=== PATIENT | female | born 1980 | race Caucasian/White ===

== ENCOUNTER → 2018-06-14 10:57 | Outpatient (CLI) | payer OTHER, SELFPAY ==
--- NOTE | 2018-06-14 11:03 | DI.RAD.S_ITS ---
PROCEDURE: XR CHEST 2V INDICATIONS: COUGH, WHEEZING, HOARSENESS TECHNIQUE: 2 views of the chest were acquired. COMPARISON: [facility], CHEST 2 VIEW, 04/17/2016, 14:10. [facility], CHEST 2 VIEW, 10/16/2014, 18:47. FINDINGS: Surgical changes and devices: None. Lungs and pleura: Lungs are difficult to accurately assess due to large body habitus but with reference to the older comparison films from several years ago no definite change has developed.. No pleural effusions or pneumothorax. Mediastinum: Mediastinal contours are normal. Heart size is normal. Bones and chest wall: No suspicious bony abnormalities. Soft tissues appear unremarkable. IMPRESSION: Large body habitus, and with reference to prior comparison studies from 2014 and 2016 there has been no definite change. The source of new cough and wheezing is not identified. Dictated by: Jarod Acosta M.D. on 06/14/2018 at 11:52 Approved by: Jardo Acosta M.D. on 06/14/2018 at 12:08
[2018-06-14 11:52] LABS: Add Manual Diff / Slide Review NO; Basophils Absolute Auto 100 /uL (0-100); Basophils Percent Auto 0.6 % (0-2); Eosinophils Absolute Auto 100 /uL (0-450); Eosinophils Percent Auto 1.8 % (2-4); Hematocrit 41.5 % (36-46); Hemoglobin 14.1 g/dL (12.0-16.0); Lymphocytes Absolute Auto 2300 /uL (1100-4500); Lymphocytes Percent Auto 29.7 % (25-40); Mean Corpuscular HGB Conc 33.9 % (30-36); Mean Corpuscular Hemoglobin 28.9 PG (26-34); Mean Corpuscular Volume 85.3 fL (80-100); Monocytes Absolute Auto 600 /uL (0-900); Neutrophils Absolute Auto 4800 /uL (1500-7000); Neutrophils Percent Auto 60.9 % (50-75); Platelet Count 428 X10^3/uL (150-400); Red Blood Cell Count 4.86 X10^6/uL (4.0-5.2); Red Cell Distribution Width 14.1 % (11.6-14.8); White Blood Cell Count 7.9 X10^3/uL (4.5-11.0)
[2018-06-14 12:23] LABS: Erythrocyte Sedimentation Rate 40 MM/HR (0-20)
[2018-06-16 17:54] LABS: Immunoglobulin E 20 kU/L (< 115)
== END ==
PROVIDERS: Family Provider Physician Assistant; PCP Physician Assistant; Visit Provider Physician Assistant Medical
DX: R05 Cough (principal); R06.02 Shortness of breath; R49.0 Dysphonia
CPT/HCPCS: 36415; 71046; 82785; 85025; 85651

== ENCOUNTER → 2018-06-24 08:37 | Outpatient (CLI) | payer OTHER, SELFPAY ==
[2018-06-24 09:51] LABS: Add Manual Diff / Slide Review NO; Basophils Absolute Auto 100 /uL (0-100); Basophils Percent Auto 0.9 % (0-2); Eosinophils Absolute Auto 100 /uL (0-450); Eosinophils Percent Auto 1.8 % (2-4); Hemoglobin 13.9 g/dL (12.0-16.0); Lymphocytes Absolute Auto 2500 /uL (1100-4500); Lymphocytes Percent Auto 34.7 % (25-40); Mean Corpuscular HGB Conc 33.8 % (30-36); Mean Corpuscular Hemoglobin 28.9 PG (26-34); Mean Corpuscular Volume 85.4 fL (80-100); Monocytes Absolute Auto 600 /uL (0-900); Monocytes Percent Auto 7.8 % (3-14); Neutrophils Absolute Auto 4000 /uL (1500-7000); Neutrophils Percent Auto 54.8 % (50-75); Platelet Count 407 X10^3/uL (150-400); Red Cell Distribution Width 13.9 % (11.6-14.8); White Blood Cell Count 7.3 X10^3/uL (4.5-11.0)
[2018-06-24 10:11] LABS: D Dimer < 200 ng/mL (<230)
[2018-06-24 10:12] LABS: Alanine Aminotransferase 25 IU/L (9-52); Albumin 3.9 g/dL (3.5-5.0); Albumin Globulin Ratio 1.1 (1.0-2.8); Alkaline Phosphatase 73 U/L (38-126); Aspartate Aminotransferase 19 IU/L (14-36); BUN Creatinine Ratio 18.3 (6-22); Bilirubin Total 0.7 mg/dL (0.2-1.3); Blood Urea Nitrogen 11 mg/dL (7-17); C-Reactive Protein Quant 1.8 mg/dL (<1.0); Calcium 8.8 mg/dL (8.4-10.2); Carbon Dioxide 27 mmol/L (22-32); Chloride 103 mmol/L (98-107); Estimated Glomerular Filt Rate > 60.0 mL/min (>60); Globulin 3.4 g/dL (1.7-4.1); Glucose 106 mg/dL (70-100); HEMOLYSIS < 15 (0-50); Potassium 3.7 mmol/L (3.4-5.1); Sodium 139 mmol/L (137-145); Total Protein 7.3 g/dL (6.3-8.2)
[2018-06-24 10:13] LABS: Rheumatoid Factor < 8.6 IU/mL (<12.0)
[2018-06-24 10:24] LABS: Erythrocyte Sedimentation Rate 48 MM/HR (0-20)
[2018-06-27 16:12] LABS: ANCA Screen Negative (Negative)
[2018-07-01 20:55] LABS: ANA Pattern Speckled; ANA Screen, IFA Positive (Negative)
== END ==
PROVIDERS: PCP Physician Assistant; Visit Provider Physician Assistant Medical
DX: R06.2 Wheezing (principal); R04.2 Hemoptysis
CPT/HCPCS: 36415; 80053; 85025; 85379; 85651; 86021; 86038; 86140; 86430

== ENCOUNTER → 2018-07-04 07:42 | Outpatient (CLI) | payer OTHER, SELFPAY ==
--- NOTE | 2018-07-04 | DI.CT.S_ITS ---
PROCEDURE: CT CHEST HIGH RESOLUTION INDICATIONS: HEMOPTYSIS TECHNIQUE: Noncontrast 1.0 and 5.0 mm thick contiguous axial sections from the pulmonary apex to the posterior costophrenic angles, with 7 mm thick coronal and sagittal MIP reformats. 1 mm thick dynamic expiratory images acquired through the upper, mid, and lower lungs. 1.0 mm thick axial sections acquired from the miguel to the posterior costophrenic angles in the prone end-inspiration position. For radiation dose reduction, the following was used: automated exposure control, adjustment of mA and/or kV according to patient size. COMPARISON: None. FINDINGS: Image quality: Excellent. Lungs: No groundglass opacities, cysts, nodules, bronchiectasis, or fibrosis. No parenchymal consolidations. Pleura: No pleural effusions or pneumothorax. Mediastinum: Heart size is normal. No pericardial effusion. Thoracic aorta and central pulmonary arteries are normal in size. Esophagus is normal in caliber. Bones and chest wall: No suspicious bony lesions. No vertebral body compression fractures. 1.2 cm circumferentially calcified left thyroid nodule. Abdomen: Visualized upper abdominal solid organs and bowel loops appear normal. IMPRESSION: 1. No evidence of interstitial lung disease. 2. 1.2 cm left thyroid nodule. Dictated by: Digna Alvarenga M.D. on 07/04/2018 at 8:25 Approved by: Digna Alvarenga M.D. on 07/04/2018 at 8:47
== END ==
PROVIDERS: PCP Physician Assistant; Visit Provider Physician Assistant Medical
DX: R04.2 Hemoptysis (principal); E04.1 Nontoxic single thyroid nodule
CPT/HCPCS: 71250

== ENCOUNTER → 2018-11-23 09:21 | Outpatient (CLI) | payer OTHER, SELFPAY ==
[2018-11-23 10:36] LABS: Add Manual Diff / Slide Review NO; Basophils Absolute Auto 0 /uL (0-100); Eosinophils Absolute Auto 100 /uL (0-450); Eosinophils Percent Auto 1.5 % (2-4); Hematocrit 40.5 % (36-46); Hemoglobin 14.1 g/dL (12.0-16.0); Lymphocytes Absolute Auto 1900 /uL (1100-4500); Lymphocytes Percent Auto 29.6 % (25-40); Mean Corpuscular HGB Conc 34.7 % (30-36); Mean Corpuscular Hemoglobin 29.8 PG (26-34); Mean Corpuscular Volume 85.7 fL (80-100); Monocytes Absolute Auto 1100 /uL (0-900); Monocytes Percent Auto 17.1 % (3-14); Neutrophils Absolute Auto 3300 /uL (1500-7000); Neutrophils Percent Auto 51.8 % (50-75); Platelet Count 419 X10^3/uL (150-400); Red Blood Cell Count 4.73 X10^6/uL (4.0-5.2); White Blood Cell Count 6.3 X10^3/uL (4.5-11.0)
[2018-11-23 10:57] LABS: Alanine Aminotransferase 18 IU/L (9-52); Albumin Globulin Ratio 1.1 (1.0-2.8); Alkaline Phosphatase 70 U/L (38-126); Aspartate Aminotransferase 21 IU/L (14-36); Blood Urea Nitrogen 12 mg/dL (7-17); Calcium 8.6 mg/dL (8.4-10.2); Carbon Dioxide 30 mmol/L (22-32); Chloride 101 mmol/L (98-107); Cholesterol 221 mg/dL (140-199); Estimated Glomerular Filt Rate > 60.0 mL/min (>60); Globulin 3.6 g/dL (1.7-4.1); Glucose 102 mg/dL (70-100); HDL Cholesterol 32 mg/dL (40-60); HEMOLYSIS 35 (0-50); LDL Cholesterol Calculated 167 mg/dL (<100); Potassium 4.2 mmol/L (3.4-5.1); Sodium 139 mmol/L (137-145); Total Protein 7.6 g/dL (6.3-8.2); Triglycerides 112 mg/dL (35-150)
[2018-11-23 11:25] LABS: Thyroid Stimulating Hormone 2.83 uIU/mL (0.47-4.68)
[2018-11-23 11:44] LABS: Vitamin B12 306 pg/mL (239-931)
== END ==
PROVIDERS: PCP Physician Assistant; Visit Provider Physician Assistant
DX: R20.2 Paresthesia of skin (principal); R26.9 Unspecified abnormalities of gait and mobility; R29.898 Other symptoms and signs involving the musculoskeletal system; R41.3 Other amnesia
CPT/HCPCS: 36415; 80053; 80061; 82607; 84443; 85025

== ENCOUNTER → 2018-12-26 06:06 | Outpatient (CLI) | payer OTHER, SELFPAY ==
--- NOTE | 2018-12-26 06:07 | DI.MRI.S_ITS ---
PROCEDURE: MR HEAD/BRAIN WO/W CON INDICATIONS: Weakness lower extrem R > L; parasthesias feet; diff w/gait TECHNIQUE: Noncontrast axial T1 spin echo, axial T2 fast spin echo, sagittal and axial FLAIR, coronal T2 fast spin echo, axial gradient echo, axial diffusion and ADC through the brain. After the administration of contrast, axial and coronal 3D VIBE or T1 spin echo with fat saturation through the brain. COMPARISON: None. FINDINGS: Image quality: Excellent. CSF Spaces: Basal cisterns are patent. No extra-axial fluid collections. Ventricles are normal in size and shape. Brain: No midline shift. No intracranial bleeds or masses. No abnormal intracranial enhancement. The brainstem appears normal. Diffusion-weighted images demonstrate no acute ischemic insults. No chronic ischemic insults. Normal intravascular flow voids are present. Skull and face: Calvarial marrow is normal in signal. Orbits appear normal. Bilateral maxillary sinus disease, right greater than left. IMPRESSION: No evidence of acute ischemia. No acute intracranial signal abnormality or enhancement. Bilateral maxillary sinus disease, right greater left. Dictated by: Tee Pichardo M.D. on 12/26/2018 at 8:23 Approved by: Tee Pichardo M.D. on 12/26/2018 at 8:27
== END ==
PROVIDERS: PCP Physician Assistant; Visit Provider Physician Assistant
DX: R20.2 Paresthesia of skin (principal); R26.9 Unspecified abnormalities of gait and mobility; R29.898 Other symptoms and signs involving the musculoskeletal system; R41.3 Other amnesia; J32.0 Chronic maxillary sinusitis
CPT/HCPCS: 70553

== ENCOUNTER → 2019-01-06 08:11 | Outpatient (CLI) | payer OTHER, SELFPAY ==
[2019-01-06 09:36] LABS: Cholesterol 119 mg/dL (140-199); HDL Cholesterol 31 mg/dL (40-60); LDL Cholesterol Calculated 72 mg/dL (<100); Triglycerides 82 mg/dL (35-150)
== END ==
PROVIDERS: PCP Physician Assistant; Visit Provider Physician Assistant
DX: E78.2 Mixed hyperlipidemia (principal)
CPT/HCPCS: 36415; 80061

== ENCOUNTER → 2019-02-22 11:44 | Outpatient (CLI) | payer OTHER, MEDICAID, SELFPAY ==
--- NOTE | 2019-02-22 11:47 | DI.RAD.S_ITS ---
PROCEDURE: XR LUMBAR SPINE 2-3V INDICATIONS: fall, SI joint pain, r/o bony abnormality TECHNIQUE: 3 views of the lumbar spine were acquired. COMPARISON: [facility], , L-SPINE WITHOUT CONTRAST, 02/01/2009, 9:08. FINDINGS: Bones: 5 [id number] vertebrae are present. There is trace retrolithesis of L2 on L3, L3 on L4. Moderate disc space narrowing is present at L4-5, L5-S1. Minimal L5-S1 foraminal narrowing. No vertebral body compression fractures. No suspicious bony lesions. Lucency is noted within the posterior aspect of the spinous process at L2 and L3. Soft tissues: Overlying bowel gas pattern is normal. No suspicious soft tissue calcifications. IMPRESSION: 1. Nondisplaced lucency at the posterior aspect of the spinous process of L2 and L3. This is suspected to be projectional. However, recommend correlation with point tenderness in this region as fracture cannot be definitively excluded given history of trauma. Dictated by: Micheline Stanford M.D. on 02/22/2019 at 11:05 Approved by: Micheline Stanford M.D. on 02/22/2019 at 11:10
== END ==
PROVIDERS: PCP Physician Assistant; Visit Provider Physician Assistant
DX: M54.5 Low back pain (principal); M48.061 Spinal stenosis, lumbar region without neurogenic claudication; M48.07 Spinal stenosis, lumbosacral region
CPT/HCPCS: 72100

== ENCOUNTER → 2019-05-22 10:18 | Outpatient (CLI) | payer OTHER, MEDICAID, SELFPAY | PROVIDERS: PCP Physician Assistant; Referring Provider Internal Medicine; Visit Provider Internal Medicine | DX: G35 Multiple sclerosis (principal) | CPT/HCPCS: 93005; 93010 ==

== ENCOUNTER → 2019-08-18 13:58 | Outpatient (CLI) | payer OTHER, MEDICAID, SELFPAY ==
[2019-08-19 10:08] LABS: Candida species Negative (Negative); Gardnerella vaginalis Negative (Negative); Trichomoas vaginalis Negative (Negative)
== END ==
PROVIDERS: PCP Student in an Organized Health Care Education/Training Program; Visit Provider Obstetrics & Gynecology
DX: N89.8 Other specified noninflammatory disorders of vagina (principal)
CPT/HCPCS: 87480; 87510; 87660

== ENCOUNTER → 2019-09-26 12:21 | Outpatient (CLI) | payer OTHER, MEDICAID, SELFPAY ==
--- NOTE | 2019-09-26 12:29 | DIET.PN ---
Dietary Progress Note Assessment: 38y F referred to nutrition for help managing weight c new onset MS and MS fatigue, pt is wheelchair using. Would like to lose weight to help c self-transferring. Usual Day: Wakes 9-930am waits 1hr to eat- 8oz, british muffin c cream cheese, berries c creamer (coconut milk), slimfast, [place] crunchy granola bar, cranberry juice keeps water nearby all the time (technology time-tv, computer), does food prep walks daily c walker and 45 minutes of exercises Lunch- crackers c cheese, sandwich- lettuce tomato, toasted bread, tuna fish, salmon c miracle whip, cheese and tomato sandwich, occ pb&j, water coffee in afternoon (coffee frappuccino c almond milk) sometimes c oatcakes D: stir scruggs, cabrera c brown rice, hash, dinner salad once per week watch TV snacks: thin dark chocolate cookies 9:30-midnight reads in bed sleeps c CPAP and sleeps well, 8-9 hours per night Has CSA in summer. Pt is adventurous eater, not much emotional eating. Pt keeps [employer] florecita record of food intake. Pt diet is generally healthy c reasonable portions. Diet reliant on carbohydrates c moderate intake F/V and lean protein. Pt exceeding daily limit of 20g added sugar consistently. B/c pt is unsteady on feet and reliant on wheelchair, less opportunity to move body or participate in cardiovascular activity which is complicated by MS fatigue. Pt currently in PT once per week. HT: 5/6 WT: 287# UBW: 280# Weight Goal: 250# BMI: 46.3 Interventions: 1. To support healthy weight and promote weight loss, educated pt on balanced plate using handout. Pt to model proportions with all meals and snacks for natural calorie control. 2. To support healthy weight, promote weight loss, and increase LBM, pt will increase cardiovascular activity daily as tolerated such as wheeling around block, seated workout videos. 3. To support healthy weight and promote weight loss, pt will start monitoring added sugar, trying to limit to no more than 20g per day. 4. To support neurological function for MS, pt will increase intake of healthy fats such as olive and avocado oil, avocados, ying seeds, and ground flaxseed. Monitoring/Evaluations: pt will call for f/u
== END ==
PROVIDERS: PCP Student in an Organized Health Care Education/Training Program; Referring Provider Student in an Organized Health Care Education/Training Program; Visit Provider Student in an Organized Health Care Education/Training Program
DX: G35 Multiple sclerosis (principal); E66.9 Obesity, unspecified; Z68.42 Body mass index [BMI] 45.0-49.9, adult; Z71.3 Dietary counseling and surveillance
CPT/HCPCS: 97802

== ENCOUNTER 2019-10-20 14:15 | Outpatient (RCR) | payer OTHER, MEDICAID, SELFPAY ==
--- NOTE | 2019-04-19 15:33 | PT.OIE ---
Current Diagnoses Multiple sclerosis (04/19/19) Visit Care Team Role Provider Type Alycia Farrar PA-C Primary Care Provider Advanced Cattle Care Worker Specialty: Medical Address: [address] [place] [address], [facility] [address], [place], [address] Email: [email or web address] Rufino Umaña MD Attending Provider Non-Staff Specialty: Psychiatry Address: [address] [place] [address], [facility] [address], [place], [address] Email: Physical Therapy Initial Evaluation PT-OP-A Visit Information Start: 04/19/19 15:25 Freq: Status: Active Protocol: Document 04/19/19 15:30 EG (Rec: 04/19/19 16:03 EG [email or web address]) Out-Patient Physical Therapy Visit Information Visit Information Visit Type Initial Evaluation Visit Note Mother accompanied patient Visit Start Time 10:30 Visit Stop Time 11:15 Total Visit Minutes 45 Visit Number 1 Number of BACK HOE MACHINE OPERATOR Visits 0 Evaluation Information Evaluation Date 04/19/19 Precautions Precautions Fall Risk Sensation Loss in bilateral LE PT-OP-B Current Condition Start: 04/19/19 15:25 Freq: Status: Active Protocol: Document 04/19/19 15:30 EG (Rec: 04/19/19 16:03 EG [email or web address]) Current Condition History of Current Condition Onset Date October 2018 Current Complaints Weakness/Instability with standing/transfers/walking History of Current Condition Patient is a 38 year old female who reports to physical therapy after being diagnosed with Multiple Sclerosis in February 2019. She has c/c of sensation and strength loss in both of her legs. Patient started feeling like she was walking like she was drunk in September of 2018. She started feeling like her legs felt heavy and stairs were starting to scare her at this time. Since then, she has had 2 falls - one in which she hurt her L knee and thought she has fractured her sacrum. Patient has since received an X-ray of this area and is following up with her PCP. She has pain at night from her hips down and at times has spasm in lower extremities. Patient reports that currently she is getting assistance from her aunt and parents but has been moving through the household and community primarily with a wheelchair. She is currently living in a day time basement with no stairs to enter. Patient is concerned about grab bars in the house and is looking at installation. She reports that she is currently showering at parent's house on shower chair. 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 She would like to gain more stability and confidence with her movements. 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 Current Functional Impairments (Reported) Functional Limitations- ADL's Shower chair needed for bathing Sleeping is painful in bilateral LE Functional Limitations- Mobility/Gait Assistance needed for bed mobility Grab bars needed to move in and out of bed Personal Factors Other Personal Factors That May Effect Past Laminectomy Therapy/Recovery BMI >30 Lives alone PT-OP-C Subjective Start: 04/19/19 15:25 Freq: Status: Active Protocol: Document 04/19/19 15:30 EG (Rec: 04/20/19 10:55 EG [email or web address]) Patient Questionnaires ABC- Activity Specific Balance Confidence Scale ABC Score 4.1 ABC Functional Impairment 80 to <100% Impaired (Score 1- 20) OP-PT Pain Assessment Pain Assessment Grid Paper Pain Assessment Grid Completed Yes: L low back pain - 2; L knee and foot - 2 Home Pain Medication Use Pain Medications Used Yes PT-OP-G Mobility & Gait Start: 04/19/19 15:25 Freq: Status: Active Protocol: Document 04/19/19 15:30 EG (Rec: 04/19/19 16:03 EG [email or web address]) OP Mobility Evaluation Bed Mobility Rolling I Supine to and from Sit min A Transfers Sit to Stand CGA Bed to Chair Transfers CGA Wheelchair Management Type of Wheelchair Manual PT-OP-H Neuro Start: 04/19/19 15:25 Freq: Status: Active Protocol: Document 04/19/19 15:30 EG (Rec: 04/19/19 16:03 EG [email or web address]) Sensation Evaluation Gross Sensation Sensation Description Numbness,Coldness,Heaviness Dermatome Impairments L2,L3,L4,L5,S1,S2 Comments Summary Comments Patient was able to feel moderate sensation throughout examination and she was able to correctly describe location of touch but does subjectively describe numbness and decreased sensation. Coordination Evaluation Lower Extremity Tests Right Heel on Castro Test Normal Performance Foot Tapping Test Normal Performance Left Heel on Castro Test Normal Performance Foot Tapping Test Normal Performance Comments Coordination Comments restricted mostly from weakness PT-OP-L Special Tests Start: 04/19/19 15:25 Freq: Status: Active Protocol: Document 04/19/19 15:30 EG (Rec: 04/20/19 07:26 EG [email or web address]) Special Tests Neural Special Tests- Lower Body Clonus Test Results + Comments non-fatiguing clonus on R PT-OP-M Strength Start: 04/19/19 15:25 Freq: Status: Active Protocol: Document 04/19/19 15:30 EG (Rec: 04/20/19 07:26 EG [email or web address]) Hip Strength Hip Manual Muscle Testing Left Flexion (L2) 3 Fair Abduction 4- Good- Adduction 4- Good- Right Flexion (L2) 3- Fair- Abduction 3+ Fair+ Adduction 4- Good- Knee Strength Knee Manual Muscle Testing Left Flexion (S2) 3+ Fair+ Extension (L3) 3 Fair Right Flexion (S2) 3+ Fair+ Extension (L3) 3 Fair Ankle/Foot Strength Ankle and Foot Manual Muscle Testing Right Dorsiflexion (L4) 3+ Fair+ Plantarflexion (S1) 3+ Fair+ Left Dorsiflexion (L4) 3+ Fair+ Plantarflexion (S1) 3+ Fair+ PT-OP-Q Treatments Start: 04/19/19 15:25 Freq: Status: Active Protocol: Document 04/19/19 15:30 EG (Rec: 04/20/19 10:59 EG [email or web address]) Therapeutic Exercises Supine Exercises Lumbar Rotations Supine Exercise Name Supine lumbar rotation Side bilateral Reps/Minutes 15x ea Comments HEP Long arc quad Supine Exercise Name Long arc quad with SLR Side bilateral Equipment Used bolster under knees Reps/Minutes 15x ea Comments HEP Sitting Exercises Seated marches Sitting Exercise Name Seated marches Side bilateral Reps/Minutes 15x each side Comments HEP Plantar/Dorsiflexion Sitting Exercise Name Plantar and Dorsiflexion in seated Side bilateral Reps/Minutes 20x Comments HEP Therapeutic Activity Therapeutic Activity Stand Pivot Transfer Name Stand Pivot Transfer Reps/Minutes 2 Comments Done with CGA PT-OP-T Assessment and Plan Start: 04/19/19 15:25 Freq: Status: Active Protocol: Document 04/19/19 15:30 EG (Rec: 04/20/19 12:26 EG [email or web address]) Physical Therapy Assessment Rehab Potential Rehabilitation Potential Good Evaluation Complexity Number of Personal Factors/Comorbidities 3 or More Number of Body Systems Impaired 4 or More Clinical Presentation at Evaluation Unstable Impairments Impairments Activity Tolerance,Balance, Coordination,Edema,Functional Activities,Functional Mobility ,Gait,Pain,Posture,ROM, Sensation,Strength,Transfers Other Concerns Fall Risk Yes - decreased sensation Barriers to Rehabilitation Medication side effects Goals Four Impairment Gait Short Term Goal (STG) Patient will walk 20 feet in / / bars in 2-4 weeks. STG Duration 2-4 weeks Scrap Hooker Goal (LTG) Patient will walk 100 feet with FWW in 6-8 weeks. LTG Duration 6-8 weeks Three Impairment Balance Short Term Goal (STG) Patient will tax investigator // bars for 3 minutes without loss of balance in 2 weeks. STG Duration 2 weeks Scrap Hooker Goal (LTG) Patient will stand with FWW for 5 minutes without loss of balance in 4-6 weeks. LTG Duration 4-6 weeks Two Impairment Functional Activity Short Term Goal (STG) Patient will move from seated to supine independently with ability to move both legs on to bed with assistance from strap in 3 weeks. STG Duration 3 weeks Scrap Hooker Goal (LTG) Patient will move from seated to supine independently without assistance from external device with ability to swing both legs on to bed with a controlled movement to supine in 5 weeks. LTG Duration 5 weeks. One Impairment Transfers Short Term Goal (STG) Patient will perform stand- pivot transfers independently with 90% confidence from wheelchair to bed in 4 weeks. STG Duration 4 weeks [facility] Goal (LTG) Patient will perform stand- pivot transfer independently with 100% confidence from wheelchair to bed in 6-8 weeks . Assessment Summary Assessment Patient is a 38 year old female with recent diagnosis of MS who presents to physical therapy with decreased LE strength bilaterally, decreased sensation in bilateral LE, and decreased stability with transfers. She is currently using the wheelchair as primary mode of transportation in the community and at home and is just beginning MS medication. Currently, symptom duration and continuity is unknown and will depend on medical intervention. Patient will benefit from strength training , balance training, transfer training, and gait training to help patient move throughout the house safely and with stability. Patient will also benefit from education on arrangements of the home setting to compensate from some loss of function due to the progressive disease. Patient may also need to be educated on orthotic fitting. Physical Therapy Plan Frequency and Duration Frequency of Treatment 2x/Week Duration of Treatment 8-10 weeks Plan of Care Start Date 04/19/19 Plan of Care End Date 06/28/19 Therapeutic Interventions Therapeutic Interventions Aquatic Therapy,Balance Training,Coordination Training ,Gait Training,Home Exercise Program,Neuromuscular Re- education,Orthotic/Prosthetic Management,Patient/Caregiver Education,Self-Care/Home Management,Therapeutic Activities,Therapeutic Exercises,Wheelchair Management Next Visit Focus/Plan Next Note Type Treatment Note Next Visit Plan Next treatment, assess standing and walking in // bars. Increase strength training exercises. Perform transfers from wheelchair to various surfaces. Lubna Gaines DPT, supervised all treatment performed by, and agreed with the plan of care, as performed by Kasia Mills, [facility].
--- NOTE | 2019-04-20 15:36 | PT.OPPOC ---
Physical, Occupational & Speech Therapy At [facility] Current Diagnoses Multiple sclerosis (04/19/19) Muscle weakness (generalized) (04/19/19) History of falling (04/19/19) Visit Care Team Role Provider Type Alycia Farrar PA-C Primary Care Provider Advanced Program Services Planner Specialty: Medical Address: [address] [place] [address], [facility] [address], [place], [address] Email: [email or web address] Rufino Umaña MD Attending Provider Non-Staff Specialty: Psychiatry Address: [address] [place] [address], [facility] [address], [place], [address] Email: Plan Of Care PT-OP-T Assessment and Plan Start: 04/19/19 15:25 Freq: Status: Active Protocol: Document 04/19/19 15:30 EG (Rec: 04/20/19 12:26 EG [email or web address]) Physical Therapy Assessment Rehab Potential Rehabilitation Potential Good Evaluation Complexity Number of Personal Factors/Comorbidities 3 or More Number of Body Systems Impaired 4 or More Clinical Presentation at Evaluation Unstable Impairments Impairments Activity Tolerance,Balance, Coordination,Edema,Functional Activities,Functional Mobility ,Gait,Pain,Posture,ROM, Sensation,Strength,Transfers Other Concerns Fall Risk Yes - decreased sensation Barriers to Rehabilitation Medication side effects Goals Four Impairment Gait Short Term Goal (STG) Patient will walk 20 feet in / / bars in 2-4 weeks. STG Duration 2-4 weeks Residential Nurse Goal (LTG) Patient will walk 100 feet with FWW in 6-8 weeks. LTG Duration 6-8 weeks Three Impairment Balance Short Term Goal (STG) Patient will casting assistant // bars for 3 minutes without loss of balance in 2 weeks. STG Duration 2 weeks Residential Nurse Goal (LTG) Patient will stand with FWW for 5 minutes without loss of balance in 4-6 weeks. LTG Duration 4-6 weeks Two Impairment Functional Activity Short Term Goal (STG) Patient will move from seated to supine independently with ability to move both legs on to bed with assistance from strap in 3 weeks. STG Duration 3 weeks Retirement Goal (LTG) Patient will move from seated to supine independently without assistance from external device with ability to swing both legs on to bed with a controlled movement to supine in 5 weeks. LTG Duration 5 weeks. One Impairment Transfers Short Term Goal (STG) Patient will perform stand- pivot transfers independently with 90% confidence from wheelchair to bed in 4 weeks. STG Duration 4 weeks Retirement Goal (LTG) Patient will perform stand- pivot transfer independently with 100% confidence from wheelchair to bed in 6-8 weeks . Assessment Summary Assessment Patient is a 38 year old female with recent diagnosis of MS who presents to physical therapy with decreased LE strength bilaterally, decreased sensation in bilateral LE, and decreased stability with transfers. She is currently using the wheelchair as primary mode of transportation in the community and at home and is just beginning MS medication. Currently, symptom duration and continuity is unknown and will depend on medical intervention. Patient will benefit from strength training , balance training, transfer training, and gait training to help patient move throughout the house safely and with stability. Patient will also benefit from education on arrangements of the home setting to compensate from some loss of function due to the progressive disease. Patient may also need to be educated on orthotic fitting. Physical Therapy Plan Frequency and Duration Frequency of Treatment 2x/Week Duration of Treatment 8-10 weeks Plan of Care Start Date 04/19/19 Plan of Care End Date 06/28/19 Therapeutic Interventions Therapeutic Interventions Aquatic Therapy,Balance Training,Coordination Training ,Gait Training,Home Exercise Program,Neuromuscular Re- education,Orthotic/Prosthetic Management,Patient/Caregiver Education,Self-Care/Home Management,Therapeutic Activities,Therapeutic Exercises,Wheelchair Management Next Visit Focus/Plan Next Note Type Treatment Note Next Visit Plan Next treatment, assess standing and walking in // bars. Increase strength training exercises. Perform transfers from wheelchair to various surfaces. Plan of Care Dates Plan of Care Start Date 04/19/19 Plan of Care End Date 06/28/19 ILubna DPT, supervised all treatment performed by, and agreed with the plan of care, as performed by [facility] Metzger. Electronically Signed by: Lubna Bazan, PT 04/20/19 [id number] Please Sign and Return: I have reviewed this Plan of Care and certify that the skilled therapy services above are required to meet the patient?s needs. Physician Signature Date Printed Name and Credentials Clinical Instructor Signature Printed Name and Credentials
--- NOTE | 2019-04-21 17:11 | PT.OTN ---
Current Diagnoses Multiple sclerosis (04/21/19) Muscle weakness (generalized) (04/21/19) History of falling (04/21/19) Physical Therapy Treatment Note PT-OP-A Visit Information Start: 04/19/19 15:25 Freq: Status: Active Protocol: Document 04/21/19 16:16 EG (Rec: 04/21/19 16:38 EG [email or web address]) Out-Patient Physical Therapy Visit Information Visit Information Visit Type Treatment Note Visit Start Time 13:00 Visit Stop Time 13:45 Total Visit Minutes 45 Visit Number 2 Number of METER/RELAY CRAFTSMAN Visits 0 PT-OP-B Current Condition Start: 04/19/19 15:25 Freq: Status: Active Protocol: Document 04/19/19 15:30 EG (Rec: 04/19/19 16:03 EG [email or web address]) Current Condition History of Current Condition Onset Date October 2018 Current Complaints Weakness/Instability with standing/transfers/walking History of Current Condition Patient is a 38 year old female who reports to physical therapy after being diagnosed with Multiple Sclerosis in February 2019. She has c/c of sensation and strength loss in both of her legs. Patient started feeling like she was walking like she was drunk in September of 2018. She started feeling like her legs felt heavy and stairs were starting to scare her at this time. Since then, she has had 2 falls - one in which she hurt her L knee and thought she has fractured her sacrum. Patient has since recieved an X-ray of this area and is following up with her PCP. She has pain at night from her hips down and at times has spasm in lower extremities. Patient reports that currently she is getting assistance from her aunt and parents but has been moving through the household and community primarily with a wheelchair. She is currently living in a day time basement with no stairs to enter. Patient is concerned about grab bars in the house and is looking at installation. She reports that she is currently showering at parent's house on shower chair. 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 She would like to gain more stability and confidence with her movements. 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 Current Functional Impairments (Reported) Functional Limitations- ADL's Shower chair needed for bathing Sleeping is painful in bilateral LE Functional Limitations- Mobility/Gait Assistance needed for bed mobility Grab bars needed to move in and out of bed Personal Factors Other Personal Factors That May Effect Past Laminectomy Therapy/Recovery BMI >30 Lives alone PT-OP-C Subjective Start: 04/19/19 15:25 Freq: Status: Active Protocol: Document 04/21/19 16:16 EG (Rec: 04/21/19 16:38 EG [email or web address]) OP-PT Subjective Patient Comments Patient Comments Patient reported that yesterday she was moving from the bathroom to her bed in her FWW with her aunt and she fell to the ground because her legs gave out and her arms could not support her anymore. She was able to crawl to the bed and pull herself up but did not do anymore of her exercises. The patient also reported that she was going to a play [employer] but was staying at her parents house because she will be able to use the wheelchair in to the bathroom which will be nice because she thinks that she will be tired after PT today. Patient Reported Progress Same PT-OP-G Mobility & Gait Start: 04/19/19 15:25 Freq: Status: Active Protocol: Document 04/19/19 15:30 EG (Rec: 04/19/19 16:03 EG [email or web address]) OP Mobility Evaluation Bed Mobility Rolling I Supine to and from Sit min A Transfers Sit to Stand CGA Bed to Chair Transfers CGA Wheelchair Management Type of Wheelchair Manual PT-OP-H Neuro Start: 04/19/19 15:25 Freq: Status: Active Protocol: Document 04/21/19 16:16 EG (Rec: 04/21/19 16:43 EG [email or web address]) Sensation Evaluation Gross Sensation Gross Sensation Left LE Impaired,Right LE Impaired Dermatome Impairments L4,L5,S1 Comments Summary Comments patient could not feel monofilament on bilateral feet throughout L4-S1. Patient did not have proprioceptive awareness of bilateral Great toe when passively flexed or extended. PT-OP-L Special Tests Start: 04/19/19 15:25 Freq: Status: Active Protocol: Document 04/19/19 15:30 EG (Rec: 04/20/19 07:26 EG [email or web address]) Special Tests Neural Special Tests- Lower Body Clonus Test Results + Comments non-fatiguing clonus on R PT-OP-M Strength Start: 04/19/19 15:25 Freq: Status: Active Protocol: Document 04/19/19 15:30 EG (Rec: 04/20/19 07:26 EG [email or web address]) Hip Strength Hip Manual Muscle Testing Left Flexion (L2) 3 Fair Abduction 4- Good- Adduction 4- Good- Right Flexion (L2) 3- Fair- Abduction 3+ Fair+ Adduction 4- Good- Knee Strength Knee Manual Muscle Testing Left Flexion (S2) 3+ Fair+ Extension (L3) 3 Fair Right Flexion (S2) 3+ Fair+ Extension (L3) 3 Fair Ankle/Foot Strength Ankle and Foot Manual Muscle Testing Right Dorsiflexion (L4) 3+ Fair+ Plantarflexion (S1) 3+ Fair+ Left Dorsiflexion (L4) 3+ Fair+ Plantarflexion (S1) 3+ Fair+ PT-OP-Q Treatments Start: 04/19/19 15:25 Freq: Status: Active Protocol: Document 04/21/19 16:16 EG (Rec: 04/21/19 16:38 EG [email or web address]) Therapeutic Exercises Sitting Exercises Scapular Retractions Sitting Exercise Name Scapular Retraction Reps/Minutes 10x knee extension Sitting Exercise Name Seated knee extension Side bilateral Resistance manual Reps/Minutes 5x each side Comments L weaker than R Plantar/Dorsiflexion Sitting Exercise Name Plantar and Dorsiflexion in seated Side bilateral Reps/Minutes 20x Comments HEP Therapeutic Activity Therapeutic Activity Standing Balance Name Standing Balance in // bars Reps/Minutes 20 sec 5x Comments Held on to // bars with standing. Gait belt used with WC behind patient. multiple bouts of knees giving out while standing. Sit to solid center winder // Bars Name Sit to solid center winder // Bars Reps/Minutes 5x Comments Pushed off wheelchair arms and held on to // bars when standing. Gait Training Gait Activity Walking in // Bars Description 5 steps in // bars Device Used // bars Level of Assistance CGA Distance/Duration 3 feet Treatment Focus Assessment of balance of gait in // bars Comments WC behind - gait belt on. Arm fatigue with bilateral knees buckling PT-OP-T Assessment and Plan Start: 04/19/19 15:25 Freq: Status: Active Protocol: Document 04/21/19 16:16 EG (Rec: 04/21/19 16:38 EG [email or web address]) Physical Therapy Assessment Assessment Summary Assessment Patient's symptoms are similar to assessment and strength in legs have not progressed. Proprioception was assessed and was poor with patient not having ability to recognize great toe location in space. Monofilament testing was also done and patient did have decreased sensation in bilateral feet. Patient does have significant stength difference in R leg compared to L leg. Continual seated strengthening should be done to help with stability when standing. patient puts significant weight through arms when standing in // bars and should work on stability and balance before progressing to walking with FWW. patient should continue to work on transfers and education on modifications at home until symptoms are taken care of medically. Patient did bring in FWW and this was too short for her. Patient was educated on correct height of FWW. Physical Therapy Plan Next Visit Focus/Plan Next Note Type Treatment Note Next Visit Plan LE strengthening. Standing balance in // bars. Transfer training. Education on home modifications. Lubna Gaines DPT, supervised all treatment performed by, and agreed with the plan of care, as performed by [facility].
--- NOTE | 2019-04-26 16:32 | PT.OTN ---
Current Diagnoses Multiple sclerosis (04/26/19) Muscle weakness (generalized) (04/26/19) History of falling (04/26/19) Physical Therapy Treatment Note PT-OP-A Visit Information Start: 04/19/19 15:25 Freq: Status: Active Protocol: Document 04/26/19 14:54 EG (Rec: 04/26/19 15:07 EG [email or web address]) Out-Patient Physical Therapy Visit Information Visit Information Visit Type Treatment Note Visit Start Time 10:30 Visit Stop Time 11:15 Total Visit Minutes 45 Visit Number 3 Number of SCREENER AND BLENDER Visits 0 PT-OP-B Current Condition Start: 04/19/19 15:25 Freq: Status: Active Protocol: Document 04/19/19 15:30 EG (Rec: 04/19/19 16:03 EG [email or web address]) Current Condition History of Current Condition Onset Date October 2018 Current Complaints Weakness/Instability with standing/transfers/walking History of Current Condition Patient is a 38 year old female who reports to physical therapy after being diagnosed with Multiple Sclerosis in February 2019. She has c/c of sensation and strength loss in both of her legs. Patient started feeling like she was walking like she was drunk in September of 2018. She started feeling like her legs felt heavy and stairs were starting to scare her at this time. Since then, she has had 2 falls - one in which she hurt her L knee and thought she has fractured her sacrum. Patient has since recieved an X-ray of this area and is following up with her PCP. She has pain at night from her hips down and at times has spasm in lower extremities. Patient reports that currently she is getting assistance from her aunt and parents but has been moving through the household and community primarily with a wheelchair. She is currently living in a day time basement with no stairs to enter. Patient is concerned about grab bars in the house and is looking at installation. She reports that she is currently showering at parent's house on shower chair. 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 She would like to gain more stability and confidence with her movements. 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 Current Functional Impairments (Reported) Functional Limitations- ADL's Shower chair needed for bathing Sleeping is painful in bilateral LE Functional Limitations- Mobility/Gait Assistance needed for bed mobility Grab bars needed to move in and out of bed Personal Factors Other Personal Factors That May Effect Past Laminectomy Therapy/Recovery BMI >30 Lives alone PT-OP-C Subjective Start: 04/19/19 15:25 Freq: Status: Active Protocol: Document 04/26/19 14:54 EG (Rec: 04/26/19 15:07 EG [email or web address]) OP-PT Subjective Patient Comments Patient Comments Patient reported that she has not started her medication yet because she has to make an appointment with the Neuro Opthamologist to get her vision checked and has to go to get an EKG with another MD to take the medication there before starting on the medication to monitor the reaction of her heart rate after taking the medication. Patient felt tired after last PT session and was feeling slightly tired today. Patient was given new FWW which she felt was much more supportive after practicing standing with it. PT-OP-G Mobility & Gait Start: 04/19/19 15:25 Freq: Status: Active Protocol: Document 04/19/19 15:30 EG (Rec: 04/19/19 16:03 EG [email or web address]) OP Mobility Evaluation Bed Mobility Rolling I Supine to and from Sit min A Transfers Sit to Stand CGA Bed to Chair Transfers CGA Wheelchair Management Type of Wheelchair Manual PT-OP-H Neuro Start: 04/19/19 15:25 Freq: Status: Active Protocol: Document 04/21/19 16:16 EG (Rec: 04/21/19 16:43 EG [email or web address]) Sensation Evaluation Gross Sensation Gross Sensation Left LE Impaired,Right LE Impaired Dermatome Impairments L4,L5,S1 Comments Summary Comments patient could not feel monofilament on bilateral feet throughout L4-S1. Patient did not have proprioceptive awareness of bilateral Great toe when passively flexed or extended. PT-OP-L Special Tests Start: 04/19/19 15:25 Freq: Status: Active Protocol: Document 04/19/19 15:30 EG (Rec: 04/20/19 07:26 EG [email or web address]) Special Tests Neural Special Tests- Lower Body Clonus Test Results + Comments non-fatiguing clonus on R PT-OP-M Strength Start: 04/19/19 15:25 Freq: Status: Active Protocol: Document 04/19/19 15:30 EG (Rec: 04/20/19 07:26 EG [email or web address]) Hip Strength Hip Manual Muscle Testing Left Flexion (L2) 3 Fair Abduction 4- Good- Adduction 4- Good- Right Flexion (L2) 3- Fair- Abduction 3+ Fair+ Adduction 4- Good- Knee Strength Knee Manual Muscle Testing Left Flexion (S2) 3+ Fair+ Extension (L3) 3 Fair Right Flexion (S2) 3+ Fair+ Extension (L3) 3 Fair Ankle/Foot Strength Ankle and Foot Manual Muscle Testing Right Dorsiflexion (L4) 3+ Fair+ Plantarflexion (S1) 3+ Fair+ Left Dorsiflexion (L4) 3+ Fair+ Plantarflexion (S1) 3+ Fair+ PT-OP-Q Treatments Start: 04/19/19 15:25 Freq: Status: Active Protocol: Document 04/26/19 14:54 EG (Rec: 04/26/19 15:07 EG [email or web address]) Therapeutic Exercises Sitting Exercises Hamstring Curl Sitting Exercise Name Hamstring Curl Side bilateral Equipment Used Level 3 Reps/Minutes 10x knee extension Sitting Exercise Name Seated knee extension Side bilateral Reps/Minutes 10x each side Comments R slightly sronger and more controlled today Plantar/Dorsiflexion Sitting Exercise Name Plantar and Dorsiflexion in seated Side bilateral Reps/Minutes 10x Comments HEP Other Exercises Theracane Introduction Other Exercise Name Self massage with theracane Reps/Minutes 2 min Comments Intro to theracane for shoulders Therapeutic Activity Therapeutic Activity Sit to Stand with FWW Name STS with FWW Reps/Minutes 5x Comments Gait belt on with W/C behind. Deep breaths in standing. Gait Training Gait Activity Weight shift in // bars Description Weight shift in // bars Device Used // bars Level of Assistance min A Surface carpet Treatment Focus proprioception Comments step fwd and step back 5x each leg. Work on lifting toe and placing foot accurately. Walking with FWW Description Walking with FWW Device Used FWW Level of Assistance min A Surface carpet Distance/Duration 4x10 feet Treatment Focus stability and safety with new FWW Comments pt bathroom about 10 feet away from bed. Worked on walking this distance multiple times to increase strength. pt felt like legs were going to give out at the end of each walk. PT-OP-T Assessment and Plan Start: 04/19/19 15:25 Freq: Status: Active Protocol: Document 04/26/19 14:54 EG (Rec: 04/26/19 15:07 EG [email or web address]) Physical Therapy Assessment Assessment Summary Assessment Patient continues to have weakness in bilateral LE and inability to know where LE is in space. Patient's new FWW does fit her musch better and patient feels safer walking in this to her bathroom. Continual LE strengthening should be done to increase distance patient can walk without losing stability in the legs. Proprioception training should also be continued to increase patient' s awareness of LE when walking and taking steps. Physical Therapy Plan Next Visit Focus/Plan Next Note Type Treatment Note Next Visit Plan Standing balance in // bars with weight shift and continual practice of bringing one leg forward and back. Possibly step over hurdles and back to make sure leg is going high enough. Continue practice walking with FWW. ILubna DPT, supervised all treatment performed by, and agreed with the plan of care, as performed by Kasia Mills, [facility].
--- NOTE | 2019-04-28 16:37 | PT.OTN ---
Current Diagnoses Multiple sclerosis (04/28/19) Muscle weakness (generalized) (04/28/19) History of falling (04/28/19) Physical Therapy Treatment Note PT-OP-A Visit Information Start: 04/19/19 15:25 Freq: Status: Active Protocol: Document 04/28/19 15:47 EG (Rec: 04/28/19 16:00 EG [email or web address]) Out-Patient Physical Therapy Visit Information Visit Information Visit Type Treatment Note Visit Start Time 14:30 Visit Stop Time 15:15 Total Visit Minutes 45 Visit Number 4 Number of IT PROGRAMMER ANALYST Visits 0 PT-OP-B Current Condition Start: 04/19/19 15:25 Freq: Status: Active Protocol: Document 04/19/19 15:30 EG (Rec: 04/19/19 16:03 EG [email or web address]) Current Condition History of Current Condition Onset Date October 2018 Current Complaints Weakness/Instability with standing/transfers/walking History of Current Condition Patient is a 38 year old female who reports to physical therapy after being diagnosed with Multiple Sclerosis in February 2019. She has c/c of sensation and strength loss in both of her legs. Patient started feeling like she was walking like she was drunk in September of 2018. She started feeling like her legs felt heavy and stairs were starting to scare her at this time. Since then, she has had 2 falls - one in which she hurt her L knee and thought she has fractured her sacrum. Patient has since recieved an X-ray of this area and is following up with her PCP. She has pain at night from her hips down and at times has spasm in lower extremities. Patient reports that currently she is getting assistance from her aunt and parents but has been moving through the household and community primarily with a wheelchair. She is currently living in a day time basement with no stairs to enter. Patient is concerned about grab bars in the house and is looking at installation. She reports that she is currently showering at parent's house on shower chair. 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 She would like to gain more stability and confidence with her movements. 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 Current Functional Impairments (Reported) Functional Limitations- ADL's Shower chair needed for bathing Sleeping is painful in bilateral LE Functional Limitations- Mobility/Gait Assistance needed for bed mobility Grab bars needed to move in and out of bed Personal Factors Other Personal Factors That May Effect Past Laminectomy Therapy/Recovery BMI >30 Lives alone PT-OP-C Subjective Start: 04/19/19 15:25 Freq: Status: Active Protocol: Document 04/28/19 15:47 EG (Rec: 04/28/19 16:00 EG [email or web address]) OP-PT Subjective Patient Comments Patient Comments Patient reported that she was very tired and drained after last PT appointment. This lasted until ricco next day. Patient also reported that she is worried she has sprained her R ankle and that she thinks it is constantly rolling when she places weight through it during transfers at home. Patient said she was not able to make appointment with the Neuro Opthamologist until the end of May but she is on the wait list. She is wondering if putting PT to 1x/ week would be best until she can progress medically. PT-OP-G Mobility & Gait Start: 04/19/19 15:25 Freq: Status: Active Protocol: Document 04/19/19 15:30 EG (Rec: 04/19/19 16:03 EG [email or web address]) OP Mobility Evaluation Bed Mobility Rolling I Supine to and from Sit min A Transfers Sit to Stand CGA Bed to Chair Transfers CGA Wheelchair Management Type of Wheelchair Manual PT-OP-H Neuro Start: 04/19/19 15:25 Freq: Status: Active Protocol: Document 04/21/19 16:16 EG (Rec: 04/21/19 16:43 EG [email or web address]) Sensation Evaluation Gross Sensation Gross Sensation Left LE Impaired,Right LE Impaired Dermatome Impairments L4,L5,S1 Comments Summary Comments patient could not feel monofilament on bilateral feet throughout L4-S1. Patient did not have proprioceptive awareness of bilateral Great toe when passively flexed or extended. PT-OP-L Special Tests Start: 04/19/19 15:25 Freq: Status: Active Protocol: Document 04/19/19 15:30 EG (Rec: 04/20/19 07:26 EG [email or web address]) Special Tests Neural Special Tests- Lower Body Clonus Test Results + Comments non-fatiguing clonus on R PT-OP-M Strength Start: 04/19/19 15:25 Freq: Status: Active Protocol: Document 04/19/19 15:30 EG (Rec: 04/20/19 07:26 EG [email or web address]) Hip Strength Hip Manual Muscle Testing Left Flexion (L2) 3 Fair Abduction 4- Good- Adduction 4- Good- Right Flexion (L2) 3- Fair- Abduction 3+ Fair+ Adduction 4- Good- Knee Strength Knee Manual Muscle Testing Left Flexion (S2) 3+ Fair+ Extension (L3) 3 Fair Right Flexion (S2) 3+ Fair+ Extension (L3) 3 Fair Ankle/Foot Strength Ankle and Foot Manual Muscle Testing Right Dorsiflexion (L4) 3+ Fair+ Plantarflexion (S1) 3+ Fair+ Left Dorsiflexion (L4) 3+ Fair+ Plantarflexion (S1) 3+ Fair+ PT-OP-Q Treatments Start: 04/19/19 15:25 Freq: Status: Active Protocol: Document 04/28/19 15:47 EG (Rec: 04/28/19 16:00 EG [email or web address]) Therapeutic Exercises Supine Exercises Hooklying Abduction/Adduction Supine Exercise Name Unilateral hooklying abduction /adduction Side bilateral Reps/Minutes 5x each way each leg Comments taps to activate muscle Sitting Exercises Wrist flexion and extension stretch Sitting Exercise Name wrist flexion and extension stretch Reps/Minutes hold for 30 seconds Shoulder and Wrist Rolls Reps/Minutes 5x Lumbar ROM Sitting Exercise Name flexion, extension, lateral flexion, rotation (lumbar and cervical) Reps/Minutes move with breath; 5x each way Comments sustained hold with lateral flexion and rotation Manual Therapy Treatment Manual Techniques Soft tissue lengthening PROM Type PROM hamstring/hip flexion/ lumbar rotation Reps/Duration hold for 60-90 seconds PT-OP-T Assessment and Plan Start: 04/19/19 15:25 Freq: Status: Active Protocol: Document 04/28/19 15:47 EG (Rec: 04/28/19 16:00 EG [email or web address]) Physical Therapy Assessment Assessment Summary Assessment Patient continues to have lower extremity weakness that seems to be progressing on the R side. Patient fatigues very quickly and therapeutic exercise and gait training should be scaled back. Patient will progress to 1x/week to maintain energy conservation throughout the week until medically stable. Important to continue to assess ankle stability and progression of symptoms to consider an AFO for the patient. Physical Therapy Plan Next Visit Focus/Plan Next Note Type Treatment Note Next Visit Plan Standing balance in // bars with weight shift and continual practice of bringing one leg forward and back. Possibly step over hurdles and back to make sure leg is going high enough. Continue practice walking with FWW as energy tolerates
--- NOTE | 2019-05-05 13:00 | PT.OTN ---
Current Diagnoses Multiple sclerosis (05/05/19) Muscle weakness (generalized) (05/05/19) History of falling (05/05/19) Physical Therapy Treatment Note PT-OP-A Visit Information Start: 04/19/19 15:25 Freq: Status: Active Protocol: Document 05/05/19 12:14 SP (Rec: 05/05/19 13:44 SP [id number]) Out-Patient Physical Therapy Visit Information Visit Information Visit Type Treatment Note Visit Start Time 12:15 Visit Stop Time 13:00 Total Visit Minutes 45 Visit Number 5 Number of IN FLIGHT REFUELING OPERATOR Visits 1 PT-OP-B Current Condition Start: 04/19/19 15:25 Freq: Status: Active Protocol: Document 04/19/19 15:30 EG (Rec: 04/19/19 16:03 EG [email or web address]) Current Condition History of Current Condition Onset Date October 2018 Current Complaints Weakness/Instability with standing/transfers/walking History of Current Condition Patient is a 38 year old female who reports to physical therapy after being diagnosed with Multiple Sclerosis in February 2019. She has c/c of sensation and strength loss in both of her legs. Patient started feeling like she was walking like she was drunk in September of 2018. She started feeling like her legs felt heavy and stairs were starting to scare her at this time. Since then, she has had 2 falls - one in which she hurt her L knee and thought she has fractured her sacrum. Patient has since recieved an X-ray of this area and is following up with her PCP. She has pain at night from her hips down and at times has spasm in lower extremities. Patient reports that currently she is getting assistance from her aunt and parents but has been moving through the household and community primarily with a wheelchair. She is currently living in a day time basement with no stairs to enter. Patient is concerned about grab bars in the house and is looking at installation. She reports that she is currently showering at parent's house on shower chair. 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 She would like to gain more stability and confidence with her movements. 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 Current Functional Impairments (Reported) Functional Limitations- ADL's Shower chair needed for bathing Sleeping is painful in bilateral LE Functional Limitations- Mobility/Gait Assistance needed for bed mobility Grab bars needed to move in and out of bed Personal Factors Other Personal Factors That May Effect Past Laminectomy Therapy/Recovery BMI >30 Lives alone PT-OP-C Subjective Start: 04/19/19 15:25 Freq: Status: Active Protocol: Document 05/05/19 12:14 SP (Rec: 05/05/19 13:44 SP [id number]) OP-PT Subjective Patient Comments Patient Comments Pt stated compliant with HEP supine and sitting exercises and sit to stands at corner of kitchen counter front and w/c parked behind for safety like does in PT(loaned from [employer]). Pt stated she was walking out of bathroom early last week (mon or ) with FWW and realized parked w /c to close to doorway and had a hardtimes getting around and LEs gave way but was able to safely sliding down wall to the floor needed to call forensic accountant to help her get back in the chair. PT-OP-G Mobility & Gait Start: 04/19/19 15:25 Freq: Status: Active Protocol: Document 04/19/19 15:30 EG (Rec: 04/19/19 16:03 EG [email or web address]) OP Mobility Evaluation Bed Mobility Rolling I Supine to and from Sit min A Transfers Sit to Stand CGA Bed to Chair Transfers CGA Wheelchair Management Type of Wheelchair Manual PT-OP-H Neuro Start: 04/19/19 15:25 Freq: Status: Active Protocol: Document 04/21/19 16:16 EG (Rec: 04/21/19 16:43 EG [email or web address]) Sensation Evaluation Gross Sensation Gross Sensation Left LE Impaired,Right LE Impaired Dermatome Impairments L4,L5,S1 Comments Summary Comments patient could not feel monofilament on bilateral feet throughout L4-S1. Patient did not have proprioceptive awareness of bilateral Great toe when passively flexed or extended. PT-OP-L Special Tests Start: 04/19/19 15:25 Freq: Status: Active Protocol: Document 04/19/19 15:30 EG (Rec: 04/20/19 07:26 EG [email or web address]) Special Tests Neural Special Tests- Lower Body Clonus Test Results + Comments non-fatiguing clonus on R PT-OP-M Strength Start: 04/19/19 15:25 Freq: Status: Active Protocol: Document 04/19/19 15:30 EG (Rec: 04/20/19 07:26 EG [email or web address]) Hip Strength Hip Manual Muscle Testing Left Flexion (L2) 3 Fair Abduction 4- Good- Adduction 4- Good- Right Flexion (L2) 3- Fair- Abduction 3+ Fair+ Adduction 4- Good- Knee Strength Knee Manual Muscle Testing Left Flexion (S2) 3+ Fair+ Extension (L3) 3 Fair Right Flexion (S2) 3+ Fair+ Extension (L3) 3 Fair Ankle/Foot Strength Ankle and Foot Manual Muscle Testing Right Dorsiflexion (L4) 3+ Fair+ Plantarflexion (S1) 3+ Fair+ Left Dorsiflexion (L4) 3+ Fair+ Plantarflexion (S1) 3+ Fair+ PT-OP-Q Treatments Start: 04/19/19 15:25 Freq: Status: Active Protocol: Document 05/05/19 12:14 SP (Rec: 05/05/19 13:44 SP [id number]) Therapeutic Exercises Supine Exercises HS stretch Side bilateral Resistance manual Reps/Minutes 20 sec x2 Hooklying Abduction/Adduction Supine Exercise Name Unilateral hooklying abduction /adduction Side bilateral Reps/Minutes 5x each way each leg Comments taps to activate muscle, assisted Keep stationary leg support for other mov Lumbar Rotations Supine Exercise Name Supine lumbar rotation Side bilateral Reps/Minutes 15x ea Comments HEP Long arc quad Supine Exercise Name Long arc quad with SLR Side bilateral Equipment Used bolster under knees Reps/Minutes 15x ea Comments HEP Sitting Exercises hip abd TB Resistance L 1 TB Reps/Minutes 2x10 Comments slow pacing control concentric/eccentric hip add Resistance small ball Reps/Minutes 5 sec hold x10 knee extension Sitting Exercise Name Seated knee extension Side bilateral Reps/Minutes 10x each side Comments R slightly stronger and more controlled today Seated marches Sitting Exercise Name Seated marches Side bilateral Reps/Minutes 15x each side Comments HEP Plantar/Dorsiflexion Sitting Exercise Name Plantar and Dorsiflexion in seated (HRTR) Side bilateral Reps/Minutes 10x Comments HEP Therapeutic Activity Therapeutic Activity Standing Balance Name Standing Balance in // bars Reps/Minutes x3 Comments Brief hands hover // bars WBOS and contact with standing. Gait belt used with WC behind patient. multiple bouts of unsteadiness but knees not buckling while standing today. Sit to casket inspector // Bars Name Sit to casket inspector // Bars Reps/Minutes 5x Comments Pushed off wheelchair arms and held on to // bars when standing. Stand Pivot Transfer Name Stand Pivot Transfer Reps/Minutes 2 Comments Done with SBA Gait Training Gait Activity Weight shift in // bars Description Weight shift in // bars Device Used // bars, gait belt Level of Assistance CG- min A Surface carpet Treatment Focus proprioception Comments step fwd and step back 5x each leg. Work on lifting toe and placing foot accurately. Walking in // Bars Description foward/backward full length // bars Device Used // bars w/ w/c follow Level of Assistance CGA Distance/Duration 10 ft x2 sets (seated rest between) Treatment Focus Assessment of balance of gait in // bars Comments WC behind- BLE unsteady, L knee buckled end of 2nd set PT-OP-T Assessment and Plan Start: 04/19/19 15:25 Freq: Status: Active Protocol: Document 05/05/19 12:14 SP (Rec: 05/05/19 13:44 SP [id number]) Physical Therapy Assessment Goals Four Impairment Gait Short Term Goal (STG) Patient will walk 20 feet in / / bars in 2-4 weeks. STG Duration 2-4 weeks Penitentiary Goal (LTG) Patient will walk 100 feet with FWW in 6-8 weeks. LTG Duration 6-8 weeks Three Impairment Balance Short Term Goal (STG) Patient will shoemaking finisher // bars for 3 minutes without loss of balance in 2 weeks. STG Duration 2 weeks Networking Technology Instructor Goal (LTG) Patient will stand with FWW for 5 minutes without loss of balance in 4-6 weeks. LTG Duration 4-6 weeks Two Impairment Functional Activity Short Term Goal (STG) Patient will move from seated to supine independently with ability to move both legs on to bed with assistance from strap in 3 weeks. STG Duration 3 weeks Networking Technology Instructor Goal (LTG) Patient will move from seated to supine independently without assistance from external device with ability to swing both legs on to bed with a controlled movement to supine in 5 weeks. LTG Duration 5 weeks. One Impairment Transfers Short Term Goal (STG) Patient will perform stand- pivot transfers independently with 90% confidence from wheelchair to bed in 4 weeks. STG Duration 4 weeks Networking Technology Instructor Goal (LTG) Patient will perform stand- pivot transfer independently with 100% confidence from wheelchair to bed in 6-8 weeks . Assessment Summary Assessment Pt improved in standing tolerance today, was able to stand with briefly with no contact //bars WBOS then contact little longer (did not time), and walk full length of //bars foward/backward (w/c followed by family member). Added hip add with ball and hip abd with TB for assist in strengthening to HEP. Pt had good tolerance to tx and was pleased able to do more today and added exercises in sitting . Physical Therapy Plan Frequency and Duration Frequency of Treatment 2x/Week Duration of Treatment 8-10 weeks Plan of Care Start Date 04/19/19 Plan of Care End Date 06/28/19 Therapeutic Interventions Therapeutic Interventions Aquatic Therapy,Balance Training,Coordination Training ,Gait Training,Home Exercise Program,Neuromuscular Re- education,Orthotic/Prosthetic Management,Patient/Caregiver Education,Self-Care/Home Management,Therapeutic Activities,Therapeutic Exercises,Wheelchair Management Next Visit Focus/Plan Next Note Type Treatment Note Next Visit Plan Assess added HEP hip add, abd resistance, continue gait in //bars and use of FWW. Continue per PT POC: Standing balance in // bars with weight shift and continual practice of bringing one leg forward and back. Possibly step over hurdles and back to make sure leg is going high enough. Continue practice walking with FWW as energy tolerates
--- NOTE | 2019-05-17 16:32 | PT.OTN ---
Current Diagnoses Multiple sclerosis (05/17/19) Muscle weakness (generalized) (05/17/19) History of falling (05/17/19) Physical Therapy Treatment Note PT-OP-A Visit Information Start: 04/19/19 15:25 Freq: Status: Active Protocol: Document 05/17/19 10:30 EG (Rec: 05/17/19 16:21 EG [id number]) Out-Patient Physical Therapy Visit Information Visit Information Visit Type Treatment Note Visit Start Time 10:30 Visit Stop Time 11:15 Total Visit Minutes 45 Visit Number 6 Number of HIGHER EDUCATION ADMINISTRATOR Visits 0 PT-OP-B Current Condition Start: 04/19/19 15:25 Freq: Status: Active Protocol: Document 04/19/19 15:30 EG (Rec: 04/19/19 16:03 EG [email or web address]) Current Condition History of Current Condition Onset Date October 2018 Current Complaints Weakness/Instability with standing/transfers/walking History of Current Condition Patient is a 38 year old female who reports to physical therapy after being diagnosed with Multiple Sclerosis in February 2019. She has c/c of sensation and strength loss in both of her legs. Patient started feeling like she was walking like she was drunk in September of 2018. She started feeling like her legs felt heavy and stairs were starting to scare her at this time. Since then, she has had 2 falls - one in which she hurt her L knee and thought she has fractured her sacrum. Patient has since recieved an X-ray of this area and is following up with her PCP. She has pain at night from her hips down and at times has spasm in lower extremities. Patient reports that currently she is getting assistance from her aunt and parents but has been moving through the household and community primarily with a wheelchair. She is currently living in a day time basement with no stairs to enter. Patient is concerned about grab bars in the house and is looking at installation. She reports that she is currently showering at parent's house on shower chair. 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 She would like to gain more stability and confidence with her movements. 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 Current Functional Impairments (Reported) Functional Limitations- ADL's Shower chair needed for bathing Sleeping is painful in bilateral LE Functional Limitations- Mobility/Gait Assistance needed for bed mobility Grab bars needed to move in and out of bed Personal Factors Other Personal Factors That May Effect Past Laminectomy Therapy/Recovery BMI >30 Lives alone PT-OP-C Subjective Start: 04/19/19 15:25 Freq: Status: Active Protocol: Document 05/17/19 10:30 EG (Rec: 05/17/19 16:21 EG [id number]) OP-PT Subjective Patient Comments Patient Comments Patient stated that she feels like her plantar/dorsiflexion is getting weaker. She has also felt like her R LE is beginning to shake a little more without control. She did have her Neuro-Opthamoloist appointment and is currently waiting for her medications to come in - should be this week . Patient was not able to do the band exercise with hip abduction due to not having the strap. PT-OP-G Mobility & Gait Start: 04/19/19 15:25 Freq: Status: Active Protocol: Document 04/19/19 15:30 EG (Rec: 04/19/19 16:03 EG [email or web address]) OP Mobility Evaluation Bed Mobility Rolling I Supine to and from Sit min A Transfers Sit to Stand CGA Bed to Chair Transfers CGA Wheelchair Management Type of Wheelchair Manual PT-OP-H Neuro Start: 04/19/19 15:25 Freq: Status: Active Protocol: Document 04/21/19 16:16 EG (Rec: 04/21/19 16:43 EG [email or web address]) Sensation Evaluation Gross Sensation Gross Sensation Left LE Impaired,Right LE Impaired Dermatome Impairments L4,L5,S1 Comments Summary Comments patient could not feel monofilament on bilateral feet throughout L4-S1. Patient did not have proprioceptive awareness of bilateral Great toe when passively flexed or extended. PT-OP-L Special Tests Start: 04/19/19 15:25 Freq: Status: Active Protocol: Document 04/19/19 15:30 EG (Rec: 04/20/19 07:26 EG [email or web address]) Special Tests Neural Special Tests- Lower Body Clonus Test Results + Comments non-fatiguing clonus on R PT-OP-M Strength Start: 04/19/19 15:25 Freq: Status: Active Protocol: Document 04/19/19 15:30 EG (Rec: 04/20/19 07:26 EG [email or web address]) Hip Strength Hip Manual Muscle Testing Left Flexion (L2) 3 Fair Abduction 4- Good- Adduction 4- Good- Right Flexion (L2) 3- Fair- Abduction 3+ Fair+ Adduction 4- Good- Knee Strength Knee Manual Muscle Testing Left Flexion (S2) 3+ Fair+ Extension (L3) 3 Fair Right Flexion (S2) 3+ Fair+ Extension (L3) 3 Fair Ankle/Foot Strength Ankle and Foot Manual Muscle Testing Right Dorsiflexion (L4) 3+ Fair+ Plantarflexion (S1) 3+ Fair+ Left Dorsiflexion (L4) 3+ Fair+ Plantarflexion (S1) 3+ Fair+ PT-OP-Q Treatments Start: 04/19/19 15:25 Freq: Status: Active Protocol: Document 05/17/19 10:30 EG (Rec: 05/17/19 16:21 EG [id number]) Therapeutic Activity Therapeutic Activity Standing Balance Name Standing Balance in // bars Reps/Minutes x3 Comments Brief 1 hand hover // bars WBOS and contact with standing . Gait belt used with WC behind patient. Sit to financial economist // Bars Name Sit to financial economist // Bars Reps/Minutes 5x Comments Pushed off wheelchair arms and held on to // bars when standing. Gait Training Gait Activity Corrdination of foot placement with step Description 1 legged step forward/backward Device Used // bars Level of Assistance CGA Surface carpet Distance/Duration 2x5 each side Treatment Focus coordination of step placement Comments Patient stepped one foot forward/backward with emphasis on step length. Done with one leg only then done alternating feet Walking in // Bars Description foward full length //bars Device Used // bars w/ w/c follow Level of Assistance CGA Distance/Duration 10 ft x3 sets (seated rest between) Treatment Focus Assessment of balance of gait in // bars Comments WC behind- BLE unsteady, much support needed of //bars. Fatigue by end of 3rd set Self-Care/Home Management Treatment Education Patient Education Joint Protection Other Education Patient R foot had increased debris and a flap of loose skin between her 4th and 5th digit in the web space. patient was educated on soaking and cleaning the foot as well as making sure foot was completely dry when placing shoes or slippers on. Patient was also educated on importance of pressure off loading when in the wheelchair and frequent shifts in position to maintain skin integrity and prevent pressure ulcers. PT-OP-T Assessment and Plan Start: 04/19/19 15:25 Freq: Status: Active Protocol: Document 05/17/19 10:30 EG (Rec: 05/17/19 16:21 EG [id number]) Physical Therapy Assessment Assessment Summary Assessment Patient tolerated treatment fair this morning but did fatigue quickly with gait training. Patient's coordination with step length is poor and when stepping to transfer weight, it is difficult for patient to smoothly place foot flat moving during loading response . Patient's feet were assessed today and the R foot in the space between 4th and 5th digit did have increased debris as well as a flap of loose skin. Patient was educated on importance of washing the feet and making sure they are dried completely to prevent formation of wounds. Patient was also educated on importance of weight shifting in wheelchair to avoid formation of pressure ulcers. Physical Therapy Plan Frequency and Duration Frequency of Treatment 2x/Week Duration of Treatment 8-10 weeks Plan of Care Start Date 04/19/19 Plan of Care End Date 06/28/19 Next Visit Focus/Plan Next Note Type Treatment Note Next Visit Plan Assess added HEP hip add, abd resistance, continue gait in //bars and use of FWW. Ask how medications are going Continue per PT POC: Standing balance in // bars with weight shift and continual practice of bringing one leg forward and back. Possibly step over hurdles and back to make sure leg is going high enough. Continue practice walking with FWW as energy tolerates Lubna Gaines DPT, supervised all treatment performed by, and agreed with the plan of care, as performed by Kasia Mills, [facility].
--- NOTE | 2019-06-07 15:11 | PT.OTN ---
Current Diagnoses Multiple sclerosis (06/07/19) Muscle weakness (generalized) (06/07/19) History of falling (06/07/19) Physical Therapy Treatment Note PT-OP-A Visit Information Start: 04/19/19 15:25 Freq: Status: Active Protocol: Document 06/07/19 10:35 EG (Rec: 06/07/19 12:58 EG [email or web address]) Out-Patient Physical Therapy Visit Information Visit Information Visit Type Treatment Note Visit Start Time 10:35 Visit Stop Time 11:15 Total Visit Minutes 40 Visit Number 7 Number of INGOT CASTER Visits 0 PT-OP-B Current Condition Start: 04/19/19 15:25 Freq: Status: Active Protocol: Document 04/19/19 15:30 EG (Rec: 04/19/19 16:03 EG [email or web address]) Current Condition History of Current Condition Onset Date October 2018 Current Complaints Weakness/Instability with standing/transfers/walking History of Current Condition Patient is a 38 year old female who reports to physical therapy after being diagnosed with Multiple Sclerosis in February 2019. She has c/c of sensation and strength loss in both of her legs. Patient started feeling like she was walking like she was drunk in September of 2018. She started feeling like her legs felt heavy and stairs were starting to scare her at this time. Since then, she has had 2 falls - one in which she hurt her L knee and thought she has fractured her sacrum. Patient has since recieved an X-ray of this area and is following up with her PCP. She has pain at night from her hips down and at times has spasm in lower extremities. Patient reports that currently she is getting assistance from her aunt and parents but has been moving through the household and community primarily with a wheelchair. She is currently living in a day time basement with no stairs to enter. Patient is concerned about grab bars in the house and is looking at installation. She reports that she is currently showering at parent's house on shower chair. 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 She would like to gain more stability and confidence with her movements. 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 Current Functional Impairments (Reported) Functional Limitations- ADL's Shower chair needed for bathing Sleeping is painful in bilateral LE Functional Limitations- Mobility/Gait Assistance needed for bed mobility Grab bars needed to move in and out of bed Personal Factors Other Personal Factors That May Effect Past Laminectomy Therapy/Recovery BMI >30 Lives alone PT-OP-C Subjective Start: 04/19/19 15:25 Freq: Status: Active Protocol: Document 06/07/19 10:35 EG (Rec: 06/07/19 12:58 EG [email or web address]) OP-PT Subjective Patient Comments Patient Comments Patient reports that she has been taking her medication and hasn't noticed an effect either way. She hasn't gotten better nor gotten worse. She is still trying to do her exercises at home but sometimes her leg just doesn't want to move. She is aware of when her knees are going to buckle and has not had a fall the past couple weeks. Her mom has had to take over most of her care because her aunt is staying in her apartment during coronavirus. She is worried about her mom's back. PT-OP-G Mobility & Gait Start: 04/19/19 15:25 Freq: Status: Active Protocol: Document 04/19/19 15:30 EG (Rec: 04/19/19 16:03 EG [email or web address]) OP Mobility Evaluation Bed Mobility Rolling I Supine to and from Sit min A Transfers Sit to Stand CGA Bed to Chair Transfers CGA Wheelchair Management Type of Wheelchair Manual PT-OP-H Neuro Start: 04/19/19 15:25 Freq: Status: Active Protocol: Document 04/21/19 16:16 EG (Rec: 04/21/19 16:43 EG [email or web address]) Sensation Evaluation Gross Sensation Gross Sensation Left LE Impaired,Right LE Impaired Dermatome Impairments L4,L5,S1 Comments Summary Comments patient could not feel monofilament on bilateral feet throughout L4-S1. Patient did not have proprioceptive awareness of bilateral Great toe when passively flexed or extended. PT-OP-L Special Tests Start: 04/19/19 15:25 Freq: Status: Active Protocol: Document 04/19/19 15:30 EG (Rec: 04/20/19 07:26 EG [email or web address]) Special Tests Neural Special Tests- Lower Body Clonus Test Results + Comments non-fatiguing clonus on R PT-OP-M Strength Start: 04/19/19 15:25 Freq: Status: Active Protocol: Document 04/19/19 15:30 EG (Rec: 04/20/19 07:26 EG [email or web address]) Hip Strength Hip Manual Muscle Testing Left Flexion (L2) 3 Fair Abduction 4- Good- Adduction 4- Good- Right Flexion (L2) 3- Fair- Abduction 3+ Fair+ Adduction 4- Good- Knee Strength Knee Manual Muscle Testing Left Flexion (S2) 3+ Fair+ Extension (L3) 3 Fair Right Flexion (S2) 3+ Fair+ Extension (L3) 3 Fair Ankle/Foot Strength Ankle and Foot Manual Muscle Testing Right Dorsiflexion (L4) 3+ Fair+ Plantarflexion (S1) 3+ Fair+ Left Dorsiflexion (L4) 3+ Fair+ Plantarflexion (S1) 3+ Fair+ PT-OP-Q Treatments Start: 04/19/19 15:25 Freq: Status: Active Protocol: Document 06/07/19 10:35 EG (Rec: 06/07/19 12:58 EG [email or web address]) Therapeutic Exercises Sitting Exercises hip abd TB Resistance L 1 TB Reps/Minutes 2x10 Comments slow pacing control concentric/eccentric hip add Resistance small ball Reps/Minutes 5 sec hold x10 Hamstring Curl Sitting Exercise Name Hamstring Curl Side bilateral Equipment Used Level 1 Reps/Minutes 10x Comments given as HEP knee extension Sitting Exercise Name Seated knee extension Side bilateral Reps/Minutes 10x each side Comments R slightly stronger and more controlled today Neuro Re-Education Treatment Coordination Activities Foot placement Taking alternating steps Details Coordinate foot placement with single steps Equipment // bars Reps/Duration 5x each side Standing Cone Taps Details Standing Cone Taps Equipment Cone Reps/Duration 2x5 taps each side Comments Done standing in // bars. Given to do at home seated PT-OP-T Assessment and Plan Start: 04/19/19 15:25 Freq: Status: Active Protocol: Document 06/07/19 10:35 EG (Rec: 06/07/19 14:05 EG [email or web address]) Physical Therapy Assessment Assessment Summary Assessment patient tolerated treatment well this morning. She should continue to work on coordination training to help with proprioception of leg placement when beginning gait training. She should continue to do leg strengthening and ROM exercises at home to increase neuromuscular connection to lower extremity movements and strength as the medication continues to help with medical condition of MS. Patient was advised to continue working on exercises at home as well to be aware of fatigue. Physical Therapy Plan Next Visit Focus/Plan Next Note Type Treatment Note Next Visit Plan Continue to work on coordination training. Gait training in // bars or FWW. [place]ubna DPT, supervised all treatment performed by, and agreed with the plan of care, as performed by [facility] Metzger.
--- NOTE | 2019-06-13 13:25 | PT.OTN ---
Current Diagnoses Multiple sclerosis (06/13/19) Muscle weakness (generalized) (06/13/19) History of falling (06/13/19) Physical Therapy Treatment Note PT-OP-A Visit Information Start: 04/19/19 15:25 Freq: Status: Active Protocol: Document 06/13/19 11:15 AMB (Rec: 06/13/19 12:54 AMB [email or web address]) Out-Patient Physical Therapy Visit Information Visit Information Visit Type Treatment Note Visit Start Time 11:15 Visit Stop Time 12:00 Total Visit Minutes 40 Visit Number 8 Number of FACILITIES PAINTER Visits 0 PT-OP-B Current Condition Start: 04/19/19 15:25 Freq: Status: Active Protocol: Document 04/19/19 15:30 EG (Rec: 04/19/19 16:03 EG [email or web address]) Current Condition History of Current Condition Onset Date October 2018 Current Complaints Weakness/Instability with standing/transfers/walking History of Current Condition Patient is a 38 year old female who reports to physical therapy after being diagnosed with Multiple Sclerosis in February 2019. She has c/c of sensation and strength loss in both of her legs. Patient started feeling like she was walking like she was drunk in September of 2018. She started feeling like her legs felt heavy and stairs were starting to scare her at this time. Since then, she has had 2 falls - one in which she hurt her L knee and thought she has fractured her sacrum. Patient has since recieved an X-ray of this area and is following up with her PCP. She has pain at night from her hips down and at times has spasm in lower extremities. Patient reports that currently she is getting assistance from her aunt and parents but has been moving through the household and community primarily with a wheelchair. She is currently living in a day time basement with no stairs to enter. Patient is concerned about grab bars in the house and is looking at installation. She reports that she is currently showering at parent's house on shower chair. 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 She would like to gain more stability and confidence with her movements. 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 Current Functional Impairments (Reported) Functional Limitations- ADL's Shower chair needed for bathing Sleeping is painful in bilateral LE Functional Limitations- Mobility/Gait Assistance needed for bed mobility Grab bars needed to move in and out of bed Personal Factors Other Personal Factors That May Effect Past Laminectomy Therapy/Recovery BMI >30 Lives alone PT-OP-C Subjective Start: 04/19/19 15:25 Freq: Status: Active Protocol: Document 06/13/19 11:15 AMB (Rec: 06/13/19 12:54 AMB [email or web address]) OP-PT Subjective Patient Comments Patient Comments Patient comes in with her mom, for instructing her with body mechanics with her exercises. Pt states she is getting a bit more aware of her muscles, but proprioception of where her legs are in space is still really challenging. She is concerned about her right ankle- thinks it is more swollen and she does have a tendency to roll it out. PT-OP-G Mobility & Gait Start: 04/19/19 15:25 Freq: Status: Active Protocol: Document 04/19/19 15:30 EG (Rec: 04/19/19 16:03 EG [email or web address]) OP Mobility Evaluation Bed Mobility Rolling I Supine to and from Sit min A Transfers Sit to Stand CGA Bed to Chair Transfers CGA Wheelchair Management Type of Wheelchair Manual PT-OP-H Neuro Start: 04/19/19 15:25 Freq: Status: Active Protocol: Document 04/21/19 16:16 EG (Rec: 04/21/19 16:43 EG [email or web address]) Sensation Evaluation Gross Sensation Gross Sensation Left LE Impaired,Right LE Impaired Dermatome Impairments L4,L5,S1 Comments Summary Comments patient could not feel monofilament on bilateral feet throughout L4-S1. Patient did not have proprioceptive awareness of bilateral Great toe when passively flexed or extended. PT-OP-L Special Tests Start: 04/19/19 15:25 Freq: Status: Active Protocol: Document 04/19/19 15:30 EG (Rec: 04/20/19 07:26 EG [email or web address]) Special Tests Neural Special Tests- Lower Body Clonus Test Results + Comments non-fatiguing clonus on R PT-OP-M Strength Start: 04/19/19 15:25 Freq: Status: Active Protocol: Document 04/19/19 15:30 EG (Rec: 04/20/19 07:26 EG [email or web address]) Hip Strength Hip Manual Muscle Testing Left Flexion (L2) 3 Fair Abduction 4- Good- Adduction 4- Good- Right Flexion (L2) 3- Fair- Abduction 3+ Fair+ Adduction 4- Good- Knee Strength Knee Manual Muscle Testing Left Flexion (S2) 3+ Fair+ Extension (L3) 3 Fair Right Flexion (S2) 3+ Fair+ Extension (L3) 3 Fair Ankle/Foot Strength Ankle and Foot Manual Muscle Testing Right Dorsiflexion (L4) 3+ Fair+ Plantarflexion (S1) 3+ Fair+ Left Dorsiflexion (L4) 3+ Fair+ Plantarflexion (S1) 3+ Fair+ PT-OP-Q Treatments Start: 04/19/19 15:25 Freq: Status: Active Protocol: Document 06/13/19 11:15 AMB (Rec: 06/13/19 13:25 AMB [email or web address]) Therapeutic Exercises Supine Exercises 1 Supine Exercise Name hip flexor stretch Reps/Minutes 30x3 Comments leg of side of table, gravity only OP 2 Supine Exercise Name calf stretch Reps/Minutes 5 min to instruct family in multiple variations with consideration body mec HS stretch Supine Exercise Name 5 min with instruction to family on body mechanics Sitting Exercises hip abd TB Resistance L 3 TB Reps/Minutes 2x10 Comments slow pacing control concentric/eccentric Hamstring Curl Sitting Exercise Name Hamstring Curl Side bilateral Equipment Used Level 1 Reps/Minutes 10x Comments given as HEP knee extension Sitting Exercise Name Seated knee extension Side bilateral Reps/Minutes 10x each side Plantar/Dorsiflexion Sitting Exercise Name Plantar and Dorsiflexion in seated (HRTR) Side bilateral Reps/Minutes 10x Comments HEP Gait Training Gait Activity Walking with FWW Description Walking with FWW Device Used FWW Level of Assistance min A Surface carpet Distance/Duration 1x10 feet Comments pt bathroom about 10 feet away from bed. with w/c follow. vc to avoid extensive overuse of upper traps Walking in // Bars Description foward full length //bars Device Used // bars w/ w/c follow Level of Assistance CGA Distance/Duration 10 ft x4 sets (seated rest between) Treatment Focus Assessment of balance of gait in // bars Comments WC behind- PT-OP-T Assessment and Plan Start: 04/19/19 15:25 Freq: Status: Active Protocol: Document 06/13/19 11:15 AMB (Rec: 06/13/19 12:54 AMB [email or web address]) Physical Therapy Assessment Assessment Summary Assessment Missael did well with gait training and her exercises today, she continues to fatigue quickly. If she continues to have ankle instability, we could consider AFO given her persistent weakness, although I have been hesitant to do so due to her swelling and hoping that her symptoms improve with medication. Pt given written HEP today and is aware of continued exercises to progress while we are on hold due to the coronavirus pandemic. If her ankle stability does not improve over that time, AFO should be considered. Physical Therapy Plan Next Visit Focus/Plan Next Note Type Treatment Note Next Visit Plan Continue to work on coordination training. Gait training in // bars or FWW.
--- NOTE | 2019-08-03 16:04 | PT.OTN ---
Current Diagnoses Multiple sclerosis (08/03/19) Muscle weakness (generalized) (08/03/19) History of falling (08/03/19) Physical Therapy Treatment Note PT-OP-A Visit Information Start: 04/19/19 15:25 Freq: Status: Active Protocol: Document 08/03/19 10:30 LRN (Rec: 08/03/19 16:02 LRN [id number]) Out-Patient Physical Therapy Visit Information Visit Information Visit Type Progress Note Visit Start Time 10:30 Visit Stop Time 11:20 Total Visit Minutes 50 Visit Number 8 Precautions Precautions Fall Risk Sensation Loss in bilateral LE PT-OP-B Current Condition Start: 04/19/19 15:25 Freq: Status: Active Protocol: Document 08/03/19 10:30 LRN (Rec: 08/03/19 16:02 LRN [id number]) Current Condition History of Current Condition Onset Date October 2018 Current Complaints Weakness/Instability with standing/transfers/walking History of Current Condition Patient is a 38 year old female who reports to physical therapy after being diagnosed with Multiple Sclerosis in February 2019. She has c/c of sensation and strength loss in both of her legs. Patient started feeling like she was walking like she was drunk in September of 2018. She started feeling like her legs felt heavy and stairs were starting to scare her at this time. Since then, she has had 2 falls - one in which she hurt her L knee and thought she has fractured her sacrum. Patient has since recieved an X-ray of this area and is following up with her PCP. She has pain at night from her hips down and at times has spasm in lower extremities. Patient reports that currently she is getting assistance from her aunt and parents but has been moving through the household and community primarily with a wheelchair. She is currently living in a day time basement with no stairs to enter. Patient is concerned about grab bars in the house and is looking at installation. She reports that she is currently showering at parent's house on shower chair. 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 She would like to gain more stability and confidence with her movements. 08/03/19: Pt returns following Covid 19 community isolation. Pt notes some improvement in strength. Walking 20-46' with walker and parent assist for chair behind her daily. Prior Treatments and Tests X-Rays Brain MRI - came back normal Spinal Taps Future Testing and Treatments Planned Medical Intervention for MS Treatment Goals Patient/Caregiver Goals 1. Would like to get more stable and confident with her movements. 2. Pt would like to be able to mobilize by walking independently with walker and not with wheelchair. 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 Walking with use of FWW. General mobility with wheelchair. Personal Factors Other Personal Factors That May Effect Past Laminectomy Therapy/Recovery BMI >30 Lives alone PT-OP-C Subjective Start: 04/19/19 15:25 Freq: Status: Active Protocol: Document 08/03/19 10:30 LRN (Rec: 08/03/19 16:02 LRN [id number]) OP-PT Subjective Patient Comments Patient Comments Pt reports walking 23' with FWW and sometimes is able to walk 46' prior to fatigue. She reports being able to static stand only for short periods but can stand longer if she moves her legs. She feels 80% confident in ability to transfer W/C to bed, and can transfer independently in AM, but not PM due to R leg weak, causing it to slide out of strap support used to transfer. Patient Questionnaires ABC- Activity Specific Balance Confidence Scale ABC Score 5.6 ABC Functional Impairment 80 to <100% Impaired (Score 1- 20) PT-OP-E Functional Tests Start: 04/19/19 15:25 Freq: Status: Active Protocol: Document 08/03/19 10:30 LRN (Rec: 08/03/19 16:02 LRN [id number]) Functional Tests Other 2 min Step Test Name of Test 2 Minute Step Test Score 8 times Comment Norm for 60-64 years olds is 75-107 times. RPE: Somewhat Hard PT-OP-G Mobility & Gait Start: 04/19/19 15:25 Freq: Status: Active Protocol: Document 08/03/19 10:30 LRN (Rec: 08/03/19 16:02 LRN [id number]) OP Mobility Evaluation Bed Mobility Rolling Independent Supine to and from Sit SBA Transfers Sit to Stand Independently with use of hands or railing/walker for stability on standing. Bed to Chair Transfers Independent Wheelchair <-> Plinth. OP Gait Assessment Comments Gait Comments Pt walked in parallel bars a very short distance independently with wheel chair behind her. PT-OP-H Neuro Start: 04/19/19 15:25 Freq: Status: Active Protocol: Document 08/03/19 10:30 LRN (Rec: 08/03/19 16:02 LRN [id number]) Sensation Evaluation Gross Sensation Gross Sensation Left LE Impaired,Right LE Impaired Sensation Description Numbness,Coldness,Heaviness Dermatome Impairments L4,L5,S1 Comments Summary Comments patient could not feel monofilament on bilateral feet throughout L4-S1. Patient did not have proprioceptive awareness of bilateral Great toe when passively flexed or extended. Vital Signs Comments Vital Signs Comments Before Activity: HR 89, SpO2 98% After Step Test: HR 88, SpO2 97% PT-OP-K Range of Motion Start: 04/19/19 15:25 Freq: Status: Active Protocol: Document 08/03/19 10:30 LRN (Rec: 08/03/19 16:02 LRN [id number]) Knee Goniometric Range of Motion Knee Right Knee ROM WFL Yes Patient Position Sitting Left Knee ROM WFL Yes Patient Position Sitting Ankle and Foot Goniometric Range of Motion Ankle and Foot ROM Limitations ROM Limitations Soft Tissue Tightness,Muscle Weakness Comments Ankle DF AROM: Right lacks 19 deg's; Left lacks 5 deg's. PT-OP-L Special Tests Start: 04/19/19 15:25 Freq: Status: Active Protocol: Document 08/03/19 10:30 LRN (Rec: 08/03/19 16:02 LRN [id number]) Special Tests Neural Special Tests- Lower Body Clonus Test Results + Comments non-fatiguing clonus on R PT-OP-M Strength Start: 04/19/19 15:25 Freq: Status: Active Protocol: Document 08/03/19 10:30 LRN (Rec: 08/03/19 16:02 LRN [id number]) Hip Strength Hip Manual Muscle Testing Left Flexion (L2) 3 Fair Abduction 2 Poor Adduction 3 Fair Right Flexion (L2) 2 Poor Abduction 2 Poor Adduction 2- Poor- Knee Strength Knee Manual Muscle Testing Left Flexion (S2) 3+ Fair+ Extension (L3) 5 Normal Right Flexion (S2) 3+ Fair+ Extension (L3) 5 Normal Ankle/Foot Strength Ankle and Foot Manual Muscle Testing Right Dorsiflexion (L4) 3+ Fair+ Plantarflexion (S1) 1 Trace Left Dorsiflexion (L4) 3+ Fair+ Plantarflexion (S1) 2 Poor PT-OP-Q Treatments Start: 04/19/19 15:25 Freq: Status: Active Protocol: Document 08/03/19 10:30 LRN (Rec: 08/03/19 16:02 LRN [id number]) Therapeutic Exercises Supine Exercises Hip Flex Supine Exercise Name SLR Side bilateral Resistance [place] Reps/Minutes 1 Comments 1 RPM right, 2 RPM left. Sidelying Exercises Hip AD Sidelying Exercise Name Hip AD Side bilateral Reps/Minutes 2x Comments Held upper leg in AB for pt to perform Hip AB Sidelying Exercise Name Hip AB Side bilateral Resistance manual Reps/Minutes 2x Sitting Exercises Gastrocnemius stretch Sitting Exercise Name Gastroc stretch Side right Equipment Used Strap Comments Adjusted pull on strap as needed to keep foot in neutral Hamstring stretch Sitting Exercise Name Hamstring stretch Side bilateral Equipment Used Manual & with strap Comments Adjusted pull on strap as needed to keep foot in neutral Hamstring Curl Sitting Exercise Name Hamstring Curl Side bilateral Resistance Manual knee extension Sitting Exercise Name Seated Knee ext Side bilateral Resistance Manual Plantar/Dorsiflexion Sitting Exercise Name Plantar and Dorsiflexion in seated stretch Side right Equipment Used Strap using both hands for safety of ankle positioning Reps/Minutes 2 Comments 30-60 sec hold f/b active DF Standing Exercises Marching Standing Exercise Name Marching with knees reaching 10 above knee hgt Reps/Minutes 3x, 3x, 2x Comments Working at RPE of somewhat hard, with rests as needed. Therapeutic Activity Therapeutic Activity Sit to Supine Name Sit to Supine Reps/Minutes x 1 Sit to Stand with FWW Name Sit to Stand Reps/Minutes 5x Comments Pushing with arms and one time pulling self up at // bars Standing Balance Name Static standing Reps/Minutes 30 secs Comments Pt used // Bars for balance support. Sit to machine washer // Bars Name Static standing in // Bars. Comments Monitored pt response to standing. Pt not able to tolerate standing > 30 secs due to feeling of weakness in LE's and needed chair brought behind. Self-Care/Home Management Treatment Activities Self-Care/Home Management Activities Reviewed HEP of stretch to Ankle DF with teaching to do active DF immediately following stretch. I/S pt in how to monitor and adjust strap to keep ankle from twisting. PT-OP-T Assessment and Plan Start: 04/19/19 15:25 Freq: Status: Active Protocol: Document 08/03/19 10:30 LRN (Rec: 08/03/19 16:02 LRN [id number]) Physical Therapy Assessment Rehab Potential Rehabilitation Potential Good Evaluation Complexity Number of Personal Factors/Comorbidities 3 or More Number of Body Systems Impaired 4 or More Clinical Presentation at Evaluation Unstable Impairments Impairments Activity Tolerance,Balance, Coordination,Edema,Functional Activities,Functional Mobility ,Gait,Pain,Posture,ROM, Sensation,Strength,Transfers Goals Four Impairment Gait Short Term Goal (STG) Patient will walk 20 feet in / / bars in 2-4 weeks. 08/13/19: GOAL MET. Pt is walking at home 23' with FWW and sometimes 46'. STG Duration 2-4 weeks (08/03/19 GOAL MET) Environmental Studies Faculty Member Goal (LTG) Patient will walk 100 feet with FWW in 6-8 weeks. LTG Duration 10/06/19 (08/03/19 Pt walks 23-46' with FWW at home). Three Impairment Balance Short Term Goal (STG) Patient will insurance investigator // bars for 3 minutes without loss of balance in 2 weeks. 08/03/19: NOT MET, pt stands 30 sec's. STG Duration 08/31/19 (08/03/19: Pt able to stand 30 sec's) Environmental Studies Faculty Member Goal (LTG) Patient will stand with FWW for 5 minutes without loss of balance in 4-6 weeks. LTG Duration 10/06/19 08/03/19 Two Impairment Functional Activity Short Term Goal (STG) Patient will move from seated to supine independently with ability to move both legs on to bed with assistance from strap in 3 weeks. (08/03/19: GOAL MET in AM, in PM legs slide out of strap support) STG Duration 08/31/19 (08/03/19: Pt able to do independently in AM) Environmental Studies Faculty Member Goal (LTG) Patient will move from seated to supine independently without assistance from external device with ability to swing both legs on to bed with a controlled movement to supine in 5 weeks. LTG Duration 10/06/19 (08/03/19 One Impairment Transfers Short Term Goal (STG) Patient will perform stand- pivot transfers independently with 90% confidence from wheelchair to bed in 4 weeks. (08/03/19: Progressing towards goal) STG Duration 08/31/19 (08/03/19: Pt has 80 % confidence) Group Home Goal (LTG) Patient will perform stand- pivot transfer independently with 100% confidence from wheelchair to bed in 6-8 weeks . LTG Duration 10/06/19 (08/03/19: GOAL NOT MET) Assessment Summary Assessment Pt presents today with improved gait tolerance with ability to ambulate > 20' with use of FWW. The greatest distance she is able to achieve is 46 ft occasionally. Her static standing balance ability has not improved, probably due to LE weakness causing instability, with pt being fearful of falling. Due to interruption in her therapy program from Covid 19 social distancing, she has not been progressed in her strengthening program. The pt has potential to improve in strength. Her transfer ability is improved and she is able to transfer into bed independently in the AM, but by PM she is more fatigued and is not able to perform the activity independently. Further training and strengthening is needed. she has shown improved function per ABC score of 4.1 to 5.6 % confidence. With transfers she reports no significant change in her confidence in independent stand-pivot transfers, but this is also due to weakness of LE's; therefore with further skilled physical therapy focusing on strengthening and balance training it is expected that his may improve. I would recommend continuation of therapy starting 2x/week, but due to the pt's limited PT visits, once she is educated in a HEP of strengthening she will be decreased to 1x/week to advance her program as appropriate. Physical Therapy Plan Frequency and Duration Frequency of Treatment 2x/Week Duration of Treatment 8 weeks Plan of Care Start Date 08/03/19 Plan of Care End Date 10/02/19 Therapeutic Interventions Therapeutic Interventions Aquatic Therapy,Balance Training,Coordination Training ,Gait Training,Home Exercise Program,Neuromuscular Re- education,Orthotic/Prosthetic Management,Patient/Caregiver Education,Self-Care/Home Management,Therapeutic Activities,Therapeutic Exercises,Wheelchair Management Next Visit Focus/Plan Next Note Type Treatment Note Next Visit Plan Strengthening LE's ankles, hip AB's for functional standing and walking. Assess Core strength. Gait training, endurance ex for walking and improving function of 2' step test, transfer training, stand pivot/neuro re-ed training to improve confidence level.
--- NOTE | 2019-08-03 16:05 | PT.OPPOC ---
Physical, Occupational & Speech Therapy At [facility] Current Diagnoses Multiple sclerosis (08/03/19) Muscle weakness (generalized) (08/03/19) History of falling (08/03/19) Visit Care Team Role Provider Type Alycia Farrar PA-C Primary Care Provider Advanced Docent Coordinator Specialty: Medical Address: [address] [place] [address], [facility] [address], [place], [address] Email: [email or web address] Umaña MD Attending Provider Non-Staff Specialty: Psychiatry Address: [address] [place] [address], [place] [address], [place], [address] Email: Plan Of Care PT-OP-T Assessment and Plan Start: 04/19/19 15:25 Freq: Status: Active Protocol: Document 08/03/19 10:30 LRN (Rec: 08/03/19 16:02 LRN [id number]) Physical Therapy Assessment Rehab Potential Rehabilitation Potential Good Evaluation Complexity Number of Personal Factors/Comorbidities 3 or More Number of Body Systems Impaired 4 or More Clinical Presentation at Evaluation Unstable Impairments Impairments Activity Tolerance,Balance, Coordination,Edema,Functional Activities,Functional Mobility ,Gait,Pain,Posture,ROM, Sensation,Strength,Transfers Goals Four Impairment Gait Short Term Goal (STG) Patient will walk 20 feet in / / bars in 2-4 weeks. 08/13/19: GOAL MET. Pt is walking at home 23' with FWW and sometimes 46'. STG Duration 2-4 weeks (08/03/19 GOAL MET) Care Home Goal (LTG) Patient will walk 100 feet with FWW in 6-8 weeks. LTG Duration 10/06/19 (08/03/19 Pt walks 23-46' with FWW at home). Three Impairment Balance Short Term Goal (STG) Patient will it project coordinator // bars for 3 minutes without loss of balance in 2 weeks. 08/03/19: NOT MET, pt stands 30 sec's. STG Duration 08/31/19 (08/03/19: Pt able to stand 30 sec's) Midlevel Provider Goal (LTG) Patient will stand with FWW for 5 minutes without loss of balance in 4-6 weeks. LTG Duration 10/06/19 08/03/19 Two Impairment Functional Activity Short Term Goal (STG) Patient will move from seated to supine independently with ability to move both legs on to bed with assistance from strap in 3 weeks. (08/03/19: GOAL MET in AM, in PM legs slide out of strap support) STG Duration 08/31/19 (08/03/19: Pt able to do independently in AM) Midlevel Provider Goal (LTG) Patient will move from seated to supine independently without assistance from external device with ability to swing both legs on to bed with a controlled movement to supine in 5 weeks. LTG Duration 10/06/19 (08/03/19 One Impairment Transfers Short Term Goal (STG) Patient will perform stand- pivot transfers independently with 90% confidence from wheelchair to bed in 4 weeks. (08/03/19: Progressing towards goal) STG Duration 08/31/19 (08/03/19: Pt has 80 % confidence) Care Home Goal (LTG) Patient will perform stand- pivot transfer independently with 100% confidence from wheelchair to bed in 6-8 weeks . LTG Duration 10/06/19 (08/03/19: GOAL NOT MET) Assessment Summary Assessment Pt presents today with improved gait tolerance with ability to ambulate > 20' with use of FWW. The greatest distance she is able to achieve is 46 ft occasionally. Her static standing balance ability has not improved, probably due to LE weakness causing instability, with pt being fearful of falling. Due to interruption in her therapy program from Covid 19 social distancing, she has not been progressed in her strengthening program. The pt has potential to improve in strength. Her transfer ability is improved and she is able to transfer into bed independently in the AM, but by PM she is more fatigued and is not able to perform the activity independently. Further training and strengthening is needed. she has shown improved function per ABC score of 4.1 to 5.6 % confidence. With transfers she reports no significant change in her confidence in independent stand-pivot trnasfers, but this is also due to weakness of LE's; therefore with further skilled physical therapy focusing on strengthening and balance training it is expected that his may improve. I would recommend continuation of therapy starting 2x/week, but due to the pt's limited PT visits, once she is educated in a HEP of strengthening she will be decreased to 1x/week to advance her program as appropriate. Physical Therapy Plan Frequency and Duration Frequency of Treatment 2x/Week Duration of Treatment 8 weeks Plan of Care Start Date 08/03/19 Plan of Care End Date 10/02/19 Therapeutic Interventions Therapeutic Interventions Aquatic Therapy,Balance Training,Coordination Training ,Gait Training,Home Exercise Program,Neuromuscular Re- education,Orthotic/Prosthetic Management,Patient/Caregiver Education,Self-Care/Home Management,Therapeutic Activities,Therapeutic Exercises,Wheelchair Management Next Visit Focus/Plan Next Note Type Treatment Note Next Visit Plan Strengthening LE's ankles, hip AB's for functional standing and walking. Assess Core strength. Gait training, endurance ex for walking and improving function of 2' step test, transfer training, stand pivot/neuro re-ed training to improve confidence level. Plan of Care Dates Plan of Care Start Date 08/03/19 Plan of Care End Date 10/02/19 Electronically Signed by: Dora Escalona, PT 08/03/19 1375 Please Sign and Return: I have reviewed this Plan of Care and certify that the skilled therapy services above are required to meet the patient?s needs. Physician Signature Date Printed Name and Credentials Clinical Instructor Signature Printed Name and Credentials
--- NOTE | 2019-08-08 18:52 | PT.OTN ---
Current Diagnoses Multiple sclerosis (08/08/19) Muscle weakness (generalized) (08/08/19) History of falling (08/08/19) Physical Therapy Treatment Note PT-OP-A Visit Information Start: 04/19/19 15:25 Freq: Status: Active Protocol: Document 08/08/19 15:20 LRN (Rec: 08/08/19 16:04 LRN [id number]) Out-Patient Physical Therapy Visit Information Visit Information Visit Type Treatment Note Visit Note 03/31 since last PN Visit Start Time 15:21 Visit Stop Time 16:00 Total Visit Minutes 39 Visit Number 10 Precautions Precautions Fall Risk Sensation Loss in bilateral LE PT-OP-B Current Condition Start: 04/19/19 15:25 Freq: Status: Active Protocol: Document 08/03/19 10:30 LRN (Rec: 08/03/19 16:02 LRN [id number]) Current Condition History of Current Condition Onset Date October 2018 Current Complaints Weakness/Instability with standing/transfers/walking History of Current Condition Patient is a 38 year old female who reports to physical therapy after being diagnosed with Multiple Sclerosis in February 2019. She has c/c of sensation and strength loss in both of her legs. Patient started feeling like she was walking like she was drunk in September of 2018. She started feeling like her legs felt heavy and stairs were starting to scare her at this time. Since then, she has had 2 falls - one in which she hurt her L knee and thought she has fractured her sacrum. Patient has since recieved an X-ray of this area and is following up with her PCP. She has pain at night from her hips down and at times has spasm in lower extremities. Patient reports that currently she is getting assistance from her aunt and parents but has been moving through the household and community primarily with a wheelchair. She is currently living in a day time basement with no stairs to enter. Patient is concerned about grab bars in the house and is looking at installation. She reports that she is currently showering at parent's house on shower chair. 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 She would like to gain more stability and confidence with her movements. 08/03/19: Pt returns following Covid 19 community isolation. Pt notes some improvement in strength. Walking 20-46' with walker and parent assist for chair behind her daily. Prior Treatments and Tests X-Rays Brain MRI - came back normal Spinal Taps Future Testing and Treatments Planned Medical Intervention for MS Treatment Goals Patient/Caregiver Goals 1. Would like to get more stable and confident with her movements. 2. Pt would like to be able to mobilize by walking independently with walker and not with wheelchair. 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 Walking with use of FWW. General mobility with wheelchair. Personal Factors Other Personal Factors That May Effect Past Laminectomy Therapy/Recovery BMI >30 Lives alone PT-OP-C Subjective Start: 04/19/19 15:25 Freq: Status: Active Protocol: Document 08/08/19 15:20 LRN (Rec: 08/08/19 16:04 LRN [id number]) OP-PT Subjective Patient Comments Patient Comments Walked on 23' last couple days due to knees giving out. Did 46' 3 days ago. Was not too fatigued after last session and was able to get in/out of car and into home. Sometimes needs to sit 10' in passenger seat when getting home when overly fatigued by PT. PT-OP-E Functional Tests Start: 04/19/19 15:25 Freq: Status: Active Protocol: Document 08/03/19 10:30 LRN (Rec: 08/03/19 16:02 LRN [id number]) Functional Tests Other 2 min Step Test Name of Test 2 Minute Step Test Score 8 times Comment Norm for 60-64 years olds is 75-107 times. RPE: Somewhat Hard PT-OP-G Mobility & Gait Start: 04/19/19 15:25 Freq: Status: Active Protocol: Document 08/03/19 10:30 LRN (Rec: 08/03/19 16:02 LRN [id number]) OP Mobility Evaluation Bed Mobility Rolling Independent Supine to and from Sit SBA Transfers Sit to Stand Independently with use of hands or railing/walker for stability on standing. Bed to Chair Transfers Independent Wheelchair <-> Plinth. OP Gait Assessment Comments Gait Comments Pt walked in parallel bars a very short distance independently with wheel chair behind her. PT-OP-H Neuro Start: 04/19/19 15:25 Freq: Status: Active Protocol: Document 08/03/19 10:30 LRN (Rec: 08/03/19 16:02 LRN [id number]) Sensation Evaluation Gross Sensation Gross Sensation Left LE Impaired,Right LE Impaired Sensation Description Numbness,Coldness,Heaviness Dermatome Impairments L4,L5,S1 Comments Summary Comments patient could not feel monofilament on bilateral feet throughout L4-S1. Patient did not have proprioceptive awareness of bilateral Great toe when passively flexed or extended. Vital Signs Comments Vital Signs Comments Before Activity: HR 89, SpO2 98% After Step Test: HR 88, SpO2 97% PT-OP-K Range of Motion Start: 04/19/19 15:25 Freq: Status: Active Protocol: Document 08/03/19 10:30 LRN (Rec: 08/03/19 16:02 LRN [id number]) Knee Goniometric Range of Motion Knee Right Knee ROM WFL Yes Patient Position Sitting Left Knee ROM WFL Yes Patient Position Sitting Ankle and Foot Goniometric Range of Motion Ankle and Foot ROM Limitations ROM Limitations Soft Tissue Tightness,Muscle Weakness Comments Ankle DF AROM: Right lacks 19 deg's; Left lacks 5 deg's. PT-OP-L Special Tests Start: 04/19/19 15:25 Freq: Status: Active Protocol: Document 08/03/19 10:30 LRN (Rec: 08/03/19 16:02 LRN [id number]) Special Tests Neural Special Tests- Lower Body Clonus Test Results + Comments non-fatiguing clonus on R PT-OP-M Strength Start: 04/19/19 15:25 Freq: Status: Active Protocol: Document 08/03/19 10:30 LRN (Rec: 08/03/19 16:02 LRN [id number]) Hip Strength Hip Manual Muscle Testing Left Flexion (L2) 3 Fair Abduction 2 Poor Adduction 3 Fair Right Flexion (L2) 2 Poor Abduction 2 Poor Adduction 2- Poor- Knee Strength Knee Manual Muscle Testing Left Flexion (S2) 3+ Fair+ Extension (L3) 5 Normal Right Flexion (S2) 3+ Fair+ Extension (L3) 5 Normal Ankle/Foot Strength Ankle and Foot Manual Muscle Testing Right Dorsiflexion (L4) 3+ Fair+ Plantarflexion (S1) 1 Trace Left Dorsiflexion (L4) 3+ Fair+ Plantarflexion (S1) 2 Poor PT-OP-Q Treatments Start: 04/19/19 15:25 Freq: Status: Active Protocol: Document 08/08/19 15:20 LRN (Rec: 08/08/19 16:04 LRN [id number]) Therapeutic Exercises Sitting Exercises Ankle EV Sitting Exercise Name Ankle EV strengthening Side bilateral Equipment Used Lev 1 T-Band Comments 8x2 with loosed T-Band on R, 10x 2 on left Gastrocnemius stretch Sitting Exercise Name Gastroc stretch - manual Side right Comments Stretch with manual JMT to ankle to promote DF Hamstring Curl Sitting Exercise Name Hamstring Curl Side bilateral Resistance Lev 2 T-Band @ tension 8 rep max Reps/Minutes 8x Comments Modified T-Band for resistance for 8 rep max each side Standing Exercises Marching Standing Exercise Name Marching with knees reaching 10 above knee hgt Reps/Minutes 4x, 4x, 4x Comments Working at RPE of somewhat hard, with rests as needed. Gait Training Gait Activity Walking in // Bars Description foward full length/bkwd 3/4 length //bars Device Used // bars with w/c behind Level of Assistance SBA Distance/Duration 10 ft x4 sets (seated rest between lengths) Treatment Focus Assessment of balance of gait in // bars Comments WC behind. 1st set: fwd-rest/bkwd 3/4 length - rest. 2nd set: fwd/1/2 bkwd-rest. Self-Care/Home Management Treatment Activities Self-Care/Home Management Activities Pt to use 8 rep max resistance at home for HS curl and try walking AM & PM as tolerated. Pt to FOCUS on DF stretch on R. PT-OP-T Assessment and Plan Start: 04/19/19 15:25 Freq: Status: Active Protocol: Document 08/08/19 15:20 LRN (Rec: 08/08/19 16:04 LRN [id number]) Physical Therapy Assessment Goals Four Impairment Gait Short Term Goal (STG) Patient will walk 20 feet in / / bars in 2-4 weeks. 08/13/19: GOAL MET. Pt is walking at home 23' with FWW and sometimes 46'. STG Duration 2-4 weeks (08/03/19 GOAL MET) Reinstatement Clerk Goal (LTG) Patient will walk 100 feet with FWW in 6-8 weeks. LTG Duration 10/06/19 (08/03/19 Pt walks 23-46' with FWW at home). Three Impairment Balance Short Term Goal (STG) Patient will healthcare financial analyst // bars for 3 minutes without loss of balance in 2 weeks. 08/03/19: NOT MET, pt stands 30 sec's. STG Duration 08/31/19 (08/03/19: Pt able to stand 30 sec's) Reinstatement Clerk Goal (LTG) Patient will stand with FWW for 5 minutes without loss of balance in 4-6 weeks. LTG Duration 10/06/19 08/03/19 Two Impairment Functional Activity Short Term Goal (STG) Patient will move from seated to supine independently with ability to move both legs on to bed with assistance from strap in 3 weeks. (08/03/19: GOAL MET in AM, in PM legs slide out of strap support) STG Duration 08/31/19 (08/03/19: Pt able to do independently in AM) [facility]cf Goal (LTG) Patient will move from seated to supine independently without assistance from external device with ability to swing both legs on to bed with a controlled movement to supine in 5 weeks. LTG Duration 10/06/19 (08/03/19 One Impairment Transfers Short Term Goal (STG) Patient will perform stand- pivot transfers independently with 90% confidence from wheelchair to bed in 4 weeks. (08/03/19: Progressing towards goal) STG Duration 08/31/19 (08/03/19: Pt has 80 % confidence) [facility] Goal (LTG) Patient will perform stand- pivot transfer independently with 100% confidence from wheelchair to bed in 6-8 weeks . LTG Duration 10/06/19 (08/03/19: GOAL NOT MET) Progress Towards Goals Progress Comments Improved endurance with able to perform 4x may at somewhat hard RPE. Assessment Summary Assessment Pt able to march 4x today ( last treatment 3x) prior to fatigue, with RPE held at somewhat hard (13). Pt was able to walk forward and backward without R ankle twisting. I was able to train pt in 8 rep max resistance for strengthening at home. Walking endurance needs to improve for home walking with walker. Physical Therapy Plan Frequency and Duration Frequency of Treatment 2x/Week Duration of Treatment 8 weeks Plan of Care Start Date 08/03/19 Plan of Care End Date 10/02/19 Next Visit Focus/Plan Next Note Type Treatment Note Next Visit Plan Strengthening LE's ankles, hip AB's for functional standing and walking, try side stepping at bar or //bars. Assess Core strength. Gait training, Endurance ex for walking and improving function of 2' step test, transfer training, stand pivot/neuro re-ed training to improve confidence level.
--- NOTE | 2019-08-15 20:37 | PT.OTN ---
Current Diagnoses Multiple sclerosis (08/15/19) Muscle weakness (generalized) (08/15/19) History of falling (08/15/19) Physical Therapy Treatment Note PT-OP-A Visit Information Start: 04/19/19 15:25 Freq: Status: Active Protocol: Document 08/15/19 14:36 LRN (Rec: 08/15/19 15:14 LRN [id number]) Out-Patient Physical Therapy Visit Information Visit Information Visit Type Treatment Note Visit Note 05/01 since last PN Visit Start Time 14:36 Visit Stop Time 15:09 Total Visit Minutes 33 Visit Number 11 Precautions Precautions Fall Risk Sensation Loss in bilateral LE PT-OP-B Current Condition Start: 04/19/19 15:25 Freq: Status: Active Protocol: Document 08/03/19 10:30 LRN (Rec: 08/03/19 16:02 LRN [id number]) Current Condition History of Current Condition Onset Date October 2018 Current Complaints Weakness/Instability with standing/transfers/walking History of Current Condition Patient is a 38 year old female who reports to physical therapy after being diagnosed with Multiple Sclerosis in February 2019. She has c/c of sensation and strength loss in both of her legs. Patient started feeling like she was walking like she was drunk in September of 2018. She started feeling like her legs felt heavy and stairs were starting to scare her at this time. Since then, she has had 2 falls - one in which she hurt her L knee and thought she has fractured her sacrum. Patient has since recieved an X-ray of this area and is following up with her PCP. She has pain at night from her hips down and at times has spasm in lower extremities. Patient reports that currently she is getting assistance from her aunt and parents but has been moving through the household and community primarily with a wheelchair. She is currently living in a day time basement with no stairs to enter. Patient is concerned about grab bars in the house and is looking at installation. She reports that she is currently showering at parent's house on shower chair. 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 She would like to gain more stability and confidence with her movements. 08/03/19: Pt returns following Covid 19 community isolation. Pt notes some improvement in strength. Walking 20-46' with walker and parent assist for chair behind her daily. Prior Treatments and Tests X-Rays Brain MRI - came back normal Spinal Taps Future Testing and Treatments Planned Medical Intervention for MS Treatment Goals Patient/Caregiver Goals 1. Would like to get more stable and confident with her movements. 2. Pt would like to be able to mobilize by walking independently with walker and not with wheelchair. 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 Walking with use of FWW. General mobility with wheelchair. Personal Factors Other Personal Factors That May Effect Past Laminectomy Therapy/Recovery BMI >30 Lives alone PT-OP-C Subjective Start: 04/19/19 15:25 Freq: Status: Active Protocol: Document 08/15/19 14:36 LRN (Rec: 08/15/19 15:14 LRN [id number]) OP-PT Subjective Patient Comments Patient Comments Walked this morning, 46' ft. Trying to walk daily in AM, does stretches in PM. PT-OP-E Functional Tests Start: 04/19/19 15:25 Freq: Status: Active Protocol: Document 08/03/19 10:30 LRN (Rec: 08/03/19 16:02 LRN [id number]) Functional Tests Other 2 min Step Test Name of Test 2 Minute Step Test Score 8 times Comment Norm for 60-64 years olds is 75-107 times. RPE: Somewhat Hard PT-OP-G Mobility & Gait Start: 04/19/19 15:25 Freq: Status: Active Protocol: Document 08/03/19 10:30 LRN (Rec: 08/03/19 16:02 LRN [id number]) OP Mobility Evaluation Bed Mobility Rolling Independent Supine to and from Sit SBA Transfers Sit to Stand Independently with use of hands or railing/walker for stability on standing. Bed to Chair Transfers Independent Wheelchair <-> Plinth. OP Gait Assessment Comments Gait Comments Pt walked in parallel bars a very short distance independently with wheel chair behind her. PT-OP-H Neuro Start: 04/19/19 15:25 Freq: Status: Active Protocol: Document 08/03/19 10:30 LRN (Rec: 08/03/19 16:02 LRN [id number]) Sensation Evaluation Gross Sensation Gross Sensation Left LE Impaired,Right LE Impaired Sensation Description Numbness,Coldness,Heaviness Dermatome Impairments L4,L5,S1 Comments Summary Comments patient could not feel monofilament on bilateral feet throughout L4-S1. Patient did not have proprioceptive awareness of bilateral Great toe when passively flexed or extended. Vital Signs Comments Vital Signs Comments Before Activity: HR 89, SpO2 98% After Step Test: HR 88, SpO2 97% PT-OP-K Range of Motion Start: 04/19/19 15:25 Freq: Status: Active Protocol: Document 08/03/19 10:30 LRN (Rec: 08/03/19 16:02 LR [id number]) Knee Goniometric Range of Motion Knee Right Knee ROM WFL Yes Patient Position Sitting Left Knee ROM WFL Yes Patient Position Sitting Ankle and Foot Goniometric Range of Motion Ankle and Foot ROM Limitations ROM Limitations Soft Tissue Tightness,Muscle Weakness Comments Ankle DF AROM: Right lacks 19 deg's; Left lacks 5 deg's. PT-OP-L Special Tests Start: 04/19/19 15:25 Freq: Status: Active Protocol: Document 08/03/19 10:30 LRN (Rec: 08/03/19 16:02 LR [id number]) Special Tests Neural Special Tests- Lower Body Clonus Test Results + Comments non-fatiguing clonus on R PT-OP-M Strength Start: 04/19/19 15:25 Freq: Status: Active Protocol: Document 08/03/19 10:30 LRN (Rec: 08/03/19 16:02 LR [id number]) Hip Strength Hip Manual Muscle Testing Left Flexion (L2) 3 Fair Abduction 2 Poor Adduction 3 Fair Right Flexion (L2) 2 Poor Abduction 2 Poor Adduction 2- Poor- Knee Strength Knee Manual Muscle Testing Left Flexion (S2) 3+ Fair+ Extension (L3) 5 Normal Right Flexion (S2) 3+ Fair+ Extension (L3) 5 Normal Ankle/Foot Strength Ankle and Foot Manual Muscle Testing Right Dorsiflexion (L4) 3+ Fair+ Plantarflexion (S1) 1 Trace Left Dorsiflexion (L4) 3+ Fair+ Plantarflexion (S1) 2 Poor PT-OP-Q Treatments Start: 04/19/19 15:25 Freq: Status: Active Protocol: Document 08/15/19 14:36 LRN (Rec: 08/15/19 15:14 LRN [id number]) Gym Equipment Shuttle Recovery Bilateral Squats Details Squats with manual support to ankles and knees Resistance 50# Shuttle Recovery Platform Stable Reps/Time 10x slow and controlled. Therapeutic Exercises Sitting Exercises Ankle strengthening Sitting Exercise Name Active DF Side bilateral Resistance None & Lev 1 T-Band Reps/Minutes 3x10, T-Band: 8x right, 10 x left Comments Pt was not able to perform full motion with T-Band after 2(R) to 5(L) reps. Gastrocnemius stretch Sitting Exercise Name Gastroc stretch - manual Side bilateral Comments Stretch with manual JMT to ankle to promote DF Plantar/Dorsiflexion Sitting Exercise Name Dorsiflexion in seated stretch Side bilateral Reps/Minutes 30 holds 3x each Comments RLE reqd lowering after a couple stretches due to onset of anter aparicio pn Standing Exercises Marching Standing Exercise Name Marching to start Equipment Used // Bars. Comments Attempted 3 x with rest between bouts. Knees buckled PT-OP-T Assessment and Plan Start: 04/19/19 15:25 Freq: Status: Active Protocol: Document 08/15/19 14:36 LRN (Rec: 08/15/19 15:14 LRN [id number]) Physical Therapy Assessment Goals Four Impairment Gait Short Term Goal (STG) Patient will walk 20 feet in / / bars in 2-4 weeks. 08/13/19: GOAL MET. Pt is walking at home 23' with FWW and sometimes 46'. STG Duration 2-4 weeks (08/03/19 GOAL MET) Rfid Specialist Goal (LTG) Patient will walk 100 feet with FWW in 6-8 weeks. LTG Duration 10/06/19 (08/03/19 Pt walks 23-46' with FWW at home). Three Impairment Balance Short Term Goal (STG) Patient will campus chaplain // bars for 3 minutes without loss of balance in 2 weeks. 08/03/19: NOT MET, pt stands 30 sec's. STG Duration 08/31/19 (08/03/19: Pt able to stand 30 sec's) Rfid Specialist Goal (LTG) Patient will stand with FWW for 5 minutes without loss of balance in 4-6 weeks. LTG Duration 10/06/19 08/03/19 Two Impairment Functional Activity Short Term Goal (STG) Patient will move from seated to supine independently with ability to move both legs on to bed with assistance from strap in 3 weeks. (08/03/19: GOAL MET in AM, in PM legs slide out of strap support) STG Duration 08/31/19 (08/03/19: Pt able to do independently in AM) Rfid Specialist Goal (LTG) Patient will move from seated to supine independently without assistance from external device with ability to swing both legs on to bed with a controlled movement to supine in 5 weeks. LTG Duration 10/06/19 (08/03/19 One Impairment Transfers Short Term Goal (STG) Patient will perform stand- pivot transfers independently with 90% confidence from wheelchair to bed in 4 weeks. (08/03/19: Progressing towards goal) STG Duration 08/31/19 (08/03/19: Pt has 80 % confidence) Assisted Goal (LTG) Patient will perform stand- pivot transfer independently with 100% confidence from wheelchair to bed in 6-8 weeks . LTG Duration 10/06/19 (08/03/19: GOAL NOT MET) Progress Towards Goals Progress Towards Goals Slow Progress due to Activity Tolerance Assessment Summary Assessment Pt not able to tolerate standing activities, with legs buckling from the start of therapy. Pt able to perform ankle DF in sitting with Lev 1 T-Band resistance on L (5) > R (2) prior to fatigue and loss of movement. Shuttle, pt needed assist to keep ankles from rolling inward and knees from hyper-extending. Pt much weaker today to start with legs giving out after May . Physical Therapy Plan Frequency and Duration Frequency of Treatment 2x/Week Duration of Treatment 8 weeks Plan of Care Start Date 08/03/19 Plan of Care End Date 10/02/19 Next Visit Focus/Plan Next Note Type Treatment Note Next Visit Plan Assess Core strength. Strengthening LE's ankles, hip AB's for functional standing and walking, try side stepping at bar or //bars if tolerated . Gait training, Endurance ex for walking and improving function of 2' step test, transfer training, stand pivot/neuro re-ed training to improve confidence level.
--- NOTE | 2019-08-15 20:49 | PT.OTN ---
Current Diagnoses Multiple sclerosis (08/15/19) Muscle weakness (generalized) (08/15/19) History of falling (08/15/19) Physical Therapy Treatment Note PT-OP-A Visit Information Start: 04/19/19 15:25 Freq: Status: Active Protocol: Document 08/15/19 14:36 LRN (Rec: 08/15/19 15:14 LRN [id number]) Out-Patient Physical Therapy Visit Information Visit Information Visit Type Treatment Note Visit Note 05/01 since last PN Visit Start Time 14:36 Visit Stop Time 15:09 Total Visit Minutes 33 Visit Number 11 Precautions Precautions Fall Risk Sensation Loss in bilateral LE PT-OP-B Current Condition Start: 04/19/19 15:25 Freq: Status: Active Protocol: Document 08/03/19 10:30 LRN (Rec: 08/03/19 16:02 LRN [id number]) Current Condition History of Current Condition Onset Date October 2018 Current Complaints Weakness/Instability with standing/transfers/walking History of Current Condition Patient is a 38 year old female who reports to physical therapy after being diagnosed with Multiple Sclerosis in February 2019. She has c/c of sensation and strength loss in both of her legs. Patient started feeling like she was walking like she was drunk in September of 2018. She started feeling like her legs felt heavy and stairs were starting to scare her at this time. Since then, she has had 2 falls - one in which she hurt her L knee and thought she has fractured her sacrum. Patient has since recieved an X-ray of this area and is following up with her PCP. She has pain at night from her hips down and at times has spasm in lower extremities. Patient reports that currently she is getting assistance from her aunt and parents but has been moving through the household and community primarily with a wheelchair. She is currently living in a day time basement with no stairs to enter. Patient is concerned about grab bars in the house and is looking at installation. She reports that she is currently showering at parent's house on shower chair. 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 She would like to gain more stability and confidence with her movements. 08/03/19: Pt returns following Covid 19 community isolation. Pt notes some improvement in strength. Walking 20-46' with walker and parent assist for chair behind her daily. Prior Treatments and Tests X-Rays Brain MRI - came back normal Spinal Taps Future Testing and Treatments Planned Medical Intervention for MS Treatment Goals Patient/Caregiver Goals 1. Would like to get more stable and confident with her movements. 2. Pt would like to be able to mobilize by walking independently with walker and not with wheelchair. 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 Walking with use of FWW. General mobility with wheelchair. Personal Factors Other Personal Factors That May Effect Past Laminectomy Therapy/Recovery BMI >30 Lives alone PT-OP-C Subjective Start: 04/19/19 15:25 Freq: Status: Active Protocol: Document 08/15/19 14:36 LRN (Rec: 08/15/19 15:14 LRN [id number]) OP-PT Subjective Patient Comments Patient Comments Walked this morning, 46' ft. Trying to walk daily in AM, does stretches in PM. PT-OP-E Functional Tests Start: 04/19/19 15:25 Freq: Status: Active Protocol: Document 08/03/19 10:30 LRN (Rec: 08/03/19 16:02 LRN [id number]) Functional Tests Other 2 min Step Test Name of Test 2 Minute Step Test Score 8 times Comment Norm for 60-64 years olds is 75-107 times. RPE: Somewhat Hard PT-OP-G Mobility & Gait Start: 04/19/19 15:25 Freq: Status: Active Protocol: Document 08/03/19 10:30 LRN (Rec: 08/03/19 16:02 LRN [id number]) OP Mobility Evaluation Bed Mobility Rolling Independent Supine to and from Sit SBA Transfers Sit to Stand Independently with use of hands or railing/walker for stability on standing. Bed to Chair Transfers Independent Wheelchair <-> Plinth. OP Gait Assessment Comments Gait Comments Pt walked in parallel bars a very short distance independently with wheel chair behind her. PT-OP-H Neuro Start: 04/19/19 15:25 Freq: Status: Active Protocol: Document 08/03/19 10:30 LRN (Rec: 08/03/19 16:02 LRN [id number]) Sensation Evaluation Gross Sensation Gross Sensation Left LE Impaired,Right LE Impaired Sensation Description Numbness,Coldness,Heaviness Dermatome Impairments L4,L5,S1 Comments Summary Comments patient could not feel monofilament on bilateral feet throughout L4-S1. Patient did not have proprioceptive awareness of bilateral Great toe when passively flexed or extended. Vital Signs Comments Vital Signs Comments Before Activity: HR 89, SpO2 98% After Step Test: HR 88, SpO2 97% PT-OP-K Range of Motion Start: 04/19/19 15:25 Freq: Status: Active Protocol: Document 08/03/19 10:30 LRN (Rec: 08/03/19 16:02 LR [id number]) Knee Goniometric Range of Motion Knee Right Knee ROM WFL Yes Patient Position Sitting Left Knee ROM WFL Yes Patient Position Sitting Ankle and Foot Goniometric Range of Motion Ankle and Foot ROM Limitations ROM Limitations Soft Tissue Tightness,Muscle Weakness Comments Ankle DF AROM: Right lacks 19 deg's; Left lacks 5 deg's. PT-OP-L Special Tests Start: 04/19/19 15:25 Freq: Status: Active Protocol: Document 08/03/19 10:30 LRN (Rec: 08/03/19 16:02 LR [id number]) Special Tests Neural Special Tests- Lower Body Clonus Test Results + Comments non-fatiguing clonus on R PT-OP-M Strength Start: 04/19/19 15:25 Freq: Status: Active Protocol: Document 08/03/19 10:30 LRN (Rec: 08/03/19 16:02 LR [id number]) Hip Strength Hip Manual Muscle Testing Left Flexion (L2) 3 Fair Abduction 2 Poor Adduction 3 Fair Right Flexion (L2) 2 Poor Abduction 2 Poor Adduction 2- Poor- Knee Strength Knee Manual Muscle Testing Left Flexion (S2) 3+ Fair+ Extension (L3) 5 Normal Right Flexion (S2) 3+ Fair+ Extension (L3) 5 Normal Ankle/Foot Strength Ankle and Foot Manual Muscle Testing Right Dorsiflexion (L4) 3+ Fair+ Plantarflexion (S1) 1 Trace Left Dorsiflexion (L4) 3+ Fair+ Plantarflexion (S1) 2 Poor PT-OP-Q Treatments Start: 04/19/19 15:25 Freq: Status: Active Protocol: Document 08/15/19 14:36 LRN (Rec: 08/15/19 15:14 LRN [id number]) Gym Equipment Shuttle Recovery Bilateral Squats Details Squats with manual support to ankles and knees Resistance 50# Shuttle Recovery Platform Stable Reps/Time 10x slow and controlled. Therapeutic Exercises Sitting Exercises Trunk flex Sitting Exercise Name Trunk Flex Resistance Lev 1 T-Band Reps/Minutes 10x Comments T-Band wrapped around W/C and anterior chest Ankle strengthening Sitting Exercise Name Active DF Side bilateral Resistance None & Lev 1 T-Band Reps/Minutes 3x10, T-Band: 8x right, 10 x left Comments Pt was not able to perform full motion with T-Band after 2(R) to 5(L) reps. Gastrocnemius stretch Sitting Exercise Name Gastroc stretch - manual Side bilateral Comments Stretch with manual JMT to ankle to promote DF Plantar/Dorsiflexion Sitting Exercise Name Dorsiflexion in seated stretch Side bilateral Reps/Minutes 30 holds 3x each Comments RLE reqd lowering after a couple stretches due to onset of anter aparicio pn Standing Exercises Marching Standing Exercise Name Marching to start Equipment Used // Bars. Comments Attempted 3 x with rest between bouts. Knees buckled PT-OP-T Assessment and Plan Start: 04/19/19 15:25 Freq: Status: Active Protocol: Document 08/15/19 14:36 LRN (Rec: 08/15/19 15:14 LRN [id number]) Physical Therapy Assessment Goals Four Impairment Gait Short Term Goal (STG) Patient will walk 20 feet in / / bars in 2-4 weeks. 08/13/19: GOAL MET. Pt is walking at home 23' with FWW and sometimes 46'. STG Duration 2-4 weeks (08/03/19 GOAL MET) [facility] Goal (LTG) Patient will walk 100 feet with FWW in 6-8 weeks. LTG Duration 10/06/19 (08/03/19 Pt walks 23-46' with FWW at home). 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 08/03/19: NOT MET, pt stands 30 sec's. STG Duration 08/31/19 (08/03/19: Pt able to stand 30 sec's) [facility] Goal (LTG) Patient will stand with FWW for 5 minutes without loss of balance in 4-6 weeks. LTG Duration 10/06/19 08/03/19 Two Impairment Functional Activity Short Term Goal (STG) Patient will move from seated to supine independently with ability to move both legs on to bed with assistance from strap in 3 weeks. (08/03/19: GOAL MET in AM, in PM legs slide out of strap support) STG Duration 08/31/19 (08/03/19: Pt able to do independently in AM) [facility] Goal (LTG) Patient will move from seated to supine independently without assistance from external device with ability to swing both legs on to bed with a controlled movement to supine in 5 weeks. LTG Duration 10/06/19 (08/03/19 One Impairment Transfers Short Term Goal (STG) Patient will perform stand- pivot transfers independently with 90% confidence from wheelchair to bed in 4 weeks. (08/03/19: Progressing towards goal) STG Duration 08/31/19 (08/03/19: Pt has 80 % confidence) [employer] Goal (LTG) Patient will perform stand- pivot transfer independently with 100% confidence from wheelchair to bed in 6-8 weeks . LTG Duration 10/06/19 (08/03/19: GOAL NOT MET) Progress Towards Goals Progress Towards Goals Slow Progress due to Activity Tolerance Assessment Summary Assessment Pt not able to tolerate standing activities, with legs buckling from the start of therapy. Pt able to perform ankle DF in sitting with Lev 1 T-Band resistance on L (5) > R (2) prior to fatigue and loss of movement. Shuttle, pt needed assist to keep ankles from rolling inward and knees from hyper-extending. Pt much weaker today to start with legs giving out after May . Physical Therapy Plan Frequency and Duration Frequency of Treatment 2x/Week Duration of Treatment 8 weeks Plan of Care Start Date 08/03/19 Plan of Care End Date 10/02/19 Next Visit Focus/Plan Next Note Type Treatment Note Next Visit Plan Assess Core strength. Strengthening LE's ankles, hip AB's for functional standing and walking, try side stepping at bar or //bars if tolerated . Gait training, Endurance ex for walking and improving function of 2' step test, transfer training, stand pivot/neuro re-ed training to improve confidence level.
--- NOTE | 2019-08-22 18:13 | PT.OTN ---
Current Diagnoses Multiple sclerosis (08/22/19) Muscle weakness (generalized) (08/22/19) History of falling (08/22/19) Physical Therapy Treatment Note PT-OP-A Visit Information Start: 04/19/19 15:25 Freq: Status: Active Protocol: Document 08/22/19 14:43 LRN (Rec: 08/22/19 15:11 LRN [id number]) Out-Patient Physical Therapy Visit Information Visit Information Visit Type Treatment Note Visit Note 05/29 since last PN Visit Start Time 14:43 Visit Stop Time 15:11 Total Visit Minutes 28 Visit Number 12 Evaluation Information Evaluation Date 04/19/19 Precautions Precautions Fall Risk Sensation Loss in bilateral LE PT-OP-B Current Condition Start: 04/19/19 15:25 Freq: Status: Active Protocol: Document 08/03/19 10:30 LRN (Rec: 08/03/19 16:02 LRN [id number]) Current Condition History of Current Condition Onset Date October 2018 Current Complaints Weakness/Instability with standing/transfers/walking History of Current Condition Patient is a 38 year old female who reports to physical therapy after being diagnosed with Multiple Sclerosis in February 2019. She has c/c of sensation and strength loss in both of her legs. Patient started feeling like she was walking like she was drunk in September of 2018. She started feeling like her legs felt heavy and stairs were starting to scare her at this time. Since then, she has had 2 falls - one in which she hurt her L knee and thought she has fractured her sacrum. Patient has since recieved an X-ray of this area and is following up with her PCP. She has pain at night from her hips down and at times has spasm in lower extremities. Patient reports that currently she is getting assistance from her aunt and parents but has been moving through the household and community primarily with a wheelchair. She is currently living in a day time basement with no stairs to enter. Patient is concerned about grab bars in the house and is looking at installation. She reports that she is currently showering at parent's house on shower chair. 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 She would like to gain more stability and confidence with her movements. 08/03/19: Pt returns following Covid 19 community isolation. Pt notes some improvement in strength. Walking 20-46' with walker and parent assist for chair behind her daily. Prior Treatments and Tests X-Rays Brain MRI - came back normal Spinal Taps Future Testing and Treatments Planned Medical Intervention for MS Treatment Goals Patient/Caregiver Goals 1. Would like to get more stable and confident with her movements. 2. Pt would like to be able to mobilize by walking independently with walker and not with wheelchair. 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 Walking with use of FWW. General mobility with wheelchair. Personal Factors Other Personal Factors That May Effect Past Laminectomy Therapy/Recovery BMI >30 Lives alone PT-OP-C Subjective Start: 04/19/19 15:25 Freq: Status: Active Protocol: Document 08/22/19 14:43 LRN (Rec: 08/22/19 15:11 LRN [id number]) OP-PT Subjective Patient Comments Patient Comments Pt states she did not do walking this morning yet; therefore may be stronger. States she is now trying to track her exercise but forgot her log at home. PT-OP-E Functional Tests Start: 04/19/19 15:25 Freq: Status: Active Protocol: Document 08/03/19 10:30 LRN (Rec: 08/03/19 16:02 LRN [id number]) Functional Tests Other 2 min Step Test Name of Test 2 Minute Step Test Score 8 times Comment Norm for 60-64 years olds is 75-107 times. RPE: Somewhat Hard PT-OP-G Mobility & Gait Start: 04/19/19 15:25 Freq: Status: Active Protocol: Document 08/03/19 10:30 LRN (Rec: 08/03/19 16:02 LRN [id number]) OP Mobility Evaluation Bed Mobility Rolling Independent Supine to and from Sit SBA Transfers Sit to Stand Independently with use of hands or railing/walker for stability on standing. Bed to Chair Transfers Independent Wheelchair <-> Plinth. OP Gait Assessment Comments Gait Comments Pt walked in parallel bars a very short distance independently with wheel chair behind her. PT-OP-H Neuro Start: 04/19/19 15:25 Freq: Status: Active Protocol: Document 08/03/19 10:30 LRN (Rec: 08/03/19 16:02 LRN [id number]) Sensation Evaluation Gross Sensation Gross Sensation Left LE Impaired,Right LE Impaired Sensation Description Numbness,Coldness,Heaviness Dermatome Impairments L4,L5,S1 Comments Summary Comments patient could not feel monofilament on bilateral feet throughout L4-S1. Patient did not have proprioceptive awareness of bilateral Great toe when passively flexed or extended. Vital Signs Comments Vital Signs Comments Before Activity: HR 89, SpO2 98% After Step Test: HR 88, SpO2 97% PT-OP-K Range of Motion Start: 04/19/19 15:25 Freq: Status: Active Protocol: Document 08/03/19 10:30 LRN (Rec: 08/03/19 16:02 LRN [id number]) Knee Goniometric Range of Motion Knee Right Knee ROM WFL Yes Patient Position Sitting Left Knee ROM WFL Yes Patient Position Sitting Ankle and Foot Goniometric Range of Motion Ankle and Foot ROM Limitations ROM Limitations Soft Tissue Tightness,Muscle Weakness Comments Ankle DF AROM: Right lacks 19 deg's; Left lacks 5 deg's. PT-OP-L Special Tests Start: 04/19/19 15:25 Freq: Status: Active Protocol: Document 08/03/19 10:30 LRN (Rec: 08/03/19 16:02 LRN [id number]) Special Tests Neural Special Tests- Lower Body Clonus Test Results + Comments non-fatiguing clonus on R PT-OP-M Strength Start: 04/19/19 15:25 Freq: Status: Active Protocol: Document 08/03/19 10:30 LRN (Rec: 08/03/19 16:02 LRN [id number]) Hip Strength Hip Manual Muscle Testing Left Flexion (L2) 3 Fair Abduction 2 Poor Adduction 3 Fair Right Flexion (L2) 2 Poor Abduction 2 Poor Adduction 2- Poor- Knee Strength Knee Manual Muscle Testing Left Flexion (S2) 3+ Fair+ Extension (L3) 5 Normal Right Flexion (S2) 3+ Fair+ Extension (L3) 5 Normal Ankle/Foot Strength Ankle and Foot Manual Muscle Testing Right Dorsiflexion (L4) 3+ Fair+ Plantarflexion (S1) 1 Trace Left Dorsiflexion (L4) 3+ Fair+ Plantarflexion (S1) 2 Poor PT-OP-Q Treatments Start: 04/19/19 15:25 Freq: Status: Active Protocol: Document 08/22/19 14:43 LRN (Rec: 08/22/19 15:11 LRN [id number]) Therapeutic Exercises Sitting Exercises Trunk rot Sitting Exercise Name Trunk rot Side bilateral Equipment Used Lev 2 Reps/Minutes 10 x 2 Comments Training for positioning of exercise with hand change positioning each side Ankle DF Sitting Exercise Name Ankle DF Side bilateral Resistance Lev 1 T-Band Comments See below Trunk flex Sitting Exercise Name Trunk Flex Resistance Lev 1 T-Band Reps/Minutes 10x 2 Comments T-Band wrapped around W/C and anterior chest Ankle strengthening Sitting Exercise Name Active DF Side bilateral Resistance Lev 1 T-Band Reps/Minutes 8x, 10x on right; 10x left Comments Pt was not able to perform full motion with T-Band after 2(R) to 5(L) reps. Ankle EV Sitting Exercise Name Ankle EV Equipment Used Lev 1 T-Band Reps/Minutes 18x R, 30x L. Plantar/Dorsiflexion Sitting Exercise Name Dorsiflexion in seated stretch Side bilateral Reps/Minutes 30 holds 3x each Comments RLE reqd lowering after a couple stretches due to onset of anter aparicio pn Standing Exercises Marching Standing Exercise Name Marching to start Equipment Used // Bars. Reps/Minutes 4x, 3x, 4x, 3x Comments Attempted 3 x with rest between bouts. Knees buckled Gait Training Gait Activity Walking in // Bars Description Forward & backward. Device Used // bars with W/C behind her Level of Assistance Indep Surface Level Distance/Duration 1 length of bars (~30') Treatment Focus Proper positioning of the feet . Comments Pt has poor proprioception at her feet; therefore was having difficulty of foot placement with backward walking. Neuro Re-Education Treatment Balance Activities Standing in // bars Details Standing Surface level Equipment // bars Reps/Duration 21 sec Comments Pt used UE's for balance support. PT-OP-T Assessment and Plan Start: 04/19/19 15:25 Freq: Status: Active Protocol: Document 08/22/19 14:43 LRN (Rec: 08/22/19 15:11 LRN [id number]) Physical Therapy Assessment Goals Four Impairment Gait Short Term Goal (STG) Patient will walk 20 feet in / / bars in 2-4 weeks. 08/13/19: GOAL MET. Pt is walking at home 23' with FWW and sometimes 46'. STG Duration 2-4 weeks (08/03/19 GOAL MET) Compensation Supervisor Goal (LTG) Patient will walk 100 feet with FWW in 6-8 weeks. LTG Duration 10/06/19 (08/03/19 Pt walks 23-46' with FWW at home). 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 08/03/19: NOT MET, pt stands 30 sec's. STG Duration 08/31/19 (08/03/19: Pt able to stand 30 sec's) Compensation Supervisor Goal (LTG) Patient will stand with FWW for 5 minutes without loss of balance in 4-6 weeks. LTG Duration 10/06/19 08/03/19 Two Impairment Functional Activity Short Term Goal (STG) Patient will move from seated to supine independently with ability to move both legs on to bed with assistance from strap in 3 weeks. (08/03/19: GOAL MET in AM, in PM legs slide out of strap support) STG Duration 08/31/19 (08/03/19: Pt able to do independently in AM) Compensation Supervisor Goal (LTG) Patient will move from seated to supine independently without assistance from external device with ability to swing both legs on to bed with a controlled movement to supine in 5 weeks. LTG Duration 10/06/19 (08/03/19 One Impairment Transfers Short Term Goal (STG) Patient will perform stand- pivot transfers independently with 90% confidence from wheelchair to bed in 4 weeks. (08/03/19: Progressing towards goal) STG Duration 08/31/19 (08/03/19: Pt has 80 % confidence) Compensation Supervisor Goal (LTG) Patient will perform stand- pivot transfer independently with 100% confidence from wheelchair to bed in 6-8 weeks . LTG Duration 10/06/19 (08/03/19: GOAL NOT MET) Progress Towards Goals Progress Comments Pt static standing was after marching and walking; therefore fatigued and standing balance was worse today. Assessment Summary Assessment Pt has poor proprioception at her feet; therefore has difficulty with backward walking due to fear of ankles inverting. Pt endurance is better when she has not walked at home to start. Today she tolerated 4 sessions of marching, 3-4x each time, and increased reps with her exercises prior to fatigue. Physical Therapy Plan Frequency and Duration Frequency of Treatment 2x/Week Duration of Treatment 8 weeks Plan of Care Start Date 08/03/19 Plan of Care End Date 10/02/19 Next Visit Focus/Plan Next Note Type Treatment Note Next Visit Plan Assess Core strength. Strengthening LE's ankles, hip AB's for functional standing and walking, try side stepping at bar or //bars if tolerated . Gait training, Endurance ex for walking and improving function of 2' step test, transfer training, stand pivot/neuro re-ed training to improve confidence level.
--- NOTE | 2019-08-29 17:11 | PT.OTN ---
Current Diagnoses Multiple sclerosis (08/29/19) Muscle weakness (generalized) (08/29/19) History of falling (08/29/19) Physical Therapy Treatment Note PT-OP-A Visit Information Start: 04/19/19 15:25 Freq: Status: Active Protocol: Document 08/29/19 13:36 LRN (Rec: 08/29/19 14:21 LRN [id number]) Out-Patient Physical Therapy Visit Information Visit Information Visit Type Treatment Note Visit Start Time 13:36 Visit Stop Time 14:19 Total Visit Minutes 43 Visit Number 13 Evaluation Information Evaluation Date 04/19/19 Precautions Precautions Fall Risk Sensation Loss in bilateral LE PT-OP-B Current Condition Start: 04/19/19 15:25 Freq: Status: Active Protocol: Document 08/03/19 10:30 LRN (Rec: 08/03/19 16:02 LRN [id number]) Current Condition History of Current Condition Onset Date October 2018 Current Complaints Weakness/Instability with standing/transfers/walking History of Current Condition Patient is a 38 year old female who reports to physical therapy after being diagnosed with Multiple Sclerosis in February 2019. She has c/c of sensation and strength loss in both of her legs. Patient started feeling like she was walking like she was drunk in September of 2018. She started feeling like her legs felt heavy and stairs were starting to scare her at this time. Since then, she has had 2 falls - one in which she hurt her L knee and thought she has fractured her sacrum. Patient has since recieved an X-ray of this area and is following up with her PCP. She has pain at night from her hips down and at times has spasm in lower extremities. Patient reports that currently she is getting assistance from her aunt and parents but has been moving through the household and community primarily with a wheelchair. She is currently living in a day time basement with no stairs to enter. Patient is concerned about grab bars in the house and is looking at installation. She reports that she is currently showering at parent's house on shower chair. 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 She would like to gain more stability and confidence with her movements. 08/03/19: Pt returns following Covid 19 community isolation. Pt notes some improvement in strength. Walking 20-46' with walker and parent assist for chair behind her daily. Prior Treatments and Tests X-Rays Brain MRI - came back normal Spinal Taps Future Testing and Treatments Planned Medical Intervention for MS Treatment Goals Patient/Caregiver Goals 1. Would like to get more stable and confident with her movements. 2. Pt would like to be able to mobilize by walking independently with walker and not with wheelchair. 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 Walking with use of FWW. General mobility with wheelchair. Personal Factors Other Personal Factors That May Effect Past Laminectomy Therapy/Recovery BMI >30 Lives alone PT-OP-C Subjective Start: 04/19/19 15:25 Freq: Status: Active Protocol: Document 08/29/19 13:36 LRN (Rec: 08/29/19 14:21 LRN [id number]) OP-PT Subjective Patient Comments Patient Comments Didn't sleep well last night. During the day took a shower and was shopping. PT-OP-E Functional Tests Start: 04/19/19 15:25 Freq: Status: Active Protocol: Document 08/03/19 10:30 LRN (Rec: 08/03/19 16:02 LRN [id number]) Functional Tests Other 2 min Step Test Name of Test 2 Minute Step Test Score 8 times Comment Norm for 60-64 years olds is 75-107 times. RPE: Somewhat Hard PT-OP-G Mobility & Gait Start: 04/19/19 15:25 Freq: Status: Active Protocol: Document 08/03/19 10:30 LRN (Rec: 08/03/19 16:02 LRN [id number]) OP Mobility Evaluation Bed Mobility Rolling Independent Supine to and from Sit SBA Transfers Sit to Stand Independently with use of hands or railing/walker for stability on standing. Bed to Chair Transfers Independent Wheelchair <-> Plinth. OP Gait Assessment Comments Gait Comments Pt walked in parallel bars a very short distance independently with wheel chair behind her. PT-OP-H Neuro Start: 04/19/19 15:25 Freq: Status: Active Protocol: Document 08/03/19 10:30 LRN (Rec: 08/03/19 16:02 LRN [id number]) Sensation Evaluation Gross Sensation Gross Sensation Left LE Impaired,Right LE Impaired Sensation Description Numbness,Coldness,Heaviness Dermatome Impairments L4,L5,S1 Comments Summary Comments patient could not feel monofilament on bilateral feet throughout L4-S1. Patient did not have proprioceptive awareness of bilateral Great toe when passively flexed or extended. Vital Signs Comments Vital Signs Comments Before Activity: HR 89, SpO2 98% After Step Test: HR 88, SpO2 97% PT-OP-K Range of Motion Start: 04/19/19 15:25 Freq: Status: Active Protocol: Document 08/03/19 10:30 LRN (Rec: 08/03/19 16:02 LR [id number]) Knee Goniometric Range of Motion Knee Right Knee ROM WFL Yes Patient Position Sitting Left Knee ROM WFL Yes Patient Position Sitting Ankle and Foot Goniometric Range of Motion Ankle and Foot ROM Limitations ROM Limitations Soft Tissue Tightness,Muscle Weakness Comments Ankle DF AROM: Right lacks 19 deg's; Left lacks 5 deg's. PT-OP-L Special Tests Start: 04/19/19 15:25 Freq: Status: Active Protocol: Document 08/03/19 10:30 LRN (Rec: 08/03/19 16:02 LR [id number]) Special Tests Neural Special Tests- Lower Body Clonus Test Results + Comments non-fatiguing clonus on R PT-OP-M Strength Start: 04/19/19 15:25 Freq: Status: Active Protocol: Document 08/03/19 10:30 LRN (Rec: 08/03/19 16:02 LR [id number]) Hip Strength Hip Manual Muscle Testing Left Flexion (L2) 3 Fair Abduction 2 Poor Adduction 3 Fair Right Flexion (L2) 2 Poor Abduction 2 Poor Adduction 2- Poor- Knee Strength Knee Manual Muscle Testing Left Flexion (S2) 3+ Fair+ Extension (L3) 5 Normal Right Flexion (S2) 3+ Fair+ Extension (L3) 5 Normal Ankle/Foot Strength Ankle and Foot Manual Muscle Testing Right Dorsiflexion (L4) 3+ Fair+ Plantarflexion (S1) 1 Trace Left Dorsiflexion (L4) 3+ Fair+ Plantarflexion (S1) 2 Poor PT-OP-Q Treatments Start: 04/19/19 15:25 Freq: Status: Active Protocol: Document 08/29/19 13:36 LRN (Rec: 08/29/19 14:21 LRN [id number]) Therapeutic Exercises Sitting Exercises Trunk rot Sitting Exercise Name Trunk rot Side bilateral Equipment Used Lev 2 Reps/Minutes 10 x 3 Comments Training for ex for endurance and strengthening. Ankle DF Sitting Exercise Name Ankle DF Side bilateral Resistance Lev 1 T-Band Comments See below Trunk flex Sitting Exercise Name Trunk Flex Resistance Lev 2 T-Band Reps/Minutes 10x 3 Comments T-Band wrapped around W/C and anterior chest Ankle strengthening Sitting Exercise Name Active DF Side bilateral Resistance Lev 1 T-Band Reps/Minutes 10x 2 on right; 10x 3 left Comments Pt was not able to perform full motion with T-Band after 2(R) to 5(L) reps. Ankle EV Sitting Exercise Name Ankle EV Equipment Used Lev 1 T-Band Reps/Minutes 3x 5, 4x 5 R, 10x 3 L. Standing Exercises Marching Standing Exercise Name Marching forward to start: See gait section. Therapeutic Activity Therapeutic Activity Sit to Stand with FWW Name Sit to Stand Reps/Minutes 2' Comments Focus on proper foot positioning. Stand Pivot Transfer Name Stand Pivot Transfer Reps/Minutes 2 Comments Independently. Pt tried to step and had uncontrolled descent. Gait Training Gait Activity Walking in // Bars Description Marching Forward Device Used // bars (36 hgt) with W/C behind her Level of Assistance Indep Surface Level Distance/Duration 1 length of bars x 2.5 (~30'): 1) 7 steps, 2) 10 steps, 3) 5 steps Treatment Focus Improving endurance and LE strength and proper positioning of feet. Comments Pt has poor proprioception at her feet and she was having dorsal L foot pain with gait. Inspection of L foot indicates swelling on the top of the foot. Traced around the foot and recommended pt monitor for increase in swelling and bruising. Self-Care/Home Management Treatment Education Patient Education Home Exercise Program Activities Self-Care/Home Management Activities Issued Lev 3 T-Band for greater resistance with HEP ( pt has Lev 2 Band) PT-OP-T Assessment and Plan Start: 04/19/19 15:25 Freq: Status: Active Protocol: Document 08/29/19 13:36 LRN (Rec: 08/29/19 14:21 LRN [id number]) Physical Therapy Assessment Goals Four Impairment Gait Short Term Goal (STG) Patient will walk 20 feet in / / bars in 2-4 weeks. 08/13/19: GOAL MET. Pt is walking at home 23' with FWW and sometimes 46'. STG Duration 2-4 weeks (08/03/19 GOAL MET) Detention Goal (LTG) Patient will walk 100 feet with FWW in 6-8 weeks. (: Pt walked 75' in // bars with 2 rests) LTG Duration 10/06/19 (08/29/19 Pt walks 40-55' with FWW at home). Two Impairment Functional Activity Short Term Goal (STG) Patient will move from seated to supine independently with ability to move both legs on to bed with assistance from strap in 3 weeks. (08/03/19: GOAL MET in AM, in PM legs slide out of strap support) STG Duration 08/31/19 (08/03/19: Pt able to do independently in AM) Detention Goal (LTG) Patient will move from seated to supine independently without assistance from external device with ability to swing both legs on to bed with a controlled movement to supine in 5 weeks. LTG Duration 10/06/19 One Impairment Transfers Short Term Goal (STG) Patient will perform stand- pivot transfers independently with 90% confidence from wheelchair to bed in 4 weeks. (08/29/19: 90% confidence when rested, 80% when tired) STG Duration 08/31/19 (08/03/19: Pt has 80 % confidence) Sexual Assault Counselor Goal (LTG) Patient will perform stand- pivot transfer independently with 100% confidence from wheelchair to bed in 6-8 weeks . LTG Duration 10/06/19 Progress Towards Goals Progress Comments Gait 40-55' with FWW at home. In clinic (PM) to start, gait 30' x 2.5 with 2 sitting rests. Assessment Summary Assessment Endurance appears improved, see above. Good understanding of trunk control. Ankles weak. Pt has swelling on top of L foot causing discomfort with gait. Pt appears very consistent with HEP. Physical Therapy Plan Frequency and Duration Frequency of Treatment 2x/Week Duration of Treatment 8 weeks Plan of Care Start Date 08/03/19 Plan of Care End Date 10/02/19 Next Visit Focus/Plan Next Note Type Treatment Note Next Visit Plan MMT Core strength in sitting. Progress strengthening LE's ankles, hip AB's for functional standing and walking, try side stepping at bar or //bars if tolerated. Gait training, Endurance ex for walking and improving function of 2' step test, transfer training, stand pivot/neuro re-ed training to improve confidence level.
--- NOTE | 2019-09-05 17:24 | PT.OTN ---
Current Diagnoses Multiple sclerosis (09/05/19) Muscle weakness (generalized) (09/05/19) History of falling (09/05/19) Physical Therapy Treatment Note PT-OP-A Visit Information Start: 04/19/19 15:25 Freq: Status: Active Protocol: Document 09/05/19 09:54 LRN (Rec: 09/05/19 10:36 LRN [id number]) Out-Patient Physical Therapy Visit Information Visit Information Visit Type Treatment Note Visit Start Time 09:54 Visit Stop Time 10:34 Total Visit Minutes 40 Visit Number 14 Evaluation Information Evaluation Date 04/19/19 Precautions Precautions Fall Risk Sensation Loss in bilateral LE PT-OP-B Current Condition Start: 04/19/19 15:25 Freq: Status: Active Protocol: Document 08/03/19 10:30 LRN (Rec: 08/03/19 16:02 LRN [id number]) Current Condition History of Current Condition Onset Date October 2018 Current Complaints Weakness/Instability with standing/transfers/walking History of Current Condition Patient is a 38 year old female who reports to physical therapy after being diagnosed with Multiple Sclerosis in February 2019. She has c/c of sensation and strength loss in both of her legs. Patient started feeling like she was walking like she was drunk in September of 2018. She started feeling like her legs felt heavy and stairs were starting to scare her at this time. Since then, she has had 2 falls - one in which she hurt her L knee and thought she has fractured her sacrum. Patient has since recieved an X-ray of this area and is following up with her PCP. She has pain at night from her hips down and at times has spasm in lower extremities. Patient reports that currently she is getting assistance from her aunt and parents but has been moving through the household and community primarily with a wheelchair. She is currently living in a day time basement with no stairs to enter. Patient is concerned about grab bars in the house and is looking at installation. She reports that she is currently showering at parent's house on shower chair. 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 She would like to gain more stability and confidence with her movements. 08/03/19: Pt returns following Covid 19 community isolation. Pt notes some improvement in strength. Walking 20-46' with walker and parent assist for chair behind her daily. Prior Treatments and Tests X-Rays Brain MRI - came back normal Spinal Taps Future Testing and Treatments Planned Medical Intervention for MS Treatment Goals Patient/Caregiver Goals 1. Would like to get more stable and confident with her movements. 2. Pt would like to be able to mobilize by walking independently with walker and not with wheelchair. 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 Walking with use of FWW. General mobility with wheelchair. Personal Factors Other Personal Factors That May Effect Past Laminectomy Therapy/Recovery BMI >30 Lives alone PT-OP-C Subjective Start: 04/19/19 15:25 Freq: Status: Active Protocol: Document 09/05/19 09:54 LRN (Rec: 09/05/19 10:36 LRN [id number]) OP-PT Subjective Patient Comments Patient Comments No changes good or bad. No changes with walking distances . 3 days ago torqued the L ankle again, so iced the ankle and went to bed. Next morning it didn't hurt. PT-OP-E Functional Tests Start: 04/19/19 15:25 Freq: Status: Active Protocol: Document 08/03/19 10:30 LRN (Rec: 08/03/19 16:02 LRN [id number]) Functional Tests Other 2 min Step Test Name of Test 2 Minute Step Test Score 8 times Comment Norm for 60-64 years olds is 75-107 times. RPE: Somewhat Hard PT-OP-G Mobility & Gait Start: 04/19/19 15:25 Freq: Status: Active Protocol: Document 08/03/19 10:30 LRN (Rec: 08/03/19 16:02 LRN [id number]) OP Mobility Evaluation Bed Mobility Rolling Independent Supine to and from Sit SBA Transfers Sit to Stand Independently with use of hands or railing/walker for stability on standing. Bed to Chair Transfers Independent Wheelchair <-> Plinth. OP Gait Assessment Comments Gait Comments Pt walked in parallel bars a very short distance independently with wheel chair behind her. PT-OP-H Neuro Start: 04/19/19 15:25 Freq: Status: Active Protocol: Document 08/03/19 10:30 LRN (Rec: 08/03/19 16:02 LRN [id number]) Sensation Evaluation Gross Sensation Gross Sensation Left LE Impaired,Right LE Impaired Sensation Description Numbness,Coldness,Heaviness Dermatome Impairments L4,L5,S1 Comments Summary Comments patient could not feel monofilament on bilateral feet throughout L4-S1. Patient did not have proprioceptive awareness of bilateral Great toe when passively flexed or extended. Vital Signs Comments Vital Signs Comments Before Activity: HR 89, SpO2 98% After Step Test: HR 88, SpO2 97% PT-OP-K Range of Motion Start: 04/19/19 15:25 Freq: Status: Active Protocol: Document 08/03/19 10:30 LRN (Rec: 08/03/19 16:02 LRN [id number]) Knee Goniometric Range of Motion Knee Right Knee ROM WFL Yes Patient Position Sitting Left Knee ROM WFL Yes Patient Position Sitting Ankle and Foot Goniometric Range of Motion Ankle and Foot ROM Limitations ROM Limitations Soft Tissue Tightness,Muscle Weakness Comments Ankle DF AROM: Right lacks 19 deg's; Left lacks 5 deg's. PT-OP-L Special Tests Start: 04/19/19 15:25 Freq: Status: Active Protocol: Document 08/03/19 10:30 LRN (Rec: 08/03/19 16:02 LRN [id number]) Special Tests Neural Special Tests- Lower Body Clonus Test Results + Comments non-fatiguing clonus on R PT-OP-M Strength Start: 04/19/19 15:25 Freq: Status: Active Protocol: Document 08/03/19 10:30 LRN (Rec: 08/03/19 16:02 LRN [id number]) Hip Strength Hip Manual Muscle Testing Left Flexion (L2) 3 Fair Abduction 2 Poor Adduction 3 Fair Right Flexion (L2) 2 Poor Abduction 2 Poor Adduction 2- Poor- Knee Strength Knee Manual Muscle Testing Left Flexion (S2) 3+ Fair+ Extension (L3) 5 Normal Right Flexion (S2) 3+ Fair+ Extension (L3) 5 Normal Ankle/Foot Strength Ankle and Foot Manual Muscle Testing Right Dorsiflexion (L4) 3+ Fair+ Plantarflexion (S1) 1 Trace Left Dorsiflexion (L4) 3+ Fair+ Plantarflexion (S1) 2 Poor PT-OP-Q Treatments Start: 04/19/19 15:25 Freq: Status: Active Protocol: Document 09/05/19 09:54 LRN (Rec: 09/05/19 10:36 LRN [id number]) Therapeutic Exercises Sitting Exercises Trunk Ext Sitting Exercise Name Trunk Ext Equipment Used Lev 2 TB Reps/Minutes 10x Trunk rot Sitting Exercise Name Trunk rot Side bilateral Equipment Used Lev 2 Reps/Minutes 10 x Ankle DF Sitting Exercise Name Ankle DF Strengthening Side bilateral Resistance Lev 1 T-Band Reps/Minutes 10 x 3 Comments L ft full tension. R foot tension needed determined for maximal lift Trunk flex Sitting Exercise Name Trunk Flex Resistance Lev 2 T-Band Reps/Minutes 10x Ankle EV Sitting Exercise Name Ankle EV strengthening Equipment Used Lev 1 T-Band Reps/Minutes 10 x 3 with short pauses R, 10x 3 L. Standing Exercises Trunk rotation Standing Exercise Name Standing trunk rot with pelvic mvmt and without. Side bilateral Equipment Used // bars Reps/Minutes 10x each and in each direction Comments Primarily weight through UE's Gait Training Gait Activity Weight shift in // bars Description Weight shifting in // bars Treatment Focus 3' Walking in // Bars Description Marching Forward Device Used // bars (36 hgt) with W/C behind her Level of Assistance Indep Surface Level Distance/Duration 1 length of bars x 2.5 (~30'): 1) 10 steps, 2) 4 steps, 3& 4) 6 steps Treatment Focus Improving endurance and LE strength and proper positioning of feet. Comments Pt has poor proprioception Inspection of L foot indicates no swelling and no palpable pain. Pt marches higher with L leg. PT-OP-T Assessment and Plan Start: 04/19/19 15:25 Freq: Status: Active Protocol: Document 09/05/19 09:54 LRN (Rec: 09/05/19 17:24 LRN [id number]) Physical Therapy Assessment Goals Four Impairment Gait Short Term Goal (STG) Patient will walk 20 feet in / / bars in 2-4 weeks. 08/13/19: GOAL MET. Pt is walking at home 23' with FWW and sometimes 46'. STG Duration 2-4 weeks (08/03/19 GOAL MET) Intermediate Goal (LTG) Patient will walk 100 feet with FWW in 6-8 weeks. (: Pt walked 75' in // bars with 2 rests) LTG Duration 10/06/19 (08/29/19 Pt walks 40-55' with FWW at home). Three Impairment Balance Short Term Goal (STG) Patient will engine setter // bars for 3 minutes without loss of balance in 2 weeks. 08/03/19: NOT MET, pt stands 30 sec's. STG Duration 08/31/19 (08/03/19: Pt able to stand 30 sec's) Senior Research Manager Goal (LTG) Patient will stand with FWW for 5 minutes without loss of balance in 4-6 weeks. LTG Duration 10/06/19 08/03/19 Two Impairment Functional Activity Short Term Goal (STG) Patient will move from seated to supine independently with ability to move both legs on to bed with assistance from strap in 3 weeks. (08/03/19: GOAL MET in AM, in PM legs slide out of strap support) STG Duration 08/31/19 (08/03/19: Pt able to do independently in AM) Intermediate Goal (LTG) Patient will move from seated to supine independently without assistance from external device with ability to swing both legs on to bed with a controlled movement to supine in 5 weeks. LTG Duration 10/06/19 One Impairment Transfers Short Term Goal (STG) Patient will perform stand- pivot transfers independently with 90% confidence from wheelchair to bed in 4 weeks. (08/29/19: 90% confidence when rested, 80% when tired) STG Duration 08/31/19 (08/03/19: Pt has 80 % confidence) Intermediate Goal (LTG) Patient will perform stand- pivot transfer independently with 100% confidence from wheelchair to bed in 6-8 weeks . LTG Duration 10/06/19 Assessment Summary Assessment Pt progression of endurance is very slow with pt not able to exercise with pool therapy. She is able to tolerate standing longer if she can shift weight from one LE to another. Might try Biodex at end of treatment for strengthening/endarance. Physical Therapy Plan Frequency and Duration Frequency of Treatment 2x/Week Duration of Treatment 8 weeks Plan of Care Start Date 08/03/19 Plan of Care End Date 10/02/19 Next Visit Focus/Plan Next Note Type Treatment Note Next Visit Plan Assess transfer progress. MMT Core strength in sitting. Progress strengthening LE's ankles, hip AB's for functional standing and walking, try side stepping at bar or //bars if tolerated. Gait training, Endurance ex for walking and improving function of 2' step test, transfer training, stand pivot/neuro re-ed training to improve confidence level.
--- NOTE | 2019-09-12 17:54 | PT.OTN ---
Current Diagnoses Multiple sclerosis (09/12/19) Muscle weakness (generalized) (09/12/19) History of falling (09/12/19) Physical Therapy Treatment Note PT-OP-A Visit Information Start: 04/19/19 15:25 Freq: Status: Active Protocol: Document 09/12/19 11:23 LRN (Rec: 09/12/19 12:12 LRN [id number]) Out-Patient Physical Therapy Visit Information Visit Information Visit Type Treatment Note Visit Start Time 11:23 Visit Stop Time 12:08 Total Visit Minutes 45 Visit Number 15 Evaluation Information Evaluation Date 04/19/19 Precautions Precautions Fall Risk Sensation Loss in bilateral LE PT-OP-B Current Condition Start: 04/19/19 15:25 Freq: Status: Active Protocol: Document 08/03/19 10:30 LRN (Rec: 08/03/19 16:02 LRN [id number]) Current Condition History of Current Condition Onset Date October 2018 Current Complaints Weakness/Instability with standing/transfers/walking History of Current Condition Patient is a 38 year old female who reports to physical therapy after being diagnosed with Multiple Sclerosis in February 2019. She has c/c of sensation and strength loss in both of her legs. Patient started feeling like she was walking like she was drunk in September of 2018. She started feeling like her legs felt heavy and stairs were starting to scare her at this time. Since then, she has had 2 falls - one in which she hurt her L knee and thought she has fractured her sacrum. Patient has since recieved an X-ray of this area and is following up with her PCP. She has pain at night from her hips down and at times has spasm in lower extremities. Patient reports that currently she is getting assistance from her aunt and parents but has been moving through the household and community primarily with a wheelchair. She is currently living in a day time basement with no stairs to enter. Patient is concerned about grab bars in the house and is looking at installation. She reports that she is currently showering at parent's house on shower chair. 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 She would like to gain more stability and confidence with her movements. 08/03/19: Pt returns following Covid 19 community isolation. Pt notes some improvement in strength. Walking 20-46' with walker and parent assist for chair behind her daily. Prior Treatments and Tests X-Rays Brain MRI - came back normal Spinal Taps Future Testing and Treatments Planned Medical Intervention for MS Treatment Goals Patient/Caregiver Goals 1. Would like to get more stable and confident with her movements. 2. Pt would like to be able to mobilize by walking independently with walker and not with wheelchair. 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 Walking with use of FWW. General mobility with wheelchair. Personal Factors Other Personal Factors That May Effect Past Laminectomy Therapy/Recovery BMI >30 Lives alone PT-OP-C Subjective Start: 04/19/19 15:25 Freq: Status: Active Protocol: Document 09/12/19 11:23 LRN (Rec: 09/12/19 12:12 LRN [id number]) OP-PT Subjective Patient Comments Patient Comments Walking was harder this week. Walking on avg 30' and a couple days its been really hard, haven't been able to go 2 times. Hips keep popping, no pain, when lying down and moving. Transfer confidence is 90%. Has been trasferring more lately and transfer has been smooth and not bad. PT-OP-E Functional Tests Start: 04/19/19 15:25 Freq: Status: Active Protocol: Document 08/03/19 10:30 LRN (Rec: 08/03/19 16:02 LRN [id number]) Functional Tests Other 2 min Step Test Name of Test 2 Minute Step Test Score 8 times Comment Norm for 60-64 years olds is 75-107 times. RPE: Somewhat Hard PT-OP-G Mobility & Gait Start: 04/19/19 15:25 Freq: Status: Active Protocol: Document 08/03/19 10:30 LRN (Rec: 08/03/19 16:02 LRN [id number]) OP Mobility Evaluation Bed Mobility Rolling Independent Supine to and from Sit SBA Transfers Sit to Stand Independently with use of hands or railing/walker for stability on standing. Bed to Chair Transfers Independent Wheelchair <-> Plinth. OP Gait Assessment Comments Gait Comments Pt walked in parallel bars a very short distance independently with wheel chair behind her. PT-OP-H Neuro Start: 04/19/19 15:25 Freq: Status: Active Protocol: Document 08/03/19 10:30 LRN (Rec: 08/03/19 16:02 LRN [id number]) Sensation Evaluation Gross Sensation Gross Sensation Left LE Impaired,Right LE Impaired Sensation Description Numbness,Coldness,Heaviness Dermatome Impairments L4,L5,S1 Comments Summary Comments patient could not feel monofilament on bilateral feet throughout L4-S1. Patient did not have proprioceptive awareness of bilateral Great toe when passively flexed or extended. Vital Signs Comments Vital Signs Comments Before Activity: HR 89, SpO2 98% After Step Test: HR 88, SpO2 97% PT-OP-K Range of Motion Start: 04/19/19 15:25 Freq: Status: Active Protocol: Document 08/03/19 10:30 LRN (Rec: 08/03/19 16:02 LRN [id number]) Knee Goniometric Range of Motion Knee Right Knee ROM WFL Yes Patient Position Sitting Left Knee ROM WFL Yes Patient Position Sitting Ankle and Foot Goniometric Range of Motion Ankle and Foot ROM Limitations ROM Limitations Soft Tissue Tightness,Muscle Weakness Comments Ankle DF AROM: Right lacks 19 deg's; Left lacks 5 deg's. PT-OP-L Special Tests Start: 04/19/19 15:25 Freq: Status: Active Protocol: Document 08/03/19 10:30 LRN (Rec: 08/03/19 16:02 LRN [id number]) Special Tests Neural Special Tests- Lower Body Clonus Test Results + Comments non-fatiguing clonus on R PT-OP-M Strength Start: 04/19/19 15:25 Freq: Status: Active Protocol: Document 08/03/19 10:30 LRN (Rec: 08/03/19 16:02 LRN [id number]) Hip Strength Hip Manual Muscle Testing Left Flexion (L2) 3 Fair Abduction 2 Poor Adduction 3 Fair Right Flexion (L2) 2 Poor Abduction 2 Poor Adduction 2- Poor- Knee Strength Knee Manual Muscle Testing Left Flexion (S2) 3+ Fair+ Extension (L3) 5 Normal Right Flexion (S2) 3+ Fair+ Extension (L3) 5 Normal Ankle/Foot Strength Ankle and Foot Manual Muscle Testing Right Dorsiflexion (L4) 3+ Fair+ Plantarflexion (S1) 1 Trace Left Dorsiflexion (L4) 3+ Fair+ Plantarflexion (S1) 2 Poor PT-OP-Q Treatments Start: 04/19/19 15:25 Freq: Status: Active Protocol: Document 09/12/19 11:23 LRN (Rec: 09/12/19 12:12 LRN [id number]) Therapeutic Exercises Sitting Exercises Trunk SB Sitting Exercise Name Trunk SB Side right Reps/Minutes 10x 3 Ankle IV Sitting Exercise Name Active Ankle IV Reps/Minutes 10 x 3 L, 8 x 3 w/asst R. Trunk rot Sitting Exercise Name Trunk rot Side left Equipment Used Lev 2 Reps/Minutes 10 x 3 Ankle DF Sitting Exercise Name Ankle DF Strengthening Side bilateral Resistance Lev 1 T-Band Reps/Minutes 10 x 3 Comments L ft full tension. R foot tension modified for maximal lift Ankle EV Sitting Exercise Name Ankle EV strengthening Equipment Used Lev 1 T-Band Reps/Minutes 10 x 3 with pauses R, 10x 3 L. Hamstring Curl Sitting Exercise Name Hamstring curl Side bilateral Resistance Lev2 Reps/Minutes 10x Standing Exercises Sit to stand Standing Exercise Name Sit to stand Reps/Minutes 3x Comments Pt fatigued at end of 3rd rep. Gait Training Gait Activity Walking in // Bars Description Marching Forward Device Used // bars (36 hgt) with W/C behind her Level of Assistance Indep Surface Level Distance/Duration 1 length of bars x 3.75 (~45') : 1) 9 steps, 2) 7 steps, 3)& 4) 6 steps Treatment Focus Improving endurance and LE strength and proper positioning of feet. Comments Pt has poor proprioception Pt marches higher with L leg. Self-Care/Home Management Treatment Education Other Education Discussed & reviewed goals. PT-OP-T Assessment and Plan Start: 04/19/19 15:25 Freq: Status: Active Protocol: Document 09/12/19 11:23 LRN (Rec: 09/12/19 12:12 LRN [id number]) Physical Therapy Assessment Goals Four Impairment Gait Short Term Goal (STG) Patient will walk 20 feet in / / bars in 2-4 weeks. 08/13/19: GOAL MET. Pt is walking at home 23' with FWW and sometimes 46'. STG Duration 2-4 weeks (08/03/19 GOAL MET) Sustainable Agriculture Faculty Goal (LTG) Patient will walk 100 feet with FWW in 6-8 weeks. (: Pt walked 75' in // bars with 2 rests) LTG Duration 10/06/19 (08/29/19 Pt walks 40-55' with FWW at home). Three Impairment Balance Short Term Goal (STG) Patient will toll lineman // bars for 3 minutes without loss of balance in 2 weeks. 08/03/19: NOT MET, pt stands 30 sec's. STG Duration 08/31/19 (08/03/19: Pt able to stand 30 sec's) Senior Living Goal (LTG) Patient will stand with FWW for 5 minutes without loss of balance in 4-6 weeks. LTG Duration 10/06/19 08/03/19 Two Impairment Functional Activity Short Term Goal (STG) Patient will move from seated to supine independently with ability to move both legs on to bed with assistance from strap in 3 weeks. (08/03/19: GOAL MET in AM, in PM legs slide out of strap support) STG Duration 08/31/19 (09/12/19: GOAL MET) Senior Living Goal (LTG) Patient will move from seated to supine independently without assistance from external device with ability to swing both legs on to bed with a controlled movement to supine in 5 weeks. LTG Duration 10/06/19 (09/12/19: GOAL MET) One Impairment Transfers Short Term Goal (STG) Patient will perform stand- pivot transfers independently with 90% confidence from wheelchair to bed in 4 weeks. (08/29/19: 90% confidence when rested, 80% when tired) STG Duration 08/31/19 (08/03/19: Pt has 80 % confidence) [employer]ustainable [employer] Faculty Goal (LTG) Patient will perform stand- pivot transfer independently with 100% confidence from wheelchair to bed in 6-8 weeks . LTG Duration 10/06/19 Progress Towards Goals Progress Comments GOAL 2 MET (STG & LTG): Pt is now able to transfer onto plinth table sit to supine independently AM & PM. Pt is confident she can do it independenly if a stap is needed to assist her LE's. GOAL 4 (STG) MET. Assessment Summary Assessment Pt improved with walking in parallel bars with 3.75 passes tolerated. She is improved in her transfer ability. Her 100% confidence level goal is probably not realistic; therefore the pt will consider if any other functional goals are appropriate. Pt core strength is good except mild weakness with trunk L rot and R SB. Physical Therapy Plan Frequency and Duration Frequency of Treatment 2x/Week Duration of Treatment 8 weeks Plan of Care Start Date 08/03/19 Plan of Care End Date 10/02/19 Next Visit Focus/Plan Next Note Type Treatment Note Next Visit Plan 9 visits remaining, discuss goals. Progress strengthening LE's ankles, hip AB's for functional standing and walking, try side stepping (on outside of bar) at //bars if tolerated. Gait training, Endurance ex for walking and improving function of 2' step test, transfer training, stand pivot/neuro re-ed training to improve confidence level.
--- NOTE | 2019-09-19 12:26 | PT.OTN ---
Current Diagnoses Multiple sclerosis (09/19/19) Muscle weakness (generalized) (09/19/19) History of falling (09/19/19) Physical Therapy Treatment Note PT-OP-A Visit Information Start: 04/19/19 15:25 Freq: Status: Active Protocol: Document 09/19/19 11:20 LRN (Rec: 09/19/19 12:26 LRN [id number]) Out-Patient Physical Therapy Visit Information Visit Information Visit Type Treatment Note Visit Start Time 11:20 Visit Stop Time 12:00 Total Visit Minutes 40 Visit Number 16 Evaluation Information Evaluation Date 04/19/19 Precautions Precautions Fall Risk Sensation Loss in bilateral LE PT-OP-B Current Condition Start: 04/19/19 15:25 Freq: Status: Active Protocol: Document 08/03/19 10:30 LRN (Rec: 08/03/19 16:02 LRN [id number]) Current Condition History of Current Condition Onset Date October 2018 Current Complaints Weakness/Instability with standing/transfers/walking History of Current Condition Patient is a 38 year old female who reports to physical therapy after being diagnosed with Multiple Sclerosis in February 2019. She has c/c of sensation and strength loss in both of her legs. Patient started feeling like she was walking like she was drunk in September of 2018. She started feeling like her legs felt heavy and stairs were starting to scare her at this time. Since then, she has had 2 falls - one in which she hurt her L knee and thought she has fractured her sacrum. Patient has since recieved an X-ray of this area and is following up with her PCP. She has pain at night from her hips down and at times has spasm in lower extremities. Patient reports that currently she is getting assistance from her aunt and parents but has been moving through the household and community primarily with a wheelchair. She is currently living in a day time basement with no stairs to enter. Patient is concerned about grab bars in the house and is looking at installation. She reports that she is currently showering at parent's house on shower chair. 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 She would like to gain more stability and confidence with her movements. 08/03/19: Pt returns following Covid 19 community isolation. Pt notes some improvement in strength. Walking 20-46' with walker and parent assist for chair behind her daily. Prior Treatments and Tests X-Rays Brain MRI - came back normal Spinal Taps Future Testing and Treatments Planned Medical Intervention for MS Treatment Goals Patient/Caregiver Goals 1. Would like to get more stable and confident with her movements. 2. Pt would like to be able to mobilize by walking independently with walker and not with wheelchair. 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 Walking with use of FWW. General mobility with wheelchair. Personal Factors Other Personal Factors That May Effect Past Laminectomy Therapy/Recovery BMI >30 Lives alone PT-OP-C Subjective Start: 04/19/19 15:25 Freq: Status: Active Protocol: Document 09/19/19 11:20 LRN (Rec: 09/19/19 12:26 LRN [id number]) OP-PT Subjective Patient Comments Patient Comments Walking 35-40 daily. Missed ex due to going to [place], doing shopping. PT-OP-E Functional Tests Start: 04/19/19 15:25 Freq: Status: Active Protocol: Document 08/03/19 10:30 LRN (Rec: 08/03/19 16:02 LRN [id number]) Functional Tests Other 2 min Step Test Name of Test 2 Minute Step Test Score 8 times Comment Norm for 60-64 years olds is 75-107 times. RPE: Somewhat Hard PT-OP-G Mobility & Gait Start: 04/19/19 15:25 Freq: Status: Active Protocol: Document 08/03/19 10:30 LRN (Rec: 08/03/19 16:02 LRN [id number]) OP Mobility Evaluation Bed Mobility Rolling Independent Supine to and from Sit SBA Transfers Sit to Stand Independently with use of hands or railing/walker for stability on standing. Bed to Chair Transfers Independent Wheelchair <-> Plinth. OP Gait Assessment Comments Gait Comments Pt walked in parallel bars a very short distance independently with wheel chair behind her. PT-OP-H Neuro Start: 04/19/19 15:25 Freq: Status: Active Protocol: Document 08/03/19 10:30 LRN (Rec: 08/03/19 16:02 LRN [id number]) Sensation Evaluation Gross Sensation Gross Sensation Left LE Impaired,Right LE Impaired Sensation Description Numbness,Coldness,Heaviness Dermatome Impairments L4,L5,S1 Comments Summary Comments patient could not feel monofilament on bilateral feet throughout L4-S1. Patient did not have proprioceptive awareness of bilateral Great toe when passively flexed or extended. Vital Signs Comments Vital Signs Comments Before Activity: HR 89, SpO2 98% After Step Test: HR 88, SpO2 97% PT-OP-K Range of Motion Start: 04/19/19 15:25 Freq: Status: Active Protocol: Document 08/03/19 10:30 LRN (Rec: 08/03/19 16:02 LRN [id number]) Knee Goniometric Range of Motion Knee Right Knee ROM WFL Yes Patient Position Sitting Left Knee ROM WFL Yes Patient Position Sitting Ankle and Foot Goniometric Range of Motion Ankle and Foot ROM Limitations ROM Limitations Soft Tissue Tightness,Muscle Weakness Comments Ankle DF AROM: Right lacks 19 deg's; Left lacks 5 deg's. PT-OP-L Special Tests Start: 04/19/19 15:25 Freq: Status: Active Protocol: Document 08/03/19 10:30 LRN (Rec: 08/03/19 16:02 LRN [id number]) Special Tests Neural Special Tests- Lower Body Clonus Test Results + Comments non-fatiguing clonus on R PT-OP-M Strength Start: 04/19/19 15:25 Freq: Status: Active Protocol: Document 09/19/19 11:20 LRN (Rec: 09/19/19 12:26 LRN [id number]) Trunk Strength Trunk Manual Muscle Testing Testing Position Sitting Flexion 5 Normal Extension 5 Normal Rotation Left 5 Normal Rotation Right 5 Normal Lateral Flexion Left 5 Normal Lateral Flexion Right 4 Good Core Stabilization Able to stabilize pelvic position with MMT of hip flexion; therefore core stability present. PT-OP-Q Treatments Start: 04/19/19 15:25 Freq: Status: Active Protocol: Document 09/19/19 11:20 LRN (Rec: 09/19/19 12:26 LRN [id number]) Therapeutic Exercises Prone Exercises Hip Ext Prone Exercise Name Active hip Ext w/cuing to avoid pelvic rotation Side bilateral Resistance 0# Reps/Minutes R 1 rep, L 2 reps. Comments Extra time to determine 1 rep max wgt. Hamsting curl Prone Exercise Name Hamstring curl Resistance 10# R, 17#L Comments Extra time to determine 1 rep max wgt. Sitting Exercises Trunk SB Sitting Exercise Name R Trunk SB Side bilateral Resistance Lev 3 Reps/Minutes 10x 3 Trunk rot Sitting Exercise Name L Trunk rot Side bilateral Equipment Used Lev 3 Reps/Minutes 10 x 3 Hamstring Curl Sitting Exercise Name 1 or 8 rep max strengthening Comments Extra time to determine 1 rep max wgt. knee extension Sitting Exercise Name 1 or 8 rep max strengthening Side bilateral Resistance 20# Reps/Minutes L side 8 rep max, R side 1 rep max Comments Extra time to determine 8 and 1 rep max wgt. Gait Training Gait Activity Weight shift in // bars Description Wgt shifting in // bars (after walking) Device Used // bars Level of Assistance Held W/C behind pt Surface Level Distance/Duration 1x 3 Treatment Focus WBing tolerance. Comments Poor tolerance since fatigued from walking. Walking in // Bars Description Marching Forward Device Used // bars (36 hgt) with W/C behind her Level of Assistance Indep Surface Level Distance/Duration 1 length of bars x 3.75 (~45') :17 stps-1.25 lgth, 8 stps-1 lgth. 6 stps-.25 Treatment Focus Improving endurance and LE strength and proper positioning of feet. Comments ~112' in // bars Pt marches higher with L leg. NOTE: Poor proprioception of feet/ankles. PT-OP-T Assessment and Plan Start: 04/19/19 15:25 Freq: Status: Active Protocol: Document 09/19/19 11:20 LRN (Rec: 09/19/19 12:26 LRN [id number]) Physical Therapy Assessment Goals Four Impairment Gait Short Term Goal (STG) Patient will walk 20 feet in / / bars in 2-4 weeks. 08/13/19: GOAL MET. Pt is walking at home 23' with FWW and sometimes 46'. STG Duration 2-4 weeks (08/03/19 GOAL MET) Sheet Metal Worker Apprentice Goal (LTG) Patient will walk 100 feet with FWW in 6-8 weeks. (: Pt walked 75' in // bars with 2 rests) LTG Duration 10/06/19 (08/29/19 Pt walks 40-55' with FWW at home). 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 08/03/19: NOT MET, pt stands 30 sec's. STG Duration 08/31/19 (08/03/19: Pt able to stand 30 sec's) Sheet Metal Worker Apprentice Goal (LTG) Patient will stand with FWW for 5 minutes without loss of balance in 4-6 weeks. LTG Duration 10/06/19 08/03/19 Two Impairment Functional Activity Short Term Goal (STG) Patient will move from seated to supine independently with ability to move both legs on to bed with assistance from strap in 3 weeks. (08/03/19: GOAL MET in AM, in PM legs slide out of strap support) STG Duration 08/31/19 (09/12/19: GOAL MET) Group Home Goal (LTG) Patient will move from seated to supine independently without assistance from external device with ability to swing both legs on to bed with a controlled movement to supine in 5 weeks. LTG Duration 10/06/19 (09/12/19: GOAL MET) One Impairment Transfers Short Term Goal (STG) Patient will perform stand- pivot transfers independently with 90% confidence from wheelchair to bed in 4 weeks. (08/29/19: 90% confidence when rested, 80% when tired) STG Duration 08/31/19 (08/03/19: Pt has 80 % confidence) Group Home Goal (LTG) Patient will perform stand- pivot transfer independently with 100% confidence from wheelchair to bed in 6-8 weeks . LTG Duration 10/06/19 Progress Towards Goals Progress Comments Improved core strength. Rotation is 5/5 bilaterally. Weakness primarily with R SB. Assessment Summary Assessment Pt tolerated 2.5 passes total today. Static standing tolerance is poor as noted after walking. Pt core strength improved. She transfers independently onto plinth showing 100% confidence although pt reports 90% confidence. Pt needs strengthening focus on knees/ hips (especially AB/ext) to improve static standing; ankle strength slow to improve. Sidestepping on outside of // bars would be unsafe due to pts sudden collapse of knees when fatigued; therefore not appropriate. Physical Therapy Plan Frequency and Duration Frequency of Treatment 2x/Week Duration of Treatment 8 weeks Plan of Care Start Date 08/03/19 Plan of Care End Date 10/02/19 Next Visit Focus/Plan Next Note Type Treatment Note Next Visit Plan 8 visits remaining, discuss goals. Endurance ex for walking and improving function of 2' step test, Progress strengthening LE's ankles, hip Ext/AB's for functional standing and walking. Gait training in // bars, transfer training, stand pivot/neuro re-ed training to improve confidence level.
--- NOTE | 2019-09-26 18:01 | PT.OTN ---
Current Diagnoses Multiple sclerosis (09/26/19) Muscle weakness (generalized) (09/26/19) History of falling (09/26/19) Physical Therapy Treatment Note PT-OP-A Visit Information Start: 04/19/19 15:25 Freq: Status: Active Protocol: Document 09/26/19 11:20 LRN (Rec: 09/26/19 12:27 LRN [id number]) Out-Patient Physical Therapy Visit Information Visit Information Visit Type Treatment Note Visit Start Time 11:20 Visit Stop Time 12:04 Total Visit Minutes 44 Visit Number 17 Evaluation Information Evaluation Date 04/19/19 Precautions Precautions Fall Risk Sensation Loss in bilateral LE PT-OP-B Current Condition Start: 04/19/19 15:25 Freq: Status: Active Protocol: Document 08/03/19 10:30 LRN (Rec: 08/03/19 16:02 LRN [id number]) Current Condition History of Current Condition Onset Date October 2018 Current Complaints Weakness/Instability with standing/transfers/walking History of Current Condition Patient is a 38 year old female who reports to physical therapy after being diagnosed with Multiple Sclerosis in February 2019. She has c/c of sensation and strength loss in both of her legs. Patient started feeling like she was walking like she was drunk in September of 2018. She started feeling like her legs felt heavy and stairs were starting to scare her at this time. Since then, she has had 2 falls - one in which she hurt her L knee and thought she has fractured her sacrum. Patient has since recieved an X-ray of this area and is following up with her PCP. She has pain at night from her hips down and at times has spasm in lower extremities. Patient reports that currently she is getting assistance from her aunt and parents but has been moving through the household and community primarily with a wheelchair. She is currently living in a day time basement with no stairs to enter. Patient is concerned about grab bars in the house and is looking at installation. She reports that she is currently showering at parent's house on shower chair. 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 She would like to gain more stability and confidence with her movements. 08/03/19: Pt returns following Covid 19 community isolation. Pt notes some improvement in strength. Walking 20-46' with walker and parent assist for chair behind her daily. Prior Treatments and Tests X-Rays Brain MRI - came back normal Spinal Taps Future Testing and Treatments Planned Medical Intervention for MS Treatment Goals Patient/Caregiver Goals 1. Would like to get more stable and confident with her movements. 2. Pt would like to be able to mobilize by walking independently with walker and not with wheelchair. 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 Walking with use of FWW. General mobility with wheelchair. Personal Factors Other Personal Factors That May Effect Past Laminectomy Therapy/Recovery BMI >30 Lives alone PT-OP-C Subjective Start: 04/19/19 15:25 Freq: Status: Active Protocol: Document 09/26/19 11:20 LRN (Rec: 09/26/19 12:27 LRN [id number]) OP-PT Subjective Patient Comments Patient Comments 90% confidence with transfers. She notes she is walking a little farther at home. PT-OP-E Functional Tests Start: 04/19/19 15:25 Freq: Status: Active Protocol: Document 08/03/19 10:30 LRN (Rec: 08/03/19 16:02 LRN [id number]) Functional Tests Other 2 min Step Test Name of Test 2 Minute Step Test Score 8 times Comment Norm for 60-64 years olds is 75-107 times. RPE: Somewhat Hard PT-OP-G Mobility & Gait Start: 04/19/19 15:25 Freq: Status: Active Protocol: Document 08/03/19 10:30 LRN (Rec: 08/03/19 16:02 LRN [id number]) OP Mobility Evaluation Bed Mobility Rolling Independent Supine to and from Sit SBA Transfers Sit to Stand Independently with use of hands or railing/walker for stability on standing. Bed to Chair Transfers Independent Wheelchair <-> Plinth. OP Gait Assessment Comments Gait Comments Pt walked in parallel bars a very short distance independently with wheel chair behind her. PT-OP-H Neuro Start: 04/19/19 15:25 Freq: Status: Active Protocol: Document 08/03/19 10:30 LRN (Rec: 08/03/19 16:02 LRN [id number]) Sensation Evaluation Gross Sensation Gross Sensation Left LE Impaired,Right LE Impaired Sensation Description Numbness,Coldness,Heaviness Dermatome Impairments L4,L5,S1 Comments Summary Comments patient could not feel monofilament on bilateral feet throughout L4-S1. Patient did not have proprioceptive awareness of bilateral Great toe when passively flexed or extended. Vital Signs Comments Vital Signs Comments Before Activity: HR 89, SpO2 98% After Step Test: HR 88, SpO2 97% PT-OP-K Range of Motion Start: 04/19/19 15:25 Freq: Status: Active Protocol: Document 08/03/19 10:30 LRN (Rec: 08/03/19 16:02 LRN [id number]) Knee Goniometric Range of Motion Knee Right Knee ROM WFL Yes Patient Position Sitting Left Knee ROM WFL Yes Patient Position Sitting Ankle and Foot Goniometric Range of Motion Ankle and Foot ROM Limitations ROM Limitations Soft Tissue Tightness,Muscle Weakness Comments Ankle DF AROM: Right lacks 19 deg's; Left lacks 5 deg's. PT-OP-L Special Tests Start: 04/19/19 15:25 Freq: Status: Active Protocol: Document 08/03/19 10:30 LRN (Rec: 08/03/19 16:02 LRN [id number]) Special Tests Neural Special Tests- Lower Body Clonus Test Results + Comments non-fatiguing clonus on R PT-OP-M Strength Start: 04/19/19 15:25 Freq: Status: Active Protocol: Document 09/19/19 11:20 LRN (Rec: 09/19/19 12:26 LRN [id number]) Trunk Strength Trunk Manual Muscle Testing Testing Position Sitting Flexion 5 Normal Extension 5 Normal Rotation Left 5 Normal Rotation Right 5 Normal Lateral Flexion Left 5 Normal Lateral Flexion Right 4 Good Core Stabilization Able to stabilize pelvic position with MMT of hip flexion; therefore core stability present. PT-OP-Q Treatments Start: 04/19/19 15:25 Freq: Status: Active Protocol: Document 09/26/19 11:20 LRN (Rec: 09/26/19 12:27 LRN [id number]) Therapeutic Exercises Prone Exercises Hip Ext w/knee flexed Prone Exercise Name Assisted hip ext w/knee flexed Side bilateral Reps/Minutes 5x 2 Hip Ext Prone Exercise Name Active hip Ext w/cuing to avoid pelvic rotation Side bilateral Resistance 0# Equipment Used Lgt green small round bolster Reps/Minutes R 10x 2 rep, L 10x 3 reps. Comments Pt able to perform 5-7 reps well on R, Hamsting curl Prone Exercise Name Hamstring curl Resistance 10#, 10#, 0# R, 17#, 10#, 0# L , Comments 1 rep max x 2, 10x assisted, 10 x guided on L for proper movement. Sitting Exercises Ankle IV Sitting Exercise Name BAPS helping to keep in proper position Comments Weak on R ankle Ankle DF Sitting Exercise Name BAPS helping to keep in proper position Side bilateral Equipment Used BAPS with pole at toes and 1 wgt Ankle EV Sitting Exercise Name BAPS helping to keep in proper position Reps/Minutes 10x Comments Weak on L ankle Gait Training Gait Activity Weight shift in // bars Description Wgt shifting in // bars (after walking) Device Used // bars Level of Assistance Held W/C behind pt Surface Level Distance/Duration During standing Treatment Focus WBing tolerance. Comments Poor tolerance since fatigued from walking. Walking in // Bars Description Walking Forward (1 length of bars = 12') Device Used // bars (36 hgt) with W/C behind her Level of Assistance Indep Surface Level Distance/Duration 1 length of bars x 4 = 48': 1) 1.75 length, 2) 3/4 Length, 3 ,4&5) 1/2 Treatment Focus Improving endurance and LE strength and proper positioning of feet. Comments ~48' in // bars. 4 length ins 2.15' with sit rest periods. NOTE: Poor proprioception of feet/ankles. Neuro Re-Education Treatment Balance Activities Standing in // bars Details Standing with wgt shifting as needed Surface Level Equipment // bars Comments Stood: 38, 32, 21, 18, 14 sec' s with short sit rests between standing L side gives out first, R side on 4th & 5th attempts. PT-OP-T Assessment and Plan Start: 04/19/19 15:25 Freq: Status: Active Protocol: Document 09/26/19 11:20 LRN (Rec: 09/26/19 12:27 LRN [id number]) Physical Therapy Assessment Goals Four Impairment Gait Short Term Goal (STG) Patient will walk 20 feet in / / bars in 2-4 weeks. 08/13/19: GOAL MET. Pt is walking at home 23' with FWW and sometimes 46'. STG Duration 2-4 weeks (08/03/19 GOAL MET) Cyber Incident Responder Goal (LTG) Patient will walk 100 feet with FWW in 6-8 weeks. (: Pt walked 75' in // bars with 2 rests) LTG Duration 10/06/19 (08/29/19 Pt walks 40-55' with FWW at home). Three Impairment Balance Short Term Goal (STG) Patient will development trainer // bars for 3 minutes without loss of balance in 2 weeks. 08/03/19: NOT MET, pt stands 30 sec's. STG Duration 08/31/19 (09/26/19: Pt able to stand 38 sec's) Longterm Goal (LTG) Patient will stand with FWW for 5 minutes without loss of balance in 4-6 weeks. LTG Duration 10/06/19 Two Impairment Functional Activity Short Term Goal (STG) Patient will move from seated to supine independently with ability to move both legs on to bed with assistance from strap in 3 weeks. (08/03/19: GOAL MET in AM, in PM legs slide out of strap support) STG Duration 08/31/19 (09/12/19: GOAL MET) Longterm Goal (LTG) Patient will move from seated to supine independently without assistance from external device with ability to swing both legs on to bed with a controlled movement to supine in 5 weeks. LTG Duration 10/06/19 (09/12/19: GOAL MET) One Impairment Transfers Short Term Goal (STG) Patient will perform stand- pivot transfers independently with 90% confidence from wheelchair to bed in 4 weeks. (09/26/19: 90% confidence when rested, less when tired) STG Duration 08/31/19 (09/26/19: GOAL MET. 90% confidence with transfers) Longterm Goal (LTG) Patient will perform stand- pivot transfer independently with 100% confidence from wheelchair to bed in 6-8 weeks . LTG Duration 10/06/19 (09/26/19: Improved, 90% confidence) Progress Towards Goals Progress Comments Goal #1 STG: MET. Pt confidence level for transfers improved from 80 to 90% in past 6 weeks. At start of therapy pt was able to development trainer // bars 38 secs (previously 30 secs on ). Assessment Summary Assessment Extra time was taken to get pt prone for ex's and off plinth into W/C due to fatigue in legs. Pt able to perform 3.25 passes with rests to start. Decreased control of L hamstring curl with pt moving leg into ER. Physical Therapy Plan Frequency and Duration Frequency of Treatment 2x/Week Duration of Treatment 8 weeks Plan of Care Start Date 08/03/19 Plan of Care End Date 10/02/19 Next Visit Focus/Plan Next Note Type Treatment Note Next Visit Plan 7 visits remaining, discuss goals. Endurance ex for walking and improving function of 2' step test, Progress strengthening LE's ankles, hip Ext/AB's for functional standing and walking. Gait training in // bars, transfer training, stand pivot/neuro re-ed training to improve confidence level.
--- NOTE | 2019-10-03 17:30 | PT.OTN ---
Current Diagnoses Multiple sclerosis (10/03/19) Muscle weakness (generalized) (10/03/19) History of falling (10/03/19) Physical Therapy Treatment Note PT-OP-A Visit Information Start: 04/19/19 15:25 Freq: Status: Active Protocol: Document 10/03/19 08:15 LRN (Rec: 10/03/19 08:59 LRN [id number]) Out-Patient Physical Therapy Visit Information Visit Information Visit Type Treatment Note Visit Start Time 08:16 Visit Stop Time 08:59 Total Visit Minutes 43 Visit Number 18 Evaluation Information Evaluation Date 04/19/19 Precautions Precautions Fall Risk Sensation Loss in bilateral LE PT-OP-B Current Condition Start: 04/19/19 15:25 Freq: Status: Active Protocol: Document 08/03/19 10:30 LRN (Rec: 08/03/19 16:02 LRN [id number]) Current Condition History of Current Condition Onset Date October 2018 Current Complaints Weakness/Instability with standing/transfers/walking History of Current Condition Patient is a 38 year old female who reports to physical therapy after being diagnosed with Multiple Sclerosis in February 2019. She has c/c of sensation and strength loss in both of her legs. Patient started feeling like she was walking like she was drunk in September of 2018. She started feeling like her legs felt heavy and stairs were starting to scare her at this time. Since then, she has had 2 falls - one in which she hurt her L knee and thought she has fractured her sacrum. Patient has since recieved an X-ray of this area and is following up with her PCP. She has pain at night from her hips down and at times has spasm in lower extremities. Patient reports that currently she is getting assistance from her aunt and parents but has been moving through the household and community primarily with a wheelchair. She is currently living in a day time basement with no stairs to enter. Patient is concerned about grab bars in the house and is looking at installation. She reports that she is currently showering at parent's house on shower chair. 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 She would like to gain more stability and confidence with her movements. 08/03/19: Pt returns following Covid 19 community isolation. Pt notes some improvement in strength. Walking 20-46' with walker and parent assist for chair behind her daily. Prior Treatments and Tests X-Rays Brain MRI - came back normal Spinal Taps Future Testing and Treatments Planned Medical Intervention for MS Treatment Goals Patient/Caregiver Goals 1. Would like to get more stable and confident with her movements. 2. Pt would like to be able to mobilize by walking independently with walker and not with wheelchair. 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 Walking with use of FWW. General mobility with wheelchair. Personal Factors Other Personal Factors That May Effect Past Laminectomy Therapy/Recovery BMI >30 Lives alone PT-OP-C Subjective Start: 04/19/19 15:25 Freq: Status: Active Protocol: Document 10/03/19 08:15 LRN (Rec: 10/03/19 08:59 LRN [id number]) OP-PT Subjective Patient Comments Patient Comments 2 days since last in that she couldn't go far at all. She has been doing 3 lengths ~60'. PT-OP-E Functional Tests Start: 04/19/19 15:25 Freq: Status: Active Protocol: Document 08/03/19 10:30 LRN (Rec: 08/03/19 16:02 LRN [id number]) Functional Tests Other 2 min Step Test Name of Test 2 Minute Step Test Score 8 times Comment Norm for 60-64 years olds is 75-107 times. RPE: Somewhat Hard PT-OP-G Mobility & Gait Start: 04/19/19 15:25 Freq: Status: Active Protocol: Document 08/03/19 10:30 LRN (Rec: 08/03/19 16:02 LRN [id number]) OP Mobility Evaluation Bed Mobility Rolling Independent Supine to and from Sit SBA Transfers Sit to Stand Independently with use of hands or railing/walker for stability on standing. Bed to Chair Transfers Independent Wheelchair <-> Plinth. OP Gait Assessment Comments Gait Comments Pt walked in parallel bars a very short distance independently with wheel chair behind her. PT-OP-H Neuro Start: 04/19/19 15:25 Freq: Status: Active Protocol: Document 08/03/19 10:30 LRN (Rec: 08/03/19 16:02 LRN [id number]) Sensation Evaluation Gross Sensation Gross Sensation Left LE Impaired,Right LE Impaired Sensation Description Numbness,Coldness,Heaviness Dermatome Impairments L4,L5,S1 Comments Summary Comments patient could not feel monofilament on bilateral feet throughout L4-S1. Patient did not have proprioceptive awareness of bilateral Great toe when passively flexed or extended. Vital Signs Comments Vital Signs Comments Before Activity: HR 89, SpO2 98% After Step Test: HR 88, SpO2 97% PT-OP-K Range of Motion Start: 04/19/19 15:25 Freq: Status: Active Protocol: Document 08/03/19 10:30 LRN (Rec: 08/03/19 16:02 LRN [id number]) Knee Goniometric Range of Motion Knee Right Knee ROM WFL Yes Patient Position Sitting Left Knee ROM WFL Yes Patient Position Sitting Ankle and Foot Goniometric Range of Motion Ankle and Foot ROM Limitations ROM Limitations Soft Tissue Tightness,Muscle Weakness Comments Ankle DF AROM: Right lacks 19 deg's; Left lacks 5 deg's. PT-OP-L Special Tests Start: 04/19/19 15:25 Freq: Status: Active Protocol: Document 08/03/19 10:30 LRN (Rec: 08/03/19 16:02 LRN [id number]) Special Tests Neural Special Tests- Lower Body Clonus Test Results + Comments non-fatiguing clonus on R PT-OP-M Strength Start: 04/19/19 15:25 Freq: Status: Active Protocol: Document 09/19/19 11:20 LRN (Rec: 09/19/19 12:26 LRN [id number]) Trunk Strength Trunk Manual Muscle Testing Testing Position Sitting Flexion 5 Normal Extension 5 Normal Rotation Left 5 Normal Rotation Right 5 Normal Lateral Flexion Left 5 Normal Lateral Flexion Right 4 Good Core Stabilization Able to stabilize pelvic position with MMT of hip flexion; therefore core stability present. PT-OP-Q Treatments Start: 04/19/19 15:25 Freq: Status: Active Protocol: Document 10/03/19 08:15 LRN (Rec: 10/03/19 08:59 LRN [id number]) Therapeutic Exercises Sitting Exercises [facility] Sitting Exercise Name [place] Side bilateral Resistance Lev 2 Reps/Minutes 10x 3 Comments Trainng for max movement and resitance for 8 rep max. Alternate Arm lifts Sitting Exercise Name Alternate Arm lifts Side bilateral Resistance 3# Reps/Minutes 15x Trunk rot Sitting Exercise Name L Trunk rot Side bilateral Resistance 20#, 10# Equipment Used Dual Rupal Reps/Minutes 8x, 10x, respectively Ankle DF Sitting Exercise Name Ankle DF Side bilateral Comments 10 x 3 Ankle EV Sitting Exercise Name Ankle EV Side bilateral Reps/Minutes 10x Comments Weak on L ankle Scapular Retractions Sitting Exercise Name Row Side bilateral Equipment Used Lev 3 Reps/Minutes 10x Gait Training Gait Activity Walking within LIKO walker lift Description LIKO lift used as walker w/2 person assist Device Used LIKO lift Level of Assistance 1 person behind with w/c and one in front monitoring LIKO lift progression Surface Level Distance/Duration 25' Treatment Focus Gait endurance Comments Gait at end of therapy. Walking in // Bars Description Walking Forward (1 length of bars = 12') Device Used // bars (36 hgt) with W/C behind her Level of Assistance Indep Surface Level Distance/Duration 1 length of bars x 3 = 36':1)3 /4length, 2) 3/4 Length, 3) 1/ 2 length 4) 1/2 Treatment Focus Improving endurance and LE strength and proper positioning of feet. Comments ~36' in // bars, & later 25' in LIKO lift. NOTE: Poor proprioception of feet/ankles. PT-OP-T Assessment and Plan Start: 04/19/19 15:25 Freq: Status: Active Protocol: Document 10/03/19 08:15 LRN (Rec: 10/03/19 09:01 LRN [id number]) Physical Therapy Assessment Goals Four Impairment Gait Short Term Goal (STG) Patient will walk 20 feet in / / bars in 2-4 weeks. 08/13/19: GOAL MET. Pt is walking at home 23' with FWW and sometimes 46'. STG Duration 2-4 weeks (08/03/19 GOAL MET) [facility] Goal (LTG) Patient will walk 100 feet with FWW in 6-8 weeks. (: Pt walked 75' in // bars with 2 rests) LTG Duration 10/06/19 (08/29/19 Pt walks 40-55' with FWW at home). Three Impairment Balance Short Term Goal (STG) Patient will gre instructor // bars for 3 minutes without loss of balance in 2 weeks. 08/03/19: NOT MET, pt stands 30 sec's. STG Duration 08/31/19 (09/26/19: Pt able to stand 38 sec's) Protection Agent Goal (LTG) Patient will stand with FWW for 5 minutes without loss of balance in 4-6 weeks. LTG Duration 10/06/19 Two Impairment Functional Activity Short Term Goal (STG) Patient will move from seated to supine independently with ability to move both legs on to bed with assistance from strap in 3 weeks. (08/03/19: GOAL MET in AM, in PM legs slide out of strap support) STG Duration 08/31/19 (09/12/19: GOAL MET) Protection Agent Goal (LTG) Patient will move from seated to supine independently without assistance from external device with ability to swing both legs on to bed with a controlled movement to supine in 5 weeks. LTG Duration 10/06/19 (09/12/19: GOAL MET) One Impairment Transfers Short Term Goal (STG) Patient will perform stand- pivot transfers independently with 90% confidence from wheelchair to bed in 4 weeks. (09/26/19: 90% confidence when rested, less when tired) STG Duration 08/31/19 (09/26/19: GOAL MET. 90% confidence with transfers) Protection Agent Goal (LTG) Patient will perform stand- pivot transfer independently with 100% confidence from wheelchair to bed in 6-8 weeks . LTG Duration 10/06/19 (09/26/19: Improved, 90% confidence) Progress Towards Goals Progress Comments Goal #1 STG: MET. Pt confidence level for transfers improved from 80 to 90% in past 6 weeks. Deferred standing, pt was able to gre instructor // bars previously 38 secs & 08/03/19: 30 secs). Assessment Summary Assessment Determined 8 rep max for some UE/Upper back strengthening on dual rupal. Pt felt tired from getting up so early; therefore lower tolerance to gait. Pt upper back sore from pushing w/c although she tries not to lean forward. Physical Therapy Plan Frequency and Duration Frequency of Treatment 1x/Week Duration of Treatment 8 weeks Plan of Care Start Date 08/03/19 Plan of Care End Date 10/02/19 Next Visit Focus/Plan Next Note Type Treatment Note Next Visit Plan 6 visits remaining, pt would like to save 2 remaining visits for later in the year. Assess progress towards and discuss goals. Endurance ex for walking and improving function of 2' step test, Progress strengthening LE's ankles, hip Ext/AB's for functional standing and walking & upper back to reduce strain from pushing wheelchair. Gait training in // bars, transfer training, stand pivot/neuro re-ed training to improve confidence level.
--- NOTE | 2019-10-13 15:37 | PT.OTN ---
Current Diagnoses Multiple sclerosis (10/13/19) Muscle weakness (generalized) (10/13/19) History of falling (10/13/19) Physical Therapy Treatment Note PT-OP-A Visit Information Start: 04/19/19 15:25 Freq: Status: Active Protocol: Document 10/13/19 14:18 LRN (Rec: 10/13/19 15:02 LRN [id number]) Out-Patient Physical Therapy Visit Information Visit Information Visit Type Progress Note Visit Start Time 14:18 Visit Stop Time 15:00 Total Visit Minutes 42 Visit Number 19 Evaluation Information Evaluation Date 04/19/19 Precautions Precautions Fall Risk Sensation Loss in bilateral LE PT-OP-B Current Condition Start: 04/19/19 15:25 Freq: Status: Active Protocol: Document 08/03/19 10:30 LRN (Rec: 08/03/19 16:02 LRN [id number]) Current Condition History of Current Condition Onset Date October 2018 Current Complaints Weakness/Instability with standing/transfers/walking History of Current Condition Patient is a 38 year old female who reports to physical therapy after being diagnosed with Multiple Sclerosis in February 2019. She has c/c of sensation and strength loss in both of her legs. Patient started feeling like she was walking like she was drunk in September of 2018. She started feeling like her legs felt heavy and stairs were starting to scare her at this time. Since then, she has had 2 falls - one in which she hurt her L knee and thought she has fractured her sacrum. Patient has since recieved an X-ray of this area and is following up with her PCP. She has pain at night from her hips down and at times has spasm in lower extremities. Patient reports that currently she is getting assistance from her aunt and parents but has been moving through the household and community primarily with a wheelchair. She is currently living in a day time basement with no stairs to enter. Patient is concerned about grab bars in the house and is looking at installation. She reports that she is currently showering at parent's house on shower chair. 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 She would like to gain more stability and confidence with her movements. 08/03/19: Pt returns following Covid 19 community isolation. Pt notes some improvement in strength. Walking 20-46' with walker and parent assist for chair behind her daily. Prior Treatments and Tests X-Rays Brain MRI - came back normal Spinal Taps Future Testing and Treatments Planned Medical Intervention for MS Treatment Goals Patient/Caregiver Goals 1. Would like to get more stable and confident with her movements. 2. Pt would like to be able to mobilize by walking independently with walker and not with wheelchair. 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 Walking with use of FWW. General mobility with wheelchair. Personal Factors Other Personal Factors That May Effect Past Laminectomy Therapy/Recovery BMI >30 Lives alone PT-OP-C Subjective Start: 04/19/19 15:25 Freq: Status: Active Protocol: Document 10/13/19 14:18 LRN (Rec: 10/13/19 15:02 LRN [id number]) OP-PT Subjective Patient Comments Patient Comments Doesn't feel there has been any change. Still doing home exercises. PT-OP-E Functional Tests Start: 04/19/19 15:25 Freq: Status: Active Protocol: Document 10/13/19 14:18 LRN (Rec: 10/13/19 15:02 LRN [id number]) Functional Tests Other 2 min Step Test Name of Test 2' step test Score 13 steps Comment 2 sit rests (initially was 8 steps) PT-OP-G Mobility & Gait Start: 04/19/19 15:25 Freq: Status: Active Protocol: Document 08/03/19 10:30 LRN (Rec: 08/03/19 16:02 LRN [id number]) OP Mobility Evaluation Bed Mobility Rolling Independent Supine to and from Sit SBA Transfers Sit to Stand Independently with use of hands or railing/walker for stability on standing. Bed to Chair Transfers Independent Wheelchair <-> Plinth. OP Gait Assessment Comments Gait Comments Pt walked in parallel bars a very short distance independently with wheel chair behind her. PT-OP-H Neuro Start: 04/19/19 15:25 Freq: Status: Active Protocol: Document 08/03/19 10:30 LRN (Rec: 08/03/19 16:02 LRN [id number]) Sensation Evaluation Gross Sensation Gross Sensation Left LE Impaired,Right LE Impaired Sensation Description Numbness,Coldness,Heaviness Dermatome Impairments L4,L5,S1 Comments Summary Comments patient could not feel monofilament on bilateral feet throughout L4-S1. Patient did not have proprioceptive awareness of bilateral Great toe when passively flexed or extended. Vital Signs Comments Vital Signs Comments Before Activity: HR 89, SpO2 98% After Step Test: HR 88, SpO2 97% PT-OP-K Range of Motion Start: 04/19/19 15:25 Freq: Status: Active Protocol: Document 08/03/19 10:30 LRN (Rec: 08/03/19 16:02 LRN [id number]) Knee Goniometric Range of Motion Knee Right Knee ROM WFL Yes Patient Position Sitting Left Knee ROM WFL Yes Patient Position Sitting Ankle and Foot Goniometric Range of Motion Ankle and Foot ROM Limitations ROM Limitations Soft Tissue Tightness,Muscle Weakness Comments Ankle DF AROM: Right lacks 19 deg's; Left lacks 5 deg's. PT-OP-L Special Tests Start: 04/19/19 15:25 Freq: Status: Active Protocol: Document 08/03/19 10:30 LRN (Rec: 08/03/19 16:02 LRN [id number]) Special Tests Neural Special Tests- Lower Body Clonus Test Results + Comments non-fatiguing clonus on R PT-OP-M Strength Start: 04/19/19 15:25 Freq: Status: Active Protocol: Document 09/19/19 11:20 LRN (Rec: 09/19/19 12:26 LRN [id number]) Trunk Strength Trunk Manual Muscle Testing Testing Position Sitting Flexion 5 Normal Extension 5 Normal Rotation Left 5 Normal Rotation Right 5 Normal Lateral Flexion Left 5 Normal Lateral Flexion Right 4 Good Core Stabilization Able to stabilize pelvic position with MMT of hip flexion; therefore core stability present. PT-OP-Q Treatments Start: 04/19/19 15:25 Freq: Status: Active Protocol: Document 10/13/19 14:18 LRN (Rec: 10/13/19 15:02 LRN [id number]) Therapeutic Exercises Prone Exercises Hip Ext w/knee flexed Prone Exercise Name Assisted hip ext w/knee flexed Side bilateral Reps/Minutes 5x 2 Comments R hip sometimes engages all ms to resist ext asst Hip Ext Prone Exercise Name Active hip Ext w/cuing to avoid pelvic rotation Side bilateral Resistance 0# Equipment Used Lgt green small round bolster Reps/Minutes R 10x 2 rep, L 10x 3 reps. Comments Pt able to perform 5-7 reps well on R, Hamsting curl Prone Exercise Name Hamstring curl Resistance 10#, 17#, 5# R, 15#, 10#, 5# L , Reps/Minutes 3 reps each Sitting Exercises Clamshell Sitting Exercise Name Clamshell Side bilateral Resistance Lev 2 Reps/Minutes 30 Comments Trainng for max movement and resitance for 8 rep max. Alternate Arm lifts Sitting Exercise Name Alternate Arm lifts Side bilateral Resistance 4# Reps/Minutes 15x Hamstring Curl Sitting Exercise Name Hamstring Curl separetly Reps/Minutes 15 x 2 Left, 10 x 3 Right Comments Extra time to determine 1 rep max wgt. Scapular Retractions Sitting Exercise Name Row Side bilateral Equipment Used Lev 3 Reps/Minutes 10x 3 Standing Exercises Marching Standing Exercise Name Marching in // Bars Reps/Minutes 2' Comments Extra time for identifying lift hgt. 2 sitting rest periods needed. Self-Care/Home Management Treatment Education Patient Education Home Exercise Program Activities Self-Care/Home Management Activities Pt I/S during ex's to increase resistance at home with ex, try 8 rep max in PM and endurance ex (10r x 3) in AM. Encouraged pt to cont walking and to increase resistance with UE strengthening. PT-OP-T Assessment and Plan Start: 04/19/19 15:25 Freq: Status: Active Protocol: Document 10/13/19 14:18 LRN (Rec: 10/13/19 15:02 LRN [id number]) Physical Therapy Assessment Goals Four Impairment Gait Short Term Goal (STG) Patient will walk 20 feet in / / bars in 2-4 weeks. 08/13/19: GOAL MET. Pt is walking at home 23' with FWW and sometimes 46'. STG Duration 2-4 weeks (08/03/19 GOAL MET) Machine Design Engineer Goal (LTG) Patient will walk 100 feet with FWW in 6-8 weeks. (: Pt walked 75' in // bars with 2 rests) LTG Duration 12/12/19 (08/29/19 Pt walks 40-55' with FWW at home). Three Impairment Balance Short Term Goal (STG) Patient will visual inspector // bars for 3 minutes without loss of balance in 2 weeks. (08/03/19: NOT MET, pt stands 30 sec's.) STG Duration 11/19/19 (09/26/19: Pt able to stand 38 sec's) Machine Design Engineer Goal (LTG) Patient will stand with FWW for 5 minutes without loss of balance in 4-6 weeks. LTG Duration 12/12/19 Two Impairment Functional Activity Short Term Goal (STG) Patient will move from seated to supine independently with ability to move both legs on to bed with assistance from strap in 3 weeks. (08/03/19: GOAL MET in AM, in PM legs slide out of strap support) STG Duration 08/31/19 (09/12/19: GOAL MET) Machine Design Engineer Goal (LTG) Patient will move from seated to supine independently without assistance from external device with ability to swing both legs on to bed with a controlled movement to supine in 5 weeks. LTG Duration 10/06/19 (09/12/19: GOAL MET) One Impairment Transfers Short Term Goal (STG) Patient will perform stand- pivot transfers independently with 90% confidence from wheelchair to bed in 4 weeks. (09/26/19: 90% confidence when rested, less when tired) STG Duration 08/31/19 (09/26/19: GOAL MET. 90% confidence with transfers) Detention Goal (LTG) Patient will perform stand- pivot transfer independently with 100% confidence from wheelchair to bed in 6-8 weeks . LTG Duration 12/12/19 (09/26/19: Improved, 90% confidence) Progress Towards Goals Progress Comments Pt shows improved endurance with 2 minute March Test. Today she marched 13 steps with 2 sit rests, initially she marched 8 steps with sit rests. Assessment Summary Assessment Pt appears to be improving in endurance in LE's as indicated above. Her strength also appears to be improving as shown with increased resistance during exercise. Pt appears to be consistent with her HEP. Pt shows confidence in transfers w/c to plinth with no hesitation and no waiting for SBA in transferring. Pt walking and standing tolerance were not tested, but overall has improved. Pt would like to keep original goals, but these will probably be greater rn long term care goals beyond her therapy rehab. Physical Therapy Plan Frequency and Duration Duration of Treatment 8 weeks Plan of Care Start Date 08/03/19 Plan of Care End Date 12/12/19 Next Visit Focus/Plan Next Note Type Treatment Note Next Visit Plan 5 visits remaining, pt would like to save 2 remaining visits for later in the year. Discuss goals for timeline of rehab 60-90 days. Endurance ex for walking to cont improving function of 2' step test, Progress strengthening LE's ankles, hip Ext/AB's for functional standing and walking & upper back to reduce strain from pushing wheelchair. Gait training in // bars, transfer training, Cont stand pivot transfers/ neuro re-ed training to improve confidence level.
--- NOTE | 2019-10-13 15:37 | PT.OPPOC ---
Physical, Occupational & Speech Therapy At [facility] Current Diagnoses Multiple sclerosis (10/13/19) Muscle weakness (generalized) (10/13/19) History of falling (10/13/19) Visit Care Team Role Provider Type Alycia Farrar PA-C Primary Care Provider [employer] Consultant Specialty: Medical Address: [address] [place] [address], [id number] Email: Rufino Umaña MD Attending Provider Non-Staff Specialty: Psychiatry Address: [address] [place] [address], [address], [place], [address] Email: Plan Of Care PT-OP-T Assessment and Plan Start: 04/19/19 15:25 Freq: Status: Active Protocol: Document 10/13/19 14:18 LRN (Rec: 10/13/19 15:02 LRN [id number]) Physical Therapy Assessment Goals Four Impairment Gait Short Term Goal (STG) Patient will walk 20 feet in / / bars in 2-4 weeks. 08/13/19: GOAL MET. Pt is walking at home 23' with FWW and sometimes 46'. STG Duration 2-4 weeks (08/03/19 GOAL MET) Half-Way Goal (LTG) Patient will walk 100 feet with FWW in 6-8 weeks. (: Pt walked 75' in // bars with 2 rests) LTG Duration 12/12/19 (08/29/19 Pt walks 40-55' with FWW at home). Three Impairment Balance Short Term Goal (STG) Patient will bellstand attendant // bars for 3 minutes without loss of balance in 2 weeks. (08/03/19: NOT MET, pt stands 30 sec's.) STG Duration 11/19/19 (09/26/19: Pt able to stand 38 sec's) Half-Way Goal (LTG) Patient will stand with FWW for 5 minutes without loss of balance in 4-6 weeks. LTG Duration 12/12/19 Two Impairment Functional Activity Short Term Goal (STG) Patient will move from seated to supine independently with ability to move both legs on to bed with assistance from strap in 3 weeks. (08/03/19: GOAL MET in AM, in PM legs slide out of strap support) STG Duration 08/31/19 (09/12/19: GOAL MET) Half-Way Goal (LTG) Patient will move from seated to supine independently without assistance from external device with ability to swing both legs on to bed with a controlled movement to supine in 5 weeks. LTG Duration 10/06/19 (09/12/19: GOAL MET) One Impairment Transfers Short Term Goal (STG) Patient will perform stand- pivot transfers independently with 90% confidence from wheelchair to bed in 4 weeks. (09/26/19: 90% confidence when rested, less when tired) STG Duration 08/31/19 (09/26/19: GOAL MET. 90% confidence with transfers) Half-Way Goal (LTG) Patient will perform stand- pivot transfer independently with 100% confidence from wheelchair to bed in 6-8 weeks . LTG Duration 12/12/19 (09/26/19: Improved, 90% confidence) Progress Towards Goals Progress Comments Pt shows improved endurance with 2 minute March Test. Today she marched 13 steps with 2 sit rests, initially she marched 8 steps with sit rests. Assessment Summary Assessment Pt appears to be improving in endurance in LE's as indicated above. Her strength also appears to be improving as shown with increased resistance during exercise. Pt appears to be consistent with her HEP. Pt shows confidence in transfers w/c to plinth with no hesitation and no waiting for SBA in transferring. Pt walking and standing tolerance were not tested, but overall has improved. Pt would like to keep original goals, but these will probably be greater nursing home goals beyond her therapy rehab. Physical Therapy Plan Frequency and Duration Duration of Treatment 8 weeks Plan of Care Start Date 08/03/19 Plan of Care End Date 12/12/19 Next Visit Focus/Plan Next Note Type Treatment Note Next Visit Plan 5 visits remaining, pt would like to save 2 remaining visits for later in the year. Discuss goals for timeline of rehab 60-90 days. Endurance ex for walking to cont improving function of 2' step test, Progress strengthening LE's ankles, hip Ext/AB's for functional standing and walking & upper back to reduce strain from pushing wheelchair. Gait training in // bars, transfer training, Cont stand pivot transfers/ neuro re-ed training to improve confidence level. Plan of Care Dates Plan of Care Start Date 08/03/19 Plan of Care End Date 12/12/19 Electronically Signed by: Dora Escalona, PT 10/13/19 [id number] Please Sign and Return: I have reviewed this Plan of Care and certify that the skilled therapy services above are required to meet the patient?s needs. Physician Signature Date Printed Name and Credentials Clinical Instructor Signature Printed Name and Credentials
--- NOTE | 2019-10-20 16:27 | PT.OTN ---
Current Diagnoses Multiple sclerosis (10/20/19) Muscle weakness (generalized) (10/20/19) History of falling (10/20/19) Physical Therapy Treatment Note PT-OP-A Visit Information Start: 04/19/19 15:25 Freq: Status: Active Protocol: Document 10/20/19 14:15 LRN (Rec: 10/20/19 15:06 LRN [id number]) Out-Patient Physical Therapy Visit Information Visit Information Visit Type Discharge Summary Visit Note 1 after PN Visit Start Time 14:15 Visit Stop Time 15:04 Total Visit Minutes 49 Visit Number 20 Evaluation Information Evaluation Date 04/19/19 Precautions Precautions Fall Risk Sensation Loss in bilateral LE PT-OP-B Current Condition Start: 04/19/19 15:25 Freq: Status: Active Protocol: Document 08/03/19 10:30 LRN (Rec: 08/03/19 16:02 LRN [id number]) Current Condition History of Current Condition Onset Date October 2018 Current Complaints Weakness/Instability with standing/transfers/walking History of Current Condition Patient is a 38 year old female who reports to physical therapy after being diagnosed with Multiple Sclerosis in February 2019. She has c/c of sensation and strength loss in both of her legs. Patient started feeling like she was walking like she was drunk in September of 2018. She started feeling like her legs felt heavy and stairs were starting to scare her at this time. Since then, she has had 2 falls - one in which she hurt her L knee and thought she has fractured her sacrum. Patient has since recieved an X-ray of this area and is following up with her PCP. She has pain at night from her hips down and at times has spasm in lower extremities. Patient reports that currently she is getting assistance from her aunt and parents but has been moving through the household and community primarily with a wheelchair. She is currently living in a day time basement with no stairs to enter. Patient is concerned about grab bars in the house and is looking at installation. She reports that she is currently showering at parent's house on shower chair. 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 She would like to gain more stability and confidence with her movements. 08/03/19: Pt returns following Covid 19 community isolation. Pt notes some improvement in strength. Walking 20-46' with walker and parent assist for chair behind her daily. Prior Treatments and Tests X-Rays Brain MRI - came back normal Spinal Taps Future Testing and Treatments Planned Medical Intervention for MS Treatment Goals Patient/Caregiver Goals 1. Would like to get more stable and confident with her movements. 2. Pt would like to be able to mobilize by walking independently with walker and not with wheelchair. 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 Walking with use of FWW. General mobility with wheelchair. Personal Factors Other Personal Factors That May Effect Past Laminectomy Therapy/Recovery BMI >30 Lives alone PT-OP-C Subjective Start: 04/19/19 15:25 Freq: Status: Active Protocol: Document 10/20/19 14:15 LRN (Rec: 10/20/19 15:06 LRN [id number]) OP-PT Subjective Patient Comments Patient Comments States R leg is not being cooperative today. PT-OP-E Functional Tests Start: 04/19/19 15:25 Freq: Status: Active Protocol: Document 10/13/19 14:18 LRN (Rec: 10/13/19 15:02 LRN [id number]) Functional Tests Other 2 min Step Test Name of Test 2' step test Score 13 steps Comment 2 sit rests (initially was 8 steps) PT-OP-G Mobility & Gait Start: 04/19/19 15:25 Freq: Status: Active Protocol: Document 08/03/19 10:30 LRN (Rec: 08/03/19 16:02 LRN [id number]) OP Mobility Evaluation Bed Mobility Rolling Independent Supine to and from Sit SBA Transfers Sit to Stand Independently with use of hands or railing/walker for stability on standing. Bed to Chair Transfers Independent Wheelchair <-> Plinth. OP Gait Assessment Comments Gait Comments Pt walked in parallel bars a very short distance independently with wheel chair behind her. PT-OP-H Neuro Start: 04/19/19 15:25 Freq: Status: Active Protocol: Document 08/03/19 10:30 LRN (Rec: 08/03/19 16:02 LRN [id number]) Sensation Evaluation Gross Sensation Gross Sensation Left LE Impaired,Right LE Impaired Sensation Description Numbness,Coldness,Heaviness Dermatome Impairments L4,L5,S1 Comments Summary Comments patient could not feel monofilament on bilateral feet throughout L4-S1. Patient did not have proprioceptive awareness of bilateral Great toe when passively flexed or extended. Vital Signs Comments Vital Signs Comments Before Activity: HR 89, SpO2 98% After Step Test: HR 88, SpO2 97% PT-OP-K Range of Motion Start: 04/19/19 15:25 Freq: Status: Active Protocol: Document 08/03/19 10:30 LRN (Rec: 08/03/19 16:02 LRN [id number]) Knee Goniometric Range of Motion Knee Right Knee ROM WFL Yes Patient Position Sitting Left Knee ROM WFL Yes Patient Position Sitting Ankle and Foot Goniometric Range of Motion Ankle and Foot ROM Limitations ROM Limitations Soft Tissue Tightness,Muscle Weakness Comments Ankle DF AROM: Right lacks 19 deg's; Left lacks 5 deg's. PT-OP-L Special Tests Start: 04/19/19 15:25 Freq: Status: Active Protocol: Document 08/03/19 10:30 LRN (Rec: 08/03/19 16:02 LRN [id number]) Special Tests Neural Special Tests- Lower Body Clonus Test Results + Comments non-fatiguing clonus on R PT-OP-M Strength Start: 04/19/19 15:25 Freq: Status: Active Protocol: Document 09/19/19 11:20 LRN (Rec: 09/19/19 12:26 LRN [id number]) Trunk Strength Trunk Manual Muscle Testing Testing Position Sitting Flexion 5 Normal Extension 5 Normal Rotation Left 5 Normal Rotation Right 5 Normal Lateral Flexion Left 5 Normal Lateral Flexion Right 4 Good Core Stabilization Able to stabilize pelvic position with MMT of hip flexion; therefore core stability present. PT-OP-Q Treatments Start: 04/19/19 15:25 Freq: Status: Active Protocol: Document 10/20/19 14:15 LRN (Rec: 10/20/19 15:06 LRN [id number]) Gym Equipment Cable Column (Body Solid) Row Details Row Resistance 20# Reps/Time 10x 2 Triceps Press Down Details Pressing down with arms (Scap depression) Resistance 20# Reps/Time 10x 3 Trunk rotation Details Trunk rot, cable just below breast hgt Resistance 20# Reps/Time 10x 3 L, !0 x2 R, 10x @ 10# R. Therapeutic Exercises Prone Exercises Hip Ext w/knee flexed Prone Exercise Name Assisted hip ext w/knee flexed Side bilateral Reps/Minutes 10x Comments R hip sometimes engages all ms to resist ext asst Hip Ext Prone Exercise Name Active hip Ext w/cuing to avoid pelvic rotation Side bilateral Resistance 0# Equipment Used Lgt green small round bolster Reps/Minutes 10x 3 Comments Assist to get to max hip ext. Hamsting curl Prone Exercise Name Hamstring curl Resistance 10#, 6# , 4# R, 10#, 8#, 6# L , Reps/Minutes 10 reps each except with last set of 6# R pt only did 5 reps . Comments Assisted with stabilizing of foot for proper movement. Gait Training Gait Activity Weight shift in // bars Description Wgt shifting in // bars (after walking) Device Used // bars Level of Assistance Held W/C behind pt Surface Level Distance/Duration 31 & 40 with rest periods Treatment Focus WBing tolerance. Comments Pt R LE was giving out. Walking in // Bars Description Walking Forward (1 length of bars = 12') Device Used // bars (36 hgt) with W/C behind her Level of Assistance Indep Surface Level Distance/Duration 1.5 lengths Treatment Focus Improve walking distance tolerance Comments Pt R leg was giving out. Max distance walked was 18' with one sit rest. PT-OP-T Assessment and Plan Start: 04/19/19 15:25 Freq: Status: Active Protocol: Document 10/20/19 14:15 LRN (Rec: 10/20/19 15:06 LRN [id number]) Physical Therapy Assessment Goals Four Impairment Gait Short Term Goal (STG) Patient will walk 20 feet in / / bars in 2-4 weeks. 08/13/19: GOAL MET. Pt is walking at home 23' with FWW and sometimes 46'. STG Duration 2-4 weeks (08/03/19 GOAL MET) Solid Plasterer Goal (LTG) Patient will walk 100 feet with FWW in 6-8 weeks. (: Pt walked 75' in // bars with 2 rests) LTG Duration 12/12/19 (10/20/19 NOT MET GOAL. Pt walks 60' with FWW at home). 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 (08/03/19: NOT MET, pt stands 30 sec's.) STG Duration 11/19/19 (10/20/19: NOT MET GOAL. Pt able to stand 31 & 40 sec's) Long-Term Goal (LTG) Patient will stand with FWW for 5 minutes without loss of balance in 4-6 weeks. LTG Duration 12/12/19 (10/20/19: NOT MET GOAL. Pt able to stand 31 & 40 sec's) Two Impairment Functional Activity Short Term Goal (STG) Patient will move from seated to supine independently with ability to move both legs on to bed with assistance from strap in 3 weeks. (08/03/19: GOAL MET in AM, in PM legs slide out of strap support) STG Duration 08/31/19 (09/12/19: GOAL MET) Long-Term Goal (LTG) Patient will move from seated to supine independently without assistance from external device with ability to swing both legs on to bed with a controlled movement to supine in 5 weeks. LTG Duration 10/06/19 (09/12/19: GOAL MET) One Impairment Transfers Short Term Goal (STG) Patient will perform stand- pivot transfers independently with 90% confidence from wheelchair to bed in 4 weeks. (10/20/19: 90% confidence when rested, less when tired) STG Duration 08/31/19 (10/20/19: GOAL MET. 90% confidence with transfers ) Solid Plasterer Goal (LTG) Patient will perform stand- pivot transfer independently with 100% confidence from wheelchair to bed in 6-8 weeks . LTG Duration 12/12/19 (10/20/19: NOT MET GOAL. Improved to 90% confidence) Assessment Summary Assessment The pt has overall improved in her transfer ability and her confidence in transfers. She has improved her gait ability, but notes variability in tolerance depending on how strong her legs feel. She finds static standing much more difficulty than walking; therefore she was not able to improve in this area. She has learned to modify her hygiene routine to accomidate for her shortened stance time. As expected she has weakness in her legs and trunk, but has a good HEP to maintain the strength she has. I discussed use of the pool for her therapy possibly in the future if further therapy is needed. Weak with R trunk rotation. Physical Therapy Plan Frequency and Duration Duration of Treatment 8 weeks Plan of Care Start Date 08/03/19 Plan of Care End Date 12/12/19 Discharge Physical Therapy Discharge Reasons Plateau in Progress Discharge Comments Discussed goals with pt and we agreed that she can continue with ex's at home to progress her LE endurance and strength. She has gained much confidence in her transfer ability and is walking daily at home with the help of her mother providing her wheelchair behind her as she walks. The pt is well aware of her home ex's and will be able to return towards the end of the year if other therapy is needed. Thank you for your referral.
== END 2020-03-07 08:51 ==
LOC: PHYS 14:15
PROVIDERS: PCP Physician Assistant; Visit Provider Internal Medicine
DX: G35 Multiple sclerosis (principal); M62.81 Muscle weakness (generalized); Z91.81 History of falling
CPT/HCPCS: 97110; 97112; 97116; 97140; 97163; 97530

== ENCOUNTER → 2019-12-04 10:14 | Outpatient (CLI) | payer OTHER, MEDICAID, SELFPAY ==
--- NOTE | 2019-12-04 10:29 | DI.MG.S_ITS ---
Patient Name: MICHAEL LAND date: 1980 Sex: F Attending Physician: Deann Indications: Date: 12/04/2019 10:17 At the request of: DARIAN RHODES Procedure: MM screening mammo BI BILATERAL DIGITAL SCREENING MAMMOGRAM 3D/2D WITH CAD: 12/04/2019 CLINICAL: Baseline exam. Routine screening. No prior exams were available for comparison. The tissue of both breasts is predominantly fatty. Current study was also evaluated with a Computer Aided Detection (CAD) system. No significant masses, calcifications, or other findings are seen in either breast. IMPRESSION: NEGATIVE There is no mammographic evidence of malignancy. A 1 year screening mammogram is recommended. This exam was interpreted at Station ID: [id number]. NOTE: For mammograms, a report in lay terms will be sent to the patient. Approximately 15% of breast malignancies will not be visualized mammographically. In the management of a palpable breast mass, a negative mammogram must not discourage biopsy of a clinically suspicious lesion. Electronically Signed By: Dora singh/jennifer:12/04/2019 15:10:29 letter sent: Normal Exam ACR BI-RADS Category 1: Negative [id number]
== END ==
PROVIDERS: PCP Student in an Organized Health Care Education/Training Program; Referring Provider Student in an Organized Health Care Education/Training Program; Visit Provider Student in an Organized Health Care Education/Training Program
DX: Z12.31 Encounter for screening mammogram for malignant neoplasm of breast (principal)
CPT/HCPCS: 77063; 77067

== ENCOUNTER → 2020-03-06 14:06 | Outpatient (CLI) | payer OTHER, MEDICAID, SELFPAY ==
[2020-03-06 15:58] LABS: COVID19 -Nasal RAPID Negative (Negative)
== END ==
PROVIDERS: PCP Student in an Organized Health Care Education/Training Program; Referring Provider Internal Medicine; Visit Provider Internal Medicine
DX: Z20.828 Contact with and (suspected) exposure to other viral communicable diseases (principal)
CPT/HCPCS: 87635; C9803

== ENCOUNTER → 2020-03-07 12:49 | Outpatient (CLI) | payer OTHER, MEDICAID, SELFPAY ==
--- NOTE | 2020-03-12 08:53 | PM.PFT.1 ---
Pulmonary Function Test Referral & Results Date Patient Seen: 03/07/20 Requesting provider: Rehan Zacarias Indication: Wheezing, shortness of breath Results: The spirometry demonstrates an FVC of 3.0 L which is 76% of predicted. The FEV1 was measured at 2.43 L which is 76% of predicted. The FEV1/FVC ratio was 81 which is 90% of predicted. Following the administration of bronchodilator there was no appreciable change. Lung volumes show an SVC of 3.03 L which is 83% of predicted. The diffusing capacity was measured at 23.45 which is 87% of predicted. The maximum voluntary ventilation was reduced Interpretation: This study demonstrates perhaps very mild obstructive lung disease based on reduction FEV1 although FEV1/FVC ratio is normal, there is no benefit following bronchodilator and shape a flow volume loop does not suggest obstructive lung disease. The shape of the flow volume loop suggests fixed (possible upper airway) obstruction. Given the reduction in MVV which is greater than that of the reduction in FEV1, consideration should be made for possible neuromuscular disease
== END ==
PROVIDERS: PCP Student in an Organized Health Care Education/Training Program; Referring Provider Student in an Organized Health Care Education/Training Program; Visit Provider Student in an Organized Health Care Education/Training Program
DX: R06.02 Shortness of breath (principal); R06.2 Wheezing; J98.8 Other specified respiratory disorders
CPT/HCPCS: 94060; 94726; 94729

== ENCOUNTER → 2020-04-09 13:50 | Outpatient (CLI) | payer OTHER, MEDICAID, SELFPAY ==
--- NOTE | 2020-04-09 13:52 | DI.RAD.S_ITS ---
PROCEDURE: XR CHEST 2V INDICATIONS: abnormal PFT TECHNIQUE: 2 views of the chest were acquired. COMPARISON: [facility], [place], XR CHEST 2V, 06/14/2018, 11:20. [facility], [place], CHEST 2 VIEW, 04/17/2016, 14:10. FINDINGS: Surgical changes and devices: None. Lungs and pleura: Lungs are clear considering large body habitus and relatively light film technique. No pleural effusions or pneumothorax. Mediastinum: Mediastinal contours are normal. Heart size is normal. Bones and chest wall: No suspicious bony abnormalities. Soft tissues appear unremarkable. IMPRESSION: No acute disease. Relatively large body habitus and light film technique. Dictated by: Jarod Acosta M.D. on 04/09/2020 at 14:37 Approved by: aJrod Acosta M.D. on 04/09/2020 at 14:37
== END ==
PROVIDERS: PCP Student in an Organized Health Care Education/Training Program; Referring Provider Student in an Organized Health Care Education/Training Program; Visit Provider Student in an Organized Health Care Education/Training Program
DX: R94.2 Abnormal results of pulmonary function studies (principal); R06.1 Stridor
CPT/HCPCS: 71046

== ENCOUNTER → 2020-04-11 11:50 | Outpatient (CLI) | payer OTHER, MEDICAID, SELFPAY ==
--- NOTE | 2020-04-11 11:51 | DI.CT.S_ITS ---
PROCEDURE: CT SOFT TISSUE NECK WO CON INDICATIONS: Stridor, abnormal PFT TECHNIQUE: Non-contrast 3.0 mm axial sections acquired from the sella to the aortic arch. Additional oblique axial 3.0 mm sections acquired through the pharynx. 3 mm thick coronal and sagittal reformats were generated. For radiation dose reduction, the following was used: automated exposure control. COMPARISON: None. FINDINGS: Image quality: Excellent. Lymph nodes: No enlarged lymph nodes seen throughout the neck. Vessels: Non-opacified vessels appear normal in caliber. Neck spaces: The oropharynx, nasopharynx, and pharynx demonstrate no mucosal lesions. Slight prominence of the posterior-left subglottic mucosa medially inferior to the true vocal cords. The vocal cords, false vocal cords, pyriform sinuses, epiglottis, vallecula, and tongue base all appear normal. Extramucosal spaces appear unremarkable. Glands: The parotid and submandibular glands appear normal, without stones. Thyroid gland contains a 1.1 centimeter partially calcified nodule in the left lobe.. Miscellaneous: Visualized brain and orbits appear normal. Spine degenerative disc disease and facet arthropathy.Lung apices appear clear. Superficial soft tissues appear normal. IMPRESSION: 1. Slight prominence of the subglottic mucosa immediately inferior to the true vocal cords. Recommend ENT consultation for correlation with direct visualization to exclude early neoplastic process. 2. No lymphadenopathy based on size criteria. 3. No soft tissue swelling or abscess. 4. 1.1 centimeter partially calcified left thyroid nodule. Dictated by: Tamara Brady MD, PhD on 04/11/2020 at 11:17 Approved by: Tamara Brady MD, PhD on 04/11/2020 at 11:23
== END ==
PROVIDERS: PCP Student in an Organized Health Care Education/Training Program; Referring Provider Student in an Organized Health Care Education/Training Program; Visit Provider Student in an Organized Health Care Education/Training Program
DX: R06.2 Wheezing (principal); R94.2 Abnormal results of pulmonary function studies; E04.1 Nontoxic single thyroid nodule
CPT/HCPCS: 70490

== ENCOUNTER → 2020-06-11 15:05 | Outpatient (CLI) | payer OTHER, MEDICAID, SELFPAY ==
[2020-06-11] MEDS: COVID-19 VACC #1, MRNA(MOD) 100 MCG/0.5 ML VIAL IM (15:12)
== END ==
PROVIDERS: PCP Student in an Organized Health Care Education/Training Program; Visit Provider Internal Medicine
DX: Z23 Encounter for immunization (principal)
CPT/HCPCS: 0011A; 91301

== ENCOUNTER → 2020-07-10 15:07 | Outpatient (CLI) | payer OTHER, MEDICAID, SELFPAY ==
[2020-07-10] MEDS: COVID-19 VACC #2, MRNA(MOD) 100 MCG/0.5 ML VIAL IM (15:14)
== END ==
PROVIDERS: PCP Student in an Organized Health Care Education/Training Program; Visit Provider Internal Medicine
DX: Z23 Encounter for immunization (principal)
CPT/HCPCS: 0012A; 91301

== ENCOUNTER → 2021-02-06 13:42 | Outpatient (CLI) | payer OTHER, MEDICAID, SELFPAY ==
--- NOTE | 2021-02-06 | DI.MG.S_ITS ---
BILATERAL DIGITAL SCREENING MAMMOGRAM 3D/2D WITH CAD: 02/06/2021 CLINICAL: Routine screening. Comparison is made to exam dated: 12/04/2019 [facility]. The tissue of both breasts is predominantly fatty. Current study was also evaluated with a Computer Aided Detection (CAD) system. No significant masses, calcifications, or other findings are seen in either breast. There has been no significant interval change. IMPRESSION: NEGATIVE There is no mammographic evidence of malignancy. A 1 year screening mammogram is recommended. This exam was interpreted at Station ID: [id number]. NOTE: For mammograms, a report in lay terms will be sent to the patient. Approximately 15% of breast malignancies will not be visualized mammographically. In the management of a palpable breast mass, a negative mammogram must not discourage biopsy of a clinically suspicious lesion. Electronically Signed By: Jerry figueroa/jennifer:02/06/2021 14:24:04 letter sent: Normal Exam ACR BI-RADS Category 1: Negative [id number]
== END ==
PROVIDERS: PCP Student in an Organized Health Care Education/Training Program; Referring Provider Student in an Organized Health Care Education/Training Program; Visit Provider Student in an Organized Health Care Education/Training Program
DX: Z12.31 Encounter for screening mammogram for malignant neoplasm of breast (principal)
CPT/HCPCS: 77063; 77067

== ENCOUNTER 2021-03-06 13:30 | Outpatient (RCR) | payer OTHER, MEDICAID, SELFPAY ==
--- NOTE | 2020-06-03 16:47 | PT.OIE ---
Current Diagnoses Multiple sclerosis (06/03/20) Paraplegia, incomplete (06/03/20) Muscle weakness (generalized) (06/03/20) Visit Care Team Role Provider Type Rehan Zacarias MD Primary Care Provider Physician Specialty: Internal Medicine Address: [address] [place] [address], [address], [address] Email: [email or web address] Rufino Umaña MD Attending Provider Non-Staff Referring Provider Specialty: Psychiatry Address: [address] [place] [address], [address], [place], [address] Email: Physical Therapy Initial Evaluation PT-OP-A Visit Information Start: 05/28/20 18:12 Freq: Status: Active Protocol: Document 06/03/20 12:35 LRN (Rec: 06/03/20 14:23 LRN [id number]) Out-Patient Physical Therapy Visit Information Visit Information Visit Type Initial Evaluation Visit Start Time 13:37 Visit Stop Time 14:22 Total Visit Minutes 45 Visit Number 1 Evaluation Information Evaluation Date 06/03/20 Precautions Precautions Multiple Sclerosis, Paresthesia of both feet, HBP without diagnosis. PT-OP-B Current Condition Start: 05/28/20 18:12 Freq: Status: Active Protocol: Document 06/03/20 12:35 LRN (Rec: 06/03/20 14:23 LRN [id number]) Current Condition History of Current Condition Onset Date Mar 2020 Current Complaints Balance is not good, harder to walk History of Current Condition Getting harder to walk and exercise due to weakness of LE 's, possibly due to multiple sclerosis progression. Can only walk 55' with walker with wheelchair pushed behind her. She reports R foot drop, cold feet and legs, but can feel difference between hot/ cold. Prior Treatments and Tests Physical therapy ending 09/2019 . Treatment Goals Patient/Caregiver Goals Pt goal is to be able to walk farther without legs going out from under her. Be able to get out of bed and walk to bathroom and back independently without wheelchair behind and using a walker, and to be able to walk with a walker without someone behind with wheelchair. Prior Functional Status Baseline Function- ADL's Needs Assist Baseline Function- Mobility Needs Assist Baseline Function- Gait Ambs with FWW with caregiver behind her with a wheelchair. Current Functional Impairments (Reported) Functional Limitations- ADL's Dependent on Wheelchair for mobility. Functional Limitations- Mobility/Gait Able to take 3 steps before the legs give out. Tries to do daily walking 25' x 2 per gait practice with walker and wheelchair behind her in case legs give out. Functional Limitations- Recreation/ LE ex's every other day. Hobbies Opposite days she showers. Personal Factors Other Personal Factors That May Effect MS, paresthesia of both feet, Therapy/Recovery mostly wheelchair bound, father had recent stroke, so mother who was her caregiver is now caregiving to her father. Pt now is depending on her aunt to assist her with mobility and home exercises. PT-OP-C Subjective Start: 05/28/20 18:12 Freq: Status: Active Protocol: Document 06/03/20 12:35 LRN (Rec: 06/03/20 14:23 LRN [id number]) OP-PT Subjective Patient Comments Patient Comments Pt confidence level of walking without walker or someone behind is 0%. Pt confidence level of walking with a walker is 80%, but without a w/c behind her her confidence would be 30%. Patient Questionnaires ABC- Activity Specific Balance Confidence Scale ABC Score 4 ABC Functional Impairment 80 to <100% Impaired (Score 1- 20) OP-PT Pain Assessment Pain Assessment Grid Paper Pain Assessment Grid Completed Yes Location R intrascapular region Pain Location Details Medial border of R scapula Intensity 1 Scale Used Numeric (0 - 10) Left Buttock Pain Location Details L Buttock Intensity 1 Scale Used Numeric (0 - 10) Low back Pain Location Details Across Low Back Intensity 1 Scale Used Numeric (0 - 10) PT-OP-G Mobility & Gait Start: 06/03/20 12:34 Freq: Status: Active Protocol: Document 06/03/20 12:35 LRN (Rec: 06/03/20 17:34 LRN [id number]) OP Gait Assessment Gait Gait Assistance Required: 1 Person Assist Distance (Feet) 10 Assistive Devices Assistive Device Front Wheeled Walker Orthotic/Prosthetic Devices or Brace: No Gait Deviations General Gait Pattern Decreased Stride Length Factors Limiting Gait Function Factors Limiting Gait Function Decreased Activity Tolerance, Decreased Strength Comments Gait Comments Pt required use of UE support and close CGA with wheelchair behind patient in case of collapse of legs. Stair Climbing Evaluation Comments Stair Climbing Comments Not safe or applicable to patient. PT-OP-K Range of Motion Start: 05/28/20 18:12 Freq: Status: Active Protocol: Document 06/03/20 12:35 LRN (Rec: 06/03/20 17:34 LRN [id number]) Hip Goniometric Range of Motion Hip Right Active Testing Position Prone Extension 5 Left Active Testing Position Prone Extension 7 Right Passive Testing Position Sup & Prone Straight Leg Raise 75 Internal Rotation 45 External Rotation 30 Comments Hip ER/IR measurements in prone Left Passive Testing Position Sup & Prone Straight Leg Raise 75 Internal Rotation 55 External Rotation 30 Comments Hip ER/IR measurements in prone Ankle and Foot Goniometric Range of Motion Ankle and Foot Right Active Testing Position Sitting Dorsiflexion with Knee Flexed 5 Left Active Testing Position Sitting Dorsiflexion with Knee Flexed 4 PT-OP-M Strength Start: 05/28/20 18:12 Freq: Status: Active Protocol: Document 06/03/20 12:35 LRN (Rec: 06/03/20 17:34 LRN [id number]) Hip Strength Hip Manual Muscle Testing Right Flexion (L2) 3 Fair Extension (S1) 2+ Poor+ Abduction 2+ Poor+ Adduction 2+ Poor+ Left Flexion (L2) 3 Fair Extension (S1) 3- Fair- Abduction 3 Fair Adduction 3+ Fair+ Knee Strength Knee Manual Muscle Testing Right Comments Generally 5/5 with MMT break testing in 45 deg's knee flex Left Comments Generally 5/5 with MMT break testing in 45 deg's knee flex Ankle/Foot Strength Ankle and Foot Manual Muscle Testing Right Dorsiflexion (L4) 5 Normal Plantarflexion (S1) 5 Normal Inversion 2+ Poor+ Eversion (S1) 5 Normal Left Dorsiflexion (L4) 5 Normal Plantarflexion (S1) 5 Normal Inversion 5 Normal Eversion (S1) 3+ Fair+ PT-OP-Q Treatments Start: 05/28/20 18:12 Freq: Status: Active Protocol: Document 06/03/20 12:35 LRN (Rec: 06/03/20 14:23 LRN [id number]) Self-Care/Home Management Treatment Education Other Education Discussed results of evaluation, goals & plan of care. PT-OP-T Assessment and Plan Start: 05/28/20 18:12 Freq: Status: Active Protocol: Document 06/03/20 12:35 LRN (Rec: 06/03/20 14:23 LRN [id number]) Physical Therapy Assessment Rehab Potential Rehabilitation Potential Good Evaluation Complexity Number of Personal Factors/Comorbidities 3 or More Number of Body Systems Impaired 4 or More Clinical Presentation at Evaluation Evolving Impairments Impairments Activity Tolerance,Balance, Gait,Strength Other Impairments Diagnosed with Multiple Sclerosis. Goals Four Impairment Limited Gait mobility Short Term Goal (STG) Patient will walk 60 feet in / / bars without legs giving out with 1 rest. STG Duration 06/28/20 Naval [employer] Warfare Medic Goal (LTG) Patient will walk 75-100 feet with FWW with 2 rests. LTG Duration 10/01/20 Three Impairment Decreased Standing Balance Short Term Goal (STG) Patient will improve balance to be able to balance independently and walk 6 steps without need of wheelchair behind her for safety. STG Duration 06/28/20 [employer] Medic Goal (LTG) Patient will improve balance to stand independently and walk to bathroom with FWW without need of wheelchair behind her for safety. LTG Duration 10/01/20 Two Impairment Decreased Endurance Short Term Goal (STG) Improve 5XSTS [employer] Medic Goal (LTG) Pt will be able to walk a block 150' with multiple rests with FWW and w/c behind her for safety. LTG Duration 10/01/20 One Impairment Lacks complete HEP [employer] Medic Goal (LTG) Pt will have a HEP for progression of strengthening for her to do with caregiver ( Aunt). LTG Duration 10/01/20 Assessment Summary Assessment Pt is a 39 year old female with history of Multiple Sclerosis and chronic LE weakness and mobility dysfunctions. The pt is very familiar to me from a past rehabilitation program for similar complaints. The pt appears to have declined in her functional ability in some areas and has continued to perform her previously issued HEP. Due to family circumstances her activity routines have changed; therefore the pt is hoping to have further return of function with this course of physical therapy. The pt will benefit from skilled physical therapy for LE/core strengthening, endurance training, gait and balance training. Physical Therapy Plan Frequency and Duration Frequency of Treatment 1x/Week Plan of Care Start Date 06/03/20 Plan of Care End Date 10/01/20 Therapeutic Interventions Therapeutic Interventions Aquatic Therapy,Gait Training, Home Exercise Program, Neuromuscular Re-education, Patient/Caregiver Education, Self-Care/Home Management, Therapeutic Activities, Therapeutic Exercises Next Visit Focus/Plan Next Note Type Treatment Note Next Visit Plan Assess UE strength, 5xSTS, 18 June test. Start Trunk strengthening, hip strengthening (hip Ext, AB, Clamshell), gait endurance training, end with stretch to ankle DF, Quads & Hamstrings.
--- NOTE | 2020-06-03 16:47 | PT.OPPOC ---
Physical, Occupational & Speech Therapy At [facility] Current Diagnoses Multiple sclerosis (06/03/20) Paraplegia, incomplete (06/03/20) Muscle weakness (generalized) (06/03/20) Visit Care Team Role Provider Type Rehan Zacarias MD Primary Care Provider Physician Specialty: Internal Medicine Address: [address] [place] [address] [address], [place], [address] Email: [email or web address] Rufino Umaña MD Attending Provider Non-Staff Referring Provider Specialty: Psychiatry Address: [address] [place] [address], [place] [address], [place], [address] Email: Plan Of Care PT-OP-T Assessment and Plan Start: 05/28/20 18:12 Freq: Status: Active Protocol: Document 06/03/20 12:35 LRN (Rec: 06/03/20 14:23 LRN [id number]) Physical Therapy Assessment Rehab Potential Rehabilitation Potential Good Evaluation Complexity Number of Personal Factors/Comorbidities 3 or More Number of Body Systems Impaired 4 or More Clinical Presentation at Evaluation Evolving Impairments Impairments Activity Tolerance,Balance, Gait,Strength Other Impairments Diagnosed with Multiple Sclerosis. Goals Four Impairment Limited Gait mobility Short Term Goal (STG) Patient will walk 60 feet in / / bars without legs giving out with 1 rest. STG Duration 06/28/20 Alf Goal (LTG) Patient will walk 75-100 feet with FWW with 2 rests. LTG Duration 10/01/20 Three Impairment Decreased Standing Balance Short Term Goal (STG) Patient will improve balance to be able to balance independently and walk 6 steps without need of wheelchair behind her for safety. STG Duration 06/28/20 Therapeutic Sales Specialist Goal (LTG) Patient will improve balance to stand independently and walk to bathroom with FWW without need of wheelchair behind her for safety. LTG Duration 10/01/20 Two Impairment Decreased Endurance Short Term Goal (STG) Improve 5XSTS Alf Goal (LTG) Pt will be able to walk a block 150' with multiple rests with FWW and w/c behind her for safety. LTG Duration 10/01/20 One Impairment Lacks complete HEP Therapeutic Sales Specialist Goal (LTG) Pt will have a HEP for progression of strengthening for her to do with caregiver ( Aunt). LTG Duration 10/01/20 Assessment Summary Assessment Pt is a 39 year old female with history of Multiple Sclerosis and chronic LE weakness and mobility dysfunctions. The pt is very familiar to me from a past rehabilitation program for similar complaints. The pt appears to have declined in her functional ability in some areas and has continued to perform her previously issued HEP. Due to family circumstances her activity routines have changed; therefore the pt is hoping to have further return of function with this course of physical therapy. The pt will benefit from skilled physical therapy for LE/core strengthening, endurance training, gait and balance training. Physical Therapy Plan Frequency and Duration Frequency of Treatment 1x/Week Plan of Care Start Date 06/03/20 Plan of Care End Date 10/01/20 Therapeutic Interventions Therapeutic Interventions Aquatic Therapy,Gait Training, Home Exercise Program, Neuromuscular Re-education, Patient/Caregiver Education, Self-Care/Home Management, Therapeutic Activities, Therapeutic Exercises Next Visit Focus/Plan Next Note Type Treatment Note Next Visit Plan Assess UE strength, 5xSTS, 18 June test. Start Trunk strengthening, hip strengthening (hip Ext, AB, Clamshell), gait endurance training, end with stretch to ankle DF, Quads & Hamstrings. Plan of Care Dates Plan of Care Start Date 06/03/20 Plan of Care End Date 10/01/20 Electronically Signed by: Dora Escalona, PT 06/04/20 [id number] Please Sign and Return: I have reviewed this Plan of Care and certify that the skilled therapy services above are required to meet the patient?s needs. Physician Signature Date Printed Name and Credentials Clinical Instructor Signature Printed Name and Credentials
--- NOTE | 2020-06-11 15:39 | PT.OTN ---
Current Diagnoses Multiple sclerosis (06/11/20) Paraplegia, incomplete (06/11/20) Muscle weakness (generalized) (06/11/20) Physical Therapy Treatment Note PT-OP-A Visit Information Start: 05/28/20 18:12 Freq: Status: Active Protocol: Document 06/11/20 13:38 LRN (Rec: 06/11/20 14:19 LRN [id number]) Out-Patient Physical Therapy Visit Information Visit Information Visit Type Treatment Note Visit Start Time 13:39 Visit Stop Time 14:17 Total Visit Minutes 38 Visit Number 2 Evaluation Information Evaluation Date 06/03/20 Precautions Precautions Multiple Sclerosis, Paresthesia of both feet, HBP without diagnosis. PT-OP-B Current Condition Start: 05/28/20 18:12 Freq: Status: Active Protocol: Document 06/03/20 12:35 LRN (Rec: 06/03/20 14:23 LRN [id number]) Current Condition History of Current Condition Onset Date Mar 2020 Current Complaints Balance is not good, harder to walk History of Current Condition Getting harder to walk and exercise due to weakness of LE 's, possibly due to multiple sclerosis progression. Can only walk 55' with walker with wheelchair pushed behind her. She reports R foot drop, cold feet and legs, but can feel difference between hot/ cold. Prior Treatments and Tests Physical therapy ending 09/2019 . Treatment Goals Patient/Caregiver Goals Pt goal is to be able to walk farther without legs going out from under her. Be able to get out of bed and walk to bathroom and back independently without wheelchair behind and using a walker, and to be able to walk with a walker without someone behind with wheelchair. Prior Functional Status Baseline Function- ADL's Needs Assist Baseline Function- Mobility Needs Assist Baseline Function- Gait Ambs with FWW with caregiver behind her with a wheelchair. Current Functional Impairments (Reported) Functional Limitations- ADL's Dependent on Wheelchair for mobility. Functional Limitations- Mobility/Gait Able to take 3 steps before the legs give out. Tries to do daily walking 25' x 2 per gait practice with walker and wheelchair behind her in case legs give out. Functional Limitations- Recreation/ LE ex's every other day. Hobbies Opposite days she showers. Personal Factors Other Personal Factors That May Effect MS, paresthesia of both feet, Therapy/Recovery mostly wheelchair bound, father had recent stroke, so mother who was her caregiver is now caregiving to her father. Pt now is depending on her aunt to assist her with mobility and home exercises. PT-OP-C Subjective Start: 05/28/20 18:12 Freq: Status: Active Protocol: Document 06/11/20 13:38 LRN (Rec: 06/11/20 14:19 LRN [id number]) OP-PT Subjective Patient Comments Patient Comments No changes. PT-OP-E Functional Tests Start: 06/03/20 12:34 Freq: Status: Active Protocol: Document 06/11/20 13:38 LRN (Rec: 06/11/20 14:19 LRN [id number]) Functional Tests Five Times Sit to Stand Test Score 22 secs Comments Used hands to stand within // bars. NORM: 60-69 yo 11.4 sec Other 18 June Test Name of Test 18 June Test Score 7x Comment Pt fatigued at end of test PT-OP-G Mobility & Gait Start: 06/03/20 12:34 Freq: Status: Active Protocol: Document 06/03/20 12:35 LRN (Rec: 06/03/20 17:34 LRN [id number]) OP Gait Assessment Gait Gait Assistance Required: 1 Person Assist Distance (Feet) 10 Assistive Devices Assistive Device Front Wheeled Walker Orthotic/Prosthetic Devices or Brace: No Gait Deviations General Gait Pattern Decreased Stride Length Factors Limiting Gait Function Factors Limiting Gait Function Decreased Activity Tolerance, Decreased Strength Comments Gait Comments Pt required use of UE support and close CGA with wheelchair behind patient in case of collapse of legs. Stair Climbing Evaluation Comments Stair Climbing Comments Not safe or applicable to patient. PT-OP-K Range of Motion Start: 05/28/20 18:12 Freq: Status: Active Protocol: Document 06/03/20 12:35 LRN (Rec: 06/03/20 17:34 LRN [id number]) Hip Goniometric Range of Motion Hip Right Active Testing Position Prone Extension 5 Left Active Testing Position Prone Extension 7 Right Passive Testing Position Sup & Prone Straight Leg Raise 75 Internal Rotation 45 External Rotation 30 Comments Hip ER/IR measurements in prone Left Passive Testing Position Sup & Prone Straight Leg Raise 75 Internal Rotation 55 External Rotation 30 Comments Hip ER/IR measurements in prone Ankle and Foot Goniometric Range of Motion Ankle and Foot Right Active Testing Position Sitting Dorsiflexion with Knee Flexed 5 Left Active Testing Position Sitting Dorsiflexion with Knee Flexed 4 PT-OP-M Strength Start: 05/28/20 18:12 Freq: Status: Active Protocol: Document 06/03/20 12:35 LRN (Rec: 06/03/20 17:34 LRN [id number]) Hip Strength Hip Manual Muscle Testing Right Flexion (L2) 3 Fair Extension (S1) 2+ Poor+ Abduction 2+ Poor+ Adduction 2+ Poor+ Left Flexion (L2) 3 Fair Extension (S1) 3- Fair- Abduction 3 Fair Adduction 3+ Fair+ Knee Strength Knee Manual Muscle Testing Right Comments Generally 5/5 with MMT break testing in 45 deg's knee flex Left Comments Generally 5/5 with MMT break testing in 45 deg's knee flex Ankle/Foot Strength Ankle and Foot Manual Muscle Testing Right Dorsiflexion (L4) 5 Normal Plantarflexion (S1) 5 Normal Inversion 2+ Poor+ Eversion (S1) 5 Normal Left Dorsiflexion (L4) 5 Normal Plantarflexion (S1) 5 Normal Inversion 5 Normal Eversion (S1) 3+ Fair+ PT-OP-Q Treatments Start: 05/28/20 18:12 Freq: Status: Active Protocol: Document 06/11/20 13:38 LRN (Rec: 06/11/20 14:19 LRN [id number]) Therapeutic Exercises Sitting Exercises Trunk SB Sitting Exercise Name R Trunk SB Side bilateral Resistance Lev 3 Reps/Minutes 10x 3 Trunk rot Sitting Exercise Name Trunk rot Side bilateral Resistance Lev 3 Reps/Minutes 30x each Scapular Retractions Sitting Exercise Name Scapular retractions Equipment Used Lev 3 Reps/Minutes 30x Standing Exercises Sit to stand Standing Exercise Name Sit to Stands Reps/Minutes 1' Comments Rest needed after ex. Gait Training Gait Activity Walking within LIKO walker lift Description LIKO lift used as walker w/2 person assist Device Used PowelectricsO lift Level of Assistance 1 person behind with w/c and one in front monitoring LIKO lift progression Surface Level Distance/Duration 12' Treatment Focus Gait endurance Comments Multiple attempts needed before pt able to stand with lift Walking in // Bars Description Walking Forward (1 length of bars = 12') Device Used // bars (36 hgt) with W/C behind her Level of Assistance Indep Surface Level Distance/Duration 3 lengths Treatment Focus Improve walking distance tolerance Comments Sit rest between lengths in order to turn pt around to walk PT-OP-T Assessment and Plan Start: 05/28/20 18:12 Freq: Status: Active Protocol: Document 06/11/20 13:38 LRN (Rec: 06/11/20 14:19 LRN [id number]) Physical Therapy Assessment Goals Four Impairment Limited Gait mobility Short Term Goal (STG) Patient will walk 60 feet in / / bars without legs giving out with 1 rest. (06/11/20: Pt gait 36' with fatigue at end) STG Duration 06/28/20 (06/11/20: Progressing ) Volcanology Professor Goal (LTG) Patient will walk 75-100 feet with FWW with 2 rests. LTG Duration 10/01/20 Three Impairment Decreased Standing Balance Short Term Goal (STG) Patient will improve balance to be able to balance independently and walk 6 steps without need of wheelchair behind her for safety. STG Duration 06/28/20 Volcanology Professor Goal (LTG) Patient will improve balance to stand independently and walk to bathroom with FWW without need of wheelchair behind her for safety. LTG Duration 10/01/20 Two Impairment Decreased Endurance Short Term Goal (STG) Improve 5XSTS Detention Goal (LTG) Pt will be able to walk a block 150' with multiple rests with FWW and w/c behind her for safety. LTG Duration 10/01/20 One Impairment Lacks complete HEP Detention Goal (LTG) Pt will have a HEP for progression of strengthening for her to do with caregiver ( Aunt). LTG Duration 10/01/20 Assessment Summary Assessment Pt showed good tolerance to ex with fatigue after 3 lengths in // bars. Pt was too tired after // bars walking to tolerate LIKO walking. Pt arm biceps/triceps strength is good. 5XSTS is 22 secs and 18 June Test is 7x. Physical Therapy Plan Frequency and Duration Frequency of Treatment 1x/Week Plan of Care Start Date 06/03/20 Plan of Care End Date 10/01/20 Next Visit Focus/Plan Next Note Type Treatment Note Next Visit Plan Start walking in [place], PRE Trunk strengthening, hip strengthening (hip Ext, AB, Clamshell), gait endurance training, end with stretch to ankle DF, Quads & Hamstrings.
--- NOTE | 2020-06-18 16:25 | PT.OTN ---
Current Diagnoses Multiple sclerosis (06/18/20) Paraplegia, incomplete (06/18/20) Muscle weakness (generalized) (06/18/20) Physical Therapy Treatment Note PT-OP-A Visit Information Start: 05/28/20 18:12 Freq: Status: Active Protocol: Document 06/18/20 12:32 LRN (Rec: 06/18/20 14:16 LRN [id number]) Out-Patient Physical Therapy Visit Information Visit Information Visit Type Treatment Note Visit Start Time 13:30 Visit Stop Time 14:10 Total Visit Minutes 40 Visit Number 3 Evaluation Information Evaluation Date 06/03/20 Precautions Precautions Multiple Sclerosis, Paresthesia of both feet, HBP without diagnosis. PT-OP-B Current Condition Start: 05/28/20 18:12 Freq: Status: Active Protocol: Document 06/03/20 12:35 LRN (Rec: 06/03/20 14:23 LRN [id number]) Current Condition History of Current Condition Onset Date Mar 2020 Current Complaints Balance is not good, harder to walk History of Current Condition Getting harder to walk and exercise due to weakness of LE 's, possibly due to multiple sclerosis progression. Can only walk 55' with walker with wheelchair pushed behind her. She reports R foot drop, cold feet and legs, but can feel difference between hot/ cold. Prior Treatments and Tests Physical therapy ending 09/2019 . Treatment Goals Patient/Caregiver Goals Pt goal is to be able to walk farther without legs going out from under her. Be able to get out of bed and walk to bathroom and back independently without wheelchair behind and using a walker, and to be able to walk with a walker without someone behind with wheelchair. Prior Functional Status Baseline Function- ADL's Needs Assist Baseline Function- Mobility Needs Assist Baseline Function- Gait Ambs with FWW with caregiver behind her with a wheelchair. Current Functional Impairments (Reported) Functional Limitations- ADL's Dependent on Wheelchair for mobility. Functional Limitations- Mobility/Gait Able to take 3 steps before the legs give out. Tries to do daily walking 25' x 2 per gait practice with walker and wheelchair behind her in case legs give out. Functional Limitations- Recreation/ LE ex's every other day. Hobbies Opposite days she showers. Personal Factors Other Personal Factors That May Effect MS, paresthesia of both feet, Therapy/Recovery mostly wheelchair bound, father had recent stroke, so mother who was her caregiver is now caregiving to her father. Pt now is depending on her aunt to assist her with mobility and home exercises. PT-OP-C Subjective Start: 05/28/20 18:12 Freq: Status: Active Protocol: Document 06/18/20 12:32 LRN (Rec: 06/18/20 14:16 LRN [id number]) OP-PT Subjective Patient Comments Patient Comments No complaints PT-OP-E Functional Tests Start: 06/03/20 12:34 Freq: Status: Active Protocol: Document 06/11/20 13:38 LRN (Rec: 06/11/20 14:19 LRN [id number]) Functional Tests Five Times Sit to Stand Test Score 22 secs Comments Used hands to stand within // bars. NORM: 60-69 yo 11.4 sec Other 18 June Test Name of Test 18 June Test Score 7x Comment Pt fatigued at end of test PT-OP-G Mobility & Gait Start: 06/03/20 12:34 Freq: Status: Active Protocol: Document 06/03/20 12:35 LRN (Rec: 06/03/20 17:34 LRN [id number]) OP Gait Assessment Gait Gait Assistance Required: 1 Person Assist Distance (Feet) 10 Assistive Devices Assistive Device Front Wheeled Walker Orthotic/Prosthetic Devices or Brace: No Gait Deviations General Gait Pattern Decreased Stride Length Factors Limiting Gait Function Factors Limiting Gait Function Decreased Activity Tolerance, Decreased Strength Comments Gait Comments Pt required use of UE support and close CGA with wheelchair behind patient in case of collapse of legs. Stair Climbing Evaluation Comments Stair Climbing Comments Not safe or applicable to patient. PT-OP-K Range of Motion Start: 05/28/20 18:12 Freq: Status: Active Protocol: Document 06/03/20 12:35 LRN (Rec: 06/03/20 17:34 LRN [id number]) Hip Goniometric Range of Motion Hip Right Active Testing Position Prone Extension 5 Left Active Testing Position Prone Extension 7 Right Passive Testing Position Sup & Prone Straight Leg Raise 75 Internal Rotation 45 External Rotation 30 Comments Hip ER/IR measurements in prone Left Passive Testing Position Sup & Prone Straight Leg Raise 75 Internal Rotation 55 External Rotation 30 Comments Hip ER/IR measurements in prone Ankle and Foot Goniometric Range of Motion Ankle and Foot Right Active Testing Position Sitting Dorsiflexion with Knee Flexed 5 Left Active Testing Position Sitting Dorsiflexion with Knee Flexed 4 PT-OP-M Strength Start: 05/28/20 18:12 Freq: Status: Active Protocol: Document 06/03/20 12:35 LRN (Rec: 06/03/20 17:34 LRN [id number]) Hip Strength Hip Manual Muscle Testing Right Flexion (L2) 3 Fair Extension (S1) 2+ Poor+ Abduction 2+ Poor+ Adduction 2+ Poor+ Left Flexion (L2) 3 Fair Extension (S1) 3- Fair- Abduction 3 Fair Adduction 3+ Fair+ Knee Strength Knee Manual Muscle Testing Right Comments Generally 5/5 with MMT break testing in 45 deg's knee flex Left Comments Generally 5/5 with MMT break testing in 45 deg's knee flex Ankle/Foot Strength Ankle and Foot Manual Muscle Testing Right Dorsiflexion (L4) 5 Normal Plantarflexion (S1) 5 Normal Inversion 2+ Poor+ Eversion (S1) 5 Normal Left Dorsiflexion (L4) 5 Normal Plantarflexion (S1) 5 Normal Inversion 5 Normal Eversion (S1) 3+ Fair+ PT-OP-Q Treatments Start: 05/28/20 18:12 Freq: Status: Active Protocol: Document 06/18/20 12:32 LRN (Rec: 06/18/20 14:16 LRN [id number]) Therapeutic Exercises Prone Exercises Hamsting curl Prone Exercise Name Hamstring Curl Side bilateral Reps/Minutes 4# 8x R; 5# 8x L Sitting Exercises Trunk SB Sitting Exercise Name R Trunk SB Side bilateral Resistance Lev 3 Reps/Minutes 10x 3 Trunk Ext Sitting Exercise Name Trunk Ext Equipment Used Blue strap Sport Cord Reps/Minutes 15x 2 Trunk rot Sitting Exercise Name Trunk rot Side bilateral Resistance Lev 3 Reps/Minutes 30x each Trunk flex Sitting Exercise Name Trunk Flex Resistance Lev 3 TB Reps/Minutes 15x 2 Scapular Retractions Sitting Exercise Name Scapular retractions Equipment Used Lev 3 Reps/Minutes 30x knee extension Sitting Exercise Name Knee Ext Side bilateral Equipment Used 5# Reps/Minutes 8x Gait Training Gait Activity Walking within Try[employer] walker lift Description LIKO lift used as walker w/2 person assist Device Used Tunii lift Level of Assistance 1 person behind with w/c and one in front monitoring LIKO lift progression Surface Level Distance/Duration 34 ft, rest, 64 ft Treatment Focus Gait endurance Comments Pt 50% WBing in standing, with 1/2 wieght in UE's. PT-OP-T Assessment and Plan Start: 05/28/20 18:12 Freq: Status: Active Protocol: Document 06/18/20 12:32 LRN (Rec: 06/18/20 14:16 LRN [id number]) Physical Therapy Assessment Goals Four Impairment Limited Gait mobility Short Term Goal (STG) Patient will walk 60 feet in / / bars without legs giving out with 1 rest. (06/11/20: Pt gait 36' with fatigue at end) STG Duration 06/28/20 (06/11/20: Progressing ) Residential Goal (LTG) Patient will walk 75-100 feet with FWW with 2 rests. LTG Duration 10/01/20 Three Impairment Decreased Standing Balance Short Term Goal (STG) Patient will improve balance to be able to balance independently and walk 6 steps without need of wheelchair behind her for safety. STG Duration 06/28/20 Residential Goal (LTG) Patient will improve balance to stand independently and walk to bathroom with FWW without need of wheelchair behind her for safety. LTG Duration 10/01/20 Two Impairment Decreased Endurance Short Term Goal (STG) Improve 5XSTS Residential Goal (LTG) Pt will be able to walk a block 150' with multiple rests with FWW and w/c behind her for safety. LTG Duration 10/01/20 One Impairment Lacks complete HEP Residential Goal (LTG) Pt will have a HEP for progression of strengthening for her to do with caregiver ( Aunt). LTG Duration 10/01/20 Progress Towards Goals Progress Towards Goals Slow Progress due to Activity Tolerance,Slow Progress - Other Progress Comments Slow progress due to limitations with Multiple Sclerosis. Assessment Summary Assessment Pt able to tolerate more walking if done first. Pt in 50% WBing in standing is able to walk 60+ ft. Further progressive LE strengthening & weight bearing is needed. Extra time needed for set up for walking and with all exercises due to manipulation of wheelchair. Physical Therapy Plan Frequency and Duration Frequency of Treatment 1x/Week Plan of Care Start Date 06/03/20 Plan of Care End Date 10/01/20 Next Visit Focus/Plan Next Note Type Treatment Note Next Visit Plan Progressive WBing Walking in [place], Trunk strengthening, hip strengthening (hip Ext, AB, Clamshell), gait endurance training, end with stretch to ankle DF, Quads & Hamstrings.
--- NOTE | 2020-06-25 14:18 | PT.OTN ---
Current Diagnoses Multiple sclerosis (06/25/20) Paraplegia, incomplete (06/25/20) Muscle weakness (generalized) (06/25/20) Physical Therapy Treatment Note PT-OP-A Visit Information Start: 05/28/20 18:12 Freq: Status: Active Protocol: Document 06/25/20 13:30 LRN (Rec: 06/25/20 14:17 LRN [id number]) Out-Patient Physical Therapy Visit Information Visit Information Visit Type Treatment Note Visit Start Time 13:31 Visit Stop Time 14:15 Total Visit Minutes 44 Visit Number 4 Evaluation Information Evaluation Date 06/03/20 Precautions Precautions Multiple Sclerosis, Paresthesia of both feet, HBP without diagnosis. PT-OP-B Current Condition Start: 05/28/20 18:12 Freq: Status: Active Protocol: Document 06/03/20 12:35 LRN (Rec: 06/03/20 14:23 LRN [id number]) Current Condition History of Current Condition Onset Date Mar 2020 Current Complaints Balance is not good, harder to walk History of Current Condition Getting harder to walk and exercise due to weakness of LE 's, possibly due to multiple sclerosis progression. Can only walk 55' with walker with wheelchair pushed behind her. She reports R foot drop, cold feet and legs, but can feel difference between hot/ cold. Prior Treatments and Tests Physical therapy ending 09/2019 . Treatment Goals Patient/Caregiver Goals Pt goal is to be able to walk farther without legs going out from under her. Be able to get out of bed and walk to bathroom and back independently without wheelchair behind and using a walker, and to be able to walk with a walker without someone behind with wheelchair. Prior Functional Status Baseline Function- ADL's Needs Assist Baseline Function- Mobility Needs Assist Baseline Function- Gait Ambs with FWW with caregiver behind her with a wheelchair. Current Functional Impairments (Reported) Functional Limitations- ADL's Dependent on Wheelchair for mobility. Functional Limitations- Mobility/Gait Able to take 3 steps before the legs give out. Tries to do daily walking 25' x 2 per gait practice with walker and wheelchair behind her in case legs give out. Functional Limitations- Recreation/ LE ex's every other day. Hobbies Opposite days she showers. Personal Factors Other Personal Factors That May Effect MS, paresthesia of both feet, Therapy/Recovery mostly wheelchair bound, father had recent stroke, so mother who was her caregiver is now caregiving to her father. Pt now is depending on her aunt to assist her with mobility and home exercises. PT-OP-C Subjective Start: 05/28/20 18:12 Freq: Status: Active Protocol: Document 06/25/20 13:30 LRN (Rec: 06/25/20 14:17 LRN [id number]) OP-PT Subjective Patient Comments Patient Comments Very tired after last session. Doesn't normally do ex's on days of therapy because too fatiguing. PT-OP-E Functional Tests Start: 06/03/20 12:34 Freq: Status: Active Protocol: Document 06/11/20 13:38 LRN (Rec: 06/11/20 14:19 LRN [id number]) Functional Tests Five Times Sit to Stand Test Score 22 secs Comments Used hands to stand within // bars. NORM: 60-69 yo 11.4 sec Other 18 June Test Name of Test 18 June Test Score 7x Comment Pt fatigued at end of test PT-OP-G Mobility & Gait Start: 06/03/20 12:34 Freq: Status: Active Protocol: Document 06/03/20 12:35 LRN (Rec: 06/03/20 17:34 LRN [id number]) OP Gait Assessment Gait Gait Assistance Required: 1 Person Assist Distance (Feet) 10 Assistive Devices Assistive Device Front Wheeled Walker Orthotic/Prosthetic Devices or Brace: No Gait Deviations General Gait Pattern Decreased Stride Length Factors Limiting Gait Function Factors Limiting Gait Function Decreased Activity Tolerance, Decreased Strength Comments Gait Comments Pt required use of UE support and close CGA with wheelchair behind patient in case of collapse of legs. Stair Climbing Evaluation Comments Stair Climbing Comments Not safe or applicable to patient. PT-OP-K Range of Motion Start: 05/28/20 18:12 Freq: Status: Active Protocol: Document 06/03/20 12:35 LRN (Rec: 06/03/20 17:34 LRN [id number]) Hip Goniometric Range of Motion Hip Right Active Testing Position Prone Extension 5 Left Active Testing Position Prone Extension 7 Right Passive Testing Position Sup & Prone Straight Leg Raise 75 Internal Rotation 45 External Rotation 30 Comments Hip ER/IR measurements in prone Left Passive Testing Position Sup & Prone Straight Leg Raise 75 Internal Rotation 55 External Rotation 30 Comments Hip ER/IR measurements in prone Ankle and Foot Goniometric Range of Motion Ankle and Foot Right Active Testing Position Sitting Dorsiflexion with Knee Flexed 5 Left Active Testing Position Sitting Dorsiflexion with Knee Flexed 4 PT-OP-M Strength Start: 05/28/20 18:12 Freq: Status: Active Protocol: Document 06/03/20 12:35 LRN (Rec: 06/03/20 17:34 LRN [id number]) Hip Strength Hip Manual Muscle Testing Right Flexion (L2) 3 Fair Extension (S1) 2+ Poor+ Abduction 2+ Poor+ Adduction 2+ Poor+ Left Flexion (L2) 3 Fair Extension (S1) 3- Fair- Abduction 3 Fair Adduction 3+ Fair+ Knee Strength Knee Manual Muscle Testing Right Comments Generally 5/5 with MMT break testing in 45 deg's knee flex Left Comments Generally 5/5 with MMT break testing in 45 deg's knee flex Ankle/Foot Strength Ankle and Foot Manual Muscle Testing Right Dorsiflexion (L4) 5 Normal Plantarflexion (S1) 5 Normal Inversion 2+ Poor+ Eversion (S1) 5 Normal Left Dorsiflexion (L4) 5 Normal Plantarflexion (S1) 5 Normal Inversion 5 Normal Eversion (S1) 3+ Fair+ PT-OP-Q Treatments Start: 05/28/20 18:12 Freq: Status: Active Protocol: Document 06/25/20 13:30 LRN (Rec: 06/25/20 14:17 LRN [id number]) Therapeutic Exercises Sitting Exercises Trunk SB Sitting Exercise Name R Trunk SB Side bilateral Resistance Blue strap Sport Cord Reps/Minutes 10x 3 Trunk Ext Sitting Exercise Name Trunk Ext Equipment Used Blue strap Sport Cord Reps/Minutes 15x 2 Trunk rot Sitting Exercise Name Trunk rot Side bilateral Resistance Blue strap Sport Cord Reps/Minutes 30x each Trunk flex Sitting Exercise Name Trunk Flex Resistance Blue strap Sport Cord Reps/Minutes 30x Scapular Retractions Sitting Exercise Name Scapular retractions Equipment Used Lev 3 Reps/Minutes 30x knee extension Sitting Exercise Name Knee Ext Side bilateral Equipment Used 5# Reps/Minutes 10x, rest, 8x Gait Training Gait Activity Walking within LIKO walker lift Description LIKO lift used as walker w/2 person assist Device Used [email or web address] lift Level of Assistance 1 person behind with w/c and one in front monitoring LIKO lift progression Surface Level Distance/Duration 20 ft, rest, 43 ft Treatment Focus Gait endurance Comments Pt 80% WBing in standing, with remainder weightbearing in UE's. PT-OP-T Assessment and Plan Start: 05/28/20 18:12 Freq: Status: Active Protocol: Document 06/25/20 13:30 LRN (Rec: 06/25/20 14:17 LRN [id number]) Physical Therapy Assessment Goals Four Impairment Limited Gait mobility Short Term Goal (STG) Patient will walk 60 feet in / / bars without legs giving out with 1 rest. (06/11/20: Pt gait 36' with fatigue at end) STG Duration 06/28/20 (06/11/20: Progressing ) Intermediate Goal (LTG) Patient will walk 75-100 feet with FWW with 2 rests. LTG Duration 10/01/20 Three Impairment Decreased Standing Balance Short Term Goal (STG) Patient will improve balance to be able to balance independently and walk 6 steps without need of wheelchair behind her for safety. STG Duration 06/28/20 Intermediate Goal (LTG) Patient will improve balance to stand independently and walk to bathroom with FWW without need of wheelchair behind her for safety. LTG Duration 10/01/20 Two Impairment Decreased Endurance Short Term Goal (STG) Improve 5XSTS Intermediate Goal (LTG) Pt will be able to walk a block 150' with multiple rests with FWW and w/c behind her for safety. LTG Duration 10/01/20 One Impairment Lacks complete HEP Intermediate Goal (LTG) Pt will have a HEP for progression of strengthening for her to do with caregiver ( Aunt). LTG Duration 10/01/20 Progress Towards Goals Progress Comments LE Endurance improving with pt able to do more LE ex after walking. Pt able to wgt bear more through legs today. Assessment Summary Assessment Pt able to walk with more weight through the legs using LIKO lift. Increased tolerance to LE strengthening after walking with pt able to do more LAQ reps. Physical Therapy Plan Frequency and Duration Frequency of Treatment 1x/Week Plan of Care Start Date 06/03/20 Plan of Care End Date 10/01/20 Next Visit Focus/Plan Next Note Type Treatment Note Next Visit Plan Progressive WBing Walking in [place], Trunk strengthening, hip strengthening (hip Ext, AB, Clamshell), gait endurance training, end with stretch to ankle DF, Quads & Hamstrings.
--- NOTE | 2020-07-02 13:45 | PT.OTN ---
Current Diagnoses Multiple sclerosis (07/02/20) Paraplegia, incomplete (07/02/20) Muscle weakness (generalized) (07/02/20) Physical Therapy Treatment Note PT-OP-A Visit Information Start: 05/28/20 18:12 Freq: Status: Active Protocol: Document 07/02/20 13:05 SP (Rec: 07/02/20 16:14 SP [id number]) Out-Patient Physical Therapy Visit Information Visit Information Visit Type Treatment Note Visit Start Time 13:05 Visit Stop Time 13:45 Total Visit Minutes 40 Visit Number 5 Number of ENVIRONMENTAL LAW PROFESSOR Visits 1 Evaluation Information Evaluation Date 06/03/20 Precautions Precautions Multiple Sclerosis, Paresthesia of both feet, HBP without diagnosis. PT-OP-B Current Condition Start: 05/28/20 18:12 Freq: Status: Active Protocol: Document 06/03/20 12:35 LRN (Rec: 06/03/20 14:23 LRN [id number]) Current Condition History of Current Condition Onset Date Mar 2020 Current Complaints Balance is not good, harder to walk History of Current Condition Getting harder to walk and exercise due to weakness of LE 's, possibly due to multiple sclerosis progression. Can only walk 55' with walker with wheelchair pushed behind her. She reports R foot drop, cold feet and legs, but can feel difference between hot/ cold. Prior Treatments and Tests Physical therapy ending 09/2019 . Treatment Goals Patient/Caregiver Goals Pt goal is to be able to walk farther without legs going out from under her. Be able to get out of bed and walk to bathroom and back independently without wheelchair behind and using a walker, and to be able to walk with a walker without someone behind with wheelchair. Prior Functional Status Baseline Function- ADL's Needs Assist Baseline Function- Mobility Needs Assist Baseline Function- Gait Ambs with FWW with caregiver behind her with a wheelchair. Current Functional Impairments (Reported) Functional Limitations- ADL's Dependent on Wheelchair for mobility. Functional Limitations- Mobility/Gait Able to take 3 steps before the legs give out. Tries to do daily walking 25' x 2 per gait practice with walker and wheelchair behind her in case legs give out. Functional Limitations- Recreation/ LE ex's every other day. Hobbies Opposite days she showers. Personal Factors Other Personal Factors That May Effect MS, paresthesia of both feet, Therapy/Recovery mostly wheelchair bound, father had recent stroke, so mother who was her caregiver is now caregiving to her father. Pt now is depending on her aunt to assist her with mobility and home exercises. PT-OP-C Subjective Start: 05/28/20 18:12 Freq: Status: Active Protocol: Document 07/02/20 13:05 SP (Rec: 07/02/20 16:14 SP [id number]) OP-PT Subjective Patient Comments Patient Comments Pt stated felt more tired post last tx. PT-OP-E Functional Tests Start: 06/03/20 12:34 Freq: Status: Active Protocol: Document 06/11/20 13:38 LRN (Rec: 06/11/20 14:19 LRN [id number]) Functional Tests Five Times Sit to Stand Test Score 22 secs Comments Used hands to stand within // bars. NORM: 60-69 yo 11.4 sec Other 18 June Test Name of Test 18 June Test Score 7x Comment Pt fatigued at end of test PT-OP-G Mobility & Gait Start: 06/03/20 12:34 Freq: Status: Active Protocol: Document 06/03/20 12:35 LRN (Rec: 06/03/20 17:34 LRN [id number]) OP Gait Assessment Gait Gait Assistance Required: 1 Person Assist Distance (Feet) 10 Assistive Devices Assistive Device Front Wheeled Walker Orthotic/Prosthetic Devices or Brace: No Gait Deviations General Gait Pattern Decreased Stride Length Factors Limiting Gait Function Factors Limiting Gait Function Decreased Activity Tolerance, Decreased Strength Comments Gait Comments Pt required use of UE support and close CGA with wheelchair behind patient in case of collapse of legs. Stair Climbing Evaluation Comments Stair Climbing Comments Not safe or applicable to patient. PT-OP-K Range of Motion Start: 05/28/20 18:12 Freq: Status: Active Protocol: Document 06/03/20 12:35 LRN (Rec: 06/03/20 17:34 LRN [id number]) Hip Goniometric Range of Motion Hip Right Active Testing Position Prone Extension 5 Left Active Testing Position Prone Extension 7 Right Passive Testing Position Sup & Prone Straight Leg Raise 75 Internal Rotation 45 External Rotation 30 Comments Hip ER/IR measurements in prone Left Passive Testing Position Sup & Prone Straight Leg Raise 75 Internal Rotation 55 External Rotation 30 Comments Hip ER/IR measurements in prone Ankle and Foot Goniometric Range of Motion Ankle and Foot Right Active Testing Position Sitting Dorsiflexion with Knee Flexed 5 Left Active Testing Position Sitting Dorsiflexion with Knee Flexed 4 PT-OP-M Strength Start: 05/28/20 18:12 Freq: Status: Active Protocol: Document 06/03/20 12:35 LRN (Rec: 06/03/20 17:34 LRN [id number]) Hip Strength Hip Manual Muscle Testing Right Flexion (L2) 3 Fair Extension (S1) 2+ Poor+ Abduction 2+ Poor+ Adduction 2+ Poor+ Left Flexion (L2) 3 Fair Extension (S1) 3- Fair- Abduction 3 Fair Adduction 3+ Fair+ Knee Strength Knee Manual Muscle Testing Right Comments Generally 5/5 with MMT break testing in 45 deg's knee flex Left Comments Generally 5/5 with MMT break testing in 45 deg's knee flex Ankle/Foot Strength Ankle and Foot Manual Muscle Testing Right Dorsiflexion (L4) 5 Normal Plantarflexion (S1) 5 Normal Inversion 2+ Poor+ Eversion (S1) 5 Normal Left Dorsiflexion (L4) 5 Normal Plantarflexion (S1) 5 Normal Inversion 5 Normal Eversion (S1) 3+ Fair+ PT-OP-Q Treatments Start: 05/28/20 18:12 Freq: Status: Active Protocol: Document 07/02/20 13:05 SP (Rec: 07/02/20 16:14 SP [id number]) Therapeutic Exercises Sitting Exercises Trunk Ext Sitting Exercise Name Trunk Ext Equipment Used Blue strap Sport Cord Reps/Minutes 15x 2 Trunk rot Sitting Exercise Name Trunk rot Side bilateral Resistance Blue strap Sport Cord Reps/Minutes 30x each Trunk flex Sitting Exercise Name Trunk Flex Resistance Blue strap Sport Cord Reps/Minutes 30x Scapular Retractions Sitting Exercise Name Scapular retractions Equipment Used Lev 3 Reps/Minutes 30x knee extension Sitting Exercise Name Knee Ext Side bilateral Equipment Used 5# Reps/Minutes 10x, rest, 8x Standing Exercises Sit to stand Standing Exercise Name during mobility in/out gait senior animal trainer (don/ doff belts) Resistance BUE assist Gait Training Gait Activity Walking within LIKO walker lift Description LIKO lift used as walker w/2 person assist Device Used LIKO lift Level of Assistance 1 person behind with w/c and one in front monitoring LIKO lift progression Surface Level Distance/Duration 61 ft x3, 25 ft Treatment Focus Gait endurance Comments Pt 80% WBing in standing, with remainder weightbearing in UE's. Manual Therapy Treatment Joint Mobilizations talocrual post glides Joint B Direction AP Grade II Body Position Sitting Reps/Duration 30 each Comments assist ROM into DF, compliment with DF stretching. Instructed self STMs grasp calf MWM w/ ankle pumps (LE over opposite knee) Manual Techniques PROM Type B ankle ROM, calf and HS stretch Body Position Sitting Reps/Duration 30 ' x3 Comments manual Self-Care/Home Management Treatment Education Patient Education Home Exercise Program Other Education Initiated self STMs: MWM calves during tx to assist ROM and decrease calf tightness- good performance/ time to tolerance. PT-OP-T Assessment and Plan Start: 05/28/20 18:12 Freq: Status: Active Protocol: Document 07/02/20 13:05 SP (Rec: 07/02/20 16:14 SP [id number]) Physical Therapy Assessment Goals Four Impairment Limited Gait mobility Short Term Goal (STG) Patient will walk 60 feet in / / bars without legs giving out with 1 rest. (06/11/20: Pt gait 36' with fatigue at end 07/02/20 61 ft w/ pivot before fatigue need sit) STG Duration 06/28/20 (06/11/20: Progressing ) Residential Goal (LTG) Patient will walk 75-100 feet with FWW with 2 rests. LTG Duration 10/01/20 Three Impairment Decreased Standing Balance Short Term Goal (STG) Patient will improve balance to be able to balance independently and walk 6 steps without need of wheelchair behind her for safety. STG Duration 06/28/20 Residential Goal (LTG) Patient will improve balance to stand independently and walk to bathroom with FWW without need of wheelchair behind her for safety. LTG Duration 10/01/20 Two Impairment Decreased Endurance Short Term Goal (STG) Improve 5XSTS Residential Goal (LTG) Pt will be able to walk a block 150' with multiple rests with FWW and w/c behind her for safety. LTG Duration 10/01/20 One Impairment Lacks complete HEP Track Car Operator Goal (LTG) Pt will have a HEP for progression of strengthening for her to do with caregiver ( Aunt). 07/02/20 HEP: resisted rows, shld ext, trunk rotation, back ext, LAQ. LTG Duration 10/01/20 Progress Towards Goals Progress Comments Pt was able to WB more through BLE today. Assessment Summary Assessment Pt improved in assisted walking endurance distance today using LIKO lift. Reviewed HEP seated today, initiated self calf STMs MWM. Physical Therapy Plan Frequency and Duration Frequency of Treatment 1x/Week Plan of Care Start Date 06/03/20 Plan of Care End Date 10/01/20 Therapeutic Interventions Therapeutic Interventions Aquatic Therapy,Gait Training, Home Exercise Program, Neuromuscular Re-education, Patient/Caregiver Education, Self-Care/Home Management, Therapeutic Activities, Therapeutic Exercises Next Visit Focus/Plan Next Note Type Treatment Note Next Visit Plan Progressive WBing Walking in [place]iko gait senior animal trainer, Trunk strengthening, hip strengthening (hip Ext, AB, Clamshell), gait endurance training, end with stretch to ankle DF, Quads & Hamstrings.
--- NOTE | 2020-07-09 13:42 | PT.OTN ---
Current Diagnoses Multiple sclerosis (07/09/20) Paraplegia, incomplete (07/09/20) Muscle weakness (generalized) (07/09/20) Physical Therapy Treatment Note PT-OP-A Visit Information Start: 05/28/20 18:12 Freq: Status: Active Protocol: Document 07/09/20 12:48 LRN (Rec: 07/09/20 13:41 LRN [id number]) Out-Patient Physical Therapy Visit Information Visit Information Visit Type Treatment Note Visit Start Time 12:48 Visit Stop Time 13:30 Total Visit Minutes 42 Visit Number 6 Evaluation Information Evaluation Date 06/03/20 Precautions Precautions Multiple Sclerosis, Paresthesia of both feet, HBP without diagnosis. PT-OP-B Current Condition Start: 05/28/20 18:12 Freq: Status: Active Protocol: Document 06/03/20 12:35 LRN (Rec: 06/03/20 14:23 LRN [id number]) Current Condition History of Current Condition Onset Date Mar 2020 Current Complaints Balance is not good, harder to walk History of Current Condition Getting harder to walk and exercise due to weakness of LE 's, possibly due to multiple sclerosis progression. Can only walk 55' with walker with wheelchair pushed behind her. She reports R foot drop, cold feet and legs, but can feel difference between hot/ cold. Prior Treatments and Tests Physical therapy ending 09/2019 . Treatment Goals Patient/Caregiver Goals Pt goal is to be able to walk farther without legs going out from under her. Be able to get out of bed and walk to bathroom and back independently without wheelchair behind and using a walker, and to be able to walk with a walker without someone behind with wheelchair. Prior Functional Status Baseline Function- ADL's Needs Assist Baseline Function- Mobility Needs Assist Baseline Function- Gait Ambs with FWW with caregiver behind her with a wheelchair. Current Functional Impairments (Reported) Functional Limitations- ADL's Dependent on Wheelchair for mobility. Functional Limitations- Mobility/Gait Able to take 3 steps before the legs give out. Tries to do daily walking 25' x 2 per gait practice with walker and wheelchair behind her in case legs give out. Functional Limitations- Recreation/ LE ex's every other day. Hobbies Opposite days she showers. Personal Factors Other Personal Factors That May Effect MS, paresthesia of both feet, Therapy/Recovery mostly wheelchair bound, father had recent stroke, so mother who was her caregiver is now caregiving to her father. Pt now is depending on her aunt to assist her with mobility and home exercises. PT-OP-C Subjective Start: 05/28/20 18:12 Freq: Status: Active Protocol: Document 07/09/20 12:48 LRN (Rec: 07/09/20 13:41 LRN [id number]) OP-PT Subjective Patient Comments Patient Comments ............. PT-OP-E Functional Tests Start: 06/03/20 12:34 Freq: Status: Active Protocol: Document 06/11/20 13:38 LRN (Rec: 06/11/20 14:19 LRN [id number]) Functional Tests Five Times Sit to Stand Test Score 22 secs Comments Used hands to stand within // bars. NORM: 60-69 yo 11.4 sec Other 18 June Test Name of Test 18 June Test Score 7x Comment Pt fatigued at end of test PT-OP-G Mobility & Gait Start: 06/03/20 12:34 Freq: Status: Active Protocol: Document 06/03/20 12:35 LRN (Rec: 06/03/20 17:34 LRN [id number]) OP Gait Assessment Gait Gait Assistance Required: 1 Person Assist Distance (Feet) 10 Assistive Devices Assistive Device Front Wheeled Walker Orthotic/Prosthetic Devices or Brace: No Gait Deviations General Gait Pattern Decreased Stride Length Factors Limiting Gait Function Factors Limiting Gait Function Decreased Activity Tolerance, Decreased Strength Comments Gait Comments Pt required use of UE support and close CGA with wheelchair behind patient in case of collapse of legs. Stair Climbing Evaluation Comments Stair Climbing Comments Not safe or applicable to patient. PT-OP-K Range of Motion Start: 05/28/20 18:12 Freq: Status: Active Protocol: Document 06/03/20 12:35 LRN (Rec: 06/03/20 17:34 LRN [id number]) Hip Goniometric Range of Motion Hip Right Active Testing Position Prone Extension 5 Left Active Testing Position Prone Extension 7 Right Passive Testing Position Sup & Prone Straight Leg Raise 75 Internal Rotation 45 External Rotation 30 Comments Hip ER/IR measurements in prone Left Passive Testing Position Sup & Prone Straight Leg Raise 75 Internal Rotation 55 External Rotation 30 Comments Hip ER/IR measurements in prone Ankle and Foot Goniometric Range of Motion Ankle and Foot Right Active Testing Position Sitting Dorsiflexion with Knee Flexed 5 Left Active Testing Position Sitting Dorsiflexion with Knee Flexed 4 PT-OP-M Strength Start: 05/28/20 18:12 Freq: Status: Active Protocol: Document 06/03/20 12:35 LRN (Rec: 06/03/20 17:34 LRN [id number]) Hip Strength Hip Manual Muscle Testing Right Flexion (L2) 3 Fair Extension (S1) 2+ Poor+ Abduction 2+ Poor+ Adduction 2+ Poor+ Left Flexion (L2) 3 Fair Extension (S1) 3- Fair- Abduction 3 Fair Adduction 3+ Fair+ Knee Strength Knee Manual Muscle Testing Right Comments Generally 5/5 with MMT break testing in 45 deg's knee flex Left Comments Generally 5/5 with MMT break testing in 45 deg's knee flex Ankle/Foot Strength Ankle and Foot Manual Muscle Testing Right Dorsiflexion (L4) 5 Normal Plantarflexion (S1) 5 Normal Inversion 2+ Poor+ Eversion (S1) 5 Normal Left Dorsiflexion (L4) 5 Normal Plantarflexion (S1) 5 Normal Inversion 5 Normal Eversion (S1) 3+ Fair+ PT-OP-Q Treatments Start: 05/28/20 18:12 Freq: Status: Active Protocol: Document 07/09/20 12:48 LRN (Rec: 07/09/20 13:41 LRN [id number]) Therapeutic Exercises Sitting Exercises Trunk SB Sitting Exercise Name R Trunk SB Side bilateral Resistance Blue strap Sport Cord Reps/Minutes 10x 3 Trunk Ext Sitting Exercise Name Trunk Ext Equipment Used Blue strap Sport Cord Reps/Minutes 15x 2 Trunk rot Sitting Exercise Name Trunk rot Side bilateral Resistance Blue strap Sport Cord Reps/Minutes 30x each Trunk flex Sitting Exercise Name Trunk Flex Resistance Blue strap Sport Cord Reps/Minutes 30x Gait Training Gait Activity Walking within LIKO walker lift Description LIKO lift used as walker w/2 person assist Device Used LIKO lift with greater WBing in LE's Level of Assistance 1 person behind with w/c and one in front monitoring LIKO lift progression Surface Level Distance/Duration 57 ft & 15 ft Treatment Focus Gait endurance Comments Pt 80% and 100% WBing in standing, with remainder weightbearing in UE's. Manual Therapy Treatment Joint Mobilizations talocrual post glides Joint Bartolo Talocrural jt Direction AP Grade II Body Position Sitting Reps/Duration 30 each Comments assist ROM into DF, compliment with DF stretching. PT-OP-T Assessment and Plan Start: 05/28/20 18:12 Freq: Status: Active Protocol: Document 07/09/20 12:48 LRN (Rec: 07/09/20 13:41 LRN [id number]) Physical Therapy Assessment Goals Four Impairment Limited Gait mobility Short Term Goal (STG) Patient will walk 60 feet in / / bars without legs giving out with 1 rest. (06/11/20: Pt gait 36' with fatigue at end 07/02/20 61 ft w/pivot before fatigue need sit) STG Duration 06/28/20 (06/11/20: Progressing ) Assisted Goal (LTG) Patient will walk 75-100 feet with FWW with 2 rests. LTG Duration 10/01/20 Three Impairment Decreased Standing Balance Short Term Goal (STG) Patient will improve balance to be able to balance independently and walk 6 steps without need of wheelchair behind her for safety. STG Duration 06/28/20 Case Mgr Goal (LTG) Patient will improve balance to stand independently and walk to bathroom with FWW without need of wheelchair behind her for safety. LTG Duration 10/01/20 Two Impairment Decreased Endurance Short Term Goal (STG) Improve 5XSTS Assisted Goal (LTG) Pt will be able to walk a block 150' with multiple rests with FWW and w/c behind her for safety. LTG Duration 10/01/20 One Impairment Lacks complete HEP Case Mgr Goal (LTG) Pt will have a HEP for progression of strengthening for her to do with caregiver ( Aunt). 07/02/20 HEP: resisted rows, shld ext, trunk rotation, back ext, LAQ. LTG Duration 10/01/20 Progress Towards Goals Progress Comments Pt able to WB more on legs for very short distance. Assessment Summary Assessment Pt endurance is less today due to overheating yesterday in the sun. She was able to tolerate almost 100% through LE's for 15' of gait in [employer] gait diabetes trainer. Physical Therapy Plan Frequency and Duration Frequency of Treatment 1x/Week Plan of Care Start Date 06/03/20 Plan of Care End Date 10/01/20 Next Visit Focus/Plan Next Note Type Treatment Note Next Visit Plan Check goal #4, distance pt able to walk in parallel bars. Increase WBing in LIKO, w/ walking for 1st length near 100% LE WBing, then 80% LE WBing for rest of walking f/b trial of standing hip strengthening, Trunk strengthening, gait endurance. If time permits end with stretch to ankle DF, Quads & Hamstrings and hip strengthening (hip Ext, AB, Clamshell).
--- NOTE | 2020-07-16 13:46 | PT.OTN ---
Current Diagnoses Multiple sclerosis (07/16/20) Paraplegia, incomplete (07/16/20) Muscle weakness (generalized) (07/16/20) Physical Therapy Treatment Note PT-OP-A Visit Information Start: 05/28/20 18:12 Freq: Status: Active Protocol: Document 07/16/20 13:02 SP (Rec: 07/16/20 15:50 SP [id number]) Out-Patient Physical Therapy Visit Information Visit Information Visit Type Treatment Note Visit Start Time 13:02 Visit Stop Time 13:46 Total Visit Minutes 44 Visit Number 7 Number of ASSET ACCOUNTANT Visits 1 Evaluation Information Evaluation Date 06/03/20 Precautions Precautions Multiple Sclerosis, Paresthesia of both feet, HBP without diagnosis. PT-OP-B Current Condition Start: 05/28/20 18:12 Freq: Status: Active Protocol: Document 06/03/20 12:35 LRN (Rec: 06/03/20 14:23 LRN [id number]) Current Condition History of Current Condition Onset Date Mar 2020 Current Complaints Balance is not good, harder to walk History of Current Condition Getting harder to walk and exercise due to weakness of LE 's, possibly due to multiple sclerosis progression. Can only walk 55' with walker with wheelchair pushed behind her. She reports R foot drop, cold feet and legs, but can feel difference between hot/ cold. Prior Treatments and Tests Physical therapy ending 09/2019 . Treatment Goals Patient/Caregiver Goals Pt goal is to be able to walk farther without legs going out from under her. Be able to get out of bed and walk to bathroom and back independently without wheelchair behind and using a walker, and to be able to walk with a walker without someone behind with wheelchair. Prior Functional Status Baseline Function- ADL's Needs Assist Baseline Function- Mobility Needs Assist Baseline Function- Gait Ambs with FWW with caregiver behind her with a wheelchair. Current Functional Impairments (Reported) Functional Limitations- ADL's Dependent on Wheelchair for mobility. Functional Limitations- Mobility/Gait Able to take 3 steps before the legs give out. Tries to do daily walking 25' x 2 per gait practice with walker and wheelchair behind her in case legs give out. Functional Limitations- Recreation/ LE ex's every other day. Hobbies Opposite days she showers. Personal Factors Other Personal Factors That May Effect MS, paresthesia of both feet, Therapy/Recovery mostly wheelchair bound, father had recent stroke, so mother who was her caregiver is now caregiving to her father. Pt now is depending on her aunt to assist her with mobility and home exercises. PT-OP-C Subjective Start: 05/28/20 18:12 Freq: Status: Active Protocol: Document 07/16/20 13:02 SP (Rec: 07/16/20 15:50 SP [id number]) OP-PT Subjective Patient Comments Patient Comments Pt stated feet little cold today and am little tired. PT-OP-E Functional Tests Start: 06/03/20 12:34 Freq: Status: Active Protocol: Document 06/11/20 13:38 LRN (Rec: 06/11/20 14:19 LRN [id number]) Functional Tests Five Times Sit to Stand Test Score 22 secs Comments Used hands to stand within // bars. NORM: 60-69 yo 11.4 sec Other 18 June Test Name of Test 18 June Test Score 7x Comment Pt fatigued at end of test PT-OP-G Mobility & Gait Start: 06/03/20 12:34 Freq: Status: Active Protocol: Document 06/03/20 12:35 LRN (Rec: 06/03/20 17:34 LRN [id number]) OP Gait Assessment Gait Gait Assistance Required: 1 Person Assist Distance (Feet) 10 Assistive Devices Assistive Device Front Wheeled Walker Orthotic/Prosthetic Devices or Brace: No Gait Deviations General Gait Pattern Decreased Stride Length Factors Limiting Gait Function Factors Limiting Gait Function Decreased Activity Tolerance, Decreased Strength Comments Gait Comments Pt required use of UE support and close CGA with wheelchair behind patient in case of collapse of legs. Stair Climbing Evaluation Comments Stair Climbing Comments Not safe or applicable to patient. PT-OP-K Range of Motion Start: 05/28/20 18:12 Freq: Status: Active Protocol: Document 06/03/20 12:35 LRN (Rec: 06/03/20 17:34 LRN [id number]) Hip Goniometric Range of Motion Hip Right Active Testing Position Prone Extension 5 Left Active Testing Position Prone Extension 7 Right Passive Testing Position Sup & Prone Straight Leg Raise 75 Internal Rotation 45 External Rotation 30 Comments Hip ER/IR measurements in prone Left Passive Testing Position Sup & Prone Straight Leg Raise 75 Internal Rotation 55 External Rotation 30 Comments Hip ER/IR measurements in prone Ankle and Foot Goniometric Range of Motion Ankle and Foot Right Active Testing Position Sitting Dorsiflexion with Knee Flexed 5 Left Active Testing Position Sitting Dorsiflexion with Knee Flexed 4 PT-OP-M Strength Start: 05/28/20 18:12 Freq: Status: Active Protocol: Document 06/03/20 12:35 LRN (Rec: 06/03/20 17:34 LRN [id number]) Hip Strength Hip Manual Muscle Testing Right Flexion (L2) 3 Fair Extension (S1) 2+ Poor+ Abduction 2+ Poor+ Adduction 2+ Poor+ Left Flexion (L2) 3 Fair Extension (S1) 3- Fair- Abduction 3 Fair Adduction 3+ Fair+ Knee Strength Knee Manual Muscle Testing Right Comments Generally 5/5 with MMT break testing in 45 deg's knee flex Left Comments Generally 5/5 with MMT break testing in 45 deg's knee flex Ankle/Foot Strength Ankle and Foot Manual Muscle Testing Right Dorsiflexion (L4) 5 Normal Plantarflexion (S1) 5 Normal Inversion 2+ Poor+ Eversion (S1) 5 Normal Left Dorsiflexion (L4) 5 Normal Plantarflexion (S1) 5 Normal Inversion 5 Normal Eversion (S1) 3+ Fair+ PT-OP-Q Treatments Start: 05/28/20 18:12 Freq: Status: Active Protocol: Document 07/16/20 13:02 SP (Rec: 07/16/20 15:50 SP [id number]) Therapeutic Exercises Supine Exercises HS stretch Supine Exercise Name manual Side bilateral Reps/Minutes 30 x2 Prone Exercises quad stretch Prone Exercise Name manual knee flexion with small lift into hip ext stretch Side bilateral Reps/Minutes 30 x2 Sitting Exercises Trunk SB Sitting Exercise Name R Trunk SB Side bilateral Resistance Blue strap Sport Cord Reps/Minutes x30 Trunk Ext Sitting Exercise Name Trunk Ext Equipment Used Blue strap Sport Cord Reps/Minutes x30 Trunk rot Sitting Exercise Name Trunk rot Side bilateral Resistance green TB Reps/Minutes 30x each Trunk flex Sitting Exercise Name Trunk Flex Resistance Blue strap Sport Cord Reps/Minutes 30x Gait Training Gait Activity Walking within LIKO walker lift Description LIKO lift used as walker w/2 person assist Device Used LIKO lift with greater WBing in LE's Level of Assistance 1 person behind with w/c and one in front monitoring LIKO lift progression Surface Level Distance/Duration 18ft, 37 ft, 23 ft, 27 ft Treatment Focus Gait endurance Comments Pt 95% WBing in standing, with remainder weightbearing in UE's. Manual Therapy Treatment Joint Mobilizations talocrual post glides Joint Bartolo Talocrural jt Direction AP Grade II Body Position Sitting Reps/Duration 30 each Comments assist ROM into DF, compliment with DF stretching. PT-OP-T Assessment and Plan Start: 05/28/20 18:12 Freq: Status: Active Protocol: Document 07/16/20 13:02 SP (Rec: 07/16/20 15:50 SP [id number]) Physical Therapy Assessment Goals Four Impairment Limited Gait mobility Short Term Goal (STG) Patient will walk 60 feet in / / bars without legs giving out with 1 rest. (06/11/20: Pt gait 36' with fatigue at end 07/02/20 61 ft w/pivot before fatigue need sit using gait technology trainer 80% WB) STG Duration 06/28/20 (06/11/20: Progressing ) Custodial Goal (LTG) Patient will walk 75-100 feet with FWW with 2 rests. LTG Duration 10/01/20 Three Impairment Decreased Standing Balance Short Term Goal (STG) Patient will improve balance to be able to balance independently and walk 6 steps without need of wheelchair behind her for safety. STG Duration 06/28/20 Custodial Goal (LTG) Patient will improve balance to stand independently and walk to bathroom with FWW without need of wheelchair behind her for safety. LTG Duration 10/01/20 Two Impairment Decreased Endurance Short Term Goal (STG) Improve 5XSTS Custodial Goal (LTG) Pt will be able to walk a block 150' with multiple rests with FWW and w/c behind her for safety. LTG Duration 10/01/20 One Impairment Lacks complete HEP Custodial Goal (LTG) Pt will have a HEP for progression of strengthening for her to do with caregiver ( Aunt). 07/02/20 HEP: resisted rows, shld ext, trunk rotation, back ext, LAQ. LTG Duration 10/01/20 Progress Towards Goals Progress Comments Pt able to WB 95% through BLE for short distances, see details in gait. Assessment Summary Assessment Pt endurance is less today today w/ increase BLE WB 95% using [employer] gait technology trainer. up to 37 ft. Physical Therapy Plan Frequency and Duration Frequency of Treatment 1x/Week Plan of Care Start Date 06/03/20 Plan of Care End Date 10/01/20 Therapeutic Interventions Therapeutic Interventions Aquatic Therapy,Gait Training, Home Exercise Program, Neuromuscular Re-education, Patient/Caregiver Education, Self-Care/Home Management, Therapeutic Activities, Therapeutic Exercises Next Visit Focus/Plan Next Note Type Treatment Note Next Visit Plan Next tx: Check goal #4, assess distance pt able to walk in parallel bars first. Increase WBing in LIKO, w/walking for 1st length near 100% LE WBing, then 80% LE WBing for rest of walking f/b trial of standing hip strengthening, Trunk strengthening, gait endurance. If time permits end with stretch to ankle DF, Quads & Hamstrings and hip strengthening (hip Ext, AB, Clamshell).
--- NOTE | 2020-07-22 09:46 | PT.OTN ---
Current Diagnoses Multiple sclerosis (07/22/20) Paraplegia, incomplete (07/22/20) Muscle weakness (generalized) (07/22/20) Physical Therapy Treatment Note PT-OP-A Visit Information Start: 05/28/20 18:12 Freq: Status: Active Protocol: Document 07/22/20 08:55 SP (Rec: 07/22/20 16:43 SP [id number]) Out-Patient Physical Therapy Visit Information Visit Information Visit Type Treatment Note Visit Start Time 08:55 Visit Stop Time 09:46 Total Visit Minutes 51 Visit Number 8 Number of CILNICAL SCIENTIST Visits 2 Evaluation Information Evaluation Date 06/03/20 Precautions Precautions Multiple Sclerosis, Paresthesia of both feet, HBP without diagnosis. PT-OP-B Current Condition Start: 05/28/20 18:12 Freq: Status: Active Protocol: Document 06/03/20 12:35 LRN (Rec: 06/03/20 14:23 LRN [id number]) Current Condition History of Current Condition Onset Date Mar 2020 Current Complaints Balance is not good, harder to walk History of Current Condition Getting harder to walk and exercise due to weakness of LE 's, possibly due to multiple sclerosis progression. Can only walk 55' with walker with wheelchair pushed behind her. She reports R foot drop, cold feet and legs, but can feel difference between hot/ cold. Prior Treatments and Tests Physical therapy ending 09/2019 . Treatment Goals Patient/Caregiver Goals Pt goal is to be able to walk farther without legs going out from under her. Be able to get out of bed and walk to bathroom and back independently without wheelchair behind and using a walker, and to be able to walk with a walker without someone behind with wheelchair. Prior Functional Status Baseline Function- ADL's Needs Assist Baseline Function- Mobility Needs Assist Baseline Function- Gait Ambs with FWW with caregiver behind her with a wheelchair. Current Functional Impairments (Reported) Functional Limitations- ADL's Dependent on Wheelchair for mobility. Functional Limitations- Mobility/Gait Able to take 3 steps before the legs give out. Tries to do daily walking 25' x 2 per gait practice with walker and wheelchair behind her in case legs give out. Functional Limitations- Recreation/ LE ex's every other day. Hobbies Opposite days she showers. Personal Factors Other Personal Factors That May Effect MS, paresthesia of both feet, Therapy/Recovery mostly wheelchair bound, father had recent stroke, so mother who was her caregiver is now caregiving to her father. Pt now is depending on her aunt to assist her with mobility and home exercises. PT-OP-C Subjective Start: 05/28/20 18:12 Freq: Status: Active Protocol: Document 07/22/20 08:55 SP (Rec: 07/22/20 16:43 SP [id number]) OP-PT Subjective Patient Comments Patient Comments I feel pretty good today, earlier than used to coming. PT-OP-E Functional Tests Start: 06/03/20 12:34 Freq: Status: Active Protocol: Document 06/11/20 13:38 LRN (Rec: 06/11/20 14:19 LRN [id number]) Functional Tests Five Times Sit to Stand Test Score 22 secs Comments Used hands to stand within // bars. NORM: 60-69 yo 11.4 sec Other 18 June Test Name of Test 18 June Test Score 7x Comment Pt fatigued at end of test PT-OP-G Mobility & Gait Start: 06/03/20 12:34 Freq: Status: Active Protocol: Document 06/03/20 12:35 LRN (Rec: 06/03/20 17:34 LRN [id number]) OP Gait Assessment Gait Gait Assistance Required: 1 Person Assist Distance (Feet) 10 Assistive Devices Assistive Device Front Wheeled Walker Orthotic/Prosthetic Devices or Brace: No Gait Deviations General Gait Pattern Decreased Stride Length Factors Limiting Gait Function Factors Limiting Gait Function Decreased Activity Tolerance, Decreased Strength Comments Gait Comments Pt required use of UE support and close CGA with wheelchair behind patient in case of collapse of legs. Stair Climbing Evaluation Comments Stair Climbing Comments Not safe or applicable to patient. PT-OP-K Range of Motion Start: 05/28/20 18:12 Freq: Status: Active Protocol: Document 06/03/20 12:35 LRN (Rec: 06/03/20 17:34 LRN [id number]) Hip Goniometric Range of Motion Hip Right Active Testing Position Prone Extension 5 Left Active Testing Position Prone Extension 7 Right Passive Testing Position Sup & Prone Straight Leg Raise 75 Internal Rotation 45 External Rotation 30 Comments Hip ER/IR measurements in prone Left Passive Testing Position Sup & Prone Straight Leg Raise 75 Internal Rotation 55 External Rotation 30 Comments Hip ER/IR measurements in prone Ankle and Foot Goniometric Range of Motion Ankle and Foot Right Active Testing Position Sitting Dorsiflexion with Knee Flexed 5 Left Active Testing Position Sitting Dorsiflexion with Knee Flexed 4 PT-OP-M Strength Start: 05/28/20 18:12 Freq: Status: Active Protocol: Document 06/03/20 12:35 LRN (Rec: 06/03/20 17:34 LRN [id number]) Hip Strength Hip Manual Muscle Testing Right Flexion (L2) 3 Fair Extension (S1) 2+ Poor+ Abduction 2+ Poor+ Adduction 2+ Poor+ Left Flexion (L2) 3 Fair Extension (S1) 3- Fair- Abduction 3 Fair Adduction 3+ Fair+ Knee Strength Knee Manual Muscle Testing Right Comments Generally 5/5 with MMT break testing in 45 deg's knee flex Left Comments Generally 5/5 with MMT break testing in 45 deg's knee flex Ankle/Foot Strength Ankle and Foot Manual Muscle Testing Right Dorsiflexion (L4) 5 Normal Plantarflexion (S1) 5 Normal Inversion 2+ Poor+ Eversion (S1) 5 Normal Left Dorsiflexion (L4) 5 Normal Plantarflexion (S1) 5 Normal Inversion 5 Normal Eversion (S1) 3+ Fair+ PT-OP-Q Treatments Start: 05/28/20 18:12 Freq: Status: Active Protocol: Document 07/22/20 08:55 SP (Rec: 07/22/20 16:43 SP [id number]) Therapeutic Exercises Sitting Exercises resisted row & extension Sitting Exercise Name review row, added shld ext FOR Side bilateral Resistance TB #3 Reps/Minutes x30 each Comments cued chest lift, tall posture w/ CS neutral Trunk SB Sitting Exercise Name R Trunk SB Side bilateral Resistance Blue strap Sport Cord Reps/Minutes x30 Trunk Ext Sitting Exercise Name Trunk Ext Equipment Used Blue strap Sport Cord Reps/Minutes x30 Trunk rot Sitting Exercise Name Trunk rot Side bilateral Resistance green TB Reps/Minutes 30x each Ankle DF Sitting Exercise Name Ankle DF Side bilateral Resistance Tb #2 Reps/Minutes x30 Comments 10 x 3 Trunk flex Sitting Exercise Name Trunk Flex Resistance Blue strap Sport Cord Reps/Minutes 30x Ankle EV Sitting Exercise Name Ankle EV Side bilateral Resistance TB #2 Reps/Minutes x30 Comments Weak on L ankle Hamstring Curl Sitting Exercise Name Hamstring Curl separetly Side bilateral Reps/Minutes X15 each Standing Exercises Sit to stand Resistance BUE assist on w/c arm rests Reps/Minutes 8 reps in 30 sec Comments CGA Gait Training Gait Activity Walking in // Bars Description Walking Forward (1 length of bars = 12') Device Used // bars (36 hgt) with W/C behind her Level of Assistance Indep Surface Level Distance/Duration 3.5, 2 laps forward/backward walking Treatment Focus Improve walking distance tolerance Comments seated rest at end 1. 3.5 lap, 10%, 2. 20% BUE WB on //bar ( trail w/ w/c). Manual Therapy Treatment Manual Techniques PROM Type B ankle ROM, calf and HS stretch Body Position Sitting Reps/Duration 30 ' x3 Comments manual PT-OP-T Assessment and Plan Start: 05/28/20 18:12 Freq: Status: Active Protocol: Document 07/22/20 08:55 SP (Rec: 07/22/20 16:43 SP [id number]) Physical Therapy Assessment Goals Four Impairment Limited Gait mobility Short Term Goal (STG) Patient will walk 60 feet in / / bars without legs giving out with 1 rest. (06/11/20: Pt gait 36' with fatigue at end 07/02/20 61 ft w/pivot before fatigue need sit using gait link trainer 80% WB; 07/22/20: //bar 10 ft distance forward/back stepping using approx 10% UE WB on //bar assist x3.5 laps 100% WB w/ mirror self spacial awarenessc CGA) STG Duration 06/28/20 (06/11/20: Progressing ) Secretary Office Clerk Goal (LTG) Patient will walk 75-100 feet with FWW with 2 rests. LTG Duration 10/01/20 Three Impairment Decreased Standing Balance Short Term Goal (STG) Patient will improve balance to be able to balance independently and walk 6 steps without need of wheelchair behind her for safety. STG Duration 06/28/20 Fdc Goal (LTG) Patient will improve balance to stand independently and walk to bathroom with FWW without need of wheelchair behind her for safety. LTG Duration 10/01/20 Two Impairment Decreased Endurance Short Term Goal (STG) Improve 5XSTS 07/22/20: progressing 8 sit<> stands using BUE on w/c arm rests w/contact in standing for safety, provided CGA. Fdc Goal (LTG) Pt will be able to walk a block 150' with multiple rests with FWW and w/c behind her for safety. LTG Duration 10/01/20 One Impairment Lacks complete HEP Secretary Office Clerk Goal (LTG) Pt will have a HEP for progression of strengthening for her to do with caregiver ( Aunt). 07/22/20 HEP: resisted rows, shld ext, TB trunk rotation and flexion, back ext, LAQ, HS curl TB, sit<> stands with UE support 8 reps 30 sec today. LTG Duration 10/01/20 Assessment Summary Assessment Pt improved in walking endurance forward/backward stepping in //bars w/ 10>20 % UE WB assist on //bars w/ w/c follow 3.5 laps then 2 laps without seated rest. Seated HEP review, able add #2 TB w/ ankle DF, EV today. Initiated sit<> stands to HEP at home. Physical Therapy Plan Frequency and Duration Frequency of Treatment 1x/Week Plan of Care Start Date 06/03/20 Plan of Care End Date 10/01/20 Therapeutic Interventions Therapeutic Interventions Aquatic Therapy,Gait Training, Home Exercise Program, Neuromuscular Re-education, Patient/Caregiver Education, Self-Care/Home Management, Therapeutic Activities, Therapeutic Exercises Next Visit Focus/Plan Next Note Type Treatment Note Next Visit Plan Next tx: Increase WBing in LIKO, w/walking for 1st length near 100% LE WBing, then 90% LE WBing for rest of walking f /b trial of standing hip strengthening, Trunk strengthening, gait endurance. Continue if time permits end with stretch to ankle DF, Quads & Hamstrings and hip strengthening (hip Ext, AB, Clamshell).
--- NOTE | 2020-07-29 13:45 | PT.OTN ---
Current Diagnoses Multiple sclerosis (07/29/20) Paraplegia, incomplete (07/29/20) Muscle weakness (generalized) (07/29/20) Physical Therapy Treatment Note PT-OP-A Visit Information Start: 05/28/20 18:12 Freq: Status: Active Protocol: Document 07/29/20 12:47 LRN (Rec: 07/29/20 13:44 LRN [id number]) Out-Patient Physical Therapy Visit Information Visit Information Visit Type Treatment Note Visit Start Time 12:48 Visit Stop Time 13:32 Total Visit Minutes 44 Visit Number 9 Evaluation Information Evaluation Date 06/03/20 Precautions Precautions Multiple Sclerosis, Paresthesia of both feet, HBP without diagnosis. PT-OP-B Current Condition Start: 05/28/20 18:12 Freq: Status: Active Protocol: Document 06/03/20 12:35 LRN (Rec: 06/03/20 14:23 LRN [id number]) Current Condition History of Current Condition Onset Date Mar 2020 Current Complaints Balance is not good, harder to walk History of Current Condition Getting harder to walk and exercise due to weakness of LE 's, possibly due to multiple sclerosis progression. Can only walk 55' with walker with wheelchair pushed behind her. She reports R foot drop, cold feet and legs, but can feel difference between hot/ cold. Prior Treatments and Tests Physical therapy ending 09/2019 . Treatment Goals Patient/Caregiver Goals Pt goal is to be able to walk farther without legs going out from under her. Be able to get out of bed and walk to bathroom and back independently without wheelchair behind and using a walker, and to be able to walk with a walker without someone behind with wheelchair. Prior Functional Status Baseline Function- ADL's Needs Assist Baseline Function- Mobility Needs Assist Baseline Function- Gait Ambs with FWW with caregiver behind her with a wheelchair. Current Functional Impairments (Reported) Functional Limitations- ADL's Dependent on Wheelchair for mobility. Functional Limitations- Mobility/Gait Able to take 3 steps before the legs give out. Tries to do daily walking 25' x 2 per gait practice with walker and wheelchair behind her in case legs give out. Functional Limitations- Recreation/ LE ex's every other day. Hobbies Opposite days she showers. Personal Factors Other Personal Factors That May Effect MS, paresthesia of both feet, Therapy/Recovery mostly wheelchair bound, father had recent stroke, so mother who was her caregiver is now caregiving to her father. Pt now is depending on her aunt to assist her with mobility and home exercises. PT-OP-C Subjective Start: 05/28/20 18:12 Freq: Status: Active Protocol: Document 07/29/20 12:47 LRN (Rec: 07/29/20 13:44 LRN [id number]) OP-PT Subjective Patient Comments Patient Comments States she had her throat surgery on 07/26/20 and she is still swollen. States her surgeon cleared her for her home walking and exercises. PT-OP-E Functional Tests Start: 06/03/20 12:34 Freq: Status: Active Protocol: Document 06/11/20 13:38 LRN (Rec: 06/11/20 14:19 LRN [id number]) Functional Tests Five Times Sit to Stand Test Score 22 secs Comments Used hands to stand within // bars. NORM: 60-69 yo 11.4 sec Other 18 June Test Name of Test 18 June Test Score 7x Comment Pt fatigued at end of test PT-OP-G Mobility & Gait Start: 06/03/20 12:34 Freq: Status: Active Protocol: Document 06/03/20 12:35 LRN (Rec: 06/03/20 17:34 LRN [id number]) OP Gait Assessment Gait Gait Assistance Required: 1 Person Assist Distance (Feet) 10 Assistive Devices Assistive Device Front Wheeled Walker Orthotic/Prosthetic Devices or Brace: No Gait Deviations General Gait Pattern Decreased Stride Length Factors Limiting Gait Function Factors Limiting Gait Function Decreased Activity Tolerance, Decreased Strength Comments Gait Comments Pt required use of UE support and close CGA with wheelchair behind patient in case of collapse of legs. Stair Climbing Evaluation Comments Stair Climbing Comments Not safe or applicable to patient. PT-OP-K Range of Motion Start: 05/28/20 18:12 Freq: Status: Active Protocol: Document 06/03/20 12:35 LRN (Rec: 06/03/20 17:34 LRN [id number]) Hip Goniometric Range of Motion Hip Right Active Testing Position Prone Extension 5 Left Active Testing Position Prone Extension 7 Right Passive Testing Position Sup & Prone Straight Leg Raise 75 Internal Rotation 45 External Rotation 30 Comments Hip ER/IR measurements in prone Left Passive Testing Position Sup & Prone Straight Leg Raise 75 Internal Rotation 55 External Rotation 30 Comments Hip ER/IR measurements in prone Ankle and Foot Goniometric Range of Motion Ankle and Foot Right Active Testing Position Sitting Dorsiflexion with Knee Flexed 5 Left Active Testing Position Sitting Dorsiflexion with Knee Flexed 4 PT-OP-M Strength Start: 05/28/20 18:12 Freq: Status: Active Protocol: Document 06/03/20 12:35 LRN (Rec: 06/03/20 17:34 LRN [id number]) Hip Strength Hip Manual Muscle Testing Right Flexion (L2) 3 Fair Extension (S1) 2+ Poor+ Abduction 2+ Poor+ Adduction 2+ Poor+ Left Flexion (L2) 3 Fair Extension (S1) 3- Fair- Abduction 3 Fair Adduction 3+ Fair+ Knee Strength Knee Manual Muscle Testing Right Comments Generally 5/5 with MMT break testing in 45 deg's knee flex Left Comments Generally 5/5 with MMT break testing in 45 deg's knee flex Ankle/Foot Strength Ankle and Foot Manual Muscle Testing Right Dorsiflexion (L4) 5 Normal Plantarflexion (S1) 5 Normal Inversion 2+ Poor+ Eversion (S1) 5 Normal Left Dorsiflexion (L4) 5 Normal Plantarflexion (S1) 5 Normal Inversion 5 Normal Eversion (S1) 3+ Fair+ PT-OP-Q Treatments Start: 05/28/20 18:12 Freq: Status: Active Protocol: Document 07/29/20 12:47 LRN (Rec: 07/29/20 13:44 LRN [id number]) Therapeutic Exercises Sitting Exercises Sit to Stand Sitting Exercise Name Sit to Stand from W/C Reps/Minutes 8X Comments Pt LE's shaky at 7 reps and very shaky at 8 reps. Trunk SB Sitting Exercise Name R Trunk SB Side bilateral Resistance Green thick strap Sport Cord Reps/Minutes x30 Comments Thicker Sport Cord used Trunk Ext Sitting Exercise Name Trunk Ext Equipment Used Green thick strap Sport Cord Reps/Minutes x30 Comments Thicker Sport Cord used Trunk rot Sitting Exercise Name Trunk rot Side bilateral Resistance green thick strap Reps/Minutes 30x each Comments Thicker Sport Cord used Trunk flex Sitting Exercise Name Trunk Flex Resistance Green thick strap Sport Cord Reps/Minutes 30x Comments Thicker Sport Cord used Hamstring Curl Sitting Exercise Name Hamstring Curl separetly Side bilateral Reps/Minutes 30x each Gait Training Gait Activity Walking within LIKO walker lift Description LIKO lift used as walker w/2 person assist Device Used LIKO lift with greater WBing in LE's Level of Assistance 1 person behind with w/c and one in front monitoring LIKO lift progression Surface Level Distance/Duration 59', 25' Treatment Focus Gait endurance Comments Pt 70% WBing (per bathroom scale) in standing, with remainder weightbearing in UE 's. Standing wgt = 270#, One legg standing w/Liko -= 190#. PT-OP-T Assessment and Plan Start: 05/28/20 18:12 Freq: Status: Active Protocol: Document 07/29/20 12:47 LRN (Rec: 07/29/20 13:44 LRN [id number]) Physical Therapy Assessment Goals Four Impairment Limited Gait mobility Short Term Goal (STG) Patient will walk 60 feet in / / bars without legs giving out with 1 rest. (06/11/20: Pt gait 36' with fatigue at end 07/02/20 61 ft w/pivot before fatigue need sit using gait fitness trainer 80% WB; 07/22/20: //bar 10 ft distance forward/back stepping using approx 10% UE WB on //bar assist x3.5 laps 100% WB w/ mirror self spacial awarenessc CGA) STG Duration 06/28/20 (06/11/20: Progressing ) Manager Stylist Goal (LTG) Patient will walk 75-100 feet with FWW with 2 rests. LTG Duration 10/01/20 Three Impairment Decreased Standing Balance Short Term Goal (STG) Patient will improve balance to be able to balance independently and walk 6 steps without need of wheelchair behind her for safety. STG Duration 06/28/20 Senior Living Goal (LTG) Patient will improve balance to stand independently and walk to bathroom with FWW without need of wheelchair behind her for safety. LTG Duration 10/01/20 Two Impairment Decreased Endurance Short Term Goal (STG) Improve 5XSTS (06/11/20: 22 secs). 07/22/20: progressing 8 sit<> stands using BUE on w/c arm rests w/contact in standing for safety, provided CGA. Manager Stylist Goal (LTG) Pt will be able to walk a block 150' with multiple rests with FWW and w/c behind her for safety. LTG Duration 10/01/20 One Impairment Lacks complete HEP Senior Living Goal (LTG) Pt will have a HEP for progression of strengthening for her to do with caregiver ( Aunt). 07/22/20 HEP: resisted rows, shld ext, TB trunk rotation and flexion, back ext, LAQ, HS curl TB, sit<> stands with UE support 8 reps 30 sec today. LTG Duration 10/01/20 Progress Towards Goals Progress Comments Pt able to walk 59' w/LIKO (70 % LE WBING) prior to needing sit rest; therefore endurance improved. Assessment Summary Assessment Increased walking distance shows improved endurance at 70 % WBing ( in LIKO) as measured with bathroom scale. Pt able to do 8 max sit to stands with exteme shaking of legs w/ last rep. Physical Therapy Plan Frequency and Duration Frequency of Treatment 1x/Week Plan of Care Start Date 06/03/20 Plan of Care End Date 10/01/20 Next Visit Focus/Plan Next Note Type Progress Note Next Visit Plan Assess for PN. Add trunk Flex HEP w/feet against wall in sitting. Check 5XSTS time. Increase WBing in LIKO ( measure with bathroom scale), w/walking for 1st length near 90% LE WBing, then 80% LE WBing for rest of walking f/b trial of standing hip strengthening, Trunk strengthening, gait endurance. Continue if time permits end with stretch to ankle DF, Quads & Hamstrings and hip strengthening (hip Ext, AB, Clamshell).
--- NOTE | 2020-08-07 14:53 | PT.OTN ---
Current Diagnoses Multiple sclerosis (08/07/20) Paraplegia, incomplete (08/07/20) Muscle weakness (generalized) (08/07/20) Physical Therapy Treatment Note PT-OP-A Visit Information Start: 05/28/20 18:12 Freq: Status: Active Protocol: Document 08/07/20 10:39 LRN (Rec: 08/07/20 11:23 LRN [id number]) Out-Patient Physical Therapy Visit Information Visit Information Visit Type Progress Note Visit Start Time 10:39 Visit Stop Time 11:22 Total Visit Minutes 43 Visit Number 10 Evaluation Information Evaluation Date 06/03/20 PT-OP-B Current Condition Start: 05/28/20 18:12 Freq: Status: Active Protocol: Document 06/03/20 12:35 LRN (Rec: 06/03/20 14:23 LRN [id number]) Current Condition History of Current Condition Onset Date Mar 2020 Current Complaints Balance is not good, harder to walk History of Current Condition Getting harder to walk and exercise due to weakness of LE 's, possibly due to multiple sclerosis progression. Can only walk 55' with walker with wheelchair pushed behind her. She reports R foot drop, cold feet and legs, but can feel difference between hot/ cold. Prior Treatments and Tests Physical therapy ending 09/2019 . Treatment Goals Patient/Caregiver Goals Pt goal is to be able to walk farther without legs going out from under her. Be able to get out of bed and walk to bathroom and back independently without wheelchair behind and using a walker, and to be able to walk with a walker without someone behind with wheelchair. Prior Functional Status Baseline Function- ADL's Needs Assist Baseline Function- Mobility Needs Assist Baseline Function- Gait Ambs with FWW with caregiver behind her with a wheelchair. Current Functional Impairments (Reported) Functional Limitations- ADL's Dependent on Wheelchair for mobility. Functional Limitations- Mobility/Gait Able to take 3 steps before the legs give out. Tries to do daily walking 25' x 2 per gait practice with walker and wheelchair behind her in case legs give out. Functional Limitations- Recreation/ LE ex's every other day. Hobbies Opposite days she showers. Personal Factors Other Personal Factors That May Effect MS, paresthesia of both feet, Therapy/Recovery mostly wheelchair bound, father had recent stroke, so mother who was her caregiver is now caregiving to her father. Pt now is depending on her aunt to assist her with mobility and home exercises. PT-OP-C Subjective Start: 05/28/20 18:12 Freq: Status: Active Protocol: Document 08/07/20 10:39 LRN (Rec: 08/07/20 11:23 LRN [id number]) OP-PT Subjective Patient Comments Patient Comments Surgery on 07/26/20, pt feeling well. Breathing is better. PT-OP-E Functional Tests Start: 06/03/20 12:34 Freq: Status: Active Protocol: Document 06/11/20 13:38 LRN (Rec: 06/11/20 14:19 LRN [id number]) Functional Tests Five Times Sit to Stand Test Score 22 secs Comments Used hands to stand within // bars. NORM: 60-69 yo 11.4 sec Other 18 June Test Name of Test 18 June Test Score 7x Comment Pt fatigued at end of test PT-OP-G Mobility & Gait Start: 06/03/20 12:34 Freq: Status: Active Protocol: Document 08/07/20 10:39 LRN (Rec: 08/07/20 11:23 LRN [id number]) OP Gait Assessment Gait Gait Assistance Required: Contact Guard Assist Distance (Feet) 71 Able to Maintain Weight Bearing Status Yes During Gait Assistive Devices Assistive Device Front Wheeled Walker Comments Gait Comments R foot inverted 56 steps. PT-OP-K Range of Motion Start: 05/28/20 18:12 Freq: Status: Active Protocol: Document 06/03/20 12:35 LRN (Rec: 06/03/20 17:34 LRN [id number]) Hip Goniometric Range of Motion Hip Right Active Testing Position Prone Extension 5 Left Active Testing Position Prone Extension 7 Right Passive Testing Position Sup & Prone Straight Leg Raise 75 Internal Rotation 45 External Rotation 30 Comments Hip ER/IR measurements in prone Left Passive Testing Position Sup & Prone Straight Leg Raise 75 Internal Rotation 55 External Rotation 30 Comments Hip ER/IR measurements in prone Ankle and Foot Goniometric Range of Motion Ankle and Foot Right Active Testing Position Sitting Dorsiflexion with Knee Flexed 5 Left Active Testing Position Sitting Dorsiflexion with Knee Flexed 4 PT-OP-M Strength Start: 05/28/20 18:12 Freq: Status: Active Protocol: Document 06/03/20 12:35 LRN (Rec: 06/03/20 17:34 LRN [id number]) Hip Strength Hip Manual Muscle Testing Right Flexion (L2) 3 Fair Extension (S1) 2+ Poor+ Abduction 2+ Poor+ Adduction 2+ Poor+ Left Flexion (L2) 3 Fair Extension (S1) 3- Fair- Abduction 3 Fair Adduction 3+ Fair+ Knee Strength Knee Manual Muscle Testing Right Comments Generally 5/5 with MMT break testing in 45 deg's knee flex Left Comments Generally 5/5 with MMT break testing in 45 deg's knee flex Ankle/Foot Strength Ankle and Foot Manual Muscle Testing Right Dorsiflexion (L4) 5 Normal Plantarflexion (S1) 5 Normal Inversion 2+ Poor+ Eversion (S1) 5 Normal Left Dorsiflexion (L4) 5 Normal Plantarflexion (S1) 5 Normal Inversion 5 Normal Eversion (S1) 3+ Fair+ PT-OP-Q Treatments Start: 05/28/20 18:12 Freq: Status: Active Protocol: Document 08/07/20 10:39 LRN (Rec: 08/07/20 11:23 LRN [id number]) Therapeutic Exercises Sitting Exercises Sit to Stand Sitting Exercise Name Sit to Stand from W/C ( performed after walking) Reps/Minutes 6X Ankle IV Sitting Exercise Name Ankle IV Side bilateral Equipment Used Lev2 Reps/Minutes 30x Comments Weak on R ankle Trunk Ext Sitting Exercise Name Trunk Ext Equipment Used Blue thin Sport Cord Reps/Minutes x30 Trunk rot Sitting Exercise Name Trunk rot Side bilateral Resistance Blue thin Sport Cord Reps/Minutes 30x each Ankle DF Sitting Exercise Name Ankle DF Side bilateral Resistance Tb #2 Reps/Minutes x30 Comments 10 x 3 Trunk flex Sitting Exercise Name Trunk Flex Resistance Blue thin Sport Cord Reps/Minutes 30x Ankle EV Sitting Exercise Name Ankle EV Side bilateral Resistance TB #2 Reps/Minutes x30 Comments Weak on R ankle PT-OP-T Assessment and Plan Start: 05/28/20 18:12 Freq: Status: Active Protocol: Document 08/07/20 10:39 LRN (Rec: 08/07/20 11:23 LRN [id number]) Physical Therapy Assessment Goals Four Impairment Limited Gait mobility Short Term Goal (STG) Patient will walk 60 feet in / / bars without legs giving out with 1 rest. (08/07/20: Pt gait 71' with FWW without rest). 07/02/20: 61 ft w/pivot before fatigue need sit using gait technical trainer 80% WB; 07/22/20: //bar 10 ft distance forward/back stepping using approx 10% UE WB on //bar assist x3.5 laps 100% WB w/ mirror self spacial awarenessc CGA) STG Duration 06/28/20 (08/07/20: GOAL MET) Fdc Goal (LTG) Patient will walk 75-100 feet with FWW with 2 rests. LTG Duration 10/01/20 Three Impairment Decreased Standing Balance Short Term Goal (STG) Patient will improve balance to be able to balance independently and walk 6 steps without need of wheelchair behind her for safety. (08/07/20: Pt gait 71' with FWW). STG Duration 06/28/20 (08/07/20: Progressed) Fdc Goal (LTG) Patient will improve balance to stand independently and walk to bathroom with FWW without need of wheelchair behind her for safety. (08/07/20: Pt able to come to stand and stay standing independently with surface/ chair behind). LTG Duration 10/01/20 (08/07/20: Sit<> Stand indep) Two Impairment Decreased Endurance Short Term Goal (STG) Improve 5XSTS (06/11/20: 22 secs). 08/07/20: progressing 20 secs, sit<>stands using BUE on w/c arm rests w/contact in standing for safety, provided CGA. STG Duration (08/07/20: GOAL MET) Fdc Goal (LTG) Pt will be able to walk a block 150' with multiple rests with FWW and w/c behind her for safety. LTG Duration 10/01/20 One Impairment Lacks complete HEP Fdc Goal (LTG) Pt will have a HEP for progression of strengthening for her to do with caregiver ( Aunt). 07/22/20 HEP: resisted rows, shld ext, TB trunk rotation and flexion, back ext, LAQ, HS curl TB, sit<> stands with UE support 8 reps 30 sec today. LTG Duration 10/01/20 Progress Towards Goals Progress Comments STG #4 MET. Pt able to walk 71' with FWW and W/C behind. STG #2 MET. Pt able to perform 5TSTS in less time, was 22 secs, now 20 secs. Assessment Summary Assessment Pt has made good progress in her walking ability and endurance as indicated above. Pt will benefit from continued physical therapy to improve her safety and confidence with gait, endurance of 150' with rests as needed, Physical Therapy Plan Frequency and Duration Frequency of Treatment 1x/Week Plan of Care Start Date 06/03/20 Plan of Care End Date 10/01/20 Next Visit Focus/Plan Next Note Type Treatment Note Next Visit Plan Add trunk Flex HEP w/feet against wall in sitting. Increase WBing in LIKO ( measure with bathroom scale), w/walking for 1st length near 90% LE WBing, then 80% LE WBing for rest of walking f/b trial of standing hip strengthening, Trunk strengthening, gait endurance. Continue if time permits end with stretch to ankle DF, Quads & Hamstrings and hip strengthening (hip Ext, AB, Clamshell).
--- NOTE | 2020-08-13 16:40 | PT.OTN ---
Current Diagnoses Multiple sclerosis (08/13/20) Paraplegia, incomplete (08/13/20) Muscle weakness (generalized) (08/13/20) Physical Therapy Treatment Note PT-OP-A Visit Information Start: 05/28/20 18:12 Freq: Status: Active Protocol: Document 08/13/20 13:33 LRN (Rec: 08/13/20 14:16 LRN [id number]) Out-Patient Physical Therapy Visit Information Visit Information Visit Type Treatment Note Visit Start Time 13:33 Visit Stop Time 14:13 Total Visit Minutes 40 Visit Number 11 Evaluation Information Evaluation Date 06/03/20 Precautions Precautions Multiple Sclerosis, Paresthesia of both feet, HBP without diagnosis. PT-OP-B Current Condition Start: 05/28/20 18:12 Freq: Status: Active Protocol: Document 06/03/20 12:35 LRN (Rec: 06/03/20 14:23 LRN [id number]) Current Condition History of Current Condition Onset Date Mar 2020 Current Complaints Balance is not good, harder to walk History of Current Condition Getting harder to walk and exercise due to weakness of LE 's, possibly due to multiple sclerosis progression. Can only walk 55' with walker with wheelchair pushed behind her. She reports R foot drop, cold feet and legs, but can feel difference between hot/ cold. Prior Treatments and Tests Physical therapy ending 09/2019 . Treatment Goals Patient/Caregiver Goals Pt goal is to be able to walk farther without legs going out from under her. Be able to get out of bed and walk to bathroom and back independently without wheelchair behind and using a walker, and to be able to walk with a walker without someone behind with wheelchair. Prior Functional Status Baseline Function- ADL's Needs Assist Baseline Function- Mobility Needs Assist Baseline Function- Gait Ambs with FWW with caregiver behind her with a wheelchair. Current Functional Impairments (Reported) Functional Limitations- ADL's Dependent on Wheelchair for mobility. Functional Limitations- Mobility/Gait Able to take 3 steps before the legs give out. Tries to do daily walking 25' x 2 per gait practice with walker and wheelchair behind her in case legs give out. Functional Limitations- Recreation/ LE ex's every other day. Hobbies Opposite days she showers. Personal Factors Other Personal Factors That May Effect MS, paresthesia of both feet, Therapy/Recovery mostly wheelchair bound, father had recent stroke, so mother who was her caregiver is now caregiving to her father. Pt now is depending on her aunt to assist her with mobility and home exercises. PT-OP-C Subjective Start: 05/28/20 18:12 Freq: Status: Active Protocol: Document 08/07/20 10:39 LRN (Rec: 08/07/20 11:23 LRN [id number]) OP-PT Subjective Patient Comments Patient Comments Surgery on 07/26/20, pt feeling well. Breathing is better. PT-OP-E Functional Tests Start: 06/03/20 12:34 Freq: Status: Active Protocol: Document 06/11/20 13:38 LRN (Rec: 06/11/20 14:19 LRN [id number]) Functional Tests Five Times Sit to Stand Test Score 22 secs Comments Used hands to stand within // bars. NORM: 60-69 yo 11.4 sec Other 18 June Test Name of Test 18 June Test Score 7x Comment Pt fatigued at end of test PT-OP-G Mobility & Gait Start: 06/03/20 12:34 Freq: Status: Active Protocol: Document 08/07/20 10:39 LRN (Rec: 08/07/20 11:23 LRN [id number]) OP Gait Assessment Gait Gait Assistance Required: Contact Guard Assist Distance (Feet) 71 Able to Maintain Weight Bearing Status Yes During Gait Assistive Devices Assistive Device Front Wheeled Walker Comments Gait Comments R foot inverted 56 steps. PT-OP-K Range of Motion Start: 05/28/20 18:12 Freq: Status: Active Protocol: Document 06/03/20 12:35 LRN (Rec: 06/03/20 17:34 LRN [id number]) Hip Goniometric Range of Motion Hip Right Active Testing Position Prone Extension 5 Left Active Testing Position Prone Extension 7 Right Passive Testing Position Sup & Prone Straight Leg Raise 75 Internal Rotation 45 External Rotation 30 Comments Hip ER/IR measurements in prone Left Passive Testing Position Sup & Prone Straight Leg Raise 75 Internal Rotation 55 External Rotation 30 Comments Hip ER/IR measurements in prone Ankle and Foot Goniometric Range of Motion Ankle and Foot Right Active Testing Position Sitting Dorsiflexion with Knee Flexed 5 Left Active Testing Position Sitting Dorsiflexion with Knee Flexed 4 PT-OP-M Strength Start: 05/28/20 18:12 Freq: Status: Active Protocol: Document 06/03/20 12:35 LRN (Rec: 06/03/20 17:34 LRN [id number]) Hip Strength Hip Manual Muscle Testing Right Flexion (L2) 3 Fair Extension (S1) 2+ Poor+ Abduction 2+ Poor+ Adduction 2+ Poor+ Left Flexion (L2) 3 Fair Extension (S1) 3- Fair- Abduction 3 Fair Adduction 3+ Fair+ Knee Strength Knee Manual Muscle Testing Right Comments Generally 5/5 with MMT break testing in 45 deg's knee flex Left Comments Generally 5/5 with MMT break testing in 45 deg's knee flex Ankle/Foot Strength Ankle and Foot Manual Muscle Testing Right Dorsiflexion (L4) 5 Normal Plantarflexion (S1) 5 Normal Inversion 2+ Poor+ Eversion (S1) 5 Normal Left Dorsiflexion (L4) 5 Normal Plantarflexion (S1) 5 Normal Inversion 5 Normal Eversion (S1) 3+ Fair+ PT-OP-Q Treatments Start: 05/28/20 18:12 Freq: Status: Active Protocol: Document 08/13/20 13:33 LRN (Rec: 08/13/20 14:16 LRN [id number]) Therapeutic Exercises Sitting Exercises Abdominal strengthening Sitting Exercise Name Sit Backs w/toes on wall Trunk Ext Sitting Exercise Name Trunk Ext - 11 ft from wall Equipment Used Blue thin Sport Cord Reps/Minutes x30 Trunk rot Sitting Exercise Name Trunk rot - 11 ft from wall Side bilateral Resistance Blue thin Sport Cord Reps/Minutes 30x each Gait Training Gait Activity Walking within LIKO walker lift Description LIKO lift used as walker w/2 person assist Device Used LIKO lift with greater WBing in LE's Level of Assistance 1 person behind with w/c and one in front monitoring LIKO lift progression Surface Level Distance/Duration 30.7', 52.9', 28.4' Treatment Focus Gait endurance Comments Pt thinks 70-80% WBing in standing, with remainder weightbearing in UE's. (Standing wgt = 270#, One leg standing w/Liko = 190#). Neuro Re-Education Treatment Balance Activities Sitting Balance on Blue cushion Details Trunk Rot sitting on Blue Cushion Surface Level Equipment Lg plinth table & lg blue cushion Reps/Duration 6' PT-OP-T Assessment and Plan Start: 05/28/20 18:12 Freq: Status: Active Protocol: Document 08/13/20 13:33 LRN (Rec: 08/13/20 14:16 LRN [id number]) Physical Therapy Assessment Goals Four Impairment Limited Gait mobility Short Term Goal (STG) Patient will walk 60 feet in / / bars without legs giving out with 1 rest. (08/07/20: Pt gait 71' with FWW without rest). 07/02/20: 61 ft w/pivot before fatigue need sit using gait lead trainer 80% WB; 07/22/20: //bar 10 ft distance forward/back stepping using approx 10% UE WB on //bar assist x3.5 laps 100% WB w/ mirror self spacial awarenessc CGA) STG Duration 06/28/20 (08/07/20: GOAL MET) Benzene Washer Operator Goal (LTG) Patient will walk 75-100 feet with FWW with 2 rests. LTG Duration 10/01/20 Three Impairment Decreased Standing Balance Short Term Goal (STG) Patient will improve balance to be able to balance independently and walk 6 steps without need of wheelchair behind her for safety. (08/07/20: Pt gait 71' with FWW). STG Duration 06/28/20 (08/07/20: Progressed) Benzene Washer Operator Goal (LTG) Patient will improve balance to stand independently and walk to bathroom with FWW without need of wheelchair behind her for safety. (08/07/20: Pt able to come to stand and stay standing independently with surface/ chair behind). LTG Duration 10/01/20 (08/07/20: Sit<> Stand indep) Two Impairment Decreased Endurance Short Term Goal (STG) Improve 5XSTS (06/11/20: 22 secs). 08/07/20: progressing 20 secs, sit<>stands using BUE on w/c arm rests w/contact in standing for safety, provided CGA. STG Duration (08/07/20: GOAL MET) Senior Living Goal (LTG) Pt will be able to walk a block 150' with multiple rests with FWW and w/c behind her for safety. (08/13/20: Pt walks in LIKO lift 113' with 2 sit rests) LTG Duration 10/01/20 (08/13/20: Progressing) One Impairment Lacks complete HEP Benzene Washer Operator Goal (LTG) Pt will have a HEP for progression of strengthening for her to do with caregiver ( Aunt). 07/22/20 HEP: resisted rows, shld ext, TB trunk rotation and flexion, back ext, LAQ, HS curl TB, sit<> stands with UE support 8 reps 30 sec today. (08/13/20: Added abdominal strengthening: Lean backs in chair with toes on wall) LTG Duration 10/01/20 (08/13/20: Progressed) Assessment Summary Assessment Good tolerance to abdominal strengthening with lean backs & toes on wall. Pt is tolerating greater walking distance with sit rests. Physical Therapy Plan Frequency and Duration Frequency of Treatment 1x/Week Plan of Care Start Date 06/03/20 Plan of Care End Date 10/01/20 Next Visit Focus/Plan Next Note Type Treatment Note Next Visit Plan Start with gait with W/C behind, then do LIKO; or gait for increased WBing in LIKO ( measure with bathroom scale) with 1st length near 90% LE WBing, then 80% LE WBing for the rest of walking; f/b trial of standing hip strengthening . Trunk strengthening, gait endurance. Continue if time permits end with stretch to ankle DF, Quads & Hamstrings and hip strengthening (hip Ext , AB, Clamshell).
--- NOTE | 2020-08-22 13:48 | PT.OTN ---
Current Diagnoses Multiple sclerosis (08/22/20) Paraplegia, incomplete (08/22/20) Muscle weakness (generalized) (08/22/20) Physical Therapy Treatment Note PT-OP-A Visit Information Start: 05/28/20 18:12 Freq: Status: Active Protocol: Document 08/22/20 13:00 SP (Rec: 08/22/20 15:59 SP [id number]) Out-Patient Physical Therapy Visit Information Visit Information Visit Type Treatment Note Visit Note PT Aide trails w/ w/c for safety during gait Visit Start Time 13:00 Visit Stop Time 13:48 Total Visit Minutes 48 Visit Number 12 Number of NURSE RECRUITER Visits 1 Evaluation Information Evaluation Date 06/03/20 Precautions Precautions Multiple Sclerosis, Paresthesia of both feet, HBP without diagnosis. PT-OP-B Current Condition Start: 05/28/20 18:12 Freq: Status: Active Protocol: Document 06/03/20 12:35 LRN (Rec: 06/03/20 14:23 LRN [id number]) Current Condition History of Current Condition Onset Date Mar 2020 Current Complaints Balance is not good, harder to walk History of Current Condition Getting harder to walk and exercise due to weakness of LE 's, possibly due to multiple sclerosis progression. Can only walk 55' with walker with wheelchair pushed behind her. She reports R foot drop, cold feet and legs, but can feel difference between hot/ cold. Prior Treatments and Tests Physical therapy ending 09/2019 . Treatment Goals Patient/Caregiver Goals Pt goal is to be able to walk farther without legs going out from under her. Be able to get out of bed and walk to bathroom and back independently without wheelchair behind and using a walker, and to be able to walk with a walker without someone behind with wheelchair. Prior Functional Status Baseline Function- ADL's Needs Assist Baseline Function- Mobility Needs Assist Baseline Function- Gait Ambs with FWW with caregiver behind her with a wheelchair. Current Functional Impairments (Reported) Functional Limitations- ADL's Dependent on Wheelchair for mobility. Functional Limitations- Mobility/Gait Able to take 3 steps before the legs give out. Tries to do daily walking 25' x 2 per gait practice with walker and wheelchair behind her in case legs give out. Functional Limitations- Recreation/ LE ex's every other day. Hobbies Opposite days she showers. Personal Factors Other Personal Factors That May Effect MS, paresthesia of both feet, Therapy/Recovery mostly wheelchair bound, father had recent stroke, so mother who was her caregiver is now caregiving to her father. Pt now is depending on her aunt to assist her with mobility and home exercises. PT-OP-C Subjective Start: 05/28/20 18:12 Freq: Status: Active Protocol: Document 08/22/20 13:00 SP (Rec: 08/22/20 15:59 SP [id number]) OP-PT Subjective Patient Comments Patient Comments Pt stated only had sore throat and less coughing, breathing better now. PT-OP-E Functional Tests Start: 06/03/20 12:34 Freq: Status: Active Protocol: Document 06/11/20 13:38 LRN (Rec: 06/11/20 14:19 LRN [id number]) Functional Tests Five Times Sit to Stand Test Score 22 secs Comments Used hands to stand within // bars. NORM: 60-69 yo 11.4 sec Other 18 June Test Name of Test 18 June Test Score 7x Comment Pt fatigued at end of test PT-OP-G Mobility & Gait Start: 06/03/20 12:34 Freq: Status: Active Protocol: Document 08/07/20 10:39 LRN (Rec: 08/07/20 11:23 LRN [id number]) OP Gait Assessment Gait Gait Assistance Required: Contact Guard Assist Distance (Feet) 71 Able to Maintain Weight Bearing Status Yes During Gait Assistive Devices Assistive Device Front Wheeled Walker Comments Gait Comments R foot inverted 56 steps. PT-OP-K Range of Motion Start: 05/28/20 18:12 Freq: Status: Active Protocol: Document 06/03/20 12:35 LRN (Rec: 06/03/20 17:34 LRN [id number]) Hip Goniometric Range of Motion Hip Right Active Testing Position Prone Extension 5 Left Active Testing Position Prone Extension 7 Right Passive Testing Position Sup & Prone Straight Leg Raise 75 Internal Rotation 45 External Rotation 30 Comments Hip ER/IR measurements in prone Left Passive Testing Position Sup & Prone Straight Leg Raise 75 Internal Rotation 55 External Rotation 30 Comments Hip ER/IR measurements in prone Ankle and Foot Goniometric Range of Motion Ankle and Foot Right Active Testing Position Sitting Dorsiflexion with Knee Flexed 5 Left Active Testing Position Sitting Dorsiflexion with Knee Flexed 4 PT-OP-M Strength Start: 05/28/20 18:12 Freq: Status: Active Protocol: Document 06/03/20 12:35 LRN (Rec: 06/03/20 17:34 LRN [id number]) Hip Strength Hip Manual Muscle Testing Right Flexion (L2) 3 Fair Extension (S1) 2+ Poor+ Abduction 2+ Poor+ Adduction 2+ Poor+ Left Flexion (L2) 3 Fair Extension (S1) 3- Fair- Abduction 3 Fair Adduction 3+ Fair+ Knee Strength Knee Manual Muscle Testing Right Comments Generally 5/5 with MMT break testing in 45 deg's knee flex Left Comments Generally 5/5 with MMT break testing in 45 deg's knee flex Ankle/Foot Strength Ankle and Foot Manual Muscle Testing Right Dorsiflexion (L4) 5 Normal Plantarflexion (S1) 5 Normal Inversion 2+ Poor+ Eversion (S1) 5 Normal Left Dorsiflexion (L4) 5 Normal Plantarflexion (S1) 5 Normal Inversion 5 Normal Eversion (S1) 3+ Fair+ PT-OP-Q Treatments Start: 05/28/20 18:12 Freq: Status: Active Protocol: Document 08/22/20 13:00 SP (Rec: 08/22/20 15:59 SP [id number]) Therapeutic Exercises Prone Exercises quad stretch Prone Exercise Name manual knee flexion with small lift into hip ext stretch Side bilateral Reps/Minutes 30 x2 Hamsting curl Prone Exercise Name Hamstring stretch Side bilateral Reps/Minutes 30 x2 Sidelying Exercises CLAMSHELL Sidelying Exercise Name Review HEP Side bilateral Reps/Minutes x5 Hip AB Sidelying Exercise Name Hip AB- review HEP Side bilateral Resistance AROM Reps/Minutes x5 Comments cued bottom leg bent Sitting Exercises Trunk Ext Sitting Exercise Name Trunk Ext - 11 ft from wall Equipment Used Blue thin Sport Cord Reps/Minutes x30 Trunk rot Sitting Exercise Name Trunk rot - 11 ft from wall Side bilateral Resistance Blue thin Sport Cord Reps/Minutes 30x each Trunk flex Sitting Exercise Name Trunk Flex Resistance Blue thin Sport Cord Reps/Minutes 30x Gait Training Gait Activity Walking with FWW Description Walking with FWW Device Used FWW Level of Assistance CGA Surface carpet Distance/Duration 100 ft Treatment Focus increase LE WB strength during gait Comments pt bathroom about 10 feet away from bed. with w/c follow. vc's to avoid extensive overuse of upper traps PT-OP-T Assessment and Plan Start: 05/28/20 18:12 Freq: Status: Active Protocol: Document 08/22/20 13:00 SP (Rec: 08/22/20 15:59 SP [id number]) Physical Therapy Assessment Goals Four Impairment Limited Gait mobility Short Term Goal (STG) Patient will walk 60 feet in / / bars without legs giving out with 1 rest. 08/22/20: Pt gait 100' w/ FWW w / 2 stop stand rests 97% WB BLE and 3% UE WB on FWW 57' w / pivot turn then 80% WB using UE support 20% on FWW, w/c follow. 07/02/20: 61 ft w/pivot before fatigue need sit using gait security trainer 80% WB; 07/22/20: //bar 10 ft distance forward/back stepping using approx 10% UE WB on //bar assist x3.5 laps 100% WB w/ mirror self spacial awarenessc CGA) STG Duration 06/28/20 (08/07/20: GOAL MET) Skilled Nursing Goal (LTG) Patient will walk 75-100 feet with FWW with 2 rests. LTG Duration 10/01/20 Three Impairment Decreased Standing Balance Short Term Goal (STG) Patient will improve balance to be able to balance independently and walk 6 steps without need of wheelchair behind her for safety. (08/07/20: Pt gait 71' with FWW, 08/22/20: 100ft, 70 ft w/ FWW 97> 80% WB through LEs w/ w/c trail for safety). STG Duration 06/28/20 (08/22/20: Progressed) Municipal Engineer Goal (LTG) Patient will improve balance to stand independently and walk to bathroom with FWW without need of wheelchair behind her for safety. (08/07/20: Pt able to come to stand and stay standing independently with surface/ chair behind). LTG Duration 10/01/20 (08/07/20: Sit<> Stand indep) Two Impairment Decreased Endurance Short Term Goal (STG) Improve 5XSTS (06/11/20: 22 secs). 08/07/20: progressing 20 secs, sit<>stands using BUE on w/c arm rests w/contact in standing for safety, provided CGA. STG Duration (08/07/20: GOAL MET) Municipal Engineer Goal (LTG) Pt will be able to walk a block 150' with multiple rests with FWW and w/c behind her for safety. (08/13/20: Pt walks in LIKO lift 113' with 2 sit rests) LTG Duration 10/01/20 (08/13/20: Progressing) One Impairment Lacks complete HEP Skilled Nursing Goal (LTG) Pt will have a HEP for progression of strengthening for her to do with caregiver ( Aunt). 08/22/20 HEP: resisted rows, shld ext, TB trunk rotation and flexion, back ext, LAQ, HS curl TB, sit<> stands with UE support 8 reps 30 sec today. (08/22/20: Added abdominal strengthening: Lean backs in chair with toes on wall, sidelying hip abd/ clamshell) LTG Duration 10/01/20 (08/13/20: Progressed) Assessment Summary Assessment Pt improved in LE WB 97% 57 ft then pivot and another 43 ft 80% WB w/ use of FWW CGA w/ 2 brief stop stand rests and w/c trailing for safety. 2nd gait train 70 ft 90>85% WB through BLE using FWW and w/c trail. Reviewed HEP trunk seated and sidelying strengthenging and manual stretching end of tx. Pt had good recall and effort througout exercises/ gait today, cued bottom LE bent during hip abd/ clamshell to assist trunk stability. Physical Therapy Plan Frequency and Duration Frequency of Treatment 1x/Week Plan of Care Start Date 06/03/20 Plan of Care End Date 10/01/20 Therapeutic Interventions Therapeutic Interventions Aquatic Therapy,Gait Training, Home Exercise Program, Neuromuscular Re-education, Patient/Caregiver Education, Self-Care/Home Management, Therapeutic Activities, Therapeutic Exercises Next Visit Focus/Plan Next Note Type Treatment Note Next Visit Plan Assess response gait w/ FWW with W/C trail x2 performances begin/ end tx. Continue gait for increased WBing, if need LIKO (measure with bathroom scale pre forawareness of WB performance) continue with 1st length near 90% LE WBing, then 80% + LE WBing for the rest of walking; Next tx: f/b trial of standing hip strengthening. Trunk strengthening, gait endurance. Continue if time permits end with stretch to ankle DF, Quads & Hamstrings and hip strengthening (hip Ext, AB, Clamshell).
--- NOTE | 2020-08-27 16:43 | PT.OTN ---
Current Diagnoses Multiple sclerosis (08/27/20) Paraplegia, incomplete (08/27/20) Muscle weakness (generalized) (08/27/20) Physical Therapy Treatment Note PT-OP-A Visit Information Start: 05/28/20 18:12 Freq: Status: Active Protocol: Document 08/27/20 13:32 LRN (Rec: 08/27/20 14:21 LRN [id number]) Out-Patient Physical Therapy Visit Information Visit Information Visit Type Treatment Note Visit Start Time 13:33 Visit Stop Time 14:17 Total Visit Minutes 44 Visit Number 13 Evaluation Information Evaluation Date 06/03/20 Precautions Precautions Multiple Sclerosis, Paresthesia of both feet, HBP without diagnosis. PT-OP-B Current Condition Start: 05/28/20 18:12 Freq: Status: Active Protocol: Document 06/03/20 12:35 LRN (Rec: 06/03/20 14:23 LRN [id number]) Current Condition History of Current Condition Onset Date Mar 2020 Current Complaints Balance is not good, harder to walk History of Current Condition Getting harder to walk and exercise due to weakness of LE 's, possibly due to multiple sclerosis progression. Can only walk 55' with walker with wheelchair pushed behind her. She reports R foot drop, cold feet and legs, but can feel difference between hot/ cold. Prior Treatments and Tests Physical therapy ending 09/2019 . Treatment Goals Patient/Caregiver Goals Pt goal is to be able to walk farther without legs going out from under her. Be able to get out of bed and walk to bathroom and back independently without wheelchair behind and using a walker, and to be able to walk with a walker without someone behind with wheelchair. Prior Functional Status Baseline Function- ADL's Needs Assist Baseline Function- Mobility Needs Assist Baseline Function- Gait Ambs with FWW with caregiver behind her with a wheelchair. Current Functional Impairments (Reported) Functional Limitations- ADL's Dependent on Wheelchair for mobility. Functional Limitations- Mobility/Gait Able to take 3 steps before the legs give out. Tries to do daily walking 25' x 2 per gait practice with walker and wheelchair behind her in case legs give out. Functional Limitations- Recreation/ LE ex's every other day. Hobbies Opposite days she showers. Personal Factors Other Personal Factors That May Effect MS, paresthesia of both feet, Therapy/Recovery mostly wheelchair bound, father had recent stroke, so mother who was her caregiver is now caregiving to her father. Pt now is depending on her aunt to assist her with mobility and home exercises. PT-OP-C Subjective Start: 05/28/20 18:12 Freq: Status: Active Protocol: Document 08/27/20 13:32 LRN (Rec: 08/27/20 14:21 LRN [id number]) OP-PT Subjective Patient Comments Patient Comments Has been doing intermittent fasting and has lost weight. PT-OP-E Functional Tests Start: 06/03/20 12:34 Freq: Status: Active Protocol: Document 08/27/20 13:32 LRN (Rec: 08/27/20 14:21 LRN [id number]) Functional Tests Five Times Sit to Stand Test Score 14 secs Comments Previous was 22 secs. PT-OP-G Mobility & Gait Start: 06/03/20 12:34 Freq: Status: Active Protocol: Document 08/07/20 10:39 LRN (Rec: 08/07/20 11:23 LRN [id number]) OP Gait Assessment Gait Gait Assistance Required: Contact Guard Assist Distance (Feet) 71 Able to Maintain Weight Bearing Status Yes During Gait Assistive Devices Assistive Device Front Wheeled Walker Comments Gait Comments R foot inverted 56 steps. PT-OP-K Range of Motion Start: 05/28/20 18:12 Freq: Status: Active Protocol: Document 06/03/20 12:35 LRN (Rec: 06/03/20 17:34 LRN [id number]) Hip Goniometric Range of Motion Hip Right Active Testing Position Prone Extension 5 Left Active Testing Position Prone Extension 7 Right Passive Testing Position Sup & Prone Straight Leg Raise 75 Internal Rotation 45 External Rotation 30 Comments Hip ER/IR measurements in prone Left Passive Testing Position Sup & Prone Straight Leg Raise 75 Internal Rotation 55 External Rotation 30 Comments Hip ER/IR measurements in prone Ankle and Foot Goniometric Range of Motion Ankle and Foot Right Active Testing Position Sitting Dorsiflexion with Knee Flexed 5 Left Active Testing Position Sitting Dorsiflexion with Knee Flexed 4 PT-OP-M Strength Start: 05/28/20 18:12 Freq: Status: Active Protocol: Document 06/03/20 12:35 LRN (Rec: 06/03/20 17:34 LRN [id number]) Hip Strength Hip Manual Muscle Testing Right Flexion (L2) 3 Fair Extension (S1) 2+ Poor+ Abduction 2+ Poor+ Adduction 2+ Poor+ Left Flexion (L2) 3 Fair Extension (S1) 3- Fair- Abduction 3 Fair Adduction 3+ Fair+ Knee Strength Knee Manual Muscle Testing Right Comments Generally 5/5 with MMT break testing in 45 deg's knee flex Left Comments Generally 5/5 with MMT break testing in 45 deg's knee flex Ankle/Foot Strength Ankle and Foot Manual Muscle Testing Right Dorsiflexion (L4) 5 Normal Plantarflexion (S1) 5 Normal Inversion 2+ Poor+ Eversion (S1) 5 Normal Left Dorsiflexion (L4) 5 Normal Plantarflexion (S1) 5 Normal Inversion 5 Normal Eversion (S1) 3+ Fair+ PT-OP-Q Treatments Start: 05/28/20 18:12 Freq: Status: Active Protocol: Document 08/27/20 13:32 LRN (Rec: 08/27/20 14:21 LRN [id number]) Therapeutic Exercises Sitting Exercises Sit Backs Sitting Exercise Name Sit Back with toes on wall Reps/Minutes 3' Trunk SB Sitting Exercise Name R Trunk SB Side bilateral Resistance Blue thick strap Sport Cord Reps/Minutes x30 Comments Thicker Sport Cord used Trunk Ext Sitting Exercise Name Trunk Ext - 11 ft from wall Equipment Used Blue thick Cord Reps/Minutes x30 Trunk rot Sitting Exercise Name Trunk rot - 11 ft from wall Side bilateral Resistance Blue thick Sport Cord Reps/Minutes 30x each Trunk flex Sitting Exercise Name Trunk Flex Resistance Blue thick Sport Cord Reps/Minutes 30x Standing Exercises Standing balance Standing Exercise Name Standing Balance from W/C Reps/Minutes 45 x 2 with sit rest inbetween Sit to stand Standing Exercise Name 5x Sit to + 1 Comments Pt needed rest after exercise Gait Training Gait Activity Walking with walker Description Walking with FWW Device Used FWW Level of Assistance CGA Surface Level Distance/Duration 89 ft + 38 ft Comments 5% - 8% WBing through arms, from start to finish. 8% - 15% WBing through arms - 2nd walk. Pt required resting between bouts and after activity. PT-OP-T Assessment and Plan Start: 05/28/20 18:12 Freq: Status: Active Protocol: Document 08/27/20 13:32 LRN (Rec: 08/27/20 14:21 LRN [id number]) Physical Therapy Assessment Goals Four Impairment Limited Gait mobility Short Term Goal (STG) Patient will walk 60 feet in / / bars without legs giving out with 1 rest. 08/22/20: Pt gait 100' w/ FWW w / 2 stop stand rests 97% WB BLE and 3% UE WB on FWW 57' w / pivot turn then 80% WB using UE support 20% on FWW, w/c follow. 07/02/20: 61 ft w/pivot before fatigue need sit using gait event promotions coordinator 80% WB; 07/22/20: //bar 10 ft distance forward/back stepping using approx 10% UE WB on //bar assist x3.5 laps 100% WB w/ mirror self spacial awarenessc CGA) STG Duration 06/28/20 (08/07/20: GOAL MET) Webbing Weaver Goal (LTG) Patient will walk 75-100 feet with FWW with 2 rests. (08/27/20: Pt walked 127' with one rest stop) LTG Duration 10/01/20 (08/27/20: MET GOAL) Three Impairment Decreased Standing Balance Short Term Goal (STG) Patient will improve balance to be able to balance independently and walk 6 steps without need of wheelchair behind her for safety. (08/07/20: Pt gait 71' with FWW, 08/22/20: 100ft, 70 ft w/ FWW 97> 80% WB through LEs w/ w/c trail for safety). STG Duration 06/28/20 (08/22/20: Progressed) Webbing Weaver Goal (LTG) Patient will improve balance to stand independently and walk to bathroom with FWW without need of wheelchair behind her for safety. (08/07/20: Pt able to come to stand and stay standing independently with surface/ chair behind). LTG Duration 10/01/20 (08/07/20: Sit<> Stand indep) Two Impairment Decreased Endurance Short Term Goal (STG) Improve 5XSTS (06/11/20: 22 secs). 08/07/20: progressing 20 secs, sit<>stands using BUE on w/c arm rests w/contact in standing for safety, provided CGA. (08/27/20: 14 secs) STG Duration (08/07/20: GOAL MET) Webbing Weaver Goal (LTG) Pt will be able to walk a block 150' with multiple rests with FWW and w/c behind her for safety. (08/13/20: Pt walks in LIKO lift 113' with 2 sit rests) LTG Duration 10/01/20 (08/13/20: Progressing) One Impairment Lacks complete HEP Shelter Goal (LTG) Pt will have a HEP for progression of strengthening for her to do with caregiver ( Aunt). 08/22/20 HEP: resisted rows, shld ext, TB trunk rotation and flexion, back ext, LAQ, HS curl TB, sit<> stands with UE support 8 reps 30 sec today. (08/22/20: Added abdominal strengthening: Lean backs in chair with toes on wall - ( reviewed on 08/27/20), sidelying hip abd/ clamshell) LTG Duration 10/01/20 (08/27/20: Progressed ) Progress Towards Goals Progress Comments LTG #4 MET. Pt was able to walk 89' with FWW (w/c behind her) and a total of 127' with one sitting rest. Assessment Summary Assessment Walking endurance improved, pt able to walk with FWW (W/C behind her) 89' with 8% WBing in arms. Pt believes she is probably safe to walk 5' to bathroom with FWW at home when not tired, but hasn't tried it yet. Pt weight loss may be a factor in her improved endurance and ambulatory ability. Pt is benefiting from continued PT; therefore in order to extend therapy pt requests decreasing therapy to every other week. I feel this would be appropriate with the pt working towards improving her confidence in walking at home. Physical Therapy Plan Frequency and Duration Frequency of Treatment Every Other Week Plan of Care Start Date 06/03/20 Plan of Care End Date 10/01/20 Next Visit Focus/Plan Next Note Type Treatment Note Next Visit Plan Decrease therapy to 1x/2weeks. Continue gait, add static standing for increased WBing through legs (might consider standing hip strengthening), if need LIKO (measure with bathroom scale pre for awareness of WB performance). Attempt with LIKO 90% LE WBing; trial of. Cont trunk strengthening, gait endurance. If time permits end with stretch to ankle DF, Quads & Hamstrings and hip strengthening (hip Ext, AB, Clamshell).
--- NOTE | 2020-09-09 15:55 | PT.OTN ---
Current Diagnoses Multiple sclerosis (09/09/20) Paraplegia, incomplete (09/09/20) Muscle weakness (generalized) (09/09/20) Physical Therapy Treatment Note PT-OP-A Visit Information Start: 05/28/20 18:12 Freq: Status: Active Protocol: Document 09/09/20 12:45 LRN (Rec: 09/09/20 13:33 LRN [id number]) Out-Patient Physical Therapy Visit Information Visit Information Visit Type Treatment Note Visit Start Time 12:45 Visit Stop Time 13:30 Total Visit Minutes 45 Visit Number 14 Evaluation Information Evaluation Date 06/03/20 Precautions Precautions Multiple Sclerosis, Paresthesia of both feet, HBP without diagnosis. PT-OP-B Current Condition Start: 05/28/20 18:12 Freq: Status: Active Protocol: Document 06/03/20 12:35 LRN (Rec: 06/03/20 14:23 LRN [id number]) Current Condition History of Current Condition Onset Date Mar 2020 Current Complaints Balance is not good, harder to walk History of Current Condition Getting harder to walk and exercise due to weakness of LE 's, possibly due to multiple sclerosis progression. Can only walk 55' with walker with wheelchair pushed behind her. She reports R foot drop, cold feet and legs, but can feel difference between hot/ cold. Prior Treatments and Tests Physical therapy ending 09/2019 . Treatment Goals Patient/Caregiver Goals Pt goal is to be able to walk farther without legs going out from under her. Be able to get out of bed and walk to bathroom and back independently without wheelchair behind and using a walker, and to be able to walk with a walker without someone behind with wheelchair. Prior Functional Status Baseline Function- ADL's Needs Assist Baseline Function- Mobility Needs Assist Baseline Function- Gait Ambs with FWW with caregiver behind her with a wheelchair. Current Functional Impairments (Reported) Functional Limitations- ADL's Dependent on Wheelchair for mobility. Functional Limitations- Mobility/Gait Able to take 3 steps before the legs give out. Tries to do daily walking 25' x 2 per gait practice with walker and wheelchair behind her in case legs give out. Functional Limitations- Recreation/ LE ex's every other day. Hobbies Opposite days she showers. Personal Factors Other Personal Factors That May Effect MS, paresthesia of both feet, Therapy/Recovery mostly wheelchair bound, father had recent stroke, so mother who was her caregiver is now caregiving to her father. Pt now is depending on her aunt to assist her with mobility and home exercises. PT-OP-C Subjective Start: 05/28/20 18:12 Freq: Status: Active Protocol: Document 09/09/20 12:45 LRN (Rec: 09/09/20 13:33 LRN [id number]) OP-PT Subjective Patient Comments Patient Comments States she hasn't tried walking into bathroom. States she is trying to stay indoors due to high heat weather outside. PT-OP-D Balance Start: 06/03/20 12:34 Freq: Status: Active Protocol: Document 09/09/20 12:45 LRN (Rec: 09/09/20 13:33 LRN [id number]) Balance Tests Other Other Balance Tests Performed Standing in // bars without UE assist: 37 secs. PT-OP-E Functional Tests Start: 06/03/20 12:34 Freq: Status: Active Protocol: Document 08/27/20 13:32 LRN (Rec: 08/27/20 14:21 LRN [id number]) Functional Tests Five Times Sit to Stand Test Score 14 secs Comments Previous was 22 secs. PT-OP-G Mobility & Gait Start: 06/03/20 12:34 Freq: Status: Active Protocol: Document 08/07/20 10:39 LRN (Rec: 08/07/20 11:23 LRN [id number]) OP Gait Assessment Gait Gait Assistance Required: Contact Guard Assist Distance (Feet) 71 Able to Maintain Weight Bearing Status Yes During Gait Assistive Devices Assistive Device Front Wheeled Walker Comments Gait Comments R foot inverted 56 steps. PT-OP-K Range of Motion Start: 05/28/20 18:12 Freq: Status: Active Protocol: Document 06/03/20 12:35 LRN (Rec: 06/03/20 17:34 LRN [id number]) Hip Goniometric Range of Motion Hip Right Active Testing Position Prone Extension 5 Left Active Testing Position Prone Extension 7 Right Passive Testing Position Sup & Prone Straight Leg Raise 75 Internal Rotation 45 External Rotation 30 Comments Hip ER/IR measurements in prone Left Passive Testing Position Sup & Prone Straight Leg Raise 75 Internal Rotation 55 External Rotation 30 Comments Hip ER/IR measurements in prone Ankle and Foot Goniometric Range of Motion Ankle and Foot Right Active Testing Position Sitting Dorsiflexion with Knee Flexed 5 Left Active Testing Position Sitting Dorsiflexion with Knee Flexed 4 PT-OP-M Strength Start: 05/28/20 18:12 Freq: Status: Active Protocol: Document 06/03/20 12:35 LRN (Rec: 06/03/20 17:34 LRN [id number]) Hip Strength Hip Manual Muscle Testing Right Flexion (L2) 3 Fair Extension (S1) 2+ Poor+ Abduction 2+ Poor+ Adduction 2+ Poor+ Left Flexion (L2) 3 Fair Extension (S1) 3- Fair- Abduction 3 Fair Adduction 3+ Fair+ Knee Strength Knee Manual Muscle Testing Right Comments Generally 5/5 with MMT break testing in 45 deg's knee flex Left Comments Generally 5/5 with MMT break testing in 45 deg's knee flex Ankle/Foot Strength Ankle and Foot Manual Muscle Testing Right Dorsiflexion (L4) 5 Normal Plantarflexion (S1) 5 Normal Inversion 2+ Poor+ Eversion (S1) 5 Normal Left Dorsiflexion (L4) 5 Normal Plantarflexion (S1) 5 Normal Inversion 5 Normal Eversion (S1) 3+ Fair+ PT-OP-Q Treatments Start: 05/28/20 18:12 Freq: Status: Active Protocol: Document 09/09/20 12:45 LRN (Rec: 09/09/20 13:33 LRN [id number]) Therapeutic Exercises Sitting Exercises Trunk SB Sitting Exercise Name R Trunk SB Side bilateral Resistance Blue thick strap Sport Cord Reps/Minutes x30 Comments Thicker Sport Cord used Trunk Ext Sitting Exercise Name Trunk Ext - 11 ft from wall Equipment Used Blue thick Cord Reps/Minutes x30 Trunk rot Sitting Exercise Name Trunk rot - 11 ft from wall Side bilateral Resistance Blue thick Sport Cord Reps/Minutes 30x each Trunk flex Sitting Exercise Name Trunk Flex Resistance Blue thick Sport Cord Reps/Minutes 30x Standing Exercises Standing balance Standing Exercise Name Standing Balance from W/C Reps/Minutes 37 x 2 with sit rest inbetween Gait Training Gait Activity Walking with walker Description Walking with FWW Device Used FWW Level of Assistance CGA Surface Level Distance/Duration 88 ft + 37 ft Comments 3% - 10% WBing through arms, from start to finish. 3% - 10% WBing through arms - 2nd walk. Pt required resting between bouts and after activity. Walking within LIKO walker lift Description Walking: for standing single leg for gait Device Used Liko lift/hand support Level of Assistance W/C behind Surface Level Distance/Duration 15' Treatment Focus Standing 1 leg Comments Pt stepped on own foot once. Weight shift in // bars Description Standing in // bars Device Used // bars Level of Assistance SBA/GB Treatment Focus Standing tolerance Comments 37 secs PT-OP-T Assessment and Plan Start: 05/28/20 18:12 Freq: Status: Active Protocol: Document 09/09/20 12:45 LRN (Rec: 09/09/20 13:33 LRN [id number]) Physical Therapy Assessment Rehab Potential Rehabilitation Potential Good Evaluation Complexity Number of Personal Factors/Comorbidities 3 or More Number of Body Systems Impaired 4 or More Clinical Presentation at Evaluation Evolving Impairments Impairments Activity Tolerance,Balance, Gait,Strength Other Impairments Diagnosed with Multiple Sclerosis. Goals Four Impairment Limited Gait mobility Short Term Goal (STG) Patient will walk 60 feet in / / bars without legs giving out with 1 rest. 08/22/20: Pt gait 100' w/ FWW w / 2 stop stand rests 97% WB BLE and 3% UE WB on FWW 57' w / pivot turn then 80% WB using UE support 20% on FWW, w/c follow. 07/02/20: 61 ft w/pivot before fatigue need sit using gait business trainer 80% WB; 07/22/20: //bar 10 ft distance forward/back stepping using approx 10% UE WB on //bar assist x3.5 laps 100% WB w/ mirror self spacial awarenessc CGA) STG Duration 06/28/20 (08/07/20: GOAL MET) Retirement Goal (LTG) Patient will walk 75-100 feet with FWW with 2 rests. (08/27/20: Pt walked 127' with one rest stop) LTG Duration 10/01/20 (08/27/20: MET GOAL) Three Impairment Decreased Standing Balance Short Term Goal (STG) Patient will improve balance to be able to balance independently and walk 6 steps without need of wheelchair behind her for safety. (08/07/20: Pt gait 71' with FWW, 08/22/20: 100ft, 70 ft w/ FWW 97> 80% WB through LEs w/ w/c trail for safety). (09/09/20: Standing balance in // bars for 37 secs prior to fatigue) STG Duration 06/28/20 (08/22/20: Progressed) Adjunct Faculty Mathematics Department Goal (LTG) Patient will improve balance to stand independently and walk to bathroom with FWW without need of wheelchair behind her for safety. (08/07/20: Pt able to come to stand and stay standing independently with wheelchair behind). LTG Duration 10/01/20 (08/07/20: Sit<> Stand indep) Two Impairment Decreased Endurance Short Term Goal (STG) Improve 5XSTS (06/11/20: 22 secs). 08/07/20: progressing 20 secs, sit<>stands using BUE on w/c arm rests w/contact in standing for safety, provided CGA. (08/27/20: 14 secs) STG Duration (08/07/20: GOAL MET) Retirement Goal (LTG) Pt will be able to walk a block 150' with multiple rests with FWW and w/c behind her for safety. (09/09/20: Pt walks in LIKO lift 125' with 1 sit rests) LTG Duration 10/01/20 (09/09/20: Progressing) One Impairment Lacks complete HEP Retirement Goal (LTG) Pt will have a HEP for progression of strengthening for her to do with caregiver ( Aunt). 08/22/20 HEP: resisted rows, shld ext, TB trunk rotation and flexion, back ext, LAQ, HS curl TB, sit<> stands with UE support 8 reps 30 sec today. (08/22/20: Added abdominal strengthening: Lean backs in chair with toes on wall - ( reviewed on 08/27/20), sidelying hip abd/ clamshell) LTG Duration 10/01/20 (08/27/20: Progressed ) Progress Towards Goals Progress Comments Pt walked 125' with one rest with less %WBing though arms as identified by pt. Assessment Summary Assessment Overall walking endurance improved, pt able to walk with FWW (W/C behind her) 87' with 3-10% WBing in arms. Pt believes she is probably safe to walk 5' to bathroom with FWW at home when not tired, but hasn't tried it yet. Pt weight loss may be a factor in her improved endurance and ambulatory ability. Pt will benefit from continued PT; therefore we will plan on decreasing therapy to every other week in order to extend therapy time within the limits of her insurance. I feel this would be appropriate with the pt working towards improving her confidence in walking at home. Physical Therapy Plan Frequency and Duration Frequency of Treatment Every Other Week Plan of Care Start Date 09/09/20 Plan of Care End Date 03/21/21 Therapeutic Interventions Therapeutic Interventions Balance Training,Gait Training ,Home Exercise Program, Neuromuscular Re-education, Patient/Caregiver Education, Self-Care/Home Management, Therapeutic Exercises Next Visit Focus/Plan Next Note Type Treatment Note Next Visit Plan Therapy to 1x/2weeks. With LIKO measure with bathroom scale pre for awareness of WB performance. Attempt with LIKO 90% LE WBing. Continue gait for greater SLS weight bearing; add static standing for increased WBing through legs and try standing hip strengthening. Cont trunk strengthening, gait endurance. If time permits end with stretch to ankle DF, Quads & Hamstrings and hip strengthening (hip Ext, AB, Clamshell).
--- NOTE | 2020-09-24 12:30 | PT.OTN ---
Current Diagnoses Multiple sclerosis (09/24/20) Paraplegia, incomplete (09/24/20) Muscle weakness (generalized) (09/24/20) Physical Therapy Treatment Note PT-OP-A Visit Information Start: 05/28/20 18:12 Freq: Status: Active Protocol: Document 09/24/20 11:24 LRN (Rec: 09/24/20 12:29 LRN [id number]) Out-Patient Physical Therapy Visit Information Visit Information Visit Type Treatment Note Visit Start Time 11:24 Visit Stop Time 12:07 Total Visit Minutes 43 Visit Number 15 Evaluation Information Evaluation Date 06/03/20 Precautions Precautions Multiple Sclerosis, Paresthesia of both feet, HBP without diagnosis. PT-OP-B Current Condition Start: 05/28/20 18:12 Freq: Status: Active Protocol: Document 06/03/20 12:35 LRN (Rec: 06/03/20 14:23 LRN [id number]) Current Condition History of Current Condition Onset Date Mar 2020 Current Complaints Balance is not good, harder to walk History of Current Condition Getting harder to walk and exercise due to weakness of LE 's, possibly due to multiple sclerosis progression. Can only walk 55' with walker with wheelchair pushed behind her. She reports R foot drop, cold feet and legs, but can feel difference between hot/ cold. Prior Treatments and Tests Physical therapy ending 09/2019 . Treatment Goals Patient/Caregiver Goals Pt goal is to be able to walk farther without legs going out from under her. Be able to get out of bed and walk to bathroom and back independently without wheelchair behind and using a walker, and to be able to walk with a walker without someone behind with wheelchair. Prior Functional Status Baseline Function- ADL's Needs Assist Baseline Function- Mobility Needs Assist Baseline Function- Gait Ambs with FWW with caregiver behind her with a wheelchair. Current Functional Impairments (Reported) Functional Limitations- ADL's Dependent on Wheelchair for mobility. Functional Limitations- Mobility/Gait Able to take 3 steps before the legs give out. Tries to do daily walking 25' x 2 per gait practice with walker and wheelchair behind her in case legs give out. Functional Limitations- Recreation/ LE ex's every other day. Hobbies Opposite days she showers. Personal Factors Other Personal Factors That May Effect MS, paresthesia of both feet, Therapy/Recovery mostly wheelchair bound, father had recent stroke, so mother who was her caregiver is now caregiving to her father. Pt now is depending on her aunt to assist her with mobility and home exercises. PT-OP-C Subjective Start: 05/28/20 18:12 Freq: Status: Active Protocol: Document 09/24/20 11:24 LRN (Rec: 09/24/20 12:29 LRN [id number]) OP-PT Subjective Patient Comments Patient Comments States she has not been able to exercise as much due to heat, house being painted and . PT-OP-D Balance Start: 06/03/20 12:34 Freq: Status: Active Protocol: Document 09/09/20 12:45 LRN (Rec: 09/09/20 13:33 LRN [id number]) Balance Tests Other Other Balance Tests Performed Standing in // bars without UE assist: 37 secs. PT-OP-E Functional Tests Start: 06/03/20 12:34 Freq: Status: Active Protocol: Document 08/27/20 13:32 LRN (Rec: 08/27/20 14:21 LRN [id number]) Functional Tests Five Times Sit to Stand Test Score 14 secs Comments Previous was 22 secs. PT-OP-G Mobility & Gait Start: 06/03/20 12:34 Freq: Status: Active Protocol: Document 08/07/20 10:39 LRN (Rec: 08/07/20 11:23 LRN [id number]) OP Gait Assessment Gait Gait Assistance Required: Contact Guard Assist Distance (Feet) 71 Able to Maintain Weight Bearing Status Yes During Gait Assistive Devices Assistive Device Front Wheeled Walker Comments Gait Comments R foot inverted 56 steps. PT-OP-K Range of Motion Start: 05/28/20 18:12 Freq: Status: Active Protocol: Document 06/03/20 12:35 LRN (Rec: 06/03/20 17:34 LRN [id number]) Hip Goniometric Range of Motion Hip Right Active Testing Position Prone Extension 5 Left Active Testing Position Prone Extension 7 Right Passive Testing Position Sup & Prone Straight Leg Raise 75 Internal Rotation 45 External Rotation 30 Comments Hip ER/IR measurements in prone Left Passive Testing Position Sup & Prone Straight Leg Raise 75 Internal Rotation 55 External Rotation 30 Comments Hip ER/IR measurements in prone Ankle and Foot Goniometric Range of Motion Ankle and Foot Right Active Testing Position Sitting Dorsiflexion with Knee Flexed 5 Left Active Testing Position Sitting Dorsiflexion with Knee Flexed 4 PT-OP-M Strength Start: 05/28/20 18:12 Freq: Status: Active Protocol: Document 06/03/20 12:35 LRN (Rec: 06/03/20 17:34 LRN [id number]) Hip Strength Hip Manual Muscle Testing Right Flexion (L2) 3 Fair Extension (S1) 2+ Poor+ Abduction 2+ Poor+ Adduction 2+ Poor+ Left Flexion (L2) 3 Fair Extension (S1) 3- Fair- Abduction 3 Fair Adduction 3+ Fair+ Knee Strength Knee Manual Muscle Testing Right Comments Generally 5/5 with MMT break testing in 45 deg's knee flex Left Comments Generally 5/5 with MMT break testing in 45 deg's knee flex Ankle/Foot Strength Ankle and Foot Manual Muscle Testing Right Dorsiflexion (L4) 5 Normal Plantarflexion (S1) 5 Normal Inversion 2+ Poor+ Eversion (S1) 5 Normal Left Dorsiflexion (L4) 5 Normal Plantarflexion (S1) 5 Normal Inversion 5 Normal Eversion (S1) 3+ Fair+ PT-OP-Q Treatments Start: 05/28/20 18:12 Freq: Status: Active Protocol: Document 09/24/20 11:24 LRN (Rec: 09/24/20 12:29 LRN [id number]) Therapeutic Exercises Sitting Exercises Trunk SB Sitting Exercise Name R Trunk SB - 12.4 ft from wall Side bilateral Resistance Blue strap Sport Cord Reps/Minutes x30 Trunk Ext Sitting Exercise Name Trunk Ext - 12.4 ft from wall Equipment Used Blue strap Sport Cord Reps/Minutes x30 Trunk rot Sitting Exercise Name Trunk rot - 11 ft from wall Side bilateral Resistance Blue Sport Cord Reps/Minutes 30x each Trunk flex Sitting Exercise Name Trunk Flex - 12.4 ft from wall Resistance Blue Sport Cord Reps/Minutes 30x Comments 12.4' away from anchor wall Standing Exercises Standing balance Standing Exercise Name Standing Balance from W/C using walker Reps/Minutes 8' Comments WBing(#): Stand: 190 L, 150R; SLS max: 230 L, 210 R. Gait Training Gait Activity Walking with walker Description Walking with FWW Device Used FWW Level of Assistance CGA Surface Level Distance/Duration 99' Comments 3% - 25% WBing through arms, from start to finish. Walking within LIKO walker lift Description Walking: for standing single leg for gait Device Used Liko lift Level of Assistance W/C behind Surface Level Distance/Duration 20 ft UE WBing 90%-25% Treatment Focus Standing 1 leg and walking w/o UE support PT-OP-T Assessment and Plan Start: 05/28/20 18:12 Freq: Status: Active Protocol: Document 09/24/20 11:24 LRN (Rec: 09/24/20 12:29 LRN [id number]) Physical Therapy Assessment Goals Four Impairment Limited Gait mobility Short Term Goal (STG) Patient will walk 60 feet in / / bars without legs giving out with 1 rest. 08/22/20: Pt gait 100' w/ FWW w / 2 stop stand rests 97% WB BLE and 3% UE WB on FWW 57' w / pivot turn then 80% WB using UE support 20% on FWW, w/c follow. 07/02/20: 61 ft w/pivot before fatigue need sit using gait assistive technology trainer 80% WB; 07/22/20: //bar 10 ft distance forward/back stepping using approx 10% UE WB on //bar assist x3.5 laps 100% WB w/ mirror self spacial awarenessc CGA) STG Duration 06/28/20 (08/07/20: GOAL MET) Burr Machine Operator Goal (LTG) Patient will walk 75-100 feet with FWW with 2 rests. (08/27/20: Pt walked 127' with one rest stop) LTG Duration 10/01/20 (08/27/20: MET GOAL) Three Impairment Decreased Standing Balance Short Term Goal (STG) Patient will improve balance to be able to balance independently and walk 6 steps without need of wheelchair behind her for safety. (08/07/20: Pt gait 71' with FWW, 08/22/20: 100ft, 70 ft w/ FWW 97> 80% WB through LEs w/ w/c trail for safety). (09/09/20: Standing balance in // bars for 37 secs prior to fatigue) STG Duration 06/28/20 (08/22/20: Progressed) Residential Goal (LTG) Patient will improve balance to stand independently and walk to bathroom with FWW without need of wheelchair behind her for safety. (08/07/20: Pt able to come to stand and stay standing independently with wheelchair behind). LTG Duration 10/01/20 (08/07/20: Sit<> Stand indep) Two Impairment Decreased Endurance Short Term Goal (STG) Improve 5XSTS (06/11/20: 22 secs). 08/07/20: progressing 20 secs, sit<>stands using BUE on w/c arm rests w/contact in standing for safety, provided CGA. (08/27/20: 14 secs) STG Duration (08/07/20: GOAL MET) Burr Machine Operator Goal (LTG) Pt will be able to walk a block 150' with multiple rests with FWW and w/c behind her for safety. (09/09/20: Pt walks in LIKO lift 125' with 1 sit rests) (09/24/20: Pt walks w/FWW 99') LTG Duration 10/01/20 (09/24/20: Progressing) One Impairment Lacks complete HEP Burr Machine Operator Goal (LTG) Pt will have a HEP for progression of strengthening for her to do with caregiver ( Aunt). 08/22/20 HEP: resisted rows, shld ext, TB trunk rotation and flexion, back ext, LAQ, HS curl TB, sit<> stands with UE support 8 reps 30 sec today. (08/22/20: Added abdominal strengthening: Lean backs in chair with toes on wall - ( reviewed on 08/27/20), sidelying hip abd/ clamshell) LTG Duration 10/01/20 (08/27/20: Progressed ) Assessment Summary Assessment Pt endurance is improving and is able to walk in walker (w/o LIKO) 99' w/o resting although she was WBing more in the UE's. She was able to walk (in LIKO) w/o UE's but was very nervous, even though LIKO was helping to support her. Pt needs confidence built on her ability to WB in LE's. Physical Therapy Plan Frequency and Duration Frequency of Treatment Every Other Week Plan of Care Start Date 09/09/20 Plan of Care End Date 03/21/21 Next Visit Focus/Plan Next Note Type Treatment Note Next Visit Plan With LIKO measure with bathroom scale pt's wgt, for awareness of WB performance, see if she can identify proper % of LE WBing. Attempt with LIKO 90% LE WBing. Gait for greater SLS weight bearing; Add static standing for increased WBing through legs and try standing hip strengthening. Add standing trunk strengthening, gait endurance. Pt to do at home: stretch to ankle DF, Quads & Hamstrings and hip strengthening (hip Ext , AB, Clamshell).
--- NOTE | 2020-10-10 12:16 | PT.OTN ---
Current Diagnoses Multiple sclerosis (10/10/20) Paraplegia, incomplete (10/10/20) Muscle weakness (generalized) (10/10/20) Physical Therapy Treatment Note PT-OP-A Visit Information Start: 05/28/20 18:12 Freq: Status: Active Protocol: Document 10/10/20 11:24 LRN (Rec: 10/10/20 12:15 LRN [id number]) Out-Patient Physical Therapy Visit Information Visit Information Visit Type Treatment Note Visit Start Time 11:24 Visit Stop Time 12:01 Total Visit Minutes 37 Visit Number 16 PT-OP-B Current Condition Start: 05/28/20 18:12 Freq: Status: Active Protocol: Document 06/03/20 12:35 LRN (Rec: 06/03/20 14:23 LRN [id number]) Current Condition History of Current Condition Onset Date Mar 2020 Current Complaints Balance is not good, harder to walk History of Current Condition Getting harder to walk and exercise due to weakness of LE 's, possibly due to multiple sclerosis progression. Can only walk 55' with walker with wheelchair pushed behind her. She reports R foot drop, cold feet and legs, but can feel difference between hot/ cold. Prior Treatments and Tests Physical therapy ending 09/2019 . Treatment Goals Patient/Caregiver Goals Pt goal is to be able to walk farther without legs going out from under her. Be able to get out of bed and walk to bathroom and back independently without wheelchair behind and using a walker, and to be able to walk with a walker without someone behind with wheelchair. Prior Functional Status Baseline Function- ADL's Needs Assist Baseline Function- Mobility Needs Assist Baseline Function- Gait Ambs with FWW with caregiver behind her with a wheelchair. Current Functional Impairments (Reported) Functional Limitations- ADL's Dependent on Wheelchair for mobility. Functional Limitations- Mobility/Gait Able to take 3 steps before the legs give out. Tries to do daily walking 25' x 2 per gait practice with walker and wheelchair behind her in case legs give out. Functional Limitations- Recreation/ LE ex's every other day. Hobbies Opposite days she showers. Personal Factors Other Personal Factors That May Effect MS, paresthesia of both feet, Therapy/Recovery mostly wheelchair bound, father had recent stroke, so mother who was her caregiver is now caregiving to her father. Pt now is depending on her aunt to assist her with mobility and home exercises. PT-OP-C Subjective Start: 05/28/20 18:12 Freq: Status: Active Protocol: Document 09/24/20 11:24 LRN (Rec: 09/24/20 12:29 LRN [id number]) OP-PT Subjective Patient Comments Patient Comments States she has not been able to exercise as much due to heat, house being painted and . PT-OP-D Balance Start: 06/03/20 12:34 Freq: Status: Active Protocol: Document 09/09/20 12:45 LRN (Rec: 09/09/20 13:33 LRN [id number]) Balance Tests Other Other Balance Tests Performed Standing in // bars without UE assist: 37 secs. PT-OP-E Functional Tests Start: 06/03/20 12:34 Freq: Status: Active Protocol: Document 08/27/20 13:32 LRN (Rec: 08/27/20 14:21 LRN [id number]) Functional Tests Five Times Sit to Stand Test Score 14 secs Comments Previous was 22 secs. PT-OP-G Mobility & Gait Start: 06/03/20 12:34 Freq: Status: Active Protocol: Document 08/07/20 10:39 LRN (Rec: 08/07/20 11:23 LRN [id number]) OP Gait Assessment Gait Gait Assistance Required: Contact Guard Assist Distance (Feet) 71 Able to Maintain Weight Bearing Status Yes During Gait Assistive Devices Assistive Device Front Wheeled Walker Comments Gait Comments R foot inverted 56 steps. PT-OP-K Range of Motion Start: 05/28/20 18:12 Freq: Status: Active Protocol: Document 06/03/20 12:35 LRN (Rec: 06/03/20 17:34 LRN [id number]) Hip Goniometric Range of Motion Hip Right Active Testing Position Prone Extension 5 Left Active Testing Position Prone Extension 7 Right Passive Testing Position Sup & Prone Straight Leg Raise 75 Internal Rotation 45 External Rotation 30 Comments Hip ER/IR measurements in prone Left Passive Testing Position Sup & Prone Straight Leg Raise 75 Internal Rotation 55 External Rotation 30 Comments Hip ER/IR measurements in prone Ankle and Foot Goniometric Range of Motion Ankle and Foot Right Active Testing Position Sitting Dorsiflexion with Knee Flexed 5 Left Active Testing Position Sitting Dorsiflexion with Knee Flexed 4 PT-OP-M Strength Start: 05/28/20 18:12 Freq: Status: Active Protocol: Document 06/03/20 12:35 LRN (Rec: 06/03/20 17:34 LRN [id number]) Hip Strength Hip Manual Muscle Testing Right Flexion (L2) 3 Fair Extension (S1) 2+ Poor+ Abduction 2+ Poor+ Adduction 2+ Poor+ Left Flexion (L2) 3 Fair Extension (S1) 3- Fair- Abduction 3 Fair Adduction 3+ Fair+ Knee Strength Knee Manual Muscle Testing Right Comments Generally 5/5 with MMT break testing in 45 deg's knee flex Left Comments Generally 5/5 with MMT break testing in 45 deg's knee flex Ankle/Foot Strength Ankle and Foot Manual Muscle Testing Right Dorsiflexion (L4) 5 Normal Plantarflexion (S1) 5 Normal Inversion 2+ Poor+ Eversion (S1) 5 Normal Left Dorsiflexion (L4) 5 Normal Plantarflexion (S1) 5 Normal Inversion 5 Normal Eversion (S1) 3+ Fair+ PT-OP-Q Treatments Start: 05/28/20 18:12 Freq: Status: Active Protocol: Document 10/10/20 11:24 LRN (Rec: 10/10/20 12:15 LRN [id number]) Therapeutic Exercises Sitting Exercises Trunk SB Sitting Exercise Name R Trunk SB - 12.5 ft from wall Side bilateral Resistance Blue strap Sport Cord Reps/Minutes x30 Trunk Ext Sitting Exercise Name Trunk Ext - 12.5 ft from wall Equipment Used Blue strap Sport Cord Reps/Minutes x30 Trunk rot Sitting Exercise Name Trunk rot Side bilateral Resistance 10# Dual Pully Reps/Minutes 30x Trunk flex Sitting Exercise Name Trunk Flex - 13 ft from wall Resistance Blue Sport Cord Reps/Minutes 30x Gait Training Gait Activity Walking with walker Description Walking with FWW Device Used FWW Level of Assistance SBA Surface Level Distance/Duration 84' + 21' = 105' total Comments 7% - 15% WBing through arms, from start to finish. Walking within LIKO walker lift Description Walking: for standing single leg for gait Device Used Liko lift Level of Assistance W/C behind Surface Level Distance/Duration 20 ft UE WBing 90%-100% Treatment Focus Walking w/o UE support Comments Held standing 1 leg due to pt fatigue. PT-OP-T Assessment and Plan Start: 05/28/20 18:12 Freq: Status: Active Protocol: Document 10/10/20 11:24 LRN (Rec: 10/10/20 12:15 LRN [id number]) Physical Therapy Assessment Goals Four Impairment Limited Gait mobility Short Term Goal (STG) Patient will walk 60 feet in / / bars without legs giving out with 1 rest. 08/22/20: Pt gait 100' w/ FWW w / 2 stop stand rests 97% WB BLE and 3% UE WB on FWW 57' w / pivot turn then 80% WB using UE support 20% on FWW, w/c follow. 07/02/20: 61 ft w/pivot before fatigue need sit using gait application trainer 80% WB; 07/22/20: //bar 10 ft distance forward/back stepping using approx 10% UE WB on //bar assist x3.5 laps 100% WB w/ mirror self spacial awarenessc CGA) STG Duration 06/28/20 (08/07/20: GOAL MET) Professional Services Consultant Goal (LTG) Patient will walk 75-100 feet with FWW with 2 rests. (08/27/20: Pt walked 127' with one rest stop) LTG Duration 10/01/20 (08/27/20: MET GOAL) Three Impairment Decreased Standing Balance Short Term Goal (STG) Patient will improve balance to be able to balance independently and walk 6 steps without need of wheelchair behind her for safety. (08/07/20: Pt gait 71' with FWW, 08/22/20: 100ft, 70 ft w/ FWW 97> 80% WB through LEs w/ w/c trail for safety). (09/09/20: Standing balance in // bars for 37 secs prior to fatigue) STG Duration 06/28/20 (08/22/20: Progressed) Fpc Goal (LTG) Patient will improve balance to stand independently and walk to bathroom with FWW without need of wheelchair behind her for safety. (08/07/20: Pt able to come to stand and stay standing independently with wheelchair behind). LTG Duration 10/01/20 (08/07/20: Sit<> Stand indep) Two Impairment Decreased Endurance Short Term Goal (STG) Improve 5XSTS (06/11/20: 22 secs). 08/07/20: progressing 20 secs, sit<>stands using BUE on w/c arm rests w/contact in standing for safety, provided CGA. (08/27/20: 14 secs) STG Duration (08/07/20: GOAL MET) Professional Services Consultant Goal (LTG) Pt will be able to walk a block 150' with multiple rests with FWW and w/c behind her for safety. (09/09/20: Pt walks in LIKO lift 125' with 1 sit rests) (09/24/20: Pt walks w/FWW 99') LTG Duration 10/01/20 (10/10/20: Progressing, pt walked 105') One Impairment Lacks complete HEP Professional Services Consultant Goal (LTG) Pt will have a HEP for progression of strengthening for her to do with caregiver ( Aunt). 08/22/20 HEP: resisted rows, shld ext, TB trunk rotation and flexion, back ext, LAQ, HS curl TB, sit<> stands with UE support 8 reps 30 sec today. (08/22/20: Added abdominal strengthening: Lean backs in chair with toes on wall - ( reviewed on 08/27/20), sidelying hip abd/ clamshell) LTG Duration 10/01/20 (08/27/20: Progressed ) Assessment Summary Assessment Pt able to walk in Liko with 100% LE WBing ~ 10' total (of 20' trial) in a very unsteady manner with very poor balance . Pt R ankle noted as feeling funny after gait, but no abnormalities noted during gait in Liko, even during full WBing gait. Pt improving in trunk strength. Physical Therapy Plan Frequency and Duration Frequency of Treatment Every Other Week Plan of Care Start Date 09/09/20 Plan of Care End Date 03/21/21 Next Visit Focus/Plan Next Note Type Treatment Note Next Visit Plan Progress balance (100% LE WBing for walking), STS/ endurance and blalance (LIKO measure with bathroom scale pt 's wgt, for awareness of WB performance, see if she can identify proper % of LE WBing) . Gait for greater SLS weight bearing; Add static standing for increased WBing through legs and try standing hip strengthening. Add standing trunk strengthening, gait endurance. Pt to do at home: stretch to ankle DF, Quads & Hamstrings and hip strengthening (hip Ext , AB, Clamshell).
--- NOTE | 2020-10-10 16:52 | PT.OTN ---
Current Diagnoses Multiple sclerosis (10/10/20) Paraplegia, incomplete (10/10/20) Muscle weakness (generalized) (10/10/20) Physical Therapy Treatment Note PT-OP-A Visit Information Start: 05/28/20 18:12 Freq: Status: Active Protocol: Document 10/10/20 11:24 LRN (Rec: 10/10/20 12:15 LRN [id number]) Out-Patient Physical Therapy Visit Information Visit Information Visit Type Treatment Note Visit Start Time 11:24 Visit Stop Time 12:01 Total Visit Minutes 37 Visit Number 16 PT-OP-B Current Condition Start: 05/28/20 18:12 Freq: Status: Active Protocol: Document 06/03/20 12:35 LRN (Rec: 06/03/20 14:23 LRN [id number]) Current Condition History of Current Condition Onset Date Mar 2020 Current Complaints Balance is not good, harder to walk History of Current Condition Getting harder to walk and exercise due to weakness of LE 's, possibly due to multiple sclerosis progression. Can only walk 55' with walker with wheelchair pushed behind her. She reports R foot drop, cold feet and legs, but can feel difference between hot/ cold. Prior Treatments and Tests Physical therapy ending 09/2019 . Treatment Goals Patient/Caregiver Goals Pt goal is to be able to walk farther without legs going out from under her. Be able to get out of bed and walk to bathroom and back independently without wheelchair behind and using a walker, and to be able to walk with a walker without someone behind with wheelchair. Prior Functional Status Baseline Function- ADL's Needs Assist Baseline Function- Mobility Needs Assist Baseline Function- Gait Ambs with FWW with caregiver behind her with a wheelchair. Current Functional Impairments (Reported) Functional Limitations- ADL's Dependent on Wheelchair for mobility. Functional Limitations- Mobility/Gait Able to take 3 steps before the legs give out. Tries to do daily walking 25' x 2 per gait practice with walker and wheelchair behind her in case legs give out. Functional Limitations- Recreation/ LE ex's every other day. Hobbies Opposite days she showers. Personal Factors Other Personal Factors That May Effect MS, paresthesia of both feet, Therapy/Recovery mostly wheelchair bound, father had recent stroke, so mother who was her caregiver is now caregiving to her father. Pt now is depending on her aunt to assist her with mobility and home exercises. PT-OP-C Subjective Start: 05/28/20 18:12 Freq: Status: Active Protocol: Document 09/24/20 11:24 LRN (Rec: 09/24/20 12:29 LRN [id number]) OP-PT Subjective Patient Comments Patient Comments States she has not been able to exercise as much due to heat, house being painted and . PT-OP-D Balance Start: 06/03/20 12:34 Freq: Status: Active Protocol: Document 09/09/20 12:45 LRN (Rec: 09/09/20 13:33 LRN [id number]) Balance Tests Other Other Balance Tests Performed Standing in // bars without UE assist: 37 secs. PT-OP-E Functional Tests Start: 06/03/20 12:34 Freq: Status: Active Protocol: Document 08/27/20 13:32 LRN (Rec: 08/27/20 14:21 LRN [id number]) Functional Tests Five Times Sit to Stand Test Score 14 secs Comments Previous was 22 secs. PT-OP-G Mobility & Gait Start: 06/03/20 12:34 Freq: Status: Active Protocol: Document 08/07/20 10:39 LRN (Rec: 08/07/20 11:23 LRN [id number]) OP Gait Assessment Gait Gait Assistance Required: Contact Guard Assist Distance (Feet) 71 Able to Maintain Weight Bearing Status Yes During Gait Assistive Devices Assistive Device Front Wheeled Walker Comments Gait Comments R foot inverted 56 steps. PT-OP-K Range of Motion Start: 05/28/20 18:12 Freq: Status: Active Protocol: Document 06/03/20 12:35 LRN (Rec: 06/03/20 17:34 LRN [id number]) Hip Goniometric Range of Motion Hip Right Active Testing Position Prone Extension 5 Left Active Testing Position Prone Extension 7 Right Passive Testing Position Sup & Prone Straight Leg Raise 75 Internal Rotation 45 External Rotation 30 Comments Hip ER/IR measurements in prone Left Passive Testing Position Sup & Prone Straight Leg Raise 75 Internal Rotation 55 External Rotation 30 Comments Hip ER/IR measurements in prone Ankle and Foot Goniometric Range of Motion Ankle and Foot Right Active Testing Position Sitting Dorsiflexion with Knee Flexed 5 Left Active Testing Position Sitting Dorsiflexion with Knee Flexed 4 PT-OP-M Strength Start: 05/28/20 18:12 Freq: Status: Active Protocol: Document 06/03/20 12:35 LRN (Rec: 06/03/20 17:34 LRN [id number]) Hip Strength Hip Manual Muscle Testing Right Flexion (L2) 3 Fair Extension (S1) 2+ Poor+ Abduction 2+ Poor+ Adduction 2+ Poor+ Left Flexion (L2) 3 Fair Extension (S1) 3- Fair- Abduction 3 Fair Adduction 3+ Fair+ Knee Strength Knee Manual Muscle Testing Right Comments Generally 5/5 with MMT break testing in 45 deg's knee flex Left Comments Generally 5/5 with MMT break testing in 45 deg's knee flex Ankle/Foot Strength Ankle and Foot Manual Muscle Testing Right Dorsiflexion (L4) 5 Normal Plantarflexion (S1) 5 Normal Inversion 2+ Poor+ Eversion (S1) 5 Normal Left Dorsiflexion (L4) 5 Normal Plantarflexion (S1) 5 Normal Inversion 5 Normal Eversion (S1) 3+ Fair+ PT-OP-Q Treatments Start: 05/28/20 18:12 Freq: Status: Active Protocol: Document 10/10/20 11:24 LRN (Rec: 10/10/20 12:15 LRN [id number]) Therapeutic Exercises Sitting Exercises Trunk SB Sitting Exercise Name R Trunk SB - 12.5 ft from wall Side bilateral Resistance Blue strap Sport Cord Reps/Minutes x30 Trunk Ext Sitting Exercise Name Trunk Ext - 12.5 ft from wall Equipment Used Blue strap Sport Cord Reps/Minutes x30 Trunk rot Sitting Exercise Name Trunk rot Side bilateral Resistance 10# Dual Pully Reps/Minutes 30x Trunk flex Sitting Exercise Name Trunk Flex - 13 ft from wall Resistance Blue Sport Cord Reps/Minutes 30x Gait Training Gait Activity Walking with walker Description Walking with FWW Device Used FWW Level of Assistance SBA Surface Level Distance/Duration 84' + 21' = 105' total Comments 7% - 15% WBing through arms, from start to finish. Walking within LIKO walker lift Description Walking: for standing single leg for gait Device Used Liko lift Level of Assistance W/C behind Surface Level Distance/Duration 20 ft UE WBing 90%-100% Treatment Focus Walking w/o UE support Comments Held standing 1 leg due to pt fatigue. PT-OP-T Assessment and Plan Start: 05/28/20 18:12 Freq: Status: Active Protocol: Document 10/10/20 11:24 LRN (Rec: 10/10/20 12:15 LRN [id number]) Physical Therapy Assessment Goals Four Impairment Limited Gait mobility Short Term Goal (STG) Patient will walk 60 feet in / / bars without legs giving out with 1 rest. 08/22/20: Pt gait 100' w/ FWW w / 2 stop stand rests 97% WB BLE and 3% UE WB on FWW 57' w / pivot turn then 80% WB using UE support 20% on FWW, w/c follow. 07/02/20: 61 ft w/pivot before fatigue need sit using gait green jobs trainer 80% WB; 07/22/20: //bar 10 ft distance forward/back stepping using approx 10% UE WB on //bar assist x3.5 laps 100% WB w/ mirror self spacial awarenessc CGA) STG Duration 06/28/20 (08/07/20: GOAL MET) [employer] Goal (LTG) Patient will walk 75-100 feet with FWW with 2 rests. (08/27/20: Pt walked 127' with one rest stop) LTG Duration 10/01/20 (08/27/20: MET GOAL) Three Impairment Decreased Standing Balance Short Term Goal (STG) Patient will improve balance to be able to balance independently and walk 6 steps without need of wheelchair behind her for safety. (08/07/20: Pt gait 71' with FWW, 08/22/20: 100ft, 70 ft w/ FWW 97> 80% WB through LEs w/ w/c trail for safety). (09/09/20: Standing balance in // bars for 37 secs prior to fatigue) STG Duration 06/28/20 (08/22/20: Progressed) Retirement Goal (LTG) Patient will improve balance to stand independently and walk to bathroom with FWW without need of wheelchair behind her for safety. (08/07/20: Pt able to come to stand and stay standing independently with wheelchair behind). LTG Duration 10/01/20 (08/07/20: Sit<> Stand indep) Two Impairment Decreased Endurance Short Term Goal (STG) Improve 5XSTS (06/11/20: 22 secs). 08/07/20: progressing 20 secs, sit<>stands using BUE on w/c arm rests w/contact in standing for safety, provided CGA. (08/27/20: 14 secs) STG Duration (08/07/20: GOAL MET) [employer] Operator Goal (LTG) Pt will be able to walk a block 150' with multiple rests with FWW and w/c behind her for safety. (09/09/20: Pt walks in LIKO lift 125' with 1 sit rests) (09/24/20: Pt walks w/FWW 99') LTG Duration 10/01/20 (10/10/20: Progressing, pt walked 105') One Impairment Lacks complete HEP [employer] Cle[employer] Operator Goal (LTG) Pt will have a HEP for progression of strengthening for her to do with caregiver ( Aunt). 08/22/20 HEP: resisted rows, shld ext, TB trunk rotation and flexion, back ext, LAQ, HS curl TB, sit<> stands with UE support 8 reps 30 sec today. (08/22/20: Added abdominal strengthening: Lean backs in chair with toes on wall - ( reviewed on 08/27/20), sidelying hip abd/ clamshell) LTG Duration 10/01/20 (08/27/20: Progressed ) Assessment Summary Assessment Pt able to walk in Liko with 100% LE WBing ~ 10' total (of 20' trial) in a very unsteady manner with very poor balance . Pt R ankle noted as feeling funny after gait, but no abnormalities noted during gait in Liko, even during full WBing gait. Improved trunk strength may be helping her balance ability. Physical Therapy Plan Frequency and Duration Frequency of Treatment Every Other Week Plan of Care Start Date 09/09/20 Plan of Care End Date 03/21/21 Next Visit Focus/Plan Next Note Type Treatment Note Next Visit Plan Progress balance (100% LE WBing for walking), STS/ endurance and blalance (LIKO measure with bathroom scale pt 's wgt, for awareness of WB performance, see if she can identify proper % of LE WBing) . Gait for greater SLS weight bearing; Add static standing for increased WBing through legs and try standing hip strengthening. Add standing trunk strengthening, gait endurance. Pt to do at home: stretch to ankle DF, Quads & Hamstrings and hip strengthening (hip Ext , AB, Clamshell).
--- NOTE | 2020-10-22 16:35 | PT.OTN ---
Current Diagnoses Multiple sclerosis (10/22/20) Paraplegia, incomplete (10/22/20) Muscle weakness (generalized) (10/22/20) Physical Therapy Treatment Note PT-OP-A Visit Information Start: 05/28/20 18:12 Freq: Status: Active Protocol: Document 10/22/20 13:33 LRN (Rec: 10/22/20 14:20 LRN [id number]) Out-Patient Physical Therapy Visit Information Visit Information Visit Type Treatment Note Visit Start Time 13:33 Visit Stop Time 14:15 Total Visit Minutes 42 Visit Number 17 Evaluation Information Evaluation Date 06/03/20 Precautions Precautions Multiple Sclerosis, Paresthesia of both feet, HBP without diagnosis. PT-OP-B Current Condition Start: 05/28/20 18:12 Freq: Status: Active Protocol: Document 06/03/20 12:35 LRN (Rec: 06/03/20 14:23 LRN [id number]) Current Condition History of Current Condition Onset Date Mar 2020 Current Complaints Balance is not good, harder to walk History of Current Condition Getting harder to walk and exercise due to weakness of LE 's, possibly due to multiple sclerosis progression. Can only walk 55' with walker with wheelchair pushed behind her. She reports R foot drop, cold feet and legs, but can feel difference between hot/ cold. Prior Treatments and Tests Physical therapy ending 09/2019 . Treatment Goals Patient/Caregiver Goals Pt goal is to be able to walk farther without legs going out from under her. Be able to get out of bed and walk to bathroom and back independently without wheelchair behind and using a walker, and to be able to walk with a walker without someone behind with wheelchair. Prior Functional Status Baseline Function- ADL's Needs Assist Baseline Function- Mobility Needs Assist Baseline Function- Gait Ambs with FWW with caregiver behind her with a wheelchair. Current Functional Impairments (Reported) Functional Limitations- ADL's Dependent on Wheelchair for mobility. Functional Limitations- Mobility/Gait Able to take 3 steps before the legs give out. Tries to do daily walking 25' x 2 per gait practice with walker and wheelchair behind her in case legs give out. Functional Limitations- Recreation/ LE ex's every other day. Hobbies Opposite days she showers. Personal Factors Other Personal Factors That May Effect MS, paresthesia of both feet, Therapy/Recovery mostly wheelchair bound, father had recent stroke, so mother who was her caregiver is now caregiving to her father. Pt now is depending on her aunt to assist her with mobility and home exercises. PT-OP-C Subjective Start: 05/28/20 18:12 Freq: Status: Active Protocol: Document 10/22/20 13:33 LRN (Rec: 10/22/20 14:20 LRN [id number]) OP-PT Subjective Patient Comments Patient Comments States after last session the R groin region was painful and lasted 11 days and had really bad muscle spasms in R Quads and hip flexor. No nighttime ms spasms for the past 3 days and now has discomfort primarily with R knee ext and hip flex. PT-OP-D Balance Start: 06/03/20 12:34 Freq: Status: Active Protocol: Document 09/09/20 12:45 LRN (Rec: 09/09/20 13:33 LRN [id number]) Balance Tests Other Other Balance Tests Performed Standing in // bars without UE assist: 37 secs. PT-OP-E Functional Tests Start: 06/03/20 12:34 Freq: Status: Active Protocol: Document 08/27/20 13:32 LRN (Rec: 08/27/20 14:21 LRN [id number]) Functional Tests Five Times Sit to Stand Test Score 14 secs Comments Previous was 22 secs. PT-OP-G Mobility & Gait Start: 06/03/20 12:34 Freq: Status: Active Protocol: Document 08/07/20 10:39 LRN (Rec: 08/07/20 11:23 LRN [id number]) OP Gait Assessment Gait Gait Assistance Required: Contact Guard Assist Distance (Feet) 71 Able to Maintain Weight Bearing Status Yes During Gait Assistive Devices Assistive Device Front Wheeled Walker Comments Gait Comments R foot inverted 56 steps. PT-OP-K Range of Motion Start: 05/28/20 18:12 Freq: Status: Active Protocol: Document 06/03/20 12:35 LRN (Rec: 06/03/20 17:34 LRN [id number]) Hip Goniometric Range of Motion Hip Right Active Testing Position Prone Extension 5 Left Active Testing Position Prone Extension 7 Right Passive Testing Position Sup & Prone Straight Leg Raise 75 Internal Rotation 45 External Rotation 30 Comments Hip ER/IR measurements in prone Left Passive Testing Position Sup & Prone Straight Leg Raise 75 Internal Rotation 55 External Rotation 30 Comments Hip ER/IR measurements in prone Ankle and Foot Goniometric Range of Motion Ankle and Foot Right Active Testing Position Sitting Dorsiflexion with Knee Flexed 5 Left Active Testing Position Sitting Dorsiflexion with Knee Flexed 4 PT-OP-M Strength Start: 05/28/20 18:12 Freq: Status: Active Protocol: Document 06/03/20 12:35 LRN (Rec: 06/03/20 17:34 LRN [id number]) Hip Strength Hip Manual Muscle Testing Right Flexion (L2) 3 Fair Extension (S1) 2+ Poor+ Abduction 2+ Poor+ Adduction 2+ Poor+ Left Flexion (L2) 3 Fair Extension (S1) 3- Fair- Abduction 3 Fair Adduction 3+ Fair+ Knee Strength Knee Manual Muscle Testing Right Comments Generally 5/5 with MMT break testing in 45 deg's knee flex Left Comments Generally 5/5 with MMT break testing in 45 deg's knee flex Ankle/Foot Strength Ankle and Foot Manual Muscle Testing Right Dorsiflexion (L4) 5 Normal Plantarflexion (S1) 5 Normal Inversion 2+ Poor+ Eversion (S1) 5 Normal Left Dorsiflexion (L4) 5 Normal Plantarflexion (S1) 5 Normal Inversion 5 Normal Eversion (S1) 3+ Fair+ PT-OP-Q Treatments Start: 05/28/20 18:12 Freq: Status: Active Protocol: Document 10/22/20 13:33 LRN (Rec: 10/22/20 14:20 LRN [id number]) Therapeutic Exercises Supine Exercises Iliopsoas stretch Side right LE roll in/out Supine Exercise Name LE Roll in/out Side right Reps/Minutes 5x 2 Comments V > phys assist Hip AB Supine Exercise Name Hip AB Side right Reps/Minutes 2x 2 Comments Phys assist needed R Single leg Bridge Supine Exercise Name R single leg bridge Side right Reps/Minutes 5x Comments Extra time for positioning Hip Flex Supine Exercise Name Heel slides Side right Reps/Minutes 2x 2 Sitting Exercises Active hip AB/AD Side right Reps/Minutes 5x 2 Trunk SB Sitting Exercise Name R Trunk SB - 13' from wall Side bilateral Resistance Blue strap Sport Cord Reps/Minutes x30 Trunk Ext Sitting Exercise Name Trunk Ext - 13' from wall Equipment Used Blue strap Sport Cord Reps/Minutes x30 Trunk rot Sitting Exercise Name Trunk rot - 13' from wall Side bilateral Resistance 10# Dual Pully Reps/Minutes 30x Trunk flex Sitting Exercise Name Trunk Flex - Closest W/C wheel is 8' from wall Resistance Blue Sport Cord Reps/Minutes 30x knee extension Side right Reps/Minutes 3x 2 Manual Therapy Treatment Soft Tissue Mobilization R Ililpsoas Body Location R Iliopsoas Mobilization Type Trigger Point Release Intensity/Depth Moderate Body Position Supine Comments Not able to elicit a pain locatioin due to pt's poor sensation, but found tightness at ASIS and Groin for TrP treatment R Quad Body Location R Quad Mobilization Type Cross-Friction,Strumming Intensity/Depth Moderate Body Position Supine PT-OP-T Assessment and Plan Start: 05/28/20 18:12 Freq: Status: Active Protocol: Document 10/22/20 13:33 LRN (Rec: 10/22/20 14:20 LRN [id number]) Physical Therapy Assessment Goals Four Impairment Limited Gait mobility Short Term Goal (STG) Patient will walk 60 feet in / / bars without legs giving out with 1 rest. 08/22/20: Pt gait 100' w/ FWW w / 2 stop stand rests 97% WB BLE and 3% UE WB on FWW 57' w / pivot turn then 80% WB using UE support 20% on FWW, w/c follow. 07/02/20: 61 ft w/pivot before fatigue need sit using gait computer trainer 80% WB; 07/22/20: //bar 10 ft distance forward/back stepping using approx 10% UE WB on //bar assist x3.5 laps 100% WB w/ mirror self spacial awarenessc CGA) STG Duration 06/28/20 (08/07/20: GOAL MET) [employer] Goal (LTG) Patient will walk 75-100 feet with FWW with 2 rests. (08/27/20: Pt walked 127' with one rest stop) LTG Duration 10/01/20 (08/27/20: MET GOAL) Three Impairment Decreased Standing Balance Short Term Goal (STG) Patient will improve balance to be able to balance independently and walk 6 steps without need of wheelchair behind her for safety. (08/07/20: Pt gait 71' with FWW, 08/22/20: 100ft, 70 ft w/ FWW 97> 80% WB through LEs w/ w/c trail for safety). (09/09/20: Standing balance in // bars for 37 secs prior to fatigue) STG Duration 06/28/20 (08/22/20: Progressed) [employer] Goal (LTG) Patient will improve balance to stand independently and walk to bathroom with FWW without need of wheelchair behind her for safety. (08/07/20: Pt able to come to stand and stay standing independently with wheelchair behind). LTG Duration 10/01/20 (08/07/20: Sit<> Stand indep) Two Impairment Decreased Endurance Short Term Goal (STG) Improve 5XSTS (06/11/20: 22 secs). 08/07/20: progressing 20 secs, sit<>stands using BUE on w/c arm rests w/contact in standing for safety, provided CGA. (08/27/20: 14 secs) STG Duration (08/07/20: GOAL MET) [facility] Goal (LTG) Pt will be able to walk a block 150' with multiple rests with FWW and w/c behind her for safety. (09/09/20: Pt walks in LIKO lift 125' with 1 sit rests) (09/24/20: Pt walks w/FWW 99') LTG Duration 10/01/20 (10/10/20: Progressing, pt walked 105') One Impairment Lacks complete HEP [facility] Goal (LTG) Pt will have a HEP for progression of strengthening for her to do with caregiver ( Aunt). 08/22/20 HEP: resisted rows, shld ext, TB trunk rotation and flexion, back ext, LAQ, HS curl TB, sit<> stands with UE support 8 reps 30 sec today. (08/22/20: Added abdominal strengthening: Lean backs in chair with toes on wall - ( reviewed on 08/27/20), sidelying hip abd/ clamshell) LTG Duration 10/01/20 (08/27/20: Progressed ) Progress Towards Goals Progress Towards Goals Slow Progress - Other Progress Comments Slow progress due to new onset of possible R hip flexor strain. Assessment Summary Assessment ............Held progression today due to pt recovering from R anterior hip pain. Pt presents with strain of R hip flexors (Quad & Iliopsoas) with pain on active knee ext and hip flex movement. She was having ms spasms and night and during day for a few days after last session, but hasn' t had present for the past 3 days. Pt may have overworked her hip muscles last session; therefore needs to recover from strain. Pt has poor sensation in the the lower 1/2 of body; therefore stretch to Ilipsoas manually and physically was with reservation. No muscle spasms with only 2 reps of exercise. Physical Therapy Plan Frequency and Duration Frequency of Treatment Every Other Week Plan of Care Start Date 09/09/20 Plan of Care End Date 03/21/21 Next Visit Focus/Plan Next Note Type Treatment Note Next Visit Plan When R hip flexor strain is improved, progress balance ( 100% LE WBing for walking), STS/endurance and blalance ( LIKO measure with bathroom scale pt's wgt, for awareness of WB performance, see if she can identify proper % of LE WBing). Gait for greater SLS weight bearing; Add static standing for increased WBing through legs and try standing hip strengthening. Add standing trunk strengthening, gait endurance. Pt to do at home: stretch to ankle DF, Quads & Hamstrings and hip strengthening (hip Ext , AB, Clamshell).
--- NOTE | 2020-11-19 17:23 | PT.OTN ---
Current Diagnoses Multiple sclerosis (11/19/20) Paraplegia, incomplete (11/19/20) Muscle weakness (generalized) (11/19/20) Physical Therapy Treatment Note PT-OP-A Visit Information Start: 05/28/20 18:12 Freq: Status: Active Protocol: Document 11/19/20 12:48 LRN (Rec: 11/19/20 13:33 LRN [id number]) Out-Patient Physical Therapy Visit Information Visit Information Visit Type Treatment Note Visit Start Time 12:48 Visit Stop Time 13:30 Total Visit Minutes 42 Visit Number 18 Evaluation Information Evaluation Date 06/03/20 Precautions Precautions Multiple Sclerosis, Paresthesia of both feet, HBP without diagnosis. PT-OP-B Current Condition Start: 05/28/20 18:12 Freq: Status: Active Protocol: Document 06/03/20 12:35 LRN (Rec: 06/03/20 14:23 LRN [id number]) Current Condition History of Current Condition Onset Date Mar 2020 Current Complaints Balance is not good, harder to walk History of Current Condition Getting harder to walk and exercise due to weakness of LE 's, possibly due to multiple sclerosis progression. Can only walk 55' with walker with wheelchair pushed behind her. She reports R foot drop, cold feet and legs, but can feel difference between hot/ cold. Prior Treatments and Tests Physical therapy ending 09/2019 . Treatment Goals Patient/Caregiver Goals Pt goal is to be able to walk farther without legs going out from under her. Be able to get out of bed and walk to bathroom and back independently without wheelchair behind and using a walker, and to be able to walk with a walker without someone behind with wheelchair. Prior Functional Status Baseline Function- ADL's Needs Assist Baseline Function- Mobility Needs Assist Baseline Function- Gait Ambs with FWW with caregiver behind her with a wheelchair. Current Functional Impairments (Reported) Functional Limitations- ADL's Dependent on Wheelchair for mobility. Functional Limitations- Mobility/Gait Able to take 3 steps before the legs give out. Tries to do daily walking 25' x 2 per gait practice with walker and wheelchair behind her in case legs give out. Functional Limitations- Recreation/ LE ex's every other day. Hobbies Opposite days she showers. Personal Factors Other Personal Factors That May Effect MS, paresthesia of both feet, Therapy/Recovery mostly wheelchair bound, father had recent stroke, so mother who was her caregiver is now caregiving to her father. Pt now is depending on her aunt to assist her with mobility and home exercises. PT-OP-C Subjective Start: 05/28/20 18:12 Freq: Status: Active Protocol: Document 11/19/20 12:48 LRN (Rec: 11/19/20 13:33 LRN [id number]) OP-PT Subjective Patient Comments Patient Comments States she will not be back for a month due to mom and aunt on vacation. States she has had R hip sharp ache and the entire leg was aching. Reports she was having spasms in the R LE. Most night has a little pain. Has been walking alright. PT-OP-D Balance Start: 06/03/20 12:34 Freq: Status: Active Protocol: Document 09/09/20 12:45 LRN (Rec: 09/09/20 13:33 LRN [id number]) Balance Tests Other Other Balance Tests Performed Standing in // bars without UE assist: 37 secs. PT-OP-E Functional Tests Start: 06/03/20 12:34 Freq: Status: Active Protocol: Document 08/27/20 13:32 LRN (Rec: 08/27/20 14:21 LRN [id number]) Functional Tests Five Times Sit to Stand Test Score 14 secs Comments Previous was 22 secs. PT-OP-G Mobility & Gait Start: 06/03/20 12:34 Freq: Status: Active Protocol: Document 08/07/20 10:39 LRN (Rec: 08/07/20 11:23 LRN [id number]) OP Gait Assessment Gait Gait Assistance Required: Contact Guard Assist Distance (Feet) 71 Able to Maintain Weight Bearing Status Yes During Gait Assistive Devices Assistive Device Front Wheeled Walker Comments Gait Comments R foot inverted 56 steps. PT-OP-K Range of Motion Start: 05/28/20 18:12 Freq: Status: Active Protocol: Document 06/03/20 12:35 LRN (Rec: 06/03/20 17:34 LRN [id number]) Hip Goniometric Range of Motion Hip Right Active Testing Position Prone Extension 5 Left Active Testing Position Prone Extension 7 Right Passive Testing Position Sup & Prone Straight Leg Raise 75 Internal Rotation 45 External Rotation 30 Comments Hip ER/IR measurements in prone Left Passive Testing Position Sup & Prone Straight Leg Raise 75 Internal Rotation 55 External Rotation 30 Comments Hip ER/IR measurements in prone Ankle and Foot Goniometric Range of Motion Ankle and Foot Right Active Testing Position Sitting Dorsiflexion with Knee Flexed 5 Left Active Testing Position Sitting Dorsiflexion with Knee Flexed 4 PT-OP-M Strength Start: 05/28/20 18:12 Freq: Status: Active Protocol: Document 06/03/20 12:35 LRN (Rec: 06/03/20 17:34 LRN [id number]) Hip Strength Hip Manual Muscle Testing Right Flexion (L2) 3 Fair Extension (S1) 2+ Poor+ Abduction 2+ Poor+ Adduction 2+ Poor+ Left Flexion (L2) 3 Fair Extension (S1) 3- Fair- Abduction 3 Fair Adduction 3+ Fair+ Knee Strength Knee Manual Muscle Testing Right Comments Generally 5/5 with MMT break testing in 45 deg's knee flex Left Comments Generally 5/5 with MMT break testing in 45 deg's knee flex Ankle/Foot Strength Ankle and Foot Manual Muscle Testing Right Dorsiflexion (L4) 5 Normal Plantarflexion (S1) 5 Normal Inversion 2+ Poor+ Eversion (S1) 5 Normal Left Dorsiflexion (L4) 5 Normal Plantarflexion (S1) 5 Normal Inversion 5 Normal Eversion (S1) 3+ Fair+ PT-OP-Q Treatments Start: 05/28/20 18:12 Freq: Status: Active Protocol: Document 11/19/20 12:48 LRN (Rec: 11/19/20 13:33 LRN [id number]) Therapeutic Exercises Supine Exercises Quad stretch Supine Exercise Name Supine lying Quad stretch Side bilateral Reps/Minutes 3' Iliopsoas stretch Supine Exercise Name Starting sittin at Edge of Plinth Side bilateral Reps/Minutes 3' Sitting Exercises Sit to Stand Sitting Exercise Name Sit<>Stand Reps/Minutes 9x Trunk SB Sitting Exercise Name R Trunk SB - 13' from wall Side bilateral Resistance Blue strap Sport Cord Reps/Minutes x30 Trunk Ext Sitting Exercise Name Trunk Ext - 13' from wall Equipment Used Blue strap Sport Cord Reps/Minutes x30 Trunk rot Sitting Exercise Name Trunk rot - 3' from Dual Kumar Side bilateral Resistance 10# Dual Pully Reps/Minutes 30x Trunk flex Sitting Exercise Name Trunk Flex - Closest W/C wheel is 12.5' from wall Resistance Blue Sport Cord Reps/Minutes 30x Gait Training Gait Activity Walking with walker Description Walking with FWW Device Used FWW Level of Assistance Walker closely behind Surface Level Distance/Duration 63' Comments 70% WBing through arms, from start to finish. PT-OP-T Assessment and Plan Start: 05/28/20 18:12 Freq: Status: Active Protocol: Document 11/19/20 12:48 LRN (Rec: 11/19/20 13:33 LRN [id number]) Physical Therapy Assessment Goals Three Impairment Decreased Standing Balance Short Term Goal (STG) Patient will improve balance to be able to balance independently and walk 6 steps without need of wheelchair behind her for safety. (08/07/20: Pt gait 71' with FWW, 08/22/20: 100ft, 70 ft w/ FWW 97> 80% WB through LEs w/ w/c trail for safety). (09/09/20: Standing balance in // bars for 37 secs prior to fatigue) STG Duration 06/28/20 (08/22/20: Progressed) Cashier Self Service [employer]oline Goal (LTG) Patient will improve balance to stand independently and walk to bathroom with FWW without need of wheelchair behind her for safety. (08/07/20: Pt able to come to stand and stay standing independently with wheelchair behind). LTG Duration 10/01/20 (08/07/20: Sit<> Stand indep) Two Impairment Decreased Endurance Short Term Goal (STG) Improve 5XSTS (06/11/20: 22 secs). 08/07/20: progressing 20 secs, sit<>stands using BUE on w/c arm rests w/contact in standing for safety, provided CGA. (08/27/20: 14 secs) STG Duration (08/07/20: GOAL MET) Detention Goal (LTG) Pt will be able to walk a block 150' with multiple rests with FWW and w/c behind her for safety. (09/09/20: Pt walks in LIKO lift 125' with 1 sit rests) (09/24/20: Pt walks w/FWW 99') LTG Duration 10/01/20 (10/10/20: Progressing, pt walked 105') One Impairment Lacks complete HEP Cashier Self Service [employer] Goal (LTG) Pt will have a HEP for progression of strengthening for her to do with caregiver ( Aunt). 08/22/20 HEP: resisted rows, shld ext, TB trunk rotation and flexion, back ext, LAQ, HS curl TB, sit<> stands with UE support 8 reps 30 sec today. (08/22/20: Added abdominal strengthening: Lean backs in chair with toes on wall - ( reviewed on 08/27/20), sidelying hip abd/ clamshell) LTG Duration 10/01/20 (08/27/20: Progressed ) Assessment Summary Assessment Pt R hip pain is lessening, and her R groin pain has returned to baseline of 0/10. Not able to walk with LIKO due to equipment not available . Pt caregivers are gone for 1 month; therefore progress may be slow or worsened if she is not able to exercise. Physical Therapy Plan Frequency and Duration Frequency of Treatment Every Other Week Plan of Care Start Date 09/09/20 Plan of Care End Date 03/21/21 Next Visit Focus/Plan Next Note Type Treatment Note Next Visit Plan R hip pain has lessened; therefore gently progress balance (100% LE WBing for walking), monitor 5TSTS/ endurance and balance (LIKO measure with bathroom scale pt 's wgt, for awareness of WB performance, see if she can identify proper % of LE WBing) . Gait for greater SLS weight bearing; Add static standing for increased WBing through legs and try standing hip strengthening. Add standing trunk strengthening, gait endurance. Pt to do at home: stretch to ankle DF, Quads & Hamstrings and hip strengthening (hip Ext , AB, Clamshell).
--- NOTE | 2020-12-24 13:48 | PT.OTN ---
Current Diagnoses Multiple sclerosis (12/24/20) Paraplegia, incomplete (12/24/20) Muscle weakness (generalized) (12/24/20) Physical Therapy Treatment Note PT-OP-A Visit Information Start: 05/28/20 18:12 Freq: Status: Active Protocol: Document 12/24/20 13:03 SP (Rec: 12/24/20 13:51 SP [id number]) Out-Patient Physical Therapy Visit Information Visit Information Visit Type Treatment Note Visit Start Time 13:03 Visit Stop Time 13:48 Total Visit Minutes 45 Visit Number 19 Number of PINSETTER MECHANIC HELPER Visits 1 Evaluation Information Evaluation Date 06/03/20 Precautions Precautions Multiple Sclerosis, Paresthesia of both feet, HBP without diagnosis. PT-OP-B Current Condition Start: 05/28/20 18:12 Freq: Status: Active Protocol: Document 06/03/20 12:35 LRN (Rec: 06/03/20 14:23 LRN [id number]) Current Condition History of Current Condition Onset Date Mar 2020 Current Complaints Balance is not good, harder to walk History of Current Condition Getting harder to walk and exercise due to weakness of LE 's, possibly due to multiple sclerosis progression. Can only walk 55' with walker with wheelchair pushed behind her. She reports R foot drop, cold feet and legs, but can feel difference between hot/ cold. Prior Treatments and Tests Physical therapy ending 09/2019 . Treatment Goals Patient/Caregiver Goals Pt goal is to be able to walk farther without legs going out from under her. Be able to get out of bed and walk to bathroom and back independently without wheelchair behind and using a walker, and to be able to walk with a walker without someone behind with wheelchair. Prior Functional Status Baseline Function- ADL's Needs Assist Baseline Function- Mobility Needs Assist Baseline Function- Gait Ambs with FWW with caregiver behind her with a wheelchair. Current Functional Impairments (Reported) Functional Limitations- ADL's Dependent on Wheelchair for mobility. Functional Limitations- Mobility/Gait Able to take 3 steps before the legs give out. Tries to do daily walking 25' x 2 per gait practice with walker and wheelchair behind her in case legs give out. Functional Limitations- Recreation/ LE ex's every other day. Hobbies Opposite days she showers. Personal Factors Other Personal Factors That May Effect MS, paresthesia of both feet, Therapy/Recovery mostly wheelchair bound, father had recent stroke, so mother who was her caregiver is now caregiving to her father. Pt now is depending on her aunt to assist her with mobility and home exercises. PT-OP-C Subjective Start: 05/28/20 18:12 Freq: Status: Active Protocol: Document 12/24/20 13:03 SP (Rec: 12/24/20 13:51 SP [id number]) OP-PT Subjective Patient Comments Patient Comments Pt states hasn't been here in a month due to friend out of town and not having ride. Compliant with exercises and friend helped with stretching. Pt reported having discomfort in R shld PT-OP-D Balance Start: 06/03/20 12:34 Freq: Status: Active Protocol: Document 09/09/20 12:45 LRN (Rec: 09/09/20 13:33 LRN [id number]) Balance Tests Other Other Balance Tests Performed Standing in // bars without UE assist: 37 secs. PT-OP-E Functional Tests Start: 06/03/20 12:34 Freq: Status: Active Protocol: Document 08/27/20 13:32 LRN (Rec: 08/27/20 14:21 LRN [id number]) Functional Tests Five Times Sit to Stand Test Score 14 secs Comments Previous was 22 secs. PT-OP-G Mobility & Gait Start: 06/03/20 12:34 Freq: Status: Active Protocol: Document 08/07/20 10:39 LRN (Rec: 08/07/20 11:23 LRN [id number]) OP Gait Assessment Gait Gait Assistance Required: Contact Guard Assist Distance (Feet) 71 Able to Maintain Weight Bearing Status Yes During Gait Assistive Devices Assistive Device Front Wheeled Walker Comments Gait Comments R foot inverted 56 steps. PT-OP-K Range of Motion Start: 05/28/20 18:12 Freq: Status: Active Protocol: Document 06/03/20 12:35 LRN (Rec: 06/03/20 17:34 LRN [id number]) Hip Goniometric Range of Motion Hip Right Active Testing Position Prone Extension 5 Left Active Testing Position Prone Extension 7 Right Passive Testing Position Sup & Prone Straight Leg Raise 75 Internal Rotation 45 External Rotation 30 Comments Hip ER/IR measurements in prone Left Passive Testing Position Sup & Prone Straight Leg Raise 75 Internal Rotation 55 External Rotation 30 Comments Hip ER/IR measurements in prone Ankle and Foot Goniometric Range of Motion Ankle and Foot Right Active Testing Position Sitting Dorsiflexion with Knee Flexed 5 Left Active Testing Position Sitting Dorsiflexion with Knee Flexed 4 PT-OP-M Strength Start: 05/28/20 18:12 Freq: Status: Active Protocol: Document 06/03/20 12:35 LRN (Rec: 06/03/20 17:34 LRN [id number]) Hip Strength Hip Manual Muscle Testing Right Flexion (L2) 3 Fair Extension (S1) 2+ Poor+ Abduction 2+ Poor+ Adduction 2+ Poor+ Left Flexion (L2) 3 Fair Extension (S1) 3- Fair- Abduction 3 Fair Adduction 3+ Fair+ Knee Strength Knee Manual Muscle Testing Right Comments Generally 5/5 with MMT break testing in 45 deg's knee flex Left Comments Generally 5/5 with MMT break testing in 45 deg's knee flex Ankle/Foot Strength Ankle and Foot Manual Muscle Testing Right Dorsiflexion (L4) 5 Normal Plantarflexion (S1) 5 Normal Inversion 2+ Poor+ Eversion (S1) 5 Normal Left Dorsiflexion (L4) 5 Normal Plantarflexion (S1) 5 Normal Inversion 5 Normal Eversion (S1) 3+ Fair+ PT-OP-Q Treatments Start: 05/28/20 18:12 Freq: Status: Active Protocol: Document 12/24/20 13:03 SP (Rec: 12/24/20 13:51 SP [id number]) Therapeutic Exercises Sitting Exercises Trunk SB Sitting Exercise Name R Trunk SB - 13' from wall Side bilateral Resistance Blue strap Sport Cord Reps/Minutes x30 Trunk Ext Sitting Exercise Name Trunk Ext - 13' from wall Equipment Used Blue strap Sport Cord Reps/Minutes x30 Trunk flex Sitting Exercise Name Trunk Flex - Closest W/C wheel is 12.5' from wall Resistance Blue Sport Cord Reps/Minutes 30x Gait Training Gait Activity Walking with walker Description Walking with FWW Level of Assistance CGA at , therapist follow with w/c Surface Level Distance/Duration 106', 89' Treatment Focus increase LE WB gait Comments 10%> 30 % WBing through arms, from start to finish each distance. Manual Therapy Treatment Manual Techniques PROM Type HS, quad, hip ER stretch Reps/Duration 30 ' x3 Comments manual supine/ prone PT-OP-T Assessment and Plan Start: 05/28/20 18:12 Freq: Status: Active Protocol: Document 12/24/20 13:03 SP (Rec: 12/24/20 13:51 SP [id number]) Physical Therapy Assessment Goals Three Impairment Decreased Standing Balance Short Term Goal (STG) Patient will improve balance to be able to balance independently and walk 6 steps without need of wheelchair behind her for safety. (08/07/20: Pt gait 71' with FWW, 08/22/20: 100ft, 70 ft w/ FWW 97> 80% WB through LEs w/ w/c trail for safety). (09/09/20: Standing balance in // bars for 37 secs prior to fatigue) 12/24/20: gait 106', 89' using FWW 10%> 30% UE WB reported. STG Duration 06/28/20 (12/24/20: Progressed) Retirement Goal (LTG) Patient will improve balance to stand independently and walk to bathroom with FWW without need of wheelchair behind her for safety. (08/07/20: Pt able to come to stand and stay standing independently with wheelchair behind). LTG Duration 10/01/20 (08/07/20: Sit<> Stand indep) Two Impairment Decreased Endurance Short Term Goal (STG) Improve 5XSTS (06/11/20: 22 secs). 08/07/20: progressing 20 secs, sit<>stands using BUE on w/c arm rests w/contact in standing for safety, provided CGA. (08/27/20: 14 secs) STG Duration (08/07/20: GOAL MET) Retirement Goal (LTG) Pt will be able to walk a block 150' with multiple rests with FWW and w/c behind her for safety. (09/09/20: Pt walks in LIKO lift 125' with 1 sit rests) (09/24/20: Pt walks w/FWW 99') LTG Duration 10/01/20 (10/10/20: Progressing, pt walked 105') One Impairment Lacks complete HEP Continuous Improvement Consultant Goal (LTG) Pt will have a HEP for progression of strengthening for her to do with caregiver ( Aunt). 08/22/20 HEP: resisted rows, shld ext, TB trunk rotation and flexion, back ext, LAQ, HS curl TB, sit<> stands with UE support 8 reps 30 sec today. (08/22/20: Added abdominal strengthening: Lean backs in chair with toes on wall - ( reviewed on 08/27/20), sidelying hip abd/ clamshell) LTG Duration 10/01/20 (08/27/20: Progressed ) Assessment Summary Assessment Pt able to increase distance gait with decreased BUE WB on FWW, did need use LIKO gait link trainer operator today. Pt reported no much groin and hip pain. Physical Therapy Plan Frequency and Duration Frequency of Treatment Every Other Week Plan of Care Start Date 09/09/20 Plan of Care End Date 03/21/21 Therapeutic Interventions Therapeutic Interventions Balance Training,Gait Training ,Home Exercise Program, Neuromuscular Re-education, Patient/Caregiver Education, Self-Care/Home Management, Therapeutic Exercises Discharge Physical Therapy Discharge Reasons Plateau in Progress Discharge Comments Discussed goals with pt and we agreed that she can continue with ex's at home to progress her LE endurance and strength. She has gained much confidence in her transfer ability and is walking daily at home with the help of her mother providing her wheelchair behind her as she walks. The pt is well aware of her home ex's and will be able to return towards the end of the year if other therapy is needed. Thank you for your referral. Next Visit Focus/Plan Next Note Type Treatment Note Next Visit Plan recheck STS next tx. Continue distance and less UE WB required using FWW gait. POC: R hip pain has lessened; therefore gently progress balance (100% LE WBing for walking), monitor 5TSTS/ endurance and balance (LIKO measure with bathroom scale pt 's wgt, for awareness of WB performance, see if she can identify proper % of LE WBing) . Gait for greater SLS weight bearing; Add static standing for increased WBing through legs and try standing hip strengthening. Add standing trunk strengthening, gait endurance. Pt to do at home: stretch to ankle DF, Quads & Hamstrings and hip strengthening (hip Ext , AB, Clamshell).
--- NOTE | 2021-01-07 14:10 | PT.OTN ---
Current Diagnoses Multiple sclerosis (01/07/21) Paraplegia, incomplete (01/07/21) Muscle weakness (generalized) (01/07/21) Physical Therapy Treatment Note PT-OP-A Visit Information Start: 05/28/20 18:12 Freq: Status: Active Protocol: Document 01/07/21 12:49 LRN (Rec: 01/07/21 14:02 LRN [id number]) Out-Patient Physical Therapy Visit Information Visit Information Visit Type Progress Note Visit Note 6 after last PN Visit Start Time 12:49 Visit Stop Time 13:31 Total Visit Minutes 42 Visit Number 20 Evaluation Information Evaluation Date 06/03/20 Precautions Precautions Multiple Sclerosis, Paresthesia of both feet, HBP without diagnosis. PT-OP-B Current Condition Start: 05/28/20 18:12 Freq: Status: Active Protocol: Document 06/03/20 12:35 LRN (Rec: 06/03/20 14:23 LRN [id number]) Current Condition History of Current Condition Onset Date Mar 2020 Current Complaints Balance is not good, harder to walk History of Current Condition Getting harder to walk and exercise due to weakness of LE 's, possibly due to multiple sclerosis progression. Can only walk 55' with walker with wheelchair pushed behind her. She reports R foot drop, cold feet and legs, but can feel difference between hot/ cold. Prior Treatments and Tests Physical therapy ending 09/2019 . Treatment Goals Patient/Caregiver Goals Pt goal is to be able to walk farther without legs going out from under her. Be able to get out of bed and walk to bathroom and back independently without wheelchair behind and using a walker, and to be able to walk with a walker without someone behind with wheelchair. Prior Functional Status Baseline Function- ADL's Needs Assist Baseline Function- Mobility Needs Assist Baseline Function- Gait Ambs with FWW with caregiver behind her with a wheelchair. Current Functional Impairments (Reported) Functional Limitations- ADL's Dependent on Wheelchair for mobility. Functional Limitations- Mobility/Gait Able to take 3 steps before the legs give out. Tries to do daily walking 25' x 2 per gait practice with walker and wheelchair behind her in case legs give out. Functional Limitations- Recreation/ LE ex's every other day. Hobbies Opposite days she showers. Personal Factors Other Personal Factors That May Effect MS, paresthesia of both feet, Therapy/Recovery mostly wheelchair bound, father had recent stroke, so mother who was her caregiver is now caregiving to her father. Pt now is depending on her aunt to assist her with mobility and home exercises. PT-OP-C Subjective Start: 05/28/20 18:12 Freq: Status: Active Protocol: Document 01/07/21 12:49 LRN (Rec: 01/07/21 14:02 LRN [id number]) OP-PT Subjective Patient Comments Patient Comments R hip doesn't hurt, but when she lays down the hip pops and she feels like it is a little out of joint. Doing more transfers to couch. PT-OP-D Balance Start: 06/03/20 12:34 Freq: Status: Active Protocol: Document 09/09/20 12:45 LRN (Rec: 09/09/20 13:33 LRN [id number]) Balance Tests Other Other Balance Tests Performed Standing in // bars without UE assist: 37 secs. PT-OP-E Functional Tests Start: 06/03/20 12:34 Freq: Status: Active Protocol: Document 01/07/21 12:49 LRN (Rec: 01/07/21 14:02 LRN [id number]) Functional Tests Five Times Sit to Stand Test Score 12 secs Comments Previous was 14 secs. STS from W/C used arm rests. PT-OP-G Mobility & Gait Start: 06/03/20 12:34 Freq: Status: Active Protocol: Document 08/07/20 10:39 LRN (Rec: 08/07/20 11:23 LRN [id number]) OP Gait Assessment Gait Gait Assistance Required: Contact Guard Assist Distance (Feet) 71 Able to Maintain Weight Bearing Status Yes During Gait Assistive Devices Assistive Device Front Wheeled Walker Comments Gait Comments R foot inverted 56 steps. PT-OP-K Range of Motion Start: 05/28/20 18:12 Freq: Status: Active Protocol: Document 06/03/20 12:35 LRN (Rec: 06/03/20 17:34 LRN [id number]) Hip Goniometric Range of Motion Hip Right Active Testing Position Prone Extension 5 Left Active Testing Position Prone Extension 7 Right Passive Testing Position Sup & Prone Straight Leg Raise 75 Internal Rotation 45 External Rotation 30 Comments Hip ER/IR measurements in prone Left Passive Testing Position Sup & Prone Straight Leg Raise 75 Internal Rotation 55 External Rotation 30 Comments Hip ER/IR measurements in prone Ankle and Foot Goniometric Range of Motion Ankle and Foot Right Active Testing Position Sitting Dorsiflexion with Knee Flexed 5 Left Active Testing Position Sitting Dorsiflexion with Knee Flexed 4 PT-OP-M Strength Start: 05/28/20 18:12 Freq: Status: Active Protocol: Document 06/03/20 12:35 LRN (Rec: 06/03/20 17:34 LRN [id number]) Hip Strength Hip Manual Muscle Testing Right Flexion (L2) 3 Fair Extension (S1) 2+ Poor+ Abduction 2+ Poor+ Adduction 2+ Poor+ Left Flexion (L2) 3 Fair Extension (S1) 3- Fair- Abduction 3 Fair Adduction 3+ Fair+ Knee Strength Knee Manual Muscle Testing Right Comments Generally 5/5 with MMT break testing in 45 deg's knee flex Left Comments Generally 5/5 with MMT break testing in 45 deg's knee flex Ankle/Foot Strength Ankle and Foot Manual Muscle Testing Right Dorsiflexion (L4) 5 Normal Plantarflexion (S1) 5 Normal Inversion 2+ Poor+ Eversion (S1) 5 Normal Left Dorsiflexion (L4) 5 Normal Plantarflexion (S1) 5 Normal Inversion 5 Normal Eversion (S1) 3+ Fair+ PT-OP-Q Treatments Start: 05/28/20 18:12 Freq: Status: Active Protocol: Document 01/07/21 12:49 LRN (Rec: 01/07/21 14:02 LRN [id number]) Therapeutic Exercises Sitting Exercises Sit to Stand Sitting Exercise Name Sit<>Stand Equipment Used Wheelchair arm supports/GB Reps/Minutes 10x Trunk SB Sitting Exercise Name R Trunk SB - 13.4' from wall Side bilateral Resistance Blue strap Sport Cord Reps/Minutes x30 Trunk Ext Sitting Exercise Name Trunk Ext - 13.5' from wall Equipment Used Blue strap Sport Cord Reps/Minutes x30 Trunk rot Sitting Exercise Name Trunk rot - 3' from Dual Kumar Side bilateral Resistance 10# Dual Pully Reps/Minutes 30x Trunk flex Sitting Exercise Name Trunk Flex - Closest wheel is 12.7' from wall (COG 14' from wall) Resistance Blue Sport Cord Reps/Minutes 30x Gait Training Gait Activity Walking within LIKO walker lift Description Walking & for monitoring of WBing status during gait Device Used Liko lift Level of Assistance W/C behind Surface Level Distance/Duration 97.2 ft UE WBing measure at 70% Treatment Focus Walking with reduced UE support PT-OP-T Assessment and Plan Start: 05/28/20 18:12 Freq: Status: Active Protocol: Document 01/07/21 12:49 LRN (Rec: 01/07/21 14:02 LRN [id number]) Physical Therapy Assessment Rehab Potential Rehabilitation Potential Good Evaluation Complexity Number of Personal Factors/Comorbidities 3 or More Number of Body Systems Impaired 4 or More Clinical Presentation at Evaluation Evolving Impairments Impairments Activity Tolerance,Balance, Gait,Strength Other Impairments Diagnosed with Multiple Sclerosis. Goals Four Impairment Limited Gait mobility Short Term Goal (STG) Patient will walk 60 feet in / / bars without legs giving out with 1 rest. 08/22/20: Pt gait 100' w/ FWW w / 2 stop stand rests 97% WB BLE and 3% UE WB on FWW 57' w / pivot turn then 80% WB using UE support 20% on FWW, w/c follow. 07/02/20: 61 ft w/pivot before fatigue need sit using gait athletic trainer 80% WB; 07/22/20: //bar 10 ft distance forward/back stepping using approx 10% UE WB on //bar assist x3.5 laps 100% WB w/ mirror self spacial awarenessc CGA) STG Duration 06/28/20 (08/07/20: GOAL MET) Beverage Steward Goal (LTG) Patient will walk 75-100 feet with FWW with 2 rests. (08/27/20: Pt walked 127' with one rest stop) LTG Duration 10/01/20 (08/27/20: MET GOAL) Three Impairment Decreased Standing Balance Short Term Goal (STG) Patient will improve balance to be able to balance independently and walk 6 steps without need of wheelchair behind her for safety. (08/07/20: Pt gait 71' with FWW, 08/22/20: 100ft, 70 ft w/ FWW 97> 80% WB through LEs w/ w/c trail for safety). (09/09/20: Standing balance in // bars for 37 secs prior to fatigue) 12/24/20: gait 106', 89' using FWW 10%> 30% UE WB reported. STG Duration 01/20/21 (12/24/20: Progressed ) Custodial Goal (LTG) Patient will improve balance to stand independently and walk to bathroom with FWW without need of wheelchair behind her for safety. (08/07/20: Pt able to come to stand and stay standing independently with wheelchair behind). (01/07/21: Pt reports transferring, stand pivot, independently.) LTG Duration 03/21/21 (08/07/20: Parially met goal: Sit<>Stand indep) Two Impairment Decreased Endurance Short Term Goal (STG) Improve 5XSTS (06/11/20: 22 secs). 08/07/20: progressing 20 secs, sit<>stands using BUE on w/c arm rests w/contact in standing for safety, provided CGA. (08/27/20: 14 secs) 01/07/21: 12 secs) STG Duration (08/07/20: GOAL MET) Custodial Goal (LTG) Pt will be able to walk a block 150' with multiple rests with FWW and w/c behind her for safety. (09/09/20: Pt walks in LIKO lift 125' with 1 sit rests) (09/24/20: Pt walks w/FWW 99') LTG Duration 03/21/21 (10/10/20: Progressing, pt walked 105') One Impairment Lacks complete HEP Custodial Goal (LTG) Pt will have a HEP for progression of strengthening for her to do with caregiver ( Aunt). 08/22/20 HEP: resisted rows, shld ext, TB trunk rotation and flexion, back ext, LAQ, HS curl TB, sit<> stands with UE support 8 reps 30 sec today. (08/22/20: Added abdominal strengthening: Lean backs in chair with toes on wall - ( reviewed on 08/27/20), sidelying hip abd/ clamshell) LTG Duration 03/21/21 (08/27/20: Progressed) Progress Towards Goals Progress Comments Pt able to tolerate a little more resistance with trunk strengthening. 5XSTS was in 12 secs ( previously was in 14 secs). Assessment Summary Assessment 5XSTS is 12 secs indicating improved endurance (10XSTS is 28.17 secs with lessening of upright standing as exercise progressed). Pt legs fatigued at end of STS's. Pt tolerated less gait activity due to legs fatigued. WBing with LIKO lift is ~190# with each leg on stance phase. Pt weight as measured with bathroom scale is 265#. Pt legs appeared to demonstrate improved mechanics with gait, although pt reported she felt her ankles roll out, but was able to correct for it. Pt R hip popping out most noted when lying down after sitting all day. She needs further R hip stabilizing ex's, expecially with extension. Pt will benefit from continued skilled physical therapy to further imporove endurance, balance and safety with gait in order to achieve the above stated goals. Physical Therapy Plan Frequency and Duration Frequency of Treatment Every Other Week Plan of Care Start Date 09/09/20 Plan of Care End Date 03/21/21 Therapeutic Interventions Therapeutic Interventions Balance Training,Gait Training ,Home Exercise Program, Neuromuscular Re-education, Patient/Caregiver Education, Self-Care/Home Management, Therapeutic Exercises Next Visit Focus/Plan Next Note Type Treatment Note Next Visit Plan Pt to check how many steps ( and distance) she is taking with walker at home (without W /C behind her). Add R > L hip gluteal/hip ext strengthening to minimize R hip popping. Continue increasing distance/ endurance with gait and with less UE WB using FWW. POC: R hip pain has lessened; therefore gently progress balance (100% LE WBing for walking), monitor balance ( LIKO measure with bathroom scale pt's wgt, for awareness of WB performance, see if she can identify proper % of LE WBing). Add static standing for increased WBing through legs and try standing hip and trunk strengthening. Pt to do at home: stretch to ankle DF, Quads & Hamstrings and hip strengthening (hip Ext , AB, Clamshell).
--- NOTE | 2021-01-21 14:52 | PT.OTN ---
Current Diagnoses Multiple sclerosis (01/21/21) Paraplegia, incomplete (01/21/21) Muscle weakness (generalized) (01/21/21) Physical Therapy Treatment Note PT-OP-A Visit Information Start: 05/28/20 18:12 Freq: Status: Active Protocol: Document 01/21/21 12:50 LRN (Rec: 01/21/21 14:51 LRN [id number]) Out-Patient Physical Therapy Visit Information Visit Information Visit Type Treatment Note Visit Start Time 12:50 Visit Stop Time 13:30 Total Visit Minutes 40 Visit Number 21 Evaluation Information Evaluation Date 06/03/20 Precautions Precautions Multiple Sclerosis, Paresthesia of both feet, HBP without diagnosis. PT-OP-B Current Condition Start: 05/28/20 18:12 Freq: Status: Active Protocol: Document 06/03/20 12:35 LRN (Rec: 06/03/20 14:23 LRN [id number]) Current Condition History of Current Condition Onset Date Mar 2020 Current Complaints Balance is not good, harder to walk History of Current Condition Getting harder to walk and exercise due to weakness of LE 's, possibly due to multiple sclerosis progression. Can only walk 55' with walker with wheelchair pushed behind her. She reports R foot drop, cold feet and legs, but can feel difference between hot/ cold. Prior Treatments and Tests Physical therapy ending 09/2019 . Treatment Goals Patient/Caregiver Goals Pt goal is to be able to walk farther without legs going out from under her. Be able to get out of bed and walk to bathroom and back independently without wheelchair behind and using a walker, and to be able to walk with a walker without someone behind with wheelchair. Prior Functional Status Baseline Function- ADL's Needs Assist Baseline Function- Mobility Needs Assist Baseline Function- Gait Ambs with FWW with caregiver behind her with a wheelchair. Current Functional Impairments (Reported) Functional Limitations- ADL's Dependent on Wheelchair for mobility. Functional Limitations- Mobility/Gait Able to take 3 steps before the legs give out. Tries to do daily walking 25' x 2 per gait practice with walker and wheelchair behind her in case legs give out. Functional Limitations- Recreation/ LE ex's every other day. Hobbies Opposite days she showers. Personal Factors Other Personal Factors That May Effect MS, paresthesia of both feet, Therapy/Recovery mostly wheelchair bound, father had recent stroke, so mother who was her caregiver is now caregiving to her father. Pt now is depending on her aunt to assist her with mobility and home exercises. PT-OP-C Subjective Start: 05/28/20 18:12 Freq: Status: Active Protocol: Document 01/21/21 12:50 LRN (Rec: 01/21/21 14:51 LRN [id number]) OP-PT Subjective Patient Comments Patient Comments Legs aren't as cooperative today. WAlking ~50-70' at home with walker. PT-OP-D Balance Start: 06/03/20 12:34 Freq: Status: Active Protocol: Document 09/09/20 12:45 LRN (Rec: 09/09/20 13:33 LRN [id number]) Balance Tests Other Other Balance Tests Performed Standing in // bars without UE assist: 37 secs. PT-OP-E Functional Tests Start: 06/03/20 12:34 Freq: Status: Active Protocol: Document 01/07/21 12:49 LRN (Rec: 01/07/21 14:02 LRN [id number]) Functional Tests Five Times Sit to Stand Test Score 12 secs Comments Previous was 14 secs. STS from W/C used arm rests. PT-OP-G Mobility & Gait Start: 06/03/20 12:34 Freq: Status: Active Protocol: Document 08/07/20 10:39 LRN (Rec: 08/07/20 11:23 LRN [id number]) OP Gait Assessment Gait Gait Assistance Required: Contact Guard Assist Distance (Feet) 71 Able to Maintain Weight Bearing Status Yes During Gait Assistive Devices Assistive Device Front Wheeled Walker Comments Gait Comments R foot inverted 56 steps. PT-OP-K Range of Motion Start: 05/28/20 18:12 Freq: Status: Active Protocol: Document 06/03/20 12:35 LRN (Rec: 06/03/20 17:34 LRN [id number]) Hip Goniometric Range of Motion Hip Right Active Testing Position Prone Extension 5 Left Active Testing Position Prone Extension 7 Right Passive Testing Position Sup & Prone Straight Leg Raise 75 Internal Rotation 45 External Rotation 30 Comments Hip ER/IR measurements in prone Left Passive Testing Position Sup & Prone Straight Leg Raise 75 Internal Rotation 55 External Rotation 30 Comments Hip ER/IR measurements in prone Ankle and Foot Goniometric Range of Motion Ankle and Foot Right Active Testing Position Sitting Dorsiflexion with Knee Flexed 5 Left Active Testing Position Sitting Dorsiflexion with Knee Flexed 4 PT-OP-M Strength Start: 05/28/20 18:12 Freq: Status: Active Protocol: Document 06/03/20 12:35 LRN (Rec: 06/03/20 17:34 LRN [id number]) Hip Strength Hip Manual Muscle Testing Right Flexion (L2) 3 Fair Extension (S1) 2+ Poor+ Abduction 2+ Poor+ Adduction 2+ Poor+ Left Flexion (L2) 3 Fair Extension (S1) 3- Fair- Abduction 3 Fair Adduction 3+ Fair+ Knee Strength Knee Manual Muscle Testing Right Comments Generally 5/5 with MMT break testing in 45 deg's knee flex Left Comments Generally 5/5 with MMT break testing in 45 deg's knee flex Ankle/Foot Strength Ankle and Foot Manual Muscle Testing Right Dorsiflexion (L4) 5 Normal Plantarflexion (S1) 5 Normal Inversion 2+ Poor+ Eversion (S1) 5 Normal Left Dorsiflexion (L4) 5 Normal Plantarflexion (S1) 5 Normal Inversion 5 Normal Eversion (S1) 3+ Fair+ PT-OP-Q Treatments Start: 05/28/20 18:12 Freq: Status: Active Protocol: Document 01/21/21 12:50 LRN (Rec: 01/21/21 14:51 LRN [id number]) Therapeutic Exercises Sitting Exercises Trunk SB Sitting Exercise Name R Trunk SB - 3' from Dual Kumar Side bilateral Resistance 10# Reps/Minutes 30x Trunk Ext Sitting Exercise Name Trunk Ext - 13.6' from wall Equipment Used Blue strap Sport Cord Reps/Minutes x30 Trunk rot Sitting Exercise Name Trunk rot - 3' from Dual Kumar Side bilateral Resistance 15# Dual Pully Reps/Minutes 30x Trunk flex Sitting Exercise Name Trunk Flex - (COG 13' from wall) Resistance Blue Sport Cord Reps/Minutes 30x Gait Training Gait Activity Walking within LIKO walker lift Description Walking & for monitoring of WBing status during gait Device Used Liko lift Level of Assistance W/C behind Surface Level Distance/Duration 88.5 ft UE WBing measure at 70% Treatment Focus Walking with reduced UE support Weight shift in // bars Description Standing in // bars Device Used // bars Level of Assistance SBA/GB Treatment Focus Standing tolerance Comments 37 secs PT-OP-T Assessment and Plan Start: 05/28/20 18:12 Freq: Status: Active Protocol: Document 01/21/21 12:50 LRN (Rec: 01/21/21 14:51 LRN [id number]) Physical Therapy Assessment Goals Four Impairment Limited Gait mobility Short Term Goal (STG) Patient will walk 60 feet in / / bars without legs giving out with 1 rest. 08/22/20: Pt gait 100' w/ FWW w / 2 stop stand rests 97% WB BLE and 3% UE WB on FWW 57' w / pivot turn then 80% WB using UE support 20% on FWW, w/c follow. 07/02/20: 61 ft w/pivot before fatigue need sit using gait customer trainer 80% WB; 07/22/20: //bar 10 ft distance forward/back stepping using approx 10% UE WB on //bar assist x3.5 laps 100% WB w/ mirror self spacial awarenessc CGA) STG Duration 06/28/20 (08/07/20: GOAL MET) Care Home Goal (LTG) Patient will walk 75-100 feet with FWW with 2 rests. (08/27/20: Pt walked 127' with one rest stop) LTG Duration 10/01/20 (08/27/20: MET GOAL) Three Impairment Decreased Standing Balance Short Term Goal (STG) Patient will improve balance to be able to balance independently and walk 6 steps without need of wheelchair behind her for safety. (08/07/20: Pt gait 71' with FWW, 08/22/20: 100ft, 70 ft w/ FWW 97> 80% WB through LEs w/ w/c trail for safety). (09/09/20: Standing balance in // bars for 37 secs prior to fatigue) 12/24/20: gait 106', 89' using FWW 10%> 30% UE WB reported. STG Duration 01/20/21 (12/24/20: Progressed ) Care Home Goal (LTG) Patient will improve balance to stand independently and walk to bathroom with FWW without need of wheelchair behind her for safety. (08/07/20: Pt able to come to stand and stay standing independently with wheelchair behind). (01/07/21: Pt reports transferring, stand pivot, independently.) LTG Duration 03/21/21 (08/07/20: Parially met goal: Sit<>Stand indep) Two Impairment Decreased Endurance Short Term Goal (STG) Improve 5XSTS (06/11/20: 22 secs). 08/07/20: progressing 20 secs, sit<>stands using BUE on w/c arm rests w/contact in standing for safety, provided CGA. (08/27/20: 14 secs) 01/07/21: 12 secs) STG Duration (08/07/20: GOAL MET) Launch Steward Goal (LTG) Pt will be able to walk a block 150' with multiple rests with FWW and w/c behind her for safety. (09/09/20: Pt walks in LIKO lift 125' with 1 sit rests) (09/24/20: Pt walks w/FWW 99') LTG Duration 03/21/21 (10/10/20: Progressing, pt walked 105') One Impairment Lacks complete HEP Care Home Goal (LTG) Pt will have a HEP for progression of strengthening for her to do with caregiver ( Aunt). 08/22/20 HEP: resisted rows, shld ext, TB trunk rotation and flexion, back ext, LAQ, HS curl TB, sit<> stands with UE support 8 reps 30 sec today. (08/22/20: Added abdominal strengthening: Lean backs in chair with toes on wall - ( reviewed on 08/27/20), sidelying hip abd/ clamshell) LTG Duration 03/21/21 (08/27/20: Progressed) Assessment Summary Assessment Pt is tolerating progression of trunk strengthening without complaints of discomfort. Pt is having occasioinal popping of R hip at time. Physical Therapy Plan Frequency and Duration Frequency of Treatment Every Other Week Plan of Care Start Date 09/09/20 Plan of Care End Date 03/21/21 Next Visit Focus/Plan Next Note Type Treatment Note Next Visit Plan Try walking around clinic with LIKO lift 150' with sit rests as needed, progressing to walking with walker/wheelchair . Pt to check how many steps (and distance) she is taking with walker at home without W /C behind her (01/21/21 is 50- 70 ft). PRE for R > L hip gluteal/hip ext strengthening to minimize R hip popping. Add static standing for increased WBing through legs and try standing hip and trunk strengthening. Continue increasing distance/ endurance with gait and with less UE WB using FWW. Monitor pt's awareness of WB performance using bathroom scale, see if she can identify proper % of LE WBing. Pt's current HEP: stretch to ankle DF, Quads & Hamstrings and hip strengthening (hip Ext , AB, Clamshell).
--- NOTE | 2021-02-04 14:48 | PT.OTN ---
Current Diagnoses Multiple sclerosis (02/04/21) Paraplegia, incomplete (02/04/21) Muscle weakness (generalized) (02/04/21) Physical Therapy Treatment Note PT-OP-A Visit Information Start: 05/28/20 18:12 Freq: Status: Active Protocol: Document 02/04/21 12:48 LRN (Rec: 02/04/21 13:33 LRN [id number]) Out-Patient Physical Therapy Visit Information Visit Information Visit Type Treatment Note Visit Start Time 12:48 Visit Stop Time 13:28 Total Visit Minutes 40 Visit Number 22 Evaluation Information Evaluation Date 06/03/20 Precautions Precautions Multiple Sclerosis, Paresthesia of both feet, HBP without diagnosis. PT-OP-B Current Condition Start: 05/28/20 18:12 Freq: Status: Active Protocol: Document 06/03/20 12:35 LRN (Rec: 06/03/20 14:23 LRN [id number]) Current Condition History of Current Condition Onset Date Mar 2020 Current Complaints Balance is not good, harder to walk History of Current Condition Getting harder to walk and exercise due to weakness of LE 's, possibly due to multiple sclerosis progression. Can only walk 55' with walker with wheelchair pushed behind her. She reports R foot drop, cold feet and legs, but can feel difference between hot/ cold. Prior Treatments and Tests Physical therapy ending 09/2019 . Treatment Goals Patient/Caregiver Goals Pt goal is to be able to walk farther without legs going out from under her. Be able to get out of bed and walk to bathroom and back independently without wheelchair behind and using a walker, and to be able to walk with a walker without someone behind with wheelchair. Prior Functional Status Baseline Function- ADL's Needs Assist Baseline Function- Mobility Needs Assist Baseline Function- Gait Ambs with FWW with caregiver behind her with a wheelchair. Current Functional Impairments (Reported) Functional Limitations- ADL's Dependent on Wheelchair for mobility. Functional Limitations- Mobility/Gait Able to take 3 steps before the legs give out. Tries to do daily walking 25' x 2 per gait practice with walker and wheelchair behind her in case legs give out. Functional Limitations- Recreation/ LE ex's every other day. Hobbies Opposite days she showers. Personal Factors Other Personal Factors That May Effect MS, paresthesia of both feet, Therapy/Recovery mostly wheelchair bound, father had recent stroke, so mother who was her caregiver is now caregiving to her father. Pt now is depending on her aunt to assist her with mobility and home exercises. PT-OP-C Subjective Start: 05/28/20 18:12 Freq: Status: Active Protocol: Document 02/04/21 12:48 LRN (Rec: 02/04/21 13:33 LRN [id number]) OP-PT Subjective Patient Comments Patient Comments Reports no R hip pain. Didn' t exercise as much as normal. PT-OP-D Balance Start: 06/03/20 12:34 Freq: Status: Active Protocol: Document 09/09/20 12:45 LRN (Rec: 09/09/20 13:33 LRN [id number]) Balance Tests Other Other Balance Tests Performed Standing in // bars without UE assist: 37 secs. PT-OP-E Functional Tests Start: 06/03/20 12:34 Freq: Status: Active Protocol: Document 01/07/21 12:49 LRN (Rec: 01/07/21 14:02 LRN [id number]) Functional Tests Five Times Sit to Stand Test Score 12 secs Comments Previous was 14 secs. STS from W/C used arm rests. PT-OP-G Mobility & Gait Start: 06/03/20 12:34 Freq: Status: Active Protocol: Document 08/07/20 10:39 LRN (Rec: 08/07/20 11:23 LRN [id number]) OP Gait Assessment Gait Gait Assistance Required: Contact Guard Assist Distance (Feet) 71 Able to Maintain Weight Bearing Status Yes During Gait Assistive Devices Assistive Device Front Wheeled Walker Comments Gait Comments R foot inverted 56 steps. PT-OP-K Range of Motion Start: 05/28/20 18:12 Freq: Status: Active Protocol: Document 06/03/20 12:35 LRN (Rec: 06/03/20 17:34 LRN [id number]) Hip Goniometric Range of Motion Hip Right Active Testing Position Prone Extension 5 Left Active Testing Position Prone Extension 7 Right Passive Testing Position Sup & Prone Straight Leg Raise 75 Internal Rotation 45 External Rotation 30 Comments Hip ER/IR measurements in prone Left Passive Testing Position Sup & Prone Straight Leg Raise 75 Internal Rotation 55 External Rotation 30 Comments Hip ER/IR measurements in prone Ankle and Foot Goniometric Range of Motion Ankle and Foot Right Active Testing Position Sitting Dorsiflexion with Knee Flexed 5 Left Active Testing Position Sitting Dorsiflexion with Knee Flexed 4 PT-OP-M Strength Start: 05/28/20 18:12 Freq: Status: Active Protocol: Document 06/03/20 12:35 LRN (Rec: 06/03/20 17:34 LRN [id number]) Hip Strength Hip Manual Muscle Testing Right Flexion (L2) 3 Fair Extension (S1) 2+ Poor+ Abduction 2+ Poor+ Adduction 2+ Poor+ Left Flexion (L2) 3 Fair Extension (S1) 3- Fair- Abduction 3 Fair Adduction 3+ Fair+ Knee Strength Knee Manual Muscle Testing Right Comments Generally 5/5 with MMT break testing in 45 deg's knee flex Left Comments Generally 5/5 with MMT break testing in 45 deg's knee flex Ankle/Foot Strength Ankle and Foot Manual Muscle Testing Right Dorsiflexion (L4) 5 Normal Plantarflexion (S1) 5 Normal Inversion 2+ Poor+ Eversion (S1) 5 Normal Left Dorsiflexion (L4) 5 Normal Plantarflexion (S1) 5 Normal Inversion 5 Normal Eversion (S1) 3+ Fair+ PT-OP-Q Treatments Start: 05/28/20 18:12 Freq: Status: Active Protocol: Document 02/04/21 12:48 LRN (Rec: 02/04/21 13:33 LRN [id number]) Therapeutic Exercises Sitting Exercises Trunk SB Sitting Exercise Name R Trunk SB - 14' from wall Side bilateral Equipment Used Blue strap Sport Cord Reps/Minutes 30x Trunk Ext Sitting Exercise Name Trunk Ext - 14.5' from wall Equipment Used Blue strap Sport Cord Reps/Minutes x30 Trunk rot Sitting Exercise Name Trunk rot - 3' from Dual Kumar Side bilateral Resistance 15# Dual Pully Reps/Minutes 30x Trunk flex Sitting Exercise Name Trunk Flex - (COG 14' from wall) Resistance Blue Sport Cord Reps/Minutes 30x Standing Exercises Liko standing hip strengthening Standing Exercise Name Shallow squat, hip ext & march Side bilateral Reps/Minutes 9-10x each side with each ex Standing balance Standing Exercise Name Standing with LIKO lift Reps/Minutes 1' with minimal support Gait Training Gait Activity Walking within LIKO walker lift Description Walking & for monitoring of WBing status during gait Device Used [employer] lift Level of Assistance W/C behind Surface Level Distance/Duration 117' (felt weakening at 72'), + 42 ft. Treatment Focus Walking with reduced UE support Comments Stood for short period of static standing with reduction of Liko support to none. Weight shift in // bars Description Standing with LIKO walker with minimal to no assist Device Used Liko Lift Level of Assistance Pt reported no help from lift Treatment Focus Standing tolerance PT-OP-T Assessment and Plan Start: 05/28/20 18:12 Freq: Status: Active Protocol: Document 02/04/21 12:48 LRN (Rec: 02/04/21 13:33 LRN [id number]) Physical Therapy Assessment Goals Four Impairment Limited Gait mobility Short Term Goal (STG) Patient will walk 60 feet in / / bars without legs giving out with 1 rest. 08/22/20: Pt gait 100' w/ FWW w / 2 stop stand rests 97% WB BLE and 3% UE WB on FWW 57' w / pivot turn then 80% WB using UE support 20% on FWW, w/c follow. 07/02/20: 61 ft w/pivot before fatigue need sit using gait link trainer operator 80% WB; 07/22/20: //bar 10 ft distance forward/back stepping using approx 10% UE WB on //bar assist x3.5 laps 100% WB w/ mirror self spacial awarenessc CGA) STG Duration 06/28/20 (08/07/20: GOAL MET) Senior Living Goal (LTG) Patient will walk 75-100 feet with FWW with 2 rests. (08/27/20: Pt walked 127' with one rest stop) LTG Duration 10/01/20 (08/27/20: MET GOAL) Three Impairment Decreased Standing Balance Short Term Goal (STG) Patient will improve balance to be able to balance independently and walk 6 steps without need of wheelchair behind her for safety. (08/07/20: Pt gait 71' with FWW, 08/22/20: 100ft, 70 ft w/ FWW 97> 80% WB through LEs w/ w/c trail for safety). (09/09/20: Standing balance in // bars for 37 secs prior to fatigue) 12/24/20: gait 106', 89' using FWW 10%> 30% UE WB reported. STG Duration 01/20/21 (12/24/20: Progressed ) Song Plugger Goal (LTG) Patient will improve balance to stand independently and walk to bathroom with FWW without need of wheelchair behind her for safety. (08/07/20: Pt able to come to stand and stay standing independently with wheelchair behind). (01/07/21: Pt reports transferring, stand pivot, independently.) LTG Duration 03/21/21 (08/07/20: Parially met goal: Sit<>Stand indep) Two Impairment Decreased Endurance Short Term Goal (STG) Improve 5XSTS (06/11/20: 22 secs). 08/07/20: progressing 20 secs, sit<>stands using BUE on w/c arm rests w/contact in standing for safety, provided CGA. (08/27/20: 14 secs) 01/07/21: 12 secs) STG Duration (08/07/20: GOAL MET) Song Plugger Goal (LTG) Pt will be able to walk a block 150' with multiple rests with FWW and w/c behind her for safety. (09/09/20: Pt walks in LIKO lift 125' with 1 sit rests) (09/24/20: Pt walks w/FWW 99') (02/04/21: Pt walked in LIKO lift a total of 159' with one sit rest) LTG Duration 03/21/21 (10/10/20: met with LIKO lift') One Impairment Lacks complete HEP Song Plugger Goal (LTG) Pt will have a HEP for progression of strengthening for her to do with caregiver ( Aunt). 08/22/20 HEP: resisted rows, shld ext, TB trunk rotation and flexion, back ext, LAQ, HS curl TB, sit<> stands with UE support 8 reps 30 sec today. (08/22/20: Added abdominal strengthening: Lean backs in chair with toes on wall - ( reviewed on 08/27/20), sidelying hip abd/ clamshell) LTG Duration 03/21/21 (08/27/20: Progressed) Progress Towards Goals Progress Comments Pt was able to walk 159' with LIKO lift with one sit rest. Assessment Summary Assessment Improved endurance walking with LIKO. Pt able to stand for short period, but was very fatiguing to legs. Ankles and lower legs most weak. Pt tolerated a little more resistance with trunk strengtening. No complaints of R hip pain. Physical Therapy Plan Frequency and Duration Frequency of Treatment Every Other Week Plan of Care Start Date 09/09/20 Plan of Care End Date 03/21/21 Next Visit Focus/Plan Next Note Type Treatment Note Next Visit Plan Try walking around clinic with FWW/wheelchair behind, 150' with sit rests as needed. Pt to check how many steps (and distance) she is taking with walker at home without W/C behind her (01/21/21 is 50-70 ft). PRE for R > L hip gluteal /hip ext strengthening to minimize R hip popping. Add static standing for increased WBing through legs and try standing hip and trunk strengthening. Continue increasing distance/ endurance with gait and with less UE WB using FWW. Monitor pt's awareness of WB performance using bathroom scale, see if she can identify proper % of LE WBing. Pt's current HEP: stretch to ankle DF, Quads & Hamstrings and hip strengthening (hip Ext , AB, Clamshell).
--- NOTE | 2021-02-25 16:39 | PT.OTN ---
Current Diagnoses Multiple sclerosis (02/25/21) Paraplegia, incomplete (02/25/21) Muscle weakness (generalized) (02/25/21) Physical Therapy Treatment Note PT-OP-A Visit Information Start: 05/28/20 18:12 Freq: Status: Active Protocol: Document 02/25/21 12:50 LRN (Rec: 02/25/21 13:30 LRN [id number]) Out-Patient Physical Therapy Visit Information Visit Information Visit Type Treatment Note Visit Start Time 12:50 Visit Stop Time 13:30 Total Visit Minutes 40 Visit Number 23 Evaluation Information Evaluation Date 06/03/20 Precautions Precautions Multiple Sclerosis, Paresthesia of both feet, HBP without diagnosis. PT-OP-B Current Condition Start: 05/28/20 18:12 Freq: Status: Active Protocol: Document 06/03/20 12:35 LRN (Rec: 06/03/20 14:23 LRN [id number]) Current Condition History of Current Condition Onset Date Mar 2020 Current Complaints Balance is not good, harder to walk History of Current Condition Getting harder to walk and exercise due to weakness of LE 's, possibly due to multiple sclerosis progression. Can only walk 55' with walker with wheelchair pushed behind her. She reports R foot drop, cold feet and legs, but can feel difference between hot/ cold. Prior Treatments and Tests Physical therapy ending 09/2019 . Treatment Goals Patient/Caregiver Goals Pt goal is to be able to walk farther without legs going out from under her. Be able to get out of bed and walk to bathroom and back independently without wheelchair behind and using a walker, and to be able to walk with a walker without someone behind with wheelchair. Prior Functional Status Baseline Function- ADL's Needs Assist Baseline Function- Mobility Needs Assist Baseline Function- Gait Ambs with FWW with caregiver behind her with a wheelchair. Current Functional Impairments (Reported) Functional Limitations- ADL's Dependent on Wheelchair for mobility. Functional Limitations- Mobility/Gait Able to take 3 steps before the legs give out. Tries to do daily walking 25' x 2 per gait practice with walker and wheelchair behind her in case legs give out. Functional Limitations- Recreation/ LE ex's every other day. Hobbies Opposite days she showers. Personal Factors Other Personal Factors That May Effect MS, paresthesia of both feet, Therapy/Recovery mostly wheelchair bound, father had recent stroke, so mother who was her caregiver is now caregiving to her father. Pt now is depending on her aunt to assist her with mobility and home exercises. PT-OP-C Subjective Start: 05/28/20 18:12 Freq: Status: Active Protocol: Document 02/25/21 12:50 LRN (Rec: 02/25/21 13:30 LRN [id number]) OP-PT Subjective Patient Comments Patient Comments About the same, did more sitting due to holiday prep. PT-OP-D Balance Start: 06/03/20 12:34 Freq: Status: Active Protocol: Document 09/09/20 12:45 LRN (Rec: 09/09/20 13:33 LRN [id number]) Balance Tests Other Other Balance Tests Performed Standing in // bars without UE assist: 37 secs. PT-OP-E Functional Tests Start: 06/03/20 12:34 Freq: Status: Active Protocol: Document 01/07/21 12:49 LRN (Rec: 01/07/21 14:02 LRN [id number]) Functional Tests Five Times Sit to Stand Test Score 12 secs Comments Previous was 14 secs. STS from W/C used arm rests. PT-OP-G Mobility & Gait Start: 06/03/20 12:34 Freq: Status: Active Protocol: Document 08/07/20 10:39 LRN (Rec: 08/07/20 11:23 LRN [id number]) OP Gait Assessment Gait Gait Assistance Required: Contact Guard Assist Distance (Feet) 71 Able to Maintain Weight Bearing Status Yes During Gait Assistive Devices Assistive Device Front Wheeled Walker Comments Gait Comments R foot inverted 56 steps. PT-OP-K Range of Motion Start: 05/28/20 18:12 Freq: Status: Active Protocol: Document 06/03/20 12:35 LRN (Rec: 06/03/20 17:34 LRN [id number]) Hip Goniometric Range of Motion Hip Right Active Testing Position Prone Extension 5 Left Active Testing Position Prone Extension 7 Right Passive Testing Position Sup & Prone Straight Leg Raise 75 Internal Rotation 45 External Rotation 30 Comments Hip ER/IR measurements in prone Left Passive Testing Position Sup & Prone Straight Leg Raise 75 Internal Rotation 55 External Rotation 30 Comments Hip ER/IR measurements in prone Ankle and Foot Goniometric Range of Motion Ankle and Foot Right Active Testing Position Sitting Dorsiflexion with Knee Flexed 5 Left Active Testing Position Sitting Dorsiflexion with Knee Flexed 4 PT-OP-M Strength Start: 05/28/20 18:12 Freq: Status: Active Protocol: Document 06/03/20 12:35 LRN (Rec: 06/03/20 17:34 LRN [id number]) Hip Strength Hip Manual Muscle Testing Right Flexion (L2) 3 Fair Extension (S1) 2+ Poor+ Abduction 2+ Poor+ Adduction 2+ Poor+ Left Flexion (L2) 3 Fair Extension (S1) 3- Fair- Abduction 3 Fair Adduction 3+ Fair+ Knee Strength Knee Manual Muscle Testing Right Comments Generally 5/5 with MMT break testing in 45 deg's knee flex Left Comments Generally 5/5 with MMT break testing in 45 deg's knee flex Ankle/Foot Strength Ankle and Foot Manual Muscle Testing Right Dorsiflexion (L4) 5 Normal Plantarflexion (S1) 5 Normal Inversion 2+ Poor+ Eversion (S1) 5 Normal Left Dorsiflexion (L4) 5 Normal Plantarflexion (S1) 5 Normal Inversion 5 Normal Eversion (S1) 3+ Fair+ PT-OP-Q Treatments Start: 05/28/20 18:12 Freq: Status: Active Protocol: Document 02/25/21 12:50 LRN (Rec: 02/25/21 13:30 LRN [id number]) Therapeutic Exercises Sitting Exercises Trunk SB Sitting Exercise Name R Trunk SB - 14' from wall Side bilateral Equipment Used Blue strap Sport Cord Reps/Minutes 30x Trunk Ext Sitting Exercise Name Trunk Ext - 14.5' from wall Equipment Used Blue strap Sport Cord Reps/Minutes x30 Trunk rot Sitting Exercise Name Trunk rot - 3' from Dual Kumar Side bilateral Resistance 15# Dual Pully Reps/Minutes 30x Trunk flex Sitting Exercise Name Trunk Flex - (COG 14.6' from wall) Resistance Blue Sport Cord Reps/Minutes 30x Standing Exercises Standing balance Standing Exercise Name Standing in // bars Equipment Used // bars Reps/Minutes 1' 39 & 2' with minimal support Comments Pt required sit rest between bouts. Marching Standing Exercise Name Marching Side bilateral Equipment Used // bars Reps/Minutes 2' Gait Training Gait Activity Walking with walker Description Walking with FWW Device Used FWW Level of Assistance CGA at GB, w/c behind. Surface Level Distance/Duration 115' + 70' = 185' Treatment Focus LE WB gait PT-OP-T Assessment and Plan Start: 05/28/20 18:12 Freq: Status: Active Protocol: Document 02/25/21 12:50 LRN (Rec: 02/25/21 13:30 LRN [id number]) Physical Therapy Assessment Goals Three Impairment Decreased Standing Balance Short Term Goal (STG) Patient will improve balance to be able to balance independently and walk 6 steps without need of wheelchair behind her for safety. (08/07/20: Pt gait 71' with FWW, 08/22/20: 100ft, 70 ft w/ FWW 97> 80% WB through LEs w/ w/c trail for safety). (09/09/20: Standing balance in // bars for 37 secs prior to fatigue) 12/24/20: gait 106', 89' using FWW 10%> 30% UE WB reported. STG Duration 01/20/21 (12/24/20: Progressed ) Clinical Psychiatrist Goal (LTG) Patient will improve balance to stand independently and walk to bathroom with FWW without need of wheelchair behind her for safety. (08/07/20: Pt able to come to stand and stay standing independently with wheelchair behind). (01/07/21: Pt reports transferring, stand pivot, independently.) LTG Duration 03/21/21 (08/07/20: Partially met goal: Sit<>Stand indep) Two Impairment Decreased Endurance Short Term Goal (STG) Improve 5XSTS (06/11/20: 22 secs). 08/07/20: progressing 20 secs, sit<>stands using BUE on w/c arm rests w/contact in standing for safety, provided CGA. (08/27/20: 14 secs) 01/07/21: 12 secs) STG Duration (08/07/20: GOAL MET) Clinical Psychiatrist Goal (LTG) Pt will be able to walk a block 150' with multiple rests with FWW and w/c behind her for safety. (09/09/20: Pt walks in LIKO lift 125' with 1 sit rests) (09/24/20: Pt walks w/FWW 99') (02/04/21: Pt walked in LIKO lift a total of 159' with one sit rest) LTG Duration 03/21/21 (02/25/21: MET GOAL) One Impairment Lacks complete HEP Residential Goal (LTG) Pt will have a HEP for progression of strengthening for her to do with caregiver ( Aunt). 08/22/20 HEP: resisted rows, shld ext, TB trunk rotation and flexion, back ext, LAQ, HS curl TB, sit<> stands with UE support 8 reps 30 sec today. (08/22/20: Added abdominal strengthening: Lean backs in chair with toes on wall - ( reviewed on 08/27/20), sidelying hip abd/ clamshell) LTG Duration 03/21/21 (08/27/20: Progressed) Progress Towards Goals Progress Comments Pt walking total of 185' with one sit rest. LTG #2 MET. Assessment Summary Assessment Improved endurance with walking, LTG #2 MET. Physical Therapy Plan Frequency and Duration Frequency of Treatment Every Other Week Plan of Care Start Date 09/09/20 Plan of Care End Date 03/21/21 Next Visit Focus/Plan Next Note Type Treatment Note Next Visit Plan Pt to be discharged to self care HEP (assess goals). Pt to check how many steps ( and distance) she is taking with walker at home without W/ C behind her (01/21/21 is 50-70 ft). Add to Final HEP: static standing for increased WBing through legs and try standing hip (AB, ext) and trunk (rot) strengthening (Progressive resistive exercise for R > L hip gluteal/hip ext strengthening to minimize R hip ). Pt's current HEP: stretch to ankle DF, Quads & Hamstrings and hip strengthening (hip Ext , AB, Clamshell).
--- NOTE | 2021-02-25 16:40 | PT.OTN ---
Current Diagnoses Multiple sclerosis (02/25/21) Paraplegia, incomplete (02/25/21) Muscle weakness (generalized) (02/25/21) Physical Therapy Treatment Note PT-OP-A Visit Information Start: 05/28/20 18:12 Freq: Status: Active Protocol: Document 02/25/21 12:50 LRN (Rec: 02/25/21 13:30 LRN [id number]) Out-Patient Physical Therapy Visit Information Visit Information Visit Type Treatment Note Visit Start Time 12:50 Visit Stop Time 13:30 Total Visit Minutes 40 Visit Number 23 Evaluation Information Evaluation Date 06/03/20 Precautions Precautions Multiple Sclerosis, Paresthesia of both feet, HBP without diagnosis. PT-OP-B Current Condition Start: 05/28/20 18:12 Freq: Status: Active Protocol: Document 06/03/20 12:35 LRN (Rec: 06/03/20 14:23 LRN [id number]) Current Condition History of Current Condition Onset Date Mar 2020 Current Complaints Balance is not good, harder to walk History of Current Condition Getting harder to walk and exercise due to weakness of LE 's, possibly due to multiple sclerosis progression. Can only walk 55' with walker with wheelchair pushed behind her. She reports R foot drop, cold feet and legs, but can feel difference between hot/ cold. Prior Treatments and Tests Physical therapy ending 09/2019 . Treatment Goals Patient/Caregiver Goals Pt goal is to be able to walk farther without legs going out from under her. Be able to get out of bed and walk to bathroom and back independently without wheelchair behind and using a walker, and to be able to walk with a walker without someone behind with wheelchair. Prior Functional Status Baseline Function- ADL's Needs Assist Baseline Function- Mobility Needs Assist Baseline Function- Gait Ambs with FWW with caregiver behind her with a wheelchair. Current Functional Impairments (Reported) Functional Limitations- ADL's Dependent on Wheelchair for mobility. Functional Limitations- Mobility/Gait Able to take 3 steps before the legs give out. Tries to do daily walking 25' x 2 per gait practice with walker and wheelchair behind her in case legs give out. Functional Limitations- Recreation/ LE ex's every other day. Hobbies Opposite days she showers. Personal Factors Other Personal Factors That May Effect MS, paresthesia of both feet, Therapy/Recovery mostly wheelchair bound, father had recent stroke, so mother who was her caregiver is now caregiving to her father. Pt now is depending on her aunt to assist her with mobility and home exercises. PT-OP-C Subjective Start: 05/28/20 18:12 Freq: Status: Active Protocol: Document 02/25/21 12:50 LRN (Rec: 02/25/21 13:30 LRN [id number]) OP-PT Subjective Patient Comments Patient Comments About the same, did more sitting due to holiday prep. PT-OP-D Balance Start: 06/03/20 12:34 Freq: Status: Active Protocol: Document 09/09/20 12:45 LRN (Rec: 09/09/20 13:33 LRN [id number]) Balance Tests Other Other Balance Tests Performed Standing in // bars without UE assist: 37 secs. PT-OP-E Functional Tests Start: 06/03/20 12:34 Freq: Status: Active Protocol: Document 01/07/21 12:49 LRN (Rec: 01/07/21 14:02 LRN [id number]) Functional Tests Five Times Sit to Stand Test Score 12 secs Comments Previous was 14 secs. STS from W/C used arm rests. PT-OP-G Mobility & Gait Start: 06/03/20 12:34 Freq: Status: Active Protocol: Document 08/07/20 10:39 LRN (Rec: 08/07/20 11:23 LRN [id number]) OP Gait Assessment Gait Gait Assistance Required: Contact Guard Assist Distance (Feet) 71 Able to Maintain Weight Bearing Status Yes During Gait Assistive Devices Assistive Device Front Wheeled Walker Comments Gait Comments R foot inverted 56 steps. PT-OP-K Range of Motion Start: 05/28/20 18:12 Freq: Status: Active Protocol: Document 06/03/20 12:35 LRN (Rec: 06/03/20 17:34 LRN [id number]) Hip Goniometric Range of Motion Hip Right Active Testing Position Prone Extension 5 Left Active Testing Position Prone Extension 7 Right Passive Testing Position Sup & Prone Straight Leg Raise 75 Internal Rotation 45 External Rotation 30 Comments Hip ER/IR measurements in prone Left Passive Testing Position Sup & Prone Straight Leg Raise 75 Internal Rotation 55 External Rotation 30 Comments Hip ER/IR measurements in prone Ankle and Foot Goniometric Range of Motion Ankle and Foot Right Active Testing Position Sitting Dorsiflexion with Knee Flexed 5 Left Active Testing Position Sitting Dorsiflexion with Knee Flexed 4 PT-OP-M Strength Start: 05/28/20 18:12 Freq: Status: Active Protocol: Document 06/03/20 12:35 LRN (Rec: 06/03/20 17:34 LRN [id number]) Hip Strength Hip Manual Muscle Testing Right Flexion (L2) 3 Fair Extension (S1) 2+ Poor+ Abduction 2+ Poor+ Adduction 2+ Poor+ Left Flexion (L2) 3 Fair Extension (S1) 3- Fair- Abduction 3 Fair Adduction 3+ Fair+ Knee Strength Knee Manual Muscle Testing Right Comments Generally 5/5 with MMT break testing in 45 deg's knee flex Left Comments Generally 5/5 with MMT break testing in 45 deg's knee flex Ankle/Foot Strength Ankle and Foot Manual Muscle Testing Right Dorsiflexion (L4) 5 Normal Plantarflexion (S1) 5 Normal Inversion 2+ Poor+ Eversion (S1) 5 Normal Left Dorsiflexion (L4) 5 Normal Plantarflexion (S1) 5 Normal Inversion 5 Normal Eversion (S1) 3+ Fair+ PT-OP-Q Treatments Start: 05/28/20 18:12 Freq: Status: Active Protocol: Document 02/25/21 12:50 LRN (Rec: 02/25/21 13:30 LRN [id number]) Therapeutic Exercises Sitting Exercises Trunk SB Sitting Exercise Name R Trunk SB - 14' from wall Side bilateral Equipment Used Blue strap Sport Cord Reps/Minutes 30x Trunk Ext Sitting Exercise Name Trunk Ext - 14.5' from wall Equipment Used Blue strap Sport Cord Reps/Minutes x30 Trunk rot Sitting Exercise Name Trunk rot - 3' from Dual Kumar Side bilateral Resistance 15# Dual Pully Reps/Minutes 30x Trunk flex Sitting Exercise Name Trunk Flex - (COG 14.6' from wall) Resistance Blue Sport Cord Reps/Minutes 30x Standing Exercises Standing balance Standing Exercise Name Standing in // bars Equipment Used // bars Reps/Minutes 1' 39 & 2' with minimal support Comments Pt required sit rest between bouts. Marching Standing Exercise Name Marching Side bilateral Equipment Used // bars Reps/Minutes 2' Gait Training Gait Activity Walking with walker Description Walking with FWW Device Used FWW Level of Assistance CGA at GB, w/c behind. Surface Level Distance/Duration 115' + 70' = 185' Treatment Focus LE WB gait PT-OP-T Assessment and Plan Start: 05/28/20 18:12 Freq: Status: Active Protocol: Document 02/25/21 12:50 LRN (Rec: 02/25/21 13:30 LRN [id number]) Physical Therapy Assessment Goals Three Impairment Decreased Standing Balance Short Term Goal (STG) Patient will improve balance to be able to balance independently and walk 6 steps without need of wheelchair behind her for safety. (08/07/20: Pt gait 71' with FWW, 08/22/20: 100ft, 70 ft w/ FWW 97> 80% WB through LEs w/ w/c trail for safety). (09/09/20: Standing balance in // bars for 37 secs prior to fatigue) 12/24/20: gait 106', 89' using FWW 10%> 30% UE WB reported. STG Duration 01/20/21 (12/24/20: Progressed ) Wellness Health Coach Goal (LTG) Patient will improve balance to stand independently and walk to bathroom with FWW without need of wheelchair behind her for safety. (08/07/20: Pt able to come to stand and stay standing independently with wheelchair behind). (01/07/21: Pt reports transferring, stand pivot, independently.) LTG Duration 03/21/21 (08/07/20: Partially met goal: Sit<>Stand indep) Two Impairment Decreased Endurance Short Term Goal (STG) Improve 5XSTS (06/11/20: 22 secs). 08/07/20: progressing 20 secs, sit<>stands using BUE on w/c arm rests w/contact in standing for safety, provided CGA. (08/27/20: 14 secs) 01/07/21: 12 secs) STG Duration (08/07/20: GOAL MET) Wellness Health Coach Goal (LTG) Pt will be able to walk a block 150' with multiple rests with FWW and w/c behind her for safety. (09/09/20: Pt walks in LIKO lift 125' with 1 sit rests) (09/24/20: Pt walks w/FWW 99') (02/04/21: Pt walked in LIKO lift a total of 159' with one sit rest) LTG Duration 03/21/21 (02/25/21: MET GOAL) One Impairment Lacks complete HEP Intermediate Goal (LTG) Pt will have a HEP for progression of strengthening for her to do with caregiver ( Aunt). 08/22/20 HEP: resisted rows, shld ext, TB trunk rotation and flexion, back ext, LAQ, HS curl TB, sit<> stands with UE support 8 reps 30 sec today. (08/22/20: Added abdominal strengthening: Lean backs in chair with toes on wall - ( reviewed on 08/27/20), sidelying hip abd/ clamshell) LTG Duration 03/21/21 (08/27/20: Progressed) Progress Towards Goals Progress Comments Pt walking total of 185' with one sit rest. LTG #2 MET. Assessment Summary Assessment Improved endurance with walking, LTG #2 MET. Physical Therapy Plan Frequency and Duration Frequency of Treatment Every Other Week Plan of Care Start Date 09/09/20 Plan of Care End Date 03/21/21 Next Visit Focus/Plan Next Note Type Treatment Note Next Visit Plan Pt to be discharged to self care HEP (assess goals). Pt to check how many steps ( and distance) she is taking with walker at home without W/ C behind her (01/21/21 is 50-70 ft). Add to Final HEP: static standing for increased WBing through legs and try standing hip (AB, ext) and trunk (rot) strengthening (Progressive resistive exercise for R > L hip gluteal/hip ext strengthening to minimize R hip ). Pt's current HEP: stretch to ankle DF, Quads & Hamstrings and hip strengthening (hip Ext , AB, Clamshell).
--- NOTE | 2021-03-06 14:32 | PT.OTN ---
Current Diagnoses Multiple sclerosis (03/06/21) Paraplegia, incomplete (03/06/21) Muscle weakness (generalized) (03/06/21) Physical Therapy Treatment Note PT-OP-A Visit Information Start: 05/28/20 18:12 Freq: Status: Active Protocol: Document 03/06/21 13:40 LRN (Rec: 03/06/21 14:30 LRN [id number]) Out-Patient Physical Therapy Visit Information Visit Information Visit Type Treatment Note Visit Start Time 13:40 Visit Stop Time 14:18 Total Visit Minutes 38 Visit Number 24 Evaluation Information Evaluation Date 06/03/20 Precautions Precautions Multiple Sclerosis, Paresthesia of both feet, HBP without diagnosis. PT-OP-B Current Condition Start: 05/28/20 18:12 Freq: Status: Active Protocol: Document 06/03/20 12:35 LRN (Rec: 06/03/20 14:23 LRN [id number]) Current Condition History of Current Condition Onset Date Mar 2020 Current Complaints Balance is not good, harder to walk History of Current Condition Getting harder to walk and exercise due to weakness of LE 's, possibly due to multiple sclerosis progression. Can only walk 55' with walker with wheelchair pushed behind her. She reports R foot drop, cold feet and legs, but can feel difference between hot/ cold. Prior Treatments and Tests Physical therapy ending 09/2019 . Treatment Goals Patient/Caregiver Goals Pt goal is to be able to walk farther without legs going out from under her. Be able to get out of bed and walk to bathroom and back independently without wheelchair behind and using a walker, and to be able to walk with a walker without someone behind with wheelchair. Prior Functional Status Baseline Function- ADL's Needs Assist Baseline Function- Mobility Needs Assist Baseline Function- Gait Ambs with FWW with caregiver behind her with a wheelchair. Current Functional Impairments (Reported) Functional Limitations- ADL's Dependent on Wheelchair for mobility. Functional Limitations- Mobility/Gait Able to take 3 steps before the legs give out. Tries to do daily walking 25' x 2 per gait practice with walker and wheelchair behind her in case legs give out. Functional Limitations- Recreation/ LE ex's every other day. Hobbies Opposite days she showers. Personal Factors Other Personal Factors That May Effect MS, paresthesia of both feet, Therapy/Recovery mostly wheelchair bound, father had recent stroke, so mother who was her caregiver is now caregiving to her father. Pt now is depending on her aunt to assist her with mobility and home exercises. PT-OP-C Subjective Start: 05/28/20 18:12 Freq: Status: Active Protocol: Document 03/06/21 13:40 LRN (Rec: 03/06/21 14:30 LRN [id number]) OP-PT Subjective Patient Comments Patient Comments States she did not do the walk into her bathroom, so isn't sure how much she can walk, but is sure she can walk to bathroom with just a walker. PT-OP-D Balance Start: 06/03/20 12:34 Freq: Status: Active Protocol: Document 09/09/20 12:45 LRN (Rec: 09/09/20 13:33 LRN [id number]) Balance Tests Other Other Balance Tests Performed Standing in // bars without UE assist: 37 secs. PT-OP-E Functional Tests Start: 06/03/20 12:34 Freq: Status: Active Protocol: Document 01/07/21 12:49 LRN (Rec: 01/07/21 14:02 LRN [id number]) Functional Tests Five Times Sit to Stand Test Score 12 secs Comments Previous was 14 secs. STS from W/C used arm rests. PT-OP-G Mobility & Gait Start: 06/03/20 12:34 Freq: Status: Active Protocol: Document 08/07/20 10:39 LRN (Rec: 08/07/20 11:23 LRN [id number]) OP Gait Assessment Gait Gait Assistance Required: Contact Guard Assist Distance (Feet) 71 Able to Maintain Weight Bearing Status Yes During Gait Assistive Devices Assistive Device Front Wheeled Walker Comments Gait Comments R foot inverted 56 steps. PT-OP-K Range of Motion Start: 05/28/20 18:12 Freq: Status: Active Protocol: Document 06/03/20 12:35 LRN (Rec: 06/03/20 17:34 LRN [id number]) Hip Goniometric Range of Motion Hip Right Active Testing Position Prone Extension 5 Left Active Testing Position Prone Extension 7 Right Passive Testing Position Sup & Prone Straight Leg Raise 75 Internal Rotation 45 External Rotation 30 Comments Hip ER/IR measurements in prone Left Passive Testing Position Sup & Prone Straight Leg Raise 75 Internal Rotation 55 External Rotation 30 Comments Hip ER/IR measurements in prone Ankle and Foot Goniometric Range of Motion Ankle and Foot Right Active Testing Position Sitting Dorsiflexion with Knee Flexed 5 Left Active Testing Position Sitting Dorsiflexion with Knee Flexed 4 PT-OP-M Strength Start: 05/28/20 18:12 Freq: Status: Active Protocol: Document 06/03/20 12:35 LRN (Rec: 06/03/20 17:34 LRN [id number]) Hip Strength Hip Manual Muscle Testing Right Flexion (L2) 3 Fair Extension (S1) 2+ Poor+ Abduction 2+ Poor+ Adduction 2+ Poor+ Left Flexion (L2) 3 Fair Extension (S1) 3- Fair- Abduction 3 Fair Adduction 3+ Fair+ Knee Strength Knee Manual Muscle Testing Right Comments Generally 5/5 with MMT break testing in 45 deg's knee flex Left Comments Generally 5/5 with MMT break testing in 45 deg's knee flex Ankle/Foot Strength Ankle and Foot Manual Muscle Testing Right Dorsiflexion (L4) 5 Normal Plantarflexion (S1) 5 Normal Inversion 2+ Poor+ Eversion (S1) 5 Normal Left Dorsiflexion (L4) 5 Normal Plantarflexion (S1) 5 Normal Inversion 5 Normal Eversion (S1) 3+ Fair+ PT-OP-Q Treatments Start: 05/28/20 18:12 Freq: Status: Active Protocol: Document 03/06/21 13:40 LRN (Rec: 03/06/21 14:30 LRN [id number]) Gym Equipment Cable Column (Body Solid) Trunk rotation Details Trunk rot, cable just below breast hgt Resistance 12# Reps/Time 10x 3 L, 10 x3 R Therapeutic Exercises Sitting Exercises Trunk SB Sitting Exercise Name R Trunk SB - 14' from wall Side bilateral Equipment Used Blue strap Sport Cord Reps/Minutes 30x Trunk Ext Sitting Exercise Name Trunk Ext - 14.5' from wall Equipment Used Blue strap Sport Cord Reps/Minutes x30 Trunk rot Sitting Exercise Name Trunk rot - 3' from Dual Kumar Side bilateral Resistance 15# Dual Pully Reps/Minutes 30x Trunk flex Sitting Exercise Name Trunk Flex - (COG 14.6' from wall) Resistance Blue Sport Cord Reps/Minutes 30x Gait Training Gait Activity Walking with walker Description Walking with FWW Device Used FWW Level of Assistance CGA at GB, w/c behind. Surface Level Distance/Duration 98' + 116' = 214' Treatment Focus LE WB gait Self-Care/Home Management Treatment Education Patient Education Home Exercise Program Other Education Pt's HEP issued: stretch to ankle DF, Quads & Hamstrings and hip strengthening (hip Ext , AB, Clamshell). Activities Self-Care/Home Management Activities Verbally reviewed pt's self care HEP. Discussed adding to home program working towards improving standing time. PT-OP-T Assessment and Plan Start: 05/28/20 18:12 Freq: Status: Active Protocol: Document 03/06/21 13:40 LRN (Rec: 03/06/21 14:30 LRN [id number]) Physical Therapy Assessment Goals Three Impairment Decreased Standing Balance Short Term Goal (STG) Patient will improve balance to be able to balance independently and walk 6 steps without need of wheelchair behind her for safety. (08/07/20: Pt gait 71' with FWW, 08/22/20: 100ft, 70 ft w/ FWW 97> 80% WB through LEs w/ w/c trail for safety). (09/09/20: Standing balance in // bars for 37 secs prior to fatigue) 12/24/20: gait 106', 89' using FWW 10%> 30% UE WB reported. STG Duration 01/20/21 (03/06/21: MET GOAL) Projection Technician Goal (LTG) Patient will improve balance to stand independently and walk to bathroom with FWW without need of wheelchair behind her for safety. (08/07/20: Pt able to come to stand and stay standing independently with wheelchair behind). (01/07/21: Pt reports transferring, stand pivot, independently.) (03/06/21: Pt feels she has achieved goal, but has not physically attempted. LTG Duration 03/21/21 (03/06/21: Pt feels she has achieved goal) Two Impairment Decreased Endurance Short Term Goal (STG) Improve 5XSTS (06/11/20: 22 secs). 08/07/20: progressing 20 secs, sit<>stands using BUE on w/c arm rests w/contact in standing for safety, provided CGA. (08/27/20: 14 secs) 01/07/21: 12 secs) STG Duration (08/07/20: GOAL MET) Projection Technician Goal (LTG) Pt will be able to walk a block 150' with multiple rests with FWW and w/c behind her for safety. (09/09/20: Pt walks in LIKO lift 125' with 1 sit rests) (09/24/20: Pt walks w/FWW 99') (02/04/21: Pt walked in LIKO lift a total of 159' with one sit rest) LTG Duration 03/21/21 (02/25/21: MET GOAL) One Impairment Lacks complete HEP Longterm Goal (LTG) Pt will have a HEP for progression of strengthening for her to do with caregiver ( Aunt). 08/22/20 HEP: resisted rows, shld ext, TB trunk rotation and flexion, back ext, LAQ, HS curl TB, sit<> stands with UE support 8 reps 30 sec today. (08/22/20: Added abdominal strengthening: Lean backs in chair with toes on wall - ( reviewed on 08/27/20), sidelying hip abd/ clamshell) LTG Duration 03/21/21 (03/06/21: MET GOAL) Assessment Summary Assessment Pt has made very good progress overall with therapy. She can now walk with her FWW for 200+ feet with one sitting rest and less fatigue. She has met all her goals except LTG#3, but pt she feels she can meegt the goal, she just needs gto do it with her mom. Physical Therapy Plan Discharge Physical Therapy Discharge Reasons Goals Met Discharge Comments Pt did not physically meet LTG #3, but pt feels she is able to meet the goal if she were to try doing it at home today. The pt hopes do aquatic therapy in the future to improve her independence with gait.
== END 2021-04-22 08:53 ==
LOC: PHYS 13:30
PROVIDERS: PCP Student in an Organized Health Care Education/Training Program; Referring Provider Internal Medicine; Visit Provider Internal Medicine
DX: G35 Multiple sclerosis (principal); G82.22 Paraplegia, incomplete; M62.81 Muscle weakness (generalized)
CPT/HCPCS: 97110; 97112; 97116; 97140; 97162; 97535

== ENCOUNTER → 2021-06-30 11:50 | Outpatient (CLI) | payer MEDICARE, MEDICAID, SELFPAY ==
[2021-06-30 12:42] LABS: BUN Creatinine Ratio 17.9 (6-22); Blood Urea Nitrogen 10 mg/dL (7-17); Calcium 8.9 mg/dL (8.4-10.2); Carbon Dioxide 26 mmol/L (22-32); Chloride 105 mmol/L (98-107); Cholesterol 255 mg/dL (140-199); Estimated Glomerular Filt Rate > 60.0 mL/min (>60); Glucose 102 mg/dL (70-100); HDL Cholesterol 41 mg/dL (40-60); HEMOLYSIS 16 (0-50); LDL Cholesterol Calculated 190 mg/dL (<100); Potassium 3.7 mmol/L (3.4-5.1); Sodium 138 mmol/L (137-145); Triglycerides 119 mg/dL (35-150)
== END ==
PROVIDERS: Family Provider Student in an Organized Health Care Education/Training Program; PCP Student in an Organized Health Care Education/Training Program; Referring Provider Student in an Organized Health Care Education/Training Program; Visit Provider Student in an Organized Health Care Education/Training Program
DX: E78.5 Hyperlipidemia, unspecified (principal); I10 Essential (primary) hypertension
CPT/HCPCS: 36415; 80048; 80061; 84443

== ENCOUNTER → 2021-07-01 13:41 | Outpatient (CLI) | payer MEDICARE, MEDICAID, SELFPAY ==
[2021-07-01 13:51] LABS: Appearance Urine UA CLOUDY; Bilirubin Urine UA NEGATIVE (NEGATIVE); Color Urine UA YELLOW; Glucose Urine UA TRACE g/dL (Negative); Ketones Urine UA NEGATIVE (NEGATIVE); Leukocyte Esterase Urine UA 3+ (NEGATIVE); Nitrite Urine UA POSITIVE (Negative); Occult Blood Urine UA TRACE-LYSED (Negative); Protein Urine UA NEGATIVE (Negative); Specific Gravity Urine UA 1.015 (1.000-1.035); Urobilinogen Urine UA 0.2 E.U./dL (0.2)
[2021-07-01 14:04] LABS: Bacteria Urine Many (>30); Culture Indicated Urine Specimen Cultured; RBC Urine None Seen (0-5/HPF); Squamous Epithelial Cell Urine 1-5 /HPF (0-5/HPF); WBC Urine 30-100/HPF (0-5/HPF)
[2021-07-01 15:30] LABS: Creatinine Urine Random 112.3 mg/dL
[2021-07-01 15:35] LABS: Microalbumi Creatinin Ratio Ur 15.1 ug/mg CR (<30); Microalbumin Urine Random 1.7 mg/dL (0-1.6)
== END ==
PROVIDERS: Family Provider Student in an Organized Health Care Education/Training Program; PCP Student in an Organized Health Care Education/Training Program; Referring Provider Student in an Organized Health Care Education/Training Program; Visit Provider Student in an Organized Health Care Education/Training Program
DX: E78.5 Hyperlipidemia, unspecified (principal); I10 Essential (primary) hypertension; Z79.899 Other long term (current) drug therapy
CPT/HCPCS: 81001; 82043; 82570; 87077; 87086; 87186

== ENCOUNTER → 2022-02-26 13:13 | Outpatient (CLI) | payer MEDICARE, MEDICAID, SELFPAY ==
--- NOTE | 2022-02-26 13:16 | DI.MG.S_ITS ---
BILATERAL DIGITAL SCREENING MAMMOGRAM 3D/2D WITH CAD: 02/26/2022 CLINICAL: Routine screening. Comparison is made to exams dated: 02/06/2021 mammogram and 12/04/2019 mammogram - [facility]. Both breasts are almost entirely fatty (category a/<25% glandular tissue). Current study was also evaluated with a Computer Aided Detection (CAD) system. No significant masses, calcifications, or other findings are seen in either breast. There has been no significant interval change. IMPRESSION: NEGATIVE There is no mammographic evidence of malignancy. A 1 year screening mammogram is recommended. Based on the Tyrer Cuzick model (a risk assessment model) the patient's lifetime risk is 6.3% and her 10 year risk is 1.0%. According to the ACR, ACS, and NCCN guidelines, an annual breast MRI exam along with mammogram is recommended if the patient's lifetime risk is 20% or greater. This exam was interpreted at Station ID: [id number]. NOTE: For mammograms, a report in lay terms will be sent to the patient. Approximately 15% of breast malignancies will not be visualized mammographically. In the management of a palpable breast mass, a negative mammogram must not discourage biopsy of a clinically suspicious lesion. Electronically Signed By: Raúl morales/jennifer:02/26/2022 14:57:02 letter sent: Normal Exam ACR BI-RADS Category 1: Negative [id number]
== END ==
PROVIDERS: Family Provider Student in an Organized Health Care Education/Training Program; PCP Student in an Organized Health Care Education/Training Program; Referring Provider Student in an Organized Health Care Education/Training Program; Visit Provider Student in an Organized Health Care Education/Training Program
DX: Z12.31 Encounter for screening mammogram for malignant neoplasm of breast (principal)
CPT/HCPCS: 77063; 77067

== ENCOUNTER 2022-07-01 09:45 | Outpatient (RCR) | payer MEDICARE, OTHER, MEDICAID, SELFPAY ==
--- NOTE | 2021-05-21 17:31 | PT.OIE ---
Current Diagnoses Multiple sclerosis (05/21/21) Paraplegia, incomplete (05/21/21) Visit Care Team Role Provider Type Rehan Zacarias MD Family Provider Physician Primary Care Provider Specialty: Internal Medicine Address: [address] [place] [address], [facility] [address], [place], [address] Email: [email or web address] Rufino Umaña MD Attending Provider Non-Staff Referring Provider Specialty: Psychiatry Address: [address] [place] [address], [address], [place], [address] Email: Physical Therapy Initial Evaluation PT-OP-A Visit Information Start: 05/20/21 17:44 Freq: Status: Active Protocol: Document 05/21/21 14:32 SAK (Rec: 05/21/21 15:20 SAK [id number]) Out-Patient Physical Therapy Visit Information Visit Information Visit Type Initial Evaluation Visit Start Time 14:32 Visit Stop Time 15:15 Total Visit Minutes 43 Visit Number 1 Evaluation Information Evaluation Date 05/21/21 Precautions Precautions esophageal stenosis negative response to overheating HTN related to medications, being weaned off and will start a new medication PT-OP-B Current Condition Start: 05/20/21 17:44 Freq: Status: Active Protocol: Document 05/21/21 14:32 SAK (Rec: 05/21/21 15:20 SAK [id number]) Current Condition History of Current Condition Onset Date 2 years Current Complaints MS with LE weakness right greater than left History of Current Condition Patient previously did land- based PT for MS. Now referred for aquatic PT. Main c/o are LE weakness, difficulty ambulating; 120' max with Fww needs w/c behind in case LE's give way, and balance difficulty. Doing HEP fairly consistently but not as much as I should. Lives in downstairs apartment, Aunt lives above and comes down to assist with exercises. Patient able to do most self- care by herself with some set- up assist from Aunt. Also c/ o tightness in LE's especially quads as well as cramping and right foot going out to the side with gait. Can't feel where her feet are due to loss of sensation in LE's. Fell 1x this month from sitting while reaching. Was able to transfer back to chair. Only walks when has help. Prior Treatments and Tests Land-based PT Future Testing and Treatments Planned none at this time. 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 Hobbies Unable to access the stage or green room with w/c. Personal Factors Other Personal Factors That May Effect assisted to appointments by Therapy/Recovery aunt PT-OP-C Subjective Start: 05/20/21 17:44 Freq: Status: Active Protocol: Document 05/21/21 14:32 [facility] (Rec: 05/21/21 17:31 [facility] [id number]) Patient Questionnaires ABC- Activity Specific Balance Confidence Scale ABC Score 14 PT-OP-D Balance Start: 05/20/21 17:44 Freq: Status: Active Protocol: Document 05/21/21 14:32 [facility] (Rec: 05/21/21 17:31 [facility] [id number]) Tinetti Balance Assessment Sitting Balance Sitting Balance Steady, safe Arising from Chair Ability to Arise Able, w/o using arms Standing Balance Immediate Standing Balance Steady with support Standing Balance Unsteady Nudged Response Begins to fall Standing with Eyes Closed Unsteady Turning Step Pattern Turning 360 Degrees Discontinuous steps Stability Turning 360 Degrees Unsteady, grabs/staggers Sitting Down Sitting Down Uses arms or unsteady Gait and Step Initiation of Gait Hesitancy, mult. attempts Right Foot Step Length Does not pass stance ft. Right Foot Step Height Does not clear floor Left Foot Step Length Does not pass stance foot Left Foot Step Height Does not clear floor Step Description Step Symmetry Step length appears equal Step Continuity Steps appear continuous Gait Description Path Description Mild/moderate deviation Trunk Description Marked sway or uses aide Walking Stance Heels apart Scoring and Interpretation Tinetti Composite Score (points) 8 PT-OP-G Mobility & Gait Start: 05/20/21 17:44 Freq: Status: Active Protocol: Document 05/21/21 14:32 [facility] (Rec: 05/21/21 17:31 [facility] [id number]) OP Mobility Evaluation Bed Mobility Rolling indep Supine to and from Sit indep Transfers Sit to Stand indep Bed to Chair Transfers indep Floor Transfers variable, most recentlky after fall was able to transfer back into w/c Wheelchair Management Type of Wheelchair manual Assessment Details Patient didn't bring own chair to PT today OP Gait Assessment Gait Gait Assistance Required: Standby Assistance Distance (Feet) 63 Assistive Devices Assistive Device Front Wheeled Walker Orthotic/Prosthetic Devices or Brace: No Gait Deviations General Gait Pattern Decreased Feet Clearance Factors Limiting Gait Function Factors Limiting Gait Function Abnormal Tonal Influences, Decreased Strength,Poor Balance Stair Climbing Evaluation Comments Stair Climbing Comments patient unable PT-OP-H Neuro Start: 05/20/21 17:44 Freq: Status: Active Protocol: Document 05/21/21 14:32 SAK (Rec: 05/21/21 17:31 SAK [id number]) Sensation Evaluation Gross Sensation Gross Sensation Left LE Impaired,Right LE Impaired Sensation Description Paresthesia Comments Summary Comments poor proprioception bilateral LE's; patient reports some better when walks barefoot at home, but has difficulty knowing where her feet are in space. Coordination Evaluation Comments Coordination Comments decreased speed and accuracy of movement bilateral LE's right greater than left PT-OP-M Strength Start: 05/20/21 17:44 Freq: Status: Active Protocol: Document 05/21/21 14:32 SAK (Rec: 05/21/21 17:31 [facility] [id number]) Hip Strength Hip Manual Muscle Testing Left Flexion (L2) 4 Good Extension (S1) 4- Good- Abduction 4- Good- Adduction 4 Good External Rotation 4- Good- Internal Rotation 4- Good- Right Flexion (L2) 4- Good- Extension (S1) 3+ Fair+ Abduction 3+ Fair+ Adduction 4- Good- External Rotation 3+ Fair+ Internal Rotation 4- Good- Knee Strength Knee Manual Muscle Testing Left Flexion (S2) 4+ Good+ Extension (L3) 4 Good Right Flexion (S2) 4 Good Extension (L3) 4- Good- Ankle/Foot Strength Ankle and Foot Manual Muscle Testing Left Dorsiflexion (L4) 4 Good Plantarflexion (S1) 4+ Good+ Inversion 4 Good Eversion (S1) 4+ Good+ Right Dorsiflexion (L4) 4- Good- Plantarflexion (S1) 4 Good Inversion 3+ Fair+ Eversion (S1) 4- Good- PT-OP-Q Treatments Start: 05/20/21 17:44 Freq: Status: Active Protocol: Document 05/21/21 14:32 [facility] (Rec: 05/21/21 17:31 [facility] [id number]) Self-Care/Home Management Treatment Education Patient Education Fall Risk,Home Exercise Program,Safety Other Education Discussion of aquatic therapy, benefits, logistics and preparation PT-OP-T Assessment and Plan Start: 05/20/21 17:44 Freq: Status: Active Protocol: Document 05/21/21 14:32 [facility] (Rec: 05/21/21 17:31 [facility] [id number]) Physical Therapy Assessment Rehab Potential Rehabilitation Potential Good Evaluation Complexity Number of Personal Factors/Comorbidities 1-2 Number of Body Systems Impaired 3 Clinical Presentation at Evaluation Evolving Impairments Impairments Balance,Gait,Strength Goals Four Impairment LE weakness Impairment 5x sit to stand test 17 sec Fpc Goal (LTG) Improve 5x sit to stand test to no greater than 12 sec as measure of improved functional LE strength LTG Duration 08/19/21 Three Impairment no current aquatic exercise Fpc Goal (LTG) Patient will be safe and independent with aquatic exercise addressing LE strengthening, gait and balance. LTG Duration 08/19/21 One Impairment lack of independence with her walking in her home Gyn Physician Goal (LTG) Patient will be able to ambulate safely for short distance ambulation in her home independently to improve her independence and quality of life. LTG Duration 08/19/21 Two Impairment Decreased gait and balance ability Impairment Tinetti gait and balance assessment 8/28 indicating patient at high risk for falls Activities-specific Balance Confidence (ABC) scale 14% Fpc Goal (LTG) Improve Tinetti gait and balance score to at least 15/ 28 to decrease patient risk for falls Improve ABC scale to at least 30% as measure of improved confidence in her mobility LTG Duration 08/19/21 Assessment Summary Assessment Patient presents with c/o LE weakness, gait and balance dysfunction related to diagnosis of MS 2 years ago. She spends the majority of the day in her wheelchair, walking only when her aunt is able to help her with her exercises and push a wheelchair behind her for safety when she walks with FWW max of about 70' at home. She has previously done land- based PT and is independent with her HEP. She is now referred for aquatic physical therapy to work on her gait, balance, and strengthening. She reports being very comfortable in the water, previously did swim team. Feel she will benefit highly from aquatic therapy as a safe place to work on her gait, balance, and functional LE strength. Physical Therapy Plan Frequency and Duration Frequency of Treatment 1x/Week Duration of Treatment 12 wks Plan of Care Start Date 05/21/21 Plan of Care End Date 08/19/21 Therapeutic Interventions Therapeutic Interventions Aquatic Therapy Next Visit Focus/Plan Next Note Type Treatment Note Next Visit Plan Initiate aquatic therapy
--- NOTE | 2021-05-21 17:31 | PT.OPPOC ---
Physical, Occupational & Speech Therapy At [facility] Current Diagnoses Multiple sclerosis (05/21/21) Paraplegia, incomplete (05/21/21) Visit Care Team Role Provider Type Rehan Zacarias MD Family Provider Physician Primary Care Provider Specialty: Internal Medicine Address: [address] [place] [address] [address], [address] Email: [email or web address] Rufino Umaña MD Attending Provider Non-Staff Referring Provider Specialty: Psychiatry Address: [address] [place] [address], [address], [place], [address] Email: Plan Of Care PT-OP-T Assessment and Plan Start: 05/20/21 17:44 Freq: Status: Active Protocol: Document 05/21/21 14:32 SAK (Rec: 05/21/21 17:31 SAK [id number]) Physical Therapy Assessment Rehab Potential Rehabilitation Potential Good Evaluation Complexity Number of Personal Factors/Comorbidities 1-2 Number of Body Systems Impaired 3 Clinical Presentation at Evaluation Evolving Impairments Impairments Balance,Gait,Strength Goals Four Impairment LE weakness Impairment 5x sit to stand test 17 sec Mcfp Goal (LTG) Improve 5x sit to stand test to no greater than 12 sec as measure of improved functional LE strength LTG Duration 08/19/21 Three Impairment no current aquatic exercise Mcfp Goal (LTG) Patient will be safe and independent with aquatic exercise addressing LE strengthening, gait and balance. LTG Duration 08/19/21 One Impairment lack of independence with her walking in her home Corporate Relations Manager Goal (LTG) Patient will be able to ambulate safely for short distance ambulation in her home independently to improve her independence and quality of life. LTG Duration 08/19/21 Two Impairment Decreased gait and balance ability Impairment Tinetti gait and balance assessment 8 indicating patient at high risk for falls Activities-specific Balance Confidence (ABC) scale 14% Corporate Relations Manager Goal (LTG) Improve Tinetti gait and balance score to at least 15/ 28 to decrease patient risk for falls Improve ABC scale to at least 30% as measure of improved confidence in her mobility LTG Duration 08/19/21 Assessment Summary Assessment Patient presents with c/o LE weakness, gait and balance dysfunction related to diagnosis of MS 2 years ago. She spends the majority of the day in her wheelchair, walking only when her aunt is able to help her with her exercises and push a wheelchair behind her for safety when she walks with FWW max of about 70' at home. She has previously done land- based PT and is independent with her HEP. She is now referred for aquatic physical therapy to work on her gait, balance, and strengthening. She reports being very comfortable in the water, previously did swim team. Feel she will benefit highly from aquatic therapy as a safe place to work on her gait, balance, and functional LE strength. Physical Therapy Plan Frequency and Duration Frequency of Treatment 1x/Week Duration of Treatment 12 wks Plan of Care Start Date 05/21/21 Plan of Care End Date 08/19/21 Therapeutic Interventions Therapeutic Interventions Aquatic Therapy Next Visit Focus/Plan Next Note Type Treatment Note Next Visit Plan Initiate aquatic therapy Plan of Care Dates Plan of Care Start Date 05/21/21 Plan of Care End Date 08/19/21 Electronically Signed by: Bertha Redding, PT 05/21/21 0129 Please Sign and Return: I have reviewed this Plan of Care and certify that the skilled therapy services above are required to meet the patient?s needs. Physician Signature Date Printed Name and Credentials Clinical Instructor Signature Printed Name and Credentials
--- NOTE | 2021-05-28 15:34 | PT.OTN ---
Current Diagnoses Multiple sclerosis (05/28/21) Paraplegia, incomplete (05/28/21) Physical Therapy Treatment Note PT-OP-A Visit Information Start: 05/20/21 17:44 Freq: Status: Active Protocol: Document 05/28/21 15:10 NANCY (Rec: 05/28/21 15:34 LJ [id number]) Out-Patient Physical Therapy Visit Information Visit Information Visit Type Aquatic Treatment Note Visit Start Time 12:30 Visit Stop Time 01:15 Total Visit Minutes 45 Visit Number 2 Number of COAL BRIQUETTE MACHINE OPERATOR Visits 1 Evaluation Information Evaluation Date 05/21/21 Precautions Precautions esophageal stenosis negative response to overheating HTN related to medications, being weaned off and will start a new medication PT-OP-B Current Condition Start: 05/20/21 17:44 Freq: Status: Active Protocol: Document 05/21/21 14:32 SAK (Rec: 05/21/21 15:20 SAK [id number]) Current Condition History of Current Condition Onset Date 2 years Current Complaints MS with LE weakness right greater than left History of Current Condition Patient previously did land- based PT for MS. Now referred for aquatic PT. Main c/o are LE weakness, difficulty ambulating; 120' max with Fww needs w/c behind in case LE's give way, and balance difficulty. Doing HEP fairly consistently but not as much as I should. Lives in downstairs apartment, Aunt lives above and comes down to assist with exercises. Patient able to do most self- care by herself with some set- up assist from Aunt. Also c/ o tightness in LE's especially quads as well as cramping and right foot going out to the side with gait. Can't feel where her feet are due to loss of sensation in LE's. Fell 1x this month from sitting while reaching. Was able to transfer back to chair. Only walks when has help. Prior Treatments and Tests Land-based PT Future Testing and Treatments Planned none at this time. 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 Hobbies Unable to access the stage or green room with w/c. Personal Factors Other Personal Factors That May Effect assisted to appointments by Therapy/Recovery aunt PT-OP-C Subjective Start: 05/20/21 17:44 Freq: Status: Active Protocol: Document 05/28/21 15:10 LJ (Rec: 05/28/21 15:34 LJ [id number]) Patient Questionnaires ABC- Activity Specific Balance Confidence Scale ABC Score 14 PT-OP-D Balance Start: 05/20/21 17:44 Freq: Status: Active Protocol: Document 05/21/21 14:32 [facility] (Rec: 05/21/21 17:31 SAK [id number]) Tinetti Balance Assessment Sitting Balance Sitting Balance Steady, safe Arising from Chair Ability to Arise Able, w/o using arms Standing Balance Immediate Standing Balance Steady with support Standing Balance Unsteady Nudged Response Begins to fall Standing with Eyes Closed Unsteady Turning Step Pattern Turning 360 Degrees Discontinuous steps Stability Turning 360 Degrees Unsteady, grabs/staggers Sitting Down Sitting Down Uses arms or unsteady Gait and Step Initiation of Gait Hesitancy, mult. attempts Right Foot Step Length Does not pass stance ft. Right Foot Step Height Does not clear floor Left Foot Step Length Does not pass stance foot Left Foot Step Height Does not clear floor Step Description Step Symmetry Step length appears equal Step Continuity Steps appear continuous Gait Description Path Description Mild/moderate deviation Trunk Description Marked sway or uses aide Walking Stance Heels apart Scoring and Interpretation Tinetti Composite Score (points) 8 PT-OP-G Mobility & Gait Start: 05/20/21 17:44 Freq: Status: Active Protocol: Document 05/21/21 14:32 [facility] (Rec: 05/21/21 17:31 [facility] [id number]) OP Mobility Evaluation Bed Mobility Rolling indep Supine to and from Sit indep Transfers Sit to Stand indep Bed to Chair Transfers indep Floor Transfers variable, most recentlky after fall was able to transfer back into w/c Wheelchair Management Type of Wheelchair manual Assessment Details Patient didn't bring own chair to PT today OP Gait Assessment Gait Gait Assistance Required: Standby Assistance Distance (Feet) 63 Assistive Devices Assistive Device Front Wheeled Walker Orthotic/Prosthetic Devices or Brace: No Gait Deviations General Gait Pattern Decreased Feet Clearance Factors Limiting Gait Function Factors Limiting Gait Function Abnormal Tonal Influences, Decreased Strength,Poor Balance Stair Climbing Evaluation Comments Stair Climbing Comments patient unable PT-OP-H Neuro Start: 05/20/21 17:44 Freq: Status: Active Protocol: Document 05/21/21 14:32 SAK (Rec: 05/21/21 17:31 SAK [id number]) Sensation Evaluation Gross Sensation Gross Sensation Left LE Impaired,Right LE Impaired Sensation Description Paresthesia Comments Summary Comments poor proprioception bilateral LE's; patient reports some better when walks barefoot at home, but has difficulty knowing where her feet are in space. Coordination Evaluation Comments Coordination Comments decreased speed and accuracy of movement bilateral LE's right greater than left PT-OP-M Strength Start: 05/20/21 17:44 Freq: Status: Active Protocol: Document 05/21/21 14:32 SAK (Rec: 05/21/21 17:31 SAK [id number]) Hip Strength Hip Manual Muscle Testing Left Flexion (L2) 4 Good Extension (S1) 4- Good- Abduction 4- Good- Adduction 4 Good External Rotation 4- Good- Internal Rotation 4- Good- Right Flexion (L2) 4- Good- Extension (S1) 3+ Fair+ Abduction 3+ Fair+ Adduction 4- Good- External Rotation 3+ Fair+ Internal Rotation 4- Good- Knee Strength Knee Manual Muscle Testing Left Flexion (S2) 4+ Good+ Extension (L3) 4 Good Right Flexion (S2) 4 Good Extension (L3) 4- Good- Ankle/Foot Strength Ankle and Foot Manual Muscle Testing Left Dorsiflexion (L4) 4 Good Plantarflexion (S1) 4+ Good+ Inversion 4 Good Eversion (S1) 4+ Good+ Right Dorsiflexion (L4) 4- Good- Plantarflexion (S1) 4 Good Inversion 3+ Fair+ Eversion (S1) 4- Good- PT-OP-Q Treatments Start: 05/20/21 17:44 Freq: Status: Active Protocol: Document 05/21/21 14:32 SAK (Rec: 05/21/21 17:31 SAK [id number]) Self-Care/Home Management Treatment Education Patient Education Fall Risk,Home Exercise Program,Safety Other Education Discussion of aquatic therapy, benefits, logistics and preparation PT-OP-S Aquatic Treatment Start: 05/20/21 17:44 Freq: Status: Active Protocol: Document 05/28/21 15:10 LJ (Rec: 05/28/21 15:34 LJ [id number]) Aquatics Treatment Pool Entry/Exit Pool Entry/Exit Method Lift Assistance Standby Assistance,Verbal Cues Comments pt able to transfer indep Water Walking directional changes Water Level Chest Level Walking Equipment walking frame Level of Assistance Standby Assistance,Verbal Cues stop start Water Level Chest Level Walking Equipment walking frame Level of Assistance Standby Assistance,Verbal Cues Marching Water Level Chest Level Walking Equipment walking frame Level of Assistance Standby Assistance,Verbal Cues Sideways Water Level Chest Level Walking Equipment walking frame Level of Assistance Standby Assistance,Verbal Cues Backwards Water Level Chest Level Walking Equipment walking frame Level of Assistance Standby Assistance,Verbal Cues forward Water Level Chest Level Walking Equipment walking frame Level of Assistance Standby Assistance,Verbal Cues Comments pt also walking with BBs and lg blue float end of treatment Lower Extremity Exercises heels to toes Details at wall Body Position Standing Water Level Chest Level Reps/Duration 10 ea 4 joselin hip Details at wall Body Position Standing Water Level Chest Level Reps/Duration 10 ea Comments hh on wall Lower Extremity Stretches hip flexor, quads, HS, gastroc Details hh on wall Body Position Standing Water Level Chest Level Equipment Small Noodle Reps/Duration 30 x 2 B Comments noodle with HS-assisted Upper Extremity Exercises trunk rotation Details at wall Body Position Sitting Water Level Neck Level Reps/Duration 10 Comments shoulders in scaption HAB, HAD, B pull down Details at wall Body Position Sitting Water Level Neck Level Reps/Duration 10 ea Comments emphasis core stability Upper Extremity Stretches corner stretch Details at wall Body Position Standing Reps/Duration 45 sec [place] Activities [place] Activities Bicycle Equipment blue float, lg noodle, #2 wts Duration 10 min Comments gentle bicycle PT-OP-T Assessment and Plan Start: 05/20/21 17:44 Freq: Status: Active Protocol: Document 05/28/21 15:10 NANCY (Rec: 05/28/21 15:34 [id number]) Physical Therapy Assessment Rehab Potential Rehabilitation Potential Good Evaluation Complexity Number of Personal Factors/Comorbidities 1-2 Number of Body Systems Impaired 3 Clinical Presentation at Evaluation Evolving Impairments Impairments Balance,Gait,Strength Goals Four Impairment LE weakness Impairment 5x sit to stand test 17 sec Penit[facility]iary Goal (LTG) Improve 5x sit to stand test to no greater than 12 sec as measure of improved functional LE strength LTG Duration 08/19/21 Three Impairment no current aquatic exercise Penitentiary Goal (LTG) Patient will be safe and independent with aquatic exercise addressing LE strengthening, gait and balance. LTG Duration 08/19/21 One Impairment lack of independence with her walking in her home Penitentiary Goal (LTG) Patient will be able to ambulate safely for short distance ambulation in her home independently to improve her independence and quality of life. LTG Duration 08/19/21 Two Impairment Decreased gait and balance ability Impairment Tinetti gait and balance assessment 8/ indicating patient at high risk for falls Activities-specific Balance Confidence (ABC) scale 14% Desizing Machine Operator Head End Goal (LTG) Improve Tinetti gait and balance score to at least 15/ 28 to decrease patient risk for falls Improve ABC scale to at least 30% as measure of improved confidence in her mobility LTG Duration 08/19/21 Assessment Summary Assessment Pt tolerated exercises well and performed better than anticipated with stop/start and directional changes walking exercises. Post deep water she trialed walking with the blue float and lg noodle and was able to maintain balance with only 2 slight LOB episodes. Physical Therapy Plan Frequency and Duration Frequency of Treatment 1x/Week Duration of Treatment 12 wks Plan of Care Start Date 05/21/21 Plan of Care End Date 08/19/21 Therapeutic Interventions Therapeutic Interventions Aquatic Therapy Next Visit Focus/Plan Next Note Type Treatment Note Next Visit Plan assess AT and progress with walking, balance, LE strengthening, core strengthening to improve ambulation and function on land
--- NOTE | 2021-06-18 17:25 | PT.OTN ---
Current Diagnoses Multiple sclerosis (06/18/21) Paraplegia, incomplete (06/18/21) Physical Therapy Treatment Note PT-OP-A Visit Information Start: 05/20/21 17:44 Freq: Status: Active Protocol: Document 06/18/21 17:15 SAK (Rec: 06/18/21 17:25 SAK [id number]) Out-Patient Physical Therapy Visit Information Visit Information Visit Type Aquatic Treatment Note Visit Start Time 12:30 Visit Stop Time 13:15 Total Visit Minutes 45 Visit Number 3 Number of NUCLEAR PLANT OPERATOR Visits 0 Evaluation Information Evaluation Date 05/21/21 Precautions Precautions esophageal stenosis negative response to overheating HTN related to medications, being weaned off and will start a new medication PT-OP-B Current Condition Start: 05/20/21 17:44 Freq: Status: Active Protocol: Document 05/21/21 14:32 SAK (Rec: 05/21/21 15:20 SAK [id number]) Current Condition History of Current Condition Onset Date 2 years Current Complaints MS with LE weakness right greater than left History of Current Condition Patient previously did land- based PT for MS. Now referred for aquatic PT. Main c/o are LE weakness, difficulty ambulating; 120' max with Fww needs w/c behind in case LE's give way, and balance difficulty. Doing HEP fairly consistently but not as much as I should. Lives in downstairs apartment, Aunt lives above and comes down to assist with exercises. Patient able to do most self- care by herself with some set- up assist from Aunt. Also c/ o tightness in LE's especially quads as well as cramping and right foot going out to the side with gait. Can't feel where her feet are due to loss of sensation in LE's. Fell 1x this month from sitting while reaching. Was able to transfer back to chair. Only walks when has help. Prior Treatments and Tests Land-based PT Future Testing and Treatments Planned none at this time. 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 Hobbies Unable to access the stage or green room with w/c. Personal Factors Other Personal Factors That May Effect assisted to appointments by Therapy/Recovery aunt PT-OP-C Subjective Start: 05/20/21 17:44 Freq: Status: Active Protocol: Document 06/18/21 17:15 [facility] (Rec: 06/18/21 17:25 [facility] [id number]) OP-PT Subjective Patient Comments Patient Comments Reports she has felt weaker with medication change, is going back on old medication with guidance of physician. PT-OP-D Balance Start: 05/20/21 17:44 Freq: Status: Active Protocol: Document 05/21/21 14:32 [facility] (Rec: 05/21/21 17:31 [facility] [id number]) Tinetti Balance Assessment Sitting Balance Sitting Balance Steady, safe Arising from Chair Ability to Arise Able, w/o using arms Standing Balance Immediate Standing Balance Steady with support Standing Balance Unsteady Nudged Response Begins to fall Standing with Eyes Closed Unsteady Turning Step Pattern Turning 360 Degrees Discontinuous steps Stability Turning 360 Degrees Unsteady, grabs/staggers Sitting Down Sitting Down Uses arms or unsteady Gait and Step Initiation of Gait Hesitancy, mult. attempts Right Foot Step Length Does not pass stance ft. Right Foot Step Height Does not clear floor Left Foot Step Length Does not pass stance foot Left Foot Step Height Does not clear floor Step Description Step Symmetry Step length appears equal Step Continuity Steps appear continuous Gait Description Path Description Mild/moderate deviation Trunk Description Marked sway or uses aide Walking Stance Heels apart Scoring and Interpretation Tinetti Composite Score (points) 8 PT-OP-G Mobility & Gait Start: 05/20/21 17:44 Freq: Status: Active Protocol: Document 05/21/21 14:32 [facility] (Rec: 05/21/21 17:31 [facility] [id number]) OP Mobility Evaluation Bed Mobility Rolling indep Supine to and from Sit indep Transfers Sit to Stand indep Bed to Chair Transfers indep Floor Transfers variable, most recentlky after fall was able to transfer back into w/c Wheelchair Management Type of Wheelchair manual Assessment Details Patient didn't bring own chair to PT today OP Gait Assessment Gait Gait Assistance Required: Standby Assistance Distance (Feet) 63 Assistive Devices Assistive Device Front Wheeled Walker Orthotic/Prosthetic Devices or Brace: No Gait Deviations General Gait Pattern Decreased Feet Clearance Factors Limiting Gait Function Factors Limiting Gait Function Abnormal Tonal Influences, Decreased Strength,Poor Balance Stair Climbing Evaluation Comments Stair Climbing Comments patient unable PT-OP-H Neuro Start: 05/20/21 17:44 Freq: Status: Active Protocol: Document 05/21/21 14:32 [facility] (Rec: 05/21/21 17:31 [facility] [id number]) Sensation Evaluation Gross Sensation Gross Sensation Left LE Impaired,Right LE Impaired Sensation Description Paresthesia Comments Summary Comments poor proprioception bilateral LE's; patient reports some better when walks barefoot at home, but has difficulty knowing where her feet are in space. Coordination Evaluation Comments Coordination Comments decreased speed and accuracy of movement bilateral LE's right greater than left PT-OP-M Strength Start: 05/20/21 17:44 Freq: Status: Active Protocol: Document 05/21/21 14:32 [facility] (Rec: 05/21/21 17:31 [facility] [id number]) Hip Strength Hip Manual Muscle Testing Left Flexion (L2) 4 Good Extension (S1) 4- Good- Abduction 4- Good- Adduction 4 Good External Rotation 4- Good- Internal Rotation 4- Good- Right Flexion (L2) 4- Good- Extension (S1) 3+ Fair+ Abduction 3+ Fair+ Adduction 4- Good- External Rotation 3+ Fair+ Internal Rotation 4- Good- Knee Strength Knee Manual Muscle Testing Left Flexion (S2) 4+ Good+ Extension (L3) 4 Good Right Flexion (S2) 4 Good Extension (L3) 4- Good- Ankle/Foot Strength Ankle and Foot Manual Muscle Testing Left Dorsiflexion (L4) 4 Good Plantarflexion (S1) 4+ Good+ Inversion 4 Good Eversion (S1) 4+ Good+ Right Dorsiflexion (L4) 4- Good- Plantarflexion (S1) 4 Good Inversion 3+ Fair+ Eversion (S1) 4- Good- PT-OP-Q Treatments Start: 05/20/21 17:44 Freq: Status: Active Protocol: Document 05/21/21 14:32 [facility] (Rec: 05/21/21 17:31 [facility] [id number]) Self-Care/Home Management Treatment Education Patient Education Fall Risk,Home Exercise Program,Safety Other Education Discussion of aquatic therapy, benefits, logistics and preparation PT-OP-S Aquatic Treatment Start: 05/20/21 17:44 Freq: Status: Active Protocol: Document 06/18/21 17:15 SAK (Rec: 06/18/21 17:25 [facility] [id number]) Aquatics Treatment Pool Entry/Exit Pool Entry/Exit Method Lift Assistance Standby Assistance,Verbal Cues Comments pt able to transfer indep Water Walking march kick Water Level Chest Level Walking Equipment [place] Float Level of Assistance Standby Assistance,Verbal Cues Marching Water Level Chest Level Walking Equipment [place] Float Level of Assistance Standby Assistance,Verbal Cues Sideways Water Level Chest Level Walking Equipment [place] Float Level of Assistance Standby Assistance,Verbal Cues Backwards Water Level Chest Level Walking Equipment [place] Float Level of Assistance Standby Assistance,Verbal Cues forward Water Level Chest Level Walking Equipment nez perce float then no equipment Level of Assistance Standby Assistance,Verbal Cues Comments pt also walking with BBs and lg blue float end of treatment Lower Extremity Exercises heels to toes Details at wall Body Position Standing Water Level Chest Level Reps/Duration 10 ea 4 joselin hip Details at wall Body Position Standing Water Level Chest Level Reps/Duration 10 ea Comments hh on wall Upper Extremity Exercises hor ab/ad Reps/Duration 10x Comments no support from wall [place] Activities [place] Activities Bicycle,Cross Country Equipment blue float, lg noodle, #2 wts Duration 10 min Comments gentle bicycle, cross country, high knees, hang PT-OP-T Assessment and Plan Start: 05/20/21 17:44 Freq: Status: Active Protocol: Document 06/18/21 17:15 [facility] (Rec: 06/18/21 17:25 [facility] [id number]) Physical Therapy Assessment Goals Four Impairment LE weakness Impairment 5x sit to stand test 17 sec Digital Composer Goal (LTG) Improve 5x sit to stand test to no greater than 12 sec as measure of improved functional LE strength LTG Duration 08/19/21 Three Impairment no current aquatic exercise Snf Goal (LTG) Patient will be safe and independent with aquatic exercise addressing LE strengthening, gait and balance. LTG Duration 08/19/21 One Impairment lack of independence with her walking in her home Snf Goal (LTG) Patient will be able to ambulate safely for short distance ambulation in her home independently to improve her independence and quality of life. LTG Duration 08/19/21 Two Impairment Decreased gait and balance ability Impairment Tinetti gait and balance assessment 8 indicating patient at high risk for falls Activities-specific Balance Confidence (ABC) scale 14% Digital Composer Goal (LTG) Improve Tinetti gait and balance score to at least 15/ 28 to decrease patient risk for falls Improve ABC scale to at least 30% as measure of improved confidence in her mobility LTG Duration 08/19/21 Assessment Summary Assessment Patient initially started with nez perce float, but by end of session in shallow water was able to walk forward without flotation assistance. Good progress with aquatic exercise today. Physical Therapy Plan Frequency and Duration Frequency of Treatment 1x/Week Duration of Treatment 12 wks Plan of Care Start Date 05/21/21 Plan of Care End Date 08/19/21 Therapeutic Interventions Therapeutic Interventions Aquatic Therapy Next Visit Focus/Plan Next Note Type Treatment Note Next Visit Plan work on balance recovery, gait with no equipment as tolerated, modified swimming if tolerated.
--- NOTE | 2021-07-02 11:45 | PT.OTN ---
Current Diagnoses Multiple sclerosis (07/02/21) Paraplegia, incomplete (07/02/21) Physical Therapy Treatment Note PT-OP-A Visit Information Start: 05/20/21 17:44 Freq: Status: Active Protocol: Document 07/02/21 08:19 [facility] (Rec: 07/03/21 08:26 [facility] [id number]) Out-Patient Physical Therapy Visit Information Visit Information Visit Type Aquatic Treatment Note Visit Start Time 11:45 Visit Stop Time 12:30 Total Visit Minutes 45 Visit Number 4 Number of PHILOSOPHY SPECIALIST Visits 0 Evaluation Information Evaluation Date 05/21/21 Precautions Precautions esophageal stenosis negative response to overheating HTN related to medications, being weaned off and will start a new medication PT-OP-B Current Condition Start: 05/20/21 17:44 Freq: Status: Active Protocol: Document 05/21/21 14:32 [facility] (Rec: 05/21/21 15:20 [facility] [id number]) Current Condition History of Current Condition Onset Date 2 years Current Complaints MS with LE weakness right greater than left History of Current Condition Patient previously did land- based PT for MS. Now referred for aquatic PT. Main c/o are LE weakness, difficulty ambulating; 120' max with Fww needs w/c behind in case LE's give way, and balance difficulty. Doing HEP fairly consistently but not as much as I should. Lives in downstairs apartment, Aunt lives above and comes down to assist with exercises. Patient able to do most self- care by herself with some set- up assist from Aunt. Also c/ o tightness in LE's especially quads as well as cramping and right foot going out to the side with gait. Can't feel where her feet are due to loss of sensation in LE's. Fell 1x this month from sitting while reaching. Was able to transfer back to chair. Only walks when has help. Prior Treatments and Tests Land-based PT Future Testing and Treatments Planned none at this time. 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 Hobbies Unable to access the stage or green room with w/c. Personal Factors Other Personal Factors That May Effect assisted to appointments by Therapy/Recovery aunt PT-OP-C Subjective Start: 05/20/21 17:44 Freq: Status: Active Protocol: Document 07/02/21 08:19 [facility] (Rec: 07/03/21 08:26 [facility] [id number]) OP-PT Subjective Patient Comments Patient Comments No new c/o. Happy to be back in water for aquatic therapy. Walks up to 75 feet at home with walker and assistance of caregiver with chair behind for when she needs to sit. PT-OP-D Balance Start: 05/20/21 17:44 Freq: Status: Active Protocol: Document 05/21/21 14:32 [facility] (Rec: 05/21/21 17:31 [facility] [id number]) Tinetti Balance Assessment Sitting Balance Sitting Balance Steady, safe Arising from Chair Ability to Arise Able, w/o using arms Standing Balance Immediate Standing Balance Steady with support Standing Balance Unsteady Nudged Response Begins to fall Standing with Eyes Closed Unsteady Turning Step Pattern Turning 360 Degrees Discontinuous steps Stability Turning 360 Degrees Unsteady, grabs/staggers Sitting Down Sitting Down Uses arms or unsteady Gait and Step Initiation of Gait Hesitancy, mult. attempts Right Foot Step Length Does not pass stance ft. Right Foot Step Height Does not clear floor Left Foot Step Length Does not pass stance foot Left Foot Step Height Does not clear floor Step Description Step Symmetry Step length appears equal Step Continuity Steps appear continuous Gait Description Path Description Mild/moderate deviation Trunk Description Marked sway or uses aide Walking Stance Heels apart Scoring and Interpretation Tinetti Composite Score (points) 8 PT-OP-G Mobility & Gait Start: 05/20/21 17:44 Freq: Status: Active Protocol: Document 05/21/21 14:32 [facility] (Rec: 05/21/21 17:31 [facility] [id number]) OP Mobility Evaluation Bed Mobility Rolling indep Supine to and from Sit indep Transfers Sit to Stand indep Bed to Chair Transfers indep Floor Transfers variable, most recentlky after fall was able to transfer back into w/c Wheelchair Management Type of Wheelchair manual Assessment Details Patient didn't bring own chair to PT today OP Gait Assessment Gait Gait Assistance Required: Standby Assistance Distance (Feet) 63 Assistive Devices Assistive Device Front Wheeled Walker Orthotic/Prosthetic Devices or Brace: No Gait Deviations General Gait Pattern Decreased Feet Clearance Factors Limiting Gait Function Factors Limiting Gait Function Abnormal Tonal Influences, Decreased Strength,Poor Balance Stair Climbing Evaluation Comments Stair Climbing Comments patient unable PT-OP-H Neuro Start: 05/20/21 17:44 Freq: Status: Active Protocol: Document 05/21/21 14:32 [facility] (Rec: 05/21/21 17:31 [facility] [id number]) Sensation Evaluation Gross Sensation Gross Sensation Left LE Impaired,Right LE Impaired Sensation Description Paresthesia Comments Summary Comments poor proprioception bilateral LE's; patient reports some better when walks barefoot at home, but has difficulty knowing where her feet are in space. Coordination Evaluation Comments Coordination Comments decreased speed and accuracy of movement bilateral LE's right greater than left PT-OP-M Strength Start: 05/20/21 17:44 Freq: Status: Active Protocol: Document 05/21/21 14:32 [facility] (Rec: 05/21/21 17:31 [facility] [id number]) Hip Strength Hip Manual Muscle Testing Left Flexion (L2) 4 Good Extension (S1) 4- Good- Abduction 4- Good- Adduction 4 Good External Rotation 4- Good- Internal Rotation 4- Good- Right Flexion (L2) 4- Good- Extension (S1) 3+ Fair+ Abduction 3+ Fair+ Adduction 4- Good- External Rotation 3+ Fair+ Internal Rotation 4- Good- Knee Strength Knee Manual Muscle Testing Left Flexion (S2) 4+ Good+ Extension (L3) 4 Good Right Flexion (S2) 4 Good Extension (L3) 4- Good- Ankle/Foot Strength Ankle and Foot Manual Muscle Testing Left Dorsiflexion (L4) 4 Good Plantarflexion (S1) 4+ Good+ Inversion 4 Good Eversion (S1) 4+ Good+ Right Dorsiflexion (L4) 4- Good- Plantarflexion (S1) 4 Good Inversion 3+ Fair+ Eversion (S1) 4- Good- PT-OP-Q Treatments Start: 05/20/21 17:44 Freq: Status: Active Protocol: Document 05/21/21 14:32 [facility] (Rec: 05/21/21 17:31 [facility] [id number]) Self-Care/Home Management Treatment Education Patient Education Fall Risk,Home Exercise Program,Safety Other Education Discussion of aquatic therapy, benefits, logistics and preparation PT-OP-S Aquatic Treatment Start: 05/20/21 17:44 Freq: Status: Active Protocol: Document 07/02/21 08:19 [facility] (Rec: 07/03/21 08:26 [facility] [id number]) Aquatics Treatment Pool Entry/Exit Pool Entry/Exit Method Lift Assistance Standby Assistance,Verbal Cues Comments pt able to transfer indep Water Walking straight leg march Walking Equipment [place] Float Level of Assistance Standby Assistance,Verbal Cues Comments 2# wt march kick Water Level Chest Level Walking Equipment [place] Float Level of Assistance Standby Assistance,Verbal Cues Marching Water Level Chest Level Walking Equipment [place] Float Level of Assistance Standby Assistance,Verbal Cues Comments second lap no float assist Sideways Water Level Chest Level Walking Equipment [place] Float Level of Assistance Standby Assistance,Verbal Cues Comments second lap no float assist Backwards Water Level Chest Level Walking Equipment [place] Float Level of Assistance Standby Assistance,Verbal Cues Comments second lap no float assist forward Water Level Chest Level Walking Equipment [place] float then no equipment Level of Assistance Standby Assistance,Verbal Cues Comments pt also walking with BBs and lg blue float end of treatment Lower Extremity Exercises step-ups Details bottom stair chest to waist level Comments bilateral railings min support heels to toes Body Position Standing Water Level Chest Level Equipment barbells Reps/Duration 10 ea 4 joselin hip Body Position Standing Water Level Chest Level Equipment barbells Reps/Duration 10 ea Lower Extremity Stretches hip flexor, quads, HS, gastroc Details hh on wall Body Position Standing Water Level Chest Level Equipment Small Noodle Reps/Duration 30 x 2 B Comments noodle with HS-assisted Upper Extremity Exercises hor ab/ad Reps/Duration 10x Comments no support from wall HAB, HAD, B pull down Details at wall Body Position Sitting Water Level Neck Level Equipment small barbells Reps/Duration 10 ea Comments emphasis core stability [place] Activities [place] Activities Bicycle,Cross Country,Running Equipment blue [place] float, 2# wts PT-OP-T Assessment and Plan Start: 05/20/21 17:44 Freq: Status: Active Protocol: Document 07/02/21 08:19 [facility] (Rec: 07/03/21 08:26 [facility] [id number]) Physical Therapy Assessment Rehab Potential Rehabilitation Potential Good Impairments Impairments Balance,Gait,Strength Goals Four Impairment LE weakness Impairment 5x sit to stand test 17 sec Intermediate Goal (LTG) Improve 5x sit to stand test to no greater than 12 sec as measure of improved functional LE strength LTG Duration 08/19/21 Three Impairment no current aquatic exercise Intermediate Goal (LTG) Patient will be safe and independent with aquatic exercise addressing LE strengthening, gait and balance. LTG Duration 08/19/21 One Impairment lack of independence with her walking in her home Intermediate Goal (LTG) Patient will be able to ambulate safely for short distance ambulation in her home independently to improve her independence and quality of life. LTG Duration 08/19/21 Two Impairment Decreased gait and balance ability Impairment Tinetti gait and balance assessment 11/16 indicating patient at high risk for falls Activities-specific Balance Confidence (ABC) scale 14% Assistant Associate Professor Goal (LTG) Improve Tinetti gait and balance score to at least 15/ 28 to decrease patient risk for falls Improve ABC scale to at least 30% as measure of improved confidence in her mobility LTG Duration 08/19/21 Assessment Summary Assessment Able to progress LE ex previously with hand support at wall to doing holding barbells for unstable support; does up to [address] hip before has to put foot down for balance. Added straight- leg march shallow and deep. Physical Therapy Plan Frequency and Duration Frequency of Treatment 1x/Week Duration of Treatment 12 wks Plan of Care Start Date 05/21/21 Plan of Care End Date 08/19/21 Next Visit Focus/Plan Next Note Type Treatment Note Next Visit Plan work on balance recovery, gait with no equipment as tolerated, modified swimming if tolerated.
--- NOTE | 2021-07-03 08:26 | PT.OTN ---
Current Diagnoses Multiple sclerosis (07/02/21) Paraplegia, incomplete (07/02/21) Physical Therapy Treatment Note PT-OP-A Visit Information Start: 05/20/21 17:44 Freq: Status: Active Protocol: Document 07/02/21 08:19 [facility] (Rec: 07/03/21 08:26 [facility] [id number]) Out-Patient Physical Therapy Visit Information Visit Information Visit Type Aquatic Treatment Note Visit Start Time 11:45 Visit Stop Time 12:30 Total Visit Minutes 45 Visit Number 4 Number of INTERIOR PANELER Visits 0 Evaluation Information Evaluation Date 05/21/21 Precautions Precautions esophageal stenosis negative response to overheating HTN related to medications, being weaned off and will start a new medication PT-OP-B Current Condition Start: 05/20/21 17:44 Freq: Status: Active Protocol: Document 05/21/21 14:32 [facility] (Rec: 05/21/21 15:20 [facility] [id number]) Current Condition History of Current Condition Onset Date 2 years Current Complaints MS with LE weakness right greater than left History of Current Condition Patient previously did land- based PT for MS. Now referred for aquatic PT. Main c/o are LE weakness, difficulty ambulating; 120' max with Fww needs w/c behind in case LE's give way, and balance difficulty. Doing HEP fairly consistently but not as much as I should. Lives in downstairs apartment, Aunt lives above and comes down to assist with exercises. Patient able to do most self- care by herself with some set- up assist from Aunt. Also c/ o tightness in LE's especially quads as well as cramping and right foot going out to the side with gait. Can't feel where her feet are due to loss of sensation in LE's. Fell 1x this month from sitting while reaching. Was able to transfer back to chair. Only walks when has help. Prior Treatments and Tests Land-based PT Future Testing and Treatments Planned none at this time. 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 Hobbies Unable to access the stage or green room with w/c. Personal Factors Other Personal Factors That May Effect assisted to appointments by Therapy/Recovery aunt PT-OP-C Subjective Start: 05/20/21 17:44 Freq: Status: Active Protocol: Document 07/02/21 08:19 [facility] (Rec: 07/03/21 08:26 [facility] [id number]) OP-PT Subjective Patient Comments Patient Comments No new c/o. Happy to be back in water for aquatic therapy. Walks up to 75 feet at home with walker and assistance of caregiver with chair behind for when she needs to sit. PT-OP-D Balance Start: 05/20/21 17:44 Freq: Status: Active Protocol: Document 05/21/21 14:32 [facility] (Rec: 05/21/21 17:31 [facility] [id number]) Tinetti Balance Assessment Sitting Balance Sitting Balance Steady, safe Arising from Chair Ability to Arise Able, w/o using arms Standing Balance Immediate Standing Balance Steady with support Standing Balance Unsteady Nudged Response Begins to fall Standing with Eyes Closed Unsteady Turning Step Pattern Turning 360 Degrees Discontinuous steps Stability Turning 360 Degrees Unsteady, grabs/staggers Sitting Down Sitting Down Uses arms or unsteady Gait and Step Initiation of Gait Hesitancy, mult. attempts Right Foot Step Length Does not pass stance ft. Right Foot Step Height Does not clear floor Left Foot Step Length Does not pass stance foot Left Foot Step Height Does not clear floor Step Description Step Symmetry Step length appears equal Step Continuity Steps appear continuous Gait Description Path Description Mild/moderate deviation Trunk Description Marked sway or uses aide Walking Stance Heels apart Scoring and Interpretation Tinetti Composite Score (points) 8 PT-OP-G Mobility & Gait Start: 05/20/21 17:44 Freq: Status: Active Protocol: Document 05/21/21 14:32 [facility] (Rec: 05/21/21 17:31 [facility] [id number]) OP Mobility Evaluation Bed Mobility Rolling indep Supine to and from Sit indep Transfers Sit to Stand indep Bed to Chair Transfers indep Floor Transfers variable, most recentlky after fall was able to transfer back into w/c Wheelchair Management Type of Wheelchair manual Assessment Details Patient didn't bring own chair to PT today OP Gait Assessment Gait Gait Assistance Required: Standby Assistance Distance (Feet) 63 Assistive Devices Assistive Device Front Wheeled Walker Orthotic/Prosthetic Devices or Brace: No Gait Deviations General Gait Pattern Decreased Feet Clearance Factors Limiting Gait Function Factors Limiting Gait Function Abnormal Tonal Influences, Decreased Strength,Poor Balance Stair Climbing Evaluation Comments Stair Climbing Comments patient unable PT-OP-H Neuro Start: 05/20/21 17:44 Freq: Status: Active Protocol: Document 05/21/21 14:32 [facility] (Rec: 05/21/21 17:31 [facility] [id number]) Sensation Evaluation Gross Sensation Gross Sensation Left LE Impaired,Right LE Impaired Sensation Description Paresthesia Comments Summary Comments poor proprioception bilateral LE's; patient reports some better when walks barefoot at home, but has difficulty knowing where her feet are in space. Coordination Evaluation Comments Coordination Comments decreased speed and accuracy of movement bilateral LE's right greater than left PT-OP-M Strength Start: 05/20/21 17:44 Freq: Status: Active Protocol: Document 05/21/21 14:32 [facility] (Rec: 05/21/21 17:31 [facility] [id number]) Hip Strength Hip Manual Muscle Testing Left Flexion (L2) 4 Good Extension (S1) 4- Good- Abduction 4- Good- Adduction 4 Good External Rotation 4- Good- Internal Rotation 4- Good- Right Flexion (L2) 4- Good- Extension (S1) 3+ Fair+ Abduction 3+ Fair+ Adduction 4- Good- External Rotation 3+ Fair+ Internal Rotation 4- Good- Knee Strength Knee Manual Muscle Testing Left Flexion (S2) 4+ Good+ Extension (L3) 4 Good Right Flexion (S2) 4 Good Extension (L3) 4- Good- Ankle/Foot Strength Ankle and Foot Manual Muscle Testing Left Dorsiflexion (L4) 4 Good Plantarflexion (S1) 4+ Good+ Inversion 4 Good Eversion (S1) 4+ Good+ Right Dorsiflexion (L4) 4- Good- Plantarflexion (S1) 4 Good Inversion 3+ Fair+ Eversion (S1) 4- Good- PT-OP-Q Treatments Start: 05/20/21 17:44 Freq: Status: Active Protocol: Document 05/21/21 14:32 [facility] (Rec: 05/21/21 17:31 [facility] [id number]) Self-Care/Home Management Treatment Education Patient Education Fall Risk,Home Exercise Program,Safety Other Education Discussion of aquatic therapy, benefits, logistics and preparation PT-OP-S Aquatic Treatment Start: 05/20/21 17:44 Freq: Status: Active Protocol: Document 07/02/21 08:19 [facility] (Rec: 07/03/21 08:26 [facility] [id number]) Aquatics Treatment Pool Entry/Exit Pool Entry/Exit Method Lift Assistance Standby Assistance,Verbal Cues Comments pt able to transfer indep Water Walking straight leg march Walking Equipment [place] Float Level of Assistance Standby Assistance,Verbal Cues Comments 2# wt march kick Water Level Chest Level Walking Equipment [place] Float Level of Assistance Standby Assistance,Verbal Cues Marching Water Level Chest Level Walking Equipment [place] Float Level of Assistance Standby Assistance,Verbal Cues Comments second lap no float assist Sideways Water Level Chest Level Walking Equipment [place] Float Level of Assistance Standby Assistance,Verbal Cues Comments second lap no float assist Backwards Water Level Chest Level Walking Equipment [place] Float Level of Assistance Standby Assistance,Verbal Cues Comments second lap no float assist forward Water Level Chest Level Walking Equipment [place] float then no equipment Level of Assistance Standby Assistance,Verbal Cues Comments pt also walking with BBs and lg blue float end of treatment Lower Extremity Exercises step-ups Details bottom stair chest to waist level Comments bilateral railings min support heels to toes Body Position Standing Water Level Chest Level Equipment barbells Reps/Duration 10 ea 4 joselin hip Body Position Standing Water Level Chest Level Equipment barbells Reps/Duration 10 ea Lower Extremity Stretches hip flexor, quads, HS, gastroc Details hh on wall Body Position Standing Water Level Chest Level Equipment Small Noodle Reps/Duration 30 x 2 B Comments noodle with HS-assisted Upper Extremity Exercises hor ab/ad Reps/Duration 10x Comments no support from wall HAB, HAD, B pull down Details at wall Body Position Sitting Water Level Neck Level Equipment small barbells Reps/Duration 10 ea Comments emphasis core stability [place] Activities [place] Activities Bicycle,Cross Country,Running Equipment blue [place] float, 2# wts PT-OP-T Assessment and Plan Start: 05/20/21 17:44 Freq: Status: Active Protocol: Document 07/02/21 08:19 [facility] (Rec: 07/03/21 08:26 [facility] [id number]) Physical Therapy Assessment Rehab Potential Rehabilitation Potential Good Impairments Impairments Balance,Gait,Strength Goals Four Impairment LE weakness Impairment 5x sit to stand test 17 sec Correction Goal (LTG) Improve 5x sit to stand test to no greater than 12 sec as measure of improved functional LE strength LTG Duration 08/19/21 Three Impairment no current aquatic exercise Correction Goal (LTG) Patient will be safe and independent with aquatic exercise addressing LE strengthening, gait and balance. LTG Duration 08/19/21 One Impairment lack of independence with her walking in her home Correction Goal (LTG) Patient will be able to ambulate safely for short distance ambulation in her home independently to improve her independence and quality of life. LTG Duration 08/19/21 Two Impairment Decreased gait and balance ability Impairment Tinetti gait and balance assessment 11/16 indicating patient at high risk for falls Activities-specific Balance Confidence (ABC) scale 14% Box Truck Driver Goal (LTG) Improve Tinetti gait and balance score to at least 15/ 28 to decrease patient risk for falls Improve ABC scale to at least 30% as measure of improved confidence in her mobility LTG Duration 08/19/21 Assessment Summary Assessment Able to progress LE ex previously with hand support at wall to doing holding barbells for unstable support; does up to [address] hip before has to put foot down for balance. Added straight- leg march shallow and deep. Physical Therapy Plan Frequency and Duration Frequency of Treatment 1x/Week Duration of Treatment 12 wks Plan of Care Start Date 05/21/21 Plan of Care End Date 08/19/21 Next Visit Focus/Plan Next Note Type Treatment Note Next Visit Plan work on balance recovery, gait with no equipment as tolerated, modified swimming if tolerated.
--- NOTE | 2021-07-16 11:45 | PT.OTN ---
Current Diagnoses Multiple sclerosis (07/16/21) Paraplegia, incomplete (07/16/21) Physical Therapy Treatment Note PT-OP-A Visit Information Start: 05/20/21 17:44 Freq: Status: Active Protocol: Document 07/17/21 09:29 [facility] (Rec: 07/17/21 09:40 [facility] [id number]) Out-Patient Physical Therapy Visit Information Visit Information Visit Type Aquatic Treatment Note Visit Start Time 11:45 Visit Stop Time 12:30 Total Visit Minutes 45 Visit Number 5 Number of BAND AND CUFF CUTTER Visits 0 Evaluation Information Evaluation Date 05/21/21 Precautions Precautions esophageal stenosis negative response to overheating HTN related to medications, being weaned off and will start a new medication PT-OP-B Current Condition Start: 05/20/21 17:44 Freq: Status: Active Protocol: Document 05/21/21 14:32 [facility] (Rec: 05/21/21 15:20 [facility] [id number]) Current Condition History of Current Condition Onset Date 2 years Current Complaints MS with LE weakness right greater than left History of Current Condition Patient previously did land- based PT for MS. Now referred for aquatic PT. Main c/o are LE weakness, difficulty ambulating; 120' max with Fww needs w/c behind in case LE's give way, and balance difficulty. Doing HEP fairly consistently but not as much as I should. Lives in downstairs apartment, Aunt lives above and comes down to assist with exercises. Patient able to do most self- care by herself with some set- up assist from Aunt. Also c/ o tightness in LE's especially quads as well as cramping and right foot going out to the side with gait. Can't feel where her feet are due to loss of sensation in LE's. Fell 1x this month from sitting while reaching. Was able to transfer back to chair. Only walks when has help. Prior Treatments and Tests Land-based PT Future Testing and Treatments Planned none at this time. 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 Hobbies Unable to access the stage or green room with w/c. Personal Factors Other Personal Factors That May Effect assisted to appointments by Therapy/Recovery aunt PT-OP-C Subjective Start: 05/20/21 17:44 Freq: Status: Active Protocol: Document 07/17/21 09:29 [facility] (Rec: 07/17/21 09:40 [facility] [id number]) OP-PT Subjective Patient Comments Patient Comments Patient not able to do any aquatic exercise on her own since last seen. Likes using small ankle weights as it helps me feel where my legs are. Receptive to trying a little swimming today. PT-OP-D Balance Start: 05/20/21 17:44 Freq: Status: Active Protocol: Document 05/21/21 14:32 [facility] (Rec: 05/21/21 17:31 [facility] [id number]) Tinetti Balance Assessment Sitting Balance Sitting Balance Steady, safe Arising from Chair Ability to Arise Able, w/o using arms Standing Balance Immediate Standing Balance Steady with support Standing Balance Unsteady Nudged Response Begins to fall Standing with Eyes Closed Unsteady Turning Step Pattern Turning 360 Degrees Discontinuous steps Stability Turning 360 Degrees Unsteady, grabs/staggers Sitting Down Sitting Down Uses arms or unsteady Gait and Step Initiation of Gait Hesitancy, mult. attempts Right Foot Step Length Does not pass stance ft. Right Foot Step Height Does not clear floor Left Foot Step Length Does not pass stance foot Left Foot Step Height Does not clear floor Step Description Step Symmetry Step length appears equal Step Continuity Steps appear continuous Gait Description Path Description Mild/moderate deviation Trunk Description Marked sway or uses aide Walking Stance Heels apart Scoring and Interpretation Tinetti Composite Score (points) 8 PT-OP-G Mobility & Gait Start: 05/20/21 17:44 Freq: Status: Active Protocol: Document 05/21/21 14:32 [facility] (Rec: 05/21/21 17:31 [facility] [id number]) OP Mobility Evaluation Bed Mobility Rolling indep Supine to and from Sit indep Transfers Sit to Stand indep Bed to Chair Transfers indep Floor Transfers variable, most recentlky after fall was able to transfer back into w/c Wheelchair Management Type of Wheelchair manual Assessment Details Patient didn't bring own chair to PT today OP Gait Assessment Gait Gait Assistance Required: Standby Assistance Distance (Feet) 63 Assistive Devices Assistive Device Front Wheeled Walker Orthotic/Prosthetic Devices or Brace: No Gait Deviations General Gait Pattern Decreased Feet Clearance Factors Limiting Gait Function Factors Limiting Gait Function Abnormal Tonal Influences, Decreased Strength,Poor Balance Stair Climbing Evaluation Comments Stair Climbing Comments patient unable PT-OP-H Neuro Start: 05/20/21 17:44 Freq: Status: Active Protocol: Document 05/21/21 14:32 [facility] (Rec: 05/21/21 17:31 [facility] [id number]) Sensation Evaluation Gross Sensation Gross Sensation Left LE Impaired,Right LE Impaired Sensation Description Paresthesia Comments Summary Comments poor proprioception bilateral LE's; patient reports some better when walks barefoot at home, but has difficulty knowing where her feet are in space. Coordination Evaluation Comments Coordination Comments decreased speed and accuracy of movement bilateral LE's right greater than left PT-OP-M Strength Start: 05/20/21 17:44 Freq: Status: Active Protocol: Document 05/21/21 14:32 [facility] (Rec: 05/21/21 17:31 [facility] [id number]) Hip Strength Hip Manual Muscle Testing Left Flexion (L2) 4 Good Extension (S1) 4- Good- Abduction 4- Good- Adduction 4 Good External Rotation 4- Good- Internal Rotation 4- Good- Right Flexion (L2) 4- Good- Extension (S1) 3+ Fair+ Abduction 3+ Fair+ Adduction 4- Good- External Rotation 3+ Fair+ Internal Rotation 4- Good- Knee Strength Knee Manual Muscle Testing Left Flexion (S2) 4+ Good+ Extension (L3) 4 Good Right Flexion (S2) 4 Good Extension (L3) 4- Good- Ankle/Foot Strength Ankle and Foot Manual Muscle Testing Left Dorsiflexion (L4) 4 Good Plantarflexion (S1) 4+ Good+ Inversion 4 Good Eversion (S1) 4+ Good+ Right Dorsiflexion (L4) 4- Good- Plantarflexion (S1) 4 Good Inversion 3+ Fair+ Eversion (S1) 4- Good- PT-OP-Q Treatments Start: 05/20/21 17:44 Freq: Status: Active Protocol: Document 05/21/21 14:32 [facility] (Rec: 05/21/21 17:31 [facility] [id number]) Self-Care/Home Management Treatment Education Patient Education Fall Risk,Home Exercise Program,Safety Other Education Discussion of aquatic therapy, benefits, logistics and preparation PT-OP-S Aquatic Treatment Start: 05/20/21 17:44 Freq: Status: Active Protocol: Document 07/17/21 09:29 [facility] (Rec: 07/17/21 09:40 [facility] [id number]) Aquatics Treatment Pool Entry/Exit Pool Entry/Exit Method Lift Assistance Standby Assistance,Verbal Cues Comments pt able to transfer indep Water Walking straight leg march Level of Assistance Standby Assistance,Verbal Cues Comments 2# wt march kick Water Level Chest Level Level of Assistance Standby Assistance,Verbal Cues directional changes Water Level Chest Level Level of Assistance Standby Assistance,Verbal Cues Marching Water Level Chest Level Level of Assistance Standby Assistance,Verbal Cues Sideways Water Level Chest Level Level of Assistance Standby Assistance,Verbal Cues Backwards Water Level Chest Level Level of Assistance Standby Assistance,Verbal Cues forward Water Level Chest Level Level of Assistance Standby Assistance,Verbal Cues Lower Extremity Exercises step-ups Details red boxes 8 Body Position Standing Water Level Chest Level Reps/Duration 10x Comments bilateral railings min support , 2# Lower Extremity Stretches hip flexor, quads, HS, gastroc Details hh on wall Body Position Standing Water Level Chest Level Equipment Small Noodle Reps/Duration 30 x 2 B Comments noodle with HS-assisted Upper Extremity Exercises hor ab/ad Reps/Duration 10x Comments no support from wall Spinal Exercises supine to stand Reps/Duration 2x crunch Body Position Standing Equipment beach ball Reps/Duration 10x prone over beach ball Reps/Duration 1 min tiltboard sit Details EO and EC Reps/Duration 3 min [place] Activities [place] Activities Bicycle,Cross Country,Running Equipment [place] float, 2# wts Swim Strokes sidestroke Laps/Duration 15 m x 2 Crawl Laps/Duration 15 m Flutter Laps/Duration 15 ft x2 Comments supine PT-OP-T Assessment and Plan Start: 05/20/21 17:44 Freq: Status: Active Protocol: Document 07/17/21 09:29 [facility] (Rec: 07/17/21 09:40 [facility] [id number]) Physical Therapy Assessment Goals Four Impairment LE weakness Impairment 5x sit to stand test 17 sec Associate Professor Of Literacy Goal (LTG) Improve 5x sit to stand test to no greater than 12 sec as measure of improved functional LE strength LTG Duration 08/19/21 Three Impairment no current aquatic exercise Custodial Goal (LTG) Patient will be safe and independent with aquatic exercise addressing LE strengthening, gait and balance. LTG Duration 08/19/21 One Impairment lack of independence with her walking in her home Custodial Goal (LTG) Patient will be able to ambulate safely for short distance ambulation in her home independently to improve her independence and quality of life. LTG Duration 08/19/21 Two Impairment Decreased gait and balance ability Impairment Tinetti gait and balance assessment 11/16 indicating patient at high risk for falls Activities-specific Balance Confidence (ABC) scale 14% Associate Professor Of Literacy Goal (LTG) Improve Tinetti gait and balance score to at least 15/ 28 to decrease patient risk for falls Improve ABC scale to at least 30% as measure of improved confidence in her mobility LTG Duration 08/19/21 Assessment Summary Assessment Trial swim prone, supine, sidelying with fair tolerance, fatigues quickly. Able to recover to standing independently. Able to do gait activities without flotation assist. Use of 2# weights on ankles improves kinesthetic awareness and stability. Physical Therapy Plan Frequency and Duration Frequency of Treatment 1x/Week Duration of Treatment 12 wks Plan of Care Start Date 05/21/21 Plan of Care End Date 08/19/21 Therapeutic Interventions Therapeutic Interventions Aquatic Therapy Next Visit Focus/Plan Next Note Type Treatment Note Next Visit Plan work on balance recovery, gait with no equipment as tolerated, modified swimming if tolerated.
--- NOTE | 2021-07-17 09:40 | PT.OTN ---
Current Diagnoses Multiple sclerosis (07/16/21) Paraplegia, incomplete (07/16/21) Physical Therapy Treatment Note PT-OP-A Visit Information Start: 05/20/21 17:44 Freq: Status: Active Protocol: Document 07/17/21 09:29 [facility] (Rec: 07/17/21 09:40 [facility] [id number]) Out-Patient Physical Therapy Visit Information Visit Information Visit Type Aquatic Treatment Note Visit Start Time 11:45 Visit Stop Time 12:30 Total Visit Minutes 45 Visit Number 5 Number of ENVIRONMENTAL SERVICES FLOOR TECH Visits 0 Evaluation Information Evaluation Date 05/21/21 Precautions Precautions esophageal stenosis negative response to overheating HTN related to medications, being weaned off and will start a new medication PT-OP-B Current Condition Start: 05/20/21 17:44 Freq: Status: Active Protocol: Document 05/21/21 14:32 [facility] (Rec: 05/21/21 15:20 [facility] [id number]) Current Condition History of Current Condition Onset Date 2 years Current Complaints MS with LE weakness right greater than left History of Current Condition Patient previously did land- based PT for MS. Now referred for aquatic PT. Main c/o are LE weakness, difficulty ambulating; 120' max with Fww needs w/c behind in case LE's give way, and balance difficulty. Doing HEP fairly consistently but not as much as I should. Lives in downstairs apartment, Aunt lives above and comes down to assist with exercises. Patient able to do most self- care by herself with some set- up assist from Aunt. Also c/ o tightness in LE's especially quads as well as cramping and right foot going out to the side with gait. Can't feel where her feet are due to loss of sensation in LE's. Fell 1x this month from sitting while reaching. Was able to transfer back to chair. Only walks when has help. Prior Treatments and Tests Land-based PT Future Testing and Treatments Planned none at this time. 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 Hobbies Unable to access the stage or green room with w/c. Personal Factors Other Personal Factors That May Effect assisted to appointments by Therapy/Recovery aunt PT-OP-C Subjective Start: 05/20/21 17:44 Freq: Status: Active Protocol: Document 07/17/21 09:29 [facility] (Rec: 07/17/21 09:40 [facility] [id number]) OP-PT Subjective Patient Comments Patient Comments Patient not able to do any aquatic exercise on her own since last seen. Likes using small ankle weights as it helps me feel where my legs are. Receptive to trying a little swimming today. PT-OP-D Balance Start: 05/20/21 17:44 Freq: Status: Active Protocol: Document 05/21/21 14:32 [facility] (Rec: 05/21/21 17:31 [facility] [id number]) Tinetti Balance Assessment Sitting Balance Sitting Balance Steady, safe Arising from Chair Ability to Arise Able, w/o using arms Standing Balance Immediate Standing Balance Steady with support Standing Balance Unsteady Nudged Response Begins to fall Standing with Eyes Closed Unsteady Turning Step Pattern Turning 360 Degrees Discontinuous steps Stability Turning 360 Degrees Unsteady, grabs/staggers Sitting Down Sitting Down Uses arms or unsteady Gait and Step Initiation of Gait Hesitancy, mult. attempts Right Foot Step Length Does not pass stance ft. Right Foot Step Height Does not clear floor Left Foot Step Length Does not pass stance foot Left Foot Step Height Does not clear floor Step Description Step Symmetry Step length appears equal Step Continuity Steps appear continuous Gait Description Path Description Mild/moderate deviation Trunk Description Marked sway or uses aide Walking Stance Heels apart Scoring and Interpretation Tinetti Composite Score (points) 8 PT-OP-G Mobility & Gait Start: 05/20/21 17:44 Freq: Status: Active Protocol: Document 05/21/21 14:32 [facility] (Rec: 05/21/21 17:31 [facility] [id number]) OP Mobility Evaluation Bed Mobility Rolling indep Supine to and from Sit indep Transfers Sit to Stand indep Bed to Chair Transfers indep Floor Transfers variable, most recentlky after fall was able to transfer back into w/c Wheelchair Management Type of Wheelchair manual Assessment Details Patient didn't bring own chair to PT today OP Gait Assessment Gait Gait Assistance Required: Standby Assistance Distance (Feet) 63 Assistive Devices Assistive Device Front Wheeled Walker Orthotic/Prosthetic Devices or Brace: No Gait Deviations General Gait Pattern Decreased Feet Clearance Factors Limiting Gait Function Factors Limiting Gait Function Abnormal Tonal Influences, Decreased Strength,Poor Balance Stair Climbing Evaluation Comments Stair Climbing Comments patient unable PT-OP-H Neuro Start: 05/20/21 17:44 Freq: Status: Active Protocol: Document 05/21/21 14:32 [facility] (Rec: 05/21/21 17:31 [facility] [id number]) Sensation Evaluation Gross Sensation Gross Sensation Left LE Impaired,Right LE Impaired Sensation Description Paresthesia Comments Summary Comments poor proprioception bilateral LE's; patient reports some better when walks barefoot at home, but has difficulty knowing where her feet are in space. Coordination Evaluation Comments Coordination Comments decreased speed and accuracy of movement bilateral LE's right greater than left PT-OP-M Strength Start: 05/20/21 17:44 Freq: Status: Active Protocol: Document 05/21/21 14:32 [facility] (Rec: 05/21/21 17:31 [facility] [id number]) Hip Strength Hip Manual Muscle Testing Left Flexion (L2) 4 Good Extension (S1) 4- Good- Abduction 4- Good- Adduction 4 Good External Rotation 4- Good- Internal Rotation 4- Good- Right Flexion (L2) 4- Good- Extension (S1) 3+ Fair+ Abduction 3+ Fair+ Adduction 4- Good- External Rotation 3+ Fair+ Internal Rotation 4- Good- Knee Strength Knee Manual Muscle Testing Left Flexion (S2) 4+ Good+ Extension (L3) 4 Good Right Flexion (S2) 4 Good Extension (L3) 4- Good- Ankle/Foot Strength Ankle and Foot Manual Muscle Testing Left Dorsiflexion (L4) 4 Good Plantarflexion (S1) 4+ Good+ Inversion 4 Good Eversion (S1) 4+ Good+ Right Dorsiflexion (L4) 4- Good- Plantarflexion (S1) 4 Good Inversion 3+ Fair+ Eversion (S1) 4- Good- PT-OP-Q Treatments Start: 05/20/21 17:44 Freq: Status: Active Protocol: Document 05/21/21 14:32 [facility] (Rec: 05/21/21 17:31 [facility] [id number]) Self-Care/Home Management Treatment Education Patient Education Fall Risk,Home Exercise Program,Safety Other Education Discussion of aquatic therapy, benefits, logistics and preparation PT-OP-S Aquatic Treatment Start: 05/20/21 17:44 Freq: Status: Active Protocol: Document 07/17/21 09:29 [facility] (Rec: 07/17/21 09:40 [facility] [id number]) Aquatics Treatment Pool Entry/Exit Pool Entry/Exit Method Lift Assistance Standby Assistance,Verbal Cues Comments pt able to transfer indep Water Walking straight leg march Level of Assistance Standby Assistance,Verbal Cues Comments 2# wt march kick Water Level Chest Level Level of Assistance Standby Assistance,Verbal Cues directional changes Water Level Chest Level Level of Assistance Standby Assistance,Verbal Cues Marching Water Level Chest Level Level of Assistance Standby Assistance,Verbal Cues Sideways Water Level Chest Level Level of Assistance Standby Assistance,Verbal Cues Backwards Water Level Chest Level Level of Assistance Standby Assistance,Verbal Cues forward Water Level Chest Level Level of Assistance Standby Assistance,Verbal Cues Lower Extremity Exercises step-ups Details red boxes 8 Body Position Standing Water Level Chest Level Reps/Duration 10x Comments bilateral railings min support , 2# Lower Extremity Stretches hip flexor, quads, HS, gastroc Details hh on wall Body Position Standing Water Level Chest Level Equipment Small Noodle Reps/Duration 30 x 2 B Comments noodle with HS-assisted Upper Extremity Exercises hor ab/ad Reps/Duration 10x Comments no support from wall Spinal Exercises supine to stand Reps/Duration 2x crunch Body Position Standing Equipment beach ball Reps/Duration 10x prone over beach ball Reps/Duration 1 min tiltboard sit Details EO and EC Reps/Duration 3 min [place] Activities [place] Activities Bicycle,Cross Country,Running Equipment [place] float, 2# wts Swim Strokes sidestroke Laps/Duration 15 m x 2 Crawl Laps/Duration 15 m Flutter Laps/Duration 15 ft x2 Comments supine PT-OP-T Assessment and Plan Start: 05/20/21 17:44 Freq: Status: Active Protocol: Document 07/17/21 09:29 [facility] (Rec: 07/17/21 09:40 [facility] [id number]) Physical Therapy Assessment Goals Four Impairment LE weakness Impairment 5x sit to stand test 17 sec Forest Technician Goal (LTG) Improve 5x sit to stand test to no greater than 12 sec as measure of improved functional LE strength LTG Duration 08/19/21 Three Impairment no current aquatic exercise Residential Goal (LTG) Patient will be safe and independent with aquatic exercise addressing LE strengthening, gait and balance. LTG Duration 08/19/21 One Impairment lack of independence with her walking in her home Residential Goal (LTG) Patient will be able to ambulate safely for short distance ambulation in her home independently to improve her independence and quality of life. LTG Duration 08/19/21 Two Impairment Decreased gait and balance ability Impairment Tinetti gait and balance assessment 11/16 indicating patient at high risk for falls Activities-specific Balance Confidence (ABC) scale 14% Forest Technician Goal (LTG) Improve Tinetti gait and balance score to at least 15/ 28 to decrease patient risk for falls Improve ABC scale to at least 30% as measure of improved confidence in her mobility LTG Duration 08/19/21 Assessment Summary Assessment Trial swim prone, supine, sidelying with fair tolerance, fatigues quickly. Able to recover to standing independently. Able to do gait activities without flotation assist. Use of 2# weights on ankles improves kinesthetic awareness and stability. Physical Therapy Plan Frequency and Duration Frequency of Treatment 1x/Week Duration of Treatment 12 wks Plan of Care Start Date 05/21/21 Plan of Care End Date 08/19/21 Therapeutic Interventions Therapeutic Interventions Aquatic Therapy Next Visit Focus/Plan Next Note Type Treatment Note Next Visit Plan work on balance recovery, gait with no equipment as tolerated, modified swimming if tolerated.
--- NOTE | 2021-07-30 15:27 | PT.OTN ---
Current Diagnoses Multiple sclerosis (07/30/21) Paraplegia, incomplete (07/30/21) Physical Therapy Treatment Note PT-OP-A Visit Information Start: 05/20/21 17:44 Freq: Status: Active Protocol: Document 07/30/21 15:11 NANCY (Rec: 07/30/21 15:26 LJ [id number]) Out-Patient Physical Therapy Visit Information Visit Information Visit Type Aquatic Treatment Note Visit Start Time 11:00 Visit Stop Time 11:45 Total Visit Minutes 45 Visit Number 6 Number of CHANGE ATTENDANT Visits 1 Evaluation Information Evaluation Date 05/21/21 Precautions Precautions esophageal stenosis negative response to overheating HTN related to medications, being weaned off and will start a new medication PT-OP-B Current Condition Start: 05/20/21 17:44 Freq: Status: Active Protocol: Document 05/21/21 14:32 SAK (Rec: 05/21/21 15:20 SAK [id number]) Current Condition History of Current Condition Onset Date 2 years Current Complaints MS with LE weakness right greater than left History of Current Condition Patient previously did land- based PT for MS. Now referred for aquatic PT. Main c/o are LE weakness, difficulty ambulating; 120' max with Fww needs w/c behind in case LE's give way, and balance difficulty. Doing HEP fairly consistently but not as much as I should. Lives in downstairs apartment, Aunt lives above and comes down to assist with exercises. Patient able to do most self- care by herself with some set- up assist from Aunt. Also c/ o tightness in LE's especially quads as well as cramping and right foot going out to the side with gait. Can't feel where her feet are due to loss of sensation in LE's. Fell 1x this month from sitting while reaching. Was able to transfer back to chair. Only walks when has help. Prior Treatments and Tests Land-based PT Future Testing and Treatments Planned none at this time. 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 Hobbies Unable to access the stage or green room with w/c. Personal Factors Other Personal Factors That May Effect assisted to appointments by Therapy/Recovery aunt PT-OP-C Subjective Start: 05/20/21 17:44 Freq: Status: Active Protocol: Document 07/30/21 15:11 NANCY (Rec: 07/30/21 15:26 LJ [id number]) OP-PT Subjective Patient Comments Patient Comments Patient not able to do any aquatic exercise on her own since last seen. Likes using small ankle weights as it helps me feel where my legs are. Receptive to trying a little swimming today. She is trying to arrange getting a ride to/from the pool to work on her own. PT-OP-D Balance Start: 05/20/21 17:44 Freq: Status: Active Protocol: Document 05/21/21 14:32 [facility] (Rec: 05/21/21 17:31 [facility] [id number]) Tinetti Balance Assessment Sitting Balance Sitting Balance Steady, safe Arising from Chair Ability to Arise Able, w/o using arms Standing Balance Immediate Standing Balance Steady with support Standing Balance Unsteady Nudged Response Begins to fall Standing with Eyes Closed Unsteady Turning Step Pattern Turning 360 Degrees Discontinuous steps Stability Turning 360 Degrees Unsteady, grabs/staggers Sitting Down Sitting Down Uses arms or unsteady Gait and Step Initiation of Gait Hesitancy, mult. attempts Right Foot Step Length Does not pass stance ft. Right Foot Step Height Does not clear floor Left Foot Step Length Does not pass stance foot Left Foot Step Height Does not clear floor Step Description Step Symmetry Step length appears equal Step Continuity Steps appear continuous Gait Description Path Description Mild/moderate deviation Trunk Description Marked sway or uses aide Walking Stance Heels apart Scoring and Interpretation Tinetti Composite Score (points) 8 PT-OP-G Mobility & Gait Start: 05/20/21 17:44 Freq: Status: Active Protocol: Document 05/21/21 14:32 SAK (Rec: 05/21/21 17:31 SAK [id number]) OP Mobility Evaluation Bed Mobility Rolling indep Supine to and from Sit indep Transfers Sit to Stand indep Bed to Chair Transfers indep Floor Transfers variable, most recentlky after fall was able to transfer back into w/c Wheelchair Management Type of Wheelchair manual Assessment Details Patient didn't bring own chair to PT today OP Gait Assessment Gait Gait Assistance Required: Standby Assistance Distance (Feet) 63 Assistive Devices Assistive Device Front Wheeled Walker Orthotic/Prosthetic Devices or Brace: No Gait Deviations General Gait Pattern Decreased Feet Clearance Factors Limiting Gait Function Factors Limiting Gait Function Abnormal Tonal Influences, Decreased Strength,Poor Balance Stair Climbing Evaluation Comments Stair Climbing Comments patient unable PT-OP-H Neuro Start: 05/20/21 17:44 Freq: Status: Active Protocol: Document 05/21/21 14:32 [facility] (Rec: 05/21/21 17:31 [facility] [id number]) Sensation Evaluation Gross Sensation Gross Sensation Left LE Impaired,Right LE Impaired Sensation Description Paresthesia Comments Summary Comments poor proprioception bilateral LE's; patient reports some better when walks barefoot at home, but has difficulty knowing where her feet are in space. Coordination Evaluation Comments Coordination Comments decreased speed and accuracy of movement bilateral LE's right greater than left PT-OP-M Strength Start: 05/20/21 17:44 Freq: Status: Active Protocol: Document 05/21/21 14:32 [facility] (Rec: 05/21/21 17:31 [facility] [id number]) Hip Strength Hip Manual Muscle Testing Left Flexion (L2) 4 Good Extension (S1) 4- Good- Abduction 4- Good- Adduction 4 Good External Rotation 4- Good- Internal Rotation 4- Good- Right Flexion (L2) 4- Good- Extension (S1) 3+ Fair+ Abduction 3+ Fair+ Adduction 4- Good- External Rotation 3+ Fair+ Internal Rotation 4- Good- Knee Strength Knee Manual Muscle Testing Left Flexion (S2) 4+ Good+ Extension (L3) 4 Good Right Flexion (S2) 4 Good Extension (L3) 4- Good- Ankle/Foot Strength Ankle and Foot Manual Muscle Testing Left Dorsiflexion (L4) 4 Good Plantarflexion (S1) 4+ Good+ Inversion 4 Good Eversion (S1) 4+ Good+ Right Dorsiflexion (L4) 4- Good- Plantarflexion (S1) 4 Good Inversion 3+ Fair+ Eversion (S1) 4- Good- PT-OP-Q Treatments Start: 05/20/21 17:44 Freq: Status: Active Protocol: Document 05/21/21 14:32 [facility] (Rec: 05/21/21 17:31 [facility] [id number]) Self-Care/Home Management Treatment Education Patient Education Fall Risk,Home Exercise Program,Safety Other Education Discussion of aquatic therapy, benefits, logistics and preparation PT-OP-S Aquatic Treatment Start: 05/20/21 17:44 Freq: Status: Active Protocol: Document 07/30/21 15:11 NANCY (Rec: 07/30/21 15:26 [id number]) Aquatics Treatment Pool Entry/Exit Pool Entry/Exit Method Lift Assistance Standby Assistance,Verbal Cues Comments pt requested assistance for safety upon exiting pool Water Walking Marching Water Level Chest Level Level of Assistance Standby Assistance,Verbal Cues Sideways Water Level Chest Level Level of Assistance Standby Assistance,Verbal Cues Backwards Water Level Chest Level Level of Assistance Standby Assistance,Verbal Cues forward Water Level Chest Level Level of Assistance Standby Assistance,Verbal Cues Lower Extremity Exercises step-ups Details red boxes 8 Body Position Standing Water Level Chest Level Reps/Duration 10x Comments fwd, side; HH on wall 4 joselin hip Body Position Standing Water Level Chest Level Equipment barbells Reps/Duration 10 ea Lower Extremity Stretches hip flexor, quads, HS, gastroc Details hh on wall Body Position Standing Water Level Chest Level Equipment Small Noodle Reps/Duration 30 x 2 B Comments noodle with HS-assisted Upper Extremity Exercises hor ab/ad Reps/Duration 10x Comments no support from wall trunk rotation Details at wall Body Position Sitting Water Level Neck Level Reps/Duration 10 Comments shoulders in scaption HAB, HAD, B pull down Details at wall Body Position Sitting Water Level Neck Level Equipment small barbells Reps/Duration 10 ea Comments emphasis core stability Spinal Exercises supine to stand Reps/Duration 2x [place] Activities [place] Activities Bicycle,Cross Country,Running Other Activities 5x30' each exercise Equipment [place] float, 2# wts Swim Strokes sidestroke Laps/Duration 15 m x 2 Flutter Laps/Duration 15 ft x2 Comments supine PT-OP-T Assessment and Plan Start: 05/20/21 17:44 Freq: Status: Active Protocol: Document 07/30/21 15:11 NANCY (Rec: 07/30/21 15:26 LJ [id number]) Physical Therapy Assessment Rehab Potential Rehabilitation Potential Good Evaluation Complexity Number of Personal Factors/Comorbidities 1-2 Number of Body Systems Impaired 3 Clinical Presentation at Evaluation Evolving Impairments Impairments Balance,Gait,Strength Goals Four Impairment LE weakness Impairment 5x sit to stand test 17 sec Coating Mixer Supervisor Goal (LTG) Improve 5x sit to stand test to no greater than 12 sec as measure of improved functional LE strength LTG Duration 08/19/21 Three Impairment no current aquatic exercise Longterm Goal (LTG) Patient will be safe and independent with aquatic exercise addressing LE strengthening, gait and balance. LTG Duration 08/19/21 One Impairment lack of independence with her walking in her home Longterm Goal (LTG) Patient will be able to ambulate safely for short distance ambulation in her home independently to improve her independence and quality of life. LTG Duration 08/19/21 Two Impairment Decreased gait and balance ability Impairment Tinetti gait and balance assessment 8 indicating patient at high risk for falls Activities-specific Balance Confidence (ABC) scale 14% Coating Mixer Supervisor Goal (LTG) Improve Tinetti gait and balance score to at least 15/ 28 to decrease patient risk for falls Improve ABC scale to at least 30% as measure of improved confidence in her mobility LTG Duration 08/19/21 Assessment Summary Assessment Pt able to independently walk all directions w/o hh on wall. Recovered from supine float w /o assist. Unable to step up onto box with single LE. Pt fatigued at end of session and requested standby assist with WC exiting pool. Physical Therapy Plan Frequency and Duration Frequency of Treatment 1x/Week Duration of Treatment 12 wks Plan of Care Start Date 05/21/21 Plan of Care End Date 08/19/21 Therapeutic Interventions Therapeutic Interventions Aquatic Therapy Next Visit Focus/Plan Next Note Type Treatment Note Next Visit Plan work on balance recovery, gait with no equipment as tolerated, modified swimming if tolerated.
--- NOTE | 2021-08-06 15:22 | PT.OTN ---
Current Diagnoses Multiple sclerosis (08/06/21) Paraplegia, incomplete (08/06/21) Physical Therapy Treatment Note PT-OP-A Visit Information Start: 05/20/21 17:44 Freq: Status: Active Protocol: Document 08/06/21 15:06 NANCY (Rec: 08/06/21 15:22 LJ [id number]) Out-Patient Physical Therapy Visit Information Visit Information Visit Type Aquatic Treatment Note Visit Start Time 12:30 Visit Stop Time 01:15 Total Visit Minutes 45 Visit Number 7 Number of AERIAL INSTALLER Visits 2 Evaluation Information Evaluation Date 05/21/21 Precautions Precautions esophageal stenosis negative response to overheating HTN related to medications, being weaned off and will start a new medication PT-OP-B Current Condition Start: 05/20/21 17:44 Freq: Status: Active Protocol: Document 05/21/21 14:32 SAK (Rec: 05/21/21 15:20 SAK [id number]) Current Condition History of Current Condition Onset Date 2 years Current Complaints MS with LE weakness right greater than left History of Current Condition Patient previously did land- based PT for MS. Now referred for aquatic PT. Main c/o are LE weakness, difficulty ambulating; 120' max with Fww needs w/c behind in case LE's give way, and balance difficulty. Doing HEP fairly consistently but not as much as I should. Lives in downstairs apartment, Aunt lives above and comes down to assist with exercises. Patient able to do most self- care by herself with some set- up assist from Aunt. Also c/ o tightness in LE's especially quads as well as cramping and right foot going out to the side with gait. Can't feel where her feet are due to loss of sensation in LE's. Fell 1x this month from sitting while reaching. Was able to transfer back to chair. Only walks when has help. Prior Treatments and Tests Land-based PT Future Testing and Treatments Planned none at this time. 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 Hobbies Unable to access the stage or green room with w/c. Personal Factors Other Personal Factors That May Effect assisted to appointments by Therapy/Recovery aunt PT-OP-C Subjective Start: 05/20/21 17:44 Freq: Status: Active Protocol: Document 08/06/21 15:06 LJ (Rec: 08/06/21 15:22 LJ [id number]) OP-PT Subjective Patient Comments Patient Comments Pt states she was tired after last session and felt leg fatigue. She is still working on trying to get a ride to the pool so she can exercise more on her own. PT-OP-D Balance Start: 05/20/21 17:44 Freq: Status: Active Protocol: Document 05/21/21 14:32 SAK (Rec: 05/21/21 17:31 SAK [id number]) Tinetti Balance Assessment Sitting Balance Sitting Balance Steady, safe Arising from Chair Ability to Arise Able, w/o using arms Standing Balance Immediate Standing Balance Steady with support Standing Balance Unsteady Nudged Response Begins to fall Standing with Eyes Closed Unsteady Turning Step Pattern Turning 360 Degrees Discontinuous steps Stability Turning 360 Degrees Unsteady, grabs/staggers Sitting Down Sitting Down Uses arms or unsteady Gait and Step Initiation of Gait Hesitancy, mult. attempts Right Foot Step Length Does not pass stance ft. Right Foot Step Height Does not clear floor Left Foot Step Length Does not pass stance foot Left Foot Step Height Does not clear floor Step Description Step Symmetry Step length appears equal Step Continuity Steps appear continuous Gait Description Path Description Mild/moderate deviation Trunk Description Marked sway or uses aide Walking Stance Heels apart Scoring and Interpretation Tinetti Composite Score (points) 8 PT-OP-G Mobility & Gait Start: 05/20/21 17:44 Freq: Status: Active Protocol: Document 05/21/21 14:32 SAK (Rec: 05/21/21 17:31 SAK [id number]) OP Mobility Evaluation Bed Mobility Rolling indep Supine to and from Sit indep Transfers Sit to Stand indep Bed to Chair Transfers indep Floor Transfers variable, most recentlky after fall was able to transfer back into w/c Wheelchair Management Type of Wheelchair manual Assessment Details Patient didn't bring own chair to PT today OP Gait Assessment Gait Gait Assistance Required: Standby Assistance Distance (Feet) 63 Assistive Devices Assistive Device Front Wheeled Walker Orthotic/Prosthetic Devices or Brace: No Gait Deviations General Gait Pattern Decreased Feet Clearance Factors Limiting Gait Function Factors Limiting Gait Function Abnormal Tonal Influences, Decreased Strength,Poor Balance Stair Climbing Evaluation Comments Stair Climbing Comments patient unable PT-OP-H Neuro Start: 05/20/21 17:44 Freq: Status: Active Protocol: Document 05/21/21 14:32 [facility] (Rec: 05/21/21 17:31 [facility] [id number]) Sensation Evaluation Gross Sensation Gross Sensation Left LE Impaired,Right LE Impaired Sensation Description Paresthesia Comments Summary Comments poor proprioception bilateral LE's; patient reports some better when walks barefoot at home, but has difficulty knowing where her feet are in space. Coordination Evaluation Comments Coordination Comments decreased speed and accuracy of movement bilateral LE's right greater than left PT-OP-M Strength Start: 05/20/21 17:44 Freq: Status: Active Protocol: Document 05/21/21 14:32 [facility] (Rec: 05/21/21 17:31 [facility] [id number]) Hip Strength Hip Manual Muscle Testing Left Flexion (L2) 4 Good Extension (S1) 4- Good- Abduction 4- Good- Adduction 4 Good External Rotation 4- Good- Internal Rotation 4- Good- Right Flexion (L2) 4- Good- Extension (S1) 3+ Fair+ Abduction 3+ Fair+ Adduction 4- Good- External Rotation 3+ Fair+ Internal Rotation 4- Good- Knee Strength Knee Manual Muscle Testing Left Flexion (S2) 4+ Good+ Extension (L3) 4 Good Right Flexion (S2) 4 Good Extension (L3) 4- Good- Ankle/Foot Strength Ankle and Foot Manual Muscle Testing Left Dorsiflexion (L4) 4 Good Plantarflexion (S1) 4+ Good+ Inversion 4 Good Eversion (S1) 4+ Good+ Right Dorsiflexion (L4) 4- Good- Plantarflexion (S1) 4 Good Inversion 3+ Fair+ Eversion (S1) 4- Good- PT-OP-Q Treatments Start: 05/20/21 17:44 Freq: Status: Active Protocol: Document 05/21/21 14:32 [facility] (Rec: 05/21/21 17:31 [facility] [id number]) Self-Care/Home Management Treatment Education Patient Education Fall Risk,Home Exercise Program,Safety Other Education Discussion of aquatic therapy, benefits, logistics and preparation PT-OP-S Aquatic Treatment Start: 05/20/21 17:44 Freq: Status: Active Protocol: Document 08/06/21 15:06 NANCY (Rec: 08/06/21 15:22 [id number]) Aquatics Treatment Pool Entry/Exit Pool Entry/Exit Method Lift Assistance Standby Assistance Water Walking Lunge Walk Water Level Waist Level Level of Assistance Standby Assistance Comments several LOB straight leg march Level of Assistance Standby Assistance Comments 2# wt march kick Water Level Chest Level Level of Assistance Standby Assistance directional changes Water Level Chest Level Level of Assistance Standby Assistance,Verbal Cues stop start Water Level Chest Level Level of Assistance Standby Assistance,Verbal Cues Marching Water Level Chest Level Level of Assistance Standby Assistance Sideways Water Level Chest Level Level of Assistance Standby Assistance,Verbal Cues Backwards Water Level Chest Level Level of Assistance Standby Assistance forward Water Level Chest Level Level of Assistance Standby Assistance,Verbal Cues Lower Extremity Exercises step-ups Details red boxes 8 Body Position Standing Water Level Chest Level Reps/Duration 5x Comments fwd, hh on wall occasionally 4 joselin hip Body Position Standing Water Level Chest Level Reps/Duration 8ea Lower Extremity Stretches hip flexor, quads, HS, gastroc Details hh on wall Body Position Standing Water Level Chest Level Equipment Small Noodle Reps/Duration 30 x 2 B Comments noodle with HS-assisted Upper Extremity Exercises trunk rotation Details at wall Body Position Sitting Water Level Neck Level Reps/Duration 10 Comments shoulders in scaption Spinal Exercises supine to stand Reps/Duration 4x crunch Body Position Standing Equipment Large Noodle Reps/Duration 10x [place] Activities [place] Activities Bicycle,Cross Country,Running Other Activities DLS exercises: t hang w/ LE mvmt pendulum w/10 sec hold in sidelying prone extension x8 burpees-slow motion-10 Equipment men belt, #2 wts, M BBs PT-OP-T Assessment and Plan Start: 05/20/21 17:44 Freq: Status: Active Protocol: Document 08/06/21 15:06 NANCY (Rec: 08/06/21 15:22 [id number]) Physical Therapy Assessment Rehab Potential Rehabilitation Potential Good Evaluation Complexity Number of Personal Factors/Comorbidities 1-2 Number of Body Systems Impaired 3 Clinical Presentation at Evaluation Evolving Impairments Impairments Balance,Gait,Strength Goals Four Impairment LE weakness Impairment 5x sit to stand test 17 sec Hogshead Roller Goal (LTG) Improve 5x sit to stand test to no greater than 12 sec as measure of improved functional LE strength LTG Duration 08/19/21 Three Impairment no current aquatic exercise Hogshead Roller Goal (LTG) Patient will be safe and independent with aquatic exercise addressing LE strengthening, gait and balance. LTG Duration 08/19/21 One Impairment lack of independence with her walking in her home Long-Term Goal (LTG) Patient will be able to ambulate safely for short distance ambulation in her home independently to improve her independence and quality of life. LTG Duration 08/19/21 Two Impairment Decreased gait and balance ability Impairment Tinetti gait and balance assessment 8 indicating patient at high risk for falls Activities-specific Balance Confidence (ABC) scale 14% Hogshead Roller Goal (LTG) Improve Tinetti gait and balance score to at least 15/ 28 to decrease patient risk for falls Improve ABC scale to at least 30% as measure of improved confidence in her mobility LTG Duration 08/19/21 Assessment Summary Assessment Pt did well with deep water DLS exercises. Occasionally had LOB episodes in shallow water walking but able to self -correct. She wa not fatigued at the end of session and able to transfer SBA into wheelchair at end of session. Physical Therapy Plan Frequency and Duration Frequency of Treatment 1x/Week Duration of Treatment 12 wks Plan of Care Start Date 05/21/21 Plan of Care End Date 08/19/21 Therapeutic Interventions Therapeutic Interventions Aquatic Therapy Next Visit Focus/Plan Next Note Type Treatment Note Next Visit Plan Progress gait to waist level 50% WB for increased balance challenge. Add tilt board exercises with UE and LE mvnt. Consider AI Chi and or yoga poses for balance challenge.
--- NOTE | 2021-09-03 14:59 | PT.OTN ---
Current Diagnoses Multiple sclerosis (09/03/21) Paraplegia, incomplete (09/03/21) Physical Therapy Treatment Note PT-OP-A Visit Information Start: 05/20/21 17:44 Freq: Status: Active Protocol: Document 09/03/21 14:46 LJ (Rec: 09/03/21 14:59 LJ [id number]) Out-Patient Physical Therapy Visit Information Visit Information Visit Type Aquatic Treatment Note Visit Start Time 11:45 Visit Stop Time 12:30 Total Visit Minutes 45 Visit Number 8 Number of NUCLEAR SPECTROSCOPIST Visits 3 Evaluation Information Evaluation Date 05/21/21 Precautions Precautions esophageal stenosis negative response to overheating HTN related to medications, being weaned off and will start a new medication PT-OP-B Current Condition Start: 05/20/21 17:44 Freq: Status: Active Protocol: Document 05/21/21 14:32 SAK (Rec: 05/21/21 15:20 SAK [id number]) Current Condition History of Current Condition Onset Date 2 years Current Complaints MS with LE weakness right greater than left History of Current Condition Patient previously did land- based PT for MS. Now referred for aquatic PT. Main c/o are LE weakness, difficulty ambulating; 120' max with Fww needs w/c behind in case LE's give way, and balance difficulty. Doing HEP fairly consistently but not as much as I should. Lives in downstairs apartment, Aunt lives above and comes down to assist with exercises. Patient able to do most self- care by herself with some set- up assist from Aunt. Also c/ o tightness in LE's especially quads as well as cramping and right foot going out to the side with gait. Can't feel where her feet are due to loss of sensation in LE's. Fell 1x this month from sitting while reaching. Was able to transfer back to chair. Only walks when has help. Prior Treatments and Tests Land-based PT Future Testing and Treatments Planned none at this time. 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 Hobbies Unable to access the stage or green room with w/c. Personal Factors Other Personal Factors That May Effect assisted to appointments by Therapy/Recovery aunt PT-OP-C Subjective Start: 05/20/21 17:44 Freq: Status: Active Protocol: Document 09/03/21 14:46 LJ (Rec: 09/03/21 14:59 LJ [id number]) OP-PT Subjective Patient Comments Patient Comments Pt arrived early and began walking exercises. She states that she has not been walking at home as much as she should but plans to do more walking outside now that the weather is nicer. PT-OP-D Balance Start: 05/20/21 17:44 Freq: Status: Active Protocol: Document 05/21/21 14:32 SAK (Rec: 05/21/21 17:31 SAK [id number]) Tinetti Balance Assessment Sitting Balance Sitting Balance Steady, safe Arising from Chair Ability to Arise Able, w/o using arms Standing Balance Immediate Standing Balance Steady with support Standing Balance Unsteady Nudged Response Begins to fall Standing with Eyes Closed Unsteady Turning Step Pattern Turning 360 Degrees Discontinuous steps Stability Turning 360 Degrees Unsteady, grabs/staggers Sitting Down Sitting Down Uses arms or unsteady Gait and Step Initiation of Gait Hesitancy, mult. attempts Right Foot Step Length Does not pass stance ft. Right Foot Step Height Does not clear floor Left Foot Step Length Does not pass stance foot Left Foot Step Height Does not clear floor Step Description Step Symmetry Step length appears equal Step Continuity Steps appear continuous Gait Description Path Description Mild/moderate deviation Trunk Description Marked sway or uses aide Walking Stance Heels apart Scoring and Interpretation Tinetti Composite Score (points) 8 PT-OP-G Mobility & Gait Start: 05/20/21 17:44 Freq: Status: Active Protocol: Document 05/21/21 14:32 SAK (Rec: 05/21/21 17:31 SAK [id number]) OP Mobility Evaluation Bed Mobility Rolling indep Supine to and from Sit indep Transfers Sit to Stand indep Bed to Chair Transfers indep Floor Transfers variable, most recentlky after fall was able to transfer back into w/c Wheelchair Management Type of Wheelchair manual Assessment Details Patient didn't bring own chair to PT today OP Gait Assessment Gait Gait Assistance Required: Standby Assistance Distance (Feet) 63 Assistive Devices Assistive Device Front Wheeled Walker Orthotic/Prosthetic Devices or Brace: No Gait Deviations General Gait Pattern Decreased Feet Clearance Factors Limiting Gait Function Factors Limiting Gait Function Abnormal Tonal Influences, Decreased Strength,Poor Balance Stair Climbing Evaluation Comments Stair Climbing Comments patient unable PT-OP-H Neuro Start: 05/20/21 17:44 Freq: Status: Active Protocol: Document 05/21/21 14:32 [facility] (Rec: 05/21/21 17:31 [facility] [id number]) Sensation Evaluation Gross Sensation Gross Sensation Left LE Impaired,Right LE Impaired Sensation Description Paresthesia Comments Summary Comments poor proprioception bilateral LE's; patient reports some better when walks barefoot at home, but has difficulty knowing where her feet are in space. Coordination Evaluation Comments Coordination Comments decreased speed and accuracy of movement bilateral LE's right greater than left PT-OP-M Strength Start: 05/20/21 17:44 Freq: Status: Active Protocol: Document 05/21/21 14:32 [facility] (Rec: 05/21/21 17:31 [facility] [id number]) Hip Strength Hip Manual Muscle Testing Left Flexion (L2) 4 Good Extension (S1) 4- Good- Abduction 4- Good- Adduction 4 Good External Rotation 4- Good- Internal Rotation 4- Good- Right Flexion (L2) 4- Good- Extension (S1) 3+ Fair+ Abduction 3+ Fair+ Adduction 4- Good- External Rotation 3+ Fair+ Internal Rotation 4- Good- Knee Strength Knee Manual Muscle Testing Left Flexion (S2) 4+ Good+ Extension (L3) 4 Good Right Flexion (S2) 4 Good Extension (L3) 4- Good- Ankle/Foot Strength Ankle and Foot Manual Muscle Testing Left Dorsiflexion (L4) 4 Good Plantarflexion (S1) 4+ Good+ Inversion 4 Good Eversion (S1) 4+ Good+ Right Dorsiflexion (L4) 4- Good- Plantarflexion (S1) 4 Good Inversion 3+ Fair+ Eversion (S1) 4- Good- PT-OP-Q Treatments Start: 05/20/21 17:44 Freq: Status: Active Protocol: Document 05/21/21 14:32 [facility] (Rec: 05/21/21 17:31 [facility] [id number]) Self-Care/Home Management Treatment Education Patient Education Fall Risk,Home Exercise Program,Safety Other Education Discussion of aquatic therapy, benefits, logistics and preparation PT-OP-S Aquatic Treatment Start: 05/20/21 17:44 Freq: Status: Active Protocol: Document 09/03/21 14:46 NANCY (Rec: 09/03/21 14:59 [id number]) Aquatics Treatment Pool Entry/Exit Pool Entry/Exit Method Lift Assistance Standby Assistance Water Walking Lunge Walk Water Level Waist Level Level of Assistance Standby Assistance Comments occasional hh on wall straight leg march Level of Assistance Standby Assistance Comments 2# wt march kick Water Level Chest Level Walking Equipment Ankle Floats Level of Assistance Standby Assistance stop start Water Level Chest Level Walking Equipment Ankle Floats Level of Assistance Standby Assistance Marching Water Level Chest Level Walking Equipment Ankle Floats Level of Assistance Standby Assistance Sideways Water Level Chest Level Walking Equipment Ankle Floats Level of Assistance Standby Assistance Backwards Water Level Chest Level Walking Equipment Ankle Floats Level of Assistance Standby Assistance forward Water Level Chest Level Walking Equipment Ankle Floats Level of Assistance Standby Assistance,Verbal Cues Lower Extremity Exercises step-ups Details red boxes 8 Body Position Standing Water Level Chest Level Reps/Duration 7x Comments fwd, hh on wall occasionally 4 joselin hip Body Position Standing Water Level Chest Level Reps/Duration 8ea Lower Extremity Stretches hip flexor, quads, HS, gastroc Details hh on wall Body Position Standing Water Level Chest Level Equipment Small Noodle Reps/Duration 30 x 2 B Comments noodle with HS-assisted Upper Extremity Exercises hor ab/ad Reps/Duration 10x Comments no support from wall trunk rotation Details at wall Body Position Sitting Water Level Neck Level Reps/Duration 10 Comments shoulders in scaption HAB, HAD, B pull down Details at wall Body Position Sitting Water Level Neck Level Equipment small barbells Reps/Duration 10 ea Comments emphasis core stability Spinal Exercises supine to stand Body Position Supine Reps/Duration 4x Comments Min assist Balance SLS Details light hh on wall Water Level Chest Level Reps/Duration 10 sec attempted w/o hh B Mckittrick Activities [place] Activities Bicycle,Cross Country,Running Other Activities DLS exercises: t hang w/ LE mvmt pendulum w/10 sec hold in sidelying prone extension x6 Equipment men belt, #2 wts, M BBs PT-OP-T Assessment and Plan Start: 05/20/21 17:44 Freq: Status: Active Protocol: Document 09/03/21 14:46 NANCY (Rec: 09/03/21 14:59 [id number]) Physical Therapy Assessment Rehab Potential Rehabilitation Potential Good Evaluation Complexity Number of Personal Factors/Comorbidities 1-2 Number of Body Systems Impaired 3 Clinical Presentation at Evaluation Evolving Impairments Impairments Balance,Gait,Strength Goals Four Impairment LE weakness Impairment 5x sit to stand test 17 sec Correction Goal (LTG) Improve 5x sit to stand test to no greater than 12 sec as measure of improved functional LE strength LTG Duration 08/19/21 Three Impairment no current aquatic exercise Cash Posting Representative Goal (LTG) Patient will be safe and independent with aquatic exercise addressing LE strengthening, gait and balance. LTG Duration 08/19/21 One Impairment lack of independence with her walking in her home Cash Posting Representative Goal (LTG) Patient will be able to ambulate safely for short distance ambulation in her home independently to improve her independence and quality of life. LTG Duration 08/19/21 Two Impairment Decreased gait and balance ability Impairment Tinetti gait and balance assessment 8/28 indicating patient at high risk for falls Activities-specific Balance Confidence (ABC) scale 14% Cash Posting Representative Goal (LTG) Improve Tinetti gait and balance score to at least 15/ 28 to decrease patient risk for falls Improve ABC scale to at least 30% as measure of improved confidence in her mobility LTG Duration 08/19/21 Assessment Summary Assessment Pt fatigued at end of session but able to self-transfer into wheel chair. Advised pt that if she arrives early, keep walking to a slow pace to save leg strength for exercises. She had several LOB in walking activities with floats but able to self-correct. Cues for vertical alignment in deep water exercises and cue for decrease hip flexion while bicycling backwards. Physical Therapy Plan Frequency and Duration Frequency of Treatment 1x/Week Duration of Treatment 12 wks Plan of Care Start Date 05/21/21 Plan of Care End Date 08/19/21 Therapeutic Interventions Therapeutic Interventions Aquatic Therapy Next Visit Focus/Plan Next Note Type Treatment Note Next Visit Plan Progress gait to waist level 50% WB for increased balance challenge. Add tilt board execises with UE and LE mvnt. AI Chi with weight shifting portions and yoga poses for balance challenge.
--- NOTE | 2021-09-17 15:29 | PT.OTN ---
Current Diagnoses Multiple sclerosis (09/03/21) Paraplegia, incomplete (09/03/21) Physical Therapy Treatment Note PT-OP-A Visit Information Start: 05/20/21 17:44 Freq: Status: Active Protocol: Document 09/17/21 15:17 NANCY (Rec: 09/17/21 15:29 LJ [id number]) Out-Patient Physical Therapy Visit Information Visit Information Visit Type Aquatic Treatment Note Visit Start Time 12:30 Visit Stop Time 01:15 Total Visit Minutes 45 Visit Number 9 Number of APPLICATION SYSTEMS ARCHITECT Visits 4 Evaluation Information Evaluation Date 05/21/21 Precautions Precautions esophageal stenosis negative response to overheating HTN related to medications, being weaned off and will start a new medication PT-OP-B Current Condition Start: 05/20/21 17:44 Freq: Status: Active Protocol: Document 05/21/21 14:32 SAK (Rec: 05/21/21 15:20 SAK [id number]) Current Condition History of Current Condition Onset Date 2 years Current Complaints MS with LE weakness right greater than left History of Current Condition Patient previously did land- based PT for MS. Now referred for aquatic PT. Main c/o are LE weakness, difficulty ambulating; 120' max with Fww needs w/c behind in case LE's give way, and balance difficulty. Doing HEP fairly consistently but not as much as I should. Lives in downstairs apartment, Aunt lives above and comes down to assist with exercises. Patient able to do most self- care by herself with some set- up assist from Aunt. Also c/ o tightness in LE's especially quads as well as cramping and right foot going out to the side with gait. Can't feel where her feet are due to loss of sensation in LE's. Fell 1x this month from sitting while reaching. Was able to transfer back to chair. Only walks when has help. Prior Treatments and Tests Land-based PT Future Testing and Treatments Planned none at this time. 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 Hobbies Unable to access the stage or green room with w/c. Personal Factors Other Personal Factors That May Effect assisted to appointments by Therapy/Recovery aunt PT-OP-C Subjective Start: 05/20/21 17:44 Freq: Status: Active Protocol: Document 09/17/21 15:17 LJ (Rec: 09/17/21 15:29 LJ [id number]) OP-PT Subjective Patient Comments Patient Comments Pt arrived early and began walking exercises. She states that she has been having pain in R medial border of scapula which makes it much more difficult to walk much of a distance for exercise due to pain. PT-OP-D Balance Start: 05/20/21 17:44 Freq: Status: Active Protocol: Document 05/21/21 14:32 SAK (Rec: 05/21/21 17:31 SAK [id number]) Tinetti Balance Assessment Sitting Balance Sitting Balance Steady, safe Arising from Chair Ability to Arise Able, w/o using arms Standing Balance Immediate Standing Balance Steady with support Standing Balance Unsteady Nudged Response Begins to fall Standing with Eyes Closed Unsteady Turning Step Pattern Turning 360 Degrees Discontinuous steps Stability Turning 360 Degrees Unsteady, grabs/staggers Sitting Down Sitting Down Uses arms or unsteady Gait and Step Initiation of Gait Hesitancy, mult. attempts Right Foot Step Length Does not pass stance ft. Right Foot Step Height Does not clear floor Left Foot Step Length Does not pass stance foot Left Foot Step Height Does not clear floor Step Description Step Symmetry Step length appears equal Step Continuity Steps appear continuous Gait Description Path Description Mild/moderate deviation Trunk Description Marked sway or uses aide Walking Stance Heels apart Scoring and Interpretation Tinetti Composite Score (points) 8 PT-OP-G Mobility & Gait Start: 05/20/21 17:44 Freq: Status: Active Protocol: Document 05/21/21 14:32 SAK (Rec: 05/21/21 17:31 SAK [id number]) OP Mobility Evaluation Bed Mobility Rolling indep Supine to and from Sit indep Transfers Sit to Stand indep Bed to Chair Transfers indep Floor Transfers variable, most recentlky after fall was able to transfer back into w/c Wheelchair Management Type of Wheelchair manual Assessment Details Patient didn't bring own chair to PT today OP Gait Assessment Gait Gait Assistance Required: Standby Assistance Distance (Feet) 63 Assistive Devices Assistive Device Front Wheeled Walker Orthotic/Prosthetic Devices or Brace: No Gait Deviations General Gait Pattern Decreased Feet Clearance Factors Limiting Gait Function Factors Limiting Gait Function Abnormal Tonal Influences, Decreased Strength,Poor Balance Stair Climbing Evaluation Comments Stair Climbing Comments patient unable PT-OP-H Neuro Start: 05/20/21 17:44 Freq: Status: Active Protocol: Document 05/21/21 14:32 [facility] (Rec: 05/21/21 17:31 [facility] [id number]) Sensation Evaluation Gross Sensation Gross Sensation Left LE Impaired,Right LE Impaired Sensation Description Paresthesia Comments Summary Comments poor proprioception bilateral LE's; patient reports some better when walks barefoot at home, but has difficulty knowing where her feet are in space. Coordination Evaluation Comments Coordination Comments decreased speed and accuracy of movement bilateral LE's right greater than left PT-OP-M Strength Start: 05/20/21 17:44 Freq: Status: Active Protocol: Document 05/21/21 14:32 [facility] (Rec: 05/21/21 17:31 [facility] [id number]) Hip Strength Hip Manual Muscle Testing Left Flexion (L2) 4 Good Extension (S1) 4- Good- Abduction 4- Good- Adduction 4 Good External Rotation 4- Good- Internal Rotation 4- Good- Right Flexion (L2) 4- Good- Extension (S1) 3+ Fair+ Abduction 3+ Fair+ Adduction 4- Good- External Rotation 3+ Fair+ Internal Rotation 4- Good- Knee Strength Knee Manual Muscle Testing Left Flexion (S2) 4+ Good+ Extension (L3) 4 Good Right Flexion (S2) 4 Good Extension (L3) 4- Good- Ankle/Foot Strength Ankle and Foot Manual Muscle Testing Left Dorsiflexion (L4) 4 Good Plantarflexion (S1) 4+ Good+ Inversion 4 Good Eversion (S1) 4+ Good+ Right Dorsiflexion (L4) 4- Good- Plantarflexion (S1) 4 Good Inversion 3+ Fair+ Eversion (S1) 4- Good- PT-OP-Q Treatments Start: 05/20/21 17:44 Freq: Status: Active Protocol: Document 05/21/21 14:32 [facility] (Rec: 05/21/21 17:31 [facility] [id number]) Self-Care/Home Management Treatment Education Patient Education Fall Risk,Home Exercise Program,Safety Other Education Discussion of aquatic therapy, benefits, logistics and preparation PT-OP-S Aquatic Treatment Start: 05/20/21 17:44 Freq: Status: Active Protocol: Document 06/29/22 15:17 NANCY (Rec: 09/17/21 15:29 LJ [id number]) Aquatics Treatment Pool Entry/Exit Pool Entry/Exit Method Lift Assistance Standby Assistance Water Walking Lunge Walk Water Level Waist Level Level of Assistance Standby Assistance Comments occasional hh on wall march kick Water Level Chest Level Walking Equipment Ankle Floats Level of Assistance Standby Assistance directional changes Water Level Chest Level Level of Assistance Standby Assistance,Verbal Cues stop start Water Level Chest Level Walking Equipment Ankle Floats Level of Assistance Standby Assistance Marching Water Level Chest Level Walking Equipment Ankle Floats Level of Assistance Standby Assistance Sideways Water Level Chest Level Walking Equipment Ankle Floats Level of Assistance Standby Assistance forward Water Level Chest Level Walking Equipment Ankle Floats Level of Assistance Standby Assistance,Verbal Cues Lower Extremity Exercises step-ups Details red boxes 8 Body Position Standing Water Level Chest Level Reps/Duration 7x Comments fwd, side, step over; occasional hh on wall 4 joselin hip Body Position Standing Water Level Chest Level Reps/Duration 8ea Lower Extremity Stretches hip flexor, quads, HS, gastroc Details hh on wall Body Position Standing Water Level Chest Level Equipment Small Noodle Reps/Duration 30 x 2 B Comments noodle with HS-assisted Upper Extremity Stretches corner stretch Details at wall Body Position Standing Reps/Duration 45 sec Tok Activities Tok Activities Bicycle,Cross Country,Running Other Activities DLS exercises: t hang w/ LE mvmt pendulum w/10 sec hold in sidelying prone extension x6 Equipment men belt, #2 wts, M BBs Manual Techniques Bad Ragaz 12 min for UE stretch and trap , rhomboid massage Aquatic Massage 2 min AquaStretch for shoulder girdle release of rhomboids PT-OP-T Assessment and Plan Start: 05/20/21 17:44 Freq: Status: Active Protocol: Document 09/17/21 15:17 NANCY (Rec: 09/17/21 15:29 LJ [id number]) Physical Therapy Assessment Rehab Potential Rehabilitation Potential Good Evaluation Complexity Number of Personal Factors/Comorbidities 1-2 Number of Body Systems Impaired 3 Clinical Presentation at Evaluation Evolving Impairments Impairments Balance,Gait,Strength Goals Four Impairment LE weakness Impairment 5x sit to stand test 17 sec Fdc Goal (LTG) Improve 5x sit to stand test to no greater than 12 sec as measure of improved functional LE strength LTG Duration 08/19/21 Three Impairment no current aquatic exercise Fdc Goal (LTG) Patient will be safe and independent with aquatic exercise addressing LE strengthening, gait and balance. LTG Duration 08/19/21 One Impairment lack of independence with her walking in her home Fdc Goal (LTG) Patient will be able to ambulate safely for short distance ambulation in her home independently to improve her independence and quality of life. LTG Duration 08/19/21 Two Impairment Decreased gait and balance ability Impairment Tinetti gait and balance assessment 8 indicating patient at high risk for falls Activities-specific Balance Confidence (ABC) scale 14% Telephone Interviewer Goal (LTG) Improve Tinetti gait and balance score to at least 15/ 28 to decrease patient risk for falls Improve ABC scale to at least 30% as measure of improved confidence in her mobility LTG Duration 08/19/21 Assessment Summary Assessment Pt fatigued at end of exercises but recovered during passive Bad Ragaz-AquaStretch session. Able to transfer into independently. Balance activities more difficult this session with more hh on wall and LOBs. Trialed weight belt for improved proprioception but unable to fit the ankle weights together properly to remain in place around her waist. Physical Therapy Plan Frequency and Duration Frequency of Treatment 1x/Week Duration of Treatment 12 wks Plan of Care Start Date 05/21/21 Plan of Care End Date 08/19/21 Therapeutic Interventions Therapeutic Interventions Aquatic Therapy Next Visit Focus/Plan Next Note Type Treatment Note Next Visit Plan Progress gait to waist level 50% WB for increased balance challenge. Add tilt board execises with UE and LE mvnt. AI Chi with weight shifting portions and yoga poses for balance challenge.
--- NOTE | 2021-10-01 15:23 | PT.OTN ---
Current Diagnoses Multiple sclerosis (10/01/21) Paraplegia, incomplete (10/01/21) Physical Therapy Treatment Note PT-OP-A Visit Information Start: 05/20/21 17:44 Freq: Status: Active Protocol: Document 10/01/21 15:05 NANCY (Rec: 10/01/21 15:23 LJ [id number]) Out-Patient Physical Therapy Visit Information Visit Information Visit Type Aquatic Treatment Note Visit Start Time 12:30 Visit Stop Time 13:15 Total Visit Minutes 45 Visit Number 10 Number of QUALITY SYSTEMS MANAGER Visits 5 Evaluation Information Evaluation Date 05/21/21 Precautions Precautions esophageal stenosis negative response to overheating HTN related to medications, being weaned off and will start a new medication PT-OP-B Current Condition Start: 05/20/21 17:44 Freq: Status: Active Protocol: Document 05/21/21 14:32 SAK (Rec: 05/21/21 15:20 SAK [id number]) Current Condition History of Current Condition Onset Date 2 years Current Complaints MS with LE weakness right greater than left History of Current Condition Patient previously did land- based PT for MS. Now referred for aquatic PT. Main c/o are LE weakness, difficulty ambulating; 120' max with Fww needs w/c behind in case LE's give way, and balance difficulty. Doing HEP fairly consistently but not as much as I should. Lives in downstairs apartment, Aunt lives above and comes down to assist with exercises. Patient able to do most self- care by herself with some set- up assist from Aunt. Also c/ o tightness in LE's especially quads as well as cramping and right foot going out to the side with gait. Can't feel where her feet are due to loss of sensation in LE's. Fell 1x this month from sitting while reaching. Was able to transfer back to chair. Only walks when has help. Prior Treatments and Tests Land-based PT Future Testing and Treatments Planned none at this time. 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 Hobbies Unable to access the stage or green room with w/c. Personal Factors Other Personal Factors That May Effect assisted to appointments by Therapy/Recovery aunt PT-OP-C Subjective Start: 05/20/21 17:44 Freq: Status: Active Protocol: Document 10/01/21 15:05 LJ (Rec: 10/01/21 15:23 LJ [id number]) OP-PT Subjective Patient Comments Patient Comments Pt arrived early and began walking activities. No pain in shoulder but she states she has beet sitting a lot and feels she needs to walk more. States she is scheduled for esophageal stretching surgery next Wednesday. PT-OP-D Balance Start: 05/20/21 17:44 Freq: Status: Active Protocol: Document 05/21/21 14:32 SAK (Rec: 05/21/21 17:31 SAK [id number]) Tinetti Balance Assessment Sitting Balance Sitting Balance Steady, safe Arising from Chair Ability to Arise Able, w/o using arms Standing Balance Immediate Standing Balance Steady with support Standing Balance Unsteady Nudged Response Begins to fall Standing with Eyes Closed Unsteady Turning Step Pattern Turning 360 Degrees Discontinuous steps Stability Turning 360 Degrees Unsteady, grabs/staggers Sitting Down Sitting Down Uses arms or unsteady Gait and Step Initiation of Gait Hesitancy, mult. attempts Right Foot Step Length Does not pass stance ft. Right Foot Step Height Does not clear floor Left Foot Step Length Does not pass stance foot Left Foot Step Height Does not clear floor Step Description Step Symmetry Step length appears equal Step Continuity Steps appear continuous Gait Description Path Description Mild/moderate deviation Trunk Description Marked sway or uses aide Walking Stance Heels apart Scoring and Interpretation Tinetti Composite Score (points) 8 PT-OP-G Mobility & Gait Start: 05/20/21 17:44 Freq: Status: Active Protocol: Document 05/21/21 14:32 SAK (Rec: 05/21/21 17:31 SAK [id number]) OP Mobility Evaluation Bed Mobility Rolling indep Supine to and from Sit indep Transfers Sit to Stand indep Bed to Chair Transfers indep Floor Transfers variable, most recentlky after fall was able to transfer back into w/c Wheelchair Management Type of Wheelchair manual Assessment Details Patient didn't bring own chair to PT today OP Gait Assessment Gait Gait Assistance Required: Standby Assistance Distance (Feet) 63 Assistive Devices Assistive Device Front Wheeled Walker Orthotic/Prosthetic Devices or Brace: No Gait Deviations General Gait Pattern Decreased Feet Clearance Factors Limiting Gait Function Factors Limiting Gait Function Abnormal Tonal Influences, Decreased Strength,Poor Balance Stair Climbing Evaluation Comments Stair Climbing Comments patient unable PT-OP-H Neuro Start: 05/20/21 17:44 Freq: Status: Active Protocol: Document 05/21/21 14:32 [facility] (Rec: 05/21/21 17:31 [facility] [id number]) Sensation Evaluation Gross Sensation Gross Sensation Left LE Impaired,Right LE Impaired Sensation Description Paresthesia Comments Summary Comments poor proprioception bilateral LE's; patient reports some better when walks barefoot at home, but has difficulty knowing where her feet are in space. Coordination Evaluation Comments Coordination Comments decreased speed and accuracy of movement bilateral LE's right greater than left PT-OP-M Strength Start: 05/20/21 17:44 Freq: Status: Active Protocol: Document 05/21/21 14:32 [facility] (Rec: 05/21/21 17:31 [facility] [id number]) Hip Strength Hip Manual Muscle Testing Left Flexion (L2) 4 Good Extension (S1) 4- Good- Abduction 4- Good- Adduction 4 Good External Rotation 4- Good- Internal Rotation 4- Good- Right Flexion (L2) 4- Good- Extension (S1) 3+ Fair+ Abduction 3+ Fair+ Adduction 4- Good- External Rotation 3+ Fair+ Internal Rotation 4- Good- Knee Strength Knee Manual Muscle Testing Left Flexion (S2) 4+ Good+ Extension (L3) 4 Good Right Flexion (S2) 4 Good Extension (L3) 4- Good- Ankle/Foot Strength Ankle and Foot Manual Muscle Testing Left Dorsiflexion (L4) 4 Good Plantarflexion (S1) 4+ Good+ Inversion 4 Good Eversion (S1) 4+ Good+ Right Dorsiflexion (L4) 4- Good- Plantarflexion (S1) 4 Good Inversion 3+ Fair+ Eversion (S1) 4- Good- PT-OP-Q Treatments Start: 05/20/21 17:44 Freq: Status: Active Protocol: Document 05/21/21 14:32 [facility] (Rec: 05/21/21 17:31 [facility] [id number]) Self-Care/Home Management Treatment Education Patient Education Fall Risk,Home Exercise Program,Safety Other Education Discussion of aquatic therapy, benefits, logistics and preparation PT-OP-S Aquatic Treatment Start: 05/20/21 17:44 Freq: Status: Active Protocol: Document 10/01/21 15:05 NANCY (Rec: 10/01/21 15:23 [id number]) Aquatics Treatment Pool Entry/Exit Pool Entry/Exit Method Lift Assistance Standby Assistance Water Walking Lunge Walk Water Level Waist Level Level of Assistance Standby Assistance Comments occasional hh on wall straight leg march Level of Assistance Standby Assistance Comments 2# wt march kick Water Level Chest Level Walking Equipment Ankle Weight- 2.5# Level of Assistance Standby Assistance directional changes Water Level Chest Level Level of Assistance Standby Assistance,Verbal Cues Marching Water Level Chest Level Walking Equipment Ankle Weight- 2.5# Level of Assistance Standby Assistance Sideways Water Level Chest Level Walking Equipment Ankle Weight- 2.5# Level of Assistance Standby Assistance Backwards Water Level Chest Level Walking Equipment Ankle Weight- 2.5# Level of Assistance Standby Assistance forward Water Level Chest Level Walking Equipment Ankle Weight- 2.5# Level of Assistance Standby Assistance,Verbal Cues Lower Extremity Exercises step-ups Details red boxes 8 Body Position Standing Water Level Chest Level Reps/Duration 8x Comments fwd, side, step over; occasional hh on wall heels to toes Body Position Standing Water Level Chest Level Reps/Duration 10 ea Comments hh on wall Lower Extremity Stretches hip flexor, quads, HS, gastroc Details hh on wall Body Position Standing Water Level Chest Level Equipment Small Noodle Reps/Duration 30 x 2 B Comments noodle with HS-assisted Upper Extremity Exercises hip thrust Body Position Standing Water Level Waist Level Equipment stretch cords rows Body Position Standing Water Level Chest Level Equipment stretch cords Reps/Duration 10 b trunk rotation Details at wall Body Position Standing Water Level Waist Level Equipment stretch cords Reps/Duration 10 b [place] Activities [place] Activities Bicycle,Cross Country,Running Other Activities DLS exercises: t hang w/ LE mvmt pendulum w/10 sec hold in sidelying prone extension x6 deep kicks-prone Equipment men belt, #2 wts, M BBs PT-OP-T Assessment and Plan Start: 05/20/21 17:44 Freq: Status: Active Protocol: Document 10/01/21 15:05 NANCY (Rec: 10/01/21 15:23 [id number]) Physical Therapy Assessment Rehab Potential Rehabilitation Potential Good Evaluation Complexity Number of Personal Factors/Comorbidities 1-2 Number of Body Systems Impaired 3 Clinical Presentation at Evaluation Evolving Impairments Impairments Balance,Gait,Strength Goals Four Impairment LE weakness Impairment 5x sit to stand test 17 sec Cutter Out Goal (LTG) Improve 5x sit to stand test to no greater than 12 sec as measure of improved functional LE strength LTG Duration 08/19/21 Three Impairment no current aquatic exercise Care Home Goal (LTG) Patient will be safe and independent with aquatic exercise addressing LE strengthening, gait and balance. LTG Duration 08/19/21 One Impairment lack of independence with her walking in her home Cutter Out Goal (LTG) Patient will be able to ambulate safely for short distance ambulation in her home independently to improve her independence and quality of life. LTG Duration 08/19/21 Two Impairment Decreased gait and balance ability Impairment Tinetti gait and balance assessment 8/ indicating patient at high risk for falls Activities-specific Balance Confidence (ABC) scale 14% Cutter Out Goal (LTG) Improve Tinetti gait and balance score to at least 15/ 28 to decrease patient risk for falls Improve ABC scale to at least 30% as measure of improved confidence in her mobility LTG Duration 08/19/21 Assessment Summary Assessment Pt did not report being fatigued at end of session. She demonstrated improved balance by being away from wall for most of the gait activities and few LOBs. She feels her balance on land has improved also. At beginning of session her LEs would occasionally give out however, as session continued, she didn't experience it. She is still unable to step up onto box with single LE unless in chest deep water. Physical Therapy Plan Frequency and Duration Frequency of Treatment 1x/Week Duration of Treatment 12 wks Plan of Care Start Date 05/21/21 Plan of Care End Date 08/19/21 Therapeutic Interventions Therapeutic Interventions Aquatic Therapy Next Visit Focus/Plan Next Note Type Treatment Note Next Visit Plan Continue with strengthening and balance activities. Add tilt board or noodle sitting for balance challenge. Progress deep water core exercises with bbs.
--- NOTE | 2021-10-15 12:30 | PT.OTRE ---
Current Diagnoses Multiple sclerosis (10/15/21) Paraplegia, incomplete (10/15/21) Visit Care Team Role Provider Type Rehan Zacarias MD Family Provider Physician Primary Care Provider Specialty: Internal Medicine Address: [address] [place] [address] [address], [place], [address] Email: [email or web address] Rufino Umaña MD Attending Provider Non-Staff Referring Provider Specialty: Psychiatry Address: [address] [place] [address], [address], [address] Email: Physical Therapy Re-Evaluation PT-OP-A Visit Information Start: 05/20/21 17:44 Freq: Status: Active Protocol: Document 10/15/21 15:14 LJ (Rec: 10/15/21 15:25 LJ [id number]) Out-Patient Physical Therapy Visit Information Visit Information Visit Type Aquatic Treatment Note Visit Start Time 12:30 Visit Stop Time 13:15 Total Visit Minutes 45 Visit Number 11 Number of LEATHER CURRIER Visits 1 Evaluation Information Evaluation Date 05/21/21 Precautions Precautions esophageal stenosis negative response to overheating HTN related to medications, being weaned off and will start a new medication PT-OP-B Current Condition Start: 05/20/21 17:44 Freq: Status: Active Protocol: Document 05/21/21 14:32 SAK (Rec: 05/21/21 15:20 SAK [id number]) Current Condition History of Current Condition Onset Date 2 years Current Complaints MS with LE weakness right greater than left History of Current Condition Patient previously did land- based PT for MS. Now referred for aquatic PT. Main c/o are LE weakness, difficulty ambulating; 120' max with Fww needs w/c behind in case LE's give way, and balance difficulty. Doing HEP fairly consistently but not as much as I should. Lives in downstairs apartment, Aunt lives above and comes down to assist with exercises. Patient able to do most self- care by herself with some set- up assist from Aunt. Also c/ o tightness in LE's especially quads as well as cramping and right foot going out to the side with gait. Can't feel where her feet are due to loss of sensation in LE's. Fell 1x this month from sitting while reaching. Was able to transfer back to chair. Only walks when has help. Prior Treatments and Tests Land-based PT Future Testing and Treatments Planned none at this time. 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 Hobbies Unable to access the stage or green room with w/c. Personal Factors Other Personal Factors That May Effect assisted to appointments by Therapy/Recovery aunt PT-OP-C Subjective Start: 05/20/21 17:44 Freq: Status: Active Protocol: Document 10/15/21 15:14 NANCY (Rec: 10/15/21 15:25 LJ [id number]) OP-PT Subjective Patient Comments Patient Comments Pt arrived early and began water walking.She is recovering from esophageal stretching surgery last week and her doctor told her to take it easy for one more week . PT-OP-D Balance Start: 05/20/21 17:44 Freq: Status: Active Protocol: Document 05/21/21 14:32 SAK (Rec: 05/21/21 17:31 SAK [id number]) Tinetti Balance Assessment Sitting Balance Sitting Balance Steady, safe Arising from Chair Ability to Arise Able, w/o using arms Standing Balance Immediate Standing Balance Steady with support Standing Balance Unsteady Nudged Response Begins to fall Standing with Eyes Closed Unsteady Turning Step Pattern Turning 360 Degrees Discontinuous steps Stability Turning 360 Degrees Unsteady, grabs/staggers Sitting Down Sitting Down Uses arms or unsteady Gait and Step Initiation of Gait Hesitancy, mult. attempts Right Foot Step Length Does not pass stance ft. Right Foot Step Height Does not clear floor Left Foot Step Length Does not pass stance foot Left Foot Step Height Does not clear floor Step Description Step Symmetry Step length appears equal Step Continuity Steps appear continuous Gait Description Path Description Mild/moderate deviation Trunk Description Marked sway or uses aide Walking Stance Heels apart Scoring and Interpretation Tinetti Composite Score (points) 8 PT-OP-G Mobility & Gait Start: 05/20/21 17:44 Freq: Status: Active Protocol: Document 05/21/21 14:32 SAK (Rec: 05/21/21 17:31 [facility] [id number]) OP Mobility Evaluation Bed Mobility Rolling indep Supine to and from Sit indep Transfers Sit to Stand indep Bed to Chair Transfers indep Floor Transfers variable, most recentlky after fall was able to transfer back into w/c Wheelchair Management Type of Wheelchair manual Assessment Details Patient didn't bring own chair to PT today OP Gait Assessment Gait Gait Assistance Required: Standby Assistance Distance (Feet) 63 Assistive Devices Assistive Device Front Wheeled Walker Orthotic/Prosthetic Devices or Brace: No Gait Deviations General Gait Pattern Decreased Feet Clearance Factors Limiting Gait Function Factors Limiting Gait Function Abnormal Tonal Influences, Decreased Strength,Poor Balance Stair Climbing Evaluation Comments Stair Climbing Comments patient unable PT-OP-H Neuro Start: 05/20/21 17:44 Freq: Status: Active Protocol: Document 05/21/21 14:32 [facility] (Rec: 05/21/21 17:31 [facility] [id number]) Sensation Evaluation Gross Sensation Gross Sensation Left LE Impaired,Right LE Impaired Sensation Description Paresthesia Comments Summary Comments poor proprioception bilateral LE's; patient reports some better when walks barefoot at home, but has difficulty knowing where her feet are in space. Coordination Evaluation Comments Coordination Comments decreased speed and accuracy of movement bilateral LE's right greater than left PT-OP-M Strength Start: 05/20/21 17:44 Freq: Status: Active Protocol: Document 05/21/21 14:32 [facility] (Rec: 05/21/21 17:31 [facility] [id number]) Hip Strength Hip Manual Muscle Testing Left Flexion (L2) 4 Good Extension (S1) 4- Good- Abduction 4- Good- Adduction 4 Good External Rotation 4- Good- Internal Rotation 4- Good- Right Flexion (L2) 4- Good- Extension (S1) 3+ Fair+ Abduction 3+ Fair+ Adduction 4- Good- External Rotation 3+ Fair+ Internal Rotation 4- Good- Knee Strength Knee Manual Muscle Testing Left Flexion (S2) 4+ Good+ Extension (L3) 4 Good Right Flexion (S2) 4 Good Extension (L3) 4- Good- Ankle/Foot Strength Ankle and Foot Manual Muscle Testing Left Dorsiflexion (L4) 4 Good Plantarflexion (S1) 4+ Good+ Inversion 4 Good Eversion (S1) 4+ Good+ Right Dorsiflexion (L4) 4- Good- Plantarflexion (S1) 4 Good Inversion 3+ Fair+ Eversion (S1) 4- Good- PT-OP-Q Treatments Start: 05/20/21 17:44 Freq: Status: Active Protocol: Document 05/21/21 14:32 SAK (Rec: 05/21/21 17:31 SAK [id number]) Self-Care/Home Management Treatment Education Patient Education Fall Risk,Home Exercise Program,Safety Other Education Discussion of aquatic therapy, benefits, logistics and preparation PT-OP-T Assessment and Plan Start: 05/20/21 17:44 Freq: Status: Active Protocol: Document 10/15/21 15:14 LJ (Rec: 10/15/21 15:25 LJ [id number]) Physical Therapy Assessment Rehab Potential Rehabilitation Potential Good Evaluation Complexity Number of Personal Factors/Comorbidities 1-2 Number of Body Systems Impaired 3 Clinical Presentation at Evaluation Evolving Impairments Impairments Balance,Gait,Strength Goals Four Impairment LE weakness Impairment 5x sit to stand test 17 sec Penitentiary Goal (LTG) Improve 5x sit to stand test to no greater than 12 sec as measure of improved functional LE strength LTG Duration 08/19/21 Three Impairment no current aquatic exercise Penitentiary Goal (LTG) Patient will be safe and independent with aquatic exercise addressing LE strengthening, gait and balance. LTG Duration 08/19/21 One Impairment lack of independence with her walking in her home [employer] Goal (LTG) Patient will be able to ambulate safely for short distance ambulation in her home independently to improve her independence and quality of life. LTG Duration 08/19/21 Two Impairment Decreased gait and balance ability Impairment Tinetti gait and balance assessment 8/28 indicating patient at high risk for falls Activities-specific Balance Confidence (ABC) scale 14% [employer] Goal (LTG) Improve Tinetti gait and balance score to at least 15/ 28 to decrease patient risk for falls Improve ABC scale to at least 30% as measure of improved confidence in her mobility LTG Duration 08/19/21 Assessment Summary Assessment No reported fatigue at end of session. Gait activities demonstrated good core activation and improved balance. Pt tolerated and executed deep water exercises well and shows improvement in coordination and stability. She would benefit from continued AT for overall strengthening and balance to improve safety with mobility. Physical Therapy Plan Frequency and Duration Frequency of Treatment 1x/Week Duration of Treatment 12 wks Plan of Care Start Date 05/21/21 Plan of Care End Date 08/19/21 Therapeutic Interventions Therapeutic Interventions Aquatic Therapy Next Visit Focus/Plan Next Note Type Treatment Note Next Visit Plan Continue with strengthening and balance activities. Add tilt board or noodle sitting for balance challenge. Progress deep water core exercises with bbs.
--- NOTE | 2021-10-15 15:25 | PT.OTN ---
Current Diagnoses Multiple sclerosis (10/15/21) Paraplegia, incomplete (10/15/21) Physical Therapy Treatment Note PT-OP-A Visit Information Start: 05/20/21 17:44 Freq: Status: Active Protocol: Document 10/15/21 15:14 NANCY (Rec: 10/15/21 15:25 LJ [id number]) Out-Patient Physical Therapy Visit Information Visit Information Visit Type Aquatic Treatment Note Visit Start Time 12:30 Visit Stop Time 13:15 Total Visit Minutes 45 Visit Number 11 Number of VE TEACHER Visits 1 Evaluation Information Evaluation Date 05/21/21 Precautions Precautions esophageal stenosis negative response to overheating HTN related to medications, being weaned off and will start a new medication PT-OP-B Current Condition Start: 05/20/21 17:44 Freq: Status: Active Protocol: Document 05/21/21 14:32 SAK (Rec: 05/21/21 15:20 SAK [id number]) Current Condition History of Current Condition Onset Date 2 years Current Complaints MS with LE weakness right greater than left History of Current Condition Patient previously did land- based PT for MS. Now referred for aquatic PT. Main c/o are LE weakness, difficulty ambulating; 120' max with Fww needs w/c behind in case LE's give way, and balance difficulty. Doing HEP fairly consistently but not as much as I should. Lives in downstairs apartment, Aunt lives above and comes down to assist with exercises. Patient able to do most self- care by herself with some set- up assist from Aunt. Also c/ o tightness in LE's especially quads as well as cramping and right foot going out to the side with gait. Can't feel where her feet are due to loss of sensation in LE's. Fell 1x this month from sitting while reaching. Was able to transfer back to chair. Only walks when has help. Prior Treatments and Tests Land-based PT Future Testing and Treatments Planned none at this time. 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 Hobbies Unable to access the stage or green room with w/c. Personal Factors Other Personal Factors That May Effect assisted to appointments by Therapy/Recovery aunt PT-OP-C Subjective Start: 05/20/21 17:44 Freq: Status: Active Protocol: Document 10/15/21 15:14 LJ (Rec: 10/15/21 15:25 LJ [id number]) OP-PT Subjective Patient Comments Patient Comments Pt arrived early and began water walking.She is recovering from esophageal stretching surgery last week and her doctor told her to take it easy for one more week . PT-OP-D Balance Start: 05/20/21 17:44 Freq: Status: Active Protocol: Document 05/21/21 14:32 SAK (Rec: 05/21/21 17:31 SAK [id number]) Tinetti Balance Assessment Sitting Balance Sitting Balance Steady, safe Arising from Chair Ability to Arise Able, w/o using arms Standing Balance Immediate Standing Balance Steady with support Standing Balance Unsteady Nudged Response Begins to fall Standing with Eyes Closed Unsteady Turning Step Pattern Turning 360 Degrees Discontinuous steps Stability Turning 360 Degrees Unsteady, grabs/staggers Sitting Down Sitting Down Uses arms or unsteady Gait and Step Initiation of Gait Hesitancy, mult. attempts Right Foot Step Length Does not pass stance ft. Right Foot Step Height Does not clear floor Left Foot Step Length Does not pass stance foot Left Foot Step Height Does not clear floor Step Description Step Symmetry Step length appears equal Step Continuity Steps appear continuous Gait Description Path Description Mild/moderate deviation Trunk Description Marked sway or uses aide Walking Stance Heels apart Scoring and Interpretation Tinetti Composite Score (points) 8 PT-OP-G Mobility & Gait Start: 05/20/21 17:44 Freq: Status: Active Protocol: Document 05/21/21 14:32 [facility] (Rec: 05/21/21 17:31 SAK [id number]) OP Mobility Evaluation Bed Mobility Rolling indep Supine to and from Sit indep Transfers Sit to Stand indep Bed to Chair Transfers indep Floor Transfers variable, most recentlky after fall was able to transfer back into w/c Wheelchair Management Type of Wheelchair manual Assessment Details Patient didn't bring own chair to PT today OP Gait Assessment Gait Gait Assistance Required: Standby Assistance Distance (Feet) 63 Assistive Devices Assistive Device Front Wheeled Walker Orthotic/Prosthetic Devices or Brace: No Gait Deviations General Gait Pattern Decreased Feet Clearance Factors Limiting Gait Function Factors Limiting Gait Function Abnormal Tonal Influences, Decreased Strength,Poor Balance Stair Climbing Evaluation Comments Stair Climbing Comments patient unable PT-OP-H Neuro Start: 05/20/21 17:44 Freq: Status: Active Protocol: Document 05/21/21 14:32 SAK (Rec: 05/21/21 17:31 [facility] [id number]) Sensation Evaluation Gross Sensation Gross Sensation Left LE Impaired,Right LE Impaired Sensation Description Paresthesia Comments Summary Comments poor proprioception bilateral LE's; patient reports some better when walks barefoot at home, but has difficulty knowing where her feet are in space. Coordination Evaluation Comments Coordination Comments decreased speed and accuracy of movement bilateral LE's right greater than left PT-OP-M Strength Start: 05/20/21 17:44 Freq: Status: Active Protocol: Document 05/21/21 14:32 [facility] (Rec: 05/21/21 17:31 [facility] [id number]) Hip Strength Hip Manual Muscle Testing Left Flexion (L2) 4 Good Extension (S1) 4- Good- Abduction 4- Good- Adduction 4 Good External Rotation 4- Good- Internal Rotation 4- Good- Right Flexion (L2) 4- Good- Extension (S1) 3+ Fair+ Abduction 3+ Fair+ Adduction 4- Good- External Rotation 3+ Fair+ Internal Rotation 4- Good- Knee Strength Knee Manual Muscle Testing Left Flexion (S2) 4+ Good+ Extension (L3) 4 Good Right Flexion (S2) 4 Good Extension (L3) 4- Good- Ankle/Foot Strength Ankle and Foot Manual Muscle Testing Left Dorsiflexion (L4) 4 Good Plantarflexion (S1) 4+ Good+ Inversion 4 Good Eversion (S1) 4+ Good+ Right Dorsiflexion (L4) 4- Good- Plantarflexion (S1) 4 Good Inversion 3+ Fair+ Eversion (S1) 4- Good- PT-OP-Q Treatments Start: 05/20/21 17:44 Freq: Status: Active Protocol: Document 05/21/21 14:32 [facility] (Rec: 05/21/21 17:31 [facility] [id number]) Self-Care/Home Management Treatment Education Patient Education Fall Risk,Home Exercise Program,Safety Other Education Discussion of aquatic therapy, benefits, logistics and preparation PT-OP-S Aquatic Treatment Start: 05/20/21 17:44 Freq: Status: Active Protocol: Document 10/15/21 15:14 NANCY (Rec: 10/15/21 15:25 [id number]) Aquatics Treatment Pool Entry/Exit Pool Entry/Exit Method Lift Assistance Standby Assistance Water Walking Marching Water Level Chest Level Walking Equipment Ankle Weight- 2.5# Level of Assistance Standby Assistance Sideways Water Level Chest Level Walking Equipment Ankle Weight- 2.5# Level of Assistance Standby Assistance Backwards Water Level Chest Level Walking Equipment Ankle Weight- 2.5# Level of Assistance Standby Assistance forward Water Level Chest Level Walking Equipment Ankle Weight- 2.5# Level of Assistance Standby Assistance Lower Extremity Exercises 4 joselin hip Body Position Standing Water Level Chest Level Reps/Duration 8ea Lower Extremity Stretches hip flexor, quads, HS, gastroc Details hh on wall Body Position Standing Water Level Chest Level Equipment Small Noodle Reps/Duration 30 x 2 B Comments noodle with HS-assisted Upper Extremity Exercises hor ab/ad Reps/Duration 10x Comments no support from wall trunk rotation Details at wall Body Position Standing Water Level Waist Level Reps/Duration 10 b HAB, HAD, B pull down Details at wall Body Position Sitting Water Level Neck Level Equipment small barbells Reps/Duration 10 ea Comments emphasis core stability Upper Extremity Stretches corner stretch Details at wall Body Position Standing Reps/Duration 45 sec Spinal Exercises supine to stand Body Position Supine Reps/Duration 4x Comments CGA crunch Body Position Standing Equipment M BBs Reps/Duration 10x [place] Activities Other Activities DLS exercises: t hang w/ LE mvmt pendulum knee tuck-vertical crunch-supine prone extension x6 deep kicks-prone corner HABD HADD gymnast rotation B x 5 Equipment men belt, #2 wts, M BBs Comments gentler exercises focusing on core Swim Strokes Flutter Laps/Duration 15 ft x2 Comments prone w/belt and BBs PT-OP-T Assessment and Plan Start: 05/20/21 17:44 Freq: Status: Active Protocol: Document 10/15/21 15:14 NANCY (Rec: 10/15/21 15:25 [id number]) Physical Therapy Assessment Rehab Potential Rehabilitation Potential Good Evaluation Complexity Number of Personal Factors/Comorbidities 1-2 Number of Body Systems Impaired 3 Clinical Presentation at Evaluation Evolving Impairments Impairments Balance,Gait,Strength Goals Four Impairment LE weakness Impairment 5x sit to stand test 17 sec Slusher Operator Goal (LTG) Improve 5x sit to stand test to no greater than 12 sec as measure of improved functional LE strength LTG Duration 08/19/21 Three Impairment no current aquatic exercise Slusher Operator Goal (LTG) Patient will be safe and independent with aquatic exercise addressing LE strengthening, gait and balance. LTG Duration 08/19/21 One Impairment lack of independence with her walking in her home Slusher Operator Goal (LTG) Patient will be able to ambulate safely for short distance ambulation in her home independently to improve her independence and quality of life. LTG Duration 08/19/21 Two Impairment Decreased gait and balance ability Impairment Tinetti gait and balance assessment 8 indicating patient at high risk for falls Activities-specific Balance Confidence (ABC) scale 14% Slusher Operator Goal (LTG) Improve Tinetti gait and balance score to at least 15/ 28 to decrease patient risk for falls Improve ABC scale to at least 30% as measure of improved confidence in her mobility LTG Duration 08/19/21 Assessment Summary Assessment No reported fatigue at end of session. Gait activities demonstrated good core activation and improved balance. Pt tolerated and executed deep water exercises well and shows improvement in coordination and stability. She would benefit from continued AT for overall strengthening and balance to improve safety with mobility. Physical Therapy Plan Frequency and Duration Frequency of Treatment 1x/Week Duration of Treatment 12 wks Plan of Care Start Date 05/21/21 Plan of Care End Date 08/19/21 Therapeutic Interventions Therapeutic Interventions Aquatic Therapy Next Visit Focus/Plan Next Note Type Treatment Note Next Visit Plan Continue with strengthening and balance activities. Add tilt board or noodle sitting for balance challenge. Progress deep water core exercises with bbs.
--- NOTE | 2021-10-15 16:00 | PT.OPPOC ---
Physical, Occupational & Speech Therapy At [facility] Current Diagnoses Multiple sclerosis (10/15/21) Paraplegia, incomplete (10/15/21) Visit Care Team Role Provider Type Rehan Zacarias MD Family Provider Physician Primary Care Provider Specialty: Internal Medicine Address: [address] [place] [address], [address], [address] Email: [email or web address] Rufino Umaña MD Attending Provider Non-Staff Referring Provider Specialty: Psychiatry Address: [address] [place] [address], [address], [place], [address] Email: Plan Of Care PT-OP-T Assessment and Plan Start: 05/20/21 17:44 Freq: Status: Active Protocol: Document 10/15/21 16:00 SAK (Rec: 10/16/21 10:24 SAK [id number]) Physical Therapy Assessment Impairments Impairments Balance,Gait,Strength Goals Four Impairment LE weakness Impairment 5x sit to stand test 17 sec 10/15/21: improved to 15 sec with slight dec use of hands Retirement Goal (LTG) Improve 5x sit to stand test to no greater than 12 sec as measure of improved functional LE strength LTG Duration 12/02/21 Three Impairment no current aquatic exercise Financial Planning Adviser Goal (LTG) Patient will be safe and independent with a progressive aquatic exercise program addressing LE strengthening, gait and balance. 10/15/21: Continue to progress aquatic exercise program, she is now able to walk with SBA ( vs mod assist when first started aquatic PT) in chest level water, increased assist with decreased depth of water. Decreased LOB incidence noted. LTG Duration 12/02/21 One Impairment lack of independence with her walking in her home Retirement Goal (LTG) Patient will be able to ambulate safely for short distance ambulation in her home independently to improve her independence and quality of life. 10/15/21: Able to ambulate very short distances for transfers , improved LTG Duration 12/02/21 Two Impairment Decreased gait and balance ability Impairment Tinetti gait and balance assessment 11/16 indicating patient at high risk for falls 10/15/21: unable to retest as at pool today, patient reporting improved balance in sitting when reaching for objects, uncertain standing as using walker and very short distances Activities-specific Balance Confidence (ABC) scale 14% Retirement Goal (LTG) Improve Tinetti gait and balance score to at least 15/ 28 to decrease patient risk for falls Improve ABC scale to at least 30% as measure of improved confidence in her mobility LTG Duration 12/02/21 Progress Towards Goals Progress Towards Goals Progressing Toward Goals Assessment Summary Assessment Patient is making progress toward goals, only able to attend PT 1x/wk. Feel she would benefit from further aquatic PT to help her fully achieve the above goals. POC discussed with patient and she agrees. Physical Therapy Plan Frequency and Duration Frequency of Treatment 1x/Week Duration of Treatment 12 wks Plan of Care Start Date 09/01/21 Plan of Care End Date 12/02/21 Therapeutic Interventions Therapeutic Interventions Aquatic Therapy Next Visit Focus/Plan Next Note Type Treatment Note Next Visit Plan Continue aquatic PT with emphasis on improving strength , gait, balance, and mobility safety. Plan of Care Dates Plan of Care Start Date 09/01/21 Plan of Care End Date 12/02/21 Electronically Signed by: Bertha Redding, PT 10/16/21 0555 If you are in agreement with this Plan of Care, please return a signed and dated copy. I have reviewed this Plan of Care and certify that the skilled therapy services above are required to meet the patient?s needs. Physician Signature Date Printed Name and Credentials Clinical Instructor Signature Printed Name and Credentials
--- NOTE | 2021-12-08 17:20 | PT.OTN ---
Current Diagnoses Multiple sclerosis (12/08/21) Paraplegia, incomplete (12/08/21) Physical Therapy Treatment Note PT-OP-A Visit Information Start: 05/20/21 17:44 Freq: Status: Active Protocol: Document 12/08/21 17:10 [facility] (Rec: 12/08/21 17:20 [facility] [id number]) Out-Patient Physical Therapy Visit Information Visit Information Visit Type Aquatic Treatment Note Visit Start Time 11:00 Visit Stop Time 11:45 Total Visit Minutes 45 Visit Number 12 Number of SOURCER Visits 0 Evaluation Information Evaluation Date 05/21/21 Precautions Precautions esophageal stenosis negative response to overheating HTN related to medications, being weaned off and will start a new medication PT-OP-B Current Condition Start: 05/20/21 17:44 Freq: Status: Active Protocol: Document 05/21/21 14:32 [facility] (Rec: 05/21/21 15:20 [facility] [id number]) Current Condition History of Current Condition Onset Date 2 years Current Complaints MS with LE weakness right greater than left History of Current Condition Patient previously did land- based PT for MS. Now referred for aquatic PT. Main c/o are LE weakness, difficulty ambulating; 120' max with Fww needs w/c behind in case LE's give way, and balance difficulty. Doing HEP fairly consistently but not as much as I should. Lives in downstairs apartment, Aunt lives above and comes down to assist with exercises. Patient able to do most self- care by herself with some set- up assist from Aunt. Also c/ o tightness in LE's especially quads as well as cramping and right foot going out to the side with gait. Can't feel where her feet are due to loss of sensation in LE's. Fell 1x this month from sitting while reaching. Was able to transfer back to chair. Only walks when has help. Prior Treatments and Tests Land-based PT Future Testing and Treatments Planned none at this time. 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 Hobbies Unable to access the stage or green room with w/c. Personal Factors Other Personal Factors That May Effect assisted to appointments by Therapy/Recovery aunt PT-OP-C Subjective Start: 05/20/21 17:44 Freq: Status: Active Protocol: Document 12/08/21 17:10 [facility] (Rec: 12/08/21 17:20 [facility] [id number]) OP-PT Subjective Patient Comments Patient Comments Patient not seen since October 15 due to pool closure and PT vacation and illness. Returns today reporting she feels some decline in her function and is glad to be returning to aquatic PT. Hoping to be able to stand and walk further ; states she can stand for 2 min with walker (mostly using UE's), and walk about 60 ft. PT-OP-D Balance Start: 05/20/21 17:44 Freq: Status: Active Protocol: Document 05/21/21 14:32 [facility] (Rec: 05/21/21 17:31 [facility] [id number]) Tinetti Balance Assessment Sitting Balance Sitting Balance Steady, safe Arising from Chair Ability to Arise Able, w/o using arms Standing Balance Immediate Standing Balance Steady with support Standing Balance Unsteady Nudged Response Begins to fall Standing with Eyes Closed Unsteady Turning Step Pattern Turning 360 Degrees Discontinuous steps Stability Turning 360 Degrees Unsteady, grabs/staggers Sitting Down Sitting Down Uses arms or unsteady Gait and Step Initiation of Gait Hesitancy, mult. attempts Right Foot Step Length Does not pass stance ft. Right Foot Step Height Does not clear floor Left Foot Step Length Does not pass stance foot Left Foot Step Height Does not clear floor Step Description Step Symmetry Step length appears equal Step Continuity Steps appear continuous Gait Description Path Description Mild/moderate deviation Trunk Description Marked sway or uses aide Walking Stance Heels apart Scoring and Interpretation Tinetti Composite Score (points) 8 PT-OP-G Mobility & Gait Start: 05/20/21 17:44 Freq: Status: Active Protocol: Document 05/21/21 14:32 [facility] (Rec: 05/21/21 17:31 [facility] [id number]) OP Mobility Evaluation Bed Mobility Rolling indep Supine to and from Sit indep Transfers Sit to Stand indep Bed to Chair Transfers indep Floor Transfers variable, most recentlky after fall was able to transfer back into w/c Wheelchair Management Type of Wheelchair manual Assessment Details Patient didn't bring own chair to PT today OP Gait Assessment Gait Gait Assistance Required: Standby Assistance Distance (Feet) 63 Assistive Devices Assistive Device Front Wheeled Walker Orthotic/Prosthetic Devices or Brace: No Gait Deviations General Gait Pattern Decreased Feet Clearance Factors Limiting Gait Function Factors Limiting Gait Function Abnormal Tonal Influences, Decreased Strength,Poor Balance Stair Climbing Evaluation Comments Stair Climbing Comments patient unable PT-OP-H Neuro Start: 05/20/21 17:44 Freq: Status: Active Protocol: Document 05/21/21 14:32 [facility] (Rec: 05/21/21 17:31 [facility] [id number]) Sensation Evaluation Gross Sensation Gross Sensation Left LE Impaired,Right LE Impaired Sensation Description Paresthesia Comments Summary Comments poor proprioception bilateral LE's; patient reports some better when walks barefoot at home, but has difficulty knowing where her feet are in space. Coordination Evaluation Comments Coordination Comments decreased speed and accuracy of movement bilateral LE's right greater than left PT-OP-M Strength Start: 05/20/21 17:44 Freq: Status: Active Protocol: Document 05/21/21 14:32 [facility] (Rec: 05/21/21 17:31 [facility] [id number]) Hip Strength Hip Manual Muscle Testing Left Flexion (L2) 4 Good Extension (S1) 4- Good- Abduction 4- Good- Adduction 4 Good External Rotation 4- Good- Internal Rotation 4- Good- Right Flexion (L2) 4- Good- Extension (S1) 3+ Fair+ Abduction 3+ Fair+ Adduction 4- Good- External Rotation 3+ Fair+ Internal Rotation 4- Good- Knee Strength Knee Manual Muscle Testing Left Flexion (S2) 4+ Good+ Extension (L3) 4 Good Right Flexion (S2) 4 Good Extension (L3) 4- Good- Ankle/Foot Strength Ankle and Foot Manual Muscle Testing Left Dorsiflexion (L4) 4 Good Plantarflexion (S1) 4+ Good+ Inversion 4 Good Eversion (S1) 4+ Good+ Right Dorsiflexion (L4) 4- Good- Plantarflexion (S1) 4 Good Inversion 3+ Fair+ Eversion (S1) 4- Good- PT-OP-Q Treatments Start: 05/20/21 17:44 Freq: Status: Active Protocol: Document 05/21/21 14:32 [facility] (Rec: 05/21/21 17:31 [facility] [id number]) Self-Care/Home Management Treatment Education Patient Education Fall Risk,Home Exercise Program,Safety Other Education Discussion of aquatic therapy, benefits, logistics and preparation PT-OP-S Aquatic Treatment Start: 05/20/21 17:44 Freq: Status: Active Protocol: Document 12/08/21 17:10 [facility] (Rec: 12/08/21 17:20 [facility] [id number]) Aquatics Treatment Pool Entry/Exit Pool Entry/Exit Method Lift Assistance Standby Assistance Water Walking straight leg march Level of Assistance Standby Assistance may kick Water Level Chest Level Level of Assistance Standby Assistance Marching Water Level Chest Level Level of Assistance Standby Assistance Sideways Water Level Chest Level Level of Assistance Standby Assistance Backwards Water Level Chest Level Level of Assistance Standby Assistance forward Water Level Chest Level Level of Assistance Standby Assistance Lower Extremity Exercises 4 joselin hip Body Position Standing Water Level Chest Level Reps/Duration 10x ea Upper Extremity Exercises shoulder flex/ext Reps/Duration 10x Comments no wall support hor ab/ad Details chelle and unil Reps/Duration 10x Comments no support from wall Spinal Exercises tiltboard sit Details EO and EC, knee touch Reps/Duration 3 min Balance SLS Details no UE support Water Level Chest Level Comments max 10 right, 7 left chest level water [place] Activities [place] Activities Bicycle,Bicycle Backwards, Cross [place],Running PT-OP-T Assessment and Plan Start: 05/20/21 17:44 Freq: Status: Active Protocol: Document 12/08/21 17:10 [facility] (Rec: 12/08/21 17:20 [facility] [id number]) Physical Therapy Assessment Goals Four Impairment LE weakness Impairment 5x sit to stand test 17 sec 10/15/21: improved to 15 sec with slight dec use of hands 12/08/21: unable to assess today due to session in pool, reporting more difficulty with increased need to use hands [facility] Goal (LTG) Improve 5x sit to stand test to no greater than 12 sec as measure of improved functional LE strength LTG Duration 03/09/22 Three Impairment no current aquatic exercise [facility] Goal (LTG) Patient will be safe and independent with a progressive aquatic exercise program addressing LE strengthening, gait and balance. 10/15/21: Continue to progress aquatic exercise program, she is now able to walk with SBA ( vs mod assist when first started aquatic PT) in chest level water, increased assist with decreased depth of water. Decreased LOB incidence noted. 12/08/21: improving aquatic exercise tolerance, prior to break in aquatic PT had been tolerating gentle progression of activities well LTG Duration 03/09/22 One Impairment lack of independence with her walking in her home [facility] Goal (LTG) Patient will be able to ambulate safely for short distance ambulation in her home independently to improve her independence and quality of life. 10/15/21: Able to ambulate very short distances for transfers , improved 12/08/21: Has improved to 60 ft . pt goal of gait 110 ft with FWW without legs giving way. LTG Duration 03/09/22 Two Impairment Decreased gait and balance ability Impairment Tinetti gait and balance assessment 11/16 indicating patient at high risk for falls 10/15/21: unable to retest as at pool today, patient reporting improved balance in sitting when reaching for objects, uncertain standing as using walker and very short distances Activities-specific Balance Confidence (ABC) scale 14% 12/08/21: again unable to assess as at pool but now able to stand on 1 foot in shallow water without UE support max 10 sec right and 7 sec left ( previously unable without UE support) [facility] Goal (LTG) Improve Tinetti gait and balance score to at least 15/ 28 to decrease patient risk for falls Improve ABC scale to at least 30% as measure of improved confidence in her mobility LTG Duration 03/09/22 Progress Towards Goals Progress Towards Goals Progressing Toward Goals Assessment Summary Assessment Patient continues to make progress toward goals, though recent long break from aquatic PT due to pool closure and PT vacation and illness caused some recent decline in her function. Recommend further skilled aquatic PT to help patient fully achieve her PT goals and transition to an independent community-based aquatic exercise program. Physical Therapy Plan Frequency and Duration Frequency of Treatment 1x/Week Duration of Treatment 12 wks Plan of Care Start Date 12/08/21 Plan of Care End Date 03/09/22 Therapeutic Interventions Therapeutic Interventions Aquatic Therapy,Balance Training,Home Exercise Program ,Neuromuscular Re-education, Patient/Caregiver Education, Self-Care/Home Management, Therapeutic Activities, Therapeutic Exercises Next Visit Focus/Plan Next Note Type Treatment Note Next Visit Plan Continue aquatic PT with emphasis on improving strength , gait, balance, and mobility safety.
--- NOTE | 2021-12-08 17:21 | PT.OPPOC ---
Physical, Occupational & Speech Therapy At Current Diagnoses Multiple sclerosis (12/08/21) Paraplegia, incomplete (12/08/21) Visit Care Team Role Provider Type Rehan Zacarias MD Family Provider Physician Primary Care Provider Specialty: Internal Medicine Address: [address] [place] [address], [address], [place], [address] Email: [email or web address] Rufino Umaña MD Attending Provider Non-Staff Referring Provider Specialty: Psychiatry Address: [address] [place] [address], [address], [place], [address] Email: Plan Of Care PT-OP-T Assessment and Plan Start: 05/20/21 17:44 Freq: Status: Active Protocol: Document 12/08/21 17:10 [facility] (Rec: 12/08/21 17:20 [facility] [id number]) Physical Therapy Assessment Goals Four Impairment LE weakness Impairment 5x sit to stand test 17 sec 10/15/21: improved to 15 sec with slight dec use of hands 12/08/21: unable to assess today due to session in pool, reporting more difficulty with increased need to use hands Residential Goal (LTG) Improve 5x sit to stand test to no greater than 12 sec as measure of improved functional LE strength LTG Duration 03/09/22 Three Impairment no current aquatic exercise Can Sorter Goal (LTG) Patient will be safe and independent with a progressive aquatic exercise program addressing LE strengthening, gait and balance. 10/15/21: Continue to progress aquatic exercise program, she is now able to walk with SBA ( vs mod assist when first started aquatic PT) in chest level water, increased assist with decreased depth of water. Decreased LOB incidence noted. 12/08/21: improving aquatic exercise tolerance, prior to break in aquatic PT had been tolerating gentle progression of activities well LTG Duration 03/09/22 One Impairment lack of independence with her walking in her home Residential Goal (LTG) Patient will be able to ambulate safely for short distance ambulation in her home independently to improve her independence and quality of life. 10/15/21: Able to ambulate very short distances for transfers , improved 12/08/21: Has improved to 60 ft . pt goal of gait 110 ft with FWW without legs giving way. LTG Duration 03/09/22 Two Impairment Decreased gait and balance ability Impairment Tinetti gait and balance assessment 8 indicating patient at high risk for falls 10/15/21: unable to retest as at pool today, patient reporting improved balance in sitting when reaching for objects, uncertain standing as using walker and very short distances Activities-specific Balance Confidence (ABC) scale 14% 12/08/21: again unable to assess as at pool but now able to stand on 1 foot in shallow water without UE support max 10 sec right and 7 sec left ( previously unable without UE support) Can Sorter Goal (LTG) Improve Tinetti gait and balance score to at least 15/ 28 to decrease patient risk for falls Improve ABC scale to at least 30% as measure of improved confidence in her mobility LTG Duration 03/09/22 Progress Towards Goals Progress Towards Goals Progressing Toward Goals Assessment Summary Assessment Patient continues to make progress toward goals, though recent long break from aquatic PT due to pool closure and PT vacation and illness caused some recent decline in her function. Recommend further skilled aquatic PT to help patient fully achieve her PT goals and transition to an independent community-based aquatic exercise program. Physical Therapy Plan Frequency and Duration Frequency of Treatment 1x/Week Duration of Treatment 12 wks Plan of Care Start Date 12/08/21 Plan of Care End Date 03/09/22 Therapeutic Interventions Therapeutic Interventions Aquatic Therapy,Balance Training,Home Exercise Program ,Neuromuscular Re-education, Patient/Caregiver Education, Self-Care/Home Management, Therapeutic Activities, Therapeutic Exercises Next Visit Focus/Plan Next Note Type Treatment Note Next Visit Plan Continue aquatic PT with emphasis on improving strength , gait, balance, and mobility safety. Plan of Care Dates Plan of Care Start Date 12/08/21 Plan of Care End Date 03/09/22 Electronically Signed by: Bertha Redding, PT 12/08/21 [id number] If you are in agreement with this Plan of Care, please return a signed and dated copy. I have reviewed this Plan of Care and certify that the skilled therapy services above are required to meet the patient?s needs. Physician Signature Date Printed Name and Credentials Clinical Instructor Signature Printed Name and Credentials
--- NOTE | 2021-12-31 15:36 | PT.OTN ---
Current Diagnoses Multiple sclerosis (12/08/21) Paraplegia, incomplete (12/08/21) Physical Therapy Treatment Note PT-OP-A Visit Information Start: 05/20/21 17:44 Freq: Status: Active Protocol: Document 12/31/21 15:21 NANCY (Rec: 12/31/21 15:35 LJ [id number]) Out-Patient Physical Therapy Visit Information Visit Information Visit Type Aquatic Treatment Note Visit Start Time 11:00 Visit Stop Time 11:45 Total Visit Minutes 45 Visit Number 13 Number of CROWN BUFFER Visits 0 Evaluation Information Evaluation Date 05/21/21 Precautions Precautions esophageal stenosis negative response to overheating HTN related to medications, being weaned off and will start a new medication PT-OP-B Current Condition Start: 05/20/21 17:44 Freq: Status: Active Protocol: Document 05/21/21 14:32 SAK (Rec: 05/21/21 15:20 SAK [id number]) Current Condition History of Current Condition Onset Date 2 years Current Complaints MS with LE weakness right greater than left History of Current Condition Patient previously did land- based PT for MS. Now referred for aquatic PT. Main c/o are LE weakness, difficulty ambulating; 120' max with Fww needs w/c behind in case LE's give way, and balance difficulty. Doing HEP fairly consistently but not as much as I should. Lives in downstairs apartment, Aunt lives above and comes down to assist with exercises. Patient able to do most self- care by herself with some set- up assist from Aunt. Also c/ o tightness in LE's especially quads as well as cramping and right foot going out to the side with gait. Can't feel where her feet are due to loss of sensation in LE's. Fell 1x this month from sitting while reaching. Was able to transfer back to chair. Only walks when has help. Prior Treatments and Tests Land-based PT Future Testing and Treatments Planned none at this time. 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 Hobbies Unable to access the stage or green room with w/c. Personal Factors Other Personal Factors That May Effect assisted to appointments by Therapy/Recovery aunt PT-OP-C Subjective Start: 05/20/21 17:44 Freq: Status: Active Protocol: Document 12/31/21 15:21 LJ (Rec: 12/31/21 15:35 LJ [id number]) OP-PT Subjective Patient Comments Patient Comments Pt reports she is tired from quick trip she took to a wedding. Flew in last night. She feels tight hips, shoulders, and rhomboids from sitting in and maneuvering her WC so much during trip. States she has lost some stamina but wants to work out and challenge herself. PT-OP-D Balance Start: 05/20/21 17:44 Freq: Status: Active Protocol: Document 05/21/21 14:32 SAK (Rec: 05/21/21 17:31 [facility] [id number]) Tinetti Balance Assessment Sitting Balance Sitting Balance Steady, safe Arising from Chair Ability to Arise Able, w/o using arms Standing Balance Immediate Standing Balance Steady with support Standing Balance Unsteady Nudged Response Begins to fall Standing with Eyes Closed Unsteady Turning Step Pattern Turning 360 Degrees Discontinuous steps Stability Turning 360 Degrees Unsteady, grabs/staggers Sitting Down Sitting Down Uses arms or unsteady Gait and Step Initiation of Gait Hesitancy, mult. attempts Right Foot Step Length Does not pass stance ft. Right Foot Step Height Does not clear floor Left Foot Step Length Does not pass stance foot Left Foot Step Height Does not clear floor Step Description Step Symmetry Step length appears equal Step Continuity Steps appear continuous Gait Description Path Description Mild/moderate deviation Trunk Description Marked sway or uses aide Walking Stance Heels apart Scoring and Interpretation Tinetti Composite Score (points) 8 PT-OP-G Mobility & Gait Start: 05/20/21 17:44 Freq: Status: Active Protocol: Document 05/21/21 14:32 SAK (Rec: 05/21/21 17:31 [facility] [id number]) OP Mobility Evaluation Bed Mobility Rolling indep Supine to and from Sit indep Transfers Sit to Stand indep Bed to Chair Transfers indep Floor Transfers variable, most recentlky after fall was able to transfer back into w/c Wheelchair Management Type of Wheelchair manual Assessment Details Patient didn't bring own chair to PT today OP Gait Assessment Gait Gait Assistance Required: Standby Assistance Distance (Feet) 63 Assistive Devices Assistive Device Front Wheeled Walker Orthotic/Prosthetic Devices or Brace: No Gait Deviations General Gait Pattern Decreased Feet Clearance Factors Limiting Gait Function Factors Limiting Gait Function Abnormal Tonal Influences, Decreased Strength,Poor Balance Stair Climbing Evaluation Comments Stair Climbing Comments patient unable PT-OP-H Neuro Start: 05/20/21 17:44 Freq: Status: Active Protocol: Document 05/21/21 14:32 [facility] (Rec: 05/21/21 17:31 [facility] [id number]) Sensation Evaluation Gross Sensation Gross Sensation Left LE Impaired,Right LE Impaired Sensation Description Paresthesia Comments Summary Comments poor proprioception bilateral LE's; patient reports some better when walks barefoot at home, but has difficulty knowing where her feet are in space. Coordination Evaluation Comments Coordination Comments decreased speed and accuracy of movement bilateral LE's right greater than left PT-OP-M Strength Start: 05/20/21 17:44 Freq: Status: Active Protocol: Document 05/21/21 14:32 [facility] (Rec: 05/21/21 17:31 [facility] [id number]) Hip Strength Hip Manual Muscle Testing Left Flexion (L2) 4 Good Extension (S1) 4- Good- Abduction 4- Good- Adduction 4 Good External Rotation 4- Good- Internal Rotation 4- Good- Right Flexion (L2) 4- Good- Extension (S1) 3+ Fair+ Abduction 3+ Fair+ Adduction 4- Good- External Rotation 3+ Fair+ Internal Rotation 4- Good- Knee Strength Knee Manual Muscle Testing Left Flexion (S2) 4+ Good+ Extension (L3) 4 Good Right Flexion (S2) 4 Good Extension (L3) 4- Good- Ankle/Foot Strength Ankle and Foot Manual Muscle Testing Left Dorsiflexion (L4) 4 Good Plantarflexion (S1) 4+ Good+ Inversion 4 Good Eversion (S1) 4+ Good+ Right Dorsiflexion (L4) 4- Good- Plantarflexion (S1) 4 Good Inversion 3+ Fair+ Eversion (S1) 4- Good- PT-OP-Q Treatments Start: 05/20/21 17:44 Freq: Status: Active Protocol: Document 05/21/21 14:32 [facility] (Rec: 05/21/21 17:31 [facility] [id number]) Self-Care/Home Management Treatment Education Patient Education Fall Risk,Home Exercise Program,Safety Other Education Discussion of aquatic therapy, benefits, logistics and preparation PT-OP-S Aquatic Treatment Start: 05/20/21 17:44 Freq: Status: Active Protocol: Document 12/31/21 15:21 (Rec: 12/31/21 15:35 [id number]) Aquatics Treatment Pool Entry/Exit Pool Entry/Exit Method Lift Assistance Standby Assistance Water Walking Lunge Walk Water Level Waist Level Level of Assistance Standby Assistance Comments occasional hh on wall straight leg march Walking Equipment Large Noodle Level of Assistance Standby Assistance march kick Water Level Chest Level Level of Assistance Standby Assistance stop start Water Level Chest Level Level of Assistance Standby Assistance Sideways Water Level Chest Level Level of Assistance Standby Assistance Comments lg step for stretch Backwards Water Level Chest Level Level of Assistance Standby Assistance forward Water Level Chest Level Level of Assistance Standby Assistance Lower Extremity Exercises 4 joselin hip Body Position Standing Water Level Chest Level Reps/Duration 10x ea Lower Extremity Stretches piriformis Details at wall Body Position Sitting Reps/Duration 2x45 hip flexor, quads, HS, gastroc Details hh on wall Body Position Standing Water Level Chest Level Equipment Small Noodle Reps/Duration 30 x 2 B Comments noodle with HS-assisted Upper Extremity Exercises hip thrust Body Position Standing Water Level Waist Level Equipment stretch cords trunk rotation Details at wall Body Position Standing Water Level Waist Level Reps/Duration 10 b Upper Extremity Stretches rhomboids Body Position Standing Reps/Duration 2x45 [place] Activities [place] Activities Bicycle,[place] Other Activities deep kicks pendulum prone extension shoulder stretch-snow angles supine Equipment med belt, #2 wts, M BBs PT-OP-T Assessment and Plan Start: 05/20/21 17:44 Freq: Status: Active Protocol: Document 12/31/21 15:21 (Rec: 12/31/21 15:35 [id number]) Physical Therapy Assessment Rehab Potential Rehabilitation Potential Good Evaluation Complexity Number of Personal Factors/Comorbidities 1-2 Number of Body Systems Impaired 3 Clinical Presentation at Evaluation Evolving Impairments Impairments Balance,Gait,Strength Goals Four Impairment LE weakness Impairment 5x sit to stand test 17 sec 10/15/21: improved to 15 sec with slight dec use of hands 12/08/21: unable to assess today due to session in pool, reporting more difficulty with increased need to use hands Assisted Goal (LTG) Improve 5x sit to stand test to no greater than 12 sec as measure of improved functional LE strength LTG Duration 03/09/22 Three Impairment no current aquatic exercise Bond Clerk Goal (LTG) Patient will be safe and independent with a progressive aquatic exercise program addressing LE strengthening, gait and balance. 10/15/21: Continue to progress aquatic exercise program, she is now able to walk with SBA ( vs mod assist when first started aquatic PT) in chest level water, increased assist with decreased depth of water. Decreased LOB incidence noted. 12/08/21: improving aquatic exercise tolerance, prior to break in aquatic PT had been tolerating gentle progression of activities well LTG Duration 03/09/22 One Impairment lack of independence with her walking in her home Bond Clerk Goal (LTG) Patient will be able to ambulate safely for short distance ambulation in her home independently to improve her independence and quality of life. 10/15/21: Able to ambulate very short distances for transfers , improved 12/08/21: Has improved to 60 ft . pt goal of gait 110 ft with FWW without legs giving way. LTG Duration 03/09/22 Two Impairment Decreased gait and balance ability Impairment Tinetti gait and balance assessment 8/28 indicating patient at high risk for falls 10/15/21: unable to retest as at pool today, patient reporting improved balance in sitting when reaching for objects, uncertain standing as using walker and very short distances Activities-specific Balance Confidence (ABC) scale 14% 12/08/21: again unable to assess as at pool but now able to stand on 1 foot in shallow water without UE support max 10 sec right and 7 sec left ( previously unable without UE support) Assisted Goal (LTG) Improve Tinetti gait and balance score to at least 15/ 28 to decrease patient risk for falls Improve ABC scale to at least 30% as measure of improved confidence in her mobility LTG Duration 03/09/22 Progress Towards Goals Progress Towards Goals Progressing Toward Goals Assessment Summary Assessment Patient continues to make progress toward goals, though recent long break from aquatic PT due to illness and travel. Pt declines working on step- ups on boxes due to fatigue at end of session. Finished with walking for spinal recompressing post deep water exercises. Recommend further skilled aquatic PT to help patient fully achieve her PT goals and transition to an independent community-based aquatic exercise program.
--- NOTE | 2022-01-07 15:40 | PT.OTN ---
Current Diagnoses Multiple sclerosis (01/07/22) Paraplegia, incomplete (01/07/22) Physical Therapy Treatment Note PT-OP-A Visit Information Start: 05/20/21 17:44 Freq: Status: Active Protocol: Document 01/07/22 15:27 NANCY (Rec: 01/07/22 15:40 LJ [id number]) Out-Patient Physical Therapy Visit Information Visit Information Visit Type Aquatic Treatment Note Visit Start Time 11:45 Visit Stop Time 12:30 Total Visit Minutes 45 Visit Number 14 Number of BLEACH BOILER PULLER Visits 2 Evaluation Information Evaluation Date 05/21/21 Precautions Precautions esophageal stenosis negative response to overheating HTN related to medications, being weaned off and will start a new medication PT-OP-B Current Condition Start: 05/20/21 17:44 Freq: Status: Active Protocol: Document 05/21/21 14:32 SAK (Rec: 05/21/21 15:20 SAK [id number]) Current Condition History of Current Condition Onset Date 2 years Current Complaints MS with LE weakness right greater than left History of Current Condition Patient previously did land- based PT for MS. Now referred for aquatic PT. Main c/o are LE weakness, difficulty ambulating; 120' max with Fww needs w/c behind in case LE's give way, and balance difficulty. Doing HEP fairly consistently but not as much as I should. Lives in downstairs apartment, Aunt lives above and comes down to assist with exercises. Patient able to do most self- care by herself with some set- up assist from Aunt. Also c/ o tightness in LE's especially quads as well as cramping and right foot going out to the side with gait. Can't feel where her feet are due to loss of sensation in LE's. Fell 1x this month from sitting while reaching. Was able to transfer back to chair. Only walks when has help. Prior Treatments and Tests Land-based PT Future Testing and Treatments Planned none at this time. 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 Hobbies Unable to access the stage or green room with w/c. Personal Factors Other Personal Factors That May Effect assisted to appointments by Therapy/Recovery aunt PT-OP-C Subjective Start: 05/20/21 17:44 Freq: Status: Active Protocol: Document 01/07/22 15:27 LJ (Rec: 01/07/22 15:40 LJ [id number]) OP-PT Subjective Patient Comments Patient Comments Pt states she is doing ok but hasn't had as much opportunity to walk and stretch as she would like. PT-OP-D Balance Start: 05/20/21 17:44 Freq: Status: Active Protocol: Document 05/21/21 14:32 SAK (Rec: 05/21/21 17:31 SAK [id number]) Tinetti Balance Assessment Sitting Balance Sitting Balance Steady, safe Arising from Chair Ability to Arise Able, w/o using arms Standing Balance Immediate Standing Balance Steady with support Standing Balance Unsteady Nudged Response Begins to fall Standing with Eyes Closed Unsteady Turning Step Pattern Turning 360 Degrees Discontinuous steps Stability Turning 360 Degrees Unsteady, grabs/staggers Sitting Down Sitting Down Uses arms or unsteady Gait and Step Initiation of Gait Hesitancy, mult. attempts Right Foot Step Length Does not pass stance ft. Right Foot Step Height Does not clear floor Left Foot Step Length Does not pass stance foot Left Foot Step Height Does not clear floor Step Description Step Symmetry Step length appears equal Step Continuity Steps appear continuous Gait Description Path Description Mild/moderate deviation Trunk Description Marked sway or uses aide Walking Stance Heels apart Scoring and Interpretation Tinetti Composite Score (points) 8 PT-OP-G Mobility & Gait Start: 05/20/21 17:44 Freq: Status: Active Protocol: Document 05/21/21 14:32 [facility] (Rec: 05/21/21 17:31 [facility] [id number]) OP Mobility Evaluation Bed Mobility Rolling indep Supine to and from Sit indep Transfers Sit to Stand indep Bed to Chair Transfers indep Floor Transfers variable, most recentlky after fall was able to transfer back into w/c Wheelchair Management Type of Wheelchair manual Assessment Details Patient didn't bring own chair to PT today OP Gait Assessment Gait Gait Assistance Required: Standby Assistance Distance (Feet) 63 Assistive Devices Assistive Device Front Wheeled Walker Orthotic/Prosthetic Devices or Brace: No Gait Deviations General Gait Pattern Decreased Feet Clearance Factors Limiting Gait Function Factors Limiting Gait Function Abnormal Tonal Influences, Decreased Strength,Poor Balance Stair Climbing Evaluation Comments Stair Climbing Comments patient unable PT-OP-H Neuro Start: 05/20/21 17:44 Freq: Status: Active Protocol: Document 05/21/21 14:32 SAK (Rec: 05/21/21 17:31 [facility] [id number]) Sensation Evaluation Gross Sensation Gross Sensation Left LE Impaired,Right LE Impaired Sensation Description Paresthesia Comments Summary Comments poor proprioception bilateral LE's; patient reports some better when walks barefoot at home, but has difficulty knowing where her feet are in space. Coordination Evaluation Comments Coordination Comments decreased speed and accuracy of movement bilateral LE's right greater than left PT-OP-M Strength Start: 05/20/21 17:44 Freq: Status: Active Protocol: Document 05/21/21 14:32 SAK (Rec: 05/21/21 17:31 [facility] [id number]) Hip Strength Hip Manual Muscle Testing Left Flexion (L2) 4 Good Extension (S1) 4- Good- Abduction 4- Good- Adduction 4 Good External Rotation 4- Good- Internal Rotation 4- Good- Right Flexion (L2) 4- Good- Extension (S1) 3+ Fair+ Abduction 3+ Fair+ Adduction 4- Good- External Rotation 3+ Fair+ Internal Rotation 4- Good- Knee Strength Knee Manual Muscle Testing Left Flexion (S2) 4+ Good+ Extension (L3) 4 Good Right Flexion (S2) 4 Good Extension (L3) 4- Good- Ankle/Foot Strength Ankle and Foot Manual Muscle Testing Left Dorsiflexion (L4) 4 Good Plantarflexion (S1) 4+ Good+ Inversion 4 Good Eversion (S1) 4+ Good+ Right Dorsiflexion (L4) 4- Good- Plantarflexion (S1) 4 Good Inversion 3+ Fair+ Eversion (S1) 4- Good- PT-OP-Q Treatments Start: 05/20/21 17:44 Freq: Status: Active Protocol: Document 05/21/21 14:32 SAK (Rec: 05/21/21 17:31 [facility] [id number]) Self-Care/Home Management Treatment Education Patient Education Fall Risk,Home Exercise Program,Safety Other Education Discussion of aquatic therapy, benefits, logistics and preparation PT-OP-S Aquatic Treatment Start: 05/20/21 17:44 Freq: Status: Active Protocol: Document 01/07/22 15:27 LJ (Rec: 01/07/22 15:40 NANCY [id number]) Aquatics Treatment Pool Entry/Exit Pool Entry/Exit Method Lift Assistance Standby Assistance Water Walking Lunge Walk Water Level Waist Level Level of Assistance Standby Assistance straight leg march Walking Equipment Large Noodle Level of Assistance Standby Assistance march kick Water Level Chest Level Level of Assistance Standby Assistance Comments UEs for balance directional changes Water Level Chest Level Level of Assistance Standby Assistance,Verbal Cues Comments UEs for balance Marching Water Level Chest Level Level of Assistance Standby Assistance Sideways Water Level Chest Level Level of Assistance Standby Assistance Comments lg step for stretch Backwards Water Level Chest Level Level of Assistance Standby Assistance forward Water Level Chest Level Level of Assistance Standby Assistance Lower Extremity Exercises step-ups Details red boxes 8 Body Position Standing Water Level Chest Level Reps/Duration 6x Comments forward; pt LEs fatigued after Lower Extremity Stretches adductors Details feet on wall Body Position Sitting-supine Equipment noodle under axilla Reps/Duration 2 min Comments body swing assisted by BLEACH BOILER PULLER holding pt to wall from behind piriformis Details at wall Body Position Sitting Reps/Duration 2x45 hip flexor, quads, HS, gastroc Details hh on wall Body Position Standing Water Level Chest Level Reps/Duration 30 x 2 B Comments therapist assist Upper Extremity Exercises shoulder flex/ext Body Position Standing Equipment BBs Reps/Duration 10x Comments no wall support rows Body Position Standing Water Level Chest Level Equipment BBs Reps/Duration 10x hor ab/ad Details chelle and unil Equipment BBs Reps/Duration 10x Comments no support from wall Spinal Exercises crunch Body Position Supine Equipment M BBs Reps/Duration 10x [place] Activities [place] Activities Bicycle,[place] Other Activities deep kicks pendulum forward burpees 15 L sit pull Equipment med belt, M BBs Duration 15 Swim Strokes sidestroke Laps/Duration 15 m x 2 Flutter Laps/Duration 20M Comments prone w/belt and BBs PT-OP-T Assessment and Plan Start: 05/20/21 17:44 Freq: Status: Active Protocol: Document 01/07/22 15:27 NANCY (Rec: 01/07/22 15:40 [id number]) Physical Therapy Assessment Rehab Potential Rehabilitation Potential Good Evaluation Complexity Number of Personal Factors/Comorbidities 1-2 Number of Body Systems Impaired 3 Clinical Presentation at Evaluation Evolving Impairments Impairments Balance,Gait,Strength Goals Four Impairment LE weakness Impairment 5x sit to stand test 17 sec 7/27/22: improved to 15 sec with slight dec use of hands 12/08/21: unable to assess today due to session in pool, reporting more difficulty with increased need to use hands Group Home Goal (LTG) Improve 5x sit to stand test to no greater than 12 sec as measure of improved functional LE strength LTG Duration 03/09/22 Three Impairment no current aquatic exercise Overedge Sewer Goal (LTG) Patient will be safe and independent with a progressive aquatic exercise program addressing LE strengthening, gait and balance. 10/15/21: Continue to progress aquatic exercise program, she is now able to walk with SBA ( vs mod assist when first started aquatic PT) in chest level water, increased assist with decreased depth of water. Decreased LOB incidence noted. 12/08/21: improving aquatic exercise tolerance, prior to break in aquatic PT had been tolerating gentle progression of activities well LTG Duration 03/09/22 One Impairment lack of independence with her walking in her home Group Home Goal (LTG) Patient will be able to ambulate safely for short distance ambulation in her home independently to improve her independence and quality of life. 10/15/21: Able to ambulate very short distances for transfers , improved 12/08/21: Has improved to 60 ft . pt goal of gait 110 ft with FWW without legs giving way. LTG Duration 03/09/22 Two Impairment Decreased gait and balance ability Impairment Tinetti gait and balance assessment 8 indicating patient at high risk for falls 10/15/21: unable to retest as at pool today, patient reporting improved balance in sitting when reaching for objects, uncertain standing as using walker and very short distances Activities-specific Balance Confidence (ABC) scale 14% 12/08/21: again unable to assess as at pool but now able to stand on 1 foot in shallow water without UE support max 10 sec right and 7 sec left ( previously unable without UE support) Group Home Goal (LTG) Improve Tinetti gait and balance score to at least 15/ 28 to decrease patient risk for falls Improve ABC scale to at least 30% as measure of improved confidence in her mobility LTG Duration 03/09/22 Progress Towards Goals Progress Towards Goals Progressing Toward Goals Assessment Summary Assessment Pt experienced LE knee buckling more often than previous sessions with stnding activities R>L. Was able to maintain vertical in deep water w/o ankle weights demonstrating improved core control. Pt will benefit from aquatic therapy to address above goals and maintain strength for as much independence as possible. Physical Therapy Plan Frequency and Duration Frequency of Treatment 1x/Week Plan of Care Start Date 12/08/21 Plan of Care End Date 01/07/22 Therapeutic Interventions Therapeutic Interventions Aquatic Therapy,Balance Training,Home Exercise Program ,Neuromuscular Re-education, Patient/Caregiver Education, Self-Care/Home Management, Therapeutic Activities, Therapeutic Exercises
--- NOTE | 2022-01-14 16:49 | PT.OTN ---
Current Diagnoses Multiple sclerosis (01/14/22) Paraplegia, incomplete (01/14/22) Physical Therapy Treatment Note PT-OP-A Visit Information Start: 05/20/21 17:44 Freq: Status: Active Protocol: Document 01/15/22 10:15 SAK (Rec: 01/15/22 16:49 [facility] [id number]) Out-Patient Physical Therapy Visit Information Visit Information Visit Type Aquatic Treatment Note Total Visit Minutes 45 PT-OP-B Current Condition Start: 05/20/21 17:44 Freq: Status: Active Protocol: Document 05/21/21 14:32 SAK (Rec: 05/21/21 15:20 [facility] [id number]) Current Condition History of Current Condition Onset Date 2 years Current Complaints MS with LE weakness right greater than left History of Current Condition Patient previously did land- based PT for MS. Now referred for aquatic PT. Main c/o are LE weakness, difficulty ambulating; 120' max with Fww needs w/c behind in case LE's give way, and balance difficulty. Doing HEP fairly consistently but not as much as I should. Lives in downstairs apartment, Aunt lives above and comes down to assist with exercises. Patient able to do most self- care by herself with some set- up assist from Aunt. Also c/ o tightness in LE's especially quads as well as cramping and right foot going out to the side with gait. Can't feel where her feet are due to loss of sensation in LE's. Fell 1x this month from sitting while reaching. Was able to transfer back to chair. Only walks when has help. Prior Treatments and Tests Land-based PT Future Testing and Treatments Planned none at this time. 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 Hobbies Unable to access the stage or green room with w/c. Personal Factors Other Personal Factors That May Effect assisted to appointments by Therapy/Recovery aunt PT-OP-C Subjective Start: 05/20/21 17:44 Freq: Status: Active Protocol: Document 01/07/22 15:27 (Rec: 01/07/22 15:40 [facility] [id number]) OP-PT Subjective Patient Comments Patient Comments Pt states she is doing ok but hasn't had as much opportunity to walk and stretch as she would like. PT-OP-D Balance Start: 05/20/21 17:44 Freq: Status: Active Protocol: Document 05/21/21 14:32 SAK (Rec: 05/21/21 17:31 SAK [id number]) Tinetti Balance Assessment Sitting Balance Sitting Balance Steady, safe Arising from Chair Ability to Arise Able, w/o using arms Standing Balance Immediate Standing Balance Steady with support Standing Balance Unsteady Nudged Response Begins to fall Standing with Eyes Closed Unsteady Turning Step Pattern Turning 360 Degrees Discontinuous steps Stability Turning 360 Degrees Unsteady, grabs/staggers Sitting Down Sitting Down Uses arms or unsteady Gait and Step Initiation of Gait Hesitancy, mult. attempts Right Foot Step Length Does not pass stance ft. Right Foot Step Height Does not clear floor Left Foot Step Length Does not pass stance foot Left Foot Step Height Does not clear floor Step Description Step Symmetry Step length appears equal Step Continuity Steps appear continuous Gait Description Path Description Mild/moderate deviation Trunk Description Marked sway or uses aide Walking Stance Heels apart Scoring and Interpretation Tinetti Composite Score (points) 8 PT-OP-G Mobility & Gait Start: 05/20/21 17:44 Freq: Status: Active Protocol: Document 05/21/21 14:32 SAK (Rec: 05/21/21 17:31 [facility]AK [id number]) OP Mobility Evaluation Bed Mobility Rolling indep Supine to and from Sit indep Transfers Sit to Stand indep Bed to Chair Transfers indep Floor Transfers variable, most recentlky after fall was able to transfer back into w/c Wheelchair Management Type of Wheelchair manual Assessment Details Patient didn't bring own chair to PT today OP Gait Assessment Gait Gait Assistance Required: Standby Assistance Distance (Feet) 63 Assistive Devices Assistive Device Front Wheeled Walker Orthotic/Prosthetic Devices or Brace: No Gait Deviations General Gait Pattern Decreased Feet Clearance Factors Limiting Gait Function Factors Limiting Gait Function Abnormal Tonal Influences, Decreased Strength,Poor Balance Stair Climbing Evaluation Comments Stair Climbing Comments patient unable PT-OP-H Neuro Start: 05/20/21 17:44 Freq: Status: Active Protocol: Document 05/21/21 14:32 [facility] (Rec: 05/21/21 17:31 [facility] [id number]) Sensation Evaluation Gross Sensation Gross Sensation Left LE Impaired,Right LE Impaired Sensation Description Paresthesia Comments Summary Comments poor proprioception bilateral LE's; patient reports some better when walks barefoot at home, but has difficulty knowing where her feet are in space. Coordination Evaluation Comments Coordination Comments decreased speed and accuracy of movement bilateral LE's right greater than left PT-OP-M Strength Start: 05/20/21 17:44 Freq: Status: Active Protocol: Document 05/21/21 14:32 [facility] (Rec: 05/21/21 17:31 [facility] [id number]) Hip Strength Hip Manual Muscle Testing Left Flexion (L2) 4 Good Extension (S1) 4- Good- Abduction 4- Good- Adduction 4 Good External Rotation 4- Good- Internal Rotation 4- Good- Right Flexion (L2) 4- Good- Extension (S1) 3+ Fair+ Abduction 3+ Fair+ Adduction 4- Good- External Rotation 3+ Fair+ Internal Rotation 4- Good- Knee Strength Knee Manual Muscle Testing Left Flexion (S2) 4+ Good+ Extension (L3) 4 Good Right Flexion (S2) 4 Good Extension (L3) 4- Good- Ankle/Foot Strength Ankle and Foot Manual Muscle Testing Left Dorsiflexion (L4) 4 Good Plantarflexion (S1) 4+ Good+ Inversion 4 Good Eversion (S1) 4+ Good+ Right Dorsiflexion (L4) 4- Good- Plantarflexion (S1) 4 Good Inversion 3+ Fair+ Eversion (S1) 4- Good- PT-OP-Q Treatments Start: 05/20/21 17:44 Freq: Status: Active Protocol: Document 05/21/21 14:32 [facility] (Rec: 05/21/21 17:31 [facility] [id number]) Self-Care/Home Management Treatment Education Patient Education Fall Risk,Home Exercise Program,Safety Other Education Discussion of aquatic therapy, benefits, logistics and preparation PT-OP-S Aquatic Treatment Start: 05/20/21 17:44 Freq: Status: Active Protocol: Document 01/15/22 10:15 [facility] (Rec: 01/15/22 16:49 [facility] [id number]) Aquatics Treatment Pool Entry/Exit Pool Entry/Exit Method Lift Assistance Standby Assistance Water Walking Lunge Walk Water Level Waist Level Level of Assistance Standby Assistance straight leg march Level of Assistance Standby Assistance march kick Water Level Chest Level Level of Assistance Standby Assistance Comments UEs for balance directional changes Water Level Chest Level Level of Assistance Standby Assistance,Verbal Cues Comments UEs for balance stop start Water Level Chest Level Level of Assistance Standby Assistance Marching Water Level Chest Level Level of Assistance Standby Assistance Sideways Water Level Chest Level Level of Assistance Standby Assistance Comments lg step for stretch Backwards Water Level Chest Level Level of Assistance Standby Assistance forward Water Level Chest Level Level of Assistance Standby Assistance Lower Extremity Exercises step-ups Details red boxes 8 Body Position Standing Water Level Chest Level Reps/Duration 6x Comments forward; pt LEs fatigued after heels to toes Body Position Standing Water Level Chest Level Reps/Duration 10 ea Comments hh on wall 4 joselin hip Body Position Standing Water Level Chest Level Reps/Duration 10x ea Lower Extremity Stretches piriformis Details at wall Body Position Sitting Reps/Duration 2x45 hip flexor, quads, HS, gastroc Details hh on wall Body Position Standing Water Level Chest Level Reps/Duration 30 x 2 B Comments therapist assist Upper Extremity Exercises shoulder flex/ext Body Position Standing Equipment BBs Reps/Duration 10x Comments no wall support hip thrust Body Position Standing Water Level Waist Level Equipment stretch cords rows Body Position Standing Water Level Chest Level Equipment stretch cords Reps/Duration 10x hor ab/ad Details chelle and unil Equipment BBs Reps/Duration 10x Comments no support from wall trunk rotation Details at wall Body Position Standing Water Level Waist Level Reps/Duration 10 b HAB, HAD, B pull down Details at wall Body Position Sitting Water Level Neck Level Equipment small barbells Reps/Duration 10 ea Comments emphasis core stability Upper Extremity Stretches rhomboids Body Position Standing Reps/Duration 2x45 corner stretch Details at wall Body Position Standing Reps/Duration 45 sec Spinal Exercises supine to stand Body Position Supine Reps/Duration 4x Comments CGA crunch Body Position Supine Equipment M BBs Reps/Duration 10x prone over beach ball Reps/Duration 1 min tiltboard sit Details EO and EC, knee touch Reps/Duration 3 min Balance SLS Details no UE support Water Level Chest Level Comments max 10 right, 10 left chest level water Manual Techniques Aquatic Massage 2 min AquaStretch for shoulder girdle release of rhomboids PT-OP-T Assessment and Plan Start: 05/20/21 17:44 Freq: Status: Active Protocol: Document 01/15/22 10:15 SAK (Rec: 01/15/22 16:49 [facility] [id number]) Physical Therapy Assessment Impairments Impairments Balance,Gait,Strength Goals Four Impairment LE weakness Impairment 5x sit to stand test 17 sec 10/15/21: improved to 15 sec with slight dec use of hands 12/08/21: unable to assess today due to session in pool, reporting more difficulty with increased need to use hands Longterm Goal (LTG) Improve 5x sit to stand test to no greater than 12 sec as measure of improved functional LE strength LTG Duration 03/09/22 Three Impairment no current aquatic exercise Longterm Goal (LTG) Patient will be safe and independent with a progressive aquatic exercise program addressing LE strengthening, gait and balance. 10/15/21: Continue to progress aquatic exercise program, she is now able to walk with SBA ( vs mod assist when first started aquatic PT) in chest level water, increased assist with decreased depth of water. Decreased LOB incidence noted. 12/08/21: improving aquatic exercise tolerance, prior to break in aquatic PT had been tolerating gentle progression of activities well 01/14/22: Good progress with aquatic exercise program with improved safety and comfort level. LTG Duration 03/09/22 One Impairment lack of independence with her walking in her home Welder Operator Goal (LTG) Patient will be able to ambulate safely for short distance ambulation in her home independently to improve her independence and quality of life. 10/15/21: Able to ambulate very short distances for transfers , improved 12/08/21: Has improved to 60 ft . pt goal of gait 110 ft with FWW without legs giving way. 01/14/22: No further progression per small house; patient reports she will attempt further LTG Duration 03/09/22 Two Impairment Decreased gait and balance ability Impairment Tinetti gait and balance assessment 11/16 indicating patient at high risk for falls 10/15/21: unable to retest as at pool today, patient reporting improved balance in sitting when reaching for objects, uncertain standing as using walker and very short distances Activities-specific Balance Confidence (ABC) scale 14% 12/08/21: again unable to assess as at pool but now able to stand on 1 foot in shallow water without UE support max 10 sec right and 7 sec left ( previously unable without UE support) 01/14/22: SLS 10 sec chelle in chest level water Longterm Goal (LTG) Improve Tinetti gait and balance score to at least 15/ 28 to decrease patient risk for falls Improve ABC scale to at least 30% as measure of improved confidence in her mobility LTG Duration 03/09/22 Progress Towards Goals Progress Towards Goals Progressing Toward Goals Assessment Summary Assessment Patient functional strength variable, improved balance with aquatic therapy activities and improved core control and strength as evidenced by not needing weights on ankles to maintain vertical position in the pool. Benefiting from aquatic PT. Physical Therapy Plan Frequency and Duration Frequency of Treatment 1x/Week Duration of treatment (weeks) 8 Plan of Care Start Date 01/14/22 Plan of Care End Date 03/16/22 Therapeutic Interventions Therapeutic Interventions Aquatic Therapy,Balance Training,Home Exercise Program ,Neuromuscular Re-education, Patient/Caregiver Education, Self-Care/Home Management, Therapeutic Activities, Therapeutic Exercises Next Visit Focus/Plan Next Note Type Re-Evaluation Next Visit Plan Re-evaluation on land. Continue aquatic PT with emphasis on improving strength , gait, balance, and mobility safety.
--- NOTE | 2022-01-14 16:50 | PT.OPPOC ---
Physical, Occupational & Speech Therapy At [facility] Current Diagnoses Multiple sclerosis (01/14/22) Paraplegia, incomplete (01/14/22) Visit Care Team Role Provider Type Rehan Zacarias MD Family Provider Physician Primary Care Provider Specialty: Internal Medicine Address: [address] [place] [address], [address], [address] Email: [email or web address] Umaña MD Attending Provider Non-Staff Referring Provider Specialty: Psychiatry Address: [address] [place] [address], [address], [place], [address] Email: Plan Of Care PT-OP-T Assessment and Plan Start: 05/20/21 17:44 Freq: Status: Active Protocol: Document 01/15/22 10:15 SAK (Rec: 01/15/22 16:49 SAK [id number]) Physical Therapy Assessment Impairments Impairments Balance,Gait,Strength Goals Four Impairment LE weakness Impairment 5x sit to stand test 17 sec 10/15/21: improved to 15 sec with slight dec use of hands 12/08/21: unable to assess today due to session in pool, reporting more difficulty with increased need to use hands Unit Clerk Goal (LTG) Improve 5x sit to stand test to no greater than 12 sec as measure of improved functional LE strength LTG Duration 03/09/22 Three Impairment no current aquatic exercise Unit Clerk Goal (LTG) Patient will be safe and independent with a progressive aquatic exercise program addressing LE strengthening, gait and balance. 10/15/21: Continue to progress aquatic exercise program, she is now able to walk with SBA ( vs mod assist when first started aquatic PT) in chest level water, increased assist with decreased depth of water. Decreased LOB incidence noted. 12/08/21: improving aquatic exercise tolerance, prior to break in aquatic PT had been tolerating gentle progression of activities well 01/14/22: Good progress with aquatic exercise program with improved safety and comfort level. LTG Duration 03/09/22 One Impairment lack of independence with her walking in her home Intermediate Goal (LTG) Patient will be able to ambulate safely for short distance ambulation in her home independently to improve her independence and quality of life. 10/15/21: Able to ambulate very short distances for transfers , improved 12/08/21: Has improved to 60 ft . pt goal of gait 110 ft with FWW without legs giving way. 01/14/22: No further progression per small house; patient reports she will attempt further LTG Duration 03/09/22 Two Impairment Decreased gait and balance ability Impairment Tinetti gait and balance assessment 8 indicating patient at high risk for falls 10/15/21: unable to retest as at pool today, patient reporting improved balance in sitting when reaching for objects, uncertain standing as using walker and very short distances Activities-specific Balance Confidence (ABC) scale 14% 12/08/21: again unable to assess as at pool but now able to stand on 1 foot in shallow water without UE support max 10 sec right and 7 sec left ( previously unable without UE support) 01/14/22: SLS 10 sec chelle in chest level water Intermediate Goal (LTG) Improve Tinetti gait and balance score to at least 15/ 28 to decrease patient risk for falls Improve ABC scale to at least 30% as measure of improved confidence in her mobility LTG Duration 03/09/22 Progress Towards Goals Progress Towards Goals Progressing Toward Goals Assessment Summary Assessment Patient functional strength variable, improved balance with aquatic therapy activities and improved core control and strength as evidenced by not needing weights on ankles to maintain vertical position in the pool. Benefiting from aquatic PT. Physical Therapy Plan Frequency and Duration Frequency of Treatment 1x/Week Duration of treatment (weeks) 8 Plan of Care Start Date 01/14/22 Plan of Care End Date 03/16/22 Therapeutic Interventions Therapeutic Interventions Aquatic Therapy,Balance Training,Home Exercise Program ,Neuromuscular Re-education, Patient/Caregiver Education, Self-Care/Home Management, Therapeutic Activities, Therapeutic Exercises Next Visit Focus/Plan Next Note Type Re-Evaluation Next Visit Plan Re-evaluation on land. Continue aquatic PT with emphasis on improving strength , gait, balance, and mobility safety. Plan of Care Dates Plan of Care Start Date 01/14/22 Plan of Care End Date 03/16/22 Electronically Signed by: Bertha Redding, PT 01/15/22 7320 If you are in agreement with this Plan of Care, please return a signed and dated copy. I have reviewed this Plan of Care and certify that the skilled therapy services above are required to meet the patient?s needs. Physician Signature Date Printed Name and Credentials Clinical Instructor Signature Printed Name and Credentials
--- NOTE | 2022-01-21 15:10 | PT.OTN ---
Current Diagnoses Multiple sclerosis (01/14/22) Paraplegia, incomplete (01/14/22) Physical Therapy Treatment Note PT-OP-A Visit Information Start: 05/20/21 17:44 Freq: Status: Active Protocol: Document 01/21/22 14:55 NANCY (Rec: 01/21/22 15:10 LJ [id number]) Out-Patient Physical Therapy Visit Information Visit Information Visit Type Aquatic Treatment Note Visit Start Time 11:45 Visit Stop Time 12:30 Total Visit Minutes 45 Visit Number 15 Number of COMMAND AND CONTROL Visits 3 Evaluation Information Evaluation Date 05/21/21 Precautions Precautions esophageal stenosis negative response to overheating HTN related to medications, being weaned off and will start a new medication PT-OP-B Current Condition Start: 05/20/21 17:44 Freq: Status: Active Protocol: Document 05/21/21 14:32 SAK (Rec: 05/21/21 15:20 SAK [id number]) Current Condition History of Current Condition Onset Date 2 years Current Complaints MS with LE weakness right greater than left History of Current Condition Patient previously did land- based PT for MS. Now referred for aquatic PT. Main c/o are LE weakness, difficulty ambulating; 120' max with Fww needs w/c behind in case LE's give way, and balance difficulty. Doing HEP fairly consistently but not as much as I should. Lives in downstairs apartment, Aunt lives above and comes down to assist with exercises. Patient able to do most self- care by herself with some set- up assist from Aunt. Also c/ o tightness in LE's especially quads as well as cramping and right foot going out to the side with gait. Can't feel where her feet are due to loss of sensation in LE's. Fell 1x this month from sitting while reaching. Was able to transfer back to chair. Only walks when has help. Prior Treatments and Tests Land-based PT Future Testing and Treatments Planned none at this time. 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 Hobbies Unable to access the stage or green room with w/c. Personal Factors Other Personal Factors That May Effect assisted to appointments by Therapy/Recovery aunt PT-OP-C Subjective Start: 05/20/21 17:44 Freq: Status: Active Protocol: Document 01/21/22 14:55 LJ (Rec: 01/21/22 15:10 LJ [id number]) OP-PT Subjective Patient Comments Patient Comments Pt states she hasn't been able to wlak much or stretch and says her hips are tight and a bit sore. PT-OP-D Balance Start: 05/20/21 17:44 Freq: Status: Active Protocol: Document 05/21/21 14:32 SAK (Rec: 05/21/21 17:31 SAK [id number]) Tinetti Balance Assessment Sitting Balance Sitting Balance Steady, safe Arising from Chair Ability to Arise Able, w/o using arms Standing Balance Immediate Standing Balance Steady with support Standing Balance Unsteady Nudged Response Begins to fall Standing with Eyes Closed Unsteady Turning Step Pattern Turning 360 Degrees Discontinuous steps Stability Turning 360 Degrees Unsteady, grabs/staggers Sitting Down Sitting Down Uses arms or unsteady Gait and Step Initiation of Gait Hesitancy, mult. attempts Right Foot Step Length Does not pass stance ft. Right Foot Step Height Does not clear floor Left Foot Step Length Does not pass stance foot Left Foot Step Height Does not clear floor Step Description Step Symmetry Step length appears equal Step Continuity Steps appear continuous Gait Description Path Description Mild/moderate deviation Trunk Description Marked sway or uses aide Walking Stance Heels apart Scoring and Interpretation Tinetti Composite Score (points) 8 PT-OP-G Mobility & Gait Start: 05/20/21 17:44 Freq: Status: Active Protocol: Document 05/21/21 14:32 [facility] (Rec: 05/21/21 17:31 SAK [id number]) OP Mobility Evaluation Bed Mobility Rolling indep Supine to and from Sit indep Transfers Sit to Stand indep Bed to Chair Transfers indep Floor Transfers variable, most recentlky after fall was able to transfer back into w/c Wheelchair Management Type of Wheelchair manual Assessment Details Patient didn't bring own chair to PT today OP Gait Assessment Gait Gait Assistance Required: Standby Assistance Distance (Feet) 63 Assistive Devices Assistive Device Front Wheeled Walker Orthotic/Prosthetic Devices or Brace: No Gait Deviations General Gait Pattern Decreased Feet Clearance Factors Limiting Gait Function Factors Limiting Gait Function Abnormal Tonal Influences, Decreased Strength,Poor Balance Stair Climbing Evaluation Comments Stair Climbing Comments patient unable PT-OP-H Neuro Start: 05/20/21 17:44 Freq: Status: Active Protocol: Document 05/21/21 14:32 SAK (Rec: 05/21/21 17:31 [facility] [id number]) Sensation Evaluation Gross Sensation Gross Sensation Left LE Impaired,Right LE Impaired Sensation Description Paresthesia Comments Summary Comments poor proprioception bilateral LE's; patient reports some better when walks barefoot at home, but has difficulty knowing where her feet are in space. Coordination Evaluation Comments Coordination Comments decreased speed and accuracy of movement bilateral LE's right greater than left PT-OP-M Strength Start: 05/20/21 17:44 Freq: Status: Active Protocol: Document 05/21/21 14:32 SAK (Rec: 05/21/21 17:31 [facility] [id number]) Hip Strength Hip Manual Muscle Testing Left Flexion (L2) 4 Good Extension (S1) 4- Good- Abduction 4- Good- Adduction 4 Good External Rotation 4- Good- Internal Rotation 4- Good- Right Flexion (L2) 4- Good- Extension (S1) 3+ Fair+ Abduction 3+ Fair+ Adduction 4- Good- External Rotation 3+ Fair+ Internal Rotation 4- Good- Knee Strength Knee Manual Muscle Testing Left Flexion (S2) 4+ Good+ Extension (L3) 4 Good Right Flexion (S2) 4 Good Extension (L3) 4- Good- Ankle/Foot Strength Ankle and Foot Manual Muscle Testing Left Dorsiflexion (L4) 4 Good Plantarflexion (S1) 4+ Good+ Inversion 4 Good Eversion (S1) 4+ Good+ Right Dorsiflexion (L4) 4- Good- Plantarflexion (S1) 4 Good Inversion 3+ Fair+ Eversion (S1) 4- Good- PT-OP-Q Treatments Start: 05/20/21 17:44 Freq: Status: Active Protocol: Document 05/21/21 14:32 SAK (Rec: 05/21/21 17:31 [facility] [id number]) Self-Care/Home Management Treatment Education Patient Education Fall Risk,Home Exercise Program,Safety Other Education Discussion of aquatic therapy, benefits, logistics and preparation PT-OP-S Aquatic Treatment Start: 05/20/21 17:44 Freq: Status: Active Protocol: Document 01/21/22 14:55 LJ (Rec: 01/21/22 15:10 NANCY [id number]) Aquatics Treatment Pool Entry/Exit Pool Entry/Exit Method Lift Assistance Standby Assistance Water Walking Lunge Walk Water Level Waist Level Walking Equipment Ankle Floats Level of Assistance Standby Assistance straight leg march Water Level Chest Level Walking Equipment Ankle Floats Level of Assistance Standby Assistance Marching Water Level Chest Level Walking Equipment Ankle Floats Level of Assistance Standby Assistance Sideways Water Level Chest Level Walking Equipment Ankle Floats Level of Assistance Standby Assistance Comments lg step for stretch forward Water Level Chest Level Walking Equipment Ankle Floats Level of Assistance Standby Assistance Spinal Exercises supine to stand Body Position Supine Equipment Ankle Floats Reps/Duration 5x Comments CGA crunch Body Position Supine Equipment Ankle Floats Reps/Duration 12x tiltboard sit Details EO and EC, hand out of water Reps/Duration 4 min [place] Activities [place] Activities Bicycle,Bicycle Backwards, Cross Country,Running,Hip Abduction/Adduction Other Activities L sit flutter kick pendulum-full and half rock and roll Equipment med belt, M BBs Duration 10 Manual Techniques Aquatic Manual Traction [employer] with AquaStretch with bilateral hips for stretching all directions PT-OP-T Assessment and Plan Start: 05/20/21 17:44 Freq: Status: Active Protocol: Document 01/21/22 14:55 NNACY (Rec: 01/21/22 15:10 NANCY [id number]) Physical Therapy Assessment Rehab Potential Rehabilitation Potential Good Evaluation Complexity Number of Personal Factors/Comorbidities 1-2 Number of Body Systems Impaired 3 Clinical Presentation at Evaluation Evolving Impairments Impairments Balance,Gait,Strength Goals Four Impairment LE weakness Impairment 5x sit to stand test 17 sec 10/15/21: improved to 15 sec with slight dec use of hands 12/08/21: unable to assess today due to session in pool, reporting more difficulty with increased need to use hands Community Action Worker Goal (LTG) Improve 5x sit to stand test to no greater than 12 sec as measure of improved functional LE strength LTG Duration 03/09/22 Three Impairment no current aquatic exercise Community Action Worker Goal (LTG) Patient will be safe and independent with a progressive aquatic exercise program addressing LE strengthening, gait and balance. 10/15/21: Continue to progress aquatic exercise program, she is now able to walk with SBA ( vs mod assist when first started aquatic PT) in chest level water, increased assist with decreased depth of water. Decreased LOB incidence noted. 12/08/21: improving aquatic exercise tolerance, prior to break in aquatic PT had been tolerating gentle progression of activities well 01/14/22: Good progress with aquatic exercise program with improved safety and comfort level. LTG Duration 03/09/22 One Impairment lack of independence with her walking in her home Community Action Worker Goal (LTG) Patient will be able to ambulate safely for short distance ambulation in her home independently to improve her independence and quality of life. 10/15/21: Able to ambulate very short distances for transfers , improved 12/08/21: Has improved to 60 ft . pt goal of gait 110 ft with FWW without legs giving way. 01/14/22: No further progression per small house; patient reports she will attempt further LTG Duration 03/09/22 Two Impairment Decreased gait and balance ability Impairment Tinetti gait and balance assessment 11/16 indicating patient at high risk for falls 10/15/21: unable to retest as at pool today, patient reporting improved balance in sitting when reaching for objects, uncertain standing as using walker and very short distances Activities-specific Balance Confidence (ABC) scale 14% 12/08/21: again unable to assess as at pool but now able to stand on 1 foot in shallow water without UE support max 10 sec right and 7 sec left ( previously unable without UE support) 01/14/22: SLS 10 sec chelle in chest level water Nursing Home Goal (LTG) Improve Tinetti gait and balance score to at least 15/ 28 to decrease patient risk for falls Improve ABC scale to at least 30% as measure of improved confidence in her mobility LTG Duration 03/09/22 Progress Towards Goals Progress Towards Goals Progressing Toward Goals Assessment Summary Assessment Pt experienced increased LOB with walking activities due to extra floatation on LEs. Post traction and AquaStretch pt reported increased sensation in both feet and her balance improved somewhat. In deep water she is sucessful at positioning herself in various positions more quickly than previous sessions. Had slightly more difficulty with rock and roll exercise which was performed at the end of the session. Pt improving on balance board also. She is improving with aquatic therapy and will continue to benefit from it for mobility, strength , balance, and flexibility. Physical Therapy Plan Frequency and Duration Frequency of Treatment 1x/Week Duration of treatment (weeks) 8 Plan of Care Start Date 01/14/22 Plan of Care End Date 03/16/22 Therapeutic Interventions Therapeutic Interventions Aquatic Therapy,Balance Training,Home Exercise Program ,Neuromuscular Re-education, Patient/Caregiver Education, Self-Care/Home Management, Therapeutic Activities, Therapeutic Exercises Next Visit Focus/Plan Next Note Type Treatment Note Next Visit Plan Continue with POC to address deficits with strength, gait, balance, and safe mobility.
--- NOTE | 2022-01-28 14:26 | PT.OTN ---
Current Diagnoses Multiple sclerosis (01/21/22) Paraplegia, incomplete (01/21/22) Physical Therapy Treatment Note PT-OP-A Visit Information Start: 05/20/21 17:44 Freq: Status: Active Protocol: Document 01/28/22 14:16 NANCY (Rec: 01/28/22 14:25 LJ [id number]) Out-Patient Physical Therapy Visit Information Visit Information Visit Type Aquatic Treatment Note Visit Start Time 11:45 Visit Stop Time 12:30 Total Visit Minutes 45 Visit Number 16 Number of MARINE SUPERINTENDENT Visits 4 Evaluation Information Evaluation Date 05/21/21 Precautions Precautions esophageal stenosis negative response to overheating HTN related to medications, being weaned off and will start a new medication PT-OP-B Current Condition Start: 05/20/21 17:44 Freq: Status: Active Protocol: Document 05/21/21 14:32 SAK (Rec: 05/21/21 15:20 SAK [id number]) Current Condition History of Current Condition Onset Date 2 years Current Complaints MS with LE weakness right greater than left History of Current Condition Patient previously did land- based PT for MS. Now referred for aquatic PT. Main c/o are LE weakness, difficulty ambulating; 120' max with Fww needs w/c behind in case LE's give way, and balance difficulty. Doing HEP fairly consistently but not as much as I should. Lives in downstairs apartment, Aunt lives above and comes down to assist with exercises. Patient able to do most self- care by herself with some set- up assist from Aunt. Also c/ o tightness in LE's especially quads as well as cramping and right foot going out to the side with gait. Can't feel where her feet are due to loss of sensation in LE's. Fell 1x this month from sitting while reaching. Was able to transfer back to chair. Only walks when has help. Prior Treatments and Tests Land-based PT Future Testing and Treatments Planned none at this time. 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 Hobbies Unable to access the stage or green room with w/c. Personal Factors Other Personal Factors That May Effect assisted to appointments by Therapy/Recovery aunt PT-OP-C Subjective Start: 05/20/21 17:44 Freq: Status: Active Protocol: Document 01/28/22 14:16 LJ (Rec: 01/28/22 14:25 LJ [id number]) OP-PT Subjective Patient Comments Patient Comments Pt states LE stretching last session felt good and would like to do it again. PT-OP-D Balance Start: 05/20/21 17:44 Freq: Status: Active Protocol: Document 05/21/21 14:32 [facility] (Rec: 05/21/21 17:31 SAK [id number]) Tinetti Balance Assessment Sitting Balance Sitting Balance Steady, safe Arising from Chair Ability to Arise Able, w/o using arms Standing Balance Immediate Standing Balance Steady with support Standing Balance Unsteady Nudged Response Begins to fall Standing with Eyes Closed Unsteady Turning Step Pattern Turning 360 Degrees Discontinuous steps Stability Turning 360 Degrees Unsteady, grabs/staggers Sitting Down Sitting Down Uses arms or unsteady Gait and Step Initiation of Gait Hesitancy, mult. attempts Right Foot Step Length Does not pass stance ft. Right Foot Step Height Does not clear floor Left Foot Step Length Does not pass stance foot Left Foot Step Height Does not clear floor Step Description Step Symmetry Step length appears equal Step Continuity Steps appear continuous Gait Description Path Description Mild/moderate deviation Trunk Description Marked sway or uses aide Walking Stance Heels apart Scoring and Interpretation Tinetti Composite Score (points) 8 PT-OP-G Mobility & Gait Start: 05/20/21 17:44 Freq: Status: Active Protocol: Document 05/21/21 14:32 [facility] (Rec: 05/21/21 17:31 [facility] [id number]) OP Mobility Evaluation Bed Mobility Rolling indep Supine to and from Sit indep Transfers Sit to Stand indep Bed to Chair Transfers indep Floor Transfers variable, most recentlky after fall was able to transfer back into w/c Wheelchair Management Type of Wheelchair manual Assessment Details Patient didn't bring own chair to PT today OP Gait Assessment Gait Gait Assistance Required: Standby Assistance Distance (Feet) 63 Assistive Devices Assistive Device Front Wheeled Walker Orthotic/Prosthetic Devices or Brace: No Gait Deviations General Gait Pattern Decreased Feet Clearance Factors Limiting Gait Function Factors Limiting Gait Function Abnormal Tonal Influences, Decreased Strength,Poor Balance Stair Climbing Evaluation Comments Stair Climbing Comments patient unable PT-OP-H Neuro Start: 05/20/21 17:44 Freq: Status: Active Protocol: Document 05/21/21 14:32 SAK (Rec: 05/21/21 17:31 SAK [id number]) Sensation Evaluation Gross Sensation Gross Sensation Left LE Impaired,Right LE Impaired Sensation Description Paresthesia Comments Summary Comments poor proprioception bilateral LE's; patient reports some better when walks barefoot at home, but has difficulty knowing where her feet are in space. Coordination Evaluation Comments Coordination Comments decreased speed and accuracy of movement bilateral LE's right greater than left PT-OP-M Strength Start: 05/20/21 17:44 Freq: Status: Active Protocol: Document 05/21/21 14:32 SAK (Rec: 05/21/21 17:31 SAK [id number]) Hip Strength Hip Manual Muscle Testing Left Flexion (L2) 4 Good Extension (S1) 4- Good- Abduction 4- Good- Adduction 4 Good External Rotation 4- Good- Internal Rotation 4- Good- Right Flexion (L2) 4- Good- Extension (S1) 3+ Fair+ Abduction 3+ Fair+ Adduction 4- Good- External Rotation 3+ Fair+ Internal Rotation 4- Good- Knee Strength Knee Manual Muscle Testing Left Flexion (S2) 4+ Good+ Extension (L3) 4 Good Right Flexion (S2) 4 Good Extension (L3) 4- Good- Ankle/Foot Strength Ankle and Foot Manual Muscle Testing Left Dorsiflexion (L4) 4 Good Plantarflexion (S1) 4+ Good+ Inversion 4 Good Eversion (S1) 4+ Good+ Right Dorsiflexion (L4) 4- Good- Plantarflexion (S1) 4 Good Inversion 3+ Fair+ Eversion (S1) 4- Good- PT-OP-Q Treatments Start: 05/20/21 17:44 Freq: Status: Active Protocol: Document 05/21/21 14:32 SAK (Rec: 05/21/21 17:31 SAK [id number]) Self-Care/Home Management Treatment Education Patient Education Fall Risk,Home Exercise Program,Safety Other Education Discussion of aquatic therapy, benefits, logistics and preparation PT-OP-S Aquatic Treatment Start: 05/20/21 17:44 Freq: Status: Active Protocol: Document 01/28/22 14:16 LJ (Rec: 01/28/22 14:25 LJ [id number]) Aquatics Treatment Pool Entry/Exit Pool Entry/Exit Method Lift Assistance Standby Assistance Water Walking Lunge Walk Water Level Waist Level Level of Assistance Standby Assistance straight leg may Water Level Chest Level Level of Assistance Standby Assistance may kick Water Level Chest Level Level of Assistance Standby Assistance Comments UEs for balance March Water Level Chest Level Level of Assistance Standby Assistance Sideways Water Level Chest Level Level of Assistance Standby Assistance Comments lg step for stretch forward Water Level Chest Level Level of Assistance Standby Assistance Spinal Exercises tiltboard sit Details EO and EC, hand out of water Reps/Duration 2 min [place] Activities [place] Activities Bicycle,Bicycle Backwards, Cross Country,Hip Abduction/ Adduction Equipment noodle Duration 10 Manual Techniques Aquatic Manual Traction [employer] with AquaStretch with bilateral hips for stretching all directions Aquatic Massage LEs, piriformis, feet PT-OP-T Assessment and Plan Start: 05/20/21 17:44 Freq: Status: Active Protocol: Document 01/28/22 14:16 NANCY (Rec: 01/28/22 14:25 [id number]) Physical Therapy Assessment Rehab Potential Rehabilitation Potential Good Evaluation Complexity Number of Personal Factors/Comorbidities 1-2 Number of Body Systems Impaired 3 Clinical Presentation at Evaluation Evolving Impairments Impairments Balance,Gait,Strength Goals Four Impairment LE weakness Impairment 5x sit to stand test 17 sec 10/15/21: improved to 15 sec with slight dec use of hands 12/08/21: unable to assess today due to session in pool, reporting more difficulty with increased need to use hands [facility] Goal (LTG) Improve 5x sit to stand test to no greater than 12 sec as measure of improved functional LE strength LTG Duration 03/09/22 Three Impairment no current aquatic exercise [facility] Goal (LTG) Patient will be safe and independent with a progressive aquatic exercise program addressing LE strengthening, gait and balance. 10/15/21: Continue to progress aquatic exercise program, she is now able to walk with SBA ( vs mod assist when first started aquatic PT) in chest level water, increased assist with decreased depth of water. Decreased LOB incidence noted. 12/08/21: improving aquatic exercise tolerance, prior to break in aquatic PT had been tolerating gentle progression of activities well 01/14/22: Good progress with aquatic exercise program with improved safety and comfort level. LTG Duration 03/09/22 One Impairment lack of independence with her walking in her home [facility] Goal (LTG) Patient will be able to ambulate safely for short distance ambulation in her home independently to improve her independence and quality of life. 10/15/21: Able to ambulate very short distances for transfers , improved 12/08/21: Has improved to 60 ft . pt goal of gait 110 ft with FWW without legs giving way. 01/14/22: No further progression per small house; patient reports she will attempt further LTG Duration 03/09/22 Two Impairment Decreased gait and balance ability Impairment Tinetti gait and balance assessment 8 indicating patient at high risk for falls 10/15/21: unable to retest as at pool today, patient reporting improved balance in sitting when reaching for objects, uncertain standing as using walker and very short distances Activities-specific Balance Confidence (ABC) scale 14% 12/08/21: again unable to assess as at pool but now able to stand on 1 foot in shallow water without UE support max 10 sec right and 7 sec left ( previously unable without UE support) 01/14/22: SLS 10 sec chelle in chest level water [facility] Goal (LTG) Improve Tinetti gait and balance score to at least 15/ 28 to decrease patient risk for falls Improve ABC scale to at least 30% as measure of improved confidence in her mobility LTG Duration 03/09/22 Progress Towards Goals Progress Towards Goals Progressing Toward Goals Assessment Summary Assessment Pt did not experience any LOB episodes this session. Main focus on massage, traction, and AquaStretch techniques for LEs to address tight hip flexors, hamstrings, calves, and piriformis muscles. Pt again experienced increased sensation post AquaStretch. Physical Therapy Plan Frequency and Duration Frequency of Treatment 1x/Week Duration of treatment (weeks) 8 Plan of Care Start Date 01/14/22 Plan of Care End Date 03/16/22 Therapeutic Interventions Therapeutic Interventions Aquatic Therapy,Balance Training,Home Exercise Program ,Neuromuscular Re-education, Patient/Caregiver Education, Self-Care/Home Management, Therapeutic Activities, Therapeutic Exercises Next Visit Focus/Plan Next Note Type Treatment Note Next Visit Plan Continue with POC to address deficits with strength, gait, balance, and safe mobility.
--- NOTE | 2022-02-04 15:40 | PT.OTN ---
Current Diagnoses Multiple sclerosis (02/04/22) Paraplegia, incomplete (02/04/22) Physical Therapy Treatment Note PT-OP-A Visit Information Start: 05/20/21 17:44 Freq: Status: Active Protocol: Document 02/04/22 15:27 NANCY (Rec: 02/04/22 15:40 LJ [id number]) Out-Patient Physical Therapy Visit Information Visit Information Visit Type Aquatic Treatment Note Visit Start Time 11:45 Visit Stop Time 12:30 Total Visit Minutes 45 Visit Number 17 Number of HOSPITAL MONITOR Visits 5 Evaluation Information Evaluation Date 05/21/21 Precautions Precautions esophageal stenosis negative response to overheating HTN related to medications, being weaned off and will start a new medication PT-OP-B Current Condition Start: 05/20/21 17:44 Freq: Status: Active Protocol: Document 05/21/21 14:32 SAK (Rec: 05/21/21 15:20 SAK [id number]) Current Condition History of Current Condition Onset Date 2 years Current Complaints MS with LE weakness right greater than left History of Current Condition Patient previously did land- based PT for MS. Now referred for aquatic PT. Main c/o are LE weakness, difficulty ambulating; 120' max with Fww needs w/c behind in case LE's give way, and balance difficulty. Doing HEP fairly consistently but not as much as I should. Lives in downstairs apartment, Aunt lives above and comes down to assist with exercises. Patient able to do most self- care by herself with some set- up assist from Aunt. Also c/ o tightness in LE's especially quads as well as cramping and right foot going out to the side with gait. Can't feel where her feet are due to loss of sensation in LE's. Fell 1x this month from sitting while reaching. Was able to transfer back to chair. Only walks when has help. Prior Treatments and Tests Land-based PT Future Testing and Treatments Planned none at this time. 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 Hobbies Unable to access the stage or green room with w/c. Personal Factors Other Personal Factors That May Effect assisted to appointments by Therapy/Recovery aunt PT-OP-C Subjective Start: 05/20/21 17:44 Freq: Status: Active Protocol: Document 02/04/22 15:27 LJ (Rec: 02/04/22 15:40 LJ [id number]) OP-PT Subjective Patient Comments Patient Comments Pt reports she was able to walk 1.5 times farther than usual yesterday. Limited by UE fatigue as she holds her weight up with her UEs and has limited WB with LEs. PT-OP-D Balance Start: 05/20/21 17:44 Freq: Status: Active Protocol: Document 05/21/21 14:32 SAK (Rec: 05/21/21 17:31 SAK [id number]) Tinetti Balance Assessment Sitting Balance Sitting Balance Steady, safe Arising from Chair Ability to Arise Able, w/o using arms Standing Balance Immediate Standing Balance Steady with support Standing Balance Unsteady Nudged Response Begins to fall Standing with Eyes Closed Unsteady Turning Step Pattern Turning 360 Degrees Discontinuous steps Stability Turning 360 Degrees Unsteady, grabs/staggers Sitting Down Sitting Down Uses arms or unsteady Gait and Step Initiation of Gait Hesitancy, mult. attempts Right Foot Step Length Does not pass stance ft. Right Foot Step Height Does not clear floor Left Foot Step Length Does not pass stance foot Left Foot Step Height Does not clear floor Step Description Step Symmetry Step length appears equal Step Continuity Steps appear continuous Gait Description Path Description Mild/moderate deviation Trunk Description Marked sway or uses aide Walking Stance Heels apart Scoring and Interpretation Tinetti Composite Score (points) 8 PT-OP-G Mobility & Gait Start: 05/20/21 17:44 Freq: Status: Active Protocol: Document 05/21/21 14:32 SAK (Rec: 05/21/21 17:31 SAK [id number]) OP Mobility Evaluation Bed Mobility Rolling indep Supine to and from Sit indep Transfers Sit to Stand indep Bed to Chair Transfers indep Floor Transfers variable, most recentlky after fall was able to transfer back into w/c Wheelchair Management Type of Wheelchair manual Assessment Details Patient didn't bring own chair to PT today OP Gait Assessment Gait Gait Assistance Required: Standby Assistance Distance (Feet) 63 Assistive Devices Assistive Device Front Wheeled Walker Orthotic/Prosthetic Devices or Brace: No Gait Deviations General Gait Pattern Decreased Feet Clearance Factors Limiting Gait Function Factors Limiting Gait Function Abnormal Tonal Influences, Decreased Strength,Poor Balance Stair Climbing Evaluation Comments Stair Climbing Comments patient unable PT-OP-H Neuro Start: 05/20/21 17:44 Freq: Status: Active Protocol: Document 05/21/21 14:32 [facility] (Rec: 05/21/21 17:31 [facility] [id number]) Sensation Evaluation Gross Sensation Gross Sensation Left LE Impaired,Right LE Impaired Sensation Description Paresthesia Comments Summary Comments poor proprioception bilateral LE's; patient reports some better when walks barefoot at home, but has difficulty knowing where her feet are in space. Coordination Evaluation Comments Coordination Comments decreased speed and accuracy of movement bilateral LE's right greater than left PT-OP-M Strength Start: 05/20/21 17:44 Freq: Status: Active Protocol: Document 05/21/21 14:32 [facility] (Rec: 05/21/21 17:31 [facility] [id number]) Hip Strength Hip Manual Muscle Testing Left Flexion (L2) 4 Good Extension (S1) 4- Good- Abduction 4- Good- Adduction 4 Good External Rotation 4- Good- Internal Rotation 4- Good- Right Flexion (L2) 4- Good- Extension (S1) 3+ Fair+ Abduction 3+ Fair+ Adduction 4- Good- External Rotation 3+ Fair+ Internal Rotation 4- Good- Knee Strength Knee Manual Muscle Testing Left Flexion (S2) 4+ Good+ Extension (L3) 4 Good Right Flexion (S2) 4 Good Extension (L3) 4- Good- Ankle/Foot Strength Ankle and Foot Manual Muscle Testing Left Dorsiflexion (L4) 4 Good Plantarflexion (S1) 4+ Good+ Inversion 4 Good Eversion (S1) 4+ Good+ Right Dorsiflexion (L4) 4- Good- Plantarflexion (S1) 4 Good Inversion 3+ Fair+ Eversion (S1) 4- Good- PT-OP-Q Treatments Start: 05/20/21 17:44 Freq: Status: Active Protocol: Document 05/21/21 14:32 [facility] (Rec: 05/21/21 17:31 [facility] [id number]) Self-Care/Home Management Treatment Education Patient Education Fall Risk,Home Exercise Program,Safety Other Education Discussion of aquatic therapy, benefits, logistics and preparation PT-OP-S Aquatic Treatment Start: 05/20/21 17:44 Freq: Status: Active Protocol: Document 02/04/22 15:27 (Rec: 02/04/22 15:40 [id number]) Aquatics Treatment Pool Entry/Exit Pool Entry/Exit Method Lift Assistance Standby Assistance Water Walking [place] Water Level Chest Level Tandem Gait Water Level Chest Level Comments Several LOB Lunge Walk Water Level Waist Level directional changes Water Level Chest Level Level of Assistance Verbal Cues Comments UEs for balance stop start Water Level Chest Level Comments UEs for assist in changing directions Marching Water Level Chest Level Sideways Water Level Chest Level Level of Assistance Standby Assistance Comments lg step for stretch Backwards Water Level Chest Level forward Water Level Chest Level Lower Extremity Exercises step-ups Details red boxes 8 Body Position Standing Water Level Chest Level Reps/Duration 8x Comments forward 4 joselin hip Body Position Standing Water Level Chest Level Reps/Duration 10x ea Lower Extremity Stretches adductors Body Position Standing Reps/Duration 2x45 B piriformis Details at wall Body Position Sitting Reps/Duration 2x45 hip flexor, quads, HS, gastroc Details hh on wall Body Position Standing Water Level Chest Level Reps/Duration 30 x 2 B Comments therapist assist Upper Extremity Exercises HAB, HAD, B pull down Details at wall Body Position Standing Water Level Neck Level Equipment small barbells Reps/Duration 10 ea Comments emphasis core stability Spinal Exercises tiltboard sit Details EO and EC, hand out of water Reps/Duration 3 min [place] Activities [place] Activities Bicycle,Bicycle Backwards, Cross [place],Hip Abduction/ Adduction Other Activities L sit flutter kick pendulum-full and half prone, sidelying planks Equipment Lg belt, med BBs Duration 10 PT-OP-T Assessment and Plan Start: 05/20/21 17:44 Freq: Status: Active Protocol: Document 02/04/22 15:27 (Rec: 02/04/22 15:40 [id number]) Physical Therapy Assessment Rehab Potential Rehabilitation Potential Good Evaluation Complexity Number of Personal Factors/Comorbidities 1-2 Number of Body Systems Impaired 3 Clinical Presentation at Evaluation Evolving Impairments Impairments Balance,Gait,Strength Goals Four Impairment LE weakness Impairment 5x sit to stand test 17 sec 10/15/21: improved to 15 sec with slight dec use of hands 12/08/21: unable to assess today due to session in pool, reporting more difficulty with increased need to use hands Learning Disabilities Teacher Goal (LTG) Improve 5x sit to stand test to no greater than 12 sec as measure of improved functional LE strength LTG Duration 03/09/22 Three Impairment no current aquatic exercise Mcfp Goal (LTG) Patient will be safe and independent with a progressive aquatic exercise program addressing LE strengthening, gait and balance. 10/15/21: Continue to progress aquatic exercise program, she is now able to walk with SBA ( vs mod assist when first started aquatic PT) in chest level water, increased assist with decreased depth of water. Decreased LOB incidence noted. 12/08/21: improving aquatic exercise tolerance, prior to break in aquatic PT had been tolerating gentle progression of activities well 01/14/22: Good progress with aquatic exercise program with improved safety and comfort level. LTG Duration 03/09/22 One Impairment lack of independence with her walking in her home Learning Disabilities Teacher Goal (LTG) Patient will be able to ambulate safely for short distance ambulation in her home independently to improve her independence and quality of life. 10/15/21: Able to ambulate very short distances for transfers , improved 12/08/21: Has improved to 60 ft . pt goal of gait 110 ft with FWW without legs giving way. 01/14/22: No further progression per small house; patient reports she will attempt further LTG Duration 03/09/22 Two Impairment Decreased gait and balance ability Impairment Tinetti gait and balance assessment 11/16 indicating patient at high risk for falls 10/15/21: unable to retest as at pool today, patient reporting improved balance in sitting when reaching for objects, uncertain standing as using walker and very short distances Activities-specific Balance Confidence (ABC) scale 14% 12/08/21: again unable to assess as at pool but now able to stand on 1 foot in shallow water without UE support max 10 sec right and 7 sec left ( previously unable without UE support) 01/14/22: SLS 10 sec chelle in chest level water Mcfp Goal (LTG) Improve Tinetti gait and balance score to at least 15/ 28 to decrease patient risk for falls Improve ABC scale to at least 30% as measure of improved confidence in her mobility LTG Duration 03/09/22 Progress Towards Goals Progress Towards Goals Progressing Toward Goals Assessment Summary Assessment Pt had several LOB with more challenging gait exercises. Improved performance with sitting on wonderboard. Pt had increased difficulty with step up on boxes with shallower depth but overall had success with the majority of step ups/down with better control with descent Physical Therapy Plan Frequency and Duration Frequency of Treatment 1x/Week Duration of treatment (weeks) 8 Plan of Care Start Date 01/14/22 Plan of Care End Date 03/16/22 Therapeutic Interventions Therapeutic Interventions Aquatic Therapy,Balance Training,Home Exercise Program ,Neuromuscular Re-education, Patient/Caregiver Education, Self-Care/Home Management, Therapeutic Activities, Therapeutic Exercises Next Visit Focus/Plan Next Note Type Treatment Note Next Visit Plan Continue with POC to address deficits with strength, gait, balance, and safe mobility.
--- NOTE | 2022-02-11 17:23 | PT.OTN ---
Current Diagnoses Multiple sclerosis (02/11/22) Paraplegia, incomplete (02/11/22) Physical Therapy Treatment Note PT-OP-A Visit Information Start: 05/20/21 17:44 Freq: Status: Active Protocol: Document 02/11/22 17:17 [facility] (Rec: 02/11/22 17:23 [facility] [id number]) Out-Patient Physical Therapy Visit Information Visit Information Visit Type Aquatic Treatment Note Visit Start Time 11:45 Visit Stop Time 12:30 Total Visit Minutes 45 Visit Number 18 Number of VARNISHING MACHINE OPERATOR Visits 0 Evaluation Information Evaluation Date 05/21/21 Precautions Precautions esophageal stenosis negative response to overheating HTN related to medications, being weaned off and will start a new medication PT-OP-B Current Condition Start: 05/20/21 17:44 Freq: Status: Active Protocol: Document 05/21/21 14:32 [facility] (Rec: 05/21/21 15:20 [facility] [id number]) Current Condition History of Current Condition Onset Date 2 years Current Complaints MS with LE weakness right greater than left History of Current Condition Patient previously did land- based PT for MS. Now referred for aquatic PT. Main c/o are LE weakness, difficulty ambulating; 120' max with Fww needs w/c behind in case LE's give way, and balance difficulty. Doing HEP fairly consistently but not as much as I should. Lives in downstairs apartment, Aunt lives above and comes down to assist with exercises. Patient able to do most self- care by herself with some set- up assist from Aunt. Also c/ o tightness in LE's especially quads as well as cramping and right foot going out to the side with gait. Can't feel where her feet are due to loss of sensation in LE's. Fell 1x this month from sitting while reaching. Was able to transfer back to chair. Only walks when has help. Prior Treatments and Tests Land-based PT Future Testing and Treatments Planned none at this time. 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 Hobbies Unable to access the stage or green room with w/c. Personal Factors Other Personal Factors That May Effect assisted to appointments by Therapy/Recovery aunt PT-OP-C Subjective Start: 05/20/21 17:44 Freq: Status: Active Protocol: Document 02/11/22 17:17 [facility] (Rec: 02/11/22 17:23 [facility] [id number]) OP-PT Subjective Patient Comments Patient Comments Patient states her breathing is more difficult recently and she will have to have the procedure for her through done again (q6-9 months). Trying to stand and walk more at home . Aquatic therapy helpful. PT-OP-D Balance Start: 05/20/21 17:44 Freq: Status: Active Protocol: Document 05/21/21 14:32 [facility] (Rec: 05/21/21 17:31 [facility] [id number]) Tinetti Balance Assessment Sitting Balance Sitting Balance Steady, safe Arising from Chair Ability to Arise Able, w/o using arms Standing Balance Immediate Standing Balance Steady with support Standing Balance Unsteady Nudged Response Begins to fall Standing with Eyes Closed Unsteady Turning Step Pattern Turning 360 Degrees Discontinuous steps Stability Turning 360 Degrees Unsteady, grabs/staggers Sitting Down Sitting Down Uses arms or unsteady Gait and Step Initiation of Gait Hesitancy, mult. attempts Right Foot Step Length Does not pass stance ft. Right Foot Step Height Does not clear floor Left Foot Step Length Does not pass stance foot Left Foot Step Height Does not clear floor Step Description Step Symmetry Step length appears equal Step Continuity Steps appear continuous Gait Description Path Description Mild/moderate deviation Trunk Description Marked sway or uses aide Walking Stance Heels apart Scoring and Interpretation Tinetti Composite Score (points) 8 PT-OP-G Mobility & Gait Start: 05/20/21 17:44 Freq: Status: Active Protocol: Document 05/21/21 14:32 [facility] (Rec: 05/21/21 17:31 [facility] [id number]) OP Mobility Evaluation Bed Mobility Rolling indep Supine to and from Sit indep Transfers Sit to Stand indep Bed to Chair Transfers indep Floor Transfers variable, most recentlky after fall was able to transfer back into w/c Wheelchair Management Type of Wheelchair manual Assessment Details Patient didn't bring own chair to PT today OP Gait Assessment Gait Gait Assistance Required: Standby Assistance Distance (Feet) 63 Assistive Devices Assistive Device Front Wheeled Walker Orthotic/Prosthetic Devices or Brace: No Gait Deviations General Gait Pattern Decreased Feet Clearance Factors Limiting Gait Function Factors Limiting Gait Function Abnormal Tonal Influences, Decreased Strength,Poor Balance Stair Climbing Evaluation Comments Stair Climbing Comments patient unable PT-OP-H Neuro Start: 05/20/21 17:44 Freq: Status: Active Protocol: Document 05/21/21 14:32 [facility] (Rec: 05/21/21 17:31 [facility] [id number]) Sensation Evaluation Gross Sensation Gross Sensation Left LE Impaired,Right LE Impaired Sensation Description Paresthesia Comments Summary Comments poor proprioception bilateral LE's; patient reports some better when walks barefoot at home, but has difficulty knowing where her feet are in space. Coordination Evaluation Comments Coordination Comments decreased speed and accuracy of movement bilateral LE's right greater than left PT-OP-M Strength Start: 05/20/21 17:44 Freq: Status: Active Protocol: Document 05/21/21 14:32 [facility] (Rec: 05/21/21 17:31 [facility] [id number]) Hip Strength Hip Manual Muscle Testing Left Flexion (L2) 4 Good Extension (S1) 4- Good- Abduction 4- Good- Adduction 4 Good External Rotation 4- Good- Internal Rotation 4- Good- Right Flexion (L2) 4- Good- Extension (S1) 3+ Fair+ Abduction 3+ Fair+ Adduction 4- Good- External Rotation 3+ Fair+ Internal Rotation 4- Good- Knee Strength Knee Manual Muscle Testing Left Flexion (S2) 4+ Good+ Extension (L3) 4 Good Right Flexion (S2) 4 Good Extension (L3) 4- Good- Ankle/Foot Strength Ankle and Foot Manual Muscle Testing Left Dorsiflexion (L4) 4 Good Plantarflexion (S1) 4+ Good+ Inversion 4 Good Eversion (S1) 4+ Good+ Right Dorsiflexion (L4) 4- Good- Plantarflexion (S1) 4 Good Inversion 3+ Fair+ Eversion (S1) 4- Good- PT-OP-Q Treatments Start: 05/20/21 17:44 Freq: Status: Active Protocol: Document 05/21/21 14:32 [facility] (Rec: 05/21/21 17:31 [facility] [id number]) Self-Care/Home Management Treatment Education Patient Education Fall Risk,Home Exercise Program,Safety Other Education Discussion of aquatic therapy, benefits, logistics and preparation PT-OP-S Aquatic Treatment Start: 05/20/21 17:44 Freq: Status: Active Protocol: Document 02/11/22 17:17 [facility] (Rec: 02/11/22 17:23 [facility] [id number]) Aquatics Treatment Pool Entry/Exit Pool Entry/Exit Method Lift Assistance Standby Assistance Water Walking straight leg march Water Level Chest Level Level of Assistance Standby Assistance,Verbal Cues may kick Water Level Chest Level Level of Assistance Standby Assistance,Verbal Cues Comments UEs for balance stop start Water Level Chest Level Comments UEs for assist in changing directions Marching Water Level Chest Level Level of Assistance Standby Assistance,Verbal Cues Sideways Water Level Chest Level Level of Assistance Standby Assistance,Verbal Cues Comments lg step for stretch Backwards Water Level Chest Level Level of Assistance Standby Assistance,Verbal Cues Lower Extremity Stretches adductors Body Position Standing Water Level [place] Equipment wall Reps/Duration 2x45 B piriformis Details at wall Body Position Sitting Reps/Duration 2x45 Upper Extremity Exercises HAB, HAD, B pull down Details at wall Body Position Standing Water Level Neck Level Equipment small barbells Reps/Duration 10 ea Comments emphasis core stability [place] Activities [place] Activities Bicycle,Bicycle Backwards, Cross Country,Hip Abduction/ Adduction Other Activities L sit flutter kick pendulum-full and half prone, sidelying planks Equipment Lg belt, med BBs Duration 12 PT-OP-T Assessment and Plan Start: 05/20/21 17:44 Freq: Status: Active Protocol: Document 02/11/22 17:17 [facility] (Rec: 02/11/22 17:23 [facility] [id number]) Physical Therapy Assessment Impairments Impairments Balance,Gait,Strength Goals Four Impairment LE weakness Impairment 5x sit to stand test 17 sec 10/15/21: improved to 15 sec with slight dec use of hands 12/08/21: unable to assess today due to session in pool, reporting more difficulty with increased need to use hands Asphalt Roller Operator Goal (LTG) Improve 5x sit to stand test to no greater than 12 sec as measure of improved functional LE strength LTG Duration 03/09/22 Three Impairment no current aquatic exercise [facility]ci Goal (LTG) Patient will be safe and independent with a progressive aquatic exercise program addressing LE strengthening, gait and balance. 10/15/21: Continue to progress aquatic exercise program, she is now able to walk with SBA ( vs mod assist when first started aquatic PT) in chest level water, increased assist with decreased depth of water. Decreased LOB incidence noted. 12/08/21: improving aquatic exercise tolerance, prior to break in aquatic PT had been tolerating gentle progression of activities well 01/14/22: Good progress with aquatic exercise program with improved safety and comfort level. LTG Duration 03/09/22 One Impairment lack of independence with her walking in her home Asphalt Roller Operator Goal (LTG) Patient will be able to ambulate safely for short distance ambulation in her home independently to improve her independence and quality of life. 10/15/21: Able to ambulate very short distances for transfers , improved 12/08/21: Has improved to 60 ft . pt goal of gait 110 ft with FWW without legs giving way. 01/14/22: No further progression per small house; patient reports she will attempt further LTG Duration 03/09/22 Two Impairment Decreased gait and balance ability Impairment Tinetti gait and balance assessment 8 indicating patient at high risk for falls 10/15/21: unable to retest as at pool today, patient reporting improved balance in sitting when reaching for objects, uncertain standing as using walker and very short distances Activities-specific Balance Confidence (ABC) scale 14% 12/08/21: again unable to assess as at pool but now able to stand on 1 foot in shallow water without UE support max 10 sec right and 7 sec left ( previously unable without UE support) 01/14/22: SLS 10 sec chelle in chest level water Asphalt Roller Operator Goal (LTG) Improve Tinetti gait and balance score to at least 15/ 28 to decrease patient risk for falls Improve ABC scale to at least 30% as measure of improved confidence in her mobility LTG Duration 03/09/22 Progress Towards Goals Progress Towards Goals Progressing Toward Goals Assessment Summary Assessment Increased breathing difficulty requiring more rest breaks, decreased intensity with deep water exercises today. Physical Therapy Plan Frequency and Duration Frequency of Treatment 1x/Week Duration of treatment (weeks) 8 Plan of Care Start Date 01/14/22 Plan of Care End Date 03/16/22 Therapeutic Interventions Therapeutic Interventions Aquatic Therapy,Balance Training,Home Exercise Program ,Neuromuscular Re-education, Patient/Caregiver Education, Self-Care/Home Management, Therapeutic Activities, Therapeutic Exercises Next Visit Focus/Plan Next Note Type Treatment Note Next Visit Plan Continue with POC to address deficits with strength, gait, balance, and safe mobility.
--- NOTE | 2022-03-11 09:27 | PT-OP ANOTE ---
cancelled due to weather
--- NOTE | 2022-03-18 16:52 | PT.OTN ---
Current Diagnoses Multiple sclerosis (03/18/22) Paraplegia, incomplete (03/18/22) Physical Therapy Treatment Note PT-OP-A Visit Information Start: 05/20/21 17:44 Freq: Status: Active Protocol: Document 03/18/22 15:12 [facility] (Rec: 03/18/22 16:51 [facility] [id number]) Out-Patient Physical Therapy Visit Information Visit Information Visit Type Re-Evaluation Visit Start Time 15:13 Visit Stop Time 15:57 Total Visit Minutes 44 Visit Number 19 Number of LIBRARY CLERICAL ASSISTANT Visits 0 Evaluation Information Evaluation Date 05/21/21 Precautions Precautions esophageal stenosis negative response to overheating HTN related to medications, being weaned off and will start a new medication PT-OP-B Current Condition Start: 05/20/21 17:44 Freq: Status: Active Protocol: Document 05/21/21 14:32 [facility] (Rec: 05/21/21 15:20 [facility] [id number]) Current Condition History of Current Condition Onset Date 2 years Current Complaints MS with LE weakness right greater than left History of Current Condition Patient previously did land- based PT for MS. Now referred for aquatic PT. Main c/o are LE weakness, difficulty ambulating; 120' max with Fww needs w/c behind in case LE's give way, and balance difficulty. Doing HEP fairly consistently but not as much as I should. Lives in downstairs apartment, Aunt lives above and comes down to assist with exercises. Patient able to do most self- care by herself with some set- up assist from Aunt. Also c/ o tightness in LE's especially quads as well as cramping and right foot going out to the side with gait. Can't feel where her feet are due to loss of sensation in LE's. Fell 1x this month from sitting while reaching. Was able to transfer back to chair. Only walks when has help. Prior Treatments and Tests Land-based PT Future Testing and Treatments Planned none at this time. 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 Hobbies Unable to access the stage or green room with w/c. Personal Factors Other Personal Factors That May Effect assisted to appointments by Therapy/Recovery aunt PT-OP-C Subjective Start: 05/20/21 17:44 Freq: Status: Active Protocol: Document 03/18/22 15:12 [facility] (Rec: 03/18/22 16:51 [facility] [id number]) OP-PT Subjective Patient Comments Patient Comments Seeing doctor tomorrow about her esophagus. Aquatic therapy discontinued, will be trying to do private lessons or go independently. Interested in land-based PT for balance, UE strengthening. Trying to walk every day with FWW, knees have bobbled occasionally but not buckled. Trying to increase distance walked. PT-OP-D Balance Start: 05/20/21 17:44 Freq: Status: Active Protocol: Document 05/21/21 14:32 [facility] (Rec: 05/21/21 17:31 [facility] [id number]) Tinetti Balance Assessment Sitting Balance Sitting Balance Steady, safe Arising from Chair Ability to Arise Able, w/o using arms Standing Balance Immediate Standing Balance Steady with support Standing Balance Unsteady Nudged Response Begins to fall Standing with Eyes Closed Unsteady Turning Step Pattern Turning 360 Degrees Discontinuous steps Stability Turning 360 Degrees Unsteady, grabs/staggers Sitting Down Sitting Down Uses arms or unsteady Gait and Step Initiation of Gait Hesitancy, mult. attempts Right Foot Step Length Does not pass stance ft. Right Foot Step Height Does not clear floor Left Foot Step Length Does not pass stance foot Left Foot Step Height Does not clear floor Step Description Step Symmetry Step length appears equal Step Continuity Steps appear continuous Gait Description Path Description Mild/moderate deviation Trunk Description Marked sway or uses aide Walking Stance Heels apart Scoring and Interpretation Tinetti Composite Score (points) 8 PT-OP-G Mobility & Gait Start: 05/20/21 17:44 Freq: Status: Active Protocol: Document 05/21/21 14:32 [facility] (Rec: 05/21/21 17:31 [facility] [id number]) OP Mobility Evaluation Bed Mobility Rolling indep Supine to and from Sit indep Transfers Sit to Stand indep Bed to Chair Transfers indep Floor Transfers variable, most recentlky after fall was able to transfer back into w/c Wheelchair Management Type of Wheelchair manual Assessment Details Patient didn't bring own chair to PT today OP Gait Assessment Gait Gait Assistance Required: Standby Assistance Distance (Feet) 63 Assistive Devices Assistive Device Front Wheeled Walker Orthotic/Prosthetic Devices or Brace: No Gait Deviations General Gait Pattern Decreased Feet Clearance Factors Limiting Gait Function Factors Limiting Gait Function Abnormal Tonal Influences, Decreased Strength,Poor Balance Stair Climbing Evaluation Comments Stair Climbing Comments patient unable PT-OP-H Neuro Start: 05/20/21 17:44 Freq: Status: Active Protocol: Document 05/21/21 14:32 [facility] (Rec: 05/21/21 17:31 [facility] [id number]) Sensation Evaluation Gross Sensation Gross Sensation Left LE Impaired,Right LE Impaired Sensation Description Paresthesia Comments Summary Comments poor proprioception bilateral LE's; patient reports some better when walks barefoot at home, but has difficulty knowing where her feet are in space. Coordination Evaluation Comments Coordination Comments decreased speed and accuracy of movement bilateral LE's right greater than left PT-OP-M Strength Start: 05/20/21 17:44 Freq: Status: Active Protocol: Document 05/21/21 14:32 [facility] (Rec: 05/21/21 17:31 [facility] [id number]) Hip Strength Hip Manual Muscle Testing Left Flexion (L2) 4 Good Extension (S1) 4- Good- Abduction 4- Good- Adduction 4 Good External Rotation 4- Good- Internal Rotation 4- Good- Right Flexion (L2) 4- Good- Extension (S1) 3+ Fair+ Abduction 3+ Fair+ Adduction 4- Good- External Rotation 3+ Fair+ Internal Rotation 4- Good- Knee Strength Knee Manual Muscle Testing Left Flexion (S2) 4+ Good+ Extension (L3) 4 Good Right Flexion (S2) 4 Good Extension (L3) 4- Good- Ankle/Foot Strength Ankle and Foot Manual Muscle Testing Left Dorsiflexion (L4) 4 Good Plantarflexion (S1) 4+ Good+ Inversion 4 Good Eversion (S1) 4+ Good+ Right Dorsiflexion (L4) 4- Good- Plantarflexion (S1) 4 Good Inversion 3+ Fair+ Eversion (S1) 4- Good- PT-OP-Q Treatments Start: 05/20/21 17:44 Freq: Status: Active Protocol: Document 03/18/22 15:12 [facility] (Rec: 03/18/22 16:51 [facility] [id number]) Therapeutic Exercises Sitting Exercises balloon VB Equipment Used sitting on yellow Dynadisc, feet on blue foam Reps/Minutes 5 min row, shld ext Equipment Used L1 TB Reps/Minutes 10x Therapeutic Activity Therapeutic Activity sit to stand testing Reps/Minutes 2 min balance testing Reps/Minutes 6 min Comments Tinetti Gait Training Gait Activity Walking with walker Description Walking with FWW Device Used FWW Level of Assistance CGA at GB, w/c behind. Surface Level Distance/Duration 95 Treatment Focus LE WB gait PT-OP-S Aquatic Treatment Start: 05/20/21 17:44 Freq: Status: Active Protocol: Document 02/18/22 14:22 [facility] (Rec: 02/18/22 14:31 [facility] [id number]) Aquatics Treatment Pool Entry/Exit Pool Entry/Exit Method Lift Assistance Standby Assistance Lower Extremity Exercises step-ups Details red boxes 8; 3 boxes in row Body Position Standing Equipment 8 boxes Reps/Duration 10x Comments chest to waist level Lower Extremity Stretches l/s, HS Equipment on wall, deep Reps/Duration 2x30 adductors Body Position Standing Water Level Hubbard Equipment wall Reps/Duration 2x45 B Upper Extremity Exercises HAB, HAD, B pull down Body Position Standing Water Level Neck Level Equipment med barbells Reps/Duration 10 chelle, 5x unil Comments emphasis core stability Spinal Exercises prone over beach ball Reps/Duration 2 min Hubbard Activities Hubbard Activities Bicycle,Bicycle Backwards, Cross Country,Hip Abduction/ Adduction Other Activities pendulum burpees: 10x fwd, 10x each side Equipment Lg belt, med BBs Duration 12 PT-OP-T Assessment and Plan Start: 05/20/21 17:44 Freq: Status: Active Protocol: Document 03/18/22 15:12 [facility] (Rec: 03/18/22 16:51 [facility] [id number]) Physical Therapy Assessment Goals Five Impairment inadequate HEP Short Term Goal (STG) Patient will be instructed in appropriate HEP for purposes of strengthening and balance training STG Duration 04/22/22 Group Home Goal (LTG) Patient to be independent in HEP and/or community exercise program for long-term strengthening and balance training LTG Duration 06/16/22 Four Impairment LE weakness Impairment 5x sit to stand test 17 sec 10/15/21: improved to 15 sec with slight dec use of hands 12/08/21: unable to assess today due to session in pool, reporting more difficulty with increased need to use hands 03/18/22: goal met STG Duration goal met Group Home Goal (LTG) Improve 5x sit to stand test to no greater than 12 sec as measure of improved functional LE strength 03/18/22: improved to 14 sec LTG Duration 06/16/22 Three Impairment no current aquatic exercise Group Home Goal (LTG) Patient will be safe and independent with a progressive aquatic exercise program addressing LE strengthening, gait and balance. 10/15/21: Continue to progress aquatic exercise program, she is now able to walk with SBA ( vs mod assist when first started aquatic PT) in chest level water, increased assist with decreased depth of water. Decreased LOB incidence noted. 12/08/21: improving aquatic exercise tolerance, prior to break in aquatic PT had been tolerating gentle progression of activities well 01/14/22: Good progress with aquatic exercise program with improved safety and comfort level. 03/18/23: aquatic therapy program has been cancelled so patient will be continuing aquatic exercise on her own and/or with assistance of personal banking advisor in the pool. PT will now transition to land-based LTG Duration goal discontinued One Impairment lack of independence with her walking in her home Group Home Goal (LTG) Patient will be able to ambulate safely for short distance ambulation in her home independently to improve her independence and quality of life. 10/15/21: Able to ambulate very short distances for transfers , improved 12/08/21: Has improved to 60 ft . pt goal of gait 110 ft with FWW without legs giving way. 01/14/22: No further progression per small house; patient reports she will attempt further 03/18/22: 95 ft before needing to sit due to feeling weak in knees, UE fatiguing from holding body weight with FWW LTG Duration 06/16/22 Two Impairment Decreased gait and balance ability Impairment Tinetti gait and balance assessment 11/16 indicating patient at high risk for falls 10/15/21: unable to retest as at pool today, patient reporting improved balance in sitting when reaching for objects, uncertain standing as using walker and very short distances Activities-specific Balance Confidence (ABC) scale 14% 12/08/21: again unable to assess as at pool but now able to stand on 1 foot in shallow water without UE support max 10 sec right and 7 sec left ( previously unable without UE support) 01/14/22: SLS 10 sec chelle in chest level water Rigging Helper Goal (LTG) Improve Tinetti gait and balance score to at least 15/ 28 to decrease patient risk for falls Improve ABC scale to at least 30% as measure of improved confidence in her mobility 03/18/22:Tinetti score improved to 01/16 ABC scale score: 13% LTG Duration 06/16/22 Assessment Summary Assessment Patient has made progress with aquatic therapy and now that aquatic therapy program has been discontinued she will transition to land-based PT to continue her rehab, addressing goals as above. Physical Therapy Plan Frequency and Duration Frequency of Treatment 1x/Week Duration of treatment (weeks) 8 Plan of Care Start Date 03/18/22 Plan of Care End Date 06/16/22 Therapeutic Interventions Therapeutic Interventions Aquatic Therapy,Balance Training,Home Exercise Program ,Neuromuscular Re-education, Patient/Caregiver Education, Self-Care/Home Management, Therapeutic Activities, Therapeutic Exercises Next Visit Focus/Plan Next Note Type Treatment Note Next Visit Plan Transition to land-based PT now that aquatic therapy discontinued. Gait training, balance training in parallel bars and sitting, strengthening UE's, LE's, core . Instruct in HEP, issue writen handouts
--- NOTE | 2022-03-18 16:53 | PT.OPPOC ---
Physical, Occupational & Speech Therapy At [facility] Current Diagnoses Multiple sclerosis (03/18/22) Paraplegia, incomplete (03/18/22) Visit Care Team Role Provider Type Rehan Zacarias MD Family Provider Physician Primary Care Provider Specialty: Internal Medicine Address: [address] [place] [address], [address], [address] Email: [email or web address] Rufino Umaña MD Attending Provider Non-Staff Referring Provider Specialty: Psychiatry Address: [address] [place] [address], [address], [place], [address] Email: Plan Of Care PT-OP-T Assessment and Plan Start: 05/20/21 17:44 Freq: Status: Active Protocol: Document 03/18/22 15:12 [facility] (Rec: 03/18/22 16:51 [facility] [id number]) Physical Therapy Assessment Goals Five Impairment inadequate HEP Short Term Goal (STG) Patient will be instructed in appropriate HEP for purposes of strengthening and balance training STG Duration 04/22/22 [facility] Goal (LTG) Patient to be independent in HEP and/or community exercise program for long-term strengthening and balance training LTG Duration 06/16/22 Four Impairment LE weakness Impairment 5x sit to stand test 17 sec 10/15/21: improved to 15 sec with slight dec use of hands 12/08/21: unable to assess today due to session in pool, reporting more difficulty with increased need to use hands 03/18/22: goal met STG Duration goal met Director Home Health Goal (LTG) Improve 5x sit to stand test to no greater than 12 sec as measure of improved functional LE strength 03/18/22: improved to 14 sec LTG Duration 06/16/22 Three Impairment no current aquatic exercise [facility] Goal (LTG) Patient will be safe and independent with a progressive aquatic exercise program addressing LE strengthening, gait and balance. 10/15/21: Continue to progress aquatic exercise program, she is now able to walk with SBA ( vs mod assist when first started aquatic PT) in chest level water, increased assist with decreased depth of water. Decreased LOB incidence noted. 12/08/21: improving aquatic exercise tolerance, prior to break in aquatic PT had been tolerating gentle progression of activities well 01/14/22: Good progress with aquatic exercise program with improved safety and comfort level. 03/18/23: aquatic therapy program has been cancelled so patient will be continuing aquatic exercise on her own and/or with assistance of warehouse trainer in the pool. PT will now transition to land-based LTG Duration goal discontinued One Impairment lack of independence with her walking in her home [facility] Goal (LTG) Patient will be able to ambulate safely for short distance ambulation in her home independently to improve her independence and quality of life. 10/15/21: Able to ambulate very short distances for transfers , improved 12/08/21: Has improved to 60 ft . pt goal of gait 110 ft with FWW without legs giving way. 01/14/22: No further progression per small house; patient reports she will attempt further 03/18/22: 95 ft before needing to sit due to feeling weak in knees, UE fatiguing from holding body weight with FWW LTG Duration 06/16/22 Two Impairment Decreased gait and balance ability Impairment Tinetti gait and balance assessment 11/16 indicating patient at high risk for falls 10/15/21: unable to retest as at pool today, patient reporting improved balance in sitting when reaching for objects, uncertain standing as using walker and very short distances Activities-specific Balance Confidence (ABC) scale 14% 12/08/21: again unable to assess as at pool but now able to stand on 1 foot in shallow water without UE support max 10 sec right and 7 sec left ( previously unable without UE support) 01/14/22: SLS 10 sec chelle in chest level water [facility] Goal (LTG) Improve Tinetti gait and balance score to at least 15/ 28 to decrease patient risk for falls Improve ABC scale to at least 30% as measure of improved confidence in her mobility 03/18/22:Tinetti score improved to 10 ABC scale score: 13% LTG Duration 06/16/22 Assessment Summary Assessment Patient has made progress with aquatic therapy and now that aquatic therapy program has been discontinued she will transition to land-based PT to continue her rehab, addressing goals as above. Physical Therapy Plan Frequency and Duration Frequency of Treatment 1x/Week Duration of treatment (weeks) 8 Plan of Care Start Date 03/18/22 Plan of Care End Date 06/16/22 Therapeutic Interventions Therapeutic Interventions Aquatic Therapy,Balance Training,Home Exercise Program ,Neuromuscular Re-education, Patient/Caregiver Education, Self-Care/Home Management, Therapeutic Activities, Therapeutic Exercises Next Visit Focus/Plan Next Note Type Treatment Note Next Visit Plan Transition to land-based PT now that aquatic therapy discontinued. Gait training, balance training in parallel bars and sitting, strengthening UE's, LE's, core . Instruct in HEP, issue writen handouts Plan of Care Dates Plan of Care Start Date 03/18/22 Plan of Care End Date 06/16/22 Electronically Signed by: Bertha Redding, PT 03/18/22 [id number] If you are in agreement with this Plan of Care, please return a signed and dated copy. I have reviewed this Plan of Care and certify that the skilled therapy services above are required to meet the patient?s needs. Physician Signature Date Printed Name and Credentials Clinical Instructor Signature Printed Name and Credentials
--- NOTE | 2022-04-27 09:47 | PT.OTN ---
Current Diagnoses Multiple sclerosis (04/27/22) Paraplegia, incomplete (04/27/22) Physical Therapy Treatment Note PT-OP-A Visit Information Start: 05/20/21 17:44 Freq: Status: Active Protocol: Document 04/27/22 09:06 LRN (Rec: 04/27/22 09:47 LRN [id number]) Out-Patient Physical Therapy Visit Information Visit Information Visit Type Treatment Note Visit Start Time 09:06 Visit Stop Time 09:45 Total Visit Minutes 38 Visit Number 20 Evaluation Information Evaluation Date 05/21/21 Precautions Precautions esophageal stenosis negative response to overheating HTN related to medications, being weaned off and will start a new medication PT-OP-B Current Condition Start: 05/20/21 17:44 Freq: Status: Active Protocol: Document 05/21/21 14:32 SAK (Rec: 05/21/21 15:20 SAK [id number]) Current Condition History of Current Condition Onset Date 2 years Current Complaints MS with LE weakness right greater than left History of Current Condition Patient previously did land- based PT for MS. Now referred for aquatic PT. Main c/o are LE weakness, difficulty ambulating; 120' max with Fww needs w/c behind in case LE's give way, and balance difficulty. Doing HEP fairly consistently but not as much as I should. Lives in downstairs apartment, Aunt lives above and comes down to assist with exercises. Patient able to do most self- care by herself with some set- up assist from Aunt. Also c/ o tightness in LE's especially quads as well as cramping and right foot going out to the side with gait. Can't feel where her feet are due to loss of sensation in LE's. Fell 1x this month from sitting while reaching. Was able to transfer back to chair. Only walks when has help. Prior Treatments and Tests Land-based PT Future Testing and Treatments Planned none at this time. 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 Hobbies Unable to access the stage or green room with w/c. Personal Factors Other Personal Factors That May Effect assisted to appointments by Therapy/Recovery aunt PT-OP-C Subjective Start: 05/20/21 17:44 Freq: Status: Active Protocol: Document 04/27/22 09:06 LRN (Rec: 04/27/22 09:47 LRN [id number]) OP-PT Subjective Patient Comments Patient Comments Had trachea surgery, to stretch and laser out scar tissue. Neck feels swollen and can now breath. PT-OP-D Balance Start: 05/20/21 17:44 Freq: Status: Active Protocol: Document 05/21/21 14:32 [facility] (Rec: 05/21/21 17:31 [facility] [id number]) Tinetti Balance Assessment Sitting Balance Sitting Balance Steady, safe Arising from Chair Ability to Arise Able, w/o using arms Standing Balance Immediate Standing Balance Steady with support Standing Balance Unsteady Nudged Response Begins to fall Standing with Eyes Closed Unsteady Turning Step Pattern Turning 360 Degrees Discontinuous steps Stability Turning 360 Degrees Unsteady, grabs/staggers Sitting Down Sitting Down Uses arms or unsteady Gait and Step Initiation of Gait Hesitancy, mult. attempts Right Foot Step Length Does not pass stance ft. Right Foot Step Height Does not clear floor Left Foot Step Length Does not pass stance foot Left Foot Step Height Does not clear floor Step Description Step Symmetry Step length appears equal Step Continuity Steps appear continuous Gait Description Path Description Mild/moderate deviation Trunk Description Marked sway or uses aide Walking Stance Heels apart Scoring and Interpretation Tinetti Composite Score (points) 8 PT-OP-G Mobility & Gait Start: 05/20/21 17:44 Freq: Status: Active Protocol: Document 05/21/21 14:32 [facility] (Rec: 05/21/21 17:31 [facility] [id number]) OP Mobility Evaluation Bed Mobility Rolling indep Supine to and from Sit indep Transfers Sit to Stand indep Bed to Chair Transfers indep Floor Transfers variable, most recentlky after fall was able to transfer back into w/c Wheelchair Management Type of Wheelchair manual Assessment Details Patient didn't bring own chair to PT today OP Gait Assessment Gait Gait Assistance Required: Standby Assistance Distance (Feet) 63 Assistive Devices Assistive Device Front Wheeled Walker Orthotic/Prosthetic Devices or Brace: No Gait Deviations General Gait Pattern Decreased Feet Clearance Factors Limiting Gait Function Factors Limiting Gait Function Abnormal Tonal Influences, Decreased Strength,Poor Balance Stair Climbing Evaluation Comments Stair Climbing Comments patient unable PT-OP-H Neuro Start: 05/20/21 17:44 Freq: Status: Active Protocol: Document 05/21/21 14:32 [facility] (Rec: 05/21/21 17:31 [facility] [id number]) Sensation Evaluation Gross Sensation Gross Sensation Left LE Impaired,Right LE Impaired Sensation Description Paresthesia Comments Summary Comments poor proprioception bilateral LE's; patient reports some better when walks barefoot at home, but has difficulty knowing where her feet are in space. Coordination Evaluation Comments Coordination Comments decreased speed and accuracy of movement bilateral LE's right greater than left PT-OP-M Strength Start: 05/20/21 17:44 Freq: Status: Active Protocol: Document 05/21/21 14:32 [facility] (Rec: 05/21/21 17:31 [facility] [id number]) Hip Strength Hip Manual Muscle Testing Left Flexion (L2) 4 Good Extension (S1) 4- Good- Abduction 4- Good- Adduction 4 Good External Rotation 4- Good- Internal Rotation 4- Good- Right Flexion (L2) 4- Good- Extension (S1) 3+ Fair+ Abduction 3+ Fair+ Adduction 4- Good- External Rotation 3+ Fair+ Internal Rotation 4- Good- Knee Strength Knee Manual Muscle Testing Left Flexion (S2) 4+ Good+ Extension (L3) 4 Good Right Flexion (S2) 4 Good Extension (L3) 4- Good- Ankle/Foot Strength Ankle and Foot Manual Muscle Testing Left Dorsiflexion (L4) 4 Good Plantarflexion (S1) 4+ Good+ Inversion 4 Good Eversion (S1) 4+ Good+ Right Dorsiflexion (L4) 4- Good- Plantarflexion (S1) 4 Good Inversion 3+ Fair+ Eversion (S1) 4- Good- PT-OP-Q Treatments Start: 05/20/21 17:44 Freq: Status: Active Protocol: Document 04/27/22 09:06 LRN (Rec: 04/27/22 09:47 LRN [id number]) Gym Equipment Cable Column (Body Solid) Trunk rotation Details Trunk rot, cable just below breast hgt Resistance 10 Reps/Time 10x 3 L, 10 x3 R. V cuing for breathing Therapeutic Exercises Sitting Exercises Sit to Stand Sitting Exercise Name Sit to Stand Reps/Minutes 10x Scap depression Sitting Exercise Name Scap depression Side bilateral Equipment Used Lev 4 TB Reps/Minutes 6' Comments Much extra time taken for set up and issuance of TBand for HEP Row Sitting Exercise Name Row Side bilateral Reps/Minutes 20x, 10x Chest Press Sitting Exercise Name Chest Press Side bilateral Reps/Minutes 15x balloon VB Equipment Used sitting on yellow Dynadisc, feet on blue foam Reps/Minutes 5 min row, shld ext Equipment Used L1 TB Reps/Minutes 10x Gait Training Gait Activity Walking with walker Description Walking with FWW Device Used FWW Level of Assistance CGA at GB, w/c behind. Surface Level Distance/Duration 120' Treatment Focus LE WB gait Comments One sit rest. PT-OP-S Aquatic Treatment Start: 05/20/21 17:44 Freq: Status: Active Protocol: Document 02/18/22 14:22 SAK (Rec: 02/18/22 14:31 SAK [id number]) Aquatics Treatment Pool Entry/Exit Pool Entry/Exit Method Lift Assistance Standby Assistance Lower Extremity Exercises step-ups Details red boxes 8; 3 boxes in row Body Position Standing Equipment 8 boxes Reps/Duration 10x Comments chest to waist level Lower Extremity Stretches l/s, HS Equipment on wall, deep Reps/Duration 2x30 adductors Body Position Standing Water Level [place] Equipment wall Reps/Duration 2x45 B Upper Extremity Exercises HAB, HAD, B pull down Body Position Standing Water Level Neck Level Equipment med barbells Reps/Duration 10 chelle, 5x unil Comments emphasis core stability Spinal Exercises prone over beach ball Reps/Duration 2 min [place] Activities [place] Activities Bicycle,Bicycle Backwards, Cross Country,Hip Abduction/ Adduction Other Activities pendulum burpees: 10x fwd, 10x each side Equipment Lg belt, med BBs Duration 12 PT-OP-T Assessment and Plan Start: 05/20/21 17:44 Freq: Status: Active Protocol: Document 04/27/22 09:06 LRN (Rec: 04/27/22 09:47 LRN [id number]) Physical Therapy Assessment Goals Five Impairment inadequate HEP Short Term Goal (STG) Patient will be instructed in appropriate HEP for purposes of strengthening and balance training STG Duration 04/22/22 Longterm Goal (LTG) Patient to be independent in HEP and/or community exercise program for long-term strengthening and balance training LTG Duration 06/16/22 Four Impairment LE weakness Impairment 5x sit to stand test 17 sec 10/15/21: improved to 15 sec with slight dec use of hands 12/08/21: unable to assess today due to session in pool, reporting more difficulty with increased need to use hands 03/18/22: goal met STG Duration goal met Quality Measurement Specialist Goal (LTG) Improve 5x sit to stand test to no greater than 12 sec as measure of improved functional LE strength 03/18/22: improved to 14 sec LTG Duration 06/16/22 Three Impairment no current aquatic exercise Longterm Goal (LTG) Patient will be safe and independent with a progressive aquatic exercise program addressing LE strengthening, gait and balance. 10/15/21: Continue to progress aquatic exercise program, she is now able to walk with SBA ( vs mod assist when first started aquatic PT) in chest level water, increased assist with decreased depth of water. Decreased LOB incidence noted. 12/08/21: improving aquatic exercise tolerance, prior to break in aquatic PT had been tolerating gentle progression of activities well 01/14/22: Good progress with aquatic exercise program with improved safety and comfort level. 03/18/23: aquatic therapy program has been cancelled so patient will be continuing aquatic exercise on her own and/or with assistance of personal development mentor in the pool. PT will now transition to land-based LTG Duration goal discontinued One Impairment lack of independence with her walking in her home Longterm Goal (LTG) Patient will be able to ambulate safely for short distance ambulation in her home independently to improve her independence and quality of life. 10/15/21: Able to ambulate very short distances for transfers , improved 12/08/21: Has improved to 60 ft . pt goal of gait 110 ft with FWW without legs giving way. 01/14/22: No further progression per small house; patient reports she will attempt further 03/18/22: 95 ft before needing to sit due to feeling weak in knees, UE fatiguing from holding body weight with FWW LTG Duration 06/16/22 Two Impairment Decreased gait and balance ability Impairment Tinetti gait and balance assessment 11/16 indicating patient at high risk for falls 10/15/21: unable to retest as at pool today, patient reporting improved balance in sitting when reaching for objects, uncertain standing as using walker and very short distances Activities-specific Balance Confidence (ABC) scale 14% 12/08/21: again unable to assess as at pool but now able to stand on 1 foot in shallow water without UE support max 10 sec right and 7 sec left ( previously unable without UE support) 01/14/22: SLS 10 sec chelle in chest level water Quality Measurement Specialist Goal (LTG) Improve Tinetti gait and balance score to at least 15/ 28 to decrease patient risk for falls Improve ABC scale to at least 30% as measure of improved confidence in her mobility 03/18/22:Tinetti score improved to 10/28 ABC scale score: 13% LTG Duration 06/16/22 Assessment Summary Assessment Pt able to play balloon volleyball, reaching overhead without LOB backwards, indicating improved core strength from initial eval. Improved gait distance, possibly due to pt feeling like she is breathing better. Physical Therapy Plan Frequency and Duration Frequency of Treatment 1x/Week Duration of treatment (weeks) 8 Plan of Care Start Date 03/18/22 Plan of Care End Date 06/16/22 Next Visit Focus/Plan Next Note Type Treatment Note Next Visit Plan Cont transition to land-based PT now that aquatic therapy discontinued. Gait training, balance training in parallel bars and sitting, strengthening UE's, LE's, core . Instruct in HEP, issue writen handouts
--- NOTE | 2022-05-13 13:00 | PT.OTN ---
Current Diagnoses Multiple sclerosis (05/13/22) Paraplegia, incomplete (05/13/22) Physical Therapy Treatment Note PT-OP-A Visit Information Start: 05/20/21 17:44 Freq: Status: Active Protocol: Document 05/13/22 12:12 SP (Rec: 05/13/22 13:02 SP [id number]) Out-Patient Physical Therapy Visit Information Visit Information Visit Type Treatment Note Visit Start Time 12:13 Visit Stop Time 13:00 Total Visit Minutes 47 Visit Number 21 Number of LIFT TRUCK MECHANIC Visits 1 Evaluation Information Evaluation Date 05/21/21 Precautions Precautions esophageal stenosis negative response to overheating HTN related to medications, being weaned off and will start a new medication PT-OP-B Current Condition Start: 05/20/21 17:44 Freq: Status: Active Protocol: Document 05/21/21 14:32 SAK (Rec: 05/21/21 15:20 SAK [id number]) Current Condition History of Current Condition Onset Date 2 years Current Complaints MS with LE weakness right greater than left History of Current Condition Patient previously did land- based PT for MS. Now referred for aquatic PT. Main c/o are LE weakness, difficulty ambulating; 120' max with Fww needs w/c behind in case LE's give way, and balance difficulty. Doing HEP fairly consistently but not as much as I should. Lives in downstairs apartment, Aunt lives above and comes down to assist with exercises. Patient able to do most self- care by herself with some set- up assist from Aunt. Also c/ o tightness in LE's especially quads as well as cramping and right foot going out to the side with gait. Can't feel where her feet are due to loss of sensation in LE's. Fell 1x this month from sitting while reaching. Was able to transfer back to chair. Only walks when has help. Prior Treatments and Tests Land-based PT Future Testing and Treatments Planned none at this time. 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 Hobbies Unable to access the stage or green room with w/c. Personal Factors Other Personal Factors That May Effect assisted to appointments by Therapy/Recovery aunt PT-OP-C Subjective Start: 05/20/21 17:44 Freq: Status: Active Protocol: Document 05/13/22 12:12 SP (Rec: 05/13/22 13:02 SP [id number]) OP-PT Subjective Patient Comments Patient Comments Pt reported doing short distance gait w/ FWW 10-70 ft w/ wc follow depending on strength that day. Patient Questionnaires ABC- Activity Specific Balance Confidence Scale ABC Score 450 ABC Functional Impairment 60 to <80% Impaired (Score 21- 40) PT-OP-D Balance Start: 05/20/21 17:44 Freq: Status: Active Protocol: Document 05/13/22 12:12 SP (Rec: 05/13/22 13:02 SP [id number]) Tinetti Balance Assessment Scoring and Interpretation Interpretation of Scores High risk for falls(< 19) Tinetti Impairment Rating from Composite 60 to <80% Impaired (Score 6- Score 11) PT-OP-G Mobility & Gait Start: 05/20/21 17:44 Freq: Status: Active Protocol: Document 05/21/21 14:32 SAK (Rec: 05/21/21 17:31 [facility] [id number]) OP Mobility Evaluation Bed Mobility Rolling indep Supine to and from Sit indep Transfers Sit to Stand indep Bed to Chair Transfers indep Floor Transfers variable, most recentlky after fall was able to transfer back into w/c Wheelchair Management Type of Wheelchair manual Assessment Details Patient didn't bring own chair to PT today OP Gait Assessment Gait Gait Assistance Required: Standby Assistance Distance (Feet) 63 Assistive Devices Assistive Device Front Wheeled Walker Orthotic/Prosthetic Devices or Brace: No Gait Deviations General Gait Pattern Decreased Feet Clearance Factors Limiting Gait Function Factors Limiting Gait Function Abnormal Tonal Influences, Decreased Strength,Poor Balance Stair Climbing Evaluation Comments Stair Climbing Comments patient unable PT-OP-H Neuro Start: 05/20/21 17:44 Freq: Status: Active Protocol: Document 05/21/21 14:32 SAK (Rec: 05/21/21 17:31 [facility] [id number]) Sensation Evaluation Gross Sensation Gross Sensation Left LE Impaired,Right LE Impaired Sensation Description Paresthesia Comments Summary Comments poor proprioception bilateral LE's; patient reports some better when walks barefoot at home, but has difficulty knowing where her feet are in space. Coordination Evaluation Comments Coordination Comments decreased speed and accuracy of movement bilateral LE's right greater than left PT-OP-M Strength Start: 05/20/21 17:44 Freq: Status: Active Protocol: Document 05/21/21 14:32 SAK (Rec: 05/21/21 17:31 SAK [id number]) Hip Strength Hip Manual Muscle Testing Left Flexion (L2) 4 Good Extension (S1) 4- Good- Abduction 4- Good- Adduction 4 Good External Rotation 4- Good- Internal Rotation 4- Good- Right Flexion (L2) 4- Good- Extension (S1) 3+ Fair+ Abduction 3+ Fair+ Adduction 4- Good- External Rotation 3+ Fair+ Internal Rotation 4- Good- Knee Strength Knee Manual Muscle Testing Left Flexion (S2) 4+ Good+ Extension (L3) 4 Good Right Flexion (S2) 4 Good Extension (L3) 4- Good- Ankle/Foot Strength Ankle and Foot Manual Muscle Testing Left Dorsiflexion (L4) 4 Good Plantarflexion (S1) 4+ Good+ Inversion 4 Good Eversion (S1) 4+ Good+ Right Dorsiflexion (L4) 4- Good- Plantarflexion (S1) 4 Good Inversion 3+ Fair+ Eversion (S1) 4- Good- PT-OP-Q Treatments Start: 05/20/21 17:44 Freq: Status: Active Protocol: Document 05/13/22 12:12 SP (Rec: 05/13/22 13:02 SP [id number]) Therapeutic Exercises Sitting Exercises Sit to Stand Sitting Exercise Name Sit to Stand- LTG assess Equipment Used UE support on chair arms- mesh chair Reps/Minutes 17 sec Row Sitting Exercise Name Row Side bilateral Resistance TB #3 (aide anchored) Reps/Minutes 20x Comments good stability (LIFT TRUCK MECHANIC SBA for safety) Chest Press Sitting Exercise Name Chest Press Side bilateral Resistance TB #3 (anchored around trunk) Reps/Minutes 20x Comments noted little unstablility no LOB balloon VB Equipment Used sitting on yellow>blue Dynadisc, feet on floor ( yellow seamus disc) Reps/Minutes 5 min Comments good reaching outside ANSHUL Gait Training Gait Activity Walking with walker Description Walking with FWW Device Used FWW Level of Assistance CGA at GB, w/c behind. Surface Level Distance/Duration 125ft Treatment Focus LE WB gait- assess baseline distance Comments no seated rests, 1 brief stop rest approx 90 ft. Neuro Re-Education Treatment Balance Activities Tinetti Details 02/16 Comments high fall risks PT-OP-S Aquatic Treatment Start: 05/20/21 17:44 Freq: Status: Active Protocol: Document 02/18/22 14:22 SAK (Rec: 02/18/22 14:31 SAK [id number]) Aquatics Treatment Pool Entry/Exit Pool Entry/Exit Method Lift Assistance Standby Assistance Lower Extremity Exercises step-ups Details red boxes 8; 3 boxes in row Body Position Standing Equipment 8 boxes Reps/Duration 10x Comments chest to waist level Lower Extremity Stretches l/s, HS Equipment on wall, deep Reps/Duration 2x30 adductors Body Position Standing Water Level [place] Equipment wall Reps/Duration 2x45 B Upper Extremity Exercises HAB, HAD, B pull down Body Position Standing Water Level Neck Level Equipment med barbells Reps/Duration 10 chelle, 5x unil Comments emphasis core stability Spinal Exercises prone over beach ball Reps/Duration 2 min [place] Activities [place] Activities Bicycle,Bicycle Backwards, Cross Country,Hip Abduction/ Adduction Other Activities pendulum burpees: 10x fwd, 10x each side Equipment Lg belt, med BBs Duration 12 PT-OP-T Assessment and Plan Start: 05/20/21 17:44 Freq: Status: Active Protocol: Document 05/13/22 12:12 SP (Rec: 05/13/22 13:02 SP [id number]) Physical Therapy Assessment Goals Five Impairment inadequate HEP Short Term Goal (STG) Patient will be instructed in appropriate HEP for purposes of strengthening and balance training STG Duration 04/22/22 Residential Goal (LTG) Patient to be independent in HEP and/or community exercise program for long-term strengthening and balance training LTG Duration 06/16/22 Four Impairment LE weakness Short Term Goal (STG) 5x sit to stand test 17 sec 10/15/21: improved to 15 sec with slight dec use of hands 12/08/21: unable to assess today due to session in pool, reporting more difficulty with increased need to use hands 03/18/22: goal met STG Duration goal met Residential Goal (LTG) Improve 5x sit to stand test to no greater than 12 sec as measure of improved functional LE strength 03/18/22: improved to 14 sec 05/13/22: 17 sec LTG Duration 06/16/22 slow progression Three Impairment no current aquatic exercise Engraver Apprentice Decorative Goal (LTG) Patient will be safe and independent with a progressive aquatic exercise program addressing LE strengthening, gait and balance. 10/15/21: Continue to progress aquatic exercise program, she is now able to walk with SBA ( vs mod assist when first started aquatic PT) in chest level water, increased assist with decreased depth of water. Decreased LOB incidence noted. 12/08/21: improving aquatic exercise tolerance, prior to break in aquatic PT had been tolerating gentle progression of activities well 01/14/22: Good progress with aquatic exercise program with improved safety and comfort level. 03/18/23: aquatic therapy program has been cancelled so patient will be continuing aquatic exercise on her own and/or with assistance of manager personal in the pool. PT will now transition to land-based LTG Duration goal discontinued One Impairment lack of independence with her walking in her home Residential Goal (LTG) Patient will be able to ambulate safely for short distance ambulation in her home independently to improve her independence and quality of life. 10/15/21: Able to ambulate very short distances for transfers , improved 12/08/21: Has improved to 60 ft . pt goal of gait 110 ft with FWW without legs giving way. 01/14/22: No further progression per small house; patient reports she will attempt further 03/18/22: 95 ft before needing to sit due to feeling weak in knees, UE fatiguing from holding body weight with FWW 05/13/22: progressing: Gait distance w/ bariatric FWW and wc follow 125 ft. Walking about 10-70 ft in house clear pathway 5/7 days a week with aunt following with wc. LTG Duration 06/16/22 progressing 05/13/22 Two Impairment Decreased gait and balance ability Short Term Goal (STG) Tinetti gait and balance assessment 11/16 indicating patient at high risk for falls 10/15/21: unable to retest as at pool today, patient reporting improved balance in sitting when reaching for objects, uncertain standing as using walker and very short distances Activities-specific Balance Confidence (ABC) scale 14% 12/08/21: again unable to assess as at pool but now able to stand on 1 foot in shallow water without UE support max 10 sec right and 7 sec left ( previously unable without UE support) 01/14/22: SLS 10 sec chelle in chest level water 05/13/22: Tinetti 02/16 Residential Goal (LTG) Improve Tinetti gait and balance score to at least 15/ 28 to decrease patient risk for falls Improve ABC scale to at least 30% as measure of improved confidence in her mobility 03/18/22:Tinetti score improved to 10 ABC scale score: 13% 10/15/21: unable to retest as at pool today, patient reporting improved balance in sitting when reaching for objects, uncertain standing as using walker and very short distances Activities-specific Balance Confidence (ABC) scale 14% 12/08/21: again unable to assess as at pool but now able to stand on 1 foot in shallow water without UE support max 10 sec right and 7 sec left ( previously unable without UE support) 01/14/22: SLS 10 sec chelle in chest level water 05/13/22: Tinetti: 02/16, see scanned forms. ABC Scale: score 450 or 28% LTG Duration 06/16/22 progressing 05/13/22 Assessment Summary Assessment Pt improved progression distance in gait with only 1 brief stop stand rest using FWW 125ft w/c follow. Pt not confident walking without standby and w/c follow. Completed 5x STS UE support 17 sec, reduction from 14 sec . High fall risk per Tinetti assessment 02/16 and ABC scale 60-80% impaired. Physical Therapy Plan Frequency and Duration Frequency of Treatment 1x/Week Duration of treatment (weeks) 8 Plan of Care Start Date 03/18/22 Plan of Care End Date 06/16/22 Therapeutic Interventions Therapeutic Interventions Aquatic Therapy,Balance Training,Home Exercise Program ,Neuromuscular Re-education, Patient/Caregiver Education, Self-Care/Home Management, Therapeutic Activities, Therapeutic Exercises Next Visit Focus/Plan Next Note Type Treatment Note Next Visit Plan PN note due, assess updated goals. POC: progress Gait training, balance training in parallel bars and sitting, strengthening UE's, LE's, core . Instruct in HEP, issue written handouts
--- NOTE | 2022-05-20 15:15 | PT.OTN ---
Current Diagnoses Multiple sclerosis (05/20/22) Paraplegia, incomplete (05/20/22) Physical Therapy Treatment Note PT-OP-A Visit Information Start: 05/20/21 17:44 Freq: Status: Active Protocol: Document 05/20/22 14:35 SP (Rec: 05/20/22 15:34 SP [id number]) Out-Patient Physical Therapy Visit Information Visit Information Visit Type Treatment Note Visit Note PN due. Visit Start Time 14:35 Visit Stop Time 15:15 Total Visit Minutes 40 Visit Number 22 Number of HVAC LEAD Visits 2 Evaluation Information Evaluation Date 05/21/21 Precautions Precautions esophageal stenosis negative response to overheating HTN related to medications, being weaned off and will start a new medication PT-OP-B Current Condition Start: 05/20/21 17:44 Freq: Status: Active Protocol: Document 05/21/21 14:32 SAK (Rec: 05/21/21 15:20 SAK [id number]) Current Condition History of Current Condition Onset Date 2 years Current Complaints MS with LE weakness right greater than left History of Current Condition Patient previously did land- based PT for MS. Now referred for aquatic PT. Main c/o are LE weakness, difficulty ambulating; 120' max with Fww needs w/c behind in case LE's give way, and balance difficulty. Doing HEP fairly consistently but not as much as I should. Lives in downstairs apartment, Aunt lives above and comes down to assist with exercises. Patient able to do most self- care by herself with some set- up assist from Aunt. Also c/ o tightness in LE's especially quads as well as cramping and right foot going out to the side with gait. Can't feel where her feet are due to loss of sensation in LE's. Fell 1x this month from sitting while reaching. Was able to transfer back to chair. Only walks when has help. Prior Treatments and Tests Land-based PT Future Testing and Treatments Planned none at this time. 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 Hobbies Unable to access the stage or green room with w/c. Personal Factors Other Personal Factors That May Effect assisted to appointments by Therapy/Recovery aunt PT-OP-C Subjective Start: 05/20/21 17:44 Freq: Status: Active Protocol: Document 05/20/22 14:35 SP (Rec: 05/20/22 15:34 SP [id number]) OP-PT Subjective Patient Comments Patient Comments Pt arrives in w/c as normal . 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 . PT-OP-D Balance Start: 05/20/21 17:44 Freq: Status: Active Protocol: Document 05/13/22 12:12 SP (Rec: 05/13/22 13:02 SP [id number]) Tinetti Balance Assessment Scoring and Interpretation Interpretation of Scores High risk for falls(< 19) Tinetti Impairment Rating from Composite 60 to <80% Impaired (Score 6- Score 11) PT-OP-G Mobility & Gait Start: 05/20/21 17:44 Freq: Status: Active Protocol: Document 05/21/21 14:32 SAK (Rec: 05/21/21 17:31 SAK [id number]) OP Mobility Evaluation Bed Mobility Rolling indep Supine to and from Sit indep Transfers Sit to Stand indep Bed to Chair Transfers indep Floor Transfers variable, most recentlky after fall was able to transfer back into w/c Wheelchair Management Type of Wheelchair manual Assessment Details Patient didn't bring own chair to PT today OP Gait Assessment Gait Gait Assistance Required: Standby Assistance Distance (Feet) 63 Assistive Devices Assistive Device Front Wheeled Walker Orthotic/Prosthetic Devices or Brace: No Gait Deviations General Gait Pattern Decreased Feet Clearance Factors Limiting Gait Function Factors Limiting Gait Function Abnormal Tonal Influences, Decreased Strength,Poor Balance Stair Climbing Evaluation Comments Stair Climbing Comments patient unable PT-OP-H Neuro Start: 05/20/21 17:44 Freq: Status: Active Protocol: Document 05/21/21 14:32 SAK (Rec: 05/21/21 17:31 SAK [id number]) Sensation Evaluation Gross Sensation Gross Sensation Left LE Impaired,Right LE Impaired Sensation Description Paresthesia Comments Summary Comments poor proprioception bilateral LE's; patient reports some better when walks barefoot at home, but has difficulty knowing where her feet are in space. Coordination Evaluation Comments Coordination Comments decreased speed and accuracy of movement bilateral LE's right greater than left PT-OP-M Strength Start: 05/20/21 17:44 Freq: Status: Active Protocol: Document 05/21/21 14:32 SAK (Rec: 05/21/21 17:31 SAK [id number]) Hip Strength Hip Manual Muscle Testing Left Flexion (L2) 4 Good Extension (S1) 4- Good- Abduction 4- Good- Adduction 4 Good External Rotation 4- Good- Internal Rotation 4- Good- Right Flexion (L2) 4- Good- Extension (S1) 3+ Fair+ Abduction 3+ Fair+ Adduction 4- Good- External Rotation 3+ Fair+ Internal Rotation 4- Good- Knee Strength Knee Manual Muscle Testing Left Flexion (S2) 4+ Good+ Extension (L3) 4 Good Right Flexion (S2) 4 Good Extension (L3) 4- Good- Ankle/Foot Strength Ankle and Foot Manual Muscle Testing Left Dorsiflexion (L4) 4 Good Plantarflexion (S1) 4+ Good+ Inversion 4 Good Eversion (S1) 4+ Good+ Right Dorsiflexion (L4) 4- Good- Plantarflexion (S1) 4 Good Inversion 3+ Fair+ Eversion (S1) 4- Good- PT-OP-Q Treatments Start: 05/20/21 17:44 Freq: Status: Active Protocol: Document 05/20/22 14:35 SP (Rec: 05/20/22 15:34 SP [id number]) Gym Equipment Shuttle Recovery Bilateral Squats Details Squats with manual support to ankles and knees Resistance 75# (1 new band) Shuttle Recovery Platform Stable Reps/Time 10x good slow and controlled- R ankle unsteady EV x1 instance. Therapeutic Exercises Sitting Exercises pull down Sitting Exercise Name rear facing- initiated in PT for core fac Side bilateral Resistance Tb #3>4 Equipment Used seated in wc Reps/Minutes x30 reps Comments cued slow pacing core fac- good response HS curls Sitting Exercise Name initiated in PT- a past HEP Resistance TB#2 Equipment Used therapist anchor Reps/Minutes 2x10 Comments good form LAQ Sitting Exercise Name Initiated in PT- a past HEP Side bilateral Resistance #5 leg wt Equipment Used mesh chair Reps/Minutes x30 reps Comments Good slow pacing row, shld ext Resistance therapist anchor Equipment Used L1>2 TB Reps/Minutes 10x Comments cued slow eccentric control Gait Training Gait Activity Walking with walker Description Walking with FWW Device Used FWW Level of Assistance CGA at GB, w/c behind. Surface Level Distance/Duration 35ft (end tx) Treatment Focus LE WB gait, stride, foot clearance Comments no seated rests. Manual Therapy Treatment Soft Tissue Mobilization R lateral ribcage, LB Body Location QL, ES, lateral oblique Mobilization Type Myofascial Release,Sustained Pressure Intensity/Depth Moderate Body Position Sitting Comments seated in w/c facing plinth, upper body over pillow. Good feedback reponse. PT-OP-S Aquatic Treatment Start: 05/20/21 17:44 Freq: Status: Active Protocol: Document 02/18/22 14:22 SAK (Rec: 02/18/22 14:31 SAK [id number]) Aquatics Treatment Pool Entry/Exit Pool Entry/Exit Method Lift Assistance Standby Assistance Lower Extremity Exercises step-ups Details red boxes 8; 3 boxes in row Body Position Standing Equipment 8 boxes Reps/Duration 10x Comments chest to waist level Lower Extremity Stretches l/s, HS Equipment on wall, deep Reps/Duration 2x30 adductors Body Position Standing Water Level [place] Equipment wall Reps/Duration 2x45 B Upper Extremity Exercises HAB, HAD, B pull down Body Position Standing Water Level Neck Level Equipment med barbells Reps/Duration 10 chelle, 5x unil Comments emphasis core stability Spinal Exercises prone over beach ball Reps/Duration 2 min [place] Activities [place] Activities Bicycle,Bicycle Backwards, Cross Country,Hip Abduction/ Adduction Other Activities pendulum burpees: 10x fwd, 10x each side Equipment Lg belt, med BBs Duration 12 PT-OP-T Assessment and Plan Start: 05/20/21 17:44 Freq: Status: Active Protocol: Document 05/20/22 14:35 SP (Rec: 05/20/22 15:34 SP [id number]) Physical Therapy Assessment Goals Five Impairment inadequate HEP Short Term Goal (STG) Patient will be instructed in appropriate HEP for purposes of strengthening and balance training 05/20/22: reviewed HEP: seated HS curl, LAQ, STS, rows, shld ext, pull downs, family member anchors due to no door to put into (have barn doors). STG Duration 04/22/22 progressing 05/20/22 Ux Design Lead Goal (LTG) Patient to be independent in HEP and/or community exercise program for long-term strengthening and balance training LTG Duration 06/16/22 Four Impairment LE weakness Short Term Goal (STG) 5x sit to stand test 17 sec 10/15/21: improved to 15 sec with slight dec use of hands 12/08/21: unable to assess today due to session in pool, reporting more difficulty with increased need to use hands 03/18/22: goal met STG Duration goal met Ux Design Lead Goal (LTG) Improve 5x sit to stand test to no greater than 12 sec as measure of improved functional LE strength 03/18/22: improved to 14 sec 05/13/22: slow progression: 17 sec LTG Duration 06/16/22 slow progression One Impairment lack of independence with her walking in her home Prison Goal (LTG) Patient will be able to ambulate safely for short distance ambulation in her home independently to improve her independence and quality of life. 10/15/21: Able to ambulate very short distances for transfers , improved 12/08/21: Has improved to 60 ft . pt goal of gait 110 ft with FWW without legs giving way. 01/14/22: No further progression per small house; patient reports she will attempt further 03/18/22: 95 ft before needing to sit due to feeling weak in knees, UE fatiguing from holding body weight with FWW 05/13/22: progressing: Gait distance w/ bariatric FWW and wc follow 125 ft. Walking about 10-70 ft in house clear pathway 5/7 days a week with aunt following with wc. LTG Duration 06/16/22 progressing 05/13/22 Two Impairment Decreased gait and balance ability Short Term Goal (STG) Tinetti gait and balance assessment 11/16 indicating patient at high risk for falls 10/15/21: unable to retest as at pool today, patient reporting improved balance in sitting when reaching for objects, uncertain standing as using walker and very short distances Activities-specific Balance Confidence (ABC) scale 14% 12/08/21: again unable to assess as at pool but now able to stand on 1 foot in shallow water without UE support max 10 sec right and 7 sec left ( previously unable without UE support) 01/14/22: SLS 10 sec chelle in chest level water 05/13/22: Tinetti 02/16 Prison Goal (LTG) Improve Tinetti gait and balance score to at least 15/ 28 to decrease patient risk for falls Improve ABC scale to at least 30% as measure of improved confidence in her mobility 03/18/22:Tinetti score improved to 10 ABC scale score: 13% 10/15/21: unable to retest as at pool today, patient reporting improved balance in sitting when reaching for objects, uncertain standing as using walker and very short distances Activities-specific Balance Confidence (ABC) scale 14% 12/08/21: again unable to assess as at pool but now able to stand on 1 foot in shallow water without UE support max 10 sec right and 7 sec left ( previously unable without UE support) 01/14/22: SLS 10 sec chelle in chest level water 05/13/22: Tinetti: 02/16, see scanned forms. ABC Scale: score 450 or 28% LTG Duration 06/16/22 progressing 05/13/22 Assessment Summary Assessment Pt worked hard throughout tx. Able to perform leg press this tx and increase resistance to UE and LE ther ex. Decreased distance gait, performed end tx and having posterolateral ribcage/pelvis cramping/brief spasming, improved post manual . Physical Therapy Plan Frequency and Duration Frequency of Treatment 1x/Week Duration of treatment (weeks) 8 Plan of Care Start Date 03/18/22 Plan of Care End Date 06/16/22 Therapeutic Interventions Therapeutic Interventions Aquatic Therapy,Balance Training,Home Exercise Program ,Neuromuscular Re-education, Patient/Caregiver Education, Self-Care/Home Management, Therapeutic Activities, Therapeutic Exercises Next Visit Focus/Plan Next Note Type Treatment Note Next Visit Plan PN note next. Review HEP and increase endurance/gait standing activities. POC: progress Gait training, balance training in parallel bars and sitting, strengthening UE's, LE's, core . Instruct in HEP, issue written handouts.
--- NOTE | 2022-05-28 16:41 | PT.OTN ---
Current Diagnoses Multiple sclerosis (05/28/22) Paraplegia, incomplete (05/28/22) Physical Therapy Treatment Note PT-OP-A Visit Information Start: 05/20/21 17:44 Freq: Status: Active Protocol: Document 05/28/22 14:32 [facility] (Rec: 05/28/22 15:20 [facility] [id number]) Out-Patient Physical Therapy Visit Information Visit Information Visit Type Treatment Note Visit Note PN due. Visit Start Time 14:33 Visit Stop Time 15:15 Total Visit Minutes 42 Visit Number 23 Number of [employer] Visits 0 Evaluation Information Evaluation Date 05/21/21 Precautions Precautions esophageal stenosis negative response to overheating HTN related to medications, being weaned off and will start a new medication PT-OP-B Current Condition Start: 05/20/21 17:44 Freq: Status: Active Protocol: Document 05/21/21 14:32 [facility] (Rec: 05/21/21 15:20 [facility] [id number]) Current Condition History of Current Condition Onset Date 2 years Current Complaints MS with LE weakness right greater than left History of Current Condition Patient previously did land- based PT for MS. Now referred for aquatic PT. Main c/o are LE weakness, difficulty ambulating; 120' max with Fww needs w/c behind in case LE's give way, and balance difficulty. Doing HEP fairly consistently but not as much as I should. Lives in downstairs apartment, Aunt lives above and comes down to assist with exercises. Patient able to do most self- care by herself with some set- up assist from Aunt. Also c/ o tightness in LE's especially quads as well as cramping and right foot going out to the side with gait. Can't feel where her feet are due to loss of sensation in LE's. Fell 1x this month from sitting while reaching. Was able to transfer back to chair. Only walks when has help. Prior Treatments and Tests Land-based PT Future Testing and Treatments Planned none at this time. 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 Hobbies Unable to access the stage or green room with w/c. Personal Factors Other Personal Factors That May Effect assisted to appointments by Therapy/Recovery aunt PT-OP-C Subjective Start: 05/20/21 17:44 Freq: Status: Active Protocol: Document 05/28/22 14:32 [facility] (Rec: 05/28/22 15:20 [facility] [id number]) OP-PT Subjective Patient Comments Patient Comments Less cramping to a few times a day but still has felt less stable Has appointment with neurologist soon. Hasn't been able to walk much due to cramping, aunt feels uncomfortable helping patient if she is cramping because is less stable. PT-OP-D Balance Start: 05/20/21 17:44 Freq: Status: Active Protocol: Document 05/13/22 12:12 [facility] (Rec: 05/13/22 13:02 SP [id number]) Tinetti Balance Assessment Scoring and Interpretation Interpretation of Scores High risk for falls(< 19) Tinetti Impairment Rating from Composite 60 to <80% Impaired (Score 6- Score 11) PT-OP-G Mobility & Gait Start: 05/20/21 17:44 Freq: Status: Active Protocol: Document 05/21/21 14:32 [facility] (Rec: 05/21/21 17:31 [facility] [id number]) OP Mobility Evaluation Bed Mobility Rolling indep Supine to and from Sit indep Transfers Sit to Stand indep Bed to Chair Transfers indep Floor Transfers variable, most recentlky after fall was able to transfer back into w/c Wheelchair Management Type of Wheelchair manual Assessment Details Patient didn't bring own chair to PT today OP Gait Assessment Gait Gait Assistance Required: Standby Assistance Distance (Feet) 63 Assistive Devices Assistive Device Front Wheeled Walker Orthotic/Prosthetic Devices or Brace: No Gait Deviations General Gait Pattern Decreased Feet Clearance Factors Limiting Gait Function Factors Limiting Gait Function Abnormal Tonal Influences, Decreased Strength,Poor Balance Stair Climbing Evaluation Comments Stair Climbing Comments patient unable PT-OP-H Neuro Start: 05/20/21 17:44 Freq: Status: Active Protocol: Document 05/21/21 14:32 [facility] (Rec: 05/21/21 17:31 [facility] [id number]) Sensation Evaluation Gross Sensation Gross Sensation Left LE Impaired,Right LE Impaired Sensation Description Paresthesia Comments Summary Comments poor proprioception bilateral LE's; patient reports some better when walks barefoot at home, but has difficulty knowing where her feet are in space. Coordination Evaluation Comments Coordination Comments decreased speed and accuracy of movement bilateral LE's right greater than left PT-OP-M Strength Start: 05/20/21 17:44 Freq: Status: Active Protocol: Document 05/21/21 14:32 [facility] (Rec: 05/21/21 17:31 [facility] [id number]) Hip Strength Hip Manual Muscle Testing Left Flexion (L2) 4 Good Extension (S1) 4- Good- Abduction 4- Good- Adduction 4 Good External Rotation 4- Good- Internal Rotation 4- Good- Right Flexion (L2) 4- Good- Extension (S1) 3+ Fair+ Abduction 3+ Fair+ Adduction 4- Good- External Rotation 3+ Fair+ Internal Rotation 4- Good- Knee Strength Knee Manual Muscle Testing Left Flexion (S2) 4+ Good+ Extension (L3) 4 Good Right Flexion (S2) 4 Good Extension (L3) 4- Good- Ankle/Foot Strength Ankle and Foot Manual Muscle Testing Left Dorsiflexion (L4) 4 Good Plantarflexion (S1) 4+ Good+ Inversion 4 Good Eversion (S1) 4+ Good+ Right Dorsiflexion (L4) 4- Good- Plantarflexion (S1) 4 Good Inversion 3+ Fair+ Eversion (S1) 4- Good- PT-OP-Q Treatments Start: 05/20/21 17:44 Freq: Status: Active Protocol: Document 05/28/22 14:32 [facility] (Rec: 05/28/22 15:20 [facility] [id number]) Gym Equipment Shuttle Recovery Bilateral Squats Details Squats with manual support to ankles and knees Resistance 75# (1 new band) Shuttle Recovery Platform Stable Reps/Time 10x2 good slow and controlled - R ankle unsteady EV x1 instance. Therapeutic Exercises Supine Exercises LE stretches Supine Exercise Name HS, SKTC, ITBand, piriformis Reps/Minutes 2x30 Comments manual Sitting Exercises march Reps/Minutes 10x 5# pull down Sitting Exercise Name rear facing- initiated in PT for core fac Side bilateral Resistance Tb #3>4 Equipment Used seated in wc Reps/Minutes x30 reps Comments cued slow pacing core fac- good response HS curls Sitting Exercise Name initiated in PT- a past HEP Resistance TB#2 Equipment Used therapist anchor Reps/Minutes 2x10 Comments good form LAQ Sitting Exercise Name Initiated in PT- a past HEP Side bilateral Resistance #5 leg wt Equipment Used mesh chair Reps/Minutes x30 reps Comments Good slow pacing Row Sitting Exercise Name Row Side bilateral Resistance TB #3 Reps/Minutes 25x Comments good stability ([employer] SBA for safety) Chest Press Sitting Exercise Name Chest Press Side bilateral Resistance TB #3 (anchored around trunk) Reps/Minutes 20x Comments noted little unstablility no LOB balloon VB Equipment Used sitting on yellow>blue Dynadisc, feet on floor ( yellow seamus disc) Reps/Minutes 5 min row, shld ext Equipment Used L3 TB Reps/Minutes 10x Comments cued slow eccentric control Therapeutic Activity Therapeutic Activity sit to stand testing Reps/Minutes 5x Comments 16 sec Gait Training Gait Activity Walking with walker Description Walking with FWW Device Used FWW Level of Assistance CGA at GB, w/c behind. Surface Level Distance/Duration 71ft (end tx) Treatment Focus LE WB gait, stride, foot clearance Comments no seated rests. PT-OP-S Aquatic Treatment Start: 05/20/21 17:44 Freq: Status: Active Protocol: Document 02/18/22 14:22 [facility] (Rec: 02/18/22 14:31 [facility] [id number]) Aquatics Treatment Pool Entry/Exit Pool Entry/Exit Method Lift Assistance Standby Assistance Lower Extremity Exercises step-ups Details red boxes 8; 3 boxes in row Body Position Standing Equipment 8 boxes Reps/Duration 10x Comments chest to waist level Lower Extremity Stretches l/s, HS Equipment on wall, deep Reps/Duration 2x30 adductors Body Position Standing Water Level [place] Equipment wall Reps/Duration 2x45 B Upper Extremity Exercises HAB, HAD, B pull down Body Position Standing Water Level Neck Level Equipment med barbells Reps/Duration 10 chelle, 5x unil Comments emphasis core stability Spinal Exercises prone over beach ball Reps/Duration 2 min [place] Activities [place] Activities Bicycle,Bicycle Backwards, Cross Country,Hip Abduction/ Adduction Other Activities pendulum burpees: 10x fwd, 10x each side Equipment Lg belt, med BBs Duration 12 PT-OP-T Assessment and Plan Start: 05/20/21 17:44 Freq: Status: Active Protocol: Document 05/28/22 14:32 [facility] (Rec: 05/28/22 15:20 [facility] [id number]) Physical Therapy Assessment Goals Five Impairment inadequate HEP Short Term Goal (STG) Patient will be instructed in appropriate HEP for purposes of strengthening and balance training 05/20/22: reviewed HEP: seated HS curl, LAQ, STS, rows, shld ext, pull downs, family member anchors due to no door to put into (have barn doors). 05/28/22: GOAL MET. STG Duration GOAL MET Respooler Goal (LTG) Patient to be independent in HEP and/or community exercise program for long-term strengthening and balance training 05/28/22: goal progress LTG Duration 06/16/22 Four Impairment LE weakness Impairment 5x sit to stand test 17 sec 10/15/21: improved to 15 sec with slight dec use of hands 12/08/21: unable to assess today due to session in pool, reporting more difficulty with increased need to use hands 03/18/22: goal met Short Term Goal (STG) 5x sit to stand test 17 sec 10/15/21: improved to 15 sec with slight dec use of hands 12/08/21: unable to assess today due to session in pool, reporting more difficulty with increased need to use hands 03/18/22: goal met STG Duration goal met Nursing Home Goal (LTG) Improve 5x sit to stand test to no greater than 12 sec as measure of improved functional LE strength 03/18/22: improved to 14 sec 05/13/22: slow progression: 17 sec 05/28/22: 16 sec, done middle of session LTG Duration 06/16/22 One Impairment lack of independence with her walking in her home Respooler Goal (LTG) Patient will be able to ambulate safely for short distance ambulation in her home independently to improve her independence and quality of life. 10/15/21: Able to ambulate very short distances for transfers , improved 12/08/21: Has improved to 60 ft . pt goal of gait 110 ft with FWW without legs giving way. 01/14/22: No further progression per small house; patient reports she will attempt further 03/18/22: 95 ft before needing to sit due to feeling weak in knees, UE fatiguing from holding body weight with FWW 05/13/22: progressing: Gait distance w/ bariatric FWW and wc follow 125 ft. Walking about 10-70 ft in house clear pathway 5/7 days a week with aunt following with wc. 05/28/22: improved from last session, LE cramping difficulty affecting ability to walk and caregiver comfort level with assisting 71 ft today with bariatric FWW with w/c follow. Sees neurologist soon. LTG Duration 06/16/22 Two Impairment Decreased gait and balance ability Impairment Tinetti gait and balance assessment 11/16 indicating patient at high risk for falls 10/15/21: unable to retest as at pool today, patient reporting improved balance in sitting when reaching for objects, uncertain standing as using walker and very short distances Activities-specific Balance Confidence (ABC) scale 14% 12/08/21: again unable to assess as at pool but now able to stand on 1 foot in shallow water without UE support max 10 sec right and 7 sec left ( previously unable without UE support) 01/14/22: SLS 10 sec chelle in chest level water Short Term Goal (STG) Tinetti gait and balance assessment 11/16 indicating patient at high risk for falls 10/15/21: unable to retest as at pool today, patient reporting improved balance in sitting when reaching for objects, uncertain standing as using walker and very short distances Activities-specific Balance Confidence (ABC) scale 14% 12/08/21: again unable to assess as at pool but now able to stand on 1 foot in shallow water without UE support max 10 sec right and 7 sec left ( previously unable without UE support) 01/14/22: SLS 10 sec chelle in chest level water 05/13/22: Tinetti 02/1605/28/22: Had been noting some improvements in balance until recent difficulty with cramping/spasms in LE's. Tinetti not tested today. Respooler Goal (LTG) Improve Tinetti gait and balance score to at least 15/ 28 to decrease patient risk for falls Improve ABC scale to at least 30% as measure of improved confidence in her mobility 03/18/22:Tinetti score improved to 10 ABC scale score: 13% 10/15/21: unable to retest as at pool today, patient reporting improved balance in sitting when reaching for objects, uncertain standing as using walker and very short distances Activities-specific Balance Confidence (ABC) scale 14% 12/08/21: again unable to assess as at pool but now able to stand on 1 foot in shallow water without UE support max 10 sec right and 7 sec left ( previously unable without UE support) 01/14/22: SLS 10 sec chelle in chest level water 05/13/22: Tinetti: 02/16, see scanned forms. ABC Scale: score 450 or 28% LTG Duration 06/16/22 Assessment Summary Assessment Patient walking distance improved from last session, again done toward end of session, need to assess first of session next appointment. Some improvement in cramping and lateral trunk pain, no manual performed today. Good HEP compliance for HEP but not with walking due to cramping and caregiver discomfort/fear of her falling. Physical Therapy Plan Frequency and Duration Frequency of Treatment 1x/Week Duration of treatment (weeks) 8 Plan of Care Start Date 03/18/22 Plan of Care End Date 06/16/22 Therapeutic Interventions Therapeutic Interventions Aquatic Therapy,Balance Training,Home Exercise Program ,Neuromuscular Re-education, Patient/Caregiver Education, Self-Care/Home Management, Therapeutic Activities, Therapeutic Exercises Next Visit Focus/Plan Next Note Type Treatment Note Next Visit Plan POC: progress Gait training, balance training in parallel bars and sitting, strengthening UE's, LE's, core . Instruct in HEP, issue written handouts.
--- NOTE | 2022-06-02 14:44 | PT.OTN ---
Current Diagnoses Multiple sclerosis (06/02/22) Paraplegia, incomplete (06/02/22) Physical Therapy Treatment Note PT-OP-A Visit Information Start: 05/20/21 17:44 Freq: Status: Active Protocol: Document 06/02/22 13:45 SAK (Rec: 06/02/22 14:44 [facility] [id number]) Out-Patient Physical Therapy Visit Information Visit Information Visit Type Treatment Note Visit Start Time 13:46 Visit Stop Time 14:31 Total Visit Minutes 45 Visit Number 24 Evaluation Information Evaluation Date 05/21/21 Precautions Precautions esophageal stenosis negative response to overheating HTN related to medications, being weaned off and will start a new medication PT-OP-B Current Condition Start: 05/20/21 17:44 Freq: Status: Active Protocol: Document 05/21/21 14:32 SAK (Rec: 05/21/21 15:20 SAK [id number]) Current Condition History of Current Condition Onset Date 2 years Current Complaints MS with LE weakness right greater than left History of Current Condition Patient previously did land- based PT for MS. Now referred for aquatic PT. Main c/o are LE weakness, difficulty ambulating; 120' max with Fww needs w/c behind in case LE's give way, and balance difficulty. Doing HEP fairly consistently but not as much as I should. Lives in downstairs apartment, Aunt lives above and comes down to assist with exercises. Patient able to do most self- care by herself with some set- up assist from Aunt. Also c/ o tightness in LE's especially quads as well as cramping and right foot going out to the side with gait. Can't feel where her feet are due to loss of sensation in LE's. Fell 1x this month from sitting while reaching. Was able to transfer back to chair. Only walks when has help. Prior Treatments and Tests Land-based PT Future Testing and Treatments Planned none at this time. 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 Hobbies Unable to access the stage or green room with w/c. Personal Factors Other Personal Factors That May Effect assisted to appointments by Therapy/Recovery aunt PT-OP-C Subjective Start: 05/20/21 17:44 Freq: Status: Active Protocol: Document 06/02/22 13:45 SAK (Rec: 06/02/22 14:44 SAK [id number]) OP-PT Subjective Patient Comments Patient Comments Worked at [employer] over weekend, tired. Sees neurologist on Wednesday. PT-OP-D Balance Start: 05/20/21 17:44 Freq: Status: Active Protocol: Document 05/13/22 12:12 SP (Rec: 05/13/22 13:02 SP [id number]) Tinetti Balance Assessment Scoring and Interpretation Interpretation of Scores High risk for falls(< 19) Tinetti Impairment Rating from Composite 60 to <80% Impaired (Score 6- Score 11) PT-OP-G Mobility & Gait Start: 05/20/21 17:44 Freq: Status: Active Protocol: Document 05/21/21 14:32 SAK (Rec: 05/21/21 17:31 SAK [id number]) OP Mobility Evaluation Bed Mobility Rolling indep Supine to and from Sit indep Transfers Sit to Stand indep Bed to Chair Transfers indep Floor Transfers variable, most recentlky after fall was able to transfer back into w/c Wheelchair Management Type of Wheelchair manual Assessment Details Patient didn't bring own chair to PT today OP Gait Assessment Gait Gait Assistance Required: Standby Assistance Distance (Feet) 63 Assistive Devices Assistive Device Front Wheeled Walker Orthotic/Prosthetic Devices or Brace: No Gait Deviations General Gait Pattern Decreased Feet Clearance Factors Limiting Gait Function Factors Limiting Gait Function Abnormal Tonal Influences, Decreased Strength,Poor Balance Stair Climbing Evaluation Comments Stair Climbing Comments patient unable PT-OP-H Neuro Start: 05/20/21 17:44 Freq: Status: Active Protocol: Document 05/21/21 14:32 SAK (Rec: 05/21/21 17:31 SAK [id number]) Sensation Evaluation Gross Sensation Gross Sensation Left LE Impaired,Right LE Impaired Sensation Description Paresthesia Comments Summary Comments poor proprioception bilateral LE's; patient reports some better when walks barefoot at home, but has difficulty knowing where her feet are in space. Coordination Evaluation Comments Coordination Comments decreased speed and accuracy of movement bilateral LE's right greater than left PT-OP-M Strength Start: 05/20/21 17:44 Freq: Status: Active Protocol: Document 05/21/21 14:32 [facility] (Rec: 05/21/21 17:31 [facility] [id number]) Hip Strength Hip Manual Muscle Testing Left Flexion (L2) 4 Good Extension (S1) 4- Good- Abduction 4- Good- Adduction 4 Good External Rotation 4- Good- Internal Rotation 4- Good- Right Flexion (L2) 4- Good- Extension (S1) 3+ Fair+ Abduction 3+ Fair+ Adduction 4- Good- External Rotation 3+ Fair+ Internal Rotation 4- Good- Knee Strength Knee Manual Muscle Testing Left Flexion (S2) 4+ Good+ Extension (L3) 4 Good Right Flexion (S2) 4 Good Extension (L3) 4- Good- Ankle/Foot Strength Ankle and Foot Manual Muscle Testing Left Dorsiflexion (L4) 4 Good Plantarflexion (S1) 4+ Good+ Inversion 4 Good Eversion (S1) 4+ Good+ Right Dorsiflexion (L4) 4- Good- Plantarflexion (S1) 4 Good Inversion 3+ Fair+ Eversion (S1) 4- Good- PT-OP-Q Treatments Start: 05/20/21 17:44 Freq: Status: Active Protocol: Document 06/02/22 13:45 [facility] (Rec: 06/02/22 14:44 [facility] [id number]) Gym Equipment Shuttle Recovery Unilateral Squats Resistance 37 Shuttle Recovery Platform Stable Reps/Time 10x2 Bilateral Squats Details Squats with manual support to ankles and knees Resistance 75# (1 new band) Shuttle Recovery Platform Stable Reps/Time 10x2 good slow and controlled - R ankle unsteady EV x1 instance. Therapeutic Exercises Supine Exercises SAQ Resistance 2 Reps/Minutes 15x bridges Reps/Minutes 15x LE stretches Supine Exercise Name HS, SKTC, ITBand, piriformis Reps/Minutes 2x30 Comments manual Sitting Exercises march Reps/Minutes 10x 5# pull down Sitting Exercise Name rear facing- initiated in PT for core fac Side bilateral Resistance Tb #3>4 Equipment Used seated in wc Reps/Minutes x30 reps Comments cued slow pacing core fac- good response Row Sitting Exercise Name Row Side bilateral Resistance TB #3 Reps/Minutes 25x Comments good stability (CHARGER SBA for safety) balloon VB Equipment Used sitting on yellow>blue Dynadisc, feet on floor ( yellow seamus disc) Reps/Minutes 5 min row, shld ext Equipment Used L3 TB Reps/Minutes 10x Comments cued slow eccentric control Gait Training Gait Activity Walking with walker Description Walking with FWW Device Used FWW Level of Assistance CGA at GB, w/c behind. Surface Level Distance/Duration 72ft (start of treatment) Treatment Focus LE WB gait, stride, foot clearance Comments no seated rests. PT-OP-S Aquatic Treatment Start: 05/20/21 17:44 Freq: Status: Active Protocol: Document 02/18/22 14:22 [facility] (Rec: 02/18/22 14:31 [facility] [id number]) Aquatics Treatment Pool Entry/Exit Pool Entry/Exit Method Lift Assistance Standby Assistance Lower Extremity Exercises step-ups Details red boxes 8; 3 boxes in row Body Position Standing Equipment 8 boxes Reps/Duration 10x Comments chest to waist level Lower Extremity Stretches l/s, HS Equipment on wall, deep Reps/Duration 2x30 adductors Body Position Standing Water Level [place] Equipment wall Reps/Duration 2x45 B Upper Extremity Exercises HAB, HAD, B pull down Body Position Standing Water Level Neck Level Equipment med barbells Reps/Duration 10 chelle, 5x unil Comments emphasis core stability Spinal Exercises prone over beach ball Reps/Duration 2 min [place] Activities [place] Activities Bicycle,Bicycle Backwards, Cross Country,Hip Abduction/ Adduction Other Activities pendulum burpees: 10x fwd, 10x each side Equipment Lg belt, med BBs Duration 12 PT-OP-T Assessment and Plan Start: 05/20/21 17:44 Freq: Status: Active Protocol: Document 06/02/22 13:45 [facility] (Rec: 06/02/22 14:44 [facility] [id number]) Physical Therapy Assessment Goals Five Impairment inadequate HEP Short Term Goal (STG) Patient will be instructed in appropriate HEP for purposes of strengthening and balance training 05/20/22: reviewed HEP: seated HS curl, LAQ, STS, rows, shld ext, pull downs, family member anchors due to no door to put into (have barn doors). 05/28/22: GOAL MET. STG Duration GOAL MET Retirement Goal (LTG) Patient to be independent in HEP and/or community exercise program for long-term strengthening and balance training 05/28/22: goal progress LTG Duration 06/16/22 Four Impairment LE weakness Impairment 5x sit to stand test 17 sec 10/15/21: improved to 15 sec with slight dec use of hands 12/08/21: unable to assess today due to session in pool, reporting more difficulty with increased need to use hands 03/18/22: goal met Short Term Goal (STG) 5x sit to stand test 17 sec 10/15/21: improved to 15 sec with slight dec use of hands 12/08/21: unable to assess today due to session in pool, reporting more difficulty with increased need to use hands 03/18/22: goal met STG Duration goal met Retirement Goal (LTG) Improve 5x sit to stand test to no greater than 12 sec as measure of improved functional LE strength 03/18/22: improved to 14 sec 05/13/22: slow progression: 17 sec 05/28/22: 16 sec, done middle of session LTG Duration 06/16/22 One Impairment lack of independence with her walking in her home Retirement Goal (LTG) Patient will be able to ambulate safely for short distance ambulation in her home independently to improve her independence and quality of life. 10/15/21: Able to ambulate very short distances for transfers , improved 12/08/21: Has improved to 60 ft . pt goal of gait 110 ft with FWW without legs giving way. 01/14/22: No further progression per small house; patient reports she will attempt further 03/18/22: 95 ft before needing to sit due to feeling weak in knees, UE fatiguing from holding body weight with FWW 05/13/22: progressing: Gait distance w/ bariatric FWW and wc follow 125 ft. Walking about 10-70 ft in house clear pathway 5/7 days a week with aunt following with wc. 05/28/22: improved from last session, LE cramping difficulty affecting ability to walk and caregiver comfort level with assisting 71 ft today with bariatric FWW with w/c follow. Sees neurologist soon. LTG Duration 06/16/22 Two Impairment Decreased gait and balance ability Impairment Tinetti gait and balance assessment 11/16 indicating patient at high risk for falls 10/15/21: unable to retest as at pool today, patient reporting improved balance in sitting when reaching for objects, uncertain standing as using walker and very short distances Activities-specific Balance Confidence (ABC) scale 14% 12/08/21: again unable to assess as at pool but now able to stand on 1 foot in shallow water without UE support max 10 sec right and 7 sec left ( previously unable without UE support) 01/14/22: SLS 10 sec chelle in chest level water Short Term Goal (STG) Tinetti gait and balance assessment 11/16 indicating patient at high risk for falls 10/15/21: unable to retest as at [place] today, patient reporting improved balance in sitting when reaching for objects, uncertain standing as using walker and very short distances Activities-specific Balance Confidence (ABC) scale 14% 12/08/21: again unable to assess as at [place] but now able to stand on 1 foot in shallow water without UE support max 10 sec right and 7 sec left ( previously unable without UE support) 01/14/22: SLS 10 sec chelle in chest level water 05/13/22: Tinetti 02/1605/28/22: Had been noting some improvements in balance until recent difficulty with cramping/spasms in LE's. Tinetti not tested today. Retirement Goal (LTG) Improve Tinetti gait and balance score to at least 15/ 28 to decrease patient risk for falls Improve ABC scale to at least 30% as measure of improved confidence in her mobility 03/18/22:Tinetti score improved to 01/16 ABC scale score: 13% 10/15/21: unable to retest as at [place] today, patient reporting improved balance in sitting when reaching for objects, uncertain standing as using walker and very short distances Activities-specific Balance Confidence (ABC) scale 14% 12/08/21: again unable to assess as at [place] but now able to stand on 1 foot in shallow water without UE support max 10 sec right and 7 sec left ( previously unable without UE support) 01/14/22: SLS 10 sec chelle in chest level water 05/13/22: Tinetti: 02/16, see scanned forms. ABC Scale: score 450 or 28% LTG Duration 06/16/22 Assessment Summary Assessment Patient fatigued from working at [employer] for 2 days over weekend, no significant change in gait distance, legs fatigued quickly, though did progress to single leg press on shuttle recovery. Physical Therapy Plan Frequency and Duration Frequency of Treatment 1x/Week Duration of treatment (weeks) 8 Plan of Care Start Date 03/18/22 Plan of Care End Date 06/16/22 Therapeutic Interventions Therapeutic Interventions Aquatic Therapy,Balance Training,Home Exercise Program ,Neuromuscular Re-education, Patient/Caregiver Education, Self-Care/Home Management, Therapeutic Activities, Therapeutic Exercises Next Visit Focus/Plan Next Note Type Treatment Note Next Visit Plan Continue to progress gait training, balance training, strengthening. Update HEP handouts as needed; pt reported current at this time.
--- NOTE | 2022-06-10 16:18 | PT.OTN ---
Current Diagnoses Multiple sclerosis (06/10/22) Paraplegia, incomplete (06/10/22) Physical Therapy Treatment Note PT-OP-A Visit Information Start: 05/20/21 17:44 Freq: Status: Active Protocol: Document 06/10/22 15:20 SAK (Rec: 06/10/22 16:18 [facility] [id number]) Out-Patient Physical Therapy Visit Information Visit Information Visit Type Treatment Note Visit Start Time 15:20 Total Visit Minutes 40 Visit Number 25 Evaluation Information Evaluation Date 05/21/21 Precautions Precautions esophageal stenosis negative response to overheating HTN related to medications, being weaned off and will start a new medication PT-OP-B Current Condition Start: 05/20/21 17:44 Freq: Status: Active Protocol: Document 05/21/21 14:32 SAK (Rec: 05/21/21 15:20 [facility] [id number]) Current Condition History of Current Condition Onset Date 2 years Current Complaints MS with LE weakness right greater than left History of Current Condition Patient previously did land- based PT for MS. Now referred for aquatic PT. Main c/o are LE weakness, difficulty ambulating; 120' max with Fww needs w/c behind in case LE's give way, and balance difficulty. Doing HEP fairly consistently but not as much as I should. Lives in downstairs apartment, Aunt lives above and comes down to assist with exercises. Patient able to do most self- care by herself with some set- up assist from Aunt. Also c/ o tightness in LE's especially quads as well as cramping and right foot going out to the side with gait. Can't feel where her feet are due to loss of sensation in LE's. Fell 1x this month from sitting while reaching. Was able to transfer back to chair. Only walks when has help. Prior Treatments and Tests Land-based PT Future Testing and Treatments Planned none at this time. 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 Hobbies Unable to access the stage or green room with w/c. Personal Factors Other Personal Factors That May Effect assisted to appointments by Therapy/Recovery aunt PT-OP-C Subjective Start: 05/20/21 17:44 Freq: Status: Active Protocol: Document 06/10/22 15:20 SAK (Rec: 06/10/22 16:18 SAK [id number]) OP-PT Subjective Patient Comments Patient Comments Saw neurologist, only change was new medication for bladder control. PT-OP-D Balance Start: 05/20/21 17:44 Freq: Status: Active Protocol: Document 05/13/22 12:12 SP (Rec: 05/13/22 13:02 SP [id number]) Tinetti Balance Assessment Scoring and Interpretation Interpretation of Scores High risk for falls(< 19) Tinetti Impairment Rating from Composite 60 to <80% Impaired (Score 6- Score 11) PT-OP-G Mobility & Gait Start: 05/20/21 17:44 Freq: Status: Active Protocol: Document 05/21/21 14:32 SAK (Rec: 05/21/21 17:31 SAK [id number]) OP Mobility Evaluation Bed Mobility Rolling indep Supine to and from Sit indep Transfers Sit to Stand indep Bed to Chair Transfers indep Floor Transfers variable, most recentlky after fall was able to transfer back into w/c Wheelchair Management Type of Wheelchair manual Assessment Details Patient didn't bring own chair to PT today OP Gait Assessment Gait Gait Assistance Required: Standby Assistance Distance (Feet) 63 Assistive Devices Assistive Device Front Wheeled Walker Orthotic/Prosthetic Devices or Brace: No Gait Deviations General Gait Pattern Decreased Feet Clearance Factors Limiting Gait Function Factors Limiting Gait Function Abnormal Tonal Influences, Decreased Strength,Poor Balance Stair Climbing Evaluation Comments Stair Climbing Comments patient unable PT-OP-H Neuro Start: 05/20/21 17:44 Freq: Status: Active Protocol: Document 05/21/21 14:32 SAK (Rec: 05/21/21 17:31 SAK [id number]) Sensation Evaluation Gross Sensation Gross Sensation Left LE Impaired,Right LE Impaired Sensation Description Paresthesia Comments Summary Comments poor proprioception bilateral LE's; patient reports some better when walks barefoot at home, but has difficulty knowing where her feet are in space. Coordination Evaluation Comments Coordination Comments decreased speed and accuracy of movement bilateral LE's right greater than left PT-OP-M Strength Start: 05/20/21 17:44 Freq: Status: Active Protocol: Document 05/21/21 14:32 [facility] (Rec: 05/21/21 17:31 [facility] [id number]) Hip Strength Hip Manual Muscle Testing Left Flexion (L2) 4 Good Extension (S1) 4- Good- Abduction 4- Good- Adduction 4 Good External Rotation 4- Good- Internal Rotation 4- Good- Right Flexion (L2) 4- Good- Extension (S1) 3+ Fair+ Abduction 3+ Fair+ Adduction 4- Good- External Rotation 3+ Fair+ Internal Rotation 4- Good- Knee Strength Knee Manual Muscle Testing Left Flexion (S2) 4+ Good+ Extension (L3) 4 Good Right Flexion (S2) 4 Good Extension (L3) 4- Good- Ankle/Foot Strength Ankle and Foot Manual Muscle Testing Left Dorsiflexion (L4) 4 Good Plantarflexion (S1) 4+ Good+ Inversion 4 Good Eversion (S1) 4+ Good+ Right Dorsiflexion (L4) 4- Good- Plantarflexion (S1) 4 Good Inversion 3+ Fair+ Eversion (S1) 4- Good- PT-OP-Q Treatments Start: 05/20/21 17:44 Freq: Status: Active Protocol: Document 06/10/22 15:20 [facility] (Rec: 06/10/22 16:18 [facility] [id number]) Gym Equipment Cable Column (Body Solid) Row Details Row Resistance 10# Reps/Time 15x1, 10x1 Triceps Press Down Details Pressing down with arms (Scap depression) Resistance 10# Reps/Time 10x 2 Trunk rotation Details Trunk rot, cable just below breast hgt Resistance 10 Reps/Time 10x 3 L, 10 x2 R. V cuing for breathing Shuttle Recovery Unilateral Squats Resistance 37 Shuttle Recovery Platform Stable Reps/Time 10x2 Bilateral Squats Details Squats with manual support to ankles and knees Resistance 75# (2 new bands) Shuttle Recovery Platform Stable Reps/Time 15x2 good slow and controlled - R ankle unsteady EV x1 instance. Therapeutic Exercises Sitting Exercises balloon VB Equipment Used sitting on yellow>blue Dynadisc, feet on floor ( yellow seamus disc) Reps/Minutes 5 min Gait Training Gait Activity Walking with walker Description Walking with FWW Device Used FWW Level of Assistance CGA at GB, w/c behind. Surface Level Distance/Duration 102ft (start of treatment) Treatment Focus LE WB gait, stride, foot clearance Comments no seated rests. Neuro Re-Education Treatment Balance Activities Standing in // bars Surface Level Comments Stood:20, 15, 12, secs with short sit rests between standing L side gives out first PT-OP-S Aquatic Treatment Start: 05/20/21 17:44 Freq: Status: Active Protocol: Document 02/18/22 14:22 [facility] (Rec: 02/18/22 14:31 [facility] [id number]) Aquatics Treatment Pool Entry/Exit Pool Entry/Exit Method Lift Assistance Standby Assistance Lower Extremity Exercises step-ups Details red boxes 8; 3 boxes in row Body Position Standing Equipment 8 boxes Reps/Duration 10x Comments chest to waist level Lower Extremity Stretches l/s, HS Equipment on wall, deep Reps/Duration 2x30 adductors Body Position Standing Water Level Dwight Equipment wall Reps/Duration 2x45 B Upper Extremity Exercises HAB, HAD, B pull down Body Position Standing Water Level Neck Level Equipment med barbells Reps/Duration 10 chelle, 5x unil Comments emphasis core stability Spinal Exercises prone over beach ball Reps/Duration 2 min Dwight Activities Dwight Activities Bicycle,Bicycle Backwards, Cross Country,Hip Abduction/ Adduction Other Activities pendulum burpees: 10x fwd, 10x each side Equipment Lg belt, med BBs Duration 12 PT-OP-T Assessment and Plan Start: 05/20/21 17:44 Freq: Status: Active Protocol: Document 06/10/22 15:20 [facility] (Rec: 06/10/22 16:18 [facility] [id number]) Physical Therapy Assessment Goals Five Impairment inadequate HEP Short Term Goal (STG) Patient will be instructed in appropriate HEP for purposes of strengthening and balance training 05/20/22: reviewed HEP: seated HS curl, LAQ, STS, rows, shld ext, pull downs, family member anchors due to no door to put into (have barn doors). 05/28/22: GOAL MET. STG Duration GOAL MET [employer] Goal (LTG) Patient to be independent in HEP and/or community exercise program for long-term strengthening and balance training 05/28/22: goal progress LTG Duration 06/16/22 Four Impairment LE weakness Impairment 5x sit to stand test 17 sec 10/15/21: improved to 15 sec with slight dec use of hands 12/08/21: unable to assess today due to session in pool, reporting more difficulty with increased need to use hands 03/18/22: goal met Short Term Goal (STG) 5x sit to stand test 17 sec 10/15/21: improved to 15 sec with slight dec use of hands 12/08/21: unable to assess today due to session in pool, reporting more difficulty with increased need to use hands 03/18/22: goal met STG Duration goal met [employer] Operator Goal (LTG) Improve 5x sit to stand test to no greater than 12 sec as measure of improved functional LE strength 03/18/22: improved to 14 sec 05/13/22: slow progression: 17 sec 05/28/22: 16 sec, done middle of session LTG Duration 06/16/22 One Impairment lack of independence with her walking in her home Long-Term Goal (LTG) Patient will be able to ambulate safely for short distance ambulation in her home independently to improve her independence and quality of life. 10/15/21: Able to ambulate very short distances for transfers , improved 12/08/21: Has improved to 60 ft . pt goal of gait 110 ft with FWW without legs giving way. 01/14/22: No further progression per small house; patient reports she will attempt further 03/18/22: 95 ft before needing to sit due to feeling weak in knees, UE fatiguing from holding body weight with FWW 05/13/22: progressing: Gait distance w/ bariatric FWW and wc follow 125 ft. Walking about 10-70 ft in house clear pathway 5/7 days a week with aunt following with wc. 05/28/22: improved from last session, LE cramping difficulty affecting ability to walk and caregiver comfort level with assisting 71 ft today with bariatric FWW with w/c follow. Sees neurologist soon. LTG Duration 06/16/22 Two Impairment Decreased gait and balance ability Impairment Tinetti gait and balance assessment 11/16 indicating patient at high risk for falls 10/15/21: unable to retest as at pool today, patient reporting improved balance in sitting when reaching for objects, uncertain standing as using walker and very short distances Activities-specific Balance Confidence (ABC) scale 14% 12/08/21: again unable to assess as at pool but now able to stand on 1 foot in shallow water without UE support max 10 sec right and 7 sec left ( previously unable without UE support) 01/14/22: SLS 10 sec chelle in chest level water Short Term Goal (STG) Tinetti gait and balance assessment 11/16 indicating patient at high risk for falls 10/15/21: unable to retest as at [employer] today, patient reporting improved balance in sitting when reaching for objects, uncertain standing as using walker and very short distances Activities-specific Balance Confidence (ABC) scale 14% 12/08/21: again unable to assess as at pool but now able to stand on 1 foot in shallow water without UE support max 10 sec right and 7 sec left ( previously unable without UE support) 01/14/22: SLS 10 sec chelle in chest level water 05/13/22: Tinetti 02/1605/28/22: Had been noting some improvements in balance until recent difficulty with cramping/spasms in LE's. Tinetti not tested today. Long-Term Goal (LTG) Improve Tinetti gait and balance score to at least 15/ 28 to decrease patient risk for falls Improve ABC scale to at least 30% as measure of improved confidence in her mobility 03/18/22:Tinetti score improved to 01/16 ABC scale score: 13% 10/15/21: unable to retest as at [employer] today, patient reporting improved balance in sitting when reaching for objects, uncertain standing as using walker and very short distances Activities-specific Balance Confidence (ABC) scale 14% 12/08/21: again unable to assess as at pool but now able to stand on 1 foot in shallow water without UE support max 10 sec right and 7 sec left ( previously unable without UE support) 01/14/22: SLS 10 sec chelle in chest level water 05/13/22: Tinetti: 02/16, see scanned forms. ABC Scale: score 450 or 28% LTG Duration 06/16/22 Physical Therapy Plan Frequency and Duration Frequency of Treatment 1x/Week Duration of treatment (weeks) 8 Plan of Care Start Date 03/18/22 Plan of Care End Date 06/16/22 Therapeutic Interventions Therapeutic Interventions Aquatic Therapy,Balance Training,Home Exercise Program ,Neuromuscular Re-education, Patient/Caregiver Education, Self-Care/Home Management, Therapeutic Activities, Therapeutic Exercises Next Visit Focus/Plan Next Note Type Treatment Note Next Visit Plan Continue to progress gait training, balance training, strengthening. Update HEP handouts as needed; pt reported current at this time.
--- NOTE | 2022-06-17 12:11 | PT-OP ANOTE ---
cancelled due to transportation cancelled
--- NOTE | 2022-06-24 16:57 | PT.OTN ---
Current Diagnoses Multiple sclerosis (06/24/22) Paraplegia, incomplete (06/24/22) Physical Therapy Treatment Note PT-OP-A Visit Information Start: 05/20/21 17:44 Freq: Status: Active Protocol: Document 06/24/22 14:33 SAK (Rec: 06/24/22 15:18 [facility] [id number]) Out-Patient Physical Therapy Visit Information Visit Information Visit Type Treatment Note Visit Start Time 14:33 Visit Stop Time 15:18 Total Visit Minutes 45 Visit Number 26 Evaluation Information Evaluation Date 05/21/21 Precautions Precautions esophageal stenosis negative response to overheating HTN related to medications, being weaned off and will start a new medication PT-OP-B Current Condition Start: 05/20/21 17:44 Freq: Status: Active Protocol: Document 05/21/21 14:32 SAK (Rec: 05/21/21 15:20 SAK [id number]) Current Condition History of Current Condition Onset Date 2 years Current Complaints MS with LE weakness right greater than left History of Current Condition Patient previously did land- based PT for MS. Now referred for aquatic PT. Main c/o are LE weakness, difficulty ambulating; 120' max with Fww needs w/c behind in case LE's give way, and balance difficulty. Doing HEP fairly consistently but not as much as I should. Lives in downstairs apartment, Aunt lives above and comes down to assist with exercises. Patient able to do most self- care by herself with some set- up assist from Aunt. Also c/ o tightness in LE's especially quads as well as cramping and right foot going out to the side with gait. Can't feel where her feet are due to loss of sensation in LE's. Fell 1x this month from sitting while reaching. Was able to transfer back to chair. Only walks when has help. Prior Treatments and Tests Land-based PT Future Testing and Treatments Planned none at this time. 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 Hobbies Unable to access the stage or green room with w/c. Personal Factors Other Personal Factors That May Effect assisted to appointments by Therapy/Recovery aunt PT-OP-C Subjective Start: 05/20/21 17:44 Freq: Status: Active Protocol: Document 06/10/22 15:20 SAK (Rec: 06/10/22 16:18 SAK [id number]) OP-PT Subjective Patient Comments Patient Comments Saw neurologist, only change was new medication for bladder control. PT-OP-D Balance Start: 05/20/21 17:44 Freq: Status: Active Protocol: Document 05/13/22 12:12 SP (Rec: 05/13/22 13:02 SP [id number]) Tinetti Balance Assessment Scoring and Interpretation Interpretation of Scores High risk for falls(< 19) Tinetti Impairment Rating from Composite 60 to <80% Impaired (Score 6- Score 11) PT-OP-G Mobility & Gait Start: 05/20/21 17:44 Freq: Status: Active Protocol: Document 05/21/21 14:32 SAK (Rec: 05/21/21 17:31 SAK [id number]) OP Mobility Evaluation Bed Mobility Rolling indep Supine to and from Sit indep Transfers Sit to Stand indep Bed to Chair Transfers indep Floor Transfers variable, most recentlky after fall was able to transfer back into w/c Wheelchair Management Type of Wheelchair manual Assessment Details Patient didn't bring own chair to PT today OP Gait Assessment Gait Gait Assistance Required: Standby Assistance Distance (Feet) 63 Assistive Devices Assistive Device Front Wheeled Walker Orthotic/Prosthetic Devices or Brace: No Gait Deviations General Gait Pattern Decreased Feet Clearance Factors Limiting Gait Function Factors Limiting Gait Function Abnormal Tonal Influences, Decreased Strength,Poor Balance Stair Climbing Evaluation Comments Stair Climbing Comments patient unable PT-OP-H Neuro Start: 05/20/21 17:44 Freq: Status: Active Protocol: Document 05/21/21 14:32 SAK (Rec: 05/21/21 17:31 SAK [id number]) Sensation Evaluation Gross Sensation Gross Sensation Left LE Impaired,Right LE Impaired Sensation Description Paresthesia Comments Summary Comments poor proprioception bilateral LE's; patient reports some better when walks barefoot at home, but has difficulty knowing where her feet are in space. Coordination Evaluation Comments Coordination Comments decreased speed and accuracy of movement bilateral LE's right greater than left PT-OP-M Strength Start: 05/20/21 17:44 Freq: Status: Active Protocol: Document 05/21/21 14:32 [facility] (Rec: 05/21/21 17:31 [facility] [id number]) Hip Strength Hip Manual Muscle Testing Left Flexion (L2) 4 Good Extension (S1) 4- Good- Abduction 4- Good- Adduction 4 Good External Rotation 4- Good- Internal Rotation 4- Good- Right Flexion (L2) 4- Good- Extension (S1) 3+ Fair+ Abduction 3+ Fair+ Adduction 4- Good- External Rotation 3+ Fair+ Internal Rotation 4- Good- Knee Strength Knee Manual Muscle Testing Left Flexion (S2) 4+ Good+ Extension (L3) 4 Good Right Flexion (S2) 4 Good Extension (L3) 4- Good- Ankle/Foot Strength Ankle and Foot Manual Muscle Testing Left Dorsiflexion (L4) 4 Good Plantarflexion (S1) 4+ Good+ Inversion 4 Good Eversion (S1) 4+ Good+ Right Dorsiflexion (L4) 4- Good- Plantarflexion (S1) 4 Good Inversion 3+ Fair+ Eversion (S1) 4- Good- PT-OP-Q Treatments Start: 05/20/21 17:44 Freq: Status: Active Protocol: Document 06/24/22 14:33 [facility] (Rec: 06/24/22 15:18 [facility] [id number]) Gym Equipment Cable Column (Body Solid) Row Details Row Resistance 10# Reps/Time 15x1, 10x1 Shuttle Recovery Bilateral Squats Details Squats with manual support to ankles and knees Resistance 75# (2 new bands) Shuttle Recovery Platform Stable Reps/Time 15x2 good slow and controlled - R ankle unsteady EV x1 instance. Therapeutic Ball heelslide Ball Size/Color 65 cm ball Body Position Hooklying Reps/Duration 10x heel dig Ball Size/Color 65 cm green Reps/Duration 10x LTR Ball Size/Color 65 cm green Body Position Hooklying Reps/Duration 10x Therapeutic Exercises Supine Exercises crunch Reps/Minutes 10x Gait Training Gait Activity Walking with walker Description Walking with FWW Device Used FWW Level of Assistance CGA at GB, w/c behind. Surface Level Distance/Duration 97 ft(start of treatment) Treatment Focus LE WB gait, stride, foot clearance Comments no seated rests. PT-OP-S Aquatic Treatment Start: 05/20/21 17:44 Freq: Status: Active Protocol: Document 02/18/22 14:22 [facility] (Rec: 02/18/22 14:31 [facility] [id number]) Aquatics Treatment Pool Entry/Exit Pool Entry/Exit Method Lift Assistance Standby Assistance Lower Extremity Exercises step-ups Details red boxes 8; 3 boxes in row Body Position Standing Equipment 8 boxes Reps/Duration 10x Comments chest to waist level Lower Extremity Stretches l/s, HS Equipment on wall, deep Reps/Duration 2x30 adductors Body Position Standing Water Level [place] Equipment wall Reps/Duration 2x45 B Upper Extremity Exercises HAB, HAD, B pull down Body Position Standing Water Level Neck Level Equipment med barbells Reps/Duration 10 chelle, 5x unil Comments emphasis core stability Spinal Exercises prone over beach ball Reps/Duration 2 min [place] Activities [place] Activities Bicycle,Bicycle Backwards, Cross Country,Hip Abduction/ Adduction Other Activities pendulum burpees: 10x fwd, 10x each side Equipment Lg belt, med BBs Duration 12 PT-OP-T Assessment and Plan Start: 05/20/21 17:44 Freq: Status: Active Protocol: Document 06/24/22 14:33 [facility] (Rec: 06/24/22 15:18 [facility] [id number]) Physical Therapy Assessment Goals Five Impairment inadequate HEP Short Term Goal (STG) Patient will be instructed in appropriate HEP for purposes of strengthening and balance training 05/20/22: reviewed HEP: seated HS curl, LAQ, STS, rows, shld ext, pull downs, family member anchors due to no door to put into (have barn doors). 05/28/22: GOAL MET. STG Duration GOAL MET Intermediate Goal (LTG) Patient to be independent in HEP and/or community exercise program for long-term strengthening and balance training 05/28/22: goal progress 06/24/22: good goal progress, limited recently due to mother 's illness LTG Duration 06/16/22 Four Impairment LE weakness Impairment 5x sit to stand test 17 sec 10/15/21: improved to 15 sec with slight dec use of hands 12/08/21: unable to assess today due to session in pool, reporting more difficulty with increased need to use hands 03/18/22: goal met Short Term Goal (STG) 5x sit to stand test 17 sec 10/15/21: improved to 15 sec with slight dec use of hands 12/08/21: unable to assess today due to session in pool, reporting more difficulty with increased need to use hands 03/18/22: goal met STG Duration goal met Intermediate Goal (LTG) Improve 5x sit to stand test to no greater than 12 sec as measure of improved functional LE strength 03/18/22: improved to 14 sec 05/13/22: slow progression: 17 sec 05/28/22: 16 sec, done middle of session 06/24/22: 13 sec first of session LTG Duration 06/16/22 One Impairment lack of independence with her walking in her home [employer]ander [employer] Cell[employer] Machine Helper Goal (LTG) Patient will be able to ambulate safely for short distance ambulation in her home independently to improve her independence and quality of life. 10/15/21: Able to ambulate very short distances for transfers , improved 12/08/21: Has improved to 60 ft . pt goal of gait 110 ft with FWW without legs giving way. 01/14/22: No further progression per small house; patient reports she will attempt further 03/18/22: 95 ft before needing to sit due to feeling weak in knees, UE fatiguing from holding body weight with FWW 05/13/22: progressing: Gait distance w/ bariatric FWW and wc follow 125 ft. Walking about 10-70 ft in house clear pathway 5/7 days a week with aunt following with wc. 05/28/22: improved from last session, LE cramping difficulty affecting ability to walk and caregiver comfort level with assisting 71 ft today with bariatric FWW with w/c follow. Sees neurologist soon. 06/24/22: 97 ft first of treatment LTG Duration 06/16/22 Two Impairment Decreased gait and balance ability Impairment Tinetti gait and balance assessment 11/16 indicating patient at high risk for falls 10/15/21: unable to retest as at pool today, patient reporting improved balance in sitting when reaching for objects, uncertain standing as using walker and very short distances Activities-specific Balance Confidence (ABC) scale 14% 12/08/21: again unable to assess as at pool but now able to stand on 1 foot in shallow water without UE support max 10 sec right and 7 sec left ( previously unable without UE support) 01/14/22: SLS 10 sec chelle in chest level water 06/24/22: Tinetti Short Term Goal (STG) Tinetti gait and balance assessment 11/16 indicating patient at high risk for falls 10/15/21: unable to retest as at pool today, patient reporting improved balance in sitting when reaching for objects, uncertain standing as using walker and very short distances Activities-specific Balance Confidence (ABC) scale 14% 12/08/21: again unable to assess as at pool but now able to stand on 1 foot in shallow water without UE support max 10 sec right and 7 sec left ( previously unable without UE support) 01/14/22: SLS 10 sec chelle in chest level water 05/13/22: Tinetti 02/1605/28/22: Had been noting some improvements in balance until recent difficulty with cramping/spasms in LE's. Tinetti not tested today. Bander And Cell[employer] Machine Helper Goal (LTG) Improve Tinetti gait and balance score to at least 15/ 28 to decrease patient risk for falls Improve ABC scale to at least 30% as measure of improved confidence in her mobility 03/18/22:Tinetti score improved to 10 ABC scale score: 13% 10/15/21: unable to retest as at pool today, patient reporting improved balance in sitting when reaching for objects, uncertain standing as using walker and very short distances Activities-specific Balance Confidence (ABC) scale 14% 12/08/21: again unable to assess as at pool but now able to stand on 1 foot in shallow water without UE support max 10 sec right and 7 sec left ( previously unable without UE support) 01/14/22: SLS 10 sec chelle in chest level water 05/13/22: Tinetti: 02/16, see scanned forms. ABC Scale: score 450 or 28% 06/24/22: Tinetti unchanged, ABC score unchanged. LTG Duration 06/16/22 Progress Towards Goals Progress Towards Goals Progressing Toward Goals Assessment Summary Assessment Gait distance with 6 min walk test improved, and time with 5x sit to stand improved. Progress toward goals, benefiting from PT. Physical Therapy Plan Frequency and Duration Frequency of Treatment 1x/Week Duration of treatment (weeks) 4 Plan of Care Start Date 06/24/22 Plan of Care End Date 07/24/22 Therapeutic Interventions Therapeutic Interventions Aquatic Therapy,Balance Training,Home Exercise Program ,Neuromuscular Re-education, Patient/Caregiver Education, Self-Care/Home Management, Therapeutic Activities, Therapeutic Exercises Next Visit Focus/Plan Next Note Type Treatment Note Next Visit Plan Continue progression of ther ex, therapeutic activities, tstrengthening, gait training as tolerated. Progress toward independent HEP and self management.
--- NOTE | 2022-06-24 16:58 | PT.OPPOC ---
Physical, Occupational & Speech Therapy At [facility] Current Diagnoses Multiple sclerosis (06/24/22) Paraplegia, incomplete (06/24/22) Visit Care Team Role Provider Type Rehan Zacarias MD Family Provider Physician Primary Care Provider Specialty: Internal Medicine Address: [address] [place] [address], [address], [place], [address] Email: [email or web address] Rufino Umaña MD Attending Provider Non-Staff Referring Provider Specialty: Psychiatry Address: [address] [place] [address], [address], [place], [address] Email: Plan Of Care PT-OP-T Assessment and Plan Start: 05/20/21 17:44 Freq: Status: Active Protocol: Document 06/24/22 14:33 SAK (Rec: 06/24/22 15:18 SAK [id number]) Physical Therapy Assessment Goals Five Impairment inadequate HEP Short Term Goal (STG) Patient will be instructed in appropriate HEP for purposes of strengthening and balance training 05/20/22: reviewed HEP: seated HS curl, LAQ, STS, rows, shld ext, pull downs, family member anchors due to no door to put into (have barn doors). 05/28/22: GOAL MET. STG Duration GOAL MET Blueprint Maker Goal (LTG) Patient to be independent in HEP and/or community exercise program for long-term strengthening and balance training 05/28/22: goal progress 06/24/22: good goal progress, limited recently due to mother 's illness LTG Duration 06/16/22 Four Impairment LE weakness Impairment 5x sit to stand test 17 sec 10/15/21: improved to 15 sec with slight dec use of hands 12/08/21: unable to assess today due to session in pool, reporting more difficulty with increased need to use hands 03/18/22: goal met Short Term Goal (STG) 5x sit to stand test 17 sec 10/15/21: improved to 15 sec with slight dec use of hands 12/08/21: unable to assess today due to session in pool, reporting more difficulty with increased need to use hands 03/18/22: goal met STG Duration goal met Group Home Goal (LTG) Improve 5x sit to stand test to no greater than 12 sec as measure of improved functional LE strength 03/18/22: improved to 14 sec 05/13/22: slow progression: 17 sec 05/28/22: 16 sec, done middle of session 06/24/22: 13 sec first of session LTG Duration 06/16/22 One Impairment lack of independence with her walking in her home Group Home Goal (LTG) Patient will be able to ambulate safely for short distance ambulation in her home independently to improve her independence and quality of life. 10/15/21: Able to ambulate very short distances for transfers , improved 12/08/21: Has improved to 60 ft . pt goal of gait 110 ft with FWW without legs giving way. 01/14/22: No further progression per small house; patient reports she will attempt further 03/18/22: 95 ft before needing to sit due to feeling weak in knees, UE fatiguing from holding body weight with FWW 05/13/22: progressing: Gait distance w/ bariatric FWW and wc follow 125 ft. Walking about 10-70 ft in house clear pathway 5/7 days a week with aunt following with wc. 05/28/22: improved from last session, LE cramping difficulty affecting ability to walk and caregiver comfort level with assisting 71 ft today with bariatric FWW with w/c follow. Sees neurologist soon. 06/24/22: 97 ft first of treatment LTG Duration 06/16/22 Two Impairment Decreased gait and balance ability Impairment Tinetti gait and balance assessment 11/16 indicating patient at high risk for falls 10/15/21: unable to retest as at pool today, patient reporting improved balance in sitting when reaching for objects, uncertain standing as using walker and very short distances Activities-specific Balance Confidence (ABC) scale 14% 12/08/21: again unable to assess as at pool but now able to stand on 1 foot in shallow water without UE support max 10 sec right and 7 sec left ( previously unable without UE support) 01/14/22: SLS 10 sec chelle in chest level water 06/24/22: Tinetti Short Term Goal (STG) Tinetti gait and balance assessment 11/16 indicating patient at high risk for falls 10/15/21: unable to retest as at pool today, patient reporting improved balance in sitting when reaching for objects, uncertain standing as using walker and very short distances Activities-specific Balance Confidence (ABC) scale 14% 12/08/21: again unable to assess as at pool but now able to stand on 1 foot in shallow water without UE support max 10 sec right and 7 sec left ( previously unable without UE support) 01/14/22: SLS 10 sec chelle in chest level water 05/13/22: Tinetti 02/1605/28/22: Had been noting some improvements in balance until recent difficulty with cramping/spasms in LE's. Tinetti not tested today. Group Home Goal (LTG) Improve Tinetti gait and balance score to at least 15/ 28 to decrease patient risk for falls Improve ABC scale to at least 30% as measure of improved confidence in her mobility 03/18/22:Tinetti score improved to 10 ABC scale score: 13% 10/15/21: unable to retest as at pool today, patient reporting improved balance in sitting when reaching for objects, uncertain standing as using walker and very short distances Activities-specific Balance Confidence (ABC) scale 14% 12/08/21: again unable to assess as at pool but now able to stand on 1 foot in shallow water without UE support max 10 sec right and 7 sec left ( previously unable without UE support) 01/14/22: SLS 10 sec chelle in chest level water 05/13/22: Tinetti: 02/16, see scanned forms. ABC Scale: score 450 or 28% 06/24/22: Tinetti unchanged, ABC score unchanged. LTG Duration 06/16/22 Progress Towards Goals Progress Towards Goals Progressing Toward Goals Assessment Summary Assessment Gait distance with 6 min walk test improved, and time with 5x sit to stand improved. Progress toward goals, benefiting from PT. Physical Therapy Plan Frequency and Duration Frequency of Treatment 1x/Week Duration of treatment (weeks) 4 Plan of Care Start Date 06/24/22 Plan of Care End Date 07/24/22 Therapeutic Interventions Therapeutic Interventions Aquatic Therapy,Balance Training,Home Exercise Program ,Neuromuscular Re-education, Patient/Caregiver Education, Self-Care/Home Management, Therapeutic Activities, Therapeutic Exercises Next Visit Focus/Plan Next Note Type Treatment Note Next Visit Plan Continue progression of ther ex, therapeutic activities, tstrengthening, gait training as tolerated. Progress toward independent HEP and self management. Plan of Care Dates Plan of Care Start Date 06/24/22 Plan of Care End Date 07/24/22 Electronically Signed by: Bertha Redding, PT 06/25/22 [id number] If you are in agreement with this Plan of Care, please return a signed and dated copy. I have reviewed this Plan of Care and certify that the skilled therapy services above are required to meet the patient?s needs. Physician Signature Date Printed Name and Credentials Clinical Instructor Signature Printed Name and Credentials
--- NOTE | 2022-06-25 16:57 | PT.OTN ---
Current Diagnoses Multiple sclerosis (06/24/22) Paraplegia, incomplete (06/24/22) Physical Therapy Treatment Note PT-OP-A Visit Information Start: 05/20/21 17:44 Freq: Status: Active Protocol: Document 06/24/22 14:33 SAK (Rec: 06/24/22 15:18 [facility] [id number]) Out-Patient Physical Therapy Visit Information Visit Information Visit Type Treatment Note Visit Start Time 14:33 Visit Stop Time 15:18 Total Visit Minutes 45 Visit Number 26 Evaluation Information Evaluation Date 05/21/21 Precautions Precautions esophageal stenosis negative response to overheating HTN related to medications, being weaned off and will start a new medication PT-OP-B Current Condition Start: 05/20/21 17:44 Freq: Status: Active Protocol: Document 05/21/21 14:32 SAK (Rec: 05/21/21 15:20 SAK [id number]) Current Condition History of Current Condition Onset Date 2 years Current Complaints MS with LE weakness right greater than left History of Current Condition Patient previously did land- based PT for MS. Now referred for aquatic PT. Main c/o are LE weakness, difficulty ambulating; 120' max with Fww needs w/c behind in case LE's give way, and balance difficulty. Doing HEP fairly consistently but not as much as I should. Lives in downstairs apartment, Aunt lives above and comes down to assist with exercises. Patient able to do most self- care by herself with some set- up assist from Aunt. Also c/ o tightness in LE's especially quads as well as cramping and right foot going out to the side with gait. Can't feel where her feet are due to loss of sensation in LE's. Fell 1x this month from sitting while reaching. Was able to transfer back to chair. Only walks when has help. Prior Treatments and Tests Land-based PT Future Testing and Treatments Planned none at this time. 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 Hobbies Unable to access the stage or green room with w/c. Personal Factors Other Personal Factors That May Effect assisted to appointments by Therapy/Recovery aunt PT-OP-C Subjective Start: 05/20/21 17:44 Freq: Status: Active Protocol: Document 06/10/22 15:20 SAK (Rec: 06/10/22 16:18 SAK [id number]) OP-PT Subjective Patient Comments Patient Comments Saw neurologist, only change was new medication for bladder control. PT-OP-D Balance Start: 05/20/21 17:44 Freq: Status: Active Protocol: Document 05/13/22 12:12 SP (Rec: 05/13/22 13:02 SP [id number]) Tinetti Balance Assessment Scoring and Interpretation Interpretation of Scores High risk for falls(< 19) Tinetti Impairment Rating from Composite 60 to <80% Impaired (Score 6- Score 11) PT-OP-G Mobility & Gait Start: 05/20/21 17:44 Freq: Status: Active Protocol: Document 05/21/21 14:32 SAK (Rec: 05/21/21 17:31 SAK [id number]) OP Mobility Evaluation Bed Mobility Rolling indep Supine to and from Sit indep Transfers Sit to Stand indep Bed to Chair Transfers indep Floor Transfers variable, most recentlky after fall was able to transfer back into w/c Wheelchair Management Type of Wheelchair manual Assessment Details Patient didn't bring own chair to PT today OP Gait Assessment Gait Gait Assistance Required: Standby Assistance Distance (Feet) 63 Assistive Devices Assistive Device Front Wheeled Walker Orthotic/Prosthetic Devices or Brace: No Gait Deviations General Gait Pattern Decreased Feet Clearance Factors Limiting Gait Function Factors Limiting Gait Function Abnormal Tonal Influences, Decreased Strength,Poor Balance Stair Climbing Evaluation Comments Stair Climbing Comments patient unable PT-OP-H Neuro Start: 05/20/21 17:44 Freq: Status: Active Protocol: Document 05/21/21 14:32 SAK (Rec: 05/21/21 17:31 SAK [id number]) Sensation Evaluation Gross Sensation Gross Sensation Left LE Impaired,Right LE Impaired Sensation Description Paresthesia Comments Summary Comments poor proprioception bilateral LE's; patient reports some better when walks barefoot at home, but has difficulty knowing where her feet are in space. Coordination Evaluation Comments Coordination Comments decreased speed and accuracy of movement bilateral LE's right greater than left PT-OP-M Strength Start: 05/20/21 17:44 Freq: Status: Active Protocol: Document 05/21/21 14:32 [facility] (Rec: 05/21/21 17:31 [facility] [id number]) Hip Strength Hip Manual Muscle Testing Left Flexion (L2) 4 Good Extension (S1) 4- Good- Abduction 4- Good- Adduction 4 Good External Rotation 4- Good- Internal Rotation 4- Good- Right Flexion (L2) 4- Good- Extension (S1) 3+ Fair+ Abduction 3+ Fair+ Adduction 4- Good- External Rotation 3+ Fair+ Internal Rotation 4- Good- Knee Strength Knee Manual Muscle Testing Left Flexion (S2) 4+ Good+ Extension (L3) 4 Good Right Flexion (S2) 4 Good Extension (L3) 4- Good- Ankle/Foot Strength Ankle and Foot Manual Muscle Testing Left Dorsiflexion (L4) 4 Good Plantarflexion (S1) 4+ Good+ Inversion 4 Good Eversion (S1) 4+ Good+ Right Dorsiflexion (L4) 4- Good- Plantarflexion (S1) 4 Good Inversion 3+ Fair+ Eversion (S1) 4- Good- PT-OP-Q Treatments Start: 05/20/21 17:44 Freq: Status: Active Protocol: Document 06/24/22 14:33 [facility] (Rec: 06/24/22 15:18 [facility] [id number]) Gym Equipment Cable Column (Body Solid) Row Details Row Resistance 10# Reps/Time 15x1, 10x1 Shuttle Recovery Bilateral Squats Details Squats with manual support to ankles and knees Resistance 75# (2 new bands) Shuttle Recovery Platform Stable Reps/Time 15x2 good slow and controlled - R ankle unsteady EV x1 instance. Therapeutic Ball heelslide Ball Size/Color 65 cm ball Body Position Hooklying Reps/Duration 10x heel dig Ball Size/Color 65 cm green Reps/Duration 10x LTR Ball Size/Color 65 cm green Body Position Hooklying Reps/Duration 10x Therapeutic Exercises Supine Exercises crunch Reps/Minutes 10x Gait Training Gait Activity Walking with walker Description Walking with FWW Device Used FWW Level of Assistance CGA at GB, w/c behind. Surface Level Distance/Duration 97 ft(start of treatment) Treatment Focus LE WB gait, stride, foot clearance Comments no seated rests. PT-OP-S Aquatic Treatment Start: 05/20/21 17:44 Freq: Status: Active Protocol: Document 02/18/22 14:22 [facility] (Rec: 02/18/22 14:31 [facility] [id number]) Aquatics Treatment Pool Entry/Exit Pool Entry/Exit Method Lift Assistance Standby Assistance Lower Extremity Exercises step-ups Details red boxes 8; 3 boxes in row Body Position Standing Equipment 8 boxes Reps/Duration 10x Comments chest to waist level Lower Extremity Stretches l/s, HS Equipment on wall, deep Reps/Duration 2x30 adductors Body Position Standing Water Level [place] Equipment wall Reps/Duration 2x45 B Upper Extremity Exercises HAB, HAD, B pull down Body Position Standing Water Level Neck Level Equipment med barbells Reps/Duration 10 chelle, 5x unil Comments emphasis core stability Spinal Exercises prone over beach ball Reps/Duration 2 min [place] Activities [place] Activities Bicycle,Bicycle Backwards, Cross [place],Hip Abduction/ Adduction Other Activities pendulum burpees: 10x fwd, 10x each side Equipment Lg belt, med BBs Duration 12 PT-OP-T Assessment and Plan Start: 05/20/21 17:44 Freq: Status: Active Protocol: Document 06/24/22 14:33 [facility] (Rec: 06/24/22 15:18 [facility] [id number]) Physical Therapy Assessment Goals Five Impairment inadequate HEP Short Term Goal (STG) Patient will be instructed in appropriate HEP for purposes of strengthening and balance training 05/20/22: reviewed HEP: seated HS curl, LAQ, STS, rows, shld ext, pull downs, family member anchors due to no door to put into (have barn doors). 05/28/22: GOAL MET. STG Duration GOAL MET Intermediate Goal (LTG) Patient to be independent in HEP and/or community exercise program for long-term strengthening and balance training 05/28/22: goal progress 06/24/22: good goal progress, limited recently due to mother 's illness LTG Duration 06/16/22 Four Impairment LE weakness Impairment 5x sit to stand test 17 sec 10/15/21: improved to 15 sec with slight dec use of hands 12/08/21: unable to assess today due to session in pool, reporting more difficulty with increased need to use hands 03/18/22: goal met Short Term Goal (STG) 5x sit to stand test 17 sec 10/15/21: improved to 15 sec with slight dec use of hands 12/08/21: unable to assess today due to session in pool, reporting more difficulty with increased need to use hands 03/18/22: goal met STG Duration goal met Intermediate Goal (LTG) Improve 5x sit to stand test to no greater than 12 sec as measure of improved functional LE strength 03/18/22: improved to 14 sec 05/13/22: slow progression: 17 sec 05/28/22: 16 sec, done middle of session 06/24/22: 13 sec first of session LTG Duration 06/16/22 One Impairment lack of independence with her walking in her home Terminal Makeup Operator Goal (LTG) Patient will be able to ambulate safely for short distance ambulation in her home independently to improve her independence and quality of life. 10/15/21: Able to ambulate very short distances for transfers , improved 12/08/21: Has improved to 60 ft . pt goal of gait 110 ft with FWW without legs giving way. 01/14/22: No further progression per small house; patient reports she will attempt further 03/18/22: 95 ft before needing to sit due to feeling weak in knees, UE fatiguing from holding body weight with FWW 05/13/22: progressing: Gait distance w/ bariatric FWW and wc follow 125 ft. Walking about 10-70 ft in house clear pathway 5/7 days a week with aunt following with wc. 05/28/22: improved from last session, LE cramping difficulty affecting ability to walk and caregiver comfort level with assisting 71 ft today with bariatric FWW with w/c follow. Sees neurologist soon. 06/24/22: 97 ft first of treatment LTG Duration 06/16/22 Two Impairment Decreased gait and balance ability Impairment Tinetti gait and balance assessment 11/16 indicating patient at high risk for falls 10/15/21: unable to retest as at pool today, patient reporting improved balance in sitting when reaching for objects, uncertain standing as using walker and very short distances Activities-specific Balance Confidence (ABC) scale 14% 12/08/21: again unable to assess as at pool but now able to stand on 1 foot in shallow water without UE support max 10 sec right and 7 sec left ( previously unable without UE support) 01/14/22: SLS 10 sec chelle in chest level water 06/24/22: Tinetti Short Term Goal (STG) Tinetti gait and balance assessment 11/16 indicating patient at high risk for falls 10/15/21: unable to retest as at pool today, patient reporting improved balance in sitting when reaching for objects, uncertain standing as using walker and very short distances Activities-specific Balance Confidence (ABC) scale 14% 12/08/21: again unable to assess as at pool but now able to stand on 1 foot in shallow water without UE support max 10 sec right and 7 sec left ( previously unable without UE support) 01/14/22: SLS 10 sec chelle in chest level water 05/13/22: Tinetti 02/1605/28/22: Had been noting some improvements in balance until recent difficulty with cramping/spasms in LE's. Tinetti not tested today. Terminal Makeup Operator Goal (LTG) Improve Tinetti gait and balance score to at least 15/ 28 to decrease patient risk for falls Improve ABC scale to at least 30% as measure of improved confidence in her mobility 03/18/22:Tinetti score improved to 10 ABC scale score: 13% 10/15/21: unable to retest as at pool today, patient reporting improved balance in sitting when reaching for objects, uncertain standing as using walker and very short distances Activities-specific Balance Confidence (ABC) scale 14% 12/08/21: again unable to assess as at pool but now able to stand on 1 foot in shallow water without UE support max 10 sec right and 7 sec left ( previously unable without UE support) 01/14/22: SLS 10 sec chelle in chest level water 05/13/22: Tinetti: 02/16, see scanned forms. ABC Scale: score 450 or 28% 06/24/22: Tinetti unchanged, ABC score unchanged. LTG Duration 06/16/22 Progress Towards Goals Progress Towards Goals Progressing Toward Goals Assessment Summary Assessment Gait distance with 6 min walk test improved, and time with 5x sit to stand improved. Progress toward goals, benefiting from PT. Physical Therapy Plan Frequency and Duration Frequency of Treatment 1x/Week Duration of treatment (weeks) 4 Plan of Care Start Date 06/24/22 Plan of Care End Date 07/24/22 Therapeutic Interventions Therapeutic Interventions Aquatic Therapy,Balance Training,Home Exercise Program ,Neuromuscular Re-education, Patient/Caregiver Education, Self-Care/Home Management, Therapeutic Activities, Therapeutic Exercises Next Visit Focus/Plan Next Note Type Treatment Note Next Visit Plan Continue progression of ther ex, therapeutic activities, tstrengthening, gait training as tolerated. Progress toward independent HEP and self management.
--- NOTE | 2022-07-01 16:24 | PT.OTN ---
Current Diagnoses Multiple sclerosis (07/01/22) Paraplegia, incomplete (07/01/22) Physical Therapy Treatment Note PT-OP-A Visit Information Start: 05/20/21 17:44 Freq: Status: Active Protocol: Document 07/01/22 09:49 SAK (Rec: 07/01/22 10:33 SAK [id number]) Out-Patient Physical Therapy Visit Information Visit Information Visit Type Treatment Note Visit Start Time 09:50 Visit Stop Time 15:18 Total Visit Minutes 40 Visit Number 27 Evaluation Information Evaluation Date 05/21/21 Precautions Precautions esophageal stenosis negative response to overheating HTN related to medications, being weaned off and will start a new medication PT-OP-B Current Condition Start: 05/20/21 17:44 Freq: Status: Active Protocol: Document 05/21/21 14:32 SAK (Rec: 05/21/21 15:20 SAK [id number]) Current Condition History of Current Condition Onset Date 2 years Current Complaints MS with LE weakness right greater than left History of Current Condition Patient previously did land- based PT for MS. Now referred for aquatic PT. Main c/o are LE weakness, difficulty ambulating; 120' max with Fww needs w/c behind in case LE's give way, and balance difficulty. Doing HEP fairly consistently but not as much as I should. Lives in downstairs apartment, Aunt lives above and comes down to assist with exercises. Patient able to do most self- care by herself with some set- up assist from Aunt. Also c/ o tightness in LE's especially quads as well as cramping and right foot going out to the side with gait. Can't feel where her feet are due to loss of sensation in LE's. Fell 1x this month from sitting while reaching. Was able to transfer back to chair. Only walks when has help. Prior Treatments and Tests Land-based PT Future Testing and Treatments Planned none at this time. 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 Hobbies Unable to access the stage or green room with w/c. Personal Factors Other Personal Factors That May Effect assisted to appointments by Therapy/Recovery aunt PT-OP-C Subjective Start: 05/20/21 17:44 Freq: Status: Active Protocol: Document 07/01/22 09:49 SAK (Rec: 07/01/22 10:33 SAK [id number]) OP-PT Subjective Patient Comments Patient Comments Noting difficulty pushing self around in w/c beyond in her house; having eval for power wheelchair at [facility] PT-OP-D Balance Start: 05/20/21 17:44 Freq: Status: Active Protocol: Document 05/13/22 12:12 SP (Rec: 05/13/22 13:02 SP [id number]) Tinetti Balance Assessment Scoring and Interpretation Interpretation of Scores High risk for falls(< 19) Tinetti Impairment Rating from Composite 60 to <80% Impaired (Score 6- Score 11) PT-OP-G Mobility & Gait Start: 05/20/21 17:44 Freq: Status: Active Protocol: Document 05/21/21 14:32 SAK (Rec: 05/21/21 17:31 SAK [id number]) OP Mobility Evaluation Bed Mobility Rolling indep Supine to and from Sit indep Transfers Sit to Stand indep Bed to Chair Transfers indep Floor Transfers variable, most recentlky after fall was able to transfer back into w/c Wheelchair Management Type of Wheelchair manual Assessment Details Patient didn't bring own chair to PT today OP Gait Assessment Gait Gait Assistance Required: Standby Assistance Distance (Feet) 63 Assistive Devices Assistive Device Front Wheeled Walker Orthotic/Prosthetic Devices or Brace: No Gait Deviations General Gait Pattern Decreased Feet Clearance Factors Limiting Gait Function Factors Limiting Gait Function Abnormal Tonal Influences, Decreased Strength,Poor Balance Stair Climbing Evaluation Comments Stair Climbing Comments patient unable PT-OP-H Neuro Start: 05/20/21 17:44 Freq: Status: Active Protocol: Document 05/21/21 14:32 SAK (Rec: 05/21/21 17:31 SAK [id number]) Sensation Evaluation Gross Sensation Gross Sensation Left LE Impaired,Right LE Impaired Sensation Description Paresthesia Comments Summary Comments poor proprioception bilateral LE's; patient reports some better when walks barefoot at home, but has difficulty knowing where her feet are in space. Coordination Evaluation Comments Coordination Comments decreased speed and accuracy of movement bilateral LE's right greater than left PT-OP-M Strength Start: 05/20/21 17:44 Freq: Status: Active Protocol: Document 05/21/21 14:32 [facility] (Rec: 05/21/21 17:31 [facility] [id number]) Hip Strength Hip Manual Muscle Testing Left Flexion (L2) 4 Good Extension (S1) 4- Good- Abduction 4- Good- Adduction 4 Good External Rotation 4- Good- Internal Rotation 4- Good- Right Flexion (L2) 4- Good- Extension (S1) 3+ Fair+ Abduction 3+ Fair+ Adduction 4- Good- External Rotation 3+ Fair+ Internal Rotation 4- Good- Knee Strength Knee Manual Muscle Testing Left Flexion (S2) 4+ Good+ Extension (L3) 4 Good Right Flexion (S2) 4 Good Extension (L3) 4- Good- Ankle/Foot Strength Ankle and Foot Manual Muscle Testing Left Dorsiflexion (L4) 4 Good Plantarflexion (S1) 4+ Good+ Inversion 4 Good Eversion (S1) 4+ Good+ Right Dorsiflexion (L4) 4- Good- Plantarflexion (S1) 4 Good Inversion 3+ Fair+ Eversion (S1) 4- Good- PT-OP-Q Treatments Start: 05/20/21 17:44 Freq: Status: Active Protocol: Document 07/01/22 09:49 [facility] (Rec: 07/01/22 10:33 [facility] [id number]) Gym Equipment Cable Column (Body Solid) shoulder ext Resistance 10# Reps/Time 10x2 Row Details Row Resistance 10# Reps/Time 15x1, 10x1 Triceps Press Down Details Pressing down with arms (Scap depression) Resistance 10# Reps/Time 10x 2 Trunk rotation Details Trunk rot, cable just below breast hgt Resistance 10 Reps/Time 10x 3 L, 10 x2 R. V cuing for breathing Shuttle Recovery Unilateral Squats Resistance 37 Shuttle Recovery Platform Stable Reps/Time 10x2 Bilateral Squats Details Squats with manual support to ankles and knees Resistance 75# (2 new bands) Shuttle Recovery Platform Stable Reps/Time 15x2 good slow and controlled - R ankle unsteady EV x1 instance. Therapeutic Ball heelslide Ball Size/Color 65 cm ball Body Position Hooklying Reps/Duration 10x Comments Dycem under legs heel dig Ball Size/Color 65 cm green Reps/Duration 10x LTR Ball Size/Color 65 cm green Body Position Hooklying Reps/Duration 10x Therapeutic Exercises Supine Exercises heel slide Equipment Used 65 cm ball Reps/Minutes 10x LTR Equipment Used 65 cm ball crunch Reps/Minutes 10x bridges Reps/Minutes 15x Comments therapy ball LE stretches Supine Exercise Name HS, SKTC, ITBand, piriformis Reps/Minutes 2x30 Comments manual Sitting Exercises seated corae Equipment Used yellow dynadisc under bottom, blue under feet Reps/Minutes 3 min Gait Training Gait Activity Walking with walker Description Walking with FWW Device Used FWW Level of Assistance CGA at GB, w/c behind. Surface Level Distance/Duration 137 ft(start of treatment) Treatment Focus LE WB gait, stride, foot clearance Comments no seated rests. Neuro Re-Education Treatment Balance Activities Standing in // bars Surface Level Comments Stood: 1.5 min, 1 min, , secs with short sit rests between standing L side gives out first PT-OP-S Aquatic Treatment Start: 05/20/21 17:44 Freq: Status: Active Protocol: Document 02/18/22 14:22 [facility] (Rec: 02/18/22 14:31 [facility] [id number]) Aquatics Treatment Pool Entry/Exit Pool Entry/Exit Method Lift Assistance Standby Assistance Lower Extremity Exercises step-ups Details red boxes 8; 3 boxes in row Body Position Standing Equipment 8 boxes Reps/Duration 10x Comments chest to waist level Lower Extremity Stretches l/s, HS Equipment on wall, deep Reps/Duration 2x30 adductors Body Position Standing Water Level Morganza Equipment wall Reps/Duration 2x45 B Upper Extremity Exercises HAB, HAD, B pull down Body Position Standing Water Level Neck Level Equipment med barbells Reps/Duration 10 chelle, 5x unil Comments emphasis core stability Spinal Exercises prone over beach ball Reps/Duration 2 min Morganza Activities Morganza Activities Bicycle,Bicycle Backwards, Cross Country,Hip Abduction/ Adduction Other Activities pendulum burpees: 10x fwd, 10x each side Equipment Lg belt, med BBs Duration 12 PT-OP-T Assessment and Plan Start: 05/20/21 17:44 Freq: Status: Active Protocol: Document 07/01/22 09:49 [facility] (Rec: 07/01/22 10:33 [facility] [id number]) Physical Therapy Assessment Goals Five Impairment inadequate HEP Short Term Goal (STG) Patient will be instructed in appropriate HEP for purposes of strengthening and balance training 05/20/22: reviewed HEP: seated HS curl, LAQ, STS, rows, shld ext, pull downs, family member anchors due to no door to put into (have barn doors). 05/28/22: GOAL MET. STG Duration GOAL MET Nursing Home Goal (LTG) Patient to be independent in [facility] and/or community exercise program for long-term strengthening and balance training 05/28/22: goal progress 06/24/22: good goal progress, limited recently due to mother 's illness LTG Duration 06/16/22 Four Impairment LE weakness Impairment 5x sit to stand test 17 sec 10/15/21: improved to 15 sec with slight dec use of hands 12/08/21: unable to assess today due to session in pool, reporting more difficulty with increased need to use hands 03/18/22: goal met Short Term Goal (STG) 5x sit to stand test 17 sec 10/15/21: improved to 15 sec with slight dec use of hands 12/08/21: unable to assess today due to session in pool, reporting more difficulty with increased need to use hands 03/18/22: goal met STG Duration goal met [employer] Goal (LTG) Improve 5x sit to stand test to no greater than 12 sec as measure of improved functional LE strength 03/18/22: improved to 14 sec 05/13/22: slow progression: 17 sec 05/28/22: 16 sec, done middle of session 06/24/22: 13 sec first of session LTG Duration 06/16/22 One Impairment lack of independence with her walking in her home Nursing Home Goal (LTG) Patient will be able to ambulate safely for short distance ambulation in her home independently to improve her independence and quality of life. 10/15/21: Able to ambulate very short distances for transfers , improved 12/08/21: Has improved to 60 ft . pt goal of gait 110 ft with FWW without legs giving way. 01/14/22: No further progression per small house; patient reports she will attempt further 03/18/22: 95 ft before needing to sit due to feeling weak in knees, UE fatiguing from holding body weight with FWW 05/13/22: progressing: Gait distance w/ bariatric FWW and wc follow 125 ft. Walking about 10-70 ft in house clear pathway 5/7 days a week with aunt following with wc. 05/28/22: improved from last session, LE cramping difficulty affecting ability to walk and caregiver comfort level with assisting 71 ft today with bariatric FWW with w/c follow. Sees neurologist soon. 06/24/22: 97 ft first of treatment LTG Duration 06/16/22 Two Impairment Decreased gait and balance ability Impairment Tinetti gait and balance assessment 11/16 indicating patient at high risk for falls 10/15/21: unable to retest as at [facility] today, patient reporting improved balance in sitting when reaching for objects, uncertain standing as using walker and very short distances Activities-specific Balance Confidence (ABC) scale 14% 12/08/21: again unable to assess as at pool but now able to stand on 1 foot in shallow water without UE support max 10 sec right and 7 sec left ( previously unable without UE support) 01/14/22: SLS 10 sec chelle in chest level water 06/24/22: Tinetti Short Term Goal (STG) Tinetti gait and balance assessment 11/16 indicating patient at high risk for falls 10/15/21: unable to retest as at [facility] today, patient reporting improved balance in sitting when reaching for objects, uncertain standing as using walker and very short distances Activities-specific Balance Confidence (ABC) scale 14% 12/08/21: again unable to assess as at pool but now able to stand on 1 foot in shallow water without UE support max 10 sec right and 7 sec left ( previously unable without UE support) 01/14/22: SLS 10 sec chelle in chest level water 05/13/22: Tinetti 02/1605/28/22: Had been noting some improvements in balance until recent difficulty with cramping/spasms in LE's. Tinetti not tested today. [employer] Goal (LTG) Improve Tinetti gait and balance score to at least 15/ 28 to decrease patient risk for falls Improve ABC scale to at least 30% as measure of improved confidence in her mobility 03/18/22:Tinetti score improved to 10 ABC scale score: 13% 10/15/21: unable to retest as at pool today, patient reporting improved balance in sitting when reaching for objects, uncertain standing as using walker and very short distances Activities-specific Balance Confidence (ABC) scale 14% 12/08/21: again unable to assess as at pool but now able to stand on 1 foot in shallow water without UE support max 10 sec right and 7 sec left ( previously unable without UE support) 01/14/22: SLS 10 sec chelle in chest level water 05/13/22: Tinetti: 02/16, see scanned forms. ABC Scale: score 450 or 28% 06/24/22: Tinetti unchanged, ABC score unchanged. LTG Duration 06/16/22 Assessment Summary Assessment improved walking distance by 40 ft today, increased standing time for standinb bal ex to 1.5 min with min UE support. Stressed importance of compliance to HEP for posterior shoulder and upper back strengthening and postural correction. Patient planning to have evaluation for power wheelchair. Physical Therapy Plan Frequency and Duration Frequency of Treatment 1x/Week Duration of treatment (weeks) 4 Plan of Care Start Date 06/24/22 Plan of Care End Date 07/24/22 Therapeutic Interventions Therapeutic Interventions Aquatic Therapy,Balance Training,Home Exercise Program ,Neuromuscular Re-education, Patient/Caregiver Education, Self-Care/Home Management, Therapeutic Activities, Therapeutic Exercises Next Visit Focus/Plan Next Note Type Treatment Note Next Visit Plan Continue progression of ther ex, therapeutic activities, tstrengthening, gait training as tolerated. Progress toward independent HEP and self management.
--- NOTE | 2022-09-14 16:30 | PT.OPDS ---
Current Diagnoses Multiple sclerosis (07/01/22) Paraplegia, incomplete (07/01/22) Visit Care Team Role Provider Type Rehan Zacarias MD Family Provider Physician Primary Care Provider Specialty: Internal Medicine Address: [address] [place] [address] [address], [place], [address] Email: [email or web address] Rufino Umaña MD Attending Provider Non-Staff Referring Provider Specialty: Psychiatry Address: [address] [place] [address], [address], [place], [address] Email: Visit Number Visit Number 27 Discharge Summary PT-OP-B Current Condition Start: 05/20/21 17:44 Freq: Status: Active Protocol: Document 05/21/21 14:32 [facility] (Rec: 05/21/21 15:20 [facility] [id number]) Current Condition History of Current Condition Onset Date 2 years Current Complaints MS with LE weakness right greater than left History of Current Condition Patient previously did land- based PT for MS. Now referred for aquatic PT. Main c/o are LE weakness, difficulty ambulating; 120' max with Fww needs w/c behind in case LE's give way, and balance difficulty. Doing HEP fairly consistently but not as much as I should. Lives in downstairs apartment, Aunt lives above and comes down to assist with exercises. Patient able to do most self- care by herself with some set- up assist from Aunt. Also c/ o tightness in LE's especially quads as well as cramping and right foot going out to the side with gait. Can't feel where her feet are due to loss of sensation in LE's. Fell 1x this month from sitting while reaching. Was able to transfer back to chair. Only walks when has help. Prior Treatments and Tests Land-based PT Future Testing and Treatments Planned none at this time. 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 Hobbies Unable to access the stage or green room with w/c. Personal Factors Other Personal Factors That May Effect assisted to appointments by Therapy/Recovery aunt PT-OP-C Subjective Start: 05/20/21 17:44 Freq: Status: Active Protocol: Document 07/01/22 09:49 [facility] (Rec: 07/01/22 10:33 SAK [id number]) OP-PT Subjective Patient Comments Patient Comments Noting difficulty pushing self around in w/c beyond in her house; having eval for power wheelchair at [facility] PT-OP-D Balance Start: 05/20/21 17:44 Freq: Status: Active Protocol: Document 05/13/22 12:12 SP (Rec: 05/13/22 13:02 SP [id number]) Tinetti Balance Assessment Scoring and Interpretation Interpretation of Scores High risk for falls(< 19) Tinetti Impairment Rating from Composite 60 to <80% Impaired (Score 6- Score 11) PT-OP-G Mobility & Gait Start: 05/20/21 17:44 Freq: Status: Active Protocol: Document 05/21/21 14:32 [facility] (Rec: 05/21/21 17:31 SAK [id number]) OP Mobility Evaluation Bed Mobility Rolling indep Supine to and from Sit indep Transfers Sit to Stand indep Bed to Chair Transfers indep Floor Transfers variable, most recentlky after fall was able to transfer back into w/c Wheelchair Management Type of Wheelchair manual Assessment Details Patient didn't bring own chair to PT today OP Gait Assessment Gait Gait Assistance Required: Standby Assistance Distance (Feet) 63 Assistive Devices Assistive Device Front Wheeled Walker Orthotic/Prosthetic Devices or Brace: No Gait Deviations General Gait Pattern Decreased Feet Clearance Factors Limiting Gait Function Factors Limiting Gait Function Abnormal Tonal Influences, Decreased Strength,Poor Balance Stair Climbing Evaluation Comments Stair Climbing Comments patient unable PT-OP-H Neuro Start: 05/20/21 17:44 Freq: Status: Active Protocol: Document 05/21/21 14:32 [facility] (Rec: 05/21/21 17:31 SAK [id number]) Sensation Evaluation Gross Sensation Gross Sensation Left LE Impaired,Right LE Impaired Sensation Description Paresthesia Comments Summary Comments poor proprioception bilateral LE's; patient reports some better when walks barefoot at home, but has difficulty knowing where her feet are in space. Coordination Evaluation Comments Coordination Comments decreased speed and accuracy of movement bilateral LE's right greater than left PT-OP-M Strength Start: 05/20/21 17:44 Freq: Status: Active Protocol: Document 05/21/21 14:32 [facility] (Rec: 05/21/21 17:31 [facility] [id number]) Hip Strength Hip Manual Muscle Testing Left Flexion (L2) 4 Good Extension (S1) 4- Good- Abduction 4- Good- Adduction 4 Good External Rotation 4- Good- Internal Rotation 4- Good- Right Flexion (L2) 4- Good- Extension (S1) 3+ Fair+ Abduction 3+ Fair+ Adduction 4- Good- External Rotation 3+ Fair+ Internal Rotation 4- Good- Knee Strength Knee Manual Muscle Testing Left Flexion (S2) 4+ Good+ Extension (L3) 4 Good Right Flexion (S2) 4 Good Extension (L3) 4- Good- Ankle/Foot Strength Ankle and Foot Manual Muscle Testing Left Dorsiflexion (L4) 4 Good Plantarflexion (S1) 4+ Good+ Inversion 4 Good Eversion (S1) 4+ Good+ Right Dorsiflexion (L4) 4- Good- Plantarflexion (S1) 4 Good Inversion 3+ Fair+ Eversion (S1) 4- Good- PT-OP-T Assessment and Plan Start: 05/20/21 17:44 Freq: Status: Active Protocol: Document 09/14/22 16:30 [facility] (Rec: 09/14/22 16:30 [facility] [id number]) Physical Therapy Plan Discharge Physical Therapy Discharge Comments POC . Will restart PT with new referral
== END 2022-09-29 07:23 | disposition home or self-care (01) ==
LOC: PHYS 09:45
PROVIDERS: Family Provider Student in an Organized Health Care Education/Training Program; PCP Student in an Organized Health Care Education/Training Program; Referring Provider Internal Medicine; Visit Provider Internal Medicine
DX: G35 Multiple sclerosis (principal); G82.22 Paraplegia, incomplete
CPT/HCPCS: 97110; 97112; 97113; 97116; 97140; 97162; 97530; 97535

== ENCOUNTER → 2023-02-26 14:51 | Outpatient (CLI) | payer MEDICARE, MEDICAID, SELFPAY ==
[2023-02-26 17:56] LABS: Appearance Urine UA CLOUDY; Bilirubin Urine UA NEGATIVE (NEGATIVE); Color Urine UA YELLOW; Glucose Urine UA NEGATIVE (Negative); Ketones Urine UA NEGATIVE (NEGATIVE); Leukocyte Esterase Urine UA 2+ (NEGATIVE); Nitrite Urine UA POSITIVE (Negative); Occult Blood Urine UA NEGATIVE (Negative); Protein Urine UA TRACE (Negative); Specific Gravity Urine UA >=1.030 (1.000-1.035)
[2023-02-26 18:10] LABS: pH Urine UA 5.5 (4.5-8.0)
[2023-02-26 18:26] LABS: Bacteria Urine Many (>30); RBC Urine None Seen (0-5/HPF); WBC Urine 30-100/HPF (0-5/HPF)
[2023-02-26 18:27] LABS: Culture Indicated Urine Specimen Cultured; Squamous Epithelial Cell Urine 10-30 /HPF (0-5/HPF); Transitional Epi Cells Urine 1-5/HPF (0-5/HPF)
== END ==
PROVIDERS: Family Provider Student in an Organized Health Care Education/Training Program; PCP Family Medicine; Referring Provider Family Medicine; Visit Provider Family Medicine
DX: N39.0 Urinary tract infection, site not specified (principal)
CPT/HCPCS: 81001; 87077; 87086; 87186

== ENCOUNTER → 2023-03-01 14:03 | Outpatient (CLI) | payer MEDICARE, MEDICAID, SELFPAY ==
--- NOTE | 2023-03-01 | DI.MG.S_ITS ---
BILATERAL DIGITAL SCREENING MAMMOGRAM 3D/2D WITH CAD: 03/01/2023 CLINICAL: Routine screening. Comparison is made to exams dated: 02/26/2022 mammogram, 02/06/2021 mammogram, and 12/04/2019 mammogram - [facility]. Both breasts are almost entirely fatty (category a/<25% glandular tissue). Current study was also evaluated with a Computer Aided Detection (CAD) system. There are benign calcifications in both breasts. No significant masses, calcifications, or other findings are seen in either breast. There has been no significant interval change. IMPRESSION: BENIGN There is no mammographic evidence of malignancy. A 1 year screening mammogram is recommended. Based on the Tyrer Cuzick model (a risk assessment model) the patient's lifetime risk is 6.3% and her 10 year risk is 1.1%. According to the ACR, ACS, and NCCN guidelines, an annual breast MRI exam along with mammogram is recommended if the patient's lifetime risk is 20% or greater. This exam was interpreted at Station ID: [id number]. NOTE: For mammograms, a report in lay terms will be sent to the patient. Approximately 15% of breast malignancies will not be visualized mammographically. In the management of a palpable breast mass, a negative mammogram must not discourage biopsy of a clinically suspicious lesion. Electronically Signed By: Digna garsia/jennifer:03/02/2023 16:16:39 letter sent: Normal Exam ACR BI-RADS Category 2: Benign Finding(s) [id number]
== END ==
PROVIDERS: Family Provider Student in an Organized Health Care Education/Training Program; PCP Family Medicine; Referring Provider Family Medicine; Visit Provider Family Medicine
DX: Z12.31 Encounter for screening mammogram for malignant neoplasm of breast (principal)
CPT/HCPCS: 77063; 77067

== ENCOUNTER 2024-02-15 13:45 | Outpatient (RCR) | payer MEDICARE, MEDICAID, SELFPAY ==
--- NOTE | 2022-09-24 09:06 | PT.OIE ---
Current Diagnoses Multiple sclerosis (09/24/22) Past Medical History (Last Updated 07/18/22 @ 11:01 by Rehan Zacarias MD) IUD (intrauterine device) in place Moderate mixed hyperlipidemia not requiring statin therapy Visit Care Team Role Provider Type Bart Doan MD Primary Care Provider Physician Specialty: Internal Medicine Pediatrics Address: [address] [place] [address], [address] Phone: Fax: Email: [email or web address] Rehan Zacarias MD Family Provider Physician Specialty: Internal Medicine Address: [address] [place] [address], [address], [address] Email: [email or web address] Rufino Umaña MD Attending Provider Non-Staff Referring Provider Specialty: Psychiatry Address: [address] [place] [address], [facility] [address], [address] Email: Physical Therapy Initial Evaluation PT-OP-A Visit Information Start: 09/24/22 09:30 Freq: Status: Active Protocol: Document 09/24/22 09:31 [facility] (Rec: 09/24/22 10:22 [facility] [id number]) Out-Patient Physical Therapy Visit Information Visit Information Visit Type Initial Evaluation Visit Start Time 09:30 Visit Stop Time 10:15 Total Visit Minutes 45 Visit Number 1 Evaluation Information Evaluation Date 09/24/22 Precautions Precautions MS, don't overfatigue, esophageal stenosis PT-OP-B Current Condition Start: 09/24/22 09:30 Freq: Status: Active Protocol: Document 09/24/22 09:31 [facility] (Rec: 09/24/22 10:22 [facility] [id number]) Current Condition History of Current Condition Onset Date March 2019 Current Complaints weakness due to MS, right shoulder pain, LBP History of Current Condition history MS with worsening weakness, as well as right shoulder pain (patient right handed). Patient has caregiver who assists her primarily with household tasks, HEP, walking. She uses a 4WW to walk short diestances (approx 30 feet) in the home, manual w /c for community mobility. No recent falls, but has history of falls. Reports was evaluated for power wheelchair recently but was denied. C/o right shoulder pain and tightness especially with reaching and propelling manual w/c. Well known to this PT for both land and aquatic- based PT. Prior Treatments and Tests prior PT; land and aquatic Future Testing and Treatments Planned nothing planned yet Treatment Goals Patient/Caregiver Goals improve core strength, decrease right shoulder pain, improve gait and balance Current Functional Impairments (Reported) Functional Limitations- ADL's asssisted PT-OP-C Subjective Start: 09/24/22 09:30 Freq: Status: Active Protocol: Document 09/24/22 09:31 [facility] (Rec: 09/24/22 10:22 [facility] [id number]) OP-PT Pain Assessment Pain Assessment Grid Paper Pain Assessment Grid Completed Yes Location right shoulder, LBP Intensity 3 Pain Behaviors Pain Behaviors Guarding,[place] PT-OP-D Balance Start: 09/24/22 09:30 Freq: Status: Active Protocol: Document 09/24/22 09:06 [facility] (Rec: 09/28/22 11:39 [facility] [id number]) Tinetti Balance Assessment Sitting Balance Sitting Balance Steady, safe Standing Balance Immediate Standing Balance Steady with support Turning Step Pattern Turning 360 Degrees Discontinuous steps Sitting Down Sitting Down Uses arms or unsteady Gait and Step Initiation of Gait Hesitancy, mult. attempts Right Foot Step Length Does not pass stance ft. Right Foot Step Height Does not clear floor Left Foot Step Length Does not pass stance foot Left Foot Step Height Does not clear floor Step Description Step Symmetry Step length appears equal Step Continuity Stopping or discontinuity Gait Description Path Description Mild/moderate deviation Trunk Description Marked sway or uses aide Walking Stance Heels apart Scoring and Interpretation Tinetti Composite Score (points) 5 PT-OP-E Functional Tests Start: 09/24/22 09:30 Freq: Status: Active Protocol: Document 09/24/22 09:06 [facility] (Rec: 09/28/22 11:39 [facility] [id number]) Functional Tests 2 Minute Walk Test Distance 127 Device Used 4WW PT-OP-G Mobility & Gait Start: 09/24/22 09:30 Freq: Status: Active Protocol: Document 09/24/22 09:06 [facility] (Rec: 09/28/22 11:39 [facility] [id number]) OP Mobility Evaluation Bed Mobility Supine to and from Sit indep Transfers Bed to Chair Transfers indep Car Transfers assisted Floor Transfers not performed OP Gait Assessment Gait Gait Assistance Required: Minimum Assistance Distance (Feet) 127 Assistive Devices Assistive Device Gait Belt,Front Wheeled Walker Orthotic/Prosthetic Devices or Brace: No Gait Deviations General Gait Pattern Decreased Stride Length, Decreased Feet Clearance, Flexed Trunk Factors Limiting Gait Function Factors Limiting Gait Function Abnormal Tonal Influences, Decreased Activity Tolerance, Decreased Strength,Pain Stair Climbing Evaluation Comments Stair Climbing Comments unable PT-OP-H Neuro Start: 09/24/22 09:30 Freq: Status: Active Protocol: Document 09/24/22 09:06 [facility] (Rec: 09/28/22 11:39 [facility] [id number]) Sensation Evaluation Gross Sensation Gross Sensation Left LE Impaired,Right LE Impaired,Trunk Impaired PT-OP-J Posture/Palpation/Skin Start: 09/24/22 09:30 Freq: Status: Active Protocol: Document 09/24/22 09:06 [facility] (Rec: 09/28/22 11:39 [facility] [id number]) Posture Evaluation Position Sitting Head/C-Spine Posture Forward Head Shoulder Posture (L) Rounded,(R) Rounded Shoulder Subluxation Position (L) Anterior,(R) Anterior Scapula Posture (L) Protracted,(R) Protracted Arm Posture (L) Internally Rotated,(R) Internally Rotated PT-OP-K Range of Motion Start: 09/24/22 09:30 Freq: Status: Active Protocol: Document 09/24/22 09:06 [facility] (Rec: 09/28/22 11:39 [facility] [id number]) Hip Goniometric Range of Motion Hip chelle Straight Leg Raise 145 Hip ROM Limitations Hip ROM Limitations Soft Tissue Tightness Ankle and Foot Goniometric Range of Motion Ankle and Foot chelle Dorsiflexion with Knee Flexed 0 Ankle and Foot ROM Limitations ROM Limitations Soft Tissue Tightness PT-OP-M Strength Start: 09/24/22 09:30 Freq: Status: Active Protocol: Document 09/24/22 09:31 [facility] (Rec: 09/24/22 10:22 [facility] [id number]) Trunk Strength Trunk Manual Muscle Testing Flexion 3- Fair- Extension 2+ Poor+ Rotation Left 3- Fair- Rotation Right 3- Fair- Lateral Flexion Left 3- Fair- Lateral Flexion Right 3- Fair- Scapula Strength Scapula Manual Muscle Testing chelle Elevation (C4) 4+ Good+ Adduction 3+ Fair+ Abduction 3 Fair Depression 3+ Fair+ Shoulder Strength Shoulder Manual Muscle Testing Left Flexion 4 Good Extension 4 Good Abduction (C5) 4 Good Adduction 4 Good External Rotation 4 Good Internal Rotation 4 Good Horizontal Abduction 4 Good Horizontal Adduction 4 Good Right Flexion 4 Good Extension 4 Good Abduction (C5) 4 Good Adduction 4 Good External Rotation 4 Good Internal Rotation 4 Good Horizontal Abduction 4 Good Horizontal Adduction 4 Good Elbow/Forearm Strength Elbow and Forearm Manual Muscle Testing Left Flexion (C6) 4 Good Extension (C7) 4 Good Right Comments pain with resisted flex,ab,ER Hip Strength Hip Manual Muscle Testing Left Flexion (L2) 4- Good- Abduction 3- Fair- Adduction 3+ Fair+ Right Flexion (L2) 4- Good- Abduction 2+ Poor+ Adduction 3+ Fair+ Knee Strength Knee Manual Muscle Testing Left Flexion (S2) 4 Good Extension (L3) 4 Good Right Flexion (S2) 4- Good- Extension (L3) 4- Good- Ankle/Foot Strength Ankle and Foot Manual Muscle Testing Left Dorsiflexion (L4) 3+ Fair+ Plantarflexion (S1) 3+ Fair+ Right Dorsiflexion (L4) 3+ Fair+ Plantarflexion (S1) 3+ Fair+ PT-OP-Q Treatments Start: 09/24/22 09:30 Freq: Status: Active Protocol: Document 09/24/22 09:06 [facility] (Rec: 09/28/22 11:34 [facility] [id number]) Self-Care/Home Management Treatment Education Patient Education Home Exercise Program,Pain Management,Posture PT-OP-T Assessment and Plan Start: 09/24/22 09:30 Freq: Status: Active Protocol: Document 09/24/22 09:31 [facility] (Rec: 09/24/22 10:22 [facility] [id number]) Physical Therapy Assessment Rehab Potential Rehabilitation Potential Good Evaluation Complexity Number of Personal Factors/Comorbidities 1-2 Number of Body Systems Impaired 3 Clinical Presentation at Evaluation Evolving Impairments Impairments Balance,Gait,Pain,Strength Goals Three Impairment pain right shoulder and low back Impairment diffiuclty performing ADL's due to pain and pain in right shoulder limits gait due to heavy use of walker Care Home Goal (LTG) Patient to report at least 50% decrease in pain with all usual activities and be independent with HEP for purposes of core stab, shoulder strengthening and stab LTG Duration 12/25/22 One Impairment gait dysfunction Impairment 2 min walk test 127 ft, not able to tolerate 6 min walk test due to fatigue UE's from supporting body on walker and LE fatigue requiring 2 brief standing breaks, needing to stop at 2 min Short Term Goal (STG) Improve 2 min walk test to at least 150 ft as measure of improved functional gait STG Duration 11/08/22 Care Home Goal (LTG) Patient able to tolerate 6 min walk test with gait distance of at least 300 ft as measure of improved functional gait LTG Duration 12/25/22 Four Impairment weakness Impairment 5x sit to stand test 15 sec with moderate use of hands moderate core muscle weakness with less than anti-gravity strength Short Term Goal (STG) Patient to be independent and compliant with updated HEP for purposes of LE and trunk muscle strengthenng STG Duration 11/08/22 [employer] Goal (LTG) Patient able to perform 5x sit to stand test in 10 sec as measure of improved functional LE strength and demonstrate 1 grade improvement in trunk muscle strength for improved safety with ADL performance LTG Duration 12/25/22 Two Impairment balance dysfunction Impairment Tinetti gait and balance assessment 11/16 indicating patient at high risk for falls static standing 44 sec without holding on Short Term Goal (STG) Patient to be independent and compliant with gait and balance HEP STG Duration 11/08/22 Care Home Goal (LTG) Improve Tinetti gait and balance assessment score to moderate fall risk range to improve safety in the home and community improve static standing balance to at least 60 sec LTG Duration 12/25/22 Assessment Summary Assessment This patient presents to PT with c/o worsening weakness, decreased mobility, and pain related to her MS. She is well-known to this PT. Feel she will benefit from PT for gait and balance training, strengthening, instruction in HEP to address the above goals . POC was discussed and patient is in agreement. Physical Therapy Plan Frequency and Duration Frequency of Treatment 1x/Week Duration of treatment (weeks) 12 Plan of Care Start Date 09/24/22 Plan of Care End Date 12/25/22 Therapeutic Interventions Therapeutic Interventions Balance Training,Home Exercise Program,Manual Therapy, Neuromuscular Re-education, Patient/Caregiver Education, Self-Care/Home Management,Soft Tissue Mobilization,Taping, Therapeutic Activities, Therapeutic Exercises Modalities Cold Pack/Ice Massage,Hot Packs Next Visit Focus/Plan Next Note Type Treatment Note Next Visit Plan Ther ex for LE, core, shoulder strengthening, balance and gait trining.
--- NOTE | 2022-09-24 09:06 | PT.OPPOC ---
Physical, Occupational & Speech Therapy At [facility] Current Diagnoses Multiple sclerosis (09/24/22) Visit Care Team Role Provider Type Bart Doan MD Primary Care Provider Physician Specialty: Internal Medicine Pediatrics Address: [address] [place] [address], [address] Phone: Fax: Email: [email or web address] Rehan Zacarias MD Family Provider Physician Specialty: Internal Medicine Address: [address] [place] [address], [address] Email: [email or web address] Rufino Umaña MD Attending Provider Non-Staff Referring Provider Specialty: Psychiatry Address: [address] [place] [address], [facility] [address], [place], [address] Email: Plan Of Care PT-OP-T Assessment and Plan Start: 09/24/22 09:30 Freq: Status: Active Protocol: Document 09/24/22 09:31 [facility] (Rec: 09/24/22 10:22 [facility] [id number]) Physical Therapy Assessment Rehab Potential Rehabilitation Potential Good Evaluation Complexity Number of Personal Factors/Comorbidities 1-2 Number of Body Systems Impaired 3 Clinical Presentation at Evaluation Evolving Impairments Impairments Balance,Gait,Pain,Strength Goals Three Impairment pain right shoulder and low back Impairment diffiuclty performing ADL's due to pain and pain in right shoulder limits gait due to heavy use of walker Surg Nurse Goal (LTG) Patient to report at least 50% decrease in pain with all usual activities and be independent with HEP for purposes of core stab, shoulder strengthening and stab LTG Duration 12/25/22 One Impairment gait dysfunction Impairment 2 min walk test 127 ft, not able to tolerate 6 min walk test due to fatigue UE's from supporting body on walker and LE fatigue requiring 2 brief standing breaks, needing to stop at 2 min Short Term Goal (STG) Improve 2 min walk test to at least 150 ft as measure of improved functional gait STG Duration 11/08/22 [facility]iary Goal (LTG) Patient able to tolerate 6 min walk test with gait distance of at least 300 ft as measure of improved functional gait LTG Duration 12/25/22 Four Impairment weakness Impairment 5x sit to stand test 15 sec with moderate use of hands moderate core muscle weakness with less than anti-gravity strength Short Term Goal (STG) Patient to be independent and compliant with updated HEP for purposes of LE and trunk muscle strengthenng STG Duration 11/08/22 Penitentiary Goal (LTG) Patient able to perform 5x sit to stand test in 10 sec as measure of improved functional LE strength and demonstrate 1 grade improvement in trunk muscle strength for improved safety with ADL performance LTG Duration 12/25/22 Two Impairment balance dysfunction Impairment Tinetti gait and balance assessment 11/16 indicating patient at high risk for falls static standing 44 sec without holding on Short Term Goal (STG) Patient to be independent and compliant with gait and balance HEP STG Duration 11/08/22 Surg Nurse Goal (LTG) Improve Tinetti gait and balance assessment score to moderate fall risk range to improve safety in the home and community improve static standing balance to at least 60 sec LTG Duration 12/25/22 Assessment Summary Assessment This patient presents to PT with c/o worsening weakness, decreased mobility, and pain related to her MS. She is well-known to this PT. Feel she will benefit from PT for gait and balance training, strengthening, instruction in HEP to address the above goals . POC was discussed and patient is in agreement. Physical Therapy Plan Frequency and Duration Frequency of Treatment 1x/Week Duration of treatment (weeks) 12 Plan of Care Start Date 09/24/22 Plan of Care End Date 12/25/22 Therapeutic Interventions Therapeutic Interventions Balance Training,Home Exercise Program,Manual Therapy, Neuromuscular Re-education, Patient/Caregiver Education, Self-Care/Home Management,Soft Tissue Mobilization,Taping, Therapeutic Activities, Therapeutic Exercises Modalities Cold Pack/Ice Massage,Hot Packs Next Visit Focus/Plan Next Note Type Treatment Note Next Visit Plan Ther ex for LE, core, shoulder strengthening, balance and gait trining. Plan of Care Dates Plan of Care Start Date 09/24/22 Plan of Care End Date 12/25/22 Electronically Signed by: Bertha Redding, PT 09/28/22 0835 If you are in agreement with this Plan of Care, please return a signed and dated copy. I have reviewed this Plan of Care and certify that the skilled therapy services above are required to meet the patient?s needs. Physician Signature Date Printed Name and Credentials Clinical Instructor Signature Printed Name and Credentials
--- NOTE | 2022-09-29 10:26 | PT.OTN ---
Current Diagnoses Multiple sclerosis (09/29/22) Physical Therapy Treatment Note PT-OP-A Visit Information Start: 09/24/22 09:30 Freq: Status: Active Protocol: Document 09/29/22 09:31 SAK (Rec: 09/29/22 10:26 [facility] [id number]) Out-Patient Physical Therapy Visit Information Visit Information Visit Type Treatment Note Visit Start Time 09:33 Visit Stop Time 10:15 Total Visit Minutes 42 Visit Number 2 Evaluation Information Evaluation Date 09/24/22 Precautions Precautions MS, don't overfatigue, esophageal stenosis PT-OP-B Current Condition Start: 09/24/22 09:30 Freq: Status: Active Protocol: Document 09/29/22 09:31 SAK (Rec: 09/29/22 10:26 [facility] [id number]) Current Condition History of Current Condition Onset Date March 2019 Current Complaints weakness due to MS, right shoulder pain, LBP History of Current Condition history MS with worsening weakness, as well as right shoulder pain (patient right handed). Patient has caregiver who assists her primarily with household tasks, HEP, walking. She uses a 4WW to walk short diestances (approx 30 feet) in the home, manual w /c for community mobility. No recent falls, but has history of falls. Reports was evaluated for power wheelchair recently but was denied. C/o right shoulder pain and tightness especially with reaching and propelling manual w/c. Well known to this PT for both land and aquatic- based PT. Prior Treatments and Tests prior PT; land and aquatic Future Testing and Treatments Planned nothing planned yet Treatment Goals Patient/Caregiver Goals improve core strength, decrease right shoulder pain, improve gait and balance PT-OP-C Subjective Start: 09/24/22 09:30 Freq: Status: Active Protocol: Document 09/29/22 09:31 SAK (Rec: 09/29/22 10:26 [facility] [id number]) OP-PT Subjective Patient Comments Patient Comments No new c/o. Alternating use of pool noodle and pillow behind back for improved posture OP-PT Pain Assessment Pain Behaviors Pain Behaviors Guarding,Wincing PT-OP-D Balance Start: 09/24/22 09:30 Freq: Status: Active Protocol: Document 09/24/22 09:06 SAK (Rec: 09/28/22 11:39 [facility] [id number]) Tinetti Balance Assessment Sitting Balance Sitting Balance Steady, safe Standing Balance Immediate Standing Balance Steady with support Turning Step Pattern Turning 360 Degrees Discontinuous steps Sitting Down Sitting Down Uses arms or unsteady Gait and Step Initiation of Gait Hesitancy, mult. attempts Right Foot Step Length Does not pass stance ft. Right Foot Step Height Does not clear floor Left Foot Step Length Does not pass stance foot Left Foot Step Height Does not clear floor Step Description Step Symmetry Step length appears equal Step Continuity Stopping or discontinuity Gait Description Path Description Mild/moderate deviation Trunk Description Marked sway or uses aide Walking Stance Heels apart Scoring and Interpretation Tinetti Composite Score (points) 5 PT-OP-E Functional Tests Start: 09/24/22 09:30 Freq: Status: Active Protocol: Document 09/24/22 09:06 [facility] (Rec: 09/28/22 11:39 [facility] [id number]) Functional Tests 2 Minute Walk Test Distance 127 Device Used 4WW PT-OP-G Mobility & Gait Start: 09/24/22 09:30 Freq: Status: Active Protocol: Document 09/24/22 09:06 [facility] (Rec: 09/28/22 11:39 [facility] [id number]) OP Mobility Evaluation Bed Mobility Supine to and from Sit indep Transfers Bed to Chair Transfers indep Car Transfers assisted Floor Transfers not performed OP Gait Assessment Gait Gait Assistance Required: Minimum Assistance Distance (Feet) 127 Assistive Devices Assistive Device Gait Belt,Front Wheeled Walker Orthotic/Prosthetic Devices or Brace: No Gait Deviations General Gait Pattern Decreased Stride Length, Decreased Feet Clearance, Flexed Trunk Factors Limiting Gait Function Factors Limiting Gait Function Abnormal Tonal Influences, Decreased Activity Tolerance, Decreased Strength,Pain Stair Climbing Evaluation Comments Stair Climbing Comments unable PT-OP-H Neuro Start: 09/24/22 09:30 Freq: Status: Active Protocol: Document 09/24/22 09:06 [facility] (Rec: 09/28/22 11:39 [facility] [id number]) Sensation Evaluation Gross Sensation Gross Sensation Left LE Impaired,Right LE Impaired,Trunk Impaired PT-OP-J Posture/Palpation/Skin Start: 09/24/22 09:30 Freq: Status: Active Protocol: Document 09/24/22 09:06 [facility] (Rec: 09/28/22 11:39 [facility] [id number]) Posture Evaluation Position Sitting Head/C-Spine Posture Forward Head Shoulder Posture (L) Rounded,(R) Rounded Shoulder Subluxation Position (L) Anterior,(R) Anterior Scapula Posture (L) Protracted,(R) Protracted Arm Posture (L) Internally Rotated,(R) Internally Rotated PT-OP-K Range of Motion Start: 09/24/22 09:30 Freq: Status: Active Protocol: Document 09/24/22 09:06 [facility] (Rec: 09/28/22 11:39 [facility] [id number]) Hip Goniometric Range of Motion Hip chelle Straight Leg Raise 145 Hip ROM Limitations Hip ROM Limitations Soft Tissue Tightness Ankle and Foot Goniometric Range of Motion Ankle and Foot chelle Dorsiflexion with Knee Flexed 0 Ankle and Foot ROM Limitations ROM Limitations Soft Tissue Tightness PT-OP-M Strength Start: 09/24/22 09:30 Freq: Status: Active Protocol: Document 09/24/22 09:31 [facility] (Rec: 09/24/22 10:22 [facility] [id number]) Trunk Strength Trunk Manual Muscle Testing Flexion 3- Fair- Extension 2+ Poor+ Rotation Left 3- Fair- Rotation Right 3- Fair- Lateral Flexion Left 3- Fair- Lateral Flexion Right 3- Fair- Scapula Strength Scapula Manual Muscle Testing chelle Elevation (C4) 4+ Good+ Adduction 3+ Fair+ Abduction 3 Fair Depression 3+ Fair+ Shoulder Strength Shoulder Manual Muscle Testing Left Flexion 4 Good Extension 4 Good Abduction (C5) 4 Good Adduction 4 Good External Rotation 4 Good Internal Rotation 4 Good Horizontal Abduction 4 Good Horizontal Adduction 4 Good Right Flexion 4 Good Extension 4 Good Abduction (C5) 4 Good Adduction 4 Good External Rotation 4 Good Internal Rotation 4 Good Horizontal Abduction 4 Good Horizontal Adduction 4 Good Elbow/Forearm Strength Elbow and Forearm Manual Muscle Testing Left Flexion (C6) 4 Good Extension (C7) 4 Good Right Comments pain with resisted flex,ab,ER Hip Strength Hip Manual Muscle Testing Left Flexion (L2) 4- Good- Abduction 3- Fair- Adduction 3+ Fair+ Right Flexion (L2) 4- Good- Abduction 2+ Poor+ Adduction 3+ Fair+ Knee Strength Knee Manual Muscle Testing Left Flexion (S2) 4 Good Extension (L3) 4 Good Right Flexion (S2) 4- Good- Extension (L3) 4- Good- Ankle/Foot Strength Ankle and Foot Manual Muscle Testing Left Dorsiflexion (L4) 3+ Fair+ Plantarflexion (S1) 3+ Fair+ Right Dorsiflexion (L4) 3+ Fair+ Plantarflexion (S1) 3+ Fair+ PT-OP-Q Treatments Start: 09/24/22 09:30 Freq: Status: Active Protocol: Document 09/29/22 09:31 [facility] (Rec: 09/29/22 10:26 [facility] [id number]) Cardio Equipment Recumbent Stepper (Sci-Fit) Duration (Minutes) 5 Resistance 1 Seat Position 11 Therapeutic Exercises Sitting Exercises cat/cow Reps/Minutes 5x5 trunk rotation Reps/Minutes 3x 10 UT stretch Reps/Minutes 2x10 sh ER Reps/Minutes 10x5 Comments green ball mid thoracic sp pulleys Sitting Exercise Name flexion, scaption Reps/Minutes 10x Comments green ball mid thoracic sp Gait Training Gait Activity 4WW Description level Device Used 4WW Level of Assistance CGA Surface firm Distance/Duration 70, 44 Treatment Focus safety, activity tolerance, posture Manual Therapy Treatment Soft Tissue Mobilization right rhomboids Mobilization Type Strumming,Sustained Pressure Intensity/Depth mod Body Position Sitting Comments instruction in use of Theracane Neuro Re-Education Treatment Balance Activities lean backs Surface yellow Dyadisc on mat sittin bal Surface yellow Dynadisc on mat Equipment balloon Reps/Duration 3 min Self-Care/Home Management Treatment Education Other Education use of Theracane for self STM PT-OP-T Assessment and Plan Start: 09/24/22 09:30 Freq: Status: Active Protocol: Document 09/29/22 09:31 [facility] (Rec: 09/29/22 10:26 [facility] [id number]) Physical Therapy Assessment Rehab Potential Rehabilitation Potential Good Evaluation Complexity Number of Personal Factors/Comorbidities 1-2 Number of Body Systems Impaired 3 Clinical Presentation at Evaluation Evolving Impairments Impairments Balance,Gait,Pain,Strength Goals Three Impairment pain right shoulder and low back Impairment diffiuclty performing ADL's due to pain and pain in right shoulder limits gait due to heavy use of walker Mcfp Goal (LTG) Patient to report at least 50% decrease in pain with all usual activities and be independent with HEP for purposes of core stab, shoulder strengthening and stab LTG Duration 12/25/22 One Impairment gait dysfunction Impairment 2 min walk test 127 ft, not able to tolerate 6 min walk test due to fatigue UE's from supporting body on walker and LE fatigue requiring 2 brief standing breaks, needing to stop at 2 min Short Term Goal (STG) Improve 2 min walk test to at least 150 ft as measure of improved functional gait STG Duration 11/08/22 Mcfp Goal (LTG) Patient able to tolerate 6 min walk test with gait distance of at least 300 ft as measure of improved functional gait LTG Duration 12/25/22 Four Impairment weakness Impairment 5x sit to stand test 15 sec with moderate use of hands moderate core muscle weakness with less than anti-gravity strength Short Term Goal (STG) Patient to be independent and compliant with updated HEP for purposes of LE and trunk muscle strengthenng STG Duration 11/08/22 Porcelain Enameler Goal (LTG) Patient able to perform 5x sit to stand test in 10 sec as measure of improved functional LE strength and demonstrate 1 grade improvement in trunk muscle strength for improved safety with ADL performance LTG Duration 12/25/22 Two Impairment balance dysfunction Impairment Tinetti gait and balance assessment 11/16 indicating patient at high risk for falls static standing 44 sec without holding on Short Term Goal (STG) Patient to be independent and compliant with gait and balance HEP STG Duration 11/08/22 Mcfp Goal (LTG) Improve Tinetti gait and balance assessment score to moderate fall risk range to improve safety in the home and community improve static standing balance to at least 60 sec LTG Duration 12/25/22 Assessment Summary Assessment Patient tolerated use of THeracane with instruction; considering obtaining for ome use (has used one before but with lot larger end, not as effective or comfortable). Physical Therapy Plan Frequency and Duration Frequency of Treatment 1x/Week Duration of treatment (weeks) 12 Plan of Care Start Date 09/24/22 Plan of Care End Date 12/25/22 Therapeutic Interventions Therapeutic Interventions Balance Training,Home Exercise Program,Manual Therapy, Neuromuscular Re-education, Patient/Caregiver Education, Self-Care/Home Management,Soft Tissue Mobilization,Taping, Therapeutic Activities, Therapeutic Exercises Modalities Cold Pack/Ice Massage,Hot Packs Next Visit Focus/Plan Next Note Type Treatment Note Next Visit Plan Ther ex for LE, core, shoulder strengthening, balance and gait trining.
--- NOTE | 2022-10-05 16:47 | PT.OTN ---
Current Diagnoses Multiple sclerosis (10/05/22) Physical Therapy Treatment Note PT-OP-A Visit Information Start: 09/24/22 09:30 Freq: Status: Active Protocol: Document 10/05/22 12:33 SAK (Rec: 10/05/22 13:19 [facility] [id number]) Out-Patient Physical Therapy Visit Information Visit Information Visit Type Treatment Note Visit Start Time 12:33 Visit Stop Time 13:14 Total Visit Minutes 41 Visit Number 3 Evaluation Information Evaluation Date 09/24/22 Precautions Precautions MS, don't overfatigue, esophageal stenosis PT-OP-B Current Condition Start: 09/24/22 09:30 Freq: Status: Active Protocol: Document 10/05/22 12:33 SAK (Rec: 10/05/22 13:19 [facility] [id number]) Current Condition History of Current Condition Onset Date March 2019 Current Complaints weakness due to MS, right shoulder pain, LBP History of Current Condition history MS with worsening weakness, as well as right shoulder pain (patient right handed). Patient has caregiver who assists her primarily with household tasks, HEP, walking. She uses a 4WW to walk short diestances (approx 30 feet) in the home, manual w /c for community mobility. No recent falls, but has history of falls. Reports was evaluated for power wheelchair recently but was denied. C/o right shoulder pain and tightness especially with reaching and propelling manual w/c. Well known to this PT for both land and aquatic- based PT. Prior Treatments and Tests prior PT; land and aquatic Future Testing and Treatments Planned nothing planned yet Treatment Goals Patient/Caregiver Goals improve core strength, decrease right shoulder pain, improve gait and balance PT-OP-C Subjective Start: 09/24/22 09:30 Freq: Status: Active Protocol: Document 10/05/22 12:33 SAK (Rec: 10/05/22 13:19 [facility] [id number]) OP-PT Subjective Patient Comments Patient Comments no new c/o. muscle soreness after last session. OP-PT Pain Assessment Pain Behaviors Pain Behaviors Guarding,Wincing PT-OP-D Balance Start: 09/24/22 09:30 Freq: Status: Active Protocol: Document 09/24/22 09:06 SAK (Rec: 09/28/22 11:39 [facility] [id number]) Tinetti Balance Assessment Sitting Balance Sitting Balance Steady, safe Standing Balance Immediate Standing Balance Steady with support Turning Step Pattern Turning 360 Degrees Discontinuous steps Sitting Down Sitting Down Uses arms or unsteady Gait and Step Initiation of Gait Hesitancy, mult. attempts Right Foot Step Length Does not pass stance ft. Right Foot Step Height Does not clear floor Left Foot Step Length Does not pass stance foot Left Foot Step Height Does not clear floor Step Description Step Symmetry Step length appears equal Step Continuity Stopping or discontinuity Gait Description Path Description Mild/moderate deviation Trunk Description Marked sway or uses aide Walking Stance Heels apart Scoring and Interpretation Tinetti Composite Score (points) 5 PT-OP-E Functional Tests Start: 09/24/22 09:30 Freq: Status: Active Protocol: Document 09/24/22 09:06 [facility] (Rec: 09/28/22 11:39 [facility] [id number]) Functional Tests 2 Minute Walk Test Distance 127 Device Used 4WW PT-OP-G Mobility & Gait Start: 09/24/22 09:30 Freq: Status: Active Protocol: Document 09/24/22 09:06 [facility] (Rec: 09/28/22 11:39 [facility] [id number]) OP Mobility Evaluation Bed Mobility Supine to and from Sit indep Transfers Bed to Chair Transfers indep Car Transfers assisted Floor Transfers not performed OP Gait Assessment Gait Gait Assistance Required: Minimum Assistance Distance (Feet) 127 Assistive Devices Assistive Device Gait Belt,Front Wheeled Walker Orthotic/Prosthetic Devices or Brace: No Gait Deviations General Gait Pattern Decreased Stride Length, Decreased Feet Clearance, Flexed Trunk Factors Limiting Gait Function Factors Limiting Gait Function Abnormal Tonal Influences, Decreased Activity Tolerance, Decreased Strength,Pain Stair Climbing Evaluation Comments Stair Climbing Comments unable PT-OP-H Neuro Start: 09/24/22 09:30 Freq: Status: Active Protocol: Document 09/24/22 09:06 [facility] (Rec: 09/28/22 11:39 [facility] [id number]) Sensation Evaluation Gross Sensation Gross Sensation Left LE Impaired,Right LE Impaired,Trunk Impaired PT-OP-J Posture/Palpation/Skin Start: 09/24/22 09:30 Freq: Status: Active Protocol: Document 09/24/22 09:06 [facility] (Rec: 09/28/22 11:39 [facility] [id number]) Posture Evaluation Position Sitting Head/C-Spine Posture Forward Head Shoulder Posture (L) Rounded,(R) Rounded Shoulder Subluxation Position (L) Anterior,(R) Anterior Scapula Posture (L) Protracted,(R) Protracted Arm Posture (L) Internally Rotated,(R) Internally Rotated PT-OP-K Range of Motion Start: 09/24/22 09:30 Freq: Status: Active Protocol: Document 09/24/22 09:06 [facility] (Rec: 09/28/22 11:39 [facility] [id number]) Hip Goniometric Range of Motion Hip chelle Straight Leg Raise 145 Hip ROM Limitations Hip ROM Limitations Soft Tissue Tightness Ankle and Foot Goniometric Range of Motion Ankle and Foot chelle Dorsiflexion with Knee Flexed 0 Ankle and Foot ROM Limitations ROM Limitations Soft Tissue Tightness PT-OP-M Strength Start: 09/24/22 09:30 Freq: Status: Active Protocol: Document 09/24/22 09:31 [facility] (Rec: 09/24/22 10:22 [facility] [id number]) Trunk Strength Trunk Manual Muscle Testing Flexion 3- Fair- Extension 2+ Poor+ Rotation Left 3- Fair- Rotation Right 3- Fair- Lateral Flexion Left 3- Fair- Lateral Flexion Right 3- Fair- Scapula Strength Scapula Manual Muscle Testing chelle Elevation (C4) 4+ Good+ Adduction 3+ Fair+ Abduction 3 Fair Depression 3+ Fair+ Shoulder Strength Shoulder Manual Muscle Testing Left Flexion 4 Good Extension 4 Good Abduction (C5) 4 Good Adduction 4 Good External Rotation 4 Good Internal Rotation 4 Good Horizontal Abduction 4 Good Horizontal Adduction 4 Good Right Flexion 4 Good Extension 4 Good Abduction (C5) 4 Good Adduction 4 Good External Rotation 4 Good Internal Rotation 4 Good Horizontal Abduction 4 Good Horizontal Adduction 4 Good Elbow/Forearm Strength Elbow and Forearm Manual Muscle Testing Left Flexion (C6) 4 Good Extension (C7) 4 Good Right Comments pain with resisted flex,ab,ER Hip Strength Hip Manual Muscle Testing Left Flexion (L2) 4- Good- Abduction 3- Fair- Adduction 3+ Fair+ Right Flexion (L2) 4- Good- Abduction 2+ Poor+ Adduction 3+ Fair+ Knee Strength Knee Manual Muscle Testing Left Flexion (S2) 4 Good Extension (L3) 4 Good Right Flexion (S2) 4- Good- Extension (L3) 4- Good- Ankle/Foot Strength Ankle and Foot Manual Muscle Testing Left Dorsiflexion (L4) 3+ Fair+ Plantarflexion (S1) 3+ Fair+ Right Dorsiflexion (L4) 3+ Fair+ Plantarflexion (S1) 3+ Fair+ PT-OP-Q Treatments Start: 09/24/22 09:30 Freq: Status: Active Protocol: Document 10/05/22 12:33 [facility] (Rec: 10/05/22 13:19 [facility] [id number]) Therapeutic Exercises Sitting Exercises row, sh ext Equipment Used L2 TB Reps/Minutes 10x5 ea Comments sitting on Dynadisc resisted trunk rotation Equipment Used orange TB Reps/Minutes 10x pec stretch Reps/Minutes 2x30 Comments green ball mid thoracic sp cat/cow Reps/Minutes 5x5 trunk rotation Reps/Minutes 3x 10 sh ER Reps/Minutes 10x5 Comments sitting on yellow dynadisc pulleys Sitting Exercise Name flexion, scaption Reps/Minutes 10x Comments green ball mid thoracic sp Gait Training Gait Activity 4WW Description level Device Used 4WW Level of Assistance CGA Surface firm Distance/Duration 40 Treatment Focus safety, activity tolerance, posture Comments stopped due to feeling weak in LE's Neuro Re-Education Treatment Balance Activities lean backs Surface yellow Dyadisc on mat sittin bal Surface yellow Dynadisc on mat Equipment balloon Reps/Duration 3 min PT-OP-T Assessment and Plan Start: 09/24/22 09:30 Freq: Status: Active Protocol: Document 10/05/22 12:33 [facility] (Rec: 10/05/22 13:19 [facility] [id number]) Physical Therapy Assessment Impairments Impairments Balance,Gait,Pain,Strength Goals Three Impairment pain right shoulder and low back Impairment diffiuclty performing ADL's due to pain and pain in right shoulder limits gait due to heavy use of walker Technical Photographer Goal (LTG) Patient to report at least 50% decrease in pain with all usual activities and be independent with HEP for purposes of core stab, shoulder strengthening and stab LTG Duration 12/25/22 One Impairment gait dysfunction Impairment 2 min walk test 127 ft, not able to tolerate 6 min walk test due to fatigue UE's from supporting body on walker and LE fatigue requiring 2 brief standing breaks, needing to stop at 2 min Short Term Goal (STG) Improve 2 min walk test to at least 150 ft as measure of improved functional gait STG Duration 11/08/22 Technical Photographer Goal (LTG) Patient able to tolerate 6 min walk test with gait distance of at least 300 ft as measure of improved functional gait LTG Duration 12/25/22 Four Impairment weakness Impairment 5x sit to stand test 15 sec with moderate use of hands moderate core muscle weakness with less than anti-gravity strength Short Term Goal (STG) Patient to be independent and compliant with updated HEP for purposes of LE and trunk muscle strengthenng STG Duration 11/08/22 Correction Goal (LTG) Patient able to perform 5x sit to stand test in 10 sec as measure of improved functional LE strength and demonstrate 1 grade improvement in trunk muscle strength for improved safety with ADL performance LTG Duration 12/25/22 Two Impairment balance dysfunction Impairment Tinetti gait and balance assessment 11/16 indicating patient at high risk for falls static standing 44 sec without holding on Short Term Goal (STG) Patient to be independent and compliant with gait and balance HEP STG Duration 11/08/22 Correction Goal (LTG) Improve Tinetti gait and balance assessment score to moderate fall risk range to improve safety in the home and community improve static standing balance to at least 60 sec LTG Duration 12/25/22 Assessment Summary Assessment low activity tolerance for gait today, reports has had family around, more active and maybe fatigued. Physical Therapy Plan Frequency and Duration Frequency of Treatment 1x/Week Duration of treatment (weeks) 12 Plan of Care Start Date 09/24/22 Plan of Care End Date 12/25/22 Therapeutic Interventions Therapeutic Interventions Balance Training,Home Exercise Program,Manual Therapy, Neuromuscular Re-education, Patient/Caregiver Education, Self-Care/Home Management,Soft Tissue Mobilization,Taping, Therapeutic Activities, Therapeutic Exercises Modalities Cold Pack/Ice Massage,Hot Packs Next Visit Focus/Plan Next Note Type Treatment Note Next Visit Plan Ther ex for LE, core, shoulder strengthening, balance and gait training. STM periscap.
--- NOTE | 2022-10-22 15:53 | PT.OTN ---
Current Diagnoses Multiple sclerosis (10/22/22) Physical Therapy Treatment Note PT-OP-A Visit Information Start: 09/24/22 09:30 Freq: Status: Active Protocol: Document 10/22/22 14:56 SAK (Rec: 10/22/22 15:53 [facility] [id number]) Out-Patient Physical Therapy Visit Information Visit Information Visit Type Treatment Note Visit Start Time 14:57 Total Visit Minutes 42 Visit Number 5 Number of CELL FEED DEPARTMENT SUPERVISOR Visits 0 Evaluation Information Evaluation Date 09/24/22 Precautions Precautions MS, don't overfatigue, esophageal stenosis PT-OP-B Current Condition Start: 09/24/22 09:30 Freq: Status: Active Protocol: Document 10/05/22 12:33 SAK (Rec: 10/05/22 13:19 [facility] [id number]) Current Condition History of Current Condition Onset Date March 2019 Current Complaints weakness due to MS, right shoulder pain, LBP History of Current Condition history MS with worsening weakness, as well as right shoulder pain (patient right handed). Patient has caregiver who assists her primarily with household tasks, HEP, walking. She uses a 4WW to walk short diestances (approx 30 feet) in the home, manual w /c for community mobility. No recent falls, but has history of falls. Reports was evaluated for power wheelchair recently but was denied. C/o right shoulder pain and tightness especially with reaching and propelling manual w/c. Well known to this PT for both land and aquatic- based PT. Prior Treatments and Tests prior PT; land and aquatic Future Testing and Treatments Planned nothing planned yet Treatment Goals Patient/Caregiver Goals improve core strength, decrease right shoulder pain, improve gait and balance PT-OP-C Subjective Start: 09/24/22 09:30 Freq: Status: Active Protocol: Document 10/22/22 14:56 SAK (Rec: 10/22/22 15:53 [facility] [id number]) OP-PT Subjective Patient Comments Patient Comments Reports more breathing difficulty, seeing doctor at tomorrow, lower activity tolerance. PT-OP-D Balance Start: 09/24/22 09:30 Freq: Status: Active Protocol: Document 09/24/22 09:06 SAK (Rec: 09/28/22 11:39 [facility] [id number]) Tinetti Balance Assessment Sitting Balance Sitting Balance Steady, safe Standing Balance Immediate Standing Balance Steady with support Turning Step Pattern Turning 360 Degrees Discontinuous steps Sitting Down Sitting Down Uses arms or unsteady Gait and Step Initiation of Gait Hesitancy, mult. attempts Right Foot Step Length Does not pass stance ft. Right Foot Step Height Does not clear floor Left Foot Step Length Does not pass stance foot Left Foot Step Height Does not clear floor Step Description Step Symmetry Step length appears equal Step Continuity Stopping or discontinuity Gait Description Path Description Mild/moderate deviation Trunk Description Marked sway or uses aide Walking Stance Heels apart Scoring and Interpretation Tinetti Composite Score (points) 5 PT-OP-E Functional Tests Start: 09/24/22 09:30 Freq: Status: Active Protocol: Document 09/24/22 09:06 [facility] (Rec: 09/28/22 11:39 [facility] [id number]) Functional Tests 2 Minute Walk Test Distance 127 Device Used 4WW PT-OP-G Mobility & Gait Start: 09/24/22 09:30 Freq: Status: Active Protocol: Document 09/24/22 09:06 [facility] (Rec: 09/28/22 11:39 [facility] [id number]) OP Mobility Evaluation Bed Mobility Supine to and from Sit indep Transfers Bed to Chair Transfers indep Car Transfers assisted Floor Transfers not performed OP Gait Assessment Gait Gait Assistance Required: Minimum Assistance Distance (Feet) 127 Assistive Devices Assistive Device Gait Belt,Front Wheeled Walker Orthotic/Prosthetic Devices or Brace: No Gait Deviations General Gait Pattern Decreased Stride Length, Decreased Feet Clearance, Flexed Trunk Factors Limiting Gait Function Factors Limiting Gait Function Abnormal Tonal Influences, Decreased Activity Tolerance, Decreased Strength,Pain Stair Climbing Evaluation Comments Stair Climbing Comments unable PT-OP-H Neuro Start: 09/24/22 09:30 Freq: Status: Active Protocol: Document 09/24/22 09:06 [facility] (Rec: 09/28/22 11:39 [facility] [id number]) Sensation Evaluation Gross Sensation Gross Sensation Left LE Impaired,Right LE Impaired,Trunk Impaired PT-OP-J Posture/Palpation/Skin Start: 09/24/22 09:30 Freq: Status: Active Protocol: Document 09/24/22 09:06 [facility] (Rec: 09/28/22 11:39 [facility] [id number]) Posture Evaluation Position Sitting Head/C-Spine Posture Forward Head Shoulder Posture (L) Rounded,(R) Rounded Shoulder Subluxation Position (L) Anterior,(R) Anterior Scapula Posture (L) Protracted,(R) Protracted Arm Posture (L) Internally Rotated,(R) Internally Rotated PT-OP-K Range of Motion Start: 09/24/22 09:30 Freq: Status: Active Protocol: Document 09/24/22 09:06 [facility] (Rec: 09/28/22 11:39 [facility] [id number]) Hip Goniometric Range of Motion Hip chelle Straight Leg Raise 145 Hip ROM Limitations Hip ROM Limitations Soft Tissue Tightness Ankle and Foot Goniometric Range of Motion Ankle and Foot chelle Dorsiflexion with Knee Flexed 0 Ankle and Foot ROM Limitations ROM Limitations Soft Tissue Tightness PT-OP-M Strength Start: 09/24/22 09:30 Freq: Status: Active Protocol: Document 09/24/22 09:31 [facility] (Rec: 09/24/22 10:22 [facility] [id number]) Trunk Strength Trunk Manual Muscle Testing Flexion 3- Fair- Extension 2+ Poor+ Rotation Left 3- Fair- Rotation Right 3- Fair- Lateral Flexion Left 3- Fair- Lateral Flexion Right 3- Fair- Scapula Strength Scapula Manual Muscle Testing chelle Elevation (C4) 4+ Good+ Adduction 3+ Fair+ Abduction 3 Fair Depression 3+ Fair+ Shoulder Strength Shoulder Manual Muscle Testing Left Flexion 4 Good Extension 4 Good Abduction (C5) 4 Good Adduction 4 Good External Rotation 4 Good Internal Rotation 4 Good Horizontal Abduction 4 Good Horizontal Adduction 4 Good Right Flexion 4 Good Extension 4 Good Abduction (C5) 4 Good Adduction 4 Good External Rotation 4 Good Internal Rotation 4 Good Horizontal Abduction 4 Good Horizontal Adduction 4 Good Elbow/Forearm Strength Elbow and Forearm Manual Muscle Testing Left Flexion (C6) 4 Good Extension (C7) 4 Good Right Comments pain with resisted flex,ab,ER Hip Strength Hip Manual Muscle Testing Left Flexion (L2) 4- Good- Abduction 3- Fair- Adduction 3+ Fair+ Right Flexion (L2) 4- Good- Abduction 2+ Poor+ Adduction 3+ Fair+ Knee Strength Knee Manual Muscle Testing Left Flexion (S2) 4 Good Extension (L3) 4 Good Right Flexion (S2) 4- Good- Extension (L3) 4- Good- Ankle/Foot Strength Ankle and Foot Manual Muscle Testing Left Dorsiflexion (L4) 3+ Fair+ Plantarflexion (S1) 3+ Fair+ Right Dorsiflexion (L4) 3+ Fair+ Plantarflexion (S1) 3+ Fair+ PT-OP-Q Treatments Start: 09/24/22 09:30 Freq: Status: Active Protocol: Document 10/22/22 14:56 [facility] (Rec: 10/22/22 15:53 [facility] [id number]) Gym Equipment Shuttle Recovery Unilateral Squats Resistance 37 Shuttle Recovery Platform Stable Reps/Time 7 right, Bilateral Squats Details Squats with manual support to ankles and knees Resistance 62 (2 new bands) Shuttle Recovery Platform Stable Reps/Time 15x2 good slow and controlled - R ankle unsteady EV x1 instance. Therapeutic Exercises Supine Exercises SKTC Reps/Minutes 2x30 Comments manual HS stretch Reps/Minutes 2x30 Comments manual Sitting Exercises row, sh ext Sitting Exercise Name rows, ext Resistance L2> #5 blue TB, therapist anchor Equipment Used sitting on Dynadisc (yellow) black table Reps/Minutes x20 reps then 10 reps 5SH, ext x20 reps Comments good form, slow pacing withincreased resistance resisted trunk rotation Resistance orange> #4 blue TB, therapist anchor Equipment Used seated on black table on Yellow dynadisc Reps/Minutes 15x Gait Training Gait Activity 4WW Description level Device Used FWW Level of Assistance CGA Surface firm Distance/Duration 31, 46 ft Treatment Focus safety, activity tolerance, posture Comments performed post scifit and elevated arm handles initial distance. lowered 2 notches (1 hole top showing) improved posture and support to LEs further distance 2nd set. Neuro Re-Education Treatment Balance Activities lean backs Surface yellow Dyadisc on mat sittin bal Details 1:1 Surface yellow Dynadisc on mat Equipment balloon and UE therex with therapist front, pt feet on large blue disc Comments 1 UE time PT-OP-T Assessment and Plan Start: 09/24/22 09:30 Freq: Status: Active Protocol: Document 10/22/22 14:56 [facility] (Rec: 10/22/22 15:53 [facility] [id number]) Physical Therapy Assessment Goals Three Impairment pain right shoulder and low back Impairment diffiuclty performing ADL's due to pain and pain in right shoulder limits gait due to heavy use of walker Retirement Goal (LTG) Patient to report at least 50% decrease in pain with all usual activities and be independent with HEP for purposes of core stab, shoulder strengthening and stab LTG Duration 12/25/22 One Impairment gait dysfunction Impairment 2 min walk test 127 ft, not able to tolerate 6 min walk test due to fatigue UE's from supporting body on walker and LE fatigue requiring 2 brief standing breaks, needing to stop at 2 min Short Term Goal (STG) Improve 2 min walk test to at least 150 ft as measure of improved functional gait STG Duration 11/08/22 Retirement Goal (LTG) Patient able to tolerate 6 min walk test with gait distance of at least 300 ft as measure of improved functional gait LTG Duration 12/25/22 Four Impairment weakness Impairment 5x sit to stand test 15 sec with moderate use of hands moderate core muscle weakness with less than anti-gravity strength Short Term Goal (STG) Patient to be independent and compliant with updated HEP for purposes of LE and trunk muscle strengthenng STG Duration 11/08/22 Prosthodontist/Owner Goal (LTG) Patient able to perform 5x sit to stand test in 10 sec as measure of improved functional LE strength and demonstrate 1 grade improvement in trunk muscle strength for improved safety with ADL performance LTG Duration 12/25/22 Two Impairment balance dysfunction Impairment Tinetti gait and balance assessment 11/16 indicating patient at high risk for falls static standing 44 sec without holding on Short Term Goal (STG) Patient to be independent and compliant with gait and balance HEP STG Duration 11/08/22 Retirement Goal (LTG) Improve Tinetti gait and balance assessment score to moderate fall risk range to improve safety in the home and community improve static standing balance to at least 60 sec LTG Duration 12/25/22 Assessment Summary Assessment Lower tolerance for shuttle leg press with dec wt chelle and dec reps both, but progressed sitting bal with feet on unstable large blue disc. Physical Therapy Plan Frequency and Duration Frequency of Treatment 1x/Week Duration of treatment (weeks) 12 Plan of Care Start Date 09/24/22 Plan of Care End Date 12/25/22 Therapeutic Interventions Therapeutic Interventions Balance Training,Home Exercise Program,Manual Therapy, Neuromuscular Re-education, Patient/Caregiver Education, Self-Care/Home Management,Soft Tissue Mobilization,Taping, Therapeutic Activities, Therapeutic Exercises Modalities Cold Pack/Ice Massage,Hot Packs Next Visit Focus/Plan Next Note Type Treatment Note Next Visit Plan Continue shoulder strengthening, balance and gait training. STM periscap.
--- NOTE | 2022-10-28 14:15 | PT.OTN ---
Current Diagnoses Multiple sclerosis (10/28/22) Physical Therapy Treatment Note PT-OP-A Visit Information Start: 09/24/22 09:30 Freq: Status: Active Protocol: Document 10/28/22 13:35 SP (Rec: 10/28/22 14:57 SP [id number]) Out-Patient Physical Therapy Visit Information Visit Information Visit Type Treatment Note Visit Start Time 13:35 Visit Stop Time 14:15 Total Visit Minutes 40 Visit Number 6 Number of CROP PEST CONTROL SPECIALIST Visits 1 Evaluation Information Evaluation Date 09/24/22 Precautions Precautions MS, don't overfatigue, esophageal stenosis PT-OP-B Current Condition Start: 09/24/22 09:30 Freq: Status: Active Protocol: Document 10/05/22 12:33 SAK (Rec: 10/05/22 13:19 SAK [id number]) Current Condition History of Current Condition Onset Date March 2019 Current Complaints weakness due to MS, right shoulder pain, LBP History of Current Condition history MS with worsening weakness, as well as right shoulder pain (patient right handed). Patient has caregiver who assists her primarily with household tasks, HEP, walking. She uses a 4WW to walk short diestances (approx 30 feet) in the home, manual w /c for community mobility. No recent falls, but has history of falls. Reports was evaluated for power wheelchair recently but was denied. C/o right shoulder pain and tightness especially with reaching and propelling manual w/c. Well known to this PT for both land and aquatic- based PT. Prior Treatments and Tests prior PT; land and aquatic Future Testing and Treatments Planned nothing planned yet Treatment Goals Patient/Caregiver Goals improve core strength, decrease right shoulder pain, improve gait and balance PT-OP-C Subjective Start: 09/24/22 09:30 Freq: Status: Active Protocol: Document 10/28/22 13:35 SP (Rec: 10/28/22 14:57 SP [id number]) OP-PT Subjective Patient Comments Patient Comments Pt reported breath difficulty, has appt coming up for esphageal expansion, will need to adjust one of her PT appts . PT-OP-D Balance Start: 09/24/22 09:30 Freq: Status: Active Protocol: Document 09/24/22 09:06 SAK (Rec: 09/28/22 11:39 SAK [id number]) Tinetti Balance Assessment Sitting Balance Sitting Balance Steady, safe Standing Balance Immediate Standing Balance Steady with support Turning Step Pattern Turning 360 Degrees Discontinuous steps Sitting Down Sitting Down Uses arms or unsteady Gait and Step Initiation of Gait Hesitancy, mult. attempts Right Foot Step Length Does not pass stance ft. Right Foot Step Height Does not clear floor Left Foot Step Length Does not pass stance foot Left Foot Step Height Does not clear floor Step Description Step Symmetry Step length appears equal Step Continuity Stopping or discontinuity Gait Description Path Description Mild/moderate deviation Trunk Description Marked sway or uses aide Walking Stance Heels apart Scoring and Interpretation Tinetti Composite Score (points) 5 PT-OP-E Functional Tests Start: 09/24/22 09:30 Freq: Status: Active Protocol: Document 09/24/22 09:06 [facility] (Rec: 09/28/22 11:39 [facility] [id number]) Functional Tests 2 Minute Walk Test Distance 127 Device Used 4WW PT-OP-G Mobility & Gait Start: 09/24/22 09:30 Freq: Status: Active Protocol: Document 09/24/22 09:06 [facility] (Rec: 09/28/22 11:39 [facility] [id number]) OP Mobility Evaluation Bed Mobility Supine to and from Sit indep Transfers Bed to Chair Transfers indep Car Transfers assisted Floor Transfers not performed OP Gait Assessment Gait Gait Assistance Required: Minimum Assistance Distance (Feet) 127 Assistive Devices Assistive Device Gait Belt,Front Wheeled Walker Orthotic/Prosthetic Devices or Brace: No Gait Deviations General Gait Pattern Decreased Stride Length, Decreased Feet Clearance, Flexed Trunk Factors Limiting Gait Function Factors Limiting Gait Function Abnormal Tonal Influences, Decreased Activity Tolerance, Decreased Strength,Pain Stair Climbing Evaluation Comments Stair Climbing Comments unable PT-OP-H Neuro Start: 09/24/22 09:30 Freq: Status: Active Protocol: Document 09/24/22 09:06 [facility] (Rec: 09/28/22 11:39 [facility] [id number]) Sensation Evaluation Gross Sensation Gross Sensation Left LE Impaired,Right LE Impaired,Trunk Impaired PT-OP-J Posture/Palpation/Skin Start: 09/24/22 09:30 Freq: Status: Active Protocol: Document 09/24/22 09:06 [facility] (Rec: 09/28/22 11:39 [facility] [id number]) Posture Evaluation Position Sitting Head/C-Spine Posture Forward Head Shoulder Posture (L) Rounded,(R) Rounded Shoulder Subluxation Position (L) Anterior,(R) Anterior Scapula Posture (L) Protracted,(R) Protracted Arm Posture (L) Internally Rotated,(R) Internally Rotated PT-OP-K Range of Motion Start: 09/24/22 09:30 Freq: Status: Active Protocol: Document 09/24/22 09:06 [facility] (Rec: 09/28/22 11:39 [facility] [id number]) Hip Goniometric Range of Motion Hip chelle Straight Leg Raise 145 Hip ROM Limitations Hip ROM Limitations Soft Tissue Tightness Ankle and Foot Goniometric Range of Motion Ankle and Foot chelle Dorsiflexion with Knee Flexed 0 Ankle and Foot ROM Limitations ROM Limitations Soft Tissue Tightness PT-OP-M Strength Start: 09/24/22 09:30 Freq: Status: Active Protocol: Document 09/24/22 09:31 [facility] (Rec: 09/24/22 10:22 [facility] [id number]) Trunk Strength Trunk Manual Muscle Testing Flexion 3- Fair- Extension 2+ Poor+ Rotation Left 3- Fair- Rotation Right 3- Fair- Lateral Flexion Left 3- Fair- Lateral Flexion Right 3- Fair- Scapula Strength Scapula Manual Muscle Testing chelle Elevation (C4) 4+ Good+ Adduction 3+ Fair+ Abduction 3 Fair Depression 3+ Fair+ Shoulder Strength Shoulder Manual Muscle Testing Left Flexion 4 Good Extension 4 Good Abduction (C5) 4 Good Adduction 4 Good External Rotation 4 Good Internal Rotation 4 Good Horizontal Abduction 4 Good Horizontal Adduction 4 Good Right Flexion 4 Good Extension 4 Good Abduction (C5) 4 Good Adduction 4 Good External Rotation 4 Good Internal Rotation 4 Good Horizontal Abduction 4 Good Horizontal Adduction 4 Good Elbow/Forearm Strength Elbow and Forearm Manual Muscle Testing Left Flexion (C6) 4 Good Extension (C7) 4 Good Right Comments pain with resisted flex,ab,ER Hip Strength Hip Manual Muscle Testing Left Flexion (L2) 4- Good- Abduction 3- Fair- Adduction 3+ Fair+ Right Flexion (L2) 4- Good- Abduction 2+ Poor+ Adduction 3+ Fair+ Knee Strength Knee Manual Muscle Testing Left Flexion (S2) 4 Good Extension (L3) 4 Good Right Flexion (S2) 4- Good- Extension (L3) 4- Good- Ankle/Foot Strength Ankle and Foot Manual Muscle Testing Left Dorsiflexion (L4) 3+ Fair+ Plantarflexion (S1) 3+ Fair+ Right Dorsiflexion (L4) 3+ Fair+ Plantarflexion (S1) 3+ Fair+ PT-OP-Q Treatments Start: 09/24/22 09:30 Freq: Status: Active Protocol: Document 10/28/22 13:35 SP (Rec: 10/28/22 14:57 SP [id number]) Gym Equipment Shuttle Recovery Unilateral Squats Resistance 25 (new band) Shuttle Recovery Platform Stable Reps/Time 8 R, 10 L Bilateral Squats Details Squats with manual support to ankles and knees Resistance 62 (2>1 new band) Shuttle Recovery Platform Stable Reps/Time 15x2 good slow and controlled - R ankle unsteady EV x1 instance. Therapeutic Exercises Supine Exercises LTR Supine Exercise Name reviewed self/ previous TA/ QL stretch Side bilateral Reps/Minutes 5 SH x5 Comments good stretch, L hip flexor spasming to L initially hip flexor stretch Resistance mat table LEs off edge Equipment Used self passive stretch Comments good feedback stretch SKTC Supine Exercise Name SKTC and ER Side bilateral Reps/Minutes 2x30 Comments manual HS stretch Side bilateral Reps/Minutes 2x30 Comments manual Sitting Exercises row, sh ext Sitting Exercise Name rows, ext Resistance L2> #5 blue TB, therapist anchor Equipment Used sitting on Dynadisc (yellow) black table/feet on blue disc Reps/Minutes x20 reps then 10 reps 5SH, ext x20 reps Comments good form, slow pacing resisted trunk rotation Sitting Exercise Name rotation and pull down (rear facing) Resistance orange> #4 blue TB, anchored at wall Equipment Used seated in wc end tx Reps/Minutes 15x each Comments cued sit front wc, slight lean back during pulldown core fac Gait Training Gait Activity FWW Device Used FWW Level of Assistance CGA w/ wc follow Distance/Duration 77, 30 ft Treatment Focus safety, activity tolerance, posture Comments cued as needed TKE L>R LE, improved distance. Neuro Re-Education Treatment Balance Activities lean backs Surface yellow Dyadisc on mat, LEs on blue disc sittin bal Details 1. balloon 2. catch throw 3. reach touch therapist Surface 1:1 Equipment yellow Dynadisc on mat, blue disc under feet Reps/Duration 15 min Comments encouraged cross body wt shift . self recovery UE contact table when over shift lateral x4. PT-OP-T Assessment and Plan Start: 09/24/22 09:30 Freq: Status: Active Protocol: Document 10/28/22 13:35 SP (Rec: 10/28/22 14:57 SP [id number]) Physical Therapy Assessment Goals Three Impairment pain right shoulder and low back Impairment diffiuclty performing ADL's due to pain and pain in right shoulder limits gait due to heavy use of walker Sewer Goal (LTG) Patient to report at least 50% decrease in pain with all usual activities and be independent with HEP for purposes of core stab, shoulder strengthening and stab LTG Duration 12/25/22 One Impairment gait dysfunction Impairment 2 min walk test 127 ft, not able to tolerate 6 min walk test due to fatigue UE's from supporting body on walker and LE fatigue requiring 2 brief standing breaks, needing to stop at 2 min Short Term Goal (STG) Improve 2 min walk test to at least 150 ft as measure of improved functional gait STG Duration 11/08/22 Jail Goal (LTG) Patient able to tolerate 6 min walk test with gait distance of at least 300 ft as measure of improved functional gait LTG Duration 12/25/22 Four Impairment weakness Impairment 5x sit to stand test 15 sec with moderate use of hands moderate core muscle weakness with less than anti-gravity strength Short Term Goal (STG) Patient to be independent and compliant with updated HEP for purposes of LE and trunk muscle strengthenng STG Duration 11/08/22 Jail Goal (LTG) Patient able to perform 5x sit to stand test in 10 sec as measure of improved functional LE strength and demonstrate 1 grade improvement in trunk muscle strength for improved safety with ADL performance LTG Duration 12/25/22 Two Impairment balance dysfunction Impairment Tinetti gait and balance assessment 11/16 indicating patient at high risk for falls static standing 44 sec without holding on Short Term Goal (STG) Patient to be independent and compliant with gait and balance HEP STG Duration 11/08/22 Sewer Goal (LTG) Improve Tinetti gait and balance assessment score to moderate fall risk range to improve safety in the home and community improve static standing balance to at least 60 sec LTG Duration 12/25/22 Assessment Summary Assessment Pt improved seated stability catch throw BUEs (no UE support, seated uneven disc and under feet), self trunk wt shifts no LOB. Pt challenged R TKE into full ext shuttle recovery end tx. Physical Therapy Plan Frequency and Duration Frequency of Treatment 1x/Week Duration of treatment (weeks) 12 Plan of Care Start Date 09/24/22 Plan of Care End Date 12/25/22 Therapeutic Interventions Therapeutic Interventions Balance Training,Home Exercise Program,Manual Therapy, Neuromuscular Re-education, Patient/Caregiver Education, Self-Care/Home Management,Soft Tissue Mobilization,Taping, Therapeutic Activities, Therapeutic Exercises Modalities Cold Pack/Ice Massage,Hot Packs Next Visit Focus/Plan Next Note Type Treatment Note Next Visit Plan Ask esphagus expansion procedure. POC: Continue shoulder strengthening, balance and gait training. STM periscap.
--- NOTE | 2022-11-05 16:41 | PT.OTN ---
Current Diagnoses Multiple sclerosis (11/05/22) Physical Therapy Treatment Note PT-OP-A Visit Information Start: 09/24/22 09:30 Freq: Status: Active Protocol: Document 11/05/22 12:33 SAK (Rec: 11/05/22 13:18 [facility] [id number]) Out-Patient Physical Therapy Visit Information Visit Information Visit Type Treatment Note Visit Start Time 12:31 Visit Stop Time 13:11 Total Visit Minutes 40 Visit Number 7 Number of TRAIN OPERATIONS MANAGER Visits 0 Evaluation Information Evaluation Date 09/24/22 Precautions Precautions MS, don't overfatigue, esophageal stenosis PT-OP-B Current Condition Start: 09/24/22 09:30 Freq: Status: Active Protocol: Document 10/05/22 12:33 SAK (Rec: 10/05/22 13:19 [facility] [id number]) Current Condition History of Current Condition Onset Date March 2019 Current Complaints weakness due to MS, right shoulder pain, LBP History of Current Condition history MS with worsening weakness, as well as right shoulder pain (patient right handed). Patient has caregiver who assists her primarily with household tasks, HEP, walking. She uses a 4WW to walk short diestances (approx 30 feet) in the home, manual w /c for community mobility. No recent falls, but has history of falls. Reports was evaluated for power wheelchair recently but was denied. C/o right shoulder pain and tightness especially with reaching and propelling manual w/c. Well known to this PT for both land and aquatic- based PT. Prior Treatments and Tests prior PT; land and aquatic Future Testing and Treatments Planned nothing planned yet Treatment Goals Patient/Caregiver Goals improve core strength, decrease right shoulder pain, improve gait and balance PT-OP-C Subjective Start: 09/24/22 09:30 Freq: Status: Active Protocol: Document 11/05/22 12:33 SAK (Rec: 11/05/22 13:18 [facility] [id number]) OP-PT Subjective Patient Comments Patient Comments Hasn't been doing arm ex as much as LE ex. Has been more tired as she is having more esophageal difficulty as well as hot weather. PT-OP-D Balance Start: 09/24/22 09:30 Freq: Status: Active Protocol: Document 09/24/22 09:06 SAK (Rec: 09/28/22 11:39 [facility] [id number]) Tinetti Balance Assessment Sitting Balance Sitting Balance Steady, safe Standing Balance Immediate Standing Balance Steady with support Turning Step Pattern Turning 360 Degrees Discontinuous steps Sitting Down Sitting Down Uses arms or unsteady Gait and Step Initiation of Gait Hesitancy, mult. attempts Right Foot Step Length Does not pass stance ft. Right Foot Step Height Does not clear floor Left Foot Step Length Does not pass stance foot Left Foot Step Height Does not clear floor Step Description Step Symmetry Step length appears equal Step Continuity Stopping or discontinuity Gait Description Path Description Mild/moderate deviation Trunk Description Marked sway or uses aide Walking Stance Heels apart Scoring and Interpretation Tinetti Composite Score (points) 5 PT-OP-E Functional Tests Start: 09/24/22 09:30 Freq: Status: Active Protocol: Document 09/24/22 09:06 [facility] (Rec: 09/28/22 11:39 [facility] [id number]) Functional Tests 2 Minute Walk Test Distance 127 Device Used 4WW PT-OP-G Mobility & Gait Start: 09/24/22 09:30 Freq: Status: Active Protocol: Document 09/24/22 09:06 [facility] (Rec: 09/28/22 11:39 [facility] [id number]) OP Mobility Evaluation Bed Mobility Supine to and from Sit indep Transfers Bed to Chair Transfers indep Car Transfers assisted Floor Transfers not performed OP Gait Assessment Gait Gait Assistance Required: Minimum Assistance Distance (Feet) 127 Assistive Devices Assistive Device Gait Belt,Front Wheeled Walker Orthotic/Prosthetic Devices or Brace: No Gait Deviations General Gait Pattern Decreased Stride Length, Decreased Feet Clearance, Flexed Trunk Factors Limiting Gait Function Factors Limiting Gait Function Abnormal Tonal Influences, Decreased Activity Tolerance, Decreased Strength,Pain Stair Climbing Evaluation Comments Stair Climbing Comments unable PT-OP-H Neuro Start: 09/24/22 09:30 Freq: Status: Active Protocol: Document 09/24/22 09:06 [facility] (Rec: 09/28/22 11:39 [facility] [id number]) Sensation Evaluation Gross Sensation Gross Sensation Left LE Impaired,Right LE Impaired,Trunk Impaired PT-OP-J Posture/Palpation/Skin Start: 09/24/22 09:30 Freq: Status: Active Protocol: Document 09/24/22 09:06 [facility] (Rec: 09/28/22 11:39 [facility] [id number]) Posture Evaluation Position Sitting Head/C-Spine Posture Forward Head Shoulder Posture (L) Rounded,(R) Rounded Shoulder Subluxation Position (L) Anterior,(R) Anterior Scapula Posture (L) Protracted,(R) Protracted Arm Posture (L) Internally Rotated,(R) Internally Rotated PT-OP-K Range of Motion Start: 09/24/22 09:30 Freq: Status: Active Protocol: Document 09/24/22 09:06 [facility] (Rec: 09/28/22 11:39 [facility] [id number]) Hip Goniometric Range of Motion Hip chelle Straight Leg Raise 145 Hip ROM Limitations Hip ROM Limitations Soft Tissue Tightness Ankle and Foot Goniometric Range of Motion Ankle and Foot chelle Dorsiflexion with Knee Flexed 0 Ankle and Foot ROM Limitations ROM Limitations Soft Tissue Tightness PT-OP-M Strength Start: 09/24/22 09:30 Freq: Status: Active Protocol: Document 09/24/22 09:31 [facility] (Rec: 09/24/22 10:22 [facility] [id number]) Trunk Strength Trunk Manual Muscle Testing Flexion 3- Fair- Extension 2+ Poor+ Rotation Left 3- Fair- Rotation Right 3- Fair- Lateral Flexion Left 3- Fair- Lateral Flexion Right 3- Fair- Scapula Strength Scapula Manual Muscle Testing chelle Elevation (C4) 4+ Good+ Adduction 3+ Fair+ Abduction 3 Fair Depression 3+ Fair+ Shoulder Strength Shoulder Manual Muscle Testing Left Flexion 4 Good Extension 4 Good Abduction (C5) 4 Good Adduction 4 Good External Rotation 4 Good Internal Rotation 4 Good Horizontal Abduction 4 Good Horizontal Adduction 4 Good Right Flexion 4 Good Extension 4 Good Abduction (C5) 4 Good Adduction 4 Good External Rotation 4 Good Internal Rotation 4 Good Horizontal Abduction 4 Good Horizontal Adduction 4 Good Elbow/Forearm Strength Elbow and Forearm Manual Muscle Testing Left Flexion (C6) 4 Good Extension (C7) 4 Good Right Comments pain with resisted flex,ab,ER Hip Strength Hip Manual Muscle Testing Left Flexion (L2) 4- Good- Abduction 3- Fair- Adduction 3+ Fair+ Right Flexion (L2) 4- Good- Abduction 2+ Poor+ Adduction 3+ Fair+ Knee Strength Knee Manual Muscle Testing Left Flexion (S2) 4 Good Extension (L3) 4 Good Right Flexion (S2) 4- Good- Extension (L3) 4- Good- Ankle/Foot Strength Ankle and Foot Manual Muscle Testing Left Dorsiflexion (L4) 3+ Fair+ Plantarflexion (S1) 3+ Fair+ Right Dorsiflexion (L4) 3+ Fair+ Plantarflexion (S1) 3+ Fair+ PT-OP-Q Treatments Start: 09/24/22 09:30 Freq: Status: Active Protocol: Document 11/05/22 12:33 [facility] (Rec: 11/05/22 13:18 [facility] [id number]) Gym Equipment Shuttle Recovery Unilateral Squats Resistance 25 (new band) Shuttle Recovery Platform Stable Reps/Time 10x Bilateral Squats Details Squats with manual support to ankles and knees Resistance 62 (2>1 new band) Shuttle Recovery Platform Stable Reps/Time 15x cued . Therapeutic Exercises Supine Exercises LTR Supine Exercise Name reviewed self/ previous TA/ QL stretch Side bilateral Reps/Minutes 5 SH x5 Comments good stretch, L hip flexor spasming to L initially hip flexor stretch Resistance mat table LEs off edge Equipment Used self passive stretch Comments good feedback stretch SKTC Supine Exercise Name SKTC and ER Side bilateral Reps/Minutes 2x30 Comments manual HS stretch Side bilateral Reps/Minutes 2x30 Comments manual Sitting Exercises row, sh ext Sitting Exercise Name rows, ext Resistance L2> , therapist anchor Equipment Used sitting on Dynadisc (yellow) black table/feet on blue disc Reps/Minutes 10x 5 Comments good form, slow pacing Gait Training Gait Activity FWW Device Used FWW Level of Assistance CGA w/ wc follow Distance/Duration 75, 20x2 ft Treatment Focus safety, activity tolerance, posture Comments cued as needed TKE L>R LE, improved distance. Neuro Re-Education Treatment Balance Activities lean backs Surface yellow Dyadisc on mat, LEs on blue disc PT-OP-T Assessment and Plan Start: 09/24/22 09:30 Freq: Status: Active Protocol: Document 11/05/22 12:33 [facility] (Rec: 11/05/22 13:18 [facility] [id number]) Physical Therapy Assessment Goals Three Impairment pain right shoulder and low back Impairment diffiuclty performing ADL's due to pain and pain in right shoulder limits gait due to heavy use of walker Concessionist Goal (LTG) Patient to report at least 50% decrease in pain with all usual activities and be independent with HEP for purposes of core stab, shoulder strengthening and stab LTG Duration 12/25/22 One Impairment gait dysfunction Impairment 2 min walk test 127 ft, not able to tolerate 6 min walk test due to fatigue UE's from supporting body on walker and LE fatigue requiring 2 brief standing breaks, needing to stop at 2 min Short Term Goal (STG) Improve 2 min walk test to at least 150 ft as measure of improved functional gait STG Duration 11/08/22 Concessionist Goal (LTG) Patient able to tolerate 6 min walk test with gait distance of at least 300 ft as measure of improved functional gait LTG Duration 12/25/22 Four Impairment weakness Impairment 5x sit to stand test 15 sec with moderate use of hands moderate core muscle weakness with less than anti-gravity strength Short Term Goal (STG) Patient to be independent and compliant with updated HEP for purposes of LE and trunk muscle strengthenng STG Duration 11/08/22 Concessionist Goal (LTG) Patient able to perform 5x sit to stand test in 10 sec as measure of improved functional LE strength and demonstrate 1 grade improvement in trunk muscle strength for improved safety with ADL performance LTG Duration 12/25/22 Two Impairment balance dysfunction Impairment Tinetti gait and balance assessment 11/16 indicating patient at high risk for falls static standing 44 sec without holding on Short Term Goal (STG) Patient to be independent and compliant with gait and balance HEP STG Duration 11/08/22 Correction Goal (LTG) Improve Tinetti gait and balance assessment score to moderate fall risk range to improve safety in the home and community improve static standing balance to at least 60 sec LTG Duration 12/25/22 Assessment Summary Assessment Lower activity chuck/ inc fatigue today due to hot weather and esophageal issues. Having esophageal procedure next week. Physical Therapy Plan Frequency and Duration Frequency of Treatment 1x/Week Duration of treatment (weeks) 12 Plan of Care Start Date 09/24/22 Plan of Care End Date 12/25/22 Therapeutic Interventions Therapeutic Interventions Balance Training,Home Exercise Program,Manual Therapy, Neuromuscular Re-education, Patient/Caregiver Education, Self-Care/Home Management,Soft Tissue Mobilization,Taping, Therapeutic Activities, Therapeutic Exercises Modalities Cold Pack/Ice Massage,Hot Packs Next Visit Focus/Plan Next Note Type Treatment Note Next Visit Plan Patient to have esophageal procedure next week, so won't be seen in PT for 2 weeks. Continue PT per POC
--- NOTE | 2022-11-18 14:25 | PT.OTN ---
Current Diagnoses Multiple sclerosis (11/18/22) Physical Therapy Treatment Note PT-OP-A Visit Information Start: 09/24/22 09:30 Freq: Status: Active Protocol: Document 11/18/22 12:33 SAK (Rec: 11/18/22 13:22 [facility] [id number]) Out-Patient Physical Therapy Visit Information Visit Information Visit Type Treatment Note Visit Start Time 12:33 Visit Stop Time 13:15 Total Visit Minutes 42 Visit Number 8 Number of BLENDER OPERATOR Visits 0 Evaluation Information Evaluation Date 09/24/22 Precautions Precautions MS, don't overfatigue, esophageal stenosis PT-OP-B Current Condition Start: 09/24/22 09:30 Freq: Status: Active Protocol: Document 10/05/22 12:33 SAK (Rec: 10/05/22 13:19 [facility] [id number]) Current Condition History of Current Condition Onset Date March 2019 Current Complaints weakness due to MS, right shoulder pain, LBP History of Current Condition history MS with worsening weakness, as well as right shoulder pain (patient right handed). Patient has caregiver who assists her primarily with household tasks, HEP, walking. She uses a 4WW to walk short diestances (approx 30 feet) in the home, manual w /c for community mobility. No recent falls, but has history of falls. Reports was evaluated for power wheelchair recently but was denied. C/o right shoulder pain and tightness especially with reaching and propelling manual w/c. Well known to this PT for both land and aquatic- based PT. Prior Treatments and Tests prior PT; land and aquatic Future Testing and Treatments Planned nothing planned yet Treatment Goals Patient/Caregiver Goals improve core strength, decrease right shoulder pain, improve gait and balance PT-OP-C Subjective Start: 09/24/22 09:30 Freq: Status: Active Protocol: Document 11/18/22 12:33 SAK (Rec: 11/18/22 13:22 [facility] [id number]) OP-PT Subjective Patient Comments Patient Comments Had esophageal procedure, went well, can breath easier, coughing more. States right foot feels numb today, might be because cold. PT-OP-D Balance Start: 09/24/22 09:30 Freq: Status: Active Protocol: Document 09/24/22 09:06 SAK (Rec: 09/28/22 11:39 [facility] [id number]) Tinetti Balance Assessment Sitting Balance Sitting Balance Steady, safe Standing Balance Immediate Standing Balance Steady with support Turning Step Pattern Turning 360 Degrees Discontinuous steps Sitting Down Sitting Down Uses arms or unsteady Gait and Step Initiation of Gait Hesitancy, mult. attempts Right Foot Step Length Does not pass stance ft. Right Foot Step Height Does not clear floor Left Foot Step Length Does not pass stance foot Left Foot Step Height Does not clear floor Step Description Step Symmetry Step length appears equal Step Continuity Stopping or discontinuity Gait Description Path Description Mild/moderate deviation Trunk Description Marked sway or uses aide Walking Stance Heels apart Scoring and Interpretation Tinetti Composite Score (points) 5 PT-OP-E Functional Tests Start: 09/24/22 09:30 Freq: Status: Active Protocol: Document 09/24/22 09:06 [facility] (Rec: 09/28/22 11:39 [facility] [id number]) Functional Tests 2 Minute Walk Test Distance 127 Device Used 4WW PT-OP-G Mobility & Gait Start: 09/24/22 09:30 Freq: Status: Active Protocol: Document 09/24/22 09:06 [facility] (Rec: 09/28/22 11:39 [facility] [id number]) OP Mobility Evaluation Bed Mobility Supine to and from Sit indep Transfers Bed to Chair Transfers indep Car Transfers assisted Floor Transfers not performed OP Gait Assessment Gait Gait Assistance Required: Minimum Assistance Distance (Feet) 127 Assistive Devices Assistive Device Gait Belt,Front Wheeled Walker Orthotic/Prosthetic Devices or Brace: No Gait Deviations General Gait Pattern Decreased Stride Length, Decreased Feet Clearance, Flexed Trunk Factors Limiting Gait Function Factors Limiting Gait Function Abnormal Tonal Influences, Decreased Activity Tolerance, Decreased Strength,Pain Stair Climbing Evaluation Comments Stair Climbing Comments unable PT-OP-H Neuro Start: 09/24/22 09:30 Freq: Status: Active Protocol: Document 09/24/22 09:06 [facility] (Rec: 09/28/22 11:39 [facility] [id number]) Sensation Evaluation Gross Sensation Gross Sensation Left LE Impaired,Right LE Impaired,Trunk Impaired PT-OP-J Posture/Palpation/Skin Start: 09/24/22 09:30 Freq: Status: Active Protocol: Document 09/24/22 09:06 [facility] (Rec: 09/28/22 11:39 [facility] [id number]) Posture Evaluation Position Sitting Head/C-Spine Posture Forward Head Shoulder Posture (L) Rounded,(R) Rounded Shoulder Subluxation Position (L) Anterior,(R) Anterior Scapula Posture (L) Protracted,(R) Protracted Arm Posture (L) Internally Rotated,(R) Internally Rotated PT-OP-K Range of Motion Start: 09/24/22 09:30 Freq: Status: Active Protocol: Document 09/24/22 09:06 [facility] (Rec: 09/28/22 11:39 [facility] [id number]) Hip Goniometric Range of Motion Hip chelle Straight Leg Raise 145 Hip ROM Limitations Hip ROM Limitations Soft Tissue Tightness Ankle and Foot Goniometric Range of Motion Ankle and Foot chelle Dorsiflexion with Knee Flexed 0 Ankle and Foot ROM Limitations ROM Limitations Soft Tissue Tightness PT-OP-M Strength Start: 09/24/22 09:30 Freq: Status: Active Protocol: Document 09/24/22 09:31 [facility] (Rec: 09/24/22 10:22 [facility] [id number]) Trunk Strength Trunk Manual Muscle Testing Flexion 3- Fair- Extension 2+ Poor+ Rotation Left 3- Fair- Rotation Right 3- Fair- Lateral Flexion Left 3- Fair- Lateral Flexion Right 3- Fair- Scapula Strength Scapula Manual Muscle Testing chelle Elevation (C4) 4+ Good+ Adduction 3+ Fair+ Abduction 3 Fair Depression 3+ Fair+ Shoulder Strength Shoulder Manual Muscle Testing Left Flexion 4 Good Extension 4 Good Abduction (C5) 4 Good Adduction 4 Good External Rotation 4 Good Internal Rotation 4 Good Horizontal Abduction 4 Good Horizontal Adduction 4 Good Right Flexion 4 Good Extension 4 Good Abduction (C5) 4 Good Adduction 4 Good External Rotation 4 Good Internal Rotation 4 Good Horizontal Abduction 4 Good Horizontal Adduction 4 Good Elbow/Forearm Strength Elbow and Forearm Manual Muscle Testing Left Flexion (C6) 4 Good Extension (C7) 4 Good Right Comments pain with resisted flex,ab,ER Hip Strength Hip Manual Muscle Testing Left Flexion (L2) 4- Good- Abduction 3- Fair- Adduction 3+ Fair+ Right Flexion (L2) 4- Good- Abduction 2+ Poor+ Adduction 3+ Fair+ Knee Strength Knee Manual Muscle Testing Left Flexion (S2) 4 Good Extension (L3) 4 Good Right Flexion (S2) 4- Good- Extension (L3) 4- Good- Ankle/Foot Strength Ankle and Foot Manual Muscle Testing Left Dorsiflexion (L4) 3+ Fair+ Plantarflexion (S1) 3+ Fair+ Right Dorsiflexion (L4) 3+ Fair+ Plantarflexion (S1) 3+ Fair+ PT-OP-Q Treatments Start: 09/24/22 09:30 Freq: Status: Active Protocol: Document 11/18/22 12:33 [facility] (Rec: 11/18/22 13:22 [facility] [id number]) Therapeutic Exercises Supine Exercises piriformis stretch Side bilateral Reps/Minutes 2x30 Comments manual HC stretch Side bilateral Reps/Minutes 2x30 Comments manual hip flexor stretch Resistance mat table LEs off edge Equipment Used self passive stretch Comments good feedback stretch SKTC Supine Exercise Name SKTC and ER Side bilateral Reps/Minutes 2x30 Comments manual HS stretch Side bilateral Reps/Minutes 2x30 Comments manual Sitting Exercises row, sh ext Sitting Exercise Name rows, ext Resistance L2> , therapist anchor Equipment Used sitting on Dynadisc (yellow) black table/feet on blue disc Reps/Minutes 10x 5 Comments good form, slow pacing resisted trunk rotation Sitting Exercise Name rotation and pull down (rear facing) Resistance orange> #4 blue TB, anchored at wall Equipment Used seated in wc end tx Reps/Minutes 15x each Comments cued sit front wc, slight lean back during pulldown core fac sh ER Side bilateral Resistance Tb #4 blue Equipment Used seated on black table and yellow dynadisc Reps/Minutes 8 reps, 5 SH x5 reps Comments cued palm up good slow pacing Gait Training Gait Activity FWW Device Used FWW Level of Assistance CGA w/ wc follow Distance/Duration 75 ft Treatment Focus safety, activity tolerance, posture Comments less tolerance, right foot feels weird, numb. Neuro Re-Education Treatment Balance Activities lean backs Surface yellow Dyadisc on mat, LEs on blue disc sittin bal Details 1. balloon 2. catch throw 3. reach touch therapist Surface 1:1 Equipment yellow Dynadisc on mat, blue disc under feet Reps/Duration 15 min Comments encouraged cross body wt shift . self recovery UE contact table when over shift lateral x4. PT-OP-T Assessment and Plan Start: 09/24/22 09:30 Freq: Status: Active Protocol: Document 11/18/22 12:33 [facility] (Rec: 11/18/22 13:22 [facility] [id number]) Physical Therapy Assessment Goals Three Impairment pain right shoulder and low back Impairment diffiuclty performing ADL's due to pain and pain in right shoulder limits gait due to heavy use of walker Group Home Goal (LTG) Patient to report at least 50% decrease in pain with all usual activities and be independent with HEP for purposes of core stab, shoulder strengthening and stab LTG Duration 12/25/22 One Impairment gait dysfunction Impairment 2 min walk test 127 ft, not able to tolerate 6 min walk test due to fatigue UE's from supporting body on walker and LE fatigue requiring 2 brief standing breaks, needing to stop at 2 min Short Term Goal (STG) Improve 2 min walk test to at least 150 ft as measure of improved functional gait STG Duration 11/08/22 Group Home Goal (LTG) Patient able to tolerate 6 min walk test with gait distance of at least 300 ft as measure of improved functional gait LTG Duration 12/25/22 Four Impairment weakness Impairment 5x sit to stand test 15 sec with moderate use of hands moderate core muscle weakness with less than anti-gravity strength Short Term Goal (STG) Patient to be independent and compliant with updated HEP for purposes of LE and trunk muscle strengthenng STG Duration 11/08/22 Group Home Goal (LTG) Patient able to perform 5x sit to stand test in 10 sec as measure of improved functional LE strength and demonstrate 1 grade improvement in trunk muscle strength for improved safety with ADL performance LTG Duration 12/25/22 Two Impairment balance dysfunction Impairment Tinetti gait and balance assessment 11/16 indicating patient at high risk for falls static standing 44 sec without holding on Short Term Goal (STG) Patient to be independent and compliant with gait and balance HEP STG Duration 11/08/[address] Goal (LTG) Improve Tinetti gait and balance assessment score to moderate fall risk range to improve safety in the home and community improve static standing balance to at least 60 sec LTG Duration 12/25/22 Assessment Summary Assessment lower tolerance for gait and ther ex, inc fatigue. Increased rest break required and dec ambulation distance. still recovering from esophageal procedure Physical Therapy Plan Frequency and Duration Frequency of Treatment 1x/Week Duration of treatment (weeks) 12 Plan of Care Start Date 09/24/22 Plan of Care End Date 12/25/22 Therapeutic Interventions Therapeutic Interventions Balance Training,Home Exercise Program,Manual Therapy, Neuromuscular Re-education, Patient/Caregiver Education, Self-Care/Home Management,Soft Tissue Mobilization,Taping, Therapeutic Activities, Therapeutic Exercises Modalities Cold Pack/Ice Massage,Hot Packs Next Visit Focus/Plan Next Visit Plan Patient to be gone on vacation x 1 month, will see next on December 1233
--- NOTE | 2022-12-17 13:16 | PT.OTN ---
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 Patient has caregiver who assists her primarily with household tasks, HEP, walking. She uses a 4WW to walk short diestances (approx 30 feet) in the home, manual w /c for community mobility. No recent falls, but has history of falls. Reports was evaluated for power wheelchair recently but was denied. C/o right shoulder pain and tightness especially with reaching and propelling manual w/c. Well known to this PT for both land and aquatic- based PT. Prior Treatments and Tests prior PT; land and aquatic Future Testing and Treatments Planned nothing planned yet Treatment Goals Patient/Caregiver Goals improve core strength, decrease right shoulder pain, improve gait and balance PT-OP-C Subjective Start: 09/24/22 09:30 Freq: Status: Active Protocol: Document 12/17/22 12:35 SAK (Rec: 12/17/22 13:16 [facility] [id number]) OP-PT Subjective Patient Comments Patient Comments Just back from 3 week trip, used power chair which is not at a good angle for her back. Didn't take a walker. ! controlled fall on airplane x 1, assisted by flight attendents. No injury. 2 falls tipping power chair over , scrapes and bruises, otherwise no injury. PT-OP-D Balance Start: 09/24/22 09:30 Freq: Status: Active Protocol: Document 09/24/22 09:06 [facility] (Rec: 09/28/22 11:39 [facility] [id number]) Tinetti Balance Assessment Sitting Balance Sitting Balance Steady, safe Standing Balance Immediate Standing Balance Steady with support Turning Step Pattern Turning 360 Degrees Discontinuous steps Sitting Down Sitting Down Uses arms or unsteady Gait and Step Initiation of Gait Hesitancy, mult. attempts Right Foot Step Length Does not pass stance ft. Right Foot Step Height Does not clear floor Left Foot Step Length Does not pass stance foot Left Foot Step Height Does not clear floor Step Description Step Symmetry Step length appears equal Step Continuity Stopping or discontinuity Gait Description Path Description Mild/moderate deviation Trunk Description Marked sway or uses aide Walking Stance Heels apart Scoring and Interpretation Tinetti Composite Score (points) 5 PT-OP-E Functional Tests Start: 09/24/22 09:30 Freq: Status: Active Protocol: Document 09/24/22 09:06 [facility] (Rec: 09/28/22 11:39 [facility] [id number]) Functional Tests 2 Minute Walk Test Distance 127 Device Used 4WW PT-OP-G Mobility & Gait Start: 09/24/22 09:30 Freq: Status: Active Protocol: Document 09/24/22 09:06 [facility] (Rec: 09/28/22 11:39 [facility] [id number]) OP Mobility Evaluation Bed Mobility Supine to and from Sit indep Transfers Bed to Chair Transfers indep Car Transfers assisted Floor Transfers not performed OP Gait Assessment Gait Gait Assistance Required: Minimum Assistance Distance (Feet) 127 Assistive Devices Assistive Device Gait Belt,Front Wheeled Walker Orthotic/Prosthetic Devices or Brace: No Gait Deviations General Gait Pattern Decreased Stride Length, Decreased Feet Clearance, Flexed Trunk Factors Limiting Gait Function Factors Limiting Gait Function Abnormal Tonal Influences, Decreased Activity Tolerance, Decreased Strength,Pain Stair Climbing Evaluation Comments Stair Climbing Comments unable PT-OP-H Neuro Start: 09/24/22 09:30 Freq: Status: Active Protocol: Document 09/24/22 09:06 [facility] (Rec: 09/28/22 11:39 [facility] [id number]) Sensation Evaluation Gross Sensation Gross Sensation Left LE Impaired,Right LE Impaired,Trunk Impaired PT-OP-J Posture/Palpation/Skin Start: 09/24/22 09:30 Freq: Status: Active Protocol: Document 09/24/22 09:06 [facility] (Rec: 09/28/22 11:39 [facility] [id number]) Posture Evaluation Position Sitting Head/C-Spine Posture Forward Head Shoulder Posture (L) Rounded,(R) Rounded Shoulder Subluxation Position (L) Anterior,(R) Anterior Scapula Posture (L) Protracted,(R) Protracted Arm Posture (L) Internally Rotated,(R) Internally Rotated PT-OP-K Range of Motion Start: 09/24/22 09:30 Freq: Status: Active Protocol: Document 09/24/22 09:06 [facility] (Rec: 09/28/22 11:39 [facility] [id number]) Hip Goniometric Range of Motion Hip chelle Straight Leg Raise 145 Hip ROM Limitations Hip ROM Limitations Soft Tissue Tightness Ankle and Foot Goniometric Range of Motion Ankle and Foot chelle Dorsiflexion with Knee Flexed 0 Ankle and Foot ROM Limitations ROM Limitations Soft Tissue Tightness PT-OP-M Strength Start: 09/24/22 09:30 Freq: Status: Active Protocol: Document 09/24/22 09:31 [facility] (Rec: 09/24/22 10:22 [facility] [id number]) Trunk Strength Trunk Manual Muscle Testing Flexion 3- Fair- Extension 2+ Poor+ Rotation Left 3- Fair- Rotation Right 3- Fair- Lateral Flexion Left 3- Fair- Lateral Flexion Right 3- Fair- Scapula Strength Scapula Manual Muscle Testing chelle Elevation (C4) 4+ Good+ Adduction 3+ Fair+ Abduction 3 Fair Depression 3+ Fair+ Shoulder Strength Shoulder Manual Muscle Testing Left Flexion 4 Good Extension 4 Good Abduction (C5) 4 Good Adduction 4 Good External Rotation 4 Good Internal Rotation 4 Good Horizontal Abduction 4 Good Horizontal Adduction 4 Good Right Flexion 4 Good Extension 4 Good Abduction (C5) 4 Good Adduction 4 Good External Rotation 4 Good Internal Rotation 4 Good Horizontal Abduction 4 Good Horizontal Adduction 4 Good Elbow/Forearm Strength Elbow and Forearm Manual Muscle Testing Left Flexion (C6) 4 Good Extension (C7) 4 Good Right Comments pain with resisted flex,ab,ER Hip Strength Hip Manual Muscle Testing Left Flexion (L2) 4- Good- Abduction 3- Fair- Adduction 3+ Fair+ Right Flexion (L2) 4- Good- Abduction 2+ Poor+ Adduction 3+ Fair+ Knee Strength Knee Manual Muscle Testing Left Flexion (S2) 4 Good Extension (L3) 4 Good Right Flexion (S2) 4- Good- Extension (L3) 4- Good- Ankle/Foot Strength Ankle and Foot Manual Muscle Testing Left Dorsiflexion (L4) 3+ Fair+ Plantarflexion (S1) 3+ Fair+ Right Dorsiflexion (L4) 3+ Fair+ Plantarflexion (S1) 3+ Fair+ PT-OP-Q Treatments Start: 09/24/22 09:30 Freq: Status: Active Protocol: Document 12/17/22 12:35 [facility] (Rec: 12/17/22 13:16 [facility] [id number]) Therapeutic Exercises Supine Exercises IT band stretch Reps/Minutes 2x30 Comments manual figure 4 Reps/Minutes 2x30 piriformis stretch Side bilateral Reps/Minutes 2x30 Comments manual HC stretch Side bilateral Reps/Minutes 2x30 Comments manual LTR Supine Exercise Name reviewed self/ previous TA/ QL stretch Side bilateral Equipment Used 65 cm ball Reps/Minutes 5 SH x5 Comments good stretch, L hip flexor spasming to L initially hip flexor stretch Resistance mat table LEs off edge Equipment Used self passive stretch Comments good feedback stretch SKTC Supine Exercise Name SKTC and ER Side bilateral Reps/Minutes 2x30 Comments manual Sitting Exercises row, sh ext Sitting Exercise Name rows, ext Resistance L2> , therapist anchor Equipment Used sitting on Dynadisc (yellow) black table/feet on blue disc Reps/Minutes 10x 5 Comments good form, slow pacing resisted trunk rotation Sitting Exercise Name rotation and pull down (rear facing) Resistance orange> #4 blue TB, anchored at wall Equipment Used seated in wc end tx Reps/Minutes 15x each Comments cued sit front wc, slight lean back during pulldown core fac sh ER Side bilateral Resistance Tb #2 Equipment Used seated on black table, blue dynadisc under bottom, yellow under feet Reps/Minutes 8 reps, 5 SH x5 reps Comments cued palm up good slow pacing Gait Training Gait Activity FWW Device Used FWW Level of Assistance CGA w/ wc follow Distance/Duration 75 ft Treatment Focus safety, activity tolerance, posture Comments less tolerance, right foot feels weird, numb. Neuro Re-Education Treatment Balance Activities lean backs Surface yellow Dyadisc on mat, LEs on blue disc sittin bal Details 1. balloon 2. catch throw 3. reach touch therapist Surface 1:1 Equipment yellow Dynadisc on mat, blue disc under feet Reps/Duration 15 min Comments encouraged cross body wt shift . self recovery UE contact table when over shift lateral x4. PT-OP-T Assessment and Plan Start: 09/24/22 09:30 Freq: Status: Active Protocol: Document 12/17/22 12:35 [facility] (Rec: 12/17/22 13:16 [facility] [id number]) Physical Therapy Assessment Goals Three Impairment pain right shoulder and low back Impairment diffiuclty performing ADL's due to pain and pain in right shoulder limits gait due to heavy use of walker Retirement Goal (LTG) Patient to report at least 50% decrease in pain with all usual activities and be independent with HEP for purposes of core stab, shoulder strengthening and stab LTG Duration 12/25/22 One Impairment gait dysfunction Impairment 2 min walk test 127 ft, not able to tolerate 6 min walk test due to fatigue UE's from supporting body on walker and LE fatigue requiring 2 brief standing breaks, needing to stop at 2 min Short Term Goal (STG) Improve 2 min walk test to at least 150 ft as measure of improved functional gait STG Duration 11/08/22 Retirement Goal (LTG) Patient able to tolerate 6 min walk test with gait distance of at least 300 ft as measure of improved functional gait LTG Duration 12/25/22 Four Impairment weakness Impairment 5x sit to stand test 15 sec with moderate use of hands moderate core muscle weakness with less than anti-gravity strength Short Term Goal (STG) Patient to be independent and compliant with updated HEP for purposes of LE and trunk muscle strengthenng STG Duration 11/08/22 Retirement Goal (LTG) Patient able to perform 5x sit to stand test in 10 sec as measure of improved functional LE strength and demonstrate 1 grade improvement in trunk muscle strength for improved safety with ADL performance LTG Duration 12/25/22 Two Impairment balance dysfunction Impairment Tinetti gait and balance assessment 11/16 indicating patient at high risk for falls static standing 44 sec without holding on Short Term Goal (STG) Patient to be independent and compliant with gait and balance HEP STG Duration 11/08/22 Retirement Goal (LTG) Improve Tinetti gait and balance assessment score to moderate fall risk range to improve safety in the home and community improve static standing balance to at least 60 sec LTG Duration 12/25/22 Assessment Summary Assessment Pt. fatigued just back from trip to [place], got home last night. Didn't walk x 3 weeks , but able to amb 75' today. Fair exercise tolerance. Physical Therapy Plan Frequency and Duration Frequency of Treatment 1x/Week Duration of treatment (weeks) 12 Plan of Care Start Date 09/24/22 Plan of Care End Date 12/25/22 Therapeutic Interventions Therapeutic Interventions Balance Training,Home Exercise Program,Manual Therapy, Neuromuscular Re-education, Patient/Caregiver Education, Self-Care/Home Management,Soft Tissue Mobilization,Taping, Therapeutic Activities, Therapeutic Exercises Modalities Cold Pack/Ice Massage,Hot Packs Next Visit Focus/Plan Next Note Type Re-Evaluation Next Visit Plan Re-evaluation, continue PT per POC
--- NOTE | 2022-12-24 17:14 | PT.OTRE ---
Current Diagnoses Multiple sclerosis (12/24/22) Past Medical History (Last Updated 07/18/22 @ 11:01 by Rehan Zacarias MD) IUD (intrauterine device) in place Moderate mixed hyperlipidemia not requiring statin therapy Visit Care Team Role Provider Type Bart Doan MD Primary Care Provider Physician Specialty: Internal Medicine Pediatrics Address: [address] [place] [address], [address] Email: [email or web address] Rehan Zacarias MD Family Provider Physician Specialty: Internal Medicine Address: [address] [place] [address], [address] Email: [email or web address] Rufino Umaña MD Attending Provider Non-Staff Referring Provider Specialty: Psychiatry Address: [address] [place] [address], [facility] [address], [place], [address] Email: Physical Therapy Re-Evaluation PT-OP-A Visit Information Start: 09/24/22 09:30 Freq: Status: Active Protocol: Document 12/24/22 12:31 [facility]AK (Rec: 12/24/22 13:17 [facility] [id number]) Out-Patient Physical Therapy Visit Information Visit Information Visit Type Treatment Note Visit Start Time 12:32 Visit Stop Time 13:15 Total Visit Minutes 43 Visit Number 10 Number of MECHANICAL DESIGNER Visits 0 Evaluation Information Evaluation Date 09/24/22 Precautions Precautions MS, don't overfatigue, esophageal stenosis PT-OP-B Current Condition Start: 09/24/22 09:30 Freq: Status: Active Protocol: Document 10/05/22 12:33 SAK (Rec: 10/05/22 13:19 [facility] [id number]) Current Condition History of Current Condition Onset Date March 2019 Current Complaints weakness due to MS, right shoulder pain, LBP History of Current Condition history MS with worsening weakness, as well as right shoulder pain (patient right handed). Patient has caregiver who assists her primarily with household tasks, HEP, walking. She uses a 4WW to walk short diestances (approx 30 feet) in the home, manual w /c for community mobility. No recent falls, but has history of falls. Reports was evaluated for power wheelchair recently but was denied. C/o right shoulder pain and tightness especially with reaching and propelling manual w/c. Well known to this PT for both land and aquatic- based PT. Prior Treatments and Tests prior PT; land and aquatic Future Testing and Treatments Planned nothing planned yet Treatment Goals Patient/Caregiver Goals improve core strength, decrease right shoulder pain, improve gait and balance PT-OP-C Subjective Start: 09/24/22 09:30 Freq: Status: Active Protocol: Document 12/24/22 12:31 [facility] (Rec: 12/24/22 13:17 [facility] [id number]) OP-PT Subjective Patient Comments Patient Comments Reports right shoulder pain due to wheeling wheelchair again (used power chair during vacation). Sees neurologist tomorrow. PT-OP-D Balance Start: 09/24/22 09:30 Freq: Status: Active Protocol: Document 09/24/22 09:06 [facility] (Rec: 09/28/22 11:39 [facility] [id number]) Tinetti Balance Assessment Sitting Balance Sitting Balance Steady, safe Standing Balance Immediate Standing Balance Steady with support Turning Step Pattern Turning 360 Degrees Discontinuous steps Sitting Down Sitting Down Uses arms or unsteady Gait and Step Initiation of Gait Hesitancy, mult. attempts Right Foot Step Length Does not pass stance ft. Right Foot Step Height Does not clear floor Left Foot Step Length Does not pass stance foot Left Foot Step Height Does not clear floor Step Description Step Symmetry Step length appears equal Step Continuity Stopping or discontinuity Gait Description Path Description Mild/moderate deviation Trunk Description Marked sway or uses aide Walking Stance Heels apart Scoring and Interpretation Tinetti Composite Score (points) 5 PT-OP-E Functional Tests Start: 09/24/22 09:30 Freq: Status: Active Protocol: Document 09/24/22 09:06 [facility] (Rec: 09/28/22 11:39 [facility] [id number]) Functional Tests 2 Minute Walk Test Distance 127 Device Used 4WW PT-OP-G Mobility & Gait Start: 09/24/22 09:30 Freq: Status: Active Protocol: Document 09/24/22 09:06 [facility] (Rec: 09/28/22 11:39 [facility] [id number]) OP Mobility Evaluation Bed Mobility Supine to and from Sit indep Transfers Bed to Chair Transfers indep Car Transfers assisted Floor Transfers not performed OP Gait Assessment Gait Gait Assistance Required: Minimum Assistance Distance (Feet) 127 Assistive Devices Assistive Device Gait Belt,Front Wheeled Walker Orthotic/Prosthetic Devices or Brace: No Gait Deviations General Gait Pattern Decreased Stride Length, Decreased Feet Clearance, Flexed Trunk Factors Limiting Gait Function Factors Limiting Gait Function Abnormal Tonal Influences, Decreased Activity Tolerance, Decreased Strength,Pain Stair Climbing Evaluation Comments Stair Climbing Comments unable PT-OP-H Neuro Start: 09/24/22 09:30 Freq: Status: Active Protocol: Document 09/24/22 09:06 [facility] (Rec: 09/28/22 11:39 [facility] [id number]) Sensation Evaluation Gross Sensation Gross Sensation Left LE Impaired,Right LE Impaired,Trunk Impaired PT-OP-J Posture/Palpation/Skin Start: 09/24/22 09:30 Freq: Status: Active Protocol: Document 09/24/22 09:06 [facility] (Rec: 09/28/22 11:39 [facility] [id number]) Posture Evaluation Position Sitting Head/C-Spine Posture Forward Head Shoulder Posture (L) Rounded,(R) Rounded Shoulder Subluxation Position (L) Anterior,(R) Anterior Scapula Posture (L) Protracted,(R) Protracted Arm Posture (L) Internally Rotated,(R) Internally Rotated PT-OP-K Range of Motion Start: 09/24/22 09:30 Freq: Status: Active Protocol: Document 09/24/22 09:06 [facility] (Rec: 09/28/22 11:39 [facility] [id number]) Hip Goniometric Range of Motion Hip Measured in Degrees chelle Straight Leg Raise 145 Hip ROM Limitations Hip ROM Limitations Soft Tissue Tightness Ankle and Foot Goniometric Range of Motion Ankle and Foot Measured in Degrees chelle Dorsiflexion with Knee Flexed 0 Ankle and Foot ROM Limitations ROM Limitations Soft Tissue Tightness PT-OP-M Strength Start: 09/24/22 09:30 Freq: Status: Active Protocol: Document 09/24/22 09:31 [facility] (Rec: 09/24/22 10:22 [facility] [id number]) Trunk Strength Trunk Manual Muscle Testing Flexion 3- Fair- Extension 2+ Poor+ Rotation Left 3- Fair- Rotation Right 3- Fair- Lateral Flexion Left 3- Fair- Lateral Flexion Right 3- Fair- Scapula Strength Scapula Manual Muscle Testing chelle Elevation (C4) 4+ Good+ Adduction 3+ Fair+ Abduction 3 Fair Depression 3+ Fair+ Shoulder Strength Shoulder Manual Muscle Testing Left Flexion 4 Good Extension 4 Good Abduction (C5) 4 Good Adduction 4 Good External Rotation 4 Good Internal Rotation 4 Good Horizontal Abduction 4 Good Horizontal Adduction 4 Good Right Flexion 4 Good Extension 4 Good Abduction (C5) 4 Good Adduction 4 Good External Rotation 4 Good Internal Rotation 4 Good Horizontal Abduction 4 Good Horizontal Adduction 4 Good Elbow/Forearm Strength Elbow and Forearm Manual Muscle Testing Left Flexion (C6) 4 Good Extension (C7) 4 Good Right Comments pain with resisted flex,ab,ER Hip Strength Hip Manual Muscle Testing Left Flexion (L2) 4- Good- Abduction 3- Fair- Adduction 3+ Fair+ Right Flexion (L2) 4- Good- Abduction 2+ Poor+ Adduction 3+ Fair+ Knee Strength Knee Manual Muscle Testing Left Flexion (S2) 4 Good Extension (L3) 4 Good Right Flexion (S2) 4- Good- Extension (L3) 4- Good- Ankle/Foot Strength Ankle and Foot Manual Muscle Testing Left Dorsiflexion (L4) 3+ Fair+ Plantarflexion (S1) 3+ Fair+ Right Dorsiflexion (L4) 3+ Fair+ Plantarflexion (S1) 3+ Fair+ PT-OP-Q Treatments Start: 09/24/22 09:30 Freq: Status: Active Protocol: Document 12/24/22 12:31 [facility] (Rec: 12/24/22 13:17 [facility] [id number]) Therapeutic Exercises Supine Exercises IT band stretch Reps/Minutes 2x30 Comments manual figure 4 Reps/Minutes 2x30 piriformis stretch Side bilateral Reps/Minutes 2x30 Comments manual HC stretch Side bilateral Reps/Minutes 2x30 Comments manual LTR Supine Exercise Name reviewed self/ previous TA/ QL stretch Side bilateral Equipment Used 65 cm ball Reps/Minutes 5 SH x5 Comments good stretch, L hip flexor spasming to L initially hip flexor stretch Resistance mat table LEs off edge Equipment Used self passive stretch Comments good feedback stretch SKTC Supine Exercise Name SKTC and ER Side bilateral Reps/Minutes 2x30 Comments manual HS stretch Side bilateral Reps/Minutes 2x30 Comments manual Sitting Exercises row, sh ext Sitting Exercise Name rows, ext Resistance L2> , therapist anchor Equipment Used sitting on Dynadisc (yellow) black table/feet on blue disc Reps/Minutes 10x 5 Comments good form, slow pacing resisted trunk rotation Sitting Exercise Name rotation and pull down (rear facing) Resistance orange> #4 blue TB, anchored at wall Equipment Used seated in wc end tx Reps/Minutes 15x each Comments cued sit front wc, slight lean back during pulldown core fac sh ER Side bilateral Resistance Tb #2 Equipment Used seated on black table, blue dynadisc under bottom, yellow under feet Reps/Minutes 8 reps, 5 SH x5 reps Comments cued palm up good slow pacing Gait Training Gait Activity FWW Device Used FWW Level of Assistance CGA w/ wc follow Distance/Duration 75 ft Treatment Focus safety, activity tolerance, posture Comments left knee gave way 1/2 way into gait requiring mod assist to regain. Neuro Re-Education Treatment Balance Activities lean backs Surface yellow Dyadisc on mat sittin bal Details 1. balloon Surface 1:1 Equipment yellow Dynadisc on mat, Reps/Duration 15 min Comments encouraged cross body wt shift . self recovery UE contact table when over shift lateral x4. PT-OP-T Assessment and Plan Start: 09/24/22 09:30 Freq: Status: Active Protocol: Document 12/24/22 12:31 [facility] (Rec: 12/24/22 13:17 [facility] [id number]) Physical Therapy Assessment Goals Three Impairment pain right shoulder and low back Impairment diffiuclty performing ADL's due to pain and pain in right shoulder limits gait due to heavy use of walker Boiler Operators Supervisor Goal (LTG) Patient to report at least 50% decrease in pain with all usual activities and be independent with HEP for purposes of core stab, shoulder strengthening and stab 12/24/22: patient reported decrease in shoulder pain during vacation with not having to wheel herself (used power w/c), but has increased since starting to wheel again. Dec c/o LBP. Goal progress LTG Duration 02/24/23 One Impairment gait dysfunction Impairment 2 min walk test 127 ft, not able to tolerate 6 min walk test due to fatigue UE's from supporting body on walker and LE fatigue requiring 2 brief standing breaks, needing to stop at 2 min Short Term Goal (STG) Improve 2 min walk test to at least 150 ft as measure of improved functional gait 12/24/22: only able to ambulate 75 ft today and experienced giving way of left knee jail through gait requiring mod assist to correct. STG Duration 01/24/23 Boiler Operators Supervisor Goal (LTG) Patient able to tolerate 6 min walk test with gait distance of at least 300 ft as measure of improved functional gait LTG Duration 02/24/23 Four Impairment weakness Impairment 5x sit to stand test 15 sec with moderate use of hands moderate core muscle weakness with less than anti-gravity strength Short Term Goal (STG) Patient to be independent and compliant with updated HEP for purposes of LE and trunk muscle strengthening 12/24/22: patient was on vacation 1 month, not as compliant, noting dec functional strength today. HEP has been updated. Goal progress STG Duration 01/24/23 Boiler Operators Supervisor Goal (LTG) Patient able to perform 5x sit to stand test in 10 sec as measure of improved functional LE strength and demonstrate 1 grade improvement in trunk muscle strength for improved safety with ADL performance LTG Duration 02/24/23 Two Impairment balance dysfunction Impairment Tinetti gait and balance assessment 11/16 indicating patient at high risk for falls static standing 44 sec without holding on Short Term Goal (STG) Patient to be independent and compliant with gait and balance HEP 12/24/22: as above not as compliant to HEP and not ambulating while on vacation STG Duration 01/24/23 Boiler Operators Supervisor Goal (LTG) Improve Tinetti gait and balance assessment score to moderate fall risk range to improve safety in the home and community improve static standing balance to at least 60 sec LTG Duration 02/24/23 Assessment Summary Assessment Left knee gave way during gait requiring mod assist to regain, feels like I tweaked it a little, feel weak today Able to extend knee in sitting with min pain. Possibly due to new shoes that she hasn't worn to PT before? More difficulty with balance exercises sitting on table today and reports feeling more difficult to sit up straight today. Overall decline in functional strength and balance, poss due to dec compliance during vacation vs MS exacerbation. Patient to see neurologist tomorrow. Feel she would benefit from further skilled PT to address the above goals. Physical Therapy Plan Frequency and Duration Frequency of Treatment 1x/Week Duration of treatment (weeks) 12 Plan of Care Start Date 12/24/22 Plan of Care End Date 02/24/23 Therapeutic Interventions Therapeutic Interventions Balance Training,Home Exercise Program,Manual Therapy, Neuromuscular Re-education, Patient/Caregiver Education, Self-Care/Home Management,Soft Tissue Mobilization,Taping, Therapeutic Activities, Therapeutic Exercises Modalities Cold Pack/Ice Massage,Hot Packs Next Visit Focus/Plan Next Note Type Treatment Note Next Visit Plan Continue PT for therapeutic exercises, gait, balance, modalities and manual therapy PRN.
--- NOTE | 2022-12-24 17:14 | PT.OPPOC ---
Physical, Occupational & Speech Therapy At Current Diagnoses Multiple sclerosis (12/24/22) Visit Care Team Role Provider Type Bart Doan MD Primary Care Provider Physician Specialty: Internal Medicine Pediatrics Address: [address] [place] [address], [address] Email: [email or web address] Rehan Zacarias MD Family Provider Physician Specialty: Internal Medicine Address: [address] [place] [address], [address] Email: [email or web address] Rufino Umaña MD Attending Provider Non-Staff Referring Provider Specialty: Psychiatry Address: [address] [place] [address] [address], [place], [address] Email: Plan Of Care PT-OP-T Assessment and Plan Start: 09/24/22 09:30 Freq: Status: Active Protocol: Document 12/24/22 12:31 [facility] (Rec: 12/24/22 13:17 [facility] [id number]) Physical Therapy Assessment Goals Three Impairment pain right shoulder and low back Impairment diffiuclty performing ADL's due to pain and pain in right shoulder limits gait due to heavy use of walker Care Home Goal (LTG) Patient to report at least 50% decrease in pain with all usual activities and be independent with HEP for purposes of core stab, shoulder strengthening and stab 12/24/22: patient reported decrease in shoulder pain during vacation with not having to wheel herself (used power w/c), but has increased since starting to wheel again. Dec c/o LBP. Goal progress LTG Duration 02/24/23 One Impairment gait dysfunction Impairment 2 min walk test 127 ft, not able to tolerate 6 min walk test due to fatigue UE's from supporting body on walker and LE fatigue requiring 2 brief standing breaks, needing to stop at 2 min Short Term Goal (STG) Improve 2 min walk test to at least 150 ft as measure of improved functional gait 12/24/22: only able to ambulate 75 ft today and experienced giving way of left knee group [facility] through gait requiring mod assist to correct. STG Duration 01/24/23 Coverage Specialist Goal (LTG) Patient able to tolerate 6 min walk test with gait distance of at least 300 ft as measure of improved functional gait LTG Duration 02/24/23 Four Impairment weakness Impairment 5x sit to stand test 15 sec with moderate use of hands moderate core muscle weakness with less than anti-gravity strength Short Term Goal (STG) Patient to be independent and compliant with updated HEP for purposes of LE and trunk muscle strengthening 12/24/22: patient was on vacation 1 month, not as compliant, noting dec functional strength today. HEP has been updated. Goal progress STG Duration 01/24/23 Coverage Specialist Goal (LTG) Patient able to perform 5x sit to stand test in 10 sec as measure of improved functional LE strength and demonstrate 1 grade improvement in trunk muscle strength for improved safety with ADL performance LTG Duration 02/24/23 Two Impairment balance dysfunction Impairment Tinetti gait and balance assessment 11/16 indicating patient at high risk for falls static standing 44 sec without holding on Short Term Goal (STG) Patient to be independent and compliant with gait and balance HEP 12/24/22: as above not as compliant to HEP and not ambulating while on vacation STG Duration 01/24/23 Care Home Goal (LTG) Improve Tinetti gait and balance assessment score to moderate fall risk range to improve safety in the home and community improve static standing balance to at least 60 sec LTG Duration 02/24/23 Assessment Summary Assessment Left knee gave way during gait requiring mod assist to regain, feels like I tweaked it a little, feel weak today Able to extend knee in sitting with min pain. Possibly due to new shoes that she hasn't worn to PT before? More difficulty with balance exercises sitting on table today and reports feeling more difficult to sit up straight today. Overall decline in functional strength and balance, poss due to dec compliance during vacation vs MS exacerbation. Patient to see neurologist tomorrow. Feel she would benefit from further skilled PT to address the above goals. Physical Therapy Plan Frequency and Duration Frequency of Treatment 1x/Week Duration of treatment (weeks) 12 Plan of Care Start Date 12/24/22 Plan of Care End Date 02/24/23 Therapeutic Interventions Therapeutic Interventions Balance Training,Home Exercise Program,Manual Therapy, Neuromuscular Re-education, Patient/Caregiver Education, Self-Care/Home Management,Soft Tissue Mobilization,Taping, Therapeutic Activities, Therapeutic Exercises Modalities Cold Pack/Ice Massage,Hot Packs Next Visit Focus/Plan Next Note Type Treatment Note Next Visit Plan Continue PT for therapeutic exercises, gait, balance, modalities and manual therapy PRN. Plan of Care Dates Plan of Care Start Date 12/24/22 Plan of Care End Date 02/24/23 Electronically Signed by: Bertha Redding, PT 12/24/22 [id number] If you are in agreement with this Plan of Care, please return a signed and dated copy. I have reviewed this Plan of Care and certify that the skilled therapy services above are required to meet the patient?s needs. Physician Signature Date Printed Name and Credentials Clinical Instructor Signature Printed Name and Credentials
--- NOTE | 2022-12-31 13:28 | PT.OTN ---
Current Diagnoses Multiple sclerosis (12/31/22) Physical Therapy Treatment Note PT-OP-A Visit Information Start: 09/24/22 09:30 Freq: Status: Active Protocol: Document 12/31/22 12:49 SP (Rec: 12/31/22 13:45 SP [id number]) Out-Patient Physical Therapy Visit Information Visit Information Visit Type Treatment Note Visit Start Time 12:49 Visit Stop Time 13:28 Total Visit Minutes 39 Visit Number 11 Number of DIRECTOR OF OPERATIONS FOR THERAPY Visits 1 Evaluation Information Evaluation Date 09/24/22 Precautions Precautions MS, don't overfatigue, esophageal stenosis PT-OP-B Current Condition Start: 09/24/22 09:30 Freq: Status: Active Protocol: Document 10/05/22 12:33 SAK (Rec: 10/05/22 13:19 SAK [id number]) Current Condition History of Current Condition Onset Date March 2019 Current Complaints weakness due to MS, right shoulder pain, LBP History of Current Condition history MS with worsening weakness, as well as right shoulder pain (patient right handed). Patient has caregiver who assists her primarily with household tasks, HEP, walking. She uses a 4WW to walk short diestances (approx 30 feet) in the home, manual w /c for community mobility. No recent falls, but has history of falls. Reports was evaluated for power wheelchair recently but was denied. C/o right shoulder pain and tightness especially with reaching and propelling manual w/c. Well known to this PT for both land and aquatic- based PT. Prior Treatments and Tests prior PT; land and aquatic Future Testing and Treatments Planned nothing planned yet Treatment Goals Patient/Caregiver Goals improve core strength, decrease right shoulder pain, improve gait and balance PT-OP-C Subjective Start: 09/24/22 09:30 Freq: Status: Active Protocol: Document 12/31/22 12:49 SP (Rec: 12/31/22 13:45 SP [id number]) OP-PT Subjective Patient Comments Patient Comments Pt reports felt better with stretching last tx and want to continue today assist back tension. PT-OP-D Balance Start: 09/24/22 09:30 Freq: Status: Active Protocol: Document 09/24/22 09:06 SAK (Rec: 09/28/22 11:39 SAK [id number]) Tinetti Balance Assessment Sitting Balance Sitting Balance Steady, safe Standing Balance Immediate Standing Balance Steady with support Turning Step Pattern Turning 360 Degrees Discontinuous steps Sitting Down Sitting Down Uses arms or unsteady Gait and Step Initiation of Gait Hesitancy, mult. attempts Right Foot Step Length Does not pass stance ft. Right Foot Step Height Does not clear floor Left Foot Step Length Does not pass stance foot Left Foot Step Height Does not clear floor Step Description Step Symmetry Step length appears equal Step Continuity Stopping or discontinuity Gait Description Path Description Mild/moderate deviation Trunk Description Marked sway or uses aide Walking Stance Heels apart Scoring and Interpretation Tinetti Composite Score (points) 5 PT-OP-E Functional Tests Start: 09/24/22 09:30 Freq: Status: Active Protocol: Document 09/24/22 09:06 [facility] (Rec: 09/28/22 11:39 [facility] [id number]) Functional Tests 2 Minute Walk Test Distance 127 Device Used 4WW PT-OP-G Mobility & Gait Start: 09/24/22 09:30 Freq: Status: Active Protocol: Document 09/24/22 09:06 [facility] (Rec: 09/28/22 11:39 [facility] [id number]) OP Mobility Evaluation Bed Mobility Supine to and from Sit indep Transfers Bed to Chair Transfers indep Car Transfers assisted Floor Transfers not performed OP Gait Assessment Gait Gait Assistance Required: Minimum Assistance Distance (Feet) 127 Assistive Devices Assistive Device Gait Belt,Front Wheeled Walker Orthotic/Prosthetic Devices or Brace: No Gait Deviations General Gait Pattern Decreased Stride Length, Decreased Feet Clearance, Flexed Trunk Factors Limiting Gait Function Factors Limiting Gait Function Abnormal Tonal Influences, Decreased Activity Tolerance, Decreased Strength,Pain Stair Climbing Evaluation Comments Stair Climbing Comments unable PT-OP-H Neuro Start: 09/24/22 09:30 Freq: Status: Active Protocol: Document 09/24/22 09:06 [facility] (Rec: 09/28/22 11:39 [facility] [id number]) Sensation Evaluation Gross Sensation Gross Sensation Left LE Impaired,Right LE Impaired,Trunk Impaired PT-OP-J Posture/Palpation/Skin Start: 09/24/22 09:30 Freq: Status: Active Protocol: Document 09/24/22 09:06 [facility] (Rec: 09/28/22 11:39 [facility] [id number]) Posture Evaluation Position Sitting Head/C-Spine Posture Forward Head Shoulder Posture (L) Rounded,(R) Rounded Shoulder Subluxation Position (L) Anterior,(R) Anterior Scapula Posture (L) Protracted,(R) Protracted Arm Posture (L) Internally Rotated,(R) Internally Rotated PT-OP-K Range of Motion Start: 09/24/22 09:30 Freq: Status: Active Protocol: Document 09/24/22 09:06 [facility] (Rec: 09/28/22 11:39 [facility] [id number]) Hip Goniometric Range of Motion Hip chelle Straight Leg Raise 145 Hip ROM Limitations Hip ROM Limitations Soft Tissue Tightness Ankle and Foot Goniometric Range of Motion Ankle and Foot chelle Dorsiflexion with Knee Flexed 0 Ankle and Foot ROM Limitations ROM Limitations Soft Tissue Tightness PT-OP-M Strength Start: 09/24/22 09:30 Freq: Status: Active Protocol: Document 09/24/22 09:31 [facility] (Rec: 09/24/22 10:22 [facility] [id number]) Trunk Strength Trunk Manual Muscle Testing Flexion 3- Fair- Extension 2+ Poor+ Rotation Left 3- Fair- Rotation Right 3- Fair- Lateral Flexion Left 3- Fair- Lateral Flexion Right 3- Fair- Scapula Strength Scapula Manual Muscle Testing chelle Elevation (C4) 4+ Good+ Adduction 3+ Fair+ Abduction 3 Fair Depression 3+ Fair+ Shoulder Strength Shoulder Manual Muscle Testing Left Flexion 4 Good Extension 4 Good Abduction (C5) 4 Good Adduction 4 Good External Rotation 4 Good Internal Rotation 4 Good Horizontal Abduction 4 Good Horizontal Adduction 4 Good Right Flexion 4 Good Extension 4 Good Abduction (C5) 4 Good Adduction 4 Good External Rotation 4 Good Internal Rotation 4 Good Horizontal Abduction 4 Good Horizontal Adduction 4 Good Elbow/Forearm Strength Elbow and Forearm Manual Muscle Testing Left Flexion (C6) 4 Good Extension (C7) 4 Good Right Comments pain with resisted flex,ab,ER Hip Strength Hip Manual Muscle Testing Left Flexion (L2) 4- Good- Abduction 3- Fair- Adduction 3+ Fair+ Right Flexion (L2) 4- Good- Abduction 2+ Poor+ Adduction 3+ Fair+ Knee Strength Knee Manual Muscle Testing Left Flexion (S2) 4 Good Extension (L3) 4 Good Right Flexion (S2) 4- Good- Extension (L3) 4- Good- Ankle/Foot Strength Ankle and Foot Manual Muscle Testing Left Dorsiflexion (L4) 3+ Fair+ Plantarflexion (S1) 3+ Fair+ Right Dorsiflexion (L4) 3+ Fair+ Plantarflexion (S1) 3+ Fair+ PT-OP-Q Treatments Start: 09/24/22 09:30 Freq: Status: Active Protocol: Document 12/31/22 12:49 SP (Rec: 12/31/22 13:45 SP [id number]) Therapeutic Exercises Supine Exercises IT band stretch Reps/Minutes 2x30 Comments manual figure 4 Reps/Minutes 2x30 piriformis stretch Side bilateral Reps/Minutes 2x30 Comments manual HC stretch Side bilateral Reps/Minutes 2x30 Comments manual LTR Supine Exercise Name reviewed self/ previous TA/ QL stretch Side bilateral Equipment Used feet on table (Tball next tx) Reps/Minutes 15 SH Comments good stretch LB & Lateral hip stretch SKTC Supine Exercise Name SKTC and ER Side bilateral Reps/Minutes 2x30 Comments manual HS stretch Side bilateral Reps/Minutes 2x30 Comments manual Sitting Exercises LAQ Side bilateral Resistance 4# leg wt Equipment Used therapist target kick to- seated in w/c Reps/Minutes 2x8 reps Comments R weaker than L sit<> stands Equipment Used facing and use bar needed, post gait from w/c Reps/Minutes x5 reps Comments need sit at 5 reps due to R>L LE tiring decreased TKE into standing. row, sh ext Sitting Exercise Name rows & ext Side bilateral Resistance L2, therapist anchor Equipment Used sitting on Dynadisc (yellow)/ feel floor- 19.5 elevated table Reps/Minutes 10x 5 Comments good form, slow pacing, u resisted trunk rotation Sitting Exercise Name rotation and pull down (rear facing) Side bilateral Resistance orange, therapist anchored Equipment Used 19 elevated table seated on Yellow dynadisc Reps/Minutes 20x each Comments good stability Gait Training Gait Activity FWW Device Used FWW Level of Assistance CGA-5%A end distance tolerated (PT aide support follow w/ wc ) Distance/Duration 38f, 29 ft Treatment Focus safety, activity tolerance, posture Comments Cued TKE into WB/mid stance, left knee feels weaker, sat before risk of buckling CG- 5% A. PT-OP-T Assessment and Plan Start: 09/24/22 09:30 Freq: Status: Active Protocol: Document 12/31/22 12:49 SP (Rec: 12/31/22 13:45 SP [id number]) Physical Therapy Assessment Goals Three Impairment pain right shoulder and low back Impairment diffiuclty performing ADL's due to pain and pain in right shoulder limits gait due to heavy use of walker [facility] Goal (LTG) Patient to report at least 50% decrease in pain with all usual activities and be independent with HEP for purposes of core stab, shoulder strengthening and stab 12/24/22: patient reported decrease in shoulder pain during vacation with not having to wheel herself (used power w/c), but has increased since starting to wheel again. Dec c/o LBP. Goal progress LTG Duration 02/24/23 One Impairment gait dysfunction Impairment 2 min walk test 127 ft, not able to tolerate 6 min walk test due to fatigue UE's from supporting body on walker and LE fatigue requiring 2 brief standing breaks, needing to stop at 2 min Short Term Goal (STG) Improve 2 min walk test to at least 150 ft as measure of improved functional gait 12/24/22: only able to ambulate 75 ft today and experienced giving way of left knee longterm through gait requiring mod assist to correct. STG Duration 01/24/23 [facility] Goal (LTG) Patient able to tolerate 6 min walk test with gait distance of at least 300 ft as measure of improved functional gait LTG Duration 02/24/23 Four Impairment weakness Impairment 5x sit to stand test 15 sec with moderate use of hands moderate core muscle weakness with less than anti-gravity strength Short Term Goal (STG) Patient to be independent and compliant with updated HEP for purposes of LE and trunk muscle strengthening 12/24/22: patient was on vacation 1 month, not as compliant, noting dec functional strength today. HEP has been updated. Goal progress STG Duration 01/24/23 [employer] Goal (LTG) Patient able to perform 5x sit to stand test in 10 sec as measure of improved functional LE strength and demonstrate 1 grade improvement in trunk muscle strength for improved safety with ADL performance LTG Duration 02/24/23 Two Impairment balance dysfunction Impairment Tinetti gait and balance assessment 11/16 indicating patient at high risk for falls static standing 44 sec without holding on Short Term Goal (STG) Patient to be independent and compliant with gait and balance HEP 12/24/22: as above not as compliant to HEP and not ambulating while on vacation STG Duration 01/24/23 [employer] Goal (LTG) Improve Tinetti gait and balance assessment score to moderate fall risk range to improve safety in the home and community improve static standing balance to at least 60 sec LTG Duration 02/24/23 Assessment Summary Assessment Pt challenged with stabililty seated during UE PREs, required removal disc under BLEs, improved muscular engagement seated stability on disc w/ core/ UE strengthening today. Pt decreased distance gait w/ FWW due to LE tiring and decreased maintaining TKE. Physical Therapy Plan Frequency and Duration Frequency of Treatment 1x/Week Duration of treatment (weeks) 12 Plan of Care Start Date 12/24/22 Plan of Care End Date 02/24/23 Therapeutic Interventions Therapeutic Interventions Balance Training,Home Exercise Program,Manual Therapy, Neuromuscular Re-education, Patient/Caregiver Education, Self-Care/Home Management,Soft Tissue Mobilization,Taping, Therapeutic Activities, Therapeutic Exercises Modalities Cold Pack/Ice Massage,Hot Packs Next Visit Focus/Plan Next Note Type Treatment Note Next Visit Plan Continue PT for therapeutic exercises, gait, balance, modalities and manual therapy PRN.
--- NOTE | 2023-01-07 14:15 | PT.OTN ---
Current Diagnoses Multiple sclerosis (01/07/23) Physical Therapy Treatment Note PT-OP-A Visit Information Start: 09/24/22 09:30 Freq: Status: Active Protocol: Document 01/07/23 13:34 SP (Rec: 01/07/23 14:21 SP [id number]) Out-Patient Physical Therapy Visit Information Visit Information Visit Type Treatment Note Visit Start Time 13:34 Visit Stop Time 14:15 Total Visit Minutes 41 Visit Number 12 Number of STRATEGIC SOURCING SPECIALIST Visits 2 Evaluation Information Evaluation Date 09/24/22 Precautions Precautions MS, don't overfatigue, esophageal stenosis PT-OP-B Current Condition Start: 09/24/22 09:30 Freq: Status: Active Protocol: Document 10/05/22 12:33 SAK (Rec: 10/05/22 13:19 SAK [id number]) Current Condition History of Current Condition Onset Date March 2019 Current Complaints weakness due to MS, right shoulder pain, LBP History of Current Condition history MS with worsening weakness, as well as right shoulder pain (patient right handed). Patient has caregiver who assists her primarily with household tasks, HEP, walking. She uses a 4WW to walk short diestances (approx 30 feet) in the home, manual w /c for community mobility. No recent falls, but has history of falls. Reports was evaluated for power wheelchair recently but was denied. C/o right shoulder pain and tightness especially with reaching and propelling manual w/c. Well known to this PT for both land and aquatic- based PT. Prior Treatments and Tests prior PT; land and aquatic Future Testing and Treatments Planned nothing planned yet Treatment Goals Patient/Caregiver Goals improve core strength, decrease right shoulder pain, improve gait and balance PT-OP-C Subjective Start: 09/24/22 09:30 Freq: Status: Active Protocol: Document 01/07/23 13:34 SP (Rec: 01/07/23 14:21 SP [id number]) OP-PT Subjective Patient Comments Patient Comments Pt reports sat in chair BLEs elevated lately so not alot standing over weekend, feeling stiff, need help stretch PT-OP-D Balance Start: 09/24/22 09:30 Freq: Status: Active Protocol: Document 09/24/22 09:06 SAK (Rec: 09/28/22 11:39 SAK [id number]) Tinetti Balance Assessment Sitting Balance Sitting Balance Steady, safe Standing Balance Immediate Standing Balance Steady with support Turning Step Pattern Turning 360 Degrees Discontinuous steps Sitting Down Sitting Down Uses arms or unsteady Gait and Step Initiation of Gait Hesitancy, mult. attempts Right Foot Step Length Does not pass stance ft. Right Foot Step Height Does not clear floor Left Foot Step Length Does not pass stance foot Left Foot Step Height Does not clear floor Step Description Step Symmetry Step length appears equal Step Continuity Stopping or discontinuity Gait Description Path Description Mild/moderate deviation Trunk Description Marked sway or uses aide Walking Stance Heels apart Scoring and Interpretation Tinetti Composite Score (points) 5 PT-OP-E Functional Tests Start: 09/24/22 09:30 Freq: Status: Active Protocol: Document 09/24/22 09:06 [facility] (Rec: 09/28/22 11:39 [facility] [id number]) Functional Tests 2 Minute Walk Test Distance 127 Device Used 4WW PT-OP-G Mobility & Gait Start: 09/24/22 09:30 Freq: Status: Active Protocol: Document 09/24/22 09:06 [facility] (Rec: 09/28/22 11:39 [facility] [id number]) OP Mobility Evaluation Bed Mobility Supine to and from Sit indep Transfers Bed to Chair Transfers indep Car Transfers assisted Floor Transfers not performed OP Gait Assessment Gait Gait Assistance Required: Minimum Assistance Distance (Feet) 127 Assistive Devices Assistive Device Gait Belt,Front Wheeled Walker Orthotic/Prosthetic Devices or Brace: No Gait Deviations General Gait Pattern Decreased Stride Length, Decreased Feet Clearance, Flexed Trunk Factors Limiting Gait Function Factors Limiting Gait Function Abnormal Tonal Influences, Decreased Activity Tolerance, Decreased Strength,Pain Stair Climbing Evaluation Comments Stair Climbing Comments unable PT-OP-H Neuro Start: 09/24/22 09:30 Freq: Status: Active Protocol: Document 09/24/22 09:06 [facility] (Rec: 09/28/22 11:39 [facility] [id number]) Sensation Evaluation Gross Sensation Gross Sensation Left LE Impaired,Right LE Impaired,Trunk Impaired PT-OP-J Posture/Palpation/Skin Start: 09/24/22 09:30 Freq: Status: Active Protocol: Document 09/24/22 09:06 [facility] (Rec: 09/28/22 11:39 [facility] [id number]) Posture Evaluation Position Sitting Head/C-Spine Posture Forward Head Shoulder Posture (L) Rounded,(R) Rounded Shoulder Subluxation Position (L) Anterior,(R) Anterior Scapula Posture (L) Protracted,(R) Protracted Arm Posture (L) Internally Rotated,(R) Internally Rotated PT-OP-K Range of Motion Start: 09/24/22 09:30 Freq: Status: Active Protocol: Document 09/24/22 09:06 [facility] (Rec: 09/28/22 11:39 [facility] [id number]) Hip Goniometric Range of Motion Hip chelle Straight Leg Raise 145 Hip ROM Limitations Hip ROM Limitations Soft Tissue Tightness Ankle and Foot Goniometric Range of Motion Ankle and Foot chelle Dorsiflexion with Knee Flexed 0 Ankle and Foot ROM Limitations ROM Limitations Soft Tissue Tightness PT-OP-M Strength Start: 09/24/22 09:30 Freq: Status: Active Protocol: Document 09/24/22 09:31 [facility] (Rec: 09/24/22 10:22 [facility] [id number]) Trunk Strength Trunk Manual Muscle Testing Flexion 3- Fair- Extension 2+ Poor+ Rotation Left 3- Fair- Rotation Right 3- Fair- Lateral Flexion Left 3- Fair- Lateral Flexion Right 3- Fair- Scapula Strength Scapula Manual Muscle Testing chelle Elevation (C4) 4+ Good+ Adduction 3+ Fair+ Abduction 3 Fair Depression 3+ Fair+ Shoulder Strength Shoulder Manual Muscle Testing Left Flexion 4 Good Extension 4 Good Abduction (C5) 4 Good Adduction 4 Good External Rotation 4 Good Internal Rotation 4 Good Horizontal Abduction 4 Good Horizontal Adduction 4 Good Right Flexion 4 Good Extension 4 Good Abduction (C5) 4 Good Adduction 4 Good External Rotation 4 Good Internal Rotation 4 Good Horizontal Abduction 4 Good Horizontal Adduction 4 Good Elbow/Forearm Strength Elbow and Forearm Manual Muscle Testing Left Flexion (C6) 4 Good Extension (C7) 4 Good Right Comments pain with resisted flex,ab,ER Hip Strength Hip Manual Muscle Testing Left Flexion (L2) 4- Good- Abduction 3- Fair- Adduction 3+ Fair+ Right Flexion (L2) 4- Good- Abduction 2+ Poor+ Adduction 3+ Fair+ Knee Strength Knee Manual Muscle Testing Left Flexion (S2) 4 Good Extension (L3) 4 Good Right Flexion (S2) 4- Good- Extension (L3) 4- Good- Ankle/Foot Strength Ankle and Foot Manual Muscle Testing Left Dorsiflexion (L4) 3+ Fair+ Plantarflexion (S1) 3+ Fair+ Right Dorsiflexion (L4) 3+ Fair+ Plantarflexion (S1) 3+ Fair+ PT-OP-Q Treatments Start: 09/24/22 09:30 Freq: Status: Active Protocol: Document 01/07/23 13:34 SP (Rec: 01/07/23 14:21 SP [id number]) Therapeutic Exercises Supine Exercises figure 4 Reps/Minutes 2x30 piriformis stretch Side bilateral Reps/Minutes 2x30 Comments manual HC stretch Side bilateral Reps/Minutes 2x30 Comments manual HS stretch Side bilateral Reps/Minutes 2x30 Comments manual Prone Exercises hip ext Side bilateral Equipment Used pillows under anterior shlds Reps/Minutes 3x5 reps Comments AROM quad/hip flexor stretch Prone Exercise Name quad, then hip flexor Equipment Used 2x20 Sitting Exercises LAQ Side bilateral Resistance 4# leg wt Reps/Minutes 10 reps, 3 SH Comments cued slower pacing eccentric return, R slight weaker than L row, sh ext Sitting Exercise Name ext Side bilateral Resistance L3, therapist anchor Equipment Used sitting on Dynadisc (yellow)/ feel floor- 19.5 elevated table Reps/Minutes 10x 5 Comments good form, slow pacing, u resisted trunk rotation Sitting Exercise Name rotation and pull down (rear facing) Side bilateral Resistance green, therapist anchored Equipment Used 19 elevated table seated on Yellow dynadisc Reps/Minutes 20x each Comments good stability Standing Exercises march Equipment Used heavy BUEs on FWW Reps/Minutes x5 reps before R knee TKE weakness Comments Cued TKE Gait Training Gait Activity FWW Device Used FWW, w/c trailing by PT AIde Level of Assistance CGA-5%A end distance tolerated (PT aide support follow w/ wc ) Distance/Duration 10 ft Treatment Focus safety, activity tolerance, posture Comments challenge distance today due to post seated ther ex. * mindful beginning of tx. Neuro Re-Education Treatment Balance Activities standing balance bars Details stationary, wt shift (end tx 01/07) Equipment //bars, GB Comments -challenge wt shift without UE support -[id number] RLE fwd, 10 SH LLE fwd- no UE R>L weakness TKE _CG- 10%A) lean backs Surface yellow Dyadisc on mat Equipment anchored ankles, 4# leg wt + PT aide Reps/Duration x10 Comments STRATEGIC SOURCING SPECIALIST posterior support needed. Challenge keeping BLEs on floor, core/ hip flexor effort PT-OP-T Assessment and Plan Start: 09/24/22 09:30 Freq: Status: Active Protocol: Document 01/07/23 13:34 SP (Rec: 01/07/23 14:21 SP [id number]) Physical Therapy Assessment Goals Three Impairment pain right shoulder and low back Impairment diffiuclty performing ADL's due to pain and pain in right shoulder limits gait due to heavy use of walker Fpc Goal (LTG) Patient to report at least 50% decrease in pain with all usual activities and be independent with HEP for purposes of core stab, shoulder strengthening and stab 12/24/22: patient reported decrease in shoulder pain during vacation with not having to wheel herself (used power w/c), but has increased since starting to wheel again. Dec c/o LBP. Goal progress LTG Duration 02/24/23 One Impairment gait dysfunction Impairment 2 min walk test 127 ft, not able to tolerate 6 min walk test due to fatigue UE's from supporting body on walker and LE fatigue requiring 2 brief standing breaks, needing to stop at 2 min Short Term Goal (STG) Improve 2 min walk test to at least 150 ft as measure of improved functional gait 12/24/22: only able to ambulate 75 ft today and experienced giving way of left knee longterm through gait requiring mod assist to correct. STG Duration 01/24/23 Clinical Genetics Laboratory Chief Goal (LTG) Patient able to tolerate 6 min walk test with gait distance of at least 300 ft as measure of improved functional gait LTG Duration 02/24/23 Four Impairment weakness Impairment 5x sit to stand test 15 sec with moderate use of hands moderate core muscle weakness with less than anti-gravity strength Short Term Goal (STG) Patient to be independent and compliant with updated HEP for purposes of LE and trunk muscle strengthening 12/24/22: patient was on vacation 1 month, not as compliant, noting dec functional strength today. HEP has been updated. Goal progress STG Duration 01/24/23 Fpc Goal (LTG) Patient able to perform 5x sit to stand test in 10 sec as measure of improved functional LE strength and demonstrate 1 grade improvement in trunk muscle strength for improved safety with ADL performance LTG Duration 02/24/23 Two Impairment balance dysfunction Impairment Tinetti gait and balance assessment 11/16 indicating patient at high risk for falls static standing 44 sec without holding on Short Term Goal (STG) Patient to be independent and compliant with gait and balance HEP 12/24/22: as above not as compliant to HEP and not ambulating while on vacation STG Duration 01/24/23 Clinical Genetics Laboratory Chief Goal (LTG) Improve Tinetti gait and balance assessment score to moderate fall risk range to improve safety in the home and community improve static standing balance to at least 60 sec LTG Duration 02/24/23 Assessment Summary Assessment Pt was able to increase resistance UE ther ex while sittng uneven disc. Able to perform standing marching limited reps due to tiring BLEs, TKE and noted shortened distance gait performed end tx . Physical Therapy Plan Frequency and Duration Frequency of Treatment 1x/Week Duration of treatment (weeks) 12 Plan of Care Start Date 12/24/22 Plan of Care End Date 02/24/23 Therapeutic Interventions Therapeutic Interventions Balance Training,Home Exercise Program,Manual Therapy, Neuromuscular Re-education, Patient/Caregiver Education, Self-Care/Home Management,Soft Tissue Mobilization,Taping, Therapeutic Activities, Therapeutic Exercises Modalities Cold Pack/Ice Massage,Hot Packs Next Visit Focus/Plan Next Note Type Treatment Note Next Visit Plan Continue PT for therapeutic exercises, gait, balance, modalities and manual therapy PRN.
--- NOTE | 2023-01-14 14:22 | PT.OTN ---
Current Diagnoses Multiple sclerosis (01/14/23) Physical Therapy Treatment Note PT-OP-A Visit Information Start: 09/24/22 09:30 Freq: Status: Active Protocol: Document 01/14/23 12:30 [facility] (Rec: 01/14/23 13:23 [facility] [id number]) Out-Patient Physical Therapy Visit Information Visit Information Visit Type Treatment Note Visit Start Time 12:32 Visit Stop Time 13:15 Total Visit Minutes 43 Visit Number 13 Number of FINANCE PROFESSOR Visits 0 Precautions Precautions MS, don't overfatigue, esophageal stenosis PT-OP-B Current Condition Start: 09/24/22 09:30 Freq: Status: Active Protocol: Document 10/05/22 12:33 [facility] (Rec: 10/05/22 13:19 [facility] [id number]) Current Condition History of Current Condition Onset Date March 2019 Current Complaints weakness due to MS, right shoulder pain, LBP History of Current Condition history MS with worsening weakness, as well as right shoulder pain (patient right handed). Patient has caregiver who assists her primarily with household tasks, HEP, walking. She uses a 4WW to walk short diestances (approx 30 feet) in the home, manual w /c for community mobility. No recent falls, but has history of falls. Reports was evaluated for power wheelchair recently but was denied. C/o right shoulder pain and tightness especially with reaching and propelling manual w/c. Well known to this PT for both land and aquatic- based PT. Prior Treatments and Tests prior PT; land and aquatic Future Testing and Treatments Planned nothing planned yet Treatment Goals Patient/Caregiver Goals improve core strength, decrease right shoulder pain, improve gait and balance PT-OP-C Subjective Start: 09/24/22 09:30 Freq: Status: Active Protocol: Document 01/14/23 12:30 [facility] (Rec: 01/14/23 13:23 [facility] [id number]) OP-PT Subjective Patient Comments Patient Comments Back and shoulder pain variable. Has walked 2x since last seen in PT PT-OP-D Balance Start: 09/24/22 09:30 Freq: Status: Active Protocol: Document 09/24/22 09:06 [facility] (Rec: 09/28/22 11:39 [facility] [id number]) Tinetti Balance Assessment Sitting Balance Sitting Balance Steady, safe Standing Balance Immediate Standing Balance Steady with support Turning Step Pattern Turning 360 Degrees Discontinuous steps Sitting Down Sitting Down Uses arms or unsteady Gait and Step Initiation of Gait Hesitancy, mult. attempts Right Foot Step Length Does not pass stance ft. Right Foot Step Height Does not clear floor Left Foot Step Length Does not pass stance foot Left Foot Step Height Does not clear floor Step Description Step Symmetry Step length appears equal Step Continuity Stopping or discontinuity Gait Description Path Description Mild/moderate deviation Trunk Description Marked sway or uses aide Walking Stance Heels apart Scoring and Interpretation Tinetti Composite Score (points) 5 PT-OP-E Functional Tests Start: 09/24/22 09:30 Freq: Status: Active Protocol: Document 09/24/22 09:06 [facility] (Rec: 09/28/22 11:39 [facility] [id number]) Functional Tests 2 Minute Walk Test Distance 127 Device Used 4WW PT-OP-G Mobility & Gait Start: 09/24/22 09:30 Freq: Status: Active Protocol: Document 09/24/22 09:06 [facility] (Rec: 09/28/22 11:39 [facility] [id number]) OP Mobility Evaluation Bed Mobility Supine to and from Sit indep Transfers Bed to Chair Transfers indep Car Transfers assisted Floor Transfers not performed OP Gait Assessment Gait Gait Assistance Required: Minimum Assistance Distance (Feet) 127 Assistive Devices Assistive Device Gait Belt,Front Wheeled Walker Orthotic/Prosthetic Devices or Brace: No Gait Deviations General Gait Pattern Decreased Stride Length, Decreased Feet Clearance, Flexed Trunk Factors Limiting Gait Function Factors Limiting Gait Function Abnormal Tonal Influences, Decreased Activity Tolerance, Decreased Strength,Pain Stair Climbing Evaluation Comments Stair Climbing Comments unable PT-OP-H Neuro Start: 09/24/22 09:30 Freq: Status: Active Protocol: Document 09/24/22 09:06 [facility] (Rec: 09/28/22 11:39 [facility] [id number]) Sensation Evaluation Gross Sensation Gross Sensation Left LE Impaired,Right LE Impaired,Trunk Impaired PT-OP-J Posture/Palpation/Skin Start: 09/24/22 09:30 Freq: Status: Active Protocol: Document 09/24/22 09:06 [facility] (Rec: 09/28/22 11:39 [facility] [id number]) Posture Evaluation Position Sitting Head/C-Spine Posture Forward Head Shoulder Posture (L) Rounded,(R) Rounded Shoulder Subluxation Position (L) Anterior,(R) Anterior Scapula Posture (L) Protracted,(R) Protracted Arm Posture (L) Internally Rotated,(R) Internally Rotated PT-OP-K Range of Motion Start: 09/24/22 09:30 Freq: Status: Active Protocol: Document 09/24/22 09:06 [facility] (Rec: 09/28/22 11:39 [facility] [id number]) Hip Goniometric Range of Motion Hip chelle Straight Leg Raise 145 Hip ROM Limitations Hip ROM Limitations Soft Tissue Tightness Ankle and Foot Goniometric Range of Motion Ankle and Foot chelle Dorsiflexion with Knee Flexed 0 Ankle and Foot ROM Limitations ROM Limitations Soft Tissue Tightness PT-OP-M Strength Start: 09/24/22 09:30 Freq: Status: Active Protocol: Document 09/24/22 09:31 [facility] (Rec: 09/24/22 10:22 [facility] [id number]) Trunk Strength Trunk Manual Muscle Testing Flexion 3- Fair- Extension 2+ Poor+ Rotation Left 3- Fair- Rotation Right 3- Fair- Lateral Flexion Left 3- Fair- Lateral Flexion Right 3- Fair- Scapula Strength Scapula Manual Muscle Testing chelle Elevation (C4) 4+ Good+ Adduction 3+ Fair+ Abduction 3 Fair Depression 3+ Fair+ Shoulder Strength Shoulder Manual Muscle Testing Left Flexion 4 Good Extension 4 Good Abduction (C5) 4 Good Adduction 4 Good External Rotation 4 Good Internal Rotation 4 Good Horizontal Abduction 4 Good Horizontal Adduction 4 Good Right Flexion 4 Good Extension 4 Good Abduction (C5) 4 Good Adduction 4 Good External Rotation 4 Good Internal Rotation 4 Good Horizontal Abduction 4 Good Horizontal Adduction 4 Good Elbow/Forearm Strength Elbow and Forearm Manual Muscle Testing Left Flexion (C6) 4 Good Extension (C7) 4 Good Right Comments pain with resisted flex,ab,ER Hip Strength Hip Manual Muscle Testing Left Flexion (L2) 4- Good- Abduction 3- Fair- Adduction 3+ Fair+ Right Flexion (L2) 4- Good- Abduction 2+ Poor+ Adduction 3+ Fair+ Knee Strength Knee Manual Muscle Testing Left Flexion (S2) 4 Good Extension (L3) 4 Good Right Flexion (S2) 4- Good- Extension (L3) 4- Good- Ankle/Foot Strength Ankle and Foot Manual Muscle Testing Left Dorsiflexion (L4) 3+ Fair+ Plantarflexion (S1) 3+ Fair+ Right Dorsiflexion (L4) 3+ Fair+ Plantarflexion (S1) 3+ Fair+ PT-OP-Q Treatments Start: 09/24/22 09:30 Freq: Status: Active Protocol: Document 01/14/23 12:30 [facility] (Rec: 01/14/23 13:23 [facility] [id number]) Therapeutic Exercises Supine Exercises IT band stretch Reps/Minutes 2x30 Comments manual figure 4 Reps/Minutes 2x30 piriformis stretch Side bilateral Reps/Minutes 2x30 Comments manual HC stretch Side bilateral Reps/Minutes 2x30 Comments manual LTR Comments good stretch LB & Lateral hip stretch HS stretch Side bilateral Reps/Minutes 2x30 Comments manual Sitting Exercises trunk sidebend stretch Reps/Minutes 2x10 Comments cues for deep breathing lean backs Equipment Used yellow dynadisc under bottom, blue under feet Reps/Minutes 10x Comments CG to min assist for balance seated trunk rotation stretch Reps/Minutes 2x10 Comments cues for deep breathing into tight areas. LAQ Side bilateral Reps/Minutes 10 reps, 3 SH Comments cued slower pacing eccentric return, R slight weaker than L row, sh ext Sitting Exercise Name ext Side bilateral Resistance L3, therapist anchor Equipment Used sitting on Dynadisc (yellow)/ feel floor- 19.5 elevated table Reps/Minutes 10x 5 Comments good form, slow pacing, u cat/cow Reps/Minutes 5x5 Gait Training Gait Activity FWW Description beginning of treatment Device Used FWW, w/c trailing by PT AIde Level of Assistance CGA-5%A end distance tolerated (PT aide support follow w/ wc ) Distance/Duration 75 ft Treatment Focus safety, activity tolerance, posture PT-OP-T Assessment and Plan Start: 09/24/22 09:30 Freq: Status: Active Protocol: Document 01/14/23 12:30 [facility] (Rec: 01/14/23 13:23 [facility] [id number]) Physical Therapy Assessment Goals Three Impairment pain right shoulder and low back Impairment diffiuclty performing ADL's due to pain and pain in right shoulder limits gait due to heavy use of walker Asset Management Coordinator Goal (LTG) Patient to report at least 50% decrease in pain with all usual activities and be independent with HEP for purposes of core stab, shoulder strengthening and stab 12/24/22: patient reported decrease in shoulder pain during vacation with not having to wheel herself (used power w/c), but has increased since starting to wheel again. Dec c/o LBP. Goal progress LTG Duration 02/24/23 One Impairment gait dysfunction Impairment 2 min walk test 127 ft, not able to tolerate 6 min walk test due to fatigue UE's from supporting body on walker and LE fatigue requiring 2 brief standing breaks, needing to stop at 2 min Short Term Goal (STG) Improve 2 min walk test to at least 150 ft as measure of improved functional gait 12/24/22: only able to ambulate 75 ft today and experienced giving way of left knee longterm through gait requiring mod assist to correct. STG Duration 01/24/23 Asset Management Coordinator Goal (LTG) Patient able to tolerate 6 min walk test with gait distance of at least 300 ft as measure of improved functional gait LTG Duration 02/24/23 Four Impairment weakness Impairment 5x sit to stand test 15 sec with moderate use of hands moderate core muscle weakness with less than anti-gravity strength Short Term Goal (STG) Patient to be independent and compliant with updated HEP for purposes of LE and trunk muscle strengthening 12/24/22: patient was on vacation 1 month, not as compliant, noting dec functional strength today. HEP has been updated. Goal progress STG Duration 01/24/23 Asset Management Coordinator Goal (LTG) Patient able to perform 5x sit to stand test in 10 sec as measure of improved functional LE strength and demonstrate 1 grade improvement in trunk muscle strength for improved safety with ADL performance LTG Duration 02/24/23 Two Impairment balance dysfunction Impairment Tinetti gait and balance assessment 11/16 indicating patient at high risk for falls static standing 44 sec without holding on Short Term Goal (STG) Patient to be independent and compliant with gait and balance HEP 12/24/22: as above not as compliant to HEP and not ambulating while on vacation STG Duration 01/24/23 Asset Management Coordinator Goal (LTG) Improve Tinetti gait and balance assessment score to moderate fall risk range to improve safety in the home and community improve static standing balance to at least 60 sec LTG Duration 02/24/23 Assessment Summary Assessment Patient benefits from trunk rotation stretch and cat/cow for improved spinal mobility incorporating deep breathing. Improved gait distance when done first thing in treatment. Physical Therapy Plan Frequency and Duration Frequency of Treatment 1x/Week Duration of treatment (weeks) 12 Plan of Care Start Date 12/24/22 Plan of Care End Date 02/24/23 Therapeutic Interventions Therapeutic Interventions Balance Training,Home Exercise Program,Manual Therapy, Neuromuscular Re-education, Patient/Caregiver Education, Self-Care/Home Management,Soft Tissue Mobilization,Taping, Therapeutic Activities, Therapeutic Exercises Modalities Cold Pack/Ice Massage,Hot Packs Next Visit Focus/Plan Next Note Type Treatment Note Next Visit Plan supine LTR with therapy ball, shoulder and trunk stretching, prone ex for hip ROM, extensor strengthening.
--- NOTE | 2023-01-21 16:41 | PT.OTN ---
Current Diagnoses Multiple sclerosis (01/19/23) Physical Therapy Treatment Note PT-OP-A Visit Information Start: 09/24/22 09:30 Freq: Status: Active Protocol: Document 01/19/23 12:32 [facility] (Rec: 01/19/23 13:21 [facility] [id number]) Out-Patient Physical Therapy Visit Information Visit Information Visit Type Treatment Note Visit Start Time 12:32 Visit Stop Time 13:15 Total Visit Minutes 42 Visit Number 14 Number of LADLE CLEANER Visits 0 Evaluation Information Evaluation Date 09/24/22 Precautions Precautions MS, don't overfatigue, esophageal stenosis PT-OP-B Current Condition Start: 09/24/22 09:30 Freq: Status: Active Protocol: Document 10/05/22 12:33 [facility] (Rec: 10/05/22 13:19 [facility] [id number]) Current Condition History of Current Condition Onset Date March 2019 Current Complaints weakness due to MS, right shoulder pain, LBP History of Current Condition history MS with worsening weakness, as well as right shoulder pain (patient right handed). Patient has caregiver who assists her primarily with household tasks, HEP, walking. She uses a 4WW to walk short diestances (approx 30 feet) in the home, manual w /c for community mobility. No recent falls, but has history of falls. Reports was evaluated for power wheelchair recently but was denied. C/o right shoulder pain and tightness especially with reaching and propelling manual w/c. Well known to this PT for both land and aquatic- based PT. Prior Treatments and Tests prior PT; land and aquatic Future Testing and Treatments Planned nothing planned yet Treatment Goals Patient/Caregiver Goals improve core strength, decrease right shoulder pain, improve gait and balance PT-OP-C Subjective Start: 09/24/22 09:30 Freq: Status: Active Protocol: Document 01/19/23 12:32 [facility] (Rec: 01/19/23 13:21 [facility] [id number]) OP-PT Subjective Patient Comments Patient Comments Pt reports that she is doing well, but she has some R shoulder pain from sewing. PT-OP-D Balance Start: 09/24/22 09:30 Freq: Status: Active Protocol: Document 09/24/22 09:06 [facility] (Rec: 09/28/22 11:39 [facility] [id number]) Tinetti Balance Assessment Sitting Balance Sitting Balance Steady, safe Standing Balance Immediate Standing Balance Steady with support Turning Step Pattern Turning 360 Degrees Discontinuous steps Sitting Down Sitting Down Uses arms or unsteady Gait and Step Initiation of Gait Hesitancy, mult. attempts Right Foot Step Length Does not pass stance ft. Right Foot Step Height Does not clear floor Left Foot Step Length Does not pass stance foot Left Foot Step Height Does not clear floor Step Description Step Symmetry Step length appears equal Step Continuity Stopping or discontinuity Gait Description Path Description Mild/moderate deviation Trunk Description Marked sway or uses aide Walking Stance Heels apart Scoring and Interpretation Tinetti Composite Score (points) 5 PT-OP-E Functional Tests Start: 09/24/22 09:30 Freq: Status: Active Protocol: Document 09/24/22 09:06 [facility] (Rec: 09/28/22 11:39 [facility] [id number]) Functional Tests 2 Minute Walk Test Distance 127 Device Used 4WW PT-OP-G Mobility & Gait Start: 09/24/22 09:30 Freq: Status: Active Protocol: Document 09/24/22 09:06 [facility] (Rec: 09/28/22 11:39 [facility] [id number]) OP Mobility Evaluation Bed Mobility Supine to and from Sit indep Transfers Bed to Chair Transfers indep Car Transfers assisted Floor Transfers not performed OP Gait Assessment Gait Gait Assistance Required: Minimum Assistance Distance (Feet) 127 Assistive Devices Assistive Device Gait Belt,Front Wheeled Walker Orthotic/Prosthetic Devices or Brace: No Gait Deviations General Gait Pattern Decreased Stride Length, Decreased Feet Clearance, Flexed Trunk Factors Limiting Gait Function Factors Limiting Gait Function Abnormal Tonal Influences, Decreased Activity Tolerance, Decreased Strength,Pain Stair Climbing Evaluation Comments Stair Climbing Comments unable PT-OP-H Neuro Start: 09/24/22 09:30 Freq: Status: Active Protocol: Document 09/24/22 09:06 [facility] (Rec: 09/28/22 11:39 [facility] [id number]) Sensation Evaluation Gross Sensation Gross Sensation Left LE Impaired,Right LE Impaired,Trunk Impaired PT-OP-J Posture/Palpation/Skin Start: 09/24/22 09:30 Freq: Status: Active Protocol: Document 09/24/22 09:06 [facility] (Rec: 09/28/22 11:39 [facility] [id number]) Posture Evaluation Position Sitting Head/C-Spine Posture Forward Head Shoulder Posture (L) Rounded,(R) Rounded Shoulder Subluxation Position (L) Anterior,(R) Anterior Scapula Posture (L) Protracted,(R) Protracted Arm Posture (L) Internally Rotated,(R) Internally Rotated PT-OP-K Range of Motion Start: 09/24/22 09:30 Freq: Status: Active Protocol: Document 09/24/22 09:06 [facility] (Rec: 09/28/22 11:39 [facility] [id number]) Hip Goniometric Range of Motion Hip chelle Straight Leg Raise 145 Hip ROM Limitations Hip ROM Limitations Soft Tissue Tightness Ankle and Foot Goniometric Range of Motion Ankle and Foot chelle Dorsiflexion with Knee Flexed 0 Ankle and Foot ROM Limitations ROM Limitations Soft Tissue Tightness PT-OP-M Strength Start: 09/24/22 09:30 Freq: Status: Active Protocol: Document 09/24/22 09:31 [facility] (Rec: 09/24/22 10:22 [facility] [id number]) Trunk Strength Trunk Manual Muscle Testing Flexion 3- Fair- Extension 2+ Poor+ Rotation Left 3- Fair- Rotation Right 3- Fair- Lateral Flexion Left 3- Fair- Lateral Flexion Right 3- Fair- Scapula Strength Scapula Manual Muscle Testing chelle Elevation (C4) 4+ Good+ Adduction 3+ Fair+ Abduction 3 Fair Depression 3+ Fair+ Shoulder Strength Shoulder Manual Muscle Testing Left Flexion 4 Good Extension 4 Good Abduction (C5) 4 Good Adduction 4 Good External Rotation 4 Good Internal Rotation 4 Good Horizontal Abduction 4 Good Horizontal Adduction 4 Good Right Flexion 4 Good Extension 4 Good Abduction (C5) 4 Good Adduction 4 Good External Rotation 4 Good Internal Rotation 4 Good Horizontal Abduction 4 Good Horizontal Adduction 4 Good Elbow/Forearm Strength Elbow and Forearm Manual Muscle Testing Left Flexion (C6) 4 Good Extension (C7) 4 Good Right Comments pain with resisted flex,ab,ER Hip Strength Hip Manual Muscle Testing Left Flexion (L2) 4- Good- Abduction 3- Fair- Adduction 3+ Fair+ Right Flexion (L2) 4- Good- Abduction 2+ Poor+ Adduction 3+ Fair+ Knee Strength Knee Manual Muscle Testing Left Flexion (S2) 4 Good Extension (L3) 4 Good Right Flexion (S2) 4- Good- Extension (L3) 4- Good- Ankle/Foot Strength Ankle and Foot Manual Muscle Testing Left Dorsiflexion (L4) 3+ Fair+ Plantarflexion (S1) 3+ Fair+ Right Dorsiflexion (L4) 3+ Fair+ Plantarflexion (S1) 3+ Fair+ PT-OP-Q Treatments Start: 09/24/22 09:30 Freq: Status: Active Protocol: Document 01/19/23 12:32 [facility] (Rec: 01/19/23 13:21 [facility] [id number]) Therapeutic Exercises Supine Exercises IT band stretch Reps/Minutes 2x30 Comments manual figure 4 Reps/Minutes 2x30 piriformis stretch Side bilateral Reps/Minutes 2x30 Comments manual HC stretch Side bilateral Reps/Minutes 2x30 Comments manual LTR Side bilateral Equipment Used green ball Reps/Minutes 10 HS stretch Side bilateral Reps/Minutes 2x30 Comments manual Prone Exercises scapular retractions Comments cues less arm involvement hip ext Side bilateral Equipment Used pillows under anterior shoulders Reps/Minutes 2x5 reps Comments L AROM, R PT assist; cues for core engagement quad/hip flexor stretch Prone Exercise Name quad then hip flexor Side bilateral Reps/Minutes 2x20 Sitting Exercises lean backs Equipment Used yellow dynadisc under bottom, blue under feet Reps/Minutes 10x row, sh ext Sitting Exercise Name ext Side bilateral Equipment Used sitting on Dynadisc (yellow)/ feet floor- 19.5 elevated table resisted trunk rotation Sitting Exercise Name rotation and pull down (rear facing) Side bilateral Resistance orange, therapist anchored Equipment Used 19 elevated table seated on Yellow dynadisc Gait Training Gait Activity FWW Description beginning of treatment Device Used FWW, w/c trailing by PT AIde Level of Assistance CGA-5%A end distance tolerated (PT aide support follow w/ wc ) Distance/Duration 60 ft Treatment Focus safety, activity tolerance, posture Comments Patient had to sit sooner today due to left LE feeling weak, giving way PT-OP-T Assessment and Plan Start: 09/24/22 09:30 Freq: Status: Active Protocol: Document 01/19/23 12:32 [facility] (Rec: 01/21/23 16:40 [facility] [id number]) Physical Therapy Assessment Goals Three Impairment pain right shoulder and low back Impairment diffiuclty performing ADL's due to pain and pain in right shoulder limits gait due to heavy use of walker Halfway Goal (LTG) Patient to report at least 50% decrease in pain with all usual activities and be independent with HEP for purposes of core stab, shoulder strengthening and stab 12/24/22: patient reported decrease in shoulder pain during vacation with not having to wheel herself (used power w/c), but has increased since starting to wheel again. Dec c/o LBP. Goal progress LTG Duration 02/24/23 One Impairment gait dysfunction Impairment 2 min walk test 127 ft, not able to tolerate 6 min walk test due to fatigue UE's from supporting body on walker and LE fatigue requiring 2 brief standing breaks, needing to stop at 2 min Short Term Goal (STG) Improve 2 min walk test to at least 150 ft as measure of improved functional gait 12/24/22: only able to ambulate 75 ft today and experienced giving way of left knee fdc through gait requiring mod assist to correct. STG Duration 01/24/23 Halfway Goal (LTG) Patient able to tolerate 6 min walk test with gait distance of at least 300 ft as measure of improved functional gait LTG Duration 02/24/23 Four Impairment weakness Impairment 5x sit to stand test 15 sec with moderate use of hands moderate core muscle weakness with less than anti-gravity strength Short Term Goal (STG) Patient to be independent and compliant with updated HEP for purposes of LE and trunk muscle strengthening 12/24/22: patient was on vacation 1 month, not as compliant, noting dec functional strength today. HEP has been updated. Goal progress STG Duration 01/24/23 Flexo Operator Goal (LTG) Patient able to perform 5x sit to stand test in 10 sec as measure of improved functional LE strength and demonstrate 1 grade improvement in trunk muscle strength for improved safety with ADL performance LTG Duration 02/24/23 Two Impairment balance dysfunction Impairment Tinetti gait and balance assessment 11/16 indicating patient at high risk for falls static standing 44 sec without holding on Short Term Goal (STG) Patient to be independent and compliant with gait and balance HEP 12/24/22: as above not as compliant to HEP and not ambulating while on vacation STG Duration 01/24/23 Halfway Goal (LTG) Improve Tinetti gait and balance assessment score to moderate fall risk range to improve safety in the home and community improve static standing balance to at least 60 sec LTG Duration 02/24/23 Assessment Summary Assessment Patient having more difficulty with balance today and needed wheelchair sooner during gait today. Possible exacerbation vs just harder day. Physical Therapy Plan Frequency and Duration Frequency of Treatment 1x/Week Duration of treatment (weeks) 12 Plan of Care Start Date 12/24/22 Plan of Care End Date 02/24/23 Therapeutic Interventions Therapeutic Interventions Balance Training,Home Exercise Program,Manual Therapy, Neuromuscular Re-education, Patient/Caregiver Education, Self-Care/Home Management,Soft Tissue Mobilization,Taping, Therapeutic Activities, Therapeutic Exercises Modalities Cold Pack/Ice Massage,Hot Packs Next Visit Focus/Plan Next Note Type Treatment Note Next Visit Plan Continue PT for therapeutic exercises, gait, balance, modalities and manual therapy CT
--- NOTE | 2023-01-26 14:30 | PT.OTN ---
Current Diagnoses Multiple sclerosis (01/26/23) Physical Therapy Treatment Note PT-OP-A Visit Information Start: 09/24/22 09:30 Freq: Status: Active Protocol: Document 01/26/23 13:51 SP (Rec: 01/26/23 14:34 SP [id number]) Out-Patient Physical Therapy Visit Information Visit Information Visit Type Treatment Note Visit Start Time 13:51 Visit Stop Time 14:30 Total Visit Minutes 39 Visit Number 15 Number of WATER TRAINER Visits 1 Evaluation Information Evaluation Date 09/24/22 Precautions Precautions MS, don't overfatigue, esophageal stenosis PT-OP-B Current Condition Start: 09/24/22 09:30 Freq: Status: Active Protocol: Document 10/05/22 12:33 SAK (Rec: 10/05/22 13:19 SAK [id number]) Current Condition History of Current Condition Onset Date March 2019 Current Complaints weakness due to MS, right shoulder pain, LBP History of Current Condition history MS with worsening weakness, as well as right shoulder pain (patient right handed). Patient has caregiver who assists her primarily with household tasks, HEP, walking. She uses a 4WW to walk short diestances (approx 30 feet) in the home, manual w /c for community mobility. No recent falls, but has history of falls. Reports was evaluated for power wheelchair recently but was denied. C/o right shoulder pain and tightness especially with reaching and propelling manual w/c. Well known to this PT for both land and aquatic- based PT. Prior Treatments and Tests prior PT; land and aquatic Future Testing and Treatments Planned nothing planned yet Treatment Goals Patient/Caregiver Goals improve core strength, decrease right shoulder pain, improve gait and balance PT-OP-C Subjective Start: 09/24/22 09:30 Freq: Status: Active Protocol: Document 01/26/23 13:51 SP (Rec: 01/26/23 14:34 SP [id number]) OP-PT Subjective Patient Comments Patient Comments Pt reports back of R>L vs Bartolo posterolateral neck hurt after prone CS ext and supine head lifts, took couple days to recover. PT-OP-D Balance Start: 09/24/22 09:30 Freq: Status: Active Protocol: Document 09/24/22 09:06 SAK (Rec: 09/28/22 11:39 SAK [id number]) Tinetti Balance Assessment Sitting Balance Sitting Balance Steady, safe Standing Balance Immediate Standing Balance Steady with support Turning Step Pattern Turning 360 Degrees Discontinuous steps Sitting Down Sitting Down Uses arms or unsteady Gait and Step Initiation of Gait Hesitancy, mult. attempts Right Foot Step Length Does not pass stance ft. Right Foot Step Height Does not clear floor Left Foot Step Length Does not pass stance foot Left Foot Step Height Does not clear floor Step Description Step Symmetry Step length appears equal Step Continuity Stopping or discontinuity Gait Description Path Description Mild/moderate deviation Trunk Description Marked sway or uses aide Walking Stance Heels apart Scoring and Interpretation Tinetti Composite Score (points) 5 PT-OP-E Functional Tests Start: 09/24/22 09:30 Freq: Status: Active Protocol: Document 09/24/22 09:06 [facility] (Rec: 09/28/22 11:39 [facility] [id number]) Functional Tests 2 Minute Walk Test Distance 127 Device Used 4WW PT-OP-G Mobility & Gait Start: 09/24/22 09:30 Freq: Status: Active Protocol: Document 09/24/22 09:06 [facility] (Rec: 09/28/22 11:39 [facility] [id number]) OP Mobility Evaluation Bed Mobility Supine to and from Sit indep Transfers Bed to Chair Transfers indep Car Transfers assisted Floor Transfers not performed OP Gait Assessment Gait Gait Assistance Required: Minimum Assistance Distance (Feet) 127 Assistive Devices Assistive Device Gait Belt,Front Wheeled Walker Orthotic/Prosthetic Devices or Brace: No Gait Deviations General Gait Pattern Decreased Stride Length, Decreased Feet Clearance, Flexed Trunk Factors Limiting Gait Function Factors Limiting Gait Function Abnormal Tonal Influences, Decreased Activity Tolerance, Decreased Strength,Pain Stair Climbing Evaluation Comments Stair Climbing Comments unable PT-OP-H Neuro Start: 09/24/22 09:30 Freq: Status: Active Protocol: Document 09/24/22 09:06 [facility] (Rec: 09/28/22 11:39 [facility] [id number]) Sensation Evaluation Gross Sensation Gross Sensation Left LE Impaired,Right LE Impaired,Trunk Impaired PT-OP-J Posture/Palpation/Skin Start: 09/24/22 09:30 Freq: Status: Active Protocol: Document 09/24/22 09:06 [facility] (Rec: 09/28/22 11:39 [facility] [id number]) Posture Evaluation Position Sitting Head/C-Spine Posture Forward Head Shoulder Posture (L) Rounded,(R) Rounded Shoulder Subluxation Position (L) Anterior,(R) Anterior Scapula Posture (L) Protracted,(R) Protracted Arm Posture (L) Internally Rotated,(R) Internally Rotated PT-OP-K Range of Motion Start: 09/24/22 09:30 Freq: Status: Active Protocol: Document 09/24/22 09:06 [facility] (Rec: 09/28/22 11:39 [facility] [id number]) Hip Goniometric Range of Motion Hip bartolo Straight Leg Raise 145 Hip ROM Limitations Hip ROM Limitations Soft Tissue Tightness Ankle and Foot Goniometric Range of Motion Ankle and Foot bartolo Dorsiflexion with Knee Flexed 0 Ankle and Foot ROM Limitations ROM Limitations Soft Tissue Tightness PT-OP-M Strength Start: 09/24/22 09:30 Freq: Status: Active Protocol: Document 09/24/22 09:31 [facility] (Rec: 09/24/22 10:22 [facility] [id number]) Trunk Strength Trunk Manual Muscle Testing Flexion 3- Fair- Extension 2+ Poor+ Rotation Left 3- Fair- Rotation Right 3- Fair- Lateral Flexion Left 3- Fair- Lateral Flexion Right 3- Fair- Scapula Strength Scapula Manual Muscle Testing bartolo Elevation (C4) 4+ Good+ Adduction 3+ Fair+ Abduction 3 Fair Depression 3+ Fair+ Shoulder Strength Shoulder Manual Muscle Testing Left Flexion 4 Good Extension 4 Good Abduction (C5) 4 Good Adduction 4 Good External Rotation 4 Good Internal Rotation 4 Good Horizontal Abduction 4 Good Horizontal Adduction 4 Good Right Flexion 4 Good Extension 4 Good Abduction (C5) 4 Good Adduction 4 Good External Rotation 4 Good Internal Rotation 4 Good Horizontal Abduction 4 Good Horizontal Adduction 4 Good Elbow/Forearm Strength Elbow and Forearm Manual Muscle Testing Left Flexion (C6) 4 Good Extension (C7) 4 Good Right Comments pain with resisted flex,ab,ER Hip Strength Hip Manual Muscle Testing Left Flexion (L2) 4- Good- Abduction 3- Fair- Adduction 3+ Fair+ Right Flexion (L2) 4- Good- Abduction 2+ Poor+ Adduction 3+ Fair+ Knee Strength Knee Manual Muscle Testing Left Flexion (S2) 4 Good Extension (L3) 4 Good Right Flexion (S2) 4- Good- Extension (L3) 4- Good- Ankle/Foot Strength Ankle and Foot Manual Muscle Testing Left Dorsiflexion (L4) 3+ Fair+ Plantarflexion (S1) 3+ Fair+ Right Dorsiflexion (L4) 3+ Fair+ Plantarflexion (S1) 3+ Fair+ PT-OP-Q Treatments Start: 09/24/22 09:30 Freq: Status: Active Protocol: Document 01/26/23 13:51 SP (Rec: 01/26/23 14:34 SP [id number]) Therapeutic Exercises Supine Exercises figure 4 Reps/Minutes 2x30 piriformis stretch Side bilateral Reps/Minutes 2x30 Comments manual HC stretch Side bilateral Reps/Minutes 2x30 Comments manual Prone Exercises prone on elbows Prone Exercise Name cued head nod, CS ext neutral Reps/Minutes 5 SH x3 reps Comments improved less neck tension post manual quad/hip flexor stretch Prone Exercise Name quad then hip flexor Side bilateral Reps/Minutes 2x20 Gait Training Gait Activity FWW Description beginning of treatment Device Used FWW, w/c trailing by PT AIde Level of Assistance CGA-5%A end distance tolerated (PT aide support follow w/ wc ) Distance/Duration 80 ft Treatment Focus safety, activity tolerance, posture Comments Brief stand rest 3/4 distance, LLE little shaky last 2 ft of distance Neuro Re-Education Treatment Balance Activities sittin bal Details balloon Surface 1:1 Equipment yellow Dynadisc on mat and blue under B feety Reps/Duration 10 Comments encouraged cross body wt shift . self recovery UE contact table when over shift lateral x4. PT-OP-T Assessment and Plan Start: 09/24/22 09:30 Freq: Status: Active Protocol: Document 01/26/23 13:51 SP (Rec: 01/26/23 14:34 SP [id number]) Physical Therapy Assessment Goals Three Impairment pain right shoulder and low back Impairment diffiuclty performing ADL's due to pain and pain in right shoulder limits gait due to heavy use of walker Long-Term Goal (LTG) Patient to report at least 50% decrease in pain with all usual activities and be independent with HEP for purposes of core stab, shoulder strengthening and stab 12/24/22: patient reported decrease in shoulder pain during vacation with not having to wheel herself (used power w/c), but has increased since starting to wheel again. Dec c/o LBP. Goal progress LTG Duration 02/24/23 One Impairment gait dysfunction Impairment 2 min walk test 127 ft, not able to tolerate 6 min walk test due to fatigue UE's from supporting body on walker and LE fatigue requiring 2 brief standing breaks, needing to stop at 2 min Short Term Goal (STG) Improve 2 min walk test to at least 150 ft as measure of improved functional gait 12/24/22: only able to ambulate 75 ft today and experienced giving way of left knee long term through gait requiring mod assist to correct. STG Duration 01/24/23 Packing And Final Assembly Supervisor Goal (LTG) Patient able to tolerate 6 min walk test with gait distance of at least 300 ft as measure of improved functional gait LTG Duration 02/24/23 Four Impairment weakness Impairment 5x sit to stand test 15 sec with moderate use of hands moderate core muscle weakness with less than anti-gravity strength Short Term Goal (STG) Patient to be independent and compliant with updated HEP for purposes of LE and trunk muscle strengthening 12/24/22: patient was on vacation 1 month, not as compliant, noting dec functional strength today. HEP has been updated. Goal progress STG Duration 01/24/23 Packing And Final Assembly Supervisor Goal (LTG) Patient able to perform 5x sit to stand test in 10 sec as measure of improved functional LE strength and demonstrate 1 grade improvement in trunk muscle strength for improved safety with ADL performance LTG Duration 02/24/23 Two Impairment balance dysfunction Impairment Tinetti gait and balance assessment 11/16 indicating patient at high risk for falls static standing 44 sec without holding on Short Term Goal (STG) Patient to be independent and compliant with gait and balance HEP 12/24/22: as above not as compliant to HEP and not ambulating while on vacation STG Duration 01/24/23 Packing And Final Assembly Supervisor Goal (LTG) Improve Tinetti gait and balance assessment score to moderate fall risk range to improve safety in the home and community improve static standing balance to at least 60 sec LTG Duration 02/24/23 Assessment Summary Assessment Pt good effort during gait and seated balance activities today, was able to recover lateral over wt shift during balloon activity seated on uneven surface (seat and under BLEs). Pt improvement in spinal alignment with Serratus Press on elbows. Physical Therapy Plan Frequency and Duration Frequency of Treatment 1x/Week Duration of treatment (weeks) 12 Plan of Care Start Date 12/24/22 Plan of Care End Date 02/24/23 Therapeutic Interventions Therapeutic Interventions Balance Training,Home Exercise Program,Manual Therapy, Neuromuscular Re-education, Patient/Caregiver Education, Self-Care/Home Management,Soft Tissue Mobilization,Taping, Therapeutic Activities, Therapeutic Exercises Modalities Cold Pack/Ice Massage,Hot Packs Next Visit Focus/Plan Next Note Type Treatment Note Next Visit Plan Continue PT for therapeutic exercises, gait, balance, modalities and manual therapy MA
--- NOTE | 2023-02-02 15:15 | PT.OTN ---
Current Diagnoses Multiple sclerosis (02/02/23) Physical Therapy Treatment Note PT-OP-A Visit Information Start: 09/24/22 09:30 Freq: Status: Active Protocol: Document 02/02/23 14:49 SP (Rec: 02/02/23 16:02 SP [id number]) Out-Patient Physical Therapy Visit Information Visit Information Visit Type Treatment Note Visit Start Time 14:34 Visit Stop Time 15:15 Total Visit Minutes 41 Visit Number 16 Number of SOUP PERSON Visits 2 Evaluation Information Evaluation Date 09/24/22 Precautions Precautions MS, don't overfatigue, esophageal stenosis PT-OP-B Current Condition Start: 09/24/22 09:30 Freq: Status: Active Protocol: Document 10/05/22 12:33 SAK (Rec: 10/05/22 13:19 SAK [id number]) Current Condition History of Current Condition Onset Date March 2019 Current Complaints weakness due to MS, right shoulder pain, LBP History of Current Condition history MS with worsening weakness, as well as right shoulder pain (patient right handed). Patient has caregiver who assists her primarily with household tasks, HEP, walking. She uses a 4WW to walk short diestances (approx 30 feet) in the home, manual w /c for community mobility. No recent falls, but has history of falls. Reports was evaluated for power wheelchair recently but was denied. C/o right shoulder pain and tightness especially with reaching and propelling manual w/c. Well known to this PT for both land and aquatic- based PT. Prior Treatments and Tests prior PT; land and aquatic Future Testing and Treatments Planned nothing planned yet Treatment Goals Patient/Caregiver Goals improve core strength, decrease right shoulder pain, improve gait and balance PT-OP-C Subjective Start: 09/24/22 09:30 Freq: Status: Active Protocol: Document 02/02/23 14:49 SP (Rec: 02/02/23 16:02 SP [id number]) OP-PT Subjective Patient Comments Patient Comments Pt w/c bound, caregiver usually gets IH w/c when arrives. Pt states BLEs little more shaky today during her transfers for awareness. PT-OP-D Balance Start: 09/24/22 09:30 Freq: Status: Active Protocol: Document 09/24/22 09:06 SAK (Rec: 09/28/22 11:39 SAK [id number]) Tinetti Balance Assessment Sitting Balance Sitting Balance Steady, safe Standing Balance Immediate Standing Balance Steady with support Turning Step Pattern Turning 360 Degrees Discontinuous steps Sitting Down Sitting Down Uses arms or unsteady Gait and Step Initiation of Gait Hesitancy, mult. attempts Right Foot Step Length Does not pass stance ft. Right Foot Step Height Does not clear floor Left Foot Step Length Does not pass stance foot Left Foot Step Height Does not clear floor Step Description Step Symmetry Step length appears equal Step Continuity Stopping or discontinuity Gait Description Path Description Mild/moderate deviation Trunk Description Marked sway or uses aide Walking Stance Heels apart Scoring and Interpretation Tinetti Composite Score (points) 5 PT-OP-E Functional Tests Start: 09/24/22 09:30 Freq: Status: Active Protocol: Document 09/24/22 09:06 [facility] (Rec: 09/28/22 11:39 [facility] [id number]) Functional Tests 2 Minute Walk Test Distance 127 Device Used 4WW PT-OP-G Mobility & Gait Start: 09/24/22 09:30 Freq: Status: Active Protocol: Document 09/24/22 09:06 [facility] (Rec: 09/28/22 11:39 [facility] [id number]) OP Mobility Evaluation Bed Mobility Supine to and from Sit indep Transfers Bed to Chair Transfers indep Car Transfers assisted Floor Transfers not performed OP Gait Assessment Gait Gait Assistance Required: Minimum Assistance Distance (Feet) 127 Assistive Devices Assistive Device Gait Belt,Front Wheeled Walker Orthotic/Prosthetic Devices or Brace: No Gait Deviations General Gait Pattern Decreased Stride Length, Decreased Feet Clearance, Flexed Trunk Factors Limiting Gait Function Factors Limiting Gait Function Abnormal Tonal Influences, Decreased Activity Tolerance, Decreased Strength,Pain Stair Climbing Evaluation Comments Stair Climbing Comments unable PT-OP-H Neuro Start: 09/24/22 09:30 Freq: Status: Active Protocol: Document 09/24/22 09:06 [facility] (Rec: 09/28/22 11:39 [facility] [id number]) Sensation Evaluation Gross Sensation Gross Sensation Left LE Impaired,Right LE Impaired,Trunk Impaired PT-OP-J Posture/Palpation/Skin Start: 09/24/22 09:30 Freq: Status: Active Protocol: Document 09/24/22 09:06 [facility] (Rec: 09/28/22 11:39 [facility] [id number]) Posture Evaluation Position Sitting Head/C-Spine Posture Forward Head Shoulder Posture (L) Rounded,(R) Rounded Shoulder Subluxation Position (L) Anterior,(R) Anterior Scapula Posture (L) Protracted,(R) Protracted Arm Posture (L) Internally Rotated,(R) Internally Rotated PT-OP-K Range of Motion Start: 09/24/22 09:30 Freq: Status: Active Protocol: Document 09/24/22 09:06 [facility] (Rec: 09/28/22 11:39 [facility] [id number]) Hip Goniometric Range of Motion Hip chelle Straight Leg Raise 145 Hip ROM Limitations Hip ROM Limitations Soft Tissue Tightness Ankle and Foot Goniometric Range of Motion Ankle and Foot chelle Dorsiflexion with Knee Flexed 0 Ankle and Foot ROM Limitations ROM Limitations Soft Tissue Tightness PT-OP-M Strength Start: 09/24/22 09:30 Freq: Status: Active Protocol: Document 09/24/22 09:31 [facility] (Rec: 09/24/22 10:22 [facility] [id number]) Trunk Strength Trunk Manual Muscle Testing Flexion 3- Fair- Extension 2+ Poor+ Rotation Left 3- Fair- Rotation Right 3- Fair- Lateral Flexion Left 3- Fair- Lateral Flexion Right 3- Fair- Scapula Strength Scapula Manual Muscle Testing chelle Elevation (C4) 4+ Good+ Adduction 3+ Fair+ Abduction 3 Fair Depression 3+ Fair+ Shoulder Strength Shoulder Manual Muscle Testing Left Flexion 4 Good Extension 4 Good Abduction (C5) 4 Good Adduction 4 Good External Rotation 4 Good Internal Rotation 4 Good Horizontal Abduction 4 Good Horizontal Adduction 4 Good Right Flexion 4 Good Extension 4 Good Abduction (C5) 4 Good Adduction 4 Good External Rotation 4 Good Internal Rotation 4 Good Horizontal Abduction 4 Good Horizontal Adduction 4 Good Elbow/Forearm Strength Elbow and Forearm Manual Muscle Testing Left Flexion (C6) 4 Good Extension (C7) 4 Good Right Comments pain with resisted flex,ab,ER Hip Strength Hip Manual Muscle Testing Left Flexion (L2) 4- Good- Abduction 3- Fair- Adduction 3+ Fair+ Right Flexion (L2) 4- Good- Abduction 2+ Poor+ Adduction 3+ Fair+ Knee Strength Knee Manual Muscle Testing Left Flexion (S2) 4 Good Extension (L3) 4 Good Right Flexion (S2) 4- Good- Extension (L3) 4- Good- Ankle/Foot Strength Ankle and Foot Manual Muscle Testing Left Dorsiflexion (L4) 3+ Fair+ Plantarflexion (S1) 3+ Fair+ Right Dorsiflexion (L4) 3+ Fair+ Plantarflexion (S1) 3+ Fair+ PT-OP-Q Treatments Start: 09/24/22 09:30 Freq: Status: Active Protocol: Document 02/02/23 14:49 SP (Rec: 02/02/23 16:02 SP [id number]) Therapeutic Exercises Supine Exercises trunk rotation Supine Exercise Name self LS & TS stretch Side bilateral Resistance AROM Equipment Used on mat table Reps/Minutes 30 x2 each side Comments Good mid thoracic and QL stretch&ROM- post manual figure 4 Side bilateral Resistance AROM Reps/Minutes 2x30 Comments good adductor/hip flexor stretch piriformis stretch Side bilateral Reps/Minutes 2x30 Comments manual HC stretch Side bilateral Reps/Minutes 2x30 Comments manual hip flexor stretch Supine Exercise Name self passive stretch Side bilateral Resistance mat table BLEs off edge ( perpendicular to EOtable) Reps/Minutes 30-60 Comments good feedback hip flexor stretch Prone Exercises prone on elbows Prone Exercise Name improved self correction CS ext neutral Reps/Minutes 5 SH x3 reps, 7 SH x7 Comments Improved Serratus Press effort hip ext Side bilateral Resistance AROM Equipment Used pillows under anterior shoulders Reps/Minutes 10 reps Comments cues for core& glut engagement - 3 reps R toe touch table quad/hip flexor stretch Prone Exercise Name quad then hip flexor Side bilateral Resistance manual via therapist Equipment Used pillow under chest pt positions Reps/Minutes 2x30 Comments good feedback stretch Sitting Exercises row, sh ext Sitting Exercise Name extension Side bilateral Resistance green, therapist anchored Equipment Used sitting on Dynadisc (yellow)/ feet blue disc- 19.5 elevated black mattable Reps/Minutes x20 reps Comments cued feet together, center with little anterior ischial tuberosity resisted trunk rotation Sitting Exercise Name rotation and pull down (rear facing) Side bilateral Resistance green, therapist anchored Equipment Used sitting on Dynadisc (yellow)/ feet blue disc- 19.5 elevated black mattable Reps/Minutes x15 Comments cued feet together, center with little anterior ischial tuberosity Gait Training Gait Activity FWW Description begin&end of treatment Device Used FWW, w/c trailing by PT AIde Level of Assistance CGA-5%A end distance tolerated Surface carpet/tile hallway Distance/Duration 59 ft, 40 ft Treatment Focus safety, activity tolerance, posture Comments no stand rests, L>R KRISTINA aguirre, last 2 steps during 59 ft LLE scissor step decided to sit, decrease risk of LEs buckling if progressed further . PT-OP-T Assessment and Plan Start: 09/24/22 09:30 Freq: Status: Active Protocol: Document 02/02/23 14:49 SP (Rec: 02/02/23 16:02 SP [id number]) Physical Therapy Assessment Goals Three Impairment pain right shoulder and low back Impairment diffiuclty performing ADL's due to pain and pain in right shoulder limits gait due to heavy use of walker Vibration Engineer Goal (LTG) Patient to report at least 50% decrease in pain with all usual activities and be independent with HEP for purposes of core stab, shoulder strengthening and stab 12/24/22: patient reported decrease in shoulder pain during vacation with not having to wheel herself (used power w/c), but has increased since starting to wheel again. Dec c/o LBP. Goal progress LTG Duration 02/24/23 One Impairment gait dysfunction Impairment 2 min walk test 127 ft, not able to tolerate 6 min walk test due to fatigue UE's from supporting body on walker and LE fatigue requiring 2 brief standing breaks, needing to stop at 2 min Short Term Goal (STG) Improve 2 min walk test to at least 150 ft as measure of improved functional gait 12/24/22: only able to ambulate 75 ft today and experienced giving way of left knee senior living through gait requiring mod assist to correct. STG Duration 01/24/23 Nursing Home Goal (LTG) Patient able to tolerate 6 min walk test with gait distance of at least 300 ft as measure of improved functional gait LTG Duration 02/24/23 Four Impairment weakness Impairment 5x sit to stand test 15 sec with moderate use of hands moderate core muscle weakness with less than anti-gravity strength Short Term Goal (STG) Patient to be independent and compliant with updated HEP for purposes of LE and trunk muscle strengthening 12/24/22: patient was on vacation 1 month, not as compliant, noting dec functional strength today. HEP has been updated. Goal progress STG Duration 01/24/23 Nursing Home Goal (LTG) Patient able to perform 5x sit to stand test in 10 sec as measure of improved functional LE strength and demonstrate 1 grade improvement in trunk muscle strength for improved safety with ADL performance LTG Duration 02/24/23 Two Impairment balance dysfunction Impairment Tinetti gait and balance assessment 11/16 indicating patient at high risk for falls static standing 44 sec without holding on Short Term Goal (STG) Patient to be independent and compliant with gait and balance HEP 12/24/22: as above not as compliant to HEP and not ambulating while on vacation STG Duration 01/24/23 Vibration Engineer Goal (LTG) Improve Tinetti gait and balance assessment score to moderate fall risk range to improve safety in the home and community improve static standing balance to at least 60 sec LTG Duration 02/24/23 Assessment Summary Assessment Started tx as usual with gait before table activities. Pt improved seated stability postural core engagement corrections sitting and BLE on uneven discs with increased resistance UE ther ex. She was able to perform increase time 7 sec during prone serratus press and LT engagement holds. She tolerated 2nd walk end tx after seated, supine/prone activities with improved self scapular LT enagegment to support walking. Physical Therapy Plan Frequency and Duration Frequency of Treatment 1x/Week Duration of treatment (weeks) 12 Plan of Care Start Date 12/24/22 Plan of Care End Date 02/24/23 Therapeutic Interventions Therapeutic Interventions Balance Training,Home Exercise Program,Manual Therapy, Neuromuscular Re-education, Patient/Caregiver Education, Self-Care/Home Management,Soft Tissue Mobilization,Taping, Therapeutic Activities, Therapeutic Exercises Modalities Cold Pack/Ice Massage,Hot Packs Next Visit Focus/Plan Next Note Type Treatment Note Next Visit Plan PT to update POC in 2 visits and add appts needed. Start gait c/FWW 2nd person trail w/c. POC:Continue PT for therapeutic exercises, gait, balance, modalities and manual therapy [place]
--- NOTE | 2023-02-18 16:38 | PT.OTRE ---
Current Diagnoses Multiple sclerosis (02/18/23) Past Medical History (Last Updated 07/18/22 @ 11:01 by Rehan Zacarias MD) IUD (intrauterine device) in place Moderate mixed hyperlipidemia not requiring statin therapy Visit Care Team Role Provider Type Elizabeth Alonso DO Primary Care Provider Physician Specialty: Family Practice Address: [address] [place] [address], [address] Email: [email or web address] Rehan Zacarias MD Family Provider Physician Specialty: Internal Medicine Address: [address] [place] [address], [address] Email: [email or web address] Rufino Umaña MD Attending Provider Non-Staff Referring Provider Specialty: Psychiatry Address: [address] [place] [address], [address] Email: Physical Therapy Re-Evaluation PT-OP-A Visit Information Start: 09/24/22 09:30 Freq: Status: Active Protocol: Document 02/18/23 15:23 [facility] (Rec: 02/18/23 16:38 [facility] [id number]) Out-Patient Physical Therapy Visit Information Visit Information Visit Type Treatment Note Visit Start Time 15:24 Total Visit Minutes 41 Visit Number 17 Number of CLIENT CARE CONSULTANT Visits 0 Evaluation Information Evaluation Date 09/24/22 Precautions Precautions MS, don't overfatigue, esophageal stenosis PT-OP-B Current Condition Start: 09/24/22 09:30 Freq: Status: Active Protocol: Document 10/05/22 12:33 [facility] (Rec: 10/05/22 13:19 [facility] [id number]) Current Condition History of Current Condition Onset Date March 2019 Current Complaints weakness due to MS, right shoulder pain, LBP History of Current Condition history MS with worsening weakness, as well as right shoulder pain (patient right handed). Patient has caregiver who assists her primarily with household tasks, HEP, walking. She uses a 4WW to walk short diestances (approx 30 feet) in the home, manual w /c for community mobility. No recent falls, but has history of falls. Reports was evaluated for power wheelchair recently but was denied. C/o right shoulder pain and tightness especially with reaching and propelling manual w/c. Well known to this PT for both land and aquatic- based PT. Prior Treatments and Tests prior PT; land and aquatic Future Testing and Treatments Planned nothing planned yet Treatment Goals Patient/Caregiver Goals improve core strength, decrease right shoulder pain, improve gait and balance PT-OP-C Subjective Start: 09/24/22 09:30 Freq: Status: Active Protocol: Document 02/18/23 15:23 [facility] (Rec: 02/18/23 16:38 [facility] [id number]) OP-PT Subjective Patient Comments Patient Comments REports bilateral lateral hip muscular pain and spasms for about 2 weeks; started 2 Sundays ago. Only thing she can point to for cause is working on [employer]. Doesn't usually take Baclofen during the day but has been taking 2x day recently, also used pillow under legs while sleeping which was helpful. PT-OP-D Balance Start: 09/24/22 09:30 Freq: Status: Active Protocol: Document 09/24/22 09:06 [facility] (Rec: 09/28/22 11:39 [facility] [id number]) Tinetti Balance Assessment Sitting Balance Sitting Balance Steady, safe Standing Balance Immediate Standing Balance Steady with support Turning Step Pattern Turning 360 Degrees Discontinuous steps Sitting Down Sitting Down Uses arms or unsteady Gait and Step Initiation of Gait Hesitancy, mult. attempts Right Foot Step Length Does not pass stance ft. Right Foot Step Height Does not clear floor Left Foot Step Length Does not pass stance foot Left Foot Step Height Does not clear floor Step Description Step Symmetry Step length appears equal Step Continuity Stopping or discontinuity Gait Description Path Description Mild/moderate deviation Trunk Description Marked sway or uses aide Walking Stance Heels apart Scoring and Interpretation Tinetti Composite Score (points) 5 PT-OP-E Functional Tests Start: 09/24/22 09:30 Freq: Status: Active Protocol: Document 09/24/22 09:06 [facility] (Rec: 09/28/22 11:39 [facility] [id number]) Functional Tests 2 Minute Walk Test Distance 127 Device Used 4WW PT-OP-G Mobility & Gait Start: 09/24/22 09:30 Freq: Status: Active Protocol: Document 09/24/22 09:06 [facility] (Rec: 09/28/22 11:39 [facility] [id number]) OP Mobility Evaluation Bed Mobility Supine to and from Sit indep Transfers Bed to Chair Transfers indep Car Transfers assisted Floor Transfers not performed OP Gait Assessment Gait Gait Assistance Required: Minimum Assistance Distance (Feet) 127 Assistive Devices Assistive Device Gait Belt,Front Wheeled Walker Orthotic/Prosthetic Devices or Brace: No Gait Deviations General Gait Pattern Decreased Stride Length, Decreased Feet Clearance, Flexed Trunk Factors Limiting Gait Function Factors Limiting Gait Function Abnormal Tonal Influences, Decreased Activity Tolerance, Decreased Strength,Pain Stair Climbing Evaluation Comments Stair Climbing Comments unable PT-OP-H Neuro Start: 09/24/22 09:30 Freq: Status: Active Protocol: Document 09/24/22 09:06 [facility] (Rec: 09/28/22 11:39 [facility] [id number]) Sensation Evaluation Gross Sensation Gross Sensation Left LE Impaired,Right LE Impaired,Trunk Impaired PT-OP-J Posture/Palpation/Skin Start: 09/24/22 09:30 Freq: Status: Active Protocol: Document 09/24/22 09:06 [facility] (Rec: 09/28/22 11:39 [facility] [id number]) Posture Evaluation Position Sitting Head/C-Spine Posture Forward Head Shoulder Posture (L) Rounded,(R) Rounded Shoulder Subluxation Position (L) Anterior,(R) Anterior Scapula Posture (L) Protracted,(R) Protracted Arm Posture (L) Internally Rotated,(R) Internally Rotated PT-OP-K Range of Motion Start: 09/24/22 09:30 Freq: Status: Active Protocol: Document 09/24/22 09:06 [facility] (Rec: 09/28/22 11:39 [facility] [id number]) Hip Goniometric Range of Motion Hip Measured in Degrees chelle Straight Leg Raise 145 Hip ROM Limitations Hip ROM Limitations Soft Tissue Tightness Ankle and Foot Goniometric Range of Motion Ankle and Foot Measured in Degrees chelle Dorsiflexion with Knee Flexed 0 Ankle and Foot ROM Limitations ROM Limitations Soft Tissue Tightness PT-OP-M Strength Start: 09/24/22 09:30 Freq: Status: Active Protocol: Document 09/24/22 09:31 [facility] (Rec: 09/24/22 10:22 [facility] [id number]) Trunk Strength Trunk Manual Muscle Testing Flexion 3- Fair- Extension 2+ Poor+ Rotation Left 3- Fair- Rotation Right 3- Fair- Lateral Flexion Left 3- Fair- Lateral Flexion Right 3- Fair- Scapula Strength Scapula Manual Muscle Testing chelle Elevation (C4) 4+ Good+ Adduction 3+ Fair+ Abduction 3 Fair Depression 3+ Fair+ Shoulder Strength Shoulder Manual Muscle Testing Left Flexion 4 Good Extension 4 Good Abduction (C5) 4 Good Adduction 4 Good External Rotation 4 Good Internal Rotation 4 Good Horizontal Abduction 4 Good Horizontal Adduction 4 Good Right Flexion 4 Good Extension 4 Good Abduction (C5) 4 Good Adduction 4 Good External Rotation 4 Good Internal Rotation 4 Good Horizontal Abduction 4 Good Horizontal Adduction 4 Good Elbow/Forearm Strength Elbow and Forearm Manual Muscle Testing Left Flexion (C6) 4 Good Extension (C7) 4 Good Right Comments pain with resisted flex,ab,ER Hip Strength Hip Manual Muscle Testing Left Flexion (L2) 4- Good- Abduction 3- Fair- Adduction 3+ Fair+ Right Flexion (L2) 4- Good- Abduction 2+ Poor+ Adduction 3+ Fair+ Knee Strength Knee Manual Muscle Testing Left Flexion (S2) 4 Good Extension (L3) 4 Good Right Flexion (S2) 4- Good- Extension (L3) 4- Good- Ankle/Foot Strength Ankle and Foot Manual Muscle Testing Left Dorsiflexion (L4) 3+ Fair+ Plantarflexion (S1) 3+ Fair+ Right Dorsiflexion (L4) 3+ Fair+ Plantarflexion (S1) 3+ Fair+ PT-OP-Q Treatments Start: 09/24/22 09:30 Freq: Status: Active Protocol: Document 02/18/23 15:23 [facility] (Rec: 02/18/23 16:38 [facility] [id number]) Gait Training Gait Activity 2 min walk test Comments 68 ft with FWW PT-OP-T Assessment and Plan Start: 09/24/22 09:30 Freq: Status: Active Protocol: Document 02/18/23 15:23 [facility] (Rec: 02/18/23 16:38 [facility] [id number]) Physical Therapy Assessment Goals Three Impairment pain right shoulder and low back Impairment diffiuculty performing ADL's due to pain and pain in right shoulder limits gait due to heavy use of walker Infertility Medical Assistant Goal (LTG) Patient to report at least 50% decrease in pain with all usual activities and be independent with HEP for purposes of core stab, shoulder strengthening and stab 12/24/22: patient reported decrease in shoulder pain during vacation with not having to wheel herself (used power w/c), but has increased since starting to wheel again. Dec c/o LBP. Goal progress 02/18/23: reports decrease in shoulder pain to 0-4/10. Hadn 't been having back pain until exacerbation 2 weeks ago which appears QL. LTG Duration 04/20/23 One Impairment gait dysfunction Impairment 2 min walk test 127 ft, not able to tolerate 6 min walk test due to fatigue UE's from supporting body on walker and LE fatigue requiring 2 brief standing breaks, needing to stop at 2 min Short Term Goal (STG) Improve 2 min walk test to at least 150 ft as measure of improved functional gait 12/24/22: only able to ambulate 75 ft today and experienced giving way of left knee care home through gait requiring mod assist to correct. 02/18/23: 2 min walk test 68 ft today, limited due to back pain and left leg giving way requiring her to sit STG Duration 03/20/23 Infertility Medical Assistant Goal (LTG) Patient able to tolerate 6 min walk test with gait distance of at least 300 ft as measure of improved functional gait LTG Duration 04/20/23 Four Impairment weakness Impairment 5x sit to stand test 15 sec with moderate use of hands moderate core muscle weakness with less than anti-gravity strength Short Term Goal (STG) Patient to be independent and compliant with updated HEP for purposes of LE and trunk muscle strengthening 12/24/22: patient was on vacation 1 month, not as compliant, noting dec functional strength today. HEP has been updated. Goal progress 02/18/23: patient compliant with HEP, ongoing progression STG Duration goal met [facility]sp Goal (LTG) Patient able to perform 5x sit to stand test in 10 sec as measure of improved functional LE strength and demonstrate 1 grade improvement in trunk muscle strength for improved safety with ADL performance 02/18/23: 10 sec today with 5x sit to stand. Noting improved functional core strength, good goal progress LTG Duration 04/20/23 Two Impairment balance dysfunction Impairment Tinetti gait and balance assessment 11/16 indicating patient at high risk for falls static standing 44 sec without holding on Short Term Goal (STG) Patient to be independent and compliant with gait and balance HEP 12/24/22: as above not as compliant to HEP and not ambulating while on vacation 02/18/23: 41 sec standing, limited by back pain STG Duration 03/20/23 Infertility Medical Assistant Goal (LTG) Improve Tinetti gait and balance assessment score to moderate fall risk range to improve safety in the home and community improve static standing balance to at least 60 sec LTG Duration 04/20/23 Assessment Summary Assessment Re-eval today with patient showing some improvement in seated balance and core control though reporting 2 weeks of spasms in back which appears to be in quadratus lumborum left greater than right which has limited her activity tolerance recently. No improvement in 2 min walk test since last tested as a result. Patient is reporting improvement in shoulder pain. REcommend continued PT to help patient continue to work toward above goals with dec pain and improved function. Physical Therapy Plan Frequency and Duration Frequency of Treatment 1x/Week Duration of treatment (weeks) 12 Plan of Care Start Date 12/24/22 Plan of Care End Date 02/24/23 Therapeutic Interventions Therapeutic Interventions Balance Training,Home Exercise Program,Manual Therapy, Neuromuscular Re-education, Patient/Caregiver Education, Self-Care/Home Management,Soft Tissue Mobilization,Taping, Therapeutic Activities, Therapeutic Exercises Modalities Cold Pack/Ice Massage,Hot Packs Next Visit Focus/Plan Next Note Type Treatment Note Next Visit Plan Trial Sci-Fit prior to gait training. Shuttle leg press. Continue core strengthening and seated bal ex, shoulder strengthening and scapular stab.
--- NOTE | 2023-02-18 16:38 | PT.OPPOC ---
Physical, Occupational & Speech Therapy At [facility] Current Diagnoses Multiple sclerosis (02/18/23) Visit Care Team Role Provider Type Elizabeth Alonso DO Primary Care Provider Physician Specialty: Family Practice Address: [address] [place] [address] [address], [place], [address] Email: [email or web address] Rehan Zacarias MD Family Provider Physician Specialty: Internal Medicine Address: [address] [place] [address] [address], [place], [address] Email: 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 Dec c/o LBP. Goal progress 02/18/23: reports decrease in shoulder pain to 0-4/10. Hadn 't been having back pain until exacerbation 2 weeks ago which appears QL. LTG Duration 04/20/23 One Impairment gait dysfunction Impairment 2 min walk test 127 ft, not able to tolerate 6 min walk test due to fatigue UE's from supporting body on walker and LE fatigue requiring 2 brief standing breaks, needing to stop at 2 min Short Term Goal (STG) Improve 2 min walk test to at least 150 ft as measure of improved functional gait 12/24/22: only able to ambulate 75 ft today and experienced giving way of left knee mcfp through gait requiring mod assist to correct. 02/18/23: 2 min walk test 68 ft today, limited due to back pain and left leg giving way requiring her to sit STG Duration 03/20/23 Group Home Goal (LTG) Patient able to tolerate 6 min walk test with gait distance of at least 300 ft as measure of improved functional gait LTG Duration 04/20/23 Four Impairment weakness Impairment 5x sit to stand test 15 sec with moderate use of hands moderate core muscle weakness with less than anti-gravity strength Short Term Goal (STG) Patient to be independent and compliant with updated HEP for purposes of LE and trunk muscle strengthening 12/24/22: patient was on vacation 1 month, not as compliant, noting dec functional strength today. HEP has been updated. Goal progress 02/18/23: patient compliant with HEP, ongoing progression STG Duration goal met Machine Farmworker Goal (LTG) Patient able to perform 5x sit to stand test in 10 sec as measure of improved functional LE strength and demonstrate 1 grade improvement in trunk muscle strength for improved safety with ADL performance 02/18/23: 10 sec today with 5x sit to stand. Noting improved functional core strength, good goal progress LTG Duration 04/20/23 Two Impairment balance dysfunction Impairment Tinetti gait and balance assessment 11/16 indicating patient at high risk for falls static standing 44 sec without holding on Short Term Goal (STG) Patient to be independent and compliant with gait and balance HEP 12/24/22: as above not as compliant to HEP and not ambulating while on vacation 02/18/23: 41 sec standing, limited by back pain STG Duration 03/20/23 Machine Farmworker Goal (LTG) Improve Tinetti gait and balance assessment score to moderate fall risk range to improve safety in the home and community improve static standing balance to at least 60 sec LTG Duration 04/20/23 Assessment Summary Assessment Re-eval today with patient showing some improvement in seated balance and core control though reporting 2 weeks of spasms in back which appears to be in quadratus lumborum left greater than right which has limited her activity tolerance recently. No improvement in 2 min walk test since last tested as a result. Patient is reporting improvement in shoulder pain. REcommend continued PT to help patient continue to work toward above goals with dec pain and improved function. Physical Therapy Plan Frequency and Duration Frequency of Treatment 1x/Week Duration of treatment (weeks) 12 Plan of Care Start Date 12/24/22 Plan of Care End Date 02/24/23 Therapeutic Interventions Therapeutic Interventions Balance Training,Home Exercise Program,Manual Therapy, Neuromuscular Re-education, Patient/Caregiver Education, Self-Care/Home Management,Soft Tissue Mobilization,Taping, Therapeutic Activities, Therapeutic Exercises Modalities Cold Pack/Ice Massage,Hot Packs Next Visit Focus/Plan Next Note Type Treatment Note Next Visit Plan Trial Sci-Fit prior to gait training. Shuttle leg press. Continue core strengthening and seated bal ex, shoulder strengthening and scapular stab. Plan of Care Dates Plan of Care Start Date 12/24/22 Plan of Care End Date 02/24/23 Electronically Signed by: Bertha Redding, PT 02/18/23 3329 If you are in agreement with this Plan of Care, please return a signed and dated copy. I have reviewed this Plan of Care and certify that the skilled therapy services above are required to meet the patient?s needs. Physician Signature Date Printed Name and Credentials Clinical Instructor Signature Printed Name and Credentials
--- NOTE | 2023-03-02 10:52 | PT.OTN ---
Current Diagnoses Multiple sclerosis (03/02/23) Physical Therapy Treatment Note PT-OP-A Visit Information Start: 09/24/22 09:30 Freq: Status: Active Protocol: Document 03/02/23 09:47 SAK (Rec: 03/02/23 10:52 [facility] [id number]) Out-Patient Physical Therapy Visit Information Visit Information Visit Type Treatment Note Visit Start Time 09:48 Total Visit Minutes 45 Visit Number 18 Number of VOLTAGE REGULATOR ASSEMBLER Visits 0 Evaluation Information Evaluation Date 09/24/22 Precautions Precautions MS, don't overfatigue, esophageal stenosis PT-OP-B Current Condition Start: 09/24/22 09:30 Freq: Status: Active Protocol: Document 10/05/22 12:33 SAK (Rec: 10/05/22 13:19 SAK [id number]) Current Condition History of Current Condition Onset Date March 2019 Current Complaints weakness due to MS, right shoulder pain, LBP History of Current Condition history MS with worsening weakness, as well as right shoulder pain (patient right handed). Patient has caregiver who assists her primarily with household tasks, HEP, walking. She uses a 4WW to walk short diestances (approx 30 feet) in the home, manual w /c for community mobility. No recent falls, but has history of falls. Reports was evaluated for power wheelchair recently but was denied. C/o right shoulder pain and tightness especially with reaching and propelling manual w/c. Well known to this PT for both land and aquatic- based PT. Prior Treatments and Tests prior PT; land and aquatic Future Testing and Treatments Planned nothing planned yet Treatment Goals Patient/Caregiver Goals improve core strength, decrease right shoulder pain, improve gait and balance PT-OP-C Subjective Start: 09/24/22 09:30 Freq: Status: Active Protocol: Document 03/02/23 09:47 SAK (Rec: 03/02/23 10:52 [facility] [id number]) OP-PT Subjective Patient Comments Patient Comments Getting better at shorter bouts of sewing, stretching and correcting posture. Hasn 't been able to do any walking this week. PT-OP-D Balance Start: 09/24/22 09:30 Freq: Status: Active Protocol: Document 09/24/22 09:06 SAK (Rec: 09/28/22 11:39 [facility] [id number]) Tinetti Balance Assessment Sitting Balance Sitting Balance Steady, safe Standing Balance Immediate Standing Balance Steady with support Turning Step Pattern Turning 360 Degrees Discontinuous steps Sitting Down Sitting Down Uses arms or unsteady Gait and Step Initiation of Gait Hesitancy, mult. attempts Right Foot Step Length Does not pass stance ft. Right Foot Step Height Does not clear floor Left Foot Step Length Does not pass stance foot Left Foot Step Height Does not clear floor Step Description Step Symmetry Step length appears equal Step Continuity Stopping or discontinuity Gait Description Path Description Mild/moderate deviation Trunk Description Marked sway or uses aide Walking Stance Heels apart Scoring and Interpretation Tinetti Composite Score (points) 5 PT-OP-E Functional Tests Start: 09/24/22 09:30 Freq: Status: Active Protocol: Document 09/24/22 09:06 [facility] (Rec: 09/28/22 11:39 [facility] [id number]) Functional Tests 2 Minute Walk Test Distance 127 Device Used 4WW PT-OP-G Mobility & Gait Start: 09/24/22 09:30 Freq: Status: Active Protocol: Document 09/24/22 09:06 [facility] (Rec: 09/28/22 11:39 [facility] [id number]) OP Mobility Evaluation Bed Mobility Supine to and from Sit indep Transfers Bed to Chair Transfers indep Car Transfers assisted Floor Transfers not performed OP Gait Assessment Gait Gait Assistance Required: Minimum Assistance Distance (Feet) 127 Assistive Devices Assistive Device Gait Belt,Front Wheeled Walker Orthotic/Prosthetic Devices or Brace: No Gait Deviations General Gait Pattern Decreased Stride Length, Decreased Feet Clearance, Flexed Trunk Factors Limiting Gait Function Factors Limiting Gait Function Abnormal Tonal Influences, Decreased Activity Tolerance, Decreased Strength,Pain Stair Climbing Evaluation Comments Stair Climbing Comments unable PT-OP-H Neuro Start: 09/24/22 09:30 Freq: Status: Active Protocol: Document 09/24/22 09:06 [facility] (Rec: 09/28/22 11:39 [facility] [id number]) Sensation Evaluation Gross Sensation Gross Sensation Left LE Impaired,Right LE Impaired,Trunk Impaired PT-OP-J Posture/Palpation/Skin Start: 09/24/22 09:30 Freq: Status: Active Protocol: Document 09/24/22 09:06 [facility] (Rec: 09/28/22 11:39 [facility] [id number]) Posture Evaluation Position Sitting Head/C-Spine Posture Forward Head Shoulder Posture (L) Rounded,(R) Rounded Shoulder Subluxation Position (L) Anterior,(R) Anterior Scapula Posture (L) Protracted,(R) Protracted Arm Posture (L) Internally Rotated,(R) Internally Rotated PT-OP-K Range of Motion Start: 09/24/22 09:30 Freq: Status: Active Protocol: Document 09/24/22 09:06 [facility] (Rec: 09/28/22 11:39 [facility] [id number]) Hip Goniometric Range of Motion Hip chelle Straight Leg Raise 145 Hip ROM Limitations Hip ROM Limitations Soft Tissue Tightness Ankle and Foot Goniometric Range of Motion Ankle and Foot chelle Dorsiflexion with Knee Flexed 0 Ankle and Foot ROM Limitations ROM Limitations Soft Tissue Tightness PT-OP-M Strength Start: 09/24/22 09:30 Freq: Status: Active Protocol: Document 09/24/22 09:31 [facility] (Rec: 09/24/22 10:22 [facility] [id number]) Trunk Strength Trunk Manual Muscle Testing Flexion 3- Fair- Extension 2+ Poor+ Rotation Left 3- Fair- Rotation Right 3- Fair- Lateral Flexion Left 3- Fair- Lateral Flexion Right 3- Fair- Scapula Strength Scapula Manual Muscle Testing chelle Elevation (C4) 4+ Good+ Adduction 3+ Fair+ Abduction 3 Fair Depression 3+ Fair+ Shoulder Strength Shoulder Manual Muscle Testing Left Flexion 4 Good Extension 4 Good Abduction (C5) 4 Good Adduction 4 Good External Rotation 4 Good Internal Rotation 4 Good Horizontal Abduction 4 Good Horizontal Adduction 4 Good Right Flexion 4 Good Extension 4 Good Abduction (C5) 4 Good Adduction 4 Good External Rotation 4 Good Internal Rotation 4 Good Horizontal Abduction 4 Good Horizontal Adduction 4 Good Elbow/Forearm Strength Elbow and Forearm Manual Muscle Testing Left Flexion (C6) 4 Good Extension (C7) 4 Good Right Comments pain with resisted flex,ab,ER Hip Strength Hip Manual Muscle Testing Left Flexion (L2) 4- Good- Abduction 3- Fair- Adduction 3+ Fair+ Right Flexion (L2) 4- Good- Abduction 2+ Poor+ Adduction 3+ Fair+ Knee Strength Knee Manual Muscle Testing Left Flexion (S2) 4 Good Extension (L3) 4 Good Right Flexion (S2) 4- Good- Extension (L3) 4- Good- Ankle/Foot Strength Ankle and Foot Manual Muscle Testing Left Dorsiflexion (L4) 3+ Fair+ Plantarflexion (S1) 3+ Fair+ Right Dorsiflexion (L4) 3+ Fair+ Plantarflexion (S1) 3+ Fair+ PT-OP-Q Treatments Start: 09/24/22 09:30 Freq: Status: Active Protocol: Document 03/02/23 09:47 SAK (Rec: 03/02/23 10:52 [facility] [id number]) Cardio Equipment Recumbent Stepper (Sci-Fit) Duration (Minutes) 5 Resistance 1 Seat Position 11 Other UE/LEs Therapeutic Exercises Supine Exercises hip abd Equipment Used slider sheet Reps/Minutes 10x quad stretch Reps/Minutes 2x30 Comments legs over the side of the table SAQ Equipment Used 2# Reps/Minutes 10x IT band stretch Reps/Minutes 2x30 Comments manual figure 4 Side bilateral Resistance AROM Reps/Minutes 2x30 Comments good adductor/hip flexor stretch piriformis stretch Side bilateral Reps/Minutes 2x30 Comments manual HC stretch Side bilateral Reps/Minutes 2x30 Comments manual hip flexor stretch Supine Exercise Name self passive stretch Side bilateral Resistance mat table BLEs off edge ( perpendicular to EOtable) Reps/Minutes 30-60 Comments good feedback hip flexor stretch Prone Exercises HS curl Equipment Used 2# wt Reps/Minutes 10x prone on elbows Prone Exercise Name improved self correction CS ext neutral Reps/Minutes 5 SH x3 reps, 7 SH x7 Comments Improved Serratus Press effort hip ext Side bilateral Resistance AROM Equipment Used pillows under anterior shoulders Reps/Minutes 10 reps Comments cues for core& glut engagement - 3 reps R toe touch table Sitting Exercises lean backs Equipment Used yellow dynadisc under bottom, blue under feet Reps/Minutes 10x row, sh ext Sitting Exercise Name extension Side bilateral Resistance green, therapist anchored Equipment Used sitting on Dynadisc (yellow)/ feet blue disc- 19.5 elevated black mattable Reps/Minutes x20 reps Comments cued feet together, center with little anterior ischial tuberosity resisted trunk rotation Sitting Exercise Name rotation and pull down (rear facing) Side bilateral Resistance green, therapist anchored Equipment Used sitting on Dynadisc (yellow)/ feet blue disc- 19.5 elevated black mattable Reps/Minutes x15 Comments cued feet together, center with little anterior ischial tuberosity Gait Training Gait Activity 2 min walk test Comments 55 ft with FWW beginning of treatment PT-OP-T Assessment and Plan Start: 09/24/22 09:30 Freq: Status: Active Protocol: Document 03/02/23 09:47 STUART (Rec: 03/02/23 10:52 [facility] [id number]) Physical Therapy Assessment Goals Three Impairment pain right shoulder and low back Impairment diffiuculty performing ADL's due to pain and pain in right shoulder limits gait due to heavy use of walker Assisted Goal (LTG) Patient to report at least 50% decrease in pain with all usual activities and be independent with HEP for purposes of core stab, shoulder strengthening and stab 12/24/22: patient reported decrease in shoulder pain during vacation with not having to wheel herself (used power w/c), but has increased since starting to wheel again. Dec c/o LBP. Goal progress 02/18/23: reports decrease in shoulder pain to 0-4/10. Hadn 't been having back pain until exacerbation 2 weeks ago which appears QL. LTG Duration 04/20/23 One Impairment gait dysfunction Impairment 2 min walk test 127 ft, not able to tolerate 6 min walk test due to fatigue UE's from supporting body on walker and LE fatigue requiring 2 brief standing breaks, needing to stop at 2 min Short Term Goal (STG) Improve 2 min walk test to at least 150 ft as measure of improved functional gait 12/24/22: only able to ambulate 75 ft today and experienced giving way of left knee correction through gait requiring mod assist to correct. 02/18/23: 2 min walk test 68 ft today, limited due to back pain and left leg giving way requiring her to sit STG Duration 03/20/23 Assisted Goal (LTG) Patient able to tolerate 6 min walk test with gait distance of at least 300 ft as measure of improved functional gait LTG Duration 04/20/23 Four Impairment weakness Impairment 5x sit to stand test 15 sec with moderate use of hands moderate core muscle weakness with less than anti-gravity strength Short Term Goal (STG) Patient to be independent and compliant with updated HEP for purposes of LE and trunk muscle strengthening 12/24/22: patient was on vacation 1 month, not as compliant, noting dec functional strength today. HEP has been updated. Goal progress 02/18/23: patient compliant with HEP, ongoing progression STG Duration goal met Assisted Goal (LTG) Patient able to perform 5x sit to stand test in 10 sec as measure of improved functional LE strength and demonstrate 1 grade improvement in trunk muscle strength for improved safety with ADL performance 02/18/23: 10 sec today with 5x sit to stand. Noting improved functional core strength, good goal progress LTG Duration 04/20/23 Two Impairment balance dysfunction Impairment Tinetti gait and balance assessment 11/16 indicating patient at high risk for falls static standing 44 sec without holding on Short Term Goal (STG) Patient to be independent and compliant with gait and balance HEP 12/24/22: as above not as compliant to HEP and not ambulating while on vacation 02/18/23: 41 sec standing, limited by back pain STG Duration 03/20/23 Transit Bus Driver Goal (LTG) Improve Tinetti gait and balance assessment score to moderate fall risk range to improve safety in the home and community improve static standing balance to at least 60 sec LTG Duration 04/20/23 Physical Therapy Plan Frequency and Duration Frequency of Treatment 1x/Week Duration of treatment (weeks) 12 Plan of Care Start Date 12/24/22 Plan of Care End Date 02/24/23 Therapeutic Interventions Therapeutic Interventions Balance Training,Home Exercise Program,Manual Therapy, Neuromuscular Re-education, Patient/Caregiver Education, Self-Care/Home Management,Soft Tissue Mobilization,Taping, Therapeutic Activities, Therapeutic Exercises Modalities Cold Pack/Ice Massage,Hot Packs Next Visit Focus/Plan Next Note Type Treatment Note Next Visit Plan Cont Sci-Fit, gait training, balance, flexibility, strengthening progression
--- NOTE | 2023-03-02 16:00 | PT.OPPOC ---
Physical, Occupational & Speech Therapy At [facility] Current Diagnoses Multiple sclerosis (03/02/23) Visit Care Team Role Provider Type Elizabeth Alonso DO Primary Care Provider Physician Specialty: Family Practice Address: [address] [place] [address] [address], [place], [address] Email: [email or web address] Rehan Zacarias MD Family Provider Physician Specialty: Internal Medicine Address: [address] [place] [address], [address], [address] Email: [email or web address] Rufino Umaña MD Attending Provider Non-Staff Referring Provider Specialty: Psychiatry Address: [address] [place] [address], [id number] Email: Plan Of Care PT-OP-T Assessment and Plan Start: 09/24/22 09:30 Freq: Status: Active Protocol: Document 03/02/23 09:47 [facility] (Rec: 03/02/23 10:52 [facility] [id number]) Physical Therapy Assessment Goals Three Impairment pain right shoulder and low back Impairment diffiuculty performing ADL's due to pain and pain in right shoulder limits gait due to heavy use of walker Rn Nursery Goal (LTG) Patient to report at least 50% decrease in pain with all usual activities and be independent with HEP for purposes of core stab, shoulder strengthening and stab 12/24/22: patient reported decrease in shoulder pain during vacation with not having to wheel herself (used power w/c), but has increased since starting to wheel again. Dec c/o LBP. Goal progress 02/18/23: reports decrease in shoulder pain to 0-4/10. Hadn 't been having back pain until exacerbation 2 weeks ago which appears QL. LTG Duration 05/26/23 One Impairment gait dysfunction Impairment 2 min walk test 127 ft, not able to tolerate 6 min walk test due to fatigue UE's from supporting body on walker and LE fatigue requiring 2 brief standing breaks, needing to stop at 2 min Short Term Goal (STG) Improve 2 min walk test to at least 150 ft as measure of improved functional gait 12/24/22: only able to ambulate 75 ft today and experienced giving way of left knee alf through gait requiring mod assist to correct. 02/18/23: 2 min walk test 68 ft today, limited due to back pain and left leg giving way requiring her to sit STG Duration 04/20/23 Rn Nursery Goal (LTG) Patient able to tolerate 6 min walk test with gait distance of at least 300 ft as measure of improved functional gait LTG Duration 05/26/23 Four Impairment weakness Impairment 5x sit to stand test 15 sec with moderate use of hands moderate core muscle weakness with less than anti-gravity strength Short Term Goal (STG) Patient to be independent and compliant with updated HEP for purposes of LE and trunk muscle strengthening 12/24/22: patient was on vacation 1 month, not as compliant, noting dec functional strength today. HEP has been updated. Goal progress 02/18/23: patient compliant with HEP, ongoing progression STG Duration goal met [facility]pc Goal (LTG) Patient able to perform 5x sit to stand test in 10 sec as measure of improved functional LE strength and demonstrate 1 grade improvement in trunk muscle strength for improved safety with ADL performance 02/18/23: 10 sec today with 5x sit to stand. Noting improved functional core strength, good goal progress LTG Duration 05/26/23 Two Impairment balance dysfunction Impairment Tinetti gait and balance assessment 11/16 indicating patient at high risk for falls static standing 44 sec without holding on Short Term Goal (STG) Patient to be independent and compliant with gait and balance HEP 12/24/22: as above not as compliant to HEP and not ambulating while on vacation 02/18/23: 41 sec standing, limited by back pain STG Duration 04/20/23 [facility]pc Goal (LTG) Improve Tinetti gait and balance assessment score to moderate fall risk range to improve safety in the home and community improve static standing balance to at least 60 sec LTG Duration 05/26/23 Assessment Summary Assessment Patient function and progress is variable due to her MS, noticing most improvement in core strength and balance. Gait has been more limited recently due to left knee giving out at times and fatigue of UE's due to heavy use on walker. Feel further skilled PT is indicated to help progress, modify, and adapt HEP and functional mobility skills in relation to the progressive nature of her MS and help her achieve the above PT goals for improved function and quality of life. POC was discussed and patient was in agreement. Physical Therapy Plan Frequency and Duration Frequency of Treatment 1x/Week Duration of treatment (weeks) 12 Plan of Care Start Date 02/24/23 Plan of Care End Date 05/26/23 Therapeutic Interventions Therapeutic Interventions Balance Training,Home Exercise Program,Manual Therapy, Neuromuscular Re-education, Patient/Caregiver Education, Self-Care/Home Management,Soft Tissue Mobilization,Taping, Therapeutic Activities, Therapeutic Exercises Modalities Cold Pack/Ice Massage,Hot Packs Next Visit Focus/Plan Next Note Type Treatment Note Next Visit Plan Cont Sci-Fit, gait training, balance, flexibility, strengthening progression Plan of Care Dates Plan of Care Start Date 02/24/23 Plan of Care End Date 05/26/23 Electronically Signed by: Bertha Redding, PT 03/07/23 0910 If you are in agreement with this Plan of Care, please return a signed and dated copy. I have reviewed this Plan of Care and certify that the skilled therapy services above are required to meet the patient?s needs. Physician Signature Date Printed Name and Credentials Clinical Instructor Signature Printed Name and Credentials
--- NOTE | 2023-03-08 15:09 | PT.OTN ---
Current Diagnoses Multiple sclerosis (03/08/23) Physical Therapy Treatment Note PT-OP-A Visit Information Start: 09/24/22 09:30 Freq: Status: Active Protocol: Document 03/08/23 12:54 [facility] (Rec: 03/08/23 13:50 [facility] [id number]) Out-Patient Physical Therapy Visit Information Visit Information Visit Type Treatment Note Visit Start Time 12:55 Visit Stop Time 13:45 Total Visit Minutes 50 Visit Number 19 Number of MANAGER EDUCATION Visits 0 Evaluation Information Evaluation Date 09/24/22 Precautions Precautions MS, don't overfatigue, esophageal stenosis PT-OP-B Current Condition Start: 09/24/22 09:30 Freq: Status: Active Protocol: Document 10/05/22 12:33 [facility] (Rec: 10/05/22 13:19 [facility] [id number]) Current Condition History of Current Condition Onset Date March 2019 Current Complaints weakness due to MS, right shoulder pain, LBP History of Current Condition history MS with worsening weakness, as well as right shoulder pain (patient right handed). Patient has caregiver who assists her primarily with household tasks, HEP, walking. She uses a 4WW to walk short diestances (approx 30 feet) in the home, manual w /c for community mobility. No recent falls, but has history of falls. Reports was evaluated for power wheelchair recently but was denied. C/o right shoulder pain and tightness especially with reaching and propelling manual w/c. Well known to this PT for both land and aquatic- based PT. Prior Treatments and Tests prior PT; land and aquatic Future Testing and Treatments Planned nothing planned yet Treatment Goals Patient/Caregiver Goals improve core strength, decrease right shoulder pain, improve gait and balance PT-OP-C Subjective Start: 09/24/22 09:30 Freq: Status: Active Protocol: Document 03/08/23 12:54 [facility] (Rec: 03/08/23 13:50 [facility] [id number]) OP-PT Subjective Patient Comments Patient Comments c/o inc right shoulder pain, possibly from making cookies and sewing. PT-OP-D Balance Start: 09/24/22 09:30 Freq: Status: Active Protocol: Document 09/24/22 09:06 [facility] (Rec: 09/28/22 11:39 [facility] [id number]) Tinetti Balance Assessment Sitting Balance Sitting Balance Steady, safe Standing Balance Immediate Standing Balance Steady with support Turning Step Pattern Turning 360 Degrees Discontinuous steps Sitting Down Sitting Down Uses arms or unsteady Gait and Step Initiation of Gait Hesitancy, mult. attempts Right Foot Step Length Does not pass stance ft. Right Foot Step Height Does not clear floor Left Foot Step Length Does not pass stance foot Left Foot Step Height Does not clear floor Step Description Step Symmetry Step length appears equal Step Continuity Stopping or discontinuity Gait Description Path Description Mild/moderate deviation Trunk Description Marked sway or uses aide Walking Stance Heels apart Scoring and Interpretation Tinetti Composite Score (points) 5 PT-OP-E Functional Tests Start: 09/24/22 09:30 Freq: Status: Active Protocol: Document 09/24/22 09:06 [facility] (Rec: 09/28/22 11:39 [facility] [id number]) Functional Tests 2 Minute Walk Test Distance 127 Device Used 4WW PT-OP-G Mobility & Gait Start: 09/24/22 09:30 Freq: Status: Active Protocol: Document 09/24/22 09:06 [facility] (Rec: 09/28/22 11:39 [facility] [id number]) OP Mobility Evaluation Bed Mobility Supine to and from Sit indep Transfers Bed to Chair Transfers indep Car Transfers assisted Floor Transfers not performed OP Gait Assessment Gait Gait Assistance Required: Minimum Assistance Distance (Feet) 127 Assistive Devices Assistive Device Gait Belt,Front Wheeled Walker Orthotic/Prosthetic Devices or Brace: No Gait Deviations General Gait Pattern Decreased Stride Length, Decreased Feet Clearance, Flexed Trunk Factors Limiting Gait Function Factors Limiting Gait Function Abnormal Tonal Influences, Decreased Activity Tolerance, Decreased Strength,Pain Stair Climbing Evaluation Comments Stair Climbing Comments unable PT-OP-H Neuro Start: 09/24/22 09:30 Freq: Status: Active Protocol: Document 09/24/22 09:06 [facility] (Rec: 09/28/22 11:39 [facility] [id number]) Sensation Evaluation Gross Sensation Gross Sensation Left LE Impaired,Right LE Impaired,Trunk Impaired PT-OP-J Posture/Palpation/Skin Start: 09/24/22 09:30 Freq: Status: Active Protocol: Document 09/24/22 09:06 [facility] (Rec: 09/28/22 11:39 [facility] [id number]) Posture Evaluation Position Sitting Head/C-Spine Posture Forward Head Shoulder Posture (L) Rounded,(R) Rounded Shoulder Subluxation Position (L) Anterior,(R) Anterior Scapula Posture (L) Protracted,(R) Protracted Arm Posture (L) Internally Rotated,(R) Internally Rotated PT-OP-K Range of Motion Start: 09/24/22 09:30 Freq: Status: Active Protocol: Document 09/24/22 09:06 [facility] (Rec: 09/28/22 11:39 [facility] [id number]) Hip Goniometric Range of Motion Hip chelle Straight Leg Raise 145 Hip ROM Limitations Hip ROM Limitations Soft Tissue Tightness Ankle and Foot Goniometric Range of Motion Ankle and Foot chelle Dorsiflexion with Knee Flexed 0 Ankle and Foot ROM Limitations ROM Limitations Soft Tissue Tightness PT-OP-M Strength Start: 09/24/22 09:30 Freq: Status: Active Protocol: Document 09/24/22 09:31 [facility] (Rec: 09/24/22 10:22 [facility] [id number]) Trunk Strength Trunk Manual Muscle Testing Flexion 3- Fair- Extension 2+ Poor+ Rotation Left 3- Fair- Rotation Right 3- Fair- Lateral Flexion Left 3- Fair- Lateral Flexion Right 3- Fair- Scapula Strength Scapula Manual Muscle Testing chelle Elevation (C4) 4+ Good+ Adduction 3+ Fair+ Abduction 3 Fair Depression 3+ Fair+ Shoulder Strength Shoulder Manual Muscle Testing Left Flexion 4 Good Extension 4 Good Abduction (C5) 4 Good Adduction 4 Good External Rotation 4 Good Internal Rotation 4 Good Horizontal Abduction 4 Good Horizontal Adduction 4 Good Right Flexion 4 Good Extension 4 Good Abduction (C5) 4 Good Adduction 4 Good External Rotation 4 Good Internal Rotation 4 Good Horizontal Abduction 4 Good Horizontal Adduction 4 Good Elbow/Forearm Strength Elbow and Forearm Manual Muscle Testing Left Flexion (C6) 4 Good Extension (C7) 4 Good Right Comments pain with resisted flex,ab,ER Hip Strength Hip Manual Muscle Testing Left Flexion (L2) 4- Good- Abduction 3- Fair- Adduction 3+ Fair+ Right Flexion (L2) 4- Good- Abduction 2+ Poor+ Adduction 3+ Fair+ Knee Strength Knee Manual Muscle Testing Left Flexion (S2) 4 Good Extension (L3) 4 Good Right Flexion (S2) 4- Good- Extension (L3) 4- Good- Ankle/Foot Strength Ankle and Foot Manual Muscle Testing Left Dorsiflexion (L4) 3+ Fair+ Plantarflexion (S1) 3+ Fair+ Right Dorsiflexion (L4) 3+ Fair+ Plantarflexion (S1) 3+ Fair+ PT-OP-Q Treatments Start: 09/24/22 09:30 Freq: Status: Active Protocol: Document 03/08/23 12:54 [facility] (Rec: 03/08/23 13:50 [facility] [id number]) Cardio Equipment Recumbent Stepper (Sci-Fit) Duration (Minutes) 5 Resistance 1 Seat Position 11 Other UE/LEs Gym Equipment Therapeutic Ball bridge Ball Size/Color 65 cm green Body Position Hooklying Reps/Duration 10x LTR Ball Size/Color 65 cm green Body Position Hooklying Reps/Duration 10x Therapeutic Exercises Supine Exercises quad stretch Reps/Minutes 2x30 Comments legs over the side of the table IT band stretch Reps/Minutes 2x30 Comments manual figure 4 Side bilateral Resistance AROM Reps/Minutes 2x30 Comments good adductor/hip flexor stretch piriformis stretch Side bilateral Reps/Minutes 2x30 Comments manual HC stretch Side bilateral Reps/Minutes 2x30 Comments manual hip flexor stretch Side bilateral Resistance mat table BLEs off edge ( perpendicular to EOtable) Reps/Minutes 30-60 Comments good feedback hip flexor stretch Sitting Exercises hamstring curl Resistance L1 TB Reps/Minutes 10x row, sh ext Sitting Exercise Name extension Side bilateral Resistance green, therapist anchored Equipment Used sitting on Dynadisc (yellow)/ feet blue disc- 19.5 elevated black mattable Reps/Minutes x20 reps Comments cued feet together, center with little anterior ischial tuberosity resisted trunk rotation Sitting Exercise Name rotation and pull down (rear facing) Side bilateral Resistance green, therapist anchored Equipment Used sitting on Dynadisc (yellow)/ feet blue disc- 19.5 elevated black mattable Reps/Minutes x15 Comments cued feet together, center with little anterior ischial tuberosity sh ER Side bilateral Resistance Tb #2 Equipment Used seated on black table, blue dynadisc under bottom, yellow under feet Reps/Minutes 8 reps, 5 SH x5 reps Comments cued palm up good slow pacing Gait Training Gait Activity FWW Description begin&end of treatment Device Used FWW, w/c trailing by PT AIde Level of Assistance CGA Surface carpet/tile hallway Distance/Duration 62 ft Treatment Focus safety, activity tolerance, posture Comments 1 standing rest breaks for UE' s, had to discontinue to to right UE pain. Manual Therapy Treatment Soft Tissue Mobilization right rhomboids Mobilization Type Strumming,Sustained Pressure Intensity/Depth mod Body Position Sitting Comments instruction in use of Theracane PT-OP-T Assessment and Plan Start: 09/24/22 09:30 Freq: Status: Active Protocol: Document 03/08/23 12:54 [facility] (Rec: 03/08/23 13:50 [facility] [id number]) Physical Therapy Assessment Goals Three Impairment pain right shoulder and low back Impairment diffiuculty performing ADL's due to pain and pain in right shoulder limits gait due to heavy use of walker [facility] Goal (LTG) Patient to report at least 50% decrease in pain with all usual activities and be independent with HEP for purposes of core stab, shoulder strengthening and stab 12/24/22: patient reported decrease in shoulder pain during vacation with not having to wheel herself (used power w/c), but has increased since starting to wheel again. Dec c/o LBP. Goal progress 02/18/23: reports decrease in shoulder pain to 0-4/10. Hadn 't been having back pain until exacerbation 2 weeks ago which appears QL. LTG Duration 05/26/23 One Impairment gait dysfunction Impairment 2 min walk test 127 ft, not able to tolerate 6 min walk test due to fatigue UE's from supporting body on walker and LE fatigue requiring 2 brief standing breaks, needing to stop at 2 min Short Term Goal (STG) Improve 2 min walk test to at least 150 ft as measure of improved functional gait 12/24/22: only able to ambulate 75 ft today and experienced giving way of left knee fci through gait requiring mod assist to correct. 02/18/23: 2 min walk test 68 ft today, limited due to back pain and left leg giving way requiring her to sit STG Duration 04/20/23 [employer] Goal (LTG) Patient able to tolerate 6 min walk test with gait distance of at least 300 ft as measure of improved functional gait LTG Duration 05/26/23 Four Impairment weakness Impairment 5x sit to stand test 15 sec with moderate use of hands moderate core muscle weakness with less than anti-gravity strength Short Term Goal (STG) Patient to be independent and compliant with updated HEP for purposes of LE and trunk muscle strengthening 12/24/22: patient was on vacation 1 month, not as compliant, noting dec functional strength today. HEP has been updated. Goal progress 02/18/23: patient compliant with HEP, ongoing progression STG Duration goal met [facility] Goal (LTG) Patient able to perform 5x sit to stand test in 10 sec as measure of improved functional LE strength and demonstrate 1 grade improvement in trunk muscle strength for improved safety with ADL performance 02/18/23: 10 sec today with 5x sit to stand. 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 Increased challenge on more full Dynadiscs today with good tolerance. Physical Therapy Plan Frequency and Duration Frequency of Treatment 1x/Week Duration of treatment (weeks) 12 Plan of Care Start Date 02/24/23 Plan of Care End Date 05/26/23 Therapeutic Interventions Therapeutic Interventions Balance Training,Home Exercise Program,Manual Therapy, Neuromuscular Re-education, Patient/Caregiver Education, Self-Care/Home Management,Soft Tissue Mobilization,Taping, Therapeutic Activities, Therapeutic Exercises Modalities Cold Pack/Ice Massage,Hot Packs Next Visit Focus/Plan Next Note Type Treatment Note Next Visit Plan Cont Sci-Fit, gait training, balance, flexibility, strengthening progression. Increased standing next session parallel bars.
--- NOTE | 2023-03-10 13:45 | PT.OTN ---
Current Diagnoses Multiple sclerosis (03/10/23) Physical Therapy Treatment Note PT-OP-A Visit Information Start: 09/24/22 09:30 Freq: Status: Active Protocol: Document 03/10/23 13:02 SP (Rec: 03/10/23 13:47 SP [id number]) Out-Patient Physical Therapy Visit Information Visit Information Visit Type Treatment Note Visit Start Time 13:02 Visit Stop Time 13:45 Total Visit Minutes 43 Visit Number 20 Number of REDIPPER Visits 1 Evaluation Information Evaluation Date 09/24/22 Precautions Precautions MS, don't overfatigue, esophageal stenosis PT-OP-B Current Condition Start: 09/24/22 09:30 Freq: Status: Active Protocol: Document 10/05/22 12:33 SAK (Rec: 10/05/22 13:19 SAK [id number]) Current Condition History of Current Condition Onset Date March 2019 Current Complaints weakness due to MS, right shoulder pain, LBP History of Current Condition history MS with worsening weakness, as well as right shoulder pain (patient right handed). Patient has caregiver who assists her primarily with household tasks, HEP, walking. She uses a 4WW to walk short diestances (approx 30 feet) in the home, manual w /c for community mobility. No recent falls, but has history of falls. Reports was evaluated for power wheelchair recently but was denied. C/o right shoulder pain and tightness especially with reaching and propelling manual w/c. Well known to this PT for both land and aquatic- based PT. Prior Treatments and Tests prior PT; land and aquatic Future Testing and Treatments Planned nothing planned yet Treatment Goals Patient/Caregiver Goals improve core strength, decrease right shoulder pain, improve gait and balance PT-OP-C Subjective Start: 09/24/22 09:30 Freq: Status: Active Protocol: Document 03/10/23 13:02 SP (Rec: 03/10/23 13:47 SP [id number]) OP-PT Subjective Patient Comments Patient Comments Pt reports R shoulder decreased pain since last tx. PT-OP-D Balance Start: 09/24/22 09:30 Freq: Status: Active Protocol: Document 09/24/22 09:06 SAK (Rec: 09/28/22 11:39 SAK [id number]) Tinetti Balance Assessment Sitting Balance Sitting Balance Steady, safe Standing Balance Immediate Standing Balance Steady with support Turning Step Pattern Turning 360 Degrees Discontinuous steps Sitting Down Sitting Down Uses arms or unsteady Gait and Step Initiation of Gait Hesitancy, mult. attempts Right Foot Step Length Does not pass stance ft. Right Foot Step Height Does not clear floor Left Foot Step Length Does not pass stance foot Left Foot Step Height Does not clear floor Step Description Step Symmetry Step length appears equal Step Continuity Stopping or discontinuity Gait Description Path Description Mild/moderate deviation Trunk Description Marked sway or uses aide Walking Stance Heels apart Scoring and Interpretation Tinetti Composite Score (points) 5 PT-OP-E Functional Tests Start: 09/24/22 09:30 Freq: Status: Active Protocol: Document 09/24/22 09:06 [facility] (Rec: 09/28/22 11:39 [facility] [id number]) Functional Tests 2 Minute Walk Test Distance 127 Device Used 4WW PT-OP-G Mobility & Gait Start: 09/24/22 09:30 Freq: Status: Active Protocol: Document 09/24/22 09:06 [facility] (Rec: 09/28/22 11:39 [facility] [id number]) OP Mobility Evaluation Bed Mobility Supine to and from Sit indep Transfers Bed to Chair Transfers indep Car Transfers assisted Floor Transfers not performed OP Gait Assessment Gait Gait Assistance Required: Minimum Assistance Distance (Feet) 127 Assistive Devices Assistive Device Gait Belt,Front Wheeled Walker Orthotic/Prosthetic Devices or Brace: No Gait Deviations General Gait Pattern Decreased Stride Length, Decreased Feet Clearance, Flexed Trunk Factors Limiting Gait Function Factors Limiting Gait Function Abnormal Tonal Influences, Decreased Activity Tolerance, Decreased Strength,Pain Stair Climbing Evaluation Comments Stair Climbing Comments unable PT-OP-H Neuro Start: 09/24/22 09:30 Freq: Status: Active Protocol: Document 09/24/22 09:06 [facility] (Rec: 09/28/22 11:39 [facility] [id number]) Sensation Evaluation Gross Sensation Gross Sensation Left LE Impaired,Right LE Impaired,Trunk Impaired PT-OP-J Posture/Palpation/Skin Start: 09/24/22 09:30 Freq: Status: Active Protocol: Document 09/24/22 09:06 [facility] (Rec: 09/28/22 11:39 [facility] [id number]) Posture Evaluation Position Sitting Head/C-Spine Posture Forward Head Shoulder Posture (L) Rounded,(R) Rounded Shoulder Subluxation Position (L) Anterior,(R) Anterior Scapula Posture (L) Protracted,(R) Protracted Arm Posture (L) Internally Rotated,(R) Internally Rotated PT-OP-K Range of Motion Start: 09/24/22 09:30 Freq: Status: Active Protocol: Document 09/24/22 09:06 [facility] (Rec: 09/28/22 11:39 [facility] [id number]) Hip Goniometric Range of Motion Hip chelle Straight Leg Raise 145 Hip ROM Limitations Hip ROM Limitations Soft Tissue Tightness Ankle and Foot Goniometric Range of Motion Ankle and Foot chelle Dorsiflexion with Knee Flexed 0 Ankle and Foot ROM Limitations ROM Limitations Soft Tissue Tightness PT-OP-M Strength Start: 09/24/22 09:30 Freq: Status: Active Protocol: Document 09/24/22 09:31 [facility] (Rec: 09/24/22 10:22 [facility] [id number]) Trunk Strength Trunk Manual Muscle Testing Flexion 3- Fair- Extension 2+ Poor+ Rotation Left 3- Fair- Rotation Right 3- Fair- Lateral Flexion Left 3- Fair- Lateral Flexion Right 3- Fair- Scapula Strength Scapula Manual Muscle Testing chelle Elevation (C4) 4+ Good+ Adduction 3+ Fair+ Abduction 3 Fair Depression 3+ Fair+ Shoulder Strength Shoulder Manual Muscle Testing Left Flexion 4 Good Extension 4 Good Abduction (C5) 4 Good Adduction 4 Good External Rotation 4 Good Internal Rotation 4 Good Horizontal Abduction 4 Good Horizontal Adduction 4 Good Right Flexion 4 Good Extension 4 Good Abduction (C5) 4 Good Adduction 4 Good External Rotation 4 Good Internal Rotation 4 Good Horizontal Abduction 4 Good Horizontal Adduction 4 Good Elbow/Forearm Strength Elbow and Forearm Manual Muscle Testing Left Flexion (C6) 4 Good Extension (C7) 4 Good Right Comments pain with resisted flex,ab,ER Hip Strength Hip Manual Muscle Testing Left Flexion (L2) 4- Good- Abduction 3- Fair- Adduction 3+ Fair+ Right Flexion (L2) 4- Good- Abduction 2+ Poor+ Adduction 3+ Fair+ Knee Strength Knee Manual Muscle Testing Left Flexion (S2) 4 Good Extension (L3) 4 Good Right Flexion (S2) 4- Good- Extension (L3) 4- Good- Ankle/Foot Strength Ankle and Foot Manual Muscle Testing Left Dorsiflexion (L4) 3+ Fair+ Plantarflexion (S1) 3+ Fair+ Right Dorsiflexion (L4) 3+ Fair+ Plantarflexion (S1) 3+ Fair+ PT-OP-Q Treatments Start: 09/24/22 09:30 Freq: Status: Active Protocol: Document 03/10/23 13:02 SP (Rec: 03/10/23 13:47 SP [id number]) Cardio Equipment Recumbent Stepper (Sci-Fit) Duration (Minutes) 7 Resistance 1 Seat Position 11 Other UE/LEs- 54-60 RPMs Gym Equipment Therapeutic Ball bridge Ball Size/Color 55 cm green Body Position Hooklying Reps/Duration 10x LTR Ball Size/Color 55 cm green Body Position Hooklying Reps/Duration 10x Therapeutic Exercises Supine Exercises figure 4 Side bilateral Resistance AROM Reps/Minutes 60 Comments good adductor/hip flexor stretch piriformis stretch Side bilateral Reps/Minutes 60 Comments manual HC stretch Side bilateral Reps/Minutes 60 Comments manual Sitting Exercises hamstring curl Resistance L3 TB Reps/Minutes 10x Comments cued pull back fully LAQ Side bilateral Resistance #4 leg wt Reps/Minutes 2x10 Comments target to kick to, R slight weaker than L row, sh ext Sitting Exercise Name extension Side bilateral Resistance green, therapist anchored Equipment Used sitting on Dynadisc (yellow)/ feet blue disc- 19.5 elevated black mattable Reps/Minutes x20 reps Comments cued feet together, center with little anterior ischial tuberosity resisted trunk rotation Sitting Exercise Name rotation and pull down (rear facing) Side bilateral Resistance green, therapist anchored Equipment Used sitting on Dynadisc (yellow)/ feet blue disc- 19.5 elevated black mattable Reps/Minutes x15 Comments cued feet together, center with little anterior ischial tuberosity Gait Training Gait Activity //bars Description side stepping //bars Treatment Focus 10 ft x2 seated rest between lengths FWW Description begin&end of treatment Device Used FWW, w/c trailing by PT AIde Level of Assistance CGA Surface carpet/tile hallway Distance/Duration 70 ft Treatment Focus safety, activity tolerance, posture Comments 1 standing rest breaks for UE' s, had to discontinue to to right UE pain. PT-OP-T Assessment and Plan Start: 09/24/22 09:30 Freq: Status: Active Protocol: Document 03/10/23 13:02 SP (Rec: 03/10/23 13:47 SP [id number]) Physical Therapy Assessment Goals Three Impairment pain right shoulder and low back Impairment diffiuculty performing ADL's due to pain and pain in right shoulder limits gait due to heavy use of walker Fdc Goal (LTG) Patient to report at least 50% decrease in pain with all usual activities and be independent with HEP for purposes of core stab, shoulder strengthening and stab 12/24/22: patient reported decrease in shoulder pain during vacation with not having to wheel herself (used power w/c), but has increased since starting to wheel again. Dec c/o LBP. Goal progress 02/18/23: reports decrease in shoulder pain to 0-4/10. Hadn 't been having back pain until exacerbation 2 weeks ago which appears QL. LTG Duration 05/26/23 One Impairment gait dysfunction Impairment 2 min walk test 127 ft, not able to tolerate 6 min walk test due to fatigue UE's from supporting body on walker and LE fatigue requiring 2 brief standing breaks, needing to stop at 2 min Short Term Goal (STG) Improve 2 min walk test to at least 150 ft as measure of improved functional gait 12/24/22: only able to ambulate 75 ft today and experienced giving way of left knee long-term through gait requiring mod assist to correct. 02/18/23: 2 min walk test 68 ft today, limited due to back pain and left leg giving way requiring her to sit STG Duration 04/20/23 Fdc Goal (LTG) Patient able to tolerate 6 min walk test with gait distance of at least 300 ft as measure of improved functional gait LTG Duration 05/26/23 Four Impairment weakness Impairment 5x sit to stand test 15 sec with moderate use of hands moderate core muscle weakness with less than anti-gravity strength Short Term Goal (STG) Patient to be independent and compliant with updated HEP for purposes of LE and trunk muscle strengthening 12/24/22: patient was on vacation 1 month, not as compliant, noting dec functional strength today. HEP has been updated. Goal progress 02/18/23: patient compliant with HEP, ongoing progression STG Duration goal met Fdc Goal (LTG) Patient able to perform 5x sit to stand test in 10 sec as measure of improved functional LE strength and demonstrate 1 grade improvement in trunk muscle strength for improved safety with ADL performance 02/18/23: 10 sec today with 5x sit to stand. Noting improved functional core strength, good goal progress LTG Duration 05/26/23 Two Impairment balance dysfunction Impairment Tinetti gait and balance assessment 11/16 indicating patient at high risk for falls static standing 44 sec without holding on Short Term Goal (STG) Patient to be independent and compliant with gait and balance HEP 12/24/22: as above not as compliant to HEP and not ambulating while on vacation 02/18/23: 41 sec standing, limited by back pain STG Duration 04/20/23 Supplies Packer Goal (LTG) Improve Tinetti gait and balance assessment score to moderate fall risk range to improve safety in the home and community improve static standing balance to at least 60 sec LTG Duration 05/26/23 Assessment Summary Assessment Pt good effort to more challenged uneven seated dynadiscs ther ex this tx. Improved tolerance additional standing side stepping in// bars end of tx today. She was able to increase endurance on bike to 7 min pre ther ex and gait. Physical Therapy Plan Frequency and Duration Frequency of Treatment 1x/Week Duration of treatment (weeks) 12 Plan of Care Start Date 02/24/23 Plan of Care End Date 05/26/23 Therapeutic Interventions Therapeutic Interventions Balance Training,Home Exercise Program,Manual Therapy, Neuromuscular Re-education, Patient/Caregiver Education, Self-Care/Home Management,Soft Tissue Mobilization,Taping, Therapeutic Activities, Therapeutic Exercises Modalities Cold Pack/Ice Massage,Hot Packs Next Visit Focus/Plan Next Note Type Treatment Note Next Visit Plan Cont Sci-Fit, gait training, balance, flexibility, strengthening progression. Increased standing next session parallel bars.
--- NOTE | 2023-03-17 09:43 | PT.OTN ---
Current Diagnoses Multiple sclerosis (03/17/23) Physical Therapy Treatment Note PT-OP-A Visit Information Start: 09/24/22 09:30 Freq: Status: Active Protocol: Document 03/17/23 09:04 SP (Rec: 03/17/23 09:50 SP [id number]) Out-Patient Physical Therapy Visit Information Visit Information Visit Type Treatment Note Visit Note 05/29 post PN Visit Start Time 09:04 Visit Stop Time 09:43 Total Visit Minutes 39 Visit Number 21 Number of YIELD CLERK Visits 2 Evaluation Information Evaluation Date 09/24/22 Precautions Precautions MS, don't overfatigue, esophageal stenosis PT-OP-B Current Condition Start: 09/24/22 09:30 Freq: Status: Active Protocol: Document 10/05/22 12:33 SAK (Rec: 10/05/22 13:19 SAK [id number]) Current Condition History of Current Condition Onset Date March 2019 Current Complaints weakness due to MS, right shoulder pain, LBP History of Current Condition history MS with worsening weakness, as well as right shoulder pain (patient right handed). Patient has caregiver who assists her primarily with household tasks, HEP, walking. She uses a 4WW to walk short diestances (approx 30 feet) in the home, manual w /c for community mobility. No recent falls, but has history of falls. Reports was evaluated for power wheelchair recently but was denied. C/o right shoulder pain and tightness especially with reaching and propelling manual w/c. Well known to this PT for both land and aquatic- based PT. Prior Treatments and Tests prior PT; land and aquatic Future Testing and Treatments Planned nothing planned yet Treatment Goals Patient/Caregiver Goals improve core strength, decrease right shoulder pain, improve gait and balance PT-OP-C Subjective Start: 09/24/22 09:30 Freq: Status: Active Protocol: Document 03/17/23 09:04 SP (Rec: 03/17/23 09:50 SP [id number]) OP-PT Subjective Patient Comments Patient Comments Pt reported abdominals good soreness after last tx. PT-OP-D Balance Start: 09/24/22 09:30 Freq: Status: Active Protocol: Document 09/24/22 09:06 SAK (Rec: 09/28/22 11:39 SAK [id number]) Tinetti Balance Assessment Sitting Balance Sitting Balance Steady, safe Standing Balance Immediate Standing Balance Steady with support Turning Step Pattern Turning 360 Degrees Discontinuous steps Sitting Down Sitting Down Uses arms or unsteady Gait and Step Initiation of Gait Hesitancy, mult. attempts Right Foot Step Length Does not pass stance ft. Right Foot Step Height Does not clear floor Left Foot Step Length Does not pass stance foot Left Foot Step Height Does not clear floor Step Description Step Symmetry Step length appears equal Step Continuity Stopping or discontinuity Gait Description Path Description Mild/moderate deviation Trunk Description Marked sway or uses aide Walking Stance Heels apart Scoring and Interpretation Tinetti Composite Score (points) 5 PT-OP-E Functional Tests Start: 09/24/22 09:30 Freq: Status: Active Protocol: Document 09/24/22 09:06 [facility] (Rec: 09/28/22 11:39 [facility] [id number]) Functional Tests 2 Minute Walk Test Distance 127 Device Used 4WW PT-OP-G Mobility & Gait Start: 09/24/22 09:30 Freq: Status: Active Protocol: Document 09/24/22 09:06 [facility] (Rec: 09/28/22 11:39 [facility] [id number]) OP Mobility Evaluation Bed Mobility Supine to and from Sit indep Transfers Bed to Chair Transfers indep Car Transfers assisted Floor Transfers not performed OP Gait Assessment Gait Gait Assistance Required: Minimum Assistance Distance (Feet) 127 Assistive Devices Assistive Device Gait Belt,Front Wheeled Walker Orthotic/Prosthetic Devices or Brace: No Gait Deviations General Gait Pattern Decreased Stride Length, Decreased Feet Clearance, Flexed Trunk Factors Limiting Gait Function Factors Limiting Gait Function Abnormal Tonal Influences, Decreased Activity Tolerance, Decreased Strength,Pain Stair Climbing Evaluation Comments Stair Climbing Comments unable PT-OP-H Neuro Start: 09/24/22 09:30 Freq: Status: Active Protocol: Document 09/24/22 09:06 [facility] (Rec: 09/28/22 11:39 [facility] [id number]) Sensation Evaluation Gross Sensation Gross Sensation Left LE Impaired,Right LE Impaired,Trunk Impaired PT-OP-J Posture/Palpation/Skin Start: 09/24/22 09:30 Freq: Status: Active Protocol: Document 09/24/22 09:06 [facility] (Rec: 09/28/22 11:39 [facility] [id number]) Posture Evaluation Position Sitting Head/C-Spine Posture Forward Head Shoulder Posture (L) Rounded,(R) Rounded Shoulder Subluxation Position (L) Anterior,(R) Anterior Scapula Posture (L) Protracted,(R) Protracted Arm Posture (L) Internally Rotated,(R) Internally Rotated PT-OP-K Range of Motion Start: 09/24/22 09:30 Freq: Status: Active Protocol: Document 09/24/22 09:06 [facility] (Rec: 09/28/22 11:39 [facility] [id number]) Hip Goniometric Range of Motion Hip chelle Straight Leg Raise 145 Hip ROM Limitations Hip ROM Limitations Soft Tissue Tightness Ankle and Foot Goniometric Range of Motion Ankle and Foot chelle Dorsiflexion with Knee Flexed 0 Ankle and Foot ROM Limitations ROM Limitations Soft Tissue Tightness PT-OP-M Strength Start: 09/24/22 09:30 Freq: Status: Active Protocol: Document 09/24/22 09:31 [facility] (Rec: 09/24/22 10:22 [facility] [id number]) Trunk Strength Trunk Manual Muscle Testing Flexion 3- Fair- Extension 2+ Poor+ Rotation Left 3- Fair- Rotation Right 3- Fair- Lateral Flexion Left 3- Fair- Lateral Flexion Right 3- Fair- Scapula Strength Scapula Manual Muscle Testing chelle Elevation (C4) 4+ Good+ Adduction 3+ Fair+ Abduction 3 Fair Depression 3+ Fair+ Shoulder Strength Shoulder Manual Muscle Testing Left Flexion 4 Good Extension 4 Good Abduction (C5) 4 Good Adduction 4 Good External Rotation 4 Good Internal Rotation 4 Good Horizontal Abduction 4 Good Horizontal Adduction 4 Good Right Flexion 4 Good Extension 4 Good Abduction (C5) 4 Good Adduction 4 Good External Rotation 4 Good Internal Rotation 4 Good Horizontal Abduction 4 Good Horizontal Adduction 4 Good Elbow/Forearm Strength Elbow and Forearm Manual Muscle Testing Left Flexion (C6) 4 Good Extension (C7) 4 Good Right Comments pain with resisted flex,ab,ER Hip Strength Hip Manual Muscle Testing Left Flexion (L2) 4- Good- Abduction 3- Fair- Adduction 3+ Fair+ Right Flexion (L2) 4- Good- Abduction 2+ Poor+ Adduction 3+ Fair+ Knee Strength Knee Manual Muscle Testing Left Flexion (S2) 4 Good Extension (L3) 4 Good Right Flexion (S2) 4- Good- Extension (L3) 4- Good- Ankle/Foot Strength Ankle and Foot Manual Muscle Testing Left Dorsiflexion (L4) 3+ Fair+ Plantarflexion (S1) 3+ Fair+ Right Dorsiflexion (L4) 3+ Fair+ Plantarflexion (S1) 3+ Fair+ PT-OP-Q Treatments Start: 09/24/22 09:30 Freq: Status: Active Protocol: Document 03/17/23 09:04 SP (Rec: 03/17/23 09:50 SP [id number]) Therapeutic Exercises Supine Exercises LTR Side bilateral Resistance 55cm blue ball (YIELD CLERK chair) Reps/Minutes 10 Comments cued slower pacing. Prone Exercises quad/hip flexor stretch Prone Exercise Name quad then hip flexor Side bilateral Resistance manual via therapist Equipment Used pillow under chest pt positions Reps/Minutes 2x30 Comments good feedback stretch Sitting Exercises row, sh ext Sitting Exercise Name extension Side bilateral Resistance green, therapist anchored Equipment Used sitting on Dynadisc (yellow)/ feet blue disc- 19.5 elevated black mattable Reps/Minutes x20 reps Comments cued feet together, center with little anterior ischial tuberosity resisted trunk rotation Sitting Exercise Name rotation and pull down (rear facing) Side bilateral Resistance green, therapist anchored Equipment Used sitting on Dynadisc (yellow)/ feet blue disc- 19.5 elevated black mattable Reps/Minutes x15 Comments cued feet together, center with little anterior ischial tuberosity Gait Training Gait Activity //bars Description side stepping //bars Treatment Focus 10 ft x1 seated rest between lengths FWW Description begin&end of treatment Device Used FWW, w/c trailing by YIELD CLERK (1 person) Level of Assistance CGA Surface carpet/tile hallway Distance/Duration 108 ft (no activity prior, just arrived) Treatment Focus safety, activity tolerance, posture Comments no standing rest breaks for UE 's. BLE weakness by end distance, need to sit. PT-OP-T Assessment and Plan Start: 09/24/22 09:30 Freq: Status: Active Protocol: Document 03/17/23 09:04 SP (Rec: 03/17/23 09:50 SP [id number]) Physical Therapy Assessment Goals Three Impairment pain right shoulder and low back Impairment diffiuculty performing ADL's due to pain and pain in right shoulder limits gait due to heavy use of walker Commercial Production Editor Goal (LTG) Patient to report at least 50% decrease in pain with all usual activities and be independent with HEP for purposes of core stab, shoulder strengthening and stab 12/24/22: patient reported decrease in shoulder pain during vacation with not having to wheel herself (used power w/c), but has increased since starting to wheel again. Dec c/o LBP. Goal progress 02/18/23: reports decrease in shoulder pain to 0-4/10. Hadn 't been having back pain until exacerbation 2 weeks ago which appears QL. LTG Duration 05/26/23 One Impairment gait dysfunction Impairment 2 min walk test 127 ft, not able to tolerate 6 min walk test due to fatigue UE's from supporting body on walker and LE fatigue requiring 2 brief standing breaks, needing to stop at 2 min Short Term Goal (STG) Improve 2 min walk test to at least 150 ft as measure of improved functional gait 12/24/22: only able to ambulate 75 ft today and experienced giving way of left knee residential through gait requiring mod assist to correct. 02/18/23: 2 min walk test 68 ft today, limited due to back pain and left leg giving way requiring her to sit STG Duration 04/20/23 Senior Care Goal (LTG) Patient able to tolerate 6 min walk test with gait distance of at least 300 ft as measure of improved functional gait LTG Duration 05/26/23 Four Impairment weakness Impairment 5x sit to stand test 15 sec with moderate use of hands moderate core muscle weakness with less than anti-gravity strength Short Term Goal (STG) Patient to be independent and compliant with updated HEP for purposes of LE and trunk muscle strengthening 12/24/22: patient was on vacation 1 month, not as compliant, noting dec functional strength today. HEP has been updated. Goal progress 02/18/23: patient compliant with HEP, ongoing progression STG Duration goal met Senior Care Goal (LTG) Patient able to perform 5x sit to stand test in 10 sec as measure of improved functional LE strength and demonstrate 1 grade improvement in trunk muscle strength for improved safety with ADL performance 02/18/23: 10 sec today with 5x sit to stand. Noting improved functional core strength, good goal progress LTG Duration 05/26/23 Two Impairment balance dysfunction Impairment Tinetti gait and balance assessment 11/16 indicating patient at high risk for falls static standing 44 sec without holding on Short Term Goal (STG) Patient to be independent and compliant with gait and balance HEP 12/24/22: as above not as compliant to HEP and not ambulating while on vacation 02/18/23: 41 sec standing, limited by back pain STG Duration 04/20/23 Commercial Production Editor Goal (LTG) Improve Tinetti gait and balance assessment score to moderate fall risk range to improve safety in the home and community improve static standing balance to at least 60 sec LTG Duration 05/26/23 Assessment Summary Assessment Pt good effort with noted little more UE brief contact support for stability core and hip strengthening during balance activity and lateral stepping this tx. Pt was able to increase distance gait beginning tx 1st activity even though just woke up. Physical Therapy Plan Frequency and Duration Frequency of Treatment 1x/Week Duration of treatment (weeks) 12 Plan of Care Start Date 02/24/23 Plan of Care End Date 05/26/23 Therapeutic Interventions Therapeutic Interventions Balance Training,Home Exercise Program,Manual Therapy, Neuromuscular Re-education, Patient/Caregiver Education, Self-Care/Home Management,Soft Tissue Mobilization,Taping, Therapeutic Activities, Therapeutic Exercises Modalities Cold Pack/Ice Massage,Hot Packs Next Visit Focus/Plan Next Note Type Treatment Note Next Visit Plan Cont Sci-Fit, gait training, balance, flexibility, strengthening progression. Increased standing next session parallel bars.
--- NOTE | 2023-03-30 12:07 | PT.OTN ---
Current Diagnoses Multiple sclerosis (03/30/23) Physical Therapy Treatment Note PT-OP-A Visit Information Start: 09/24/22 09:30 Freq: Status: Active Protocol: Document 03/30/23 11:13 SAK (Rec: 03/30/23 12:07 [facility] [id number]) Out-Patient Physical Therapy Visit Information Visit Information Visit Type Treatment Note Visit Note 06/29 post PN Visit Start Time 11:15 Visit Stop Time 11:59 Total Visit Minutes 44 Visit Number 22 Number of [employer]T GLASS SANDER Visits 2 Evaluation Information Evaluation Date 09/24/22 Precautions Precautions MS, don't overfatigue, esophageal stenosis PT-OP-B Current Condition Start: 09/24/22 09:30 Freq: Status: Active Protocol: Document 10/05/22 12:33 SAK (Rec: 10/05/22 13:19 [facility] [id number]) Current Condition History of Current Condition Onset Date March 2019 Current Complaints weakness due to MS, right shoulder pain, LBP History of Current Condition history MS with worsening weakness, as well as right shoulder pain (patient right handed). Patient has caregiver who assists her primarily with household tasks, HEP, walking. She uses a 4WW to walk short diestances (approx 30 feet) in the home, manual w /c for community mobility. No recent falls, but has history of falls. Reports was evaluated for power wheelchair recently but was denied. C/o right shoulder pain and tightness especially with reaching and propelling manual w/c. Well known to this PT for both land and aquatic- based PT. Prior Treatments and Tests prior PT; land and aquatic Future Testing and Treatments Planned nothing planned yet Treatment Goals Patient/Caregiver Goals improve core strength, decrease right shoulder pain, improve gait and balance PT-OP-C Subjective Start: 09/24/22 09:30 Freq: Status: Active Protocol: Document 03/30/23 11:13 SAK (Rec: 03/30/23 12:07 [facility] [id number]) OP-PT Subjective Patient Comments Patient Comments Doing more standing at home, needs help for walking but caregiver helped x 1 70 ft. PT-OP-D Balance Start: 09/24/22 09:30 Freq: Status: Active Protocol: Document 09/24/22 09:06 SAK (Rec: 09/28/22 11:39 [facility] [id number]) Tinetti Balance Assessment Sitting Balance Sitting Balance Steady, safe Standing Balance Immediate Standing Balance Steady with support Turning Step Pattern Turning 360 Degrees Discontinuous steps Sitting Down Sitting Down Uses arms or unsteady Gait and Step Initiation of Gait Hesitancy, mult. attempts Right Foot Step Length Does not pass stance ft. Right Foot Step Height Does not clear floor Left Foot Step Length Does not pass stance foot Left Foot Step Height Does not clear floor Step Description Step Symmetry Step length appears equal Step Continuity Stopping or discontinuity Gait Description Path Description Mild/moderate deviation Trunk Description Marked sway or uses aide Walking Stance Heels apart Scoring and Interpretation Tinetti Composite Score (points) 5 PT-OP-E Functional Tests Start: 09/24/22 09:30 Freq: Status: Active Protocol: Document 09/24/22 09:06 [facility] (Rec: 09/28/22 11:39 [facility] [id number]) Functional Tests 2 Minute Walk Test Distance 127 Device Used 4WW PT-OP-G Mobility & Gait Start: 09/24/22 09:30 Freq: Status: Active Protocol: Document 09/24/22 09:06 [facility] (Rec: 09/28/22 11:39 [facility] [id number]) OP Mobility Evaluation Bed Mobility Supine to and from Sit indep Transfers Bed to Chair Transfers indep Car Transfers assisted Floor Transfers not performed OP Gait Assessment Gait Gait Assistance Required: Minimum Assistance Distance (Feet) 127 Assistive Devices Assistive Device Gait Belt,Front Wheeled Walker Orthotic/Prosthetic Devices or Brace: No Gait Deviations General Gait Pattern Decreased Stride Length, Decreased Feet Clearance, Flexed Trunk Factors Limiting Gait Function Factors Limiting Gait Function Abnormal Tonal Influences, Decreased Activity Tolerance, Decreased Strength,Pain Stair Climbing Evaluation Comments Stair Climbing Comments unable PT-OP-H Neuro Start: 09/24/22 09:30 Freq: Status: Active Protocol: Document 09/24/22 09:06 [facility] (Rec: 09/28/22 11:39 [facility] [id number]) Sensation Evaluation Gross Sensation Gross Sensation Left LE Impaired,Right LE Impaired,Trunk Impaired PT-OP-J Posture/Palpation/Skin Start: 09/24/22 09:30 Freq: Status: Active Protocol: Document 09/24/22 09:06 [facility] (Rec: 09/28/22 11:39 [facility] [id number]) Posture Evaluation Position Sitting Head/C-Spine Posture Forward Head Shoulder Posture (L) Rounded,(R) Rounded Shoulder Subluxation Position (L) Anterior,(R) Anterior Scapula Posture (L) Protracted,(R) Protracted Arm Posture (L) Internally Rotated,(R) Internally Rotated PT-OP-K Range of Motion Start: 09/24/22 09:30 Freq: Status: Active Protocol: Document 09/24/22 09:06 [facility] (Rec: 09/28/22 11:39 [facility] [id number]) Hip Goniometric Range of Motion Hip chelle Straight Leg Raise 145 Hip ROM Limitations Hip ROM Limitations Soft Tissue Tightness Ankle and Foot Goniometric Range of Motion Ankle and Foot chelle Dorsiflexion with Knee Flexed 0 Ankle and Foot ROM Limitations ROM Limitations Soft Tissue Tightness PT-OP-M Strength Start: 09/24/22 09:30 Freq: Status: Active Protocol: Document 09/24/22 09:31 [facility] (Rec: 09/24/22 10:22 [facility] [id number]) Trunk Strength Trunk Manual Muscle Testing Flexion 3- Fair- Extension 2+ Poor+ Rotation Left 3- Fair- Rotation Right 3- Fair- Lateral Flexion Left 3- Fair- Lateral Flexion Right 3- Fair- Scapula Strength Scapula Manual Muscle Testing chelle Elevation (C4) 4+ Good+ Adduction 3+ Fair+ Abduction 3 Fair Depression 3+ Fair+ Shoulder Strength Shoulder Manual Muscle Testing Left Flexion 4 Good Extension 4 Good Abduction (C5) 4 Good Adduction 4 Good External Rotation 4 Good Internal Rotation 4 Good Horizontal Abduction 4 Good Horizontal Adduction 4 Good Right Flexion 4 Good Extension 4 Good Abduction (C5) 4 Good Adduction 4 Good External Rotation 4 Good Internal Rotation 4 Good Horizontal Abduction 4 Good Horizontal Adduction 4 Good Elbow/Forearm Strength Elbow and Forearm Manual Muscle Testing Left Flexion (C6) 4 Good Extension (C7) 4 Good Right Comments pain with resisted flex,ab,ER Hip Strength Hip Manual Muscle Testing Left Flexion (L2) 4- Good- Abduction 3- Fair- Adduction 3+ Fair+ Right Flexion (L2) 4- Good- Abduction 2+ Poor+ Adduction 3+ Fair+ Knee Strength Knee Manual Muscle Testing Left Flexion (S2) 4 Good Extension (L3) 4 Good Right Flexion (S2) 4- Good- Extension (L3) 4- Good- Ankle/Foot Strength Ankle and Foot Manual Muscle Testing Left Dorsiflexion (L4) 3+ Fair+ Plantarflexion (S1) 3+ Fair+ Right Dorsiflexion (L4) 3+ Fair+ Plantarflexion (S1) 3+ Fair+ PT-OP-Q Treatments Start: 09/24/22 09:30 Freq: Status: Active Protocol: Document 03/30/23 11:13 [facility] (Rec: 03/30/23 12:07 [facility] [id number]) Cardio Equipment Recumbent Stepper (Sci-Fit) Duration (Minutes) 5 Resistance 1 Seat Position 11 Other UE/LEs- 54-60 RPMs Therapeutic Exercises Supine Exercises LTR Supine Exercise Name AROM, then kamran Side bilateral Resistance 65 cm ball Reps/Minutes 10, 5x Comments cued slower pacing. Prone Exercises quad/hip flexor stretch Prone Exercise Name quad then hip flexor Side bilateral Resistance manual via therapist Equipment Used pillow under chest pt positions Reps/Minutes 2x30 Comments good feedback stretch Sitting Exercises row, sh ext Sitting Exercise Name extension Side bilateral Resistance L2 TB, therapist anchored Equipment Used sitting on Dynadisc (yellow)/ feet blue disc- 19.5 elevated black mattable Reps/Minutes x20 reps Comments cued feet together, center with little anterior ischial tuberosity resisted trunk rotation Sitting Exercise Name rotation and pull down (rear facing) Side bilateral Resistance L2 TB, therapist anchored Equipment Used sitting on Dynadisc (yellow)/ feet blue disc- 19.5 elevated black mattable Reps/Minutes x15 Comments cued feet together, center with little anterior ischial tuberosity sh ER Side bilateral Resistance Tb #1 Equipment Used seated on black table, blue dynadisc under bottom, yellow under feet Reps/Minutes 8 reps, 5 SH x5 reps Comments cued palm up good slow pacing Gait Training Gait Activity FWW Description begin&end of treatment Device Used FWW, w/c trailing by [employer]T [employer]ASS SANDER (1 person) Level of Assistance CGA Surface carpet/tile hallway Distance/Duration 75 ft, 14 ft, 25 ft (no activity prior, just arrived) Treatment Focus safety, activity tolerance, posture Comments no standing rest breaks for UE 's. BLE weakness by end distance, need to sit. PT-OP-T Assessment and Plan Start: 09/24/22 09:30 Freq: Status: Active Protocol: Document 03/30/23 11:13 [facility] (Rec: 03/30/23 12:07 [facility] [id number]) Physical Therapy Assessment Goals Three Impairment pain right shoulder and low back Impairment diffiuculty performing ADL's due to pain and pain in right shoulder limits gait due to heavy use of walker Mcc Goal (LTG) Patient to report at least 50% decrease in pain with all usual activities and be independent with HEP for purposes of core stab, shoulder strengthening and stab 12/24/22: patient reported decrease in shoulder pain during vacation with not having to wheel herself (used power w/c), but has increased since starting to wheel again. Dec c/o LBP. Goal progress 02/18/23: reports decrease in shoulder pain to 0-4/10. Hadn 't been having back pain until exacerbation 2 weeks ago which appears QL. LTG Duration 05/26/23 One Impairment gait dysfunction Impairment 2 min walk test 127 ft, not able to tolerate 6 min walk test due to fatigue UE's from supporting body on walker and LE fatigue requiring 2 brief standing breaks, needing to stop at 2 min Short Term Goal (STG) Improve 2 min walk test to at least 150 ft as measure of improved functional gait 12/24/22: only able to ambulate 75 ft today and experienced giving way of left knee correction through gait requiring mod assist to correct. 02/18/23: 2 min walk test 68 ft today, limited due to back pain and left leg giving way requiring her to sit STG Duration 04/20/23 [employer]asing [employer] Goal (LTG) Patient able to tolerate 6 min walk test with gait distance of at least 300 ft as measure of improved functional gait LTG Duration 05/26/23 Four Impairment weakness Impairment 5x sit to stand test 15 sec with moderate use of hands moderate core muscle weakness with less than anti-gravity strength Short Term Goal (STG) Patient to be independent and compliant with updated HEP for purposes of LE and trunk muscle strengthening 12/24/22: patient was on vacation 1 month, not as compliant, noting dec functional strength today. HEP has been updated. Goal progress 02/18/23: patient compliant with HEP, ongoing progression STG Duration goal met Mcc Goal (LTG) Patient able to perform 5x sit to stand test in 10 sec as measure of improved functional LE strength and demonstrate 1 grade improvement in trunk muscle strength for improved safety with ADL performance 02/18/23: 10 sec today with 5x sit to stand. Noting improved functional core strength, good goal progress LTG Duration 05/26/23 Two Impairment balance dysfunction Impairment Tinetti gait and balance assessment 11/16 indicating patient at high risk for falls static standing 44 sec without holding on Short Term Goal (STG) Patient to be independent and compliant with gait and balance HEP 12/24/22: as above not as compliant to HEP and not ambulating while on vacation 02/18/23: 41 sec standing, limited by back pain STG Duration 04/20/23 Purchasing Associate Goal (LTG) Improve Tinetti gait and balance assessment score to moderate fall risk range to improve safety in the home and community improve static standing balance to at least 60 sec LTG Duration 05/26/23 Assessment Summary Assessment Fatigued more quickly with gait today; right LE and chelle UE's from support on walker. More difficulty balance on Dynadisc today. Physical Therapy Plan Frequency and Duration Frequency of Treatment 1x/Week Duration of treatment (weeks) 12 Plan of Care Start Date 02/24/23 Plan of Care End Date 05/26/23 Therapeutic Interventions Therapeutic Interventions Balance Training,Home Exercise Program,Manual Therapy, Neuromuscular Re-education, Patient/Caregiver Education, Self-Care/Home Management,Soft Tissue Mobilization,Taping, Therapeutic Activities, Therapeutic Exercises Modalities Cold Pack/Ice Massage,Hot Packs Next Visit Focus/Plan Next Note Type Treatment Note Next Visit Plan Cont Sci-Fit, gait training, balance, flexibility, strengthening progression. Continue to increase stand ex as tolerated.
--- NOTE | 2023-04-08 13:00 | PT-OP ANOTE ---
cancelled due to weather.
--- NOTE | 2023-04-14 13:45 | PT.OTN ---
Current Diagnoses Multiple sclerosis (04/14/23) Physical Therapy Treatment Note PT-OP-A Visit Information Start: 09/24/22 09:30 Freq: Status: Active Protocol: Document 04/14/23 13:01 SP (Rec: 04/14/23 13:48 SP [id number]) Out-Patient Physical Therapy Visit Information Visit Information Visit Type Treatment Note Visit Note 07/29 post PN Visit Start Time 13:01 Visit Stop Time 13:45 Visit Number 44 Number of PACKER AND CARRY OUT Visits 1 Evaluation Information Evaluation Date 09/24/22 Precautions Precautions MS, don't overfatigue, esophageal stenosis PT-OP-B Current Condition Start: 09/24/22 09:30 Freq: Status: Active Protocol: Document 10/05/22 12:33 SAK (Rec: 10/05/22 13:19 SAK [id number]) Current Condition History of Current Condition Onset Date March 2019 Current Complaints weakness due to MS, right shoulder pain, LBP History of Current Condition history MS with worsening weakness, as well as right shoulder pain (patient right handed). Patient has caregiver who assists her primarily with household tasks, HEP, walking. She uses a 4WW to walk short diestances (approx 30 feet) in the home, manual w /c for community mobility. No recent falls, but has history of falls. Reports was evaluated for power wheelchair recently but was denied. C/o right shoulder pain and tightness especially with reaching and propelling manual w/c. Well known to this PT for both land and aquatic- based PT. Prior Treatments and Tests prior PT; land and aquatic Future Testing and Treatments Planned nothing planned yet Treatment Goals Patient/Caregiver Goals improve core strength, decrease right shoulder pain, improve gait and balance PT-OP-C Subjective Start: 09/24/22 09:30 Freq: Status: Active Protocol: Document 04/14/23 13:01 SP (Rec: 04/14/23 13:48 SP [id number]) OP-PT Subjective Patient Comments Patient Comments Pt reports trying to incorporated more standing at home. PT-OP-D Balance Start: 09/24/22 09:30 Freq: Status: Active Protocol: Document 09/24/22 09:06 SAK (Rec: 09/28/22 11:39 SAK [id number]) Tinetti Balance Assessment Sitting Balance Sitting Balance Steady, safe Standing Balance Immediate Standing Balance Steady with support Turning Step Pattern Turning 360 Degrees Discontinuous steps Sitting Down Sitting Down Uses arms or unsteady Gait and Step Initiation of Gait Hesitancy, mult. attempts Right Foot Step Length Does not pass stance ft. Right Foot Step Height Does not clear floor Left Foot Step Length Does not pass stance foot Left Foot Step Height Does not clear floor Step Description Step Symmetry Step length appears equal Step Continuity Stopping or discontinuity Gait Description Path Description Mild/moderate deviation Trunk Description Marked sway or uses aide Walking Stance Heels apart Scoring and Interpretation Tinetti Composite Score (points) 5 PT-OP-E Functional Tests Start: 09/24/22 09:30 Freq: Status: Active Protocol: Document 09/24/22 09:06 [facility] (Rec: 09/28/22 11:39 [facility] [id number]) Functional Tests 2 Minute Walk Test Distance 127 Device Used 4WW PT-OP-G Mobility & Gait Start: 09/24/22 09:30 Freq: Status: Active Protocol: Document 09/24/22 09:06 [facility] (Rec: 09/28/22 11:39 [facility] [id number]) OP Mobility Evaluation Bed Mobility Supine to and from Sit indep Transfers Bed to Chair Transfers indep Car Transfers assisted Floor Transfers not performed OP Gait Assessment Gait Gait Assistance Required: Minimum Assistance Distance (Feet) 127 Assistive Devices Assistive Device Gait Belt,Front Wheeled Walker Orthotic/Prosthetic Devices or Brace: No Gait Deviations General Gait Pattern Decreased Stride Length, Decreased Feet Clearance, Flexed Trunk Factors Limiting Gait Function Factors Limiting Gait Function Abnormal Tonal Influences, Decreased Activity Tolerance, Decreased Strength,Pain Stair Climbing Evaluation Comments Stair Climbing Comments unable PT-OP-H Neuro Start: 09/24/22 09:30 Freq: Status: Active Protocol: Document 09/24/22 09:06 [facility] (Rec: 09/28/22 11:39 [facility] [id number]) Sensation Evaluation Gross Sensation Gross Sensation Left LE Impaired,Right LE Impaired,Trunk Impaired PT-OP-J Posture/Palpation/Skin Start: 09/24/22 09:30 Freq: Status: Active Protocol: Document 09/24/22 09:06 [facility] (Rec: 09/28/22 11:39 [facility] [id number]) Posture Evaluation Position Sitting Head/C-Spine Posture Forward Head Shoulder Posture (L) Rounded,(R) Rounded Shoulder Subluxation Position (L) Anterior,(R) Anterior Scapula Posture (L) Protracted,(R) Protracted Arm Posture (L) Internally Rotated,(R) Internally Rotated PT-OP-K Range of Motion Start: 09/24/22 09:30 Freq: Status: Active Protocol: Document 09/24/22 09:06 [facility] (Rec: 09/28/22 11:39 [facility] [id number]) Hip Goniometric Range of Motion Hip chelle Straight Leg Raise 145 Hip ROM Limitations Hip ROM Limitations Soft Tissue Tightness Ankle and Foot Goniometric Range of Motion Ankle and Foot chelle Dorsiflexion with Knee Flexed 0 Ankle and Foot ROM Limitations ROM Limitations Soft Tissue Tightness PT-OP-M Strength Start: 09/24/22 09:30 Freq: Status: Active Protocol: Document 09/24/22 09:31 [facility] (Rec: 09/24/22 10:22 [facility] [id number]) Trunk Strength Trunk Manual Muscle Testing Flexion 3- Fair- Extension 2+ Poor+ Rotation Left 3- Fair- Rotation Right 3- Fair- Lateral Flexion Left 3- Fair- Lateral Flexion Right 3- Fair- Scapula Strength Scapula Manual Muscle Testing chelle Elevation (C4) 4+ Good+ Adduction 3+ Fair+ Abduction 3 Fair Depression 3+ Fair+ Shoulder Strength Shoulder Manual Muscle Testing Left Flexion 4 Good Extension 4 Good Abduction (C5) 4 Good Adduction 4 Good External Rotation 4 Good Internal Rotation 4 Good Horizontal Abduction 4 Good Horizontal Adduction 4 Good Right Flexion 4 Good Extension 4 Good Abduction (C5) 4 Good Adduction 4 Good External Rotation 4 Good Internal Rotation 4 Good Horizontal Abduction 4 Good Horizontal Adduction 4 Good Elbow/Forearm Strength Elbow and Forearm Manual Muscle Testing Left Flexion (C6) 4 Good Extension (C7) 4 Good Right Comments pain with resisted flex,ab,ER Hip Strength Hip Manual Muscle Testing Left Flexion (L2) 4- Good- Abduction 3- Fair- Adduction 3+ Fair+ Right Flexion (L2) 4- Good- Abduction 2+ Poor+ Adduction 3+ Fair+ Knee Strength Knee Manual Muscle Testing Left Flexion (S2) 4 Good Extension (L3) 4 Good Right Flexion (S2) 4- Good- Extension (L3) 4- Good- Ankle/Foot Strength Ankle and Foot Manual Muscle Testing Left Dorsiflexion (L4) 3+ Fair+ Plantarflexion (S1) 3+ Fair+ Right Dorsiflexion (L4) 3+ Fair+ Plantarflexion (S1) 3+ Fair+ PT-OP-Q Treatments Start: 09/24/22 09:30 Freq: Status: Active Protocol: Document 04/14/23 13:01 SP (Rec: 04/14/23 13:48 SP [id number]) Therapeutic Exercises Supine Exercises HC stretch Supine Exercise Name added to HEP Side bilateral Equipment Used mesh chair Reps/Minutes 30 Comments Cued scoot front seat, hip hinge, LE front Sitting Exercises trunk flexion Resistance TB #3 Equipment Used sitting on Dynadisc (yellow)/ feet blue disc- mesh cahir Reps/Minutes x15 Comments cued feet together, center with little anterior ischial tuberosity LAQ Side bilateral Resistance #5 leg wt Reps/Minutes 2x10 Comments target to kick to, R slight weaker than L row, sh ext Sitting Exercise Name extension Side bilateral Resistance L3 TB, therapist anchored Equipment Used sitting on Dynadisc (yellow)/ feet blue disc- mesh chair Reps/Minutes x15 reps Comments cued feet together, center with little anterior ischial tuberosity resisted trunk rotation Sitting Exercise Name rotation Side bilateral Resistance L3 TB, therapist anchored Equipment Used sitting on Dynadisc (yellow)/ feet blue disc- mesh cahir Reps/Minutes x15 Comments cued feet together, center with little anterior ischial tuberosity Standing Exercises march Standing Exercise Name sit and standing Resistance 5# leg wt Equipment Used heavy BUEs on//bars Reps/Minutes x10 each Comments Cued TKE standing stance LE Gait Training Gait Activity //bars Description side stepping //bars Treatment Focus 10 ft x1.5 laps seated rest between lengths x2 Comments cued TKE FWW Description begin&end of treatment Device Used FWW, w/c trailing by PACKER AND CARRY OUT (1 person) Level of Assistance CGA Surface carpet/tile hallway Distance/Duration 63 ft, Treatment Focus safety, activity tolerance, posture Comments no standing rest breaks for UE 's. BLE weakness by end distance, need to sit. Neuro Re-Education Treatment Balance Activities uneven surface sitting Details balloon volley Surface mesh chair/blue disc, B ft on yellow disc Equipment dowel +5# wt Reps/Duration 30 sec Comments reports not as challenging as on mat table- DC PT-OP-T Assessment and Plan Start: 09/24/22 09:30 Freq: Status: Active Protocol: Document 04/14/23 13:01 SP (Rec: 04/14/23 13:48 SP [id number]) Physical Therapy Assessment Goals Three Impairment pain right shoulder and low back Impairment diffiuculty performing ADL's due to pain and pain in right shoulder limits gait due to heavy use of walker Mcc Goal (LTG) Patient to report at least 50% decrease in pain with all usual activities and be independent with HEP for purposes of core stab, shoulder strengthening and stab 12/24/22: patient reported decrease in shoulder pain during vacation with not having to wheel herself (used power w/c), but has increased since starting to wheel again. Dec c/o LBP. Goal progress 02/18/23: reports decrease in shoulder pain to 0-4/10. Hadn 't been having back pain until exacerbation 2 weeks ago which appears QL. LTG Duration 05/26/23 One Impairment gait dysfunction Impairment 2 min walk test 127 ft, not able to tolerate 6 min walk test due to fatigue UE's from supporting body on walker and LE fatigue requiring 2 brief standing breaks, needing to stop at 2 min Short Term Goal (STG) Improve 2 min walk test to at least 150 ft as measure of improved functional gait 12/24/22: only able to ambulate 75 ft today and experienced giving way of left knee long-term through gait requiring mod assist to correct. 02/18/23: 2 min walk test 68 ft today, limited due to back pain and left leg giving way requiring her to sit STG Duration 04/20/23 Outpatient Dietitian Goal (LTG) Patient able to tolerate 6 min walk test with gait distance of at least 300 ft as measure of improved functional gait LTG Duration 05/26/23 Four Impairment weakness Impairment 5x sit to stand test 15 sec with moderate use of hands moderate core muscle weakness with less than anti-gravity strength Short Term Goal (STG) Patient to be independent and compliant with updated HEP for purposes of LE and trunk muscle strengthening 12/24/22: patient was on vacation 1 month, not as compliant, noting dec functional strength today. HEP has been updated. Goal progress 02/18/23: patient compliant with HEP, ongoing progression STG Duration goal met Mcc Goal (LTG) Patient able to perform 5x sit to stand test in 10 sec as measure of improved functional LE strength and demonstrate 1 grade improvement in trunk muscle strength for improved safety with ADL performance 02/18/23: 10 sec today with 5x sit to stand. Noting improved functional core strength, good goal progress LTG Duration 05/26/23 Two Impairment balance dysfunction Impairment Tinetti gait and balance assessment 11/16 indicating patient at high risk for falls static standing 44 sec without holding on Short Term Goal (STG) Patient to be independent and compliant with gait and balance HEP 12/24/22: as above not as compliant to HEP and not ambulating while on vacation 02/18/23: 41 sec standing, limited by back pain STG Duration 04/20/23 Outpatient Dietitian Goal (LTG) Improve Tinetti gait and balance assessment score to moderate fall risk range to improve safety in the home and community improve static standing balance to at least 60 sec LTG Duration 05/26/23 Assessment Summary Assessment Pt improved endurance gait short distance in //bars 1.5-2 laps between ther ex and trunk stability activities, tires requiring heavier BUE WB support. Instructed self HS stretch for home in chair, good feedback response, declined HO. Physical Therapy Plan Frequency and Duration Frequency of Treatment 1x/Week Duration of treatment (weeks) 12 Plan of Care Start Date 02/24/23 Plan of Care End Date 05/26/23 Therapeutic Interventions Therapeutic Interventions Balance Training,Home Exercise Program,Manual Therapy, Neuromuscular Re-education, Patient/Caregiver Education, Self-Care/Home Management,Soft Tissue Mobilization,Taping, Therapeutic Activities, Therapeutic Exercises Modalities Cold Pack/Ice Massage,Hot Packs Next Visit Focus/Plan Next Note Type Treatment Note Next Visit Plan Cont Sci-Fit, gait training, balance, flexibility, strengthening progression. Continue to increase stand ex as tolerated.
--- NOTE | 2023-04-21 17:08 | PT.OTN ---
Current Diagnoses Multiple sclerosis (04/21/23) Physical Therapy Treatment Note PT-OP-A Visit Information Start: 09/24/22 09:30 Freq: Status: Active Protocol: Document 04/21/23 13:01 [facility] (Rec: 04/21/23 13:47 [facility] [id number]) Out-Patient Physical Therapy Visit Information Visit Information Visit Type Treatment Note Visit Note 08/29 post PN Visit Start Time 13:00 Visit Stop Time 13:45 Visit Number 45 Number of LOCOMOTIVE SWITCH OPERATOR Visits 1 Evaluation Information Evaluation Date 09/24/22 Precautions Precautions MS, don't overfatigue, esophageal stenosis PT-OP-B Current Condition Start: 09/24/22 09:30 Freq: Status: Active Protocol: Document 10/05/22 12:33 [facility] (Rec: 10/05/22 13:19 [facility] [id number]) Current Condition History of Current Condition Onset Date March 2019 Current Complaints weakness due to MS, right shoulder pain, LBP History of Current Condition history MS with worsening weakness, as well as right shoulder pain (patient right handed). Patient has caregiver who assists her primarily with household tasks, HEP, walking. She uses a 4WW to walk short diestances (approx 30 feet) in the home, manual w /c for community mobility. No recent falls, but has history of falls. Reports was evaluated for power wheelchair recently but was denied. C/o right shoulder pain and tightness especially with reaching and propelling manual w/c. Well known to this PT for both land and aquatic- based PT. 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 attempts Right Foot Step Length Does not pass stance ft. Right Foot Step Height Does not clear floor Left Foot Step Length Does not pass stance foot Left Foot Step Height Does not clear floor Step Description Step Symmetry Step length appears equal Step Continuity Stopping or discontinuity Gait Description Path Description Mild/moderate deviation Trunk Description Marked sway or uses aide Walking Stance Heels apart Scoring and Interpretation Tinetti Composite Score (points) 5 PT-OP-E Functional Tests Start: 09/24/22 09:30 Freq: Status: Active Protocol: Document 09/24/22 09:06 [facility] (Rec: 09/28/22 11:39 [facility] [id number]) Functional Tests 2 Minute Walk Test Distance 127 Device Used 4WW PT-OP-G Mobility & Gait Start: 09/24/22 09:30 Freq: Status: Active Protocol: Document 09/24/22 09:06 [facility] (Rec: 09/28/22 11:39 [facility] [id number]) OP Mobility Evaluation Bed Mobility Supine to and from Sit indep Transfers Bed to Chair Transfers indep Car Transfers assisted Floor Transfers not performed OP Gait Assessment Gait Gait Assistance Required: Minimum Assistance Distance (Feet) 127 Assistive Devices Assistive Device Gait Belt,Front Wheeled Walker Orthotic/Prosthetic Devices or Brace: No Gait Deviations General Gait Pattern Decreased Stride Length, Decreased Feet Clearance, Flexed Trunk Factors Limiting Gait Function Factors Limiting Gait Function Abnormal Tonal Influences, Decreased Activity Tolerance, Decreased Strength,Pain Stair Climbing Evaluation Comments Stair Climbing Comments unable PT-OP-H Neuro Start: 09/24/22 09:30 Freq: Status: Active Protocol: Document 09/24/22 09:06 [facility] (Rec: 09/28/22 11:39 [facility] [id number]) Sensation Evaluation Gross Sensation Gross Sensation Left LE Impaired,Right LE Impaired,Trunk Impaired PT-OP-J Posture/Palpation/Skin Start: 09/24/22 09:30 Freq: Status: Active Protocol: Document 09/24/22 09:06 [facility] (Rec: 09/28/22 11:39 [facility] [id number]) Posture Evaluation Position Sitting Head/C-Spine Posture Forward Head Shoulder Posture (L) Rounded,(R) Rounded Shoulder Subluxation Position (L) Anterior,(R) Anterior Scapula Posture (L) Protracted,(R) Protracted Arm Posture (L) Internally Rotated,(R) Internally Rotated PT-OP-K Range of Motion Start: 09/24/22 09:30 Freq: Status: Active Protocol: Document 09/24/22 09:06 [facility] (Rec: 09/28/22 11:39 [facility] [id number]) Hip Goniometric Range of Motion Hip chelle Straight Leg Raise 145 Hip ROM Limitations Hip ROM Limitations Soft Tissue Tightness Ankle and Foot Goniometric Range of Motion Ankle and Foot chelle Dorsiflexion with Knee Flexed 0 Ankle and Foot ROM Limitations ROM Limitations Soft Tissue Tightness PT-OP-M Strength Start: 09/24/22 09:30 Freq: Status: Active Protocol: Document 09/24/22 09:31 [facility] (Rec: 09/24/22 10:22 [facility] [id number]) Trunk Strength Trunk Manual Muscle Testing Flexion 3- Fair- Extension 2+ Poor+ Rotation Left 3- Fair- Rotation Right 3- Fair- Lateral Flexion Left 3- Fair- Lateral Flexion Right 3- Fair- Scapula Strength Scapula Manual Muscle Testing chelle Elevation (C4) 4+ Good+ Adduction 3+ Fair+ Abduction 3 Fair Depression 3+ Fair+ Shoulder Strength Shoulder Manual Muscle Testing Left Flexion 4 Good Extension 4 Good Abduction (C5) 4 Good Adduction 4 Good External Rotation 4 Good Internal Rotation 4 Good Horizontal Abduction 4 Good Horizontal Adduction 4 Good Right Flexion 4 Good Extension 4 Good Abduction (C5) 4 Good Adduction 4 Good External Rotation 4 Good Internal Rotation 4 Good Horizontal Abduction 4 Good Horizontal Adduction 4 Good Elbow/Forearm Strength Elbow and Forearm Manual Muscle Testing Left Flexion (C6) 4 Good Extension (C7) 4 Good Right Comments pain with resisted flex,ab,ER Hip Strength Hip Manual Muscle Testing Left Flexion (L2) 4- Good- Abduction 3- Fair- Adduction 3+ Fair+ Right Flexion (L2) 4- Good- Abduction 2+ Poor+ Adduction 3+ Fair+ Knee Strength Knee Manual Muscle Testing Left Flexion (S2) 4 Good Extension (L3) 4 Good Right Flexion (S2) 4- Good- Extension (L3) 4- Good- Ankle/Foot Strength Ankle and Foot Manual Muscle Testing Left Dorsiflexion (L4) 3+ Fair+ Plantarflexion (S1) 3+ Fair+ Right Dorsiflexion (L4) 3+ Fair+ Plantarflexion (S1) 3+ Fair+ PT-OP-Q Treatments Start: 09/24/22 09:30 Freq: Status: Active Protocol: Document 04/21/23 13:01 [facility] (Rec: 04/21/23 13:47 [facility] [id number]) Cardio Equipment Recumbent Stepper (Sci-Fit) Duration (Minutes) 5 Resistance 1 Seat Position 11 Other UE/LEs- 54-60 RPMs, 0.52 mi Therapeutic Exercises Supine Exercises quad stretch Reps/Minutes 2x30 Comments legs over the side of the table IT band stretch Reps/Minutes 2x30 Comments manual figure 4 Side bilateral Resistance AROM Reps/Minutes 60 Comments good adductor/hip flexor stretch hip flexor stretch Side bilateral Resistance mat table BLEs off edge ( perpendicular to EOtable) Reps/Minutes 30-60 Comments good feedback hip flexor stretch SKTC Supine Exercise Name SKTC and ER Side bilateral Reps/Minutes 2x30 Comments manual Sitting Exercises lean backs Equipment Used yellow dynadisc under bottom, blue under feet Reps/Minutes 10x LAQ Side bilateral Resistance #5 leg wt 1 set Reps/Minutes 2x10 Comments target to kick to, R slight weaker than L row, sh ext Sitting Exercise Name extension Side bilateral Resistance L3 TB, therapist anchored Equipment Used sitting on Dynadisc (yellow) Reps/Minutes x15 reps Comments cued feet together, center with little anterior ischial tuberosity resisted trunk rotation Sitting Exercise Name rotation Side bilateral Resistance L3 TB, therapist anchored Equipment Used sitting on Dynadisc (yellow)/ feet blue disc- mesh cahir Reps/Minutes x15 Comments cued feet together, center with little anterior ischial tuberosity Standing Exercises sidestepping Resistance 5# leg wt Reps/Minutes 6 ft, rest, 6 ft other direction march Standing Exercise Name sit and standing Resistance 5# leg wt Equipment Used heavy BUEs on//bars Reps/Minutes x10 each Comments Cued TKE standing stance LE Gait Training Gait Activity //bars Description side stepping //bars Treatment Focus 10 ft x1.5 laps seated rest between lengths x2 Comments cued TKE FWW Description begin&end of treatment Device Used FWW, w/c trailing by LOCOMOTIVE SWITCH OPERATOR (1 person) Level of Assistance CGA Surface carpet/tile hallway Distance/Duration 76 ft, Treatment Focus safety, activity tolerance, posture Comments no standing rest breaks for UE 's. BLE weakness by end distance, need to sit. PT-OP-T Assessment and Plan Start: 09/24/22 09:30 Freq: Status: Active Protocol: Document 04/21/23 13:01 [facility] (Rec: 04/21/23 13:47 [facility] [id number]) Physical Therapy Assessment Goals Three Impairment pain right shoulder and low back Impairment diffiuculty performing ADL's due to pain and pain in right shoulder limits gait due to heavy use of walker Sales Project Engineer Goal (LTG) Patient to report at least 50% decrease in pain with all usual activities and be independent with HEP for purposes of core stab, shoulder strengthening and stab 12/24/22: patient reported decrease in shoulder pain during vacation with not having to wheel herself (used power w/c), but has increased since starting to wheel again. Dec c/o LBP. Goal progress 02/18/23: reports decrease in shoulder pain to 0-4/10. Hadn 't been having back pain until exacerbation 2 weeks ago which appears QL. LTG Duration 05/26/23 One Impairment gait dysfunction Impairment 2 min walk test 127 ft, not able to tolerate 6 min walk test due to fatigue UE's from supporting body on walker and LE fatigue requiring 2 brief standing breaks, needing to stop at 2 min Short Term Goal (STG) Improve 2 min walk test to at least 150 ft as measure of improved functional gait 12/24/22: only able to ambulate 75 ft today and experienced giving way of left knee correction through gait requiring mod assist to correct. 02/18/23: 2 min walk test 68 ft today, limited due to back pain and left leg giving way requiring her to sit STG Duration 04/20/23 Sales Project Engineer Goal (LTG) Patient able to tolerate 6 min walk test with gait distance of at least 300 ft as measure of improved functional gait LTG Duration 05/26/23 Four Impairment weakness Impairment 5x sit to stand test 15 sec with moderate use of hands moderate core muscle weakness with less than anti-gravity strength Short Term Goal (STG) Patient to be independent and compliant with updated HEP for purposes of LE and trunk muscle strengthening 12/24/22: patient was on vacation 1 month, not as compliant, noting dec functional strength today. HEP has been updated. Goal progress 02/18/23: patient compliant with HEP, ongoing progression STG Duration goal met Sales Project Engineer Goal (LTG) Patient able to perform 5x sit to stand test in 10 sec as measure of improved functional LE strength and demonstrate 1 grade improvement in trunk muscle strength for improved safety with ADL performance 02/18/23: 10 sec today with 5x sit to stand. Noting improved functional core strength, good goal progress LTG Duration 05/26/23 Two Impairment balance dysfunction Impairment Tinetti gait and balance assessment 11/16 indicating patient at high risk for falls static standing 44 sec without holding on Short Term Goal (STG) Patient to be independent and compliant with gait and balance HEP 12/24/22: as above not as compliant to HEP and not ambulating while on vacation 02/18/23: 41 sec standing, limited by back pain STG Duration 04/20/23 Penitentiary Goal (LTG) Improve Tinetti gait and balance assessment score to moderate fall risk range to improve safety in the home and community improve static standing balance to at least 60 sec LTG Duration 05/26/23 Assessment Summary Assessment Improved gait tolerance today. Seated balance more challenging due to recent increase in inflation level in Dynadiscs. Physical Therapy Plan Frequency and Duration Frequency of Treatment 1x/Week Duration of treatment (weeks) 12 Plan of Care Start Date 02/24/23 Plan of Care End Date 05/26/23 Therapeutic Interventions Therapeutic Interventions Balance Training,Home Exercise Program,Manual Therapy, Neuromuscular Re-education, Patient/Caregiver Education, Self-Care/Home Management,Soft Tissue Mobilization,Taping, Therapeutic Activities, Therapeutic Exercises Modalities Cold Pack/Ice Massage,Hot Packs Next Visit Focus/Plan Next Note Type Treatment Note Next Visit Plan Cont Sci-Fit, gait training, balance, flexibility, strengthening progression. Continue to increase stand ex as tolerated.
--- NOTE | 2023-04-29 13:19 | PT.OTN ---
Current Diagnoses Multiple sclerosis (04/29/23) Physical Therapy Treatment Note PT-OP-A Visit Information Start: 09/24/22 09:30 Freq: Status: Active Protocol: Document 04/29/23 08:11 [facility]AK (Rec: 04/29/23 09:02 [facility] [id number]) Out-Patient Physical Therapy Visit Information Visit Information Visit Type Treatment Note Visit Note 09/28 post PN Visit Start Time 13:00 Visit Stop Time 13:45 Visit Number 45 Number of CARROT BUNCHER Visits 0 Evaluation Information Evaluation Date 09/24/22 Precautions Precautions MS, don't overfatigue, esophageal stenosis PT-OP-B Current Condition Start: 09/24/22 09:30 Freq: Status: Active Protocol: Document 10/05/22 12:33 SAK (Rec: 10/05/22 13:19 SAK [id number]) Current Condition History of Current Condition Onset Date March 2019 Current Complaints weakness due to MS, right shoulder pain, LBP History of Current Condition history MS with worsening weakness, as well as right shoulder pain (patient right handed). Patient has caregiver who assists her primarily with household tasks, HEP, walking. She uses a 4WW to walk short diestances (approx 30 feet) in the home, manual w /c for community mobility. No recent falls, but has history of falls. Reports was evaluated for power wheelchair recently but was denied. C/o right shoulder pain and tightness especially with reaching and propelling manual w/c. Well known to this PT for both land and aquatic- based PT. Prior Treatments and Tests prior PT; land and aquatic Future Testing and Treatments Planned nothing planned yet Treatment Goals Patient/Caregiver Goals improve core strength, decrease right shoulder pain, improve gait and balance PT-OP-C Subjective Start: 09/24/22 09:30 Freq: Status: Active Protocol: Document 04/29/23 08:11 SAK (Rec: 04/29/23 09:02 [facility] [id number]) OP-PT Subjective Patient Comments Patient Comments Tired, very early for her to be up and out of the house. Her aunt is gone so unable to do as much exercise on her own . PT-OP-D Balance Start: 09/24/22 09:30 Freq: Status: Active Protocol: Document 09/24/22 09:06 SAK (Rec: 09/28/22 11:39 [facility]AK [id number]) Tinetti Balance Assessment Sitting Balance Sitting Balance Steady, safe Standing Balance Immediate Standing Balance Steady with support Turning Step Pattern Turning 360 Degrees Discontinuous steps Sitting Down Sitting Down Uses arms or unsteady Gait and Step Initiation of Gait Hesitancy, mult. attempts Right Foot Step Length Does not pass stance ft. Right Foot Step Height Does not clear floor Left Foot Step Length Does not pass stance foot Left Foot Step Height Does not clear floor Step Description Step Symmetry Step length appears equal Step Continuity Stopping or discontinuity Gait Description Path Description Mild/moderate deviation Trunk Description Marked sway or uses aide Walking Stance Heels apart Scoring and Interpretation Tinetti Composite Score (points) 5 PT-OP-E Functional Tests Start: 09/24/22 09:30 Freq: Status: Active Protocol: Document 09/24/22 09:06 [facility] (Rec: 09/28/22 11:39 [facility] [id number]) Functional Tests 2 Minute Walk Test Distance 127 Device Used 4WW PT-OP-G Mobility & Gait Start: 09/24/22 09:30 Freq: Status: Active Protocol: Document 09/24/22 09:06 [facility] (Rec: 09/28/22 11:39 [facility] [id number]) OP Mobility Evaluation Bed Mobility Supine to and from Sit indep Transfers Bed to Chair Transfers indep Car Transfers assisted Floor Transfers not performed OP Gait Assessment Gait Gait Assistance Required: Minimum Assistance Distance (Feet) 127 Assistive Devices Assistive Device Gait Belt,Front Wheeled Walker Orthotic/Prosthetic Devices or Brace: No Gait Deviations General Gait Pattern Decreased Stride Length, Decreased Feet Clearance, Flexed Trunk Factors Limiting Gait Function Factors Limiting Gait Function Abnormal Tonal Influences, Decreased Activity Tolerance, Decreased Strength,Pain Stair Climbing Evaluation Comments Stair Climbing Comments unable PT-OP-H Neuro Start: 09/24/22 09:30 Freq: Status: Active Protocol: Document 09/24/22 09:06 [facility] (Rec: 09/28/22 11:39 [facility] [id number]) Sensation Evaluation Gross Sensation Gross Sensation Left LE Impaired,Right LE Impaired,Trunk Impaired PT-OP-J Posture/Palpation/Skin Start: 09/24/22 09:30 Freq: Status: Active Protocol: Document 09/24/22 09:06 [facility] (Rec: 09/28/22 11:39 [facility] [id number]) Posture Evaluation Position Sitting Head/C-Spine Posture Forward Head Shoulder Posture (L) Rounded,(R) Rounded Shoulder Subluxation Position (L) Anterior,(R) Anterior Scapula Posture (L) Protracted,(R) Protracted Arm Posture (L) Internally Rotated,(R) Internally Rotated PT-OP-K Range of Motion Start: 09/24/22 09:30 Freq: Status: Active Protocol: Document 09/24/22 09:06 [facility] (Rec: 09/28/22 11:39 [facility] [id number]) Hip Goniometric Range of Motion Hip chelle Straight Leg Raise 145 Hip ROM Limitations Hip ROM Limitations Soft Tissue Tightness Ankle and Foot Goniometric Range of Motion Ankle and Foot chelle Dorsiflexion with Knee Flexed 0 Ankle and Foot ROM Limitations ROM Limitations Soft Tissue Tightness PT-OP-M Strength Start: 09/24/22 09:30 Freq: Status: Active Protocol: Document 09/24/22 09:31 [facility] (Rec: 09/24/22 10:22 [facility] [id number]) Trunk Strength Trunk Manual Muscle Testing Flexion 3- Fair- Extension 2+ Poor+ Rotation Left 3- Fair- Rotation Right 3- Fair- Lateral Flexion Left 3- Fair- Lateral Flexion Right 3- Fair- Scapula Strength Scapula Manual Muscle Testing chelle Elevation (C4) 4+ Good+ Adduction 3+ Fair+ Abduction 3 Fair Depression 3+ Fair+ Shoulder Strength Shoulder Manual Muscle Testing Left Flexion 4 Good Extension 4 Good Abduction (C5) 4 Good Adduction 4 Good External Rotation 4 Good Internal Rotation 4 Good Horizontal Abduction 4 Good Horizontal Adduction 4 Good Right Flexion 4 Good Extension 4 Good Abduction (C5) 4 Good Adduction 4 Good External Rotation 4 Good Internal Rotation 4 Good Horizontal Abduction 4 Good Horizontal Adduction 4 Good Elbow/Forearm Strength Elbow and Forearm Manual Muscle Testing Left Flexion (C6) 4 Good Extension (C7) 4 Good Right Comments pain with resisted flex,ab,ER Hip Strength Hip Manual Muscle Testing Left Flexion (L2) 4- Good- Abduction 3- Fair- Adduction 3+ Fair+ Right Flexion (L2) 4- Good- Abduction 2+ Poor+ Adduction 3+ Fair+ Knee Strength Knee Manual Muscle Testing Left Flexion (S2) 4 Good Extension (L3) 4 Good Right Flexion (S2) 4- Good- Extension (L3) 4- Good- Ankle/Foot Strength Ankle and Foot Manual Muscle Testing Left Dorsiflexion (L4) 3+ Fair+ Plantarflexion (S1) 3+ Fair+ Right Dorsiflexion (L4) 3+ Fair+ Plantarflexion (S1) 3+ Fair+ PT-OP-Q Treatments Start: 09/24/22 09:30 Freq: Status: Active Protocol: Document 04/29/23 08:11 [facility] (Rec: 04/29/23 09:02 [facility] [id number]) Cardio Equipment Recumbent Stepper (Sci-Fit) Duration (Minutes) 6 Resistance 1 Seat Position 11 Other UE/LEs- 65RPMs, 0.64 mi Gym Equipment Shuttle Recovery Unilateral Squats Resistance 25 (new band) Shuttle Recovery Platform Stable Reps/Time 10x2 Bilateral Squats Details Squats with manual support to ankles and knees Resistance 62 (2>1 new band), 75 Shuttle Recovery Platform Stable Reps/Time 10x2 Therapeutic Exercises Sitting Exercises trunk flexion Resistance TB #3 Equipment Used sitting on Dynadisc (blue) Reps/Minutes x15 hamstring curl Resistance L2 TB Reps/Minutes 10x Comments cued pull back fully lean backs Equipment Used yellow dynadisc under bottom Reps/Minutes 12x resisted trunk rotation Sitting Exercise Name rotation Side bilateral Resistance L3 TB, therapist anchored Equipment Used sitting on Dynadisc (blue) Reps/Minutes x15 Gait Training Gait Activity FWW Description beginning of treatment Device Used FWW, w/c trailing by CARROT BUNCHER (1 person) Level of Assistance CGA Surface carpet/tile hallway Distance/Duration 80 Treatment Focus safety, activity tolerance, posture Comments no standing rest breaks for UE 's. BLE weakness by end distance, need to sit. Self-Care/Home Management Treatment Education Other Education do isometric shoulder ex if not fully able to do with TB with aunt gone. PT-OP-T Assessment and Plan Start: 09/24/22 09:30 Freq: Status: Active Protocol: Document 04/29/23 08:11 [facility] (Rec: 04/29/23 09:02 [facility] [id number]) Physical Therapy Assessment Goals Three Impairment pain right shoulder and low back Impairment diffiuculty performing ADL's due to pain and pain in right shoulder limits gait due to heavy use of walker [employer] Goal (LTG) Patient to report at least 50% decrease in pain with all usual activities and be independent with HEP for purposes of core stab, shoulder strengthening and stab 12/24/22: patient reported decrease in shoulder pain during vacation with not having to wheel herself (used power w/c), but has increased since starting to wheel again. Dec c/o LBP. Goal progress 02/18/23: reports decrease in shoulder pain to 0-4/10. Hadn 't been having back pain until exacerbation 2 weeks ago which appears QL. LTG Duration 05/26/23 One Impairment gait dysfunction Impairment 2 min walk test 127 ft, not able to tolerate 6 min walk test due to fatigue UE's from supporting body on walker and LE fatigue requiring 2 brief standing breaks, needing to stop at 2 min Short Term Goal (STG) Improve 2 min walk test to at least 150 ft as measure of improved functional gait 12/24/22: only able to ambulate 75 ft today and experienced giving way of left knee alf through gait requiring mod assist to correct. 02/18/23: 2 min walk test 68 ft today, limited due to back pain and left leg giving way requiring her to sit STG Duration 04/20/23 [employer] Goal (LTG) Patient able to tolerate 6 min walk test with gait distance of at least 300 ft as measure of improved functional gait LTG Duration 05/26/23 Four Impairment weakness Impairment 5x sit to stand test 15 sec with moderate use of hands moderate core muscle weakness with less than anti-gravity strength Short Term Goal (STG) Patient to be independent and compliant with updated HEP for purposes of LE and trunk muscle strengthening 12/24/22: patient was on vacation 1 month, not as compliant, noting dec functional strength today. HEP has been updated. Goal progress 02/18/23: patient compliant with HEP, ongoing progression STG Duration goal met [employer] Goal (LTG) Patient able to perform 5x sit to stand test in 10 sec as measure of improved functional LE strength and demonstrate 1 grade improvement in trunk muscle strength for improved safety with ADL performance 02/18/23: 10 sec today with 5x sit to stand. Noting improved functional core strength, good goal progress LTG Duration 05/26/23 Two Impairment balance dysfunction Impairment Tinetti gait and balance assessment 11/16 indicating patient at high risk for falls static standing 44 sec without holding on Short Term Goal (STG) Patient to be independent and compliant with gait and balance HEP 12/24/22: as above not as compliant to HEP and not ambulating while on vacation 02/18/23: 41 sec standing, limited by back pain STG Duration 04/20/23 [employer] Goal (LTG) Improve Tinetti gait and balance assessment score to moderate fall risk range to improve safety in the home and community improve static standing balance to at least 60 sec LTG Duration 05/26/23 Physical Therapy Plan Frequency and Duration Frequency of Treatment 1x/Week Duration of treatment (weeks) 12 Plan of Care Start Date 02/24/23 Plan of Care End Date 05/26/23 Therapeutic Interventions Therapeutic Interventions Balance Training,Home Exercise Program,Manual Therapy, Neuromuscular Re-education, Patient/Caregiver Education, Self-Care/Home Management,Soft Tissue Mobilization,Taping, Therapeutic Activities, Therapeutic Exercises Modalities Cold Pack/Ice Massage,Hot Packs Next Visit Focus/Plan Next Note Type Treatment Note Next Visit Plan Cont Sci-Fit, gait training, balance, flexibility, strengthening progression. Continue to increase stand ex as tolerated.
--- NOTE | 2023-05-03 16:25 | PT.OTN ---
Current Diagnoses Multiple sclerosis (05/03/23) Physical Therapy Treatment Note PT-OP-A Visit Information Start: 09/24/22 09:30 Freq: Status: Active Protocol: Document 05/03/23 08:13 SAK (Rec: 05/03/23 09:01 [facility] [id number]) Out-Patient Physical Therapy Visit Information Visit Information Visit Type Treatment Note Visit Note 8 post PN Visit Start Time 08:15 Visit Stop Time 13:45 Visit Number 45 Number of [employer]PERVISOR Visits 0 Evaluation Information Evaluation Date 09/24/22 Precautions Precautions MS, don't overfatigue, esophageal stenosis PT-OP-B Current Condition Start: 09/24/22 09:30 Freq: Status: Active Protocol: Document 10/05/22 12:33 SAK (Rec: 10/05/22 13:19 SAK [id number]) Current Condition History of Current Condition Onset Date March 2019 Current Complaints weakness due to MS, right shoulder pain, LBP History of Current Condition history MS with worsening weakness, as well as right shoulder pain (patient right handed). Patient has caregiver who assists her primarily with household tasks, HEP, walking. She uses a 4WW to walk short diestances (approx 30 feet) in the home, manual w /c for community mobility. No recent falls, but has history of falls. Reports was evaluated for power wheelchair recently but was denied. C/o right shoulder pain and tightness especially with reaching and propelling manual w/c. Well known to this PT for both land and aquatic- based PT. Prior Treatments and Tests prior PT; land and aquatic Future Testing and Treatments Planned nothing planned yet Treatment Goals Patient/Caregiver Goals improve core strength, decrease right shoulder pain, improve gait and balance PT-OP-C Subjective Start: 09/24/22 09:30 Freq: Status: Active Protocol: Document 05/03/23 08:13 SAK (Rec: 05/03/23 09:01 [facility] [id number]) OP-PT Subjective Patient Comments Patient Comments Has friction rash under arms from propelling w/c with rough fabric on dress. Fatigued with early appontment but no other c/o. PT-OP-D Balance Start: 09/24/22 09:30 Freq: Status: Active Protocol: Document 09/24/22 09:06 SAK (Rec: 09/28/22 11:39 [facility] [id number]) Tinetti Balance Assessment Sitting Balance Sitting Balance Steady, safe Standing Balance Immediate Standing Balance Steady with support Turning Step Pattern Turning 360 Degrees Discontinuous steps Sitting Down Sitting Down Uses arms or unsteady Gait and Step Initiation of Gait Hesitancy, mult. attempts Right Foot Step Length Does not pass stance ft. Right Foot Step Height Does not clear floor Left Foot Step Length Does not pass stance foot Left Foot Step Height Does not clear floor Step Description Step Symmetry Step length appears equal Step Continuity Stopping or discontinuity Gait Description Path Description Mild/moderate deviation Trunk Description Marked sway or uses aide Walking Stance Heels apart Scoring and Interpretation Tinetti Composite Score (points) 5 PT-OP-E Functional Tests Start: 09/24/22 09:30 Freq: Status: Active Protocol: Document 09/24/22 09:06 [facility] (Rec: 09/28/22 11:39 [facility] [id number]) Functional Tests 2 Minute Walk Test Distance 127 Device Used 4WW PT-OP-G Mobility & Gait Start: 09/24/22 09:30 Freq: Status: Active Protocol: Document 09/24/22 09:06 [facility] (Rec: 09/28/22 11:39 [facility] [id number]) OP Mobility Evaluation Bed Mobility Supine to and from Sit indep Transfers Bed to Chair Transfers indep Car Transfers assisted Floor Transfers not performed OP Gait Assessment Gait Gait Assistance Required: Minimum Assistance Distance (Feet) 127 Assistive Devices Assistive Device Gait Belt,Front Wheeled Walker Orthotic/Prosthetic Devices or Brace: No Gait Deviations General Gait Pattern Decreased Stride Length, Decreased Feet Clearance, Flexed Trunk Factors Limiting Gait Function Factors Limiting Gait Function Abnormal Tonal Influences, Decreased Activity Tolerance, Decreased Strength,Pain Stair Climbing Evaluation Comments Stair Climbing Comments unable PT-OP-H Neuro Start: 09/24/22 09:30 Freq: Status: Active Protocol: Document 09/24/22 09:06 [facility] (Rec: 09/28/22 11:39 [facility] [id number]) Sensation Evaluation Gross Sensation Gross Sensation Left LE Impaired,Right LE Impaired,Trunk Impaired PT-OP-J Posture/Palpation/Skin Start: 09/24/22 09:30 Freq: Status: Active Protocol: Document 09/24/22 09:06 [facility] (Rec: 09/28/22 11:39 [facility] [id number]) Posture Evaluation Position Sitting Head/C-Spine Posture Forward Head Shoulder Posture (L) Rounded,(R) Rounded Shoulder Subluxation Position (L) Anterior,(R) Anterior Scapula Posture (L) Protracted,(R) Protracted Arm Posture (L) Internally Rotated,(R) Internally Rotated PT-OP-K Range of Motion Start: 09/24/22 09:30 Freq: Status: Active Protocol: Document 09/24/22 09:06 [facility] (Rec: 09/28/22 11:39 [facility] [id number]) Hip Goniometric Range of Motion Hip chelle Straight Leg Raise 145 Hip ROM Limitations Hip ROM Limitations Soft Tissue Tightness Ankle and Foot Goniometric Range of Motion Ankle and Foot chelle Dorsiflexion with Knee Flexed 0 Ankle and Foot ROM Limitations ROM Limitations Soft Tissue Tightness PT-OP-M Strength Start: 09/24/22 09:30 Freq: Status: Active Protocol: Document 09/24/22 09:31 [facility] (Rec: 09/24/22 10:22 [facility] [id number]) Trunk Strength Trunk Manual Muscle Testing Flexion 3- Fair- Extension 2+ Poor+ Rotation Left 3- Fair- Rotation Right 3- Fair- Lateral Flexion Left 3- Fair- Lateral Flexion Right 3- Fair- Scapula Strength Scapula Manual Muscle Testing chelle Elevation (C4) 4+ Good+ Adduction 3+ Fair+ Abduction 3 Fair Depression 3+ Fair+ Shoulder Strength Shoulder Manual Muscle Testing Left Flexion 4 Good Extension 4 Good Abduction (C5) 4 Good Adduction 4 Good External Rotation 4 Good Internal Rotation 4 Good Horizontal Abduction 4 Good Horizontal Adduction 4 Good Right Flexion 4 Good Extension 4 Good Abduction (C5) 4 Good Adduction 4 Good External Rotation 4 Good Internal Rotation 4 Good Horizontal Abduction 4 Good Horizontal Adduction 4 Good Elbow/Forearm Strength Elbow and Forearm Manual Muscle Testing Left Flexion (C6) 4 Good Extension (C7) 4 Good Right Comments pain with resisted flex,ab,ER Hip Strength Hip Manual Muscle Testing Left Flexion (L2) 4- Good- Abduction 3- Fair- Adduction 3+ Fair+ Right Flexion (L2) 4- Good- Abduction 2+ Poor+ Adduction 3+ Fair+ Knee Strength Knee Manual Muscle Testing Left Flexion (S2) 4 Good Extension (L3) 4 Good Right Flexion (S2) 4- Good- Extension (L3) 4- Good- Ankle/Foot Strength Ankle and Foot Manual Muscle Testing Left Dorsiflexion (L4) 3+ Fair+ Plantarflexion (S1) 3+ Fair+ Right Dorsiflexion (L4) 3+ Fair+ Plantarflexion (S1) 3+ Fair+ PT-OP-Q Treatments Start: 09/24/22 09:30 Freq: Status: Active Protocol: Document 05/03/23 08:13 [facility] (Rec: 05/03/23 09:01 [facility] [id number]) Cardio Equipment Recumbent Stepper (Sci-Fit) Duration (Minutes) 5 Resistance 1 Seat Position 11 Other UE/LEs- 65RPMs, 0..52 mi Gym Equipment Shuttle Recovery Unilateral Squats Resistance 25 (new band) Shuttle Recovery Platform Stable Reps/Time 10x2 Bilateral Squats Details Squats with manual support to ankles and knees Resistance 62 (2>1 new band), 75 Shuttle Recovery Platform Stable Reps/Time 10x2 Therapeutic Exercises Supine Exercises hip flexor stretch Side bilateral Resistance mat table BLEs off edge ( perpendicular to EOtable) Reps/Minutes 30-60 Comments good feedback hip flexor stretch SKTC Supine Exercise Name SKTC and ER Side bilateral Reps/Minutes 2x30 Comments manual Sitting Exercises rows, shoulder ext Resistance L2 TB Equipment Used seated on Dynadisc Reps/Minutes 10x trunk flexion Resistance TB #3 Equipment Used sitting on Dynadisc (blue) Reps/Minutes x15 hamstring curl Resistance L2 TB Reps/Minutes 10x Comments cued pull back fully lean backs Equipment Used yellow dynadisc under bottom Reps/Minutes 12x resisted trunk rotation Sitting Exercise Name rotation Side bilateral Resistance L3 TB, therapist anchored Equipment Used sitting on Dynadisc (blue) Reps/Minutes x15 Gait Training Gait Activity FWW Description beginning of treatment Device Used FWW, w/c trailing by [employer] (1 person) Level of Assistance CGA Surface carpet/tile hallway Distance/Duration 109, 38, 38 Treatment Focus safety, activity tolerance, posture Comments no standing rest breaks for UE 's. BLE weakness by end distance, need to sit. PT-OP-T Assessment and Plan Start: 09/24/22 09:30 Freq: Status: Active Protocol: Document 05/03/23 08:13 [facility] (Rec: 05/03/23 09:01 [facility] [id number]) Physical Therapy Assessment Goals Three Impairment pain right shoulder and low back Impairment diffiuculty performing ADL's due to pain and pain in right shoulder limits gait due to heavy use of walker Dance Artist Goal (LTG) Patient to report at least 50% decrease in pain with all usual activities and be independent with HEP for purposes of core stab, shoulder strengthening and stab 12/24/22: patient reported decrease in shoulder pain during vacation with not having to wheel herself (used power w/c), but has increased since starting to wheel again. Dec c/o LBP. Goal progress 02/18/23: reports decrease in shoulder pain to 0-4/10. Hadn 't been having back pain until exacerbation 2 weeks ago which appears QL. LTG Duration 05/26/23 One Impairment gait dysfunction Impairment 2 min walk test 127 ft, not able to tolerate 6 min walk test due to fatigue UE's from supporting body on walker and LE fatigue requiring 2 brief standing breaks, needing to stop at 2 min Short Term Goal (STG) Improve 2 min walk test to at least 150 ft as measure of improved functional gait 12/24/22: only able to ambulate 75 ft today and experienced giving way of left knee chcf through gait requiring mod assist to correct. 02/18/23: 2 min walk test 68 ft today, limited due to back pain and left leg giving way requiring her to sit STG Duration 04/20/23 Dance Artist Goal (LTG) Patient able to tolerate 6 min walk test with gait distance of at least 300 ft as measure of improved functional gait LTG Duration 05/26/23 Four Impairment weakness Impairment 5x sit to stand test 15 sec with moderate use of hands moderate core muscle weakness with less than anti-gravity strength Short Term Goal (STG) Patient to be independent and compliant with updated HEP for purposes of LE and trunk muscle strengthening 12/24/22: patient was on vacation 1 month, not as compliant, noting dec functional strength today. HEP has been updated. Goal progress 02/18/23: patient compliant with HEP, ongoing progression STG Duration goal met Mcc Goal (LTG) Patient able to perform 5x sit to stand test in 10 sec as measure of improved functional LE strength and demonstrate 1 grade improvement in trunk muscle strength for improved safety with ADL performance 02/18/23: 10 sec today with 5x sit to stand. Noting improved functional core strength, good goal progress LTG Duration 05/26/23 Two Impairment balance dysfunction Impairment Tinetti gait and balance assessment 11/16 indicating patient at high risk for falls static standing 44 sec without holding on Short Term Goal (STG) Patient to be independent and compliant with gait and balance HEP 12/24/22: as above not as compliant to HEP and not ambulating while on vacation 02/18/23: 41 sec standing, limited by back pain STG Duration 04/20/23 Dance Artist Goal (LTG) Improve Tinetti gait and balance assessment score to moderate fall risk range to improve safety in the home and community improve static standing balance to at least 60 sec LTG Duration 05/26/23 Assessment Summary Assessment Patient able to increase distance walked at first bout, then 2 other times during session after doing seated or supine ex. Cues for scapular activation with theraband exercises. Physical Therapy Plan Frequency and Duration Frequency of Treatment 1x/Week Duration of treatment (weeks) 12 Plan of Care Start Date 02/24/23 Plan of Care End Date 05/26/23 Therapeutic Interventions Therapeutic Interventions Balance Training,Home Exercise Program,Manual Therapy, Neuromuscular Re-education, Patient/Caregiver Education, Self-Care/Home Management,Soft Tissue Mobilization,Taping, Therapeutic Activities, Therapeutic Exercises Modalities Cold Pack/Ice Massage,Hot Packs Next Visit Focus/Plan Next Note Type Treatment Note Next Visit Plan Cont Sci-Fit, gait training, balance, flexibility, strengthening progression. Continue to increase stand ex as tolerated.
--- NOTE | 2023-05-10 10:30 | PT.OTN ---
Current Diagnoses Multiple sclerosis (05/10/23) Physical Therapy Treatment Note PT-OP-A Visit Information Start: 09/24/22 09:30 Freq: Status: Active Protocol: Document 05/10/23 09:48 SAK (Rec: 05/10/23 10:30 SAK [id number]) Out-Patient Physical Therapy Visit Information Visit Information Visit Type Treatment Note Visit Note 11/29 post PN Visit Start Time 09:45 Visit Stop Time 13:45 Visit Number 45 Number of HEAD CD REACTOR OPERATOR Visits 0 Evaluation Information Evaluation Date 09/24/22 Precautions Precautions MS, don't overfatigue, esophageal stenosis PT-OP-B Current Condition Start: 09/24/22 09:30 Freq: Status: Active Protocol: Document 10/05/22 12:33 SAK (Rec: 10/05/22 13:19 SAK [id number]) Current Condition History of Current Condition Onset Date March 2019 Current Complaints weakness due to MS, right shoulder pain, LBP History of Current Condition history MS with worsening weakness, as well as right shoulder pain (patient right handed). Patient has caregiver who assists her primarily with household tasks, HEP, walking. She uses a 4WW to walk short diestances (approx 30 feet) in the home, manual w /c for community mobility. No recent falls, but has history of falls. Reports was evaluated for power wheelchair recently but was denied. C/o right shoulder pain and tightness especially with reaching and propelling manual w/c. Well known to this PT for both land and aquatic- based PT. Prior Treatments and Tests prior PT; land and aquatic Future Testing and Treatments Planned nothing planned yet Treatment Goals Patient/Caregiver Goals improve core strength, decrease right shoulder pain, improve gait and balance PT-OP-C Subjective Start: 09/24/22 09:30 Freq: Status: Active Protocol: Document 05/10/23 09:48 SAK (Rec: 05/10/23 10:30 SAK [id number]) OP-PT Subjective Patient Comments Patient Comments Tired, poor sleep one night this weekend. PT-OP-D Balance Start: 09/24/22 09:30 Freq: Status: Active Protocol: Document 09/24/22 09:06 SAK (Rec: 09/28/22 11:39 SAK [id number]) Tinetti Balance Assessment Sitting Balance Sitting Balance Steady, safe Standing Balance Immediate Standing Balance Steady with support Turning Step Pattern Turning 360 Degrees Discontinuous steps Sitting Down Sitting Down Uses arms or unsteady Gait and Step Initiation of Gait Hesitancy, mult. attempts Right Foot Step Length Does not pass stance ft. Right Foot Step Height Does not clear floor Left Foot Step Length Does not pass stance foot Left Foot Step Height Does not clear floor Step Description Step Symmetry Step length appears equal Step Continuity Stopping or discontinuity Gait Description Path Description Mild/moderate deviation Trunk Description Marked sway or uses aide Walking Stance Heels apart Scoring and Interpretation Tinetti Composite Score (points) 5 PT-OP-E Functional Tests Start: 09/24/22 09:30 Freq: Status: Active Protocol: Document 09/24/22 09:06 [facility] (Rec: 09/28/22 11:39 [facility] [id number]) Functional Tests 2 Minute Walk Test Distance 127 Device Used 4WW PT-OP-G Mobility & Gait Start: 09/24/22 09:30 Freq: Status: Active Protocol: Document 09/24/22 09:06 [facility] (Rec: 09/28/22 11:39 [facility] [id number]) OP Mobility Evaluation Bed Mobility Supine to and from Sit indep Transfers Bed to Chair Transfers indep Car Transfers assisted Floor Transfers not performed OP Gait Assessment Gait Gait Assistance Required: Minimum Assistance Distance (Feet) 127 Assistive Devices Assistive Device Gait Belt,Front Wheeled Walker Orthotic/Prosthetic Devices or Brace: No Gait Deviations General Gait Pattern Decreased Stride Length, Decreased Feet Clearance, Flexed Trunk Factors Limiting Gait Function Factors Limiting Gait Function Abnormal Tonal Influences, Decreased Activity Tolerance, Decreased Strength,Pain Stair Climbing Evaluation Comments Stair Climbing Comments unable PT-OP-H Neuro Start: 09/24/22 09:30 Freq: Status: Active Protocol: Document 09/24/22 09:06 [facility] (Rec: 09/28/22 11:39 [facility] [id number]) Sensation Evaluation Gross Sensation Gross Sensation Left LE Impaired,Right LE Impaired,Trunk Impaired PT-OP-J Posture/Palpation/Skin Start: 09/24/22 09:30 Freq: Status: Active Protocol: Document 09/24/22 09:06 [facility] (Rec: 09/28/22 11:39 [facility] [id number]) Posture Evaluation Position Sitting Head/C-Spine Posture Forward Head Shoulder Posture (L) Rounded,(R) Rounded Shoulder Subluxation Position (L) Anterior,(R) Anterior Scapula Posture (L) Protracted,(R) Protracted Arm Posture (L) Internally Rotated,(R) Internally Rotated PT-OP-K Range of Motion Start: 09/24/22 09:30 Freq: Status: Active Protocol: Document 09/24/22 09:06 [facility] (Rec: 09/28/22 11:39 [facility] [id number]) Hip Goniometric Range of Motion Hip chelle Straight Leg Raise 145 Hip ROM Limitations Hip ROM Limitations Soft Tissue Tightness Ankle and Foot Goniometric Range of Motion Ankle and Foot chelle Dorsiflexion with Knee Flexed 0 Ankle and Foot ROM Limitations ROM Limitations Soft Tissue Tightness PT-OP-M Strength Start: 09/24/22 09:30 Freq: Status: Active Protocol: Document 09/24/22 09:31 [facility] (Rec: 09/24/22 10:22 [facility] [id number]) Trunk Strength Trunk Manual Muscle Testing Flexion 3- Fair- Extension 2+ Poor+ Rotation Left 3- Fair- Rotation Right 3- Fair- Lateral Flexion Left 3- Fair- Lateral Flexion Right 3- Fair- Scapula Strength Scapula Manual Muscle Testing chelle Elevation (C4) 4+ Good+ Adduction 3+ Fair+ Abduction 3 Fair Depression 3+ Fair+ Shoulder Strength Shoulder Manual Muscle Testing Left Flexion 4 Good Extension 4 Good Abduction (C5) 4 Good Adduction 4 Good External Rotation 4 Good Internal Rotation 4 Good Horizontal Abduction 4 Good Horizontal Adduction 4 Good Right Flexion 4 Good Extension 4 Good Abduction (C5) 4 Good Adduction 4 Good External Rotation 4 Good Internal Rotation 4 Good Horizontal Abduction 4 Good Horizontal Adduction 4 Good Elbow/Forearm Strength Elbow and Forearm Manual Muscle Testing Left Flexion (C6) 4 Good Extension (C7) 4 Good Right Comments pain with resisted flex,ab,ER Hip Strength Hip Manual Muscle Testing Left Flexion (L2) 4- Good- Abduction 3- Fair- Adduction 3+ Fair+ Right Flexion (L2) 4- Good- Abduction 2+ Poor+ Adduction 3+ Fair+ Knee Strength Knee Manual Muscle Testing Left Flexion (S2) 4 Good Extension (L3) 4 Good Right Flexion (S2) 4- Good- Extension (L3) 4- Good- Ankle/Foot Strength Ankle and Foot Manual Muscle Testing Left Dorsiflexion (L4) 3+ Fair+ Plantarflexion (S1) 3+ Fair+ Right Dorsiflexion (L4) 3+ Fair+ Plantarflexion (S1) 3+ Fair+ PT-OP-Q Treatments Start: 09/24/22 09:30 Freq: Status: Active Protocol: Document 05/10/23 09:48 SAK (Rec: 05/10/23 10:30 [facility] [id number]) Cardio Equipment Recumbent Stepper (Sci-Fit) Duration (Minutes) 5 Resistance 3 Seat Position 13 Other 45-52 RPM Gym Equipment Therapeutic Ball bridge Ball Size/Color 55 cm green Body Position Hooklying Reps/Duration 10x heelslide Ball Size/Color 65 cm ball Body Position Hooklying Reps/Duration 10x Comments Dycem under legs heel dig Ball Size/Color 65 cm green Reps/Duration 10x Therapeutic Exercises Supine Exercises quad stretch Reps/Minutes 2x30 Comments legs over the side of the table trunk rotation Supine Exercise Name self LS & TS stretch Side bilateral Resistance AROM Equipment Used on mat table Reps/Minutes 30 x2 each side Comments Good mid thoracic and QL stretch&ROM- post manual IT band stretch Reps/Minutes 2x30 Comments manual figure 4 Side bilateral Resistance AROM Reps/Minutes 60 Comments good adductor/hip flexor stretch HC stretch Supine Exercise Name added to HEP Side bilateral Equipment Used mesh chair Reps/Minutes 30 Comments Cued scoot front seat, hip hinge, LE front hip flexor stretch Side bilateral Resistance mat table BLEs off edge ( perpendicular to EOtable) Reps/Minutes 30-60 Comments good feedback hip flexor stretch Sitting Exercises rows, shoulder ext Resistance L2 TB Equipment Used seated on Dynadisc Reps/Minutes 10x trunk flexion Resistance TB #3 Equipment Used sitting on Dynadisc (blue) Reps/Minutes x15 hamstring curl Resistance L2 TB Reps/Minutes 10x Comments cued pull back fully trunk sidebend stretch Reps/Minutes 2x10 Comments cues for deep breathing lean backs Equipment Used yellow dynadisc under bottom Reps/Minutes 12x seated trunk rotation stretch Reps/Minutes 2x10 Comments cues for deep breathing into tight areas. LAQ Side bilateral Resistance #5 leg wt 1 set Reps/Minutes 2x10 Comments target to kick to, R slight weaker than L sit<> stands Equipment Used facing and use bar needed, post gait from w/c Reps/Minutes x5 reps Comments need sit at 5 reps due to R>L LE tiring decreased TKE into standing. row, sh ext Sitting Exercise Name extension Side bilateral Resistance L3 TB, therapist anchored Equipment Used sitting on Dynadisc (yellow) Reps/Minutes x15 reps Comments cued feet together, center with little anterior ischial tuberosity resisted trunk rotation Sitting Exercise Name rotation Side bilateral Resistance L3 TB, therapist anchored Equipment Used sitting on Dynadisc (blue) Reps/Minutes x15 pec stretch Reps/Minutes 2x30 Comments green ball mid thoracic sp cat/cow Reps/Minutes 5x5 UT stretch Reps/Minutes 2x10 sh ER Side bilateral Resistance Tb #1 Equipment Used seated on black table, blue dynadisc under bottom, yellow under feet Reps/Minutes 10 reps, 5 SH x5 reps Comments cued palm up good slow pacing pulleys Sitting Exercise Name flexion, scaption Reps/Minutes 10x Comments green ball mid thoracic sp Gait Training Gait Activity FWW Description beginning of treatment Device Used FWW, w/c trailing by HEAD CD REACTOR OPERATOR (1 person) Level of Assistance CGA Surface carpet/tile hallway Distance/Duration 50,22 Treatment Focus safety, activity tolerance, posture Comments no standing rest breaks for UE 's. BLE weakness by end distance, need to sit. PT-OP-T Assessment and Plan Start: 09/24/22 09:30 Freq: Status: Active Protocol: Document 05/10/23 09:48 [facility] (Rec: 05/10/23 10:30 [facility] [id number]) Physical Therapy Assessment Goals Three Impairment pain right shoulder and low back Impairment diffiuculty performing ADL's due to pain and pain in right shoulder limits gait due to heavy use of walker Cattle Driver Goal (LTG) Patient to report at least 50% decrease in pain with all usual activities and be independent with HEP for purposes of core stab, shoulder strengthening and stab 12/24/22: patient reported decrease in shoulder pain during vacation with not having to wheel herself (used power w/c), but has increased since starting to wheel again. Dec c/o LBP. Goal progress 02/18/23: reports decrease in shoulder pain to 0-4/10. Hadn 't been having back pain until exacerbation 2 weeks ago which appears QL. LTG Duration 05/26/23 One Impairment gait dysfunction Impairment 2 min walk test 127 ft, not able to tolerate 6 min walk test due to fatigue UE's from supporting body on walker and LE fatigue requiring 2 brief standing breaks, needing to stop at 2 min Short Term Goal (STG) Improve 2 min walk test to at least 150 ft as measure of improved functional gait 12/24/22: only able to ambulate 75 ft today and experienced giving way of left knee intermediate through gait requiring mod assist to correct. 02/18/23: 2 min walk test 68 ft today, limited due to back pain and left leg giving way requiring her to sit STG Duration 04/20/23 Cattle Driver Goal (LTG) Patient able to tolerate 6 min walk test with gait distance of at least 300 ft as measure of improved functional gait LTG Duration 05/26/23 Four Impairment weakness Impairment 5x sit to stand test 15 sec with moderate use of hands moderate core muscle weakness with less than anti-gravity strength Short Term Goal (STG) Patient to be independent and compliant with updated HEP for purposes of LE and trunk muscle strengthening 12/24/22: patient was on vacation 1 month, not as compliant, noting dec functional strength today. HEP has been updated. Goal progress 02/18/23: patient compliant with HEP, ongoing progression STG Duration goal met Cattle Driver Goal (LTG) Patient able to perform 5x sit to stand test in 10 sec as measure of improved functional LE strength and demonstrate 1 grade improvement in trunk muscle strength for improved safety with ADL performance 02/18/23: 10 sec today with 5x sit to stand. Noting improved functional core strength, good goal progress LTG Duration 05/26/23 Two Impairment balance dysfunction Impairment Tinetti gait and balance assessment 11/16 indicating patient at high risk for falls static standing 44 sec without holding on Short Term Goal (STG) Patient to be independent and compliant with gait and balance HEP 12/24/22: as above not as compliant to HEP and not ambulating while on vacation 02/18/23: 41 sec standing, limited by back pain STG Duration 04/20/23 Cattle Driver Goal (LTG) Improve Tinetti gait and balance assessment score to moderate fall risk range to improve safety in the home and community improve static standing balance to at least 60 sec LTG Duration 05/26/23 Assessment Summary Assessment Fatigued after poor sleep and Sci-Fit L3, dec gait distance, needed assist to get up from supine edge of treatment table . Physical Therapy Plan Frequency and Duration Frequency of Treatment 1x/Week Duration of treatment (weeks) 12 Plan of Care Start Date 02/24/23 Plan of Care End Date 05/26/23 Therapeutic Interventions Therapeutic Interventions Balance Training,Home Exercise Program,Manual Therapy, Neuromuscular Re-education, Patient/Caregiver Education, Self-Care/Home Management,Soft Tissue Mobilization,Taping, Therapeutic Activities, Therapeutic Exercises Modalities Cold Pack/Ice Massage,Hot Packs Next Visit Focus/Plan Next Note Type Treatment Note Next Visit Plan Cont Sci-Fit (L1) , gait training, balance, flexibility , strengthening progression. Continue to increase stand ex as tolerated.
--- NOTE | 2023-05-18 16:47 | PT.OTRE ---
Current Diagnoses Multiple sclerosis (05/18/23) Past Medical History (Last Updated 02/24/23 @ 14:56 by Elizabeth Alonso DO) IUD (intrauterine device) in place Moderate mixed hyperlipidemia not requiring statin therapy Visit Care Team Role Provider Type Elizabeth Alonso DO Primary Care Provider Physician Specialty: Family Practice Address: [address] [place] [address], [id number] Email: [email or web address] Rehan Zacarias MD Family Provider Non-Staff Specialty: Internal Medicine Address: [address] [place] [address], [place], [address] Email: Rufino Umaña MD Attending Provider Non-Staff Referring Provider Specialty: Psychiatry Address: [address] [place] [address], [address], [address] Email: Physical Therapy Re-Evaluation PT-OP-A Visit Information Start: 09/24/22 09:30 Freq: Status: Active Protocol: Document 05/18/23 13:50 [facility] (Rec: 05/18/23 14:39 [facility] [id number]) Out-Patient Physical Therapy Visit Information Visit Information Visit Type Treatment Note Visit Note 12/29 post PN Visit Start Time 13:40 Visit Stop Time 14:31 Visit Number 49 Evaluation Information Evaluation Date 09/24/22 Precautions Precautions MS, don't overfatigue, esophageal stenosis PT-OP-B Current Condition Start: 09/24/22 09:30 Freq: Status: Active Protocol: Document 10/05/22 12:33 [facility]AK (Rec: 10/05/22 13:19 [facility] [id number]) Current Condition History of Current Condition Onset Date March 2019 Current Complaints weakness due to MS, right shoulder pain, LBP History of Current Condition history MS with worsening weakness, as well as right shoulder pain (patient right handed). Patient has caregiver who assists her primarily with household tasks, HEP, walking. She uses a 4WW to walk short diestances (approx 30 feet) in the home, manual w /c for community mobility. No recent falls, but has history of falls. Reports was evaluated for power wheelchair recently but was denied. C/o right shoulder pain and tightness especially with reaching and propelling manual w/c. Well known to this PT for both land and aquatic- based PT. Prior Treatments and Tests prior PT; land and aquatic Future Testing and Treatments Planned nothing planned yet Treatment Goals Patient/Caregiver Goals improve core strength, decrease right shoulder pain, improve gait and balance PT-OP-C Subjective Start: 09/24/22 09:30 Freq: Status: Active Protocol: Document 05/18/23 13:50 [facility] (Rec: 05/18/23 14:39 [facility] [id number]) OP-PT Subjective Patient Comments Patient Comments Reports struggling with breathing, has called surgeon to ask if able to get surgery scheduled due to worsening esophageal stenosis. Doesn' t feel walking or standing will be tolerating. PT-OP-D Balance Start: 09/24/22 09:30 Freq: Status: Active Protocol: Document 09/24/22 09:06 [facility] (Rec: 09/28/22 11:39 [facility] [id number]) Tinetti Balance Assessment Sitting Balance Sitting Balance Steady, safe Standing Balance Immediate Standing Balance Steady with support Turning Step Pattern Turning 360 Degrees Discontinuous steps Sitting Down Sitting Down Uses arms or unsteady Gait and Step Initiation of Gait Hesitancy, mult. attempts Right Foot Step Length Does not pass stance ft. Right Foot Step Height Does not clear floor Left Foot Step Length Does not pass stance foot Left Foot Step Height Does not clear floor Step Description Step Symmetry Step length appears equal Step Continuity Stopping or discontinuity Gait Description Path Description Mild/moderate deviation Trunk Description Marked sway or uses aide Walking Stance Heels apart Scoring and Interpretation Tinetti Composite Score (points) 5 PT-OP-E Functional Tests Start: 09/24/22 09:30 Freq: Status: Active Protocol: Document 09/24/22 09:06 [facility] (Rec: 09/28/22 11:39 [facility] [id number]) Functional Tests 2 Minute Walk Test Distance 127 Device Used 4WW PT-OP-G Mobility & Gait Start: 09/24/22 09:30 Freq: Status: Active Protocol: Document 09/24/22 09:06 [facility] (Rec: 09/28/22 11:39 [facility] [id number]) OP Mobility Evaluation Bed Mobility Supine to and from Sit indep Transfers Bed to Chair Transfers indep Car Transfers assisted Floor Transfers not performed OP Gait Assessment Gait Gait Assistance Required: Minimum Assistance Distance (Feet) 127 Assistive Devices Assistive Device Gait Belt,Front Wheeled Walker Orthotic/Prosthetic Devices or Brace: No Gait Deviations General Gait Pattern Decreased Stride Length, Decreased Feet Clearance, Flexed Trunk Factors Limiting Gait Function Factors Limiting Gait Function Abnormal Tonal Influences, Decreased Activity Tolerance, Decreased Strength,Pain Stair Climbing Evaluation Comments Stair Climbing Comments unable PT-OP-H Neuro Start: 09/24/22 09:30 Freq: Status: Active Protocol: Document 09/24/22 09:06 [facility] (Rec: 09/28/22 11:39 [facility] [id number]) Sensation Evaluation Gross Sensation Gross Sensation Left LE Impaired,Right LE Impaired,Trunk Impaired PT-OP-J Posture/Palpation/Skin Start: 09/24/22 09:30 Freq: Status: Active Protocol: Document 09/24/22 09:06 [facility] (Rec: 09/28/22 11:39 [facility] [id number]) Posture Evaluation Position Sitting Head/C-Spine Posture Forward Head Shoulder Posture (L) Rounded,(R) Rounded Shoulder Subluxation Position (L) Anterior,(R) Anterior Scapula Posture (L) Protracted,(R) Protracted Arm Posture (L) Internally Rotated,(R) Internally Rotated PT-OP-K Range of Motion Start: 09/24/22 09:30 Freq: Status: Active Protocol: Document 09/24/22 09:06 [facility] (Rec: 09/28/22 11:39 [facility] [id number]) Hip Goniometric Range of Motion Hip Measured in Degrees chelle Straight Leg Raise 145 Hip ROM Limitations Hip ROM Limitations Soft Tissue Tightness Ankle and Foot Goniometric Range of Motion Ankle and Foot Measured in Degrees chelle Dorsiflexion with Knee Flexed 0 Ankle and Foot ROM Limitations ROM Limitations Soft Tissue Tightness PT-OP-M Strength Start: 09/24/22 09:30 Freq: Status: Active Protocol: Document 09/24/22 09:31 [facility] (Rec: 09/24/22 10:22 [facility] [id number]) Trunk Strength Trunk Manual Muscle Testing Flexion 3- Fair- Extension 2+ Poor+ Rotation Left 3- Fair- Rotation Right 3- Fair- Lateral Flexion Left 3- Fair- Lateral Flexion Right 3- Fair- Scapula Strength Scapula Manual Muscle Testing chelle Elevation (C4) 4+ Good+ Adduction 3+ Fair+ Abduction 3 Fair Depression 3+ Fair+ Shoulder Strength Shoulder Manual Muscle Testing Left Flexion 4 Good Extension 4 Good Abduction (C5) 4 Good Adduction 4 Good External Rotation 4 Good Internal Rotation 4 Good Horizontal Abduction 4 Good Horizontal Adduction 4 Good Right Flexion 4 Good Extension 4 Good Abduction (C5) 4 Good Adduction 4 Good External Rotation 4 Good Internal Rotation 4 Good Horizontal Abduction 4 Good Horizontal Adduction 4 Good Elbow/Forearm Strength Elbow and Forearm Manual Muscle Testing Left Flexion (C6) 4 Good Extension (C7) 4 Good Right Comments pain with resisted flex,ab,ER Hip Strength Hip Manual Muscle Testing Left Flexion (L2) 4- Good- Abduction 3- Fair- Adduction 3+ Fair+ Right Flexion (L2) 4- Good- Abduction 2+ Poor+ Adduction 3+ Fair+ Knee Strength Knee Manual Muscle Testing Left Flexion (S2) 4 Good Extension (L3) 4 Good Right Flexion (S2) 4- Good- Extension (L3) 4- Good- Ankle/Foot Strength Ankle and Foot Manual Muscle Testing Left Dorsiflexion (L4) 3+ Fair+ Plantarflexion (S1) 3+ Fair+ Right Dorsiflexion (L4) 3+ Fair+ Plantarflexion (S1) 3+ Fair+ PT-OP-Q Treatments Start: 09/24/22 09:30 Freq: Status: Active Protocol: Document 05/18/23 13:50 [facility] (Rec: 05/18/23 14:39 [facility] [id number]) Cardio Equipment Recumbent Stepper (Sci-Fit) Duration (Minutes) 5 Resistance 1 Seat Position 13 Other 40-50 RPM, 0.41 mil Gym Equipment Therapeutic Ball bridge Ball Size/Color 55 cm green Body Position Hooklying Reps/Duration 10x heelslide Ball Size/Color 65 cm ball Body Position Hooklying Reps/Duration 10x Comments Dycem under legs heel dig Ball Size/Color 65 cm green Reps/Duration 10x LTR Ball Size/Color 65 cm green Body Position Hooklying Reps/Duration 10x Therapeutic Exercises Supine Exercises quad stretch Reps/Minutes 2x30 Comments legs over the side of the table trunk rotation Supine Exercise Name self LS & TS stretch Side bilateral Resistance AROM Equipment Used on mat table Reps/Minutes 30 x2 each side Comments Good mid thoracic and QL stretch&ROM- post manual IT band stretch Reps/Minutes 2x30 Comments manual figure 4 Side bilateral Resistance AROM Reps/Minutes 60 Comments good adductor/hip flexor stretch piriformis stretch Side bilateral Reps/Minutes 60 Comments manual HC stretch Supine Exercise Name added to HEP Side bilateral Equipment Used mesh chair Reps/Minutes 30 Comments Cued scoot front seat, hip hinge, LE front hip flexor stretch Side bilateral Resistance mat table BLEs off edge ( perpendicular to EOtable) Reps/Minutes 30-60 Comments good feedback hip flexor stretch Sitting Exercises rows, shoulder ext Resistance L2 TB Equipment Used seated on Dynadisc Reps/Minutes 10x trunk flexion Resistance TB #3 Equipment Used sitting on Dynadisc (blue) Reps/Minutes x15 hamstring curl Resistance L2 TB Reps/Minutes 10x Comments cued pull back fully LAQ Side bilateral Resistance #5 leg wt 1 set Reps/Minutes 2x10 Comments target to kick to, R slight weaker than L resisted trunk rotation Sitting Exercise Name rotation Side bilateral Resistance L2 TB, therapist anchored Reps/Minutes x15 Gait Training Gait Activity FWW Comments held, patient not feeling up to it due to inc work of breathing PT-OP-T Assessment and Plan Start: 09/24/22 09:30 Freq: Status: Active Protocol: Document 05/18/23 13:50 [facility] (Rec: 05/18/23 14:39 [facility] [id number]) Physical Therapy Assessment Goals Three Impairment pain right shoulder and low back Impairment diffiuculty performing ADL's due to pain and pain in right shoulder limits gait due to heavy use of walker Detention Goal (LTG) Patient to report at least 50% decrease in pain with all usual activities and be independent with HEP for purposes of core stab, shoulder strengthening and stab 12/24/22: patient reported decrease in shoulder pain during vacation with not having to wheel herself (used power w/c), but has increased since starting to wheel again. Dec c/o LBP. Goal progress 02/18/23: reports decrease in shoulder pain to 0-4/10. Hadn 't been having back pain until exacerbation 2 weeks ago which appears QL. 05/18/23: goal progress with both shoulder and back pain LTG Duration 08/16/23 One Impairment gait dysfunction Impairment 2 min walk test 127 ft, not able to tolerate 6 min walk test due to fatigue UE's from supporting body on walker and LE fatigue requiring 2 brief standing breaks, needing to stop at 2 min Short Term Goal (STG) Improve 2 min walk test to at least 150 ft as measure of improved functional gait 12/24/22: only able to ambulate 75 ft today and experienced giving way of left knee long term through gait requiring mod assist to correct. 02/18/23: 2 min walk test 68 ft today, limited due to back pain and left leg giving way requiring her to sit 05/18/23: goal abandoned. See LTG STG Duration 06/21/23 Detention Goal (LTG) Patient able to tolerate 6 min walk test with gait distance of at least 300 ft as measure of improved functional gait 05/18/23: goal modification due to inability to reach this goal: New goal: patient able to tolerate 3 min walk test and walk a distance of at least 150 feet. (current max is 109 ft) LTG Duration 08/16/23 Four Impairment weakness Impairment 5x sit to stand test 15 sec with moderate use of hands moderate core muscle weakness with less than anti-gravity strength Short Term Goal (STG) Patient to be independent and compliant with updated HEP for purposes of LE and trunk muscle strengthening 12/24/22: patient was on vacation 1 month, not as compliant, noting dec functional strength today. HEP has been updated. Goal progress 02/18/23: patient compliant with HEP, ongoing progression STG Duration goal met Detention Goal (LTG) Patient able to perform 5x sit to stand test in 10 sec as measure of improved functional LE strength and demonstrate 1 grade improvement in trunk muscle strength for improved safety with ADL performance 02/18/23: 10 sec today with 5x sit to stand. Noting improved functional core strength, good goal progress 05/18/23: not able to retest due to patient activity intolerance today due to esophageal stenosis LTG Duration 08/16/23 Two Impairment balance dysfunction Impairment Tinetti gait and balance assessment 11/16 indicating patient at high risk for falls static standing 44 sec without holding on Short Term Goal (STG) Patient to be independent and compliant with gait and balance HEP 12/24/22: as above not as compliant to HEP and not ambulating while on vacation 02/18/23: 41 sec standing, limited by back pain 05/18/23: unable to retest due to esophageal stenosis with dec activity tolerance today STG Duration 04/20/23 Research Rn Spec Goal (LTG) Improve Tinetti gait and balance assessment score to moderate fall risk range to improve safety in the home and community improve static standing balance to at least 60 sec LTG Duration 08/16/23 Assessment Summary Assessment Patient activity and exercise tolerance moderately decreased today due to esophageal stenosis with increased work of breathing, not all goals able to be reassessed as a result. No standing or walking activities today, decreased tolerance for other exercises as well including recumbant elliptical dec resistance from 3 to 1. Worked on supine and seated exercises. Recommend continued skilled PT to address above goals. Physical Therapy Plan Frequency and Duration Frequency of Treatment 1x/Week Duration of treatment (weeks) 12 Plan of Care Start Date 05/18/23 Plan of Care End Date 08/16/23 Therapeutic Interventions Therapeutic Interventions Balance Training,Home Exercise Program,Manual Therapy, Neuromuscular Re-education, Patient/Caregiver Education, Self-Care/Home Management,Soft Tissue Mobilization,Taping, Therapeutic Activities, Therapeutic Exercises Modalities Cold Pack/Ice Massage,Hot Packs Next Visit Focus/Plan Next Note Type Treatment Note Next Visit Plan Continue PT per POC, increase standing activities as tolerated after patient has esophageal procedure.
--- NOTE | 2023-05-18 16:48 | PT.OPPOC ---
Physical, Occupational & Speech Therapy At [facility] Current Diagnoses Multiple sclerosis (05/18/23) Visit Care Team Role Provider Type Elizabeth Alonso DO Primary Care Provider Physician Specialty: Family Practice Address: [address] [place] [address], [address] Email: [email or web address] Rehan Zacarias MD Family Provider Non-Staff Specialty: Internal Medicine Address: [address] [place] [address], [address] Email: Rufino Umaña MD Attending Provider Non-Staff Referring Provider Specialty: Psychiatry Address: [address] [place] [address], [address] Email: Plan Of Care PT-OP-T Assessment and Plan Start: 09/24/22 09:30 Freq: Status: Active Protocol: Document 05/18/23 13:50 [facility] (Rec: 05/18/23 14:39 [facility] [id number]) Physical Therapy Assessment Goals Three Impairment pain right shoulder and low back Impairment diffiuculty performing ADL's due to pain and pain in right shoulder limits gait due to heavy use of walker Tunnel Kiln Repairer Goal (LTG) Patient to report at least 50% decrease in pain with all usual activities and be independent with HEP for purposes of core stab, shoulder strengthening and stab 12/24/22: patient reported decrease in shoulder pain during vacation with not having to wheel herself (used power w/c), but has increased since starting to wheel again. Dec c/o LBP. Goal progress 02/18/23: reports decrease in shoulder pain to 0-4/10. Hadn 't been having back pain until exacerbation 2 weeks ago which appears QL. 05/18/23: goal progress with both shoulder and back pain LTG Duration 08/16/23 One Impairment gait dysfunction Impairment 2 min walk test 127 ft, not able to tolerate 6 min walk test due to fatigue UE's from supporting body on walker and LE fatigue requiring 2 brief standing breaks, needing to stop at 2 min Short Term Goal (STG) Improve 2 min walk test to at least 150 ft as measure of improved functional gait 12/24/22: only able to ambulate 75 ft today and experienced giving way of left knee senior living through gait requiring mod assist to correct. 02/18/23: 2 min walk test 68 ft today, limited due to back pain and left leg giving way requiring her to sit 05/18/23: goal abandoned. See LTG STG Duration 06/21/23 Tunnel Kiln Repairer Goal (LTG) Patient able to tolerate 6 min walk test with gait distance of at least 300 ft as measure of improved functional gait 05/18/23: goal modification due to inability to reach this goal: New goal: patient able to tolerate 3 min walk test and walk a distance of at least 150 feet. (current max is 109 ft) LTG Duration 08/16/23 Four Impairment weakness Impairment 5x sit to stand test 15 sec with moderate use of hands moderate core muscle weakness with less than anti-gravity strength Short Term Goal (STG) Patient to be independent and compliant with updated HEP for purposes of LE and trunk muscle strengthening 12/24/22: patient was on vacation 1 month, not as compliant, noting dec functional strength today. HEP has been updated. Goal progress 02/18/23: patient compliant with HEP, ongoing progression STG Duration goal met Fdc Goal (LTG) Patient able to perform 5x sit to stand test in 10 sec as measure of improved functional LE strength and demonstrate 1 grade improvement in trunk muscle strength for improved safety with ADL performance 02/18/23: 10 sec today with 5x sit to stand. Noting improved functional core strength, good goal progress 05/18/23: not able to retest due to patient activity intolerance today due to esophageal stenosis LTG Duration 08/16/23 Two Impairment balance dysfunction Impairment Tinetti gait and balance assessment 11/16 indicating patient at high risk for falls static standing 44 sec without holding on Short Term Goal (STG) Patient to be independent and compliant with gait and balance HEP 12/24/22: as above not as compliant to HEP and not ambulating while on vacation 02/18/23: 41 sec standing, limited by back pain 05/18/23: unable to retest due to esophageal stenosis with dec activity tolerance today STG Duration 04/20/23 Fdc Goal (LTG) Improve Tinetti gait and balance assessment score to moderate fall risk range to improve safety in the home and community improve static standing balance to at least 60 sec LTG Duration 08/16/23 Assessment Summary Assessment Patient activity and exercise tolerance moderately decreased today due to esophageal stenosis with increased work of breathing, not all goals able to be reassessed as a result. No standing or walking activities today, decreased tolerance for other exercises as well including recumbant elliptical dec resistance from 3 to 1. Worked on supine and seated exercises. Recommend continued skilled PT to address above goals. Physical Therapy Plan Frequency and Duration Frequency of Treatment 1x/Week Duration of treatment (weeks) 12 Plan of Care Start Date 05/18/23 Plan of Care End Date 08/16/23 Therapeutic Interventions Therapeutic Interventions Balance Training,Home Exercise Program,Manual Therapy, Neuromuscular Re-education, Patient/Caregiver Education, Self-Care/Home Management,Soft Tissue Mobilization,Taping, Therapeutic Activities, Therapeutic Exercises Modalities Cold Pack/Ice Massage,Hot Packs Next Visit Focus/Plan Next Note Type Treatment Note Next Visit Plan Continue PT per POC, increase standing activities as tolerated after patient has esophageal procedure. Plan of Care Dates Plan of Care Start Date 05/18/23 Plan of Care End Date 08/16/23 Electronically Signed by: Bertha Redding, PT 05/18/23 9427 If you are in agreement with this Plan of Care, please return a signed and dated copy. I have reviewed this Plan of Care and certify that the skilled therapy services above are required to meet the patient?s needs. Physician Signature Date Printed Name and Credentials Clinical Instructor Signature Printed Name and Credentials
--- NOTE | 2023-05-25 15:17 | PT.OTN ---
Current Diagnoses Multiple sclerosis (05/25/23) Physical Therapy Treatment Note PT-OP-A Visit Information Start: 09/24/22 09:30 Freq: Status: Active Protocol: Document 05/25/23 11:08 [facility] (Rec: 05/25/23 12:03 [facility] [id number]) Out-Patient Physical Therapy Visit Information Visit Information Visit Type Treatment Note Visit Note 03/31 post PN Visit Start Time 11:15 Visit Stop Time 12:00 Visit Number 50 Evaluation Information Evaluation Date 09/24/22 Precautions Precautions MS, don't overfatigue, esophageal stenosis PT-OP-B Current Condition Start: 09/24/22 09:30 Freq: Status: Active Protocol: Document 10/05/22 12:33 [facility] (Rec: 10/05/22 13:19 [facility] [id number]) Current Condition History of Current Condition Onset Date March 2019 Current Complaints weakness due to MS, right shoulder pain, LBP History of Current Condition history MS with worsening weakness, as well as right shoulder pain (patient right handed). Patient has caregiver who assists her primarily with household tasks, HEP, walking. She uses a 4WW to walk short diestances (approx 30 feet) in the home, manual w /c for community mobility. No recent falls, but has history of falls. Reports was evaluated for power wheelchair recently but was denied. C/o right shoulder pain and tightness especially with reaching and propelling manual w/c. Well known to this PT for both land and aquatic- based PT. Prior Treatments and Tests prior PT; land and aquatic Future Testing and Treatments Planned nothing planned yet Treatment Goals Patient/Caregiver Goals improve core strength, decrease right shoulder pain, improve gait and balance PT-OP-C Subjective Start: 09/24/22 09:30 Freq: Status: Active Protocol: Document 05/25/23 11:08 [facility] (Rec: 05/25/23 12:03 [facility] [id number]) OP-PT Subjective Patient Comments Patient Comments Having surgery 06/04/23. Put on steroids for a couple weeks until surgery on throat. Feels PT has been helpful but PT-OP-D Balance Start: 09/24/22 09:30 Freq: Status: Active Protocol: Document 09/24/22 09:06 [facility] (Rec: 09/28/22 11:39 [facility] [id number]) Tinetti Balance Assessment Sitting Balance Sitting Balance Steady, safe Standing Balance Immediate Standing Balance Steady with support Turning Step Pattern Turning 360 Degrees Discontinuous steps Sitting Down Sitting Down Uses arms or unsteady Gait and Step Initiation of Gait Hesitancy, mult. attempts Right Foot Step Length Does not pass stance ft. Right Foot Step Height Does not clear floor Left Foot Step Length Does not pass stance foot Left Foot Step Height Does not clear floor Step Description Step Symmetry Step length appears equal Step Continuity Stopping or discontinuity Gait Description Path Description Mild/moderate deviation Trunk Description Marked sway or uses aide Walking Stance Heels apart Scoring and Interpretation Tinetti Composite Score (points) 5 PT-OP-E Functional Tests Start: 09/24/22 09:30 Freq: Status: Active Protocol: Document 09/24/22 09:06 [facility] (Rec: 09/28/22 11:39 [facility] [id number]) Functional Tests 2 Minute Walk Test Distance 127 Device Used 4WW PT-OP-G Mobility & Gait Start: 09/24/22 09:30 Freq: Status: Active Protocol: Document 09/24/22 09:06 [facility] (Rec: 09/28/22 11:39 [facility] [id number]) OP Mobility Evaluation Bed Mobility Supine to and from Sit indep Transfers Bed to Chair Transfers indep Car Transfers assisted Floor Transfers not performed OP Gait Assessment Gait Gait Assistance Required: Minimum Assistance Distance (Feet) 127 Assistive Devices Assistive Device Gait Belt,Front Wheeled Walker Orthotic/Prosthetic Devices or Brace: No Gait Deviations General Gait Pattern Decreased Stride Length, Decreased Feet Clearance, Flexed Trunk Factors Limiting Gait Function Factors Limiting Gait Function Abnormal Tonal Influences, Decreased Activity Tolerance, Decreased Strength,Pain Stair Climbing Evaluation Comments Stair Climbing Comments unable PT-OP-H Neuro Start: 09/24/22 09:30 Freq: Status: Active Protocol: Document 09/24/22 09:06 [facility] (Rec: 09/28/22 11:39 [facility] [id number]) Sensation Evaluation Gross Sensation Gross Sensation Left LE Impaired,Right LE Impaired,Trunk Impaired PT-OP-J Posture/Palpation/Skin Start: 09/24/22 09:30 Freq: Status: Active Protocol: Document 09/24/22 09:06 [facility] (Rec: 09/28/22 11:39 [facility] [id number]) Posture Evaluation Position Sitting Head/C-Spine Posture Forward Head Shoulder Posture (L) Rounded,(R) Rounded Shoulder Subluxation Position (L) Anterior,(R) Anterior Scapula Posture (L) Protracted,(R) Protracted Arm Posture (L) Internally Rotated,(R) Internally Rotated PT-OP-K Range of Motion Start: 09/24/22 09:30 Freq: Status: Active Protocol: Document 09/24/22 09:06 [facility] (Rec: 09/28/22 11:39 [facility] [id number]) Hip Goniometric Range of Motion Hip chelle Straight Leg Raise 145 Hip ROM Limitations Hip ROM Limitations Soft Tissue Tightness Ankle and Foot Goniometric Range of Motion Ankle and Foot chelle Dorsiflexion with Knee Flexed 0 Ankle and Foot ROM Limitations ROM Limitations Soft Tissue Tightness PT-OP-M Strength Start: 09/24/22 09:30 Freq: Status: Active Protocol: Document 09/24/22 09:31 [facility] (Rec: 09/24/22 10:22 [facility] [id number]) Trunk Strength Trunk Manual Muscle Testing Flexion 3- Fair- Extension 2+ Poor+ Rotation Left 3- Fair- Rotation Right 3- Fair- Lateral Flexion Left 3- Fair- Lateral Flexion Right 3- Fair- Scapula Strength Scapula Manual Muscle Testing chelle Elevation (C4) 4+ Good+ Adduction 3+ Fair+ Abduction 3 Fair Depression 3+ Fair+ Shoulder Strength Shoulder Manual Muscle Testing Left Flexion 4 Good Extension 4 Good Abduction (C5) 4 Good Adduction 4 Good External Rotation 4 Good Internal Rotation 4 Good Horizontal Abduction 4 Good Horizontal Adduction 4 Good Right Flexion 4 Good Extension 4 Good Abduction (C5) 4 Good Adduction 4 Good External Rotation 4 Good Internal Rotation 4 Good Horizontal Abduction 4 Good Horizontal Adduction 4 Good Elbow/Forearm Strength Elbow and Forearm Manual Muscle Testing Left Flexion (C6) 4 Good Extension (C7) 4 Good Right Comments pain with resisted flex,ab,ER Hip Strength Hip Manual Muscle Testing Left Flexion (L2) 4- Good- Abduction 3- Fair- Adduction 3+ Fair+ Right Flexion (L2) 4- Good- Abduction 2+ Poor+ Adduction 3+ Fair+ Knee Strength Knee Manual Muscle Testing Left Flexion (S2) 4 Good Extension (L3) 4 Good Right Flexion (S2) 4- Good- Extension (L3) 4- Good- Ankle/Foot Strength Ankle and Foot Manual Muscle Testing Left Dorsiflexion (L4) 3+ Fair+ Plantarflexion (S1) 3+ Fair+ Right Dorsiflexion (L4) 3+ Fair+ Plantarflexion (S1) 3+ Fair+ PT-OP-Q Treatments Start: 09/24/22 09:30 Freq: Status: Active Protocol: Document 05/25/23 11:08 [facility] (Rec: 05/25/23 12:03 [facility] [id number]) Cardio Equipment Recumbent Stepper (Sci-Fit) Duration (Minutes) 5 Resistance 1 Seat Position 13 Other 40-50 RPM, 0.47 mil Gym Equipment Therapeutic Ball bridge Ball Size/Color 55 cm green Body Position Hooklying Reps/Duration 10x heelslide Ball Size/Color 65 cm ball Body Position Hooklying Reps/Duration 10x Comments Dycem under legs heel dig Ball Size/Color 65 cm green Reps/Duration 10x LTR Ball Size/Color 65 cm green Body Position Hooklying Reps/Duration 10x Therapeutic Exercises Supine Exercises quad stretch Reps/Minutes 2x30 Comments legs over the side of the table trunk rotation Supine Exercise Name self LS & TS stretch Side bilateral Resistance AROM Equipment Used on mat table Reps/Minutes 30 x2 each side Comments Good mid thoracic and QL stretch&ROM- post manual IT band stretch Reps/Minutes 2x30 Comments manual figure 4 Side bilateral Resistance AROM Reps/Minutes 60 Comments good adductor/hip flexor stretch piriformis stretch Side bilateral Reps/Minutes 60 Comments manual HC stretch Supine Exercise Name added to HEP Side bilateral Equipment Used mesh chair Reps/Minutes 30 Comments Cued scoot front seat, hip hinge, LE front hip flexor stretch Side bilateral Resistance mat table BLEs off edge ( perpendicular to EOtable) Reps/Minutes 30-60 Comments good feedback hip flexor stretch Sitting Exercises rows, shoulder ext Resistance L2 TB Equipment Used seated on [employer]adisc Reps/Minutes 10x trunk flexion Resistance TB #3 Equipment Used sitting on [employer]adisc (blue) Reps/Minutes x15 hamstring curl Resistance L2 TB Reps/Minutes 10x Comments cued pull back fully resisted trunk rotation Sitting Exercise Name rotation Side bilateral Resistance L2 TB, therapist anchored Reps/Minutes x15 Gait Training Gait Activity //bars Description side stepping //bars Treatment Focus 10 ft x1.5 laps seated rest between lengths x2 Comments cued TKE FWW Comments held, patient not feeling up to it due to inc work of breathing Neuro Re-Education Treatment Balance Activities standing balance bars Details stationary, wt shift Equipment //bars, GB Comments 3x30 PT-OP-T Assessment and Plan Start: 09/24/22 09:30 Freq: Status: Active Protocol: Document 05/25/23 11:08 [facility] (Rec: 05/25/23 12:03 [facility] [id number]) Physical Therapy Assessment Goals Three Impairment pain right shoulder and low back Impairment diffiuculty performing ADL's due to pain and pain in right shoulder limits gait due to heavy use of walker Fpc Goal (LTG) Patient to report at least 50% decrease in pain with all usual activities and be independent with HEP for purposes of core stab, shoulder strengthening and stab 12/24/22: patient reported decrease in shoulder pain during vacation with not having to wheel herself (used power w/c), but has increased since starting to wheel again. Dec c/o LBP. Goal progress 02/18/23: reports decrease in shoulder pain to 0-4/10. Hadn 't been having back pain until exacerbation 2 weeks ago which appears QL. 05/18/23: goal progress with both shoulder and back pain LTG Duration 08/16/23 One Impairment gait dysfunction Impairment 2 min walk test 127 ft, not able to tolerate 6 min walk test due to fatigue UE's from supporting body on walker and LE fatigue requiring 2 brief standing breaks, needing to stop at 2 min Short Term Goal (STG) Improve 2 min walk test to at least 150 ft as measure of improved functional gait 12/24/22: only able to ambulate 75 ft today and experienced giving way of left knee half-way through gait requiring mod assist to correct. 02/18/23: 2 min walk test 68 ft today, limited due to back pain and left leg giving way requiring her to sit 05/18/23: goal abandoned. See LTG STG Duration 06/21/23 Fpc Goal (LTG) Patient able to tolerate 6 min walk test with gait distance of at least 300 ft as measure of improved functional gait 05/18/23: goal modification due to inability to reach this goal: New goal: patient able to tolerate 3 min walk test and walk a distance of at least 150 feet. (current max is 109 ft) LTG Duration 08/16/23 Four Impairment weakness Impairment 5x sit to stand test 15 sec with moderate use of hands moderate core muscle weakness with less than anti-gravity strength Short Term Goal (STG) Patient to be independent and compliant with updated HEP for purposes of LE and trunk muscle strengthening 12/24/22: patient was on vacation 1 month, not as compliant, noting dec functional strength today. HEP has been updated. Goal progress 02/18/23: patient compliant with HEP, ongoing progression STG Duration goal met Fpc Goal (LTG) Patient able to perform 5x sit to stand test in 10 sec as measure of improved functional LE strength and demonstrate 1 grade improvement in trunk muscle strength for improved safety with ADL performance 02/18/23: 10 sec today with 5x sit to stand. Noting improved functional core strength, good goal progress 05/18/23: not able to retest due to patient activity intolerance today due to esophageal stenosis LTG Duration 08/16/23 Two Impairment balance dysfunction Impairment Tinetti gait and balance assessment 11/16 indicating patient at high risk for falls static standing 44 sec without holding on Short Term Goal (STG) Patient to be independent and compliant with gait and balance HEP 12/24/22: as above not as compliant to HEP and not ambulating while on vacation 02/18/23: 41 sec standing, limited by back pain 05/18/23: unable to retest due to esophageal stenosis with dec activity tolerance today STG Duration 04/20/23 Publications Manager Goal (LTG) Improve Tinetti gait and balance assessment score to moderate fall risk range to improve safety in the home and community improve static standing balance to at least 60 sec LTG Duration 08/16/23 Assessment Summary Assessment Patient has surgery scheduled due to esophageal stricture. Fair tolerance for ther ex, didn't feel up to gait. Physical Therapy Plan Frequency and Duration Frequency of Treatment 1x/Week Duration of treatment (weeks) 12 Plan of Care Start Date 05/18/23 Plan of Care End Date 08/16/23 Therapeutic Interventions Therapeutic Interventions Balance Training,Home Exercise Program,Manual Therapy, Neuromuscular Re-education, Patient/Caregiver Education, Self-Care/Home Management,Soft Tissue Mobilization,Taping, Therapeutic Activities, Therapeutic Exercises Modalities Cold Pack/Ice Massage,Hot Packs Next Visit Focus/Plan Next Note Type Treatment Note Next Visit Plan Continue PT per POC, increase standing activities as tolerated after patient has esophageal procedure.
--- NOTE | 2023-06-16 16:20 | PT.OTN ---
Current Diagnoses Multiple sclerosis (06/16/23) Physical Therapy Treatment Note PT-OP-A Visit Information Start: 09/24/22 09:30 Freq: Status: Active Protocol: Document 06/16/23 15:12 SAK (Rec: 06/16/23 16:20 [facility] [id number]) Out-Patient Physical Therapy Visit Information Visit Information Visit Type Treatment Note Visit Note 05/01 post PN Visit Start Time 15:15 Visit Stop Time 16:00 Visit Number 50 Evaluation Information Evaluation Date 09/24/22 Precautions Precautions MS, don't overfatigue, esophageal stenosis PT-OP-B Current Condition Start: 09/24/22 09:30 Freq: Status: Active Protocol: Document 10/05/22 12:33 SAK (Rec: 10/05/22 13:19 [facility] [id number]) Current Condition History of Current Condition Onset Date March 2019 Current Complaints weakness due to MS, right shoulder pain, LBP History of Current Condition history MS with worsening weakness, as well as right shoulder pain (patient right handed). Patient has caregiver who assists her primarily with household tasks, HEP, walking. She uses a 4WW to walk short diestances (approx 30 feet) in the home, manual w /c for community mobility. No recent falls, but has history of falls. Reports was evaluated for power wheelchair recently but was denied. C/o right shoulder pain and tightness especially with reaching and propelling manual w/c. Well known to this PT for both land and aquatic- based PT. Prior Treatments and Tests prior PT; land and aquatic Future Testing and Treatments Planned nothing planned yet Treatment Goals Patient/Caregiver Goals improve core strength, decrease right shoulder pain, improve gait and balance PT-OP-C Subjective Start: 09/24/22 09:30 Freq: Status: Active Protocol: Document 06/16/23 15:12 SAK (Rec: 06/16/23 16:20 [facility] [id number]) OP-PT Subjective Patient Comments Patient Comments surgery for espophagus 06/04/23 . Just finished antibiotics yesterday. Energy level not quite back up yet. Had a migraine last Wednesday. No caregiver last week due to caregiver illness. PT-OP-D Balance Start: 09/24/22 09:30 Freq: Status: Active Protocol: Document 09/24/22 09:06 SAK (Rec: 09/28/22 11:39 [facility] [id number]) Tinetti Balance Assessment Sitting Balance Sitting Balance Steady, safe Standing Balance Immediate Standing Balance Steady with support Turning Step Pattern Turning 360 Degrees Discontinuous steps Sitting Down Sitting Down Uses arms or unsteady Gait and Step Initiation of Gait Hesitancy, mult. attempts Right Foot Step Length Does not pass stance ft. Right Foot Step Height Does not clear floor Left Foot Step Length Does not pass stance foot Left Foot Step Height Does not clear floor Step Description Step Symmetry Step length appears equal Step Continuity Stopping or discontinuity Gait Description Path Description Mild/moderate deviation Trunk Description Marked sway or uses aide Walking Stance Heels apart Scoring and Interpretation Tinetti Composite Score (points) 5 PT-OP-E Functional Tests Start: 09/24/22 09:30 Freq: Status: Active Protocol: Document 09/24/22 09:06 [facility] (Rec: 09/28/22 11:39 [facility] [id number]) Functional Tests 2 Minute Walk Test Distance 127 Device Used 4WW PT-OP-G Mobility & Gait Start: 09/24/22 09:30 Freq: Status: Active Protocol: Document 09/24/22 09:06 [facility] (Rec: 09/28/22 11:39 [facility] [id number]) OP Mobility Evaluation Bed Mobility Supine to and from Sit indep Transfers Bed to Chair Transfers indep Car Transfers assisted Floor Transfers not performed OP Gait Assessment Gait Gait Assistance Required: Minimum Assistance Distance (Feet) 127 Assistive Devices Assistive Device Gait Belt,Front Wheeled Walker Orthotic/Prosthetic Devices or Brace: No Gait Deviations General Gait Pattern Decreased Stride Length, Decreased Feet Clearance, Flexed Trunk Factors Limiting Gait Function Factors Limiting Gait Function Abnormal Tonal Influences, Decreased Activity Tolerance, Decreased Strength,Pain Stair Climbing Evaluation Comments Stair Climbing Comments unable PT-OP-H Neuro Start: 09/24/22 09:30 Freq: Status: Active Protocol: Document 09/24/22 09:06 [facility] (Rec: 09/28/22 11:39 [facility] [id number]) Sensation Evaluation Gross Sensation Gross Sensation Left LE Impaired,Right LE Impaired,Trunk Impaired PT-OP-J Posture/Palpation/Skin Start: 09/24/22 09:30 Freq: Status: Active Protocol: Document 09/24/22 09:06 [facility] (Rec: 09/28/22 11:39 [facility] [id number]) Posture Evaluation Position Sitting Head/C-Spine Posture Forward Head Shoulder Posture (L) Rounded,(R) Rounded Shoulder Subluxation Position (L) Anterior,(R) Anterior Scapula Posture (L) Protracted,(R) Protracted Arm Posture (L) Internally Rotated,(R) Internally Rotated PT-OP-K Range of Motion Start: 09/24/22 09:30 Freq: Status: Active Protocol: Document 09/24/22 09:06 [facility] (Rec: 09/28/22 11:39 [facility] [id number]) Hip Goniometric Range of Motion Hip chelle Straight Leg Raise 145 Hip ROM Limitations Hip ROM Limitations Soft Tissue Tightness Ankle and Foot Goniometric Range of Motion Ankle and Foot chelle Dorsiflexion with Knee Flexed 0 Ankle and Foot ROM Limitations ROM Limitations Soft Tissue Tightness PT-OP-M Strength Start: 09/24/22 09:30 Freq: Status: Active Protocol: Document 09/24/22 09:31 [facility] (Rec: 09/24/22 10:22 [facility] [id number]) Trunk Strength Trunk Manual Muscle Testing Flexion 3- Fair- Extension 2+ Poor+ Rotation Left 3- Fair- Rotation Right 3- Fair- Lateral Flexion Left 3- Fair- Lateral Flexion Right 3- Fair- Scapula Strength Scapula Manual Muscle Testing chelle Elevation (C4) 4+ Good+ Adduction 3+ Fair+ Abduction 3 Fair Depression 3+ Fair+ Shoulder Strength Shoulder Manual Muscle Testing Left Flexion 4 Good Extension 4 Good Abduction (C5) 4 Good Adduction 4 Good External Rotation 4 Good Internal Rotation 4 Good Horizontal Abduction 4 Good Horizontal Adduction 4 Good Right Flexion 4 Good Extension 4 Good Abduction (C5) 4 Good Adduction 4 Good External Rotation 4 Good Internal Rotation 4 Good Horizontal Abduction 4 Good Horizontal Adduction 4 Good Elbow/Forearm Strength Elbow and Forearm Manual Muscle Testing Left Flexion (C6) 4 Good Extension (C7) 4 Good Right Comments pain with resisted flex,ab,ER Hip Strength Hip Manual Muscle Testing Left Flexion (L2) 4- Good- Abduction 3- Fair- Adduction 3+ Fair+ Right Flexion (L2) 4- Good- Abduction 2+ Poor+ Adduction 3+ Fair+ Knee Strength Knee Manual Muscle Testing Left Flexion (S2) 4 Good Extension (L3) 4 Good Right Flexion (S2) 4- Good- Extension (L3) 4- Good- Ankle/Foot Strength Ankle and Foot Manual Muscle Testing Left Dorsiflexion (L4) 3+ Fair+ Plantarflexion (S1) 3+ Fair+ Right Dorsiflexion (L4) 3+ Fair+ Plantarflexion (S1) 3+ Fair+ PT-OP-Q Treatments Start: 09/24/22 09:30 Freq: Status: Active Protocol: Document 06/16/23 15:12 [facility] (Rec: 06/16/23 16:20 [facility] [id number]) Cardio Equipment Recumbent Stepper (Sci-Fit) Duration (Minutes) 5 Resistance 1 Seat Position 13 Other 40-50 RPM, 0. mil Gym Equipment Therapeutic Ball bridge Ball Size/Color 55 cm green Body Position Hooklying Reps/Duration 10x heelslide Ball Size/Color 65 cm ball Body Position Hooklying Reps/Duration 10x Comments Dycem under legs heel dig Ball Size/Color 65 cm green Reps/Duration 10x LTR Ball Size/Color 65 cm green Body Position Hooklying Reps/Duration 10x Therapeutic Exercises Supine Exercises heel dig Equipment Used 65 cm therapy ball Reps/Minutes 10x quad stretch Reps/Minutes 2x30 Comments legs over the side of the table trunk rotation Supine Exercise Name self LS & TS stretch Side bilateral Resistance AROM Equipment Used on mat table Reps/Minutes 30 x2 each side Comments Good mid thoracic and QL stretch&ROM- post manual IT band stretch Reps/Minutes 2x30 Comments manual figure 4 Side bilateral Resistance AROM Reps/Minutes 60 Comments good adductor/hip flexor stretch piriformis stretch Side bilateral Reps/Minutes 60 Comments manual HC stretch Supine Exercise Name added to HEP Side bilateral Equipment Used mesh chair Reps/Minutes 30 Comments Cued scoot front seat, hip hinge, LE front hip flexor stretch Side bilateral Resistance mat table BLEs off edge ( perpendicular to EOtable) Reps/Minutes 30-60 Comments good feedback hip flexor stretch Gait Training Gait Activity //bars Treatment Focus 10 ft x 2 Comments fatigued quickly with legs giving away FWW Level of Assistance CG to min assist Distance/Duration 5 ft Comments stopped due to legs giving way Neuro Re-Education Treatment Balance Activities standing balance bars Details stationary, wt shift Equipment //bars, GB Comments 1x30 PT-OP-T Assessment and Plan Start: 09/24/22 09:30 Freq: Status: Active Protocol: Document 06/16/23 15:12 [facility] (Rec: 06/16/23 16:20 [facility] [id number]) Physical Therapy Assessment Goals Three Impairment pain right shoulder and low back Impairment diffiuculty performing ADL's due to pain and pain in right shoulder limits gait due to heavy use of walker Snf Goal (LTG) Patient to report at least 50% decrease in pain with all usual activities and be independent with HEP for purposes of core stab, shoulder strengthening and stab 12/24/22: patient reported decrease in shoulder pain during vacation with not having to wheel herself (used power w/c), but has increased since starting to wheel again. Dec c/o LBP. Goal progress 02/18/23: reports decrease in shoulder pain to 0-4/10. Hadn 't been having back pain until exacerbation 2 weeks ago which appears QL. 05/18/23: goal progress with both shoulder and back pain LTG Duration 08/16/23 One Impairment gait dysfunction Impairment 2 min walk test 127 ft, not able to tolerate 6 min walk test due to fatigue UE's from supporting body on walker and LE fatigue requiring 2 brief standing breaks, needing to stop at 2 min Short Term Goal (STG) Improve 2 min walk test to at least 150 ft as measure of improved functional gait 12/24/22: only able to ambulate 75 ft today and experienced giving way of left knee [facility] through gait requiring mod assist to correct. 02/18/23: 2 min walk test 68 ft today, limited due to back pain and left leg giving way requiring her to sit 05/18/23: goal abandoned. See LTG STG Duration 06/21/23 Snf Goal (LTG) Patient able to tolerate 6 min walk test with gait distance of at least 300 ft as measure of improved functional gait 05/18/23: goal modification due to inability to reach this goal: New goal: patient able to tolerate 3 min walk test and walk a distance of at least 150 feet. (current max is 109 ft) LTG Duration 08/16/23 Four Impairment weakness Impairment 5x sit to stand test 15 sec with moderate use of hands moderate core muscle weakness with less than anti-gravity strength Short Term Goal (STG) Patient to be independent and compliant with updated HEP for purposes of LE and trunk muscle strengthening 12/24/22: patient was on vacation 1 month, not as compliant, noting dec functional strength today. HEP has been updated. Goal progress 02/18/23: patient compliant with HEP, ongoing progression STG Duration goal met Snf Goal (LTG) Patient able to perform 5x sit to stand test in 10 sec as measure of improved functional LE strength and demonstrate 1 grade improvement in trunk muscle strength for improved safety with ADL performance 02/18/23: 10 sec today with 5x sit to stand. Noting improved functional core strength, good goal progress 05/18/23: not able to retest due to patient activity intolerance today due to esophageal stenosis LTG Duration 08/16/23 Two Impairment balance dysfunction Impairment Tinetti gait and balance assessment 11/16 indicating patient at high risk for falls static standing 44 sec without holding on Short Term Goal (STG) Patient to be independent and compliant with gait and balance HEP 12/24/22: as above not as compliant to HEP and not ambulating while on vacation 02/18/23: 41 sec standing, limited by back pain 05/18/23: unable to retest due to esophageal stenosis with dec activity tolerance today STG Duration 04/20/23 Snf Goal (LTG) Improve Tinetti gait and balance assessment score to moderate fall risk range to improve safety in the home and community improve static standing balance to at least 60 sec LTG Duration 08/16/23 Assessment Summary Assessment Patient function declined due to surgery recovery fatigue, lack of caregiver assist last week. After gait training 5 ft with FWW and need to sit due to legs giving way, did small amount further standing and walking in parallel bars. Physical Therapy Plan Frequency and Duration Frequency of Treatment 1x/Week Duration of treatment (weeks) 12 Plan of Care Start Date 05/18/23 Plan of Care End Date 08/16/23 Therapeutic Interventions Therapeutic Interventions Balance Training,Home Exercise Program,Manual Therapy, Neuromuscular Re-education, Patient/Caregiver Education, Self-Care/Home Management,Soft Tissue Mobilization,Taping, Therapeutic Activities, Therapeutic Exercises Modalities Cold Pack/Ice Massage,Hot Packs Next Visit Focus/Plan Next Note Type Treatment Note Next Visit Plan Gait training, closed chain exercises as tolerated. Core and LE strengthening and flexibility
--- NOTE | 2023-06-23 15:21 | PT.OTN ---
Current Diagnoses Multiple sclerosis (06/23/23) Physical Therapy Treatment Note PT-OP-A Visit Information Start: 09/24/22 09:30 Freq: Status: Active Protocol: Document 06/23/23 14:28 [facility] (Rec: 06/23/23 15:21 [facility] [id number]) Out-Patient Physical Therapy Visit Information Visit Information Visit Type Treatment Note Visit Note 05/29 post PN Visit Start Time 02:30 Visit Stop Time 16:00 Visit Number 50 Evaluation Information Evaluation Date 09/24/22 Precautions Precautions MS, don't overfatigue, esophageal stenosis PT-OP-B Current Condition Start: 09/24/22 09:30 Freq: Status: Active Protocol: Document 10/05/22 12:33 [facility]AK (Rec: 10/05/22 13:19 [facility] [id number]) Current Condition History of Current Condition Onset Date March 2019 Current Complaints weakness due to MS, right shoulder pain, LBP History of Current Condition history MS with worsening weakness, as well as right shoulder pain (patient right handed). Patient has caregiver who assists her primarily with household tasks, HEP, walking. She uses a 4WW to walk short diestances (approx 30 feet) in the home, manual w /c for community mobility. No recent falls, but has history of falls. Reports was evaluated for power wheelchair recently but was denied. C/o right shoulder pain and tightness especially with reaching and propelling manual w/c. Well known to this PT for both land and aquatic- based PT. Prior Treatments and Tests prior PT; land and aquatic Future Testing and Treatments Planned nothing planned yet Treatment Goals Patient/Caregiver Goals improve core strength, decrease right shoulder pain, improve gait and balance PT-OP-C Subjective Start: 09/24/22 09:30 Freq: Status: Active Protocol: Document 06/23/23 14:28 [facility] (Rec: 06/23/23 15:21 [facility] [id number]) OP-PT Subjective Patient Comments Patient Comments Gone out of town over the weekend so was in small power w/c, was looking up to talk with people a lot, neck and shoulders sore. Lack of sleep , fatigued. PT-OP-D Balance Start: 09/24/22 09:30 Freq: Status: Active Protocol: Document 09/24/22 09:06 [facility] (Rec: 09/28/22 11:39 [facility] [id number]) Tinetti Balance Assessment Sitting Balance Sitting Balance Steady, safe Standing Balance Immediate Standing Balance Steady with support Turning Step Pattern Turning 360 Degrees Discontinuous steps Sitting Down Sitting Down Uses arms or unsteady Gait and Step Initiation of Gait Hesitancy, mult. attempts Right Foot Step Length Does not pass stance ft. Right Foot Step Height Does not clear floor Left Foot Step Length Does not pass stance foot Left Foot Step Height Does not clear floor Step Description Step Symmetry Step length appears equal Step Continuity Stopping or discontinuity Gait Description Path Description Mild/moderate deviation Trunk Description Marked sway or uses aide Walking Stance Heels apart Scoring and Interpretation Tinetti Composite Score (points) 5 PT-OP-E Functional Tests Start: 09/24/22 09:30 Freq: Status: Active Protocol: Document 09/24/22 09:06 [facility] (Rec: 09/28/22 11:39 [facility] [id number]) Functional Tests 2 Minute Walk Test Distance 127 Device Used 4WW PT-OP-G Mobility & Gait Start: 09/24/22 09:30 Freq: Status: Active Protocol: Document 09/24/22 09:06 [facility] (Rec: 09/28/22 11:39 [facility] [id number]) OP Mobility Evaluation Bed Mobility Supine to and from Sit indep Transfers Bed to Chair Transfers indep Car Transfers assisted Floor Transfers not performed OP Gait Assessment Gait Gait Assistance Required: Minimum Assistance Distance (Feet) 127 Assistive Devices Assistive Device Gait Belt,Front Wheeled Walker Orthotic/Prosthetic Devices or Brace: No Gait Deviations General Gait Pattern Decreased Stride Length, Decreased Feet Clearance, Flexed Trunk Factors Limiting Gait Function Factors Limiting Gait Function Abnormal Tonal Influences, Decreased Activity Tolerance, Decreased Strength,Pain Stair Climbing Evaluation Comments Stair Climbing Comments unable PT-OP-H Neuro Start: 09/24/22 09:30 Freq: Status: Active Protocol: Document 09/24/22 09:06 [facility] (Rec: 09/28/22 11:39 [facility] [id number]) Sensation Evaluation Gross Sensation Gross Sensation Left LE Impaired,Right LE Impaired,Trunk Impaired PT-OP-J Posture/Palpation/Skin Start: 09/24/22 09:30 Freq: Status: Active Protocol: Document 09/24/22 09:06 [facility] (Rec: 09/28/22 11:39 [facility] [id number]) Posture Evaluation Position Sitting Head/C-Spine Posture Forward Head Shoulder Posture (L) Rounded,(R) Rounded Shoulder Subluxation Position (L) Anterior,(R) Anterior Scapula Posture (L) Protracted,(R) Protracted Arm Posture (L) Internally Rotated,(R) Internally Rotated PT-OP-K Range of Motion Start: 09/24/22 09:30 Freq: Status: Active Protocol: Document 09/24/22 09:06 [facility] (Rec: 09/28/22 11:39 [facility] [id number]) Hip Goniometric Range of Motion Hip chelle Straight Leg Raise 145 Hip ROM Limitations Hip ROM Limitations Soft Tissue Tightness Ankle and Foot Goniometric Range of Motion Ankle and Foot chelle Dorsiflexion with Knee Flexed 0 Ankle and Foot ROM Limitations ROM Limitations Soft Tissue Tightness PT-OP-M Strength Start: 09/24/22 09:30 Freq: Status: Active Protocol: Document 09/24/22 09:31 [facility] (Rec: 09/24/22 10:22 [facility] [id number]) Trunk Strength Trunk Manual Muscle Testing Flexion 3- Fair- Extension 2+ Poor+ Rotation Left 3- Fair- Rotation Right 3- Fair- Lateral Flexion Left 3- Fair- Lateral Flexion Right 3- Fair- Scapula Strength Scapula Manual Muscle Testing chelle Elevation (C4) 4+ Good+ Adduction 3+ Fair+ Abduction 3 Fair Depression 3+ Fair+ Shoulder Strength Shoulder Manual Muscle Testing Left Flexion 4 Good Extension 4 Good Abduction (C5) 4 Good Adduction 4 Good External Rotation 4 Good Internal Rotation 4 Good Horizontal Abduction 4 Good Horizontal Adduction 4 Good Right Flexion 4 Good Extension 4 Good Abduction (C5) 4 Good Adduction 4 Good External Rotation 4 Good Internal Rotation 4 Good Horizontal Abduction 4 Good Horizontal Adduction 4 Good Elbow/Forearm Strength Elbow and Forearm Manual Muscle Testing Left Flexion (C6) 4 Good Extension (C7) 4 Good Right Comments pain with resisted flex,ab,ER Hip Strength Hip Manual Muscle Testing Left Flexion (L2) 4- Good- Abduction 3- Fair- Adduction 3+ Fair+ Right Flexion (L2) 4- Good- Abduction 2+ Poor+ Adduction 3+ Fair+ Knee Strength Knee Manual Muscle Testing Left Flexion (S2) 4 Good Extension (L3) 4 Good Right Flexion (S2) 4- Good- Extension (L3) 4- Good- Ankle/Foot Strength Ankle and Foot Manual Muscle Testing Left Dorsiflexion (L4) 3+ Fair+ Plantarflexion (S1) 3+ Fair+ Right Dorsiflexion (L4) 3+ Fair+ Plantarflexion (S1) 3+ Fair+ PT-OP-Q Treatments Start: 09/24/22 09:30 Freq: Status: Active Protocol: Document 06/23/23 14:28 [facility] (Rec: 06/23/23 15:21 [facility] [id number]) Cardio Equipment Recumbent Stepper (Sci-Fit) Duration (Minutes) 5 Resistance 1 Seat Position 13 Other 40-50 RPM, 0. mil Gym Equipment Therapeutic Ball bridge Ball Size/Color 55 cm green Body Position Hooklying Reps/Duration 10x heelslide Ball Size/Color 65 cm ball Body Position Hooklying Reps/Duration 10x Comments Dycem under legs heel dig Ball Size/Color 65 cm green Reps/Duration 10x LTR Ball Size/Color 65 cm green Body Position Hooklying Reps/Duration 10x Therapeutic Exercises Supine Exercises heel dig Equipment Used 65 cm therapy ball Reps/Minutes 10x quad stretch Reps/Minutes 2x30 Comments legs over the side of the table trunk rotation Supine Exercise Name self LS & TS stretch Side bilateral Resistance AROM Equipment Used on mat table Reps/Minutes 30 x2 each side Comments Good mid thoracic and QL stretch&ROM- post manual IT band stretch Reps/Minutes 2x30 Comments manual figure 4 Side bilateral Resistance AROM Reps/Minutes 60 Comments good adductor/hip flexor stretch piriformis stretch Side bilateral Reps/Minutes 60 Comments manual HC stretch Supine Exercise Name added to HEP Side bilateral Equipment Used mesh chair Reps/Minutes 30 Comments Cued scoot front seat, hip hinge, LE front hip flexor stretch Side bilateral Resistance mat table BLEs off edge ( perpendicular to EOtable) Reps/Minutes 30-60 Comments good feedback hip flexor stretch Sitting Exercises c/s ROM Sitting Exercise Name AROM Reps/Minutes 5x lean backs Reps/Minutes 10x pec stretch Reps/Minutes 2x30 Comments green ball mid thoracic sp cat/cow Reps/Minutes 5x5 UT stretch Reps/Minutes 2x10 Gait Training Gait Activity FWW Comments no gait outside parallel bars due to patient not feeling strong enough Neuro Re-Education Treatment Balance Activities standing balance bars Details stationary, wt shift Equipment //bars, GB Comments 1x30 PT-OP-T Assessment and Plan Start: 09/24/22 09:30 Freq: Status: Active Protocol: Document 06/23/23 14:28 [facility] (Rec: 06/23/23 15:21 [facility] [id number]) Physical Therapy Assessment Goals Three Impairment pain right shoulder and low back Impairment diffiuculty performing ADL's due to pain and pain in right shoulder limits gait due to heavy use of walker Sweep Molder Goal (LTG) Patient to report at least 50% decrease in pain with all usual activities and be independent with HEP for purposes of core stab, shoulder strengthening and stab 12/24/22: patient reported decrease in shoulder pain during vacation with not having to wheel herself (used power w/c), but has increased since starting to wheel again. Dec c/o LBP. Goal progress 02/18/23: reports decrease in shoulder pain to 0-4/10. Hadn 't been having back pain until exacerbation 2 weeks ago which appears QL. 05/18/23: goal progress with both shoulder and back pain LTG Duration 08/16/23 One Impairment gait dysfunction Impairment 2 min walk test 127 ft, not able to tolerate 6 min walk test due to fatigue UE's from supporting body on walker and LE fatigue requiring 2 brief standing breaks, needing to stop at 2 min Short Term Goal (STG) Improve 2 min walk test to at least 150 ft as measure of improved functional gait 12/24/22: only able to ambulate 75 ft today and experienced giving way of left knee fci through gait requiring mod assist to correct. 02/18/23: 2 min walk test 68 ft today, limited due to back pain and left leg giving way requiring her to sit 05/18/23: goal abandoned. See LTG STG Duration 06/21/23 [facility] Goal (LTG) Patient able to tolerate 6 min walk test with gait distance of at least 300 ft as measure of improved functional gait 05/18/23: goal modification due to inability to reach this goal: New goal: patient able to tolerate 3 min walk test and walk a distance of at least 150 feet. (current max is 109 ft) LTG Duration 08/16/23 Four Impairment weakness Impairment 5x sit to stand test 15 sec with moderate use of hands moderate core muscle weakness with less than anti-gravity strength Short Term Goal (STG) Patient to be independent and compliant with updated HEP for purposes of LE and trunk muscle strengthening 12/24/22: patient was on vacation 1 month, not as compliant, noting dec functional strength today. HEP has been updated. Goal progress 02/18/23: patient compliant with HEP, ongoing progression STG Duration goal met [facility] Goal (LTG) Patient able to perform 5x sit to stand test in 10 sec as measure of improved functional LE strength and demonstrate 1 grade improvement in trunk muscle strength for improved safety with ADL performance 02/18/23: 10 sec today with 5x sit to stand. Noting improved functional core strength, good goal progress 05/18/23: not able to retest due to patient activity intolerance today due to esophageal stenosis LTG Duration 08/16/23 Two Impairment balance dysfunction Impairment Tinetti gait and balance assessment 11/16 indicating patient at high risk for falls static standing 44 sec without holding on Short Term Goal (STG) Patient to be independent and compliant with gait and balance HEP 12/24/22: as above not as compliant to HEP and not ambulating while on vacation 02/18/23: 41 sec standing, limited by back pain 05/18/23: unable to retest due to esophageal stenosis with dec activity tolerance today STG Duration 04/20/23 [facility] Goal (LTG) Improve Tinetti gait and balance assessment score to moderate fall risk range to improve safety in the home and community improve static standing balance to at least 60 sec LTG Duration 08/16/23 Assessment Summary Assessment low activity tolerance, patient wearing mask due to slight sore throat and fatigue . No Dynadisk with seated ex due to fatigue. Physical Therapy Plan Frequency and Duration Frequency of Treatment 1x/Week Duration of treatment (weeks) 12 Plan of Care Start Date 05/18/23 Plan of Care End Date 08/16/23 Therapeutic Interventions Therapeutic Interventions Balance Training,Home Exercise Program,Manual Therapy, Neuromuscular Re-education, Patient/Caregiver Education, Self-Care/Home Management,Soft Tissue Mobilization,Taping, Therapeutic Activities, Therapeutic Exercises Modalities Cold Pack/Ice Massage,Hot Packs Next Visit Focus/Plan Next Note Type Treatment Note Next Visit Plan Gait training, closed chain exercises as tolerated. Core and LE strengthening and flexibility
--- NOTE | 2023-06-29 16:29 | PT.OTN ---
Current Diagnoses Multiple sclerosis (06/29/23) Physical Therapy Treatment Note PT-OP-A Visit Information Start: 09/24/22 09:30 Freq: Status: Active Protocol: Document 06/29/23 13:02 [facility] (Rec: 06/29/23 13:52 [facility] [id number]) Out-Patient Physical Therapy Visit Information Visit Information Visit Type Treatment Note Visit Note 06/29 post PN Visit Start Time 02:30 Visit Stop Time 16:00 Visit Number 50 Evaluation Information Evaluation Date 09/24/22 Precautions Precautions MS, don't overfatigue, esophageal stenosis PT-OP-B Current Condition Start: 09/24/22 09:30 Freq: Status: Active Protocol: Document 06/29/23 13:02 [facility] (Rec: 06/29/23 13:52 [facility] [id number]) Current Condition History of Current Condition Onset Date March 2019 Current Complaints weakness due to MS, right shoulder pain, LBP History of Current Condition history MS with worsening weakness, as well as right shoulder pain (patient right handed). Patient has caregiver who assists her primarily with household tasks, HEP, walking. She uses a 4WW to walk short diestances (approx 30 feet) in the home, manual w /c for community mobility. No recent falls, but has history of falls. Reports was evaluated for power wheelchair recently but was denied. C/o right shoulder pain and tightness especially with reaching and propelling manual w/c. Well known to this PT for both land and aquatic- based PT. Prior Treatments and Tests prior PT; land and aquatic Future Testing and Treatments Planned nothing planned yet PT-OP-C Subjective Start: 09/24/22 09:30 Freq: Status: Active Protocol: Document 06/29/23 13:02 [facility] (Rec: 06/29/23 13:52 [facility] [id number]) OP-PT Subjective Patient Comments Patient Comments WEnt to her neurologist on Wednesday; discussed fatigue level and not walking as well; recommended trying to walk more to determine if dec activity level vs secondary progresive decline. Has walked more past three days, noting some improvement. PT-OP-D Balance Start: 09/24/22 09:30 Freq: Status: Active Protocol: Document 09/24/22 09:06 [facility] (Rec: 09/28/22 11:39 [facility] [id number]) Tinetti Balance Assessment Sitting Balance Sitting Balance Steady, safe Standing Balance Immediate Standing Balance Steady with support Turning Step Pattern Turning 360 Degrees Discontinuous steps Sitting Down Sitting Down Uses arms or unsteady Gait and Step Initiation of Gait Hesitancy, mult. attempts Right Foot Step Length Does not pass stance ft. Right Foot Step Height Does not clear floor Left Foot Step Length Does not pass stance foot Left Foot Step Height Does not clear floor Step Description Step Symmetry Step length appears equal Step Continuity Stopping or discontinuity Gait Description Path Description Mild/moderate deviation Trunk Description Marked sway or uses aide Walking Stance Heels apart Scoring and Interpretation Tinetti Composite Score (points) 5 PT-OP-E Functional Tests Start: 09/24/22 09:30 Freq: Status: Active Protocol: Document 09/24/22 09:06 [facility] (Rec: 09/28/22 11:39 [facility] [id number]) Functional Tests 2 Minute Walk Test Distance 127 Device Used 4WW PT-OP-G Mobility & Gait Start: 09/24/22 09:30 Freq: Status: Active Protocol: Document 09/24/22 09:06 [facility] (Rec: 09/28/22 11:39 [facility] [id number]) OP Mobility Evaluation Bed Mobility Supine to and from Sit indep Transfers Bed to Chair Transfers indep Car Transfers assisted Floor Transfers not performed OP Gait Assessment Gait Gait Assistance Required: Minimum Assistance Distance (Feet) 127 Assistive Devices Assistive Device Gait Belt,Front Wheeled Walker Orthotic/Prosthetic Devices or Brace: No Gait Deviations General Gait Pattern Decreased Stride Length, Decreased Feet Clearance, Flexed Trunk Factors Limiting Gait Function Factors Limiting Gait Function Abnormal Tonal Influences, Decreased Activity Tolerance, Decreased Strength,Pain Stair Climbing Evaluation Comments Stair Climbing Comments unable PT-OP-H Neuro Start: 09/24/22 09:30 Freq: Status: Active Protocol: Document 09/24/22 09:06 [facility] (Rec: 09/28/22 11:39 [facility] [id number]) Sensation Evaluation Gross Sensation Gross Sensation Left LE Impaired,Right LE Impaired,Trunk Impaired PT-OP-J Posture/Palpation/Skin Start: 09/24/22 09:30 Freq: Status: Active Protocol: Document 09/24/22 09:06 [facility] (Rec: 09/28/22 11:39 [facility] [id number]) Posture Evaluation Position Sitting Head/C-Spine Posture Forward Head Shoulder Posture (L) Rounded,(R) Rounded Shoulder Subluxation Position (L) Anterior,(R) Anterior Scapula Posture (L) Protracted,(R) Protracted Arm Posture (L) Internally Rotated,(R) Internally Rotated PT-OP-K Range of Motion Start: 09/24/22 09:30 Freq: Status: Active Protocol: Document 09/24/22 09:06 [facility] (Rec: 09/28/22 11:39 [facility] [id number]) Hip Goniometric Range of Motion Hip chelle Straight Leg Raise 145 Hip ROM Limitations Hip ROM Limitations Soft Tissue Tightness Ankle and Foot Goniometric Range of Motion Ankle and Foot chelle Dorsiflexion with Knee Flexed 0 Ankle and Foot ROM Limitations ROM Limitations Soft Tissue Tightness PT-OP-M Strength Start: 09/24/22 09:30 Freq: Status: Active Protocol: Document 09/24/22 09:31 [facility] (Rec: 09/24/22 10:22 [facility] [id number]) Trunk Strength Trunk Manual Muscle Testing Flexion 3- Fair- Extension 2+ Poor+ Rotation Left 3- Fair- Rotation Right 3- Fair- Lateral Flexion Left 3- Fair- Lateral Flexion Right 3- Fair- Scapula Strength Scapula Manual Muscle Testing chelle Elevation (C4) 4+ Good+ Adduction 3+ Fair+ Abduction 3 Fair Depression 3+ Fair+ Shoulder Strength Shoulder Manual Muscle Testing Left Flexion 4 Good Extension 4 Good Abduction (C5) 4 Good Adduction 4 Good External Rotation 4 Good Internal Rotation 4 Good Horizontal Abduction 4 Good Horizontal Adduction 4 Good Right Flexion 4 Good Extension 4 Good Abduction (C5) 4 Good Adduction 4 Good External Rotation 4 Good Internal Rotation 4 Good Horizontal Abduction 4 Good Horizontal Adduction 4 Good Elbow/Forearm Strength Elbow and Forearm Manual Muscle Testing Left Flexion (C6) 4 Good Extension (C7) 4 Good Right Comments pain with resisted flex,ab,ER Hip Strength Hip Manual Muscle Testing Left Flexion (L2) 4- Good- Abduction 3- Fair- Adduction 3+ Fair+ Right Flexion (L2) 4- Good- Abduction 2+ Poor+ Adduction 3+ Fair+ Knee Strength Knee Manual Muscle Testing Left Flexion (S2) 4 Good Extension (L3) 4 Good Right Flexion (S2) 4- Good- Extension (L3) 4- Good- Ankle/Foot Strength Ankle and Foot Manual Muscle Testing Left Dorsiflexion (L4) 3+ Fair+ Plantarflexion (S1) 3+ Fair+ Right Dorsiflexion (L4) 3+ Fair+ Plantarflexion (S1) 3+ Fair+ PT-OP-Q Treatments Start: 09/24/22 09:30 Freq: Status: Active Protocol: Document 06/29/23 13:02 [facility] (Rec: 06/29/23 13:52 [facility] [id number]) Cardio Equipment Recumbent Stepper (Sci-Fit) Duration (Minutes) 5 Resistance 1 Seat Position 13 Other 40-50 RPM, 0.47 mile Gym Equipment Therapeutic Ball bridge Ball Size/Color 55 cm green Body Position Hooklying Reps/Duration 10x heelslide Ball Size/Color 65 cm ball Body Position Hooklying Reps/Duration 10x Comments Dycem under legs heel dig Ball Size/Color 65 cm green Reps/Duration 10x LTR Ball Size/Color 65 cm green Body Position Hooklying Reps/Duration 10x Therapeutic Exercises Supine Exercises heel dig Equipment Used 65 cm therapy ball Reps/Minutes 10x hip abd Equipment Used slider sheet Reps/Minutes 10x quad stretch Reps/Minutes 2x30 Comments legs over the side of the table trunk rotation Supine Exercise Name self LS & TS stretch Side bilateral Resistance AROM Equipment Used on mat table Reps/Minutes 30 x2 each side Comments Good mid thoracic and QL stretch&ROM- post manual figure 4 Side bilateral Resistance AROM Reps/Minutes 60 Comments good adductor/hip flexor stretch piriformis stretch Side bilateral Reps/Minutes 60 Comments manual hip flexor stretch Side bilateral Resistance mat table BLEs off edge ( perpendicular to EOtable) Reps/Minutes 30-60 Comments good feedback hip flexor stretch Sitting Exercises rows, shoulder ext Resistance L2 TB Equipment Used seated on [employer] Reps/Minutes 10x trunk flexion Resistance TB #3 Equipment Used sitting on [employer] (blue) Reps/Minutes x15 hamstring curl Resistance L2 TB Reps/Minutes 10x Comments cued pull back fully sit<> stands Reps/Minutes 5x2 PT-OP-T Assessment and Plan Start: 09/24/22 09:30 Freq: Status: Active Protocol: Document 06/29/23 13:02 [facility] (Rec: 06/29/23 13:52 [facility] [id number]) Physical Therapy Assessment Goals Three Impairment pain right shoulder and low back Impairment diffiuculty performing ADL's due to pain and pain in right shoulder limits gait due to heavy use of walker Halfway Goal (LTG) Patient to report at least 50% decrease in pain with all usual activities and be independent with HEP for purposes of core stab, shoulder strengthening and stab 12/24/22: patient reported decrease in shoulder pain during vacation with not having to wheel herself (used power w/c), but has increased since starting to wheel again. Dec c/o LBP. Goal progress 02/18/23: reports decrease in shoulder pain to 0-4/10. Hadn 't been having back pain until exacerbation 2 weeks ago which appears QL. 05/18/23: goal progress with both shoulder and back pain LTG Duration 08/16/23 One Impairment gait dysfunction Impairment 2 min walk test 127 ft, not able to tolerate 6 min walk test due to fatigue UE's from supporting body on walker and LE fatigue requiring 2 brief standing breaks, needing to stop at 2 min Short Term Goal (STG) Improve 2 min walk test to at least 150 ft as measure of improved functional gait 12/24/22: only able to ambulate 75 ft today and experienced giving way of left knee group home through gait requiring mod assist to correct. 02/18/23: 2 min walk test 68 ft today, limited due to back pain and left leg giving way requiring her to sit 05/18/23: goal abandoned. See LTG STG Duration 06/21/23 Halfway Goal (LTG) Patient able to tolerate 6 min walk test with gait distance of at least 300 ft as measure of improved functional gait 05/18/23: goal modification due to inability to reach this goal: New goal: patient able to tolerate 3 min walk test and walk a distance of at least 150 feet. (current max is 109 ft) LTG Duration 08/16/23 Four Impairment weakness Impairment 5x sit to stand test 15 sec with moderate use of hands moderate core muscle weakness with less than anti-gravity strength Short Term Goal (STG) Patient to be independent and compliant with updated HEP for purposes of LE and trunk muscle strengthening 12/24/22: patient was on vacation 1 month, not as compliant, noting dec functional strength today. HEP has been updated. Goal progress 02/18/23: patient compliant with HEP, ongoing progression STG Duration goal met Biology Manager Goal (LTG) Patient able to perform 5x sit to stand test in 10 sec as measure of improved functional LE strength and demonstrate 1 grade improvement in trunk muscle strength for improved safety with ADL performance 02/18/23: 10 sec today with 5x sit to stand. Noting improved functional core strength, good goal progress 05/18/23: not able to retest due to patient activity intolerance today due to esophageal stenosis LTG Duration 08/16/23 Two Impairment balance dysfunction Impairment Tinetti gait and balance assessment 11/16 indicating patient at high risk for falls static standing 44 sec without holding on Short Term Goal (STG) Patient to be independent and compliant with gait and balance HEP 12/24/22: as above not as compliant to HEP and not ambulating while on vacation 02/18/23: 41 sec standing, limited by back pain 05/18/23: unable to retest due to esophageal stenosis with dec activity tolerance today STG Duration 04/20/23 Halfway Goal (LTG) Improve Tinetti gait and balance assessment score to moderate fall risk range to improve safety in the home and community improve static standing balance to at least 60 sec LTG Duration 08/16/23 Assessment Summary Assessment Patient noting improvement in gait ability with practice, noted by PT as well. Discussed floor transfers; patient unable. Plan work on transition supine to all 4's on mat table for functional activity retraining and strengthening. Physical Therapy Plan Frequency and Duration Frequency of Treatment 1x/Week Duration of treatment (weeks) 12 Plan of Care Start Date 05/18/23 Plan of Care End Date 08/16/23 Therapeutic Interventions Therapeutic Interventions Balance Training,Home Exercise Program,Manual Therapy, Neuromuscular Re-education, Patient/Caregiver Education, Self-Care/Home Management,Soft Tissue Mobilization,Taping, Therapeutic Activities, Therapeutic Exercises Modalities Cold Pack/Ice Massage,Hot Packs Next Visit Focus/Plan Next Note Type Treatment Note Next Visit Plan Gait training, closed chain exercises as tolerated. Core and LE strengthening and flexibility. Work on transition supine to all 4's on large mat
--- NOTE | 2023-07-07 16:19 | PT.OTN ---
Current Diagnoses Multiple sclerosis (07/07/23) Physical Therapy Treatment Note PT-OP-A Visit Information Start: 09/24/22 09:30 Freq: Status: Active Protocol: Document 07/07/23 14:29 [facility] (Rec: 07/07/23 15:33 [facility] [id number]) Out-Patient Physical Therapy Visit Information Visit Information Visit Type Treatment Note Visit Note 5/10 post PN Visit Start Time 02:30 Visit Stop Time 03:15 Visit Number [id number] Evaluation Information Evaluation Date 09/24/22 Precautions Precautions MS, don't overfatigue, esophageal stenosis PT-OP-B Current Condition Start: 09/24/22 09:30 Freq: Status: Active Protocol: Document 07/07/23 14:29 [facility] (Rec: 07/07/23 15:33 [facility] [id number]) Current Condition History of Current Condition Onset Date March 2019 Current Complaints weakness due to MS, right shoulder pain, LBP History of Current Condition history MS with worsening weakness, as well as right shoulder pain (patient right handed). Patient has caregiver who assists her primarily with household tasks, HEP, walking. She uses a 4WW to walk short diestances (approx 30 feet) in the home, manual w /c for community mobility. No recent falls, but has history of falls. Reports was evaluated for power wheelchair recently but was denied. C/o right shoulder pain and tightness especially with reaching and propelling manual w/c. Well known to this PT for both land and aquatic- based PT. Prior Treatments and Tests prior PT; land and aquatic Future Testing and Treatments Planned nothing planned yet PT-OP-C Subjective Start: 09/24/22 09:30 Freq: Status: Active Protocol: Document 07/07/23 14:29 [facility] (Rec: 07/07/23 15:33 [facility] [id number]) OP-PT Subjective Patient Comments Patient Comments Trying to walk more, hasn't been able to since Wednesday PT-OP-D Balance Start: 09/24/22 09:30 Freq: Status: Active Protocol: Document 09/24/22 09:06 [facility] (Rec: 09/28/22 11:39 [facility] [id number]) Tinetti Balance Assessment Sitting Balance Sitting Balance Steady, safe Standing Balance Immediate Standing Balance Steady with support Turning Step Pattern Turning 360 Degrees Discontinuous steps Sitting Down Sitting Down Uses arms or unsteady Gait and Step Initiation of Gait Hesitancy, mult. attempts Right Foot Step Length Does not pass stance ft. Right Foot Step Height Does not clear floor Left Foot Step Length Does not pass stance foot Left Foot Step Height Does not clear floor Step Description Step Symmetry Step length appears equal Step Continuity Stopping or discontinuity Gait Description Path Description Mild/moderate deviation Trunk Description Marked sway or uses aide Walking Stance Heels apart Scoring and Interpretation Tinetti Composite Score (points) 5 PT-OP-E Functional Tests Start: 09/24/22 09:30 Freq: Status: Active Protocol: Document 09/24/22 09:06 [facility] (Rec: 09/28/22 11:39 [facility] [id number]) Functional Tests 2 Minute Walk Test Distance 127 Device Used 4WW PT-OP-G Mobility & Gait Start: 09/24/22 09:30 Freq: Status: Active Protocol: Document 09/24/22 09:06 [facility] (Rec: 09/28/22 11:39 [facility] [id number]) OP Mobility Evaluation Bed Mobility Supine to and from Sit indep Transfers Bed to Chair Transfers indep Car Transfers assisted Floor Transfers not performed OP Gait Assessment Gait Gait Assistance Required: Minimum Assistance Distance (Feet) 127 Assistive Devices Assistive Device Gait Belt,Front Wheeled Walker Orthotic/Prosthetic Devices or Brace: No Gait Deviations General Gait Pattern Decreased Stride Length, Decreased Feet Clearance, Flexed Trunk Factors Limiting Gait Function Factors Limiting Gait Function Abnormal Tonal Influences, Decreased Activity Tolerance, Decreased Strength,Pain Stair Climbing Evaluation Comments Stair Climbing Comments unable PT-OP-H Neuro Start: 09/24/22 09:30 Freq: Status: Active Protocol: Document 09/24/22 09:06 [facility] (Rec: 09/28/22 11:39 [facility] [id number]) Sensation Evaluation Gross Sensation Gross Sensation Left LE Impaired,Right LE Impaired,Trunk Impaired PT-OP-J Posture/Palpation/Skin Start: 09/24/22 09:30 Freq: Status: Active Protocol: Document 09/24/22 09:06 [facility] (Rec: 09/28/22 11:39 [facility] [id number]) Posture Evaluation Position Sitting Head/C-Spine Posture Forward Head Shoulder Posture (L) Rounded,(R) Rounded Shoulder Subluxation Position (L) Anterior,(R) Anterior Scapula Posture (L) Protracted,(R) Protracted Arm Posture (L) Internally Rotated,(R) Internally Rotated PT-OP-K Range of Motion Start: 09/24/22 09:30 Freq: Status: Active Protocol: Document 09/24/22 09:06 [facility] (Rec: 09/28/22 11:39 [facility] [id number]) Hip Goniometric Range of Motion Hip chelle Straight Leg Raise 145 Hip ROM Limitations Hip ROM Limitations Soft Tissue Tightness Ankle and Foot Goniometric Range of Motion Ankle and Foot chelle Dorsiflexion with Knee Flexed 0 Ankle and Foot ROM Limitations ROM Limitations Soft Tissue Tightness PT-OP-M Strength Start: 09/24/22 09:30 Freq: Status: Active Protocol: Document 09/24/22 09:31 [facility] (Rec: 09/24/22 10:22 [facility] [id number]) Trunk Strength Trunk Manual Muscle Testing Flexion 3- Fair- Extension 2+ Poor+ Rotation Left 3- Fair- Rotation Right 3- Fair- Lateral Flexion Left 3- Fair- Lateral Flexion Right 3- Fair- Scapula Strength Scapula Manual Muscle Testing chelle Elevation (C4) 4+ Good+ Adduction 3+ Fair+ Abduction 3 Fair Depression 3+ Fair+ Shoulder Strength Shoulder Manual Muscle Testing Left Flexion 4 Good Extension 4 Good Abduction (C5) 4 Good Adduction 4 Good External Rotation 4 Good Internal Rotation 4 Good Horizontal Abduction 4 Good Horizontal Adduction 4 Good Right Flexion 4 Good Extension 4 Good Abduction (C5) 4 Good Adduction 4 Good External Rotation 4 Good Internal Rotation 4 Good Horizontal Abduction 4 Good Horizontal Adduction 4 Good Elbow/Forearm Strength Elbow and Forearm Manual Muscle Testing Left Flexion (C6) 4 Good Extension (C7) 4 Good Right Comments pain with resisted flex,ab,ER Hip Strength Hip Manual Muscle Testing Left Flexion (L2) 4- Good- Abduction 3- Fair- Adduction 3+ Fair+ Right Flexion (L2) 4- Good- Abduction 2+ Poor+ Adduction 3+ Fair+ Knee Strength Knee Manual Muscle Testing Left Flexion (S2) 4 Good Extension (L3) 4 Good Right Flexion (S2) 4- Good- Extension (L3) 4- Good- Ankle/Foot Strength Ankle and Foot Manual Muscle Testing Left Dorsiflexion (L4) 3+ Fair+ Plantarflexion (S1) 3+ Fair+ Right Dorsiflexion (L4) 3+ Fair+ Plantarflexion (S1) 3+ Fair+ PT-OP-Q Treatments Start: 09/24/22 09:30 Freq: Status: Active Protocol: Document 07/07/23 14:29 [facility] (Rec: 07/07/23 15:33 [facility] [id number]) Cardio Equipment Recumbent Stepper (Sci-Fit) Duration (Minutes) 5 Resistance 1 Seat Position 13 Other 40-50 RPM, 0.46 mile Therapeutic Activity Therapeutic Activity sit to prone to all 4's Reps/Minutes 1x Comments min assist. Gait Training Gait Activity //bars Treatment Focus 10 ft x 2 Comments fatigued quickly with legs giving away PT-OP-T Assessment and Plan Start: 09/24/22 09:30 Freq: Status: Active Protocol: Document 07/07/23 14:29 [facility] (Rec: 07/07/23 15:33 [facility] [id number]) Physical Therapy Assessment Goals Three Impairment pain right shoulder and low back Impairment diffiuculty performing ADL's due to pain and pain in right shoulder limits gait due to heavy use of walker Alf Goal (LTG) Patient to report at least 50% decrease in pain with all usual activities and be independent with HEP for purposes of core stab, shoulder strengthening and stab 12/24/22: patient reported decrease in shoulder pain during vacation with not having to wheel herself (used power w/c), but has increased since starting to wheel again. Dec c/o LBP. Goal progress 02/18/23: reports decrease in shoulder pain to 0-4/10. Hadn 't been having back pain until exacerbation 2 weeks ago which appears QL. 05/18/23: goal progress with both shoulder and back pain LTG Duration 08/16/23 One Impairment gait dysfunction Impairment 2 min walk test 127 ft, not able to tolerate 6 min walk test due to fatigue UE's from supporting body on walker and LE fatigue requiring 2 brief standing breaks, needing to stop at 2 min Short Term Goal (STG) Improve 2 min walk test to at least 150 ft as measure of improved functional gait 12/24/22: only able to ambulate 75 ft today and experienced giving way of left knee residential through gait requiring mod assist to correct. 02/18/23: 2 min walk test 68 ft today, limited due to back pain and left leg giving way requiring her to sit 05/18/23: goal abandoned. See LTG STG Duration 06/21/23 Insulation Engineman Goal (LTG) Patient able to tolerate 6 min walk test with gait distance of at least 300 ft as measure of improved functional gait 05/18/23: goal modification due to inability to reach this goal: New goal: patient able to tolerate 3 min walk test and walk a distance of at least 150 feet. (current max is 109 ft) LTG Duration 08/16/23 Four Impairment weakness Impairment 5x sit to stand test 15 sec with moderate use of hands moderate core muscle weakness with less than anti-gravity strength Short Term Goal (STG) Patient to be independent and compliant with updated HEP for purposes of LE and trunk muscle strengthening 12/24/22: patient was on vacation 1 month, not as compliant, noting dec functional strength today. HEP has been updated. Goal progress 02/18/23: patient compliant with HEP, ongoing progression STG Duration goal met Insulation Engineman Goal (LTG) Patient able to perform 5x sit to stand test in 10 sec as measure of improved functional LE strength and demonstrate 1 grade improvement in trunk muscle strength for improved safety with ADL performance 02/18/23: 10 sec today with 5x sit to stand. Noting improved functional core strength, good goal progress 05/18/23: not able to retest due to patient activity intolerance today due to esophageal stenosis LTG Duration 08/16/23 Two Impairment balance dysfunction Impairment Tinetti gait and balance assessment 11/16 indicating patient at high risk for falls static standing 44 sec without holding on Short Term Goal (STG) Patient to be independent and compliant with gait and balance HEP 12/24/22: as above not as compliant to HEP and not ambulating while on vacation 02/18/23: 41 sec standing, limited by back pain 05/18/23: unable to retest due to esophageal stenosis with dec activity tolerance today STG Duration 04/20/23 Alf Goal (LTG) Improve Tinetti gait and balance assessment score to moderate fall risk range to improve safety in the home and community improve static standing balance to at least 60 sec LTG Duration 08/16/23 Physical Therapy Plan Frequency and Duration Frequency of Treatment 1x/Week Duration of treatment (weeks) 12 Plan of Care Start Date 05/18/23 Plan of Care End Date 08/16/23 Therapeutic Interventions Therapeutic Interventions Balance Training,Home Exercise Program,Manual Therapy, Neuromuscular Re-education, Patient/Caregiver Education, Self-Care/Home Management,Soft Tissue Mobilization,Taping, Therapeutic Activities, Therapeutic Exercises Modalities Cold Pack/Ice Massage,Hot Packs Next Visit Focus/Plan Next Note Type Treatment Note Next Visit Plan Gait training, closed chain exercises as tolerated. Core and LE strengthening and flexibility. Work on transition supine to all 4's on large mat
--- NOTE | 2023-07-13 13:44 | PT.OTN ---
Current Diagnoses Multiple sclerosis (07/13/23) Physical Therapy Treatment Note PT-OP-A Visit Information Start: 09/24/22 09:30 Freq: Status: Active Protocol: Document 07/13/23 12:58 SP (Rec: 07/13/23 13:50 SP [id number]) Out-Patient Physical Therapy Visit Information Visit Information Visit Type Treatment Note Visit Note 08/29 post PN Visit Start Time 13:03 Visit Stop Time 13:44 Visit Number 53 Number of NUTRITION DIRECTOR Visits 1 Evaluation Information Evaluation Date 09/24/22 Precautions Precautions MS, don't overfatigue, esophageal stenosis PT-OP-B Current Condition Start: 09/24/22 09:30 Freq: Status: Active Protocol: Document 07/07/23 14:29 SAK (Rec: 07/07/23 15:33 SAK [id number]) Current Condition History of Current Condition Onset Date March 2019 Current Complaints weakness due to MS, right shoulder pain, LBP History of Current Condition history MS with worsening weakness, as well as right shoulder pain (patient right handed). Patient has caregiver who assists her primarily with household tasks, HEP, walking. She uses a 4WW to walk short diestances (approx 30 feet) in the home, manual w /c for community mobility. No recent falls, but has history of falls. Reports was evaluated for power wheelchair recently but was denied. C/o right shoulder pain and tightness especially with reaching and propelling manual w/c. Well known to this PT for both land and aquatic- based PT. Prior Treatments and Tests prior PT; land and aquatic Future Testing and Treatments Planned nothing planned yet PT-OP-C Subjective Start: 09/24/22 09:30 Freq: Status: Active Protocol: Document 07/13/23 12:58 SP (Rec: 07/13/23 13:50 SP [id number]) OP-PT Subjective Patient Comments Patient Comments Pt reports did do some walking /c FWW at home x2 since last tx: in house almost full distance 70 ft and around [place] same 70 ft, aunt followed with for afety. PT-OP-D Balance Start: 09/24/22 09:30 Freq: Status: Active Protocol: Document 09/24/22 09:06 SAK (Rec: 09/28/22 11:39 SAK [id number]) Tinetti Balance Assessment Sitting Balance Sitting Balance Steady, safe Standing Balance Immediate Standing Balance Steady with support Turning Step Pattern Turning 360 Degrees Discontinuous steps Sitting Down Sitting Down Uses arms or unsteady Gait and Step Initiation of Gait Hesitancy, mult. attempts Right Foot Step Length Does not pass stance ft. Right Foot Step Height Does not clear floor Left Foot Step Length Does not pass stance foot Left Foot Step Height Does not clear floor Step Description Step Symmetry Step length appears equal Step Continuity Stopping or discontinuity Gait Description Path Description Mild/moderate deviation Trunk Description Marked sway or uses aide Walking Stance Heels apart Scoring and Interpretation Tinetti Composite Score (points) 5 PT-OP-E Functional Tests Start: 09/24/22 09:30 Freq: Status: Active Protocol: Document 09/24/22 09:06 [facility] (Rec: 09/28/22 11:39 [facility] [id number]) Functional Tests 2 Minute Walk Test Distance 127 Device Used 4WW PT-OP-G Mobility & Gait Start: 09/24/22 09:30 Freq: Status: Active Protocol: Document 09/24/22 09:06 [facility] (Rec: 09/28/22 11:39 [facility] [id number]) OP Mobility Evaluation Bed Mobility Supine to and from Sit indep Transfers Bed to Chair Transfers indep Car Transfers assisted Floor Transfers not performed OP Gait Assessment Gait Gait Assistance Required: Minimum Assistance Distance (Feet) 127 Assistive Devices Assistive Device Gait Belt,Front Wheeled Walker Orthotic/Prosthetic Devices or Brace: No Gait Deviations General Gait Pattern Decreased Stride Length, Decreased Feet Clearance, Flexed Trunk Factors Limiting Gait Function Factors Limiting Gait Function Abnormal Tonal Influences, Decreased Activity Tolerance, Decreased Strength,Pain Stair Climbing Evaluation Comments Stair Climbing Comments unable PT-OP-H Neuro Start: 09/24/22 09:30 Freq: Status: Active Protocol: Document 09/24/22 09:06 [facility] (Rec: 09/28/22 11:39 [facility] [id number]) Sensation Evaluation Gross Sensation Gross Sensation Left LE Impaired,Right LE Impaired,Trunk Impaired PT-OP-J Posture/Palpation/Skin Start: 09/24/22 09:30 Freq: Status: Active Protocol: Document 09/24/22 09:06 [facility] (Rec: 09/28/22 11:39 [facility] [id number]) Posture Evaluation Position Sitting Head/C-Spine Posture Forward Head Shoulder Posture (L) Rounded,(R) Rounded Shoulder Subluxation Position (L) Anterior,(R) Anterior Scapula Posture (L) Protracted,(R) Protracted Arm Posture (L) Internally Rotated,(R) Internally Rotated PT-OP-K Range of Motion Start: 09/24/22 09:30 Freq: Status: Active Protocol: Document 09/24/22 09:06 [facility] (Rec: 09/28/22 11:39 [facility] [id number]) Hip Goniometric Range of Motion Hip chelle Straight Leg Raise 145 Hip ROM Limitations Hip ROM Limitations Soft Tissue Tightness Ankle and Foot Goniometric Range of Motion Ankle and Foot chelle Dorsiflexion with Knee Flexed 0 Ankle and Foot ROM Limitations ROM Limitations Soft Tissue Tightness PT-OP-M Strength Start: 09/24/22 09:30 Freq: Status: Active Protocol: Document 09/24/22 09:31 [facility] (Rec: 09/24/22 10:22 [facility] [id number]) Trunk Strength Trunk Manual Muscle Testing Flexion 3- Fair- Extension 2+ Poor+ Rotation Left 3- Fair- Rotation Right 3- Fair- Lateral Flexion Left 3- Fair- Lateral Flexion Right 3- Fair- Scapula Strength Scapula Manual Muscle Testing chelle Elevation (C4) 4+ Good+ Adduction 3+ Fair+ Abduction 3 Fair Depression 3+ Fair+ Shoulder Strength Shoulder Manual Muscle Testing Left Flexion 4 Good Extension 4 Good Abduction (C5) 4 Good Adduction 4 Good External Rotation 4 Good Internal Rotation 4 Good Horizontal Abduction 4 Good Horizontal Adduction 4 Good Right Flexion 4 Good Extension 4 Good Abduction (C5) 4 Good Adduction 4 Good External Rotation 4 Good Internal Rotation 4 Good Horizontal Abduction 4 Good Horizontal Adduction 4 Good Elbow/Forearm Strength Elbow and Forearm Manual Muscle Testing Left Flexion (C6) 4 Good Extension (C7) 4 Good Right Comments pain with resisted flex,ab,ER Hip Strength Hip Manual Muscle Testing Left Flexion (L2) 4- Good- Abduction 3- Fair- Adduction 3+ Fair+ Right Flexion (L2) 4- Good- Abduction 2+ Poor+ Adduction 3+ Fair+ Knee Strength Knee Manual Muscle Testing Left Flexion (S2) 4 Good Extension (L3) 4 Good Right Flexion (S2) 4- Good- Extension (L3) 4- Good- Ankle/Foot Strength Ankle and Foot Manual Muscle Testing Left Dorsiflexion (L4) 3+ Fair+ Plantarflexion (S1) 3+ Fair+ Right Dorsiflexion (L4) 3+ Fair+ Plantarflexion (S1) 3+ Fair+ PT-OP-Q Treatments Start: 09/24/22 09:30 Freq: Status: Active Protocol: Document 07/13/23 12:58 SP (Rec: 07/13/23 13:50 SP [id number]) Cardio Equipment Recumbent Stepper (Sci-Fit) Duration (Minutes) 5 Resistance 1 Seat Position 13 Other 00 RPM, 0.47 mile- 5:45min Therapeutic Exercises Supine Exercises hip flexor stretch Side bilateral Resistance mat table BLEs off edge ( perpendicular to EOtable) Reps/Minutes 30-60 Comments good feedback hip flexor stretch Prone Exercises hip IR/ER Prone Exercise Name unilateral and chelle Side bilateral Resistance AROM Reps/Minutes 2x10 each Comments cued maintain knee flexion 90 deg, slow controlled IR/ ER range manage quad/hip flexor stretch Prone Exercise Name quad then hip flexor Side bilateral Resistance manual via therapist Equipment Used pillow under chest pt positions Reps/Minutes 2x30 Comments good feedback stretch Sitting Exercises hamstring curl Resistance L2 TB Reps/Minutes R 5 reps, L 18 reps Comments cued pull back fully- post standing ex Standing Exercises TKE Side bilateral Resistance TB #2- anchored behind therapist thigh stand front Equipment Used mod>heavy BUEs on //bars Reps/Minutes x10 reps each Therapeutic Activity Therapeutic Activity sit to prone to all 4's Name quadruped, modified tall kneel BUEs on 12 box Reps/Minutes 3x Comments 1st: not timed 2nd, 3rd: brief Gait Training Gait Activity //bars Treatment Focus 10 ft x 3 laps Comments fatigued quickly with legs end of lap Neuro Re-Education Treatment Balance Activities sittin bal Details balloon dowel trunk Surface 1:1 Equipment yellow Dynadisc on wc, B feet crossed front Reps/Duration 4 min Comments encouraged cross body wt shift fwd, lateral. PT-OP-T Assessment and Plan Start: 09/24/22 09:30 Freq: Status: Active Protocol: Document 07/13/23 12:58 SP (Rec: 07/13/23 13:50 SP [id number]) Physical Therapy Assessment Goals Three Impairment pain right shoulder and low back Impairment diffiuculty performing ADL's due to pain and pain in right shoulder limits gait due to heavy use of walker Longterm Goal (LTG) Patient to report at least 50% decrease in pain with all usual activities and be independent with HEP for purposes of core stab, shoulder strengthening and stab 12/24/22: patient reported decrease in shoulder pain during vacation with not having to wheel herself (used power w/c), but has increased since starting to wheel again. Dec c/o LBP. Goal progress 02/18/23: reports decrease in shoulder pain to 0-4/10. Hadn 't been having back pain until exacerbation 2 weeks ago which appears QL. 05/18/23: goal progress with both shoulder and back pain LTG Duration 08/16/23 One Impairment gait dysfunction Impairment 2 min walk test 127 ft, not able to tolerate 6 min walk test due to fatigue UE's from supporting body on walker and LE fatigue requiring 2 brief standing breaks, needing to stop at 2 min Short Term Goal (STG) Improve 2 min walk test to at least 150 ft as measure of improved functional gait 12/24/22: only able to ambulate 75 ft today and experienced giving way of left knee residential through gait requiring mod assist to correct. 02/18/23: 2 min walk test 68 ft today, limited due to back pain and left leg giving way requiring her to sit 05/18/23: goal abandoned. See LTG STG Duration 06/21/23 [employer] Goal (LTG) Patient able to tolerate 6 min walk test with gait distance of at least 300 ft as measure of improved functional gait 05/18/23: goal modification due to inability to reach this goal: New goal: patient able to tolerate 3 min walk test and walk a distance of at least 150 feet. (current max is 109 ft) LTG Duration 08/16/23 Four Impairment weakness Impairment 5x sit to stand test 15 sec with moderate use of hands moderate core muscle weakness with less than anti-gravity strength Short Term Goal (STG) Patient to be independent and compliant with updated HEP for purposes of LE and trunk muscle strengthening 12/24/22: patient was on vacation 1 month, not as compliant, noting dec functional strength today. HEP has been updated. Goal progress 02/18/23: patient compliant with HEP, ongoing progression STG Duration goal met [employer] Goal (LTG) Patient able to perform 5x sit to stand test in 10 sec as measure of improved functional LE strength and demonstrate 1 grade improvement in trunk muscle strength for improved safety with ADL performance 02/18/23: 10 sec today with 5x sit to stand. Noting improved functional core strength, good goal progress 05/18/23: not able to retest due to patient activity intolerance today due to esophageal stenosis LTG Duration 08/16/23 Two Impairment balance dysfunction Impairment Tinetti gait and balance assessment 11/16 indicating patient at high risk for falls static standing 44 sec without holding on Short Term Goal (STG) Patient to be independent and compliant with gait and balance HEP 12/24/22: as above not as compliant to HEP and not ambulating while on vacation 02/18/23: 41 sec standing, limited by back pain 05/18/23: unable to retest due to esophageal stenosis with dec activity tolerance today STG Duration 04/20/23 Longterm Goal (LTG) Improve Tinetti gait and balance assessment score to moderate fall risk range to improve safety in the home and community improve static standing balance to at least 60 sec LTG Duration 08/16/23 Assessment Summary Assessment Pt improved prone to sit back on heels then into tall kneel (not timed) 1st rep, 2nd and 3rd brief due to LE weakness mostly UEs on 12 box, CG-Min A into quadruped. Pt progressed to full lap in// bars x 3 laps with seated rest and initiated TKE against resistance in standing, tires quickly with increased UE support on //bars. Ended with trunk balance on uneven surface volleying balloon no LOB and reported abs good tiring. Physical Therapy Plan Frequency and Duration Frequency of Treatment 1x/Week Duration of treatment (weeks) 12 Plan of Care Start Date 05/18/23 Plan of Care End Date 08/16/23 Therapeutic Interventions Therapeutic Interventions Balance Training,Home Exercise Program,Manual Therapy, Neuromuscular Re-education, Patient/Caregiver Education, Self-Care/Home Management,Soft Tissue Mobilization,Taping, Therapeutic Activities, Therapeutic Exercises Modalities Cold Pack/Ice Massage,Hot Packs Next Visit Focus/Plan Next Note Type Treatment Note Next Visit Plan Continue quadruped for LE WB and core/hip strengthening. POC: Gait training, closed chain exercises as tolerated. Core and LE strengthening and flexibility. Work on transition supine to all 4's on large mat
--- NOTE | 2023-07-20 16:59 | PT.OTN ---
Current Diagnoses Multiple sclerosis (07/20/23) Physical Therapy Treatment Note PT-OP-A Visit Information Start: 09/24/22 09:30 Freq: Status: Active Protocol: Document 07/20/23 12:58 SAK (Rec: 07/20/23 13:48 SAK [id number]) Out-Patient Physical Therapy Visit Information Visit Information Visit Type Treatment Note Visit Note 09/28 post PN Visit Start Time 12:59 Visit Stop Time 13:42 Visit Number 42 Number of SUSTAINABLE SYSTEMS ANALYST Visits 0 Evaluation Information Evaluation Date 09/24/22 Precautions Precautions MS, don't overfatigue, esophageal stenosis PT-OP-B Current Condition Start: 09/24/22 09:30 Freq: Status: Active Protocol: Document 07/20/23 12:58 SAK (Rec: 07/20/23 13:48 SAK [id number]) Current Condition History of Current Condition Onset Date March 2019 Current Complaints weakness due to MS, right shoulder pain, LBP History of Current Condition history MS with worsening weakness, as well as right shoulder pain (patient right handed). Patient has caregiver who assists her primarily with household tasks, HEP, walking. She uses a 4WW to walk short diestances (approx 30 feet) in the home, manual w /c for community mobility. No recent falls, but has history of falls. Reports was evaluated for power wheelchair recently but was denied. C/o right shoulder pain and tightness especially with reaching and propelling manual w/c. Well known to this PT for both land and aquatic- based PT. Prior Treatments and Tests prior PT; land and aquatic Future Testing and Treatments Planned nothing planned yet PT-OP-C Subjective Start: 09/24/22 09:30 Freq: Status: Active Protocol: Document 07/13/23 12:58 SP (Rec: 07/13/23 13:50 SP [id number]) OP-PT Subjective Patient Comments Patient Comments Pt reports did do some walking /c FWW at home x2 since last tx: in house almost full distance 70 ft and around [place] same 70 ft, aunt followed with for afety. PT-OP-D Balance Start: 09/24/22 09:30 Freq: Status: Active Protocol: Document 09/24/22 09:06 SAK (Rec: 09/28/22 11:39 SAK [id number]) Tinetti Balance Assessment Sitting Balance Sitting Balance Steady, safe Standing Balance Immediate Standing Balance Steady with support Turning Step Pattern Turning 360 Degrees Discontinuous steps Sitting Down Sitting Down Uses arms or unsteady Gait and Step Initiation of Gait Hesitancy, mult. attempts Right Foot Step Length Does not pass stance ft. Right Foot Step Height Does not clear floor Left Foot Step Length Does not pass stance foot Left Foot Step Height Does not clear floor Step Description Step Symmetry Step length appears equal Step Continuity Stopping or discontinuity Gait Description Path Description Mild/moderate deviation Trunk Description Marked sway or uses aide Walking Stance Heels apart Scoring and Interpretation Tinetti Composite Score (points) 5 PT-OP-E Functional Tests Start: 09/24/22 09:30 Freq: Status: Active Protocol: Document 09/24/22 09:06 [facility] (Rec: 09/28/22 11:39 [facility] [id number]) Functional Tests 2 Minute Walk Test Distance 127 Device Used 4WW PT-OP-G Mobility & Gait Start: 09/24/22 09:30 Freq: Status: Active Protocol: Document 09/24/22 09:06 [facility] (Rec: 09/28/22 11:39 [facility] [id number]) OP Mobility Evaluation Bed Mobility Supine to and from Sit indep Transfers Bed to Chair Transfers indep Car Transfers assisted Floor Transfers not performed OP Gait Assessment Gait Gait Assistance Required: Minimum Assistance Distance (Feet) 127 Assistive Devices Assistive Device Gait Belt,Front Wheeled Walker Orthotic/Prosthetic Devices or Brace: No Gait Deviations General Gait Pattern Decreased Stride Length, Decreased Feet Clearance, Flexed Trunk Factors Limiting Gait Function Factors Limiting Gait Function Abnormal Tonal Influences, Decreased Activity Tolerance, Decreased Strength,Pain Stair Climbing Evaluation Comments Stair Climbing Comments unable PT-OP-H Neuro Start: 09/24/22 09:30 Freq: Status: Active Protocol: Document 09/24/22 09:06 [facility] (Rec: 09/28/22 11:39 [facility] [id number]) Sensation Evaluation Gross Sensation Gross Sensation Left LE Impaired,Right LE Impaired,Trunk Impaired PT-OP-J Posture/Palpation/Skin Start: 09/24/22 09:30 Freq: Status: Active Protocol: Document 09/24/22 09:06 [facility] (Rec: 09/28/22 11:39 [facility] [id number]) Posture Evaluation Position Sitting Head/C-Spine Posture Forward Head Shoulder Posture (L) Rounded,(R) Rounded Shoulder Subluxation Position (L) Anterior,(R) Anterior Scapula Posture (L) Protracted,(R) Protracted Arm Posture (L) Internally Rotated,(R) Internally Rotated PT-OP-K Range of Motion Start: 09/24/22 09:30 Freq: Status: Active Protocol: Document 09/24/22 09:06 [facility] (Rec: 09/28/22 11:39 [facility] [id number]) Hip Goniometric Range of Motion Hip chelle Straight Leg Raise 145 Hip ROM Limitations Hip ROM Limitations Soft Tissue Tightness Ankle and Foot Goniometric Range of Motion Ankle and Foot chelle Dorsiflexion with Knee Flexed 0 Ankle and Foot ROM Limitations ROM Limitations Soft Tissue Tightness PT-OP-M Strength Start: 09/24/22 09:30 Freq: Status: Active Protocol: Document 09/24/22 09:31 [facility] (Rec: 09/24/22 10:22 [facility] [id number]) Trunk Strength Trunk Manual Muscle Testing Flexion 3- Fair- Extension 2+ Poor+ Rotation Left 3- Fair- Rotation Right 3- Fair- Lateral Flexion Left 3- Fair- Lateral Flexion Right 3- Fair- Scapula Strength Scapula Manual Muscle Testing chelle Elevation (C4) 4+ Good+ Adduction 3+ Fair+ Abduction 3 Fair Depression 3+ Fair+ Shoulder Strength Shoulder Manual Muscle Testing Left Flexion 4 Good Extension 4 Good Abduction (C5) 4 Good Adduction 4 Good External Rotation 4 Good Internal Rotation 4 Good Horizontal Abduction 4 Good Horizontal Adduction 4 Good Right Flexion 4 Good Extension 4 Good Abduction (C5) 4 Good Adduction 4 Good External Rotation 4 Good Internal Rotation 4 Good Horizontal Abduction 4 Good Horizontal Adduction 4 Good Elbow/Forearm Strength Elbow and Forearm Manual Muscle Testing Left Flexion (C6) 4 Good Extension (C7) 4 Good Right Comments pain with resisted flex,ab,ER Hip Strength Hip Manual Muscle Testing Left Flexion (L2) 4- Good- Abduction 3- Fair- Adduction 3+ Fair+ Right Flexion (L2) 4- Good- Abduction 2+ Poor+ Adduction 3+ Fair+ Knee Strength Knee Manual Muscle Testing Left Flexion (S2) 4 Good Extension (L3) 4 Good Right Flexion (S2) 4- Good- Extension (L3) 4- Good- Ankle/Foot Strength Ankle and Foot Manual Muscle Testing Left Dorsiflexion (L4) 3+ Fair+ Plantarflexion (S1) 3+ Fair+ Right Dorsiflexion (L4) 3+ Fair+ Plantarflexion (S1) 3+ Fair+ PT-OP-Q Treatments Start: 09/24/22 09:30 Freq: Status: Active Protocol: Document 07/20/23 12:58 [facility] (Rec: 07/20/23 13:48 [facility] [id number]) Cardio Equipment Recumbent Stepper (Sci-Fit) Duration (Minutes) 5 Resistance 1 Seat Position 13 Other 52 RPM, 0.43 mi Therapeutic Exercises Supine Exercises hip abd Equipment Used slider sheet Reps/Minutes 10x quad stretch Reps/Minutes 2x30 Comments legs over the side of the table piriformis stretch Side bilateral Reps/Minutes 60 Comments manual HC stretch Supine Exercise Name added to HEP Side bilateral Equipment Used mesh chair Reps/Minutes 30 Comments Cued scoot front seat, hip hinge, LE front hip flexor stretch Side bilateral Resistance mat table BLEs off edge ( perpendicular to EOtable) Reps/Minutes 30-60 Comments good feedback hip flexor stretch Sitting Exercises rows, shoulder ext Resistance L2 TB Equipment Used seated on Dynadisc Reps/Minutes 10x lean backs Reps/Minutes 10x LAQ Side bilateral Resistance #5 leg wt 1 set Reps/Minutes 2x10 Comments target to kick to, R slight weaker than L sit<> stands Equipment Used hi-lo table, PT shoulder Reps/Minutes 5x2 resisted trunk rotation Sitting Exercise Name rotation Side bilateral Resistance L2 TB, therapist anchored Reps/Minutes x15 Gait Training Gait Activity FWW Level of Assistance CGA Surface firm Distance/Duration 70 Treatment Focus activity toleranlce, strength Manual Therapy Treatment Soft Tissue Mobilization right UT Mobilization Type Strumming,Sustained Pressure right rhomboids Mobilization Type Strumming,Sustained Pressure Intensity/Depth mod Body Position Sitting Neuro Re-Education Treatment Balance Activities lean backs Surface yellow Dyadisc on mat Equipment anchored ankles, 4# leg wt + PT aide Reps/Duration x10 Comments SUSTAINABLE SYSTEMS ANALYST posterior support needed. Challenge keeping BLEs on floor, core/ hip flexor effort PT-OP-T Assessment and Plan Start: 09/24/22 09:30 Freq: Status: Active Protocol: Document 07/20/23 12:58 [facility] (Rec: 07/20/23 13:48 [facility] [id number]) Physical Therapy Assessment Impairments Impairments Balance,Gait,Pain,Strength Goals Three Impairment pain right shoulder and low back Impairment diffiuculty performing ADL's due to pain and pain in right shoulder limits gait due to heavy use of walker Halfway Goal (LTG) Patient to report at least 50% decrease in pain with all usual activities and be independent with HEP for purposes of core stab, shoulder strengthening and stab 12/24/22: patient reported decrease in shoulder pain during vacation with not having to wheel herself (used power w/c), but has increased since starting to wheel again. Dec c/o LBP. Goal progress 02/18/23: reports decrease in shoulder pain to 0-4/10. Hadn 't been having back pain until exacerbation 2 weeks ago which appears QL. 05/18/23: goal progress with both shoulder and back pain LTG Duration 08/16/23 One Impairment gait dysfunction Impairment 2 min walk test 127 ft, not able to tolerate 6 min walk test due to fatigue UE's from supporting body on walker and LE fatigue requiring 2 brief standing breaks, needing to stop at 2 min Short Term Goal (STG) Improve 2 min walk test to at least 150 ft as measure of improved functional gait 12/24/22: only able to ambulate 75 ft today and experienced giving way of left knee prison through gait requiring mod assist to correct. 02/18/23: 2 min walk test 68 ft today, limited due to back pain and left leg giving way requiring her to sit 05/18/23: goal abandoned. See LTG STG Duration 06/21/23 Clinical Account Manager Goal (LTG) Patient able to tolerate 6 min walk test with gait distance of at least 300 ft as measure of improved functional gait 05/18/23: goal modification due to inability to reach this goal: New goal: patient able to tolerate 3 min walk test and walk a distance of at least 150 feet. (current max is 109 ft) LTG Duration 08/16/23 Four Impairment weakness Impairment 5x sit to stand test 15 sec with moderate use of hands moderate core muscle weakness with less than anti-gravity strength Short Term Goal (STG) Patient to be independent and compliant with updated HEP for purposes of LE and trunk muscle strengthening 12/24/22: patient was on vacation 1 month, not as compliant, noting dec functional strength today. HEP has been updated. Goal progress 02/18/23: patient compliant with HEP, ongoing progression STG Duration goal met Clinical Account Manager Goal (LTG) Patient able to perform 5x sit to stand test in 10 sec as measure of improved functional LE strength and demonstrate 1 grade improvement in trunk muscle strength for improved safety with ADL performance 02/18/23: 10 sec today with 5x sit to stand. Noting improved functional core strength, good goal progress 05/18/23: not able to retest due to patient activity intolerance today due to esophageal stenosis LTG Duration 08/16/23 Two Impairment balance dysfunction Impairment Tinetti gait and balance assessment 11/16 indicating patient at high risk for falls static standing 44 sec without holding on Short Term Goal (STG) Patient to be independent and compliant with gait and balance HEP 12/24/22: as above not as compliant to HEP and not ambulating while on vacation 02/18/23: 41 sec standing, limited by back pain 05/18/23: unable to retest due to esophageal stenosis with dec activity tolerance today STG Duration 04/20/23 Clinical Account Manager Goal (LTG) Improve Tinetti gait and balance assessment score to moderate fall risk range to improve safety in the home and community improve static standing balance to at least 60 sec LTG Duration 08/16/23 Assessment Summary Assessment Patient reported walked at home all but 1 day since last seen in PT. Prefers not to work further at this time on getting to all 4's due to heavy fatigue limiting her ability to do standing or gait training. Legs fatigued at 70 ft ambulation with FWW today, able to do sit to stnad x 2 with min UE support, poor eccentric control with descent. Physical Therapy Plan Frequency and Duration Frequency of Treatment 1x/Week Duration of treatment (weeks) 12 Plan of Care Start Date 05/18/23 Plan of Care End Date 08/16/23 Therapeutic Interventions Therapeutic Interventions Balance Training,Home Exercise Program,Manual Therapy, Neuromuscular Re-education, Patient/Caregiver Education, Self-Care/Home Management,Soft Tissue Mobilization,Taping, Therapeutic Activities, Therapeutic Exercises Modalities Cold Pack/Ice Massage,Hot Packs Next Visit Focus/Plan Next Note Type Treatment Note Next Visit Plan POC: Gait training, closed chain exercises as tolerated. Core and LE strengthening and flexibility. Consider still work on transition supine to all 4's on large mat with further encouragement of rationale.
--- NOTE | 2023-07-26 16:29 | PT.OTN ---
Current Diagnoses Multiple sclerosis (07/26/23) Physical Therapy Treatment Note PT-OP-A Visit Information Start: 09/24/22 09:30 Freq: Status: Active Protocol: Document 07/26/23 13:03 [facility] (Rec: 07/26/23 13:50 [facility] [id number]) Out-Patient Physical Therapy Visit Information Visit Information Visit Type Treatment Note Visit Note 10/29 post PN Visit Start Time 12:59 Visit Stop Time 13:42 Visit Number 42 Number of [employer] Visits 0 Evaluation Information Evaluation Date 09/24/22 Precautions Precautions MS, don't overfatigue, esophageal stenosis PT-OP-B Current Condition Start: 09/24/22 09:30 Freq: Status: Active Protocol: Document 07/26/23 13:03 [facility] (Rec: 07/26/23 13:50 [facility] [id number]) Current Condition History of Current Condition Onset Date March 2019 Current Complaints weakness due to MS, right shoulder pain, LBP History of Current Condition history MS with worsening weakness, as well as right shoulder pain (patient right handed). Patient has caregiver who assists her primarily with household tasks, HEP, walking. She uses a 4WW to walk short diestances (approx 30 feet) in the home, manual w /c for community mobility. No recent falls, but has history of falls. Reports was evaluated for power wheelchair recently but was denied. C/o right shoulder pain and tightness especially with reaching and propelling manual w/c. Well known to this PT for both land and aquatic- based PT. Prior Treatments and Tests prior PT; land and aquatic Future Testing and Treatments Planned nothing planned yet PT-OP-C Subjective Start: 09/24/22 09:30 Freq: Status: Active Protocol: Document 07/26/23 13:03 [facility] (Rec: 07/26/23 13:50 [facility] [id number]) OP-PT Subjective Patient Comments Patient Comments Tried walking yesterday, could only make it 5 steps when right knee started hyperextending backward. PT-OP-D Balance Start: 09/24/22 09:30 Freq: Status: Active Protocol: Document 09/24/22 09:06 [facility] (Rec: 09/28/22 11:39 [facility] [id number]) Tinetti Balance Assessment Sitting Balance Sitting Balance Steady, safe Standing Balance Immediate Standing Balance Steady with support Turning Step Pattern Turning 360 Degrees Discontinuous steps Sitting Down Sitting Down Uses arms or unsteady Gait and Step Initiation of Gait Hesitancy, mult. attempts Right Foot Step Length Does not pass stance ft. Right Foot Step Height Does not clear floor Left Foot Step Length Does not pass stance foot Left Foot Step Height Does not clear floor Step Description Step Symmetry Step length appears equal Step Continuity Stopping or discontinuity Gait Description Path Description Mild/moderate deviation Trunk Description Marked sway or uses aide Walking Stance Heels apart Scoring and Interpretation Tinetti Composite Score (points) 5 PT-OP-E Functional Tests Start: 09/24/22 09:30 Freq: Status: Active Protocol: Document 09/24/22 09:06 [facility] (Rec: 09/28/22 11:39 [facility] [id number]) Functional Tests 2 Minute Walk Test Distance 127 Device Used 4WW PT-OP-G Mobility & Gait Start: 09/24/22 09:30 Freq: Status: Active Protocol: Document 09/24/22 09:06 [facility] (Rec: 09/28/22 11:39 [facility] [id number]) OP Mobility Evaluation Bed Mobility Supine to and from Sit indep Transfers Bed to Chair Transfers indep Car Transfers assisted Floor Transfers not performed OP Gait Assessment Gait Gait Assistance Required: Minimum Assistance Distance (Feet) 127 Assistive Devices Assistive Device Gait Belt,Front Wheeled Walker Orthotic/Prosthetic Devices or Brace: No Gait Deviations General Gait Pattern Decreased Stride Length, Decreased Feet Clearance, Flexed Trunk Factors Limiting Gait Function Factors Limiting Gait Function Abnormal Tonal Influences, Decreased Activity Tolerance, Decreased Strength,Pain Stair Climbing Evaluation Comments Stair Climbing Comments unable PT-OP-H Neuro Start: 09/24/22 09:30 Freq: Status: Active Protocol: Document 09/24/22 09:06 [facility] (Rec: 09/28/22 11:39 [facility] [id number]) Sensation Evaluation Gross Sensation Gross Sensation Left LE Impaired,Right LE Impaired,Trunk Impaired PT-OP-J Posture/Palpation/Skin Start: 09/24/22 09:30 Freq: Status: Active Protocol: Document 09/24/22 09:06 [facility] (Rec: 09/28/22 11:39 [facility] [id number]) Posture Evaluation Position Sitting Head/C-Spine Posture Forward Head Shoulder Posture (L) Rounded,(R) Rounded Shoulder Subluxation Position (L) Anterior,(R) Anterior Scapula Posture (L) Protracted,(R) Protracted Arm Posture (L) Internally Rotated,(R) Internally Rotated PT-OP-K Range of Motion Start: 09/24/22 09:30 Freq: Status: Active Protocol: Document 09/24/22 09:06 [facility] (Rec: 09/28/22 11:39 [facility] [id number]) Hip Goniometric Range of Motion Hip chelle Straight Leg Raise 145 Hip ROM Limitations Hip ROM Limitations Soft Tissue Tightness Ankle and Foot Goniometric Range of Motion Ankle and Foot chelle Dorsiflexion with Knee Flexed 0 Ankle and Foot ROM Limitations ROM Limitations Soft Tissue Tightness PT-OP-M Strength Start: 09/24/22 09:30 Freq: Status: Active Protocol: Document 09/24/22 09:31 [facility] (Rec: 09/24/22 10:22 [facility] [id number]) Trunk Strength Trunk Manual Muscle Testing Flexion 3- Fair- Extension 2+ Poor+ Rotation Left 3- Fair- Rotation Right 3- Fair- Lateral Flexion Left 3- Fair- Lateral Flexion Right 3- Fair- Scapula Strength Scapula Manual Muscle Testing chelle Elevation (C4) 4+ Good+ Adduction 3+ Fair+ Abduction 3 Fair Depression 3+ Fair+ Shoulder Strength Shoulder Manual Muscle Testing Left Flexion 4 Good Extension 4 Good Abduction (C5) 4 Good Adduction 4 Good External Rotation 4 Good Internal Rotation 4 Good Horizontal Abduction 4 Good Horizontal Adduction 4 Good Right Flexion 4 Good Extension 4 Good Abduction (C5) 4 Good Adduction 4 Good External Rotation 4 Good Internal Rotation 4 Good Horizontal Abduction 4 Good Horizontal Adduction 4 Good Elbow/Forearm Strength Elbow and Forearm Manual Muscle Testing Left Flexion (C6) 4 Good Extension (C7) 4 Good Right Comments pain with resisted flex,ab,ER Hip Strength Hip Manual Muscle Testing Left Flexion (L2) 4- Good- Abduction 3- Fair- Adduction 3+ Fair+ Right Flexion (L2) 4- Good- Abduction 2+ Poor+ Adduction 3+ Fair+ Knee Strength Knee Manual Muscle Testing Left Flexion (S2) 4 Good Extension (L3) 4 Good Right Flexion (S2) 4- Good- Extension (L3) 4- Good- Ankle/Foot Strength Ankle and Foot Manual Muscle Testing Left Dorsiflexion (L4) 3+ Fair+ Plantarflexion (S1) 3+ Fair+ Right Dorsiflexion (L4) 3+ Fair+ Plantarflexion (S1) 3+ Fair+ PT-OP-Q Treatments Start: 09/24/22 09:30 Freq: Status: Active Protocol: Document 07/26/23 13:03 [facility] (Rec: 07/26/23 13:50 [facility] [id number]) Therapeutic Exercises Supine Exercises quad stretch Reps/Minutes 2x30 Comments legs over the side of the table IT band stretch Reps/Minutes 2x30 Comments manual piriformis stretch Side bilateral Reps/Minutes 60 Comments manual HC stretch Supine Exercise Name added to HEP Side bilateral Equipment Used mesh chair Reps/Minutes 30 Comments Cued scoot front seat, hip hinge, LE front hip flexor stretch Side bilateral Resistance mat table BLEs off edge ( perpendicular to EOtable) Reps/Minutes 30-60 Comments good feedback hip flexor stretch Sitting Exercises rows, shoulder ext Resistance L2 TB Equipment Used seated on [employer] Reps/Minutes 10x hamstring curl Resistance L2 TB Reps/Minutes R 5 reps, L 18 reps Comments cued pull back fully- post standing ex lean backs Reps/Minutes 10x2 LAQ Side bilateral Resistance #2 leg wt 1 set Reps/Minutes 2x10 Comments target to kick to, R slight weaker than L sit<> stands Equipment Used hi-lo table, PT shoulder Reps/Minutes 5x2 resisted trunk rotation Sitting Exercise Name rotation Side bilateral Resistance L2 TB, therapist anchored Reps/Minutes x15 Gait Training Gait Activity FWW Level of Assistance CGA Surface firm Distance/Duration 75 Treatment Focus activity toleranlce, strength, function PT-OP-T Assessment and Plan Start: 09/24/22 09:30 Freq: Status: Active Protocol: Document 07/26/23 13:03 [facility] (Rec: 07/26/23 13:50 [facility] [id number]) Physical Therapy Assessment Goals Three Impairment pain right shoulder and low back Impairment diffiuculty performing ADL's due to pain and pain in right shoulder limits gait due to heavy use of walker Home Care Chaplain Goal (LTG) Patient to report at least 50% decrease in pain with all usual activities and be independent with HEP for purposes of core stab, shoulder strengthening and stab 12/24/22: patient reported decrease in shoulder pain during vacation with not having to wheel herself (used power w/c), but has increased since starting to wheel again. Dec c/o LBP. Goal progress 02/18/23: reports decrease in shoulder pain to 0-4/10. Hadn 't been having back pain until exacerbation 2 weeks ago which appears QL. 05/18/23: goal progress with both shoulder and back pain LTG Duration 08/16/23 One Impairment gait dysfunction Impairment 2 min walk test 127 ft, not able to tolerate 6 min walk test due to fatigue UE's from supporting body on walker and LE fatigue requiring 2 brief standing breaks, needing to stop at 2 min Short Term Goal (STG) Improve 2 min walk test to at least 150 ft as measure of improved functional gait 12/24/22: only able to ambulate 75 ft today and experienced giving way of left knee senior care through gait requiring mod assist to correct. 02/18/23: 2 min walk test 68 ft today, limited due to back pain and left leg giving way requiring her to sit 05/18/23: goal abandoned. See LTG STG Duration 06/21/23 Home Care Chaplain Goal (LTG) Patient able to tolerate 6 min walk test with gait distance of at least 300 ft as measure of improved functional gait 05/18/23: goal modification due to inability to reach this goal: New goal: patient able to tolerate 3 min walk test and walk a distance of at least 150 feet. (current max is 109 ft) LTG Duration 08/16/23 Four Impairment weakness Impairment 5x sit to stand test 15 sec with moderate use of hands moderate core muscle weakness with less than anti-gravity strength Short Term Goal (STG) Patient to be independent and compliant with updated HEP for purposes of LE and trunk muscle strengthening 12/24/22: patient was on vacation 1 month, not as compliant, noting dec functional strength today. HEP has been updated. Goal progress 02/18/23: patient compliant with HEP, ongoing progression STG Duration goal met Home Care Chaplain Goal (LTG) Patient able to perform 5x sit to stand test in 10 sec as measure of improved functional LE strength and demonstrate 1 grade improvement in trunk muscle strength for improved safety with ADL performance 02/18/23: 10 sec today with 5x sit to stand. Noting improved functional core strength, good goal progress 05/18/23: not able to retest due to patient activity intolerance today due to esophageal stenosis LTG Duration 08/16/23 Two Impairment balance dysfunction Impairment Tinetti gait and balance assessment 11/16 indicating patient at high risk for falls static standing 44 sec without holding on Short Term Goal (STG) Patient to be independent and compliant with gait and balance HEP 12/24/22: as above not as compliant to HEP and not ambulating while on vacation 02/18/23: 41 sec standing, limited by back pain 05/18/23: unable to retest due to esophageal stenosis with dec activity tolerance today STG Duration 04/20/23 Home Care Chaplain Goal (LTG) Improve Tinetti gait and balance assessment score to moderate fall risk range to improve safety in the home and community improve static standing balance to at least 60 sec LTG Duration 08/16/23 Assessment Summary Assessment Patient able to Physical Therapy Plan Frequency and Duration Frequency of Treatment 1x/Week Duration of treatment (weeks) 12 Plan of Care Start Date 05/18/23 Plan of Care End Date 08/16/23 Therapeutic Interventions Therapeutic Interventions Balance Training,Home Exercise Program,Manual Therapy, Neuromuscular Re-education, Patient/Caregiver Education, Self-Care/Home Management,Soft Tissue Mobilization,Taping, Therapeutic Activities, Therapeutic Exercises Modalities Cold Pack/Ice Massage,Hot Packs Next Visit Focus/Plan Next Note Type Treatment Note Next Visit Plan POC: Gait training, closed chain exercises as tolerated. Core and LE strengthening and flexibility. Consider still work on transition supine to all 4's on large mat with further encouragement of rationale.
--- NOTE | 2023-08-02 14:49 | PT.OTN ---
Current Diagnoses Multiple sclerosis (08/02/23) Physical Therapy Treatment Note PT-OP-A Visit Information Start: 09/24/22 09:30 Freq: Status: Active Protocol: Document 08/02/23 13:03 [facility] (Rec: 08/02/23 13:49 [facility] [id number]) Out-Patient Physical Therapy Visit Information Visit Information Visit Type Treatment Note Visit Note 11/29 post PN Visit Start Time 12:56 Visit Stop Time 13:45 Visit Number 42 Number of [employer] Visits 0 Evaluation Information Evaluation Date 09/24/22 Precautions Precautions MS, don't overfatigue, esophageal stenosis PT-OP-B Current Condition Start: 09/24/22 09:30 Freq: Status: Active Protocol: Document 08/02/23 13:03 [facility] (Rec: 08/02/23 13:49 [facility] [id number]) Current Condition History of Current Condition Onset Date March 2019 Current Complaints weakness due to MS, right shoulder pain, LBP History of Current Condition history MS with worsening weakness, as well as right shoulder pain (patient right handed). Patient has caregiver who assists her primarily with household tasks, HEP, walking. She uses a 4WW to walk short diestances (approx 30 feet) in the home, manual w /c for community mobility. No recent falls, but has history of falls. Reports was evaluated for power wheelchair recently but was denied. C/o right shoulder pain and tightness especially with reaching and propelling manual w/c. Well known to this PT for both land and aquatic- based PT. Prior Treatments and Tests prior PT; land and aquatic Future Testing and Treatments Planned nothing planned yet PT-OP-C Subjective Start: 09/24/22 09:30 Freq: Status: Active Protocol: Document 08/02/23 13:03 [facility] (Rec: 08/02/23 13:49 [facility] [id number]) OP-PT Subjective Patient Comments Patient Comments LBP past few days; since Wednesday. Doesn't know what she did. Also c/o right buttock pain when sitting on her couch PT-OP-D Balance Start: 09/24/22 09:30 Freq: Status: Active Protocol: Document 09/24/22 09:06 [facility] (Rec: 09/28/22 11:39 [facility] [id number]) Tinetti Balance Assessment Sitting Balance Sitting Balance Steady, safe Standing Balance Immediate Standing Balance Steady with support Turning Step Pattern Turning 360 Degrees Discontinuous steps Sitting Down Sitting Down Uses arms or unsteady Gait and Step Initiation of Gait Hesitancy, mult. attempts Right Foot Step Length Does not pass stance ft. Right Foot Step Height Does not clear floor Left Foot Step Length Does not pass stance foot Left Foot Step Height Does not clear floor Step Description Step Symmetry Step length appears equal Step Continuity Stopping or discontinuity Gait Description Path Description Mild/moderate deviation Trunk Description Marked sway or uses aide Walking Stance Heels apart Scoring and Interpretation Tinetti Composite Score (points) 5 PT-OP-E Functional Tests Start: 09/24/22 09:30 Freq: Status: Active Protocol: Document 09/24/22 09:06 [facility] (Rec: 09/28/22 11:39 [facility] [id number]) Functional Tests 2 Minute Walk Test Distance 127 Device Used 4WW PT-OP-G Mobility & Gait Start: 09/24/22 09:30 Freq: Status: Active Protocol: Document 09/24/22 09:06 [facility] (Rec: 09/28/22 11:39 [facility] [id number]) OP Mobility Evaluation Bed Mobility Supine to and from Sit indep Transfers Bed to Chair Transfers indep Car Transfers assisted Floor Transfers not performed OP Gait Assessment Gait Gait Assistance Required: Minimum Assistance Distance (Feet) 127 Assistive Devices Assistive Device Gait Belt,Front Wheeled Walker Orthotic/Prosthetic Devices or Brace: No Gait Deviations General Gait Pattern Decreased Stride Length, Decreased Feet Clearance, Flexed Trunk Factors Limiting Gait Function Factors Limiting Gait Function Abnormal Tonal Influences, Decreased Activity Tolerance, Decreased Strength,Pain Stair Climbing Evaluation Comments Stair Climbing Comments unable PT-OP-H Neuro Start: 09/24/22 09:30 Freq: Status: Active Protocol: Document 09/24/22 09:06 [facility] (Rec: 09/28/22 11:39 [facility] [id number]) Sensation Evaluation Gross Sensation Gross Sensation Left LE Impaired,Right LE Impaired,Trunk Impaired PT-OP-J Posture/Palpation/Skin Start: 09/24/22 09:30 Freq: Status: Active Protocol: Document 09/24/22 09:06 [facility] (Rec: 09/28/22 11:39 [facility] [id number]) Posture Evaluation Position Sitting Head/C-Spine Posture Forward Head Shoulder Posture (L) Rounded,(R) Rounded Shoulder Subluxation Position (L) Anterior,(R) Anterior Scapula Posture (L) Protracted,(R) Protracted Arm Posture (L) Internally Rotated,(R) Internally Rotated PT-OP-K Range of Motion Start: 09/24/22 09:30 Freq: Status: Active Protocol: Document 09/24/22 09:06 [facility] (Rec: 09/28/22 11:39 [facility] [id number]) Hip Goniometric Range of Motion Hip chelle Straight Leg Raise 145 Hip ROM Limitations Hip ROM Limitations Soft Tissue Tightness Ankle and Foot Goniometric Range of Motion Ankle and Foot chelle Dorsiflexion with Knee Flexed 0 Ankle and Foot ROM Limitations ROM Limitations Soft Tissue Tightness PT-OP-M Strength Start: 09/24/22 09:30 Freq: Status: Active Protocol: Document 09/24/22 09:31 [facility] (Rec: 09/24/22 10:22 [facility] [id number]) Trunk Strength Trunk Manual Muscle Testing Flexion 3- Fair- Extension 2+ Poor+ Rotation Left 3- Fair- Rotation Right 3- Fair- Lateral Flexion Left 3- Fair- Lateral Flexion Right 3- Fair- Scapula Strength Scapula Manual Muscle Testing chelle Elevation (C4) 4+ Good+ Adduction 3+ Fair+ Abduction 3 Fair Depression 3+ Fair+ Shoulder Strength Shoulder Manual Muscle Testing Left Flexion 4 Good Extension 4 Good Abduction (C5) 4 Good Adduction 4 Good External Rotation 4 Good Internal Rotation 4 Good Horizontal Abduction 4 Good Horizontal Adduction 4 Good Right Flexion 4 Good Extension 4 Good Abduction (C5) 4 Good Adduction 4 Good External Rotation 4 Good Internal Rotation 4 Good Horizontal Abduction 4 Good Horizontal Adduction 4 Good Elbow/Forearm Strength Elbow and Forearm Manual Muscle Testing Left Flexion (C6) 4 Good Extension (C7) 4 Good Right Comments pain with resisted flex,ab,ER Hip Strength Hip Manual Muscle Testing Left Flexion (L2) 4- Good- Abduction 3- Fair- Adduction 3+ Fair+ Right Flexion (L2) 4- Good- Abduction 2+ Poor+ Adduction 3+ Fair+ Knee Strength Knee Manual Muscle Testing Left Flexion (S2) 4 Good Extension (L3) 4 Good Right Flexion (S2) 4- Good- Extension (L3) 4- Good- Ankle/Foot Strength Ankle and Foot Manual Muscle Testing Left Dorsiflexion (L4) 3+ Fair+ Plantarflexion (S1) 3+ Fair+ Right Dorsiflexion (L4) 3+ Fair+ Plantarflexion (S1) 3+ Fair+ PT-OP-Q Treatments Start: 09/24/22 09:30 Freq: Status: Active Protocol: Document 08/02/23 13:03 [facility] (Rec: 08/02/23 13:49 [facility] [id number]) Cardio Equipment Recumbent Stepper (Sci-Fit) Duration (Minutes) 5 Resistance 1 Seat Position 13 Other 52 RPM, 0.40 mi Therapeutic Exercises Supine Exercises hip abd Equipment Used slider sheet Reps/Minutes 10x quad stretch Reps/Minutes 2x30 Comments legs over the side of the table SAQ Equipment Used 2# Reps/Minutes 10x trunk rotation Supine Exercise Name self LS & TS stretch Side bilateral Resistance AROM Equipment Used on mat table Reps/Minutes 30 x2 each side Comments Good mid thoracic and QL stretch&ROM- post manual IT band stretch Reps/Minutes 2x30 Comments manual figure 4 Side bilateral Resistance AROM Reps/Minutes 60 Comments good adductor/hip flexor stretch piriformis stretch Side bilateral Reps/Minutes 60 Comments manual HC stretch Supine Exercise Name added to HEP Side bilateral Equipment Used mesh chair Reps/Minutes 30 Comments Cued scoot front seat, hip hinge, LE front hip flexor stretch Side bilateral Resistance mat table BLEs off edge ( perpendicular to EOtable) Reps/Minutes 30-60 Comments good feedback hip flexor stretch Sitting Exercises rows, shoulder ext Resistance L2 TB Equipment Used seated on [employer] Reps/Minutes 10x PT-OP-T Assessment and Plan Start: 09/24/22 09:30 Freq: Status: Active Protocol: Document 08/02/23 13:03 [facility] (Rec: 08/02/23 13:49 [facility] [id number]) Physical Therapy Assessment Goals Three Impairment pain right shoulder and low back Impairment diffiuculty performing ADL's due to pain and pain in right shoulder limits gait due to heavy use of walker [employer]iller Goal (LTG) Patient to report at least 50% decrease in pain with all usual activities and be independent with HEP for purposes of core stab, shoulder strengthening and stab 12/24/22: patient reported decrease in shoulder pain during vacation with not having to wheel herself (used power w/c), but has increased since starting to wheel again. Dec c/o LBP. Goal progress 02/18/23: reports decrease in shoulder pain to 0-4/10. Hadn 't been having back pain until exacerbation 2 weeks ago which appears QL. 05/18/23: goal progress with both shoulder and back pain LTG Duration 08/16/23 One Impairment gait dysfunction Impairment 2 min walk test 127 ft, not able to tolerate 6 min walk test due to fatigue UE's from supporting body on walker and LE fatigue requiring 2 brief standing breaks, needing to stop at 2 min Short Term Goal (STG) Improve 2 min walk test to at least 150 ft as measure of improved functional gait 12/24/22: only able to ambulate 75 ft today and experienced giving way of left knee mcc through gait requiring mod assist to correct. 02/18/23: 2 min walk test 68 ft today, limited due to back pain and left leg giving way requiring her to sit 05/18/23: goal abandoned. See LTG STG Duration 06/21/23 [facility] Goal (LTG) Patient able to tolerate 6 min walk test with gait distance of at least 300 ft as measure of improved functional gait 05/18/23: goal modification due to inability to reach this goal: New goal: patient able to tolerate 3 min walk test and walk a distance of at least 150 feet. (current max is 109 ft) LTG Duration 08/16/23 Four Impairment weakness Impairment 5x sit to stand test 15 sec with moderate use of hands moderate core muscle weakness with less than anti-gravity strength Short Term Goal (STG) Patient to be independent and compliant with updated HEP for purposes of LE and trunk muscle strengthening 12/24/22: patient was on vacation 1 month, not as compliant, noting dec functional strength today. HEP has been updated. Goal progress 02/18/23: patient compliant with HEP, ongoing progression STG Duration goal met [facility]fp Goal (LTG) Patient able to perform 5x sit to stand test in 10 sec as measure of improved functional LE strength and demonstrate 1 grade improvement in trunk muscle strength for improved safety with ADL performance 02/18/23: 10 sec today with 5x sit to stand. Noting improved functional core strength, good goal progress 05/18/23: not able to retest due to patient activity intolerance today due to esophageal stenosis LTG Duration 08/16/23 Two Impairment balance dysfunction Impairment Tinetti gait and balance assessment 11/16 indicating patient at high risk for falls static standing 44 sec without holding on Short Term Goal (STG) Patient to be independent and compliant with gait and balance HEP 12/24/22: as above not as compliant to HEP and not ambulating while on vacation 02/18/23: 41 sec standing, limited by back pain 05/18/23: unable to retest due to esophageal stenosis with dec activity tolerance today STG Duration 04/20/23 [facility] Goal (LTG) Improve Tinetti gait and balance assessment score to moderate fall risk range to improve safety in the home and community improve static standing balance to at least 60 sec LTG Duration 08/16/23 Physical Therapy Plan Frequency and Duration Frequency of Treatment 1x/Week Duration of treatment (weeks) 12 Plan of Care Start Date 05/18/23 Plan of Care End Date 08/16/23 Therapeutic Interventions Therapeutic Interventions Balance Training,Home Exercise Program,Manual Therapy, Neuromuscular Re-education, Patient/Caregiver Education, Self-Care/Home Management,Soft Tissue Mobilization,Taping, Therapeutic Activities, Therapeutic Exercises Modalities Cold Pack/Ice Massage,Hot Packs Next Visit Focus/Plan Next Note Type Treatment Note Next Visit Plan POC: Gait training, closed chain exercises as tolerated. Core and LE strengthening and flexibility. Consider still work on transition supine to all 4's on large mat with further encouragement of rationale.
--- NOTE | 2023-08-09 08:02 | PT.OTRE ---
Current Diagnoses Multiple sclerosis (08/09/23) Past Medical History (Last Updated 02/24/23 @ 14:56 by Elizabeth Alonso DO) IUD (intrauterine device) in place Moderate mixed hyperlipidemia not requiring statin therapy Visit Care Team Role Provider Type Elizabeth Alonso DO Primary Care Provider Physician Specialty: Family Practice Address: [address] [place] [address], [address] Email: [email or web address] Rehan Zacarias MD Family Provider Non-Staff Specialty: Internal Medicine Address: [address] [place] [address] [address], [place], [address] Email: Rufino Umaña MD Attending Provider Non-Staff Referring Provider Specialty: Psychiatry Address: [address] [place] [address], [address], [address] Email: Physical Therapy Re-Evaluation PT-OP-A Visit Information Start: 09/24/22 09:30 Freq: Status: Active Protocol: Document 08/09/23 13:02 [facility] (Rec: 08/09/23 13:49 [facility] [id number]) Out-Patient Physical Therapy Visit Information Visit Information Visit Type Treatment Note Visit Note 12/29 post PN Visit Start Time 12:56 Visit Stop Time 13:45 Visit Number 48 Number of [employer] PROFESSOR Visits 0 Precautions Precautions MS, don't overfatigue, esophageal stenosis PT-OP-B Current Condition Start: 09/24/22 09:30 Freq: Status: Active Protocol: Document 08/09/23 13:02 [facility] (Rec: 08/09/23 13:49 [facility] [id number]) Current Condition History of Current Condition Onset Date March 2019 Current Complaints weakness due to MS, right shoulder pain, LBP History of Current Condition history MS with worsening weakness, as well as right shoulder pain (patient right handed). Patient has caregiver who assists her primarily with household tasks, HEP, walking. She uses a 4WW to walk short diestances (approx 30 feet) in the home, manual w /c for community mobility. No recent falls, but has history of falls. Reports was evaluated for power wheelchair recently but was denied. C/o right shoulder pain and tightness especially with reaching and propelling manual w/c. Well known to this PT for both land and aquatic- based PT. Prior Treatments and Tests prior PT; land and aquatic Future Testing and Treatments Planned nothing planned yet PT-OP-C Subjective Start: 09/24/22 09:30 Freq: Status: Active Protocol: Document 08/09/23 13:02 [facility] (Rec: 08/09/23 13:49 [facility] [id number]) OP-PT Subjective Patient Comments Patient Comments Reports family visiting, she wasn't able to do muchg exercise over the weekend. PT-OP-D Balance Start: 09/24/22 09:30 Freq: Status: Active Protocol: Document 09/24/22 09:06 [facility] (Rec: 09/28/22 11:39 [facility] [id number]) Tinetti Balance Assessment Sitting Balance Sitting Balance Steady, safe Standing Balance Immediate Standing Balance Steady with support Turning Step Pattern Turning 360 Degrees Discontinuous steps Sitting Down Sitting Down Uses arms or unsteady Gait and Step Initiation of Gait Hesitancy, mult. attempts Right Foot Step Length Does not pass stance ft. Right Foot Step Height Does not clear floor Left Foot Step Length Does not pass stance foot Left Foot Step Height Does not clear floor Step Description Step Symmetry Step length appears equal Step Continuity Stopping or discontinuity Gait Description Path Description Mild/moderate deviation Trunk Description Marked sway or uses aide Walking Stance Heels apart Scoring and Interpretation Tinetti Composite Score (points) 5 PT-OP-E Functional Tests Start: 09/24/22 09:30 Freq: Status: Active Protocol: Document 09/24/22 09:06 [facility] (Rec: 09/28/22 11:39 [facility] [id number]) Functional Tests 2 Minute Walk Test Distance 127 Device Used 4WW PT-OP-G Mobility & Gait Start: 09/24/22 09:30 Freq: Status: Active Protocol: Document 09/24/22 09:06 [facility] (Rec: 09/28/22 11:39 [facility] [id number]) OP Mobility Evaluation Bed Mobility Supine to and from Sit indep Transfers Bed to Chair Transfers indep Car Transfers assisted Floor Transfers not performed OP Gait Assessment Gait Gait Assistance Required: Minimum Assistance Distance (Feet) 127 Assistive Devices Assistive Device Gait Belt,Front Wheeled Walker Orthotic/Prosthetic Devices or Brace: No Gait Deviations General Gait Pattern Decreased Stride Length, Decreased Feet Clearance, Flexed Trunk Factors Limiting Gait Function Factors Limiting Gait Function Abnormal Tonal Influences, Decreased Activity Tolerance, Decreased Strength,Pain Stair Climbing Evaluation Comments Stair Climbing Comments unable PT-OP-H Neuro Start: 09/24/22 09:30 Freq: Status: Active Protocol: Document 09/24/22 09:06 [facility] (Rec: 09/28/22 11:39 [facility] [id number]) Sensation Evaluation Gross Sensation Gross Sensation Left LE Impaired,Right LE Impaired,Trunk Impaired PT-OP-J Posture/Palpation/Skin Start: 09/24/22 09:30 Freq: Status: Active Protocol: Document 09/24/22 09:06 [facility] (Rec: 09/28/22 11:39 [facility] [id number]) Posture Evaluation Position Sitting Head/C-Spine Posture Forward Head Shoulder Posture (L) Rounded,(R) Rounded Shoulder Subluxation Position (L) Anterior,(R) Anterior Scapula Posture (L) Protracted,(R) Protracted Arm Posture (L) Internally Rotated,(R) Internally Rotated PT-OP-K Range of Motion Start: 09/24/22 09:30 Freq: Status: Active Protocol: Document 09/24/22 09:06 [facility] (Rec: 09/28/22 11:39 [facility] [id number]) Hip Goniometric Range of Motion Hip Measured in Degrees chelle Straight Leg Raise 145 Hip ROM Limitations Hip ROM Limitations Soft Tissue Tightness Ankle and Foot Goniometric Range of Motion Ankle and Foot Measured in Degrees chelle Dorsiflexion with Knee Flexed 0 Ankle and Foot ROM Limitations ROM Limitations Soft Tissue Tightness PT-OP-M Strength Start: 09/24/22 09:30 Freq: Status: Active Protocol: Document 09/24/22 09:31 [facility] (Rec: 09/24/22 10:22 [facility] [id number]) Trunk Strength Trunk Manual Muscle Testing Flexion 3- Fair- Extension 2+ Poor+ Rotation Left 3- Fair- Rotation Right 3- Fair- Lateral Flexion Left 3- Fair- Lateral Flexion Right 3- Fair- Scapula Strength Scapula Manual Muscle Testing chelle Elevation (C4) 4+ Good+ Adduction 3+ Fair+ Abduction 3 Fair Depression 3+ Fair+ Shoulder Strength Shoulder Manual Muscle Testing Left Flexion 4 Good Extension 4 Good Abduction (C5) 4 Good Adduction 4 Good External Rotation 4 Good Internal Rotation 4 Good Horizontal Abduction 4 Good Horizontal Adduction 4 Good Right Flexion 4 Good Extension 4 Good Abduction (C5) 4 Good Adduction 4 Good External Rotation 4 Good Internal Rotation 4 Good Horizontal Abduction 4 Good Horizontal Adduction 4 Good Elbow/Forearm Strength Elbow and Forearm Manual Muscle Testing Left Flexion (C6) 4 Good Extension (C7) 4 Good Right Comments pain with resisted flex,ab,ER Hip Strength Hip Manual Muscle Testing Left Flexion (L2) 4- Good- Abduction 3- Fair- Adduction 3+ Fair+ Right Flexion (L2) 4- Good- Abduction 2+ Poor+ Adduction 3+ Fair+ Knee Strength Knee Manual Muscle Testing Left Flexion (S2) 4 Good Extension (L3) 4 Good Right Flexion (S2) 4- Good- Extension (L3) 4- Good- Ankle/Foot Strength Ankle and Foot Manual Muscle Testing Left Dorsiflexion (L4) 3+ Fair+ Plantarflexion (S1) 3+ Fair+ Right Dorsiflexion (L4) 3+ Fair+ Plantarflexion (S1) 3+ Fair+ PT-OP-Q Treatments Start: 09/24/22 09:30 Freq: Status: Active Protocol: Document 08/09/23 13:02 [facility] (Rec: 08/09/23 13:49 [facility] [id number]) Cardio Equipment Recumbent Stepper (Sci-Fit) Duration (Minutes) 5 Resistance 1 Seat Position 13 Other 60 max RPM, 0.57 mi (5.5 min) Therapeutic Exercises Sitting Exercises seated clam Resistance L2 TB Reps/Minutes 10x rows, shoulder ext Resistance L2 TB Equipment Used seated on Dynadisc, LE's on Dynadisc Reps/Minutes 10x hamstring curl Resistance L2 TB Equipment Used seated on Dynadisc, LE's on Dynadisc Reps/Minutes R 5 reps, L 18 reps Comments cued pull back fully lean backs Equipment Used seated on Dynadisc, LE's on Dynadisc Reps/Minutes 10x2 LAQ Side bilateral Resistance L2 TB Reps/Minutes 2x10 Comments target to kick to, R slight weaker than L sit<> stands Equipment Used hi-lo table, PT shoulder Reps/Minutes 5x2 resisted trunk rotation Sitting Exercise Name rotation Side bilateral Resistance L2 TB, therapist anchored Equipment Used seated on Dynadisc, LE's on Dynadisc Reps/Minutes x15 Standing Exercises standing Standing Exercise Name bal Reps/Minutes 10 sec x 2 TKE Comments next session again Gait Training Gait Activity //bars Description sidestep Device Used bars Level of Assistance CGA Distance/Duration 10 ft x 4 FWW Level of Assistance CGA Surface firm Distance/Duration 60ft, 20ft Treatment Focus activity toleranlce, strength, function Neuro Re-Education Treatment Balance Activities uneven surface sitting Details balloon volley Surface mat table sitting on blue disc , B ft on yellow disc Equipment dowel Reps/Duration 4 min standing balance bars Details stationary, wt shift Equipment //bars, GB Comments 2x30 PT-OP-T Assessment and Plan Start: 09/24/22 09:30 Freq: Status: Active Protocol: Document 08/09/23 13:02 [facility] (Rec: 08/09/23 13:49 [facility] [id number]) Physical Therapy Assessment Goals Three Impairment pain right shoulder and low back Impairment diffiuculty performing ADL's due to pain and pain in right shoulder limits gait due to heavy use of walker Usp Goal (LTG) Patient to report at least 50% decrease in pain with all usual activities and be independent with HEP for purposes of core stab, shoulder strengthening and stab 12/24/22: patient reported decrease in shoulder pain during vacation with not having to wheel herself (used power w/c), but has increased since starting to wheel again. Dec c/o LBP. Goal progress 02/18/23: reports decrease in shoulder pain to 0-4/10. Hadn 't been having back pain until exacerbation 2 weeks ago which appears QL. 05/18/23: goal progress with both shoulder and back pain 08/09/23: good goal progress, mostly met. LTG Duration 11/16/23 One Impairment gait dysfunction Impairment 2 min walk test 127 ft, not able to tolerate 6 min walk test due to fatigue UE's from supporting body on walker and LE fatigue requiring 2 brief standing breaks, needing to stop at 2 min Short Term Goal (STG) Improve 2 min walk test to at least 150 ft as measure of improved functional gait 12/24/22: only able to ambulate 75 ft today and experienced giving way of left knee jail through gait requiring mod assist to correct. 02/18/23: 2 min walk test 68 ft today, limited due to back pain and left leg giving way requiring her to sit 05/18/23: goal abandoned. See LTG STG Duration goal abandoned. Usp Goal (LTG) Patient able to tolerate 6 min walk test with gait distance of at least 300 ft as measure of improved functional gait 05/18/23: goal modification due to inability to reach this goal: New goal: patient able to tolerate 3 min walk test and walk a distance of at least 150 feet. (current max is 109 ft) 08/09/23: patient has been more limited in her walking tolerance due to increased weakness in her legs related to her MS LTG Duration 11/16/23 Four Impairment weakness Impairment 5x sit to stand test 15 sec with moderate use of hands moderate core muscle weakness with less than anti-gravity strength Short Term Goal (STG) Patient to be independent and compliant with updated HEP for purposes of LE and trunk muscle strengthening 12/24/22: patient was on vacation 1 month, not as compliant, noting dec functional strength today. HEP has been updated. Goal progress 02/18/23: patient compliant with HEP, ongoing progression STG Duration goal met Parts Room Clerk Goal (LTG) Patient able to perform 5x sit to stand test in 10 sec as measure of improved functional LE strength and demonstrate 1 grade improvement in trunk muscle strength for improved safety with ADL performance 02/18/23: 10 sec today with 5x sit to stand. Noting improved functional core strength, good goal progress 05/18/23: not able to retest due to patient activity intolerance today due to esophageal stenosis 08/09/23: improved ability since last retested, has had surgery for espophageal stenosis. 13 seconds today vs unable to perform last session LTG Duration 11/16/23 Two Impairment balance dysfunction Impairment Tinetti gait and balance assessment 11/16 indicating patient at high risk for falls static standing 44 sec without holding on Short Term Goal (STG) Patient to be independent and compliant with gait and balance HEP 12/24/22: as above not as compliant to HEP and not ambulating while on vacation 02/18/23: 41 sec standing, limited by back pain 05/18/23: unable to retest due to esophageal stenosis with dec activity tolerance today 08/09/23: has had more limited standing tolerance due to weakness from MS, 16 sec today STG Duration 09/19/23 Usp Goal (LTG) Improve Tinetti gait and balance assessment score to moderate fall risk range to improve safety in the home and community improve static standing balance to at least 60 sec LTG Duration 11/16/23 Assessment Summary Assessment Patient LE's continue to fatigue more quickly with gait , max 70 ft. Compliance with HEP inconsistent. Increased time with seated core and standing ex today with though frequent rest breaks. She plans to return to aquatic exercise when weather warmer. Physical Therapy Plan Frequency and Duration Frequency of Treatment 1x/Week Duration of treatment (weeks) 12 Plan of Care Start Date 08/16/23 Plan of Care End Date 11/16/23 Therapeutic Interventions Therapeutic Interventions Balance Training,Home Exercise Program,Manual Therapy, Neuromuscular Re-education, Patient/Caregiver Education, Self-Care/Home Management,Soft Tissue Mobilization,Taping, Therapeutic Activities, Therapeutic Exercises Modalities Cold Pack/Ice Massage,Hot Packs Next Visit Focus/Plan Next Note Type Treatment Note Next Visit Plan Increase standing and seated ex and activities, functional mat activities. Standing TKE .
--- NOTE | 2023-08-09 13:02 | PT.OPPOC ---
Physical, Occupational & Speech Therapy At [facility] Current Diagnoses Multiple sclerosis (08/09/23) Visit Care Team Role Provider Type Elizabeth Alonso DO Primary Care Provider Physician Specialty: Family Practice Address: [address] [place] [address], [address] Email: [email or web address] Rehan Zacarisa MD Family Provider Non-Staff Specialty: Internal Medicine Address: [address] [place] [address] [address], [place], [address] Email: Rufino Umaña MD Attending Provider Non-Staff Referring Provider Specialty: Psychiatry Address: [address] [place] [address], [address] Email: Plan Of Care PT-OP-T Assessment and Plan Start: 09/24/22 09:30 Freq: Status: Active Protocol: Document 08/09/23 13:02 [facility] (Rec: 08/09/23 13:49 [facility] [id number]) Physical Therapy Assessment Goals Three Impairment pain right shoulder and low back Impairment diffiuculty performing ADL's due to pain and pain in right shoulder limits gait due to heavy use of walker Roof Bolter Goal (LTG) Patient to report at least 50% decrease in pain with all usual activities and be independent with HEP for purposes of core stab, shoulder strengthening and stab 12/24/22: patient reported decrease in shoulder pain during vacation with not having to wheel herself (used power w/c), but has increased since starting to wheel again. Dec c/o LBP. Goal progress 02/18/23: reports decrease in shoulder pain to 0-4/10. Hadn 't been having back pain until exacerbation 2 weeks ago which appears QL. 05/18/23: goal progress with both shoulder and back pain 08/09/23: good goal progress, mostly met. LTG Duration 11/16/23 One Impairment gait dysfunction Impairment 2 min walk test 127 ft, not able to tolerate 6 min walk test due to fatigue UE's from supporting body on walker and LE fatigue requiring 2 brief standing breaks, needing to stop at 2 min Short Term Goal (STG) Improve 2 min walk test to at least 150 ft as measure of improved functional gait 12/24/22: only able to ambulate 75 ft today and experienced giving way of left knee snf through gait requiring mod assist to correct. 02/18/23: 2 min walk test 68 ft today, limited due to back pain and left leg giving way requiring her to sit 05/18/23: goal abandoned. See LTG STG Duration goal abandoned. Fdc Goal (LTG) Patient able to tolerate 6 min walk test with gait distance of at least 300 ft as measure of improved functional gait 05/18/23: goal modification due to inability to reach this goal: New goal: patient able to tolerate 3 min walk test and walk a distance of at least 150 feet. (current max is 109 ft) 08/09/23: patient has been more limited in her walking tolerance due to increased weakness in her legs related to her MS LTG Duration 11/16/23 Four Impairment weakness Impairment 5x sit to stand test 15 sec with moderate use of hands moderate core muscle weakness with less than anti-gravity strength Short Term Goal (STG) Patient to be independent and compliant with updated HEP for purposes of LE and trunk muscle strengthening 12/24/22: patient was on vacation 1 month, not as compliant, noting dec functional strength today. HEP has been updated. Goal progress 02/18/23: patient compliant with HEP, ongoing progression STG Duration goal met Fdc Goal (LTG) Patient able to perform 5x sit to stand test in 10 sec as measure of improved functional LE strength and demonstrate 1 grade improvement in trunk muscle strength for improved safety with ADL performance 02/18/23: 10 sec today with 5x sit to stand. Noting improved functional core strength, good goal progress 05/18/23: not able to retest due to patient activity intolerance today due to esophageal stenosis 08/09/23: improved ability since last retested, has had surgery for espophageal stenosis. 13 seconds today vs unable to perform last session LTG Duration 11/16/23 Two Impairment balance dysfunction Impairment Tinetti gait and balance assessment 11/16 indicating patient at high risk for falls static standing 44 sec without holding on Short Term Goal (STG) Patient to be independent and compliant with gait and balance HEP 12/24/22: as above not as compliant to HEP and not ambulating while on vacation 02/18/23: 41 sec standing, limited by back pain 05/18/23: unable to retest due to esophageal stenosis with dec activity tolerance today 08/09/23: has had more limited standing tolerance due to weakness from MS, 16 sec today STG Duration 09/19/23 Roof Bolter Goal (LTG) Improve Tinetti gait and balance assessment score to moderate fall risk range to improve safety in the home and community improve static standing balance to at least 60 sec LTG Duration 11/16/23 Assessment Summary Assessment Patient LE's continue to fatigue more quickly with gait , max 70 ft. Compliance with HEP inconsistent. Increased time with seated core and standing ex today with though frequent rest breaks. She plans to return to aquatic exercise when weather warmer. Physical Therapy Plan Frequency and Duration Frequency of Treatment 1x/Week Duration of treatment (weeks) 12 Plan of Care Start Date 08/16/23 Plan of Care End Date 11/16/23 Therapeutic Interventions Therapeutic Interventions Balance Training,Home Exercise Program,Manual Therapy, Neuromuscular Re-education, Patient/Caregiver Education, Self-Care/Home Management,Soft Tissue Mobilization,Taping, Therapeutic Activities, Therapeutic Exercises Modalities Cold Pack/Ice Massage,Hot Packs Next Visit Focus/Plan Next Note Type Treatment Note Next Visit Plan Increase standing and seated ex and activities, functional mat activities. Standing TKE . Plan of Care Plan of Care Start Date 08/16/23 Plan of Care End Date 11/16/23 Electronically Signed by: Bertha Redding, PT 09/01/23 0804 If you are in agreement with this Plan of Care, please return a signed and dated copy. I have reviewed this Plan of Care and certify that the skilled therapy services above are required to meet the patient?s needs. Physician Signature Date Printed Name and Credentials Clinical Instructor Signature Printed Name and Credentials
--- NOTE | 2023-08-09 15:40 | PT.OTN ---
Current Diagnoses Multiple sclerosis (08/09/23) Physical Therapy Treatment Note PT-OP-A Visit Information Start: 09/24/22 09:30 Freq: Status: Active Protocol: Document 08/09/23 13:02 [facility] (Rec: 08/09/23 13:49 [facility] [id number]) Out-Patient Physical Therapy Visit Information Visit Information Visit Type Treatment Note Visit Note 12/29 post PN Visit Start Time 12:56 Visit Stop Time 13:45 Visit Number 48 Number of ALUMINUM CAN COLLECTOR Visits 0 Precautions Precautions MS, don't overfatigue, esophageal stenosis PT-OP-B Current Condition Start: 09/24/22 09:30 Freq: Status: Active Protocol: Document 08/09/23 13:02 [facility] (Rec: 08/09/23 13:49 [facility] [id number]) Current Condition History of Current Condition Onset Date March 2019 Current Complaints weakness due to MS, right shoulder pain, LBP History of Current Condition history MS with worsening weakness, as well as right shoulder pain (patient right handed). Patient has caregiver who assists her primarily with household tasks, HEP, walking. She uses a 4WW to walk short diestances (approx 30 feet) in the home, manual w /c for community mobility. No recent falls, but has history of falls. Reports was evaluated for power wheelchair recently but was denied. C/o right shoulder pain and tightness especially with reaching and propelling manual w/c. Well known to this PT for both land and aquatic- based PT. Prior Treatments and Tests prior PT; land and aquatic Future Testing and Treatments Planned nothing planned yet PT-OP-C Subjective Start: 09/24/22 09:30 Freq: Status: Active Protocol: Document 08/09/23 13:02 [facility] (Rec: 08/09/23 13:49 [facility] [id number]) OP-PT Subjective Patient Comments Patient Comments Reports family visiting, she wasn't able to do muchg exercise over the weekend. PT-OP-D Balance Start: 09/24/22 09:30 Freq: Status: Active Protocol: Document 09/24/22 09:06 [facility] (Rec: 09/28/22 11:39 [facility] [id number]) Tinetti Balance Assessment Sitting Balance Sitting Balance Steady, safe Standing Balance Immediate Standing Balance Steady with support Turning Step Pattern Turning 360 Degrees Discontinuous steps Sitting Down Sitting Down Uses arms or unsteady Gait and Step Initiation of Gait Hesitancy, mult. attempts Right Foot Step Length Does not pass stance ft. Right Foot Step Height Does not clear floor Left Foot Step Length Does not pass stance foot Left Foot Step Height Does not clear floor Step Description Step Symmetry Step length appears equal Step Continuity Stopping or discontinuity Gait Description Path Description Mild/moderate deviation Trunk Description Marked sway or uses aide Walking Stance Heels apart Scoring and Interpretation Tinetti Composite Score (points) 5 PT-OP-E Functional Tests Start: 09/24/22 09:30 Freq: Status: Active Protocol: Document 09/24/22 09:06 [facility] (Rec: 09/28/22 11:39 [facility] [id number]) Functional Tests 2 Minute Walk Test Distance 127 Device Used 4WW PT-OP-G Mobility & Gait Start: 09/24/22 09:30 Freq: Status: Active Protocol: Document 09/24/22 09:06 [facility] (Rec: 09/28/22 11:39 [facility] [id number]) OP Mobility Evaluation Bed Mobility Supine to and from Sit indep Transfers Bed to Chair Transfers indep Car Transfers assisted Floor Transfers not performed OP Gait Assessment Gait Gait Assistance Required: Minimum Assistance Distance (Feet) 127 Assistive Devices Assistive Device Gait Belt,Front Wheeled Walker Orthotic/Prosthetic Devices or Brace: No Gait Deviations General Gait Pattern Decreased Stride Length, Decreased Feet Clearance, Flexed Trunk Factors Limiting Gait Function Factors Limiting Gait Function Abnormal Tonal Influences, Decreased Activity Tolerance, Decreased Strength,Pain Stair Climbing Evaluation Comments Stair Climbing Comments unable PT-OP-H Neuro Start: 09/24/22 09:30 Freq: Status: Active Protocol: Document 09/24/22 09:06 [facility] (Rec: 09/28/22 11:39 [facility] [id number]) Sensation Evaluation Gross Sensation Gross Sensation Left LE Impaired,Right LE Impaired,Trunk Impaired PT-OP-J Posture/Palpation/Skin Start: 09/24/22 09:30 Freq: Status: Active Protocol: Document 09/24/22 09:06 [facility] (Rec: 09/28/22 11:39 [facility] [id number]) Posture Evaluation Position Sitting Head/C-Spine Posture Forward Head Shoulder Posture (L) Rounded,(R) Rounded Shoulder Subluxation Position (L) Anterior,(R) Anterior Scapula Posture (L) Protracted,(R) Protracted Arm Posture (L) Internally Rotated,(R) Internally Rotated PT-OP-K Range of Motion Start: 09/24/22 09:30 Freq: Status: Active Protocol: Document 09/24/22 09:06 [facility] (Rec: 09/28/22 11:39 [facility] [id number]) Hip Goniometric Range of Motion Hip chelle Straight Leg Raise 145 Hip ROM Limitations Hip ROM Limitations Soft Tissue Tightness Ankle and Foot Goniometric Range of Motion Ankle and Foot chelle Dorsiflexion with Knee Flexed 0 Ankle and Foot ROM Limitations ROM Limitations Soft Tissue Tightness PT-OP-M Strength Start: 09/24/22 09:30 Freq: Status: Active Protocol: Document 09/24/22 09:31 [facility] (Rec: 09/24/22 10:22 [facility] [id number]) Trunk Strength Trunk Manual Muscle Testing Flexion 3- Fair- Extension 2+ Poor+ Rotation Left 3- Fair- Rotation Right 3- Fair- Lateral Flexion Left 3- Fair- Lateral Flexion Right 3- Fair- Scapula Strength Scapula Manual Muscle Testing chelle Elevation (C4) 4+ Good+ Adduction 3+ Fair+ Abduction 3 Fair Depression 3+ Fair+ Shoulder Strength Shoulder Manual Muscle Testing Left Flexion 4 Good Extension 4 Good Abduction (C5) 4 Good Adduction 4 Good External Rotation 4 Good Internal Rotation 4 Good Horizontal Abduction 4 Good Horizontal Adduction 4 Good Right Flexion 4 Good Extension 4 Good Abduction (C5) 4 Good Adduction 4 Good External Rotation 4 Good Internal Rotation 4 Good Horizontal Abduction 4 Good Horizontal Adduction 4 Good Elbow/Forearm Strength Elbow and Forearm Manual Muscle Testing Left Flexion (C6) 4 Good Extension (C7) 4 Good Right Comments pain with resisted flex,ab,ER Hip Strength Hip Manual Muscle Testing Left Flexion (L2) 4- Good- Abduction 3- Fair- Adduction 3+ Fair+ Right Flexion (L2) 4- Good- Abduction 2+ Poor+ Adduction 3+ Fair+ Knee Strength Knee Manual Muscle Testing Left Flexion (S2) 4 Good Extension (L3) 4 Good Right Flexion (S2) 4- Good- Extension (L3) 4- Good- Ankle/Foot Strength Ankle and Foot Manual Muscle Testing Left Dorsiflexion (L4) 3+ Fair+ Plantarflexion (S1) 3+ Fair+ Right Dorsiflexion (L4) 3+ Fair+ Plantarflexion (S1) 3+ Fair+ PT-OP-Q Treatments Start: 09/24/22 09:30 Freq: Status: Active Protocol: Document 08/09/23 13:02 [facility] (Rec: 08/09/23 13:49 [facility] [id number]) Cardio Equipment Recumbent Stepper (Sci-Fit) Duration (Minutes) 5 Resistance 1 Seat Position 13 Other 60 max RPM, 0.57 mi (5.5 min) Therapeutic Exercises Sitting Exercises seated clam Resistance L2 TB Reps/Minutes 10x rows, shoulder ext Resistance L2 TB Equipment Used seated on Dynadisc, LE's on [employer]adisc Reps/Minutes 10x hamstring curl Resistance L2 TB Equipment Used seated on [employer], LE's on [employer]isc Reps/Minutes R 5 reps, L 18 reps Comments cued pull back fully lean backs Equipment Used seated on [employer]ad[employer], LE's on [employer]adisc Reps/Minutes 10x2 LAQ Side bilateral Resistance L2 TB Reps/Minutes 2x10 Comments target to kick to, R slight weaker than L sit<> stands Equipment Used hi-lo table, PT shoulder Reps/Minutes 5x2 resisted trunk rotation Sitting Exercise Name rotation Side bilateral Resistance L2 TB, therapist anchored Equipment Used seated on [employer]ad[employer], LE's on [employer]adisc Reps/Minutes x15 Standing Exercises standing Standing Exercise Name bal Reps/Minutes 10 sec x 2 TKE Comments next session again Gait Training Gait Activity //bars Description sidestep Device Used bars Level of Assistance CGA Distance/Duration 10 ft x 4 FWW Level of Assistance CGA Surface firm Distance/Duration 60ft, 20ft Treatment Focus activity toleranlce, strength, function Neuro Re-Education Treatment Balance Activities uneven surface sitting Details balloon volley Surface mat table sitting on blue disc , B ft on yellow disc Equipment dowel Reps/Duration 4 min standing balance bars Details stationary, wt shift Equipment //bars, GB Comments 2x30 PT-OP-T Assessment and Plan Start: 09/24/22 09:30 Freq: Status: Active Protocol: Document 08/09/23 13:02 [facility] (Rec: 08/09/23 13:49 [facility] [id number]) Physical Therapy Assessment Goals Three Impairment pain right shoulder and low back Impairment diffiuculty performing ADL's due to pain and pain in right shoulder limits gait due to heavy use of walker Certification Officer Goal (LTG) Patient to report at least 50% decrease in pain with all usual activities and be independent with HEP for purposes of core stab, shoulder strengthening and stab 12/24/22: patient reported decrease in shoulder pain during vacation with not having to wheel herself (used power w/c), but has increased since starting to wheel again. Dec c/o LBP. Goal progress 02/18/23: reports decrease in shoulder pain to 0-4/10. Hadn 't been having back pain until exacerbation 2 weeks ago which appears QL. 05/18/23: goal progress with both shoulder and back pain 08/09/23: good goal progress, mostly met. LTG Duration 11/16/23 One Impairment gait dysfunction Impairment 2 min walk test 127 ft, not able to tolerate 6 min walk test due to fatigue UE's from supporting body on walker and LE fatigue requiring 2 brief standing breaks, needing to stop at 2 min Short Term Goal (STG) Improve 2 min walk test to at least 150 ft as measure of improved functional gait 12/24/22: only able to ambulate 75 ft today and experienced giving way of left knee senior care through gait requiring mod assist to correct. 02/18/23: 2 min walk test 68 ft today, limited due to back pain and left leg giving way requiring her to sit 05/18/23: goal abandoned. See LTG STG Duration goal abandoned. [facility] Goal (LTG) Patient able to tolerate 6 min walk test with gait distance of at least 300 ft as measure of improved functional gait 05/18/23: goal modification due to inability to reach this goal: New goal: patient able to tolerate 3 min walk test and walk a distance of at least 150 feet. (current max is 109 ft) 08/09/23: patient has been more limited in her walking tolerance due to increased weakness in her legs related to her MS LTG Duration 11/16/23 Four Impairment weakness Impairment 5x sit to stand test 15 sec with moderate use of hands moderate core muscle weakness with less than anti-gravity strength Short Term Goal (STG) Patient to be independent and compliant with updated HEP for purposes of LE and trunk muscle strengthening 12/24/22: patient was on vacation 1 month, not as compliant, noting dec functional strength today. HEP has been updated. Goal progress 02/18/23: patient compliant with HEP, ongoing progression STG Duration goal met Certification Officer Goal (LTG) Patient able to perform 5x sit to stand test in 10 sec as measure of improved functional LE strength and demonstrate 1 grade improvement in trunk muscle strength for improved safety with ADL performance 02/18/23: 10 sec today with 5x sit to stand. Noting improved functional core strength, good goal progress 05/18/23: not able to retest due to patient activity intolerance today due to esophageal stenosis 08/09/23: improved ability since last retested, has had surgery for espophageal stenosis. 13 seconds today vs unable to perform last session LTG Duration 11/16/23 Two Impairment balance dysfunction Impairment Tinetti gait and balance assessment 11/16 indicating patient at high risk for falls static standing 44 sec without holding on Short Term Goal (STG) Patient to be independent and compliant with gait and balance HEP 12/24/22: as above not as compliant to HEP and not ambulating while on vacation 02/18/23: 41 sec standing, limited by back pain 05/18/23: unable to retest due to esophageal stenosis with dec activity tolerance today 08/09/23: has had more limited standing tolerance due to weakness from MS, 16 sec today STG Duration 09/19/23 [facility] Goal (LTG) Improve Tinetti gait and balance assessment score to moderate fall risk range to improve safety in the home and community improve static standing balance to at least 60 sec LTG Duration 11/16/23 Assessment Summary Assessment Patient LE's continue to fatigue more quickly with gait , max 70 ft. Compliance with HEP inconsistent. Increased time with seated core and standing ex today with though frequent rest breaks. She plans to return to aquatic exercise when weather warmer. Physical Therapy Plan Frequency and Duration Frequency of Treatment 1x/Week Duration of treatment (weeks) 12 Plan of Care Start Date 05/18/23 Plan of Care End Date 08/16/23 Therapeutic Interventions Therapeutic Interventions Balance Training,Home Exercise Program,Manual Therapy, Neuromuscular Re-education, Patient/Caregiver Education, Self-Care/Home Management,Soft Tissue Mobilization,Taping, Therapeutic Activities, Therapeutic Exercises Modalities Cold Pack/Ice Massage,Hot Packs Next Visit Focus/Plan Next Note Type Treatment Note Next Visit Plan Increase standing and seated ex and activities, functional mat activities. Standing TKE .
--- NOTE | 2023-08-10 17:07 | PT.OTN ---
Current Diagnoses Multiple sclerosis (08/09/23) Physical Therapy Treatment Note PT-OP-A Visit Information Start: 09/24/22 09:30 Freq: Status: Active Protocol: Document 08/09/23 13:02 [facility] (Rec: 08/09/23 13:49 [facility] [id number]) Out-Patient Physical Therapy Visit Information Visit Information Visit Type Treatment Note Visit Note 12/29 post PN Visit Start Time 12:56 Visit Stop Time 13:45 Visit Number 48 Number of ASSISTANT NEWS DIRECTOR Visits 0 Precautions Precautions MS, don't overfatigue, esophageal stenosis PT-OP-B Current Condition Start: 09/24/22 09:30 Freq: Status: Active Protocol: Document 08/09/23 13:02 [facility] (Rec: 08/09/23 13:49 [facility] [id number]) Current Condition History of Current Condition Onset Date March 2019 Current Complaints weakness due to MS, right shoulder pain, LBP History of Current Condition history MS with worsening weakness, as well as right shoulder pain (patient right handed). Patient has caregiver who assists her primarily with household tasks, HEP, walking. She uses a 4WW to walk short diestances (approx 30 feet) in the home, manual w /c for community mobility. No recent falls, but has history of falls. Reports was evaluated for power wheelchair recently but was denied. C/o right shoulder pain and tightness especially with reaching and propelling manual w/c. Well known to this PT for both land and aquatic- based PT. Prior Treatments and Tests prior PT; land and aquatic Future Testing and Treatments Planned nothing planned yet PT-OP-C Subjective Start: 09/24/22 09:30 Freq: Status: Active Protocol: Document 08/09/23 13:02 [facility] (Rec: 08/09/23 13:49 [facility] [id number]) OP-PT Subjective Patient Comments Patient Comments Reports family visiting, she wasn't able to do muchg exercise over the weekend. PT-OP-D Balance Start: 09/24/22 09:30 Freq: Status: Active Protocol: Document 09/24/22 09:06 [facility] (Rec: 09/28/22 11:39 [facility] [id number]) Tinetti Balance Assessment Sitting Balance Sitting Balance Steady, safe Standing Balance Immediate Standing Balance Steady with support Turning Step Pattern Turning 360 Degrees Discontinuous steps Sitting Down Sitting Down Uses arms or unsteady Gait and Step Initiation of Gait Hesitancy, mult. attempts Right Foot Step Length Does not pass stance ft. Right Foot Step Height Does not clear floor Left Foot Step Length Does not pass stance foot Left Foot Step Height Does not clear floor Step Description Step Symmetry Step length appears equal Step Continuity Stopping or discontinuity Gait Description Path Description Mild/moderate deviation Trunk Description Marked sway or uses aide Walking Stance Heels apart Scoring and Interpretation Tinetti Composite Score (points) 5 PT-OP-E Functional Tests Start: 09/24/22 09:30 Freq: Status: Active Protocol: Document 09/24/22 09:06 [facility] (Rec: 09/28/22 11:39 [facility] [id number]) Functional Tests 2 Minute Walk Test Distance 127 Device Used 4WW PT-OP-G Mobility & Gait Start: 09/24/22 09:30 Freq: Status: Active Protocol: Document 09/24/22 09:06 [facility] (Rec: 09/28/22 11:39 [facility] [id number]) OP Mobility Evaluation Bed Mobility Supine to and from Sit indep Transfers Bed to Chair Transfers indep Car Transfers assisted Floor Transfers not performed OP Gait Assessment Gait Gait Assistance Required: Minimum Assistance Distance (Feet) 127 Assistive Devices Assistive Device Gait Belt,Front Wheeled Walker Orthotic/Prosthetic Devices or Brace: No Gait Deviations General Gait Pattern Decreased Stride Length, Decreased Feet Clearance, Flexed Trunk Factors Limiting Gait Function Factors Limiting Gait Function Abnormal Tonal Influences, Decreased Activity Tolerance, Decreased Strength,Pain Stair Climbing Evaluation Comments Stair Climbing Comments unable PT-OP-H Neuro Start: 09/24/22 09:30 Freq: Status: Active Protocol: Document 09/24/22 09:06 [facility] (Rec: 09/28/22 11:39 [facility] [id number]) Sensation Evaluation Gross Sensation Gross Sensation Left LE Impaired,Right LE Impaired,Trunk Impaired PT-OP-J Posture/Palpation/Skin Start: 09/24/22 09:30 Freq: Status: Active Protocol: Document 09/24/22 09:06 [facility] (Rec: 09/28/22 11:39 [facility] [id number]) Posture Evaluation Position Sitting Head/C-Spine Posture Forward Head Shoulder Posture (L) Rounded,(R) Rounded Shoulder Subluxation Position (L) Anterior,(R) Anterior Scapula Posture (L) Protracted,(R) Protracted Arm Posture (L) Internally Rotated,(R) Internally Rotated PT-OP-K Range of Motion Start: 09/24/22 09:30 Freq: Status: Active Protocol: Document 09/24/22 09:06 [facility] (Rec: 09/28/22 11:39 [facility] [id number]) Hip Goniometric Range of Motion Hip chelle Straight Leg Raise 145 Hip ROM Limitations Hip ROM Limitations Soft Tissue Tightness Ankle and Foot Goniometric Range of Motion Ankle and Foot chelle Dorsiflexion with Knee Flexed 0 Ankle and Foot ROM Limitations ROM Limitations Soft Tissue Tightness PT-OP-M Strength Start: 09/24/22 09:30 Freq: Status: Active Protocol: Document 09/24/22 09:31 [facility] (Rec: 09/24/22 10:22 [facility] [id number]) Trunk Strength Trunk Manual Muscle Testing Flexion 3- Fair- Extension 2+ Poor+ Rotation Left 3- Fair- Rotation Right 3- Fair- Lateral Flexion Left 3- Fair- Lateral Flexion Right 3- Fair- Scapula Strength Scapula Manual Muscle Testing chelle Elevation (C4) 4+ Good+ Adduction 3+ Fair+ Abduction 3 Fair Depression 3+ Fair+ Shoulder Strength Shoulder Manual Muscle Testing Left Flexion 4 Good Extension 4 Good Abduction (C5) 4 Good Adduction 4 Good External Rotation 4 Good Internal Rotation 4 Good Horizontal Abduction 4 Good Horizontal Adduction 4 Good Right Flexion 4 Good Extension 4 Good Abduction (C5) 4 Good Adduction 4 Good External Rotation 4 Good Internal Rotation 4 Good Horizontal Abduction 4 Good Horizontal Adduction 4 Good Elbow/Forearm Strength Elbow and Forearm Manual Muscle Testing Left Flexion (C6) 4 Good Extension (C7) 4 Good Right Comments pain with resisted flex,ab,ER Hip Strength Hip Manual Muscle Testing Left Flexion (L2) 4- Good- Abduction 3- Fair- Adduction 3+ Fair+ Right Flexion (L2) 4- Good- Abduction 2+ Poor+ Adduction 3+ Fair+ Knee Strength Knee Manual Muscle Testing Left Flexion (S2) 4 Good Extension (L3) 4 Good Right Flexion (S2) 4- Good- Extension (L3) 4- Good- Ankle/Foot Strength Ankle and Foot Manual Muscle Testing Left Dorsiflexion (L4) 3+ Fair+ Plantarflexion (S1) 3+ Fair+ Right Dorsiflexion (L4) 3+ Fair+ Plantarflexion (S1) 3+ Fair+ PT-OP-Q Treatments Start: 09/24/22 09:30 Freq: Status: Active Protocol: Document 08/09/23 13:02 [facility] (Rec: 08/09/23 13:49 [facility] [id number]) Cardio Equipment Recumbent Stepper (Sci-Fit) Duration (Minutes) 5 Resistance 1 Seat Position 13 Other 60 max RPM, 0.57 mi (5.5 min) Therapeutic Exercises Sitting Exercises seated clam Resistance L2 TB Reps/Minutes 10x rows, shoulder ext Resistance L2 TB Equipment Used seated on [employer]ad[employer], LE's on [employer]isc Reps/Minutes 10x hamstring curl Resistance L2 TB Equipment Used seated on [employer], LE's on [employer] Reps/Minutes R 5 reps, L 18 reps Comments cued pull back fully lean backs Equipment Used seated on [employer], LE's on [employer] Reps/Minutes 10x2 LAQ Side bilateral Resistance L2 TB Reps/Minutes 2x10 Comments target to kick to, R slight weaker than L sit<> stands Equipment Used hi-lo table, PT shoulder Reps/Minutes 5x2 resisted trunk rotation Sitting Exercise Name rotation Side bilateral Resistance L2 TB, therapist anchored Equipment Used seated on [employer], LE's on [employer]adisc Reps/Minutes x15 Standing Exercises standing Standing Exercise Name bal Reps/Minutes 10 sec x 2 TKE Comments next session again Gait Training Gait Activity //bars Description sidestep Treatment Focus 10 ft x 4 FWW Level of Assistance CGA Surface firm Distance/Duration 60ft, 20ft Treatment Focus activity toleranlce, strength, function PT-OP-T Assessment and Plan Start: 09/24/22 09:30 Freq: Status: Active Protocol: Document 08/09/23 13:02 [facility] (Rec: 08/09/23 13:49 [facility] [id number]) Physical Therapy Assessment Goals Three Impairment pain right shoulder and low back Impairment diffiuculty performing ADL's due to pain and pain in right shoulder limits gait due to heavy use of walker Assisted Goal (LTG) Patient to report at least 50% decrease in pain with all usual activities and be independent with HEP for purposes of core stab, shoulder strengthening and stab 12/24/22: patient reported decrease in shoulder pain during vacation with not having to wheel herself (used power w/c), but has increased since starting to wheel again. Dec c/o LBP. Goal progress 02/18/23: reports decrease in shoulder pain to 0-4/10. Hadn 't been having back pain until exacerbation 2 weeks ago which appears QL. 05/18/23: goal progress with both shoulder and back pain LTG Duration 08/16/23 One Impairment gait dysfunction Impairment 2 min walk test 127 ft, not able to tolerate 6 min walk test due to fatigue UE's from supporting body on walker and LE fatigue requiring 2 brief standing breaks, needing to stop at 2 min Short Term Goal (STG) Improve 2 min walk test to at least 150 ft as measure of improved functional gait 12/24/22: only able to ambulate 75 ft today and experienced giving way of left knee assisted through gait requiring mod assist to correct. 02/18/23: 2 min walk test 68 ft today, limited due to back pain and left leg giving way requiring her to sit 05/18/23: goal abandoned. See LTG STG Duration 06/21/23 Manufacturing Finance Manager Goal (LTG) Patient able to tolerate 6 min walk test with gait distance of at least 300 ft as measure of improved functional gait 05/18/23: goal modification due to inability to reach this goal: New goal: patient able to tolerate 3 min walk test and walk a distance of at least 150 feet. (current max is 109 ft) LTG Duration 08/16/23 Four Impairment weakness Impairment 5x sit to stand test 15 sec with moderate use of hands moderate core muscle weakness with less than anti-gravity strength Short Term Goal (STG) Patient to be independent and compliant with updated HEP for purposes of LE and trunk muscle strengthening 12/24/22: patient was on vacation 1 month, not as compliant, noting dec functional strength today. HEP has been updated. Goal progress 02/18/23: patient compliant with HEP, ongoing progression STG Duration goal met Assisted Goal (LTG) Patient able to perform 5x sit to stand test in 10 sec as measure of improved functional LE strength and demonstrate 1 grade improvement in trunk muscle strength for improved safety with ADL performance 02/18/23: 10 sec today with 5x sit to stand. Noting improved functional core strength, good goal progress 05/18/23: not able to retest due to patient activity intolerance today due to esophageal stenosis LTG Duration 08/16/23 Two Impairment balance dysfunction Impairment Tinetti gait and balance assessment 11/16 indicating patient at high risk for falls static standing 44 sec without holding on Short Term Goal (STG) Patient to be independent and compliant with gait and balance HEP 12/24/22: as above not as compliant to HEP and not ambulating while on vacation 02/18/23: 41 sec standing, limited by back pain 05/18/23: unable to retest due to esophageal stenosis with dec activity tolerance today STG Duration 04/20/23 Manufacturing Finance Manager Goal (LTG) Improve Tinetti gait and balance assessment score to moderate fall risk range to improve safety in the home and community improve static standing balance to at least 60 sec LTG Duration 08/16/23 Assessment Summary Assessment Patient LE's continue to fatigue more quickly with gait , max 70 ft. Compliance with HEP inconsistent. Increased time with seated core and standing ex today with though frequent rest breaks. She plans to return to aquatic exercise when weather warmer. Physical Therapy Plan Frequency and Duration Frequency of Treatment 1x/Week Duration of treatment (weeks) 12 Plan of Care Start Date 05/18/23 Plan of Care End Date 08/16/23 Therapeutic Interventions Therapeutic Interventions Balance Training,Home Exercise Program,Manual Therapy, Neuromuscular Re-education, Patient/Caregiver Education, Self-Care/Home Management,Soft Tissue Mobilization,Taping, Therapeutic Activities, Therapeutic Exercises Modalities Cold Pack/Ice Massage,Hot Packs Next Visit Focus/Plan Next Note Type Treatment Note Next Visit Plan Increase standing and seated ex and activities, functional mat activities. Standing TKE
--- NOTE | 2023-08-25 09:43 | PT-OP ANOTE ---
TUMBLER PLATER cancelled today's appt, PT needed to update POC.
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
--- NOTE | 2023-09-07 16:17 | PT.OTN ---
Current Diagnoses Multiple sclerosis (09/07/23) Physical Therapy Treatment Note PT-OP-A Visit Information Start: 09/24/22 09:30 Freq: Status: Active Protocol: Document 09/07/23 15:14 SAK (Rec: 09/07/23 16:16 [facility] [id number]) Out-Patient Physical Therapy Visit Information Visit Information Visit Type Treatment Note Visit Note 05/29 post PN Visit Start Time 15:15 Visit Stop Time 16:00 Visit Number 50 Number of BLAST FURNACE CHECKER Visits 0 Evaluation Information Evaluation Date 09/24/22 Precautions Precautions MS, don't overfatigue, esophageal stenosis PT-OP-B Current Condition Start: 09/24/22 09:30 Freq: Status: Active Protocol: Document 09/07/23 15:14 SAK (Rec: 09/07/23 16:16 [facility] [id number]) Current Condition History of Current Condition Onset Date March 2019 Current Complaints weakness due to MS, right shoulder pain, LBP History of Current Condition history MS with worsening weakness, as well as right shoulder pain (patient right handed). Patient has caregiver who assists her primarily with household tasks, HEP, walking. She uses a 4WW to walk short diestances (approx 30 feet) in the home, manual w /c for community mobility. No recent falls, but has history of falls. Reports was evaluated for power wheelchair recently but was denied. C/o right shoulder pain and tightness especially with reaching and propelling manual w/c. Well known to this PT for both land and aquatic- based PT. 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 PT-OP-D Balance Start: 09/24/22 09:30 Freq: Status: Active Protocol: Document 09/24/22 09:06 SAK (Rec: 09/28/22 11:39 [facility]AK [id number]) Tinetti Balance Assessment Sitting Balance Sitting Balance Steady, safe Standing Balance Immediate Standing Balance Steady with support Turning Step Pattern Turning 360 Degrees Discontinuous steps Sitting Down Sitting Down Uses arms or unsteady Gait and Step Initiation of Gait Hesitancy, mult. attempts Right Foot Step Length Does not pass stance ft. Right Foot Step Height Does not clear floor Left Foot Step Length Does not pass stance foot Left Foot Step Height Does not clear floor Step Description Step Symmetry Step length appears equal Step Continuity Stopping or discontinuity Gait Description Path Description Mild/moderate deviation Trunk Description Marked sway or uses aide Walking Stance Heels apart Scoring and Interpretation Tinetti Composite Score (points) 5 PT-OP-E Functional Tests Start: 09/24/22 09:30 Freq: Status: Active Protocol: Document 09/24/22 09:06 [facility] (Rec: 09/28/22 11:39 [facility] [id number]) Functional Tests 2 Minute Walk Test Distance 127 Device Used 4WW PT-OP-G Mobility & Gait Start: 09/24/22 09:30 Freq: Status: Active Protocol: Document 09/24/22 09:06 [facility] (Rec: 09/28/22 11:39 [facility] [id number]) OP Mobility Evaluation Bed Mobility Supine to and from Sit indep Transfers Bed to Chair Transfers indep Car Transfers assisted Floor Transfers not performed OP Gait Assessment Gait Gait Assistance Required: Minimum Assistance Distance (Feet) 127 Assistive Devices Assistive Device Gait Belt,Front Wheeled Walker Orthotic/Prosthetic Devices or Brace: No Gait Deviations General Gait Pattern Decreased Stride Length, Decreased Feet Clearance, Flexed Trunk Factors Limiting Gait Function Factors Limiting Gait Function Abnormal Tonal Influences, Decreased Activity Tolerance, Decreased Strength,Pain Stair Climbing Evaluation Comments Stair Climbing Comments unable PT-OP-H Neuro Start: 09/24/22 09:30 Freq: Status: Active Protocol: Document 09/24/22 09:06 [facility] (Rec: 09/28/22 11:39 [facility] [id number]) Sensation Evaluation Gross Sensation Gross Sensation Left LE Impaired,Right LE Impaired,Trunk Impaired PT-OP-J Posture/Palpation/Skin Start: 09/24/22 09:30 Freq: Status: Active Protocol: Document 09/24/22 09:06 [facility] (Rec: 09/28/22 11:39 [facility] [id number]) Posture Evaluation Position Sitting Head/C-Spine Posture Forward Head Shoulder Posture (L) Rounded,(R) Rounded Shoulder Subluxation Position (L) Anterior,(R) Anterior Scapula Posture (L) Protracted,(R) Protracted Arm Posture (L) Internally Rotated,(R) Internally Rotated PT-OP-K Range of Motion Start: 09/24/22 09:30 Freq: Status: Active Protocol: Document 09/24/22 09:06 [facility] (Rec: 09/28/22 11:39 [facility] [id number]) Hip Goniometric Range of Motion Hip chelle Straight Leg Raise 145 Hip ROM Limitations Hip ROM Limitations Soft Tissue Tightness Ankle and Foot Goniometric Range of Motion Ankle and Foot chelle Dorsiflexion with Knee Flexed 0 Ankle and Foot ROM Limitations ROM Limitations Soft Tissue Tightness PT-OP-M Strength Start: 09/24/22 09:30 Freq: Status: Active Protocol: Document 09/24/22 09:31 [facility] (Rec: 09/24/22 10:22 [facility] [id number]) Trunk Strength Trunk Manual Muscle Testing Flexion 3- Fair- Extension 2+ Poor+ Rotation Left 3- Fair- Rotation Right 3- Fair- Lateral Flexion Left 3- Fair- Lateral Flexion Right 3- Fair- Scapula Strength Scapula Manual Muscle Testing chelle Elevation (C4) 4+ Good+ Adduction 3+ Fair+ Abduction 3 Fair Depression 3+ Fair+ Shoulder Strength Shoulder Manual Muscle Testing Left Flexion 4 Good Extension 4 Good Abduction (C5) 4 Good Adduction 4 Good External Rotation 4 Good Internal Rotation 4 Good Horizontal Abduction 4 Good Horizontal Adduction 4 Good Right Flexion 4 Good Extension 4 Good Abduction (C5) 4 Good Adduction 4 Good External Rotation 4 Good Internal Rotation 4 Good Horizontal Abduction 4 Good Horizontal Adduction 4 Good Elbow/Forearm Strength Elbow and Forearm Manual Muscle Testing Left Flexion (C6) 4 Good Extension (C7) 4 Good Right Comments pain with resisted flex,ab,ER Hip Strength Hip Manual Muscle Testing Left Flexion (L2) 4- Good- Abduction 3- Fair- Adduction 3+ Fair+ Right Flexion (L2) 4- Good- Abduction 2+ Poor+ Adduction 3+ Fair+ Knee Strength Knee Manual Muscle Testing Left Flexion (S2) 4 Good Extension (L3) 4 Good Right Flexion (S2) 4- Good- Extension (L3) 4- Good- Ankle/Foot Strength Ankle and Foot Manual Muscle Testing Left Dorsiflexion (L4) 3+ Fair+ Plantarflexion (S1) 3+ Fair+ Right Dorsiflexion (L4) 3+ Fair+ Plantarflexion (S1) 3+ Fair+ PT-OP-Q Treatments Start: 09/24/22 09:30 Freq: Status: Active Protocol: Document 09/07/23 15:14 [facility] (Rec: 09/07/23 16:16 [facility] [id number]) Cardio Equipment Recumbent Stepper (Sci-Fit) Other refused due to left thigh discomfort, still healing Therapeutic Exercises Supine Exercises figure 4 Side bilateral Resistance AROM Reps/Minutes 60 Comments good adductor/hip flexor stretch HC stretch Supine Exercise Name added to HEP Side bilateral Equipment Used mesh chair Reps/Minutes 30 Comments Cued scoot front seat, hip hinge, LE front hip flexor stretch Side bilateral Resistance mat table BLEs off edge ( perpendicular to EOtable) Reps/Minutes 30-60 Comments good feedback hip flexor stretch SKTC Supine Exercise Name SKTC and ER Side bilateral Reps/Minutes 2x30 Comments manual Sitting Exercises rows, shoulder ext Resistance L2 TB Equipment Used seated on Dynadisc Reps/Minutes 10x Comments more difficulty with bal hamstring curl Resistance L2 TB Equipment Used seated on Dynadisc Reps/Minutes 1x10 each LE Comments difficulty with balance and weaker HS today lean backs Sitting Exercise Name too sore, muscle spasms LAQ Side bilateral Resistance L2 TB Equipment Used Therapist anchored under table Reps/Minutes 7x L, 5x R seated on dynadisc Comments weaker today, unable to finish 10 chelle sit<> stands Equipment Used w/c to stand at walker, more unsteady upon standing Reps/Minutes 4x Comments pins needle mid thigh to feet /p 1st set resisted trunk rotation Sitting Exercise Name not done due to muscle spasms Gait Training Gait Activity FWW Level of Assistance CGA, aide following with w/c Surface firm Distance/Duration 45, 12 ft Treatment Focus activity toleranlce, strength, function Comments Patient right LE giving way requiring sit Manual Therapy Treatment Soft Tissue Mobilization lumbar spine, TFL Body Location chelle Mobilization Type Myofascial Release,Strumming Intensity/Depth Moderate Body Position left s/l PT-OP-T Assessment and Plan Start: 09/24/22 09:30 Freq: Status: Active Protocol: Document 09/07/23 15:14 [facility] (Rec: 09/07/23 16:16 [facility] [id number]) Physical Therapy Assessment Goals Three Impairment pain right shoulder and low back Impairment diffiuculty performing ADL's due to pain and pain in right shoulder limits gait due to heavy use of walker Senior Care Goal (LTG) Patient to report at least 50% decrease in pain with all usual activities and be independent with HEP for purposes of core stab, shoulder strengthening and stab 12/24/22: patient reported decrease in shoulder pain during vacation with not having to wheel herself (used power w/c), but has increased since starting to wheel again. Dec c/o LBP. Goal progress 02/18/23: reports decrease in shoulder pain to 0-4/10. Hadn 't been having back pain until exacerbation 2 weeks ago which appears QL. 05/18/23: goal progress with both shoulder and back pain 08/09/23: good goal progress, mostly met. LTG Duration 11/16/23 One Impairment gait dysfunction Impairment 2 min walk test 127 ft, not able to tolerate 6 min walk test due to fatigue UE's from supporting body on walker and LE fatigue requiring 2 brief standing breaks, needing to stop at 2 min Short Term Goal (STG) Improve 2 min walk test to at least 150 ft as measure of improved functional gait 12/24/22: only able to ambulate 75 ft today and experienced giving way of left knee retirement through gait requiring mod assist to correct. 02/18/23: 2 min walk test 68 ft today, limited due to back pain and left leg giving way requiring her to sit 05/18/23: goal abandoned. See LTG STG Duration goal abandoned. Senior Care Goal (LTG) Patient able to tolerate 6 min walk test with gait distance of at least 300 ft as measure of improved functional gait 05/18/23: goal modification due to inability to reach this goal: New goal: patient able to tolerate 3 min walk test and walk a distance of at least 150 feet. (current max is 109 ft) 08/09/23: patient has been more limited in her walking tolerance due to increased weakness in her legs related to her MS LTG Duration 11/16/23 Four Impairment weakness Impairment 5x sit to stand test 15 sec with moderate use of hands moderate core muscle weakness with less than anti-gravity strength Short Term Goal (STG) Patient to be independent and compliant with updated HEP for purposes of LE and trunk muscle strengthening 12/24/22: patient was on vacation 1 month, not as compliant, noting dec functional strength today. HEP has been updated. Goal progress 02/18/23: patient compliant with HEP, ongoing progression STG Duration goal met Senior Care Goal (LTG) Patient able to perform 5x sit to stand test in 10 sec as measure of improved functional LE strength and demonstrate 1 grade improvement in trunk muscle strength for improved safety with ADL performance 02/18/23: 10 sec today with 5x sit to stand. Noting improved functional core strength, good goal progress 05/18/23: not able to retest due to patient activity intolerance today due to esophageal stenosis 08/09/23: improved ability since last retested, has had surgery for espophageal stenosis. 13 seconds today vs unable to perform last session LTG Duration 11/16/23 Two Impairment balance dysfunction Impairment Tinetti gait and balance assessment 11/16 indicating patient at high risk for falls static standing 44 sec without holding on Short Term Goal (STG) Patient to be independent and compliant with gait and balance HEP 12/24/22: as above not as compliant to HEP and not ambulating while on vacation 02/18/23: 41 sec standing, limited by back pain 05/18/23: unable to retest due to esophageal stenosis with dec activity tolerance today 08/09/23: has had more limited standing tolerance due to weakness from MS, 16 sec today STG Duration 09/19/23 Senior Care Goal (LTG) Improve Tinetti gait and balance assessment score to moderate fall risk range to improve safety in the home and community improve static standing balance to at least 60 sec LTG Duration 11/16/23 Assessment Summary Assessment Patient having more difficulty with all activities today, 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 Muscle spasms in low back and hips today, dec with manual. Physical Therapy Plan Frequency and Duration Frequency of Treatment 1x/Week Duration of treatment (weeks) 12 Plan of Care Start Date 08/16/23 Plan of Care End Date 11/16/23 Therapeutic Interventions Therapeutic Interventions Balance Training,Home Exercise Program,Manual Therapy, Neuromuscular Re-education, Patient/Caregiver Education, Self-Care/Home Management,Soft Tissue Mobilization,Taping, Therapeutic Activities, Therapeutic Exercises Modalities Cold Pack/Ice Massage,Hot Packs Next Visit Focus/Plan Next Note Type Treatment Note Next Visit Plan Increase standing and seated ex and activities, functional mat activities. Standing TKE as chuck.
--- NOTE | 2023-09-17 13:45 | PT.OTN ---
Addendum entered and electronically signed by Linda Alba PTA 09/17/23 15:27: VILMA Mckeon provided over see training to [employer] Emerson throughout tx with permission of pt. Original Note: Current Diagnoses Multiple sclerosis (09/17/23) Physical Therapy Treatment Note PT-OP-A Visit Information Start: 09/24/22 09:30 Freq: Status: Active Protocol: Document 09/17/23 13:45 TS (Rec: 09/17/23 14:54 TS [id number]) Out-Patient Physical Therapy Visit Information Visit Information Visit Type Treatment Note Visit Note 06/29 post PN Visit Start Time 13:45 Visit Stop Time 14:25 Visit Number 40 Number of [employer]AD[employer] Visits 1 PT-OP-B Current Condition Start: 09/24/22 09:30 Freq: Status: Active Protocol: Document 09/07/23 15:14 SAK (Rec: 09/07/23 16:16 SAK [id number]) Current Condition History of Current Condition Onset Date March 2019 Current Complaints weakness due to MS, right shoulder pain, LBP History of Current Condition history MS with worsening weakness, as well as right shoulder pain (patient right handed). Patient has caregiver who assists her primarily with household tasks, HEP, walking. She uses a 4WW to walk short diestances (approx 30 feet) in the home, manual w /c for community mobility. No recent falls, but has history of falls. Reports was evaluated for power wheelchair recently but was denied. C/o right shoulder pain and tightness especially with reaching and propelling manual w/c. Well known to this PT for both land and aquatic- based PT. Prior Treatments and Tests prior PT; land and aquatic Future Testing and Treatments Planned nothing planned yet PT-OP-C Subjective Start: 09/24/22 09:30 Freq: Status: Active Protocol: Document 09/17/23 13:45 TS (Rec: 09/17/23 14:54 TS [id number]) OP-PT Subjective Patient Comments Patient Comments Eal reports no back spasms today. She is doing some of her home ex but not as much as she should. PT-OP-D Balance Start: 09/24/22 09:30 Freq: Status: Active Protocol: Document 09/24/22 09:06 SAK (Rec: 09/28/22 11:39 SAK [id number]) Tinetti Balance Assessment Sitting Balance Sitting Balance Steady, safe Standing Balance Immediate Standing Balance Steady with support Turning Step Pattern Turning 360 Degrees Discontinuous steps Sitting Down Sitting Down Uses arms or unsteady Gait and Step Initiation of Gait Hesitancy, mult. attempts Right Foot Step Length Does not pass stance ft. Right Foot Step Height Does not clear floor Left Foot Step Length Does not pass stance foot Left Foot Step Height Does not clear floor Step Description Step Symmetry Step length appears equal Step Continuity Stopping or discontinuity Gait Description Path Description Mild/moderate deviation Trunk Description Marked sway or uses aide Walking Stance Heels apart Scoring and Interpretation Tinetti Composite Score (points) 5 PT-OP-E Functional Tests Start: 09/24/22 09:30 Freq: Status: Active Protocol: Document 09/24/22 09:06 [facility] (Rec: 09/28/22 11:39 [facility] [id number]) Functional Tests 2 Minute Walk Test Distance 127 Device Used 4WW PT-OP-G Mobility & Gait Start: 09/24/22 09:30 Freq: Status: Active Protocol: Document 09/24/22 09:06 [facility] (Rec: 09/28/22 11:39 [facility] [id number]) OP Mobility Evaluation Bed Mobility Supine to and from Sit indep Transfers Bed to Chair Transfers indep Car Transfers assisted Floor Transfers not performed OP Gait Assessment Gait Gait Assistance Required: Minimum Assistance Distance (Feet) 127 Assistive Devices Assistive Device Gait Belt,Front Wheeled Walker Orthotic/Prosthetic Devices or Brace: No Gait Deviations General Gait Pattern Decreased Stride Length, Decreased Feet Clearance, Flexed Trunk Factors Limiting Gait Function Factors Limiting Gait Function Abnormal Tonal Influences, Decreased Activity Tolerance, Decreased Strength,Pain Stair Climbing Evaluation Comments Stair Climbing Comments unable PT-OP-H Neuro Start: 09/24/22 09:30 Freq: Status: Active Protocol: Document 09/24/22 09:06 [facility] (Rec: 09/28/22 11:39 [facility] [id number]) Sensation Evaluation Gross Sensation Gross Sensation Left LE Impaired,Right LE Impaired,Trunk Impaired PT-OP-J Posture/Palpation/Skin Start: 09/24/22 09:30 Freq: Status: Active Protocol: Document 09/24/22 09:06 [facility] (Rec: 09/28/22 11:39 [facility] [id number]) Posture Evaluation Position Sitting Head/C-Spine Posture Forward Head Shoulder Posture (L) Rounded,(R) Rounded Shoulder Subluxation Position (L) Anterior,(R) Anterior Scapula Posture (L) Protracted,(R) Protracted Arm Posture (L) Internally Rotated,(R) Internally Rotated PT-OP-K Range of Motion Start: 09/24/22 09:30 Freq: Status: Active Protocol: Document 09/24/22 09:06 [facility] (Rec: 09/28/22 11:39 [facility] [id number]) Hip Goniometric Range of Motion Hip chelle Straight Leg Raise 145 Hip ROM Limitations Hip ROM Limitations Soft Tissue Tightness Ankle and Foot Goniometric Range of Motion Ankle and Foot chelle Dorsiflexion with Knee Flexed 0 Ankle and Foot ROM Limitations ROM Limitations Soft Tissue Tightness PT-OP-M Strength Start: 09/24/22 09:30 Freq: Status: Active Protocol: Document 09/24/22 09:31 [facility] (Rec: 09/24/22 10:22 [facility] [id number]) Trunk Strength Trunk Manual Muscle Testing Flexion 3- Fair- Extension 2+ Poor+ Rotation Left 3- Fair- Rotation Right 3- Fair- Lateral Flexion Left 3- Fair- Lateral Flexion Right 3- Fair- Scapula Strength Scapula Manual Muscle Testing chelle Elevation (C4) 4+ Good+ Adduction 3+ Fair+ Abduction 3 Fair Depression 3+ Fair+ Shoulder Strength Shoulder Manual Muscle Testing Left Flexion 4 Good Extension 4 Good Abduction (C5) 4 Good Adduction 4 Good External Rotation 4 Good Internal Rotation 4 Good Horizontal Abduction 4 Good Horizontal Adduction 4 Good Right Flexion 4 Good Extension 4 Good Abduction (C5) 4 Good Adduction 4 Good External Rotation 4 Good Internal Rotation 4 Good Horizontal Abduction 4 Good Horizontal Adduction 4 Good Elbow/Forearm Strength Elbow and Forearm Manual Muscle Testing Left Flexion (C6) 4 Good Extension (C7) 4 Good Right Comments pain with resisted flex,ab,ER Hip Strength Hip Manual Muscle Testing Left Flexion (L2) 4- Good- Abduction 3- Fair- Adduction 3+ Fair+ Right Flexion (L2) 4- Good- Abduction 2+ Poor+ Adduction 3+ Fair+ Knee Strength Knee Manual Muscle Testing Left Flexion (S2) 4 Good Extension (L3) 4 Good Right Flexion (S2) 4- Good- Extension (L3) 4- Good- Ankle/Foot Strength Ankle and Foot Manual Muscle Testing Left Dorsiflexion (L4) 3+ Fair+ Plantarflexion (S1) 3+ Fair+ Right Dorsiflexion (L4) 3+ Fair+ Plantarflexion (S1) 3+ Fair+ PT-OP-Q Treatments Start: 09/24/22 09:30 Freq: Status: Active Protocol: Document 09/17/23 13:45 TS (Rec: 09/17/23 14:54 TS [id number]) Therapeutic Exercises Supine Exercises piriformis stretch Side bilateral Reps/Minutes 60 Comments cued for sequencing HC stretch Supine Exercise Name HEP Side bilateral Equipment Used mesh chair Reps/Minutes 30 Comments Cued scoot front seat, hip hinge, LE front, feeling a little stretch hip flexor stretch Side bilateral Resistance mat table BLEs off edge ( perpendicular to EOtable) Reps/Minutes 60 Comments good feedback hip flexor stretch Sitting Exercises rows, shoulder ext Resistance L2 TB Equipment Used seated on Dynadisc Reps/Minutes 2x10 Comments Dynadisc removed from under feet for improved balance Standing Exercises sidestepping Equipment Used // Reps/Minutes 2x10 Comments Pt reports wbers 40% through arms on // bars, UE's on both bars march Equipment Used // Reps/Minutes 2x10 Comments Fatigued quickly, had some buckling of LE's Gait Training Gait Activity FWW Level of Assistance CGA, aide following with w/c Surface firm Distance/Duration 50, 15 ft Treatment Focus activity toleranlce, strength, function Comments Patient right LE giving way requiring sit x2 PT-OP-T Assessment and Plan Start: 09/24/22 09:30 Freq: Status: Active Protocol: Document 09/17/23 13:45 TS (Rec: 09/17/23 14:54 TS [id number]) Physical Therapy Assessment Goals Three Impairment pain right shoulder and low back Impairment diffiuculty performing ADL's due to pain and pain in right shoulder limits gait due to heavy use of walker Retirement Goal (LTG) Patient to report at least 50% decrease in pain with all usual activities and be independent with HEP for purposes of core stab, shoulder strengthening and stab 12/24/22: patient reported decrease in shoulder pain during vacation with not having to wheel herself (used power w/c), but has increased since starting to wheel again. Dec c/o LBP. Goal progress 02/18/23: reports decrease in shoulder pain to 0-4/10. Hadn 't been having back pain until exacerbation 2 weeks ago which appears QL. 05/18/23: goal progress with both shoulder and back pain 08/09/23: good goal progress, mostly met. LTG Duration 11/16/23 One Impairment gait dysfunction Impairment 2 min walk test 127 ft, not able to tolerate 6 min walk test due to fatigue UE's from supporting body on walker and LE fatigue requiring 2 brief standing breaks, needing to stop at 2 min Short Term Goal (STG) Improve 2 min walk test to at least 150 ft as measure of improved functional gait 12/24/22: only able to ambulate 75 ft today and experienced giving way of left knee mcc through gait requiring mod assist to correct. 02/18/23: 2 min walk test 68 ft today, limited due to back pain and left leg giving way requiring her to sit 05/18/23: goal abandoned. See LTG STG Duration goal abandoned. [employer] Goal (LTG) Patient able to tolerate 6 min walk test with gait distance of at least 300 ft as measure of improved functional gait 05/18/23: goal modification due to inability to reach this goal: New goal: patient able to tolerate 3 min walk test and walk a distance of at least 150 feet. (current max is 109 ft) 08/09/23: patient has been more limited in her walking tolerance due to increased weakness in her legs related to her MS LTG Duration 11/16/23 Four Impairment weakness Impairment 5x sit to stand test 15 sec with moderate use of hands moderate core muscle weakness with less than anti-gravity strength Short Term Goal (STG) Patient to be independent and compliant with updated HEP for purposes of LE and trunk muscle strengthening 12/24/22: patient was on vacation 1 month, not as compliant, noting dec functional strength today. HEP has been updated. Goal progress 02/18/23: patient compliant with HEP, ongoing progression STG Duration goal met Retirement Goal (LTG) Patient able to perform 5x sit to stand test in 10 sec as measure of improved functional LE strength and demonstrate 1 grade improvement in trunk muscle strength for improved safety with ADL performance 02/18/23: 10 sec today with 5x sit to stand. Noting improved functional core strength, good goal progress 05/18/23: not able to retest due to patient activity intolerance today due to esophageal stenosis 08/09/23: improved ability since last retested, has had surgery for espophageal stenosis. 13 seconds today vs unable to perform last session LTG Duration 11/16/23 Two Impairment balance dysfunction Impairment Tinetti gait and balance assessment 11/16 indicating patient at high risk for falls static standing 44 sec without holding on Short Term Goal (STG) Patient to be independent and compliant with gait and balance HEP 12/24/22: as above not as compliant to HEP and not ambulating while on vacation 02/18/23: 41 sec standing, limited by back pain 05/18/23: unable to retest due to esophageal stenosis with dec activity tolerance today 08/09/23: has had more limited standing tolerance due to weakness from MS, 16 sec today STG Duration 09/19/23 [employer] Goal (LTG) Improve Tinetti gait and balance assessment score to moderate fall risk range to improve safety in the home and community improve static standing balance to at least 60 sec LTG Duration 11/16/23 Assessment Summary Assessment Patient is having increased difficulty with rows with dynadisc under feet and glutes , removed dyandisc from feet and balance improved. During gait she required frequent rest breaks due to fatigue. LE 's tend to buckle at times. Physical Therapy Plan Next Visit Focus/Plan Next Note Type Treatment Note Next Visit Plan Increase standing and seated ex and activities, functional mat activities. Standing TKE as chuck.
--- NOTE | 2023-09-21 15:12 | PT.OTN ---
Current Diagnoses Multiple sclerosis (09/21/23) Physical Therapy Treatment Note PT-OP-A Visit Information Start: 09/24/22 09:30 Freq: Status: Active Protocol: Document 09/21/23 14:34 SP (Rec: 09/21/23 15:39 SP [id number]) Out-Patient Physical Therapy Visit Information Visit Information Visit Type Treatment Note Visit Note 07/29 post PN Visit Start Time 14:34 Visit Stop Time 15:12 Visit Number 52 Number of OUTSOLE ROUNDER Visits 2 Precautions Precautions MS, don't overfatigue, esophageal stenosis PT-OP-B Current Condition Start: 09/24/22 09:30 Freq: Status: Active Protocol: Document 09/07/23 15:14 SAK (Rec: 09/07/23 16:16 SAK [id number]) Current Condition History of Current Condition Onset Date March 2019 Current Complaints weakness due to MS, right shoulder pain, LBP History of Current Condition history MS with worsening weakness, as well as right shoulder pain (patient right handed). Patient has caregiver who assists her primarily with household tasks, HEP, walking. She uses a 4WW to walk short diestances (approx 30 feet) in the home, manual w /c for community mobility. No recent falls, but has history of falls. Reports was evaluated for power wheelchair recently but was denied. C/o right shoulder pain and tightness especially with reaching and propelling manual w/c. Well known to this PT for both land and aquatic- based PT. Prior Treatments and Tests prior PT; land and aquatic Future Testing and Treatments Planned nothing planned yet PT-OP-C Subjective Start: 09/24/22 09:30 Freq: Status: Active Protocol: Document 09/21/23 14:34 SP (Rec: 09/21/23 15:39 SP [id number]) OP-PT Subjective Patient Comments Patient Comments Pt reports was tired after last tx. She went to Neurologist today. PT-OP-D Balance Start: 09/24/22 09:30 Freq: Status: Active Protocol: Document 09/24/22 09:06 SAK (Rec: 09/28/22 11:39 SAK [id number]) Tinetti Balance Assessment Sitting Balance Sitting Balance Steady, safe Standing Balance Immediate Standing Balance Steady with support Turning Step Pattern Turning 360 Degrees Discontinuous steps Sitting Down Sitting Down Uses arms or unsteady Gait and Step Initiation of Gait Hesitancy, mult. attempts Right Foot Step Length Does not pass stance ft. Right Foot Step Height Does not clear floor Left Foot Step Length Does not pass stance foot Left Foot Step Height Does not clear floor Step Description Step Symmetry Step length appears equal Step Continuity Stopping or discontinuity Gait Description Path Description Mild/moderate deviation Trunk Description Marked sway or uses aide Walking Stance Heels apart Scoring and Interpretation Tinetti Composite Score (points) 5 PT-OP-E Functional Tests Start: 09/24/22 09:30 Freq: Status: Active Protocol: Document 09/24/22 09:06 [facility] (Rec: 09/28/22 11:39 [facility] [id number]) Functional Tests 2 Minute Walk Test Distance 127 Device Used 4WW PT-OP-G Mobility & Gait Start: 09/24/22 09:30 Freq: Status: Active Protocol: Document 09/24/22 09:06 [facility] (Rec: 09/28/22 11:39 [facility] [id number]) OP Mobility Evaluation Bed Mobility Supine to and from Sit indep Transfers Bed to Chair Transfers indep Car Transfers assisted Floor Transfers not performed OP Gait Assessment Gait Gait Assistance Required: Minimum Assistance Distance (Feet) 127 Assistive Devices Assistive Device Gait Belt,Front Wheeled Walker Orthotic/Prosthetic Devices or Brace: No Gait Deviations General Gait Pattern Decreased Stride Length, Decreased Feet Clearance, Flexed Trunk Factors Limiting Gait Function Factors Limiting Gait Function Abnormal Tonal Influences, Decreased Activity Tolerance, Decreased Strength,Pain Stair Climbing Evaluation Comments Stair Climbing Comments unable PT-OP-H Neuro Start: 09/24/22 09:30 Freq: Status: Active Protocol: Document 09/24/22 09:06 [facility] (Rec: 09/28/22 11:39 [facility] [id number]) Sensation Evaluation Gross Sensation Gross Sensation Left LE Impaired,Right LE Impaired,Trunk Impaired PT-OP-J Posture/Palpation/Skin Start: 09/24/22 09:30 Freq: Status: Active Protocol: Document 09/24/22 09:06 [facility] (Rec: 09/28/22 11:39 [facility] [id number]) Posture Evaluation Position Sitting Head/C-Spine Posture Forward Head Shoulder Posture (L) Rounded,(R) Rounded Shoulder Subluxation Position (L) Anterior,(R) Anterior Scapula Posture (L) Protracted,(R) Protracted Arm Posture (L) Internally Rotated,(R) Internally Rotated PT-OP-K Range of Motion Start: 09/24/22 09:30 Freq: Status: Active Protocol: Document 09/24/22 09:06 SAK (Rec: 09/28/22 11:39 [facility] [id number]) Hip Goniometric Range of Motion Hip chelle Straight Leg Raise 145 Hip ROM Limitations Hip ROM Limitations Soft Tissue Tightness Ankle and Foot Goniometric Range of Motion Ankle and Foot chelle Dorsiflexion with Knee Flexed 0 Ankle and Foot ROM Limitations ROM Limitations Soft Tissue Tightness PT-OP-M Strength Start: 09/24/22 09:30 Freq: Status: Active Protocol: Document 09/24/22 09:31 SAK (Rec: 09/24/22 10:22 [facility] [id number]) Trunk Strength Trunk Manual Muscle Testing Flexion 3- Fair- Extension 2+ Poor+ Rotation Left 3- Fair- Rotation Right 3- Fair- Lateral Flexion Left 3- Fair- Lateral Flexion Right 3- Fair- Scapula Strength Scapula Manual Muscle Testing chelle Elevation (C4) 4+ Good+ Adduction 3+ Fair+ Abduction 3 Fair Depression 3+ Fair+ Shoulder Strength Shoulder Manual Muscle Testing Left Flexion 4 Good Extension 4 Good Abduction (C5) 4 Good Adduction 4 Good External Rotation 4 Good Internal Rotation 4 Good Horizontal Abduction 4 Good Horizontal Adduction 4 Good Right Flexion 4 Good Extension 4 Good Abduction (C5) 4 Good Adduction 4 Good External Rotation 4 Good Internal Rotation 4 Good Horizontal Abduction 4 Good Horizontal Adduction 4 Good Elbow/Forearm Strength Elbow and Forearm Manual Muscle Testing Left Flexion (C6) 4 Good Extension (C7) 4 Good Right Comments pain with resisted flex,ab,ER Hip Strength Hip Manual Muscle Testing Left Flexion (L2) 4- Good- Abduction 3- Fair- Adduction 3+ Fair+ Right Flexion (L2) 4- Good- Abduction 2+ Poor+ Adduction 3+ Fair+ Knee Strength Knee Manual Muscle Testing Left Flexion (S2) 4 Good Extension (L3) 4 Good Right Flexion (S2) 4- Good- Extension (L3) 4- Good- Ankle/Foot Strength Ankle and Foot Manual Muscle Testing Left Dorsiflexion (L4) 3+ Fair+ Plantarflexion (S1) 3+ Fair+ Right Dorsiflexion (L4) 3+ Fair+ Plantarflexion (S1) 3+ Fair+ PT-OP-Q Treatments Start: 09/24/22 09:30 Freq: Status: Active Protocol: Document 09/21/23 14:34 SP (Rec: 09/21/23 15:39 SP [id number]) Cardio Equipment Recumbent Stepper (Sci-Fit) Seat Position 50 RPMs, .50 distance Other good tiring effort- beginning tx Therapeutic Exercises Supine Exercises figure 4 Side bilateral Resistance AROM Reps/Minutes 60 Comments good adductor/hip flexor stretch HC stretch Supine Exercise Name HS stretch Side bilateral Equipment Used supine manual Reps/Minutes 60 Comments good feedback stretch Prone Exercises prone on elbows Resistance on hands Reps/Minutes 5 SH 10 SH 2 reps Comments cued TA inhibit LS pressure. quad/hip flexor stretch Prone Exercise Name quad then hip flexor Side bilateral Resistance manual via therapist Equipment Used pillow under chest pt positions Reps/Minutes 2x30 Comments good feedback stretch Sitting Exercises rows, shoulder ext Resistance TB #2 therapist anchor Equipment Used seated on Dynadisc Reps/Minutes x20 Comments Good effort core challenge stability, unable disc under feet resisted trunk rotation Sitting Exercise Name rotation Side bilateral Resistance TB #2 therapist anchor Equipment Used sitting on Dynadisc (yellow) Reps/Minutes x10 Comments good oblique engagement Standing Exercises TKE Comments next session again Gait Training Gait Activity FWW Device Used FWW Level of Assistance CGA, aide following with w/c Surface firm Distance/Duration 55ft,26 ft Treatment Focus activity toleranlce, strength, function Comments Patient 1 brief stop stand 3/4 distance. Neuro Re-Education Treatment Balance Activities standing balance counter Details static stand bal: pull down/ put up boxes on high shelf overhead Equipment FWW front/side PRN contact 1 UE on counter at side Reps/Duration 6 boxes x2 sets Comments cued taller posture, even BLE WB, seated rest between sets. PT-OP-T Assessment and Plan Start: 09/24/22 09:30 Freq: Status: Active Protocol: Document 09/21/23 14:34 SP (Rec: 09/21/23 15:39 SP [id number]) Physical Therapy Assessment Goals Three Impairment pain right shoulder and low back Impairment diffiuculty performing ADL's due to pain and pain in right shoulder limits gait due to heavy use of walker Cell Operation Supervisor Goal (LTG) Patient to report at least 50% decrease in pain with all usual activities and be independent with HEP for purposes of core stab, shoulder strengthening and stab 12/24/22: patient reported decrease in shoulder pain during vacation with not having to wheel herself (used power w/c), but has increased since starting to wheel again. Dec c/o LBP. Goal progress 02/18/23: reports decrease in shoulder pain to 0-4/10. Hadn 't been having back pain until exacerbation 2 weeks ago which appears QL. 05/18/23: goal progress with both shoulder and back pain 08/09/23: good goal progress, mostly met. LTG Duration 11/16/23 One Impairment gait dysfunction Impairment 2 min walk test 127 ft, not able to tolerate 6 min walk test due to fatigue UE's from supporting body on walker and LE fatigue requiring 2 brief standing breaks, needing to stop at 2 min Short Term Goal (STG) Improve 2 min walk test to at least 150 ft as measure of improved functional gait 12/24/22: only able to ambulate 75 ft today and experienced giving way of left knee fdc through gait requiring mod assist to correct. 02/18/23: 2 min walk test 68 ft today, limited due to back pain and left leg giving way requiring her to sit 05/18/23: goal abandoned. See LTG STG Duration goal abandoned. Cell Operation Supervisor Goal (LTG) Patient able to tolerate 6 min walk test with gait distance of at least 300 ft as measure of improved functional gait 05/18/23: goal modification due to inability to reach this goal: New goal: patient able to tolerate 3 min walk test and walk a distance of at least 150 feet. (current max is 109 ft) 08/09/23: patient has been more limited in her walking tolerance due to increased weakness in her legs related to her MS LTG Duration 11/16/23 Four Impairment weakness Impairment 5x sit to stand test 15 sec with moderate use of hands moderate core muscle weakness with less than anti-gravity strength Short Term Goal (STG) Patient to be independent and compliant with updated HEP for purposes of LE and trunk muscle strengthening 12/24/22: patient was on vacation 1 month, not as compliant, noting dec functional strength today. HEP has been updated. Goal progress 02/18/23: patient compliant with HEP, ongoing progression STG Duration goal met Cell Operation Supervisor Goal (LTG) Patient able to perform 5x sit to stand test in 10 sec as measure of improved functional LE strength and demonstrate 1 grade improvement in trunk muscle strength for improved safety with ADL performance 02/18/23: 10 sec today with 5x sit to stand. Noting improved functional core strength, good goal progress 05/18/23: not able to retest due to patient activity intolerance today due to esophageal stenosis 08/09/23: improved ability since last retested, has had surgery for espophageal stenosis. 13 seconds today vs unable to perform last session LTG Duration 11/16/23 Two Impairment balance dysfunction Impairment Tinetti gait and balance assessment 11/16 indicating patient at high risk for falls static standing 44 sec without holding on Short Term Goal (STG) Patient to be independent and compliant with gait and balance HEP 12/24/22: as above not as compliant to HEP and not ambulating while on vacation 02/18/23: 41 sec standing, limited by back pain 05/18/23: unable to retest due to esophageal stenosis with dec activity tolerance today 08/09/23: has had more limited standing tolerance due to weakness from MS, 16 sec today STG Duration 09/19/23 Usp Goal (LTG) Improve Tinetti gait and balance assessment score to moderate fall risk range to improve safety in the home and community improve static standing balance to at least 60 sec LTG Duration 11/16/23 Assessment Summary Assessment Pt demonstrates good effort seated balance ther ex on dynadisc, unable add additional disc under feet. Pt was able to transfer items from overhead cabinet to counter and back up with occ contact counter, seated rest between sets for BLE tiring recovery. Improved distance gait /c FWW today 55 ft compared past 3 treatments, increased endurance, cued shorter stride for COG over ANSHUL. Physical Therapy Plan Frequency and Duration Frequency of Treatment 1x/Week Duration of treatment (weeks) 12 Plan of Care Start Date 08/16/23 Plan of Care End Date 11/16/23 Therapeutic Interventions Therapeutic Interventions Balance Training,Home Exercise Program,Manual Therapy, Neuromuscular Re-education, Patient/Caregiver Education, Self-Care/Home Management,Soft Tissue Mobilization,Taping, Therapeutic Activities, Therapeutic Exercises Modalities Cold Pack/Ice Massage,Hot Packs Next Visit Focus/Plan Next Note Type Treatment Note Next Visit Plan Trial quadruped and bird dog if can. Continue increase standing activities and tolerance, seated ex and activities, functional mat activities. Standing TKE as chuck.
--- NOTE | 2023-09-28 16:30 | PT.OTN ---
Current Diagnoses Multiple sclerosis (09/28/23) Physical Therapy Treatment Note PT-OP-A Visit Information Start: 09/24/22 09:30 Freq: Status: Active Protocol: Document 09/28/23 15:14 SAK (Rec: 09/28/23 16:30 SAK [id number]) Out-Patient Physical Therapy Visit Information Visit Information Visit Type Treatment Note Visit Note 08/29 post PN Visit Start Time 15:15 Visit Stop Time 16:00 Visit Number 45 Number of OCEANOLOGY TEACHER Visits 0 Precautions Precautions MS, don't overfatigue, esophageal stenosis PT-OP-B Current Condition Start: 09/24/22 09:30 Freq: Status: Active Protocol: Document 09/07/23 15:14 SAK (Rec: 09/07/23 16:16 SAK [id number]) Current Condition History of Current Condition Onset Date March 2019 Current Complaints weakness due to MS, right shoulder pain, LBP History of Current Condition history MS with worsening weakness, as well as right shoulder pain (patient right handed). Patient has caregiver who assists her primarily with household tasks, HEP, walking. She uses a 4WW to walk short diestances (approx 30 feet) in the home, manual w /c for community mobility. No recent falls, but has history of falls. Reports was evaluated for power wheelchair recently but was denied. C/o right shoulder pain and tightness especially with reaching and propelling manual w/c. Well known to this PT for both land and aquatic- based PT. Prior Treatments and Tests prior PT; land and aquatic Future Testing and Treatments Planned nothing planned yet PT-OP-C Subjective Start: 09/24/22 09:30 Freq: Status: Active Protocol: Document 09/21/23 14:34 SP (Rec: 09/21/23 15:39 SP [id number]) OP-PT Subjective Patient Comments Patient Comments Pt reports was tired after last tx. She went to Neurologist today. PT-OP-D Balance Start: 09/24/22 09:30 Freq: Status: Active Protocol: Document 09/24/22 09:06 SAK (Rec: 09/28/22 11:39 SAK [id number]) Tinetti Balance Assessment Sitting Balance Sitting Balance Steady, safe Standing Balance Immediate Standing Balance Steady with support Turning Step Pattern Turning 360 Degrees Discontinuous steps Sitting Down Sitting Down Uses arms or unsteady Gait and Step Initiation of Gait Hesitancy, mult. attempts Right Foot Step Length Does not pass stance ft. Right Foot Step Height Does not clear floor Left Foot Step Length Does not pass stance foot Left Foot Step Height Does not clear floor Step Description Step Symmetry Step length appears equal Step Continuity Stopping or discontinuity Gait Description Path Description Mild/moderate deviation Trunk Description Marked sway or uses aide Walking Stance Heels apart Scoring and Interpretation Tinetti Composite Score (points) 5 PT-OP-E Functional Tests Start: 09/24/22 09:30 Freq: Status: Active Protocol: Document 09/24/22 09:06 [facility] (Rec: 09/28/22 11:39 [facility] [id number]) Functional Tests 2 Minute Walk Test Distance 127 Device Used 4WW PT-OP-G Mobility & Gait Start: 09/24/22 09:30 Freq: Status: Active Protocol: Document 09/24/22 09:06 [facility] (Rec: 09/28/22 11:39 [facility] [id number]) OP Mobility Evaluation Bed Mobility Supine to and from Sit indep Transfers Bed to Chair Transfers indep Car Transfers assisted Floor Transfers not performed OP Gait Assessment Gait Gait Assistance Required: Minimum Assistance Distance (Feet) 127 Assistive Devices Assistive Device Gait Belt,Front Wheeled Walker Orthotic/Prosthetic Devices or Brace: No Gait Deviations General Gait Pattern Decreased Stride Length, Decreased Feet Clearance, Flexed Trunk Factors Limiting Gait Function Factors Limiting Gait Function Abnormal Tonal Influences, Decreased Activity Tolerance, Decreased Strength,Pain Stair Climbing Evaluation Comments Stair Climbing Comments unable PT-OP-H Neuro Start: 09/24/22 09:30 Freq: Status: Active Protocol: Document 09/24/22 09:06 [facility] (Rec: 09/28/22 11:39 [facility] [id number]) Sensation Evaluation Gross Sensation Gross Sensation Left LE Impaired,Right LE Impaired,Trunk Impaired PT-OP-J Posture/Palpation/Skin Start: 09/24/22 09:30 Freq: Status: Active Protocol: Document 09/24/22 09:06 [facility] (Rec: 09/28/22 11:39 [facility] [id number]) Posture Evaluation Position Sitting Head/C-Spine Posture Forward Head Shoulder Posture (L) Rounded,(R) Rounded Shoulder Subluxation Position (L) Anterior,(R) Anterior Scapula Posture (L) Protracted,(R) Protracted Arm Posture (L) Internally Rotated,(R) Internally Rotated PT-OP-K Range of Motion Start: 09/24/22 09:30 Freq: Status: Active Protocol: Document 09/24/22 09:06 [facility] (Rec: 09/28/22 11:39 [facility] [id number]) Hip Goniometric Range of Motion Hip chelle Straight Leg Raise 145 Hip ROM Limitations Hip ROM Limitations Soft Tissue Tightness Ankle and Foot Goniometric Range of Motion Ankle and Foot chelle Dorsiflexion with Knee Flexed 0 Ankle and Foot ROM Limitations ROM Limitations Soft Tissue Tightness PT-OP-M Strength Start: 09/24/22 09:30 Freq: Status: Active Protocol: Document 09/24/22 09:31 SAK (Rec: 09/24/22 10:22 [facility] [id number]) Trunk Strength Trunk Manual Muscle Testing Flexion 3- Fair- Extension 2+ Poor+ Rotation Left 3- Fair- Rotation Right 3- Fair- Lateral Flexion Left 3- Fair- Lateral Flexion Right 3- Fair- Scapula Strength Scapula Manual Muscle Testing chelle Elevation (C4) 4+ Good+ Adduction 3+ Fair+ Abduction 3 Fair Depression 3+ Fair+ Shoulder Strength Shoulder Manual Muscle Testing Left Flexion 4 Good Extension 4 Good Abduction (C5) 4 Good Adduction 4 Good External Rotation 4 Good Internal Rotation 4 Good Horizontal Abduction 4 Good Horizontal Adduction 4 Good Right Flexion 4 Good Extension 4 Good Abduction (C5) 4 Good Adduction 4 Good External Rotation 4 Good Internal Rotation 4 Good Horizontal Abduction 4 Good Horizontal Adduction 4 Good Elbow/Forearm Strength Elbow and Forearm Manual Muscle Testing Left Flexion (C6) 4 Good Extension (C7) 4 Good Right Comments pain with resisted flex,ab,ER Hip Strength Hip Manual Muscle Testing Left Flexion (L2) 4- Good- Abduction 3- Fair- Adduction 3+ Fair+ Right Flexion (L2) 4- Good- Abduction 2+ Poor+ Adduction 3+ Fair+ Knee Strength Knee Manual Muscle Testing Left Flexion (S2) 4 Good Extension (L3) 4 Good Right Flexion (S2) 4- Good- Extension (L3) 4- Good- Ankle/Foot Strength Ankle and Foot Manual Muscle Testing Left Dorsiflexion (L4) 3+ Fair+ Plantarflexion (S1) 3+ Fair+ Right Dorsiflexion (L4) 3+ Fair+ Plantarflexion (S1) 3+ Fair+ PT-OP-Q Treatments Start: 09/24/22 09:30 Freq: Status: Active Protocol: Document 09/28/23 15:14 [facility] (Rec: 09/28/23 16:30 [facility] [id number]) Therapeutic Exercises Sitting Exercises STS Reps/Minutes 5x2 Comments min to max use of UE's with fatigue overhead press Equipment Used wand Reps/Minutes 10x2 rows, shoulder ext Resistance TB #2 therapist anchor Equipment Used seated on Dynadisc Reps/Minutes x20 Comments Good effort core challenge stability, unable disc under feet LAQ Side bilateral Resistance 4# Reps/Minutes 7x right, 10x left, 3x right Comments seated on blue dynadisc resisted trunk rotation Sitting Exercise Name rotation Side bilateral Resistance TB #2 therapist anchor Equipment Used sitting on Dynadisc (yellow) Reps/Minutes x10 Comments good oblique engagement Standing Exercises TKE Comments next session again Gait Training Gait Activity //bars Description sidestep, back step Device Used bars Level of Assistance CGA Distance/Duration 10 ft x 4 lengths, 10 ft x2 FWW Device Used FWW Level of Assistance CGA, aide following with w/c Surface firm Distance/Duration 60ft Treatment Focus activity toleranlce, strength, function Comments UE fatigue and LE's giving way limit distance Neuro Re-Education Treatment Balance Activities lean backs Surface yellow Dyadisc on mat Equipment anchored ankles, 4# leg wt + PT aide Reps/Duration x10 Comments OCEANOLOGY TEACHER posterior support needed. Challenge keeping BLEs on floor, core/ hip flexor effort sittin bal Details balloon dowel trunk Surface 1:1 Equipment yellow Dynadisc on wc, B feet crossed front Reps/Duration 4 min Comments encouraged cross body wt shift fwd, lateral. PT-OP-T Assessment and Plan Start: 09/24/22 09:30 Freq: Status: Active Protocol: Document 09/28/23 15:14 [facility] (Rec: 09/28/23 16:30 [facility] [id number]) Physical Therapy Assessment Goals Three Impairment pain right shoulder and low back Impairment diffiuculty performing ADL's due to pain and pain in right shoulder limits gait due to heavy use of walker Correction Goal (LTG) Patient to report at least 50% decrease in pain with all usual activities and be independent with HEP for purposes of core stab, shoulder strengthening and stab 12/24/22: patient reported decrease in shoulder pain during vacation with not having to wheel herself (used power w/c), but has increased since starting to wheel again. Dec c/o LBP. Goal progress 02/18/23: reports decrease in shoulder pain to 0-4/10. Hadn 't been having back pain until exacerbation 2 weeks ago which appears QL. 05/18/23: goal progress with both shoulder and back pain 08/09/23: good goal progress, mostly met. LTG Duration 11/16/23 One Impairment gait dysfunction Impairment 2 min walk test 127 ft, not able to tolerate 6 min walk test due to fatigue UE's from supporting body on walker and LE fatigue requiring 2 brief standing breaks, needing to stop at 2 min Short Term Goal (STG) Improve 2 min walk test to at least 150 ft as measure of improved functional gait 12/24/22: only able to ambulate 75 ft today and experienced giving way of left knee [facility] through gait requiring mod assist to correct. 02/18/23: 2 min walk test 68 ft today, limited due to back pain and left leg giving way requiring her to sit 05/18/23: goal abandoned. See LTG STG Duration goal abandoned. Pressure Washer Goal (LTG) Patient able to tolerate 6 min walk test with gait distance of at least 300 ft as measure of improved functional gait 05/18/23: goal modification due to inability to reach this goal: New goal: patient able to tolerate 3 min walk test and walk a distance of at least 150 feet. (current max is 109 ft) 08/09/23: patient has been more limited in her walking tolerance due to increased weakness in her legs related to her MS LTG Duration 11/16/23 Four Impairment weakness Impairment 5x sit to stand test 15 sec with moderate use of hands moderate core muscle weakness with less than anti-gravity strength Short Term Goal (STG) Patient to be independent and compliant with updated HEP for purposes of LE and trunk muscle strengthening 12/24/22: patient was on vacation 1 month, not as compliant, noting dec functional strength today. HEP has been updated. Goal progress 02/18/23: patient compliant with HEP, ongoing progression STG Duration goal met Correction Goal (LTG) Patient able to perform 5x sit to stand test in 10 sec as measure of improved functional LE strength and demonstrate 1 grade improvement in trunk muscle strength for improved safety with ADL performance 02/18/23: 10 sec today with 5x sit to stand. Noting improved functional core strength, good goal progress 05/18/23: not able to retest due to patient activity intolerance today due to esophageal stenosis 08/09/23: improved ability since last retested, has had surgery for espophageal stenosis. 13 seconds today vs unable to perform last session LTG Duration 11/16/23 Two Impairment balance dysfunction Impairment Tinetti gait and balance assessment 11/16 indicating patient at high risk for falls static standing 44 sec without holding on Short Term Goal (STG) Patient to be independent and compliant with gait and balance HEP 12/24/22: as above not as compliant to HEP and not ambulating while on vacation 02/18/23: 41 sec standing, limited by back pain 05/18/23: unable to retest due to esophageal stenosis with dec activity tolerance today 08/09/23: has had more limited standing tolerance due to weakness from MS, 16 sec today STG Duration 09/19/23 Correction Goal (LTG) Improve Tinetti gait and balance assessment score to moderate fall risk range to improve safety in the home and community improve static standing balance to at least 60 sec LTG Duration 11/16/23 Assessment Summary Assessment Able to use dynadisc under buttocks and under feet for balance and stability work with seated ther ex. Chuck doubled theraband for trunk rotation strengthening. Patient planning to restart aquatic exercise this week. Physical Therapy Plan Frequency and Duration Frequency of Treatment 1x/Week Duration of treatment (weeks) 12 Plan of Care Start Date 08/16/23 Plan of Care End Date 11/16/23 Therapeutic Interventions Therapeutic Interventions Balance Training,Home Exercise Program,Manual Therapy, Neuromuscular Re-education, Patient/Caregiver Education, Self-Care/Home Management,Soft Tissue Mobilization,Taping, Therapeutic Activities, Therapeutic Exercises Modalities Cold Pack/Ice Massage,Hot Packs Next Visit Focus/Plan Next Note Type Treatment Note Next Visit Plan Trial quadruped and bird dog if can. Continue increase standing activities and tolerance, seated ex and activities, functional mat activities. Standing TKE as chuck.
--- NOTE | 2023-10-05 14:46 | PT.OTN ---
Current Diagnoses Multiple sclerosis (10/05/23) Physical Therapy Treatment Note PT-OP-A Visit Information Start: 09/24/22 09:30 Freq: Status: Active Protocol: Document 10/05/23 11:18 SAK (Rec: 10/05/23 12:05 [facility] [id number]) Out-Patient Physical Therapy Visit Information Visit Information Visit Type Treatment Note Visit Note 09/28 post PN Visit Start Time 11:15 Visit Stop Time 12:00 Visit Number 45 Number of [employer] Visits 0 Precautions Precautions MS, don't overfatigue, esophageal stenosis PT-OP-B Current Condition Start: 09/24/22 09:30 Freq: Status: Active Protocol: Document 09/07/23 15:14 SAK (Rec: 09/07/23 16:16 [facility] [id number]) Current Condition History of Current Condition Onset Date March 2019 Current Complaints weakness due to MS, right shoulder pain, LBP History of Current Condition history MS with worsening weakness, as well as right shoulder pain (patient right handed). Patient has caregiver who assists her primarily with household tasks, HEP, walking. She uses a 4WW to walk short diestances (approx 30 feet) in the home, manual w /c for community mobility. No recent falls, but has history of falls. Reports was evaluated for power wheelchair recently but was denied. C/o right shoulder pain and tightness especially with reaching and propelling manual w/c. Well known to this PT for both land and aquatic- based PT. Prior Treatments and Tests prior PT; land and aquatic Future Testing and Treatments Planned nothing planned yet PT-OP-C Subjective Start: 09/24/22 09:30 Freq: Status: Active Protocol: Document 10/05/23 11:18 SAK (Rec: 10/05/23 12:05 [facility] [id number]) OP-PT Subjective Patient Comments Patient Comments No new c/o. Didn't get to do as much exercises or walking this week due to caregiver availability. Wasn't able to go to the pool due to their schedule. PT-OP-D Balance Start: 09/24/22 09:30 Freq: Status: Active Protocol: Document 09/24/22 09:06 SAK (Rec: 09/28/22 11:39 [facility] [id number]) Tinetti Balance Assessment Sitting Balance Sitting Balance Steady, safe Standing Balance Immediate Standing Balance Steady with support Turning Step Pattern Turning 360 Degrees Discontinuous steps Sitting Down Sitting Down Uses arms or unsteady Gait and Step Initiation of Gait Hesitancy, mult. attempts Right Foot Step Length Does not pass stance ft. Right Foot Step Height Does not clear floor Left Foot Step Length Does not pass stance foot Left Foot Step Height Does not clear floor Step Description Step Symmetry Step length appears equal Step Continuity Stopping or discontinuity Gait Description Path Description Mild/moderate deviation Trunk Description Marked sway or uses aide Walking Stance Heels apart Scoring and Interpretation Tinetti Composite Score (points) 5 PT-OP-E Functional Tests Start: 09/24/22 09:30 Freq: Status: Active Protocol: Document 09/24/22 09:06 [facility] (Rec: 09/28/22 11:39 [facility] [id number]) Functional Tests 2 Minute Walk Test Distance 127 Device Used 4WW PT-OP-G Mobility & Gait Start: 09/24/22 09:30 Freq: Status: Active Protocol: Document 09/24/22 09:06 [facility] (Rec: 09/28/22 11:39 [facility] [id number]) OP Mobility Evaluation Bed Mobility Supine to and from Sit indep Transfers Bed to Chair Transfers indep Car Transfers assisted Floor Transfers not performed OP Gait Assessment Gait Gait Assistance Required: Minimum Assistance Distance (Feet) 127 Assistive Devices Assistive Device Gait Belt,Front Wheeled Walker Orthotic/Prosthetic Devices or Brace: No Gait Deviations General Gait Pattern Decreased Stride Length, Decreased Feet Clearance, Flexed Trunk Factors Limiting Gait Function Factors Limiting Gait Function Abnormal Tonal Influences, Decreased Activity Tolerance, Decreased Strength,Pain Stair Climbing Evaluation Comments Stair Climbing Comments unable PT-OP-H Neuro Start: 09/24/22 09:30 Freq: Status: Active Protocol: Document 09/24/22 09:06 [facility] (Rec: 09/28/22 11:39 [facility] [id number]) Sensation Evaluation Gross Sensation Gross Sensation Left LE Impaired,Right LE Impaired,Trunk Impaired PT-OP-J Posture/Palpation/Skin Start: 09/24/22 09:30 Freq: Status: Active Protocol: Document 09/24/22 09:06 [facility] (Rec: 09/28/22 11:39 [facility] [id number]) Posture Evaluation Position Sitting Head/C-Spine Posture Forward Head Shoulder Posture (L) Rounded,(R) Rounded Shoulder Subluxation Position (L) Anterior,(R) Anterior Scapula Posture (L) Protracted,(R) Protracted Arm Posture (L) Internally Rotated,(R) Internally Rotated PT-OP-K Range of Motion Start: 09/24/22 09:30 Freq: Status: Active Protocol: Document 09/24/22 09:06 [facility] (Rec: 09/28/22 11:39 [facility] [id number]) Hip Goniometric Range of Motion Hip chelle Straight Leg Raise 145 Hip ROM Limitations Hip ROM Limitations Soft Tissue Tightness Ankle and Foot Goniometric Range of Motion Ankle and Foot chelle Dorsiflexion with Knee Flexed 0 Ankle and Foot ROM Limitations ROM Limitations Soft Tissue Tightness PT-OP-M Strength Start: 09/24/22 09:30 Freq: Status: Active Protocol: Document 09/24/22 09:31 [facility] (Rec: 09/24/22 10:22 [facility] [id number]) Trunk Strength Trunk Manual Muscle Testing Flexion 3- Fair- Extension 2+ Poor+ Rotation Left 3- Fair- Rotation Right 3- Fair- Lateral Flexion Left 3- Fair- Lateral Flexion Right 3- Fair- Scapula Strength Scapula Manual Muscle Testing chelle Elevation (C4) 4+ Good+ Adduction 3+ Fair+ Abduction 3 Fair Depression 3+ Fair+ Shoulder Strength Shoulder Manual Muscle Testing Left Flexion 4 Good Extension 4 Good Abduction (C5) 4 Good Adduction 4 Good External Rotation 4 Good Internal Rotation 4 Good Horizontal Abduction 4 Good Horizontal Adduction 4 Good Right Flexion 4 Good Extension 4 Good Abduction (C5) 4 Good Adduction 4 Good External Rotation 4 Good Internal Rotation 4 Good Horizontal Abduction 4 Good Horizontal Adduction 4 Good Elbow/Forearm Strength Elbow and Forearm Manual Muscle Testing Left Flexion (C6) 4 Good Extension (C7) 4 Good Right Comments pain with resisted flex,ab,ER Hip Strength Hip Manual Muscle Testing Left Flexion (L2) 4- Good- Abduction 3- Fair- Adduction 3+ Fair+ Right Flexion (L2) 4- Good- Abduction 2+ Poor+ Adduction 3+ Fair+ Knee Strength Knee Manual Muscle Testing Left Flexion (S2) 4 Good Extension (L3) 4 Good Right Flexion (S2) 4- Good- Extension (L3) 4- Good- Ankle/Foot Strength Ankle and Foot Manual Muscle Testing Left Dorsiflexion (L4) 3+ Fair+ Plantarflexion (S1) 3+ Fair+ Right Dorsiflexion (L4) 3+ Fair+ Plantarflexion (S1) 3+ Fair+ PT-OP-Q Treatments Start: 09/24/22 09:30 Freq: Status: Active Protocol: Document 10/05/23 11:18 [facility] (Rec: 10/05/23 12:05 [facility] [id number]) Cardio Equipment Recumbent Stepper (Sci-Fit) Duration (Minutes) 5 Resistance 1 Seat Position 13 Other good tiring effort- beginning tx Gym Equipment Shuttle Recovery Unilateral Squats Resistance 37 left, 25 right Shuttle Recovery Platform Stable Reps/Time 10x2 Bilateral Squats Details Squats with manual support to ankles and knees Resistance 75 Shuttle Recovery Platform Stable Reps/Time 10x2 Therapeutic Exercises Supine Exercises hip abd Equipment Used slider sheet Reps/Minutes 10x quad stretch Reps/Minutes 2x30 Comments legs over the side of the table hip flexor stretch Side bilateral Resistance mat table BLEs off edge ( perpendicular to EOtable) Reps/Minutes 60 Comments good feedback hip flexor stretch SKTC Supine Exercise Name SKTC and ER Side bilateral Reps/Minutes 2x30 Comments manual HS stretch Side bilateral Reps/Minutes 2x30 Comments manual Sitting Exercises rows, shoulder ext Resistance TB #2 therapist anchor Equipment Used seated on Dynadisc Reps/Minutes x20 Comments Good effort core challenge stability, unable disc under feet Standing Exercises TKE Comments next session, legs too weak today Gait Training Gait Activity FWW Device Used FWW Level of Assistance CGA, aide following with w/c Surface firm Distance/Duration 30 ft Treatment Focus activity toleranlce, strength, function Comments UE fatigue and LE's giving way limit distance, more shaking of legs right greater than left decreased distance Neuro Re-Education Treatment Balance Activities on vb Equipment sitting on yellow Dynadisc, feet on floor Comments balloon PT SBA to CGA lean backs Surface yellow Dyadisc on mat Equipment anchored ankles, 4# leg wt + PT aide Reps/Duration x10 Comments [employer] posterior support needed. Challenge keeping BLEs on floor, core/ hip flexor effort PT-OP-T Assessment and Plan Start: 09/24/22 09:30 Freq: Status: Active Protocol: Document 10/05/23 11:18 [facility] (Rec: 10/05/23 12:05 [facility] [id number]) Physical Therapy Assessment Goals Three Impairment pain right shoulder and low back Impairment diffiuculty performing ADL's due to pain and pain in right shoulder limits gait due to heavy use of walker Mcfp Goal (LTG) Patient to report at least 50% decrease in pain with all usual activities and be independent with HEP for purposes of core stab, shoulder strengthening and stab 12/24/22: patient reported decrease in shoulder pain during vacation with not having to wheel herself (used power w/c), but has increased since starting to wheel again. Dec c/o LBP. Goal progress 02/18/23: reports decrease in shoulder pain to 0-4/10. Hadn 't been having back pain until exacerbation 2 weeks ago which appears QL. 05/18/23: goal progress with both shoulder and back pain 08/09/23: good goal progress, mostly met. LTG Duration 11/16/23 One Impairment gait dysfunction Impairment 2 min walk test 127 ft, not able to tolerate 6 min walk test due to fatigue UE's from supporting body on walker and LE fatigue requiring 2 brief standing breaks, needing to stop at 2 min Short Term Goal (STG) Improve 2 min walk test to at least 150 ft as measure of improved functional gait 12/24/22: only able to ambulate 75 ft today and experienced giving way of left knee usp through gait requiring mod assist to correct. 02/18/23: 2 min walk test 68 ft today, limited due to back pain and left leg giving way requiring her to sit 05/18/23: goal abandoned. See LTG STG Duration goal abandoned. Mcfp Goal (LTG) Patient able to tolerate 6 min walk test with gait distance of at least 300 ft as measure of improved functional gait 05/18/23: goal modification due to inability to reach this goal: New goal: patient able to tolerate 3 min walk test and walk a distance of at least 150 feet. (current max is 109 ft) 08/09/23: patient has been more limited in her walking tolerance due to increased weakness in her legs related to her MS LTG Duration 11/16/23 Four Impairment weakness Impairment 5x sit to stand test 15 sec with moderate use of hands moderate core muscle weakness with less than anti-gravity strength Short Term Goal (STG) Patient to be independent and compliant with updated HEP for purposes of LE and trunk muscle strengthening 12/24/22: patient was on vacation 1 month, not as compliant, noting dec functional strength today. HEP has been updated. Goal progress 02/18/23: patient compliant with HEP, ongoing progression STG Duration goal met Mcfp Goal (LTG) Patient able to perform 5x sit to stand test in 10 sec as measure of improved functional LE strength and demonstrate 1 grade improvement in trunk muscle strength for improved safety with ADL performance 02/18/23: 10 sec today with 5x sit to stand. Noting improved functional core strength, good goal progress 05/18/23: not able to retest due to patient activity intolerance today due to esophageal stenosis 08/09/23: improved ability since last retested, has had surgery for espophageal stenosis. 13 seconds today vs unable to perform last session LTG Duration 11/16/23 Two Impairment balance dysfunction Impairment Tinetti gait and balance assessment 11/16 indicating patient at high risk for falls static standing 44 sec without holding on Short Term Goal (STG) Patient to be independent and compliant with gait and balance HEP 12/24/22: as above not as compliant to HEP and not ambulating while on vacation 02/18/23: 41 sec standing, limited by back pain 05/18/23: unable to retest due to esophageal stenosis with dec activity tolerance today 08/09/23: has had more limited standing tolerance due to weakness from MS, 16 sec today STG Duration 09/19/23 [employer] Goal (LTG) Improve Tinetti gait and balance assessment score to moderate fall risk range to improve safety in the home and community improve static standing balance to at least 60 sec LTG Duration 11/16/23 Assessment Summary Assessment lower stability right leg today with decreased standing and walking tolerance, patient more fatigued today with decreased activity tolerance overall. Potentially due to long stretch hot days. Physical Therapy Plan Frequency and Duration Frequency of Treatment 1x/Week Duration of treatment (weeks) 12 Plan of Care Start Date 08/16/23 Plan of Care End Date 11/16/23 Therapeutic Interventions Therapeutic Interventions Balance Training,Home Exercise Program,Manual Therapy, Neuromuscular Re-education, Patient/Caregiver Education, Self-Care/Home Management,Soft Tissue Mobilization,Taping, Therapeutic Activities, Therapeutic Exercises Modalities Cold Pack/Ice Massage,Hot Packs Next Visit Focus/Plan Next Note Type Treatment Note Next Visit Plan Trial quadruped and bird dog if can. Continue increase standing activities and tolerance, seated ex and activities, functional mat activities. Standing TKE as chuck.
--- NOTE | 2023-10-12 16:16 | PT.OTN ---
Current Diagnoses Multiple sclerosis (10/12/23) Physical Therapy Treatment Note PT-OP-A Visit Information Start: 09/24/22 09:30 Freq: Status: Active Protocol: Document 10/12/23 11:22 [facility] (Rec: 10/12/23 12:03 [facility] [id number]) Out-Patient Physical Therapy Visit Information Visit Information Visit Type Treatment Note Visit Note 10/29 post PN Visit Start Time 11:15 Visit Stop Time 12:00 Visit Number 45 Number of MARKETING INTELLIGENCE ANALYST Visits 0 Precautions Precautions MS, don't overfatigue, esophageal stenosis PT-OP-B Current Condition Start: 09/24/22 09:30 Freq: Status: Active Protocol: Document 09/07/23 15:14 [facility] (Rec: 09/07/23 16:16 [facility] [id number]) Current Condition History of Current Condition Onset Date March 2019 Current Complaints weakness due to MS, right shoulder pain, LBP History of Current Condition history MS with worsening weakness, as well as right shoulder pain (patient right handed). Patient has caregiver who assists her primarily with household tasks, HEP, walking. She uses a 4WW to walk short diestances (approx 30 feet) in the home, manual w /c for community mobility. No recent falls, but has history of falls. Reports was evaluated for power wheelchair recently but was denied. C/o right shoulder pain and tightness especially with reaching and propelling manual w/c. Well known to this PT for both land and aquatic- based PT. Prior Treatments and Tests prior PT; land and aquatic Future Testing and Treatments Planned nothing planned yet PT-OP-C Subjective Start: 09/24/22 09:30 Freq: Status: Active Protocol: Document 10/12/23 11:22 [facility] (Rec: 10/12/23 12:03 [facility] [id number]) OP-PT Subjective Patient Comments Patient Comments c/o right knee pain, has not been tolerating standing this week, medial knee pain. Doesn 't feel up to walking PT-OP-D Balance Start: 09/24/22 09:30 Freq: Status: Active Protocol: Document 09/24/22 09:06 [facility] (Rec: 09/28/22 11:39 [facility] [id number]) Tinetti Balance Assessment Sitting Balance Sitting Balance Steady, safe Standing Balance Immediate Standing Balance Steady with support Turning Step Pattern Turning 360 Degrees Discontinuous steps Sitting Down Sitting Down Uses arms or unsteady Gait and Step Initiation of Gait Hesitancy, mult. attempts Right Foot Step Length Does not pass stance ft. Right Foot Step Height Does not clear floor Left Foot Step Length Does not pass stance foot Left Foot Step Height Does not clear floor Step Description Step Symmetry Step length appears equal Step Continuity Stopping or discontinuity Gait Description Path Description Mild/moderate deviation Trunk Description Marked sway or uses aide Walking Stance Heels apart Scoring and Interpretation Tinetti Composite Score (points) 5 PT-OP-E Functional Tests Start: 09/24/22 09:30 Freq: Status: Active Protocol: Document 09/24/22 09:06 [facility] (Rec: 09/28/22 11:39 [facility] [id number]) Functional Tests 2 Minute Walk Test Distance 127 Device Used 4WW PT-OP-G Mobility & Gait Start: 09/24/22 09:30 Freq: Status: Active Protocol: Document 09/24/22 09:06 [facility] (Rec: 09/28/22 11:39 [facility] [id number]) OP Mobility Evaluation Bed Mobility Supine to and from Sit indep Transfers Bed to Chair Transfers indep Car Transfers assisted Floor Transfers not performed OP Gait Assessment Gait Gait Assistance Required: Minimum Assistance Distance (Feet) 127 Assistive Devices Assistive Device Gait Belt,Front Wheeled Walker Orthotic/Prosthetic Devices or Brace: No Gait Deviations General Gait Pattern Decreased Stride Length, Decreased Feet Clearance, Flexed Trunk Factors Limiting Gait Function Factors Limiting Gait Function Abnormal Tonal Influences, Decreased Activity Tolerance, Decreased Strength,Pain Stair Climbing Evaluation Comments Stair Climbing Comments unable PT-OP-H Neuro Start: 09/24/22 09:30 Freq: Status: Active Protocol: Document 09/24/22 09:06 [facility] (Rec: 09/28/22 11:39 [facility] [id number]) Sensation Evaluation Gross Sensation Gross Sensation Left LE Impaired,Right LE Impaired,Trunk Impaired PT-OP-J Posture/Palpation/Skin Start: 09/24/22 09:30 Freq: Status: Active Protocol: Document 09/24/22 09:06 [facility] (Rec: 09/28/22 11:39 [facility] [id number]) Posture Evaluation Position Sitting Head/C-Spine Posture Forward Head Shoulder Posture (L) Rounded,(R) Rounded Shoulder Subluxation Position (L) Anterior,(R) Anterior Scapula Posture (L) Protracted,(R) Protracted Arm Posture (L) Internally Rotated,(R) Internally Rotated PT-OP-K Range of Motion Start: 09/24/22 09:30 Freq: Status: Active Protocol: Document 09/24/22 09:06 [facility] (Rec: 09/28/22 11:39 [facility] [id number]) Hip Goniometric Range of Motion Hip chelle Straight Leg Raise 145 Hip ROM Limitations Hip ROM Limitations Soft Tissue Tightness Ankle and Foot Goniometric Range of Motion Ankle and Foot chelle Dorsiflexion with Knee Flexed 0 Ankle and Foot ROM Limitations ROM Limitations Soft Tissue Tightness PT-OP-M Strength Start: 09/24/22 09:30 Freq: Status: Active Protocol: Document 09/24/22 09:31 [facility] (Rec: 09/24/22 10:22 [facility] [id number]) Trunk Strength Trunk Manual Muscle Testing Flexion 3- Fair- Extension 2+ Poor+ Rotation Left 3- Fair- Rotation Right 3- Fair- Lateral Flexion Left 3- Fair- Lateral Flexion Right 3- Fair- Scapula Strength Scapula Manual Muscle Testing chelle Elevation (C4) 4+ Good+ Adduction 3+ Fair+ Abduction 3 Fair Depression 3+ Fair+ Shoulder Strength Shoulder Manual Muscle Testing Left Flexion 4 Good Extension 4 Good Abduction (C5) 4 Good Adduction 4 Good External Rotation 4 Good Internal Rotation 4 Good Horizontal Abduction 4 Good Horizontal Adduction 4 Good Right Flexion 4 Good Extension 4 Good Abduction (C5) 4 Good Adduction 4 Good External Rotation 4 Good Internal Rotation 4 Good Horizontal Abduction 4 Good Horizontal Adduction 4 Good Elbow/Forearm Strength Elbow and Forearm Manual Muscle Testing Left Flexion (C6) 4 Good Extension (C7) 4 Good Right Comments pain with resisted flex,ab,ER Hip Strength Hip Manual Muscle Testing Left Flexion (L2) 4- Good- Abduction 3- Fair- Adduction 3+ Fair+ Right Flexion (L2) 4- Good- Abduction 2+ Poor+ Adduction 3+ Fair+ Knee Strength Knee Manual Muscle Testing Left Flexion (S2) 4 Good Extension (L3) 4 Good Right Flexion (S2) 4- Good- Extension (L3) 4- Good- Ankle/Foot Strength Ankle and Foot Manual Muscle Testing Left Dorsiflexion (L4) 3+ Fair+ Plantarflexion (S1) 3+ Fair+ Right Dorsiflexion (L4) 3+ Fair+ Plantarflexion (S1) 3+ Fair+ PT-OP-Q Treatments Start: 09/24/22 09:30 Freq: Status: Active Protocol: Document 10/12/23 11:22 [facility] (Rec: 10/12/23 12:03 [facility] [id number]) Cardio Equipment Recumbent Stepper (Sci-Fit) Duration (Minutes) 5 Resistance 1 Seat Position 13 Other 0.5 mi Therapeutic Exercises Supine Exercises SLR Reps/Minutes 10x bridge Equipment Used L4 TB around knees Reps/Minutes 10x heel dig Equipment Used 65 cm therapy ball Reps/Minutes 10x hip abd Supine Exercise Name supine clam Equipment Used L4 TB Reps/Minutes 10x quad stretch Reps/Minutes 2x30 Comments legs over the side of the table SAQ Reps/Minutes 10x IT band stretch Reps/Minutes 2x30 Comments manual HC stretch Supine Exercise Name HS stretch Side bilateral Equipment Used supine manual Reps/Minutes 60 Comments good feedback stretch LTR Supine Exercise Name AROM, then kamran Side bilateral Resistance 55 cm ball Equipment Used L4 TB around chelle LE's hip flexor stretch Side bilateral Resistance mat table BLEs off edge ( perpendicular to EOtable) Reps/Minutes 60 Comments good feedback hip flexor stretch SKTC Supine Exercise Name SKTC and ER Side bilateral Reps/Minutes 2x30 Comments manual HS stretch Side bilateral Reps/Minutes 2x30 Comments manual Sitting Exercises lean backs Equipment Used seated on dynadisc Reps/Minutes 8x resisted trunk rotation Sitting Exercise Name rotation Side bilateral Resistance TB #2 therapist anchor Equipment Used sitting on Dynadisc (yellow) Reps/Minutes x10 Comments good oblique engagement Standing Exercises TKE Comments not done due to right knee pain Gait Training Gait Activity FWW Comments no gait today due to knee pain Manual Therapy Treatment Consent Patient gave verbal consent for manual Yes treatment Taping right knee Body Location meniscus Treatment Focus pain relief Type of Tape KT Skin Inspection intact Comments I strip 50% stretch tibial tuberosity proximal and medial across knee joint line PT-OP-T Assessment and Plan Start: 09/24/22 09:30 Freq: Status: Active Protocol: Document 10/12/23 11:22 [facility] (Rec: 10/12/23 12:03 [facility] [id number]) Physical Therapy Assessment Goals Three Impairment pain right shoulder and low back Impairment diffiuculty performing ADL's due to pain and pain in right shoulder limits gait due to heavy use of walker Hvac Installation Technician Goal (LTG) Patient to report at least 50% decrease in pain with all usual activities and be independent with HEP for purposes of core stab, shoulder strengthening and stab 12/24/22: patient reported decrease in shoulder pain during vacation with not having to wheel herself (used power w/c), but has increased since starting to wheel again. Dec c/o LBP. Goal progress 02/18/23: reports decrease in shoulder pain to 0-4/10. Hadn 't been having back pain until exacerbation 2 weeks ago which appears QL. 05/18/23: goal progress with both shoulder and back pain 08/09/23: good goal progress, mostly met. LTG Duration 11/16/23 One Impairment gait dysfunction Impairment 2 min walk test 127 ft, not able to tolerate 6 min walk test due to fatigue UE's from supporting body on walker and LE fatigue requiring 2 brief standing breaks, needing to stop at 2 min Short Term Goal (STG) Improve 2 min walk test to at least 150 ft as measure of improved functional gait 12/24/22: only able to ambulate 75 ft today and experienced giving way of left knee usp through gait requiring mod assist to correct. 02/18/23: 2 min walk test 68 ft today, limited due to back pain and left leg giving way requiring her to sit 05/18/23: goal abandoned. See LTG STG Duration goal abandoned. Hvac Installation Technician Goal (LTG) Patient able to tolerate 6 min walk test with gait distance of at least 300 ft as measure of improved functional gait 05/18/23: goal modification due to inability to reach this goal: New goal: patient able to tolerate 3 min walk test and walk a distance of at least 150 feet. (current max is 109 ft) 08/09/23: patient has been more limited in her walking tolerance due to increased weakness in her legs related to her MS LTG Duration 11/16/23 Four Impairment weakness Impairment 5x sit to stand test 15 sec with moderate use of hands moderate core muscle weakness with less than anti-gravity strength Short Term Goal (STG) Patient to be independent and compliant with updated HEP for purposes of LE and trunk muscle strengthening 12/24/22: patient was on vacation 1 month, not as compliant, noting dec functional strength today. HEP has been updated. Goal progress 02/18/23: patient compliant with HEP, ongoing progression STG Duration goal met Hvac Installation Technician Goal (LTG) Patient able to perform 5x sit to stand test in 10 sec as measure of improved functional LE strength and demonstrate 1 grade improvement in trunk muscle strength for improved safety with ADL performance 02/18/23: 10 sec today with 5x sit to stand. Noting improved functional core strength, good goal progress 05/18/23: not able to retest due to patient activity intolerance today due to esophageal stenosis 08/09/23: improved ability since last retested, has had surgery for espophageal stenosis. 13 seconds today vs unable to perform last session LTG Duration 11/16/23 Two Impairment balance dysfunction Impairment Tinetti gait and balance assessment 11/16 indicating patient at high risk for falls static standing 44 sec without holding on Short Term Goal (STG) Patient to be independent and compliant with gait and balance HEP 12/24/22: as above not as compliant to HEP and not ambulating while on vacation 02/18/23: 41 sec standing, limited by back pain 05/18/23: unable to retest due to esophageal stenosis with dec activity tolerance today 08/09/23: has had more limited standing tolerance due to weakness from MS, 16 sec today STG Duration 09/19/23 Hvac Installation Technician Goal (LTG) Improve Tinetti gait and balance assessment score to moderate fall risk range to improve safety in the home and community improve static standing balance to at least 60 sec LTG Duration 11/16/23 Assessment Summary Assessment patient did not tolerate standing or walking due to pain with signs and symptoms consistent with a possible meniscal tear. Treatment modified to supine LE exercises for knee and hip strengthening and flexibility, seated UE and trunk exercises . KT tape to right medial meniscus Physical Therapy Plan Frequency and Duration Frequency of Treatment 1x/Week Duration of treatment (weeks) 12 Plan of Care Start Date 08/16/23 Plan of Care End Date 11/16/23 Therapeutic Interventions Therapeutic Interventions Balance Training,Home Exercise Program,Manual Therapy, Neuromuscular Re-education, Patient/Caregiver Education, Self-Care/Home Management,Soft Tissue Mobilization,Taping, Therapeutic Activities, Therapeutic Exercises Modalities Cold Pack/Ice Massage,Hot Packs Next Visit Focus/Plan Next Note Type Treatment Note Next Visit Plan assess response to modified session KT tape. Progress back to standing activities and gait training as tolerated .
--- NOTE | 2023-10-20 15:21 | PT.OTN ---
Current Diagnoses Multiple sclerosis (10/20/23) Physical Therapy Treatment Note PT-OP-A Visit Information Start: 09/24/22 09:30 Freq: Status: Active Protocol: Document 10/20/23 13:01 [facility] (Rec: 10/20/23 13:48 [facility] [id number]) Out-Patient Physical Therapy Visit Information Visit Information Visit Type Treatment Note Visit Start Time 13:00 Visit Stop Time 13:45 Visit Number 45 Precautions Precautions MS, don't overfatigue, esophageal stenosis PT-OP-B Current Condition Start: 09/24/22 09:30 Freq: Status: Active Protocol: Document 09/07/23 15:14 [facility] (Rec: 09/07/23 16:16 [facility] [id number]) Current Condition History of Current Condition Onset Date March 2019 Current Complaints weakness due to MS, right shoulder pain, LBP History of Current Condition history MS with worsening weakness, as well as right shoulder pain (patient right handed). Patient has caregiver who assists her primarily with household tasks, HEP, walking. She uses a 4WW to walk short diestances (approx 30 feet) in the home, manual w /c for community mobility. No recent falls, but has history of falls. Reports was evaluated for power wheelchair recently but was denied. C/o right shoulder pain and tightness especially with reaching and propelling manual w/c. Well known to this PT for both land and aquatic- based PT. Prior Treatments and Tests prior PT; land and aquatic Future Testing and Treatments Planned nothing planned yet PT-OP-C Subjective Start: 09/24/22 09:30 Freq: Status: Active Protocol: Document 10/20/23 13:01 [facility] (Rec: 10/20/23 13:48 [facility] [id number]) OP-PT Subjective Patient Comments Patient Comments knee feels better PT-OP-D Balance Start: 09/24/22 09:30 Freq: Status: Active Protocol: Document 09/24/22 09:06 [facility] (Rec: 09/28/22 11:39 [facility] [id number]) Tinetti Balance Assessment Sitting Balance Sitting Balance Steady, safe Standing Balance Immediate Standing Balance Steady with support Turning Step Pattern Turning 360 Degrees Discontinuous steps Sitting Down Sitting Down Uses arms or unsteady Gait and Step Initiation of Gait Hesitancy, mult. attempts Right Foot Step Length Does not pass stance ft. Right Foot Step Height Does not clear floor Left Foot Step Length Does not pass stance foot Left Foot Step Height Does not clear floor Step Description Step Symmetry Step length appears equal Step Continuity Stopping or discontinuity Gait Description Path Description Mild/moderate deviation Trunk Description Marked sway or uses aide Walking Stance Heels apart Scoring and Interpretation Tinetti Composite Score (points) 5 PT-OP-E Functional Tests Start: 09/24/22 09:30 Freq: Status: Active Protocol: Document 09/24/22 09:06 [facility] (Rec: 09/28/22 11:39 [facility] [id number]) Functional Tests 2 Minute Walk Test Distance 127 Device Used 4WW PT-OP-G Mobility & Gait Start: 09/24/22 09:30 Freq: Status: Active Protocol: Document 09/24/22 09:06 [facility] (Rec: 09/28/22 11:39 [facility] [id number]) OP Mobility Evaluation Bed Mobility Supine to and from Sit indep Transfers Bed to Chair Transfers indep Car Transfers assisted Floor Transfers not performed OP Gait Assessment Gait Gait Assistance Required: Minimum Assistance Distance (Feet) 127 Assistive Devices Assistive Device Gait Belt,Front Wheeled Walker Orthotic/Prosthetic Devices or Brace: No Gait Deviations General Gait Pattern Decreased Stride Length, Decreased Feet Clearance, Flexed Trunk Factors Limiting Gait Function Factors Limiting Gait Function Abnormal Tonal Influences, Decreased Activity Tolerance, Decreased Strength,Pain Stair Climbing Evaluation Comments Stair Climbing Comments unable PT-OP-H Neuro Start: 09/24/22 09:30 Freq: Status: Active Protocol: Document 09/24/22 09:06 [facility] (Rec: 09/28/22 11:39 [facility] [id number]) Sensation Evaluation Gross Sensation Gross Sensation Left LE Impaired,Right LE Impaired,Trunk Impaired PT-OP-J Posture/Palpation/Skin Start: 09/24/22 09:30 Freq: Status: Active Protocol: Document 09/24/22 09:06 [facility] (Rec: 09/28/22 11:39 [facility] [id number]) Posture Evaluation Position Sitting Head/C-Spine Posture Forward Head Shoulder Posture (L) Rounded,(R) Rounded Shoulder Subluxation Position (L) Anterior,(R) Anterior Scapula Posture (L) Protracted,(R) Protracted Arm Posture (L) Internally Rotated,(R) Internally Rotated PT-OP-K Range of Motion Start: 09/24/22 09:30 Freq: Status: Active Protocol: Document 09/24/22 09:06 [facility] (Rec: 09/28/22 11:39 [facility] [id number]) Hip Goniometric Range of Motion Hip chelle Straight Leg Raise 145 Hip ROM Limitations Hip ROM Limitations Soft Tissue Tightness Ankle and Foot Goniometric Range of Motion Ankle and Foot chelle Dorsiflexion with Knee Flexed 0 Ankle and Foot ROM Limitations ROM Limitations Soft Tissue Tightness PT-OP-M Strength Start: 09/24/22 09:30 Freq: Status: Active Protocol: Document 09/24/22 09:31 [facility] (Rec: 09/24/22 10:22 [facility] [id number]) Trunk Strength Trunk Manual Muscle Testing Flexion 3- Fair- Extension 2+ Poor+ Rotation Left 3- Fair- Rotation Right 3- Fair- Lateral Flexion Left 3- Fair- Lateral Flexion Right 3- Fair- Scapula Strength Scapula Manual Muscle Testing chelle Elevation (C4) 4+ Good+ Adduction 3+ Fair+ Abduction 3 Fair Depression 3+ Fair+ Shoulder Strength Shoulder Manual Muscle Testing Left Flexion 4 Good Extension 4 Good Abduction (C5) 4 Good Adduction 4 Good External Rotation 4 Good Internal Rotation 4 Good Horizontal Abduction 4 Good Horizontal Adduction 4 Good Right Flexion 4 Good Extension 4 Good Abduction (C5) 4 Good Adduction 4 Good External Rotation 4 Good Internal Rotation 4 Good Horizontal Abduction 4 Good Horizontal Adduction 4 Good Elbow/Forearm Strength Elbow and Forearm Manual Muscle Testing Left Flexion (C6) 4 Good Extension (C7) 4 Good Right Comments pain with resisted flex,ab,ER Hip Strength Hip Manual Muscle Testing Left Flexion (L2) 4- Good- Abduction 3- Fair- Adduction 3+ Fair+ Right Flexion (L2) 4- Good- Abduction 2+ Poor+ Adduction 3+ Fair+ Knee Strength Knee Manual Muscle Testing Left Flexion (S2) 4 Good Extension (L3) 4 Good Right Flexion (S2) 4- Good- Extension (L3) 4- Good- Ankle/Foot Strength Ankle and Foot Manual Muscle Testing Left Dorsiflexion (L4) 3+ Fair+ Plantarflexion (S1) 3+ Fair+ Right Dorsiflexion (L4) 3+ Fair+ Plantarflexion (S1) 3+ Fair+ PT-OP-Q Treatments Start: 09/24/22 09:30 Freq: Status: Active Protocol: Document 10/20/23 13:01 [facility] (Rec: 10/20/23 13:48 [facility] [id number]) Cardio Equipment Recumbent Stepper (Sci-Fit) Duration (Minutes) 5 Resistance 1 Seat Position 13 Other 0.5 mi Gym Equipment Therapeutic Ball heelslide Ball Size/Color 65 cm ball Body Position Hooklying Reps/Duration 10x Comments Dycem under legs heel dig Ball Size/Color 65 cm green Reps/Duration 10x LTR Ball Size/Color 65 cm green Body Position Hooklying Reps/Duration 10x Therapeutic Exercises Supine Exercises bridge Reps/Minutes 10x hip abd Supine Exercise Name supine clam Equipment Used L4 TB Reps/Minutes 10x SAQ Resistance 1# Reps/Minutes 15x IT band stretch Reps/Minutes 2x30 Comments manual HC stretch Supine Exercise Name HS stretch Side bilateral Equipment Used supine manual Reps/Minutes 60 Comments good feedback stretch LTR Supine Exercise Name AROM, then kamran Side bilateral Resistance 55 cm ball Equipment Used L4 TB around chelle LE's hip flexor stretch Side bilateral Resistance mat table BLEs off edge ( perpendicular to EOtable) Reps/Minutes 60 Comments good feedback hip flexor stretch SKTC Supine Exercise Name SKTC and ER Side bilateral Reps/Minutes 2x30 Comments manual HS stretch Side bilateral Reps/Minutes 2x30 Comments manual Sitting Exercises rows, shoulder ext Resistance TB #2 therapist anchor Equipment Used seated on Dynadisc Reps/Minutes x20 Comments Good effort core challenge stability, unable disc under feet lean backs Equipment Used seated on dynadisc Reps/Minutes 20x resisted trunk rotation Sitting Exercise Name rotation Side bilateral Resistance TB #2 therapist anchor Equipment Used sitting on Dynadisc (yellow) Reps/Minutes x10 Comments good oblique engagement Gait Training Gait Activity FWW Level of Assistance CGA to mod assist balance Surface firm Distance/Duration 40 Comments right LE not painful but shaking and giving way PT-OP-T Assessment and Plan Start: 09/24/22 09:30 Freq: Status: Active Protocol: Document 10/20/23 13:01 [facility] (Rec: 10/20/23 13:48 [facility] [id number]) Physical Therapy Assessment Goals Three Impairment pain right shoulder and low back Impairment diffiuculty performing ADL's due to pain and pain in right shoulder limits gait due to heavy use of walker [facility] Goal (LTG) Patient to report at least 50% decrease in pain with all usual activities and be independent with HEP for purposes of core stab, shoulder strengthening and stab 12/24/22: patient reported decrease in shoulder pain during vacation with not having to wheel herself (used power w/c), but has increased since starting to wheel again. Dec c/o LBP. Goal progress 02/18/23: reports decrease in shoulder pain to 0-4/10. Hadn 't been having back pain until exacerbation 2 weeks ago which appears QL. 05/18/23: goal progress with both shoulder and back pain 08/09/23: good goal progress, mostly met. LTG Duration 11/16/23 One Impairment gait dysfunction Impairment 2 min walk test 127 ft, not able to tolerate 6 min walk test due to fatigue UE's from supporting body on walker and LE fatigue requiring 2 brief standing breaks, needing to stop at 2 min Short Term Goal (STG) Improve 2 min walk test to at least 150 ft as measure of improved functional gait 12/24/22: only able to ambulate 75 ft today and experienced giving way of left knee longterm through gait requiring mod assist to correct. 02/18/23: 2 min walk test 68 ft today, limited due to back pain and left leg giving way requiring her to sit 05/18/23: goal abandoned. See LTG STG Duration goal abandoned. Hoop Flaring Machine Operator Goal (LTG) Patient able to tolerate 6 min walk test with gait distance of at least 300 ft as measure of improved functional gait 05/18/23: goal modification due to inability to reach this goal: New goal: patient able to tolerate 3 min walk test and walk a distance of at least 150 feet. (current max is 109 ft) 08/09/23: patient has been more limited in her walking tolerance due to increased weakness in her legs related to her MS LTG Duration 11/16/23 Four Impairment weakness Impairment 5x sit to stand test 15 sec with moderate use of hands moderate core muscle weakness with less than anti-gravity strength Short Term Goal (STG) Patient to be independent and compliant with updated HEP for purposes of LE and trunk muscle strengthening 12/24/22: patient was on vacation 1 month, not as compliant, noting dec functional strength today. HEP has been updated. Goal progress 02/18/23: patient compliant with HEP, ongoing progression STG Duration goal met Hoop Flaring Machine Operator Goal (LTG) Patient able to perform 5x sit to stand test in 10 sec as measure of improved functional LE strength and demonstrate 1 grade improvement in trunk muscle strength for improved safety with ADL performance 02/18/23: 10 sec today with 5x sit to stand. Noting improved functional core strength, good goal progress 05/18/23: not able to retest due to patient activity intolerance today due to esophageal stenosis 08/09/23: improved ability since last retested, has had surgery for espophageal stenosis. 13 seconds today vs unable to perform last session LTG Duration 11/16/23 Two Impairment balance dysfunction Impairment Tinetti gait and balance assessment 11/16 indicating patient at high risk for falls static standing 44 sec without holding on Short Term Goal (STG) Patient to be independent and compliant with gait and balance HEP 12/24/22: as above not as compliant to HEP and not ambulating while on vacation 02/18/23: 41 sec standing, limited by back pain 05/18/23: unable to retest due to esophageal stenosis with dec activity tolerance today 08/09/23: has had more limited standing tolerance due to weakness from MS, 16 sec today STG Duration 09/19/23 [facility] Goal (LTG) Improve Tinetti gait and balance assessment score to moderate fall risk range to improve safety in the home and community improve static standing balance to at least 60 sec LTG Duration 11/16/23 Assessment Summary Assessment Reported PT helpful for left knee pain, gait limited by right knee weakness and giving way. Improved ability on lean backs for core strengthening, inc reps to 20. Minimal walking at home due to lack of caregiver assist. Physical Therapy Plan Frequency and Duration Frequency of Treatment 1x/Week Duration of treatment (weeks) 12 Plan of Care Start Date 08/16/23 Plan of Care End Date 11/16/23 Therapeutic Interventions Therapeutic Interventions Balance Training,Home Exercise Program,Manual Therapy, Neuromuscular Re-education, Patient/Caregiver Education, Self-Care/Home Management,Soft Tissue Mobilization,Taping, Therapeutic Activities, Therapeutic Exercises Modalities Cold Pack/Ice Massage,Hot Packs Next Visit Focus/Plan Next Note Type Treatment Note Next Visit Plan Discuss need for further KT tape to knee, continue strengthening, gait training, balance, and flexibility as tolerated. If knee remains pain-free restart mat mobility , prone ex
--- NOTE | 2023-10-27 16:51 | PT.OTN ---
Current Diagnoses Multiple sclerosis (10/27/23) Physical Therapy Treatment Note PT-OP-A Visit Information Start: 09/24/22 09:30 Freq: Status: Active Protocol: Document 10/27/23 15:20 [facility] (Rec: 10/27/23 16:51 [facility] [id number]) Out-Patient Physical Therapy Visit Information Visit Information Visit Type Treatment Note Visit Start Time 15:21 PT-OP-B Current Condition Start: 09/24/22 09:30 Freq: Status: Active Protocol: Document 09/07/23 15:14 [facility] (Rec: 09/07/23 16:16 [facility] [id number]) Current Condition History of Current Condition Onset Date March 2019 Current Complaints weakness due to MS, right shoulder pain, LBP History of Current Condition history MS with worsening weakness, as well as right shoulder pain (patient right handed). Patient has caregiver who assists her primarily with household tasks, HEP, walking. She uses a 4WW to walk short diestances (approx 30 feet) in the home, manual w /c for community mobility. No recent falls, but has history of falls. Reports was evaluated for power wheelchair recently but was denied. C/o right shoulder pain and tightness especially with reaching and propelling manual w/c. Well known to this PT for both land and aquatic- based PT. Prior Treatments and Tests prior PT; land and aquatic Future Testing and Treatments Planned nothing planned yet PT-OP-C Subjective Start: 09/24/22 09:30 Freq: Status: Active Protocol: Document 10/27/23 15:20 [facility] (Rec: 10/27/23 16:51 [facility] [id number]) OP-PT Subjective Patient Comments Patient Comments NO issues with knee, went to pool to restart aquatic exercise but pool closed next 2 weeks. Did exercises and walking 2x past week. 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 PT-OP-D Balance Start: 09/24/22 09:30 Freq: Status: Active Protocol: Document 09/24/22 09:06 [facility] (Rec: 09/28/22 11:39 [facility] [id number]) Tinetti Balance Assessment Sitting Balance Sitting Balance Steady, safe Standing Balance Immediate Standing Balance Steady with support Turning Step Pattern Turning 360 Degrees Discontinuous steps Sitting Down Sitting Down Uses arms or unsteady Gait and Step Initiation of Gait Hesitancy, mult. attempts Right Foot Step Length Does not pass stance ft. Right Foot Step Height Does not clear floor Left Foot Step Length Does not pass stance foot Left Foot Step Height Does not clear floor Step Description Step Symmetry Step length appears equal Step Continuity Stopping or discontinuity Gait Description Path Description Mild/moderate deviation Trunk Description Marked sway or uses aide Walking Stance Heels apart Scoring and Interpretation Tinetti Composite Score (points) 5 PT-OP-E Functional Tests Start: 09/24/22 09:30 Freq: Status: Active Protocol: Document 09/24/22 09:06 [facility] (Rec: 09/28/22 11:39 [facility] [id number]) Functional Tests 2 Minute Walk Test Distance 127 Device Used 4WW PT-OP-G Mobility & Gait Start: 09/24/22 09:30 Freq: Status: Active Protocol: Document 09/24/22 09:06 [facility] (Rec: 09/28/22 11:39 [facility] [id number]) OP Mobility Evaluation Bed Mobility Supine to and from Sit indep Transfers Bed to Chair Transfers indep Car Transfers assisted Floor Transfers not performed OP Gait Assessment Gait Gait Assistance Required: Minimum Assistance Distance (Feet) 127 Assistive Devices Assistive Device Gait Belt,Front Wheeled Walker Orthotic/Prosthetic Devices or Brace: No Gait Deviations General Gait Pattern Decreased Stride Length, Decreased Feet Clearance, Flexed Trunk Factors Limiting Gait Function Factors Limiting Gait Function Abnormal Tonal Influences, Decreased Activity Tolerance, Decreased Strength,Pain Stair Climbing Evaluation Comments Stair Climbing Comments unable PT-OP-H Neuro Start: 09/24/22 09:30 Freq: Status: Active Protocol: Document 09/24/22 09:06 [facility] (Rec: 09/28/22 11:39 [facility] [id number]) Sensation Evaluation Gross Sensation Gross Sensation Left LE Impaired,Right LE Impaired,Trunk Impaired PT-OP-J Posture/Palpation/Skin Start: 09/24/22 09:30 Freq: Status: Active Protocol: Document 09/24/22 09:06 [facility] (Rec: 09/28/22 11:39 [facility] [id number]) Posture Evaluation Position Sitting Head/C-Spine Posture Forward Head Shoulder Posture (L) Rounded,(R) Rounded Shoulder Subluxation Position (L) Anterior,(R) Anterior Scapula Posture (L) Protracted,(R) Protracted Arm Posture (L) Internally Rotated,(R) Internally Rotated PT-OP-K Range of Motion Start: 09/24/22 09:30 Freq: Status: Active Protocol: Document 09/24/22 09:06 [facility] (Rec: 09/28/22 11:39 [facility] [id number]) Hip Goniometric Range of Motion Hip chelle Straight Leg Raise 145 Hip ROM Limitations Hip ROM Limitations Soft Tissue Tightness Ankle and Foot Goniometric Range of Motion Ankle and Foot chelle Dorsiflexion with Knee Flexed 0 Ankle and Foot ROM Limitations ROM Limitations Soft Tissue Tightness PT-OP-M Strength Start: 09/24/22 09:30 Freq: Status: Active Protocol: Document 09/24/22 09:31 [facility] (Rec: 09/24/22 10:22 [facility] [id number]) Trunk Strength Trunk Manual Muscle Testing Flexion 3- Fair- Extension 2+ Poor+ Rotation Left 3- Fair- Rotation Right 3- Fair- Lateral Flexion Left 3- Fair- Lateral Flexion Right 3- Fair- Scapula Strength Scapula Manual Muscle Testing chelle Elevation (C4) 4+ Good+ Adduction 3+ Fair+ Abduction 3 Fair Depression 3+ Fair+ Shoulder Strength Shoulder Manual Muscle Testing Left Flexion 4 Good Extension 4 Good Abduction (C5) 4 Good Adduction 4 Good External Rotation 4 Good Internal Rotation 4 Good Horizontal Abduction 4 Good Horizontal Adduction 4 Good Right Flexion 4 Good Extension 4 Good Abduction (C5) 4 Good Adduction 4 Good External Rotation 4 Good Internal Rotation 4 Good Horizontal Abduction 4 Good Horizontal Adduction 4 Good Elbow/Forearm Strength Elbow and Forearm Manual Muscle Testing Left Flexion (C6) 4 Good Extension (C7) 4 Good Right Comments pain with resisted flex,ab,ER Hip Strength Hip Manual Muscle Testing Left Flexion (L2) 4- Good- Abduction 3- Fair- Adduction 3+ Fair+ Right Flexion (L2) 4- Good- Abduction 2+ Poor+ Adduction 3+ Fair+ Knee Strength Knee Manual Muscle Testing Left Flexion (S2) 4 Good Extension (L3) 4 Good Right Flexion (S2) 4- Good- Extension (L3) 4- Good- Ankle/Foot Strength Ankle and Foot Manual Muscle Testing Left Dorsiflexion (L4) 3+ Fair+ Plantarflexion (S1) 3+ Fair+ Right Dorsiflexion (L4) 3+ Fair+ Plantarflexion (S1) 3+ Fair+ PT-OP-Q Treatments Start: 09/24/22 09:30 Freq: Status: Active Protocol: Document 10/27/23 15:20 [facility] (Rec: 10/27/23 16:51 [facility] [id number]) Cardio Equipment Recumbent Stepper (Sci-Fit) Duration (Minutes) 5 Resistance 1 Seat Position 13 Other 0.55, [address] Gym Equipment Therapeutic Ball bridge Ball Size/Color 65 cm green Body Position Hooklying Reps/Duration 10x heelslide Ball Size/Color 65 cm ball Body Position Hooklying Reps/Duration 10x Comments Dycem under legs heel dig Ball Size/Color 65 cm green Reps/Duration 10x LTR Ball Size/Color 65 cm green Body Position Hooklying Reps/Duration 10x Therapeutic Exercises Supine Exercises pec stretch Reps/Minutes 2x30 hip abd Supine Exercise Name with manual resistance Reps/Minutes 10x chelle figure 4 Side bilateral Resistance AROM Reps/Minutes 60 Comments good adductor/hip flexor stretch piriformis stretch Side bilateral Reps/Minutes 60 Comments cued for sequencing HC stretch Supine Exercise Name HS stretch Side bilateral Equipment Used supine manual Reps/Minutes 60 Comments good feedback stretch LTR Supine Exercise Name AROM, then kamran Side bilateral Resistance 55 cm ball Equipment Used L4 TB around chelle LE's hip flexor stretch Side bilateral Resistance mat table BLEs off edge ( perpendicular to EOtable) Reps/Minutes 60 Comments good feedback hip flexor stretch SKTC Supine Exercise Name SKTC and ER Side bilateral Reps/Minutes 2x30 Comments manual HS stretch Side bilateral Reps/Minutes 2x30 Comments manual Sitting Exercises rows, shoulder ext Resistance TB #2 therapist anchor Equipment Used seated on Dynadisc Reps/Minutes x20 Comments Good effort core challenge stability, unable disc under feet hamstring curl Resistance L2 TB Equipment Used seated on Dynadisc Reps/Minutes 1x10 each LE Comments difficulty with balance and weaker HS today lean backs Equipment Used seated on dynadisc Reps/Minutes 20x LAQ Side bilateral Resistance 4# Reps/Minutes 7x right, 10x left, 3x right Comments seated on blue dynadisc sit<> stands Comments resume next session resisted trunk rotation Sitting Exercise Name rotation Side bilateral Resistance TB #2 therapist anchor Equipment Used sitting on Dynadisc (yellow) Reps/Minutes x10 Comments good oblique engagement Standing Exercises TKE Comments resume next session sidestepping Comments resume next session Gait Training Gait Activity FWW Level of Assistance CGA to mod assist balance Surface firm Distance/Duration 25 ft, 20 ft Comments rest due to arm fatigue PT-OP-T Assessment and Plan Start: 09/24/22 09:30 Freq: Status: Active Protocol: Document 10/27/23 15:20 [facility] (Rec: 10/27/23 16:51 [facility] [id number]) Physical Therapy Assessment Goals Three Impairment pain right shoulder and low back Impairment diffiuculty performing ADL's due to pain and pain in right shoulder limits gait due to heavy use of walker Group Home Goal (LTG) Patient to report at least 50% decrease in pain with all usual activities and be independent with HEP for purposes of core stab, shoulder strengthening and stab 12/24/22: patient reported decrease in shoulder pain during vacation with not having to wheel herself (used power w/c), but has increased since starting to wheel again. Dec c/o LBP. Goal progress 02/18/23: reports decrease in shoulder pain to 0-4/10. Hadn 't been having back pain until exacerbation 2 weeks ago which appears QL. 05/18/23: goal progress with both shoulder and back pain 08/09/23: good goal progress, mostly met. LTG Duration 11/16/23 One Impairment gait dysfunction Impairment 2 min walk test 127 ft, not able to tolerate 6 min walk test due to fatigue UE's from supporting body on walker and LE fatigue requiring 2 brief standing breaks, needing to stop at 2 min Short Term Goal (STG) Improve 2 min walk test to at least 150 ft as measure of improved functional gait 12/24/22: only able to ambulate 75 ft today and experienced giving way of left knee fci through gait requiring mod assist to correct. 02/18/23: 2 min walk test 68 ft today, limited due to back pain and left leg giving way requiring her to sit 05/18/23: goal abandoned. See LTG STG Duration goal abandoned. Parts Finisher Goal (LTG) Patient able to tolerate 6 min walk test with gait distance of at least 300 ft as measure of improved functional gait 05/18/23: goal modification due to inability to reach this goal: New goal: patient able to tolerate 3 min walk test and walk a distance of at least 150 feet. (current max is 109 ft) 08/09/23: patient has been more limited in her walking tolerance due to increased weakness in her legs related to her MS LTG Duration 11/16/23 Four Impairment weakness Impairment 5x sit to stand test 15 sec with moderate use of hands moderate core muscle weakness with less than anti-gravity strength Short Term Goal (STG) Patient to be independent and compliant with updated HEP for purposes of LE and trunk muscle strengthening 12/24/22: patient was on vacation 1 month, not as compliant, noting dec functional strength today. HEP has been updated. Goal progress 02/18/23: patient compliant with HEP, ongoing progression STG Duration goal met Parts Finisher Goal (LTG) Patient able to perform 5x sit to stand test in 10 sec as measure of improved functional LE strength and demonstrate 1 grade improvement in trunk muscle strength for improved safety with ADL performance 02/18/23: 10 sec today with 5x sit to stand. Noting improved functional core strength, good goal progress 05/18/23: not able to retest due to patient activity intolerance today due to esophageal stenosis 08/09/23: improved ability since last retested, has had surgery for espophageal stenosis. 13 seconds today vs unable to perform last session LTG Duration 11/16/23 Two Impairment balance dysfunction Impairment Tinetti gait and balance assessment 11/16 indicating patient at high risk for falls static standing 44 sec without holding on Short Term Goal (STG) Patient to be independent and compliant with gait and balance HEP 12/24/22: as above not as compliant to HEP and not ambulating while on vacation 02/18/23: 41 sec standing, limited by back pain 05/18/23: unable to retest due to esophageal stenosis with dec activity tolerance today 08/09/23: has had more limited standing tolerance due to weakness from MS, 16 sec today STG Duration 09/19/23 Group Home Goal (LTG) Improve Tinetti gait and balance assessment score to moderate fall risk range to improve safety in the home and community improve static standing balance to at least 60 sec LTG Duration 11/16/23 Assessment Summary Assessment Patient gait limited by both UE fatigue from supporting on walker and fatigue in legs. Unable to start aquatic exercise for 2 weeks due to pool closure. Encouraged increased standing, walking and HEP. Physical Therapy Plan Frequency and Duration Frequency of Treatment 1x/Week Duration of treatment (weeks) 12 Plan of Care Start Date 08/16/23 Plan of Care End Date 11/16/23 Therapeutic Interventions Therapeutic Interventions Balance Training,Home Exercise Program,Manual Therapy, Neuromuscular Re-education, Patient/Caregiver Education, Self-Care/Home Management,Soft Tissue Mobilization,Taping, Therapeutic Activities, Therapeutic Exercises Modalities Cold Pack/Ice Massage,Hot Packs Next Visit Focus/Plan Next Note Type Treatment Note Next Visit Plan Progress back to further standing activities as well as mat mobility including prone exercises.
--- NOTE | 2023-11-04 13:44 | PT.OTN ---
Current Diagnoses Multiple sclerosis (11/04/23) Physical Therapy Treatment Note PT-OP-A Visit Information Start: 09/24/22 09:30 Freq: Status: Active Protocol: Document 11/04/23 13:01 SP (Rec: 11/04/23 13:49 SP [id number]) Out-Patient Physical Therapy Visit Information Visit Information Visit Type Treatment Note Visit Start Time 13:01 Visit Stop Time 13:44 Visit Number 47 Number of [employer] Visits 1 Evaluation Information Evaluation Date 09/24/22 Precautions Precautions MS, don't overfatigue, esophageal stenosis PT-OP-B Current Condition Start: 09/24/22 09:30 Freq: Status: Active Protocol: Document 09/07/23 15:14 SAK (Rec: 09/07/23 16:16 SAK [id number]) Current Condition History of Current Condition Onset Date March 2019 Current Complaints weakness due to MS, right shoulder pain, LBP History of Current Condition history MS with worsening weakness, as well as right shoulder pain (patient right handed). Patient has caregiver who assists her primarily with household tasks, HEP, walking. She uses a 4WW to walk short diestances (approx 30 feet) in the home, manual w /c for community mobility. No recent falls, but has history of falls. Reports was evaluated for power wheelchair recently but was denied. C/o right shoulder pain and tightness especially with reaching and propelling manual w/c. Well known to this PT for both land and aquatic- based PT. Prior Treatments and Tests prior PT; land and aquatic Future Testing and Treatments Planned nothing planned yet PT-OP-C Subjective Start: 09/24/22 09:30 Freq: Status: Active Protocol: Document 11/04/23 13:01 SP (Rec: 11/04/23 13:49 SP [id number]) OP-PT Subjective Patient Comments Patient Comments Pt reports walked about 20 ft before R knee unsteady and anterior aparicio discomfort 2x since last tx at home, aunt follows her with WC. PT-OP-D Balance Start: 09/24/22 09:30 Freq: Status: Active Protocol: Document 09/24/22 09:06 SAK (Rec: 09/28/22 11:39 SAK [id number]) Tinetti Balance Assessment Sitting Balance Sitting Balance Steady, safe Standing Balance Immediate Standing Balance Steady with support Turning Step Pattern Turning 360 Degrees Discontinuous steps Sitting Down Sitting Down Uses arms or unsteady Gait and Step Initiation of Gait Hesitancy, mult. attempts Right Foot Step Length Does not pass stance ft. Right Foot Step Height Does not clear floor Left Foot Step Length Does not pass stance foot Left Foot Step Height Does not clear floor Step Description Step Symmetry Step length appears equal Step Continuity Stopping or discontinuity Gait Description Path Description Mild/moderate deviation Trunk Description Marked sway or uses aide Walking Stance Heels apart Scoring and Interpretation Tinetti Composite Score (points) 5 PT-OP-E Functional Tests Start: 09/24/22 09:30 Freq: Status: Active Protocol: Document 09/24/22 09:06 [facility] (Rec: 09/28/22 11:39 [facility] [id number]) Functional Tests 2 Minute Walk Test Distance 127 Device Used 4WW PT-OP-G Mobility & Gait Start: 09/24/22 09:30 Freq: Status: Active Protocol: Document 09/24/22 09:06 [facility] (Rec: 09/28/22 11:39 [facility] [id number]) OP Mobility Evaluation Bed Mobility Supine to and from Sit indep Transfers Bed to Chair Transfers indep Car Transfers assisted Floor Transfers not performed OP Gait Assessment Gait Gait Assistance Required: Minimum Assistance Distance (Feet) 127 Assistive Devices Assistive Device Gait Belt,Front Wheeled Walker Orthotic/Prosthetic Devices or Brace: No Gait Deviations General Gait Pattern Decreased Stride Length, Decreased Feet Clearance, Flexed Trunk Factors Limiting Gait Function Factors Limiting Gait Function Abnormal Tonal Influences, Decreased Activity Tolerance, Decreased Strength,Pain Stair Climbing Evaluation Comments Stair Climbing Comments unable PT-OP-H Neuro Start: 09/24/22 09:30 Freq: Status: Active Protocol: Document 09/24/22 09:06 [facility] (Rec: 09/28/22 11:39 [facility] [id number]) Sensation Evaluation Gross Sensation Gross Sensation Left LE Impaired,Right LE Impaired,Trunk Impaired PT-OP-J Posture/Palpation/Skin Start: 09/24/22 09:30 Freq: Status: Active Protocol: Document 09/24/22 09:06 [facility] (Rec: 09/28/22 11:39 [facility] [id number]) Posture Evaluation Position Sitting Head/C-Spine Posture Forward Head Shoulder Posture (L) Rounded,(R) Rounded Shoulder Subluxation Position (L) Anterior,(R) Anterior Scapula Posture (L) Protracted,(R) Protracted Arm Posture (L) Internally Rotated,(R) Internally Rotated PT-OP-K Range of Motion Start: 09/24/22 09:30 Freq: Status: Active Protocol: Document 09/24/22 09:06 [facility] (Rec: 09/28/22 11:39 [facility] [id number]) Hip Goniometric Range of Motion Hip chelle Straight Leg Raise 145 Hip ROM Limitations Hip ROM Limitations Soft Tissue Tightness Ankle and Foot Goniometric Range of Motion Ankle and Foot chelle Dorsiflexion with Knee Flexed 0 Ankle and Foot ROM Limitations ROM Limitations Soft Tissue Tightness PT-OP-M Strength Start: 09/24/22 09:30 Freq: Status: Active Protocol: Document 09/24/22 09:31 [facility] (Rec: 09/24/22 10:22 [facility] [id number]) Trunk Strength Trunk Manual Muscle Testing Flexion 3- Fair- Extension 2+ Poor+ Rotation Left 3- Fair- Rotation Right 3- Fair- Lateral Flexion Left 3- Fair- Lateral Flexion Right 3- Fair- Scapula Strength Scapula Manual Muscle Testing chelle Elevation (C4) 4+ Good+ Adduction 3+ Fair+ Abduction 3 Fair Depression 3+ Fair+ Shoulder Strength Shoulder Manual Muscle Testing Left Flexion 4 Good Extension 4 Good Abduction (C5) 4 Good Adduction 4 Good External Rotation 4 Good Internal Rotation 4 Good Horizontal Abduction 4 Good Horizontal Adduction 4 Good Right Flexion 4 Good Extension 4 Good Abduction (C5) 4 Good Adduction 4 Good External Rotation 4 Good Internal Rotation 4 Good Horizontal Abduction 4 Good Horizontal Adduction 4 Good Elbow/Forearm Strength Elbow and Forearm Manual Muscle Testing Left Flexion (C6) 4 Good Extension (C7) 4 Good Right Comments pain with resisted flex,ab,ER Hip Strength Hip Manual Muscle Testing Left Flexion (L2) 4- Good- Abduction 3- Fair- Adduction 3+ Fair+ Right Flexion (L2) 4- Good- Abduction 2+ Poor+ Adduction 3+ Fair+ Knee Strength Knee Manual Muscle Testing Left Flexion (S2) 4 Good Extension (L3) 4 Good Right Flexion (S2) 4- Good- Extension (L3) 4- Good- Ankle/Foot Strength Ankle and Foot Manual Muscle Testing Left Dorsiflexion (L4) 3+ Fair+ Plantarflexion (S1) 3+ Fair+ Right Dorsiflexion (L4) 3+ Fair+ Plantarflexion (S1) 3+ Fair+ PT-OP-Q Treatments Start: 09/24/22 09:30 Freq: Status: Active Protocol: Document 11/04/23 13:01 SP (Rec: 11/04/23 13:49 SP [id number]) Cardio Equipment Recumbent Stepper (Sci-Fit) Duration (Minutes) 5 Resistance 1 Seat Position 13 Other 5.25 nicko, 0.56, 54 RPM average Gym Equipment Therapeutic Ball bridge Ball Size/Color 65 cm green under calves Body Position Hooklying Reps/Duration 12x Comments occ contact ball stabilize AROM heelslide Ball Size/Color 65 cm ball Body Position Hooklying Reps/Duration 10x Comments Dycem under legs- therapist manual resistance flex/ext heel dig Ball Size/Color 65 cm green Reps/Duration 10x Comments AROM LTR Ball Size/Color 65 cm green Body Position Hooklying Reps/Duration 15x Comments AROM Therapeutic Exercises Supine Exercises hip flexor stretch Side bilateral Resistance mat table BLEs off edge ( perpendicular to EOtable) Reps/Minutes 60 Comments good feedback hip flexor stretch HS stretch Side bilateral Reps/Minutes 2x30 Comments manual Prone Exercises prone on elbows Resistance on hands Reps/Minutes 5 SH 10 SH 2 reps Comments cued TA inhibit LS pressure. quad/hip flexor stretch Prone Exercise Name quad then hip flexor Side bilateral Resistance manual via therapist Equipment Used pillow under chest pt positions Reps/Minutes 2x30 Comments good feedback stretch Sitting Exercises hamstring curl Resistance L3 TB Equipment Used seated on Dynadisc (end tx in w/c no disc 8/15 tired) Reps/Minutes 1x10 each LE Comments difficulty with balance and weaker HS today Therapeutic Activity Therapeutic Activity squat pivot Name I with BUE support on surface in&going to. Reps/Minutes 4 reps during tx sup>sit Reps/Minutes 3 during tx. Comments able to manage self using heavy BUEs, not log roll technique sit to prone to all 4's Name child's pose, lateral stepping in quadruped to R Reps/Minutes 4 steps (1/2 width mat table) Comments CGA- Min wt shfit L allow R knee (hip abd) clearance Gait Training Gait Activity //bars Description sidestep Device Used bars Level of Assistance CGA Distance/Duration 10 ft x2 laps, seated rest between Treatment Focus TKE, posture PT-OP-T Assessment and Plan Start: 09/24/22 09:30 Freq: Status: Active Protocol: Document 11/04/23 13:01 SP (Rec: 11/04/23 13:49 SP [id number]) Physical Therapy Assessment Goals Three Impairment pain right shoulder and low back Impairment diffiuculty performing ADL's due to pain and pain in right shoulder limits gait due to heavy use of walker Senior Care Goal (LTG) Patient to report at least 50% decrease in pain with all usual activities and be independent with HEP for purposes of core stab, shoulder strengthening and stab 12/24/22: patient reported decrease in shoulder pain during vacation with not having to wheel herself (used power w/c), but has increased since starting to wheel again. Dec c/o LBP. Goal progress 02/18/23: reports decrease in shoulder pain to 0-4/10. Hadn 't been having back pain until exacerbation 2 weeks ago which appears QL. 05/18/23: goal progress with both shoulder and back pain 08/09/23: good goal progress, mostly met. LTG Duration 11/16/23 One Impairment gait dysfunction Impairment 2 min walk test 127 ft, not able to tolerate 6 min walk test due to fatigue UE's from supporting body on walker and LE fatigue requiring 2 brief standing breaks, needing to stop at 2 min Short Term Goal (STG) Improve 2 min walk test to at least 150 ft as measure of improved functional gait 12/24/22: only able to ambulate 75 ft today and experienced giving way of left knee senior care through gait requiring mod assist to correct. 02/18/23: 2 min walk test 68 ft today, limited due to back pain and left leg giving way requiring her to sit 05/18/23: goal abandoned. See LTG STG Duration goal abandoned. Senior Care Goal (LTG) Patient able to tolerate 6 min walk test with gait distance of at least 300 ft as measure of improved functional gait 05/18/23: goal modification due to inability to reach this goal: New goal: patient able to tolerate 3 min walk test and walk a distance of at least 150 feet. (current max is 109 ft) 08/09/23: patient has been more limited in her walking tolerance due to increased weakness in her legs related to her MS LTG Duration 11/16/23 Four Impairment weakness Impairment 5x sit to stand test 15 sec with moderate use of hands moderate core muscle weakness with less than anti-gravity strength Short Term Goal (STG) Patient to be independent and compliant with updated HEP for purposes of LE and trunk muscle strengthening 12/24/22: patient was on vacation 1 month, not as compliant, noting dec functional strength today. HEP has been updated. Goal progress 02/18/23: patient compliant with HEP, ongoing progression STG Duration goal met [facility] Orth[facility]ist Goal (LTG) Patient able to perform 5x sit to stand test in 10 sec as measure of improved functional LE strength and demonstrate 1 grade improvement in trunk muscle strength for improved safety with ADL performance 02/18/23: 10 sec today with 5x sit to stand. Noting improved functional core strength, good goal progress 05/18/23: not able to retest due to patient activity intolerance today due to esophageal stenosis 08/09/23: improved ability since last retested, has had surgery for espophageal stenosis. 13 seconds today vs unable to perform last session LTG Duration 11/16/23 Two Impairment balance dysfunction Impairment Tinetti gait and balance assessment 11/16 indicating patient at high risk for falls static standing 44 sec without holding on Short Term Goal (STG) Patient to be independent and compliant with gait and balance HEP 12/24/22: as above not as compliant to HEP and not ambulating while on vacation 02/18/23: 41 sec standing, limited by back pain 05/18/23: unable to retest due to esophageal stenosis with dec activity tolerance today 08/09/23: has had more limited standing tolerance due to weakness from MS, 16 sec today STG Duration 09/19/23 [facility] Goal (LTG) Improve Tinetti gait and balance assessment score to moderate fall risk range to improve safety in the home and community improve static standing balance to at least 60 sec LTG Duration 11/16/23 Assessment Summary Assessment Pt tolerated manual resistance to hip flexion/ext for core progression. Progressed to quadruped child's pose and able to perform lateral stepping approx 4 steps in quadruped CG- close SBA before tired needed to roll onto side and lateral scoot to EOtable, able to self use BUE to complete supine>sit (not log roll technique). Pt able to tolerated lateral stepping in//bars each UE front/back, tired after 4th length, brief seated rest required between each length chelle directions. Physical Therapy Plan Frequency and Duration Frequency of Treatment 1x/Week Duration of treatment (weeks) 12 Plan of Care Start Date 08/16/23 Plan of Care End Date 11/16/23 Therapeutic Interventions Therapeutic Interventions Balance Training,Home Exercise Program,Manual Therapy, Neuromuscular Re-education, Patient/Caregiver Education, Self-Care/Home Management,Soft Tissue Mobilization,Taping, Therapeutic Activities, Therapeutic Exercises Modalities Cold Pack/Ice Massage,Hot Packs Next Visit Focus/Plan Next Note Type Treatment Note Next Visit Plan Progress back to further standing activities as well as mat mobility including prone exercises including f/b/ lateral quadruped locomotion.
--- NOTE | 2023-11-10 16:26 | PT.OTRE ---
Current Diagnoses Multiple sclerosis (11/10/23) Past Medical History (Last Updated 02/24/23 @ 14:56 by Elizabeth Alonso DO) IUD (intrauterine device) in place Moderate mixed hyperlipidemia not requiring statin therapy Visit Care Team Role Provider Type Elizabeth Alonso DO Primary Care Provider Physician Specialty: Family Practice Address: [address] [place] [address], [id number] Email: [email or web address] Rehan Zacarias MD Family Provider Non-Staff Specialty: Internal Medicine Address: [address] [place] [address] [address], [place], [address] Email: Rufino Umaña MD Attending Provider Non-Staff Referring Provider Specialty: Psychiatry Address: [address] [place] [address], [address], [id number] Email: Physical Therapy Re-Evaluation PT-OP-A Visit Information Start: 09/24/22 09:30 Freq: Status: Active Protocol: Document 11/10/23 15:21 SAK (Rec: 11/10/23 16:25 [facility] [id number]) Out-Patient Physical Therapy Visit Information Visit Information Visit Type Treatment Note Visit Start Time 15:16 Visit Stop Time 16:01 Visit Number 47 Number of SU[employer] Visits 0 Evaluation Information Evaluation Date 09/24/22 Precautions Precautions MS, don't overfatigue, esophageal stenosis PT-OP-B Current Condition Start: 09/24/22 09:30 Freq: Status: Active Protocol: Document 09/07/23 15:14 SAK (Rec: 09/07/23 16:16 [facility] [id number]) Current Condition History of Current Condition Onset Date March 2019 Current Complaints weakness due to MS, right shoulder pain, LBP History of Current Condition history MS with worsening weakness, as well as right shoulder pain (patient right handed). Patient has caregiver who assists her primarily with household tasks, HEP, walking. She uses a 4WW to walk short diestances (approx 30 feet) in the home, manual w /c for community mobility. No recent falls, but has history of falls. Reports was evaluated for power wheelchair recently but was denied. C/o right shoulder pain and tightness especially with reaching and propelling manual w/c. Well known to this PT for both land and aquatic- based PT. Prior Treatments and Tests prior PT; land and aquatic Future Testing and Treatments Planned nothing planned yet PT-OP-C Subjective Start: 09/24/22 09:30 Freq: Status: Active Protocol: Document 11/10/23 15:21 [facility] (Rec: 11/10/23 16:25 [facility] [id number]) OP-PT Subjective Patient Comments Patient Comments c/o right knee more wobbly, requests KT tape PT-OP-D Balance Start: 09/24/22 09:30 Freq: Status: Active Protocol: Document 09/24/22 09:06 [facility] (Rec: 09/28/22 11:39 [facility] [id number]) Tinetti Balance Assessment Sitting Balance Sitting Balance Steady, safe Standing Balance Immediate Standing Balance Steady with support Turning Step Pattern Turning 360 Degrees Discontinuous steps Sitting Down Sitting Down Uses arms or unsteady Gait and Step Initiation of Gait Hesitancy, mult. attempts Right Foot Step Length Does not pass stance ft. Right Foot Step Height Does not clear floor Left Foot Step Length Does not pass stance foot Left Foot Step Height Does not clear floor Step Description Step Symmetry Step length appears equal Step Continuity Stopping or discontinuity Gait Description Path Description Mild/moderate deviation Trunk Description Marked sway or uses aide Walking Stance Heels apart Scoring and Interpretation Tinetti Composite Score (points) 5 PT-OP-E Functional Tests Start: 09/24/22 09:30 Freq: Status: Active Protocol: Document 09/24/22 09:06 [facility] (Rec: 09/28/22 11:39 [facility] [id number]) Functional Tests 2 Minute Walk Test Distance 127 Device Used 4WW PT-OP-G Mobility & Gait Start: 09/24/22 09:30 Freq: Status: Active Protocol: Document 09/24/22 09:06 [facility] (Rec: 09/28/22 11:39 [facility] [id number]) OP Mobility Evaluation Bed Mobility Supine to and from Sit indep Transfers Bed to Chair Transfers indep Car Transfers assisted Floor Transfers not performed OP Gait Assessment Gait Gait Assistance Required: Minimum Assistance Distance (Feet) 127 Assistive Devices Assistive Device Gait Belt,Front Wheeled Walker Orthotic/Prosthetic Devices or Brace: No Gait Deviations General Gait Pattern Decreased Stride Length, Decreased Feet Clearance, Flexed Trunk Factors Limiting Gait Function Factors Limiting Gait Function Abnormal Tonal Influences, Decreased Activity Tolerance, Decreased Strength,Pain Stair Climbing Evaluation Comments Stair Climbing Comments unable PT-OP-H Neuro Start: 09/24/22 09:30 Freq: Status: Active Protocol: Document 09/24/22 09:06 [facility] (Rec: 09/28/22 11:39 [facility] [id number]) Sensation Evaluation Gross Sensation Gross Sensation Left LE Impaired,Right LE Impaired,Trunk Impaired PT-OP-J Posture/Palpation/Skin Start: 09/24/22 09:30 Freq: Status: Active Protocol: Document 09/24/22 09:06 [facility] (Rec: 09/28/22 11:39 [facility] [id number]) Posture Evaluation Position Sitting Head/C-Spine Posture Forward Head Shoulder Posture (L) Rounded,(R) Rounded Shoulder Subluxation Position (L) Anterior,(R) Anterior Scapula Posture (L) Protracted,(R) Protracted Arm Posture (L) Internally Rotated,(R) Internally Rotated PT-OP-K Range of Motion Start: 09/24/22 09:30 Freq: Status: Active Protocol: Document 09/24/22 09:06 [facility] (Rec: 09/28/22 11:39 [facility] [id number]) Hip Goniometric Range of Motion Hip Measured in Degrees chelle Straight Leg Raise 145 Hip ROM Limitations Hip ROM Limitations Soft Tissue Tightness Ankle and Foot Goniometric Range of Motion Ankle and Foot Measured in Degrees chelle Dorsiflexion with Knee Flexed 0 Ankle and Foot ROM Limitations ROM Limitations Soft Tissue Tightness PT-OP-M Strength Start: 09/24/22 09:30 Freq: Status: Active Protocol: Document 09/24/22 09:31 [facility] (Rec: 09/24/22 10:22 [facility] [id number]) Trunk Strength Trunk Manual Muscle Testing Flexion 3- Fair- Extension 2+ Poor+ Rotation Left 3- Fair- Rotation Right 3- Fair- Lateral Flexion Left 3- Fair- Lateral Flexion Right 3- Fair- Scapula Strength Scapula Manual Muscle Testing chelle Elevation (C4) 4+ Good+ Adduction 3+ Fair+ Abduction 3 Fair Depression 3+ Fair+ Shoulder Strength Shoulder Manual Muscle Testing Left Flexion 4 Good Extension 4 Good Abduction (C5) 4 Good Adduction 4 Good External Rotation 4 Good Internal Rotation 4 Good Horizontal Abduction 4 Good Horizontal Adduction 4 Good Right Flexion 4 Good Extension 4 Good Abduction (C5) 4 Good Adduction 4 Good External Rotation 4 Good Internal Rotation 4 Good Horizontal Abduction 4 Good Horizontal Adduction 4 Good Elbow/Forearm Strength Elbow and Forearm Manual Muscle Testing Left Flexion (C6) 4 Good Extension (C7) 4 Good Right Comments pain with resisted flex,ab,ER Hip Strength Hip Manual Muscle Testing Left Flexion (L2) 4- Good- Abduction 3- Fair- Adduction 3+ Fair+ Right Flexion (L2) 4- Good- Abduction 2+ Poor+ Adduction 3+ Fair+ Knee Strength Knee Manual Muscle Testing Left Flexion (S2) 4 Good Extension (L3) 4 Good Right Flexion (S2) 4- Good- Extension (L3) 4- Good- Ankle/Foot Strength Ankle and Foot Manual Muscle Testing Left Dorsiflexion (L4) 3+ Fair+ Plantarflexion (S1) 3+ Fair+ Right Dorsiflexion (L4) 3+ Fair+ Plantarflexion (S1) 3+ Fair+ PT-OP-Q Treatments Start: 09/24/22 09:30 Freq: Status: Active Protocol: Document 11/10/23 15:21 [facility] (Rec: 11/10/23 16:25 [facility] [id number]) Cardio Equipment Recumbent Stepper (Sci-Fit) Duration (Minutes) 5 Resistance 1 Seat Position 13 Other 5.00 nicko, 0.55, 54 RPM average Therapeutic Exercises Supine Exercises pec stretch Reps/Minutes 2x30 quad stretch Reps/Minutes 2x30 Comments legs over the side of the table IT band stretch Reps/Minutes 2x30 Comments manual figure 4 Side bilateral Resistance AROM Reps/Minutes 60 Comments good adductor/hip flexor stretch Prone Exercises prone on elbows Resistance on hands Reps/Minutes 5 SH 10 SH 2 reps Comments cued TA inhibit LS pressure. quad/hip flexor stretch Prone Exercise Name quad then hip flexor Side bilateral Resistance manual via therapist Equipment Used pillow under chest pt positions Reps/Minutes 2x30 Comments good feedback stretch Therapeutic Activity Therapeutic Activity 5x sit to stand Reps/Minutes 14.1 sec, 10.9 sec sit to prone to all 4's Name child's pose, prone to all 4's Comments CGA Manual Therapy Treatment Taping right knee Body Location meniscus Treatment Focus pain relief Type of Tape KT Skin Inspection intact Comments I strip 50% stretch tibial tuberosity proximal and medial across knee joint line Other Other Manual Treatments MMMT chelle LE's and trunk PT-OP-T Assessment and Plan Start: 09/24/22 09:30 Freq: Status: Active Protocol: Document 11/10/23 15:21 [facility] (Rec: 11/10/23 16:25 [facility] [id number]) Physical Therapy Assessment Goals Three Impairment pain right shoulder and low back Impairment diffiuculty performing ADL's due to pain and pain in right shoulder limits gait due to heavy use of walker Integrity Analyst Goal (LTG) Patient to report at least 50% decrease in pain with all usual activities and be independent with HEP for purposes of core stab, shoulder strengthening and stab 12/24/22: patient reported decrease in shoulder pain during vacation with not having to wheel herself (used power w/c), but has increased since starting to wheel again. Dec c/o LBP. Goal progress 02/18/23: reports decrease in shoulder pain to 0-4/10. Hadn 't been having back pain until exacerbation 2 weeks ago which appears QL. 05/18/23: goal progress with both shoulder and back pain 08/09/23: good goal progress, mostly met. 11/10/23: spasming in mucles above hips 06/29, lasts 1-2 secs, no pain in shoulders LTG Duration 02/10/24 One Impairment gait dysfunction Impairment 2 min walk test 127 ft, not able to tolerate 6 min walk test due to fatigue UE's from supporting body on walker and LE fatigue requiring 2 brief standing breaks, needing to stop at 2 min Short Term Goal (STG) Improve 2 min walk test to at least 150 ft as measure of improved functional gait 12/24/22: only able to ambulate 75 ft today and experienced giving way of left knee long-term through gait requiring mod assist to correct. 02/18/23: 2 min walk test 68 ft today, limited due to back pain and left leg giving way requiring her to sit 05/18/23: goal abandoned. See LTG STG Duration goal abandoned. Care Home Goal (LTG) Patient able to tolerate 6 min walk test with gait distance of at least 300 ft as measure of improved functional gait 05/18/23: goal modification due to inability to reach this goal: New goal: patient able to tolerate 3 min walk test and walk a distance of at least 150 feet. (current max is 109 ft) 08/09/23: patient has been more limited in her walking tolerance due to increased weakness in her legs related to her MS 11/10/23: distance for walking remains limited due to weakness in LE's, fatigue from UE's holding her up, right knee pain today. LTG Duration 02/10/24 Four Impairment weakness Impairment 5x sit to stand test 15 sec with moderate use of hands moderate core muscle weakness with less than anti-gravity strength Short Term Goal (STG) Patient to be independent and compliant with updated HEP for purposes of LE and trunk muscle strengthening 12/24/22: patient was on vacation 1 month, not as compliant, noting dec functional strength today. HEP has been updated. Goal progress 02/18/23: patient compliant with HEP, ongoing progression STG Duration goal met Care Home Goal (LTG) Patient able to perform 5x sit to stand test in 10 sec as measure of improved functional LE strength and demonstrate 1 grade improvement in trunk muscle strength for improved safety with ADL performance 02/18/23: 10 sec today with 5x sit to stand. Noting improved functional core strength, good goal progress 05/18/23: not able to retest due to patient activity intolerance today due to esophageal stenosis 08/09/23: improved ability since last retested, has had surgery for espophageal stenosis. 13 seconds today vs unable to perform last session 11/10/23: 14.1 first trial 10.9 sec second trial Hip flex 3+/5R 4-/5 , ab2-/5 R 2+-/5 ad 2+/5R 3+/5L , ext Knee ext 4-/5R, 4+/5L , flex 4 -/5 R, 4+/5 L Ankle df 4-/5R, 4/5 pf 4/5R, 4+/5L, inv 3+/5R, 4/5 L, ev 3+ /5R 4+/5 L LTG Duration 02/10/24 Two Impairment balance dysfunction Impairment Tinetti gait and balance assessment 11/16 indicating patient at high risk for falls static standing 44 sec without holding on Short Term Goal (STG) Patient to be independent and compliant with gait and balance HEP 12/24/22: as above not as compliant to HEP and not ambulating while on vacation 02/18/23: 41 sec standing, limited by back pain 2/27/24: unable to retest due to esophageal stenosis with dec activity tolerance today 08/09/23: has had more limited standing tolerance due to weakness from MS, 16 sec today STG Duration 12/21/23 Integrity Analyst Goal (LTG) Improve Tinetti gait and balance assessment score to moderate fall risk range to improve safety in the home and community improve static standing balance to at least 60 sec 11/10/23: 44 sec, improved over last testing LTG Duration 02/10/24 Progress Towards Goals Progress Towards Goals Slow Progress due to Medical Issues Assessment Summary Assessment Patient improved 5x sit to stand score, but muscle endurance and gait tolerance has decreased due to MS progression. Patient has difficulty with practicing gait at home due to need for assistance and only has caregiver help 2-3x/wk. She would benefit from continued PT for gait training, strengthening, neuro- reeducation, functional mobility training, patient education. Physical Therapy Plan Frequency and Duration Frequency of Treatment 1x/Week Duration of treatment (weeks) 12 Plan of Care Start Date 11/10/23 Plan of Care End Date 02/10/24 Therapeutic Interventions Therapeutic Interventions Balance Training,Home Exercise Program,Manual Therapy, Neuromuscular Re-education, Patient/Caregiver Education, Self-Care/Home Management,Soft Tissue Mobilization,Taping, Therapeutic Activities, Therapeutic Exercises Modalities Cold Pack/Ice Massage,Hot Packs Next Visit Focus/Plan Next Note Type Treatment Note Next Visit Plan Progress back to further standing activities as well as mat mobility including prone exercises including f/b/ lateral quadruped locomotion.
--- NOTE | 2023-11-17 16:18 | PT.OTN ---
Current Diagnoses Multiple sclerosis (11/17/23) Physical Therapy Treatment Note PT-OP-A Visit Information Start: 09/24/22 09:30 Freq: Status: Active Protocol: Document 11/17/23 15:13 SAK (Rec: 11/17/23 16:18 [facility] [id number]) Out-Patient Physical Therapy Visit Information Visit Information Visit Type Treatment Note Visit Start Time 15:16 Visit Stop Time 16:01 Visit Number 49 Number of ACCOUNTS PAYABLE SPECIALIST Visits 0 Evaluation Information Evaluation Date 09/24/22 Precautions Precautions MS, don't overfatigue, esophageal stenosis PT-OP-B Current Condition Start: 09/24/22 09:30 Freq: Status: Active Protocol: Document 11/17/23 15:13 SAK (Rec: 11/17/23 16:18 [facility] [id number]) Current Condition History of Current Condition Onset Date March 2019 Current Complaints weakness due to MS, right shoulder pain, LBP History of Current Condition history MS with worsening weakness, as well as right shoulder pain (patient right handed). Patient has caregiver who assists her primarily with household tasks, HEP, walking. She uses a 4WW to walk short diestances (approx 30 feet) in the home, manual w /c for community mobility. No recent falls, but has history of falls. Reports was evaluated for power wheelchair recently but was denied. C/o right shoulder pain and tightness especially with reaching and propelling manual w/c. Well known to this PT for both land and aquatic- based PT. Prior Treatments and Tests prior PT; land and aquatic Future Testing and Treatments Planned nothing planned yet PT-OP-C Subjective Start: 09/24/22 09:30 Freq: Status: Active Protocol: Document 11/17/23 15:13 SAK (Rec: 11/17/23 16:18 [facility] [id number]) OP-PT Subjective Patient Comments Patient Comments didn't do any exercises this past week due to celebration of life for her dad, company, etc, travelling, hotel. Knee hasn't been hurting but right leg continues to feel weaker. Thinks overheated last night as well PT-OP-D Balance Start: 09/24/22 09:30 Freq: Status: Active Protocol: Document 09/24/22 09:06 SAK (Rec: 09/28/22 11:39 [facility] [id number]) Tinetti Balance Assessment Sitting Balance Sitting Balance Steady, safe Standing Balance Immediate Standing Balance Steady with support Turning Step Pattern Turning 360 Degrees Discontinuous steps Sitting Down Sitting Down Uses arms or unsteady Gait and Step Initiation of Gait Hesitancy, mult. attempts Right Foot Step Length Does not pass stance ft. Right Foot Step Height Does not clear floor Left Foot Step Length Does not pass stance foot Left Foot Step Height Does not clear floor Step Description Step Symmetry Step length appears equal Step Continuity Stopping or discontinuity Gait Description Path Description Mild/moderate deviation Trunk Description Marked sway or uses aide Walking Stance Heels apart Scoring and Interpretation Tinetti Composite Score (points) 5 PT-OP-E Functional Tests Start: 09/24/22 09:30 Freq: Status: Active Protocol: Document 09/24/22 09:06 [facility] (Rec: 09/28/22 11:39 [facility] [id number]) Functional Tests 2 Minute Walk Test Distance 127 Device Used 4WW PT-OP-G Mobility & Gait Start: 09/24/22 09:30 Freq: Status: Active Protocol: Document 09/24/22 09:06 [facility] (Rec: 09/28/22 11:39 [facility] [id number]) OP Mobility Evaluation Bed Mobility Supine to and from Sit indep Transfers Bed to Chair Transfers indep Car Transfers assisted Floor Transfers not performed OP Gait Assessment Gait Gait Assistance Required: Minimum Assistance Distance (Feet) 127 Assistive Devices Assistive Device Gait Belt,Front Wheeled Walker Orthotic/Prosthetic Devices or Brace: No Gait Deviations General Gait Pattern Decreased Stride Length, Decreased Feet Clearance, Flexed Trunk Factors Limiting Gait Function Factors Limiting Gait Function Abnormal Tonal Influences, Decreased Activity Tolerance, Decreased Strength,Pain Stair Climbing Evaluation Comments Stair Climbing Comments unable PT-OP-H Neuro Start: 09/24/22 09:30 Freq: Status: Active Protocol: Document 09/24/22 09:06 [facility] (Rec: 09/28/22 11:39 [facility] [id number]) Sensation Evaluation Gross Sensation Gross Sensation Left LE Impaired,Right LE Impaired,Trunk Impaired PT-OP-J Posture/Palpation/Skin Start: 09/24/22 09:30 Freq: Status: Active Protocol: Document 09/24/22 09:06 [facility] (Rec: 09/28/22 11:39 [facility] [id number]) Posture Evaluation Position Sitting Head/C-Spine Posture Forward Head Shoulder Posture (L) Rounded,(R) Rounded Shoulder Subluxation Position (L) Anterior,(R) Anterior Scapula Posture (L) Protracted,(R) Protracted Arm Posture (L) Internally Rotated,(R) Internally Rotated PT-OP-K Range of Motion Start: 09/24/22 09:30 Freq: Status: Active Protocol: Document 09/24/22 09:06 [facility] (Rec: 09/28/22 11:39 [facility] [id number]) Hip Goniometric Range of Motion Hip chelle Straight Leg Raise 145 Hip ROM Limitations Hip ROM Limitations Soft Tissue Tightness Ankle and Foot Goniometric Range of Motion Ankle and Foot chelle Dorsiflexion with Knee Flexed 0 Ankle and Foot ROM Limitations ROM Limitations Soft Tissue Tightness PT-OP-M Strength Start: 09/24/22 09:30 Freq: Status: Active Protocol: Document 09/24/22 09:31 [facility] (Rec: 09/24/22 10:22 [facility] [id number]) Trunk Strength Trunk Manual Muscle Testing Flexion 3- Fair- Extension 2+ Poor+ Rotation Left 3- Fair- Rotation Right 3- Fair- Lateral Flexion Left 3- Fair- Lateral Flexion Right 3- Fair- Scapula Strength Scapula Manual Muscle Testing chelle Elevation (C4) 4+ Good+ Adduction 3+ Fair+ Abduction 3 Fair Depression 3+ Fair+ Shoulder Strength Shoulder Manual Muscle Testing Left Flexion 4 Good Extension 4 Good Abduction (C5) 4 Good Adduction 4 Good External Rotation 4 Good Internal Rotation 4 Good Horizontal Abduction 4 Good Horizontal Adduction 4 Good Right Flexion 4 Good Extension 4 Good Abduction (C5) 4 Good Adduction 4 Good External Rotation 4 Good Internal Rotation 4 Good Horizontal Abduction 4 Good Horizontal Adduction 4 Good Elbow/Forearm Strength Elbow and Forearm Manual Muscle Testing Left Flexion (C6) 4 Good Extension (C7) 4 Good Right Comments pain with resisted flex,ab,ER Hip Strength Hip Manual Muscle Testing Left Flexion (L2) 4- Good- Abduction 3- Fair- Adduction 3+ Fair+ Right Flexion (L2) 4- Good- Abduction 2+ Poor+ Adduction 3+ Fair+ Knee Strength Knee Manual Muscle Testing Left Flexion (S2) 4 Good Extension (L3) 4 Good Right Flexion (S2) 4- Good- Extension (L3) 4- Good- Ankle/Foot Strength Ankle and Foot Manual Muscle Testing Left Dorsiflexion (L4) 3+ Fair+ Plantarflexion (S1) 3+ Fair+ Right Dorsiflexion (L4) 3+ Fair+ Plantarflexion (S1) 3+ Fair+ PT-OP-Q Treatments Start: 09/24/22 09:30 Freq: Status: Active Protocol: Document 11/17/23 15:13 [facility] (Rec: 11/17/23 16:18 [facility] [id number]) Cardio Equipment Recumbent Stepper (Sci-Fit) Duration (Minutes) 5 Resistance 1 Seat Position 13 Other .52 mi, 52 RPM Therapeutic Exercises Supine Exercises UE theraband Supine Exercise Name hor ab, diag Resistance L2 TB Reps/Minutes 20x pec stretch Reps/Minutes 2x30 quad stretch Reps/Minutes 2x30 Comments legs over the side of the table IT band stretch Reps/Minutes 2x30 Comments manual figure 4 Side bilateral Resistance AROM Reps/Minutes 60 Comments good adductor/hip flexor stretch piriformis stretch Side bilateral Reps/Minutes 60 Comments cued for sequencing HC stretch Supine Exercise Name HS stretch Side bilateral Equipment Used supine manual Reps/Minutes 60 Comments good feedback stretch hip flexor stretch Side bilateral Resistance mat table BLEs off edge ( perpendicular to EOtable) Reps/Minutes 60 Comments good feedback hip flexor stretch HS stretch Side bilateral Reps/Minutes 2x30 Comments manual Sitting Exercises march Resistance 2# Reps/Minutes 20x lateral reaches Side bilateral Equipment Used dynadisc Reps/Minutes 20x ball squeeze Equipment Used dynadisc Reps/Minutes 10x2 Comments TB under ball lean backs Equipment Used seated on dynadisc Reps/Minutes 20x LAQ Side bilateral Resistance 2# Reps/Minutes 7x right, 10x left, 3x right Comments seated on blue dynadisc Gait Training Gait Activity //bars Description fwd, bck Device Used bars Level of Assistance CGA Distance/Duration 10 ft x1 laps, seated rest between, 5ft x 1, 2ft x 2 Treatment Focus TKE, posture, safety FWW Level of Assistance CGA to mod assist balance Surface firm Distance/Duration 15 ft Comments stopped due to instability right LE Manual Therapy Treatment Taping right knee Body Location meniscus Treatment Focus pain relief Type of Tape KT Skin Inspection intact Comments I strip 50% stretch tibial tuberosity proximal and medial across knee joint line PT-OP-T Assessment and Plan Start: 09/24/22 09:30 Freq: Status: Active Protocol: Document 11/17/23 15:13 [facility] (Rec: 11/17/23 16:18 [facility] [id number]) Physical Therapy Assessment Goals Three Impairment pain right shoulder and low back Impairment diffiuculty performing ADL's due to pain and pain in right shoulder limits gait due to heavy use of walker Group Home Goal (LTG) Patient to report at least 50% decrease in pain with all usual activities and be independent with HEP for purposes of core stab, shoulder strengthening and stab 12/24/22: patient reported decrease in shoulder pain during vacation with not having to wheel herself (used power w/c), but has increased since starting to wheel again. Dec c/o LBP. Goal progress 02/18/23: reports decrease in shoulder pain to 0-4/10. Hadn 't been having back pain until exacerbation 2 weeks ago which appears QL. 05/18/23: goal progress with both shoulder and back pain 08/09/23: good goal progress, mostly met. 11/10/23: spasming in mucles above hips 06/29, lasts 1-2 secs, no pain in shoulders LTG Duration 02/10/24 One Impairment gait dysfunction Impairment 2 min walk test 127 ft, not able to tolerate 6 min walk test due to fatigue UE's from supporting body on walker and LE fatigue requiring 2 brief standing breaks, needing to stop at 2 min Short Term Goal (STG) Improve 2 min walk test to at least 150 ft as measure of improved functional gait 12/24/22: only able to ambulate 75 ft today and experienced giving way of left knee skilled nursing through gait requiring mod assist to correct. 02/18/23: 2 min walk test 68 ft today, limited due to back pain and left leg giving way requiring her to sit 05/18/23: goal abandoned. See LTG STG Duration goal abandoned. [employer] Goal (LTG) Patient able to tolerate 6 min walk test with gait distance of at least 300 ft as measure of improved functional gait 05/18/23: goal modification due to inability to reach this goal: New goal: patient able to tolerate 3 min walk test and walk a distance of at least 150 feet. (current max is 109 ft) 08/09/23: patient has been more limited in her walking tolerance due to increased weakness in her legs related to her MS 11/10/23: distance for walking remains limited due to weakness in LE's, fatigue from UE's holding her up, right knee pain today. LTG Duration 02/10/24 Four Impairment weakness Impairment 5x sit to stand test 15 sec with moderate use of hands moderate core muscle weakness with less than anti-gravity strength Short Term Goal (STG) Patient to be independent and compliant with updated HEP for purposes of LE and trunk muscle strengthening 12/24/22: patient was on vacation 1 month, not as compliant, noting dec functional strength today. HEP has been updated. Goal progress 02/18/23: patient compliant with HEP, ongoing progression STG Duration goal met Group Home Goal (LTG) Patient able to perform 5x sit to stand test in 10 sec as measure of improved functional LE strength and demonstrate 1 grade improvement in trunk muscle strength for improved safety with ADL performance 02/18/23: 10 sec today with 5x sit to stand. Noting improved functional core strength, good goal progress 05/18/23: not able to retest due to patient activity intolerance today due to esophageal stenosis 08/09/23: improved ability since last retested, has had surgery for espophageal stenosis. 13 seconds today vs unable to perform last session 11/10/23: 14.1 first trial 10.9 sec second trial Hip flex 3+/5R 4-/5 , ab2-/5 R 2+-/5 ad 2+/5R 3+/5L , ext Knee ext 4-/5R, 4+/5L , flex 4 -/5 R, 4+/5 L Ankle df 4-/5R, 4/5 pf 4/5R, 4+/5L, inv 3+/5R, 4/5 L, ev 3+ /5R 4+/5 L LTG Duration 02/10/24 Two Impairment balance dysfunction Impairment Tinetti gait and balance assessment 11/16 indicating patient at high risk for falls static standing 44 sec without holding on Short Term Goal (STG) Patient to be independent and compliant with gait and balance HEP 12/24/22: as above not as compliant to HEP and not ambulating while on vacation 02/18/23: 41 sec standing, limited by back pain 05/18/23: unable to retest due to esophageal stenosis with dec activity tolerance today 08/09/23: has had more limited standing tolerance due to weakness from MS, 16 sec today STG Duration 12/21/23 Group Home Goal (LTG) Improve Tinetti gait and balance assessment score to moderate fall risk range to improve safety in the home and community improve static standing balance to at least 60 sec 11/10/23: 44 sec, improved over last testing LTG Duration 02/10/24 Progress Towards Goals Progress Towards Goals Slow Progress due to Medical Issues Assessment Summary Assessment Patient having difficulty today due to right leg giving way and overall increased fatigue level Physical Therapy Plan Frequency and Duration Frequency of Treatment 1x/Week Duration of treatment (weeks) 12 Plan of Care Start Date 11/10/23 Plan of Care End Date 02/10/24 Therapeutic Interventions Therapeutic Interventions Balance Training,Home Exercise Program,Manual Therapy, Neuromuscular Re-education, Patient/Caregiver Education, Self-Care/Home Management,Soft Tissue Mobilization,Taping, Therapeutic Activities, Therapeutic Exercises Modalities Cold Pack/Ice Massage,Hot Packs Next Visit Focus/Plan Next Note Type Treatment Note Next Visit Plan Progress back to further standing activities as well as mat mobility including prone exercises including f/b/ lateral quadruped locomotion.
--- NOTE | 2023-11-30 12:16 | PT.OTN ---
Current Diagnoses Multiple sclerosis (11/30/23) Physical Therapy Treatment Note PT-OP-A Visit Information Start: 09/24/22 09:30 Freq: Status: Active Protocol: Document 11/30/23 11:20 [facility] (Rec: 11/30/23 12:16 [facility] [id number]) Out-Patient Physical Therapy Visit Information Visit Information Visit Type Treatment Note Visit Start Time 11:20 Visit Stop Time 12:05 Visit Number 50 Evaluation Information Evaluation Date 09/24/22 Precautions Precautions MS, don't overfatigue, esophageal stenosis PT-OP-B Current Condition Start: 09/24/22 09:30 Freq: Status: Active Protocol: Document 11/30/23 11:20 [facility] (Rec: 11/30/23 12:16 [facility] [id number]) Current Condition History of Current Condition Onset Date March 2019 Current Complaints weakness due to MS, right shoulder pain, LBP History of Current Condition history MS with worsening weakness, as well as right shoulder pain (patient right handed). Patient has caregiver who assists her primarily with household tasks, HEP, walking. She uses a 4WW to walk short diestances (approx 30 feet) in the home, manual w /c for community mobility. No recent falls, but has history of falls. Reports was evaluated for power wheelchair recently but was denied. C/o right shoulder pain and tightness especially with reaching and propelling manual w/c. Well known to this PT for both land and aquatic- based PT. Prior Treatments and Tests prior PT; land and aquatic Future Testing and Treatments Planned nothing planned yet PT-OP-C Subjective Start: 09/24/22 09:30 Freq: Status: Active Protocol: Document 11/30/23 11:20 [facility] (Rec: 11/30/23 12:16 [facility] [id number]) OP-PT Subjective Patient Comments Patient Comments Went to pool last week for 1/2 hr, felt she overdid it but felt good. Not able to walk this week, has been doing some standing and cooking 3 days past week; stood as long as her legs would hold her. PT-OP-D Balance Start: 09/24/22 09:30 Freq: Status: Active Protocol: Document 09/24/22 09:06 [facility] (Rec: 09/28/22 11:39 [facility] [id number]) Tinetti Balance Assessment Sitting Balance Sitting Balance Steady, safe Standing Balance Immediate Standing Balance Steady with support Turning Step Pattern Turning 360 Degrees Discontinuous steps Sitting Down Sitting Down Uses arms or unsteady Gait and Step Initiation of Gait Hesitancy, mult. attempts Right Foot Step Length Does not pass stance ft. Right Foot Step Height Does not clear floor Left Foot Step Length Does not pass stance foot Left Foot Step Height Does not clear floor Step Description Step Symmetry Step length appears equal Step Continuity Stopping or discontinuity Gait Description Path Description Mild/moderate deviation Trunk Description Marked sway or uses aide Walking Stance Heels apart Scoring and Interpretation Tinetti Composite Score (points) 5 PT-OP-E Functional Tests Start: 09/24/22 09:30 Freq: Status: Active Protocol: Document 09/24/22 09:06 [facility] (Rec: 09/28/22 11:39 [facility] [id number]) Functional Tests 2 Minute Walk Test Distance 127 Device Used 4WW PT-OP-G Mobility & Gait Start: 09/24/22 09:30 Freq: Status: Active Protocol: Document 09/24/22 09:06 [facility] (Rec: 09/28/22 11:39 [facility] [id number]) OP Mobility Evaluation Bed Mobility Supine to and from Sit indep Transfers Bed to Chair Transfers indep Car Transfers assisted Floor Transfers not performed OP Gait Assessment Gait Gait Assistance Required: Minimum Assistance Distance (Feet) 127 Assistive Devices Assistive Device Gait Belt,Front Wheeled Walker Orthotic/Prosthetic Devices or Brace: No Gait Deviations General Gait Pattern Decreased Stride Length, Decreased Feet Clearance, Flexed Trunk Factors Limiting Gait Function Factors Limiting Gait Function Abnormal Tonal Influences, Decreased Activity Tolerance, Decreased Strength,Pain Stair Climbing Evaluation Comments Stair Climbing Comments unable PT-OP-H Neuro Start: 09/24/22 09:30 Freq: Status: Active Protocol: Document 09/24/22 09:06 [facility] (Rec: 09/28/22 11:39 [facility] [id number]) Sensation Evaluation Gross Sensation Gross Sensation Left LE Impaired,Right LE Impaired,Trunk Impaired PT-OP-J Posture/Palpation/Skin Start: 09/24/22 09:30 Freq: Status: Active Protocol: Document 09/24/22 09:06 [facility] (Rec: 09/28/22 11:39 [facility] [id number]) Posture Evaluation Position Sitting Head/C-Spine Posture Forward Head Shoulder Posture (L) Rounded,(R) Rounded Shoulder Subluxation Position (L) Anterior,(R) Anterior Scapula Posture (L) Protracted,(R) Protracted Arm Posture (L) Internally Rotated,(R) Internally Rotated PT-OP-K Range of Motion Start: 09/24/22 09:30 Freq: Status: Active Protocol: Document 09/24/22 09:06 [facility] (Rec: 09/28/22 11:39 [facility] [id number]) Hip Goniometric Range of Motion Hip chelle Straight Leg Raise 145 Hip ROM Limitations Hip ROM Limitations Soft Tissue Tightness Ankle and Foot Goniometric Range of Motion Ankle and Foot chelle Dorsiflexion with Knee Flexed 0 Ankle and Foot ROM Limitations ROM Limitations Soft Tissue Tightness PT-OP-M Strength Start: 09/24/22 09:30 Freq: Status: Active Protocol: Document 09/24/22 09:31 [facility] (Rec: 09/24/22 10:22 [facility] [id number]) Trunk Strength Trunk Manual Muscle Testing Flexion 3- Fair- Extension 2+ Poor+ Rotation Left 3- Fair- Rotation Right 3- Fair- Lateral Flexion Left 3- Fair- Lateral Flexion Right 3- Fair- Scapula Strength Scapula Manual Muscle Testing chelle Elevation (C4) 4+ Good+ Adduction 3+ Fair+ Abduction 3 Fair Depression 3+ Fair+ Shoulder Strength Shoulder Manual Muscle Testing Left Flexion 4 Good Extension 4 Good Abduction (C5) 4 Good Adduction 4 Good External Rotation 4 Good Internal Rotation 4 Good Horizontal Abduction 4 Good Horizontal Adduction 4 Good Right Flexion 4 Good Extension 4 Good Abduction (C5) 4 Good Adduction 4 Good External Rotation 4 Good Internal Rotation 4 Good Horizontal Abduction 4 Good Horizontal Adduction 4 Good Elbow/Forearm Strength Elbow and Forearm Manual Muscle Testing Left Flexion (C6) 4 Good Extension (C7) 4 Good Right Comments pain with resisted flex,ab,ER Hip Strength Hip Manual Muscle Testing Left Flexion (L2) 4- Good- Abduction 3- Fair- Adduction 3+ Fair+ Right Flexion (L2) 4- Good- Abduction 2+ Poor+ Adduction 3+ Fair+ Knee Strength Knee Manual Muscle Testing Left Flexion (S2) 4 Good Extension (L3) 4 Good Right Flexion (S2) 4- Good- Extension (L3) 4- Good- Ankle/Foot Strength Ankle and Foot Manual Muscle Testing Left Dorsiflexion (L4) 3+ Fair+ Plantarflexion (S1) 3+ Fair+ Right Dorsiflexion (L4) 3+ Fair+ Plantarflexion (S1) 3+ Fair+ PT-OP-Q Treatments Start: 09/24/22 09:30 Freq: Status: Active Protocol: Document 11/30/23 11:20 [facility] (Rec: 11/30/23 12:16 [facility] [id number]) Cardio Equipment Recumbent Stepper (Sci-Fit) Duration (Minutes) 5 Resistance 1 Seat Position 13 Other .5 mi, 52 RPM Therapeutic Exercises Supine Exercises SLR Reps/Minutes 8x Comments 2-3 lift bridge Reps/Minutes 10x SAQ Resistance 2# Reps/Minutes 15x figure 4 Side bilateral Resistance AROM Reps/Minutes 60 Comments good adductor/hip flexor stretch piriformis stretch Side bilateral Reps/Minutes 60 Comments cued for sequencing HC stretch Supine Exercise Name HS stretch Side bilateral Equipment Used supine manual Reps/Minutes 60 Comments good feedback stretch hip flexor stretch Side bilateral Resistance mat table BLEs off edge ( perpendicular to EOtable) Reps/Minutes 60 Comments good feedback hip flexor stretch HS stretch Side bilateral Reps/Minutes 2x30 Comments manual Sitting Exercises elbow to opp knee Equipment Used 2# on knees Reps/Minutes 10x lateral reaches Side bilateral Equipment Used dynadisc Reps/Minutes 20x ball squeeze Equipment Used dynadisc Reps/Minutes 10x STS Reps/Minutes 8 Comments min to max use of UE's with fatigue lean backs Equipment Used seated on dynadisc Reps/Minutes 20x LAQ Side bilateral Resistance 2# Reps/Minutes 7x right, 10x left, 3x right sit<> stands Reps/Minutes 8x Standing Exercises sidestepping Comments resume next session Gait Training Gait Activity //bars Description fwd, bck, standing Device Used bars Level of Assistance CGA Distance/Duration 10 ft x1 laps, seated rest between, 5ft x 1, 2ft x 2 Treatment Focus TKE, posture, safety FWW Level of Assistance CGA to mod assist balance Surface firm Distance/Duration 30 ft Comments stopped due to instability right LE, UE fatigue Manual Therapy Treatment Taping right knee Body Location meniscus Treatment Focus pain relief Type of Tape KT Skin Inspection intact Comments I strip 50% stretch tibial tuberosity proximal and medial across knee joint line PT-OP-T Assessment and Plan Start: 09/24/22 09:30 Freq: Status: Active Protocol: Document 11/30/23 11:20 [facility] (Rec: 11/30/23 12:16 [facility] [id number]) Physical Therapy Assessment Goals Three Impairment pain right shoulder and low back Impairment diffiuculty performing ADL's due to pain and pain in right shoulder limits gait due to heavy use of walker Usp Goal (LTG) Patient to report at least 50% decrease in pain with all usual activities and be independent with HEP for purposes of core stab, shoulder strengthening and stab 12/24/22: patient reported decrease in shoulder pain during vacation with not having to wheel herself (used power w/c), but has increased since starting to wheel again. Dec c/o LBP. Goal progress 02/18/23: reports decrease in shoulder pain to 0-4/10. Hadn 't been having back pain until exacerbation 2 weeks ago which appears QL. 05/18/23: goal progress with both shoulder and back pain 08/09/23: good goal progress, mostly met. 11/10/23: spasming in mucles above hips 06/29, lasts 1-2 secs, no pain in shoulders LTG Duration 02/10/24 One Impairment gait dysfunction Impairment 2 min walk test 127 ft, not able to tolerate 6 min walk test due to fatigue UE's from supporting body on walker and LE fatigue requiring 2 brief standing breaks, needing to stop at 2 min Short Term Goal (STG) Improve 2 min walk test to at least 150 ft as measure of improved functional gait 12/24/22: only able to ambulate 75 ft today and experienced giving way of left knee longterm through gait requiring mod assist to correct. 02/18/23: 2 min walk test 68 ft today, limited due to back pain and left leg giving way requiring her to sit 05/18/23: goal abandoned. See LTG STG Duration goal abandoned. [employer] Goal (LTG) Patient able to tolerate 6 min walk test with gait distance of at least 300 ft as measure of improved functional gait 05/18/23: goal modification due to inability to reach this goal: New goal: patient able to tolerate 3 min walk test and walk a distance of at least 150 feet. (current max is 109 ft) 08/09/23: patient has been more limited in her walking tolerance due to increased weakness in her legs related to her MS 11/10/23: distance for walking remains limited due to weakness in LE's, fatigue from UE's holding her up, right knee pain today. LTG Duration 02/10/24 Four Impairment weakness Impairment 5x sit to stand test 15 sec with moderate use of hands moderate core muscle weakness with less than anti-gravity strength Short Term Goal (STG) Patient to be independent and compliant with updated HEP for purposes of LE and trunk muscle strengthening 12/24/22: patient was on vacation 1 month, not as compliant, noting dec functional strength today. HEP has been updated. Goal progress 02/18/23: patient compliant with HEP, ongoing progression STG Duration goal met [employer] Goal (LTG) Patient able to perform 5x sit to stand test in 10 sec as measure of improved functional LE strength and demonstrate 1 grade improvement in trunk muscle strength for improved safety with ADL performance 02/18/23: 10 sec today with 5x sit to stand. Noting improved functional core strength, good goal progress 05/18/23: not able to retest due to patient activity intolerance today due to esophageal stenosis 08/09/23: improved ability since last retested, has had surgery for espophageal stenosis. 13 seconds today vs unable to perform last session 11/10/23: 14.1 first trial 10.9 sec second trial Hip flex 3+/5R 4-/5 , ab2-/5 R 2+-/5 ad 2+/5R 3+/5L , ext Knee ext 4-/5R, 4+/5L , flex 4 -/5 R, 4+/5 L Ankle df 4-/5R, 4/5 pf 4/5R, 4+/5L, inv 3+/5R, 4/5 L, ev 3+ /5R 4+/5 L LTG Duration 02/10/24 Two Impairment balance dysfunction Impairment Tinetti gait and balance assessment 11/16 indicating patient at high risk for falls static standing 44 sec without holding on Short Term Goal (STG) Patient to be independent and compliant with gait and balance HEP 12/24/22: as above not as compliant to HEP and not ambulating while on vacation 02/18/23: 41 sec standing, limited by back pain 05/18/23: unable to retest due to esophageal stenosis with dec activity tolerance today 08/09/23: has had more limited standing tolerance due to weakness from MS, 16 sec today STG Duration 12/21/23 Usp Goal (LTG) Improve Tinetti gait and balance assessment score to moderate fall risk range to improve safety in the home and community improve static standing balance to at least 60 sec 11/10/23: 44 sec, improved over last testing LTG Duration 02/10/24 Progress Towards Goals Progress Towards Goals Slow Progress due to Medical Issues Assessment Summary Assessment Increased standing ex with walking, parallel bars, sit to stand. seated core and knee ex, supine hip ex. Physical Therapy Plan Frequency and Duration Frequency of Treatment 1x/Week Duration of treatment (weeks) 12 Plan of Care Start Date 11/10/23 Plan of Care End Date 02/10/24 Therapeutic Interventions Therapeutic Interventions Balance Training,Home Exercise Program,Manual Therapy, Neuromuscular Re-education, Patient/Caregiver Education, Self-Care/Home Management,Soft Tissue Mobilization,Taping, Therapeutic Activities, Therapeutic Exercises Modalities Cold Pack/Ice Massage,Hot Packs Next Visit Focus/Plan Next Note Type Treatment Note Next Visit Plan Continue PT per POC
--- NOTE | 2023-12-07 09:02 | PT.OTN ---
Current Diagnoses Multiple sclerosis (12/07/23) Physical Therapy Treatment Note PT-OP-A Visit Information Start: 09/24/22 09:30 Freq: Status: Active Protocol: Document 12/07/23 13:44 SAK (Rec: 12/07/23 14:40 [facility] [id number]) Out-Patient Physical Therapy Visit Information Visit Information Visit Type Treatment Note Visit Start Time 13:44 Visit Stop Time 14:30 Visit Number 45 Evaluation Information Evaluation Date 09/24/22 Precautions Precautions MS, don't overfatigue, esophageal stenosis PT-OP-B Current Condition Start: 09/24/22 09:30 Freq: Status: Active Protocol: Document 12/07/23 13:44 SAK (Rec: 12/07/23 14:40 [facility] [id number]) Current Condition History of Current Condition Onset Date March 2019 Current Complaints weakness due to MS, right shoulder pain, LBP History of Current Condition history MS with worsening weakness, as well as right shoulder pain (patient right handed). Patient has caregiver who assists her primarily with household tasks, HEP, walking. She uses a 4WW to walk short diestances (approx 30 feet) in the home, manual w /c for community mobility. No recent falls, but has history of falls. Reports was evaluated for power wheelchair recently but was denied. C/o right shoulder pain and tightness especially with reaching and propelling manual w/c. Well known to this PT for both land and aquatic- based PT. Prior Treatments and Tests prior PT; land and aquatic Future Testing and Treatments Planned nothing planned yet PT-OP-C Subjective Start: 09/24/22 09:30 Freq: Status: Active Protocol: Document 12/07/23 13:44 [facility] (Rec: 12/07/23 14:40 [facility] [id number]) OP-PT Subjective Patient Comments Patient Comments Did a lot of standing this week, walked 1x. right knee soreness causing pt to be slower on Sci-Fit. Did HEP. 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 PT-OP-D Balance Start: 09/24/22 09:30 Freq: Status: Active Protocol: Document 09/24/22 09:06 SAK (Rec: 09/28/22 11:39 [facility] [id number]) Tinetti Balance Assessment Sitting Balance Sitting Balance Steady, safe Standing Balance Immediate Standing Balance Steady with support Turning Step Pattern Turning 360 Degrees Discontinuous steps Sitting Down Sitting Down Uses arms or unsteady Gait and Step Initiation of Gait Hesitancy, mult. attempts Right Foot Step Length Does not pass stance ft. Right Foot Step Height Does not clear floor Left Foot Step Length Does not pass stance foot Left Foot Step Height Does not clear floor Step Description Step Symmetry Step length appears equal Step Continuity Stopping or discontinuity Gait Description Path Description Mild/moderate deviation Trunk Description Marked sway or uses aide Walking Stance Heels apart Scoring and Interpretation Tinetti Composite Score (points) 5 PT-OP-E Functional Tests Start: 09/24/22 09:30 Freq: Status: Active Protocol: Document 09/24/22 09:06 [facility] (Rec: 09/28/22 11:39 [facility] [id number]) Functional Tests 2 Minute Walk Test Distance 127 Device Used 4WW PT-OP-G Mobility & Gait Start: 09/24/22 09:30 Freq: Status: Active Protocol: Document 09/24/22 09:06 [facility] (Rec: 09/28/22 11:39 [facility] [id number]) OP Mobility Evaluation Bed Mobility Supine to and from Sit indep Transfers Bed to Chair Transfers indep Car Transfers assisted Floor Transfers not performed OP Gait Assessment Gait Gait Assistance Required: Minimum Assistance Distance (Feet) 127 Assistive Devices Assistive Device Gait Belt,Front Wheeled Walker Orthotic/Prosthetic Devices or Brace: No Gait Deviations General Gait Pattern Decreased Stride Length, Decreased Feet Clearance, Flexed Trunk Factors Limiting Gait Function Factors Limiting Gait Function Abnormal Tonal Influences, Decreased Activity Tolerance, Decreased Strength,Pain Stair Climbing Evaluation Comments Stair Climbing Comments unable PT-OP-H Neuro Start: 09/24/22 09:30 Freq: Status: Active Protocol: Document 09/24/22 09:06 [facility] (Rec: 09/28/22 11:39 [facility] [id number]) Sensation Evaluation Gross Sensation Gross Sensation Left LE Impaired,Right LE Impaired,Trunk Impaired PT-OP-J Posture/Palpation/Skin Start: 09/24/22 09:30 Freq: Status: Active Protocol: Document 09/24/22 09:06 [facility] (Rec: 09/28/22 11:39 [facility] [id number]) Posture Evaluation Position Sitting Head/C-Spine Posture Forward Head Shoulder Posture (L) Rounded,(R) Rounded Shoulder Subluxation Position (L) Anterior,(R) Anterior Scapula Posture (L) Protracted,(R) Protracted Arm Posture (L) Internally Rotated,(R) Internally Rotated PT-OP-K Range of Motion Start: 09/24/22 09:30 Freq: Status: Active Protocol: Document 09/24/22 09:06 [facility] (Rec: 09/28/22 11:39 [facility] [id number]) Hip Goniometric Range of Motion Hip chelle Straight Leg Raise 145 Hip ROM Limitations Hip ROM Limitations Soft Tissue Tightness Ankle and Foot Goniometric Range of Motion Ankle and Foot chelle Dorsiflexion with Knee Flexed 0 Ankle and Foot ROM Limitations ROM Limitations Soft Tissue Tightness PT-OP-M Strength Start: 09/24/22 09:30 Freq: Status: Active Protocol: Document 09/24/22 09:31 [facility] (Rec: 09/24/22 10:22 [facility] [id number]) Trunk Strength Trunk Manual Muscle Testing Flexion 3- Fair- Extension 2+ Poor+ Rotation Left 3- Fair- Rotation Right 3- Fair- Lateral Flexion Left 3- Fair- Lateral Flexion Right 3- Fair- Scapula Strength Scapula Manual Muscle Testing chelle Elevation (C4) 4+ Good+ Adduction 3+ Fair+ Abduction 3 Fair Depression 3+ Fair+ Shoulder Strength Shoulder Manual Muscle Testing Left Flexion 4 Good Extension 4 Good Abduction (C5) 4 Good Adduction 4 Good External Rotation 4 Good Internal Rotation 4 Good Horizontal Abduction 4 Good Horizontal Adduction 4 Good Right Flexion 4 Good Extension 4 Good Abduction (C5) 4 Good Adduction 4 Good External Rotation 4 Good Internal Rotation 4 Good Horizontal Abduction 4 Good Horizontal Adduction 4 Good Elbow/Forearm Strength Elbow and Forearm Manual Muscle Testing Left Flexion (C6) 4 Good Extension (C7) 4 Good Right Comments pain with resisted flex,ab,ER Hip Strength Hip Manual Muscle Testing Left Flexion (L2) 4- Good- Abduction 3- Fair- Adduction 3+ Fair+ Right Flexion (L2) 4- Good- Abduction 2+ Poor+ Adduction 3+ Fair+ Knee Strength Knee Manual Muscle Testing Left Flexion (S2) 4 Good Extension (L3) 4 Good Right Flexion (S2) 4- Good- Extension (L3) 4- Good- Ankle/Foot Strength Ankle and Foot Manual Muscle Testing Left Dorsiflexion (L4) 3+ Fair+ Plantarflexion (S1) 3+ Fair+ Right Dorsiflexion (L4) 3+ Fair+ Plantarflexion (S1) 3+ Fair+ PT-OP-Q Treatments Start: 09/24/22 09:30 Freq: Status: Active Protocol: Document 12/07/23 13:44 SAK (Rec: 12/07/23 14:40 [facility]AK [id number]) Cardio Equipment Recumbent Stepper (Sci-Fit) Duration (Minutes) 5 Resistance 1 Seat Position 13 Other .47 mi, av 48 Therapeutic Exercises Supine Exercises trunk rotation Supine Exercise Name self LS & TS stretch Side bilateral Resistance AROM Equipment Used on mat table Reps/Minutes 30 x2 each side Comments Good mid thoracic and QL stretch&ROM- post manual IT band stretch Reps/Minutes 2x30 Comments manual figure 4 Side bilateral Resistance AROM Reps/Minutes 60 Comments good adductor/hip flexor stretch piriformis stretch Side bilateral Reps/Minutes 60 Comments cued for sequencing HC stretch Supine Exercise Name HS stretch Side bilateral Equipment Used supine manual Reps/Minutes 60 Comments good feedback stretch hip flexor stretch Side bilateral Resistance mat table BLEs off edge ( perpendicular to EOtable) Reps/Minutes 60 Comments good feedback hip flexor stretch Prone Exercises prone on elbows Reps/Minutes 10x2 sec hold Comments cued TA inhibit LS pressure. scapular retractions Comments cues less arm involvement Sitting Exercises elbow to opp knee Equipment Used 2# on knees Reps/Minutes 10x march Resistance 2# Reps/Minutes 20x STS Reps/Minutes 10x Comments after first 2 reps unable to achieve full knee extension, mod UE use rows, shoulder ext Resistance TB #2 therapist anchor Equipment Used seated on Dynadisc Reps/Minutes x20 Comments Good effort core challenge stability, unable disc under feet lean backs Equipment Used seated on dynadisc Reps/Minutes 10x LAQ Side bilateral Resistance 2# Reps/Minutes 10x chelle Gait Training Gait Activity FWW Level of Assistance CGA to mod assist balance Surface firm Distance/Duration 44 ft Comments stopped due to instability right LE, UE fatigue Manual Therapy Treatment Soft Tissue Mobilization right UT Mobilization Type Strumming,Sustained Pressure right rhomboids Mobilization Type Strumming,Sustained Pressure Intensity/Depth mod Body Position Sitting Taping right knee Body Location meniscus Treatment Focus pain relief Type of Tape KT Skin Inspection intact Comments I strip 50% stretch tibial tuberosity proximal and medial across knee joint line Self-Care/Home Management Treatment Education Other 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 PT-OP-T Assessment and Plan Start: 09/24/22 09:30 Freq: Status: Active Protocol: Document 12/07/23 13:44 [facility] (Rec: 12/07/23 14:40 [facility] [id number]) Physical Therapy Assessment Goals Three Impairment pain right shoulder and low back Impairment diffiuculty performing ADL's due to pain and pain in right shoulder limits gait due to heavy use of walker Senior Care Goal (LTG) Patient to report at least 50% decrease in pain with all usual activities and be independent with HEP for purposes of core stab, shoulder strengthening and stab 12/24/22: patient reported decrease in shoulder pain during vacation with not having to wheel herself (used power w/c), but has increased since starting to wheel again. Dec c/o LBP. Goal progress 02/18/23: reports decrease in shoulder pain to 0-4/10. Hadn 't been having back pain until exacerbation 2 weeks ago which appears QL. 05/18/23: goal progress with both shoulder and back pain 08/09/23: good goal progress, mostly met. 11/10/23: spasming in mucles above hips 06/29, lasts 1-2 secs, no pain in shoulders LTG Duration 02/10/24 One Impairment gait dysfunction Impairment 2 min walk test 127 ft, not able to tolerate 6 min walk test due to fatigue UE's from supporting body on walker and LE fatigue requiring 2 brief standing breaks, needing to stop at 2 min Short Term Goal (STG) Improve 2 min walk test to at least 150 ft as measure of improved functional gait 12/24/22: only able to ambulate 75 ft today and experienced giving way of left knee correction through gait requiring mod assist to correct. 02/18/23: 2 min walk test 68 ft today, limited due to back pain and left leg giving way requiring her to sit 05/18/23: goal abandoned. See LTG STG Duration goal abandoned. Senior Care Goal (LTG) Patient able to tolerate 6 min walk test with gait distance of at least 300 ft as measure of improved functional gait 05/18/23: goal modification due to inability to reach this goal: New goal: patient able to tolerate 3 min walk test and walk a distance of at least 150 feet. (current max is 109 ft) 08/09/23: patient has been more limited in her walking tolerance due to increased weakness in her legs related to her MS 11/10/23: distance for walking remains limited due to weakness in LE's, fatigue from UE's holding her up, right knee pain today. LTG Duration 02/10/24 Four Impairment weakness Impairment 5x sit to stand test 15 sec with moderate use of hands moderate core muscle weakness with less than anti-gravity strength Short Term Goal (STG) Patient to be independent and compliant with updated HEP for purposes of LE and trunk muscle strengthening 12/24/22: patient was on vacation 1 month, not as compliant, noting dec functional strength today. HEP has been updated. Goal progress 02/18/23: patient compliant with HEP, ongoing progression STG Duration goal met Developmental Training Counselor Goal (LTG) Patient able to perform 5x sit to stand test in 10 sec as measure of improved functional LE strength and demonstrate 1 grade improvement in trunk muscle strength for improved safety with ADL performance 02/18/23: 10 sec today with 5x sit to stand. Noting improved functional core strength, good goal progress 05/18/23: not able to retest due to patient activity intolerance today due to esophageal stenosis 08/09/23: improved ability since last retested, has had surgery for espophageal stenosis. 13 seconds today vs unable to perform last session 11/10/23: 14.1 first trial 10.9 sec second trial Hip flex 3+/5R 4-/5 , ab2-/5 R 2+-/5 ad 2+/5R 3+/5L , ext Knee ext 4-/5R, 4+/5L , flex 4 -/5 R, 4+/5 L Ankle df 4-/5R, 4/5 pf 4/5R, 4+/5L, inv 3+/5R, 4/5 L, ev 3+ /5R 4+/5 L LTG Duration 02/10/24 Two Impairment balance dysfunction Impairment Tinetti gait and balance assessment 11/16 indicating patient at high risk for falls static standing 44 sec without holding on Short Term Goal (STG) Patient to be independent and compliant with gait and balance HEP 12/24/22: as above not as compliant to HEP and not ambulating while on vacation 02/18/23: 41 sec standing, limited by back pain 05/18/23: unable to retest due to esophageal stenosis with dec activity tolerance today 08/09/23: has had more limited standing tolerance due to weakness from MS, 16 sec today STG Duration 12/21/23 Senior Care Goal (LTG) Improve Tinetti gait and balance assessment score to moderate fall risk range to improve safety in the home and community improve static standing balance to at least 60 sec 11/10/23: 44 sec, improved over last testing LTG Duration 02/10/24 Progress Towards Goals Progress Towards Goals Slow Progress due to Medical Issues Assessment Summary Assessment Improved gait with FWW to 44 ft today, longest in weeks, though after that with sit to stand needed inc UE support and after 2 reps unable to achieve full knee extension. Patient has limited ability to walk at home because needs caregiver for safety. Reports trying to do more standing at home at counter. 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 Physical Therapy Plan Frequency and Duration Frequency of Treatment 1x/Week Duration of treatment (weeks) 12 Plan of Care Start Date 11/10/23 Plan of Care End Date 02/10/24 Therapeutic Interventions Therapeutic Interventions Balance Training,Home Exercise Program,Manual Therapy, Neuromuscular Re-education, Patient/Caregiver Education, Self-Care/Home Management,Soft Tissue Mobilization,Taping, Therapeutic Activities, Therapeutic Exercises Modalities Cold Pack/Ice Massage,Hot Packs Next Visit Focus/Plan Next Note Type Treatment Note Next Visit Plan Gait training, neuro re-ed in sitting and standing, full body strengthening as tolerated.
--- NOTE | 2023-12-14 13:47 | PT.OTN ---
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 Patient has caregiver who assists her primarily with household tasks, HEP, walking. She uses a 4WW to walk short diestances (approx 30 feet) in the home, manual w /c for community mobility. No recent falls, but has history of falls. Reports was evaluated for power wheelchair recently but was denied. C/o right shoulder pain and tightness especially with reaching and propelling manual w/c. Well known to this PT for both land and aquatic- based PT. Prior Treatments and Tests prior PT; land and aquatic Future Testing and Treatments Planned nothing planned yet PT-OP-C Subjective Start: 09/24/22 09:30 Freq: Status: Active Protocol: Document 12/14/23 13:00 SP (Rec: 12/14/23 13:49 SP [id number]) OP-PT Subjective Patient Comments Patient Comments Pt reports BLEs were wobbly during car transfer before appt so might not be able to walk to far today. PT-OP-D Balance Start: 09/24/22 09:30 Freq: Status: Active Protocol: Document 09/24/22 09:06 SAK (Rec: 09/28/22 11:39 SAK [id number]) Tinetti Balance Assessment Sitting Balance Sitting Balance Steady, safe Standing Balance Immediate Standing Balance Steady with support Turning Step Pattern Turning 360 Degrees Discontinuous steps Sitting Down Sitting Down Uses arms or unsteady Gait and Step Initiation of Gait Hesitancy, mult. attempts Right Foot Step Length Does not pass stance ft. Right Foot Step Height Does not clear floor Left Foot Step Length Does not pass stance foot Left Foot Step Height Does not clear floor Step Description Step Symmetry Step length appears equal Step Continuity Stopping or discontinuity Gait Description Path Description Mild/moderate deviation Trunk Description Marked sway or uses aide Walking Stance Heels apart Scoring and Interpretation Tinetti Composite Score (points) 5 PT-OP-E Functional Tests Start: 09/24/22 09:30 Freq: Status: Active Protocol: Document 09/24/22 09:06 [facility] (Rec: 09/28/22 11:39 [facility] [id number]) Functional Tests 2 Minute Walk Test Distance 127 Device Used 4WW PT-OP-G Mobility & Gait Start: 09/24/22 09:30 Freq: Status: Active Protocol: Document 09/24/22 09:06 [facility] (Rec: 09/28/22 11:39 [facility] [id number]) OP Mobility Evaluation Bed Mobility Supine to and from Sit indep Transfers Bed to Chair Transfers indep Car Transfers assisted Floor Transfers not performed OP Gait Assessment Gait Gait Assistance Required: Minimum Assistance Distance (Feet) 127 Assistive Devices Assistive Device Gait Belt,Front Wheeled Walker Orthotic/Prosthetic Devices or Brace: No Gait Deviations General Gait Pattern Decreased Stride Length, Decreased Feet Clearance, Flexed Trunk Factors Limiting Gait Function Factors Limiting Gait Function Abnormal Tonal Influences, Decreased Activity Tolerance, Decreased Strength,Pain Stair Climbing Evaluation Comments Stair Climbing Comments unable PT-OP-H Neuro Start: 09/24/22 09:30 Freq: Status: Active Protocol: Document 09/24/22 09:06 [facility] (Rec: 09/28/22 11:39 [facility] [id number]) Sensation Evaluation Gross Sensation Gross Sensation Left LE Impaired,Right LE Impaired,Trunk Impaired PT-OP-J Posture/Palpation/Skin Start: 09/24/22 09:30 Freq: Status: Active Protocol: Document 09/24/22 09:06 [facility] (Rec: 09/28/22 11:39 [facility] [id number]) Posture Evaluation Position Sitting Head/C-Spine Posture Forward Head Shoulder Posture (L) Rounded,(R) Rounded Shoulder Subluxation Position (L) Anterior,(R) Anterior Scapula Posture (L) Protracted,(R) Protracted Arm Posture (L) Internally Rotated,(R) Internally Rotated PT-OP-K Range of Motion Start: 09/24/22 09:30 Freq: Status: Active Protocol: Document 09/24/22 09:06 [facility] (Rec: 09/28/22 11:39 [facility] [id number]) Hip Goniometric Range of Motion Hip chelle Straight Leg Raise 145 Hip ROM Limitations Hip ROM Limitations Soft Tissue Tightness Ankle and Foot Goniometric Range of Motion Ankle and Foot chelle Dorsiflexion with Knee Flexed 0 Ankle and Foot ROM Limitations ROM Limitations Soft Tissue Tightness PT-OP-M Strength Start: 09/24/22 09:30 Freq: Status: Active Protocol: Document 09/24/22 09:31 [facility] (Rec: 09/24/22 10:22 [facility] [id number]) Trunk Strength Trunk Manual Muscle Testing Flexion 3- Fair- Extension 2+ Poor+ Rotation Left 3- Fair- Rotation Right 3- Fair- Lateral Flexion Left 3- Fair- Lateral Flexion Right 3- Fair- Scapula Strength Scapula Manual Muscle Testing chelle Elevation (C4) 4+ Good+ Adduction 3+ Fair+ Abduction 3 Fair Depression 3+ Fair+ Shoulder Strength Shoulder Manual Muscle Testing Left Flexion 4 Good Extension 4 Good Abduction (C5) 4 Good Adduction 4 Good External Rotation 4 Good Internal Rotation 4 Good Horizontal Abduction 4 Good Horizontal Adduction 4 Good Right Flexion 4 Good Extension 4 Good Abduction (C5) 4 Good Adduction 4 Good External Rotation 4 Good Internal Rotation 4 Good Horizontal Abduction 4 Good Horizontal Adduction 4 Good Elbow/Forearm Strength Elbow and Forearm Manual Muscle Testing Left Flexion (C6) 4 Good Extension (C7) 4 Good Right Comments pain with resisted flex,ab,ER Hip Strength Hip Manual Muscle Testing Left Flexion (L2) 4- Good- Abduction 3- Fair- Adduction 3+ Fair+ Right Flexion (L2) 4- Good- Abduction 2+ Poor+ Adduction 3+ Fair+ Knee Strength Knee Manual Muscle Testing Left Flexion (S2) 4 Good Extension (L3) 4 Good Right Flexion (S2) 4- Good- Extension (L3) 4- Good- Ankle/Foot Strength Ankle and Foot Manual Muscle Testing Left Dorsiflexion (L4) 3+ Fair+ Plantarflexion (S1) 3+ Fair+ Right Dorsiflexion (L4) 3+ Fair+ Plantarflexion (S1) 3+ Fair+ PT-OP-Q Treatments Start: 09/24/22 09:30 Freq: Status: Active Protocol: Document 12/14/23 13:00 SP (Rec: 12/14/23 13:49 SP [id number]) Cardio Equipment Recumbent Stepper (Sci-Fit) Duration (Minutes) 5 Resistance 1 Seat Position 13 Other 0.52, 52 RPMs, resistance medium Therapeutic Exercises Supine Exercises oblique Supine Exercise Name elbow to opp knee Resistance 2 # leg wt Reps/Minutes 10 alternating x2 sets Comments cued count out loud for breath - improved lift with reps figure 4 Resistance 2# leg wt Reps/Minutes x10 piriformis stretch Side bilateral Resistance manual Reps/Minutes 60 Comments cued for sequencing HC stretch Supine Exercise Name HS stretch Side bilateral Equipment Used supine manual Reps/Minutes 60 Comments good feedback stretch LTR Supine Exercise Name AROM, then kamran Side bilateral Resistance AROM Reps/Minutes x10 Comments cued slower pacing rotation hip flexor stretch Side bilateral Resistance mat table BLEs off edge ( perpendicular to EOtable) Reps/Minutes 60 Comments good feedback hip flexor stretch Prone Exercises elbow plank Prone Exercise Name trialed inPT Reps/Minutes 7 sec, 3 sec Comments cued TA for back support prone on elbows Reps/Minutes 10x2 sec hold Comments cued TA inhibit LS pressure. Sitting Exercises elbow to opp knee Reps/Minutes 10x may Resistance 2# Equipment Used black mat & yellow disc Reps/Minutes 10 reps LAQ Side bilateral Resistance 2# Reps/Minutes 8x chelle resisted trunk rotation Sitting Exercise Name rotation Side bilateral Resistance TB #2 therapist anchor Equipment Used sitting on [employer]ad[employer] (yellow) Reps/Minutes 15, 12 reps Comments good oblique engagement, cued midline core Gait Training Gait Activity FWW Level of Assistance CGA to mod assist balance Surface firm Distance/Duration 25 ft Comments stopped due to instability right LE, UE fatigue PT-OP-T Assessment and Plan Start: 09/24/22 09:30 Freq: Status: Active Protocol: Document 12/14/23 13:00 SP (Rec: 12/14/23 13:49 SP [id number]) Physical Therapy Assessment Goals Three Impairment pain right shoulder and low back Impairment diffiuculty performing ADL's due to pain and pain in right shoulder limits gait due to heavy use of walker Custodial Goal (LTG) Patient to report at least 50% decrease in pain with all usual activities and be independent with HEP for purposes of core stab, shoulder strengthening and stab 12/24/22: patient reported decrease in shoulder pain during vacation with not having to wheel herself (used power w/c), but has increased since starting to wheel again. Dec c/o LBP. Goal progress 02/18/23: reports decrease in shoulder pain to 0-4/10. Hadn 't been having back pain until exacerbation 2 weeks ago which appears QL. 05/18/23: goal progress with both shoulder and back pain 08/09/23: good goal progress, mostly met. 11/10/23: spasming in mucles above hips 06/29, lasts 1-2 secs, no pain in shoulders LTG Duration 02/10/24 One Impairment gait dysfunction Impairment 2 min walk test 127 ft, not able to tolerate 6 min walk test due to fatigue UE's from supporting body on walker and LE fatigue requiring 2 brief standing breaks, needing to stop at 2 min Short Term Goal (STG) Improve 2 min walk test to at least 150 ft as measure of improved functional gait 12/24/22: only able to ambulate 75 ft today and experienced giving way of left knee residential through gait requiring mod assist to correct. 02/18/23: 2 min walk test 68 ft today, limited due to back pain and left leg giving way requiring her to sit 05/18/23: goal abandoned. See LTG STG Duration goal abandoned. Custodial Goal (LTG) Patient able to tolerate 6 min walk test with gait distance of at least 300 ft as measure of improved functional gait 05/18/23: goal modification due to inability to reach this goal: New goal: patient able to tolerate 3 min walk test and walk a distance of at least 150 feet. (current max is 109 ft) 08/09/23: patient has been more limited in her walking tolerance due to increased weakness in her legs related to her MS 11/10/23: distance for walking remains limited due to weakness in LE's, fatigue from UE's holding her up, right knee pain today. LTG Duration 02/10/24 Four Impairment weakness Impairment 5x sit to stand test 15 sec with moderate use of hands moderate core muscle weakness with less than anti-gravity strength Short Term Goal (STG) Patient to be independent and compliant with updated HEP for purposes of LE and trunk muscle strengthening 12/24/22: patient was on vacation 1 month, not as compliant, noting dec functional strength today. HEP has been updated. Goal progress 02/18/23: patient compliant with HEP, ongoing progression STG Duration goal met Custodial Goal (LTG) Patient able to perform 5x sit to stand test in 10 sec as measure of improved functional LE strength and demonstrate 1 grade improvement in trunk muscle strength for improved safety with ADL performance 02/18/23: 10 sec today with 5x sit to stand. Noting improved functional core strength, good goal progress 05/18/23: not able to retest due to patient activity intolerance today due to esophageal stenosis 08/09/23: improved ability since last retested, has had surgery for espophageal stenosis. 13 seconds today vs unable to perform last session 11/10/23: 14.1 first trial 10.9 sec second trial Hip flex 3+/5R 4-/5 , ab2-/5 R 2+-/5 ad 2+/5R 3+/5L , ext Knee ext 4-/5R, 4+/5L , flex 4 -/5 R, 4+/5 L Ankle df 4-/5R, 4/5 pf 4/5R, 4+/5L, inv 3+/5R, 4/5 L, ev 3+ /5R 4+/5 L LTG Duration 02/10/24 Two Impairment balance dysfunction Impairment Tinetti gait and balance assessment 11/16 indicating patient at high risk for falls static standing 44 sec without holding on Short Term Goal (STG) Patient to be independent and compliant with gait and balance HEP 12/24/22: as above not as compliant to HEP and not ambulating while on vacation 02/18/23: 41 sec standing, limited by back pain 05/18/23: unable to retest due to esophageal stenosis with dec activity tolerance today 08/09/23: has had more limited standing tolerance due to weakness from MS, 16 sec today STG Duration 12/21/23 [employer] Program Internship Goal (LTG) Improve Tinetti gait and balance assessment score to moderate fall risk range to improve safety in the home and community improve static standing balance to at least 60 sec 11/10/23: 44 sec, improved over last testing LTG Duration 02/10/24 Assessment Summary Assessment Pt decreased endurance in gait today 25 ft before LEs unsteady. TOlerated increased reps and sets against resisted ther ex today uneven seated surface with reports core engagement. Pt improved distnace bike 0.03 miles with low resistance of 1 but feels like expending medium effort. Physical Therapy Plan Frequency and Duration Frequency of Treatment 1x/Week Duration of treatment (weeks) 12 Plan of Care Start Date 11/10/23 Plan of Care End Date 02/10/24 Therapeutic Interventions Therapeutic Interventions Balance Training,Home Exercise Program,Manual Therapy, Neuromuscular Re-education, Patient/Caregiver Education, Self-Care/Home Management,Soft Tissue Mobilization,Taping, Therapeutic Activities, Therapeutic Exercises Modalities Cold Pack/Ice Massage,Hot Packs Next Visit Focus/Plan Next Note Type Treatment Note Next Visit Plan COntinue per POC: Gait training, neuro re-ed in sitting and standing, full body strengthening as tolerated.
--- NOTE | 2023-12-21 13:45 | PT.OTN ---
Current Diagnoses Multiple sclerosis (12/21/23) Physical Therapy Treatment Note PT-OP-A Visit Information Start: 09/24/22 09:30 Freq: Status: Active Protocol: Document 12/21/23 13:01 SP (Rec: 12/21/23 13:50 SP [id number]) Out-Patient Physical Therapy Visit Information Visit Information Visit Type Treatment Note Visit Start Time 13:01 Visit Stop Time 13:45 Visit Number 54 total appts since initial evel 09/24/2022 (?) Number of PIPING DESIGNER Visits 2 Evaluation Information Evaluation Date 09/24/22 Precautions Precautions MS, don't overfatigue, esophageal stenosis PT-OP-B Current Condition Start: 09/24/22 09:30 Freq: Status: Active Protocol: Document 12/07/23 13:44 SAK (Rec: 12/07/23 14:40 SAK [id number]) Current Condition History of Current Condition Onset Date March 2019 Current Complaints weakness due to MS, right shoulder pain, LBP History of Current Condition history MS with worsening weakness, as well as right shoulder pain (patient right handed). Patient has caregiver who assists her primarily with household tasks, HEP, walking. She uses a 4WW to walk short diestances (approx 30 feet) in the home, manual w /c for community mobility. No recent falls, but has history of falls. Reports was evaluated for power wheelchair recently but was denied. C/o right shoulder pain and tightness especially with reaching and propelling manual w/c. Well known to this PT for both land and aquatic- based PT. 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 PT-OP-D Balance Start: 09/24/22 09:30 Freq: Status: Active Protocol: Document 09/24/22 09:06 SAK (Rec: 09/28/22 11:39 SAK [id number]) Tinetti Balance Assessment Sitting Balance Sitting Balance Steady, safe Standing Balance Immediate Standing Balance Steady with support Turning Step Pattern Turning 360 Degrees Discontinuous steps Sitting Down Sitting Down Uses arms or unsteady Gait and Step Initiation of Gait Hesitancy, mult. attempts Right Foot Step Length Does not pass stance ft. Right Foot Step Height Does not clear floor Left Foot Step Length Does not pass stance foot Left Foot Step Height Does not clear floor Step Description Step Symmetry Step length appears equal Step Continuity Stopping or discontinuity Gait Description Path Description Mild/moderate deviation Trunk Description Marked sway or uses aide Walking Stance Heels apart Scoring and Interpretation Tinetti Composite Score (points) 5 PT-OP-E Functional Tests Start: 09/24/22 09:30 Freq: Status: Active Protocol: Document 09/24/22 09:06 [facility] (Rec: 09/28/22 11:39 [facility] [id number]) Functional Tests 2 Minute Walk Test Distance 127 Device Used 4WW PT-OP-G Mobility & Gait Start: 09/24/22 09:30 Freq: Status: Active Protocol: Document 09/24/22 09:06 [facility] (Rec: 09/28/22 11:39 [facility] [id number]) OP Mobility Evaluation Bed Mobility Supine to and from Sit indep Transfers Bed to Chair Transfers indep Car Transfers assisted Floor Transfers not performed OP Gait Assessment Gait Gait Assistance Required: Minimum Assistance Distance (Feet) 127 Assistive Devices Assistive Device Gait Belt,Front Wheeled Walker Orthotic/Prosthetic Devices or Brace: No Gait Deviations General Gait Pattern Decreased Stride Length, Decreased Feet Clearance, Flexed Trunk Factors Limiting Gait Function Factors Limiting Gait Function Abnormal Tonal Influences, Decreased Activity Tolerance, Decreased Strength,Pain Stair Climbing Evaluation Comments Stair Climbing Comments unable PT-OP-H Neuro Start: 09/24/22 09:30 Freq: Status: Active Protocol: Document 09/24/22 09:06 [facility] (Rec: 09/28/22 11:39 [facility] [id number]) Sensation Evaluation Gross Sensation Gross Sensation Left LE Impaired,Right LE Impaired,Trunk Impaired PT-OP-J Posture/Palpation/Skin Start: 09/24/22 09:30 Freq: Status: Active Protocol: Document 09/24/22 09:06 [facility] (Rec: 09/28/22 11:39 [facility] [id number]) Posture Evaluation Position Sitting Head/C-Spine Posture Forward Head Shoulder Posture (L) Rounded,(R) Rounded Shoulder Subluxation Position (L) Anterior,(R) Anterior Scapula Posture (L) Protracted,(R) Protracted Arm Posture (L) Internally Rotated,(R) Internally Rotated PT-OP-K Range of Motion Start: 09/24/22 09:30 Freq: Status: Active Protocol: Document 09/24/22 09:06 [facility] (Rec: 09/28/22 11:39 [facility] [id number]) Hip Goniometric Range of Motion Hip chelle Straight Leg Raise 145 Hip ROM Limitations Hip ROM Limitations Soft Tissue Tightness Ankle and Foot Goniometric Range of Motion Ankle and Foot chelle Dorsiflexion with Knee Flexed 0 Ankle and Foot ROM Limitations ROM Limitations Soft Tissue Tightness PT-OP-M Strength Start: 09/24/22 09:30 Freq: Status: Active Protocol: Document 09/24/22 09:31 [facility] (Rec: 09/24/22 10:22 [facility] [id number]) Trunk Strength Trunk Manual Muscle Testing Flexion 3- Fair- Extension 2+ Poor+ Rotation Left 3- Fair- Rotation Right 3- Fair- Lateral Flexion Left 3- Fair- Lateral Flexion Right 3- Fair- Scapula Strength Scapula Manual Muscle Testing chelle Elevation (C4) 4+ Good+ Adduction 3+ Fair+ Abduction 3 Fair Depression 3+ Fair+ Shoulder Strength Shoulder Manual Muscle Testing Left Flexion 4 Good Extension 4 Good Abduction (C5) 4 Good Adduction 4 Good External Rotation 4 Good Internal Rotation 4 Good Horizontal Abduction 4 Good Horizontal Adduction 4 Good Right Flexion 4 Good Extension 4 Good Abduction (C5) 4 Good Adduction 4 Good External Rotation 4 Good Internal Rotation 4 Good Horizontal Abduction 4 Good Horizontal Adduction 4 Good Elbow/Forearm Strength Elbow and Forearm Manual Muscle Testing Left Flexion (C6) 4 Good Extension (C7) 4 Good Right Comments pain with resisted flex,ab,ER Hip Strength Hip Manual Muscle Testing Left Flexion (L2) 4- Good- Abduction 3- Fair- Adduction 3+ Fair+ Right Flexion (L2) 4- Good- Abduction 2+ Poor+ Adduction 3+ Fair+ Knee Strength Knee Manual Muscle Testing Left Flexion (S2) 4 Good Extension (L3) 4 Good Right Flexion (S2) 4- Good- Extension (L3) 4- Good- Ankle/Foot Strength Ankle and Foot Manual Muscle Testing Left Dorsiflexion (L4) 3+ Fair+ Plantarflexion (S1) 3+ Fair+ Right Dorsiflexion (L4) 3+ Fair+ Plantarflexion (S1) 3+ Fair+ PT-OP-Q Treatments Start: 09/24/22 09:30 Freq: Status: Active Protocol: Document 12/21/23 13:01 SP (Rec: 12/21/23 13:50 SP [id number]) Cardio Equipment Recumbent Stepper (Sci-Fit) Duration (Minutes) 6 Resistance 1 Seat Position 13 Other 0.60, 52 RPMs, resistance medium Therapeutic Exercises Supine Exercises oblique Supine Exercise Name elbow to opp knee Resistance 2 # leg wt Reps/Minutes 10 alternating x2 sets Comments cued count out loud for breath - improved lift with reps bridge Resistance AROM Reps/Minutes 5 reps piriformis stretch Side bilateral Resistance manual Reps/Minutes 60 Comments cued for sequencing ROM supported- good stretch LTR Side bilateral Resistance TB #2 therapist above knees Reps/Minutes x10 Comments cued slower pacing rotation hip flexor stretch Supine Exercise Name self application Side bilateral Resistance mat table BLEs off edge ( perpendicular to EOtable) Reps/Minutes 60 Comments good feedback hip flexor stretch HS stretch Side bilateral Resistance supine manual Reps/Minutes 60 Comments good feedback stretch Prone Exercises elbow plank Prone Exercise Name inPT Reps/Minutes 11 sec, 8 sec, 11sec Comments cued TA for back support, head up hip ext Side bilateral Resistance AROM Equipment Used pillows under anterior shoulders Reps/Minutes 5 x2 sets Comments cues for core& glut engagement - 3 reps R toe touch table Sitting Exercises resisted trunk rotation Sitting Exercise Name rotation Side bilateral Resistance TB #2 therapist anchor (#3 next tx) Equipment Used sitting on Dynadisc (yellow) Reps/Minutes 15, 12 reps Comments good oblique engagement, cued midline core Gait Training Gait Activity //bars Description fwd, bck Device Used bars Level of Assistance CGA Distance/Duration 10 ft x 2 lengths each Treatment Focus TKE, posture, safety FWW Level of Assistance CGA to mod assist balance Surface firm Distance/Duration 40ft, 17ft Comments stopped due to instability right LE, UE fatigue Manual Therapy Treatment Consent Patient gave verbal consent for manual Yes treatment Manual Techniques Assisted stretching Type B HS & piriformis Comments manual PT-OP-T Assessment and Plan Start: 09/24/22 09:30 Freq: Status: Active Protocol: Document 12/21/23 13:01 SP (Rec: 12/21/23 13:50 SP [id number]) Physical Therapy Assessment Goals Three Impairment pain right shoulder and low back Impairment diffiuculty performing ADL's due to pain and pain in right shoulder limits gait due to heavy use of walker Biometrics Technician Goal (LTG) Patient to report at least 50% decrease in pain with all usual activities and be independent with HEP for purposes of core stab, shoulder strengthening and stab 12/24/22: patient reported decrease in shoulder pain during vacation with not having to wheel herself (used power w/c), but has increased since starting to wheel again. Dec c/o LBP. Goal progress 02/18/23: reports decrease in shoulder pain to 0-4/10. Hadn 't been having back pain until exacerbation 2 weeks ago which appears QL. 05/18/23: goal progress with both shoulder and back pain 08/09/23: good goal progress, mostly met. 11/10/23: spasming in mucles above hips 06/29, lasts 1-2 secs, no pain in shoulders LTG Duration 02/10/24 One Impairment gait dysfunction Impairment 2 min walk test 127 ft, not able to tolerate 6 min walk test due to fatigue UE's from supporting body on walker and LE fatigue requiring 2 brief standing breaks, needing to stop at 2 min Short Term Goal (STG) Improve 2 min walk test to at least 150 ft as measure of improved functional gait 12/24/22: only able to ambulate 75 ft today and experienced giving way of left knee fci through gait requiring mod assist to correct. 02/18/23: 2 min walk test 68 ft today, limited due to back pain and left leg giving way requiring her to sit 05/18/23: goal abandoned. See LTG STG Duration goal abandoned. Snf Goal (LTG) Patient able to tolerate 6 min walk test with gait distance of at least 300 ft as measure of improved functional gait 05/18/23: goal modification due to inability to reach this goal: New goal: patient able to tolerate 3 min walk test and walk a distance of at least 150 feet. (current max is 109 ft) 08/09/23: patient has been more limited in her walking tolerance due to increased weakness in her legs related to her MS 11/10/23: distance for walking remains limited due to weakness in LE's, fatigue from UE's holding her up, right knee pain today. LTG Duration 02/10/24 Four Impairment weakness Impairment 5x sit to stand test 15 sec with moderate use of hands moderate core muscle weakness with less than anti-gravity strength Short Term Goal (STG) Patient to be independent and compliant with updated HEP for purposes of LE and trunk muscle strengthening 12/24/22: patient was on vacation 1 month, not as compliant, noting dec functional strength today. HEP has been updated. Goal progress 02/18/23: patient compliant with HEP, ongoing progression STG Duration goal met Snf Goal (LTG) Patient able to perform 5x sit to stand test in 10 sec as measure of improved functional LE strength and demonstrate 1 grade improvement in trunk muscle strength for improved safety with ADL performance 02/18/23: 10 sec today with 5x sit to stand. Noting improved functional core strength, good goal progress 05/18/23: not able to retest due to patient activity intolerance today due to esophageal stenosis 08/09/23: improved ability since last retested, has had surgery for espophageal stenosis. 13 seconds today vs unable to perform last session 11/10/23: 14.1 first trial 10.9 sec second trial Hip flex 3+/5R 4-/5 , ab2-/5 R 2+-/5 ad 2+/5R 3+/5L , ext Knee ext 4-/5R, 4+/5L , flex 4 -/5 R, 4+/5 L Ankle df 4-/5R, 4/5 pf 4/5R, 4+/5L, inv 3+/5R, 4/5 L, ev 3+ /5R 4+/5 L LTG Duration 02/10/24 Two Impairment balance dysfunction Impairment Tinetti gait and balance assessment 11/16 indicating patient at high risk for falls static standing 44 sec without holding on Short Term Goal (STG) Patient to be independent and compliant with gait and balance HEP 12/24/22: as above not as compliant to HEP and not ambulating while on vacation 02/18/23: 41 sec standing, limited by back pain 05/18/23: unable to retest due to esophageal stenosis with dec activity tolerance today 08/09/23: has had more limited standing tolerance due to weakness from MS, 16 sec today STG Duration 12/21/23 Biometrics Technician Goal (LTG) Improve Tinetti gait and balance assessment score to moderate fall risk range to improve safety in the home and community improve static standing balance to at least 60 sec 11/10/23: 44 sec, improved over last testing LTG Duration 02/10/24 Assessment Summary Assessment Pt improved endurance gait with brief seated rest between distance. She tolerated added resistance to oblique LTR and able to complete increase reps and sets of prone plank and hip extension to support glut and core activation for support standing activities Physical Therapy Plan Frequency and Duration Frequency of Treatment 1x/Week Duration of treatment (weeks) 12 Plan of Care Start Date 11/10/23 Plan of Care End Date 02/10/24 Therapeutic Interventions Therapeutic Interventions Balance Training,Home Exercise Program,Manual Therapy, Neuromuscular Re-education, Patient/Caregiver Education, Self-Care/Home Management,Soft Tissue Mobilization,Taping, Therapeutic Activities, Therapeutic Exercises Modalities Cold Pack/Ice Massage,Hot Packs Next Visit Focus/Plan Next Note Type Treatment Note Next Visit Plan COntinue per POC: Gait training, neuro re-ed in sitting and standing, full body strengthening as tolerated.
--- NOTE | 2024-01-05 14:49 | PT.OTN ---
Current Diagnoses Multiple sclerosis (01/05/24) Physical Therapy Treatment Note PT-OP-A Visit Information Start: 09/24/22 09:30 Freq: Status: Active Protocol: Document 01/05/24 13:49 SAK (Rec: 01/05/24 14:48 [facility] [id number]) Out-Patient Physical Therapy Visit Information Visit Information Visit Type Treatment Note Visit Start Time 13:45 Visit Stop Time 14:30 Visit Number 55 total appts since initial evel 09/24/2022 (?) Number of COMPUTER TECHNOLOGY INSTRUCTOR Visits 2 Evaluation Information Evaluation Date 09/24/22 Precautions Precautions MS, don't overfatigue, esophageal stenosis PT-OP-B Current Condition Start: 09/24/22 09:30 Freq: Status: Active Protocol: Document 12/07/23 13:44 SAK (Rec: 12/07/23 14:40 [facility] [id number]) Current Condition History of Current Condition Onset Date March 2019 Current Complaints weakness due to MS, right shoulder pain, LBP History of Current Condition history MS with worsening weakness, as well as right shoulder pain (patient right handed). Patient has caregiver who assists her primarily with household tasks, HEP, walking. She uses a 4WW to walk short diestances (approx 30 feet) in the home, manual w /c for community mobility. No recent falls, but has history of falls. Reports was evaluated for power wheelchair recently but was denied. C/o right shoulder pain and tightness especially with reaching and propelling manual w/c. Well known to this PT for both land and aquatic- based PT. Prior Treatments and Tests prior PT; land and aquatic Future Testing and Treatments Planned nothing planned yet PT-OP-C Subjective Start: 09/24/22 09:30 Freq: Status: Active Protocol: Document 01/05/24 13:49 SAK (Rec: 01/05/24 14:48 [facility] [id number]) OP-PT Subjective Patient Comments Patient Comments Had Covid, has now tested negative. Still feeling tired . Right knee better though didn't stand or walk last week due to Covid. Right shoulder not happy due to overdoing with pushing wheelchair. PT-OP-D Balance Start: 09/24/22 09:30 Freq: Status: Active Protocol: Document 09/24/22 09:06 SAK (Rec: 09/28/22 11:39 [facility] [id number]) Tinetti Balance Assessment Sitting Balance Sitting Balance Steady, safe Standing Balance Immediate Standing Balance Steady with support Turning Step Pattern Turning 360 Degrees Discontinuous steps Sitting Down Sitting Down Uses arms or unsteady Gait and Step Initiation of Gait Hesitancy, mult. attempts Right Foot Step Length Does not pass stance ft. Right Foot Step Height Does not clear floor Left Foot Step Length Does not pass stance foot Left Foot Step Height Does not clear floor Step Description Step Symmetry Step length appears equal Step Continuity Stopping or discontinuity Gait Description Path Description Mild/moderate deviation Trunk Description Marked sway or uses aide Walking Stance Heels apart Scoring and Interpretation Tinetti Composite Score (points) 5 PT-OP-E Functional Tests Start: 09/24/22 09:30 Freq: Status: Active Protocol: Document 09/24/22 09:06 [facility] (Rec: 09/28/22 11:39 [facility] [id number]) Functional Tests 2 Minute Walk Test Distance 127 Device Used 4WW PT-OP-G Mobility & Gait Start: 09/24/22 09:30 Freq: Status: Active Protocol: Document 09/24/22 09:06 [facility] (Rec: 09/28/22 11:39 [facility] [id number]) OP Mobility Evaluation Bed Mobility Supine to and from Sit indep Transfers Bed to Chair Transfers indep Car Transfers assisted Floor Transfers not performed OP Gait Assessment Gait Gait Assistance Required: Minimum Assistance Distance (Feet) 127 Assistive Devices Assistive Device Gait Belt,Front Wheeled Walker Orthotic/Prosthetic Devices or Brace: No Gait Deviations General Gait Pattern Decreased Stride Length, Decreased Feet Clearance, Flexed Trunk Factors Limiting Gait Function Factors Limiting Gait Function Abnormal Tonal Influences, Decreased Activity Tolerance, Decreased Strength,Pain Stair Climbing Evaluation Comments Stair Climbing Comments unable PT-OP-H Neuro Start: 09/24/22 09:30 Freq: Status: Active Protocol: Document 09/24/22 09:06 [facility] (Rec: 09/28/22 11:39 [facility] [id number]) Sensation Evaluation Gross Sensation Gross Sensation Left LE Impaired,Right LE Impaired,Trunk Impaired PT-OP-J Posture/Palpation/Skin Start: 09/24/22 09:30 Freq: Status: Active Protocol: Document 09/24/22 09:06 [facility] (Rec: 09/28/22 11:39 [facility] [id number]) Posture Evaluation Position Sitting Head/C-Spine Posture Forward Head Shoulder Posture (L) Rounded,(R) Rounded Shoulder Subluxation Position (L) Anterior,(R) Anterior Scapula Posture (L) Protracted,(R) Protracted Arm Posture (L) Internally Rotated,(R) Internally Rotated PT-OP-K Range of Motion Start: 09/24/22 09:30 Freq: Status: Active Protocol: Document 09/24/22 09:06 [facility] (Rec: 09/28/22 11:39 [facility] [id number]) Hip Goniometric Range of Motion Hip chelle Straight Leg Raise 145 Hip ROM Limitations Hip ROM Limitations Soft Tissue Tightness Ankle and Foot Goniometric Range of Motion Ankle and Foot chelle Dorsiflexion with Knee Flexed 0 Ankle and Foot ROM Limitations ROM Limitations Soft Tissue Tightness PT-OP-M Strength Start: 09/24/22 09:30 Freq: Status: Active Protocol: Document 09/24/22 09:31 [facility] (Rec: 09/24/22 10:22 [facility] [id number]) Trunk Strength Trunk Manual Muscle Testing Flexion 3- Fair- Extension 2+ Poor+ Rotation Left 3- Fair- Rotation Right 3- Fair- Lateral Flexion Left 3- Fair- Lateral Flexion Right 3- Fair- Scapula Strength Scapula Manual Muscle Testing chelle Elevation (C4) 4+ Good+ Adduction 3+ Fair+ Abduction 3 Fair Depression 3+ Fair+ Shoulder Strength Shoulder Manual Muscle Testing Left Flexion 4 Good Extension 4 Good Abduction (C5) 4 Good Adduction 4 Good External Rotation 4 Good Internal Rotation 4 Good Horizontal Abduction 4 Good Horizontal Adduction 4 Good Right Flexion 4 Good Extension 4 Good Abduction (C5) 4 Good Adduction 4 Good External Rotation 4 Good Internal Rotation 4 Good Horizontal Abduction 4 Good Horizontal Adduction 4 Good Elbow/Forearm Strength Elbow and Forearm Manual Muscle Testing Left Flexion (C6) 4 Good Extension (C7) 4 Good Right Comments pain with resisted flex,ab,ER Hip Strength Hip Manual Muscle Testing Left Flexion (L2) 4- Good- Abduction 3- Fair- Adduction 3+ Fair+ Right Flexion (L2) 4- Good- Abduction 2+ Poor+ Adduction 3+ Fair+ Knee Strength Knee Manual Muscle Testing Left Flexion (S2) 4 Good Extension (L3) 4 Good Right Flexion (S2) 4- Good- Extension (L3) 4- Good- Ankle/Foot Strength Ankle and Foot Manual Muscle Testing Left Dorsiflexion (L4) 3+ Fair+ Plantarflexion (S1) 3+ Fair+ Right Dorsiflexion (L4) 3+ Fair+ Plantarflexion (S1) 3+ Fair+ PT-OP-Q Treatments Start: 09/24/22 09:30 Freq: Status: Active Protocol: Document 01/05/24 13:49 [facility] (Rec: 01/05/24 14:48 [facility] [id number]) Therapeutic Exercises Supine Exercises posture press Supine Exercise Name hor ab with scap squeeze Reps/Minutes 10x5 IT band stretch Reps/Minutes 2x30 Comments manual piriformis stretch Side bilateral Resistance manual Reps/Minutes 60 Comments cued for sequencing ROM supported- good stretch hip flexor stretch Supine Exercise Name self application Side bilateral Resistance mat table BLEs off edge ( perpendicular to EOtable) Reps/Minutes 60 Comments good feedback hip flexor stretch SKTC Supine Exercise Name SKTC and ER Side bilateral Reps/Minutes 2x30 Comments manual HS stretch Side bilateral Resistance supine manual Reps/Minutes 60 Comments good feedback stretch Prone Exercises elbow plank Prone Exercise Name inPT Reps/Minutes 5sec x 5 Comments cued TA for back support, head up hip ext Side bilateral Resistance AROM Equipment Used pillows under anterior shoulders Reps/Minutes 5 x1 sets Comments cues for core& glut engagement - 3 reps R toe touch table Sitting Exercises reverse crunch Equipment Used Dynadisc Reps/Minutes 5x march Resistance 2# Equipment Used black mat & yellow disc Reps/Minutes 10 reps rows, shoulder ext Resistance TB #2 therapist anchor Equipment Used seated on Dynadisc Reps/Minutes x20 Comments Good effort core challenge stability, unable disc under feet lean backs Equipment Used seated on dynadisc Reps/Minutes 10x LAQ Side bilateral Resistance 2# Reps/Minutes 8x chelle sit<> stands Reps/Minutes 5x Comments chelle UE use resisted trunk rotation Sitting Exercise Name rotation Side bilateral Resistance TB #2 therapist anchor (#3 next tx) Equipment Used sitting on Dynadisc (yellow) Reps/Minutes 15, 12 reps Comments good oblique engagement, cued midline core Gait Training Gait Activity FWW Level of Assistance CGA to mod assist balance Surface firm Distance/Duration 25 ft Comments stopped due to instability right LE, UE fatigue Manual Therapy Treatment Consent Patient gave verbal consent for manual Yes treatment Soft Tissue Mobilization right UT Mobilization Type Strumming,Sustained Pressure Intensity/Depth Moderate Body Position Sitting right rhomboids Mobilization Type Strumming,Sustained Pressure Intensity/Depth mod Body Position Sitting Manual Techniques Assisted stretching Type B HS & piriformis Comments manual PT-OP-T Assessment and Plan Start: 09/24/22 09:30 Freq: Status: Active Protocol: Document 01/05/24 13:49 [facility] (Rec: 01/05/24 14:48 [facility] [id number]) Physical Therapy Assessment Goals Three Impairment pain right shoulder and low back Impairment diffiuculty performing ADL's due to pain and pain in right shoulder limits gait due to heavy use of walker Beverage Server Goal (LTG) Patient to report at least 50% decrease in pain with all usual activities and be independent with HEP for purposes of core stab, shoulder strengthening and stab 12/24/22: patient reported decrease in shoulder pain during vacation with not having to wheel herself (used power w/c), but has increased since starting to wheel again. Dec c/o LBP. Goal progress 02/18/23: reports decrease in shoulder pain to 0-4/10. Hadn 't been having back pain until exacerbation 2 weeks ago which appears QL. 05/18/23: goal progress with both shoulder and back pain 08/09/23: good goal progress, mostly met. 11/10/23: spasming in mucles above hips 06/29, lasts 1-2 secs, no pain in shoulders LTG Duration 02/10/24 One Impairment gait dysfunction Impairment 2 min walk test 127 ft, not able to tolerate 6 min walk test due to fatigue UE's from supporting body on walker and LE fatigue requiring 2 brief standing breaks, needing to stop at 2 min Short Term Goal (STG) Improve 2 min walk test to at least 150 ft as measure of improved functional gait 12/24/22: only able to ambulate 75 ft today and experienced giving way of left knee long-term through gait requiring mod assist to correct. 02/18/23: 2 min walk test 68 ft today, limited due to back pain and left leg giving way requiring her to sit 05/18/23: goal abandoned. See LTG STG Duration goal abandoned. Shelter Goal (LTG) Patient able to tolerate 6 min walk test with gait distance of at least 300 ft as measure of improved functional gait 05/18/23: goal modification due to inability to reach this goal: New goal: patient able to tolerate 3 min walk test and walk a distance of at least 150 feet. (current max is 109 ft) 08/09/23: patient has been more limited in her walking tolerance due to increased weakness in her legs related to her MS 11/10/23: distance for walking remains limited due to weakness in LE's, fatigue from UE's holding her up, right knee pain today. LTG Duration 02/10/24 Four Impairment weakness Impairment 5x sit to stand test 15 sec with moderate use of hands moderate core muscle weakness with less than anti-gravity strength Short Term Goal (STG) Patient to be independent and compliant with updated HEP for purposes of LE and trunk muscle strengthening 12/24/22: patient was on vacation 1 month, not as compliant, noting dec functional strength today. HEP has been updated. Goal progress 02/18/23: patient compliant with HEP, ongoing progression STG Duration goal met Shelter Goal (LTG) Patient able to perform 5x sit to stand test in 10 sec as measure of improved functional LE strength and demonstrate 1 grade improvement in trunk muscle strength for improved safety with ADL performance 02/18/23: 10 sec today with 5x sit to stand. Noting improved functional core strength, good goal progress 05/18/23: not able to retest due to patient activity intolerance today due to esophageal stenosis 08/09/23: improved ability since last retested, has had surgery for espophageal stenosis. 13 seconds today vs unable to perform last session 11/10/23: 14.1 first trial 10.9 sec second trial Hip flex 3+/5R 4-/5 , ab2-/5 R 2+-/5 ad 2+/5R 3+/5L , ext Knee ext 4-/5R, 4+/5L , flex 4 -/5 R, 4+/5 L Ankle df 4-/5R, 4/5 pf 4/5R, 4+/5L, inv 3+/5R, 4/5 L, ev 3+ /5R 4+/5 L LTG Duration 02/10/24 Two Impairment balance dysfunction Impairment Tinetti gait and balance assessment 11/16 indicating patient at high risk for falls static standing 44 sec without holding on Short Term Goal (STG) Patient to be independent and compliant with gait and balance HEP 12/24/22: as above not as compliant to HEP and not ambulating while on vacation 02/18/23: 41 sec standing, limited by back pain 05/18/23: unable to retest due to esophageal stenosis with dec activity tolerance today 08/09/23: has had more limited standing tolerance due to weakness from MS, 16 sec today STG Duration 12/21/23 Shelter Goal (LTG) Improve Tinetti gait and balance assessment score to moderate fall risk range to improve safety in the home and community improve static standing balance to at least 60 sec 11/10/23: 44 sec, improved over last testing LTG Duration 02/10/24 Assessment Summary Assessment Patient more fatigued due to recent Covid, low tolerance for gait. Right shoulder pain from increased pushing of w/c including up an incline recently Physical Therapy Plan Frequency and Duration Frequency of Treatment 1x/Week Duration of treatment (weeks) 12 Plan of Care Start Date 11/10/23 Plan of Care End Date 02/10/24 Therapeutic Interventions Therapeutic Interventions Balance Training,Home Exercise Program,Manual Therapy, Neuromuscular Re-education, Patient/Caregiver Education, Self-Care/Home Management,Soft Tissue Mobilization,Taping, Therapeutic Activities, Therapeutic Exercises Modalities Cold Pack/Ice Massage,Hot Packs Next Visit Focus/Plan Next Note Type Treatment Note Next Visit Plan COntinue per POC: Gait training, neuro re-ed in sitting and standing, full body strengthening as tolerated all positions.
--- NOTE | 2024-01-12 14:25 | PT.OTN ---
Current Diagnoses Multiple sclerosis (01/12/24) Physical Therapy Treatment Note PT-OP-A Visit Information Start: 09/24/22 09:30 Freq: Status: Active Protocol: Document 01/12/24 13:50 SP (Rec: 01/12/24 14:33 SP [id number]) Out-Patient Physical Therapy Visit Information Visit Information Visit Type Treatment Note Visit Start Time 13:45 Visit Stop Time 14:25 Visit Number 56 total appts since initial evel 09/24/2022 (?) Number of RADIO RIGGER Visits 3 Evaluation Information Evaluation Date 09/24/22 Precautions Precautions MS, don't overfatigue, esophageal stenosis PT-OP-B Current Condition Start: 09/24/22 09:30 Freq: Status: Active Protocol: Document 12/07/23 13:44 SAK (Rec: 12/07/23 14:40 SAK [id number]) Current Condition History of Current Condition Onset Date March 2019 Current Complaints weakness due to MS, right shoulder pain, LBP History of Current Condition history MS with worsening weakness, as well as right shoulder pain (patient right handed). Patient has caregiver who assists her primarily with household tasks, HEP, walking. She uses a 4WW to walk short diestances (approx 30 feet) in the home, manual w /c for community mobility. No recent falls, but has history of falls. Reports was evaluated for power wheelchair recently but was denied. C/o right shoulder pain and tightness especially with reaching and propelling manual w/c. Well known to this PT for both land and aquatic- based PT. Prior Treatments and Tests prior PT; land and aquatic Future Testing and Treatments Planned nothing planned yet PT-OP-C Subjective Start: 09/24/22 09:30 Freq: Status: Active Protocol: Document 01/12/24 13:50 SP (Rec: 01/12/24 14:33 SP [id number]) OP-PT Subjective Patient Comments Patient Comments Pt reports BLEs tiring, short endurance standing, thinks COVID affected her strength. PT-OP-D Balance Start: 09/24/22 09:30 Freq: Status: Active Protocol: Document 09/24/22 09:06 SAK (Rec: 09/28/22 11:39 SAK [id number]) Tinetti Balance Assessment Sitting Balance Sitting Balance Steady, safe Standing Balance Immediate Standing Balance Steady with support Turning Step Pattern Turning 360 Degrees Discontinuous steps Sitting Down Sitting Down Uses arms or unsteady Gait and Step Initiation of Gait Hesitancy, mult. attempts Right Foot Step Length Does not pass stance ft. Right Foot Step Height Does not clear floor Left Foot Step Length Does not pass stance foot Left Foot Step Height Does not clear floor Step Description Step Symmetry Step length appears equal Step Continuity Stopping or discontinuity Gait Description Path Description Mild/moderate deviation Trunk Description Marked sway or uses aide Walking Stance Heels apart Scoring and Interpretation Tinetti Composite Score (points) 5 PT-OP-E Functional Tests Start: 09/24/22 09:30 Freq: Status: Active Protocol: Document 09/24/22 09:06 [facility] (Rec: 09/28/22 11:39 [facility] [id number]) Functional Tests 2 Minute Walk Test Distance 127 Device Used 4WW PT-OP-G Mobility & Gait Start: 09/24/22 09:30 Freq: Status: Active Protocol: Document 09/24/22 09:06 [facility] (Rec: 09/28/22 11:39 [facility] [id number]) OP Mobility Evaluation Bed Mobility Supine to and from Sit indep Transfers Bed to Chair Transfers indep Car Transfers assisted Floor Transfers not performed OP Gait Assessment Gait Gait Assistance Required: Minimum Assistance Distance (Feet) 127 Assistive Devices Assistive Device Gait Belt,Front Wheeled Walker Orthotic/Prosthetic Devices or Brace: No Gait Deviations General Gait Pattern Decreased Stride Length, Decreased Feet Clearance, Flexed Trunk Factors Limiting Gait Function Factors Limiting Gait Function Abnormal Tonal Influences, Decreased Activity Tolerance, Decreased Strength,Pain Stair Climbing Evaluation Comments Stair Climbing Comments unable PT-OP-H Neuro Start: 09/24/22 09:30 Freq: Status: Active Protocol: Document 09/24/22 09:06 [facility] (Rec: 09/28/22 11:39 [facility] [id number]) Sensation Evaluation Gross Sensation Gross Sensation Left LE Impaired,Right LE Impaired,Trunk Impaired PT-OP-J Posture/Palpation/Skin Start: 09/24/22 09:30 Freq: Status: Active Protocol: Document 09/24/22 09:06 [facility] (Rec: 09/28/22 11:39 [facility] [id number]) Posture Evaluation Position Sitting Head/C-Spine Posture Forward Head Shoulder Posture (L) Rounded,(R) Rounded Shoulder Subluxation Position (L) Anterior,(R) Anterior Scapula Posture (L) Protracted,(R) Protracted Arm Posture (L) Internally Rotated,(R) Internally Rotated PT-OP-K Range of Motion Start: 09/24/22 09:30 Freq: Status: Active Protocol: Document 09/24/22 09:06 [facility] (Rec: 09/28/22 11:39 [facility] [id number]) Hip Goniometric Range of Motion Hip chelle Straight Leg Raise 145 Hip ROM Limitations Hip ROM Limitations Soft Tissue Tightness Ankle and Foot Goniometric Range of Motion Ankle and Foot chelle Dorsiflexion with Knee Flexed 0 Ankle and Foot ROM Limitations ROM Limitations Soft Tissue Tightness PT-OP-M Strength Start: 09/24/22 09:30 Freq: Status: Active Protocol: Document 09/24/22 09:31 [facility] (Rec: 09/24/22 10:22 [facility] [id number]) Trunk Strength Trunk Manual Muscle Testing Flexion 3- Fair- Extension 2+ Poor+ Rotation Left 3- Fair- Rotation Right 3- Fair- Lateral Flexion Left 3- Fair- Lateral Flexion Right 3- Fair- Scapula Strength Scapula Manual Muscle Testing chelle Elevation (C4) 4+ Good+ Adduction 3+ Fair+ Abduction 3 Fair Depression 3+ Fair+ Shoulder Strength Shoulder Manual Muscle Testing Left Flexion 4 Good Extension 4 Good Abduction (C5) 4 Good Adduction 4 Good External Rotation 4 Good Internal Rotation 4 Good Horizontal Abduction 4 Good Horizontal Adduction 4 Good Right Flexion 4 Good Extension 4 Good Abduction (C5) 4 Good Adduction 4 Good External Rotation 4 Good Internal Rotation 4 Good Horizontal Abduction 4 Good Horizontal Adduction 4 Good Elbow/Forearm Strength Elbow and Forearm Manual Muscle Testing Left Flexion (C6) 4 Good Extension (C7) 4 Good Right Comments pain with resisted flex,ab,ER Hip Strength Hip Manual Muscle Testing Left Flexion (L2) 4- Good- Abduction 3- Fair- Adduction 3+ Fair+ Right Flexion (L2) 4- Good- Abduction 2+ Poor+ Adduction 3+ Fair+ Knee Strength Knee Manual Muscle Testing Left Flexion (S2) 4 Good Extension (L3) 4 Good Right Flexion (S2) 4- Good- Extension (L3) 4- Good- Ankle/Foot Strength Ankle and Foot Manual Muscle Testing Left Dorsiflexion (L4) 3+ Fair+ Plantarflexion (S1) 3+ Fair+ Right Dorsiflexion (L4) 3+ Fair+ Plantarflexion (S1) 3+ Fair+ PT-OP-Q Treatments Start: 09/24/22 09:30 Freq: Status: Active Protocol: Document 01/12/24 13:50 SP (Rec: 01/12/24 14:33 SP [id number]) Cardio Equipment Recumbent Stepper (Sci-Fit) Duration (Minutes) 6 Resistance 1 Seat Position 13 Other .46, 44 RPMs, resistance medium Therapeutic Exercises Supine Exercises hip/knee flex/ext Supine Exercise Name in PT Side bilateral Reps/Minutes 5 reps x2 sets alteranating each LE Comments cued tactile> min A support adduction. bridge Resistance AROM Reps/Minutes 7 reps piriformis stretch Side bilateral Resistance manual Reps/Minutes 60 Comments cued for sequencing ROM supported- good stretch HS stretch Side bilateral Resistance supine manual Reps/Minutes 60 Comments good feedback stretch Sitting Exercises march Sitting Exercise Name arms across chest Resistance 4# leg wt Equipment Used mesh chair & yellow disc Reps/Minutes 10 reps x2 sets Comments good core tiring seated clam Resistance L4 TB dark teal Reps/Minutes 5 SH x8 then 6 reps Comments good effort hip abd engagement LAQ Sitting Exercise Name arms across chest Equipment Used mesh chair & yellow disc Reps/Minutes 2x5 Comments good core tiring Standing Exercises child's pose stretch Standing Exercise Name knees, forearms Reps/Minutes 2 x20 SH Comments good back stretch Therapeutic Activity Therapeutic Activity sit to prone to all 4's Name supine<>SL (L)<>prone>forearm & tall UEs quadruped<>(child's pose) Reps/Minutes 3 reps Comments CGA/SBA Cues for walking forearms back into quadruped and slow eccentric chelle forearm walk out return to prone Gait Training Gait Activity //bars Description lateral 1.5 length Device Used bars Level of Assistance CGA Distance/Duration 10 ft Treatment Focus TKE, posture, safety Comments challenge to L full 10 ft, decreased R leg TKE today, Min A pivot transfer sit chair &w/c PT-OP-T Assessment and Plan Start: 09/24/22 09:30 Freq: Status: Active Protocol: Document 01/12/24 13:50 SP (Rec: 01/12/24 14:33 SP [id number]) Physical Therapy Assessment Goals Three Impairment pain right shoulder and low back Impairment diffiuculty performing ADL's due to pain and pain in right shoulder limits gait due to heavy use of walker Casino Manager Goal (LTG) Patient to report at least 50% decrease in pain with all usual activities and be independent with HEP for purposes of core stab, shoulder strengthening and stab 12/24/22: patient reported decrease in shoulder pain during vacation with not having to wheel herself (used power w/c), but has increased since starting to wheel again. Dec c/o LBP. Goal progress 02/18/23: reports decrease in shoulder pain to 0-4/10. Hadn 't been having back pain until exacerbation 2 weeks ago which appears QL. 05/18/23: goal progress with both shoulder and back pain 08/09/23: good goal progress, mostly met. 11/10/23: spasming in mucles above hips 06/29, lasts 1-2 secs, no pain in shoulders LTG Duration 02/10/24 One Impairment gait dysfunction Impairment 2 min walk test 127 ft, not able to tolerate 6 min walk test due to fatigue UE's from supporting body on walker and LE fatigue requiring 2 brief standing breaks, needing to stop at 2 min Short Term Goal (STG) Improve 2 min walk test to at least 150 ft as measure of improved functional gait 12/24/22: only able to ambulate 75 ft today and experienced giving way of left knee senior living through gait requiring mod assist to correct. 02/18/23: 2 min walk test 68 ft today, limited due to back pain and left leg giving way requiring her to sit 05/18/23: goal abandoned. See LTG STG Duration goal abandoned. Casino Manager Goal (LTG) Patient able to tolerate 6 min walk test with gait distance of at least 300 ft as measure of improved functional gait 05/18/23: goal modification due to inability to reach this goal: New goal: patient able to tolerate 3 min walk test and walk a distance of at least 150 feet. (current max is 109 ft) 08/09/23: patient has been more limited in her walking tolerance due to increased weakness in her legs related to her MS 11/10/23: distance for walking remains limited due to weakness in LE's, fatigue from UE's holding her up, right knee pain today. LTG Duration 02/10/24 Four Impairment weakness Impairment 5x sit to stand test 15 sec with moderate use of hands moderate core muscle weakness with less than anti-gravity strength Short Term Goal (STG) Patient to be independent and compliant with updated HEP for purposes of LE and trunk muscle strengthening 12/24/22: patient was on vacation 1 month, not as compliant, noting dec functional strength today. HEP has been updated. Goal progress 02/18/23: patient compliant with HEP, ongoing progression STG Duration goal met Casino Manager Goal (LTG) Patient able to perform 5x sit to stand test in 10 sec as measure of improved functional LE strength and demonstrate 1 grade improvement in trunk muscle strength for improved safety with ADL performance 02/18/23: 10 sec today with 5x sit to stand. Noting improved functional core strength, good goal progress 05/18/23: not able to retest due to patient activity intolerance today due to esophageal stenosis 08/09/23: improved ability since last retested, has had surgery for espophageal stenosis. 13 seconds today vs unable to perform last session 11/10/23: 14.1 first trial 10.9 sec second trial Hip flex 3+/5R 4-/5 , ab2-/5 R 2+-/5 ad 2+/5R 3+/5L , ext Knee ext 4-/5R, 4+/5L , flex 4 -/5 R, 4+/5 L Ankle df 4-/5R, 4/5 pf 4/5R, 4+/5L, inv 3+/5R, 4/5 L, ev 3+ /5R 4+/5 L LTG Duration 02/10/24 Two Impairment balance dysfunction Impairment Tinetti gait and balance assessment 11/16 indicating patient at high risk for falls static standing 44 sec without holding on Short Term Goal (STG) Patient to be independent and compliant with gait and balance HEP 12/24/22: as above not as compliant to HEP and not ambulating while on vacation 02/18/23: 41 sec standing, limited by back pain 05/18/23: unable to retest due to esophageal stenosis with dec activity tolerance today 08/09/23: has had more limited standing tolerance due to weakness from MS, 16 sec today STG Duration 12/21/23 Shelter Goal (LTG) Improve Tinetti gait and balance assessment score to moderate fall risk range to improve safety in the home and community improve static standing balance to at least 60 sec 11/10/23: 44 sec, improved over last testing LTG Duration 02/10/24 Assessment Summary Assessment Pt good feedback response to manual stretching. Improved bridges and bridge lateral scoot on back to prep positioning for bed mobility, supine<> quadruped with no outside assistance, cues for controlled quadruped>prone for core, back, LE strengthening. Good report core tiring during unsupported uneven sitting LE ther ex. Required increase outside support L side stepping due to decreased strength today. Physical Therapy Plan Frequency and Duration Frequency of Treatment 1x/Week Duration of treatment (weeks) 12 Plan of Care Start Date 11/10/23 Plan of Care End Date 02/10/24 Therapeutic Interventions Therapeutic Interventions Balance Training,Home Exercise Program,Manual Therapy, Neuromuscular Re-education, Patient/Caregiver Education, Self-Care/Home Management,Soft Tissue Mobilization,Taping, Therapeutic Activities, Therapeutic Exercises Modalities Cold Pack/Ice Massage,Hot Packs Next Visit Focus/Plan Next Note Type Treatment Note Next Visit Plan COntinue per POC: Gait training, neuro re-ed in sitting and standing, full body strengthening as tolerated all positions.
--- NOTE | 2024-01-18 14:30 | PT.OTN ---
Current Diagnoses Multiple sclerosis (01/18/24) Physical Therapy Treatment Note PT-OP-A Visit Information Start: 09/24/22 09:30 Freq: Status: Active Protocol: Document 01/18/24 13:50 SP (Rec: 01/18/24 14:31 SP [id number]) Out-Patient Physical Therapy Visit Information Visit Information Visit Type Treatment Note Visit Start Time 13:50 Visit Stop Time 14:30 Visit Number 57 total appts since initial evel 09/24/2022 (?) Number of COUNSELOR DORMITORY Visits 4 Evaluation Information Evaluation Date 09/24/22 Precautions Precautions MS, don't overfatigue, esophageal stenosis PT-OP-B Current Condition Start: 09/24/22 09:30 Freq: Status: Active Protocol: Document 12/07/23 13:44 SAK (Rec: 12/07/23 14:40 SAK [id number]) Current Condition History of Current Condition Onset Date March 2019 Current Complaints weakness due to MS, right shoulder pain, LBP History of Current Condition history MS with worsening weakness, as well as right shoulder pain (patient right handed). Patient has caregiver who assists her primarily with household tasks, HEP, walking. She uses a 4WW to walk short diestances (approx 30 feet) in the home, manual w /c for community mobility. No recent falls, but has history of falls. Reports was evaluated for power wheelchair recently but was denied. C/o right shoulder pain and tightness especially with reaching and propelling manual w/c. Well known to this PT for both land and aquatic- based PT. Prior Treatments and Tests prior PT; land and aquatic Future Testing and Treatments Planned nothing planned yet PT-OP-C Subjective Start: 09/24/22 09:30 Freq: Status: Active Protocol: Document 01/18/24 13:50 SP (Rec: 01/18/24 14:31 SP [id number]) OP-PT Subjective Patient Comments Patient Comments Pt reports still stinging B feet all the time just to what degree, especially with sitting alot in w/c during [employer]. PT-OP-D Balance Start: 09/24/22 09:30 Freq: Status: Active Protocol: Document 09/24/22 09:06 SAK (Rec: 09/28/22 11:39 SAK [id number]) Tinetti Balance Assessment Sitting Balance Sitting Balance Steady, safe Standing Balance Immediate Standing Balance Steady with support Turning Step Pattern Turning 360 Degrees Discontinuous steps Sitting Down Sitting Down Uses arms or unsteady Gait and Step Initiation of Gait Hesitancy, mult. attempts Right Foot Step Length Does not pass stance ft. Right Foot Step Height Does not clear floor Left Foot Step Length Does not pass stance foot Left Foot Step Height Does not clear floor Step Description Step Symmetry Step length appears equal Step Continuity Stopping or discontinuity Gait Description Path Description Mild/moderate deviation Trunk Description Marked sway or uses aide Walking Stance Heels apart Scoring and Interpretation Tinetti Composite Score (points) 5 PT-OP-E Functional Tests Start: 09/24/22 09:30 Freq: Status: Active Protocol: Document 09/24/22 09:06 [facility] (Rec: 09/28/22 11:39 [facility] [id number]) Functional Tests 2 Minute Walk Test Distance 127 Device Used 4WW PT-OP-G Mobility & Gait Start: 09/24/22 09:30 Freq: Status: Active Protocol: Document 09/24/22 09:06 [facility] (Rec: 09/28/22 11:39 [facility] [id number]) OP Mobility Evaluation Bed Mobility Supine to and from Sit indep Transfers Bed to Chair Transfers indep Car Transfers assisted Floor Transfers not performed OP Gait Assessment Gait Gait Assistance Required: Minimum Assistance Distance (Feet) 127 Assistive Devices Assistive Device Gait Belt,Front Wheeled Walker Orthotic/Prosthetic Devices or Brace: No Gait Deviations General Gait Pattern Decreased Stride Length, Decreased Feet Clearance, Flexed Trunk Factors Limiting Gait Function Factors Limiting Gait Function Abnormal Tonal Influences, Decreased Activity Tolerance, Decreased Strength,Pain Stair Climbing Evaluation Comments Stair Climbing Comments unable PT-OP-H Neuro Start: 09/24/22 09:30 Freq: Status: Active Protocol: Document 09/24/22 09:06 [facility] (Rec: 09/28/22 11:39 [facility] [id number]) Sensation Evaluation Gross Sensation Gross Sensation Left LE Impaired,Right LE Impaired,Trunk Impaired PT-OP-J Posture/Palpation/Skin Start: 09/24/22 09:30 Freq: Status: Active Protocol: Document 09/24/22 09:06 [facility] (Rec: 09/28/22 11:39 [facility] [id number]) Posture Evaluation Position Sitting Head/C-Spine Posture Forward Head Shoulder Posture (L) Rounded,(R) Rounded Shoulder Subluxation Position (L) Anterior,(R) Anterior Scapula Posture (L) Protracted,(R) Protracted Arm Posture (L) Internally Rotated,(R) Internally Rotated PT-OP-K Range of Motion Start: 09/24/22 09:30 Freq: Status: Active Protocol: Document 09/24/22 09:06 [facility] (Rec: 09/28/22 11:39 [facility] [id number]) Hip Goniometric Range of Motion Hip chelle Straight Leg Raise 145 Hip ROM Limitations Hip ROM Limitations Soft Tissue Tightness Ankle and Foot Goniometric Range of Motion Ankle and Foot chelle Dorsiflexion with Knee Flexed 0 Ankle and Foot ROM Limitations ROM Limitations Soft Tissue Tightness PT-OP-M Strength Start: 09/24/22 09:30 Freq: Status: Active Protocol: Document 09/24/22 09:31 [facility] (Rec: 09/24/22 10:22 [facility] [id number]) Trunk Strength Trunk Manual Muscle Testing Flexion 3- Fair- Extension 2+ Poor+ Rotation Left 3- Fair- Rotation Right 3- Fair- Lateral Flexion Left 3- Fair- Lateral Flexion Right 3- Fair- Scapula Strength Scapula Manual Muscle Testing chelle Elevation (C4) 4+ Good+ Adduction 3+ Fair+ Abduction 3 Fair Depression 3+ Fair+ Shoulder Strength Shoulder Manual Muscle Testing Left Flexion 4 Good Extension 4 Good Abduction (C5) 4 Good Adduction 4 Good External Rotation 4 Good Internal Rotation 4 Good Horizontal Abduction 4 Good Horizontal Adduction 4 Good Right Flexion 4 Good Extension 4 Good Abduction (C5) 4 Good Adduction 4 Good External Rotation 4 Good Internal Rotation 4 Good Horizontal Abduction 4 Good Horizontal Adduction 4 Good Elbow/Forearm Strength Elbow and Forearm Manual Muscle Testing Left Flexion (C6) 4 Good Extension (C7) 4 Good Right Comments pain with resisted flex,ab,ER Hip Strength Hip Manual Muscle Testing Left Flexion (L2) 4- Good- Abduction 3- Fair- Adduction 3+ Fair+ Right Flexion (L2) 4- Good- Abduction 2+ Poor+ Adduction 3+ Fair+ Knee Strength Knee Manual Muscle Testing Left Flexion (S2) 4 Good Extension (L3) 4 Good Right Flexion (S2) 4- Good- Extension (L3) 4- Good- Ankle/Foot Strength Ankle and Foot Manual Muscle Testing Left Dorsiflexion (L4) 3+ Fair+ Plantarflexion (S1) 3+ Fair+ Right Dorsiflexion (L4) 3+ Fair+ Plantarflexion (S1) 3+ Fair+ PT-OP-Q Treatments Start: 09/24/22 09:30 Freq: Status: Active Protocol: Document 01/18/24 13:50 SP (Rec: 01/18/24 14:31 SP [id number]) Cardio Equipment Recumbent Stepper (Sci-Fit) Duration (Minutes) 6 Resistance 1 Seat Position 13 Other 0.58 Therapeutic Exercises Supine Exercises hip flexor stretch Supine Exercise Name self application Side bilateral Resistance mat table BLEs off edge ( perpendicular to EOtable) Reps/Minutes 60 Comments good feedback hip flexor stretch SKTC Supine Exercise Name SKTC and ER Side bilateral Reps/Minutes 2x30 Comments manual HS stretch Side bilateral Resistance supine manual Reps/Minutes 60 Comments good feedback stretch Sidelying Exercises clamshell Sidelying Exercise Name trialed in PT Side bilateral Resistance AROM Reps/Minutes x5 reps Comments supported on side Open book Sidelying Exercise Name trialed in PT Side bilateral Resistance AROM Reps/Minutes x5 reps Comments supported on side Sitting Exercises LAQ Sitting Exercise Name arms across chest Resistance leg wt Equipment Used w/c yellow disc, therapist hand target kick to Reps/Minutes 5SH x8 reps, 2x10 alternating Comments reports inferior patella during holds, challenge bal Other Exercises leann psoe Other Exercise Name inPT Reps/Minutes 20 SH Comments good bacck stretch quaduped UE ext Other Exercise Name trialed in PT Reps/Minutes x10 rep alternating Therapeutic Activity Therapeutic Activity sit to prone to all 4's Name supine<>SL (L)<>prone>forearm & tall UEs quadruped<>(child's pose) Reps/Minutes 3 reps Comments SBA Cues for walking forearms back into quadruped and slow eccentric chelle forearm walk out return to prone Gait Training Gait Activity //bars Description lateral 1 length, fwd x2 lengths Device Used bars Level of Assistance CGA Distance/Duration 10 ft x2 laps, seated rest between lengths Treatment Focus TKE, posture, safety Comments challenge to L full 10 ft due to knee unstable/decreased strength into TKE positioning, CG-Min A PT-OP-T Assessment and Plan Start: 09/24/22 09:30 Freq: Status: Active Protocol: Document 01/18/24 13:50 SP (Rec: 01/18/24 14:31 SP [id number]) Physical Therapy Assessment Goals Three Impairment pain right shoulder and low back Impairment diffiuculty performing ADL's due to pain and pain in right shoulder limits gait due to heavy use of walker District Administrative Assistant Goal (LTG) Patient to report at least 50% decrease in pain with all usual activities and be independent with HEP for purposes of core stab, shoulder strengthening and stab 12/24/22: patient reported decrease in shoulder pain during vacation with not having to wheel herself (used power w/c), but has increased since starting to wheel again. Dec c/o LBP. Goal progress 02/18/23: reports decrease in shoulder pain to 0-4/10. Hadn 't been having back pain until exacerbation 2 weeks ago which appears QL. 05/18/23: goal progress with both shoulder and back pain 08/09/23: good goal progress, mostly met. 11/10/23: spasming in mucles above hips 06/29, lasts 1-2 secs, no pain in shoulders LTG Duration 02/10/24 One Impairment gait dysfunction Impairment 2 min walk test 127 ft, not able to tolerate 6 min walk test due to fatigue UE's from supporting body on walker and LE fatigue requiring 2 brief standing breaks, needing to stop at 2 min Short Term Goal (STG) Improve 2 min walk test to at least 150 ft as measure of improved functional gait 12/24/22: only able to ambulate 75 ft today and experienced giving way of left knee care home through gait requiring mod assist to correct. 02/18/23: 2 min walk test 68 ft today, limited due to back pain and left leg giving way requiring her to sit 05/18/23: goal abandoned. See LTG STG Duration goal abandoned. District Administrative Assistant Goal (LTG) Patient able to tolerate 6 min walk test with gait distance of at least 300 ft as measure of improved functional gait 05/18/23: goal modification due to inability to reach this goal: New goal: patient able to tolerate 3 min walk test and walk a distance of at least 150 feet. (current max is 109 ft) 08/09/23: patient has been more limited in her walking tolerance due to increased weakness in her legs related to her MS 11/10/23: distance for walking remains limited due to weakness in LE's, fatigue from UE's holding her up, right knee pain today. LTG Duration 02/10/24 Four Impairment weakness Impairment 5x sit to stand test 15 sec with moderate use of hands moderate core muscle weakness with less than anti-gravity strength Short Term Goal (STG) Patient to be independent and compliant with updated HEP for purposes of LE and trunk muscle strengthening 12/24/22: patient was on vacation 1 month, not as compliant, noting dec functional strength today. HEP has been updated. Goal progress 02/18/23: patient compliant with HEP, ongoing progression STG Duration goal met [facility] Goal (LTG) Patient able to perform 5x sit to stand test in 10 sec as measure of improved functional LE strength and demonstrate 1 grade improvement in trunk muscle strength for improved safety with ADL performance 02/18/23: 10 sec today with 5x sit to stand. Noting improved functional core strength, good goal progress 05/18/23: not able to retest due to patient activity intolerance today due to esophageal stenosis 08/09/23: improved ability since last retested, has had surgery for espophageal stenosis. 13 seconds today vs unable to perform last session 11/10/23: 14.1 first trial 10.9 sec second trial Hip flex 3+/5R 4-/5 , ab2-/5 R 2+-/5 ad 2+/5R 3+/5L , ext Knee ext 4-/5R, 4+/5L , flex 4 -/5 R, 4+/5 L Ankle df 4-/5R, 4/5 pf 4/5R, 4+/5L, inv 3+/5R, 4/5 L, ev 3+ /5R 4+/5 L LTG Duration 02/10/24 Two Impairment balance dysfunction Impairment Tinetti gait and balance assessment 11/16 indicating patient at high risk for falls static standing 44 sec without holding on Short Term Goal (STG) Patient to be independent and compliant with gait and balance HEP 12/24/22: as above not as compliant to HEP and not ambulating while on vacation 02/18/23: 41 sec standing, limited by back pain 05/18/23: unable to retest due to esophageal stenosis with dec activity tolerance today 08/09/23: has had more limited standing tolerance due to weakness from MS, 16 sec today STG Duration 12/21/23 District Administrative Assistant Goal (LTG) Improve Tinetti gait and balance assessment score to moderate fall risk range to improve safety in the home and community improve static standing balance to at least 60 sec 11/10/23: 44 sec, improved over last testing LTG Duration 02/10/24 Assessment Summary Assessment Pt improved tolerance to quadruped activities able to perform WB UE ext endurance. Good feeback rotational response intiated openbook and clamshell AROM for trunk mobility. Pt is improving no outside support during quadruped mat work. Pt continues to be challenged with gait endurance due to decreased L knee stability, continue to utilize //bars for more sturdy support. Physical Therapy Plan Frequency and Duration Frequency of Treatment 1x/Week Duration of treatment (weeks) 12 Plan of Care Start Date 11/10/23 Plan of Care End Date 02/10/24 Therapeutic Interventions Therapeutic Interventions Balance Training,Home Exercise Program,Manual Therapy, Neuromuscular Re-education, Patient/Caregiver Education, Self-Care/Home Management,Soft Tissue Mobilization,Taping, Therapeutic Activities, Therapeutic Exercises Modalities Cold Pack/Ice Massage,Hot Packs Next Visit Focus/Plan Next Note Type Treatment Note Next Visit Plan Gait in //bars per POC: Gait training, neuro re-ed in sitting and standing, full body strengthening as tolerated all positions.
--- NOTE | 2024-01-25 15:51 | PT.OTN ---
Current Diagnoses Multiple sclerosis (01/25/24) Physical Therapy Treatment Note PT-OP-A Visit Information Start: 09/24/22 09:30 Freq: Status: Active Protocol: Document 01/25/24 13:50 [facility] (Rec: 01/25/24 14:37 [facility] [id number]) Out-Patient Physical Therapy Visit Information Visit Information Visit Type Treatment Note Visit Start Time 13:45 Visit Stop Time 14:30 Visit Number 58 total Evaluation Information Evaluation Date 09/24/22 Precautions Precautions MS, don't overfatigue, esophageal stenosis PT-OP-B Current Condition Start: 09/24/22 09:30 Freq: Status: Active Protocol: Document 12/07/23 13:44 [facility] (Rec: 12/07/23 14:40 [facility] [id number]) Current Condition History of Current Condition Onset Date March 2019 Current Complaints weakness due to MS, right shoulder pain, LBP History of Current Condition history MS with worsening weakness, as well as right shoulder pain (patient right handed). Patient has caregiver who assists her primarily with household tasks, HEP, walking. She uses a 4WW to walk short diestances (approx 30 feet) in the home, manual w /c for community mobility. No recent falls, but has history of falls. Reports was evaluated for power wheelchair recently but was denied. C/o right shoulder pain and tightness especially with reaching and propelling manual w/c. Well known to this PT for both land and aquatic- based PT. Prior Treatments and Tests prior PT; land and aquatic Future Testing and Treatments Planned nothing planned yet PT-OP-C Subjective Start: 09/24/22 09:30 Freq: Status: Active Protocol: Document 01/25/24 13:50 [facility] (Rec: 01/25/24 14:37 [facility] [id number]) OP-PT Subjective Patient Comments Patient Comments Patient reports had event over weekend got overtired and right leg would hardly work and neck and shoulder sore from looking up to talk with people from her wheelchair. PT-OP-D Balance Start: 09/24/22 09:30 Freq: Status: Active Protocol: Document 09/24/22 09:06 [facility] (Rec: 09/28/22 11:39 [facility] [id number]) Tinetti Balance Assessment Sitting Balance Sitting Balance Steady, safe Standing Balance Immediate Standing Balance Steady with support Turning Step Pattern Turning 360 Degrees Discontinuous steps Sitting Down Sitting Down Uses arms or unsteady Gait and Step Initiation of Gait Hesitancy, mult. attempts Right Foot Step Length Does not pass stance ft. Right Foot Step Height Does not clear floor Left Foot Step Length Does not pass stance foot Left Foot Step Height Does not clear floor Step Description Step Symmetry Step length appears equal Step Continuity Stopping or discontinuity Gait Description Path Description Mild/moderate deviation Trunk Description Marked sway or uses aide Walking Stance Heels apart Scoring and Interpretation Tinetti Composite Score (points) 5 PT-OP-E Functional Tests Start: 09/24/22 09:30 Freq: Status: Active Protocol: Document 09/24/22 09:06 [facility] (Rec: 09/28/22 11:39 [facility] [id number]) Functional Tests 2 Minute Walk Test Distance 127 Device Used 4WW PT-OP-G Mobility & Gait Start: 09/24/22 09:30 Freq: Status: Active Protocol: Document 09/24/22 09:06 [facility] (Rec: 09/28/22 11:39 [facility] [id number]) OP Mobility Evaluation Bed Mobility Supine to and from Sit indep Transfers Bed to Chair Transfers indep Car Transfers assisted Floor Transfers not performed OP Gait Assessment Gait Gait Assistance Required: Minimum Assistance Distance (Feet) 127 Assistive Devices Assistive Device Gait Belt,Front Wheeled Walker Orthotic/Prosthetic Devices or Brace: No Gait Deviations General Gait Pattern Decreased Stride Length, Decreased Feet Clearance, Flexed Trunk Factors Limiting Gait Function Factors Limiting Gait Function Abnormal Tonal Influences, Decreased Activity Tolerance, Decreased Strength,Pain Stair Climbing Evaluation Comments Stair Climbing Comments unable PT-OP-H Neuro Start: 09/24/22 09:30 Freq: Status: Active Protocol: Document 09/24/22 09:06 [facility] (Rec: 09/28/22 11:39 [facility] [id number]) Sensation Evaluation Gross Sensation Gross Sensation Left LE Impaired,Right LE Impaired,Trunk Impaired PT-OP-J Posture/Palpation/Skin Start: 09/24/22 09:30 Freq: Status: Active Protocol: Document 09/24/22 09:06 [facility] (Rec: 09/28/22 11:39 [facility] [id number]) Posture Evaluation Position Sitting Head/C-Spine Posture Forward Head Shoulder Posture (L) Rounded,(R) Rounded Shoulder Subluxation Position (L) Anterior,(R) Anterior Scapula Posture (L) Protracted,(R) Protracted Arm Posture (L) Internally Rotated,(R) Internally Rotated PT-OP-K Range of Motion Start: 09/24/22 09:30 Freq: Status: Active Protocol: Document 09/24/22 09:06 [facility] (Rec: 09/28/22 11:39 [facility] [id number]) Hip Goniometric Range of Motion Hip chelle Straight Leg Raise 145 Hip ROM Limitations Hip ROM Limitations Soft Tissue Tightness Ankle and Foot Goniometric Range of Motion Ankle and Foot chelle Dorsiflexion with Knee Flexed 0 Ankle and Foot ROM Limitations ROM Limitations Soft Tissue Tightness PT-OP-M Strength Start: 09/24/22 09:30 Freq: Status: Active Protocol: Document 09/24/22 09:31 [facility] (Rec: 09/24/22 10:22 [facility] [id number]) Trunk Strength Trunk Manual Muscle Testing Flexion 3- Fair- Extension 2+ Poor+ Rotation Left 3- Fair- Rotation Right 3- Fair- Lateral Flexion Left 3- Fair- Lateral Flexion Right 3- Fair- Scapula Strength Scapula Manual Muscle Testing chelle Elevation (C4) 4+ Good+ Adduction 3+ Fair+ Abduction 3 Fair Depression 3+ Fair+ Shoulder Strength Shoulder Manual Muscle Testing Left Flexion 4 Good Extension 4 Good Abduction (C5) 4 Good Adduction 4 Good External Rotation 4 Good Internal Rotation 4 Good Horizontal Abduction 4 Good Horizontal Adduction 4 Good Right Flexion 4 Good Extension 4 Good Abduction (C5) 4 Good Adduction 4 Good External Rotation 4 Good Internal Rotation 4 Good Horizontal Abduction 4 Good Horizontal Adduction 4 Good Elbow/Forearm Strength Elbow and Forearm Manual Muscle Testing Left Flexion (C6) 4 Good Extension (C7) 4 Good Right Comments pain with resisted flex,ab,ER Hip Strength Hip Manual Muscle Testing Left Flexion (L2) 4- Good- Abduction 3- Fair- Adduction 3+ Fair+ Right Flexion (L2) 4- Good- Abduction 2+ Poor+ Adduction 3+ Fair+ Knee Strength Knee Manual Muscle Testing Left Flexion (S2) 4 Good Extension (L3) 4 Good Right Flexion (S2) 4- Good- Extension (L3) 4- Good- Ankle/Foot Strength Ankle and Foot Manual Muscle Testing Left Dorsiflexion (L4) 3+ Fair+ Plantarflexion (S1) 3+ Fair+ Right Dorsiflexion (L4) 3+ Fair+ Plantarflexion (S1) 3+ Fair+ PT-OP-Q Treatments Start: 09/24/22 09:30 Freq: Status: Active Protocol: Document 01/25/24 13:50 [facility] (Rec: 01/25/24 14:37 [facility] [id number]) Cardio Equipment Recumbent Stepper (Sci-Fit) Duration (Minutes) 5 Resistance 1 Seat Position 13 Other 0.49, RPM 52 at high Therapeutic Exercises Prone Exercises elbow plank Prone Exercise Name inPT Reps/Minutes 5sec x 5 Comments cued TA for back support, head up hip IR/ER Prone Exercise Name unilateral and chelle Side bilateral Resistance AROM Reps/Minutes 2x10 each Comments cued maintain knee flexion 90 deg, slow controlled IR/ ER range manage HS curl Equipment Used 2# wt Reps/Minutes 10x prone on elbows Reps/Minutes 10x2 sec hold Comments cued TA inhibit LS pressure. scapular retractions Comments cues less arm involvement hip ext Side bilateral Resistance AROM Equipment Used pillows under anterior shoulders Reps/Minutes 5 x1 sets Comments cues for core& glut engagement - 3 reps R toe touch table quad/hip flexor stretch Prone Exercise Name quad then hip flexor Side bilateral Resistance manual via therapist Equipment Used pillow under chest pt positions Reps/Minutes 2x30 Comments good feedback stretch Sitting Exercises LAQ Sitting Exercise Name arms across chest Resistance leg wt Equipment Used w/c yellow disc, therapist hand target kick to Reps/Minutes 5SH x8 reps, 2x10 alternating Comments reports inferior patella during holds, challenge bal Gait Training Gait Activity FWW Level of Assistance CGA to mod assist balance Surface firm Distance/Duration 25 ft, 10 ft Comments stopped due to instability right LE, UE fatigue Manual Therapy Treatment Taping right knee Body Location meniscus Treatment Focus pain relief Type of Tape KT Skin Inspection intact Comments I strip 50% stretch tibial tuberosity proximal and medial across knee joint line PT-OP-T Assessment and Plan Start: 09/24/22 09:30 Freq: Status: Active Protocol: Document 01/25/24 13:50 [facility] (Rec: 01/25/24 14:37 [facility] [id number]) Physical Therapy Assessment Goals Three Impairment pain right shoulder and low back Impairment diffiuculty performing ADL's due to pain and pain in right shoulder limits gait due to heavy use of walker Custodial Goal (LTG) Patient to report at least 50% decrease in pain with all usual activities and be independent with HEP for purposes of core stab, shoulder strengthening and stab 12/24/22: patient reported decrease in shoulder pain during vacation with not having to wheel herself (used power w/c), but has increased since starting to wheel again. Dec c/o LBP. Goal progress 02/18/23: reports decrease in shoulder pain to 0-4/10. Hadn 't been having back pain until exacerbation 2 weeks ago which appears QL. 05/18/23: goal progress with both shoulder and back pain 08/09/23: good goal progress, mostly met. 11/10/23: spasming in mucles above hips 06/29, lasts 1-2 secs, no pain in shoulders LTG Duration 02/10/24 One Impairment gait dysfunction Impairment 2 min walk test 127 ft, not able to tolerate 6 min walk test due to fatigue UE's from supporting body on walker and LE fatigue requiring 2 brief standing breaks, needing to stop at 2 min Short Term Goal (STG) Improve 2 min walk test to at least 150 ft as measure of improved functional gait 12/24/22: only able to ambulate 75 ft today and experienced giving way of left knee long-term through gait requiring mod assist to correct. 02/18/23: 2 min walk test 68 ft today, limited due to back pain and left leg giving way requiring her to sit 05/18/23: goal abandoned. See LTG STG Duration goal abandoned. Custodial Goal (LTG) Patient able to tolerate 6 min walk test with gait distance of at least 300 ft as measure of improved functional gait 05/18/23: goal modification due to inability to reach this goal: New goal: patient able to tolerate 3 min walk test and walk a distance of at least 150 feet. (current max is 109 ft) 08/09/23: patient has been more limited in her walking tolerance due to increased weakness in her legs related to her MS 11/10/23: distance for walking remains limited due to weakness in LE's, fatigue from UE's holding her up, right knee pain today. LTG Duration 02/10/24 Four Impairment weakness Impairment 5x sit to stand test 15 sec with moderate use of hands moderate core muscle weakness with less than anti-gravity strength Short Term Goal (STG) Patient to be independent and compliant with updated HEP for purposes of LE and trunk muscle strengthening 12/24/22: patient was on vacation 1 month, not as compliant, noting dec functional strength today. HEP has been updated. Goal progress 02/18/23: patient compliant with HEP, ongoing progression STG Duration goal met [employer] Goal (LTG) Patient able to perform 5x sit to stand test in 10 sec as measure of improved functional LE strength and demonstrate 1 grade improvement in trunk muscle strength for improved safety with ADL performance 02/18/23: 10 sec today with 5x sit to stand. Noting improved functional core strength, good goal progress 05/18/23: not able to retest due to patient activity intolerance today due to esophageal stenosis 08/09/23: improved ability since last retested, has had surgery for espophageal stenosis. 13 seconds today vs unable to perform last session 11/10/23: 14.1 first trial 10.9 sec second trial Hip flex 3+/5R 4-/5 , ab2-/5 R 2+-/5 ad 2+/5R 3+/5L , ext Knee ext 4-/5R, 4+/5L , flex 4 -/5 R, 4+/5 L Ankle df 4-/5R, 4/5 pf 4/5R, 4+/5L, inv 3+/5R, 4/5 L, ev 3+ /5R 4+/5 L LTG Duration 02/10/24 Two Impairment balance dysfunction Impairment Tinetti gait and balance assessment 11/16 indicating patient at high risk for falls static standing 44 sec without holding on Short Term Goal (STG) Patient to be independent and compliant with gait and balance HEP 12/24/22: as above not as compliant to HEP and not ambulating while on vacation 02/18/23: 41 sec standing, limited by back pain 05/18/23: unable to retest due to esophageal stenosis with dec activity tolerance today 08/09/23: has had more limited standing tolerance due to weakness from MS, 16 sec today STG Duration 12/21/23 [employer] Goal (LTG) Improve Tinetti gait and balance assessment score to moderate fall risk range to improve safety in the home and community improve static standing balance to at least 60 sec 11/10/23: 44 sec, improved over last testing LTG Duration 02/10/24 Assessment Summary Assessment Increased distance walked today, rquired 2 bouts, though c/o right knee soreness, KT tape applied after gait. Able to trainsition to quadriped independently today, Fatigued and then wasn't able to perform sit to stands. Physical Therapy Plan Frequency and Duration Frequency of Treatment 1x/Week Duration of treatment (weeks) 12 Plan of Care Start Date 11/10/23 Plan of Care End Date 02/10/24 Therapeutic Interventions Therapeutic Interventions Balance Training,Home Exercise Program,Manual Therapy, Neuromuscular Re-education, Patient/Caregiver Education, Self-Care/Home Management,Soft Tissue Mobilization,Taping, Therapeutic Activities, Therapeutic Exercises Modalities Cold Pack/Ice Massage,Hot Packs Next Visit Focus/Plan Next Note Type Treatment Note Next Visit Plan Gait in //bars per POC: Gait training, neuro re-ed in sitting and standing, full body strengthening as tolerated all positions.
--- NOTE | 2024-02-01 16:01 | PT.OTN ---
Current Diagnoses Multiple sclerosis (02/01/24) Physical Therapy Treatment Note PT-OP-A Visit Information Start: 09/24/22 09:30 Freq: Status: Active Protocol: Document 02/01/24 14:00 [facility] (Rec: 02/01/24 14:03 [facility] [id number]) Out-Patient Physical Therapy Visit Information Visit Information Visit Type Treatment Note Visit Start Time 13:50 Visit Stop Time 14:30 Visit Number 59 total Evaluation Information Evaluation Date 09/24/22 Precautions Precautions MS, don't overfatigue, esophageal stenosis PT-OP-B Current Condition Start: 09/24/22 09:30 Freq: Status: Active Protocol: Document 12/07/23 13:44 [facility] (Rec: 12/07/23 14:40 [facility] [id number]) Current Condition History of Current Condition Onset Date March 2019 Current Complaints weakness due to MS, right shoulder pain, LBP History of Current Condition history MS with worsening weakness, as well as right shoulder pain (patient right handed). Patient has caregiver who assists her primarily with household tasks, HEP, walking. She uses a 4WW to walk short diestances (approx 30 feet) in the home, manual w /c for community mobility. No recent falls, but has history of falls. Reports was evaluated for power wheelchair recently but was denied. C/o right shoulder pain and tightness especially with reaching and propelling manual w/c. Well known to this PT for both land and aquatic- based PT. Prior Treatments and Tests prior PT; land and aquatic Future Testing and Treatments Planned nothing planned yet PT-OP-C Subjective Start: 09/24/22 09:30 Freq: Status: Active Protocol: Document 02/01/24 14:00 [facility] (Rec: 02/01/24 14:03 [facility] [id number]) OP-PT Subjective Patient Comments Patient Comments Having right wrist and hand pain since last week when had to wheel herself up and down a ramp [place] a movie theatre. Wearing a brace. States walking not an option today. PT-OP-D Balance Start: 09/24/22 09:30 Freq: Status: Active Protocol: Document 09/24/22 09:06 [facility] (Rec: 09/28/22 11:39 [facility] [id number]) Tinetti Balance Assessment Sitting Balance Sitting Balance Steady, safe Standing Balance Immediate Standing Balance Steady with support Turning Step Pattern Turning 360 Degrees Discontinuous steps Sitting Down Sitting Down Uses arms or unsteady Gait and Step Initiation of Gait Hesitancy, mult. attempts Right Foot Step Length Does not pass stance ft. Right Foot Step Height Does not clear floor Left Foot Step Length Does not pass stance foot Left Foot Step Height Does not clear floor Step Description Step Symmetry Step length appears equal Step Continuity Stopping or discontinuity Gait Description Path Description Mild/moderate deviation Trunk Description Marked sway or uses aide Walking Stance Heels apart Scoring and Interpretation Tinetti Composite Score (points) 5 PT-OP-E Functional Tests Start: 09/24/22 09:30 Freq: Status: Active Protocol: Document 09/24/22 09:06 [facility] (Rec: 09/28/22 11:39 [facility] [id number]) Functional Tests 2 Minute Walk Test Distance 127 Device Used 4WW PT-OP-G Mobility & Gait Start: 09/24/22 09:30 Freq: Status: Active Protocol: Document 09/24/22 09:06 [facility] (Rec: 09/28/22 11:39 [facility] [id number]) OP Mobility Evaluation Bed Mobility Supine to and from Sit indep Transfers Bed to Chair Transfers indep Car Transfers assisted Floor Transfers not performed OP Gait Assessment Gait Gait Assistance Required: Minimum Assistance Distance (Feet) 127 Assistive Devices Assistive Device Gait Belt,Front Wheeled Walker Orthotic/Prosthetic Devices or Brace: No Gait Deviations General Gait Pattern Decreased Stride Length, Decreased Feet Clearance, Flexed Trunk Factors Limiting Gait Function Factors Limiting Gait Function Abnormal Tonal Influences, Decreased Activity Tolerance, Decreased Strength,Pain Stair Climbing Evaluation Comments Stair Climbing Comments unable PT-OP-H Neuro Start: 09/24/22 09:30 Freq: Status: Active Protocol: Document 09/24/22 09:06 [facility] (Rec: 09/28/22 11:39 [facility] [id number]) Sensation Evaluation Gross Sensation Gross Sensation Left LE Impaired,Right LE Impaired,Trunk Impaired PT-OP-J Posture/Palpation/Skin Start: 09/24/22 09:30 Freq: Status: Active Protocol: Document 09/24/22 09:06 [facility] (Rec: 09/28/22 11:39 [facility] [id number]) Posture Evaluation Position Sitting Head/C-Spine Posture Forward Head Shoulder Posture (L) Rounded,(R) Rounded Shoulder Subluxation Position (L) Anterior,(R) Anterior Scapula Posture (L) Protracted,(R) Protracted Arm Posture (L) Internally Rotated,(R) Internally Rotated PT-OP-K Range of Motion Start: 09/24/22 09:30 Freq: Status: Active Protocol: Document 09/24/22 09:06 [facility] (Rec: 09/28/22 11:39 [facility] [id number]) Hip Goniometric Range of Motion Hip chelle Straight Leg Raise 145 Hip ROM Limitations Hip ROM Limitations Soft Tissue Tightness Ankle and Foot Goniometric Range of Motion Ankle and Foot chelle Dorsiflexion with Knee Flexed 0 Ankle and Foot ROM Limitations ROM Limitations Soft Tissue Tightness PT-OP-M Strength Start: 09/24/22 09:30 Freq: Status: Active Protocol: Document 09/24/22 09:31 [facility] (Rec: 09/24/22 10:22 [facility] [id number]) Trunk Strength Trunk Manual Muscle Testing Flexion 3- Fair- Extension 2+ Poor+ Rotation Left 3- Fair- Rotation Right 3- Fair- Lateral Flexion Left 3- Fair- Lateral Flexion Right 3- Fair- Scapula Strength Scapula Manual Muscle Testing chelle Elevation (C4) 4+ Good+ Adduction 3+ Fair+ Abduction 3 Fair Depression 3+ Fair+ Shoulder Strength Shoulder Manual Muscle Testing Left Flexion 4 Good Extension 4 Good Abduction (C5) 4 Good Adduction 4 Good External Rotation 4 Good Internal Rotation 4 Good Horizontal Abduction 4 Good Horizontal Adduction 4 Good Right Flexion 4 Good Extension 4 Good Abduction (C5) 4 Good Adduction 4 Good External Rotation 4 Good Internal Rotation 4 Good Horizontal Abduction 4 Good Horizontal Adduction 4 Good Elbow/Forearm Strength Elbow and Forearm Manual Muscle Testing Left Flexion (C6) 4 Good Extension (C7) 4 Good Right Comments pain with resisted flex,ab,ER Hip Strength Hip Manual Muscle Testing Left Flexion (L2) 4- Good- Abduction 3- Fair- Adduction 3+ Fair+ Right Flexion (L2) 4- Good- Abduction 2+ Poor+ Adduction 3+ Fair+ Knee Strength Knee Manual Muscle Testing Left Flexion (S2) 4 Good Extension (L3) 4 Good Right Flexion (S2) 4- Good- Extension (L3) 4- Good- Ankle/Foot Strength Ankle and Foot Manual Muscle Testing Left Dorsiflexion (L4) 3+ Fair+ Plantarflexion (S1) 3+ Fair+ Right Dorsiflexion (L4) 3+ Fair+ Plantarflexion (S1) 3+ Fair+ PT-OP-Q Treatments Start: 09/24/22 09:30 Freq: Status: Active Protocol: Document 02/01/24 14:00 [facility] (Rec: 02/01/24 14:34 [facility] [id number]) Cardio Equipment Recumbent Stepper (Sci-Fit) Duration (Minutes) 5 Resistance 61 Seat Position 13 Other .46 mi, .46 RPM chelle LE's and left UE Therapeutic Exercises Supine Exercises supine clam Equipment Used L2 TB Reps/Minutes 10x hip/knee flex/ext Supine Exercise Name in PT Side bilateral Reps/Minutes 5 reps x2 sets alteranating each LE Comments cued tactile> min A support adduction. bridge Resistance AROM Equipment Used 65 cm ball Reps/Minutes 10x reps heel dig Equipment Used 65 cm therapy ball Reps/Minutes 10x hip abd Supine Exercise Name with manual resistance Reps/Minutes 10x chelle Comments mod assist to hold leg off table trunk rotation Supine Exercise Name self LS & TS stretch Side bilateral Resistance AROM Equipment Used on mat table Reps/Minutes 10x Comments Good mid thoracic and QL stretch&ROM- post manual IT band stretch Reps/Minutes 2x30 Comments manual figure 4 Resistance 2# leg wt Reps/Minutes x10 piriformis stretch Side bilateral Resistance manual Reps/Minutes 60 Comments cued for sequencing ROM supported- good stretch LTR Side bilateral Resistance TB #2 therapist above knees Equipment Used 65 cm ball Reps/Minutes x10 Comments cued slower pacing rotation hip flexor stretch Supine Exercise Name self application Side bilateral Resistance mat table BLEs off edge ( perpendicular to EOtable) Reps/Minutes 60 Comments good feedback hip flexor stretch SKTC Supine Exercise Name SKTC and ER Side bilateral Reps/Minutes 2x30 Comments manual HS stretch Side bilateral Resistance supine manual Reps/Minutes 60 Comments good feedback stretch Sitting Exercises reverse crunch Equipment Used Dynadisc Reps/Minutes 10x may Sitting Exercise Name arms across chest Resistance 2# leg wt Equipment Used mesh chair & yellow disc Reps/Minutes 10 reps x2 sets Comments good core tiring LAQ Sitting Exercise Name arms across chest Resistance leg wt Equipment Used w/c yellow disc, therapist hand target kick to Reps/Minutes 5SH x8 reps, 2# Comments reports inferior patella during holds, challenge bal Gait Training Gait Activity FWW Comments held due to hand soreness Self-Care/Home Management Treatment Education Other Education continue wearing brace, ice hand and wrist PT-OP-T Assessment and Plan Start: 09/24/22 09:30 Freq: Status: Active Protocol: Document 02/01/24 14:00 [facility] (Rec: 02/01/24 14:03 [facility] [id number]) Physical Therapy Assessment Goals Three Impairment pain right shoulder and low back Impairment diffiuculty performing ADL's due to pain and pain in right shoulder limits gait due to heavy use of walker Fpc Goal (LTG) Patient to report at least 50% decrease in pain with all usual activities and be independent with HEP for purposes of core stab, shoulder strengthening and stab 12/24/22: patient reported decrease in shoulder pain during vacation with not having to wheel herself (used power w/c), but has increased since starting to wheel again. Dec c/o LBP. Goal progress 02/18/23: reports decrease in shoulder pain to 0-4/10. Hadn 't been having back pain until exacerbation 2 weeks ago which appears QL. 05/18/23: goal progress with both shoulder and back pain 08/09/23: good goal progress, mostly met. 11/10/23: spasming in mucles above hips 06/29, lasts 1-2 secs, no pain in shoulders LTG Duration 02/10/24 One Impairment gait dysfunction Impairment 2 min walk test 127 ft, not able to tolerate 6 min walk test due to fatigue UE's from supporting body on walker and LE fatigue requiring 2 brief standing breaks, needing to stop at 2 min Short Term Goal (STG) Improve 2 min walk test to at least 150 ft as measure of improved functional gait 12/24/22: only able to ambulate 75 ft today and experienced giving way of left knee [facility] through gait requiring mod assist to correct. 02/18/23: 2 min walk test 68 ft today, limited due to back pain and left leg giving way requiring her to sit 05/18/23: goal abandoned. See LTG STG Duration goal abandoned. Fpc Goal (LTG) Patient able to tolerate 6 min walk test with gait distance of at least 300 ft as measure of improved functional gait 05/18/23: goal modification due to inability to reach this goal: New goal: patient able to tolerate 3 min walk test and walk a distance of at least 150 feet. (current max is 109 ft) 08/09/23: patient has been more limited in her walking tolerance due to increased weakness in her legs related to her MS 8/21/24: distance for walking remains limited due to weakness in LE's, fatigue from UE's holding her up, right knee pain today. LTG Duration 02/10/24 Four Impairment weakness Impairment 5x sit to stand test 15 sec with moderate use of hands moderate core muscle weakness with less than anti-gravity strength Short Term Goal (STG) Patient to be independent and compliant with updated HEP for purposes of LE and trunk muscle strengthening 12/24/22: patient was on vacation 1 month, not as compliant, noting dec functional strength today. HEP has been updated. Goal progress 02/18/23: patient compliant with HEP, ongoing progression STG Duration goal met Fpc Goal (LTG) Patient able to perform 5x sit to stand test in 10 sec as measure of improved functional LE strength and demonstrate 1 grade improvement in trunk muscle strength for improved safety with ADL performance 02/18/23: 10 sec today with 5x sit to stand. Noting improved functional core strength, good goal progress 05/18/23: not able to retest due to patient activity intolerance today due to esophageal stenosis 08/09/23: improved ability since last retested, has had surgery for espophageal stenosis. 13 seconds today vs unable to perform last session 11/10/23: 14.1 first trial 10.9 sec second trial Hip flex 3+/5R 4-/5 , ab2-/5 R 2+-/5 ad 2+/5R 3+/5L , ext Knee ext 4-/5R, 4+/5L , flex 4 -/5 R, 4+/5 L Ankle df 4-/5R, 4/5 pf 4/5R, 4+/5L, inv 3+/5R, 4/5 L, ev 3+ /5R 4+/5 L LTG Duration 02/10/24 Two Impairment balance dysfunction Impairment Tinetti gait and balance assessment 11/16 indicating patient at high risk for falls static standing 44 sec without holding on Short Term Goal (STG) Patient to be independent and compliant with gait and balance HEP 12/24/22: as above not as compliant to HEP and not ambulating while on vacation 02/18/23: 41 sec standing, limited by back pain 05/18/23: unable to retest due to esophageal stenosis with dec activity tolerance today 08/09/23: has had more limited standing tolerance due to weakness from MS, 16 sec today STG Duration 12/21/23 [employer] Goal (LTG) Improve Tinetti gait and balance assessment score to moderate fall risk range to improve safety in the home and community improve static standing balance to at least 60 sec 11/10/23: 44 sec, improved over last testing LTG Duration 02/10/24 Assessment Summary Assessment No gait, prone ex, or UE ex due to right hand and wrist soreness. DIscussed potential for patient getting w/c van with option for using power chair as needed both as MS progresses and due to current hand and wrist pain making propelling herself even more challenging. Patient wearing hand/wrist brace holding in neutral position. States will ice as recommended, see doctor if doesn't improve. Physical Therapy Plan Frequency and Duration Frequency of Treatment 1x/Week Duration of treatment (weeks) 12 Plan of Care Start Date 11/10/23 Plan of Care End Date 02/10/24 Therapeutic Interventions Therapeutic Interventions Balance Training,Home Exercise Program,Manual Therapy, Neuromuscular Re-education, Patient/Caregiver Education, Self-Care/Home Management,Soft Tissue Mobilization,Taping, Therapeutic Activities, Therapeutic Exercises Modalities Cold Pack/Ice Massage,Hot Packs Next Visit Focus/Plan Next Visit Plan gait and standing ex only as tolerated by right wrist, possiby still modify. Strengthening core, LE's, UE's as tolerated. KT tape again as indicated for right knee.
--- NOTE | 2024-02-15 15:27 | PT.OTRE ---
Current Diagnoses Multiple sclerosis (02/15/24) Past Medical History (Last Updated 02/24/23 @ 14:56 by Elizabeth Alonso DO) IUD (intrauterine device) in place Moderate mixed hyperlipidemia not requiring statin therapy Visit Care Team Role Provider Type Elizabeth Alonso DO Primary Care Provider Physician Specialty: Family Practice Address: [address] [place] [address], [id number] Email: [email or web address] Rehan Zacarias MD Family Provider Non-Staff Specialty: Internal Medicine Address: [address] [place] [address], [place], [address] Email: Rufino Umaña MD Attending Provider Non-Staff Referring Provider Specialty: Psychiatry Address: [address] [place] [address], [address], [address] Email: Physical Therapy Re-Evaluation PT-OP-A Visit Information Start: 09/24/22 09:30 Freq: Status: Active Protocol: Document 02/15/24 13:46 [facility] (Rec: 02/15/24 14:34 [facility] [id number]) Out-Patient Physical Therapy Visit Information Visit Information Visit Type Treatment Note Visit Start Time 13:00 Visit Stop Time 13:45 Visit Number 60 Evaluation Information Evaluation Date 09/24/22 Precautions Precautions MS, don't overfatigue, esophageal stenosis PT-OP-B Current Condition Start: 09/24/22 09:30 Freq: Status: Active Protocol: Document 12/07/23 13:44 [facility] (Rec: 12/07/23 14:40 [facility] [id number]) Current Condition History of Current Condition Onset Date March 2019 Current Complaints weakness due to MS, right shoulder pain, LBP History of Current Condition history MS with worsening weakness, as well as right shoulder pain (patient right handed). Patient has caregiver who assists her primarily with household tasks, HEP, walking. She uses a 4WW to walk short diestances (approx 30 feet) in the home, manual w /c for community mobility. No recent falls, but has history of falls. Reports was evaluated for power wheelchair recently but was denied. C/o right shoulder pain and tightness especially with reaching and propelling manual w/c. Well known to this PT for both land and aquatic- based PT. Prior Treatments and Tests prior PT; land and aquatic Future Testing and Treatments Planned nothing planned yet PT-OP-C Subjective Start: 09/24/22 09:30 Freq: Status: Active Protocol: Document 02/15/24 13:46 [facility] (Rec: 02/15/24 14:34 [facility] [id number]) OP-PT Subjective Patient Comments Patient Comments Now has nightime brace for hand, has been trying to stand more, pain improved everywhere except right hand. PT-OP-D Balance Start: 09/24/22 09:30 Freq: Status: Active Protocol: Document 09/24/22 09:06 [facility] (Rec: 09/28/22 11:39 [facility] [id number]) Tinetti Balance Assessment Sitting Balance Sitting Balance Steady, safe Standing Balance Immediate Standing Balance Steady with support Turning Step Pattern Turning 360 Degrees Discontinuous steps Sitting Down Sitting Down Uses arms or unsteady Gait and Step Initiation of Gait Hesitancy, mult. attempts Right Foot Step Length Does not pass stance ft. Right Foot Step Height Does not clear floor Left Foot Step Length Does not pass stance foot Left Foot Step Height Does not clear floor Step Description Step Symmetry Step length appears equal Step Continuity Stopping or discontinuity Gait Description Path Description Mild/moderate deviation Trunk Description Marked sway or uses aide Walking Stance Heels apart Scoring and Interpretation Tinetti Composite Score (points) 5 PT-OP-E Functional Tests Start: 09/24/22 09:30 Freq: Status: Active Protocol: Document 09/24/22 09:06 [facility] (Rec: 09/28/22 11:39 [facility] [id number]) Functional Tests 2 Minute Walk Test Distance 127 Device Used 4WW PT-OP-G Mobility & Gait Start: 09/24/22 09:30 Freq: Status: Active Protocol: Document 09/24/22 09:06 [facility] (Rec: 09/28/22 11:39 [facility] [id number]) OP Mobility Evaluation Bed Mobility Supine to and from Sit indep Transfers Bed to Chair Transfers indep Car Transfers assisted Floor Transfers not performed OP Gait Assessment Gait Gait Assistance Required: Minimum Assistance Distance (Feet) 127 Assistive Devices Assistive Device Gait Belt,Front Wheeled Walker Orthotic/Prosthetic Devices or Brace: No Gait Deviations General Gait Pattern Decreased Stride Length, Decreased Feet Clearance, Flexed Trunk Factors Limiting Gait Function Factors Limiting Gait Function Abnormal Tonal Influences, Decreased Activity Tolerance, Decreased Strength,Pain Stair Climbing Evaluation Comments Stair Climbing Comments unable PT-OP-H Neuro Start: 09/24/22 09:30 Freq: Status: Active Protocol: Document 09/24/22 09:06 [facility] (Rec: 09/28/22 11:39 [facility] [id number]) Sensation Evaluation Gross Sensation Gross Sensation Left LE Impaired,Right LE Impaired,Trunk Impaired PT-OP-J Posture/Palpation/Skin Start: 09/24/22 09:30 Freq: Status: Active Protocol: Document 09/24/22 09:06 [facility] (Rec: 09/28/22 11:39 [facility] [id number]) Posture Evaluation Position Sitting Head/C-Spine Posture Forward Head Shoulder Posture (L) Rounded,(R) Rounded Shoulder Subluxation Position (L) Anterior,(R) Anterior Scapula Posture (L) Protracted,(R) Protracted Arm Posture (L) Internally Rotated,(R) Internally Rotated PT-OP-K Range of Motion Start: 09/24/22 09:30 Freq: Status: Active Protocol: Document 09/24/22 09:06 [facility] (Rec: 09/28/22 11:39 [facility] [id number]) Hip Goniometric Range of Motion Hip Measured in Degrees chelle Straight Leg Raise 145 Hip ROM Limitations Hip ROM Limitations Soft Tissue Tightness Ankle and Foot Goniometric Range of Motion Ankle and Foot Measured in Degrees chelle Dorsiflexion with Knee Flexed 0 Ankle and Foot ROM Limitations ROM Limitations Soft Tissue Tightness PT-OP-M Strength Start: 09/24/22 09:30 Freq: Status: Active Protocol: Document 09/24/22 09:31 [facility] (Rec: 09/24/22 10:22 [facility] [id number]) Trunk Strength Trunk Manual Muscle Testing Flexion 3- Fair- Extension 2+ Poor+ Rotation Left 3- Fair- Rotation Right 3- Fair- Lateral Flexion Left 3- Fair- Lateral Flexion Right 3- Fair- Scapula Strength Scapula Manual Muscle Testing chelle Elevation (C4) 4+ Good+ Adduction 3+ Fair+ Abduction 3 Fair Depression 3+ Fair+ Shoulder Strength Shoulder Manual Muscle Testing Left Flexion 4 Good Extension 4 Good Abduction (C5) 4 Good Adduction 4 Good External Rotation 4 Good Internal Rotation 4 Good Horizontal Abduction 4 Good Horizontal Adduction 4 Good Right Flexion 4 Good Extension 4 Good Abduction (C5) 4 Good Adduction 4 Good External Rotation 4 Good Internal Rotation 4 Good Horizontal Abduction 4 Good Horizontal Adduction 4 Good Elbow/Forearm Strength Elbow and Forearm Manual Muscle Testing Left Flexion (C6) 4 Good Extension (C7) 4 Good Right Comments pain with resisted flex,ab,ER Hip Strength Hip Manual Muscle Testing Left Flexion (L2) 4- Good- Abduction 3- Fair- Adduction 3+ Fair+ Right Flexion (L2) 4- Good- Abduction 2+ Poor+ Adduction 3+ Fair+ Knee Strength Knee Manual Muscle Testing Left Flexion (S2) 4 Good Extension (L3) 4 Good Right Flexion (S2) 4- Good- Extension (L3) 4- Good- Ankle/Foot Strength Ankle and Foot Manual Muscle Testing Left Dorsiflexion (L4) 3+ Fair+ Plantarflexion (S1) 3+ Fair+ Right Dorsiflexion (L4) 3+ Fair+ Plantarflexion (S1) 3+ Fair+ PT-OP-Q Treatments Start: 09/24/22 09:30 Freq: Status: Active Protocol: Document 02/15/24 13:46 [facility] (Rec: 02/15/24 14:34 [facility] [id number]) Cardio Equipment Recumbent Stepper (Sci-Fit) Duration (Minutes) 5 Resistance 1 Seat Position 13 Other .47, RPM 42 Therapeutic Exercises Supine Exercises supine clam Equipment Used L2 TB Reps/Minutes 10x hip/knee flex/ext Supine Exercise Name in PT Side bilateral Reps/Minutes 5 reps x2 sets alteranating each LE Comments cued tactile> min A support adduction. bridge Resistance AROM Equipment Used 65 cm ball Reps/Minutes 10x reps heel dig Equipment Used 65 cm therapy ball Reps/Minutes 10x hip abd Supine Exercise Name with manual resistance Reps/Minutes 10x chelle Comments mod assist to hold leg off table trunk rotation Supine Exercise Name self LS & TS stretch Side bilateral Resistance AROM Equipment Used on mat table Reps/Minutes 10x Comments Good mid thoracic and QL stretch&ROM- post manual IT band stretch Reps/Minutes 2x30 Comments manual figure 4 Resistance 2# leg wt Reps/Minutes x10 piriformis stretch Side bilateral Resistance manual Reps/Minutes 60 Comments cued for sequencing ROM supported- good stretch LTR Side bilateral Resistance TB #2 therapist above knees Equipment Used 65 cm ball Reps/Minutes x10 Comments cued slower pacing rotation hip flexor stretch Supine Exercise Name self application Side bilateral Resistance mat table BLEs off edge ( perpendicular to EOtable) Reps/Minutes 60 Comments good feedback hip flexor stretch SKTC Supine Exercise Name SKTC and ER Side bilateral Reps/Minutes 2x30 Comments manual HS stretch Side bilateral Resistance supine manual Reps/Minutes 60 Comments good feedback stretch Sitting Exercises reverse crunch Equipment Used Dynadisc Reps/Minutes 10x may Sitting Exercise Name arms across chest Resistance 2# leg wt Equipment Used mesh chair & yellow disc Reps/Minutes 10 reps x2 sets Comments good core tiring STS Reps/Minutes 5x Comments after first 2 reps unable to achieve full knee extension, mod UE use overhead press Equipment Used wand Reps/Minutes 10x2 LAQ Sitting Exercise Name arms across chest Resistance leg wt Equipment Used w/c yellow disc, therapist hand target kick to Reps/Minutes 5SH x8 reps, 2# Comments reports inferior patella during holds, challenge bal PT-OP-T Assessment and Plan Start: 09/24/22 09:30 Freq: Status: Active Protocol: Document 02/15/24 13:46 [facility] (Rec: 02/15/24 14:34 [facility] [id number]) Physical Therapy Assessment Goals Three Impairment pain right shoulder and low back, right knee Impairment diffiuculty performing ADL's due to pain and pain in right shoulder limits gait due to heavy use of walker Housecalls Nurse Goal (LTG) Patient to report at least 50% decrease in pain with all usual activities and be independent with HEP for purposes of core stab, shoulder strengthening and stab 12/24/22: patient reported decrease in shoulder pain during vacation with not having to wheel herself (used power w/c), but has increased since starting to wheel again. Dec c/o LBP. Goal progress 02/18/23: reports decrease in shoulder pain to 0-4/10. Hadn 't been having back pain until exacerbation 2 weeks ago which appears QL. 05/18/23: goal progress with both shoulder and back pain 08/09/23: good goal progress, mostly met. 11/10/23: spasming in mucles above hips 4/10, lasts 1-2 secs, no pain in shoulders 02/15/24: pain shoulder 0-2/10 , low back pain ok, especially with new bed, right knee pain improved. LTG Duration goal met One Impairment gait dysfunction Impairment 2 min walk test 127 ft, not able to tolerate 6 min walk test due to fatigue UE's from supporting body on walker and LE fatigue requiring 2 brief standing breaks, needing to stop at 2 min Short Term Goal (STG) Improve 2 min walk test to at least 150 ft as measure of improved functional gait 12/24/22: only able to ambulate 75 ft today and experienced giving way of left knee [facility] through gait requiring mod assist to correct. 02/18/23: 2 min walk test 68 ft today, limited due to back pain and left leg giving way requiring her to sit 05/18/23: goal abandoned. See LTG STG Duration goal abandoned. Senior Living Goal (LTG) Patient able to tolerate 6 min walk test with gait distance of at least 300 ft as measure of improved functional gait 05/18/23: goal modification due to inability to reach this goal: New goal: patient able to tolerate 3 min walk test and walk a distance of at least 150 feet. (current max is 109 ft) 08/09/23: patient has been more limited in her walking tolerance due to increased weakness in her legs related to her MS 11/10/23: distance for walking remains limited due to weakness in LE's, fatigue from UE's holding her up, right knee pain today. 02/15/24: gait distance 73 ft today LTG Duration 02/15/24 Four Impairment weakness Impairment 5x sit to stand test 15 sec with moderate use of hands moderate core muscle weakness with less than anti-gravity strength Short Term Goal (STG) Patient to be independent and compliant with updated HEP for purposes of LE and trunk muscle strengthening 12/24/22: patient was on vacation 1 month, not as compliant, noting dec functional strength today. HEP has been updated. Goal progress 02/18/23: patient compliant with HEP, ongoing progression STG Duration goal met Housecalls Nurse Goal (LTG) Patient able to perform 5x sit to stand test in 10 sec as measure of improved functional LE strength and demonstrate 1 grade improvement in trunk muscle strength for improved safety with ADL performance 02/18/23: 10 sec today with 5x sit to stand. Noting improved functional core strength, good goal progress 05/18/23: not able to retest due to patient activity intolerance today due to esophageal stenosis 08/09/23: improved ability since last retested, has had surgery for espophageal stenosis. 13 seconds today vs unable to perform last session 11/10/23: 14.1 first trial 10.9 sec second trial Hip flex 3+/5R 4-/5 , ab2-/5 R 2+-/5 ad 2+/5R 3+/5L , ext Knee ext 4-/5R, 4+/5L , flex 4 -/5 R, 4+/5 L Ankle df 4-/5R, 4/5 pf 4/5R, 4+/5L, inv 3+/5R, 4/5 L, ev 3+ /5R 4+/5 L 02/15/24: 5x sit to stand 16 sec. Strength unchanged. 02/15/24: 5x sit to stand 16 sec. No change in strength. LTG Duration 02/15/24 Two Impairment balance dysfunction Impairment Tinetti gait and balance assessment 11/16 indicating patient at high risk for falls static standing 44 sec without holding on Short Term Goal (STG) Patient to be independent and compliant with gait and balance HEP 12/24/22: as above not as compliant to HEP and not ambulating while on vacation 02/18/23: 41 sec standing, limited by back pain 05/18/23: unable to retest due to esophageal stenosis with dec activity tolerance today 08/09/23: has had more limited standing tolerance due to weakness from MS, 16 sec today STG Duration 12/21/23 Housecalls Nurse Goal (LTG) Improve Tinetti gait and balance assessment score to moderate fall risk range to improve safety in the home and community improve static standing balance to at least 60 sec 11/10/23: 44 sec, improved over last testing 02/15/24: no change LTG Duration 02/15/24 Assessment Summary Assessment Patient progress has plateaued at this time, she is independent with HEP and recommend she continue and try to increase compliance. She anticipates a surgery again soon for esophageal stricture. Also will be moving to a new house with her mother and aunt; one level. Decision to discharge patient from PT today; patient in agreement. May benefit from further PT in a few months after her surgery and move depending on function and therapy needs. Physical Therapy Plan Frequency and Duration Frequency of Treatment 1x/Week Duration of treatment (weeks) 12 Plan of Care Start Date 02/10/24 Plan of Care End Date 02/15/24 Discharge Physical Therapy Discharge Reasons Plateau in Progress Discharge Comments Pt. independent with HEP, encouraged increased compliance.
--- NOTE | 2024-02-15 16:00 | PT.OPDS ---
Current Diagnoses Multiple sclerosis (02/15/24) Visit Care Team Role Provider Type Elizabeth Alonso DO Primary Care Provider Physician Specialty: Family Practice Address: [address] [place] [address], [address], [address] Email: [email or web address] Rehan Zacarias MD Family Provider Non-Staff Specialty: Internal Medicine Address: [address] [place] [address], [facility] [address], [address] Email: Rufino Umaña MD Attending Provider Non-Staff Referring Provider Specialty: Psychiatry Address: [address] [place] [address], [facility] [address], [address] Email: Visit Number Visit Number [id number] Discharge Summary PT-OP-B Current Condition Start: 09/24/22 09:30 Freq: Status: Active Protocol: Document 12/07/23 13:44 SAK (Rec: 12/07/23 14:40 [facility] [id number]) Current Condition History of Current Condition Onset Date March 2019 Current Complaints weakness due to MS, right shoulder pain, LBP History of Current Condition history MS with worsening weakness, as well as right shoulder pain (patient right handed). Patient has caregiver who assists her primarily with household tasks, HEP, walking. She uses a 4WW to walk short diestances (approx 30 feet) in the home, manual w /c for community mobility. No recent falls, but has history of falls. Reports was evaluated for power wheelchair recently but was denied. C/o right shoulder pain and tightness especially with reaching and propelling manual w/c. Well known to this PT for both land and aquatic- based PT. Prior Treatments and Tests prior PT; land and aquatic Future Testing and Treatments Planned nothing planned yet PT-OP-C Subjective Start: 09/24/22 09:30 Freq: Status: Active Protocol: Document 02/15/24 13:46 SAK (Rec: 02/15/24 14:34 [facility] [id number]) OP-PT Subjective Patient Comments Patient Comments Now has nightime brace for hand, has been trying to stand more, pain improved everywhere except right hand. PT-OP-D Balance Start: 09/24/22 09:30 Freq: Status: Active Protocol: Document 09/24/22 09:06 [facility] (Rec: 09/28/22 11:39 [facility] [id number]) Tinetti Balance Assessment Sitting Balance Sitting Balance Steady, safe Standing Balance Immediate Standing Balance Steady with support Turning Step Pattern Turning 360 Degrees Discontinuous steps Sitting Down Sitting Down Uses arms or unsteady Gait and Step Initiation of Gait Hesitancy, mult. attempts Right Foot Step Length Does not pass stance ft. Right Foot Step Height Does not clear floor Left Foot Step Length Does not pass stance foot Left Foot Step Height Does not clear floor Step Description Step Symmetry Step length appears equal Step Continuity Stopping or discontinuity Gait Description Path Description Mild/moderate deviation Trunk Description Marked sway or uses aide Walking Stance Heels apart Scoring and Interpretation Tinetti Composite Score (points) 5 PT-OP-E Functional Tests Start: 09/24/22 09:30 Freq: Status: Active Protocol: Document 09/24/22 09:06 [facility] (Rec: 09/28/22 11:39 [facility] [id number]) Functional Tests 2 Minute Walk Test Distance 127 Device Used 4WW PT-OP-G Mobility & Gait Start: 09/24/22 09:30 Freq: Status: Active Protocol: Document 09/24/22 09:06 [facility] (Rec: 09/28/22 11:39 [facility] [id number]) OP Mobility Evaluation Bed Mobility Supine to and from Sit indep Transfers Bed to Chair Transfers indep Car Transfers assisted Floor Transfers not performed OP Gait Assessment Gait Gait Assistance Required: Minimum Assistance Distance (Feet) 127 Assistive Devices Assistive Device Gait Belt,Front Wheeled Walker Orthotic/Prosthetic Devices or Brace: No Gait Deviations General Gait Pattern Decreased Stride Length, Decreased Feet Clearance, Flexed Trunk Factors Limiting Gait Function Factors Limiting Gait Function Abnormal Tonal Influences, Decreased Activity Tolerance, Decreased Strength,Pain Stair Climbing Evaluation Comments Stair Climbing Comments unable PT-OP-H Neuro Start: 09/24/22 09:30 Freq: Status: Active Protocol: Document 09/24/22 09:06 [facility] (Rec: 09/28/22 11:39 [facility] [id number]) Sensation Evaluation Gross Sensation Gross Sensation Left LE Impaired,Right LE Impaired,Trunk Impaired PT-OP-J Posture/Palpation/Skin Start: 09/24/22 09:30 Freq: Status: Active Protocol: Document 09/24/22 09:06 [facility] (Rec: 09/28/22 11:39 [facility] [id number]) Posture Evaluation Position Sitting Head/C-Spine Posture Forward Head Shoulder Posture (L) Rounded,(R) Rounded Shoulder Subluxation Position (L) Anterior,(R) Anterior Scapula Posture (L) Protracted,(R) Protracted Arm Posture (L) Internally Rotated,(R) Internally Rotated PT-OP-K Range of Motion Start: 09/24/22 09:30 Freq: Status: Active Protocol: Document 09/24/22 09:06 [facility] (Rec: 09/28/22 11:39 [facility] [id number]) Hip Goniometric Range of Motion Hip chelle Straight Leg Raise 145 Hip ROM Limitations Hip ROM Limitations Soft Tissue Tightness Ankle and Foot Goniometric Range of Motion Ankle and Foot chelle Dorsiflexion with Knee Flexed 0 Ankle and Foot ROM Limitations ROM Limitations Soft Tissue Tightness PT-OP-M Strength Start: 09/24/22 09:30 Freq: Status: Active Protocol: Document 09/24/22 09:31 [facility] (Rec: 09/24/22 10:22 [facility] [id number]) Trunk Strength Trunk Manual Muscle Testing Flexion 3- Fair- Extension 2+ Poor+ Rotation Left 3- Fair- Rotation Right 3- Fair- Lateral Flexion Left 3- Fair- Lateral Flexion Right 3- Fair- Scapula Strength Scapula Manual Muscle Testing chelle Elevation (C4) 4+ Good+ Adduction 3+ Fair+ Abduction 3 Fair Depression 3+ Fair+ Shoulder Strength Shoulder Manual Muscle Testing Left Flexion 4 Good Extension 4 Good Abduction (C5) 4 Good Adduction 4 Good External Rotation 4 Good Internal Rotation 4 Good Horizontal Abduction 4 Good Horizontal Adduction 4 Good Right Flexion 4 Good Extension 4 Good Abduction (C5) 4 Good Adduction 4 Good External Rotation 4 Good Internal Rotation 4 Good Horizontal Abduction 4 Good Horizontal Adduction 4 Good Elbow/Forearm Strength Elbow and Forearm Manual Muscle Testing Left Flexion (C6) 4 Good Extension (C7) 4 Good Right Comments pain with resisted flex,ab,ER Hip Strength Hip Manual Muscle Testing Left Flexion (L2) 4- Good- Abduction 3- Fair- Adduction 3+ Fair+ Right Flexion (L2) 4- Good- Abduction 2+ Poor+ Adduction 3+ Fair+ Knee Strength Knee Manual Muscle Testing Left Flexion (S2) 4 Good Extension (L3) 4 Good Right Flexion (S2) 4- Good- Extension (L3) 4- Good- Ankle/Foot Strength Ankle and Foot Manual Muscle Testing Left Dorsiflexion (L4) 3+ Fair+ Plantarflexion (S1) 3+ Fair+ Right Dorsiflexion (L4) 3+ Fair+ Plantarflexion (S1) 3+ Fair+ PT-OP-T Assessment and Plan Start: 09/24/22 09:30 Freq: Status: Active Protocol: Document 02/15/24 13:46 [facility] (Rec: 02/15/24 14:34 [facility] [id number]) Physical Therapy Assessment Goals Three Impairment pain right shoulder and low back, right knee Impairment diffiuculty performing ADL's due to pain and pain in right shoulder limits gait due to heavy use of walker Usp Goal (LTG) Patient to report at least 50% decrease in pain with all usual activities and be independent with HEP for purposes of core stab, shoulder strengthening and stab 12/24/22: patient reported decrease in shoulder pain during vacation with not having to wheel herself (used power w/c), but has increased since starting to wheel again. Dec c/o LBP. Goal progress 02/18/23: reports decrease in shoulder pain to 0-4/10. Hadn 't been having back pain until exacerbation 2 weeks ago which appears QL. 05/18/23: goal progress with both shoulder and back pain 08/09/23: good goal progress, mostly met. 11/10/23: spasming in mucles above hips 4/10, lasts 1-2 secs, no pain in shoulders 02/15/24: pain shoulder 0-2/10 , low back pain ok, especially with new bed, right knee pain improved. LTG Duration goal met One Impairment gait dysfunction Impairment 2 min walk test 127 ft, not able to tolerate 6 min walk test due to fatigue UE's from supporting body on walker and LE fatigue requiring 2 brief standing breaks, needing to stop at 2 min Short Term Goal (STG) Improve 2 min walk test to at least 150 ft as measure of improved functional gait 12/24/22: only able to ambulate 75 ft today and experienced giving way of left knee shelter through gait requiring mod assist to correct. 02/18/23: 2 min walk test 68 ft today, limited due to back pain and left leg giving way requiring her to sit 05/18/23: goal abandoned. See LTG STG Duration goal abandoned. Plumbing Drafter Goal (LTG) Patient able to tolerate 6 min walk test with gait distance of at least 300 ft as measure of improved functional gait 05/18/23: goal modification due to inability to reach this goal: New goal: patient able to tolerate 3 min walk test and walk a distance of at least 150 feet. (current max is 109 ft) 08/09/23: patient has been more limited in her walking tolerance due to increased weakness in her legs related to her MS 11/10/23: distance for walking remains limited due to weakness in LE's, fatigue from UE's holding her up, right knee pain today. 02/15/24: gait distance 73 ft today LTG Duration 02/15/24 Four Impairment weakness Impairment 5x sit to stand test 15 sec with moderate use of hands moderate core muscle weakness with less than anti-gravity strength Short Term Goal (STG) Patient to be independent and compliant with updated HEP for purposes of LE and trunk muscle strengthening 12/24/22: patient was on vacation 1 month, not as compliant, noting dec functional strength today. HEP has been updated. Goal progress 02/18/23: patient compliant with HEP, ongoing progression STG Duration goal met Plumbing Drafter Goal (LTG) Patient able to perform 5x sit to stand test in 10 sec as measure of improved functional LE strength and demonstrate 1 grade improvement in trunk muscle strength for improved safety with ADL performance 02/18/23: 10 sec today with 5x sit to stand. Noting improved functional core strength, good goal progress 05/18/23: not able to retest due to patient activity intolerance today due to esophageal stenosis 08/09/23: improved ability since last retested, has had surgery for espophageal stenosis. 13 seconds today vs unable to perform last session 11/10/23: 14.1 first trial 10.9 sec second trial Hip flex 3+/5R 4-/5 , ab2-/5 R 2+-/5 ad 2+/5R 3+/5L , ext Knee ext 4-/5R, 4+/5L , flex 4 -/5 R, 4+/5 L Ankle df 4-/5R, 4/5 pf 4/5R, 4+/5L, inv 3+/5R, 4/5 L, ev 3+ /5R 4+/5 L 02/15/24: 5x sit to stand 16 sec. Strength unchanged. 02/15/24: 5x sit to stand 16 sec. No change in strength. LTG Duration 02/15/24 Two Impairment balance dysfunction Impairment Tinetti gait and balance assessment 11/16 indicating patient at high risk for falls static standing 44 sec without holding on Short Term Goal (STG) Patient to be independent and compliant with gait and balance HEP 12/24/22: as above not as compliant to HEP and not ambulating while on vacation 02/18/23: 41 sec standing, limited by back pain 05/18/23: unable to retest due to esophageal stenosis with dec activity tolerance today 08/09/23: has had more limited standing tolerance due to weakness from MS, 16 sec today STG Duration 12/21/23 Plumbing Drafter Goal (LTG) Improve Tinetti gait and balance assessment score to moderate fall risk range to improve safety in the home and community improve static standing balance to at least 60 sec 11/10/23: 44 sec, improved over last testing 02/15/24: no change LTG Duration 02/15/24 Assessment Summary Assessment Patient progress has plateaued at this time, she is independent with HEP and recommend she continue and try to increase compliance. She anticipates a surgery again soon for esophageal stricture. Also will be moving to a new house with her mother and aunt; one level. Decision to discharge patient from PT today; patient in agreement. May benefit from further PT in a few months after her surgery and move depending on function and therapy needs. Physical Therapy Plan Frequency and Duration Frequency of Treatment 1x/Week Duration of treatment (weeks) 12 Plan of Care Start Date 02/10/24 Plan of Care End Date 02/15/24 Discharge Physical Therapy Discharge Reasons Plateau in Progress Discharge Comments Pt. independent with HEP, encouraged increased compliance.
== END 2024-06-22 13:59 | disposition home or self-care (01) ==
LOC: PHYS 13:45
PROVIDERS: Family Provider Student in an Organized Health Care Education/Training Program; PCP Family Medicine; Referring Provider Internal Medicine; Visit Provider Internal Medicine
DX: G35 Multiple sclerosis (principal)
CPT/HCPCS: 97110; 97112; 97116; 97140; 97162; 97530; 97535

== ENCOUNTER → 2024-03-02 14:19 | Outpatient (CLI) | payer MEDICARE, MEDICAID, SELFPAY ==
--- NOTE | 2024-03-02 | DI.MG.S_ITS ---
BILATERAL DIGITAL SCREENING MAMMOGRAM 3D/2D WITH CAD: 03/02/2024 CLINICAL: Routine screening. Comparison is made to exams dated: 03/01/2023 mammogram, 02/26/2022 mammogram, and 02/06/2021 mammogram - [facility]. The breasts are almost entirely fatty (category a/<25% glandular tissue). Current study was also evaluated with a Computer Aided Detection (CAD) system. There are benign calcifications in both breasts. No significant masses, calcifications, or other findings are seen in either breast. There has been no significant interval change. IMPRESSION: BENIGN There is no mammographic evidence of malignancy. A 1 year screening mammogram is recommended. Based on the Tyrer Cuzick model (a risk assessment model) the patient's lifetime risk is 6.3% and her 10 year risk is 1.1%. According to the ACR, ACS, and NCCN guidelines, an annual breast MRI exam along with mammogram is recommended if the patient's lifetime risk is 20% or greater. This exam was interpreted at Station ID: [id number]. NOTE: For mammograms, a report in lay terms will be sent to the patient. Approximately 15% of breast malignancies will not be visualized mammographically. In the management of a palpable breast mass, a negative mammogram must not discourage biopsy of a clinically suspicious lesion. Electronically Signed By: oDra singh/jennifer:03/02/2024 15:49:31 letter sent: Normal Exam ACR BI-RADS Category 2: Benign
== END ==
PROVIDERS: Family Provider Student in an Organized Health Care Education/Training Program; PCP Family Medicine; Referring Provider Family Medicine; Visit Provider Family Medicine
DX: Z12.31 Encounter for screening mammogram for malignant neoplasm of breast (principal); R92.313 Mammographic fatty tissue density, bilateral breasts
CPT/HCPCS: 77063; 77067

== ENCOUNTER → 2025-02-08 11:34 | Outpatient (CLI) | payer MEDICARE, MEDICAID, SELFPAY ==
[2025-02-08 12:00] LABS: Add Manual Diff / Slide Review NO; Hematocrit 38.6 % (36-46); Hemoglobin 13.3 g/dL (12.0-16.0); Lymphocytes Absolute Auto 400 /uL (1100-4500); Mean Corpuscular HGB Conc 34.4 % (30-36); Mean Corpuscular Hemoglobin 30.7 PG (26-34); Mean Corpuscular Volume 89.4 fL (80-100); Platelet Count 381 X10^3/uL (150-400)
[2025-02-08 12:07] LABS: Hemoglobin A1C% w Est Avg Glu 5.4 % (4.0-6.0)
[2025-02-08 12:25] LABS: Alanine Aminotransferase 48 IU/L (<35); Albumin 3.9 g/dL (3.5-5.0); Albumin Globulin Ratio 1.4 (1.0-2.8); Alkaline Phosphatase 90 U/L (38-126); Blood Urea Nitrogen 11 mg/dL (7-17); Calcium 8.9 mg/dL (8.4-10.2); Carbon Dioxide 26 mmol/L (22-32); Chloride 105 mmol/L (98-107); Cholesterol 270 mg/dL (140-199); Estimated Glomerular Filt Rate > 60 mL/min (>60); Globulin 2.8 g/dL (1.7-4.1); Glucose 101 mg/dL (70-99); HDL Cholesterol 50 mg/dL (40-60); HEMOLYSIS < 15 (0-50); Potassium 4.1 mmol/L (3.4-5.1); Sodium 139 mmol/L (137-145); Total Protein 6.7 g/dL (6.3-8.2); Triglycerides 161 mg/dL (35-150)
== END ==
PROVIDERS: PCP Family Medicine; Referring Provider Family Medicine; Visit Provider Family Medicine
DX: Z13.1 Encounter for screening for diabetes mellitus (principal); Z00.00 Encounter for general adult medical examination without abnormal findings; E78.2 Mixed hyperlipidemia; I10 Essential (primary) hypertension
CPT/HCPCS: 36415; 80053; 80061; 83036; 85025